=== PATIENT | female | born 1975 | race Caucasian/White ===

== ENCOUNTER 2020-05-26 20:30 | Emergency (ER) | payer BC, MEDICARE, SELFPAY ==
[2020-05-26 20:48] VITALS: BP 111/51; PULSE 88; PULSE 90; RESP 30; RESP 32; TEMP 36.8; O2SAT 95; O2SAT 96; BMI 48.5
--- NOTE | 2020-05-26 20:49 | XR_ITS ---
EXAMINATION: XR CHEST CLINICAL INFORMATION: with shortness of breath COMPARISON: 04/07/2020 TECHNIQUE: Frontal view of the chest was obtained. FINDINGS: Aside from some minimal right basilar atelectasis, no significant abnormality is noted involving the heart, lungs, mediastinum, bony thorax or soft tissues. IMPRESSION: No acute intrathoracic disease.
--- NOTE | 2020-05-26 20:49 | ECG_ITS ---
Test Reason : CP, SOB Blood Pressure : / mmHG Vent. Rate : 091 BPM Atrial Rate : 091 BPM P-R Int : 184 ms QRS Dur : 088 ms QT Int : 370 ms P-R-T Axes : 045 015 061 degrees QTc Int : 455 ms Normal sinus rhythm Normal ECG No previous ECGs available Referred By: Dalia Martínez Electronically Signed By:EMMANUELLE HEAD
--- NOTE | 2020-05-26 20:51 | ED_ITS ---
HPI - Chest Pain General Chief Complaint: Chest Pain Stated Complaint: SOB/CHEST PAIN Time Seen by Provider: 05/26/20 20:40 Source: patient History of Present Illness HPI narrative: Patient is a 45-year-old female with a history of prediabetes, hypertension, high cholesterol, history of smoking. Presents today with having chest pain. Patient claims the chest pain has been dull in nature radiates to her neck it is associated with no shortness of breath it is not associated with exertion. No fever no chills no coughing or congestion or upper respiratory sy mptoms. No diaphoresis. No travel history. No previous history of risk stratification. Patient denies any history of leg pain. No history of blood clots. No history of pulmonary emboli. No family history of pulmonary emboli. Patient's father did have a heart attack in his 40s. MD complaint: chest pain Onset (ago): hour(s) (8) Pain location: substernal Severity: moderate Pain scale (0-10): 5 Quality: tightness Risk Factors Coronary artery disease risk factors: diabetes, smoking history, hyperlipidemia, hypertension and family history of CAD before age 50 Thoracic aortic dissection risk factors: none Pulmonary embolism risk factors: morbid obesity Related Data On Oral Contraceptives: No Allergies Allergy/AdvReac Type Severity Reaction Status Date / Time Penicillins [PENICILLINS] Allergy Severe ANAPHYLAXIS Unverified 05/12/20 16:58 adhesive [ADHESIVE] Allergy Unknown RASH Unverified 05/12/20 16:58 artichoke [ARTICHOKE] Allergy Unknown RASH Unverified 05/12/20 16:58 carbamazepine [From TEGRETOL] Allergy Unknown MIGRAINES Unverified 05/12/20 16:58 cariprazine [From VRAYLAR] Allergy Unknown LEG CRAMPS Unverified 05/12/20 16:58 fentanyl [FENTANYL] Allergy Unknown RASH Unverified 05/12/20 16:58 lamotrigine [From LAMICTAL] Allergy Unknown RASH Unverified 05/12/20 16:58 lithium [LITHIUM] AdvReac Severe tremor and Unverified 05/12/20 16:58 falls Review of Systems Review of Systems: Yes all other systems are reviewed and are negative Eyes: Eyes: Reports as per HPI ENT: Reports system reviewed and no additional complaints, except as documented Cardiovascular: Cardiovascular: Reports as per HPI Respiratory: Respiratory: Reports as per HPI Gastrointestinal: Gastrointestinal: Reports as per HPI and Reports no additional gastrointestinal complaints Musculoskeletal: Musculoskeletal: Reports no additional musculoskeletal complaints Neurologic: Reports system reviewed and no additional complaints, except as documented Endocrine: Endocrine: Reports no additional endocrine complaints Hematologic/Lymphatic: Hematologic/Lymphatic: Reports no additional hematologic/lymphatic complaints Allergic/Immunologic: Allergic/Immunologic: Reports no additional allergic/immunologic complaints [facility] Social History Social History Alcohol intake: current Alcohol intake frequency: holidays/special occasions only Smoking Status: Current every day smoker Smoked in Last 30 Days: Yes Use of substances other than those prescribed or required for medical reasons: Yes Substance Use Type: Marijuana Advance Directives: No Advance Directives Information Provided: Yes Physical Exam Vital Signs and I&O and Narrative: Vital Signs and I&O: Vital Signs Temp 98.1 F 05/26/20 21:45 Pulse 85 05/26/20 21:45 Resp 16 05/26/20 21:45 BP 129/71 05/26/20 21:45 Pulse Ox 96 05/26/20 20:48 Intake & Output 05/26/20 05/26/20 05/27/20 06:59 18:59 06:59 Weight 140.614 kg Body Mass Index 48.5 Const: General: cooperative Orientation/consciousness: patient oriented x3 HENMT: Head: Yes normal to inspection General nose exam: Normal external nose present Eyes: General: appearance normal, both eyes and all related structures Neck: Neck: Yes normal visual inspection Chest: Chest palpation & inspection: normal inspection of the chest Resp: Effort & Inspection: normal respiratory effort Auscultation: clear to auscultation bilaterally Cardio: Jugular venous distension: no JVD Bruits: no abdominal aortic bruits GI: Inspection: Yes normal to inspection Palpation (GI): No Abdominal aortic bruit present and Soft to palpation Auscultation: normal bowel sounds : General: Yes no CVA tenderness Back/Spine/Pelvis: Back: no CVA tenderness Skin: General skin exam: no rashes or lesions noted Neuro: General: patient oriented x3 Extrem: General: Yes normal to inspection Psych: Appearance: grossly normal MDM - Chest Pain MDM Narrative Medical decision making narrative: Patient's chest pain atypical. However does have multiple cardiac risk factors. Patient's troponin is negative and pain is greater than 6 hours. Patient's D-dimer is less than 200 in the setting of low risk for PE patient unlikely to have pulmonary emboli. Patient's chest x-ray showed no evidence of pneumothorax no pneumonia. Will discharge patient home close follow-up on an outpatient basis. Differential Diagnosis Differential diagnosis: Likely fracture of rib, pneumothorax, stable angina, unstable angina pectoris, atypical chest pain, st elevation myocardial infarction and costochondritis Medical Records Data Attestation: I reviewed the patient's medical records. Lab Data Attestation: I reviewed the patient's lab results. Result diagrams: 05/26/20 21:27 05/26/20 21:27 Labs: Lab Results 05/26/20 05/26/20 05/26/20 Range/Units 21:27 21: 21: WBC 11.2 H (4.8-10.8) X10*3/uL RBC 4.02 L (4.20-5.50) X10*6/uL Hgb 12.4 (12.0-16.0) g/dl Hct 36.9 L (37-47) % MCV 91.8 (80-98) fL MCH 30.8 (27.0-33.0) pg MCHC 33.6 (31.0-35.0) g/dl RDW 13.2 (11.0-16.0) % Plt Count 250 (160-400) X10*3/uL MPV 9.6 (9.4-12.3) fL Immature Gran % (Auto) 0.3 (0.0-0.4) % Neut % (Auto) 61.8 (45-73) % Lymph % (Auto) 30.7 (20-40) % [place] % (Auto) 5.6 (2-11) % Eos % (Auto) 1.3 (0-4) % Baso % (Auto) 0.3 (0-2) % Neut # (Auto) 6.9 (2.0-8.3) X10*3/uL Lymph # (Auto) 3.4 (1.2-4.9) X10*3/uL [place] # (Auto) 0.6 (0.1-1.2) X10*3/uL Eos # (Auto) 0.1 (0.0-0.4) X10*3/uL Baso # (Auto) 0.0 (0.0-0.2) X10*3/uL Abs Immat Gran (auto) 0.03 (0.00-0.03) X10*3/uL Absolute Nucleated RBC 0.000 (0.0-0.012) X10*3/uL Nucleated RBC % (auto) 0.0 (0.0-0.2) /100WBC D-Dimer < 200 NG/ML Hold Blue Top SEE NOTE Sodium 141 (135-145) mmol/L Potassium 3.9 (3.3-5.1) mmol/l Chloride 105 (96-108) mmol/L Carbon Dioxide 27 (22-29) mmol/L Anion Gap 13 (12-20) BUN 10 (9-16) mg/dL Creatinine 0.78 (0.5-1.4) mg/dL Estim Creat Clear Calc 134.0 Estimated GFR > 60 Random Glucose 120 H (60-115) mg/dL Calcium 8.3 L (8.4-10.2) mg/dL Troponin I High Sens (<3.5-17.0) ng/L B-Natriuretic Peptide (<100) pg/mL Urine Color Urine Appearance Urine pH (5.0-8.0) Ur Specific [place] (1.005-1.025) Urine Protein (NEG-TRACE) MG/DL Urine Glucose (UA) (NEG) MG/DL Urine Ketones (NEG) MG/DL Urine Blood (NEG) Urine Nitrite (NEG) Ur Leukocyte Esterase (NEG) 05/26/20 05/26/20 Range/Units 21:27 21:53 WBC (4.8-10.8) X10*3/uL RBC (4.20-5.50) X10*6/uL Hgb (12.0-16.0) g/dl Hct (37-47) % MCV (80-98) fL MCH (27.0-33.0) pg MCHC (31.0-35.0) g/dl RDW (11.0-16.0) % Plt Count (160-400) X10*3/uL MPV (9.4-12.3) fL Immature Gran % (Auto) (0.0-0.4) % Neut % (Auto) (45-73) % Lymph % (Auto) (20-40) % [place] % (Auto) (2-11) % Eos % (Auto) (0-4) % Baso % (Auto) (0-2) % Neut # (Auto) (2.0-8.3) X10*3/uL Lymph # (Auto) (1.2-4.9) X10*3/uL [place] # (Auto) (0.1-1.2) X10*3/uL Eos # (Auto) (0.0-0.4) X10*3/uL Baso # (Auto) (0.0-0.2) X10*3/uL Abs Immat Gran (auto) (0.00-0.03) X10*3/uL Absolute Nucleated RBC (0.0-0.012) X10*3/uL Nucleated RBC % (auto) (0.0-0.2) /100WBC D-Dimer NG/ML Hold Blue Top Sodium (135-145) mmol/L Potassium (3.3-5.1) mmol/l Chloride (96-108) mmol/L Carbon Dioxide (22-29) mmol/L Anion Gap (12-20) BUN (9-16) mg/dL Creatinine (0.5-1.4) mg/dL Estim Creat Clear Calc Estimated GFR Random Glucose (60-115) mg/dL Calcium (8.4-10.2) mg/dL Troponin I High Sens < 3.5 (<3.5-17.0) ng/L B-Natriuretic Peptide 16 (<100) pg/mL Urine Color YELLOW Urine Appearance CLEAR Urine pH 6.5 (5.0-8.0) Ur Specific [place] 1.025 (1.005-1.025) Urine Protein NEG (NEG-TRACE) MG/DL Urine Glucose (UA) NEG (NEG) MG/DL Urine Ketones 5 (NEG) MG/DL Urine Blood NEG (NEG) Urine Nitrite NEG (NEG) Ur Leukocyte Esterase NEG (NEG) ECG Data ECG #1: Attestation: I personally reviewed and interpreted this ECG as follows: ECG interpretation date: 05/26/20 Interpretation: sinus heart rate of 90 OK QRS QT within normal limits there is no acute ST segment elevation noted. Scores Heart Score History: -0- slightly suspicious ECG: -0- normal Age: -0- < or = 45 Risk factory: -2- 3 or more risk factors or treated atherosclerosis Troponin: -0- < or = normal limit Score: 2 Risk: 1.7% Discharge Plan Discharge Clinical Impression: Chest pain, Atypical chest pain Patient Disposition: Home, Self-Care Instructions: Chest Pain (ED) Referrals: Christos Britt MD [Primary Care Provider] - 2 days
[2020-05-26 21:33] LABS: MANUAL DIFF FLAG NO
[2020-05-26 21:35] LABS: Basophils Percent Auto 0.3 % (0-2); Eosinophils Absolute Auto 0.1 X10*3/uL (0.0-0.4); Eosinophils Percent Auto 1.3 % (0-4); Hematocrit 36.9 % (37-47); Hemoglobin 12.4 g/dl (12.0-16.0); Imm Gran Abs Auto 0.03 X10*3/uL (0.00-0.03); Imm Gran Pct Auto 0.3 % (0.0-0.4); Lymphocytes Absolute Auto 3.4 X10*3/uL (1.2-4.9); Lymphocytes Percent Auto 30.7 % (20-40); Mean Corpuscular HGB Conc 33.6 g/dl (31.0-35.0); Mean Corpuscular Hemoglobin 30.8 pg (27.0-33.0); Mean Corpuscular Volume 91.8 fL (80-98); Mean Platelet Volume 9.6 fL (9.4-12.3); Monocytes Absolute Auto 0.6 X10*3/uL (0.1-1.2); Monocytes Percent Auto 5.6 % (2-11); Neutrophils Absolute Auto 6.9 X10*3/uL (2.0-8.3); Neutrophils Percent Auto 61.8 % (45-73); Platelet Count 250 X10*3/uL (160-400); Red Blood Count 4.02 X10*6/uL (4.20-5.50); Red Cell Distribution Width 13.2 % (11.0-16.0); White Blood Count 11.2 X10*3/uL (4.8-10.8)
[2020-05-26 21:45] VITALS: BP 129/71; PULSE 85; RESP 16; TEMP 36.7
[2020-05-26 21:52] LABS: D Dimer < 200 NG/ML
[2020-05-26 21:57] LABS: Anion Gap 13 (12-20); Blood Urea Nitrogen 10 mg/dL (9-16); Calcium 8.3 mg/dL (8.4-10.2); Carbon Dioxide 27 mmol/L (22-29); Chloride 105 mmol/L (96-108); Estimated Glomerular Filt Rate > 60; Glucose Random 120 mg/dL (60-115); Potassium 3.9 mmol/l (3.3-5.1); Sodium 141 mmol/L (135-145)
[2020-05-26] MEDS: Aspirin 81 MG TAB.CHEW 324 MG PO (21:58)
[2020-05-26 22:04] LABS: B Type Natriuretic Peptide 16 pg/mL (<100); Troponin-I High Sensitivity < 3.5 ng/L (<3.5-17.0)
[2020-05-26 22:04] LABS: Glucose Urine UA NEG (NEG); Leukocyte Esterase Urine NEG (NEG); Nitrite Urine NEG (NEG); PH 6.5 (5.0-8.0); Specific Gravity - Urine 1.025 (1.005-1.025); Urine Blood NEG (NEG); Urine Ketones 5 MG/DL (NEG); Urine Protein NEG (NEG-TRACE)
[2020-05-26 22:10] LABS: Appearance Urine CLEAR; Color Urine YELLOW
== END 2020-05-26 22:52 | disposition home or self-care (01) ==
PROVIDERS: Emergency Provider Emergency Medicine Emergency Medical Services; PCP Internal Medicine
DX: R07.89 Other chest pain (principal); I10 Essential (primary) hypertension; R73.03 Prediabetes; F17.200 Nicotine dependence, unspecified, uncomplicated
CPT/HCPCS: 36415; 71045; 80048; 81003; 83880; 84484; 85025; 85379; 93005; 93010; 99284

== ENCOUNTER 2020-06-01 09:39 | Outpatient (REF) | payer BC, MEDICARE, SELFPAY ==
[2020-06-01 10:33] LABS: MANUAL DIFF FLAG NO
[2020-06-01 10:40] LABS: Basophils Percent Auto 0.5 % (0-2); Eosinophils Absolute Auto 0.1 X10*3/uL (0.0-0.4); Eosinophils Percent Auto 0.6 % (0-4); Hematocrit 39.1 % (37-47); Hemoglobin 12.9 g/dl (12.0-16.0); Imm Gran Abs Auto 0.03 X10*3/uL (0.00-0.03); Imm Gran Pct Auto 0.3 % (0.0-0.4); Lymphocytes Absolute Auto 2.2 X10*3/uL (1.2-4.9); Mean Corpuscular Hemoglobin 30.7 pg (27.0-33.0); Mean Corpuscular Volume 93.1 fL (80-98); Mean Platelet Volume 9.8 fL (9.4-12.3); Monocytes Absolute Auto 0.4 X10*3/uL (0.1-1.2); Monocytes Percent Auto 4.8 % (2-11); Neutrophils Absolute Auto 6.1 X10*3/uL (2.0-8.3); Neutrophils Percent Auto 68.8 % (45-73); Platelet Count 262 X10*3/uL (160-400); Red Cell Distribution Width 13.3 % (11.0-16.0); White Blood Count 8.8 X10*3/uL (4.8-10.8)
[2020-06-07 16:35] LABS: Clozapine (Clozaril) 158 mcg/L; Norclozapine 106 mcg/L (25-400)
== END 2020-06-01 09:40 | disposition home or self-care (01) ==
LOC: HO.LABR 09:39
PROVIDERS: PCP Internal Medicine; Visit Provider Psychiatry & Neurology Psychiatry
DX: F31.4 Bipolar disorder, current episode depressed, severe, without psychotic features (principal)
CPT/HCPCS: 36415; 80159; 85025

== ENCOUNTER 2020-06-08 12:09 | Emergency (ER) | payer BC, MEDICARE, SELFPAY ==
[2020-06-08 14:20] VITALS: BP 135/78; PULSE 88; RESP 18; TEMP 37.1; O2SAT 97; BMI 48.5
--- NOTE | 2020-06-08 14:28 | ED_ITS ---
HPI - Abdominal Pain General Chief Complaint: Abdominal Pain Stated Complaint: stomach pain,vomiting Time Seen by Provider: 06/08/20 14:19 Source: patient Mode of arrival: ambulatory History of Present Illness HPI narrative: 45-year-old female with a past medical history of depression presenting to ED complaining of RLQ abdominal pain since yesterday with associated N/V. Reports decreased p.o. intake and constipation. Denies fever, chills, dysuria /hematuria MD elicited complaint: abdominal pain Related Data Allergies Allergy/AdvReac Type Severity Reaction Status Date / Time Penicillins [PENICILLINS] Allergy Severe ANAPHYLAXIS Verified 06/08/20 14:24 adhesive [ADHESIVE] Allergy Unknown RASH Verified 06/08/20 14:24 artichoke [ARTICHOKE] Allergy Unknown RASH Verified 06/08/20 14:24 carbamazepine [From TEGRETOL] Allergy Unknown MIGRAINES Verified 06/08/20 14:24 cariprazine [From VRAYLAR] Allergy Unknown LEG CRAMPS Verified 06/08/20 14:24 fentanyl [FENTANYL] Allergy Unknown RASH Verified 06/08/20 14:24 lamotrigine [From LAMICTAL] Allergy Unknown RASH Verified 06/08/20 14:24 lithium [LITHIUM] AdvReac Severe tremor and Verified 06/08/20 14:24 falls Review of Systems Review of Systems Constitutional: No Weight loss, No Fever, No Chills Cardiovascular: No Chest Pain, No SOB Respiratory: No Cough, No Sputum Gastrointestinal:+ Nausea, + Vomiting, No Diarrhea, + Constipation, + Abdominal pain Genitourinary: No Dysuria, No Urinary Frequency, No Hematuria, No Urgency, No Flank Pain, No Urinary Flow Changes Skin: No Skin Lesions, No rash Yes all other systems are reviewed and are negative Physical Exam Vital Signs: Vital Signs: Vital Signs Temp Pulse Resp BP Pulse Ox 06/08/20 16:44 16 06/08/20 16:18 98.3 F 88 16 120/72 98 06/08/20 14:20 98.8 F 88 18 135/78 97 Body Mass Index 48.5 Const: General: cooperative and healthy appearing Orientation/consciousness: patient oriented x3 Limitations: no limitations HENMT: Head: Yes normal to inspection Ears: hearing grossly normal bilaterally General nose exam: Normal external nose present Face and sinus: Yes normal facial exam Eyes: General: appearance normal, both eyes and all related structures EOM: EOMs intact bilaterally Neck: Neck: Yes normal visual inspection Resp: Effort & Inspection: normal respiratory effort Cardio: Rate: regular rate GI: Inspection: Yes normal to inspection Palpation (GI): Soft to palpation, Tenderness to palpation present (GI) in the epigastrum, in the RLQ and in the RUQ, no guarding and not rigid Skin: Rashes: no rashes Wounds: no wounds Neuro: General: patient oriented x3 Gait exam (Neuro): Normal gait present Extrem: General: Yes normal to inspection Course Course Course Narrative: -1632-- no leukocytosis, labs otherwise unremarkable, UA negative -- ED care transfer to [facility] pending CT MDM - Abdominal Pain MDM Narrative Medical decision making narrative: 45-year-old female with a past medical history of depression presenting to ED complaining of RLQ abdominal pain since yesterday with associated N/V. on exam VSS, NAD, abdomen soft diffusely tender greater in RLQ/ right side of abdomen. +R CVAT . Concern for appendicitis /cholecystitis /pancreatitis / possible renal stone. Rule out infectious / metabolic etiology. Lower concern for ovarian pathology/torsion Plan: Labs, UA, CT AP, symptomatic treatment/reassess Differential Diagnosis Differential diagnosis: Likely abdominal pain, acute appendicitis, bowel perforation, calculus of kidney, constipation, diverticulitis, gastroenteritis, gastritis, pancreatitis, peptic ulcer disease, renal colic and small bowel obstruction Lab Data Result diagrams: 06/08/20 15:06/08/20 15:01 Labs: Lab Results 06/08/20 06/08/20 06/08/20 Range/Units 15:01 15:01 15:01 WBC 9.4 (4.8-10.8) X10*3/uL RBC 4.31 (4.20-5.50) X10*6/uL Hgb 13.0 (12.0-16.0) g/dl Hct 39.4 (37-47) % MCV 91.4 (80-98) fL MCH 30.2 (27.0-33.0) pg MCHC 33.0 (31.0-35.0) g/dl RDW 12.9 (11.0-16.0) % Plt Count 257 (160-400) X10*3/uL MPV 9.5 (9.4-12.3) fL Immature Gran % (Auto) 0.3 (0.0-0.4) % Neut % (Auto) 65.2 (45-73) % Lymph % (Auto) 28.5 (20-40) % [place] % (Auto) 5.0 (2-11) % Eos % (Auto) 0.7 (0-4) % Baso % (Auto) 0.3 (0-2) % Lymph # (Auto) 2.7 (1.2-4.9) X10*3/uL [place] # (Auto) 0.5 (0.1-1.2) X10*3/uL Eos # (Auto) 0.1 (0.0-0.4) X10*3/uL Baso # (Auto) 0.0 (0.0-0.2) X10*3/uL Abs Immat Gran (auto) 0.03 (0.00-0.03) X10*3/uL Absolute Neuts (auto) 6.2 (2.0-8.3) X10*3/uL Absolute Nucleated RBC 0.000 (0.0-0.012) X10*3/uL Nucleated RBC % (auto) 0.0 (0.0-0.2) /100WBC Hold Blue Top SEE NOTE Sodium 139 (135-145) mmol/L Potassium 3.9 (3.3-5.1) mmol/l Chloride 105 (96-108) mmol/L Carbon Dioxide 27 (22-29) mmol/L Anion Gap 11 L (12-20) BUN 8 L (9-16) mg/dL Creatinine 0.69 (0.5-1.4) mg/dL Estim Creat Clear Calc 151.5 Estimated GFR > 60 Random Glucose 76 D (60-115) mg/dL Calcium 8.7 (8.4-10.2) mg/dL Magnesium 1.9 (1.6-2.6) mg/dL Total Bilirubin 0.5 (0.0-1.0) mg/dL Direct Bilirubin < 0.2 (0.0-0.5) mg/dL AST 14 (5-31) U/L ALT 16 (0-31) U/L Alkaline Phosphatase 82 (39-117) U/L Total Protein 6.8 (6.5-8.0) g/dL Albumin 4.1 (3.5-5.0) g/dL Lipase 24 (8-78) U/L Urine Color Urine Appearance Urine pH (5.0-8.0) Ur Specific [place] (1.005-1.025) Urine Protein (NEG-TRACE) MG/DL Urine Glucose (UA) (NEG) MG/DL Urine Ketones (NEG) MG/DL Urine Blood (NEG) Urine Nitrite (NEG) Ur Leukocyte Esterase (NEG) 06/08/20 Range/Units 16:21 WBC (4.8-10.8) X10*3/uL RBC (4.20-5.50) X10*6/uL Hgb (12.0-16.0) g/dl Hct (37-47) % MCV (80-98) fL MCH (27.0-33.0) pg MCHC (31.0-35.0) g/dl RDW (11.0-16.0) % Plt Count (160-400) X10*3/uL MPV (9.4-12.3) fL Immature Gran % (Auto) (0.0-0.4) % Neut % (Auto) (45-73) % Lymph % (Auto) (20-40) % [place] % (Auto) (2-11) % Eos % (Auto) (0-4) % Baso % (Auto) (0-2) % Lymph # (Auto) (1.2-4.9) X10*3/uL [place] # (Auto) (0.1-1.2) X10*3/uL Eos # (Auto) (0.0-0.4) X10*3/uL Baso # (Auto) (0.0-0.2) X10*3/uL Abs Immat Gran (auto) (0.00-0.03) X10*3/uL Absolute Neuts (auto) (2.0-8.3) X10*3/uL Absolute Nucleated RBC (0.0-0.012) X10*3/uL Nucleated RBC % (auto) (0.0-0.2) /100WBC Hold Blue Top Sodium (135-145) mmol/L Potassium (3.3-5.1) mmol/l Chloride (96-108) mmol/L Carbon Dioxide (22-29) mmol/L Anion Gap (12-20) BUN (9-16) mg/dL Creatinine (0.5-1.4) mg/dL Estim Creat Clear Calc Estimated GFR Random Glucose (60-115) mg/dL Calcium (8.4-10.2) mg/dL Magnesium (1.6-2.6) mg/dL Total Bilirubin (0.0-1.0) mg/dL Direct Bilirubin (0.0-0.5) mg/dL AST (5-31) U/L ALT (0-31) U/L Alkaline Phosphatase (39-117) U/L Total Protein (6.5-8.0) g/dL Albumin (3.5-5.0) g/dL Lipase (8-78) U/L Urine Color YELLOW Urine Appearance CLEAR Urine pH 6.5 (5.0-8.0) Ur Specific [place] 1.020 (1.005-1.025) Urine Protein NEG (NEG-TRACE) MG/DL Urine Glucose (UA) NEG (NEG) MG/DL Urine Ketones NEG (NEG) MG/DL Urine Blood NEG (NEG) Urine Nitrite NEG (NEG) Ur Leukocyte Esterase NEG (NEG) Discharge Plan Discharge Clinical Impression: Abdominal pain PMFSH Past Medical History Source: old records reviewed and nursing notes reviewed Social History Social History Alcohol intake: current Alcohol intake frequency: holidays/special occasions only Smoking Status: Current every day smoker Substance Use Type: Marijuana Advance Directives: No Advance Directives Information Provided: Yes
[2020-06-08] MEDS: Ketorolac Tromethamine 15 MG/ML VIAL IV (15:05)
[2020-06-08] MEDS: ondansetron HCL 4 MG/2 ML VIAL IVPUSH (15:05)
[2020-06-08] MEDS: 0.9 % Sodium Chloride 1,000 ML 999 ML IVCONT (15:05)
[2020-06-08 15:07] LABS: MANUAL DIFF FLAG NO
[2020-06-08 15:09] LABS: Basophils Percent Auto 0.3 % (0-2); Eosinophils Absolute Auto 0.1 X10*3/uL (0.0-0.4); Eosinophils Percent Auto 0.7 % (0-4); Hematocrit 39.4 % (37-47); Imm Gran Abs Auto 0.03 X10*3/uL (0.00-0.03); Imm Gran Pct Auto 0.3 % (0.0-0.4); Lymphocytes Absolute Auto 2.7 X10*3/uL (1.2-4.9); Lymphocytes Percent Auto 28.5 % (20-40); Mean Corpuscular Hemoglobin 30.2 pg (27.0-33.0); Mean Corpuscular Volume 91.4 fL (80-98); Mean Platelet Volume 9.5 fL (9.4-12.3); Monocytes Absolute Auto 0.5 X10*3/uL (0.1-1.2); Neutrophils Absolute Auto 6.2 X10*3/uL (2.0-8.3); Neutrophils Percent Auto 65.2 % (45-73); Platelet Count 257 X10*3/uL (160-400); Red Blood Count 4.31 X10*6/uL (4.20-5.50); Red Cell Distribution Width 12.9 % (11.0-16.0); White Blood Count 9.4 X10*3/uL (4.8-10.8)
[2020-06-08 15:46] LABS: Alanine Aminotransferase 16 U/L (0-31); Albumin Level 4.1 g/dL (3.5-5.0); Alkaline Phosphatase 82 U/L (39-117); Anion Gap 11 (12-20); Aspartate Amino Transferase 14 U/L (5-31); Bilirubin Direct < 0.2 mg/dL (0.0-0.5); Bilirubin Total 0.5 mg/dL (0.0-1.0); Blood Urea Nitrogen 8 mg/dL (9-16); Calcium 8.7 mg/dL (8.4-10.2); Carbon Dioxide 27 mmol/L (22-29); Chloride 105 mmol/L (96-108); Creatinine Clr Calc Pharmacy 151.5; Estimated Glomerular Filt Rate > 60; Glucose Random 76 mg/dL (60-115); Lipase 24 U/L (8-78); Magnesium 1.9 mg/dL (1.6-2.6); Potassium 3.9 mmol/l (3.3-5.1); Sodium 139 mmol/L (135-145); Total Protein 6.8 g/dL (6.5-8.0)
[2020-06-08 16:18] VITALS: BP 120/72; PULSE 88; RESP 16; TEMP 36.8; O2SAT 98
[2020-06-08 16:31] LABS: Appearance Urine CLEAR; Color Urine YELLOW; Glucose Urine UA NEG (NEG); Leukocyte Esterase Urine NEG (NEG); Nitrite Urine NEG (NEG); PH 6.5 (5.0-8.0); Urine Blood NEG (NEG); Urine Ketones NEG (NEG); Urine Protein NEG (NEG-TRACE)
--- NOTE | 2020-06-08 16:42 | CT_ITS ---
EXAMINATION: CT ABDOMEN AND PELVIS WITH CONTRAST CLINICAL INFORMATION: 45-year-old female with right-sided abdominal pain. COMPARISON: Abdominal ultrasound 04/21/[address] abdomen pelvis 10/08/2019 TECHNIQUE: Multidetector volumetric images were obtained from the superior aspect of the liver through the pubic symphysis following administration 85 mL of Omnipaque 350 intravenous contrast. Sagittal and coronal reformatted images were obtained on the technologist's workstation. Oral contrast: No This CT examination was performed using dose optimization techniques as appropriate, variously including the following: *Automated exposure control *Adjustment of mA and/or kV according to patient size (this includes techniques or standardized protocols for targeted exams where dose is matched to indication/reason for exam; i.e. extremities or head) *Use of iterative reconstruction technique DLP: 1192 mGy-cm FINDINGS: Visualized lung bases are well aerated. Similar cyst of the posterior left lung base. The liver demonstrates normal size, contour and attenuation. Stable small cyst of the left hepatic lobe. The gallbladder is normal in appearance. The pancreas, spleen and adrenal glands are unremarkable. Symmetrically enhancing kidneys. There is no hydronephrosis bilaterally. Dominant right 2.5 cm cyst. Smaller left renal hypodensities in too small to accurately characterize but appears stable. The stomach is decompressed and therefore not accurately evaluated. Normal caliber loops of small and large bowel. Normal appendix. Stable tiny fat-containing umbilical hernia. Nonaneurysmal abdominal aorta demonstrating only minimal atherosclerotic disease. The bladder is normally distended. Unremarkable CT appearance of the uterus. Left adnexal cysts again noted. No inguinal lymphadenopathy. No gross free pelvic fluid. Mild degenerative changes of the spine. IMPRESSION: -No CT evidence for acute abnormality within the abdomen or pelvis. -Hepatic and renal cysts again noted.
[2020-06-08 16:44] VITALS: RESP 16
[2020-06-08] MEDS: Morphine Sulfate 4 MG/ML CARTRIDGE 2 MG IVPUSH (16:44)
[2020-06-08] MEDS: iohexoL 350 MG/ML 100 ML INFUS..BTL IV (17:38)
[2020-06-08 18:22] VITALS: BP 124/70; PULSE 85; RESP 18; O2SAT 97
[2020-06-08 18:41] LABS: UPreg QC Valid YES; Urine Pregnancy NEGATIVE (NEGATIVE)
== END 2020-06-08 19:10 | disposition home or self-care (01) ==
PROVIDERS: Physician Assistant; Emergency Provider Emergency Medicine; PCP Internal Medicine
DX: R10.31 Right lower quadrant pain (principal); R11.10 Vomiting, unspecified; F17.200 Nicotine dependence, unspecified, uncomplicated; Z71.6 Tobacco abuse counseling; F12.90 Cannabis use, unspecified, uncomplicated
CPT/HCPCS: 36415; 74177; 80048; 80076; 81003; 81025; 83690; 83735; 85025; 96361; 96374; 96375; 99284; J1885; J2270; J2405

== ENCOUNTER 2020-06-15 10:25 | Outpatient (REF) | payer BC, MEDICARE, SELFPAY ==
[2020-06-15 11:46] LABS: MANUAL DIFF FLAG NO
[2020-06-15 11:53] LABS: Basophils Percent Auto 0.4 % (0-2); Eosinophils Absolute Auto 0.1 X10*3/uL (0.0-0.4); Eosinophils Percent Auto 0.6 % (0-4); Hematocrit 39.3 % (37-47); Hemoglobin 12.9 g/dl (12.0-16.0); Imm Gran Abs Auto 0.03 X10*3/uL (0.00-0.03); Imm Gran Pct Auto 0.3 % (0.0-0.4); Lymphocytes Absolute Auto 2.3 X10*3/uL (1.2-4.9); Lymphocytes Percent Auto 22.1 % (20-40); Mean Corpuscular HGB Conc 32.8 g/dl (31.0-35.0); Mean Corpuscular Hemoglobin 30.2 pg (27.0-33.0); Mean Platelet Volume 10.3 fL (9.4-12.3); Monocytes Absolute Auto 0.5 X10*3/uL (0.1-1.2); Neutrophils Absolute Auto 7.5 X10*3/uL (2.0-8.3); Neutrophils Percent Auto 71.6 % (45-73); Platelet Count 263 X10*3/uL (160-400); Red Blood Count 4.27 X10*6/uL (4.20-5.50); Red Cell Distribution Width 13.1 % (11.0-16.0); White Blood Count 10.5 X10*3/uL (4.8-10.8)
[2020-06-20 01:07] LABS: Clozapine (Clozaril) 143 mcg/L; Norclozapine 118 mcg/L (25-400)
== END 2020-06-15 10:26 | disposition home or self-care (01) ==
LOC: HO.LABR 10:25
PROVIDERS: Absent Provider Psychiatry & Neurology Psychiatry; Visit Provider Psychiatry & Neurology Psychiatry
DX: F31.4 Bipolar disorder, current episode depressed, severe, without psychotic features (principal)
CPT/HCPCS: 36415; 80159; 85025

== ENCOUNTER 2020-06-21 13:03 | Outpatient (REF) | payer BC, MEDICARE, SELFPAY ==
[2020-06-21 13:45] LABS: MANUAL DIFF FLAG NO
[2020-06-21 13:46] LABS: Basophils Percent Auto 0.3 % (0-2); Eosinophils Absolute Auto 0.1 X10*3/uL (0.0-0.4); Eosinophils Percent Auto 0.8 % (0-4); Hemoglobin 12.4 g/dl (12.0-16.0); Imm Gran Abs Auto 0.03 X10*3/uL (0.00-0.03); Imm Gran Pct Auto 0.3 % (0.0-0.4); Lymphocytes Absolute Auto 2.6 X10*3/uL (1.2-4.9); Lymphocytes Percent Auto 28.5 % (20-40); Mean Corpuscular HGB Conc 32.6 g/dl (31.0-35.0); Mean Corpuscular Hemoglobin 30.6 pg (27.0-33.0); Mean Corpuscular Volume 93.8 fL (80-98); Mean Platelet Volume 9.9 fL (9.4-12.3); Monocytes Absolute Auto 0.4 X10*3/uL (0.1-1.2); Monocytes Percent Auto 4.6 % (2-11); Neutrophils Percent Auto 65.5 % (45-73); Platelet Count 267 X10*3/uL (160-400); Red Blood Count 4.05 X10*6/uL (4.20-5.50); Red Cell Distribution Width 12.9 % (11.0-16.0); White Blood Count 9.2 X10*3/uL (4.8-10.8)
[2020-06-24 16:41] LABS: Clozapine (Clozaril) 95 mcg/L; Norclozapine 103 mcg/L (25-400)
== END 2020-06-21 13:04 | disposition home or self-care (01) ==
LOC: HO.LABR 13:03
PROVIDERS: Absent Provider Psychiatry & Neurology Psychiatry; PCP Internal Medicine; Visit Provider Psychiatry & Neurology Psychiatry
DX: F31.4 Bipolar disorder, current episode depressed, severe, without psychotic features (principal)
CPT/HCPCS: 36415; 80159; 85025

== ENCOUNTER 2020-06-22 18:12 | Emergency (ER) | payer BC, MEDICARE, SELFPAY ==
[2020-06-22 18:44] VITALS: BP 134/73; PULSE 80; RESP 16; TEMP 36.7; O2SAT 99; BMI 50.1
--- NOTE | 2020-06-22 19:46 | XR_ITS ---
EXAMINATION: XR SOFT TISSUE NECK CLINICAL INDICATION: Neck swelling. COMPARISON: None TECHNIQUE: 2 views of the soft tissue neck were obtained. FINDINGS: Soft tissue films of the neck demonstrate a normal larynx, pharynx and upper trachea. No soft tissue swelling or opaque foreign body is demonstrated. XR/XR soft tissue neck IMPRESSION: Unremarkable examination.
--- NOTE | 2020-06-22 19:57 | ED.URI ---
HPI - URI/Sore Throat General Chief Complaint: Upper Respiratory Symptoms Stated Complaint: Swollen Glands Time Seen by Provider: 06/22/20 19:38 Source: patient Mode of arrival: ambulatory Limitations: no limitations History of Present Illness HPI Narrative: 45yoF c No Sig PMHx presenting to the ED c c/o neck swelling that started today. Reports she was bit by a bee yesterday to her left elbow and she has never been bit by a bee in the past. Has been bit by wasps in the past. She believes she might be having allergic reaction. Denies any other symptoms complaints or concerns at this time. Related Data Previous Rx's Medication Instructions Recorded naproxen 500 mg PO BID PRN #20 tab 06/08/20 Allergies Allergy/AdvReac Type Severity Reaction Status Date / Time Penicillins [PENICILLINS] Allergy Severe ANAPHYLAXIS Verified 06/08/20 14:24 adhesive [ADHESIVE] Allergy Unknown RASH Verified 06/08/20 14:24 artichoke [ARTICHOKE] Allergy Unknown RASH Verified 06/08/20 14:24 carbamazepine [From TEGRETOL] Allergy Unknown MIGRAINES Verified 06/08/20 14:24 cariprazine [From VRAYLAR] Allergy Unknown LEG CRAMPS Verified 06/08/20 14:24 fentanyl [FENTANYL] Allergy Unknown RASH Verified 06/08/20 14:24 lamotrigine [From LAMICTAL] Allergy Unknown RASH Verified 06/08/20 14:24 lithium [LITHIUM] AdvReac Severe tremor and Verified 06/08/20 14:24 falls Review of Systems Review of Systems: Constitutional : No Fever, No Chills , no body aches, no recent illness Head/Face: + facial swelling, No facial redness ENT/Mouth : No oral/throat swelling, No Hoarseness, No Swallowing Difficulty Eyes: No Eye Pain, No Swelling, No Redness Cardiovascular : No Chest Pain, No SOB, No palpitations Respiratory : No Cough, No Sputum, No Wheezing, No Smoke Exposure, No Dyspnea Gastrointestinal : No Nausea, No Vomiting, No Diarrhea, No abdominal Pain Genitourinary : No Dysuria, No Urinary Frequency, No Hematuria Musculoskeletal : No joint pain, No Myalgias, No Joint Swelling Skin : No Skin Lesions, positive rash Neuro : No Weakness, No Numbness, No Headache, No dizziness, No tingling Psych : No Anxiety/Panic, No Depression Heme/Lymph: No Bruising, No Lymphadenopathy Endocrine : No Polyuria, No Polydipsia Denies changes in lotions or detergents. Denies new medications or any changes in medications. Denies drainage from rash. Denies any recent sick contacts or recent travel. Yes all other systems are reviewed and are negative REPLACED BY [facility] Past Medical History Attestation statement: The following information was validated with the patient. Social History Social History Alcohol intake: never Smoking Status: Current every day smoker Smoked in Last 30 Days: No Use of substances other than those prescribed or required for medical reasons: No Substance Use Type: Marijuana Advance Directives: No Advance Directives Information Provided: Yes Physical Exam Vital Signs: Vital Signs: Vital Signs Temp Pulse Resp BP Pulse Ox 06/22/20 20:28 89 17 130/89 96 06/22/20 18:44 98.0 F 80 16 134/73 99 Body Mass Index 50.1 vital signs have been reviewed as normal and appeared to be correct. Blood pressure normal. Heart rate normal. Respiration rate normal. Temperature normal. Oxygen saturation normal. Appearance: Alert. Oriented X3. No acute distress. Head: Normal external exam. Normocephalic. Atraumatic. No Waldron signs noted. No raccoon eyes noted Eyes: PERRLA. EOMI. Conjunctiva and sclera normal. Eyelids normal. ENT: EAC normal. TM's Normal. Pharynx normal. Uvula midline. Moist mucous membranes. No trismus noted. No drooling noted. No muffled voice noted. Neck: Normal inspection. Neck supple. FROM. + adenopathy. Thyroid Normal. No meningeal signs. No neck mass noted. CVS: Normal heart rate and rhythm. Heart sound normal. No murmurs noted. Pulses normal throughout. Respiratory: No respiratory distress. Painless inspiration. Breath sounds normal. No wheezes/rales/rhonchi noted. Chest nontender. No accessory muscle usage noted or decreased air movement noted. Abdomen: Soft and nontender. Bowel sounds normal in all 4 quadrants. No distention noted. No organomegaly noted. No visible injury noted. Back: No CVA tenderness. Full range of motion noted. Skin: Skin warm and dry. Normal skin color. Normal skin turgor. No rashes/lesions/lacerations noted. Extremities: No lower extremity edema. Extremities exhibit normal range of motion. Extremities nontender. Neuro: Oriented X 3. No motor deficit. No sensory deficit. Reflexes normal. Course Course Course Narrative: IMP/Plan: Allergic rxn. Not anaphylaxis. Not sepsis/ infectious etiology. Patient well appearing in no acute distress, breathing easily without throat symptoms. Speaking full sentences, and handling secretions without difficulty. There is no obvious threat to airway. Lungs are CTA in all valdez. No signs of angioedema, stridor, airway compromise, anaphylaxis or anaphylactic shock. Not c/w SSSS/ TEN/ Eryth multiforme/ Sarmiento Johnsons. Given HPI and PE - Will watch and observe. If patient continues to be symptom free - will d/c with return precautions. Patient understands and agrees with plan Reevaluation(s) Reevaluation #1: Soft tissue neck x-ray obtained and reviewed and no acute processes noted. Patient not having any difficulty breathing, no drooling, no trismus. No lymphadenopathy noted. Will DC home with steroids and instructions to return if any new or worsening symptoms and to follow up with primary care provider. Patient understands agrees with this plan. Time: 21:17 Discharge Plan Discharge Prescriptions: No Action naproxen 500 mg tablet 500 mg PO BID PRN (Reason: pain) Qty: 20 RF: 0
[2020-06-22] MEDS: predniSONE 20 MG TABLET 60 MG PO (20:26)
[2020-06-22 20:28] VITALS: BP 130/89; PULSE 89; RESP 17; O2SAT 96
== END 2020-06-22 21:25 | disposition home or self-care (01) ==
PROVIDERS: Emergency Provider Internal Medicine; PCP Internal Medicine
DX: R22.1 Localized swelling, mass and lump, neck (principal); Z79.899 Other long term (current) drug therapy; F17.200 Nicotine dependence, unspecified, uncomplicated; F12.90 Cannabis use, unspecified, uncomplicated; Z71.6 Tobacco abuse counseling
CPT/HCPCS: 70360; 87071; 87880; 99283; 99284

== ENCOUNTER 2020-06-29 13:38 | Emergency (ER) | payer BC, MEDICARE, SELFPAY ==
[2020-06-29 13:40] VITALS: BP 142/73; PULSE 98; RESP 16; TEMP 36.6; O2SAT 98; BMI 50.1
--- NOTE | 2020-06-29 15:59 | ED.ABDPAIN ---
HPI - Abdominal Pain General Chief Complaint: Abdominal Pain Stated Complaint: FLANK PAIN Time Seen by Provider: 06/29/20 13:48 Source: patient Mode of arrival: ambulatory Limitations: no limitations History of Present Illness HPI narrative: 45 yo female well known to use with past medical history of bipolar disease, JILLIAN, GERD, HLD, HTN, pre-diabetes, PCOS, h/o migraines/renal colic here with lower abdominal pain with radiation to the left back, nausea, dysuria, frequency x several days. Had UA which showed UTI outpatient and started on macrobid. Took 2 doses but continues to have symptoms. MD elicited complaint: abdominal pain and flank pain Pertinent past history: other (current UTI) Onset (ago): day(s) Pain Consistency: constant Location: L flank and suprapubic Severity: moderate Quality: sharp Migration to: no migration Exacerbating factors: nothing Relieving factors: nothing Associated symptoms: nausea and other (urinary frequency/dysuria ) Related Data Previous Rx's Medication Instructions Recorded naproxen 500 mg PO BID PRN #20 tab 06/08/20 prednisone 40 mg PO DAILY 5 Days #10 tab NS 06/22/20 ketorolac 10 mg PO Q8H PRN #10 tab 06/29/20 phenazopyridine [Pyridium] 100 mg PO TID PRN #10 tab 06/29/20 Allergies Allergy/AdvReac Type Severity Reaction Status Date / Time Penicillins [PENICILLINS] Allergy Severe ANAPHYLAXIS Verified 06/08/20 14:24 adhesive [ADHESIVE] Allergy Unknown RASH Verified 06/08/20 14:24 artichoke [ARTICHOKE] Allergy Unknown RASH Verified 06/08/20 14:24 carbamazepine [From TEGRETOL] Allergy Unknown MIGRAINES Verified 06/08/20 14:24 cariprazine [From VRAYLAR] Allergy Unknown LEG CRAMPS Verified 06/08/20 14:24 fentanyl [FENTANYL] Allergy Unknown RASH Verified 06/08/20 14:24 lamotrigine [From LAMICTAL] Allergy Unknown RASH Verified 06/08/20 14:24 lithium [LITHIUM] AdvReac Severe tremor and Verified 06/08/20 14:24 falls Review of Systems Review of Systems Yes all other systems are reviewed and are negative Constitutional: Reports no additional constitutional complaints, Denies body ache(s), Denies chills, Denies fever(s), Denies headache(s) and Denies weakness Eyes: Reports no additional eye complaints and Denies change in vision Reports system reviewed and no additional complaints, except as documented, Denies dizziness, Denies headache(s), Denies nasal congestion, Denies nasal discharge and Denies neck pain Cardiovascular: Reports no additional cardiovascular complaints, Denies chest pain, Denies leg edema and Denies dyspnea Respiratory: Reports no additional respiratory complaints, Denies cough and Denies dyspnea Gastrointestinal: Reports no additional gastrointestinal complaints, Reports abdominal pain, Denies diarrhea, Reports nausea and Denies vomiting Genitourinary: Reports no additional female genitourinary complaints, Denies difficulty voiding, Reports dysuria, Denies urinary incontinence, Denies urinary hesitancy, Denies urinary urgency and Denies vaginal discharge Comments: +frequency Musculoskeletal: Reports no additional musculoskeletal complaints, Denies back pain, Denies arthralgias, Denies joint swelling, Denies neck pain, Denies numbness and Denies tingling Skin/Breast: Reports system reviewed and no additional complaints, except as docu and Denies rash Reports system reviewed and no additional complaints, except as documented, Denies Abnormal speech present, Denies dizziness, Denies headache(s), Denies numbness, Denies tingling and Denies weakness Physical Exam Vital Signs: Vital Signs: Vital Signs Temp Pulse Resp BP Pulse Ox 06/29/20 13:40 97.8 F 98 16 142/73 H 98 Body Mass Index 50.1 Const: General: cooperative, healthy appearing, comfortable and no acute distress Orientation/consciousness: patient oriented x3 Limitations: no limitations HENMT: Head: Yes normal to inspection Ears: hearing grossly normal bilaterally General nose exam: Normal external nose present Face and sinus: Yes normal facial exam Mouth: Normal oral and palatal mucosa present Throat: Yes posterior oropharynx normal Eyes: General: appearance normal, both eyes and all related structures Pupils: Equal, round and reactive pupils present Neck: Neck: Yes normal visual inspection Chest: Chest palpation & inspection: normal inspection of the chest Resp: Effort & Inspection: normal respiratory effort Auscultation: clear to auscultation bilaterally Cardio: Rate: regular rate Rhythm: regular rhythm Peripheral pulses: Peripheral pulses 2+ throughout GI: Other: mild suprapubic discomfort., No other focal abdominal pain Inspection: Yes normal to inspection Palpation (GI): Soft to palpation Auscultation: normal bowel sounds : General: Yes CVA tenderness ( left, mild) Back/Spine/Pelvis: Other: Left lumbar soft tissue tenderness with no midline tenderness, step offs or deformities Back: CVA tenderness ( left, mild) Thoracic/Lumbar Spine: thoracic and lumbar spine normal to inspection Skin: General skin exam: no rashes or lesions noted Neuro: General: patient oriented x3, no focal motor deficits and normal sensation to monofilament Cranial nerves: Yes Equal, round and reactive pupils present Cognition (Neuro): normal cognition Speech: No Abnormal speech present Gait exam (Neuro): Normal gait present Motor exam (neuro): 5/5 motor strength present throughout Extrem: General: Yes normal to inspection Course Course Course Narrative: Patient here with complaints of urinary symptoms, left-sided back pain and nausea. Currently on Macrobid for presumed UTI. UA and urine here negative. Patient had a CT on June 10 which was unremarkable. Discussed findings with patient. Offered pelvic but patient declined. Denies sexual activity or concern for STD. She can continue the antibiotic as she has symptoms. Will trial pyridium to help with the symptoms. Back pain likely lumbar strain. Will give toradol IM and re-assess. 1805-Pt reports feeling improved. will discharge home with supportive care, f.u with urology as needed. MDM - Abdominal Pain Lab Data Labs: Lab Results 06/29/20 Range/Units 16:12 Urine Color YELLOW Urine Appearance CLEAR Urine pH 6.5 (5.0-8.0) Ur Specific [place] 1.010 (1.005-1.025) Urine Protein NEG (NEG-TRACE) MG/DL Urine Glucose (UA) NEG (NEG) MG/DL Urine Ketones NEG (NEG) MG/DL Urine Blood TRACE (NEG) Urine Nitrite NEG (NEG) Ur Leukocyte Esterase NEG (NEG) Urine RBC 1-4 (0) /HPF Urine WBC 0 (0-4) /HPF Ur Squamous Epith Cells TRACE /LPF Urine Bacteria NONE /LPF Urine Test NEGATIVE (NEGATIVE) Discharge Plan Discharge Clinical Impression: Lumbar strain Qualifiers: Encounter type: initial encounter Qualified Code(s): S39.012A - Strain of muscle, fascia and tendon of lower back, initial encounter Abdominal pain Qualifiers: Abdominal location: unspecified location Qualified Code(s): R10.9 - Unspecified abdominal pain Patient Disposition: Home, Self-Care Instructions: Low Back Strain (ED), Abdominal Pain (ED) Additional Instructions: If continuing to have symptoms please follow-up with your urologist Prescriptions: New ketorolac 10 mg tablet 10 mg PO Q8H PRN (Reason: pain) Qty: 10 RF: 0 phenazopyridine [Pyridium] 100 mg tablet 100 mg PO TID PRN (Reason: pain) Qty: 10 RF: 0 No Action prednisone 20 mg tablet 40 mg PO DAILY 5 Days Qty: 10 RF: 0 naproxen 500 mg tablet 500 mg PO BID PRN (Reason: pain) Qty: 20 RF: 0 Referrals: Christos Britt MD [Primary Care Provider] - 2 days Interventions: ED Discharge Assessment Last Done: 06/29/20 18:07 Discharge Date/Time: 06/29/20 18:07 [facility] Past Medical History Attestation statement: The following information was validated with the patient. Source: obtained from family and nursing notes reviewed Medical History Bipolar disease, chronic GERD (gastroesophageal reflux disease) High cholesterol Hypertension Migraines Obstructive sleep apnea PCOS (polycystic ovarian syndrome) Pre-diabetes Renal colic Social History Social History Alcohol intake: never Smoking Status: Current every day smoker Substance Use Type: Marijuana Advance Directives: No Advance Directives Information Provided: Yes
[2020-06-29 16:22] LABS: Glucose Urine UA NEG (NEG); Leukocyte Esterase Urine NEG (NEG); Nitrite Urine NEG (NEG); PH 6.5 (5.0-8.0); Urine Blood TRACE (NEG); Urine Ketones NEG (NEG); Urine Protein NEG (NEG-TRACE)
[2020-06-29 16:25] LABS: Appearance Urine CLEAR; Color Urine YELLOW
[2020-06-29 16:27] LABS: UPreg QC Valid YES; Urine Pregnancy NEGATIVE (NEGATIVE)
[2020-06-29 16:30] LABS: Squamous Epithelial Cell Urine TRACE /LPF; WBC Urine 0 /HPF (0-4)
[2020-06-29] MEDS: Ketorolac Tromethamine 60 MG/2 ML VIAL IM (17:25)
[2020-06-29] MEDS: Phenazopyridine HCL 200 MG TABLET PO (17:25)
== END 2020-06-29 18:07 | disposition home or self-care (01) ==
PROVIDERS: Nurse Practitioner Family; Emergency Provider Emergency Medicine; PCP Internal Medicine
DX: S39.012A Strain of muscle, fascia and tendon of lower back, initial encounter (principal); N39.0 Urinary tract infection, site not specified; R10.9 Unspecified abdominal pain; X58.XXXA Exposure to other specified factors, initial encounter; Y93.9 Activity, unspecified; Y92.9 Unspecified place or not applicable; Y99.9 Unspecified external cause status; Z79.899 Other long term (current) drug therapy
CPT/HCPCS: 81001; 81025; 96372; 99283; 99284; J1885

== ENCOUNTER 2020-06-30 11:25 | Outpatient (REF) | payer BC, MEDICARE, SELFPAY ==
[2020-06-30 11:59] LABS: MANUAL DIFF FLAG NO
[2020-06-30 12:08] LABS: Basophils Absolute Auto 0.1 X10*3/uL (0.0-0.2); Basophils Percent Auto 0.4 % (0-2); Eosinophils Percent Auto 0.3 % (0-4); Hematocrit 37.8 % (37-47); Hemoglobin 12.7 g/dl (12.0-16.0); Imm Gran Abs Auto 0.04 X10*3/uL (0.00-0.03); Imm Gran Pct Auto 0.3 % (0.0-0.4); Lymphocytes Absolute Auto 4.4 X10*3/uL (1.2-4.9); Lymphocytes Percent Auto 35.1 % (20-40); Mean Corpuscular HGB Conc 33.6 g/dl (31.0-35.0); Mean Corpuscular Hemoglobin 30.8 pg (27.0-33.0); Mean Corpuscular Volume 91.5 fL (80-98); Mean Platelet Volume 10.1 fL (9.4-12.3); Monocytes Absolute Auto 0.8 X10*3/uL (0.1-1.2); Monocytes Percent Auto 6.4 % (2-11); Neutrophils Absolute Auto 7.3 X10*3/uL (2.0-8.3); Neutrophils Percent Auto 57.5 % (45-73); Platelet Count 262 X10*3/uL (160-400); Red Blood Count 4.13 X10*6/uL (4.20-5.50); Red Cell Distribution Width 12.8 % (11.0-16.0); White Blood Count 12.7 X10*3/uL (4.8-10.8)
[2020-07-04 11:51] LABS: Clozapine (Clozaril) 166 mcg/L; Norclozapine 112 mcg/L (25-400)
== END 2020-06-30 11:26 | disposition home or self-care (01) ==
LOC: HO.LAB 11:25
PROVIDERS: PCP Psychiatry & Neurology Psychiatry; Visit Provider Psychiatry & Neurology Psychiatry
DX: F31.4 Bipolar disorder, current episode depressed, severe, without psychotic features (principal)
CPT/HCPCS: 36415; 80159; 85025

== ENCOUNTER 2020-07-06 15:05 | Outpatient (REF) | payer BC, MEDICARE, SELFPAY ==
[2020-07-06 16:09] LABS: MANUAL DIFF FLAG NO
[2020-07-06 16:14] LABS: Basophils Percent Auto 0.4 % (0-2); Eosinophils Absolute Auto 0.1 X10*3/uL (0.0-0.4); Eosinophils Percent Auto 0.9 % (0-4); Hemoglobin 12.6 g/dl (12.0-16.0); Imm Gran Abs Auto 0.02 X10*3/uL (0.00-0.03); Imm Gran Pct Auto 0.2 % (0.0-0.4); Lymphocytes Absolute Auto 2.8 X10*3/uL (1.2-4.9); Lymphocytes Percent Auto 28.4 % (20-40); Mean Corpuscular HGB Conc 32.3 g/dl (31.0-35.0); Mean Corpuscular Hemoglobin 29.6 pg (27.0-33.0); Mean Corpuscular Volume 91.8 fL (80-98); Mean Platelet Volume 10.5 fL (9.4-12.3); Monocytes Absolute Auto 0.5 X10*3/uL (0.1-1.2); Monocytes Percent Auto 5.2 % (2-11); Neutrophils Absolute Auto 6.5 X10*3/uL (2.0-8.3); Neutrophils Percent Auto 64.9 % (45-73); Platelet Count 263 X10*3/uL (160-400); Red Blood Count 4.25 X10*6/uL (4.20-5.50); Red Cell Distribution Width 12.9 % (11.0-16.0)
[2020-07-11 19:11] LABS: Clozapine (Clozaril) 211 mcg/L; Norclozapine 157 mcg/L (25-400)
== END 2020-07-06 15:06 | disposition home or self-care (01) ==
LOC: HO.LABR 15:05
PROVIDERS: Absent Provider Psychiatry & Neurology Psychiatry; PCP Internal Medicine; Visit Provider Psychiatry & Neurology Psychiatry
DX: F31.4 Bipolar disorder, current episode depressed, severe, without psychotic features (principal); Z79.899 Other long term (current) drug therapy
CPT/HCPCS: 36415; 80159; 85025

== ENCOUNTER 2020-07-08 10:57 | Emergency (ER) | payer BC, MEDICARE, SELFPAY ==
[2020-07-08 11:04] VITALS: BP 197/108; PULSE 102; RESP 16; TEMP 36.3; O2SAT 97; BMI 50.1
--- NOTE | 2020-07-08 11:10 | PC.NURSE ---
JUAN C LOW AT BEDSIDE FOR EXAM
--- NOTE | 2020-07-08 11:17 | CT_ITS ---
EXAMINATION: CT SOFT TISSUE NECK WITHOUT CONTRAST CLINICAL INFORMATION: Left-sided swelling and dysphagia COMPARISON: None TECHNIQUE: Helical imaging was performed in the axial plane with generation of coronal and sagittal reformatted images. This CT examination was performed using dose optimization techniques as appropriate, variously including the following: *Automated exposure control *Adjustment of mA and/or kV according to patient size (this includes techniques or standardized protocols for targeted exams where dose is matched to indication/reason for exam; i.e. extremities or head) *Use of iterative reconstruction technique DLP: 1360 mGy-cm FINDINGS: No cervical adenopathy is identified. There is a fatty infiltration of the parotid glands. Both parotid glands appear slightly prominent. The right parotid gland measures 3 x 4.8 x 3.8 cm in transverse AP and longitudinal dimension. The left parotid gland measures 3.6 x 5.6 x 5 cm in transverse first AP and longitudinal dimension. No parotid stone or mass is seen. The surrounding soft tissues are normal. The submandibular glands are normal. No contour abnormality or pathologic enhancement is seen within the oral cavity or pharyngeal mucosal space. The laryngeal structures are normal. The parapharyngeal fat is preserved. No extra mucosal soft tissue mass or fluid collection is seen. No retropharyngeal fluid collection is seen. The thyroid gland is normal. The superior mediastinum is unremarkable. The lung apices are clear. The mastoid air cells and visualized portions of the paranasal sinuses are well-aerated. The temporomandibular joints are normal. No periapical disease is identified. No osseous abnormalities are seen. The imaged portions of the brain parenchyma are unremarkable. CT/CT soft tissue neck wo con IMPRESSION: Fatty replacement of the parotid glands. The parotid glands are slightly prominent, left greater than right. No focal mass, stone or inflammatory changes is seen. Otherwise unremarkable exam.
--- NOTE | 2020-07-08 11:20 | ED.GENADULT ---
HPI - General Adult General Chief complaint: General Medical Stated complaint: FACIAL SWELLING Time Seen by Provider: 07/08/20 11:17 Source: patient Mode of arrival: ambulatory Limitations: no limitations History of Present Illness HPI narrative: 45 y/o female with history of bipolar disorder, JILLIAN, GERD, HTN, HLD, pre-DM, PCOS, migraines, renal colic who presents with recurrent left sided neck swelling and tenderness. She was seen here on 06/22 for similar presentation. She had XR soft tissue that was normal. She was started on prednisone with improvement in symptoms. She was also on Cipro recently for a UTI. She states the swelling started again yesterday and she is having a difficult time handling her secretions. She is on Clozaril and has excessive salivation at baseline. She states she now has difficulty swallowing both liquids and solids. No fevers at home. Voice is normal. MD complaint: neck swelling w/ difficulty swallowing Location: face and neck Radiation: non-radiation Severity: moderate Severity scale (1-10): 5 Quality: aching Pain Consistency: constant Relieving factors: none Exacerbating factors: eating Associated symptoms: denies other symptoms Treatments prior to arrival: none Related Data Previous Rx's Medication Instructions Recorded naproxen 500 mg PO BID PRN #20 tab 06/08/20 prednisone 40 mg PO DAILY 5 Days #10 tab NS 06/22/20 ketorolac 10 mg PO Q8H PRN #10 tab 06/29/20 phenazopyridine [Pyridium] 100 mg PO TID PRN #10 tab 06/29/20 doxycycline monohydrate 100 mg PO BID #14 cap 07/08/20 prednisone 40 mg PO DAILY #10 tab 07/08/20 Allergies Allergy/AdvReac Type Severity Reaction Status Date / Time Penicillins [PENICILLINS] Allergy Severe ANAPHYLAXIS Verified 06/08/20 14:24 adhesive [ADHESIVE] Allergy Unknown RASH Verified 06/08/20 14:24 artichoke [ARTICHOKE] Allergy Unknown RASH Verified 06/08/20 14:24 carbamazepine [From TEGRETOL] Allergy Unknown MIGRAINES Verified 06/08/20 14:24 cariprazine [From VRAYLAR] Allergy Unknown LEG CRAMPS Verified 06/08/20 14:24 fentanyl [FENTANYL] Allergy Unknown RASH Verified 06/08/20 14:24 lamotrigine [From LAMICTAL] Allergy Unknown RASH Verified 06/08/20 14:24 lithium [LITHIUM] AdvReac Severe tremor and Verified 06/08/20 14:24 falls Review of Systems Review of Systems: Constitutional: No Fever, No Chills ENT/Mouth: No sore throat, No Rhinorrhea, + Swallowing Difficulty Eyes: No Eye Pain, No Swelling, No Redness Cardiovascular: No Chest Pain, + SOB (chronic) Respiratory: No Cough, No Sputum, No Wheezing, No dyspnea Gastrointestinal: No Nausea, No Vomiting, No Diarrhea, No abdominal Pain Musculoskeletal: No joint pain, No Myalgias Skin: No Skin Lesions, No rash Neuro: No Weakness, No Numbness, No Dizziness, No Headache Psych: No Anxiety/Panic, No Depression Heme/Lymph: No Bruising, + Lymphadenopathy PMFSH Past Medical History Attestation statement: The following information was validated with the patient. Medical History Anxiety Bipolar disease, chronic Depression GERD (gastroesophageal reflux disease) High cholesterol Hypertension Migraines Obstructive sleep apnea PCOS (polycystic ovarian syndrome) Pre-diabetes Renal colic Social History Social History Alcohol intake: never Smoking Status: Current every day smoker Substance Use Type: Marijuana Advance Directives: Yes Advance Directives Information Provided: Yes Advance Directives on File: No Physical Exam Vital Signs: Vital Signs: Last Vital Signs Temp 97.3 F 07/08/20 11:04 Pulse 102 H 07/08/20 11:04 Resp 16 07/08/20 11:04 BP 197/108 H 07/08/20 11:04 Pulse Ox 97 07/08/20 11:04 Body Mass Index 50.1 Appearance: Alert. Oriented X3. No acute distress. HEENT: left sided neck and facial swelling at the angle of the mandible with mild tenderness. no skin changes. normal oral mucosa. normal palpable thyroid. CVS: Normal heart rate and rhythm. Pulses normal. Respiratory: No respiratory distress. Skin: Skin warm and dry. Normal skin color. Normal skin turgor. No rashes. Neuro: Oriented X 3. No motor deficit. No sensory deficit. Course Course Course Narrative: 45 y/o presenting with left sided neck/face swelling. Seen here for the same - treated with steroids with improvement but recurred yesterday. CT scan shows enlarged parotid glands without stone or obstruction. No mass obstructing the airway. Will treat for possible vrial or bacterial etiology with course of abx and steroids. Patient will f/u with her PCP for further management. Stable for d/c. Critical Care Time Critical Care Time Critical Care Time: No Discharge Plan Discharge Clinical Impression: Sialadenitis Patient Disposition: Home, Self-Care Instructions: Sialoadenitis (ED) Additional Instructions: Your CT scan today did not show any mass in your neck. Your parotid (or salivary glands) were slightly enlarged but there is no obstruction or stone. Recommend eating sour candy and donn throughout the day to help increase your saliva production. It is possible the enlargement of the glands is bacterial or viral so we are going to treat you with a course of antibiotics and steroids. Follow up with your Primary Care Doctor. Prescriptions: New prednisone 20 mg tablet 40 mg PO DAILY Qty: 10 RF: 0 doxycycline monohydrate 100 mg capsule 100 mg PO BID Qty: 14 RF: 0 No Action prednisone 20 mg tablet 40 mg PO DAILY 5 Days Qty: 10 RF: 0 ketorolac 10 mg tablet 10 mg PO Q8H PRN (Reason: pain) Qty: 10 RF: 0 phenazopyridine [Pyridium] 100 mg tablet 100 mg PO TID PRN (Reason: pain) Qty: 10 RF: 0 naproxen 500 mg tablet 500 mg PO BID PRN (Reason: pain) Qty: 20 RF: 0 Discharge Date/Time: 07/08/20 12:32
== END 2020-07-08 12:32 | disposition home or self-care (01) ==
PROVIDERS: Emergency Provider Emergency Medicine; PCP Internal Medicine
DX: K11.20 Sialoadenitis, unspecified (principal); R22.1 Localized swelling, mass and lump, neck; I10 Essential (primary) hypertension; F12.90 Cannabis use, unspecified, uncomplicated; F17.200 Nicotine dependence, unspecified, uncomplicated; Z71.6 Tobacco abuse counseling; Z79.899 Other long term (current) drug therapy
CPT/HCPCS: 70490; 99283

== ENCOUNTER 2020-07-13 12:12 | Outpatient (REF) | payer BC, MEDICARE, SELFPAY ==
[2020-07-13 13:18] LABS: MANUAL DIFF FLAG NO
[2020-07-13 13:22] LABS: Basophils Percent Auto 0.2 % (0-2); Eosinophils Absolute Auto 0.1 X10*3/uL (0.0-0.4); Eosinophils Percent Auto 0.6 % (0-4); Hematocrit 39.6 % (37-47); Hemoglobin 13.2 g/dl (12.0-16.0); Imm Gran Abs Auto 0.02 X10*3/uL (0.00-0.03); Imm Gran Pct Auto 0.2 % (0.0-0.4); Lymphocytes Absolute Auto 2.2 X10*3/uL (1.2-4.9); Lymphocytes Percent Auto 25.9 % (20-40); Mean Corpuscular HGB Conc 33.3 g/dl (31.0-35.0); Mean Corpuscular Hemoglobin 30.5 pg (27.0-33.0); Mean Corpuscular Volume 91.5 fL (80-98); Mean Platelet Volume 10.7 fL (9.4-12.3); Monocytes Absolute Auto 0.3 X10*3/uL (0.1-1.2); Monocytes Percent Auto 4.1 % (2-11); Neutrophils Absolute Auto 5.7 X10*3/uL (2.0-8.3); Platelet Count 249 X10*3/uL (160-400); Red Blood Count 4.33 X10*6/uL (4.20-5.50); Red Cell Distribution Width 12.6 % (11.0-16.0); White Blood Count 8.3 X10*3/uL (4.8-10.8)
[2020-07-19 12:22] LABS: Clozapine (Clozaril) 161 mcg/L; Norclozapine 137 mcg/L (25-400)
== END 2020-07-13 12:13 | disposition home or self-care (01) ==
LOC: HO.LABR 12:12
PROVIDERS: Referring Provider Psychiatry & Neurology Psychiatry; Visit Provider Psychiatry & Neurology Psychiatry
DX: F31.4 Bipolar disorder, current episode depressed, severe, without psychotic features (principal)
CPT/HCPCS: 36415; 80159; 85025

== ENCOUNTER 2020-07-19 13:53 | Outpatient (REF) | payer BC, MEDICARE, SELFPAY ==
[2020-07-19 14:30] LABS: MANUAL DIFF FLAG NO
[2020-07-19 14:32] LABS: Basophils Percent Auto 0.3 % (0-2); Eosinophils Absolute Auto 0.1 X10*3/uL (0.0-0.4); Eosinophils Percent Auto 0.6 % (0-4); Hematocrit 38.6 % (37-47); Imm Gran Abs Auto 0.04 X10*3/uL (0.00-0.03); Imm Gran Pct Auto 0.3 % (0.0-0.4); Lymphocytes Absolute Auto 2.8 X10*3/uL (1.2-4.9); Lymphocytes Percent Auto 23.9 % (20-40); Mean Corpuscular HGB Conc 33.7 g/dl (31.0-35.0); Mean Corpuscular Hemoglobin 30.5 pg (27.0-33.0); Mean Corpuscular Volume 90.6 fL (80-98); Mean Platelet Volume 9.9 fL (9.4-12.3); Monocytes Absolute Auto 0.5 X10*3/uL (0.1-1.2); Monocytes Percent Auto 4.4 % (2-11); Neutrophils Absolute Auto 8.2 X10*3/uL (2.0-8.3); Neutrophils Percent Auto 70.5 % (45-73); Platelet Count 280 X10*3/uL (160-400); Red Blood Count 4.26 X10*6/uL (4.20-5.50); Red Cell Distribution Width 12.6 % (11.0-16.0); White Blood Count 11.7 X10*3/uL (4.8-10.8)
[2020-07-24 14:06] LABS: Clozapine (Clozaril) 114 mcg/L; Norclozapine 107 mcg/L (25-400)
== END 2020-07-19 13:54 | disposition home or self-care (01) ==
LOC: HO.LABR 13:53
PROVIDERS: Absent Provider Psychiatry & Neurology Psychiatry; PCP Internal Medicine; Visit Provider Psychiatry & Neurology Psychiatry
DX: F31.4 Bipolar disorder, current episode depressed, severe, without psychotic features (principal); Z79.899 Other long term (current) drug therapy
CPT/HCPCS: 36415; 80159; 85025

== ENCOUNTER 2020-07-27 11:26 | Outpatient (REF) | payer BC, MEDICARE, SELFPAY ==
[2020-07-27 11:50] LABS: MANUAL DIFF FLAG NO
[2020-07-27 11:53] LABS: Basophils Percent Auto 0.3 % (0-2); Eosinophils Absolute Auto 0.1 X10*3/uL (0.0-0.4); Eosinophils Percent Auto 0.7 % (0-4); Hematocrit 39.2 % (37-47); Hemoglobin 13.1 g/dl (12.0-16.0); Imm Gran Abs Auto 0.02 X10*3/uL (0.00-0.03); Imm Gran Pct Auto 0.2 % (0.0-0.4); Lymphocytes Absolute Auto 2.6 X10*3/uL (1.2-4.9); Lymphocytes Percent Auto 29.1 % (20-40); Mean Corpuscular HGB Conc 33.4 g/dl (31.0-35.0); Mean Corpuscular Hemoglobin 30.3 pg (27.0-33.0); Mean Corpuscular Volume 90.7 fL (80-98); Mean Platelet Volume 9.9 fL (9.4-12.3); Monocytes Absolute Auto 0.5 X10*3/uL (0.1-1.2); Neutrophils Absolute Auto 5.7 X10*3/uL (2.0-8.3); Neutrophils Percent Auto 63.7 % (45-73); Platelet Count 250 X10*3/uL (160-400); Red Blood Count 4.32 X10*6/uL (4.20-5.50); Red Cell Distribution Width 12.6 % (11.0-16.0); White Blood Count 8.9 X10*3/uL (4.8-10.8)
[2020-07-30 22:38] LABS: Clozapine (Clozaril) 116 mcg/L; Norclozapine 108 mcg/L (25-400)
== END 2020-07-27 11:27 | disposition home or self-care (01) ==
LOC: HO.LABR 11:26
PROVIDERS: Absent Provider Psychiatry & Neurology Psychiatry; PCP Internal Medicine; Visit Provider Psychiatry & Neurology Psychiatry
DX: F31.4 Bipolar disorder, current episode depressed, severe, without psychotic features (principal)
CPT/HCPCS: 36415; 80159; 85025

== ENCOUNTER 2020-08-04 16:29 | Emergency (ER) | payer BC, MEDICARE, SELFPAY ==
[2020-08-04 16:35] VITALS: BP 149/79; PULSE 95; RESP 18; TEMP 37.1; O2SAT 100; BMI 110.4
[2020-08-04 17:27] VITALS: BP 164/89; PULSE 92; RESP 16; TEMP 36.7; O2SAT 98
--- NOTE | 2020-08-04 17:32 | XR_ITS ---
EXAMINATION: XR CHEST CLINICAL INFORMATION: URI symptoms COMPARISON: 05/26/2020 TECHNIQUE: Frontal view of the chest was obtained. FINDINGS: No significant abnormality is noted involving the heart, lungs, mediastinum, bony thorax or soft tissues. XR/XR chest 1V IMPRESSION: No acute pulmonary findings.
--- NOTE | 2020-08-04 18:26 | ED.GENADULT ---
HPI - General Adult General Chief complaint: Dyspnea Stated complaint: sob covid exposure Time Seen by Provider: 08/04/20 17:32 Source: patient Mode of arrival: ambulatory Limitations: no limitations History of Present Illness HPI narrative: Patient presents to ED for exposure to COVID and flu virus. Patient states having friends now positive for COVID and flu virus and she was around them. Patient states last 2 days having slight cough with mild shortness of breath. Patient states no swelling of lower extremities, chest pain, weakness or dizziness. Patient presently denies any shortness of breath. Related Data Previous Rx's Medication Instructions Recorded naproxen 500 mg PO BID PRN #20 tab 06/08/20 prednisone 40 mg PO DAILY 5 Days #10 tab NS 06/22/20 ketorolac 10 mg PO Q8H PRN #10 tab 06/29/20 phenazopyridine [Pyridium] 100 mg PO TID PRN #10 tab 06/29/20 doxycycline monohydrate 100 mg PO BID #14 cap 07/08/20 prednisone 40 mg PO DAILY #10 tab 07/08/20 Allergies Allergy/AdvReac Type Severity Reaction Status Date / Time Penicillins [PENICILLINS] Allergy Severe ANAPHYLAXIS Verified 06/08/20 14:24 adhesive [ADHESIVE] Allergy Unknown RASH Verified 06/08/20 14:24 artichoke [ARTICHOKE] Allergy Unknown RASH Verified 06/08/20 14:24 carbamazepine [From TEGRETOL] Allergy Unknown MIGRAINES Verified 06/08/20 14:24 cariprazine [From VRAYLAR] Allergy Unknown LEG CRAMPS Verified 06/08/20 14:24 fentanyl [FENTANYL] Allergy Unknown RASH Verified 06/08/20 14:24 lamotrigine [From LAMICTAL] Allergy Unknown RASH Verified 06/08/20 14:24 lithium [LITHIUM] AdvReac Severe tremor and Verified 06/08/20 14:24 falls Review of Systems Review of Systems: Yes all other systems are reviewed and are negative Constitutional: Constitutional: Reports as per HPI and Reports no additional constitutional complaints Eyes: Eyes: Reports as per HPI and Reports no additional eye complaints ENT: Reports system reviewed and no additional complaints, except as documented and Reports as per HPI Cardiovascular: Cardiovascular: Reports as per HPI, Reports no additional cardiovascular complaints, Denies chest pain, Denies chest pain at rest, Denies chest pain with activity, Reports dyspnea (Gone), Denies dyspnea on exertion, Denies orthopnea and Denies paroxysmal nocturnal dyspnea Respiratory: Respiratory: Reports cough, Denies excessive phlegm production, Denies pain on inspiration, Denies pain with cough, Reports dyspnea (Gone) and Denies dyspnea on exertion Gastrointestinal: Gastrointestinal: Reports as per HPI and Reports no additional gastrointestinal complaints Musculoskeletal: Musculoskeletal: Reports no additional musculoskeletal complaints and Reports as per HPI Neurologic: Reports system reviewed and no additional complaints, except as documented and Reports as per HPI Psychiatric: Psychiatric: Reports no additional psychiatric complaints and Reports as per HPI [facility] Past Medical History Medical History Anxiety Bipolar disease, chronic Depression GERD (gastroesophageal reflux disease) High cholesterol Hypertension Migraines Obstructive sleep apnea PCOS (polycystic ovarian syndrome) Pre-diabetes Renal colic Social History Social History Alcohol intake: current Alcohol intake frequency: holidays/special occasions only Alcohol type: hard liquor Smoking Status: Current every day smoker Smoked in Last 30 Days: Yes Use of substances other than those prescribed or required for medical reasons: No Substance Use Type: Marijuana Advance Directives: No Advance Directives Information Provided: Yes Physical Exam Vital Signs: Vital Signs: Last Vital Signs Temp 98.8 F 08/04/20 20:25 Pulse 87 08/04/20 20:25 Resp 17 08/04/20 20:25 BP 154/87 H 08/04/20 20:25 Pulse Ox 98 08/04/20 20:25 Body Mass Index 110.4 Const: General: cooperative, healthy appearing, comfortable, no acute distress, well developed, alert, awake and Physically active Orientation/consciousness: patient oriented x3 HENMT: Head: Yes normal to inspection, Yes No palpable skull fracture present, Yes normocephalic and Yes atraumatic Ears: hearing grossly normal bilaterally, external ears normal and TM's normal bilaterally General nose exam: Normal external nose present Face and sinus: Yes normal facial exam and Yes sinuses nontender Throat: Yes posterior oropharynx normal, Yes tonsils normal and Yes uvula midline Eyes: General: appearance normal, both eyes and all related structures Neck: Neck: Yes normal visual inspection, Yes full ROM, Yes no lymphadenopathy, Yes no meningeal signs, Yes trachea midline, Yes supple and No tender Chest: Chest palpation & inspection: normal inspection of the chest, normal palpation of entire chest wall and no localized rib tenderness Resp: Effort & Inspection: normal respiratory effort and able to speak in complete sentences Auscultation: clear to auscultation bilaterally Cardio: Jugular venous distension: no JVD Heart sounds: S1 normal heart sound present and S2 normal heart sound present GI: Inspection: Yes normal to inspection and No abdominal wall ecchymosis Palpation (GI): Soft to palpation, not firm, nontender, no guarding and not rigid : General: No CVA tenderness and Yes no CVA tenderness Back/Spine/Pelvis: Back: no CVA tenderness, No CVA tenderness and No back tenderness Skin: General skin exam: no rashes or lesions noted Neuro: General: patient oriented x3, gait normal, no meningeal signs and CN's II-XI intact bilaterally Cranial nerves: Yes CN's II-XII intact bilaterally Extrem: Other: Negative for any swelling of lower extremities, calf pain, pitting edema. General: Yes normal to inspection and Yes full ROM Psych: Appearance: grossly normal, well kempt and not disheveled Course Course Course Narrative: Patient presently not in any distress. Patient's vital signs are stable. Patient will have chest x-ray and COVID/RSV/flu swab. History and physical exam does not indicate PE. Reevaluation(s) Reevaluation #1: Patient came back negative for flu or COVID-19. Patient x-ray negative for any pneumonia Time: 20:10 Medical Decision Making [facility] Narrative Medical decision making narrative: URI Lab Data Labs: Lab Results 08/04/20 Range/Units 17:50 Coronavirus (PCR) NEGATIVE (Negative) Influenza Type A (PCR) NEGATIVE (Negative) Influenza Type B (PCR) NEGATIVE (Negative) RSV RNA Qual (PCR) NEGATIVE (Negative) Discharge Plan Discharge Clinical Impression: URI (upper respiratory infection) Patient Disposition: Home, Self-Care Instructions: Upper Respiratory Infection (ED) Additional Instructions: Return to the ED for any chest pain, swelling of lower extremity, chest pain or shortness of breath, coughing up blood, weakness, intractable fever, chills, shortness of breath, or any other concerning symptoms. Prescriptions: No Action prednisone 20 mg tablet 40 mg PO DAILY 5 Days Qty: 10 RF: 0 ketorolac 10 mg tablet 10 mg PO Q8H PRN (Reason: pain) Qty: 10 RF: 0 phenazopyridine [Pyridium] 100 mg tablet 100 mg PO TID PRN (Reason: pain) Qty: 10 RF: 0 naproxen 500 mg tablet 500 mg PO BID PRN (Reason: pain) Qty: 20 RF: 0 prednisone 20 mg tablet 40 mg PO DAILY Qty: 10 RF: 0 doxycycline monohydrate 100 mg capsule 100 mg PO BID Qty: 14 RF: 0 Referrals: Christos Britt MD [Primary Care Provider] - 2 days (Chest x-ray negative for pneumonia. Patient negative for COVID, RSV, or influenza) Interventions: ED Discharge Assessment Last Done: 08/04/20 20:26 Discharge Date/Time: 08/04/20 20:27 Print Language: Lithuanian
[2020-08-04 18:37] LABS: Influenza A PCR NEGATIVE (Negative); Influenza B PCR NEGATIVE (Negative); Resp Syncy Virus RNA Qual PCR NEGATIVE (Negative); SARS COV2 PCR INHOUSE NEGATIVE (Negative)
[2020-08-04 20:25] VITALS: BP 154/87; PULSE 87; RESP 17; TEMP 37.1; O2SAT 98
== END 2020-08-04 20:27 | disposition home or self-care (01) ==
PROVIDERS: Physician Assistant; Emergency Provider Internal Medicine; PCP Internal Medicine
DX: J06.9 Acute upper respiratory infection, unspecified (principal); Z20.828 Contact with and (suspected) exposure to other viral communicable diseases; I10 Essential (primary) hypertension; R73.03 Prediabetes
CPT/HCPCS: 0241U; 71045; 99284

== ENCOUNTER 2020-08-08 13:14 | Outpatient (REF) | payer BC, MEDICARE, SELFPAY ==
[2020-08-08 14:09] LABS: MANUAL DIFF FLAG NO
[2020-08-08 14:18] LABS: Basophils Percent Auto 0.2 % (0-2); Eosinophils Percent Auto 0.4 % (0-4); Hematocrit 40.7 % (37-47); Hemoglobin 13.2 g/dl (12.0-16.0); Imm Gran Abs Auto 0.01 X10*3/uL (0.00-0.03); Imm Gran Pct Auto 0.2 % (0.0-0.4); Lymphocytes Absolute Auto 1.8 X10*3/uL (1.2-4.9); Lymphocytes Percent Auto 33.7 % (20-40); Mean Corpuscular HGB Conc 32.4 g/dl (31.0-35.0); Mean Corpuscular Hemoglobin 29.9 pg (27.0-33.0); Mean Corpuscular Volume 92.1 fL (80-98); Mean Platelet Volume 10.2 fL (9.4-12.3); Monocytes Absolute Auto 0.3 X10*3/uL (0.1-1.2); Monocytes Percent Auto 6.5 % (2-11); Neutrophils Absolute Auto 3.1 X10*3/uL (2.0-8.3); Platelet Count 250 X10*3/uL (160-400); Red Blood Count 4.42 X10*6/uL (4.20-5.50); WBCANC 5.3 X10*3/uL; White Blood Count 5.3 X10*3/uL (4.8-10.8)
== END 2020-08-08 13:15 | disposition home or self-care (01) ==
LOC: HO.LABR 13:14
PROVIDERS: PCP Internal Medicine; Visit Provider Psychiatry & Neurology Psychiatry
DX: Z51.81 Encounter for therapeutic drug level monitoring (principal)
CPT/HCPCS: 36415; 85025

== ENCOUNTER 2020-08-15 14:41 | Emergency (ER) | payer BC, MEDICARE, SELFPAY ==
[2020-08-15 14:51] VITALS: BP 152/97; PULSE 100; RESP 18; TEMP 36.6; O2SAT 96; BMI 49.6
--- NOTE | 2020-08-15 14:52 | XR_ITS ---
EXAMINATION: XR CHEST CLINICAL INFORMATION: Covid Positive COMPARISON: None TECHNIQUE: Frontal view of the chest was obtained. FINDINGS: No significant abnormality is noted involving the heart, lungs, mediastinum, bony thorax or soft tissues. XR/XR chest 1V IMPRESSION: Unremarkable chest examination.
--- NOTE | 2020-08-15 14:59 | ED_ITS ---
HPI - URI/Sore Throat General Chief Complaint: Upper Respiratory Symptoms Stated Complaint: covid+ rib/lung pain Time Seen by Provider: 08/15/20 14:52 Source: patient Mode of arrival: ambulatory Limitations: no limitations History of Present Illness HPI Narrative: 45-year-old female with a past medical history of anxiety, bipolar disease, depression, GERD, high cholesterol, hypertension, migraines, JILLIAN, PCOS, prediabetes, renal colic here with left sided chest wall pain. Patient is known COVID positive and tested positive 08/09 at outpatient sight. She has had intermittent cough and fever with a max temp of 100.6 degrees. She denies any shortness of breath, abdominal pain, nausea or vomiting. She has had loss of appetite. MD elicited complaint: fever and cough Onset (ago): day(s) Consistency: intermittent Severity: mild Able to tolerate fluids by mouth: Yes Exacerbating factors: deep breaths Relieving factors: nothing Associated symptoms: fever and cough Treatments prior to arrival: none Related Data Previous Rx's Medication Instructions Recorded naproxen 500 mg PO BID PRN #20 tab 06/08/20 prednisone 40 mg PO DAILY 5 Days #10 tab NS 06/22/20 ketorolac 10 mg PO Q8H PRN #10 tab 06/29/20 phenazopyridine [Pyridium] 100 mg PO TID PRN #10 tab 06/29/20 doxycycline monohydrate 100 mg PO BID #14 cap 07/08/20 prednisone 40 mg PO DAILY #10 tab 07/08/20 Allergies Allergy/AdvReac Type Severity Reaction Status Date / Time Penicillins [PENICILLINS] Allergy Severe ANAPHYLAXIS Verified 06/08/20 14:24 adhesive [ADHESIVE] Allergy Unknown RASH Verified 06/08/20 14:24 artichoke [ARTICHOKE] Allergy Unknown RASH Verified 06/08/20 14:24 carbamazepine [From TEGRETOL] Allergy Unknown MIGRAINES Verified 06/08/20 14:24 cariprazine [From VRAYLAR] Allergy Unknown LEG CRAMPS Verified 06/08/20 14:24 fentanyl [FENTANYL] Allergy Unknown RASH Verified 06/08/20 14:24 lamotrigine [From LAMICTAL] Allergy Unknown RASH Verified 06/08/20 14:24 lithium [LITHIUM] AdvReac Severe tremor and Verified 06/08/20 14:24 falls Review of Systems Review of Systems: Yes all other systems are reviewed and are negative Constitutional: Constitutional: Reports no additional constitutional complaints, Denies body ache(s), Denies chills, Reports fever(s), Denies headache(s) and Denies weakness Eyes: Eyes: Reports no additional eye complaints and Denies change in vision ENT: Reports system reviewed and no additional complaints, except as documented, Denies dizziness, Denies headache(s), Denies nasal congestion, Denies nasal discharge and Denies neck pain Cardiovascular: Cardiovascular: Reports no additional cardiovascular complai nts, Reports chest pain, Denies leg edema and Denies dyspnea Respiratory: Respiratory: Reports no additional respiratory complaints, Reports cough and Denies dyspnea Gastrointestinal: Gastrointestinal: Reports no additional gastrointestinal complaints, Denies abdominal pain, Denies diarrhea, Denies nausea and Denies vomiting Genitourinary: Genitourinary: Reports no additional female genitourinary complaints and Denies urinary incontinence Musculoskeletal: Musculoskeletal: Reports no additional musculoskeletal complaints, Denies back pain, Denies arthralgias, Denies joint swelling, Denies neck pain, Denies numbness and Denies tingling Integumentary/Breasts: Skin/Breast: Reports system reviewed and no additional complaints, except as docu and Denies rash Neurologic: Reports system reviewed and no additional complaints, except as documented, Denies Abnormal speech present, Denies dizziness, Denies headache(s), Denies numbness, Denies tingling and Denies weakness PMFSH Past Medical History Attestation statement: The following information was validated with the patient. Source: old records reviewed and nursing notes reviewed Medical History Anxiety Bipolar disease, chronic Depression GERD (gastroesophageal reflux disease) High cholesterol Hypertension Migraines Obstructive sleep apnea PCOS (polycystic ovarian syndrome) Pre-diabetes Renal colic Social History Social History Alcohol intake: never Smoking Status: Light tobacco smoker Use of substances other than those prescribed or required for medical reasons: No Substance Use Type: Marijuana Advance Directives: No Advance Directives Information Provided: No Physical Exam Vital Signs: Vital Signs: Last Vital Signs Temp 98 F 08/15/20 14:51 Pulse 100 08/15/20 14:51 Resp 18 08/15/20 14:51 BP 152/97 H 08/15/20 14:51 Pulse Ox 96 08/15/20 14:51 Body Mass Index 49.6 Const: General: cooperative, healthy appearing, comfortable and no acute distress Orientation/consciousness: patient oriented x3 Limitations: no limitations HENMT: Head: Yes normal to inspection Ears: hearing grossly normal bilaterally General nose exam: Normal external nose present Face and sinus: Yes normal facial exam Mouth: Normal oral and palatal mucosa present Throat: Yes posterior oropharynx normal Eyes: General: appearance normal, both eyes and all related structures Pupils: Equal, round and reactive pupils present Neck: Neck: Yes normal visual inspection Chest: Other: Left-sided lateral rib and chest wall tenderness, worsened with deep breathing, movement and palpation Chest palpation & inspection: normal inspection of the chest Resp: Effort & Inspection: normal respiratory effort Auscultation: clear to auscultation bilaterally Cardio: Rate: regular rate Rhythm: regular rhythm Peripheral pulses: Peripheral pulses 2+ throughout GI: Inspection: Yes normal to inspection Palpation (GI): Soft to palpation and nontender Auscultation: normal bowel sounds Back/Spine/Pelvis: Thoracic/Lumbar Spine: thoracic and lumbar spine normal to inspection Skin: General skin exam: no rashes or lesions noted Neuro: General: patient oriented x3, no focal motor deficits and normal sensation to monofilament Cranial nerves: Yes Equal, round and reactive pupils present Cognition (Neuro): normal cognition Speech: No Abnormal speech present Gait exam (Neuro): Normal gait present Motor exam (neuro): 5/5 motor strength present throughout Extrem: General: Yes normal to inspection Course Course Course Narrative: 45-year-old female known COVID positive here with left-sided chest wall pain which is reproducible on exam. Patient has stable vital signs, clear lung sounds. Will check chest x-ray, provide analgesua and re-assess. 1599-I went to re-evaluate the patient and she now tells me she has LUQ abdominal pain which is tender to palp and cramping feeling. Will check labs, UA, give GI cocktail and re-assess. 2029-went to re-evaluate patient and I was informed she had eloped MDM - URI/Sore Throat Medical Records Attestation: I reviewed the patient's medical records. Lab Data Attestation: I reviewed the patient's lab results. Imaging Data Chest x-ray: Attestation: I personally reviewed and interpreted this imaging study as follows: Radiologist's impression: EXAMINATION: XR CHEST CLINICAL INFORMATION: Covid Positive COMPARISON: None TECHNIQUE: Frontal view of the chest was obtained. FINDINGS: No significant abnormality is noted involving the heart, lungs, mediastinum, bony thorax or soft tissues. XR/XR chest 1V IMPRESSION: Unremarkable chest examination. Discharge Plan Discharge Patient Disposition: Elopement Prescriptions: No Action prednisone 20 mg tablet 40 mg PO DAILY 5 Days Qty: 10 RF: 0 ketorolac 10 mg tablet 10 mg PO Q8H PRN (Reason: pain) Qty: 10 RF: 0 phenazopyridine [Pyridium] 100 mg tablet 100 mg PO TID PRN (Reason: pain) Qty: 10 RF: 0 naproxen 500 mg tablet 500 mg PO BID PRN (Reason: pain) Qty: 20 RF: 0 prednisone 20 mg tablet 40 mg PO DAILY Qty: 10 RF: 0 doxycycline monohydrate 100 mg capsule 100 mg PO BID Qty: 14 RF: 0 Discharge Date/Time: 08/15/20 19:29
[2020-08-15] MEDS: Ibuprofen 800 MG TABLET PO (15:23)
--- NOTE | 2020-08-15 18:55 | PC.NURSE ---
WENT TO DRAW PATIENT AND PATIENT WAS NOT IN FAMILY WAITING AREA. LWT
== END 2020-08-15 19:29 | disposition left against medical advice (07) ==
PROVIDERS: Emergency Provider Emergency Medicine; PCP Internal Medicine
DX: U07.1 COVID-19 (principal); I10 Essential (primary) hypertension; F17.210 Nicotine dependence, cigarettes, uncomplicated
CPT/HCPCS: 71045; 99283; 99284

== ENCOUNTER 2020-08-17 14:57 | Outpatient (REF) | payer BC, MEDICARE, SELFPAY ==
[2020-08-17 16:32] LABS: MANUAL DIFF FLAG NO
[2020-08-17 16:36] LABS: Basophils Percent Auto 0.4 % (0-2); Eosinophils Absolute Auto 0.1 X10*3/uL (0.0-0.4); Eosinophils Percent Auto 0.5 % (0-4); Hematocrit 42.7 % (37-47); Imm Gran Abs Auto 0.02 X10*3/uL (0.00-0.03); Imm Gran Pct Auto 0.2 % (0.0-0.4); Lymphocytes Percent Auto 31.6 % (20-40); Mean Corpuscular HGB Conc 32.8 g/dl (31.0-35.0); Mean Corpuscular Volume 91.4 fL (80-98); Mean Platelet Volume 10.5 fL (9.4-12.3); Monocytes Absolute Auto 0.4 X10*3/uL (0.1-1.2); Monocytes Percent Auto 4.3 % (2-11); Neutrophils Absolute Auto 5.9 X10*3/uL (2.0-8.3); Platelet Count 248 X10*3/uL (160-400); Red Blood Count 4.67 X10*6/uL (4.20-5.50); Red Cell Distribution Width 12.5 % (11.0-16.0); WBCANC 9.4 X10*3/uL; White Blood Count 9.4 X10*3/uL (4.8-10.8)
== END 2020-08-17 14:58 | disposition home or self-care (01) ==
LOC: HO.LABR 14:57
PROVIDERS: PCP Internal Medicine; Visit Provider Psychiatry & Neurology Psychiatry
DX: Z51.81 Encounter for therapeutic drug level monitoring (principal)
CPT/HCPCS: 36415; 85025; 85048

== ENCOUNTER 2020-08-20 13:36 | Emergency (ER) | payer BC, MEDICARE, SELFPAY ==
[2020-08-20 15:06] VITALS: BP 149/81; PULSE 91; RESP 16; TEMP 37.1; O2SAT 97; BMI 49.6
--- NOTE | 2020-08-20 15:50 | CT_ITS ---
EXAMINATION: CT ABDOMEN AND PELVIS WITH CONTRAST CLINICAL INFORMATION: Left lower quadrant abdominal pain. COMPARISON: 06/08/2020 TECHNIQUE: Multidetector volumetric images were obtained from the superior aspect of the liver through the pubic symphysis following administration 85 mL of Omnipaque 350 intravenous contrast. Sagittal and coronal reformatted images were obtained on the technologist's workstation. Oral contrast: No This CT examination was performed using dose optimization techniques as appropriate, variously including the following: Automated exposure control. Adjustment of mA and/or kV according to patient size (this includes techniques or standardized protocols for targeted exams where dose is matched to indication/reason for exam; i.e. extremities or head). Use of iterative reconstruction technique. DLP: 1347 mGy-cm FINDINGS: LUNG BASES: Stable small cyst in the posterior left lobe. LIVER, GALLBLADDER, AND BILIARY TREE: Low-attenuation of the liver suggesting hepatic steatosis. Stable small left lobe cyst. No biliary duct dilatation. Gallbladder appears unremarkable. Pancreas, spleen, adrenal gland appears unremarkable. KIDNEYS AND URETERS: 2.5 cm right renal cyst. Small left renal upper pole lesion, too small to characterize, stable from previous. No renal calculi. No ureteral calculi or hydronephrosis. BLADDER: Underdistended grossly unremarkable. GASTROINTESTINAL TRACT: Stomach is nondistended and not reliably evaluated. Mild colonic diverticulosis. No evidence of diverticulitis. Normal caliber of the small and large bowel loops. Normal appendix. No free fluid. No free air. ABDOMINAL WALL: Tiny fat-containing umbilical hernia. LYMPH NODES: No lymphadenopathy. VASCULAR: No aneurysmal dilatation of the aorta. PELVIC VISCERA: Uterus is within normal limits. Redemonstrated left adnexal cyst. Question right adnexal cyst as well. OSSEOUS STRUCTURES: Degenerative changes in the spine. Moderate L5-S1 disc degeneration. CT/CT abdomen pelvis w con IMPRESSION: 1. No acute findings identified in the abdomen or pelvis. Cause of the patient's symptoms has not been determined by CT. 2. Hepatic and renal cysts. 3. Left adnexal cyst. Perhaps small right adnexal cyst. 4. Mild colonic diverticulosis. No diverticulitis.
--- NOTE | 2020-08-20 15:50 | ECG_ITS ---
Test Reason : SOB Blood Pressure : / mmHG Vent. Rate : 076 BPM Atrial Rate : 076 BPM P-R Int : 190 ms QRS Dur : 086 ms QT Int : 382 ms P-R-T Axes : 011 019 037 degrees QTc Int : 429 ms Normal sinus rhythm Nonspecific T wave abnormality Abnormal ECG When compared with ECG of 26-MAY-2020 20:42, No significant change was found Referred By: Belkis Phelan Electronically Signed By:MAGGIE MONTOYA MD
--- NOTE | 2020-08-20 15:55 | ED.ABDPAIN ---
HPI - Abdominal Pain General Chief Complaint: Abdominal Pain Stated Complaint: headache, abd pain Time Seen by Provider: 08/20/20 15:30 Source: patient Mode of arrival: ambulatory History of Present Illness HPI narrative: 45-year-old female with a past medical history of anxiety, bipolar disease, depression, GERD, high cholesterol, hypertension, migraines, JILLIAN, PCOS, prediabetes, renal colic, COVID-19 positive on 08/09 c/o left lower quadrant abdominal pain, nausea, vomiting, diarrhea, decreased p.o. intake, headache, chest discomfort, and mild SOB x4 days. Patient was seen in the ED on Saturday however left AMA prior to complete workup due to wait time. Reports abdominal pain is constant, nonradiating. Describes chest discomfort as a burning, radiating to left shoulder. Denies fever, chills, cough, suspicious food intake, dysuria/hematuria, LE edema MD elicited complaint: abdominal pain Related Data Previous Rx's Medication Instructions Recorded naproxen 500 mg PO BID PRN #20 tab 06/08/20 prednisone 40 mg PO DAILY 5 Days #10 tab NS 06/22/20 ketorolac 10 mg PO Q8H PRN #10 tab 06/29/20 phenazopyridine [Pyridium] 100 mg PO TID PRN #10 tab 06/29/20 doxycycline monohydrate 100 mg PO BID #14 cap 07/08/20 prednisone 40 mg PO DAILY #10 tab 07/08/20 Allergies Allergy/AdvReac Type Severity Reaction Status Date / Time Penicillins [PENICILLINS] Allergy Severe ANAPHYLAXIS Verified 06/08/20 14:24 adhesive [ADHESIVE] Allergy Unknown RASH Verified 06/08/20 14:24 artichoke [ARTICHOKE] Allergy Unknown RASH Verified 06/08/20 14:24 carbamazepine [From TEGRETOL] Allergy Unknown MIGRAINES Verified 06/08/20 14:24 cariprazine [From VRAYLAR] Allergy Unknown LEG CRAMPS Verified 06/08/20 14:24 fentanyl [FENTANYL] Allergy Unknown RASH Verified 06/08/20 14:24 lamotrigine [From LAMICTAL] Allergy Unknown RASH Verified 06/08/20 14:24 lithium [LITHIUM] AdvReac Severe tremor and Verified 06/08/20 14:24 falls Review of Systems Review of Systems Constitutional: No Weight loss, No Fever, No Chills Cardiovascular: + Chest Pain, + SOB, No Dyspnea on Exertion Respiratory: No Cough, No Sputum, No Wheezing Gastrointestinal: + Nausea, + Vomiting, + Diarrhea, No Constipation, + Abdominal paina Genitourinary: No irregular bleeding, No Dysuria, No Urinary Frequency, No Hematuria Musculoskeletal: No joint pain, No Myalgias, No Joint Swelling Skin: No Skin Lesions, No rash Neuro: + Headache Yes all other systems are reviewed and are negative Physical Exam Vital Signs: Vital Signs: Last Vital Signs Temp 98.7 F 08/20/20 15:06 Pulse 91 08/20/20 15:06 Resp 16 08/20/20 15:06 BP 149/81 H 08/20/20 15:06 Pulse Ox 97 08/20/20 15:06 Body Mass Index 49.6 Const: General: cooperative Nutritional Appearance: obese Orientation/consciousness: patient oriented x3 Limitations: no limitations HENMT: Head: Yes normal to inspection Ears: hearing grossly normal bilaterally General nose exam: Normal external nose present Face and sinus: Yes normal facial exam Eyes: General: appearance normal, both eyes and all related structures EOM: EOMs intact bilaterally Neck: Neck: Yes normal visual inspection and Yes no meningeal signs Resp: Effort & Inspection: normal respiratory effort Auscultation: clear to auscultation bilaterally, no crackles, no rhonchi and no wheezes Cardio: Rate: regular rate Heart sounds: S1 normal heart sound present and S2 normal heart sound present GI: Inspection: Yes normal to inspection Palpation (GI): Soft to palpation, Tenderness to palpation present (GI) in the epigastrum, in the LLQ and in the LUQ, no guarding and not rigid Skin: Rashes: no rashes Wounds: no wounds Neuro: General: patient oriented x3 and no meningeal signs Gait exam (Neuro): Normal gait present Extrem: General: Yes normal to inspection Course Course Course Narrative: 1700--ED care transferred to ELISABETH Wilson pending labs and imaging, dispo per results MDM - Abdominal Pain MDM Narrative Medical decision making narrative: 45-year-old female with a past medical history of anxiety, bipolar disease, depression, GERD, high cholesterol, hypertension, migraines, JILLIAN, PCOS, prediabetes, renal colic, COVID-19 positive on 08/09 c/o left lower quadrant abdominal pain, nausea, vomiting, diarrhea, decreased p.o. intake, headache, chest discomfort, and mild SOB x4 days. On exam VSS, NAD/nontoxic appearing, lungs CTA, abdomen soft with epigastric/ left upper and left lower quadrant tenderness. No rebound or guarding. Concern for diverticulitis vs GERD/gastritis vs COVID-19. Rule out COVID pneumonia. Lower concern for ACS/PE Plan: EKG, labs, UA, CT AP, symptomatic treatment/reassess CXR from 08/15 unremarkable Lab Data Result diagrams: 08/20/20 16:14 08/20/20 16:14 Labs: Lab Results 08/20/20 08/20/20 08/20/20 Range/Units 16:14 16:14 16:14 WBC 8.7 (4.8-10.8) X10*3/uL RBC 4.86 (4.20-5.50) X10*6/uL Hgb 14.7 (12.0-16.0) g/dl Hct 43.7 (37-47) % MCV 89.9 (80-98) fL MCH 30.2 (27.0-33.0) pg MCHC 33.6 (31.0-35.0) g/dl RDW 12.4 (11.0-16.0) % Plt Count 229 (160-400) X10*3/uL MPV 10.4 (9.4-12.3) fL Immature Gran % (Auto) 0.5 H (0.0-0.4) % Neut % (Auto) 63.6 (45-73) % Lymph % (Auto) 30.4 (20-40) % [place] % (Auto) 4.5 (2-11) % Eos % (Auto) 0.7 (0-4) % Baso % (Auto) 0.3 (0-2) % Lymph # (Auto) 2.6 (1.2-4.9) X10*3/uL [place] # (Auto) 0.4 (0.1-1.2) X10*3/uL Eos # (Auto) 0.1 (0.0-0.4) X10*3/uL Baso # (Auto) 0.0 (0.0-0.2) X10*3/uL Abs Immat Gran (auto) 0.04 H (0.00-0.03) X10*3/uL Absolute Neuts (auto) 5.5 (2.0-8.3) X10*3/uL Absolute Nucleated RBC 0.000 (0.0-0.012) X10*3/uL Nucleated RBC % (auto) 0.0 (0.0-0.2) /100WBC Hold Blue Top SEE NOTE C-Reactive Protein 0.17 (< or = 0.50) mg/dL Discharge Plan Discharge Clinical Impression: COVID-19 Abdominal pain Qualifiers: Abdominal location: unspecified location Qualified Code(s): R10.9 - Unspecified abdominal pain Nausea & vomiting Qualifiers: Vomiting type: unspecified Vomiting Intractability: unspecified Qualified Code(s): R11.2 - Nausea with vomiting, unspecified Prescriptions: No Action prednisone 20 mg tablet 40 mg PO DAILY 5 Days Qty: 10 RF: 0 ketorolac 10 mg tablet 10 mg PO Q8H PRN (Reason: pain) Qty: 10 RF: 0 phenazopyridine [Pyridium] 100 mg tablet 100 mg PO TID PRN (Reason: pain) Qty: 10 RF: 0 naproxen 500 mg tablet 500 mg PO BID PRN (Reason: pain) Qty: 20 RF: 0 prednisone 20 mg tablet 40 mg PO DAILY Qty: 10 RF: 0 doxycycline monohydrate 100 mg capsule 100 mg PO BID Qty: 14 RF: 0 PMFSH Past Medical History Attestation statement: The following information was validated with the patient. Medical History Anxiety Bipolar disease, chronic Depression GERD (gastroesophageal reflux disease) High cholesterol Hypertension Migraines Obstructive sleep apnea PCOS (polycystic ovarian syndrome) Pre-diabetes Renal colic Social History Social History Alcohol intake: never Smoking Status: Current every day smoker Smoked in Last 30 Days: Yes Use of substances other than those prescribed or required for medical reasons: Yes Substance Use Type: Marijuana Substance Use Frequency: Daily Advance Directives: No Advance Directives Information Provided: No
[2020-08-20] MEDS: Ketorolac Tromethamine 15 MG/ML VIAL IVPUSH (16:17)
[2020-08-20] MEDS: Famotidine/PF 20 MG/2 ML VIAL IVPUSH (16:18)
[2020-08-20] MEDS: ondansetron HCL 4 MG/2 ML VIAL IVPUSH (16:18)
[2020-08-20 16:25] LABS: MANUAL DIFF FLAG NO
[2020-08-20 16:33] LABS: Basophils Percent Auto 0.3 % (0-2); Eosinophils Absolute Auto 0.1 X10*3/uL (0.0-0.4); Eosinophils Percent Auto 0.7 % (0-4); Hematocrit 43.7 % (37-47); Hemoglobin 14.7 g/dl (12.0-16.0); Imm Gran Abs Auto 0.04 X10*3/uL (0.00-0.03); Imm Gran Pct Auto 0.5 % (0.0-0.4); Lymphocytes Absolute Auto 2.6 X10*3/uL (1.2-4.9); Lymphocytes Percent Auto 30.4 % (20-40); Mean Corpuscular HGB Conc 33.6 g/dl (31.0-35.0); Mean Corpuscular Hemoglobin 30.2 pg (27.0-33.0); Mean Corpuscular Volume 89.9 fL (80-98); Mean Platelet Volume 10.4 fL (9.4-12.3); Monocytes Absolute Auto 0.4 X10*3/uL (0.1-1.2); Monocytes Percent Auto 4.5 % (2-11); Neutrophils Absolute Auto 5.5 X10*3/uL (2.0-8.3); Neutrophils Percent Auto 63.6 % (45-73); Platelet Count 229 X10*3/uL (160-400); Red Blood Count 4.86 X10*6/uL (4.20-5.50); Red Cell Distribution Width 12.4 % (11.0-16.0); White Blood Count 8.7 X10*3/uL (4.8-10.8)
[2020-08-20 16:57] LABS: C Reactive Protein 0.17 mg/dL (< or = 0.50)
[2020-08-20 16:59] LABS: Troponin-I High Sensitivity < 3.5 ng/L (<3.5-17.0)
[2020-08-20 17:02] LABS: Alanine Aminotransferase 28 U/L (0-31); Albumin Level 4.6 g/dL (3.5-5.0); Alkaline Phosphatase 85 U/L (39-117); Anion Gap 19 (12-20); Aspartate Amino Transferase 29 U/L (5-31); Bilirubin Direct 0.2 mg/dL (0.0-0.5); Bilirubin Total 0.5 mg/dL (0.0-1.0); Blood Urea Nitrogen 9 mg/dL (9-16); Calcium 9.2 mg/dL (8.4-10.2); Carbon Dioxide 25 mmol/L (22-29); Chloride 102 mmol/L (96-108); Creatinine Clr Calc Pharmacy 137.5; Estimated Glomerular Filt Rate > 60; Glucose Random 105 mg/dL (60-115); Lipase 31 U/L (8-78); Sodium 141 mmol/L (135-145); Total Protein 8.1 g/dL (6.5-8.0)
[2020-08-20 17:14] LABS: Procalcitonin < 0.02 ng/mL
[2020-08-20 17:19] LABS: Ferritin 19 ng/mL (10-250)
[2020-08-20] MEDS: iohexoL 350 MG/ML 100 ML INFUS..BTL IV (18:12)
[2020-08-20 18:20] LABS: Glucose Urine UA NEG (NEG); Leukocyte Esterase Urine NEG (NEG); Nitrite Urine NEG (NEG); Specific Gravity - Urine 1.015 (1.005-1.025); Urine Blood NEG (NEG); Urine Ketones NEG (NEG); Urine Protein NEG (NEG-TRACE)
[2020-08-20 18:21] LABS: Appearance Urine CLEAR; Color Urine YELLOW
[2020-08-20 18:41] VITALS: BP 122/72; PULSE 77; RESP 19; O2SAT 97
[2020-08-20 19:31] LABS: Lactate Dehydrogenase 182 U/L (122-220)
[2020-08-20] MEDS: Dicyclomine HCl 10 MG CAPSULE 20 MG PO (19:44)
--- NOTE | 2020-08-20 19:46 | PC.NURSE ---
REPORT TAKEN FROM [facility], FIRST CONTACT WITH PT. RESTING IN BED SKIN PWD RESPIRATIONS EVEN UNLABORED. REPORTS LEFT SIDED ABD PAIN, MEDICATED PER MD ORDER.
== END 2020-08-20 20:07 | disposition home or self-care (01) ==
PROVIDERS: Physician Assistant; Emergency Provider Emergency Medicine; PCP Internal Medicine
DX: R10.9 Unspecified abdominal pain (principal); R11.2 Nausea with vomiting, unspecified; I10 Essential (primary) hypertension; F17.200 Nicotine dependence, unspecified, uncomplicated; Z86.19 Personal history of other infectious and parasitic diseases
CPT/HCPCS: 36415; 74177; 80048; 80076; 81003; 82728; 83615; 83690; 83735; 84145; 84484; 85025; 86140; 93005; 96374; 96375; 99284; J1885; J2405; Q9967

== ENCOUNTER 2020-08-24 12:16 | Outpatient (REF) | payer BC, MEDICARE, SELFPAY ==
[2020-08-24 12:38] LABS: MANUAL DIFF FLAG NO
[2020-08-24 12:40] LABS: Basophils Percent Auto 0.5 % (0-2); Eosinophils Absolute Auto 0.1 X10*3/uL (0.0-0.4); Eosinophils Percent Auto 0.7 % (0-4); Hematocrit 38.3 % (37-47); Hemoglobin 12.8 g/dl (12.0-16.0); Imm Gran Abs Auto 0.02 X10*3/uL (0.00-0.03); Imm Gran Pct Auto 0.2 % (0.0-0.4); Lymphocytes Absolute Auto 2.4 X10*3/uL (1.2-4.9); Lymphocytes Percent Auto 29.7 % (20-40); Mean Corpuscular HGB Conc 33.4 g/dl (31.0-35.0); Mean Corpuscular Hemoglobin 29.9 pg (27.0-33.0); Mean Corpuscular Volume 89.5 fL (80-98); Mean Platelet Volume 10.1 fL (9.4-12.3); Monocytes Absolute Auto 0.5 X10*3/uL (0.1-1.2); Monocytes Percent Auto 6.2 % (2-11); Neut%MD 62.7 %; Neutrophils Absolute Auto 5.1 X10*3/uL (2.0-8.3); Neutrophils Percent Auto 62.7 % (45-73); Platelet Count 220 X10*3/uL (160-400); Red Blood Count 4.28 X10*6/uL (4.20-5.50); Red Cell Distribution Width 12.3 % (11.0-16.0); WBCANC 8.1 X10*3/uL; White Blood Count 8.1 X10*3/uL (4.8-10.8)
== END 2020-08-24 12:17 | disposition home or self-care (01) ==
LOC: HO.LABR 12:16
PROVIDERS: PCP Internal Medicine; Visit Provider Psychiatry & Neurology Psychiatry
DX: Z51.81 Encounter for therapeutic drug level monitoring (principal)
CPT/HCPCS: 36415; 85025; 85048

== ENCOUNTER 2020-09-02 15:24 | Outpatient (REF) | payer MEDICARE, BC, SELFPAY ==
[2020-09-02 15:59] LABS: MANUAL DIFF FLAG NO
[2020-09-02 16:07] LABS: Basophils Percent Auto 0.3 % (0-2); Eosinophils Absolute Auto 0.1 X10*3/uL (0.0-0.4); Eosinophils Percent Auto 0.8 % (0-4); Hematocrit 38.3 % (37-47); Hemoglobin 12.8 g/dl (12.0-16.0); Imm Gran Abs Auto 0.03 X10*3/uL (0.00-0.03); Imm Gran Pct Auto 0.3 % (0.0-0.4); Lymphocytes Absolute Auto 2.4 X10*3/uL (1.2-4.9); Lymphocytes Percent Auto 23.7 % (20-40); Mean Corpuscular HGB Conc 33.4 g/dl (31.0-35.0); Mean Corpuscular Hemoglobin 30.3 pg (27.0-33.0); Mean Corpuscular Volume 90.8 fL (80-98); Monocytes Absolute Auto 0.5 X10*3/uL (0.1-1.2); Monocytes Percent Auto 5.2 % (2-11); Neut%MD 69.7 %; Neutrophils Percent Auto 69.7 % (45-73); Platelet Count 265 X10*3/uL (160-400); Red Blood Count 4.22 X10*6/uL (4.20-5.50); WBCANC 10.1 X10*3/uL; White Blood Count 10.1 X10*3/uL (4.8-10.8)
== END 2020-09-02 15:25 | disposition home or self-care (01) ==
LOC: HO.LABR 15:24
PROVIDERS: PCP Internal Medicine; Visit Provider Psychiatry & Neurology Psychiatry
DX: Z13.89 Encounter for screening for other disorder (principal)
CPT/HCPCS: 36415; 85025; 85048

== ENCOUNTER 2020-09-02 16:15 | Emergency (ER) | payer BC, MEDICARE, SELFPAY ==
[2020-09-02 16:37] VITALS: BP 145/73; PULSE 90; RESP 18; TEMP 36.3; O2SAT 96; BMI 49.3
[2020-09-02 20:05] VITALS: BP 132/81; PULSE 94; RESP 20; TEMP 37.2; O2SAT 98
--- NOTE | 2020-09-02 21:35 | ED.GENADULT ---
HPI - General Adult General Chief complaint: Abdominal Pain Stated complaint: Constipation Time Seen by Provider: 09/02/20 21:10 History of Present Illness HPI narrative: Please note: Secondary to high volume, there was delay in evaluating this patient. 45-year-old female who presents emergency department for evaluation of constipation and abdominal pain. Patient states that she has not moved her bowels and over 1 week. She states that she is only passing very small hard pebble like stool. She states that she tried to disimpact herself and was unsuccessful. She used [id number] [employer] suppositories and Fleet enema without any success. She states that over the past 1-2 days she has developed left-sided abdominal pain. She describes the pain as a cramping sensation which is constant and is 5/10 at its worst. She has had associated nausea but no vomiting. She denied fever, chills, chest pain, shortness of breath, myalgias, arthralgias, loss of sense of taste or smell. She is not aware of any COVID-19 exposures. Related Data Previous Rx's Medication Instructions Recorded naproxen 500 mg PO BID PRN #20 tab 06/08/20 prednisone 40 mg PO DAILY 5 Days #10 tab NS 06/22/20 ketorolac 10 mg PO Q8H PRN #10 tab 06/29/20 phenazopyridine [Pyridium] 100 mg PO TID PRN #10 tab 06/29/20 doxycycline monohydrate 100 mg PO BID #14 cap 07/08/20 prednisone 40 mg PO DAILY #10 tab 07/08/20 dicyclomine 20 mg PO TID PRN #20 tab 08/20/20 ondansetron HCl [Zofran] 4 mg PO Q8H PRN #10 tab 08/20/20 Allergies Allergy/AdvReac Type Severity Reaction Status Date / Time Penicillins [PENICILLINS] Allergy Severe ANAPHYLAXIS Verified 06/08/20 14:24 adhesive [ADHESIVE] Allergy Unknown RASH Verified 06/08/20 14:24 artichoke [ARTICHOKE] Allergy Unknown RASH Verified 06/08/20 14:24 carbamazepine [From TEGRETOL] Allergy Unknown MIGRAINES Verified 06/08/20 14:24 cariprazine [From VRAYLAR] Allergy Unknown LEG CRAMPS Verified 06/08/20 14:24 fentanyl [FENTANYL] Allergy Unknown RASH Verified 06/08/20 14:24 lamotrigine [From LAMICTAL] Allergy Unknown RASH Verified 06/08/20 14:24 lithium [LITHIUM] AdvReac Severe tremor and Verified 06/08/20 14:24 falls Review of Systems Review of Systems: Yes all other systems are reviewed and are negative Neurologic: Reports Abnormal speech present [facility] Past Medical History Medical History Anxiety Bipolar disease, chronic Depression GERD (gastroesophageal reflux disease) High cholesterol Hypertension Migraines Obstructive sleep apnea PCOS (polycystic ovarian syndrome) Pre-diabetes Renal colic Social History Social History Alcohol intake: never Smoking Status: Current every day smoker Substance Use Type: Marijuana Advance Directives: No Advance Directives Information Provided: Yes Physical Exam Vital Signs: Vital Signs: Last Vital Signs Temp 98.9 F 09/02/20 20:05 Pulse 94 09/02/20 20:05 Resp 20 09/02/20 20:05 BP 132/81 09/02/20 20:05 Pulse Ox 98 09/02/20 20:05 Body Mass Index 49.3 Const: General: cooperative, healthy appearing and other (Very pleasant and cooperative) Nutritional Appearance: obese Orientation/consciousness: oriented to person and oriented to place Limitations: no limitations HENMT: Head: Yes normal to inspection, Yes normocephalic and Yes atraumatic Ears: external ears normal General nose exam: Normal external nose present Face and sinus: Yes normal facial exam Mouth: Normal oral and palatal mucosa present Throat: Yes posterior oropharynx normal Eyes: Periorbital: periorbital findings normal Eyelids: Yes eyelids normal Conjunctivae: conjunctivae normal Sclerae: sclerae normal Corneas: corneas normal Pupils: Equal, round and reactive pupils present Direct Ophthalmoscopy: normal light reflex Neck: Neck: Yes full ROM, Yes no lymphadenopathy, Yes no meningeal signs, Yes trachea midline and Yes supple Chest: Chest palpation & inspection: normal inspection of the chest and normal palpation of entire chest wall Resp: Effort & Inspection: normal respiratory effort and able to speak in complete sentences Auscultation: clear to auscultation bilaterally Cardio: Rate: regular rate Rhythm: regular rhythm Heart sounds: S1 normal heart sound present, S2 normal heart sound present and no murmurs GI: Inspection: Yes normal to inspection Palpation (GI): Soft to palpation, Tenderness to palpation present (GI) other (Moderate, left-sided), no guarding, not rigid and No hepatosplenomegaly present Rectal Exam - Female: visual inspection normal, normal sphincter tone and other (Large amount of hard stool in the rectal vault) : General: Yes no CVA tenderness Back/Spine/Pelvis: Back: no CVA tenderness Cervical Spine: normal cervical lordosis Thoracic/Lumbar Spine: thoracic and lumbar spine normal to inspection Skin: Lesions: no lesions Rashes: no rashes Wounds: no wounds Neuro: General: oriented to person, oriented to place and no meningeal signs Cranial nerves: Yes Equal, round and reactive pupils present Cognition (Neuro): normal cognition Speech: Abnormal speech present Motor exam (neuro): 5/5 motor strength present throughout Extrem: General: Yes normal to inspection and Yes full ROM Psych: Appearance: well kempt Mental Status: mental status grossly normal Speech and movement: Normal speech and movement present Affect: normal affect Attitude: cooperative Thought process: Normal thought process present Thought content: Normal thought content present Course Course Course Narrative: 45-year-old female who presents emergency department for evaluation of constipation x1 week and left-sided abdominal pain times 1-2 days. Physical examination did reveal moderate left-sided abdominal tenderness. Rectal examination revealed that the patient had a large amount of hard stool in the rectal vault. I was chaperoned by the ER nurse and I disimpacted the patient multiple times and removed several large hard stools. The patient was ordered to get a mineral oil enema. 2252: The patient did have a significant bowel movement after receiving a mineral oil enema and she is feeling better. The patient was discharged to home with a bowel regimen advised to follow-up with her PCP for further evaluation. Discharge Plan Discharge Clinical Impression: Fecal impaction Abdominal pain Qualifiers: Abdominal location: left lower quadrant Qualified Code(s): R10.32 - Left lower quadrant pain Constipation Qualifiers: Constipation type: unspecified constipation type Qualified Code(s): K59.00 - Constipation, unspecified Patient Disposition: Home, Self-Care Instructions: Constipation (ED) Additional Instructions: Take the stool softener Colace twice a day. Take Metamucil or MiraLax twice a day. If you do not have a bowel movement after 4 days then take Senokot laxative twice a day. If you do not have a bowel movement after 1 week then take 1/2 bottle of magnesium citrate and use a Fleet's enema. Follow-up with your doctor in 2 days. Please return to the emergency department if your symptoms get worse or if you develop any symptoms that are concerning to you. Prescriptions: No Action prednisone 20 mg tablet 40 mg PO DAILY 5 Days Qty: 10 RF: 0 ketorolac 10 mg tablet 10 mg PO Q8H PRN (Reason: pain) Qty: 10 RF: 0 phenazopyridine [Pyridium] 100 mg tablet 100 mg PO TID PRN (Reason: pain) Qty: 10 RF: 0 naproxen 500 mg tablet 500 mg PO BID PRN (Reason: pain) Qty: 20 RF: 0 prednisone 20 mg tablet 40 mg PO DAILY Qty: 10 RF: 0 doxycycline monohydrate 100 mg capsule 100 mg PO BID Qty: 14 RF: 0 dicyclomine 20 mg tablet 20 mg PO TID PRN (Reason: Abdominal pain and cramping) Qty: 20 RF: 0 ondansetron HCl [Zofran] 4 mg tablet 4 mg PO Q8H PRN (Reason: nausea and vomiting) Qty: 10 RF: 0
[2020-09-02] MEDS: Mineral OiL enema 133 ML ENEMA PR (21:38)
--- NOTE | 2020-09-02 22:42 | PC.NURSE ---
PT WAS DIGITAL DISIMPACTION DONE BY DR BARAJAS LARGE HARD STOOL REMOVED. FLEET EDEMA GIVEN WITH MOD AMOUNTS OF HARD STOOL CAME OUT. PT STATES SHE STILL FEEL BOUND UP.
--- NOTE | 2020-09-02 23:08 | PC.NURSE ---
pt feel relief after 2nd bowel movement.
== END 2020-09-02 23:13 | disposition home or self-care (01) ==
PROVIDERS: Emergency Provider Emergency Medicine Emergency Medical Services
DX: K56.41 Fecal impaction (principal); R10.9 Unspecified abdominal pain; R10.32 Left lower quadrant pain; F17.200 Nicotine dependence, unspecified, uncomplicated; F12.90 Cannabis use, unspecified, uncomplicated; Z71.6 Tobacco abuse counseling; Z79.899 Other long term (current) drug therapy
CPT/HCPCS: 36415; 85025; 85048; 99284

== ENCOUNTER 2020-09-07 11:51 | Outpatient (REF) | payer BC, MEDICARE, SELFPAY ==
[2020-09-07 13:26] LABS: MANUAL DIFF FLAG NO
[2020-09-07 13:31] LABS: Basophils Percent Auto 0.2 % (0-2); Eosinophils Absolute Auto 0.1 X10*3/uL (0.0-0.4); Eosinophils Percent Auto 0.5 % (0-4); Hematocrit 40.1 % (37-47); Hemoglobin 12.8 g/dl (12.0-16.0); Imm Gran Abs Auto 0.02 X10*3/uL (0.00-0.03); Imm Gran Pct Auto 0.2 % (0.0-0.4); Lymphocytes Absolute Auto 2.4 X10*3/uL (1.2-4.9); Lymphocytes Percent Auto 25.1 % (20-40); Mean Corpuscular HGB Conc 31.9 g/dl (31.0-35.0); Mean Corpuscular Hemoglobin 29.8 pg (27.0-33.0); Mean Corpuscular Volume 93.5 fL (80-98); Mean Platelet Volume 10.4 fL (9.4-12.3); Monocytes Absolute Auto 0.5 X10*3/uL (0.1-1.2); Monocytes Percent Auto 4.8 % (2-11); Neut%MD 69.2 %; Neutrophils Absolute Auto 6.7 X10*3/uL (2.0-8.3); Neutrophils Percent Auto 69.2 % (45-73); Platelet Count 261 X10*3/uL (160-400); Red Blood Count 4.29 X10*6/uL (4.20-5.50); Red Cell Distribution Width 13.2 % (11.0-16.0); WBCANC 9.6 X10*3/uL; White Blood Count 9.6 X10*3/uL (4.8-10.8)
== END 2020-09-07 11:52 | disposition home or self-care (01) ==
LOC: HO.LABR 11:51
PROVIDERS: PCP Internal Medicine; Visit Provider Psychiatry & Neurology Psychiatry
DX: Z51.81 Encounter for therapeutic drug level monitoring (principal)
CPT/HCPCS: 36415; 85025; 85048

== ENCOUNTER 2020-09-08 16:07 | Emergency (ER) | payer BC, MEDICARE, SELFPAY ==
[2020-09-08 16:09] VITALS: BP 170/106; PULSE 107; RESP 20; TEMP 36.6; O2SAT 99; BMI 48.9
== END 2020-09-08 16:37 | disposition left against medical advice (07) ==
PROVIDERS: Emergency Provider Emergency Medicine; PCP Internal Medicine
DX: K59.00 Constipation, unspecified (principal)
CPT/HCPCS: 99281; 99282

== ENCOUNTER 2020-09-15 11:45 | Outpatient (REF) | payer BC, MEDICARE, SELFPAY ==
[2020-09-15 12:51] LABS: MANUAL DIFF FLAG NO
[2020-09-15 13:01] LABS: Basophils Percent Auto 0.3 % (0-2); Eosinophils Percent Auto 0.5 % (0-4); Hematocrit 40.9 % (37-47); Hemoglobin 13.1 g/dl (12.0-16.0); Imm Gran Abs Auto 0.03 X10*3/uL (0.00-0.03); Imm Gran Pct Auto 0.3 % (0.0-0.4); Lymphocytes Absolute Auto 2.7 X10*3/uL (1.2-4.9); Lymphocytes Percent Auto 31.4 % (20-40); Mean Corpuscular Hemoglobin 29.8 pg (27.0-33.0); Mean Platelet Volume 10.2 fL (9.4-12.3); Monocytes Absolute Auto 0.4 X10*3/uL (0.1-1.2); Monocytes Percent Auto 4.9 % (2-11); Neut%MD 62.6 %; Neutrophils Absolute Auto 5.4 X10*3/uL (2.0-8.3); Neutrophils Percent Auto 62.6 % (45-73); Platelet Count 299 X10*3/uL (160-400); Red Cell Distribution Width 13.2 % (11.0-16.0); WBCANC 8.6 X10*3/uL; White Blood Count 8.6 X10*3/uL (4.8-10.8)
== END 2020-09-15 11:46 | disposition home or self-care (01) ==
LOC: HO.LABR 11:45
PROVIDERS: PCP Internal Medicine; Visit Provider Psychiatry & Neurology Psychiatry
DX: Z51.81 Encounter for therapeutic drug level monitoring (principal)
CPT/HCPCS: 36415; 85025; 85048

== ENCOUNTER 2020-09-21 13:28 | Outpatient (REF) | payer BC, MEDICARE, SELFPAY ==
[2020-09-21 14:02] LABS: MANUAL DIFF FLAG NO
[2020-09-21 14:12] LABS: Basophils Percent Auto 0.4 % (0-2); Eosinophils Absolute Auto 0.1 X10*3/uL (0.0-0.4); Eosinophils Percent Auto 0.8 % (0-4); Hemoglobin 12.8 g/dl (12.0-16.0); Imm Gran Abs Auto 0.01 X10*3/uL (0.00-0.03); Imm Gran Pct Auto 0.1 % (0.0-0.4); Lymphocytes Absolute Auto 2.4 X10*3/uL (1.2-4.9); Lymphocytes Percent Auto 30.8 % (20-40); Mean Corpuscular HGB Conc 32.8 g/dl (31.0-35.0); Mean Corpuscular Volume 91.5 fL (80-98); Mean Platelet Volume 10.1 fL (9.4-12.3); Monocytes Absolute Auto 0.5 X10*3/uL (0.1-1.2); Monocytes Percent Auto 6.3 % (2-11); Neutrophils Absolute Auto 4.8 X10*3/uL (2.0-8.3); Neutrophils Percent Auto 61.6 % (45-73); Platelet Count 253 X10*3/uL (160-400); Red Blood Count 4.26 X10*6/uL (4.20-5.50); White Blood Count 7.8 X10*3/uL (4.8-10.8)
== END 2020-09-21 13:29 | disposition home or self-care (01) ==
LOC: HO.LABR 13:28
PROVIDERS: Visit Provider Psychiatry & Neurology Psychiatry
DX: Z51.81 Encounter for therapeutic drug level monitoring (principal)
CPT/HCPCS: 36415; 85025

== ENCOUNTER 2020-09-28 10:13 | Outpatient (REF) | payer BC, MEDICARE, SELFPAY ==
[2020-09-28 10:54] LABS: MANUAL DIFF FLAG NO
[2020-09-28 11:01] LABS: Basophils Percent Auto 0.6 % (0-2); Eosinophils Absolute Auto 0.1 X10*3/uL (0.0-0.4); Eosinophils Percent Auto 0.7 % (0-4); Hemoglobin 12.8 g/dl (12.0-16.0); Imm Gran Abs Auto 0.02 X10*3/uL (0.00-0.03); Imm Gran Pct Auto 0.3 % (0.0-0.4); Lymphocytes Absolute Auto 2.1 X10*3/uL (1.2-4.9); Lymphocytes Percent Auto 29.1 % (20-40); Mean Corpuscular HGB Conc 32.8 g/dl (31.0-35.0); Mean Corpuscular Hemoglobin 30.3 pg (27.0-33.0); Mean Corpuscular Volume 92.2 fL (80-98); Mean Platelet Volume 10.4 fL (9.4-12.3); Monocytes Absolute Auto 0.3 X10*3/uL (0.1-1.2); Monocytes Percent Auto 4.6 % (2-11); Neut%MD 64.7 %; Neutrophils Absolute Auto 4.6 X10*3/uL (2.0-8.3); Neutrophils Percent Auto 64.7 % (45-73); Platelet Count 254 X10*3/uL (160-400); Red Blood Count 4.23 X10*6/uL (4.20-5.50); Red Cell Distribution Width 13.2 % (11.0-16.0); WBCANC 7.1 X10*3/uL; White Blood Count 7.1 X10*3/uL (4.8-10.8)
== END 2020-09-28 10:14 | disposition home or self-care (01) ==
LOC: HO.LABR 10:13
PROVIDERS: PCP Internal Medicine; Visit Provider Psychiatry & Neurology Psychiatry
DX: Z51.81 Encounter for therapeutic drug level monitoring (principal)
CPT/HCPCS: 36415; 85025; 85048

== ENCOUNTER 2020-10-05 10:50 | Outpatient (REF) | payer BC, MEDICARE, SELFPAY ==
[2020-10-05 11:29] LABS: MANUAL DIFF FLAG NO
[2020-10-05 11:36] LABS: Basophils Percent Auto 0.4 % (0-2); Eosinophils Absolute Auto 0.1 X10*3/uL (0.0-0.4); Eosinophils Percent Auto 0.8 % (0-4); Hematocrit 39.2 % (37-47); Hemoglobin 12.8 g/dl (12.0-16.0); Imm Gran Abs Auto 0.03 X10*3/uL (0.00-0.03); Imm Gran Pct Auto 0.4 % (0.0-0.4); Lymphocytes Absolute Auto 2.2 X10*3/uL (1.2-4.9); Lymphocytes Percent Auto 25.4 % (20-40); Mean Corpuscular HGB Conc 32.7 g/dl (31.0-35.0); Mean Corpuscular Volume 91.8 fL (80-98); Mean Platelet Volume 10.2 fL (9.4-12.3); Monocytes Absolute Auto 0.5 X10*3/uL (0.1-1.2); Monocytes Percent Auto 5.4 % (2-11); Neut%MD 67.6 %; Neutrophils Absolute Auto 5.8 X10*3/uL (2.0-8.3); Neutrophils Percent Auto 67.6 % (45-73); Platelet Count 275 X10*3/uL (160-400); Red Blood Count 4.27 X10*6/uL (4.20-5.50); Red Cell Distribution Width 13.2 % (11.0-16.0); WBCANC 8.5 X10*3/uL; White Blood Count 8.5 X10*3/uL (4.8-10.8)
== END 2020-10-05 10:51 | disposition home or self-care (01) ==
LOC: HO.LABR 10:50
PROVIDERS: Visit Provider Psychiatry & Neurology Psychiatry
DX: Z51.81 Encounter for therapeutic drug level monitoring (principal)
CPT/HCPCS: 36415; 85025; 85048

== ENCOUNTER 2020-10-12 11:35 | Outpatient (REF) | payer BC, MEDICARE, SELFPAY ==
[2020-10-12 12:11] LABS: MANUAL DIFF FLAG NO
[2020-10-12 12:19] LABS: Basophils Percent Auto 0.4 % (0-2); Eosinophils Absolute Auto 0.1 X10*3/uL (0.0-0.4); Eosinophils Percent Auto 0.9 % (0-4); Hematocrit 38.7 % (37-47); Hemoglobin 12.7 g/dl (12.0-16.0); Imm Gran Abs Auto 0.01 X10*3/uL (0.00-0.03); Imm Gran Pct Auto 0.1 % (0.0-0.4); Lymphocytes Absolute Auto 2.2 X10*3/uL (1.2-4.9); Lymphocytes Percent Auto 31.2 % (20-40); Mean Corpuscular HGB Conc 32.8 g/dl (31.0-35.0); Mean Corpuscular Hemoglobin 30.2 pg (27.0-33.0); Mean Corpuscular Volume 91.9 fL (80-98); Mean Platelet Volume 10.3 fL (9.4-12.3); Monocytes Absolute Auto 0.4 X10*3/uL (0.1-1.2); Monocytes Percent Auto 6.2 % (2-11); Neut%MD 61.2 %; Neutrophils Absolute Auto 4.2 X10*3/uL (2.0-8.3); Neutrophils Percent Auto 61.2 % (45-73); Platelet Count 255 X10*3/uL (160-400); Red Blood Count 4.21 X10*6/uL (4.20-5.50); Red Cell Distribution Width 13.2 % (11.0-16.0); WBCANC 6.9 X10*3/uL; White Blood Count 6.9 X10*3/uL (4.8-10.8)
== END 2020-10-12 11:36 | disposition home or self-care (01) ==
LOC: HO.LABR 11:35
PROVIDERS: PCP Internal Medicine; Visit Provider Psychiatry & Neurology Psychiatry
DX: Z51.81 Encounter for therapeutic drug level monitoring (principal)
CPT/HCPCS: 36415; 85025; 85048

== ENCOUNTER 2020-10-19 11:00 | Outpatient (REF) | payer BC, MEDICARE, SELFPAY ==
[2020-10-19 11:39] LABS: MANUAL DIFF FLAG NO
[2020-10-19 11:51] LABS: Basophils Percent Auto 0.4 % (0-2); Eosinophils Absolute Auto 0.1 X10*3/uL (0.0-0.4); Eosinophils Percent Auto 0.7 % (0-4); Hematocrit 38.5 % (37-47); Hemoglobin 12.7 g/dl (12.0-16.0); Imm Gran Abs Auto 0.04 X10*3/uL (0.00-0.03); Imm Gran Pct Auto 0.4 % (0.0-0.4); Lymphocytes Absolute Auto 2.5 X10*3/uL (1.2-4.9); Lymphocytes Percent Auto 23.7 % (20-40); Mean Corpuscular Hemoglobin 30.2 pg (27.0-33.0); Mean Corpuscular Volume 91.4 fL (80-98); Mean Platelet Volume 10.7 fL (9.4-12.3); Monocytes Absolute Auto 0.4 X10*3/uL (0.1-1.2); Monocytes Percent Auto 4.2 % (2-11); Neut%MD 70.6 %; Neutrophils Absolute Auto 7.4 X10*3/uL (2.0-8.3); Neutrophils Percent Auto 70.6 % (45-73); Platelet Count 238 X10*3/uL (160-400); Red Blood Count 4.21 X10*6/uL (4.20-5.50); Red Cell Distribution Width 12.9 % (11.0-16.0); WBCANC 10.5 X10*3/uL; White Blood Count 10.5 X10*3/uL (4.8-10.8)
== END 2020-10-19 11:01 | disposition home or self-care (01) ==
LOC: HO.LABR 11:00
PROVIDERS: PCP Internal Medicine; Visit Provider Psychiatry & Neurology Psychiatry
DX: Z51.81 Encounter for therapeutic drug level monitoring (principal)
CPT/HCPCS: 36415; 85025; 85048

== ENCOUNTER 2020-10-26 08:53 | Outpatient (REF) | payer BC, MEDICARE, SELFPAY ==
[2020-10-26 09:45] LABS: MANUAL DIFF FLAG NO
[2020-10-26 09:49] LABS: Basophils Percent Auto 0.4 % (0-2); Eosinophils Absolute Auto 0.1 X10*3/uL (0.0-0.4); Eosinophils Percent Auto 1.1 % (0-4); Hematocrit 39.5 % (37-47); Hemoglobin 12.5 g/dl (12.0-16.0); Imm Gran Abs Auto 0.03 X10*3/uL (0.00-0.03); Imm Gran Pct Auto 0.4 % (0.0-0.4); Lymphocytes Absolute Auto 1.8 X10*3/uL (1.2-4.9); Lymphocytes Percent Auto 26.3 % (20-40); Mean Corpuscular HGB Conc 31.6 g/dl (31.0-35.0); Mean Corpuscular Hemoglobin 29.6 pg (27.0-33.0); Mean Corpuscular Volume 93.4 fL (80-98); Mean Platelet Volume 10.6 fL (9.4-12.3); Monocytes Absolute Auto 0.3 X10*3/uL (0.1-1.2); Monocytes Percent Auto 4.9 % (2-11); Neut%MD 66.9 %; Neutrophils Absolute Auto 4.7 X10*3/uL (2.0-8.3); Neutrophils Percent Auto 66.9 % (45-73); Platelet Count 255 X10*3/uL (160-400); Red Blood Count 4.23 X10*6/uL (4.20-5.50); Red Cell Distribution Width 13.3 % (11.0-16.0)
== END 2020-10-26 08:54 | disposition home or self-care (01) ==
LOC: HO.LABR 08:53
PROVIDERS: PCP Internal Medicine; Visit Provider Psychiatry & Neurology Psychiatry
DX: Z51.81 Encounter for therapeutic drug level monitoring (principal)
CPT/HCPCS: 36415; 85025; 85048

== ENCOUNTER 2020-11-02 13:50 | Outpatient (REF) | payer MEDICARE, SELFPAY ==
[2020-11-02 14:14] LABS: MANUAL DIFF FLAG NO
[2020-11-02 14:22] LABS: Basophils Percent Auto 0.4 % (0-2); Eosinophils Absolute Auto 0.1 X10*3/uL (0.0-0.4); Eosinophils Percent Auto 0.7 % (0-4); Hematocrit 38.9 % (37-47); Imm Gran Abs Auto 0.04 X10*3/uL (0.00-0.03); Imm Gran Pct Auto 0.4 % (0.0-0.4); Lymphocytes Absolute Auto 2.6 X10*3/uL (1.2-4.9); Mean Corpuscular HGB Conc 33.4 g/dl (31.0-35.0); Mean Corpuscular Hemoglobin 30.1 pg (27.0-33.0); Mean Platelet Volume 10.2 fL (9.4-12.3); Monocytes Absolute Auto 0.5 X10*3/uL (0.1-1.2); Monocytes Percent Auto 4.9 % (2-11); Neut%MD 68.6 %; Neutrophils Absolute Auto 7.2 X10*3/uL (2.0-8.3); Neutrophils Percent Auto 68.6 % (45-73); Platelet Count 265 X10*3/uL (160-400); Red Blood Count 4.32 X10*6/uL (4.20-5.50); Red Cell Distribution Width 12.7 % (11.0-16.0); WBCANC 10.5 X10*3/uL; White Blood Count 10.5 X10*3/uL (4.8-10.8)
== END 2020-11-02 13:51 | disposition home or self-care (01) ==
LOC: HO.LABR 13:50
PROVIDERS: PCP Internal Medicine; Visit Provider Psychiatry & Neurology Psychiatry
DX: Z51.81 Encounter for therapeutic drug level monitoring (principal)
CPT/HCPCS: 36415; 85025; 85048

== ENCOUNTER 2020-11-16 14:34 | Outpatient (REF) | payer MEDICARE, SELFPAY ==
[2020-11-16 15:06] LABS: MANUAL DIFF FLAG NO
[2020-11-16 15:10] LABS: Basophils Percent Auto 0.4 % (0-2); Eosinophils Absolute Auto 0.1 X10*3/uL (0.0-0.4); Eosinophils Percent Auto 0.6 % (0-4); Hematocrit 39.1 % (37-47); Hemoglobin 13.1 g/dl (12.0-16.0); Imm Gran Abs Auto 0.02 X10*3/uL (0.00-0.03); Imm Gran Pct Auto 0.2 % (0.0-0.4); Lymphocytes Absolute Auto 2.7 X10*3/uL (1.2-4.9); Lymphocytes Percent Auto 31.1 % (20-40); Mean Corpuscular HGB Conc 33.5 g/dl (31.0-35.0); Mean Corpuscular Hemoglobin 30.3 pg (27.0-33.0); Mean Corpuscular Volume 90.3 fL (80-98); Mean Platelet Volume 10.6 fL (9.4-12.3); Monocytes Absolute Auto 0.4 X10*3/uL (0.1-1.2); Monocytes Percent Auto 4.7 % (2-11); Neutrophils Absolute Auto 5.4 X10*3/uL (2.0-8.3); Platelet Count 235 X10*3/uL (160-400); Red Blood Count 4.33 X10*6/uL (4.20-5.50); Red Cell Distribution Width 12.6 % (11.0-16.0); WBCANC 8.5 X10*3/uL; White Blood Count 8.5 X10*3/uL (4.8-10.8)
== END 2020-11-16 14:35 | disposition home or self-care (01) ==
LOC: HO.LABR 14:34
PROVIDERS: PCP Internal Medicine; Visit Provider Psychiatry & Neurology Psychiatry
DX: Z79.899 Other long term (current) drug therapy (principal)
CPT/HCPCS: 36415; 85025; 85048

== ENCOUNTER 2020-11-19 17:01 | Emergency (ER) | payer BC, SELFPAY ==
[2020-11-19 17:03] VITALS: BP 142/86; PULSE 99; RESP 18; TEMP 36.9; O2SAT 96; BMI 50.4
[2020-11-19 17:34] LABS: Glucose Urine UA >=1000 MG/DL (NEG); Leukocyte Esterase Urine NEG (NEG); Nitrite Urine NEG (NEG); PH 6.5 (5.0-8.0); Specific Gravity - Urine <= 1.005 (1.005-1.025); Urine Blood TRACE (NEG); Urine Ketones NEG (NEG); Urine Protein NEG (NEG-TRACE)
--- NOTE | 2020-11-19 17:37 | ED_ITS ---
HPI - General Adult General Chief complaint: General Medical Stated complaint: ?Abscess Time Seen by Provider: 11/19/20 17:43 Source: patient Mode of arrival: ambulatory Limitations: no limitations History of Present Illness HPI narrative: 45-year-old female presents for rectal pain, large rectal lumps, and pain on defecation. She is also reporting bladder spasm urinary symptoms. She denies fevers, chills, patients, shortness of breath, abdominal pain, abdominal distention, hematuria, change in bowel habits and any other concerning symptoms. Related Data Previous Rx's Medication Instructions Recorded naproxen 500 mg PO BID PRN #20 tab 06/08/20 prednisone 40 mg PO DAILY 5 Days #10 tab NS 06/22/20 ketorolac 10 mg PO Q8H PRN #10 tab 06/29/20 phenazopyridine [Pyridium] 100 mg PO TID PRN #10 tab 06/29/20 doxycycline monohydrate 100 mg PO BID #14 cap 07/08/20 prednisone 40 mg PO DAILY #10 tab 07/08/20 dicyclomine 20 mg PO TID PRN #20 tab 08/20/20 ondansetron HCl [Zofran] 4 mg PO Q8H PRN #10 tab 08/20/20 Allergies Allergy/AdvReac Type Severity Reaction Status Date / Time Penicillins [PENICILLINS] Allergy Severe ANAPHYLAXIS Verified 06/08/20 14:24 adhesive [ADHESIVE] Allergy Unknown RASH Verified 06/08/20 14:24 artichoke [ARTICHOKE] Allergy Unknown RASH Verified 06/08/20 14:24 carbamazepine [From TEGRETOL] Allergy Unknown MIGRAINES Verified 06/08/20 14:24 cariprazine [From VRAYLAR] Allergy Unknown LEG CRAMPS Verified 06/08/20 14:24 fentanyl [FENTANYL] Allergy Unknown RASH Verified 06/08/20 14:24 lamotrigine [From LAMICTAL] Allergy Unknown RASH Verified 06/08/20 14:24 lithium [LITHIUM] AdvReac Severe tremor and Verified 06/08/20 14:24 falls Review of Systems Review of Systems: Constitutional: No Fever, No Chills ENT/Mouth: No Ear Pain, No Hoarseness, No sore throat Eyes: No Eye Pain, No Swelling, No Redness, No Foreign Body Cardiovascular: No Chest Pain, No SOB Respiratory: No Cough, No Dyspnea Gastrointestinal: No Nausea, No Vomiting, No Diarrhea, No abdominal Pain Genitourinary: Positive for rectal pain with large hemorrhoids, positive Dysuria, No Hematuria Musculoskeletal: No joint pain, No Myalgias, No Joint Swelling Skin: No Skin lacerations, No rash Neuro: No Weakness, No Numbness, No Paresthesias, No Loss of Consciousness, No Dizziness, No Headache Psych: No Anxiety/Panic, No Depression Heme/Lymph: no easy bruising, no Lymphadenopathy Endocrine: No Polyuria, No Polydipsia Yes all other systems are reviewed and are negative [facility] Past Medical History Attestation statement: The following information was validated with the patient. Source: old records reviewed Medical History Anxiety Bipolar disease, chronic Depression GERD (gastroesophageal reflux disease) High cholesterol Hypertension Migraines Obstructive sleep apnea PCOS (polycystic ovarian syndrome) Pre-diabetes Renal colic Social History Social History Alcohol intake: never Smoking Status: Current every day smoker Use of substances other than those prescribed or required for medical reasons: No Substance Use Type: Marijuana Advance Directives: No Advance Directives Information Provided: No Physical Exam Vital Signs: Vital Signs: Last Vital Signs Temp 98.5 F 11/19/20 17:03 Pulse 99 11/19/20 17:03 Resp 18 11/19/20 17:03 BP 142/86 H 11/19/20 17:03 Pulse Ox 96 11/19/20 17:03 Body Mass Index 50.4 Appearance: Alert. Oriented X3. No acute distress. Eyes: Pupils equal, round and reactive to light. ENT: Pharynx normal. Neck: Normal inspection. Neck supple. CVS: Normal heart rate and rhythm. Pulses normal. Respiratory: No respiratory distress. Breath sounds normal. Abdomen: Soft and nontender. Genitourinary: 4 cm x 2 cm external hemorrhoid, normal rectal tone Skin: Skin warm and dry. Normal skin color. Normal skin turgor. Extremities: No lower extremity edema. Neuro: No motor deficit. No sensory deficit. Course Course Course Narrative: 45-year-old female presents with inflamed hemorrhoids. She has a large 4 cm x 2 cm non thrombosed external hemorrhoid. We will give dibucaine and hydrocortisone 2.5% rectal ointment. Urinalysis is pending for her urinary symptoms. Urinalysis is negative. Plan of care is to discharged home and have patient follow-up with outpatient surgery. We referred to Dr. Valdez. Detailed description with patient regarding other methods for hemorrhoid relief including Sitz baths, donuts, and medication administration. Patient verbalized understanding of and agrees to plan of care discharge to her home. Medical Decision Making Differential Diagnosis Differential Diagnosis: Hemorrhoids, abscess Medical Records Medical records reviewed: Yes I reviewed the patient's medical records. Lab Data Lab results reviewed: Yes I reviewed the patient's lab results. Labs: Lab Results 11/19/20 Range/Units 17:19 Urine Color YELLOW Urine Appearance CLEAR Urine pH 6.5 (5.0-8.0) Ur Specific [place] <= 1.005 (1.005-1.025) Urine Protein NEG (NEG-TRACE) MG/DL Urine Glucose (UA) >=1000 H (NEG) MG/DL Urine Ketones NEG (NEG) MG/DL Urine Blood TRACE (NEG) Urine Nitrite NEG (NEG) Ur Leukocyte Esterase NEG (NEG) Urine RBC 0-2 (0) /HPF Urine WBC 0 (0-4) /HPF Ur Squamous Epith Cells TRACE /LPF Urine Bacteria TRACE /LPF Discharge Plan Discharge Clinical Impression: External hemorrhoid Patient Disposition: Home, Self-Care Instructions: Hemorrhoids (ED) Additional Instructions: You were evaluated for very large external hemorrhoids. Please call Dr. Valdez, he is a surgeon, for evaluation. Is highly recommended that you have these hemorrhoids surgically evaluated. Please use hydrocortisone cream 3 times a day as needed. Please use lidocaine ointment for pain management. Use this medication sparingly. Please call the hospital and request for financial services. They may be able to help you with insurance. Thank you for choosing this emergency department for evaluation. Please follow-up with primary care physician as needed. Return to the emergency department for any new, concerning, or worsening symptoms. Prescriptions: No Action prednisone 20 mg tablet 40 mg PO DAILY 5 Days Qty: 10 RF: 0 ketorolac 10 mg tablet 10 mg PO Q8H PRN (Reason: pain) Qty: 10 RF: 0 phenazopyridine [Pyridium] 100 mg tablet 100 mg PO TID PRN (Reason: pain) Qty: 10 RF: 0 naproxen 500 mg tablet 500 mg PO BID PRN (Reason: pain) Qty: 20 RF: 0 prednisone 20 mg tablet 40 mg PO DAILY Qty: 10 RF: 0 doxycycline monohydrate 100 mg capsule 100 mg PO BID Qty: 14 RF: 0 dicyclomine 20 mg tablet 20 mg PO TID PRN (Reason: Abdominal pain and cramping) Qty: 20 RF: 0 ondansetron HCl [Zofran] 4 mg tablet 4 mg PO Q8H PRN (Reason: nausea and vomiting) Qty: 10 RF: 0 Referrals: Giuliano Valdez MD [Physician] - 2 days (Large external hemorrhoids) Interventions: ED Discharge Assessment Last Done: 11/19/20 20:11 Discharge Date/Time: 11/19/20 20:12
[2020-11-19 18:02] LABS: Appearance Urine CLEAR; Color Urine YELLOW
[2020-11-19 18:33] LABS: Bacteria Urine TRACE /LPF; RBC Urine 0-2 /HPF (0); Squamous Epithelial Cell Urine TRACE /LPF; WBC Urine 0 /HPF (0-4)
[2020-11-19] MEDS: Hydrocortisone 2.5 % Rectal Cr 30 GM TUBE 1 APPL PR (19:46)
== END 2020-11-19 20:12 | disposition home or self-care (01) ==
PROVIDERS: Emergency Provider Emergency Medicine; PCP Internal Medicine
DX: K64.4 Residual hemorrhoidal skin tags (principal); K21.9 Gastro-esophageal reflux disease without esophagitis; I10 Essential (primary) hypertension; F12.90 Cannabis use, unspecified, uncomplicated; F17.200 Nicotine dependence, unspecified, uncomplicated
CPT/HCPCS: 81001; 99283; 99284

== ENCOUNTER → 2020-11-22 15:41 | Outpatient (BNVA) | payer BC, MEDICARE, SELFPAY | PROVIDERS: PCP Internal Medicine; Visit Provider Surgery | DX: K64.5 Perianal venous thrombosis (principal) | CPT/HCPCS: 46083; 99202 ==

== ENCOUNTER 2020-11-30 10:02 | Outpatient (REF) | payer MEDICARE, MEDICAID, SELFPAY ==
[2020-11-30 10:48] LABS: MANUAL DIFF FLAG NO
[2020-11-30 10:54] LABS: Basophils Percent Auto 0.5 % (0-2); Eosinophils Percent Auto 0.5 % (0-4); Hematocrit 41.7 % (37-47); Hemoglobin 13.5 g/dl (12.0-16.0); Imm Gran Abs Auto 0.02 X10*3/uL (0.00-0.03); Imm Gran Pct Auto 0.3 % (0.0-0.4); Lymphocytes Absolute Auto 1.6 X10*3/uL (1.2-4.9); Lymphocytes Percent Auto 24.5 % (20-40); Mean Corpuscular HGB Conc 32.4 g/dl (31.0-35.0); Mean Corpuscular Hemoglobin 29.5 pg (27.0-33.0); Mean Platelet Volume 10.9 fL (9.4-12.3); Monocytes Absolute Auto 0.4 X10*3/uL (0.1-1.2); Monocytes Percent Auto 5.5 % (2-11); Neut%MD 68.7 %; Neutrophils Absolute Auto 4.4 X10*3/uL (2.0-8.3); Neutrophils Percent Auto 68.7 % (45-73); Platelet Count 228 X10*3/uL (160-400); Red Blood Count 4.58 X10*6/uL (4.20-5.50); Red Cell Distribution Width 12.6 % (11.0-16.0); WBCANC 6.4 X10*3/uL; White Blood Count 6.4 X10*3/uL (4.8-10.8)
== END 2020-11-30 10:03 | disposition home or self-care (01) ==
LOC: HO.LABR 10:02
PROVIDERS: PCP Internal Medicine; Visit Provider Psychiatry & Neurology Psychiatry
DX: Z51.81 Encounter for therapeutic drug level monitoring (principal); Z79.899 Other long term (current) drug therapy
CPT/HCPCS: 36415; 85025; 85048

== ENCOUNTER 2020-12-14 14:03 | Outpatient (REF) | payer MEDICARE, MEDICAID, SELFPAY ==
[2020-12-14 14:30] LABS: MANUAL DIFF FLAG NO
[2020-12-14 14:34] LABS: Basophils Percent Auto 0.4 % (0-2); Eosinophils Absolute Auto 0.1 X10*3/uL (0.0-0.4); Eosinophils Percent Auto 0.7 % (0-4); Hematocrit 41.5 % (37-47); Hemoglobin 13.7 g/dl (12.0-16.0); Imm Gran Abs Auto 0.02 X10*3/uL (0.00-0.03); Imm Gran Pct Auto 0.2 % (0.0-0.4); Lymphocytes Absolute Auto 2.5 X10*3/uL (1.2-4.9); Lymphocytes Percent Auto 24.8 % (20-40); Mean Corpuscular Hemoglobin 29.7 pg (27.0-33.0); Mean Platelet Volume 10.8 fL (9.4-12.3); Monocytes Absolute Auto 0.6 X10*3/uL (0.1-1.2); Monocytes Percent Auto 5.5 % (2-11); Neutrophils Absolute Auto 6.8 X10*3/uL (2.0-8.3); Neutrophils Percent Auto 68.4 % (45-73); Platelet Count 259 X10*3/uL (160-400); Red Blood Count 4.61 X10*6/uL (4.20-5.50); Red Cell Distribution Width 12.4 % (11.0-16.0); White Blood Count 9.9 X10*3/uL (4.8-10.8)
== END 2020-12-14 14:04 | disposition home or self-care (01) ==
LOC: HO.LABR 14:03
PROVIDERS: PCP Internal Medicine; Visit Provider Psychiatry & Neurology Psychiatry
DX: Z51.81 Encounter for therapeutic drug level monitoring (principal)
CPT/HCPCS: 36415; 85025

== ENCOUNTER 2020-12-20 19:56 | Emergency (ER) | payer MEDICARE, MEDICAID, SELFPAY ==
--- NOTE | ~2020-12-20 | XR_ITS ---
EXAMINATION: XR CHEST CLINICAL INFORMATION: Chest pain COMPARISON: 08/15/2020 TECHNIQUE: Frontal view of the chest was obtained. FINDINGS: Cardiac leads overlie the chest. The lungs are well expanded. There is no focal consolidation, edema, or effusion. No pneumothorax. The cardiomediastinal silhouette is within normal limits. No acute osseous abnormality. XR/XR chest 1V IMPRESSION: Clear lungs.
[2020-12-20 19:57] VITALS: BP 168/89; PULSE 93; RESP 16; TEMP 36.7; O2SAT 95; BMI 50.1
[2020-12-20 23:58] VITALS: BP 143/83; PULSE 85; RESP 18; TEMP 37.1; O2SAT 96
--- NOTE | 2020-12-21 00:13 | ECG_ITS ---
Test Reason : CP/SOB Blood Pressure : / mmHG Vent. Rate : 085 BPM Atrial Rate : 085 BPM P-R Int : 188 ms QRS Dur : 088 ms QT Int : 378 ms P-R-T Axes : 035 006 034 degrees QTc Int : 449 ms Normal sinus rhythm Moderate voltage criteria for LVH, may be normal variant Borderline ECG When compared with ECG of 20-AUG-2020 16:04, No significant change was found Referred By: Keila Girgsby Electronically Signed By:MAGGIE MONTOYA MD
[2020-12-21 00:19] LABS: MANUAL DIFF FLAG NO
[2020-12-21 00:21] LABS: Basophils Percent Auto 0.4 % (0-2); Eosinophils Absolute Auto 0.1 X10*3/uL (0.0-0.4); Eosinophils Percent Auto 0.9 % (0-4); Hematocrit 41.9 % (37-47); Hemoglobin 14.1 g/dl (12.0-16.0); Imm Gran Abs Auto 0.02 X10*3/uL (0.00-0.03); Imm Gran Pct Auto 0.2 % (0.0-0.4); Lymphocytes Absolute Auto 3.5 X10*3/uL (1.2-4.9); Lymphocytes Percent Auto 40.8 % (20-40); Mean Corpuscular HGB Conc 33.7 g/dl (31.0-35.0); Mean Corpuscular Hemoglobin 29.9 pg (27.0-33.0); Mean Platelet Volume 10.3 fL (9.4-12.3); Monocytes Absolute Auto 0.5 X10*3/uL (0.1-1.2); Monocytes Percent Auto 5.4 % (2-11); Neutrophils Absolute Auto 4.5 X10*3/uL (2.0-8.3); Neutrophils Percent Auto 52.3 % (45-73); Platelet Count 241 X10*3/uL (160-400); Red Blood Count 4.71 X10*6/uL (4.20-5.50); Red Cell Distribution Width 12.2 % (11.0-16.0); White Blood Count 8.6 X10*3/uL (4.8-10.8)
--- NOTE | 2020-12-21 00:21 | PC.NURSE ---
IV established, labs obtained. EKG obtained. Awaiting primary MD hercules.
--- NOTE | 2020-12-21 00:32 | PC.NURSE ---
Pt ambulating to the bathroom with a powers/steady gait to provide UA. UA obtained and sent. Awaiting primary MD hercules.
[2020-12-21 00:39] LABS: Anion Gap 16 (12-20); Blood Urea Nitrogen 10 mg/dL (9-16); Calcium 8.8 mg/dL (8.4-10.2); Carbon Dioxide 22 mmol/L (22-29); Chloride 101 mmol/L (96-108); Creatinine Clr Calc Pharmacy 136.6; Estimated Glomerular Filt Rate > 60; Glucose Random 347 mg/dL (60-115); Potassium 3.8 mmol/L (3.3-5.1); Sodium 135 mmol/L (135-145)
[2020-12-21 00:40] LABS: Glucose Urine UA 500 MG/DL (NEG); Leukocyte Esterase Urine NEG (NEG); Nitrite Urine NEG (NEG); Specific Gravity - Urine >= 1.030 (1.005-1.025); Urine Blood 2+ (NEG); Urine Ketones 15 MG/DL (NEG); Urine Protein TRACE MG/DL (NEG-TRACE)
[2020-12-21 00:41] LABS: Appearance Urine CLEAR; Color Urine YELLOW
[2020-12-21 00:43] LABS: UPreg QC Valid YES; Urine Pregnancy NEGATIVE (NEGATIVE)
[2020-12-21 00:47] LABS: Troponin-I High Sensitivity < 3.5 ng/L (<3.5-17.0)
[2020-12-21 00:49] LABS: Bacteria Urine TRACE /LPF; RBC Urine 0-2 /HPF (0); Squamous Epithelial Cell Urine TRACE /LPF; WBC Urine 0-2 /HPF (0-4)
[2020-12-21 00:55] LABS: Alanine Aminotransferase 35 U/L (0-31); Albumin Level 4.3 g/dL (3.5-5.0); Alkaline Phosphatase 99 U/L (39-117); Aspartate Amino Transferase 20 U/L (5-31); Bilirubin Direct < 0.2 mg/dL (0.0-0.5); Bilirubin Total 0.3 mg/dL (0.0-1.0)
--- NOTE | 2020-12-21 00:57 | ED.NEUROSD ---
HPI - Neuro Symptoms/Deficit General Chief Complaint: Neuro Symptoms/Deficit Stated Complaint: numbness Time Seen by Provider: 12/21/20 00:24 Source: patient Mode of arrival: ambulatory History of Present Illness HPI Narrative: 45-year-old female reports several days of right hand numbness specifically across the right thenar with tingling and states that she has tried the cock-up splint with limited success. In addition, patient states that approximately 1800 this evening started with tingling of the right side of the tongue as well as lip numbness and heaviness in her right leg and states that she feels dazed. In addition, patient describes chest pressure. She denies any recent fevers, chills and states she got her 1st COVID vaccine approximately 1 week ago. Related Data Home Medications Medication Instructions Recorded Confirmed atorvastatin 20 mg tablet 20 mg PO DAILY 11/22/20 clonazepam 1 mg tablet 1 mg PO TID 11/22/20 clozapine 100 mg tablet 50 mg PO BID 11/22/20 clozapine 50 mg tablet 50 mg PO DAILY tab 11/22/20 linaclotide 145 mcg capsule 145 mcg PO DAILY 11/22/20 lisinopril 40 mg tablet 40 mg PO DAILY 11/22/20 metoprolol succinate 50 mg 50 mg PO DAILY 11/22/20 tablet,extended release 24 hr pantoprazole 40 mg tablet,delayed 40 mg PO DAILY 11/22/20 release Previous Rx's Medication Instructions Recorded naproxen 500 mg PO BID PRN #20 tab 06/08/20 prednisone 40 mg PO DAILY 5 Days #10 tab NS 06/22/20 ketorolac 10 mg PO Q8H PRN #10 tab 06/29/20 phenazopyridine [Pyridium] 100 mg PO TID PRN #10 tab 06/29/20 doxycycline monohydrate 100 mg PO BID #14 cap 07/08/20 prednisone 40 mg PO DAILY #10 tab 07/08/20 dicyclomine 20 mg PO TID PRN #20 tab 08/20/20 ondansetron HCl [Zofran] 4 mg PO Q8H PRN #10 tab 08/20/20 Allergies Allergy/AdvReac Type Severity Reaction Status Date / Time Penicillins [PENICILLINS] Allergy Severe ANAPHYLAXIS Verified 11/22/20 15:57 adhesive [ADHESIVE] Allergy Unknown RASH Verified 11/22/20 15:57 artichoke [ARTICHOKE] Allergy Unknown RASH Verified 11/22/20 15:57 carbamazepine [From TEGRETOL] Allergy Unknown MIGRAINES Verified 11/22/20 15:57 cariprazine [From VRAYLAR] Allergy Unknown LEG CRAMPS Verified 11/22/20 15:57 fentanyl [FENTANYL] Allergy Unknown RASH Verified 11/22/20 15:57 lamotrigine [From LAMICTAL] Allergy Unknown RASH Verified 11/22/20 15:57 lithium [LITHIUM] AdvReac Severe tremor and Verified 11/22/20 15:57 falls Review of Systems Review of Systems: Pertinent positives and negatives as stated in HPI 10 point review of systems is otherwise negative. PMFSH Past Medical History Source: nursing notes reviewed Medical History Anxiety Bipolar disease, chronic Depression GERD (gastroesophageal reflux disease) High cholesterol Hypertension Migraines Morbid obesity with BMI of 45.0-49.9, adult Obstructive sleep apnea PCOS (polycystic ovarian syndrome) Pre-diabetes Renal colic Thrombosed external hemorrhoid Surgical History History of dilation and curettage Family History Family History Other Breast cancer Social History Social History Alcohol intake: never Smoking Status: Current every day smoker Substance Use Type: Marijuana Advance Directives: No Physical Exam Vital Signs: Vital Signs: Last Vital Signs Temp 98.1 F 12/21/20 01:27 Pulse 83 12/21/20 01:27 Resp 22 H 12/21/20 01:27 BP 126/81 12/21/20 01:27 Pulse Ox 96 12/21/20 01:27 Body Mass Index 50.1 VITAL SIGNS: Reviewed. GENERAL: Well developed, well nourished, in no acute distress. HEAD: Normocephalic/atraumatic, EYES: PERRLA, EOMI intact without pain, no nystagmus EARS: Ext canals without abnormality NOSE: Nares patent bilateral OROPHARYNX: no oral lesions noted, posterior pharynx clear NECK: Supple, no adenopathy LUNGS: Normal breath sounds. No adventitious sounds or accessory muscle use. SpO2<96> CARDIOVASCULAR: Regular rate and rhythm without noted murmurs ABDOMEN: Obese, Soft, non-tender, non-distended with bowel sounds. NEUROLOGIC: Alert and oriented x 4. Strength and sensation to light touch were grossly intact x 4, no facial asymmetry, no pronator drift, cerebellar testing intact, cranial nerves 2-12 are grossly intact.. Course Course Course Narrative: [age] female with history and clinical presentation suggestive anxiety or radicular symptoms but will evaluate for cardiopulmonary etiologies as well given patient's chest pressure. Review of all investigations acute findings to include evaluation of ESR which is found to be within normal limits. Patient has no focal deficits and low suspicion for any intracranial pathologies. Patient was informed of all results at the bedside and she is discharged home in stable condition with recommendations to follow-up with her primary care provider. MDM - Neuro Symptoms/Deficit Lab Data Result diagrams: 12/21/20 00:16 12/21/20 00:16 Labs: Lab Results 12/21/20 12/21/20 12/21/20 Range/Units 00:16 00:16 00:16 WBC 8.6 (4.8-10.8) X10*3/uL RBC 4.71 (4.20-5.50) X10*6/uL Hgb 14.1 (12.0-16.0) g/dl Hct 41.9 (37-47) % MCV 89.0 (80-98) fL MCH 29.9 (27.0-33.0) pg MCHC 33.7 (31.0-35.0) g/dl RDW 12.2 (11.0-16.0) % Plt Count 241 (160-400) X10*3/uL MPV 10.3 (9.4-12.3) fL Immature Gran % (Auto) 0.2 (0.0-0.4) % Neut % (Auto) 52.3 (45-73) % Lymph % (Auto) 40.8 H (20-40) % [place] % (Auto) 5.4 (2-11) % Eos % (Auto) 0.9 (0-4) % Baso % (Auto) 0.4 (0-2) % Lymph # (Auto) 3.5 (1.2-4.9) X10*3/uL [place] # (Auto) 0.5 (0.1-1.2) X10*3/uL Eos # (Auto) 0.1 (0.0-0.4) X10*3/uL Baso # (Auto) 0.0 (0.0-0.2) X10*3/uL Abs Immat Gran (auto) 0.02 (0.00-0.03) X10*3/uL Absolute Neuts (auto) 4.5 (2.0-8.3) X10*3/uL Absolute Nucleated RBC 0.000 (0.0-0.012) X10*3/uL Nucleated RBC % (auto) 0.0 (0.0-0.2) /100WBC ESR (0-20) MM/HR Hold Blue Top SEE NOTE Sodium 135 (135-145) mmol/L Potassium 3.8 (3.3-5.1) mmol/L Chloride 101 (96-108) mmol/L Carbon Dioxide 22 (22-29) mmol/L Anion Gap 16 (12-20) BUN 10 (9-16) mg/dL Creatinine 0.78 (0.5-1.4) mg/dL Estim Creat Clear Calc 136.6 Estimated GFR > 60 Random Glucose 347 H D (60-115) mg/dL Calcium 8.8 (8.4-10.2) mg/dL Total Bilirubin 0.3 (0.0-1.0) mg/dL Direct Bilirubin < 0.2 (0.0-0.5) mg/dL AST 20 (5-31) U/L ALT 35 H (0-31) U/L Alkaline Phosphatase 99 (39-117) U/L Troponin I High Sens (<3.5-17.0) ng/L Total Protein 7.0 (6.5-8.0) g/dL Albumin 4.3 (3.5-5.0) g/dL Urine Color Urine Appearance Urine pH (5.0-8.0) Ur Specific [place] (1.005-1.025) Urine Protein (NEG-TRACE) MG/DL Urine Glucose (UA) (NEG) MG/DL Urine Ketones (NEG) MG/DL Urine Blood (NEG) Urine Nitrite (NEG) Ur Leukocyte Esterase (NEG) Urine RBC (0) /HPF Urine WBC (0-4) /HPF Ur Squamous Epith Cells /LPF Urine Bacteria /LPF Urine Test (NEGATIVE) 12/21/20 12/21/20 12/21/20 Range/Units 00:16 00:16 00:33 WBC (4.8-10.8) X10*3/uL RBC (4.20-5.50) X10*6/uL Hgb (12.0-16.0) g/dl Hct (37-47) % MCV (80-98) fL MCH (27.0-33.0) pg MCHC (31.0-35.0) g/dl RDW (11.0-16.0) % Plt Count (160-400) X10*3/uL MPV (9.4-12.3) fL Immature Gran % (Auto) (0.0-0.4) % Neut % (Auto) (45-73) % Lymph % (Auto) (20-40) % [place] % (Auto) (2-11) % Eos % (Auto) (0-4) % Baso % (Auto) (0-2) % Lymph # (Auto) (1.2-4.9) X10*3/uL [place] # (Auto) (0.1-1.2) X10*3/uL Eos # (Auto) (0.0-0.4) X10*3/uL Baso # (Auto) (0.0-0.2) X10*3/uL Abs Immat Gran (auto) (0.00-0.03) X10*3/uL Absolute Neuts (auto) (2.0-8.3) X10*3/uL Absolute Nucleated RBC (0.0-0.012) X10*3/uL Nucleated RBC % (auto) (0.0-0.2) /100WBC ESR 11 (0-20) MM/HR Hold Blue Top Sodium (135-145) mmol/L Potassium (3.3-5.1) mmol/L Chloride (96-108) mmol/L Carbon Dioxide (22-29) mmol/L Anion Gap (12-20) BUN (9-16) mg/dL Creatinine (0.5-1.4) mg/dL Estim Creat Clear Calc Estimated GFR Random Glucose (60-115) mg/dL Calcium (8.4-10.2) mg/dL Total Bilirubin (0.0-1.0) mg/dL Direct Bilirubin (0.0-0.5) mg/dL AST (5-31) U/L ALT (0-31) U/L Alkaline Phosphatase (39-117) U/L Troponin I High Sens < 3.5 (<3.5-17.0) ng/L Total Protein (6.5-8.0) g/dL Albumin (3.5-5.0) g/dL Urine Color YELLOW Urine Appearance CLEAR Urine pH 6.0 (5.0-8.0) Ur Specific [place] >= 1.030 H (1.005-1.025) Urine Protein TRACE (NEG-TRACE) MG/DL Urine Glucose (UA) 500 H (NEG) MG/DL Urine Ketones 15 (NEG) MG/DL Urine Blood 2+ H (NEG) Urine Nitrite NEG (NEG) Ur Leukocyte Esterase NEG (NEG) Urine RBC 0-2 (0) /HPF Urine WBC 0-2 (0-4) /HPF Ur Squamous Epith Cells TRACE /LPF Urine Bacteria TRACE /LPF Urine Test (NEGATIVE) 12/21/20 Range/Units 00:33 WBC (4.8-10.8) X10*3/uL RBC (4.20-5.50) X10*6/uL Hgb (12.0-16.0) g/dl Hct (37-47) % MCV (80-98) fL MCH (27.0-33.0) pg MCHC (31.0-35.0) g/dl RDW (11.0-16.0) % Plt Count (160-400) X10*3/uL MPV (9.4-12.3) fL Immature Gran % (Auto) (0.0-0.4) % Neut % (Auto) (45-73) % Lymph % (Auto) (20-40) % [place] % (Auto) (2-11) % Eos % (Auto) (0-4) % Baso % (Auto) (0-2) % Lymph # (Auto) (1.2-4.9) X10*3/uL [place] # (Auto) (0.1-1.2) X10*3/uL Eos # (Auto) (0.0-0.4) X10*3/uL Baso # (Auto) (0.0-0.2) X10*3/uL Abs Immat Gran (auto) (0.00-0.03) X10*3/uL Absolute Neuts (auto) (2.0-8.3) X10*3/uL Absolute Nucleated RBC (0.0-0.012) X10*3/uL Nucleated RBC % (auto) (0.0-0.2) /100WBC ESR (0-20) MM/HR Hold Blue Top Sodium (135-145) mmol/L Potassium (3.3-5.1) mmol/L Chloride (96-108) mmol/L Carbon Dioxide (22-29) mmol/L Anion Gap (12-20) BUN (9-16) mg/dL Creatinine (0.5-1.4) mg/dL Estim Creat Clear Calc Estimated GFR Random Glucose (60-115) mg/dL Calcium (8.4-10.2) mg/dL Total Bilirubin (0.0-1.0) mg/dL Direct Bilirubin (0.0-0.5) mg/dL AST (5-31) U/L ALT (0-31) U/L Alkaline Phosphatase (39-117) U/L Troponin I High Sens (<3.5-17.0) ng/L Total Protein (6.5-8.0) g/dL Albumin (3.5-5.0) g/dL Urine Color Urine Appearance Urine pH (5.0-8.0) Ur Specific [place] (1.005-1.025) Urine Protein (NEG-TRACE) MG/DL Urine Glucose (UA) (NEG) MG/DL Urine Ketones (NEG) MG/DL Urine Blood (NEG) Urine Nitrite (NEG) Ur Leukocyte Esterase (NEG) Urine RBC (0) /HPF Urine WBC (0-4) /HPF Ur Squamous Epith Cells /LPF Urine Bacteria /LPF Urine Test NEGATIVE (NEGATIVE) ECG Data Attestation: I personally reviewed and interpreted this ECG as follows: Prior ECG tracings: available for review (08/20/2020 no acute changes on comparison) Interpretation: Normal sinus rhythm, HR-85, no evidence of acute ischemia, MT/QRS/QTC are within normal limits. Discharge Plan Discharge Clinical Impression: Radiculopathy affecting upper extremity Patient Disposition: Home, Self-Care Instructions: Cervical Radiculopathy (ED) Additional Instructions: 1. Resume all home medications as prescribed. 2. Recommend follow-up with your primary care provider in the next 2-3 days for re-evaluation and review of medication List for possible medication related symptoms. Do not hesitate to return to the emergency department for any acute worsening of your symptoms. Prescriptions: No Action prednisone 20 mg tablet 40 mg PO DAILY 5 Days Qty: 10 RF: 0 ketorolac 10 mg tablet 10 mg PO Q8H PRN (Reason: pain) Qty: 10 RF: 0 phenazopyridine [Pyridium] 100 mg tablet 100 mg PO TID PRN (Reason: pain) Qty: 10 RF: 0 naproxen 500 mg tablet 500 mg PO BID PRN (Reason: pain) Qty: 20 RF: 0 prednisone 20 mg tablet 40 mg PO DAILY Qty: 10 RF: 0 doxycycline monohydrate 100 mg capsule 100 mg PO BID Qty: 14 RF: 0 dicyclomine 20 mg tablet 20 mg PO TID PRN (Reason: Abdominal pain and cramping) Qty: 20 RF: 0 ondansetron HCl [Zofran] 4 mg tablet 4 mg PO Q8H PRN (Reason: nausea and vomiting) Qty: 10 RF: 0 metoprolol succinate 50 mg tablet extended release 24 hr 50 mg PO DAILY RF: 0 lisinopril 40 mg tablet 40 mg PO DAILY RF: 0 pantoprazole 40 mg tablet,delayed release (DR/EC) 40 mg PO DAILY RF: 0 Linzess 145 mcg capsule 145 mcg PO DAILY RF: 0 clozapine 100 mg tablet 50 mg PO BID RF: 0 clozapine 50 mg tablet 50 mg PO DAILY RF: 0 clonazepam 1 mg tablet 1 mg PO TID RF: 0 atorvastatin [Lipitor] 20 mg tablet 20 mg PO DAILY RF: 0 Referrals: Christos Britt MD [Primary Care Provider] - 2 days (Re-evaluation after seen in the emergency department for a spectrum concerns regarding tingling and the right hand isolated to thumb and thenar as well as chest tightness.)
[2020-12-21 01:27] VITALS: BP 126/81; PULSE 83; RESP 22; TEMP 36.7; O2SAT 96
[2020-12-21 01:52] LABS: Erythrocyte Sedimentation Rate 11 MM/HR (0-20)
== END 2020-12-21 02:50 | disposition home or self-care (01) ==
PROVIDERS: Emergency Provider Student in an Organized Health Care Education/Training Program; PCP Internal Medicine
DX: M54.10 Radiculopathy, site unspecified (principal); R20.0 Anesthesia of skin; F12.90 Cannabis use, unspecified, uncomplicated; Z79.899 Other long term (current) drug therapy
CPT/HCPCS: 36415; 71045; 80048; 80076; 81001; 81025; 84484; 85025; 85652; 93005; 99284

== ENCOUNTER 2020-12-30 12:35 | Outpatient (REF) | payer MEDICARE, MEDICAID, SELFPAY ==
[2020-12-30 13:25] LABS: MANUAL DIFF FLAG NO
[2020-12-30 13:29] LABS: Basophils Percent Auto 0.4 % (0-2); Eosinophils Percent Auto 0.4 % (0-4); Hematocrit 42.5 % (37-47); Imm Gran Abs Auto 0.02 X10*3/uL (0.00-0.03); Imm Gran Pct Auto 0.2 % (0.0-0.4); Lymphocytes Absolute Auto 1.8 X10*3/uL (1.2-4.9); Lymphocytes Percent Auto 16.7 % (20-40); Mean Corpuscular HGB Conc 32.9 g/dl (31.0-35.0); Mean Corpuscular Hemoglobin 29.5 pg (27.0-33.0); Mean Corpuscular Volume 89.7 fL (80-98); Monocytes Absolute Auto 0.4 X10*3/uL (0.1-1.2); Monocytes Percent Auto 4.2 % (2-11); Neutrophils Absolute Auto 8.2 X10*3/uL (2.0-8.3); Neutrophils Percent Auto 78.1 % (45-73); Platelet Count 249 X10*3/uL (160-400); Red Blood Count 4.74 X10*6/uL (4.20-5.50); Red Cell Distribution Width 12.1 % (11.0-16.0); White Blood Count 10.5 X10*3/uL (4.8-10.8)
== END 2020-12-30 12:36 | disposition home or self-care (01) ==
LOC: HO.LABR 12:35
PROVIDERS: PCP Internal Medicine; Visit Provider Psychiatry & Neurology Psychiatry
DX: Z79.899 Other long term (current) drug therapy (principal)
CPT/HCPCS: 36415; 85025

== ENCOUNTER 2021-01-24 09:44 | Outpatient (REF) | payer MEDICARE, MEDICAID, SELFPAY ==
[2021-01-24 10:50] LABS: MANUAL DIFF FLAG NO
[2021-01-24 10:59] LABS: Basophils Percent Auto 0.4 % (0-2); Eosinophils Absolute Auto 0.1 X10*3/uL (0.0-0.4); Eosinophils Percent Auto 0.9 % (0-4); Hematocrit 41.1 % (37-47); Hemoglobin 13.1 g/dl (12.0-16.0); Imm Gran Abs Auto 0.02 X10*3/uL (0.00-0.03); Imm Gran Pct Auto 0.3 % (0.0-0.4); Lymphocytes Absolute Auto 2.2 X10*3/uL (1.2-4.9); Lymphocytes Percent Auto 28.6 % (20-40); Mean Corpuscular HGB Conc 31.9 g/dl (31.0-35.0); Mean Corpuscular Hemoglobin 29.4 pg (27.0-33.0); Mean Corpuscular Volume 92.2 fL (80-98); Mean Platelet Volume 10.4 fL (9.4-12.3); Monocytes Absolute Auto 0.4 X10*3/uL (0.1-1.2); Monocytes Percent Auto 4.8 % (2-11); Platelet Count 289 X10*3/uL (160-400); Red Blood Count 4.46 X10*6/uL (4.20-5.50); Red Cell Distribution Width 13.3 % (11.0-16.0); WBCANC 7.7 X10*3/uL; White Blood Count 7.7 X10*3/uL (4.8-10.8)
== END 2021-01-24 09:45 | disposition home or self-care (01) ==
LOC: HO.LABR 09:44
PROVIDERS: Visit Provider Psychiatry & Neurology Psychiatry
DX: Z79.899 Other long term (current) drug therapy (principal)
CPT/HCPCS: 36415; 85025; 85048

== ENCOUNTER 2021-02-21 11:07 | Outpatient (REF) | payer MEDICARE, MEDICAID, SELFPAY ==
[2021-02-21 12:14] LABS: MANUAL DIFF FLAG NO
[2021-02-21 12:17] LABS: Basophils Percent Auto 0.5 % (0-2); Eosinophils Absolute Auto 0.1 X10*3/uL (0.0-0.4); Eosinophils Percent Auto 0.7 % (0-4); Hematocrit 41.5 % (37-47); Hemoglobin 13.6 g/dl (12.0-16.0); Imm Gran Abs Auto 0.02 X10*3/uL (0.00-0.03); Imm Gran Pct Auto 0.2 % (0.0-0.4); Lymphocytes Absolute Auto 2.1 X10*3/uL (1.2-4.9); Lymphocytes Percent Auto 24.7 % (20-40); Mean Corpuscular HGB Conc 32.8 g/dl (31.0-35.0); Mean Corpuscular Hemoglobin 29.5 pg (27.0-33.0); Mean Platelet Volume 10.6 fL (9.4-12.3); Monocytes Absolute Auto 0.4 X10*3/uL (0.1-1.2); Monocytes Percent Auto 4.8 % (2-11); Neutrophils Percent Auto 69.1 % (45-73); Platelet Count 315 X10*3/uL (160-400); Red Blood Count 4.61 X10*6/uL (4.20-5.50); Red Cell Distribution Width 13.7 % (11.0-16.0); White Blood Count 8.6 X10*3/uL (4.8-10.8)
== END 2021-02-21 11:08 | disposition home or self-care (01) ==
LOC: HO.LABR 11:07
PROVIDERS: Visit Provider Psychiatry & Neurology Psychiatry
DX: Z51.81 Encounter for therapeutic drug level monitoring (principal); Z79.899 Other long term (current) drug therapy
CPT/HCPCS: 36415; 85025; 85048

== ENCOUNTER 2021-03-07 10:54 | Outpatient (REF) | payer MEDICARE, MEDICAID, SELFPAY ==
[2021-03-07 12:03] LABS: MANUAL DIFF FLAG NO
[2021-03-07 12:12] LABS: Basophils Percent Auto 0.5 % (0-2); Eosinophils Absolute Auto 0.1 X10*3/uL (0.0-0.4); Eosinophils Percent Auto 0.7 % (0-4); Hematocrit 41.5 % (37-47); Hemoglobin 13.3 g/dl (12.0-16.0); Imm Gran Abs Auto 0.02 X10*3/uL (0.00-0.03); Imm Gran Pct Auto 0.2 % (0.0-0.4); Lymphocytes Absolute Auto 2.4 X10*3/uL (1.2-4.9); Lymphocytes Percent Auto 29.9 % (20-40); Mean Corpuscular Hemoglobin 29.1 pg (27.0-33.0); Mean Corpuscular Volume 90.8 fL (80-98); Mean Platelet Volume 10.3 fL (9.4-12.3); Monocytes Absolute Auto 0.3 X10*3/uL (0.1-1.2); Monocytes Percent Auto 4.2 % (2-11); Neutrophils Absolute Auto 5.3 X10*3/uL (2.0-8.3); Neutrophils Percent Auto 64.5 % (45-73); Platelet Count 282 X10*3/uL (160-400); Red Blood Count 4.57 X10*6/uL (4.20-5.50); Red Cell Distribution Width 13.9 % (11.0-16.0); White Blood Count 8.2 X10*3/uL (4.8-10.8)
== END 2021-03-07 10:55 | disposition home or self-care (01) ==
LOC: HO.LABR 10:54
PROVIDERS: PCP Internal Medicine; Visit Provider Psychiatry & Neurology Psychiatry
DX: Z51.81 Encounter for therapeutic drug level monitoring (principal); Z79.899 Other long term (current) drug therapy
CPT/HCPCS: 36415; 85025; 85048

== ENCOUNTER 2021-03-24 11:09 | Outpatient (REF) | payer MEDICARE, MEDICAID, SELFPAY ==
[2021-03-24 11:49] LABS: MANUAL DIFF FLAG NO
[2021-03-24 12:08] LABS: Basophils Percent Auto 0.3 % (0-2); Eosinophils Absolute Auto 0.1 X10*3/uL (0.0-0.4); Eosinophils Percent Auto 0.7 % (0-4); Imm Gran Abs Auto 0.04 X10*3/uL (0.00-0.03); Imm Gran Pct Auto 0.4 % (0.0-0.4); Lymphocytes Absolute Auto 2.6 X10*3/uL (1.2-4.9); Lymphocytes Percent Auto 26.6 % (20-40); Mean Corpuscular HGB Conc 32.5 g/dl (31.0-35.0); Mean Corpuscular Hemoglobin 29.3 pg (27.0-33.0); Mean Corpuscular Volume 90.1 fL (80-98); Mean Platelet Volume 10.6 fL (9.4-12.3); Monocytes Absolute Auto 0.4 X10*3/uL (0.1-1.2); Monocytes Percent Auto 4.4 % (2-11); Neutrophils Absolute Auto 6.7 X10*3/uL (2.0-8.3); Neutrophils Percent Auto 67.6 % (45-73); Platelet Count 272 X10*3/uL (160-400); Red Blood Count 4.44 X10*6/uL (4.20-5.50); Red Cell Distribution Width 14.1 % (11.0-16.0); White Blood Count 9.8 X10*3/uL (4.8-10.8)
== END 2021-03-24 11:10 | disposition home or self-care (01) ==
LOC: HO.LABR 11:09
PROVIDERS: PCP Internal Medicine; Visit Provider Psychiatry & Neurology Psychiatry
DX: Z51.81 Encounter for therapeutic drug level monitoring (principal); Z79.899 Other long term (current) drug therapy
CPT/HCPCS: 36415; 85025

== ENCOUNTER 2021-04-06 13:39 | Outpatient (REF) | payer MEDICARE, MEDICAID, SELFPAY ==
[2021-04-06 14:15] LABS: MANUAL DIFF FLAG NO
[2021-04-06 14:18] LABS: Basophils Percent Auto 0.2 % (0-2); Eosinophils Absolute Auto 0.1 X10*3/uL (0.0-0.4); Eosinophils Percent Auto 0.9 % (0-4); Hematocrit 37.7 % (37-47); Hemoglobin 12.4 g/dl (12.0-16.0); Imm Gran Abs Auto 0.04 X10*3/uL (0.00-0.03); Imm Gran Pct Auto 0.5 % (0.0-0.4); Lymphocytes Absolute Auto 2.6 X10*3/uL (1.2-4.9); Lymphocytes Percent Auto 31.8 % (20-40); Mean Corpuscular HGB Conc 32.9 g/dl (31.0-35.0); Mean Corpuscular Hemoglobin 29.7 pg (27.0-33.0); Mean Corpuscular Volume 90.2 fL (80-98); Mean Platelet Volume 10.1 fL (9.4-12.3); Monocytes Absolute Auto 0.4 X10*3/uL (0.1-1.2); Monocytes Percent Auto 5.3 % (2-11); Neutrophils Percent Auto 61.3 % (45-73); Platelet Count 243 X10*3/uL (160-400); Red Blood Count 4.18 X10*6/uL (4.20-5.50); Red Cell Distribution Width 14.4 % (11.0-16.0); White Blood Count 8.2 X10*3/uL (4.8-10.8)
== END 2021-04-06 13:40 | disposition home or self-care (01) ==
LOC: HO.LABR 13:39
PROVIDERS: PCP Internal Medicine; Visit Provider Psychiatry & Neurology Psychiatry
DX: Z51.81 Encounter for therapeutic drug level monitoring (principal); Z79.899 Other long term (current) drug therapy
CPT/HCPCS: 36415; 85025

== ENCOUNTER 2021-05-05 14:16 | Outpatient (REF) | payer MEDICARE, MEDICAID, SELFPAY ==
[2021-05-05 15:15] LABS: Neutrophils Absolute Auto 7.2 X10*3/uL (2.0-8.3); White Blood Count 10.8 X10*3/uL (4.8-10.8)
== END 2021-05-05 14:17 | disposition home or self-care (01) ==
LOC: HO.LABR 14:16
PROVIDERS: PCP Internal Medicine; Visit Provider Psychiatry & Neurology Psychiatry
DX: Z79.899 Other long term (current) drug therapy (principal)
CPT/HCPCS: 36415; 85048

== ENCOUNTER 2021-05-31 14:42 | Outpatient (REF) | payer MEDICARE, MEDICAID, SELFPAY ==
[2021-05-31 15:26] LABS: Neutrophils Absolute Auto 7.7 X10*3/uL (2.0-8.3); White Blood Count 11.7 X10*3/uL (4.8-10.8)
== END 2021-05-31 14:43 | disposition home or self-care (01) ==
LOC: HO.LABR 14:42
PROVIDERS: Visit Provider Psychiatry & Neurology Psychiatry
DX: Z79.899 Other long term (current) drug therapy (principal)
CPT/HCPCS: 36415; 85048

== ENCOUNTER 2021-06-05 17:04 | Emergency (ER) | payer MEDICARE, MEDICAID, SELFPAY ==
[2021-06-05 17:24] VITALS: BP 149/86; PULSE 90; RESP 24; TEMP 36.2; O2SAT 97; BMI 49.4
--- NOTE | 2021-06-05 17:52 | ED.ANXIETY ---
HPI - Anxiety General Chief Complaint: Anxiety Stated Complaint: Anxiety Source: patient Mode of arrival: ambulatory Limitations: no limitations History of Present Illness HPI narrative: 46-year-old female presents with anxiety. States that her daughter has causing her stress in life, and that she was unable to get her medications refilled. Patient has been doing very well with anxiety and coping mechanisms. States that she has not been seen for psychiatric concerns in quite sometimes. She does follow up with outpatient therapy and Psychiatry on a regular basis. Related Data Home Medications Medication Instructions Recorded Confirmed atorvastatin 20 mg tablet (Lipitor) 20 mg PO DAILY 11/22/20 clonazepam 1 mg tablet 1 mg PO TID 11/22/20 clozapine 100 mg tablet 50 mg PO BID 11/22/20 clozapine 50 mg tablet 50 mg PO DAILY tab 11/22/20 linaclotide 145 mcg capsule 145 mcg PO DAILY 11/22/20 (Linzess) lisinopril 40 mg tablet 40 mg PO DAILY 11/22/20 metoprolol succinate 50 mg 50 mg PO DAILY 11/22/20 tablet,extended release 24 hr pantoprazole 40 mg tablet,delayed 40 mg PO DAILY 11/22/20 release Previous Rx's Medication Instructions Recorded naproxen 500 mg tablet 500 mg PO BID PRN #20 tab 06/08/20 prednisone 20 mg tablet 40 mg PO DAILY 5 Days #10 tab NS 06/22/20 ketorolac 10 mg tablet 10 mg PO Q8H PRN #10 tab 06/29/20 phenazopyridine 100 mg tablet 100 mg PO TID PRN #10 tab 06/29/20 (Pyridium) doxycycline monohydrate 100 mg 100 mg PO BID #14 cap 07/08/20 capsule prednisone 20 mg tablet 40 mg PO DAILY #10 tab 07/08/20 dicyclomine 20 mg tablet 20 mg PO TID PRN #20 tab 08/20/20 ondansetron HCl 4 mg tablet 4 mg PO Q8H PRN #10 tab 08/20/20 (Zofran) Allergies Allergy/AdvReac Type Severity Reaction Status Date / Time Penicillins [PENICILLINS] Allergy Severe ANAPHYLAXIS Verified 11/22/20 15:57 adhesive [ADHESIVE] Allergy Unknown RASH Verified 11/22/20 15:57 artichoke [ARTICHOKE] Allergy Unknown RASH Verified 11/22/20 15:57 carbamazepine [From TEGRETOL] Allergy Unknown MIGRAINES Verified 11/22/20 15:57 cariprazine [From VRAYLAR] Allergy Unknown LEG CRAMPS Verified 11/22/20 15:57 fentanyl [FENTANYL] Allergy Unknown RASH Verified 11/22/20 15:57 lamotrigine [From LAMICTAL] Allergy Unknown RASH Verified 11/22/20 15:57 lithium [LITHIUM] AdvReac Severe tremor and Verified 11/22/20 15:57 falls Review of Systems Review of Systems: Constitutional: No Fever, No Chills ENT/Mouth: No Ear Pain, No Nasal Congestion, No sore throat Eyes: No Eye Pain, No Swelling, No Redness Cardiovascular: No Chest Pain, No SOB Respiratory: No Cough, No Sputum, No Dyspnea Gastrointestinal: No Nausea, No Vomiting, No Diarrhea, No Hematochezia, No Melena Genitourinary: No Dysuria, No Urinary Frequency, No Hematuria Musculoskeletal: No Myalgias Skin: No Skin Lesions, No rash Neuro: No Weakness, No Numbness, No Paresthesias, No Dizziness, No Headache Psych: positive Anxiety, no Depression, no SI/HI Heme/Lymph: No Lymphadenopathy Endocrine: No Polyuria, No Polydipsia Yes all other systems are reviewed and are negative PMFSH Past Medical History Attestation statement: The following information was validated with the patient. Source: old records reviewed Medical History Anxiety Bipolar disease, chronic Depression GERD (gastroesophageal reflux disease) High cholesterol Hypertension Migraines Morbid obesity with BMI of 45.0-49.9, adult Obstructive sleep apnea PCOS (polycystic ovarian syndrome) Pre-diabetes Renal colic Thrombosed external hemorrhoid Surgical History History of dilation and curettage Family History Family History Other Breast cancer Social History Social History Alcohol intake: never Substance Use Type: Marijuana Advance Directives: No Advance Directives Information Provided: No Physical Exam Vital Signs: Vital Signs: Last Vital Signs Temp 97.2 F 06/05/21 17:24 Pulse 90 06/05/21 17:24 Resp 24 H 06/05/21 17:24 BP 149/86 H 06/05/21 17:24 Pulse Ox 97 06/05/21 17:24 Body Mass Index 49.4 Appearance: Alert. Oriented X3. Moderate emotional distress. Eyes: Pupils equal, round and reactive to light. Sclera nonicteric. ENT: Pharynx normal. Moist mucous membranes. Neck: Normal inspection. Neck supple. No cervical lymphadenopathy. CVS: Normal heart rate and rhythm. Pulses normal. Respiratory: No respiratory distress. Breath sounds normal. Abdomen: Soft and nontender. Skin: Skin warm and dry. Normal skin color. Normal skin turgor. Extremities: No lower extremity edema. Gait well balanced well coordinated. Neuro: No motor deficit. No sensory deficit. Cranial nerves 2-12 intact. Course Course Course Narrative: 46-year-old female presents for exacerbation of anxiety. States that she is going through a stressful home life situation with her daughter. She does meet with Psychiatry on a regular basis, has been using Klonopin 3 times a day as needed for anxiety exacerbation and does not have any left at this time. She is not suicidal or homicidal, has not presented to the emergency department for anxiety in over a year. Will consult care team. Patient is alert oriented x4, answering questions politely and appropriately. Care team consult completed at 8:34 p.m.. Investigation into Klonopin use, patient has been using this medication appropriately and is getting a refill tomorrow morning. Patient stated that she does feel more supported after speaking to the care team, will follow up with outpatient psychiatry as scheduled. Patient will be discharged home, patient verbalized understanding of and agrees to plan of care. MDM - Anxiety Differential Diagnosis Differential diagnosis: Likely panic disorder and acute anxiety Medical Records Attestation: I reviewed the patient's medical records. Discharge Plan Discharge Clinical Impression: Acute anxiety, Panic disorder Patient Disposition: Home, Self-Care Instructions: Anxiety (ED), Panic Attack (ED) Additional Instructions: You were evaluated for anxiety. Please continue to follow-up with psychiatry as scheduled. Thank you for choosing this emergency department for evaluation. Please follow-up with primary care physician as needed. Return to the emergency department for any new, concerning, or worsening symptoms. Prescriptions: No Action prednisone 20 mg tablet 40 mg PO DAILY 5 Days Qty: 10 RF: 0 ketorolac 10 mg tablet 10 mg PO Q8H PRN (Reason: pain) Qty: 10 RF: 0 phenazopyridine [Pyridium] 100 mg tablet 100 mg PO TID PRN (Reason: pain) Qty: 10 RF: 0 naproxen 500 mg tablet 500 mg PO BID PRN (Reason: pain) Qty: 20 RF: 0 prednisone 20 mg tablet 40 mg PO DAILY Qty: 10 RF: 0 doxycycline monohydrate 100 mg capsule 100 mg PO BID Qty: 14 RF: 0 dicyclomine 20 mg tablet 20 mg PO TID PRN (Reason: Abdominal pain and cramping) Qty: 20 RF: 0 ondansetron HCl [Zofran] 4 mg tablet 4 mg PO Q8H PRN (Reason: nausea and vomiting) Qty: 10 RF: 0 metoprolol succinate 50 mg tablet extended release 24 hr 50 mg PO DAILY RF: 0 lisinopril 40 mg tablet 40 mg PO DAILY RF: 0 pantoprazole 40 mg tablet,delayed release (DR/EC) 40 mg PO DAILY RF: 0 Linzess 145 mcg capsule 145 mcg PO DAILY RF: 0 clozapine 100 mg tablet 50 mg PO BID RF: 0 clozapine 50 mg tablet 50 mg PO DAILY RF: 0 clonazepam 1 mg tablet 1 mg PO TID RF: 0 atorvastatin [Lipitor] 20 mg tablet 20 mg PO DAILY RF: 0
[2021-06-05] MEDS: clonazePAM 1 MG TABLET 2 MG PO (18:02)
--- NOTE | 2021-06-05 20:37 | MHC.CARE ---
CARE team consult received for pt who was brought to ED by her for increased anxiety s/p running out of her medication during a long weekend when she isn't able to call the office for a refill. She is well known to this communications writer and the CARE team, and has not had an ED visit related to behavioral health symptoms since March 2020. She reported that she has been struggling with her relationship with her daughter, stating that she has been really pushing her to the edge. She denied having any thoughts of suicide or wanting to harm herself or others, and clarified that she is over dealing with this with her (daughter). She stated that she has been compliant with her medications as prescribed and has continued to be engaged with outpatient treatment through [facility] ([facility]), and feels that her symptoms have been well managed since she started taking clozaril last summer in 2019. Pt feels better and is advocating for discharge home. She will continue treatment with her providers as scheduled.
== END 2021-06-05 20:47 | disposition home or self-care (01) ==
PROVIDERS: Emergency Provider Internal Medicine; PCP Internal Medicine
DX: F41.0 Panic disorder [episodic paroxysmal anxiety] (principal); F41.9 Anxiety disorder, unspecified; I10 Essential (primary) hypertension; Z79.899 Other long term (current) drug therapy
CPT/HCPCS: 99283; 99284

== ENCOUNTER 2021-06-13 14:18 | Emergency (ER) | payer MEDICARE, MEDICAID, SELFPAY ==
--- NOTE | ~2021-06-13 | XR_ITS ---
EXAMINATION: XR CHEST CLINICAL INFORMATION: Chest pain COMPARISON: 12/21/2020 TECHNIQUE: Frontal view of the chest was obtained. FINDINGS: No significant abnormality is noted involving the heart, lungs, mediastinum, bony thorax or soft tissues. XR/XR chest 1V IMPRESSION: Unremarkable examination.
[2021-06-13 14:30] VITALS: BP 148/93; PULSE 86; RESP 18; TEMP 36.9; O2SAT 97; BMI 49.4
--- NOTE | 2021-06-13 15:45 | ECG_ITS ---
Test Reason : cp Blood Pressure : / mmHG Vent. Rate : 082 BPM Atrial Rate : 082 BPM P-R Int : 202 ms QRS Dur : 088 ms QT Int : 374 ms P-R-T Axes : 013 008 019 degrees QTc Int : 436 ms Normal sinus rhythm Minimal voltage criteria for LVH, may be normal variant ( R in aVL ) Borderline ECG When compared with ECG of 21-DEC-2020 00:19, No significant change was found Referred By: Generic ED Physician Electronically Signed By:SHANNON HERNANDEZ MD
[2021-06-13 16:12] LABS: MANUAL DIFF FLAG NO
[2021-06-13 16:14] LABS: Basophils Percent Auto 0.2 % (0-2); Eosinophils Absolute Auto 0.1 X10*3/uL (0.0-0.4); Eosinophils Percent Auto 0.5 % (0-4); Hemoglobin 13.1 g/dl (12.0-16.0); Imm Gran Abs Auto 0.03 X10*3/uL (0.00-0.03); Imm Gran Pct Auto 0.3 % (0.0-0.4); Lymphocytes Absolute Auto 2.7 X10*3/uL (1.2-4.9); Mean Corpuscular HGB Conc 33.6 g/dl (31.0-35.0); Mean Corpuscular Hemoglobin 30.6 pg (27.0-33.0); Mean Corpuscular Volume 91.1 fL (80-98); Mean Platelet Volume 9.7 fL (9.4-12.3); Monocytes Absolute Auto 0.4 X10*3/uL (0.1-1.2); Monocytes Percent Auto 4.6 % (2-11); Neutrophils Absolute Auto 6.1 X10*3/uL (2.0-8.3); Neutrophils Percent Auto 65.4 % (45-73); Platelet Count 238 X10*3/uL (160-400); Red Blood Count 4.28 X10*6/uL (4.20-5.50); Red Cell Distribution Width 12.9 % (11.0-16.0); White Blood Count 9.3 X10*3/uL (4.8-10.8)
[2021-06-13 16:26] LABS: Anion Gap 12 (12-20); Blood Urea Nitrogen 7 mg/dL (9-16); Calcium 8.9 mg/dL (8.4-10.2); Carbon Dioxide 27 mmol/L (22-29); Chloride 106 mmol/L (96-108); Creatinine Clr Calc Pharmacy 151.6; Estimated Glomerular Filt Rate > 60; Glucose Random 86 mg/dL (60-115); Potassium 3.9 mmol/L (3.3-5.1); Sodium 141 mmol/L (135-145)
[2021-06-13 16:30] LABS: COVID-19 Test Negative (Negative); IDNOW Serial# 9DD0AD1C
[2021-06-13 16:32] LABS: Troponin-I High Sensitivity < 3.5 ng/L (<3.5-17.0)
[2021-06-13 17:12] LABS: Appearance Urine CLEAR; Color Urine YELLOW; Glucose Urine UA NEG (NEG); Leukocyte Esterase Urine NEG (NEG); Nitrite Urine NEG (NEG); Specific Gravity - Urine <= 1.005 (1.005-1.025); Urine Blood NEG (NEG); Urine Ketones NEG (NEG); Urine Protein NEG (NEG-TRACE)
[2021-06-13 17:18] LABS: UPreg QC Valid YES; Urine Pregnancy NEGATIVE (NEGATIVE)
--- NOTE | 2021-06-13 18:15 | ED.CHESTPAIN ---
HPI - Chest Pain General Chief Complaint: Chest Pain Stated Complaint: Chest pain/headache/dizzy Time Seen by Provider: 06/13/21 17:52 Source: patient Mode of arrival: ambulatory Limitations: no limitations History of Present Illness HPI narrative: 46-year-old female came in for evaluation of chest pain. Symptoms started this morning at 09:00 as a left-sided/midsternal chest pain pain pain was described as muscle cramps, no radiation, pain has been constant since this morning, moderate in severity 5/10, stretching both arms ease of the pain, nothing relieves the pain, patient declined any other associated symptoms, no recent travel, no lower extremity swelling or tenderness, no history of PE/DVT. No shortness of breath. No trauma to the chest. Related Data Home Medications Medication Instructions Recorded Confirmed atorvastatin 20 mg tablet (Lipitor) 20 mg PO DAILY 11/22/20 clonazepam 1 mg tablet 1 mg PO TID 11/22/20 clozapine 100 mg tablet 50 mg PO BID 11/22/20 clozapine 50 mg tablet 50 mg PO DAILY tab 11/22/20 linaclotide 145 mcg capsule 145 mcg PO DAILY 11/22/20 (Linzess) lisinopril 40 mg tablet 40 mg PO DAILY 11/22/20 metoprolol succinate 50 mg 50 mg PO DAILY 11/22/20 tablet,extended release 24 hr pantoprazole 40 mg tablet,delayed 40 mg PO DAILY 11/22/20 release Previous Rx's Medication Instructions Recorded naproxen 500 mg tablet 500 mg PO BID PRN #20 tab 06/08/20 prednisone 20 mg tablet 40 mg PO DAILY 5 Days #10 tab NS 06/22/20 ketorolac 10 mg tablet 10 mg PO Q8H PRN #10 tab 06/29/20 phenazopyridine 100 mg tablet 100 mg PO TID PRN #10 tab 06/29/20 (Pyridium) doxycycline monohydrate 100 mg 100 mg PO BID #14 cap 07/08/20 capsule prednisone 20 mg tablet 40 mg PO DAILY #10 tab 07/08/20 dicyclomine 20 mg tablet 20 mg PO TID PRN #20 tab 08/20/20 ondansetron HCl 4 mg tablet 4 mg PO Q8H PRN #10 tab 08/20/20 (Zofran) Allergies Allergy/AdvReac Type Severity Reaction Status Date / Time Penicillins [PENICILLINS] Allergy Severe ANAPHYLAXIS Verified 06/13/21 14:29 adhesive [ADHESIVE] Allergy Unknown RASH Verified 06/13/21 14:29 artichoke [ARTICHOKE] Allergy Unknown RASH Verified 06/13/21 14:29 carbamazepine [From TEGRETOL] Allergy Unknown MIGRAINES Verified 06/13/21 14:29 cariprazine [From VRAYLAR] Allergy Unknown LEG CRAMPS Verified 06/13/21 14:29 fentanyl [FENTANYL] Allergy Unknown RASH Verified 06/13/21 14:29 lamotrigine [From LAMICTAL] Allergy Unknown RASH Verified 06/13/21 14:29 lithium [LITHIUM] AdvReac Severe tremor and Verified 06/13/21 14:29 falls Review of Systems Review of Systems: All other systems are reviewed and are negative Constitutional: Reports as per HPI and Reports no additional constitutional complaints Eyes: Reports as per HPI and Reports no additional eye complaints Reports system reviewed and no additional complaints, except as documented Cardiovascular: Reports as per HPI and Reports no additional cardiovascular complaints Respiratory: Reports as per HPI and Reports no additional respiratory complaints Gastrointestinal: Reports as per HPI and Reports no additional gastrointestinal complaints Genitourinary: Reports no additional female genitourinary complaints Musculoskeletal: Reports no additional musculoskeletal complaints Skin/Breast: Reports system reviewed and no additional complaints, except as docu Psychiatric: Reports no additional psychiatric complaints Endocrine: Reports no additional endocrine complaints Hematologic/Lymphatic: Reports no additional hematologic/lymphatic complaints Allergic/Immunologic: Reports no additional allergic/immunologic complaints Reports system reviewed and no additional complaints, except as documented and Reports Abnormal speech present [facility] Past Medical History Medical History Anxiety Bipolar disease, chronic Depression GERD (gastroesophageal reflux disease) High cholesterol Hypertension Migraines Morbid obesity with BMI of 45.0-49.9, adult Obstructive sleep apnea PCOS (polycystic ovarian syndrome) Pre-diabetes Renal colic Thrombosed external hemorrhoid Surgical History History of dilation and curettage Family History Family History Other Breast cancer Social History Social History Alcohol intake: never Substance Use Type: Marijuana Advance Directives: No Advance Directives Information Provided: No Patient : No Physical Exam Vital Signs: Vital Signs: Last Vital Signs Temp 98.5 F 06/13/21 14:30 Pulse 86 06/13/21 14:30 Resp 18 06/13/21 14:30 BP 148/93 H 06/13/21 14:30 Pulse Ox 97 06/13/21 14:30 Body Mass Index 49.4 Vital signs have been reviewed as appeared to be correct. Blood pressure normal. Heart rate normal. Respiration rate normal. Temperature normal. Oxygen saturation normal. Appearance: Alert. Oriented X3. No acute distress. Head: Normal external exam. Normocephalic. Atraumatic. No [place] signs noted. No raccoon eyes noted Eyes: PERRLA. EOMI. Conjunctiva and sclera normal. Eyelids normal. ENT: TM's Normal. Pharynx normal. Uvula midline. Moist mucous membranes. No trismus noted. No drooling noted. No muffled voice noted. Neck: Normal inspection. Neck supple. FROM. No adenopathy. Thyroid Normal. No meningeal signs. No neck mass noted. CVS: Normal heart rate and rhythm. Heart sound normal. No murmurs noted. Pulses normal throughout. Respiratory: No respiratory distress. Painless inspiration. Breath sounds normal. No wheezes/rales/rhonchi noted. Reproducible tenderness in mid chest area and left chest wall. No step-off, no deformity. No accessory muscle usage noted or decreased air movement noted. Abdomen: Soft and nontender. Bowel sounds normal in all 4 quadrants. No distention noted. No organomegaly noted. No visible injury noted. Back: No CVA tenderness. Full range of motion noted. Skin: Skin warm and dry. Normal skin color. Normal skin turgor. No rashes/lesions/lacerations noted. Extremities: No lower extremity edema. Extremities exhibit normal range of motion. Extremities nontender. Neuro: Oriented X 3. Cranial nerve exam: II-XII are grossly intact No motor deficit. No sensory deficit. Reflexes normal. Course Course Course Narrative: Assessment and plan. 46-year-old came in for evaluation of chest pain, by history and clinical exam pain is consistent with muscular pain, patient is reproducible. Patient has unremarkable EKG and negative troponin. MDM - Chest Pain Medical Records Data Attestation: I reviewed the patient's medical records. Lab Data Attestation: I reviewed the patient's lab results. Result diagrams: 06/13/21 16:06 06/13/21 16:05 Labs: Lab Results 06/13/21 06/13/21 06/13/21 Range/Units 15:53 16:05 16:05 WBC (4.8-10.8) X10*3/uL RBC (4.20-5.50) X10*6/uL Hgb (12.0-16.0) g/dl Hct (37-47) % MCV (80-98) fL MCH (27.0-33.0) pg MCHC (31.0-35.0) g/dl RDW (11.0-16.0) % Plt Count (160-400) X10*3/uL MPV (9.4-12.3) fL Immature Gran % (Auto) (0.0-0.4) % Neut % (Auto) (45-73) % Lymph % (Auto) (20-40) % [place] % (Auto) (2-11) % Eos % (Auto) (0-4) % Baso % (Auto) (0-2) % Lymph # (Auto) (1.2-4.9) X10*3/uL [place] # (Auto) (0.1-1.2) X10*3/uL Eos # (Auto) (0.0-0.4) X10*3/uL Baso # (Auto) (0.0-0.2) X10*3/uL Abs Immat Gran (auto) (0.00-0.03) X10*3/uL Absolute Neuts (auto) (2.0-8.3) X10*3/uL Absolute Nucleated RBC (0.0-0.012) X10*3/uL Nucleated RBC % (auto) (0.0-0.2) /100WBC Sodium 141 (135-145) mmol/L Potassium 3.9 (3.3-5.1) mmol/L Chloride 106 (96-108) mmol/L Carbon Dioxide 27 (22-29) mmol/L Anion Gap 12 (12-20) BUN 7 L (9-16) mg/dL Creatinine 0.69 (0.5-1.4) mg/dL Estim Creat Clear Calc 151.6 Estimated GFR > 60 Random Glucose 86 (60-115) mg/dL Calcium 8.9 (8.4-10.2) mg/dL Troponin I High Sens < 3.5 (<3.5-17.0) ng/L Urine Color Urine Appearance Urine pH (5.0-8.0) Ur Specific [place] (1.005-1.025) Urine Protein (NEG-TRACE) MG/DL Urine Glucose (UA) (NEG) MG/DL Urine Ketones (NEG) MG/DL Urine Blood (NEG) Urine Nitrite (NEG) Ur Leukocyte Esterase (NEG) Urine Test (NEGATIVE) COVID-19 (ANA) Negative (Negative) COVID-19 Clin Com See Note 06/13/21 06/13/21 06/13/21 Range/Units 16:06 16:58 16:58 WBC 9.3 (4.8-10.8) X10*3/uL RBC 4.28 (4.20-5.50) X10*6/uL Hgb 13.1 (12.0-16.0) g/dl Hct 39.0 (37-47) % MCV 91.1 (80-98) fL MCH 30.6 (27.0-33.0) pg MCHC 33.6 (31.0-35.0) g/dl RDW 12.9 (11.0-16.0) % Plt Count 238 (160-400) X10*3/uL MPV 9.7 (9.4-12.3) fL Immature Gran % (Auto) 0.3 (0.0-0.4) % Neut % (Auto) 65.4 (45-73) % Lymph % (Auto) 29.0 (20-40) % [place] % (Auto) 4.6 (2-11) % Eos % (Auto) 0.5 (0-4) % Baso % (Auto) 0.2 (0-2) % Lymph # (Auto) 2.7 (1.2-4.9) X10*3/uL [place] # (Auto) 0.4 (0.1-1.2) X10*3/uL Eos # (Auto) 0.1 (0.0-0.4) X10*3/uL Baso # (Auto) 0.0 (0.0-0.2) X10*3/uL Abs Immat Gran (auto) 0.03 (0.00-0.03) X10*3/uL Absolute Neuts (auto) 6.1 (2.0-8.3) X10*3/uL Absolute Nucleated RBC 0.000 (0.0-0.012) X10*3/uL Nucleated RBC % (auto) 0.0 (0.0-0.2) /100WBC Sodium (135-145) mmol/L Potassium (3.3-5.1) mmol/L Chloride (96-108) mmol/L Carbon Dioxide (22-29) mmol/L Anion Gap (12-20) BUN (9-16) mg/dL Creatinine (0.5-1.4) mg/dL Estim Creat Clear Calc Estimated GFR Random Glucose (60-115) mg/dL Calcium (8.4-10.2) mg/dL Troponin I High Sens (<3.5-17.0) ng/L Urine Color YELLOW Urine Appearance CLEAR Urine pH 6.0 (5.0-8.0) Ur Specific [place] <= 1.005 (1.005-1.025) Urine Protein NEG (NEG-TRACE) MG/DL Urine Glucose (UA) NEG (NEG) MG/DL Urine Ketones NEG (NEG) MG/DL Urine Blood NEG (NEG) Urine Nitrite NEG (NEG) Ur Leukocyte Esterase NEG (NEG) Urine Test NEGATIVE (NEGATIVE) COVID-19 (ANA) (Negative) COVID-19 Clin Com Imaging Data Chest x-ray: Radiologist's impression: No acute pathology ECG Data ECG #1: Interpretation: CC normal sinus rhythm at 82 beats per minutes, LVH, normal axis deviation, first-degree AV block, no ST-T changes. Discharge Plan Discharge Clinical Impression: Atypical chest pain, Acute myofascial pain Patient Disposition: Home, Self-Care Instructions: Musculoskeletal Pain (ED) Prescriptions: No Action prednisone 20 mg tablet 40 mg PO DAILY 5 Days Qty: 10 RF: 0 ketorolac 10 mg tablet 10 mg PO Q8H PRN (Reason: pain) Qty: 10 RF: 0 phenazopyridine [Pyridium] 100 mg tablet 100 mg PO TID PRN (Reason: pain) Qty: 10 RF: 0 naproxen 500 mg tablet 500 mg PO BID PRN (Reason: pain) Qty: 20 RF: 0 prednisone 20 mg tablet 40 mg PO DAILY Qty: 10 RF: 0 doxycycline monohydrate 100 mg capsule 100 mg PO BID Qty: 14 RF: 0 dicyclomine 20 mg tablet 20 mg PO TID PRN (Reason: Abdominal pain and cramping) Qty: 20 RF: 0 ondansetron HCl [Zofran] 4 mg tablet 4 mg PO Q8H PRN (Reason: nausea and vomiting) Qty: 10 RF: 0 metoprolol succinate 50 mg tablet extended release 24 hr 50 mg PO DAILY RF: 0 lisinopril 40 mg tablet 40 mg PO DAILY RF: 0 pantoprazole 40 mg tablet,delayed release (DR/EC) 40 mg PO DAILY RF: 0 Linzess 145 mcg capsule 145 mcg PO DAILY RF: 0 clozapine 100 mg tablet 50 mg PO BID RF: 0 clozapine 50 mg tablet 50 mg PO DAILY RF: 0 clonazepam 1 mg tablet 1 mg PO TID RF: 0 atorvastatin [Lipitor] 20 mg tablet 20 mg PO DAILY RF: 0 Referrals: Ann-Marie Camacho MD [Primary Care Provider] - 2 days
[2021-06-13] MEDS: Ibuprofen 600 MG TABLET PO (18:25)
== END 2021-06-13 18:27 | disposition home or self-care (01) ==
PROVIDERS: Emergency Provider Emergency Medicine; PCP Internal Medicine
DX: R07.89 Other chest pain (principal); M79.18 Myalgia, other site; I10 Essential (primary) hypertension; Z20.822 Contact with and (suspected) exposure to COVID-19
CPT/HCPCS: 36415; 71045; 80048; 81003; 81025; 84484; 85025; 87635; 93005; 99283; 99284

== ENCOUNTER 2021-06-14 16:55 | Emergency (ER) | payer MEDICARE, MEDICAID, SELFPAY ==
[2021-06-14 17:08] VITALS: BP 140/80; PULSE 96; O2SAT 94
[2021-06-14 17:09] VITALS: BP 130/67; PULSE 90; RESP 16; TEMP 37.6; O2SAT 92; BMI 38.7
--- NOTE | 2021-06-14 17:22 | ED_ITS ---
HPI - Alcohol General Chief Complaint: ETOH/Substance Use Stated Complaint: ETOH Time Seen by Provider: 06/14/21 17:15 History of Present Illness HPI narrative: Patient is a 46-year-old female presents today with a history of ETOH abuse. History of anxiety. Previous history of COVID back in July. Complaining of positive nausea vomiting. Lots of stressful events in her life. Question overdose of Klonopin. No cough and no congestion or upper respiratory symptoms. No diaphoresis. Patient for home. No chest pain. No shortness of breath. Patient is from home. No radiation of the pain. Positive nausea vomiting mostly of stomach content. No blood. No bloody stool. Patient denies using any other drugs. Question suicidal ideation. Patient refused to answer. Related Data Home Medications Medication Instructions Recorded Confirmed atorvastatin 20 mg tablet (Lipitor) 20 mg PO DAILY 11/22/20 clonazepam 1 mg tablet 1 mg PO TID 11/22/20 clozapine 100 mg tablet 50 mg PO BID 11/22/20 clozapine 50 mg tablet 50 mg PO DAILY tab 11/22/20 linaclotide 145 mcg capsule 145 mcg PO DAILY 11/22/20 (Linzess) lisinopril 40 mg tablet 40 mg PO DAILY 11/22/20 metoprolol succinate 50 mg 50 mg PO DAILY 11/22/20 tablet,extended release 24 hr pantoprazole 40 mg tablet,delayed 40 mg PO DAILY 11/22/20 release Previous Rx's Medication Instructions Recorded naproxen 500 mg tablet 500 mg PO BID PRN #20 tab 06/08/20 prednisone 20 mg tablet 40 mg PO DAILY 5 Days #10 tab NS 06/22/20 ketorolac 10 mg tablet 10 mg PO Q8H PRN #10 tab 06/29/20 phenazopyridine 100 mg tablet 100 mg PO TID PRN #10 tab 06/29/20 (Pyridium) doxycycline monohydrate 100 mg 100 mg PO BID #14 cap 07/08/20 capsule prednisone 20 mg tablet 40 mg PO DAILY #10 tab 07/08/20 dicyclomine 20 mg tablet 20 mg PO TID PRN #20 tab 08/20/20 ondansetron HCl 4 mg tablet 4 mg PO Q8H PRN #10 tab 08/20/20 (Zofran) Allergies Allergy/AdvReac Type Severity Reaction Status Date / Time Penicillins [PENICILLINS] Allergy Severe ANAPHYLAXIS Verified 06/13/21 14:29 adhesive [ADHESIVE] Allergy Unknown RASH Verified 06/13/21 14:29 artichoke [ARTICHOKE] Allergy Unknown RASH Verified 06/13/21 14:29 carbamazepine [From TEGRETOL] Allergy Unknown MIGRAINES Verified 06/13/21 14:29 cariprazine [From VRAYLAR] Allergy Unknown LEG CRAMPS Verified 06/13/21 14:29 fentanyl [FENTANYL] Allergy Unknown RASH Verified 06/13/21 14:29 lamotrigine [From LAMICTAL] Allergy Unknown RASH Verified 06/13/21 14:29 lithium [LITHIUM] AdvReac Severe tremor and Verified 06/13/21 14:29 falls Review of Systems Review of Systems: No fever no chills no chest pain or Shortness of breath Positive generalized malaise Positive nausea vomiting All systems reviewed otherwise negative PMFSH Past Medical History Attestation statement: The following information was validated with the patient. Medical History Anxiety Bipolar disease, chronic Depression GERD (gastroesophageal reflux disease) High cholesterol Hypertension Migraines Morbid obesity with BMI of 45.0-49.9, adult Obstructive sleep apnea PCOS (polycystic ovarian syndrome) Pre-diabetes Renal colic Thrombosed external hemorrhoid Surgical History History of dilation and curettage Family History Family History Other Breast cancer Social History Social History Alcohol intake: current Alcohol intake frequency: holidays/special occasions only Alcohol type: hard liquor Substance Use Type: Marijuana Advance Directives: No Advance Directives Information Provided: No Physical Exam Vital Signs: Vital Signs: Last Vital Signs Temp 99.7 F 06/14/21 17:09 Pulse 90 06/14/21 17:09 Resp 16 06/14/21 17:09 BP 130/67 06/14/21 17:09 Pulse Ox 92 06/14/21 17:09 Body Mass Index 38.7 Appearance: Alert. Oriented X3. No acute distress. Eyes: Pupils equal, round and reactive to light. ENT: Pharynx normal. Neck: Normal inspection. Neck supple. No lymph nodes noted. No crepitus CVS: Normal heart rate and rhythm. Pulses normal. Normal S1 and S2 Respiratory: No respiratory distress. Breath sounds normal. No Wheezing. No rales Abdomen: Soft and nontender. No rigidity. No distention. good BS x4 Skin: Skin warm and dry. Normal skin color. Normal skin turgor. Extremities: No lower extremity edema. Neurovascular intact to all extremities. No Lacerations. No Rash Neuro: Oriented X 3. No motor deficit. No sensory deficit. Moving all extermities. No slurred speech MDM - Alcohol MDM Narrative Medical decision making narrative: Patient now clinically sober. Does not want to kill herself. No suicidal homicidal ideation. Patient evaluated by crisis. Feel comfortable with discharge. In stable condition. Differential Diagnosis Differential diagnosis: Likely alcohol dependence Medical Records Attestation: I reviewed the patient's medical records. Lab Data Attestation: I reviewed the patient's lab results. Result diagrams: 06/14/21 17:25 06/14/21 17:25 Labs: Lab Results 06/14/21 06/14/21 06/14/21 Range/Units 17:25 17:25 17:25 WBC 9.4 (4.8-10.8) X10*3/uL RBC 4.36 (4.20-5.50) X10*6/uL Hgb 13.2 (12.0-16.0) g/dl Hct 39.1 (37-47) % MCV 89.7 (80-98) fL MCH 30.3 (27.0-33.0) pg MCHC 33.8 (31.0-35.0) g/dl RDW 12.7 (11.0-16.0) % Plt Count 254 (160-400) X10*3/uL MPV 9.8 (9.4-12.3) fL Immature Gran % (Auto) 0.3 (0.0-0.4) % Neut % (Auto) 58.2 (45-73) % Lymph % (Auto) 35.6 (20-40) % [place] % (Auto) 4.8 (2-11) % Eos % (Auto) 0.8 (0-4) % Baso % (Auto) 0.3 (0-2) % Lymph # (Auto) 3.4 (1.2-4.9) X10*3/uL [place] # (Auto) 0.5 (0.1-1.2) X10*3/uL Eos # (Auto) 0.1 (0.0-0.4) X10*3/uL Baso # (Auto) 0.0 (0.0-0.2) X10*3/uL Abs Immat Gran (auto) 0.03 (0.00-0.03) X10*3/uL Absolute Neuts (auto) 5.5 (2.0-8.3) X10*3/uL Absolute Nucleated RBC 0.000 (0.0-0.012) X10*3/uL Nucleated RBC % (auto) 0.0 (0.0-0.2) /100WBC Sodium 143 (135-145) mmol/L Potassium 4.2 (3.3-5.1) mmol/L Chloride 109 H (96-108) mmol/L Carbon Dioxide 21 L (22-29) mmol/L Anion Gap 17 (12-20) BUN 7 L (9-16) mg/dL Creatinine 0.66 (0.5-1.4) mg/dL Estim Creat Clear Calc 133.0 Estimated GFR > 60 Random Glucose 125 H (60-115) mg/dL Calcium 9.1 (8.4-10.2) mg/dL Total Bilirubin 0.2 (0.0-1.0) mg/dL AST 20 (5-31) U/L ALT 21 (0-31) U/L Alkaline Phosphatase 75 D (39-117) U/L Total Protein 6.9 (6.5-8.0) g/dL Albumin 4.2 (3.5-5.0) g/dL Salicylates < 5.0 L (15-30) mg/dL Acetaminophen < 1 (<30) mcg/mL Ethyl Alcohol 124 mg/dL Discharge Plan Discharge Clinical Impression: Alcoholic intoxication, Overdose Patient Disposition: Home, Self-Care Instructions: Alcohol Intoxication (ED) Prescriptions: No Action prednisone 20 mg tablet 40 mg PO DAILY 5 Days Qty: 10 RF: 0 ketorolac 10 mg tablet 10 mg PO Q8H PRN (Reason: pain) Qty: 10 RF: 0 phenazopyridine [Pyridium] 100 mg tablet 100 mg PO TID PRN (Reason: pain) Qty: 10 RF: 0 naproxen 500 mg tablet 500 mg PO BID PRN (Reason: pain) Qty: 20 RF: 0 prednisone 20 mg tablet 40 mg PO DAILY Qty: 10 RF: 0 doxycycline monohydrate 100 mg capsule 100 mg PO BID Qty: 14 RF: 0 dicyclomine 20 mg tablet 20 mg PO TID PRN (Reason: Abdominal pain and cramping) Qty: 20 RF: 0 ondansetron HCl [Zofran] 4 mg tablet 4 mg PO Q8H PRN (Reason: nausea and vomiting) Qty: 10 RF: 0 metoprolol succinate 50 mg tablet extended release 24 hr 50 mg PO DAILY RF: 0 lisinopril 40 mg tablet 40 mg PO DAILY RF: 0 pantoprazole 40 mg tablet,delayed release (DR/EC) 40 mg PO DAILY RF: 0 Linzess 145 mcg capsule 145 mcg PO DAILY RF: 0 clozapine 100 mg tablet 50 mg PO BID RF: 0 clozapine 50 mg tablet 50 mg PO DAILY RF: 0 clonazepam 1 mg tablet 1 mg PO TID RF: 0 atorvastatin [Lipitor] 20 mg tablet 20 mg PO DAILY RF: 0 Referrals: Physician,Unknown J [Primary Care Provider] - 2 days (Please follow-up as per BHN)
[2021-06-14 17:39] LABS: MANUAL DIFF FLAG NO
[2021-06-14 17:44] LABS: Basophils Percent Auto 0.3 % (0-2); Eosinophils Absolute Auto 0.1 X10*3/uL (0.0-0.4); Eosinophils Percent Auto 0.8 % (0-4); Hematocrit 39.1 % (37-47); Hemoglobin 13.2 g/dl (12.0-16.0); Imm Gran Abs Auto 0.03 X10*3/uL (0.00-0.03); Imm Gran Pct Auto 0.3 % (0.0-0.4); Lymphocytes Absolute Auto 3.4 X10*3/uL (1.2-4.9); Lymphocytes Percent Auto 35.6 % (20-40); Mean Corpuscular HGB Conc 33.8 g/dl (31.0-35.0); Mean Corpuscular Hemoglobin 30.3 pg (27.0-33.0); Mean Corpuscular Volume 89.7 fL (80-98); Mean Platelet Volume 9.8 fL (9.4-12.3); Monocytes Absolute Auto 0.5 X10*3/uL (0.1-1.2); Monocytes Percent Auto 4.8 % (2-11); Neutrophils Absolute Auto 5.5 X10*3/uL (2.0-8.3); Neutrophils Percent Auto 58.2 % (45-73); Platelet Count 254 X10*3/uL (160-400); Red Blood Count 4.36 X10*6/uL (4.20-5.50); Red Cell Distribution Width 12.7 % (11.0-16.0); White Blood Count 9.4 X10*3/uL (4.8-10.8)
[2021-06-14 17:59] LABS: Ethanol 124 mg/dL
[2021-06-14 18:06] LABS: Acetaminophen LAB < 1 mcg/mL (<30); Alanine Aminotransferase 21 U/L (0-31); Albumin Level 4.2 g/dL (3.5-5.0); Alkaline Phosphatase 75 U/L (39-117); Anion Gap 17 (12-20); Aspartate Amino Transferase 20 U/L (5-31); Bilirubin Total 0.2 mg/dL (0.0-1.0); Blood Urea Nitrogen 7 mg/dL (9-16); Calcium 9.1 mg/dL (8.4-10.2); Carbon Dioxide 21 mmol/L (22-29); Chloride 109 mmol/L (96-108); Estimated Glomerular Filt Rate > 60; Glucose Random 125 mg/dL (60-115); Potassium 4.2 mmol/L (3.3-5.1); Salicylate < 5.0 mg/dL (15-30); Sodium 143 mmol/L (135-145); Total Protein 6.9 g/dL (6.5-8.0)
[2021-06-14] MEDS: 0.9 % Sodium Chloride 1,000 ML 999 ML IV (18:21)
[2021-06-14] MEDS: ondansetron HCL 4 MG/2 ML VIAL IVPUSH (18:21)
[2021-06-14] MEDS: Acetaminophen 325 MG TABLET 650 MG PO (22:29)
--- NOTE | 2021-06-14 22:43 | MHC.CARE ---
Pt met with CARE team. Pt is well known to CARE team and ED. Pt reports she became overwhelmed today by her daughter who resides in [place]. Pt reported she over took her Klonipan. She was medically cleared, alert and oriented. This is baseline for her and typically is triggered by her daughter. Pt is denying SI and requests to be d.c home. Dr. Mcgrath and Dr. Rosendo Isaacs are in agreement with D/C.
== END 2021-06-14 22:55 | disposition home or self-care (01) ==
PROVIDERS: Emergency Provider Emergency Medicine Emergency Medical Services
DX: T42.4X1A Poisoning by benzodiazepines, accidental (unintentional), initial encounter (principal); Y92.9 Unspecified place or not applicable; F10.129 Alcohol abuse with intoxication, unspecified; Y90.6 Blood alcohol level of 120-199 mg/100 ml; I10 Essential (primary) hypertension
CPT/HCPCS: 36415; 80053; 80143; 80179; 82077; 85025; 96361; 96374; 99284; 99285; J2405

== ENCOUNTER 2021-06-19 14:19 | Emergency (ER) | payer MEDICARE, MEDICAID, SELFPAY ==
[2021-06-19 14:23] VITALS: BP 152/102; PULSE 85; RESP 16; TEMP 36.2; O2SAT 98; BMI 49.4
[2021-06-19 15:32] VITALS: BP 154/90; PULSE 80; RESP 19; TEMP 36.8; O2SAT 96
--- NOTE | 2021-06-19 15:39 | ED.PSYCH ---
HPI - Psych General Chief Complaint: Psychiatric Symptoms Stated Complaint: crisis Time Seen by Provider: 06/19/21 14:31 Source: patient Mode of arrival: ambulatory Limitations: no limitations History of Present Illness MD complaint: suicidal ideation and feels depressed Onset (ago): month(s) (1) Duration: getting worse History of same: Yes Relieving factors: none Exacerbating factors: other (life stress) Context: significant life stressor Associated psychiatric symptoms: depression and suicidal ideation Associated symptoms: denies other symptoms Treatments prior to arrival: none If self harm: admits thoughts of self harm Related Data Home Medications Medication Instructions Recorded Confirmed atorvastatin 20 mg tablet (Lipitor) 20 mg PO DAILY 11/22/20 clonazepam 1 mg tablet 1 mg PO TID PRN 11/22/20 clozapine 100 mg tablet 50 mg PO BID 11/22/20 clozapine 50 mg tablet 50 mg PO DAILY tab 11/22/20 linaclotide 145 mcg capsule 145 mcg PO DAILY 11/22/20 (Linzess) lisinopril 40 mg tablet 40 mg PO DAILY 11/22/20 metoprolol succinate 50 mg 50 mg PO DAILY 11/22/20 tablet,extended release 24 hr pantoprazole 40 mg tablet,delayed 40 mg PO DAILY 11/22/20 release dulaglutide 0.75 mg/0.5 mL 0.75 mg SUBCUT QWEEK 06/19/21 subcutaneous pen injector (Trulicity) mirabegron 50 mg tablet,extended 1 tab PO DAILY 06/19/21 release 24 hr (Myrbetriq) Previous Rx's Medication Instructions Recorded naproxen 500 mg tablet 500 mg PO BID PRN #20 tab 06/08/20 ondansetron HCl 4 mg tablet 4 mg PO Q8H PRN #10 tab 08/20/20 (Zofran) Allergies Allergy/AdvReac Type Severity Reaction Status Date / Time Penicillins [PENICILLINS] Allergy Severe ANAPHYLAXIS Verified 06/13/21 14:29 adhesive [ADHESIVE] Allergy Unknown RASH Verified 06/13/21 14:29 artichoke [ARTICHOKE] Allergy Unknown RASH Verified 06/13/21 14:29 carbamazepine [From TEGRETOL] Allergy Unknown MIGRAINES Verified 06/13/21 14:29 cariprazine [From VRAYLAR] Allergy Unknown LEG CRAMPS Verified 06/13/21 14:29 fentanyl [FENTANYL] Allergy Unknown RASH Verified 06/13/21 14:29 lamotrigine [From LAMICTAL] Allergy Unknown RASH Verified 06/13/21 14:29 lithium [LITHIUM] AdvReac Severe tremor and Verified 06/13/21 14:29 falls Review of Systems Review of Systems: Constitutional : No Fever, No Chills ENT/Mouth : No Ear Pain, No Nasal Congestion, No sore throat Eyes: No Eye Pain, No Swelling, No Redness Cardiovascular : No Chest Pain, No SOB Respiratory : No Cough, No Sputum, No Dyspnea Gastrointestinal : No Nausea, No Vomiting, No Diarrhea, No Hematochezia, No Melena Genitourinary : No Dysuria, No Urinary Frequency, No Hematuria Musculoskeletal : No Myalgias Skin : No Skin Lesions, No rash Neuro : No Weakness, No Numbness, No Paresthesias, No Dizziness, No Headache Psych : positive Anxiety, positive Depression, positive SI no HI Heme/Lymph: No Lymphadenopathy Endocrine : No Polyuria, No Polydipsia All other systems reviewed and are negative [facility] Past Medical History Attestation statement: The following information was validated with the patient. Medical History Anxiety Bipolar disease, chronic Depression GERD (gastroesophageal reflux disease) High cholesterol Hypertension Migraines Morbid obesity with BMI of 45.0-49.9, adult Obstructive sleep apnea PCOS (polycystic ovarian syndrome) Pre-diabetes Renal colic Thrombosed external hemorrhoid Surgical History History of dilation and curettage Family History Family History Other Breast cancer Social History Social History Alcohol intake: current Alcohol intake frequency: holidays/special occasions only Alcohol type: hard liquor Substance Use Type: Marijuana Advance Directives: Yes Advance Directives Information Provided: Yes Advance Directives on File: No Patient : No Physical Exam Vital Signs: Vital Signs: Last Vital Signs Temp 98.3 F 06/19/21 15:32 Pulse 80 06/19/21 15:32 Resp 19 06/19/21 15:32 BP 154/90 H 06/19/21 15:32 Pulse Ox 96 06/19/21 15:32 Body Mass Index 49.4 Appearance: Alert. Oriented X3. No acute distress. Eyes: Pupils equal, round and reactive to light. ENT: Pharynx normal. Neck: Normal inspection. Neck supple. CVS: Normal heart rate and rhythm. Pulses normal. Respiratory: No respiratory distress. Breath sounds normal. Abdomen: Soft and nontender. Skin: Skin warm and dry. Normal skin color. Normal skin turgor. Extremities: No lower extremity edema. No calf ttp Neuro: Oriented X 3. No motor deficit. No sensory deficit. CN 2-12 intact Psych: tearful, anxious, appears sad Course Course Course Narrative: Physician observation started at 513pm Patient placed in physician observation because the patient needed more time for crisis evaluation to deem if inpatient is necessary. At the time observation was started the patient's vitals were stable, patient is alert and oriented Neuro: nonfocal, CV RRR, Lungs clear Physician observation ended at 550pm. Patient seen and cleared by CARE tea,/ Plan is to follow up with therapist as outpatient NAD, lungs clear, CV RRR, Abd nontender, Neuro intact. Disposition is for home. MDM - Psych MDM Narrative Medical decision making narrative: 46 yo female well known to us in the ED c/o depression and SI due to significant life stressors. Labs and CARE team consult Lab Data Result diagrams: 06/19/21 15:54 06/19/21 15:54 Labs: Lab Results 06/19/21 06/19/21 06/19/21 Range/Units 15:44 15:44 15:54 WBC 9.2 (4.8-10.8) X10*3/uL RBC 4.34 (4.20-5.50) X10*6/uL Hgb 13.2 (12.0-16.0) g/dl Hct 40.1 (37-47) % MCV 92.4 (80-98) fL MCH 30.4 (27.0-33.0) pg MCHC 32.9 (31.0-35.0) g/dl RDW 13.0 (11.0-16.0) % Plt Count 244 (160-400) X10*3/uL MPV 9.7 (9.4-12.3) fL Immature Gran % (Auto) 0.4 (0.0-0.4) % Neut % (Auto) 67.3 (45-73) % Lymph % (Auto) 25.4 (20-40) % Gibson % (Auto) 5.5 (2-11) % Eos % (Auto) 1.0 (0-4) % Baso % (Auto) 0.4 (0-2) % Lymph # (Auto) 2.3 (1.2-4.9) X10*3/uL Gibson # (Auto) 0.5 (0.1-1.2) X10*3/uL Eos # (Auto) 0.1 (0.0-0.4) X10*3/uL Baso # (Auto) 0.0 (0.0-0.2) X10*3/uL Abs Immat Gran (auto) 0.04 H (0.00-0.03) X10*3/uL Absolute Neuts (auto) 6.2 (2.0-8.3) X10*3/uL Absolute Nucleated RBC 0.000 (0.0-0.012) X10*3/uL Nucleated RBC % (auto) 0.0 (0.0-0.2) /100WBC Sodium (135-145) mmol/L Potassium (3.3-5.1) mmol/L Chloride (96-108) mmol/L Carbon Dioxide (22-29) mmol/L Anion Gap (12-20) BUN (9-16) mg/dL Creatinine (0.5-1.4) mg/dL Estim Creat Clear Calc Estimated GFR Random Glucose (60-115) mg/dL Calcium (8.4-10.2) mg/dL Magnesium (1.6-2.6) mg/dL Total Bilirubin (0.0-1.0) mg/dL Direct Bilirubin (0.0-0.5) mg/dL AST (5-31) U/L ALT (0-31) U/L Alkaline Phosphatase (39-117) U/L Total Protein (6.5-8.0) g/dL Albumin (3.5-5.0) g/dL Urine Opiates Screen Not Detected (Not Detect) Urine Fentanyl Screen Not Detected (Not Detect) Ur Barbiturates Screen Not Detected (Not Detect) Ur Phencyclidine Scrn Not Detected (Not Detect) Ur Amphetamines Screen Not Detected (Not Detect) U Benzodiazepines Scrn Not Detected (Not Detect) Urine Cocaine Screen Not Detected (Not Detect) U Marijuana (THC) Screen Not Detected (Not Detect) COVID-19 (ANA) Negative (Negative) COVID-19 Clin Com See Note 06/19/21 Range/Units 15:54 WBC (4.8-10.8) X10*3/uL RBC (4.20-5.50) X10*6/uL Hgb (12.0-16.0) g/dl Hct (37-47) % MCV (80-98) fL MCH (27.0-33.0) pg MCHC (31.0-35.0) g/dl RDW (11.0-16.0) % Plt Count (160-400) X10*3/uL MPV (9.4-12.3) fL Immature Gran % (Auto) (0.0-0.4) % Neut % (Auto) (45-73) % Lymph % (Auto) (20-40) % Gibson % (Auto) (2-11) % Eos % (Auto) (0-4) % Baso % (Auto) (0-2) % Lymph # (Auto) (1.2-4.9) X10*3/uL Gibson # (Auto) (0.1-1.2) X10*3/uL Eos # (Auto) (0.0-0.4) X10*3/uL Baso # (Auto) (0.0-0.2) X10*3/uL Abs Immat Gran (auto) (0.00-0.03) X10*3/uL Absolute Neuts (auto) (2.0-8.3) X10*3/uL Absolute Nucleated RBC (0.0-0.012) X10*3/uL Nucleated RBC % (auto) (0.0-0.2) /100WBC Sodium 140 (135-145) mmol/L Potassium 4.3 (3.3-5.1) mmol/L Chloride 104 (96-108) mmol/L Carbon Dioxide 28 (22-29) mmol/L Anion Gap 12 (12-20) BUN 8 L (9-16) mg/dL Creatinine 0.70 (0.5-1.4) mg/dL Estim Creat Clear Calc 149.4 Estimated GFR > 60 Random Glucose 85 (60-115) mg/dL Calcium 9.1 (8.4-10.2) mg/dL Magnesium 1.9 (1.6-2.6) mg/dL Total Bilirubin 0.3 (0.0-1.0) mg/dL Direct Bilirubin < 0.2 (0.0-0.5) mg/dL AST 19 (5-31) U/L ALT 24 (0-31) U/L Alkaline Phosphatase 75 (39-117) U/L Total Protein 6.9 (6.5-8.0) g/dL Albumin 4.2 (3.5-5.0) g/dL Urine Opiates Screen (Not Detect) Urine Fentanyl Screen (Not Detect) Ur Barbiturates Screen (Not Detect) Ur Phencyclidine Scrn (Not Detect) Ur Amphetamines Screen (Not Detect) U Benzodiazepines Scrn (Not Detect) Urine Cocaine Screen (Not Detect) U Marijuana (THC) Screen (Not Detect) COVID-19 (ANA) (Negative) COVID-19 Clin Com Discharge Plan Discharge Clinical Impression: Depression Qualifiers: Depression Type: unspecified Qualified Code(s): F32.A - Depression, unspecified Patient Disposition: Home, Self-Care Instructions: Depression (ED) Additional Instructions: return to ED for any worsening symptoms or concerns please follow up with your outpatient mental health providers Prescriptions: No Action naproxen 500 mg tablet 500 mg PO BID PRN (Reason: pain) Qty: 20 RF: 0 ondansetron HCl [Zofran] 4 mg tablet 4 mg PO Q8H PRN (Reason: nausea and vomiting) Qty: 10 RF: 0 Myrbetriq 50 mg tablet extended release 24 hr 1 tab PO DAILY RF: 0 Trulicity 0.75 mg/0.5 mL pen injector 0.75 mg subcut QWEEK RF: 0 metoprolol succinate 50 mg tablet extended release 24 hr 50 mg PO DAILY RF: 0 lisinopril 40 mg tablet 40 mg PO DAILY RF: 0 pantoprazole 40 mg tablet,delayed release (DR/EC) 40 mg PO DAILY RF: 0 Linzess 145 mcg capsule 145 mcg PO DAILY RF: 0 clozapine 100 mg tablet 50 mg PO BID RF: 0 clozapine 50 mg tablet 50 mg PO DAILY RF: 0 clonazepam 1 mg tablet 1 mg PO TID PRN (Reason: Anxiety) RF: 0 atorvastatin [Lipitor] 20 mg tablet 20 mg PO DAILY RF: 0
[2021-06-19 16:11] LABS: MANUAL DIFF FLAG NO
[2021-06-19 16:14] LABS: Basophils Percent Auto 0.4 % (0-2); Eosinophils Absolute Auto 0.1 X10*3/uL (0.0-0.4); Hematocrit 40.1 % (37-47); Hemoglobin 13.2 g/dl (12.0-16.0); Imm Gran Abs Auto 0.04 X10*3/uL (0.00-0.03); Imm Gran Pct Auto 0.4 % (0.0-0.4); Lymphocytes Absolute Auto 2.3 X10*3/uL (1.2-4.9); Lymphocytes Percent Auto 25.4 % (20-40); Mean Corpuscular HGB Conc 32.9 g/dl (31.0-35.0); Mean Corpuscular Hemoglobin 30.4 pg (27.0-33.0); Mean Corpuscular Volume 92.4 fL (80-98); Mean Platelet Volume 9.7 fL (9.4-12.3); Monocytes Absolute Auto 0.5 X10*3/uL (0.1-1.2); Monocytes Percent Auto 5.5 % (2-11); Neutrophils Absolute Auto 6.2 X10*3/uL (2.0-8.3); Neutrophils Percent Auto 67.3 % (45-73); Platelet Count 244 X10*3/uL (160-400); Red Blood Count 4.34 X10*6/uL (4.20-5.50); White Blood Count 9.2 X10*3/uL (4.8-10.8)
[2021-06-19 16:18] LABS: COVID-19 Test Negative (Negative); IDNOW Serial# 08D9AD1C
[2021-06-19 16:21] LABS: Amphetamine Screen Urine Not Detected (Not Detect); Barbiturates, Urine Not Detected (Not Detect); Benzodiazepines Screen Urine Not Detected (Not Detect); Cannabinoid Screen Urine Not Detected (Not Detect); Cocaine Screen Urine Not Detected (Not Detect); Fentanyl, urine Not Detected (Not Detect); Opiate Screen Urine Not Detected (Not Detect); Phencyclidine Screen Urine Not Detected (Not Detect)
[2021-06-19 16:27] LABS: Alanine Aminotransferase 24 U/L (0-31); Albumin Level 4.2 g/dL (3.5-5.0); Alkaline Phosphatase 75 U/L (39-117); Anion Gap 12 (12-20); Aspartate Amino Transferase 19 U/L (5-31); Bilirubin Direct < 0.2 mg/dL (0.0-0.5); Bilirubin Total 0.3 mg/dL (0.0-1.0); Blood Urea Nitrogen 8 mg/dL (9-16); Calcium 9.1 mg/dL (8.4-10.2); Carbon Dioxide 28 mmol/L (22-29); Chloride 104 mmol/L (96-108); Creatinine Clr Calc Pharmacy 149.4; Estimated Glomerular Filt Rate > 60; Glucose Random 85 mg/dL (60-115); Magnesium 1.9 mg/dL (1.6-2.6); Potassium 4.3 mmol/L (3.3-5.1); Sodium 140 mmol/L (135-145); Total Protein 6.9 g/dL (6.5-8.0)
[2021-06-19 17:57] VITALS: BP 142/78; PULSE 84; RESP 18; TEMP 37; O2SAT 97
--- NOTE | 2021-06-19 17:57 | PC.NURSE ---
Pt alert and oriented x4, calm and cooperative. Pt denies pain. Pt states she is comfortable with discharge. Pt educated on dc.
--- NOTE | 2021-06-19 18:01 | MHC.CARE ---
CARE team consult received for pt who self presented to the ED endorsing increased anxiety sadness secondary to family stress. Denied SI/HI/SIB/AVH. Taking medications as prescribed, feels that she's been doing well overall but has felt numb for the past week. This typewriter tester provided space for pt to talk through the situation and her feelings and discussed how she can utilize natural supports, such as friends and family, in order to better cope and feel supported. Pt is comfortable with returning home at this time. Discussed plan of care with ED physician Briseida Pruett DO and CARE staff nurse icu resource team Jackelyn HUANG. Plan is for discharge and follow up with outpatient providers.
== END 2021-06-19 18:06 | disposition home or self-care (01) ==
PROVIDERS: Emergency Provider Emergency Medicine; PCP Internal Medicine
DX: F32.A Depression, unspecified (principal); F43.9 Reaction to severe stress, unspecified; I10 Essential (primary) hypertension; Z79.899 Other long term (current) drug therapy; Z20.822 Contact with and (suspected) exposure to COVID-19
CPT/HCPCS: 36415; 80048; 80076; 80307; 83735; 85025; 87635; 99284

== ENCOUNTER 2021-06-30 09:38 | Outpatient (REF) | payer MEDICARE, MEDICAID, SELFPAY ==
[2021-06-30 10:07] LABS: Neutrophils Absolute Auto 4.8 x10*3/uL (2.0-8.3); White Blood Count 7.7 X10*3/uL (4.8-10.8)
== END 2021-06-30 09:39 | disposition home or self-care (01) ==
LOC: HO.LABR 09:38
PROVIDERS: PCP Internal Medicine; Visit Provider Psychiatry & Neurology Psychiatry
DX: Z79.899 Other long term (current) drug therapy (principal)
CPT/HCPCS: 36415; 85048

== ENCOUNTER 2021-07-10 15:15 | Outpatient (REF) | payer MEDICARE, MEDICAID, SELFPAY ==
--- NOTE | ~2021-07-10 | US_ITS ---
EXAMINATION: US RETROPERITONEAL LIMITED (RENAL ONLY) CLINICAL INFORMATION: Flank pain x1 week. ?nephrolithiasis. COMPARISON: CT abdomen and pelvis with contrast dated 08/20/2020. Ultrasound abdomen complete dated 06/21/2020 and 12/04/2014. KUB dated 10/22/2018. X-ray abdomen dated 05/06/2018. TECHNIQUE: Real-time imaging of the kidneys. FINDINGS: RIGHT KIDNEY: 13.7 x 5.6 x 8.5 cm (SAG x AP x TRV). The kidney is normal in size, contour, and echogenicity. Renal cortical thickness is normal. No renal calculi or hydronephrosis. There is a complex cyst upper pole with septation measuring 2.7 x 2.5 x 3.2 cm. There is an extrarenal kidney pelvis noted. LEFT KIDNEY: 15.1 x 6.0 x 6.3 cm (SAG x AP x TRV). The kidney is normal in size, contour, and echogenicity. Renal cortical thickness is normal. No calculi or focal parenchymal lesions. No hydronephrosis. There is an extrarenal pelvis noted. US/US renal BI IMPRESSION: There are bilateral extrarenal kidney pelves. Complex upper pole cyst with septation right kidney.
== END 2021-07-10 15:16 | disposition home or self-care (01) ==
LOC: HO.HMGCX 15:15
PROVIDERS: PCP Internal Medicine; Visit Provider Internal Medicine
DX: R10.9 Unspecified abdominal pain (principal)
CPT/HCPCS: 76775

== ENCOUNTER 2021-07-23 14:11 | Emergency (ER) | payer MEDICARE, MEDICAID, SELFPAY ==
[2021-07-23 14:26] VITALS: BP 149/79; PULSE 82; RESP 18; TEMP 36.7; O2SAT 96; BMI 49.8
--- NOTE | 2021-07-23 18:07 | ED.GENADULT ---
HPI - General Adult General Chief complaint: General Medical Stated complaint: back pain side pain Time Seen by Provider: 07/23/21 18:07 Source: patient Mode of arrival: ambulatory Limitations: no limitations History of Present Illness HPI narrative: Patient with history of bipolar disorder, depression, hypertension, renal colic been here multiple times for different reasons complaining of pain in the left flank area for last 4 days and ultrasound 2 weeks ago which was negative for stones also complaining of nausea vomited 1 time feels difficulty in concentration arms heavy multiple other complaints no fever no chills no significant abdominal pain no hematuria no urinary complaints Related Data Home Medications Medication Instructions Recorded Confirmed atorvastatin 20 mg tablet (Lipitor) 20 mg PO DAILY 11/22/20 clonazepam 1 mg tablet 1 mg PO TID PRN 11/22/20 clozapine 100 mg tablet 50 mg PO BID 11/22/20 clozapine 50 mg tablet 50 mg PO DAILY tab 11/22/20 linaclotide 145 mcg capsule 145 mcg PO DAILY 11/22/20 (Linzess) lisinopril 40 mg tablet 40 mg PO DAILY 11/22/20 metoprolol succinate 50 mg 50 mg PO DAILY 11/22/20 tablet,extended release 24 hr pantoprazole 40 mg tablet,delayed 40 mg PO DAILY 11/22/20 release dulaglutide 0.75 mg/0.5 mL 0.75 mg SUBCUT QWEEK 06/19/21 subcutaneous pen injector (Trulicity) mirabegron 50 mg tablet,extended 1 tab PO DAILY 06/19/21 release 24 hr (Myrbetriq) Previous Rx's Medication Instructions Recorded naproxen 500 mg tablet 500 mg PO BID PRN #20 tab 06/08/20 ondansetron HCl 4 mg tablet 4 mg PO Q8H PRN #10 tab 08/20/20 (Zofran) oxycodone 5 mg tablet 5 mg PO Q6H PRN #20 tab 07/23/21 Allergies Allergy/AdvReac Type Severity Reaction Status Date / Time Penicillins [PENICILLINS] Allergy Severe ANAPHYLAXIS Verified 06/13/21 14:29 adhesive [ADHESIVE] Allergy Unknown RASH Verified 06/13/21 14:29 artichoke [ARTICHOKE] Allergy Unknown RASH Verified 06/13/21 14:29 carbamazepine [From TEGRETOL] Allergy Unknown MIGRAINES Verified 06/13/21 14:29 cariprazine [From VRAYLAR] Allergy Unknown LEG CRAMPS Verified 06/13/21 14:29 fentanyl [FENTANYL] Allergy Unknown RASH Verified 06/13/21 14:29 lamotrigine [From LAMICTAL] Allergy Unknown RASH Verified 06/13/21 14:29 lithium [LITHIUM] AdvReac Severe tremor and Verified 06/13/21 14:29 falls Review of Systems Review of Systems: Yes all other systems are reviewed and are negative [facility] Past Medical History Medical History Anxiety Bipolar disease, chronic Depression GERD (gastroesophageal reflux disease) High cholesterol Hypertension Migraines Morbid obesity with BMI of 45.0-49.9, adult Obstructive sleep apnea PCOS (polycystic ovarian syndrome) Pre-diabetes Renal colic Thrombosed external hemorrhoid Surgical History History of dilation and curettage Family History Family History Other Breast cancer Social History Social History Alcohol intake: never Smoked in Last 30 Days: No Use of substances other than those prescribed or required for medical reasons: No Substance Use Type: Marijuana Advance Directives: No Advance Directives Information Provided: No Physical Exam Vital Signs: Vital Signs: Last Vital Signs Temp 98.4 F 07/23/21 20:15 Pulse 78 07/23/21 20:15 Resp 18 07/23/21 20:15 BP 144/76 H 07/23/21 20:15 Pulse Ox 97 07/23/21 20:15 Body Mass Index 49.8 Appearance: Alert. Oriented X3. No acute distress. Eyes: No pallor or icterus ENT: Pharynx normal. Oral Mucosa moist Neck: Normal inspection. Neck supple. CVS: Normal heart rate and rhythm. Pulses normal. Respiratory: No respiratory distress. Equal air entry bilateral, no wheezing/rales/rhonchi Abdomen: Soft and nontender. Bowel sounds are present, no mass palpable, mild left CVA tenderness Skin: Skin warm and dry. Normal skin color. Normal skin turgor. Extremities: No lower extremity edema. No calf tenderness Neuro: Oriented X 3. Medical Decision Making Lab Data Labs: Lab Results 07/23/21 Range/Units 19:34 Urine Color YELLOW Urine Appearance CLEAR Urine pH 6.0 (5.0-8.0) Ur Specific [place] <= 1.005 (1.005-1.025) Urine Protein NEG (NEG-TRACE) MG/DL Urine Glucose (UA) NEG (NEG) MG/DL Urine Ketones NEG (NEG) MG/DL Urine Blood NEG (NEG) Urine Nitrite NEG (NEG) Ur Leukocyte Esterase NEG (NEG) Discharge Plan Discharge Clinical Impression: Back pain Patient Disposition: Home, Self-Care Instructions: Back Pain (ED) Additional Instructions: Rest at home Pain medication as prescribed Follow with PCP if not better Prescriptions: New oxycodone 5 mg tablet 5 mg PO Q6H PRN (Reason: Pain (Scale Score 7-10)) Qty: 20 RF: 0 No Action naproxen 500 mg tablet 500 mg PO BID PRN (Reason: pain) Qty: 20 RF: 0 ondansetron HCl [Zofran] 4 mg tablet 4 mg PO Q8H PRN (Reason: nausea and vomiting) Qty: 10 RF: 0 Myrbetriq 50 mg tablet extended release 24 hr 1 tab PO DAILY RF: 0 Trulicity 0.75 mg/0.5 mL pen injector 0.75 mg subcut QWEEK RF: 0 metoprolol succinate 50 mg tablet extended release 24 hr 50 mg PO DAILY RF: 0 lisinopril 40 mg tablet 40 mg PO DAILY RF: 0 pantoprazole 40 mg tablet,delayed release (DR/EC) 40 mg PO DAILY RF: 0 Linzess 145 mcg capsule 145 mcg PO DAILY RF: 0 clozapine 100 mg tablet 50 mg PO BID RF: 0 clozapine 50 mg tablet 50 mg PO DAILY RF: 0 clonazepam 1 mg tablet 1 mg PO TID PRN (Reason: Anxiety) RF: 0 atorvastatin [Lipitor] 20 mg tablet 20 mg PO DAILY RF: 0 Interventions: ED Discharge Assessment Last Done: 07/23/21 20:22 Discharge Date/Time: 07/23/21 20:23
[2021-07-23] MEDS: Cyclobenzaprine HCl 10 MG TABLET PO (18:48)
[2021-07-23] MEDS: traMADoL HCL 50 MG TABLET PO (18:48)
[2021-07-23 19:45] LABS: Appearance Urine CLEAR; Color Urine YELLOW; Glucose Urine UA NEG (NEG); Leukocyte Esterase Urine NEG (NEG); Nitrite Urine NEG (NEG); Specific Gravity - Urine <= 1.005 (1.005-1.025); Urine Blood NEG (NEG); Urine Ketones NEG (NEG); Urine Protein NEG (NEG-TRACE)
[2021-07-23 20:15] VITALS: BP 144/76; PULSE 78; RESP 18; TEMP 36.9; O2SAT 97
[2021-07-23] MEDS: oxyCODONE HCl Immed Release 5 MG TABLET 10 MG PO (20:18)
== END 2021-07-23 20:23 | disposition home or self-care (01) ==
PROVIDERS: Emergency Provider Internal Medicine; PCP Internal Medicine
DX: R10.9 Unspecified abdominal pain (principal); I10 Essential (primary) hypertension; E78.5 Hyperlipidemia, unspecified; Z79.02 Long term (current) use of antithrombotics/antiplatelets; Z79.899 Other long term (current) drug therapy
CPT/HCPCS: 81003; 99283; 99284

== ENCOUNTER 2021-07-25 11:48 | Outpatient (REF) | payer MEDICARE, MEDICAID, SELFPAY ==
--- NOTE | ~2021-07-25 | XR_ITS ---
EXAMINATION: XR RIBS, LEFT CLINICAL INFORMATION: Pain COMPARISON: Previous chest x-ray May 2021 TECHNIQUE: 3 views of the left ribs and one view of the chest were obtained. FINDINGS: The cardiac and mediastinal contours are normal. The lungs are clear. There is no pleural effusion or pneumothorax. No fracture is seen. XR/XR ribs LT min 3V w CXR1V IMPRESSION: Unremarkable examination.
[2021-07-25 13:21] LABS: Neutrophils Absolute Auto 5.8 x10*3/uL (2.0-8.3); White Blood Count 8.5 X10*3/uL (4.8-10.8)
== END 2021-07-25 11:49 | disposition home or self-care (01) ==
LOC: HO.XRAY 11:48
PROVIDERS: Absent Provider Internal Medicine; PCP Internal Medicine; Visit Provider Psychiatry & Neurology Psychiatry
DX: R10.9 Unspecified abdominal pain (principal); Z79.899 Other long term (current) drug therapy
CPT/HCPCS: 36415; 71101; 85048

== ENCOUNTER 2021-08-23 12:03 | Outpatient (REF) | payer MEDICARE, MEDICAID, SELFPAY ==
[2021-08-23 12:43] LABS: Neut%MD 66.5 %; Neutrophils Absolute Auto 5.4 x10*3/uL (2.0-8.3); WBCANC 8.2 X10*3/uL; White Blood Count 8.2 X10*3/uL (4.8-10.8)
== END 2021-08-23 12:04 | disposition home or self-care (01) ==
LOC: HO.LABR 12:03
PROVIDERS: Psychiatry & Neurology Psychiatry; PCP Internal Medicine; Visit Provider Internal Medicine
DX: Z79.899 Other long term (current) drug therapy (principal)
CPT/HCPCS: 36415; 85048

== ENCOUNTER 2021-09-07 13:00 | Emergency (ER) | payer MEDICARE, MEDICAID, SELFPAY ==
--- NOTE | ~2021-09-07 | CT_ITS ---
EXAMINATION: CT ABDOMEN AND PELVIS WITHOUT CONTRAST CLINICAL INFORMATION: Right lower abdominal pain COMPARISON: 08/20/2020 TECHNIQUE: Multidetector volumetric imaging was performed from the superior aspect of the liver through the pubic symphysis. Sagittal and coronal reformatted images were obtained on the technologist's workstation. This CT examination was performed using dose optimization techniques as appropriate, variously including the following: *Automated exposure control *Adjustment of mA and/or kV according to patient size (this includes techniques or standardized protocols for targeted exams where dose is matched to indication/reason for exam; i.e. extremities or head) *Use of iterative reconstruction technique DLP: 1462 mGy-cm FINDINGS: LUNG BASES: There are couple pneumatoceles within left lower lobe. No parenchymal consolidation LIVER, GALLBLADDER, AND BILIARY TREE: Liver normal in size, contour and morphology. Mild hepatic steatosis. Stable cyst within lateral segment. No suspicious liver lesions. No intra or extra hepatic biliary dilatation. Gallbladder unremarkable. PANCREAS: Unremarkable. SPLEEN: Unremarkable. ADRENAL GLANDS: Unremarkable. KIDNEYS AND URETERS: The kidneys are normal in size, shape, and attenuation. Bilateral renal cysts are benign and require no further follow-up. No hydronephrosis, hydroureter, or calculi seen. Mild fairly symmetric bilateral perinephric stranding. BLADDER: Unremarkable. GASTROINTESTINAL TRACT: There are a few scattered colonic diverticula. No evidence of diverticulitis. Normal appendix. Stomach and small bowel unremarkable. ABDOMINAL WALL: No significant hernia is appreciated. LYMPH NODES: Normal. VASCULAR: Unremarkable. PELVIC VISCERA: Uterus and adnexa unremarkable. OSSEOUS STRUCTURES: No acute or suspicious osseous abnormalities. 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 CT/CT abdomen pelvis wo con IMPRESSION: * No clear etiology for the patient's abdominal pain is evident on this unenhanced exam. * No urinary calculi or hydronephrosis. * There is mild bilateral perinephric stranding, fairly symmetric bilaterally. Please note that pyelonephritis cannot be excluded on unenhanced CT. * Hepatic steatosis. * Scattered colonic diverticula without evidence of diverticulitis.
[2021-09-07 15:08] VITALS: BP 149/90; PULSE 88; RESP 20; TEMP 37.1; O2SAT 95; BMI 50.5
--- NOTE | 2021-09-07 15:11 | ECG_ITS ---
Test Reason : abd pain Blood Pressure : / mmHG Vent. Rate : 084 BPM Atrial Rate : 084 BPM P-R Int : 190 ms QRS Dur : 084 ms QT Int : 380 ms P-R-T Axes : 035 012 037 degrees QTc Int : 449 ms Normal sinus rhythm Minimal voltage criteria for LVH, may be normal variant ( R in aVL ) Borderline ECG When compared with ECG of 13-JUN-2021 14:44, No significant change was found Referred By: Generic ED Physician Electronically Signed By:THERESA HUTSON
[2021-09-07] MEDS: Ondansetron ODT 4 MG TAB.RAPDIS TRANSLINGU (15:14)
[2021-09-07 15:44] LABS: Appearance Urine CLEAR; Color Urine YELLOW; Glucose Urine UA NEG (NEG); Leukocyte Esterase Urine NEG (NEG); Nitrite Urine NEG (NEG); Specific Gravity - Urine <= 1.005 (1.005-1.025); Urine Blood NEG (NEG); Urine Ketones NEG (NEG); Urine Protein NEG (NEG-TRACE)
--- NOTE | 2021-09-07 23:59 | ED.ABDPAIN ---
HPI - Abdominal Pain General Chief Complaint: Abdominal Pain Stated Complaint: chest pain abd pain Time Seen by Provider: 09/07/21 23:58 Source: patient Mode of arrival: ambulatory Limitations: no limitations History of Present Illness HPI narrative: aching and burning abdominal pain since this morning, low grade fever, denies vomiting and diarrhea. Has had nausea all day. MD elicited complaint: abdominal pain Pertinent past history: none Onset (ago): hour(s) Pain Consistency: constant Location: diffuse Severity: mild Quality: aching and burning Exacerbating factors: nothing Relieving factors: nothing Associated symptoms: denies other symptoms and nausea Related Data Home Medications Medication Instructions Recorded Confirmed atorvastatin 20 mg tablet (Lipitor) 20 mg PO DAILY 11/22/20 clonazepam 1 mg tablet 1 mg PO TID PRN 11/22/20 clozapine 100 mg tablet 50 mg PO BID 11/22/20 clozapine 50 mg tablet 50 mg PO DAILY tab 11/22/20 linaclotide 145 mcg capsule 145 mcg PO DAILY 11/22/20 (Linzess) lisinopril 40 mg tablet 40 mg PO DAILY 11/22/20 metoprolol succinate 50 mg 50 mg PO DAILY 11/22/20 tablet,extended release 24 hr pantoprazole 40 mg tablet,delayed 40 mg PO DAILY 11/22/20 release dulaglutide 0.75 mg/0.5 mL 0.75 mg SUBCUT QWEEK 06/19/21 subcutaneous pen injector (Trulicity) mirabegron 50 mg tablet,extended 1 tab PO DAILY 06/19/21 release 24 hr (Myrbetriq) Previous Rx's Medication Instructions Recorded naproxen 500 mg tablet 500 mg PO BID PRN #20 tab 06/08/20 ondansetron HCl 4 mg tablet 4 mg PO Q8H PRN #10 tab 08/20/20 (Zofran) oxycodone 5 mg tablet 5 mg PO Q6H PRN #20 tab 07/23/21 Allergies Allergy/AdvReac Type Severity Reaction Status Date / Time Penicillins [PENICILLINS] Allergy Severe ANAPHYLAXIS Verified 06/13/21 14:29 adhesive [ADHESIVE] Allergy Unknown RASH Verified 06/13/21 14:29 artichoke [ARTICHOKE] Allergy Unknown RASH Verified 06/13/21 14:29 carbamazepine [From TEGRETOL] Allergy Unknown MIGRAINES Verified 06/13/21 14:29 cariprazine [From VRAYLAR] Allergy Unknown LEG CRAMPS Verified 06/13/21 14:29 fentanyl [FENTANYL] Allergy Unknown RASH Verified 06/13/21 14:29 lamotrigine [From LAMICTAL] Allergy Unknown RASH Verified 06/13/21 14:29 lithium [LITHIUM] AdvReac Severe tremor and Verified 06/13/21 14:29 falls Review of Systems Constitutional: Reports no additional constitutional complaints Eyes: Reports no additional eye complaints Denies dizziness Cardiovascular: Reports no additional cardiovascular complaints Respiratory: Reports as per HPI Gastrointestinal: Reports no additional gastrointestinal complaints Genitourinary: Reports no additional female genitourinary complaints Musculoskeletal: Reports no additional musculoskeletal complaints Skin/Breast: Denies rash Reports system reviewed and no additional complaints, except as documented, Denies dizziness and Denies Sensory deficit (Neuro) Psychiatric: Denies anxiety Physical Exam Vital Signs: Vital Signs: Last Vital Signs Temp 98.1 F 09/08/21 01:23 Pulse 72 09/08/21 01:23 Resp 18 09/08/21 01:23 BP 136/61 09/08/21 01:23 Pulse Ox 95 09/08/21 01:23 BMI result Body Mass Index 50.5 Const: General: healthy appearing Nutritional Appearance: obese Orientation/consciousness: oriented to person and patient oriented x3 Limitations: no limitations HENMT: Head: Yes normal to inspection Ears: external ears normal General nose exam: Normal external nose present Mouth: Normal oral and palatal mucosa present and oropharynx normal Throat: Yes posterior oropharynx normal Eyes: General: appearance normal, both eyes and all related structures Neck: Other: supple Neck: Yes normal visual inspection Chest: Chest palpation & inspection: normal inspection of the chest Resp: Auscultation: clear to auscultation bilaterally Cardio: Jugular venous distension: no JVD Rate: regular rate Rhythm: regular rhythm Heart sounds: S1 normal heart sound present and S2 normal heart sound present GI: Other: obese with diffuse tenderness with most pain in the RLQ with guarding no rebound. Palpation (GI): Soft to palpation, nontender and No hepatosplenomegaly present Auscultation: normal bowel sounds : General: Yes no CVA tenderness Back/Spine/Pelvis: Back: no CVA tenderness Skin: General skin exam: no rashes or lesions noted Neuro: General: oriented to person and patient oriented x3 Cranial nerves: Yes CN's II-XII intact bilaterally Motor exam (neuro): 5/5 motor strength present throughout Sensory Exam: No Sensory deficit (Neuro) Extrem: General: Yes normal to inspection Psych: Appearance: grossly normal Course Reevaluation(s) Reevaluation #1: patient with nonspecific abdominal pain, will dc home and have patient follow up with her pMD Time: 02:53 MDM - Abdominal Pain Lab Data Result diagrams: 09/08/21 01:18 09/08/21 01:18 Labs: Lab Results 09/07/21 09/08/21 09/08/21 Range/Units 15:37 01:18 01:18 WBC 10.9 H (4.8-10.8) X10*3/uL RBC 4.29 (4.20-5.50) X10*6/uL Hgb 13.0 (12.0-16.0) g/dl Hct 39.4 (37.0-47.0) % MCV 91.8 (80.0-98.0) fL MCH 30.3 (27.0-33.0) pg MCHC 33.0 (31.0-35.0) g/dl RDW 13.2 (11.0-16.0) % Plt Count 236 (160-400) X10*3/uL MPV 9.5 (9.4-12.3) fL Immature Gran % (Auto) 0.3 (0.0-0.4) % Neut % (Auto) 63.2 (45-73) % Lymph % (Auto) 30.9 (20-40) % [place] % (Auto) 4.8 (2-11) % Eos % (Auto) 0.5 (0-4) % Baso % (Auto) 0.3 (0-2) % Lymph # (Auto) 3.4 (1.2-4.9) X10*3/uL [place] # (Auto) 0.5 (0.1-1.2) X10*3/uL Eos # (Auto) 0.1 (0.0-0.4) X10*3/uL Baso # (Auto) 0.0 (0.0-0.2) X10*3/uL Abs Immat Gran (auto) 0.03 (0.00-0.03) X10*3/uL Absolute Neuts (auto) 6.9 (2.0-8.3) x10*3/uL Absolute Nucleated RBC 0.000 (0.0-0.012) X10*3/uL Nucleated RBC % (auto) 0.0 (0.0-0.2) /100WBC Sodium 139 (135-145) mmol/L Potassium 3.8 (3.3-5.1) mmol/L Chloride 104 (96-108) mmol/L Carbon Dioxide 26 (22-29) mmol/L Anion Gap 13 (12-20) BUN 9 (9-16) mg/dL Creatinine 0.71 (0.5-1.4) mg/dL Estim Creat Clear Calc 149.3 Estimated GFR > 60 Random Glucose 110 (60-115) mg/dL Calcium 9.1 (8.4-10.2) mg/dL Total Bilirubin 0.6 (0.0-1.0) mg/dL Direct Bilirubin 0.2 (0.0-0.5) mg/dL AST 14 (5-31) U/L ALT 20 (0-31) U/L Alkaline Phosphatase 69 (39-117) U/L Total Protein 6.7 (6.5-8.0) g/dL Albumin 4.1 (3.5-5.0) g/dL Urine Color YELLOW Urine Appearance CLEAR Urine pH 7.0 (5.0-8.0) Ur Specific [place] <= 1.005 (1.005-1.025) Urine Protein NEG (NEG-TRACE) MG/DL Urine Glucose (UA) NEG (NEG) MG/DL Urine Ketones NEG (NEG) MG/DL Urine Blood NEG (NEG) Urine Nitrite NEG (NEG) Ur Leukocyte Esterase NEG (NEG) Imaging Data CT scan - abdomen: Radiologist's impression: IMPRESSION: *? No clear etiology for the patient's abdominal pain is evident on this unenhanced exam. *? No urinary calculi or hydronephrosis. *? There is mild bilateral perinephric stranding, fairly symmetric bilaterally. Please note that pyelonephritis cannot be excluded on unenhanced CT. *? Hepatic steatosis. *? Scattered colonic diverticula without evidence of diverticulitis. Discharge Plan Discharge Clinical Impression: Abdominal pain Qualifiers: Abdominal location: generalized Qualified Code(s): R10.84 - Generalized abdominal pain Patient Disposition: Home, Self-Care Instructions: Abdominal Pain (ED) Prescriptions: No Action naproxen 500 mg tablet 500 mg PO BID PRN (Reason: pain) Qty: 20 RF: 0 ondansetron HCl [Zofran] 4 mg tablet 4 mg PO Q8H PRN (Reason: nausea and vomiting) Qty: 10 RF: 0 Myrbetriq 50 mg tablet extended release 24 hr 1 tab PO DAILY RF: 0 Trulicity 0.75 mg/0.5 mL pen injector 0.75 mg subcut QWEEK RF: 0 oxycodone 5 mg tablet 5 mg PO Q6H PRN (Reason: Pain (Scale Score 7-10)) Qty: 20 RF: 0 metoprolol succinate 50 mg tablet extended release 24 hr 50 mg PO DAILY RF: 0 lisinopril 40 mg tablet 40 mg PO DAILY RF: 0 pantoprazole 40 mg tablet,delayed release (DR/EC) 40 mg PO DAILY RF: 0 Linzess 145 mcg capsule 145 mcg PO DAILY RF: 0 clozapine 100 mg tablet 50 mg PO BID RF: 0 clozapine 50 mg tablet 50 mg PO DAILY RF: 0 clonazepam 1 mg tablet 1 mg PO TID PRN (Reason: Anxiety) RF: 0 atorvastatin [Lipitor] 20 mg tablet 20 mg PO DAILY RF: 0 Referrals: Ann-Marie Camacho MD [Primary Care Provider] - 5 days PMF Past Medical History Medical History Anxiety Bipolar disease, chronic Depression GERD (gastroesophageal reflux disease) High cholesterol Hypertension Migraines Morbid obesity with BMI of 45.0-49.9, adult Obstructive sleep apnea PCOS (polycystic ovarian syndrome) Pre-diabetes Renal colic Thrombosed external hemorrhoid Surgical History History of dilation and curettage Family History Family History Other Breast cancer Social History Social History Alcohol intake: never Substance Use Type: Marijuana Advance Directives: No Advance Directives Information Provided: No Patient : No
[2021-09-08 01:22] LABS: MANUAL DIFF FLAG NO
[2021-09-08 01:23] VITALS: BP 136/61; PULSE 72; RESP 18; TEMP 36.7; O2SAT 95
[2021-09-08 01:23] LABS: Basophils Percent Auto 0.3 % (0-2); Eosinophils Absolute Auto 0.1 X10*3/uL (0.0-0.4); Eosinophils Percent Auto 0.5 % (0-4); Hematocrit 39.4 % (37.0-47.0); Imm Gran Abs Auto 0.03 X10*3/uL (0.00-0.03); Imm Gran Pct Auto 0.3 % (0.0-0.4); Lymphocytes Absolute Auto 3.4 X10*3/uL (1.2-4.9); Lymphocytes Percent Auto 30.9 % (20-40); Mean Corpuscular Hemoglobin 30.3 pg (27.0-33.0); Mean Corpuscular Volume 91.8 fL (80.0-98.0); Mean Platelet Volume 9.5 fL (9.4-12.3); Monocytes Absolute Auto 0.5 X10*3/uL (0.1-1.2); Monocytes Percent Auto 4.8 % (2-11); Neutrophils Absolute Auto 6.9 x10*3/uL (2.0-8.3); Neutrophils Percent Auto 63.2 % (45-73); Platelet Count 236 X10*3/uL (160-400); Red Blood Count 4.29 X10*6/uL (4.20-5.50); Red Cell Distribution Width 13.2 % (11.0-16.0); White Blood Count 10.9 X10*3/uL (4.8-10.8)
[2021-09-08] MEDS: 0.9 % Sodium Chloride 500 ML 999 ML IV (01:25)
[2021-09-08 01:40] LABS: Alanine Aminotransferase 20 U/L (0-31); Albumin Level 4.1 g/dL (3.5-5.0); Alkaline Phosphatase 69 U/L (39-117); Anion Gap 13 (12-20); Aspartate Amino Transferase 14 U/L (5-31); Bilirubin Direct 0.2 mg/dL (0.0-0.5); Bilirubin Total 0.6 mg/dL (0.0-1.0); Blood Urea Nitrogen 9 mg/dL (9-16); Calcium 9.1 mg/dL (8.4-10.2); Carbon Dioxide 26 mmol/L (22-29); Chloride 104 mmol/L (96-108); Creatinine Clr Calc Pharmacy 149.3; Estimated Glomerular Filt Rate > 60; Glucose Random 110 mg/dL (60-115); Potassium 3.8 mmol/L (3.3-5.1); Sodium 139 mmol/L (135-145); Total Protein 6.7 g/dL (6.5-8.0)
[2021-09-08] MEDS: Magnesium Hydrox/Alum Hydrox 30 ML ORAL.SUSP PO (01:46)
[2021-09-08] MEDS: Lidocaine HCl Viscous 2 % 15 ML SOLUTION MUCOUS MEM (01:46)
[2021-09-08] MEDS: Pantoprazole Sodium 40 MG/10 ML VIAL IVPUSH (01:46)
[2021-09-08] MEDS: PHENobarb/Hyoscy/Atropine/Scop 10 ML ELIXIR PO (01:46)
== END 2021-09-08 03:14 | disposition home or self-care (01) ==
PROVIDERS: Emergency Provider Emergency Medicine; PCP Internal Medicine
DX: R10.84 Generalized abdominal pain (principal); I10 Essential (primary) hypertension; E11.9 Type 2 diabetes mellitus without complications; E78.5 Hyperlipidemia, unspecified; Z79.02 Long term (current) use of antithrombotics/antiplatelets; Z79.4 Long term (current) use of insulin
CPT/HCPCS: 36415; 74176; 80048; 80076; 81003; 85025; 93005; 96374; 99284

== ENCOUNTER 2021-09-21 11:40 | Outpatient (REF) | payer MEDICARE, MEDICAID, SELFPAY ==
[2021-09-21 12:36] LABS: Neutrophils Absolute Auto 5.1 x10*3/uL (2.0-8.3)
== END 2021-09-21 11:41 | disposition home or self-care (01) ==
LOC: HO.LABR 11:40
PROVIDERS: PCP Internal Medicine; Visit Provider Psychiatry & Neurology Psychiatry
DX: Z79.899 Other long term (current) drug therapy (principal)
CPT/HCPCS: 36415; 85048

== ENCOUNTER 2021-09-25 10:00 | Outpatient (RCR) | payer MEDICARE, MEDICAID, SELFPAY ==
[2021-08-15 11:07] VITALS: BP 132/87; PULSE 83
== END 2021-10-18 13:55 | disposition home or self-care (01) ==
LOC: HO.PT 10:00
PROVIDERS: PCP Internal Medicine; Visit Provider Internal Medicine
DX: M62.830 Muscle spasm of back (principal)
CPT/HCPCS: 97014; 97110; 97140; 97161; 97530

== ENCOUNTER 2021-09-27 11:51 | Emergency (ER) | payer MEDICARE, MEDICAID, SELFPAY ==
--- NOTE | ~2021-09-27 | CT_ITS ---
EXAMINATION: CT HEAD WITHOUT CONTRAST CLINICAL INFORMATION: Severe headache. COMPARISON: Head CT dated 09/08/2019. TECHNIQUE: Contiguous axial imaging was performed from the skull base to vertex without intravenous administration of contrast. This CT examination was performed using dose optimization techniques as appropriate, variously including the following: *Automated exposure control *Adjustment of mA and/or kV according to patient size (this includes techniques or standardized protocols for targeted exams where dose is matched to indication/reason for exam; i.e. extremities or head) *Use of iterative reconstruction technique DLP: 883 mGy-cm FINDINGS: There is no evidence of acute intracranial hemorrhage or territorial infarction. No abnormal mass effect or midline shift is seen. Rossi to white matter differentiation is well preserved. No extra-axial fluid collections are identified. The ventricles are normal in size. There is no abnormal attenuation within the brain parenchyma. The osseous structures and soft tissues are normal. The mastoid air cells and visualized portions of the paranasal sinuses are well aerated. CT/CT head/brain wo con IMPRESSION: No acute intracranial pathology.
[2021-09-27 11:52] VITALS: BP 162/98; PULSE 89; RESP 16; TEMP 36.6; O2SAT 97; BMI 50.5
[2021-09-27 12:00] LABS: Glucose, Whole Blood 135 mg/dL (60-115)
[2021-09-27 13:45] LABS: MANUAL DIFF FLAG NO
[2021-09-27 13:47] LABS: Basophils Percent Auto 0.5 % (0-2); Eosinophils Absolute Auto 0.1 X10*3/uL (0.0-0.4); Eosinophils Percent Auto 0.8 % (0-4); Hematocrit 40.8 % (37.0-47.0); Hemoglobin 13.4 g/dl (12.0-16.0); Imm Gran Abs Auto 0.02 X10*3/uL (0.00-0.03); Imm Gran Pct Auto 0.3 % (0.0-0.4); Lymphocytes Absolute Auto 2.4 X10*3/uL (1.2-4.9); Lymphocytes Percent Auto 30.3 % (20-40); Mean Corpuscular HGB Conc 32.8 g/dl (31.0-35.0); Mean Corpuscular Hemoglobin 30.1 pg (27.0-33.0); Mean Corpuscular Volume 91.7 fL (80.0-98.0); Mean Platelet Volume 9.6 fL (9.4-12.3); Monocytes Absolute Auto 0.3 X10*3/uL (0.1-1.2); Monocytes Percent Auto 4.3 % (2-11); Neutrophils Absolute Auto 5.1 x10*3/uL (2.0-8.3); Neutrophils Percent Auto 63.8 % (45-73); Platelet Count 269 X10*3/uL (160-400); Red Blood Count 4.45 X10*6/uL (4.20-5.50)
[2021-09-27 14:05] LABS: Alanine Aminotransferase 21 U/L (0-31); Albumin Level 4.4 g/dL (3.5-5.0); Alkaline Phosphatase 81 U/L (39-117); Anion Gap 11 (12-20); Aspartate Amino Transferase 15 U/L (5-31); Bilirubin Total 0.5 mg/dL (0.0-1.0); Blood Urea Nitrogen 10 mg/dL (9-16); Calcium 9.5 mg/dL (8.4-10.2); Carbon Dioxide 29 mmol/L (22-29); Chloride 107 mmol/L (96-108); Creatinine Clr Calc Pharmacy 147.2; Estimated Glomerular Filt Rate > 60; Glucose Random 97 mg/dL (60-115); Potassium 4.2 mmol/L (3.3-5.1); Sodium 143 mmol/L (135-145); Total Protein 7.2 g/dL (6.5-8.0)
[2021-09-27 15:15] VITALS: BP 132/82; PULSE 83; RESP 16; TEMP 36.6; O2SAT 97
--- NOTE | 2021-09-27 15:18 | ED_ITS ---
HPI - Headache General Chief Complaint: Headache Stated Complaint: Headache/high blood sugar Time Seen by Provider: 09/27/21 14:56 Source: patient Mode of arrival: ambulatory Limitations: no limitations History of Present Illness HPI Narrative: 46 y/o female with history of morbid obesity, JILLIAN on CPAP, HTN, DM2 not on insulin, HLD, hx migraines in the past who presents to the ER with worsening headache since last night. She also reports generalized weakness and fatigue. She reports the headache started very mild last night and she was tossing and turning all night but cannot say why. She woke up this morning with an ongoing mild headache. She checked her sugar and it was 270. went to her OBGYN for her annual appointment and her headache started to worsen. She states she feels awful. Headache is behind both eyes and throbbing. No vision changes, weakness, numbness. No chest pain, SOB, fever, chills, N/V/D, abdominal pain. She said her headache is worse than her previous migraines but she has not had a migraine in a very long time. MD elicited complaint: headache Pertinent past history: migraines Onset (ago): day(s) (1) Onset description: gradually Location: retro-orbital Severity: severe Quality & Timing: aching and throbbing Exacerbating factors: none Relieving factors: nothing Associated symptoms: photophobia, sensitivity to sound and eye pain Treatments prior to arrival: none Related Data Home Medications Medication Instructions Recorded Confirmed atorvastatin 20 mg tablet (Lipitor) 20 mg PO DAILY 11/22/20 clonazepam 1 mg tablet 1 mg PO TID PRN 11/22/20 clozapine 100 mg tablet 50 mg PO BID 11/22/20 clozapine 50 mg tablet 50 mg PO DAILY tab 11/22/20 linaclotide 145 mcg capsule 145 mcg PO DAILY 11/22/20 (Linzess) lisinopril 40 mg tablet 40 mg PO DAILY 11/22/20 metoprolol succinate 50 mg 50 mg PO DAILY 11/22/20 tablet,extended release 24 hr pantoprazole 40 mg tablet,delayed 40 mg PO DAILY 11/22/20 release dulaglutide 0.75 mg/0.5 mL 0.75 mg SUBCUT QWEEK 06/19/21 subcutaneous pen injector (Trulicity) mirabegron 50 mg tablet,extended 1 tab PO DAILY 06/19/21 release 24 hr (Myrbetriq) Previous Rx's Medication Instructions Recorded naproxen 500 mg tablet 500 mg PO BID PRN #20 tab 06/08/20 ondansetron HCl 4 mg tablet 4 mg PO Q8H PRN #10 tab 08/20/20 (Zofran) oxycodone 5 mg tablet 5 mg PO Q6H PRN #20 tab 07/23/21 ihpletvlry-wuaucen-xhnjomcq 50 1 cap PO Q6H PRN #10 cap 09/27/21 mg-325 mg-40 mg capsule Allergies Allergy/AdvReac Type Severity Reaction Status Date / Time Penicillins Allergy Severe ANAPHYLAXIS Verified 06/13/21 14:29 [PENICILLINS] adhesive [ADHESIVE] Allergy Unknown RASH Verified 06/13/21 14:29 artichoke [ARTICHOKE] Allergy Unknown RASH Verified 06/13/21 14:29 carbamazepine [From Allergy Unknown MIGRAINES Verified 06/13/21 14:29 TEGRETOL] cariprazine [From Allergy Unknown LEG CRAMPS Verified 06/13/21 14:29 VRAYLAR] fentanyl [FENTANYL] Allergy Unknown RASH Verified 06/13/21 14:29 lamotrigine [From Allergy Unknown RASH Verified 06/13/21 14:29 LAMICTAL] lithium [LITHIUM] AdvReac Severe tremor and Verified 06/13/21 14:29 falls Review of Systems Verdana 4l Review of Systems: Verdana 4d Verdana 4d Constitutional: No Fever, No Chills ENT/Mouth: No sore throat, No Rhinorrhea, No Swallowing Difficulty Eyes: + Eye Pain, No Swelling, No Redness Cardiovascular: No Chest Pain, No SOB, No Orthopnea, No Edema Respiratory: No Cough, No SputumSputum, No Wheezing, No dyspnea Gastrointestinal: No Nausea, No Vomiting, No Diarrhea, No abdominal Pain Genitourinary: No Dysuria, No Urinary Frequency, No Hematuria Musculoskeletal: No joint pain, No Myalgias Skin: No Skin Lesions, No rash Neuro: + Weakness, No Numbness, No Dizziness, + Headache Psych: No Anxiety/Panic, No Depression Heme/Lymph: No Bruising, No Lymphadenopathy Endocrine: No Polyuria, No Polydipsia PMFSH Past Medical History Medical History Anxiety Bipolar disease, chronic Depression GERD (gastroesophageal reflux disease) High cholesterol Hypertension Migraines Morbid obesity with BMI of 45.0-49.9, adult Obstructive sleep apnea PCOS (polycystic ovarian syndrome) Pre-diabetes Renal colic Thrombosed external hemorrhoid Surgical History History of dilation and curettage Family History Family History Other Breast cancer Social History Social History Alcohol intake: never Patient Tobacco Use Status: Never used Tobacco Substance Use Type: Marijuana Advance Directives: No Advance Directives Information Provided: Yes Patient : No Physical Exam Verdana 4l Vital Signs: Verdana 4d Verdana 4d Vital Signs: Verdana 4d Verdana 4Bd Last Vital Signs Verdana 4d Gravity Meter Observer New 4d Gravity Meter Observer New 4d Temp 97.8 F 09/27/21 15:15 Gravity Meter Observer New 4d Pulse 83 09/27/21 15:15 Gravity Meter Observer New 4d Resp 16 09/27/21 15:15 BP 132/82 09/27/21 15:15 Pulse Ox 97 09/27/21 15:15 BMI result Body Mass Index 50.5 Appearance: Alert. Oriented X3. No acute distress. Eyes: Pupils equal, round and reactive to light. EOMI, no nystagmus ENT: Pharynx normal. Neck: Normal inspection. Neck supple. CVS: Normal heart rate and rhythm. Pulses normal. Respiratory: No respiratory distress. Breath sounds normal. Abdomen: morbidly obese, soft and nontender. +BS x4 Skin: Skin warm and dry. Normal skin color. Normal skin turgor. No rashes. Extremities: No lower extremity edema. No calf tenderness. Neuro: Oriented X 3. No motor deficit. No sensory deficit. Course Course Course Narrative: 46 y/o female morbid obesity, JILLIAN on CPAP, HTN, DM2 not on insulin, HLD, hx migraines who presents with headache, fatigue, and generalized weakness. Nonfocal neuro exam. Slightly hypertensive on arrival 160/90, afebrile, HR 80s. Metabolic workup is unremarkable. Will get CT head and treat for migraine with IV reglan, IV benadryl and IV toradol combination and reassess. Will also check COVID and flu swabs. Reevaluation(s) Reevaluation #1: CT head negative. Patient is feeling better after meds. Reevaluation #2: UA negative. Feeling better and would like to be discharged home. BP improved without intervention. Stable for d/c home with treatment for headache/migraine and follow up with her PCP. Patient agrees with plan. MDM - Headache Lab Data Result diagrams: 09/27/21 13:39 09/27/21 13:39 Labs: Lab Results 09/27/21 09/27/21 09/27/21 Range/Units 11:56 13:39 13:39 WBC 8.0 (4.8-10.8) X10*3/uL RBC 4.45 (4.20-5.50) X10*6/uL Hgb 13.4 (12.0-16.0) g/dl Hct 40.8 (37.0-47.0) % MCV 91.7 (80.0-98.0) fL MCH 30.1 (27.0-33.0) pg MCHC 32.8 (31.0-35.0) g/dl RDW 13.0 (11.0-16.0) % Plt Count 269 (160-400) X10*3/uL MPV 9.6 (9.4-12.3) fL Immature Gran % (Auto) 0.3 (0.0-0.4) % Neut % (Auto) 63.8 (45-73) % Lymph % (Auto) 30.3 (20-40) % Colbert % (Auto) 4.3 (2-11) % Eos % (Auto) 0.8 (0-4) % Baso % (Auto) 0.5 (0-2) % Lymph # (Auto) 2.4 (1.2-4.9) X10*3/uL Colbert # (Auto) 0.3 (0.1-1.2) X10*3/uL Eos # (Auto) 0.1 (0.0-0.4) X10*3/uL Baso # (Auto) 0.0 (0.0-0.2) X10*3/uL Abs Immat Gran (auto) 0.02 (0.00-0.03) X10*3/uL Absolute Neuts (auto) 5.1 (2.0-8.3) x10*3/uL Absolute Nucleated RBC 0.000 (0.0-0.012) X10*3/uL Nucleated RBC % (auto) 0.0 (0.0-0.2) /100WBC Sodium 143 (135-145) mmol/L Potassium 4.2 (3.3-5.1) mmol/L Chloride 107 (96-108) mmol/L Carbon Dioxide 29 (22-29) mmol/L Anion Gap 11 L (12-20) BUN 10 (9-16) mg/dL Creatinine 0.72 (0.5-1.4) mg/dL Estim Creat Clear Calc 147.2 Estimated GFR > 60 POC Glucose 135 H (60-115) mg/dL Random Glucose 97 (60-115) mg/dL Calcium 9.5 (8.4-10.2) mg/dL Total Bilirubin 0.5 (0.0-1.0) mg/dL AST 15 (5-31) U/L ALT 21 (0-31) U/L Alkaline Phosphatase 81 (39-117) U/L Total Protein 7.2 (6.5-8.0) g/dL Albumin 4.4 (3.5-5.0) g/dL Urine Color Urine Appearance Urine pH (5.0-8.0) Ur Specific Alton (1.005-1.025) Urine Protein (NEG-TRACE) MG/DL Urine Glucose (UA) (NEG) MG/DL Urine Ketones (NEG) MG/DL Urine Blood (NEG) Urine Nitrite (NEG) Ur Leukocyte Esterase (NEG) Urine Opiates Screen (Not Detect) Urine Fentanyl Screen (Not Detect) Ur Barbiturates Screen (Not Detect) Ur Phencyclidine Scrn (Not Detect) Ur Amphetamines Screen (Not Detect) U Benzodiazepines Scrn (Not Detect) Urine Cocaine Screen (Not Detect) U Marijuana (THC) Screen (Not Detect) COVID-19 (ANA) (Negative) COVID-19 Clin Com Influenza Type A (PADMINI) (Negative) Influenza Type B (PADMINI) (Negative) Influenza A & B Note 09/27/21 09/27/21 09/27/21 Range/Units 15:22 15:22 15:54 WBC (4.8-10.8) X10*3/uL RBC (4.20-5.50) X10*6/uL Hgb (12.0-16.0) g/dl Hct (37.0-47.0) % MCV (80.0-98.0) fL MCH (27.0-33.0) pg MCHC (31.0-35.0) g/dl RDW (11.0-16.0) % Plt Count (160-400) X10*3/uL MPV (9.4-12.3) fL Immature Gran % (Auto) (0.0-0.4) % Neut % (Auto) (45-73) % Lymph % (Auto) (20-40) % Colbert % (Auto) (2-11) % Eos % (Auto) (0-4) % Baso % (Auto) (0-2) % Lymph # (Auto) (1.2-4.9) X10*3/uL Colbert # (Auto) (0.1-1.2) X10*3/uL Eos # (Auto) (0.0-0.4) X10*3/uL Baso # (Auto) (0.0-0.2) X10*3/uL Abs Immat Gran (auto) (0.00-0.03) X10*3/uL Absolute Neuts (auto) (2.0-8.3) x10*3/uL Absolute Nucleated RBC (0.0-0.012) X10*3/uL Nucleated RBC % (auto) (0.0-0.2) /100WBC Sodium (135-145) mmol/L Potassium (3.3-5.1) mmol/L Chloride (96-108) mmol/L Carbon Dioxide (22-29) mmol/L Anion Gap (12-20) BUN (9-16) mg/dL Creatinine (0.5-1.4) mg/dL Estim Creat Clear Calc Estimated GFR POC Glucose (60-115) mg/dL Random Glucose (60-115) mg/dL Calcium (8.4-10.2) mg/dL Total Bilirubin (0.0-1.0) mg/dL AST (5-31) U/L ALT (0-31) U/L Alkaline Phosphatase (39-117) U/L Total Protein (6.5-8.0) g/dL Albumin (3.5-5.0) g/dL Urine Color YELLOW Urine Appearance CLEAR Urine pH 6.0 (5.0-8.0) Ur Specific Alton <= 1.005 (1.005-1.025) Urine Protein NEG (NEG-TRACE) MG/DL Urine Glucose (UA) NEG (NEG) MG/DL Urine Ketones NEG (NEG) MG/DL Urine Blood NEG (NEG) Urine Nitrite NEG (NEG) Ur Leukocyte Esterase NEG (NEG) Urine Opiates Screen (Not Detect) Urine Fentanyl Screen (Not Detect) Ur Barbiturates Screen (Not Detect) Ur Phencyclidine Scrn (Not Detect) Ur Amphetamines Screen (Not Detect) U Benzodiazepines Scrn (Not Detect) Urine Cocaine Screen (Not Detect) U Marijuana (THC) (Not Detect) Screen COVID-19 (ANA) Negative (Negative) COVID-19 Clin Com See Note Influenza Type A (PADMINI) Negative (Negative) Influenza Type B (PADMINI) Negative (Negative) Influenza A & B Note See Note 09/27/21 09/27/21 Range/Units 15:54 16:07 WBC (4.8-10.8) X10*3/uL RBC (4.20-5.50) X10*6/uL Hgb (12.0-16.0) g/dl Hct (37.0-47.0) % MCV (80.0-98.0) fL MCH (27.0-33.0) pg MCHC (31.0-35.0) g/dl RDW (11.0-16.0) % Plt Count (160-400) X10*3/uL MPV (9.4-12.3) fL Immature Gran % (Auto) (0.0-0.4) % Neut % (Auto) (45-73) % Lymph % (Auto) (20-40) % Colbert % (Auto) (2-11) % Eos % (Auto) (0-4) % Baso % (Auto) (0-2) % Lymph # (Auto) (1.2-4.9) X10*3/uL Colbert # (Auto) (0.1-1.2) X10*3/uL Eos # (Auto) (0.0-0.4) X10*3/uL Baso # (Auto) (0.0-0.2) X10*3/uL Abs Immat Gran (auto) (0.00-0.03) X10*3/uL Absolute Neuts (auto) (2.0-8.3) x10*3/uL Absolute Nucleated RBC (0.0-0.012) X10*3/uL Nucleated RBC % (auto) (0.0-0.2) /100WBC Sodium (135-145) mmol/L Potassium (3.3-5.1) mmol/L Chloride (96-108) mmol/L Carbon Dioxide (22-29) mmol/L Anion Gap (12-20) BUN (9-16) mg/dL Creatinine (0.5-1.4) mg/dL Estim Creat Clear Calc Estimated GFR POC Glucose 74 (60-115) mg/dL Random Glucose (60-115) mg/dL Calcium (8.4-10.2) mg/dL Total Bilirubin (0.0-1.0) mg/dL AST (5-31) U/L ALT (0-31) U/L Alkaline Phosphatase (39-117) U/L Total Protein (6.5-8.0) g/dL Albumin (3.5-5.0) g/dL Urine Color Urine Appearance Urine pH (5.0-8.0) Ur Specific [place] (1.005-1.025) Urine Protein (NEG-TRACE) MG/DL Urine Glucose (UA) (NEG) MG/DL Urine Ketones (NEG) MG/DL Urine Blood (NEG) Urine Nitrite (NEG) Ur Leukocyte Esterase (NEG) Urine Opiates Screen Not Detected (Not Detect) Urine Fentanyl Screen Not Detected (Not Detect) Ur Barbiturates Screen Not Detected (Not Detect) Ur Phencyclidine Scrn Not Detected (Not Detect) Ur Amphetamines Screen Not Detected (Not Detect) U Benzodiazepines Scrn Not Detected (Not Detect) Urine Cocaine Screen Not Detected (Not Detect) U Marijuana (THC) Screen POSITIVE H (Not Detect) COVID-19 (ANA) (Negative) COVID-19 Clin Com Influenza Type A (PADMINI) (Negative) Influenza Type B (PADMINI) (Negative) Influenza A & B Note Critical Care Time Critical Care Time Critical Care Time: No Discharge Plan Discharge Clinical Impression: Migraine Patient Disposition: Home, Self-Care Instructions: Migraine Headache (ED) Additional Instructions: Your workup today was unremarkable. Rest and stay hydrated. Monitor your glucose 3-4 times per day at home and keep a record for your doctor. Take the prescribed medication as needed for headaches. Follow up wiht your doctor this week. If you develop new or worsening symptoms call 911 or come back to the ER for further evaluation. Prescriptions: New rwoilovaoc-yuyvetu-sxjqdqta 50-325-40 mg capsule 1 cap PO Q6H PRN (Reason: pain) Qty: 10 0RF No Action naproxen 500 mg tablet 500 mg PO BID PRN (Reason: pain) Qty: 20 0RF ondansetron HCl [Zofran] 4 mg tablet 4 mg PO Q8H PRN (Reason: nausea and vomiting) Qty: 10 0RF Myrbetriq 50 mg tablet extended release 24 hr 1 tab PO DAILY 0RF Trulicity 0.75 mg/0.5 mL pen injector 0.75 mg subcut QWEEK 0RF oxycodone 5 mg tablet 5 mg PO Q6H PRN (Reason: Pain (Scale Score 7-10)) Qty: 20 0RF metoprolol succinate 50 mg tablet extended release 24 hr 50 mg PO DAILY 0RF lisinopril 40 mg tablet 40 mg PO DAILY 0RF pantoprazole 40 mg tablet,delayed release (DR/EC) 40 mg PO DAILY 0RF Linzess 145 mcg capsule 145 mcg PO DAILY 0RF clozapine 100 mg tablet 50 mg PO BID 0RF clozapine 50 mg tablet 50 mg PO DAILY 0RF clonazepam 1 mg tablet 1 mg PO TID PRN (Reason: Anxiety) 0RF atorvastatin [Lipitor] 20 mg tablet 20 mg PO DAILY 0RF
[2021-09-27] MEDS: 0.9 % Sodium Chloride 1,000 ML 999 ML IVCONT (15:41)
[2021-09-27 15:45] LABS: IDNOW Serial# 55D5AD1C; Influenza A Negative (Negative); Influenza B2 Negative (Negative)
[2021-09-27 15:46] LABS: COVID-19 Test Negative (Negative)
[2021-09-27] MEDS: Ketorolac Tromethamine 30 MG/ML VIAL IVPUSH (15:47)
[2021-09-27] MEDS: diphenhydrAMINE HCL 50 MG/ML VIAL IVPUSH (15:47)
[2021-09-27] MEDS: Metoclopramide HCl 10 MG/2 ML VIAL IVPUSH (15:47)
[2021-09-27 16:01] LABS: Appearance Urine CLEAR; Color Urine YELLOW; Glucose Urine UA NEG (NEG); Leukocyte Esterase Urine NEG (NEG); Nitrite Urine NEG (NEG); Specific Gravity - Urine <= 1.005 (1.005-1.025); Urine Blood NEG (NEG); Urine Ketones NEG (NEG); Urine Protein NEG (NEG-TRACE)
[2021-09-27 16:10] LABS: Glucose, Whole Blood 74 mg/dL (60-115)
[2021-09-27 16:16] LABS: Amphetamine Screen Urine Not Detected (Not Detect); Barbiturates, Urine Not Detected (Not Detect); Benzodiazepines Screen Urine Not Detected (Not Detect); Cannabinoid Screen Urine POSITIVE (Not Detect); Cocaine Screen Urine Not Detected (Not Detect); Fentanyl, urine Not Detected (Not Detect); Opiate Screen Urine Not Detected (Not Detect); Phencyclidine Screen Urine Not Detected (Not Detect)
[2021-09-27 17:47] VITALS: BP 147/74; PULSE 82; RESP 16; O2SAT 100
== END 2021-09-27 17:49 | disposition home or self-care (01) ==
PROVIDERS: Physician Assistant; Emergency Provider Emergency Medicine Emergency Medical Services; PCP Internal Medicine
DX: F12.90 Cannabis use, unspecified, uncomplicated (principal); G43.909 Migraine, unspecified, not intractable, without status migrainosus; E11.9 Type 2 diabetes mellitus without complications; L56.8 Other specified acute skin changes due to ultraviolet radiation; Z20.822 Contact with and (suspected) exposure to COVID-19; Z79.899 Other long term (current) drug therapy
CPT/HCPCS: 36415; 70450; 80053; 80307; 81003; 82947; 85025; 87502; 87635; 96361; 96374; 96375; 99284; J1200; J1885; J2765

== ENCOUNTER 2021-10-12 15:25 | Emergency (ER) | payer MEDICARE, MEDICAID, SELFPAY ==
--- NOTE | ~2021-10-12 | XR_ITS ---
EXAMINATION: XR CHEST CLINICAL INFORMATION: Chest pain COMPARISON: Chest radiograph 06/13/2021, chest and RIBS 07/25/2021 TECHNIQUE: Frontal view of the chest was obtained. FINDINGS: No significant abnormality is noted involving the heart, lungs, mediastinum, bony thorax or soft tissues. XR/XR chest 1V IMPRESSION: Unremarkable examination.
[2021-10-12 15:30] VITALS: BP 138/95; PULSE 94; RESP 18; TEMP 36.9; O2SAT 97; BMI 50.5
--- NOTE | 2021-10-12 15:34 | ECG_ITS ---
Test Reason : CHEST PAIN Blood Pressure : / mmHG Vent. Rate : 088 BPM Atrial Rate : 088 BPM P-R Int : 198 ms QRS Dur : 084 ms QT Int : 370 ms P-R-T Axes : 040 016 045 degrees QTc Int : 447 ms Normal sinus rhythm Minimal voltage criteria for LVH, may be normal variant ( R in aVL ) Borderline ECG When compared with ECG of 07-SEP-2021 15:33, No significant change was found Referred By: Generic ED Physician Electronically Signed By:MAGGIE MONTOYA MD
[2021-10-12 15:55] LABS: MANUAL DIFF FLAG NO
[2021-10-12 16:01] LABS: Basophils Percent Auto 0.4 % (0-2); Eosinophils Absolute Auto 0.1 X10*3/uL (0.0-0.4); Eosinophils Percent Auto 0.9 % (0-4); Hematocrit 39.3 % (37.0-47.0); Imm Gran Abs Auto 0.02 X10*3/uL (0.00-0.03); Imm Gran Pct Auto 0.2 % (0.0-0.4); Lymphocytes Absolute Auto 2.6 X10*3/uL (1.2-4.9); Lymphocytes Percent Auto 28.6 % (20-40); Mean Corpuscular HGB Conc 33.1 g/dl (31.0-35.0); Mean Corpuscular Hemoglobin 29.9 pg (27.0-33.0); Mean Corpuscular Volume 90.3 fL (80.0-98.0); Monocytes Absolute Auto 0.5 X10*3/uL (0.1-1.2); Monocytes Percent Auto 5.2 % (2-11); Neutrophils Absolute Auto 5.9 x10*3/uL (2.0-8.3); Neutrophils Percent Auto 64.7 % (45-73); Platelet Count 243 X10*3/uL (160-400); Red Blood Count 4.35 X10*6/uL (4.20-5.50); Red Cell Distribution Width 12.7 % (11.0-16.0); White Blood Count 9.1 X10*3/uL (4.8-10.8)
[2021-10-12 16:11] LABS: Anion Gap 11 (12-20); Blood Urea Nitrogen 10 mg/dL (9-16); Calcium 9.1 mg/dL (8.4-10.2); Carbon Dioxide 26 mmol/L (22-29); Chloride 107 mmol/L (96-108); Creatinine Clr Calc Pharmacy 153.7; Estimated Glomerular Filt Rate > 60; Glucose Random 139 mg/dL (60-115); Potassium 3.9 mmol/L (3.3-5.1); Sodium 140 mmol/L (135-145)
[2021-10-12 16:15] LABS: COVID-19 Test Negative (Negative)
[2021-10-12 16:19] LABS: Troponin-I High Sensitivity < 3.5 ng/L (<3.5-17.0)
--- NOTE | 2021-10-12 19:45 | ED.CHESTPAIN ---
HPI - Chest Pain General Chief Complaint: Chest Pain Stated Complaint: cp Time Seen by Provider: 10/12/21 19:44 Source: patient and old records reviewed Mode of arrival: ambulatory Limitations: no limitations History of Present Illness HPI narrative: 3 doses of clindamycin for parotid gland infections by PCP complaint: chest pain Pertinent past history: other (frequent visits for chest pain) Onset (ago): week(s) (1) Timing of current episode: constant Prior episodes: Yes Onset: during rest Pain location: substernal Pain radiation: none Severity: moderate Quality: aching Relieving factors: nothing Exacerbating factors: palpation and movement Context: recent illness (has cough, sore throat, body aches, swollen glands, vaccinated x 2, no sick contacts) Associated symptoms: other (sore throat, cough) Treatment prior to arrival: other (clindamycin 300mg only 3 doses) Related Data Home Medications Medication Instructions Recorded Confirmed atorvastatin 20 mg tablet (Lipitor) 20 mg PO DAILY 11/22/20 clonazepam 1 mg tablet 1 mg PO TID PRN 11/22/20 clozapine 100 mg tablet 50 mg PO BID 11/22/20 clozapine 50 mg tablet 50 mg PO DAILY tab 11/22/20 linaclotide 145 mcg capsule 145 mcg PO DAILY 11/22/20 (Linzess) lisinopril 40 mg tablet 40 mg PO DAILY 11/22/20 metoprolol succinate 50 mg 50 mg PO DAILY 11/22/20 tablet,extended release 24 hr pantoprazole 40 mg tablet,delayed 40 mg PO DAILY 11/22/20 release dulaglutide 0.75 mg/0.5 mL 0.75 mg SUBCUT QWEEK 06/19/21 subcutaneous pen injector (Trulicity) mirabegron 50 mg tablet,extended 1 tab PO DAILY 06/19/21 release 24 hr (Myrbetriq) Previous Rx's Medication Instructions Recorded naproxen 500 mg tablet 500 mg PO BID PRN #20 tab 06/08/20 ondansetron HCl 4 mg tablet 4 mg PO Q8H PRN #10 tab 08/20/20 (Zofran) oxycodone 5 mg tablet 5 mg PO Q6H PRN #20 tab 07/23/21 spyitpaqhv-fpoctxk-bsoqrgrh 50 1 cap PO Q6H PRN #10 cap 09/27/21 mg-325 mg-40 mg capsule Allergies Allergy/AdvReac Type Severity Reaction Status Date / Time Penicillins [PENICILLINS] Allergy Severe ANAPHYLAXIS Verified 10/12/21 15:30 adhesive [ADHESIVE] Allergy Unknown RASH Verified 10/12/21 15:30 artichoke [ARTICHOKE] Allergy Unknown RASH Verified 10/12/21 15:30 carbamazepine [From TEGRETOL] Allergy Unknown MIGRAINES Verified 10/12/21 15:30 cariprazine [From VRAYLAR] Allergy Unknown LEG CRAMPS Verified 10/12/21 15:30 fentanyl [FENTANYL] Allergy Unknown RASH Verified 10/12/21 15:30 lamotrigine [From LAMICTAL] Allergy Unknown RASH Verified 10/12/21 15:30 lithium [LITHIUM] AdvReac Severe tremor and Verified 10/12/21 15:30 falls Review of Systems Review of Systems: Constitutional : No Weight loss, No Fever, pos Chills ENT/Mouth : pos sore throat, pos Rhinorrhea Eyes: No Eye Pain, No Swelling Cardiovascular : pos Chest Pain, pos SOB, no Dyspnea on Exertion, No Orthopnea, No Edema, No Palpitations Respiratory : pos Cough, No Sputum Gastrointestinal : no Nausea, No Vomiting, No Diarrhea, No abdominal Pain, No Hematochezia, No Melena Genitourinary : No Dysuria, No Urinary Frequency Musculoskeletal : No joint pain, No Myalgias, No Joint Swelling Skin : No Skin Lesions, No rash Neuro : No Weakness, No Numbness, No Dizziness, No Headache Psych : No Anxiety/Panic, No Depression Heme/Lymph: No Bruising, pos Lymphadenopathy Endocrine : No Polyuria, No Polydipsia All other systems reviewed and are negative [facility] Past Medical History Attestation statement: The following information was validated with the patient. Medical History Anxiety Bipolar disease, chronic Depression GERD (gastroesophageal reflux disease) High cholesterol Hypertension Migraines Morbid obesity with BMI of 45.0-49.9, adult Obstructive sleep apnea PCOS (polycystic ovarian syndrome) Pre-diabetes Renal colic Thrombosed external hemorrhoid Surgical History History of dilation and curettage Family History Family History Other Breast cancer Social History Social History Alcohol intake: never Patient Tobacco Use Status: Never used Tobacco Substance Use Type: Marijuana Advance Directives: No Advance Directives Information Provided: Yes Patient : No Physical Exam Vital Signs: Vital Signs: Last Vital Signs Temp 98.4 F 10/12/21 15:30 Pulse 94 10/12/21 15:30 Resp 18 10/12/21 15:30 BP 138/95 H 10/12/21 15:30 Pulse Ox 97 10/12/21 15:30 BMI result Body Mass Index 50.5 Appearance: Alert. Oriented X3. No acute distress. Eyes: Pupils equal, round and reactive to light. ENT: Pharynx mild erythema but no edema or patches, has scratchy voice Neck: Normal inspection. Neck supple. CVS: Normal heart rate and rhythm. Pulses normal. Respiratory: No respiratory distress. Breath sounds normal. dry cough Abdomen: Soft and nontender. Skin: Skin warm and dry. Normal skin color. Normal skin turgor. Extremities: No lower extremity edema. No calf ttp Neuro: Oriented X 3. No motor deficit. No sensory deficit. MDM - Chest Pain MDM Narrative Medical decision making narrative: 46 yo female hx of HTN, HLD, DM here wtih chest pain x 1 week, she also c/o sore throat has laryngitis currently being treated for parotid gland infection ( I do not appreciate any signs of infection) did discuss need for probiotics with clindamycin. She has normal EKG and CXR, troponin with 1 week of symptoms. no hypoxia/tachycardia signs of DVT to suggest PE. likley viral syndrome - will given INH and DC home to complete antibiotic course, COVID swab negative. Doubt ACS given trop negative with 1 week of symptoms Lab Data Result diagrams: 10/12/21 15:50 10/12/21 15:50 Labs: Lab Results 10/12/21 10/12/21 10/12/21 Range/Units 15:45 15:50 15:50 WBC 9.1 (4.8-10.8) X10*3/uL RBC 4.35 (4.20-5.50) X10*6/uL Hgb 13.0 (12.0-16.0) g/dl Hct 39.3 (37.0-47.0) % MCV 90.3 (80.0-98.0) fL MCH 29.9 (27.0-33.0) pg MCHC 33.1 (31.0-35.0) g/dl RDW 12.7 (11.0-16.0) % Plt Count 243 (160-400) X10*3/uL MPV 10.0 (9.4-12.3) fL Immature Gran % (Auto) 0.2 (0.0-0.4) % Neut % (Auto) 64.7 (45-73) % Lymph % (Auto) 28.6 (20-40) % [place] % (Auto) 5.2 (2-11) % Eos % (Auto) 0.9 (0-4) % Baso % (Auto) 0.4 (0-2) % Lymph # (Auto) 2.6 (1.2-4.9) X10*3/uL [place] # (Auto) 0.5 (0.1-1.2) X10*3/uL Eos # (Auto) 0.1 (0.0-0.4) X10*3/uL Baso # (Auto) 0.0 (0.0-0.2) X10*3/uL Abs Immat Gran (auto) 0.02 (0.00-0.03) X10*3/uL Absolute Neuts (auto) 5.9 (2.0-8.3) x10*3/uL Absolute Nucleated RBC 0.000 (0.0-0.012) X10*3/uL Nucleated RBC % (auto) 0.0 (0.0-0.2) /100WBC Sodium 140 (135-145) mmol/L Potassium 3.9 (3.3-5.1) mmol/L Chloride 107 (96-108) mmol/L Carbon Dioxide 26 (22-29) mmol/L Anion Gap 11 L (12-20) BUN 10 (9-16) mg/dL Creatinine 0.69 (0.5-1.4) mg/dL Estim Creat Clear Calc 153.7 Estimated GFR > 60 Random Glucose 139 H (60-115) mg/dL Calcium 9.1 (8.4-10.2) mg/dL Troponin I High Sens (<3.5-17.0) ng/L COVID-19 (ANA) Negative (Negative) COVID-19 Clin Com See Note 10/12/21 Range/Units 15:50 WBC (4.8-10.8) X10*3/uL RBC (4.20-5.50) X10*6/uL Hgb (12.0-16.0) g/dl Hct (37.0-47.0) % MCV (80.0-98.0) fL MCH (27.0-33.0) pg MCHC (31.0-35.0) g/dl RDW (11.0-16.0) % Plt Count (160-400) X10*3/uL MPV (9.4-12.3) fL Immature Gran % (Auto) (0.0-0.4) % Neut % (Auto) (45-73) % Lymph % (Auto) (20-40) % [place] % (Auto) (2-11) % Eos % (Auto) (0-4) % Baso % (Auto) (0-2) % Lymph # (Auto) (1.2-4.9) X10*3/uL [place] # (Auto) (0.1-1.2) X10*3/uL Eos # (Auto) (0.0-0.4) X10*3/uL Baso # (Auto) (0.0-0.2) X10*3/uL Abs Immat Gran (auto) (0.00-0.03) X10*3/uL Absolute Neuts (auto) (2.0-8.3) x10*3/uL Absolute Nucleated RBC (0.0-0.012) X10*3/uL Nucleated RBC % (auto) (0.0-0.2) /100WBC Sodium (135-145) mmol/L Potassium (3.3-5.1) mmol/L Chloride (96-108) mmol/L Carbon Dioxide (22-29) mmol/L Anion Gap (12-20) BUN (9-16) mg/dL Creatinine (0.5-1.4) mg/dL Estim Creat Clear Calc Estimated GFR Random Glucose (60-115) mg/dL Calcium (8.4-10.2) mg/dL Troponin I High Sens < 3.5 (<3.5-17.0) ng/L COVID-19 (ANA) (Negative) COVID-19 Clin Com ECG Data ECG #1: Attestation: I personally reviewed and interpreted this ECG as follows: ECG interpretation date: 10/12/21 ECG interpretation time: 19:51 Interpretation: Rate: 88 Rhythm: NSR [place]: normal , LVH Normal P waves. Normal AILEEN. Normal QRS complex. ST T wave : normal no EDGARDO qTC: normal prior studies: no acute ischemia The study has been interpreted contemporaneously by me. . Discharge Plan Discharge Clinical Impression: Laryngitis, Atypical chest pain Patient Disposition: Home, Self-Care Instructions: Chest Pain (ED), Laryngitis (ED) Additional Instructions: return to ED for any worsening symptoms or concerns albuterol inhaler 2 puffs every 4 to 6 hours as needed for wheezing probiotics with antibiotics Prescriptions: No Action naproxen 500 mg tablet 500 mg PO BID PRN (Reason: pain) Qty: 20 0RF ondansetron HCl [Zofran] 4 mg tablet 4 mg PO Q8H PRN (Reason: nausea and vomiting) Qty: 10 0RF Myrbetriq 50 mg tablet extended release 24 hr 1 tab PO DAILY 0RF Trulicity 0.75 mg/0.5 mL pen injector 0.75 mg subcut QWEEK 0RF oxycodone 5 mg tablet 5 mg PO Q6H PRN (Reason: Pain (Scale Score 7-10)) Qty: 20 0RF yigywdafzb-wwixlwb-jdrqpdbn 50-325-40 mg capsule 1 cap PO Q6H PRN (Reason: pain) Qty: 10 0RF metoprolol succinate 50 mg tablet extended release 24 hr 50 mg PO DAILY 0RF lisinopril 40 mg tablet 40 mg PO DAILY 0RF pantoprazole 40 mg tablet,delayed release (DR/EC) 40 mg PO DAILY 0RF Linzess 145 mcg capsule 145 mcg PO DAILY 0RF clozapine 100 mg tablet 50 mg PO BID 0RF clozapine 50 mg tablet 50 mg PO DAILY 0RF clonazepam 1 mg tablet 1 mg PO TID PRN (Reason: Anxiety) 0RF atorvastatin [Lipitor] 20 mg tablet 20 mg PO DAILY 0RF Referrals: Ann-Marie Camacho MD [Primary Care Provider] - 2 days (if not better)
[2021-10-12] MEDS: Albuterol Sulfate 90 MCG 8 GM INHALER 2 PUFF INHALE (20:16)
== END 2021-10-12 20:22 | disposition home or self-care (01) ==
PROVIDERS: Emergency Provider Emergency Medicine; PCP Internal Medicine
DX: J04.0 Acute laryngitis (principal); R07.89 Other chest pain; M79.10 Myalgia, unspecified site; R05.9 Cough, unspecified; Z20.822 Contact with and (suspected) exposure to COVID-19; Z79.899 Other long term (current) drug therapy
CPT/HCPCS: 36415; 71045; 80048; 84484; 85025; 87635; 93005; 99283; 99284

== ENCOUNTER 2021-10-19 11:54 | Outpatient (REF) | payer MEDICARE, MEDICAID, SELFPAY ==
[2021-10-19 13:34] LABS: Neutrophils Absolute Auto 5.3 x10*3/uL (2.0-8.3); White Blood Count 8.4 X10*3/uL (4.8-10.8)
== END 2021-10-19 11:55 | disposition home or self-care (01) ==
LOC: HO.LABR 11:54
PROVIDERS: PCP Internal Medicine; Visit Provider Psychiatry & Neurology Psychiatry
DX: Z79.899 Other long term (current) drug therapy (principal)
CPT/HCPCS: 36415; 85048

== ENCOUNTER 2021-10-21 13:36 | Emergency (ER) | payer MEDICARE, MEDICAID, SELFPAY ==
[2021-10-21 14:12] VITALS: BP 143/79; PULSE 90; RESP 15; TEMP 36.9; O2SAT 98; BMI 50.5
== END 2021-10-21 16:01 | disposition left against medical advice (07) ==
PROVIDERS: Emergency Provider Emergency Medicine Emergency Medical Services; PCP Internal Medicine
DX: F41.9 Anxiety disorder, unspecified (principal)
CPT/HCPCS: 99281; 99282

== ENCOUNTER 2021-10-26 15:47 | Emergency (ER) | payer MEDICARE, MEDICAID, SELFPAY ==
[2021-10-26 15:56] VITALS: BP 141/80; PULSE 87; RESP 18; TEMP 36.8; O2SAT 98; BMI 50.5
--- NOTE | 2021-10-26 16:49 | ED.PSYCH ---
HPI - Psych General Chief Complaint: Psychiatric Symptoms Stated Complaint: crisis, hurts to breathe Time Seen by Provider: 10/26/21 16:49 Source: patient Mode of arrival: ambulatory Limitations: no limitations History of Present Illness HPI Narrative: 46-year-old female with a history of morbid obesity, JILLIAN on CPAP, HTN, dm 2 non-insulin, HLD, migraines and bipolar disorder on Clozaril who presents to the ER from home c/o increased anxiety, depression, and suicidal thoughts that started this week after the mri ct tech of her Clozaril change last week. She reports she has been stable on cause rule for the last year and a half and has not required inpatient psych admission. She reports since her cause oral manufacture change last week she has felt increased anxiety, difficulty focusing or concentrating, intermittent palpitations, difficulty sleeping, depression with thoughts about killing herself. She has a history of suicide attempts in the past. She has been thinking about stabbing herself in the stomach or jumping off of a bridge. He has been compliant with her clots overall and has been taking her clonazepam as well. She reports this is written to take twice a day with a 3rd dose as needed. She has needed the p.r.n. dose every day this week. She is worried about what is going to happen next. She reports no relief with the medicines. She called her therapist, psychiatrist and the pharmacy today with no answers which came to the ER for further evaluation. MD complaint: suicidal ideation, feels depressed and anxiety Onset (ago): week(s) (1) Duration: intermittent History of same: Yes Relieving factors: none Exacerbating factors: medication Context: significant life stressor Associated psychiatric symptoms: depression and suicidal ideation Associated symptoms: insomnia and other (Chest pain and palpitations) Treatments prior to arrival: none If self harm: admits thoughts of self harm and has plan Details of plan: Stab herself in the stomach or jump off a bridge Related Data Home Medications Medication Instructions Recorded Confirmed atorvastatin 20 mg tablet (Lipitor) 20 mg PO DAILY 11/22/20 clonazepam 1 mg tablet 1 mg PO TID PRN 11/22/20 clozapine 100 mg tablet 50 mg PO BID 11/22/20 clozapine 50 mg tablet 50 mg PO DAILY tab 11/22/20 linaclotide 145 mcg capsule 145 mcg PO DAILY 11/22/20 (Linzess) lisinopril 40 mg tablet 40 mg PO DAILY 11/22/20 metoprolol succinate 50 mg 50 mg PO DAILY 11/22/20 tablet,extended release 24 hr pantoprazole 40 mg tablet,delayed 40 mg PO DAILY 11/22/20 release dulaglutide 0.75 mg/0.5 mL 0.75 mg SUBCUT QWEEK 06/19/21 subcutaneous pen injector (Trulicity) mirabegron 50 mg tablet,extended 1 tab PO DAILY 06/19/21 release 24 hr (Myrbetriq) Previous Rx's Medication Instructions Recorded naproxen 500 mg tablet 500 mg PO BID PRN #20 tab 06/08/20 ondansetron HCl 4 mg tablet 4 mg PO Q8H PRN #10 tab 08/20/20 (Zofran) oxycodone 5 mg tablet 5 mg PO Q6H PRN #20 tab 07/23/21 ibuwcwovey-hubudge-jrjmjobs 50 1 cap PO Q6H PRN #10 cap 09/27/21 mg-325 mg-40 mg capsule Allergies Allergy/AdvReac Type Severity Reaction Status Date / Time Penicillins [PENICILLINS] Allergy Severe ANAPHYLAXIS Verified 10/26/21 15:55 adhesive [ADHESIVE] Allergy Unknown RASH Verified 10/26/21 15:55 artichoke [ARTICHOKE] Allergy Unknown RASH Verified 10/26/21 15:55 carbamazepine [From TEGRETOL] Allergy Unknown MIGRAINES Verified 10/26/21 15:55 cariprazine [From VRAYLAR] Allergy Unknown LEG CRAMPS Verified 10/26/21 15:55 fentanyl [FENTANYL] Allergy Unknown RASH Verified 10/26/21 15:55 lamotrigine [From LAMICTAL] Allergy Unknown RASH Verified 10/26/21 15:55 lithium [LITHIUM] AdvReac Severe tremor and Verified 10/26/21 15:55 falls Review of Systems Review of Systems: Constitutional: No Fever, No Chills ENT/Mouth: No sore throat, No Rhinorrhea, No Swallowing Difficulty Cardiovascular: No Chest Pain, No SOB, No Orthopnea, No Edema Respiratory: No Cough, No Sputum, No Wheezing, No dyspnea Gastrointestinal: No Nausea, No Vomiting, No Diarrhea, No abdominal Pain, No Hematochezia, No Melena Genitourinary: No Dysuria, No Urinary Frequency, No Hematuria Musculoskeletal: No joint pain, No Myalgias Skin: No Skin Lesions, No rash Neuro: No Weakness, No Numbness, No Dizziness, No Headache Psych: + Anxiety/Panic, + Depression, +SI, No HI, No delusions, No AH/VH Heme/Lymph: No Bruising, No Lymphadenopathy Endocrine: No Polyuria, No Polydipsia PMF Past Medical History Medical History Anxiety Bipolar disease, chronic Depression GERD (gastroesophageal reflux disease) High cholesterol Hypertension Migraines Morbid obesity with BMI of 45.0-49.9, adult Obstructive sleep apnea PCOS (polycystic ovarian syndrome) Pre-diabetes Renal colic Thrombosed external hemorrhoid Surgical History History of dilation and curettage Family History Family History Other Breast cancer Social History Social History Alcohol intake: never Patient Tobacco Use Status: Never used Tobacco Use of substances other than those prescribed or required for medical reasons: Yes Substance Use Type: Marijuana Advance Directives: No Advance Directives Information Provided: No Healthcare Proxy: No Guardian: No Physical Exam Vital Signs: Vital Signs: Last Vital Signs Temp 97 F 10/26/21 18:08 Pulse 77 10/26/21 18:08 Resp 18 10/26/21 18:08 BP 127/69 10/26/21 18:08 Pulse Ox 97 10/26/21 18:08 BMI result Body Mass Index 50.5 Appearance: Alert. Oriented X3. No acute distress. Eyes: Pupils equal, round and reactive to light. ENT: Pharynx normal. Neck: Normal inspection. Neck supple. CVS: Normal heart rate and rhythm. Pulses normal. Respiratory: No respiratory distress. Breath sounds normal. Abdomen: Obese, Soft and nontender. +BS x4 Skin: Skin warm and dry. Normal skin color. Normal skin turgor. No rashes. Extremities: No lower extremity edema. Neuro/psych: Oriented X 3. No motor deficit. No sensory deficit. Makes eye contact, appropriate. Normal affect. Good insight. Good judgment. No hallucinations or delusions. +SI Course Course Course Narrative: 46-year-old female with a history of bipolar disorder on Clozaril for the last 1.5 years presents to the ER with worsening anxiety, depression and suicidal thoughts in the last week with the change in her manufacture of Clozaril. She attributes the change in the manufacture to her changes in mood. She has been taking extra clonazepam without any improvement. She admits to a suicidal plan with plan to stab herself in the stomach. She reports a history of drug overdoses in the past an attempt to end her life but it has been several years and she has been ?stable. ? She also reports intermittent chest pains and palpitations. Will get medical workup and have the care team evaluate her. Reevaluation(s) Reevaluation #1: Lab workup was unremarkable. Troponin is negative. She was given a dose of oral Ativan with improvement in her anxiety. Care team to evaluate her. Physician observation started at 18:52. Patient placed in physician observation because patient is awaiting [facility] evaluation for the possible need of inpatient psych admission. At the time observation was started patient's vital signs were stable. Patient is alert and oriented. Neuro exam is non-focal. CV: RRR and lungs are clear. Will continue to monitor. Reevaluation #2: Patient seen and evaluated by the care team. She is stable for discharge home. She is no longer suicidal. She admits her anxiety is related to her Clozaril and she is able to start back on the old mri ct tech Clozaril starting tomorrow. [facility] - Psych Lab Data Result diagrams: 10/26/21 17:57 10/26/21 17:57 Labs: Lab Results 10/26/21 10/26/21 10/26/21 Range/Units 17:21 17:57 17:57 WBC 10.9 H (4.8-10.8) X10*3/uL RBC 4.41 (4.20-5.50) X10*6/uL Hgb 13.3 (12.0-16.0) g/dl Hct 40.3 (37.0-47.0) % MCV 91.4 (80.0-98.0) fL MCH 30.2 (27.0-33.0) pg MCHC 33.0 (31.0-35.0) g/dl RDW 12.8 (11.0-16.0) % Plt Count 278 (160-400) X10*3/uL MPV 9.7 (9.4-12.3) fL Immature Gran % (Auto) 0.3 (0.0-0.4) % Neut % (Auto) 61.4 (45-73) % Lymph % (Auto) 30.7 (20-40) % [place] % (Auto) 6.0 (2-11) % Eos % (Auto) 1.2 (0-4) % Baso % (Auto) 0.4 (0-2) % Lymph # (Auto) 3.3 (1.2-4.9) X10*3/uL [place] # (Auto) 0.7 (0.1-1.2) X10*3/uL Eos # (Auto) 0.1 (0.0-0.4) X10*3/uL Baso # (Auto) 0.0 (0.0-0.2) X10*3/uL Abs Immat Gran (auto) 0.03 (0.00-0.03) X10*3/uL Absolute Neuts (auto) 6.7 (2.0-8.3) x10*3/uL Absolute Nucleated RBC 0.000 (0.0-0.012) X10*3/uL Nucleated RBC % (auto) 0.0 (0.0-0.2) /100WBC Sodium 141 (135-145) mmol/L Potassium 4.3 (3.3-5.1) mmol/L Chloride 106 (96-108) mmol/L Carbon Dioxide 27 (22-29) mmol/L Anion Gap 12 (12-20) BUN 9 (9-16) mg/dL Creatinine 0.72 (0.5-1.4) mg/dL Estim Creat Clear Calc 147.2 Estimated GFR > 60 Random Glucose 110 (60-115) mg/dL Calcium 9.2 (8.4-10.2) mg/dL Total Bilirubin 0.3 (0.0-1.0) mg/dL AST 15 (5-31) U/L ALT 18 (0-31) U/L Alkaline Phosphatase 83 (39-117) U/L Troponin I High Sens (<3.5-17.0) ng/L Total Protein 7.1 (6.5-8.0) g/dL Albumin 4.3 (3.5-5.0) g/dL Urine Opiates Screen Not Detected (Not Detect) Urine Fentanyl Screen Not Detected (Not Detect) Ur Barbiturates Screen Not Detected (Not Detect) Ur Phencyclidine Scrn Not Detected (Not Detect) Ur Amphetamines Screen Not Detected (Not Detect) U Benzodiazepines Scrn Not Detected (Not Detect) Urine Cocaine Screen Not Detected (Not Detect) U Marijuana (THC) Screen POSITIVE H (Not Detect) COVID-19 (ANA) (Negative) COVID-19 Clin Com 10/26/21 10/26/21 Range/Units 17:57 17:57 WBC (4.8-10.8) X10*3/uL RBC (4.20-5.50) X10*6/uL Hgb (12.0-16.0) g/dl Hct (37.0-47.0) % MCV (80.0-98.0) fL MCH (27.0-33.0) pg MCHC (31.0-35.0) g/dl RDW (11.0-16.0) % Plt Count (160-400) X10*3/uL MPV (9.4-12.3) fL Immature Gran % (Auto) (0.0-0.4) % Neut % (Auto) (45-73) % Lymph % (Auto) (20-40) % [place] % (Auto) (2-11) % Eos % (Auto) (0-4) % Baso % (Auto) (0-2) % Lymph # (Auto) (1.2-4.9) X10*3/uL [place] # (Auto) (0.1-1.2) X10*3/uL Eos # (Auto) (0.0-0.4) X10*3/uL Baso # (Auto) (0.0-0.2) X10*3/uL Abs Immat Gran (auto) (0.00-0.03) X10*3/uL Absolute Neuts (auto) (2.0-8.3) x10*3/uL Absolute Nucleated RBC (0.0-0.012) X10*3/uL Nucleated RBC % (auto) (0.0-0.2) /100WBC Sodium (135-145) mmol/L Potassium (3.3-5.1) mmol/L Chloride (96-108) mmol/L Carbon Dioxide (22-29) mmol/L Anion Gap (12-20) BUN (9-16) mg/dL Creatinine (0.5-1.4) mg/dL Estim Creat Clear Calc Estimated GFR Random Glucose (60-115) mg/dL Calcium (8.4-10.2) mg/dL Total Bilirubin (0.0-1.0) mg/dL AST (5-31) U/L ALT (0-31) U/L Alkaline Phosphatase (39-117) U/L Troponin I High Sens < 3.5 (<3.5-17.0) ng/L Total Protein (6.5-8.0) g/dL Albumin (3.5-5.0) g/dL Urine Opiates Screen (Not Detect) Urine Fentanyl Screen (Not Detect) Ur Barbiturates Screen (Not Detect) Ur Phencyclidine Scrn (Not Detect) Ur Amphetamines Screen (Not Detect) U Benzodiazepines Scrn (Not Detect) Urine Cocaine Screen (Not Detect) U Marijuana (THC) Screen (Not Detect) COVID-19 (ANA) Negative (Negative) COVID-19 Clin Com See Note Critical Care Time Critical Care Time Critical Care Time: No Discharge Plan Discharge Clinical Impression: Bipolar disorder, Acute anxiety Patient Disposition: Home, Self-Care Instructions: Anxiety (ED) Additional Instructions: Follow up with your provider in her therapist tomorrow. Follow-up with your pharmacy and take your previous mri ct tech's Cloazaril starting tomorrow. If you develop new or worsening symptoms call 911 or come back to the ER for further evaluation. Prescriptions: No Action naproxen 500 mg tablet 500 mg PO BID PRN (Reason: pain) Qty: 20 0RF ondansetron HCl [Zofran] 4 mg tablet 4 mg PO Q8H PRN (Reason: nausea and vomiting) Qty: 10 0RF Myrbetriq 50 mg tablet extended release 24 hr 1 tab PO DAILY 0RF Trulicity 0.75 mg/0.5 mL pen injector 0.75 mg subcut QWEEK 0RF oxycodone 5 mg tablet 5 mg PO Q6H PRN (Reason: Pain (Scale Score 7-10)) Qty: 20 0RF wmwkdmcpbh-gnxgxro-xsdfxtgm 50-325-40 mg capsule 1 cap PO Q6H PRN (Reason: pain) Qty: 10 0RF metoprolol succinate 50 mg tablet extended release 24 hr 50 mg PO DAILY 0RF lisinopril 40 mg tablet 40 mg PO DAILY 0RF pantoprazole 40 mg tablet,delayed release (DR/EC) 40 mg PO DAILY 0RF Linzess 145 mcg capsule 145 mcg PO DAILY 0RF clozapine 100 mg tablet 50 mg PO BID 0RF clozapine 50 mg tablet 50 mg PO DAILY 0RF clonazepam 1 mg tablet 1 mg PO TID PRN (Reason: Anxiety) 0RF atorvastatin [Lipitor] 20 mg tablet 20 mg PO DAILY 0RF Referrals: Ann-Marie Camacho MD [Primary Care Provider] - 2 days Interventions: ED Discharge Assessment Last Done: 10/26/21 20:25 Discharge Date/Time: 10/26/21 20:35
[2021-10-26 17:48] LABS: Amphetamine Screen Urine Not Detected (Not Detect); Barbiturates, Urine Not Detected (Not Detect); Benzodiazepines Screen Urine Not Detected (Not Detect); Cannabinoid Screen Urine POSITIVE (Not Detect); Cocaine Screen Urine Not Detected (Not Detect); Fentanyl, urine Not Detected (Not Detect); Opiate Screen Urine Not Detected (Not Detect); Phencyclidine Screen Urine Not Detected (Not Detect)
[2021-10-26 18:03] LABS: MANUAL DIFF FLAG NO
[2021-10-26 18:08] VITALS: BP 127/69; PULSE 77; RESP 18; TEMP 36.1; O2SAT 97
[2021-10-26 18:08] LABS: Basophils Percent Auto 0.4 % (0-2); Eosinophils Absolute Auto 0.1 X10*3/uL (0.0-0.4); Eosinophils Percent Auto 1.2 % (0-4); Hematocrit 40.3 % (37.0-47.0); Hemoglobin 13.3 g/dl (12.0-16.0); Imm Gran Abs Auto 0.03 X10*3/uL (0.00-0.03); Imm Gran Pct Auto 0.3 % (0.0-0.4); Lymphocytes Absolute Auto 3.3 X10*3/uL (1.2-4.9); Lymphocytes Percent Auto 30.7 % (20-40); Mean Corpuscular Hemoglobin 30.2 pg (27.0-33.0); Mean Corpuscular Volume 91.4 fL (80.0-98.0); Mean Platelet Volume 9.7 fL (9.4-12.3); Monocytes Absolute Auto 0.7 X10*3/uL (0.1-1.2); Neutrophils Absolute Auto 6.7 x10*3/uL (2.0-8.3); Neutrophils Percent Auto 61.4 % (45-73); Platelet Count 278 X10*3/uL (160-400); Red Blood Count 4.41 X10*6/uL (4.20-5.50); Red Cell Distribution Width 12.8 % (11.0-16.0); White Blood Count 10.9 X10*3/uL (4.8-10.8)
[2021-10-26 18:20] LABS: COVID-19 Test Negative (Negative); IDNOW Serial# 16C4AD1C
[2021-10-26 18:21] LABS: Alanine Aminotransferase 18 U/L (0-31); Albumin Level 4.3 g/dL (3.5-5.0); Alkaline Phosphatase 83 U/L (39-117); Anion Gap 12 (12-20); Aspartate Amino Transferase 15 U/L (5-31); Bilirubin Total 0.3 mg/dL (0.0-1.0); Blood Urea Nitrogen 9 mg/dL (9-16); Calcium 9.2 mg/dL (8.4-10.2); Carbon Dioxide 27 mmol/L (22-29); Chloride 106 mmol/L (96-108); Creatinine Clr Calc Pharmacy 147.2; Estimated Glomerular Filt Rate > 60; Glucose Random 110 mg/dL (60-115); Potassium 4.3 mmol/L (3.3-5.1); Sodium 141 mmol/L (135-145); Total Protein 7.1 g/dL (6.5-8.0)
[2021-10-26 18:27] LABS: Troponin-I High Sensitivity < 3.5 ng/L (<3.5-17.0)
--- NOTE | 2021-10-27 09:09 | MHC.CARE ---
CARE Team left a voicemail for pt to follow up on her discharge from the ED yesterday.
== END 2021-10-26 20:35 | disposition home or self-care (01) ==
PROVIDERS: Physician Assistant; Emergency Provider Emergency Medicine Emergency Medical Services; PCP Internal Medicine
DX: F31.9 Bipolar disorder, unspecified (principal); F41.9 Anxiety disorder, unspecified; R45.851 Suicidal ideations; I10 Essential (primary) hypertension; E11.9 Type 2 diabetes mellitus without complications; E78.5 Hyperlipidemia, unspecified; E66.01 Morbid (severe) obesity due to excess calories; Z79.899 Other long term (current) drug therapy; F12.90 Cannabis use, unspecified, uncomplicated; Z91.51 Personal history of suicidal behavior; Z20.822 Contact with and (suspected) exposure to COVID-19
CPT/HCPCS: 36415; 80053; 80307; 84484; 85025; 87635; 99284

== ENCOUNTER 2021-10-31 13:52 | Emergency (ER) | payer MEDICARE, MEDICAID, OTHER, SELFPAY ==
[2021-10-31 13:59] VITALS: BP 159/105; PULSE 93; RESP 18; TEMP 36.9; O2SAT 98; BMI 50.5
--- NOTE | 2021-10-31 15:37 | PC.NURSE ---
patient reports feeling recently overwhelmed and over eating at home, felt that human resources specialist for clozaril
[2021-10-31 15:41] VITALS: BP 136/75; PULSE 97; RESP 18; TEMP 36.4; O2SAT 97
[2021-10-31 16:49] LABS: Appearance Urine CLEAR; Color Urine YELLOW; Glucose Urine UA 100 MG/DL (NEG); Leukocyte Esterase Urine NEG (NEG); Nitrite Urine NEG (NEG); Specific Gravity - Urine <= 1.005 (1.005-1.025); Urine Blood NEG (NEG); Urine Ketones NEG (NEG); Urine Protein NEG (NEG-TRACE)
[2021-10-31 16:53] LABS: RBC Urine 0 /HPF (0); Squamous Epithelial Cell Urine 1+ /LPF; WBC Urine 0 /HPF (0-4)
[2021-10-31 17:02] LABS: COVID-19 Test Negative (Negative)
[2021-10-31 17:03] LABS: Amphetamine Screen Urine Not Detected (Not Detect); Barbiturates, Urine Not Detected (Not Detect); Benzodiazepines Screen Urine Not Detected (Not Detect); Cannabinoid Screen Urine POSITIVE (Not Detect); Cocaine Screen Urine Not Detected (Not Detect); Fentanyl, urine Not Detected (Not Detect); Opiate Screen Urine Not Detected (Not Detect); Phencyclidine Screen Urine Not Detected (Not Detect)
--- NOTE | 2021-10-31 18:48 | MHC.CARE ---
CARE team met with pt for a risk consult. Pt endorses debilitating anxiety that has been inhibiting her ability to perform her job duties. Pt reports she has been struggling the last two weeks and reports maybe it's an adverse reaction because my [employer] changed manufacture . Pt reports her sleep is disrupted. 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 She has been relatively fine, until about 2 weeks ago she has been anxious before going to work but explains how financially she needs the job. Pt states she has been following up with her providers and states she called [facility] today to talk to Dr. Skelton and the guest relations receptionist would not allow her to. She states she is wondering if she needs her medication adjusted. CARE team asked pt what would be most helpful for her and if she would be comfortable remaining the night in the ED, she declined. Pt was recommended to take her PRN when she gets home, and CARE team will advocate for a quicker psychiatry apt. CARE team will also check in with her tomorrow. She denied SI and contracts for [employer] at this time. Case discussed with RIGOBERTO Hayden, [employer] OPERATOR and Katie Pitt NP
--- NOTE | 2021-10-31 18:49 | ED_ITS ---
HPI - Psych General Chief Complaint: Psychiatric Symptoms Stated Complaint: Crisis Time Seen by Provider: 10/31/21 18:43 Source: patient Mode of arrival: ambulatory Limitations: no limitations History of Present Illness HPI Narrative: Estela maldonado 46-year-old female with past medical history of depression and bipolar presents to the ED for increased anxiety. Patient states have mild suicidal ideation. Patient denies any auditory/visual hallucinations. Patient denies any homicidal ideation. Patient denies any physical complaints. Related Data Home Medications Medication Instructions Recorded Confirmed atorvastatin 20 mg tablet (Lipitor) 20 mg PO DAILY 11/22/20 10/31/21 clonazepam 1 mg tablet 1 mg PO TID PRN 11/22/20 10/31/21 clozapine 100 mg tablet 150 mg PO BEDTIME 11/22/20 10/31/21 clozapine 50 mg tablet 50 mg PO DAILY tab 11/22/20 linaclotide 145 mcg capsule 145 mcg PO DAILY 11/22/20 10/31/21 (Linzess) lisinopril 40 mg tablet 40 mg PO DAILY 11/22/20 10/31/21 metoprolol succinate 50 mg 50 mg PO DAILY 11/22/20 10/31/21 tablet,extended release 24 hr pantoprazole 40 mg tablet,delayed 40 mg PO DAILY 11/22/20 10/31/21 release dulaglutide 0.75 mg/0.5 mL 0.75 mg SUBCUT QWEEK 06/19/21 subcutaneous pen injector (Trulicity) mirabegron 50 mg tablet,extended 1 tab PO DAILY 06/19/21 10/31/21 release 24 hr (Myrbetriq) metformin 1,000 mg tablet 500 mg PO BID 10/31/21 10/31/21 Previous Rx's Medication Instructions Recorded naproxen 500 mg tablet 500 mg PO BID PRN #20 tab 06/08/20 ondansetron HCl 4 mg tablet 4 mg PO Q8H PRN #10 tab 08/20/20 (Zofran) oxycodone 5 mg tablet 5 mg PO Q6H PRN #20 tab 07/23/21 fpwnfcsogi-aflawsj-hlcefzuj 50 1 cap PO Q6H PRN #10 cap 09/27/21 mg-325 mg-40 mg capsule Allergies Allergy/AdvReac Type Severity Reaction Status Date / Time Penicillins [PENICILLINS] Allergy Severe ANAPHYLAXIS Verified 10/26/21 15:55 adhesive [ADHESIVE] Allergy Unknown RASH Verified 10/26/21 15:55 artichoke [ARTICHOKE] Allergy Unknown RASH Verified 10/26/21 15:55 carbamazepine [From TEGRETOL] Allergy Unknown MIGRAINES Verified 10/26/21 15:55 cariprazine [From VRAYLAR] Allergy Unknown LEG CRAMPS Verified 10/26/21 15:55 fentanyl [FENTANYL] Allergy Unknown RASH Verified 10/26/21 15:55 lamotrigine [From LAMICTAL] Allergy Unknown RASH Verified 10/26/21 15:55 lithium [LITHIUM] AdvReac Severe tremor and Verified 10/26/21 15:55 falls Review of Systems Review of Systems: Anxiety Yes all other systems are reviewed and are negative [facility] Past Medical History Medical History Anxiety Bipolar disease, chronic Depression GERD (gastroesophageal reflux disease) High cholesterol Hypertension Migraines Morbid obesity with BMI of 45.0-49.9, adult Obstructive sleep apnea PCOS (polycystic ovarian syndrome) Pre-diabetes Renal colic Thrombosed external hemorrhoid Surgical History History of dilation and curettage Family History Family History Other Breast cancer Social History Social History Alcohol intake: never Patient Tobacco Use Status: Never used Tobacco Substance Use Type: Marijuana Advance Directives: No Advance Directives Information Provided: No Patient : No Physical Exam Vital Signs: Vital Signs: Last Vital Signs Temp 97.5 F 10/31/21 15:41 Pulse 97 10/31/21 15:41 Resp 18 10/31/21 15:41 BP 136/75 10/31/21 15:41 Pulse Ox 97 10/31/21 15:41 BMI result Body Mass Index 50.5 Const: General: cooperative, healthy appearing, comfortable, no acute distress, well developed, alert, awake and Physically active Orientation/consciousness: oriented to time and patient oriented x3 HENMT: Head: Yes normal to inspection, Yes No palpable skull fracture present, Yes normocephalic, Yes atraumatic and No abrasion Eyes: General: appearance normal, both eyes and all related structures Neck: Neck: Yes normal visual inspection, Yes full ROM, Yes no lymphadenopathy, Yes no meningeal signs, Yes trachea midline, Yes supple, No anterior neck swelling and No tender Chest: Chest palpation & inspection: normal inspection of the chest and normal palpation of entire chest wall Resp: Effort & Inspection: normal respiratory effort and able to speak in complete sentences Auscultation: clear to auscultation bilaterally Cardio: Jugular venous distension: no JVD Heart sounds: S1 normal heart sound present and S2 normal heart sound present GI: Inspection: Yes normal to inspection and No abdominal wall ecchymosis Palpation (GI): Soft to palpation, not firm, nontender, no guarding and not rigid : General: No CVA tenderness and Yes no CVA tenderness Back/Spine/Pelvis: Back: no CVA tenderness, No CVA tenderness and No back tenderness Skin: General skin exam: no rashes or lesions noted and elasticity normal Neuro: General: oriented to time, patient oriented x3, gait normal, no meningeal signs and CN's II-XI intact bilaterally Cranial nerves: Yes CN's II-XII intact bilaterally Extrem: General: Yes normal to inspection and Yes full ROM Psych: Appearance: grossly normal, well kempt and not disheveled Course Course Course Narrative: GIPSON, UA, and covid swab ordered. Patient is not in distress and watching television. Case signed out to ELISABETH Wilson [facility] - Psych Lab Data Labs: Lab Results 10/31/21 10/31/21 10/31/21 Range/Units 16:34 16:41 16:41 Urine Color YELLOW Urine Appearance CLEAR Urine pH 7.0 (5.0-8.0) Ur Specific [place] <= 1.005 (1.005-1.025) Urine Protein NEG (NEG-TRACE) MG/DL Urine Glucose (UA) 100 H (NEG) MG/DL Urine Ketones NEG (NEG) MG/DL Urine Blood NEG (NEG) Urine Nitrite NEG (NEG) Ur Leukocyte Esterase NEG (NEG) Urine RBC 0 (0) /HPF Urine WBC 0 (0-4) /HPF Ur Squamous Epith Cells 1+ /LPF Urine Bacteria NONE /LPF Urine Opiates Screen Not Detected (Not Detect) Urine Fentanyl Screen Not Detected (Not Detect) Ur Barbiturates Screen Not Detected (Not Detect) Ur Phencyclidine Scrn Not Detected (Not Detect) Ur Amphetamines Screen Not Detected (Not Detect) U Benzodiazepines Scrn Not Detected (Not Detect) Urine Cocaine Screen Not Detected (Not Detect) U Marijuana (THC) Screen POSITIVE H (Not Detect) COVID-19 (ANA) Negative (Negative) COVID-19 Clin Com See Note Discharge Plan Discharge Clinical Impression: Depression, Bipolar disorder Patient Disposition: Still a Patient Prescriptions: No Action naproxen 500 mg tablet 500 mg PO BID PRN (Reason: pain) Qty: 20 0RF ondansetron HCl [Zofran] 4 mg tablet 4 mg PO Q8H PRN (Reason: nausea and vomiting) Qty: 10 0RF Myrbetriq 50 mg tablet extended release 24 hr 1 tab PO DAILY 0RF Trulicity 0.75 mg/0.5 mL pen injector 0.75 mg subcut QWEEK 0RF oxycodone 5 mg tablet 5 mg PO Q6H PRN (Reason: Pain (Scale Score 7-10)) Qty: 20 0RF yeulktqkmv-nsqjwdt-lxmyridg 50-325-40 mg capsule 1 cap PO Q6H PRN (Reason: pain) Qty: 10 0RF metformin 1,000 mg tablet 500 mg PO BID 0RF metoprolol succinate 50 mg tablet extended release 24 hr 50 mg PO DAILY 0RF lisinopril 40 mg tablet 40 mg PO DAILY 0RF pantoprazole 40 mg tablet,delayed release (DR/EC) 40 mg PO DAILY 0RF Linzess 145 mcg capsule 145 mcg PO DAILY 0RF clozapine 100 mg tablet 150 mg PO BEDTIME 0RF clozapine 50 mg tablet 50 mg PO DAILY 0RF clonazepam 1 mg tablet 1 mg PO TID PRN (Reason: Anxiety) 0RF atorvastatin [Lipitor] 20 mg tablet 20 mg PO DAILY 0RF
[2021-10-31] MEDS: clonazePAM 1 MG TABLET PO (19:19)
== END 2021-10-31 19:28 | disposition home or self-care (01) ==
PROVIDERS: Physician Assistant; Emergency Provider Emergency Medicine Emergency Medical Services; PCP Internal Medicine
DX: F41.9 Anxiety disorder, unspecified (principal); R45.851 Suicidal ideations; F31.9 Bipolar disorder, unspecified; I10 Essential (primary) hypertension; E78.5 Hyperlipidemia, unspecified; R73.03 Prediabetes; F12.90 Cannabis use, unspecified, uncomplicated; Z20.822 Contact with and (suspected) exposure to COVID-19; Z79.02 Long term (current) use of antithrombotics/antiplatelets; Z79.899 Other long term (current) drug therapy
CPT/HCPCS: 80307; 81001; 87635; 99284

== ENCOUNTER 2021-11-08 18:32 | Emergency (ER) | payer MEDICARE, MEDICAID, OTHER, SELFPAY ==
[2021-11-08 19:20] VITALS: BP 146/86; PULSE 94; RESP 19; TEMP 36.4; O2SAT 95; BMI 50.5
--- NOTE | 2021-11-08 19:54 | ED_ITS ---
HPI - Psych General Chief Complaint: Psychiatric Symptoms Stated Complaint: anxiety needs to see crisis Time Seen by Provider: 11/08/21 19:53 Source: patient Mode of arrival: ambulatory Limitations: no limitations History of Present Illness HPI Narrative: This is a 46-year-old female past medical history significant for bipolar disease, JILLIAN, GERD, HLD, HTN, pre-diabetes, PCOS, h/o migraines/renal colic here with chest tightness/pressure, anxiety, depression and suicidal ideation x2 days. 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 She tells me that her PCP was not there are some be was covering for her primary doctor but her on hydroxyzine for anxiety. She tells me that ever since she started this medication she has been experiencing chest tightness/pressure in the center of her chest, it does not radiate. She tells me it is uncomfortable. She tells me her anxiety is intolerable at this time and she is also suicidal, she has a plan of overdosing or jumping off a bridge. She tells me that she thinks about this often. Denies visual, auditory and tactile hallucinations. Tells me she does at able as however denies all other drugs, alcohol and tobacco use. She tells me that at this time she has a slight migrane feels like her typical headache, throbbing without vision changes or dizziness. She tells me this is her typical migraine. MD complaint: suicidal ideation, feels depressed and anxiety Onset (ago): day(s) (2) Duration: constant History of same: Yes Relieving factors: none Exacerbating factors: none Context: new medication(s) (Hydroxyzine) Associated psychiatric symptoms: none Associated symptoms: denies other symptoms Treatments prior to arrival: none If self harm: admits thoughts of self harm and has plan Related Data Home Medications Medication Instructions Recorded Confirmed atorvastatin 20 mg tablet (Lipitor) 20 mg PO DAILY 11/22/20 10/31/21 clonazepam 1 mg tablet 1 mg PO TID PRN 11/22/20 10/31/21 clozapine 100 mg tablet 150 mg PO BEDTIME 11/22/20 10/31/21 clozapine 50 mg tablet 50 mg PO DAILY tab 11/22/20 linaclotide 145 mcg capsule 145 mcg PO DAILY 11/22/20 10/31/21 (Linzess) lisinopril 40 mg tablet 40 mg PO DAILY 11/22/20 10/31/21 metoprolol succinate 50 mg 50 mg PO DAILY 11/22/20 10/31/21 tablet,extended release 24 hr pantoprazole 40 mg tablet,delayed 40 mg PO DAILY 11/22/20 10/31/21 release dulaglutide 0.75 mg/0.5 mL 0.75 mg SUBCUT QWEEK 06/19/21 subcutaneous pen injector (Trulicity) mirabegron 50 mg tablet,extended 1 tab PO DAILY 06/19/21 10/31/21 release 24 hr (Myrbetriq) metformin 1,000 mg tablet 500 mg PO BID 10/31/21 10/31/21 Previous Rx's Medication Instructions Recorded naproxen 500 mg tablet 500 mg PO BID PRN #20 tab 06/08/20 ondansetron HCl 4 mg tablet 4 mg PO Q8H PRN #10 tab 08/20/20 (Zofran) oxycodone 5 mg tablet 5 mg PO Q6H PRN #20 tab 07/23/21 hulsdzyetr-oidaxfa-eafkxilt 50 1 cap PO Q6H PRN #10 cap 09/27/21 mg-325 mg-40 mg capsule Allergies Allergy/AdvReac Type Severity Reaction Status Date / Time Penicillins [PENICILLINS] Allergy Severe ANAPHYLAXIS Verified 10/26/21 15:55 adhesive [ADHESIVE] Allergy Unknown RASH Verified 10/26/21 15:55 artichoke [ARTICHOKE] Allergy Unknown RASH Verified 10/26/21 15:55 carbamazepine [From TEGRETOL] Allergy Unknown MIGRAINES Verified 10/26/21 15:55 cariprazine [From VRAYLAR] Allergy Unknown LEG CRAMPS Verified 10/26/21 15:55 fentanyl [FENTANYL] Allergy Unknown RASH Verified 10/26/21 15:55 lamotrigine [From LAMICTAL] Allergy Unknown RASH Verified 10/26/21 15:55 lithium [LITHIUM] AdvReac Severe tremor and Verified 10/26/21 15:55 falls Review of Systems Review of Systems: Constitutional : No Fever, No Chills ENT/Mouth : No Ear Pain, No Nasal Congestion, No sore throat Eyes: No Eye Pain, No Swelling, No Redness Cardiovascular : No Chest Pain, No SOB Respiratory : No Cough, No Sputum, No Dyspnea Gastrointestinal : No Nausea, No Vomiting, No Diarrhea, No Hematochezia, No M cecilia Genitourinary : No Dysuria, No Urinary Frequency, No Hematuria Musculoskeletal : No Myalgias Skin : No Skin Lesions, No rash Neuro : No Weakness, No Numbness, No Paresthesias, No Dizziness, No Headache Psych : positive Anxiety, positive Depression, positive SI/HI All other systems reviewed and are negative Yes all other systems are reviewed and are negative [facility] Past Medical History Attestation statement: The following information was validated with the patient. Source: old records reviewed and nursing notes reviewed Medical History Anxiety Bipolar disease, chronic Depression GERD (gastroesophageal reflux disease) High cholesterol Hypertension Migraines Morbid obesity with BMI of 45.0-49.9, adult Obstructive sleep apnea PCOS (polycystic ovarian syndrome) Pre-diabetes Renal colic Thrombosed external hemorrhoid Surgical History History of dilation and curettage Family History Family History Other Breast cancer Social History Social History Alcohol intake: never Patient Tobacco Use Status: Never used Tobacco Substance Use Type: Marijuana Advance Directives: No Patient : No Physical Exam Vital Signs: Vital Signs: Last Vital Signs Temp 99 F 11/08/21 20:05 Pulse 90 11/08/21 20:05 Resp 16 11/08/21 20:05 BP 126/82 11/08/21 20:05 Pulse Ox 96 11/08/21 20:05 BMI result Body Mass Index 50.5 Vital signs stable. Appearance: Alert.? Oriented X3.? No acute distress.? Head: Normocephalic, atraumatic, no step-offs or deformities Eyes: Pupils equal, round and reactive to light.? ENT: Pharynx normal.? Neck: Normal inspection.? Neck supple.? CVS: Normal heart rate and rhythm.? Pulses normal.? Respiratory: No respiratory distress.? Breath sounds normal.? Abdomen: Soft and nontender.? Skin: Skin warm and dry.? Normal skin color.? Normal skin turgor.? Extremities: No lower extremity edema.? No calf ttp. 5/5 strength to bilateral upper and lower extremities Back: No midline tenderness, no C-spine tenderness, full range of motion, no CVA tenderness bilaterally Neuro: Oriented X 3.? No motor deficit.? No sensory deficit. CN 2-12 intact Course Reevaluation(s) Reevaluation #1: CBC within normal limits. Chemistry with no acute electrolyte abnormalities. Troponin negative. EKG nonischemic. Unlikely this is ACS. Urine toxicology positive for opiates and marijuana. UA clean. COVID negative. At this time patient will be placed in physician observation to allow more time to be evaluated by the behavioral health team. At time the observation was started patient, cooperative no acute distress. Will continue to monitor. Time: 21:29 MDM - Psych MDM Narrative Medical decision making narrative: 1958 46 yo f well know to us preents with chest tightness, si w/plan, anxiety and depresion X2 days PE benign. Plan labs, medical clearance, behavioral health consult. Medical Records Attestation: I reviewed the patient's medical records. Lab Data Attestation: I reviewed the patient's lab results. Result diagrams: 11/08/21 20:37 11/08/21 20:38 Labs: Lab Results 11/08/21 11/08/21 11/08/21 Range/Units 20:11 20:13 20:13 WBC (4.8-10.8) X10*3/uL RBC (4.20-5.50) X10*6/uL Hgb (12.0-16.0) g/dl Hct (37.0-47.0) % MCV (80.0-98.0) fL MCH (27.0-33.0) pg MCHC (31.0-35.0) g/dl RDW (11.0-16.0) % Plt Count (160-400) X10*3/uL MPV (9.4-12.3) fL Immature Gran % (Auto) (0.0-0.4) % Neut % (Auto) (45-73) % Lymph % (Auto) (20-40) % [place] % (Auto) (2-11) % Eos % (Auto) (0-4) % Baso % (Auto) (0-2) % Lymph # (Auto) (1.2-4.9) X10*3/uL [place] # (Auto) (0.1-1.2) X10*3/uL Eos # (Auto) (0.0-0.4) X10*3/uL Baso # (Auto) (0.0-0.2) X10*3/uL Abs Immat Gran (auto) (0.00-0.03) X10*3/uL Absolute Neuts (auto) (2.0-8.3) x10*3/uL Absolute Nucleated RBC (0.0-0.012) X10*3/uL Nucleated RBC % (auto) (0.0-0.2) /100WBC Sodium (135-145) mmol/L Potassium (3.3-5.1) mmol/L Chloride (96-108) mmol/L Carbon Dioxide (22-29) mmol/L Anion Gap (12-20) BUN (9-16) mg/dL Creatinine (0.5-1.4) mg/dL Estim Creat Clear Calc Estimated GFR Random Glucose (60-115) mg/dL Calcium (8.4-10.2) mg/dL Magnesium (1.6-2.6) mg/dL Total Bilirubin (0.0-1.0) mg/dL AST (5-31) U/L ALT (0-31) U/L Alkaline Phosphatase (39-117) U/L Troponin I High Sens (<3.5-17.0) ng/L Total Protein (6.5-8.0) g/dL Albumin (3.5-5.0) g/dL Urine Color YELLOW Urine Appearance CLEAR Urine pH 6.5 (5.0-8.0) Ur Specific [place] <= 1.005 (1.005-1.025) Urine Protein NEG (NEG-TRACE) MG/DL Urine Glucose (UA) NEG (NEG) MG/DL Urine Ketones NEG (NEG) MG/DL Urine Blood TRACE (NEG) Urine Nitrite NEG (NEG) Ur Leukocyte Esterase NEG (NEG) Urine RBC 0-2 (0) /HPF Urine WBC 0 (0-4) /HPF Ur Squamous Epith Cells 2+ /LPF Urine Bacteria TRACE /LPF Urine Mucus TRACE /LPF Urine Opiates Screen POSITIVE H (Not Detect) Urine Fentanyl Screen Not Detected (Not Detect) Ur Barbiturates Screen Not Detected (Not Detect) Ur Phencyclidine Scrn Not Detected (Not Detect) Ur Amphetamines Screen Not Detected (Not Detect) U Benzodiazepines Scrn Not Detected (Not Detect) Urine Cocaine Screen Not Detected (Not Detect) U Marijuana (THC) Screen POSITIVE H (Not Detect) Ethyl Alcohol mg/dL COVID-19 (ANA) Negative (Negative) COVID-19 Clin Com See Note 11/08/21 11/08/21 11/08/21 Range/Units 20:37 20:37 20:38 WBC 10.1 (4.8-10.8) X10*3/uL RBC 4.36 (4.20-5.50) X10*6/uL Hgb 13.1 (12.0-16.0) g/dl Hct 39.6 (37.0-47.0) % MCV 90.8 (80.0-98.0) fL MCH 30.0 (27.0-33.0) pg MCHC 33.1 (31.0-35.0) g/dl RDW 12.9 (11.0-16.0) % Plt Count 254 (160-400) X10*3/uL MPV 9.6 (9.4-12.3) fL Immature Gran % (Auto) 0.3 (0.0-0.4) % Neut % (Auto) 62.8 (45-73) % Lymph % (Auto) 31.5 (20-40) % [place] % (Auto) 4.4 (2-11) % Eos % (Auto) 0.7 (0-4) % Baso % (Auto) 0.3 (0-2) % Lymph # (Auto) 3.2 (1.2-4.9) X10*3/uL [place] # (Auto) 0.5 (0.1-1.2) X10*3/uL Eos # (Auto) 0.1 (0.0-0.4) X10*3/uL Baso # (Auto) 0.0 (0.0-0.2) X10*3/uL Abs Immat Gran (auto) 0.03 (0.00-0.03) X10*3/uL Absolute Neuts (auto) 6.4 (2.0-8.3) x10*3/uL Absolute Nucleated RBC 0.000 (0.0-0.012) X10*3/uL Nucleated RBC % (auto) 0.0 (0.0-0.2) /100WBC Sodium 139 (135-145) mmol/L Potassium 4.0 (3.3-5.1) mmol/L Chloride 103 (96-108) mmol/L Carbon Dioxide 27 (22-29) mmol/L Anion Gap 13 (12-20) BUN 10 (9-16) mg/dL Creatinine 0.82 (0.5-1.4) mg/dL Estim Creat Clear Calc 129.3 Estimated GFR > 60 Random Glucose 135 H (60-115) mg/dL Calcium 9.3 (8.4-10.2) mg/dL Magnesium 2.1 (1.6-2.6) mg/dL Total Bilirubin < 0.2 (0.0-1.0) mg/dL AST 14 (5-31) U/L ALT 22 (0-31) U/L Alkaline Phosphatase 86 (39-117) U/L Troponin I High Sens (<3.5-17.0) ng/L Total Protein 7.2 (6.5-8.0) g/dL Albumin 4.4 (3.5-5.0) g/dL Urine Color Urine Appearance Urine pH (5.0-8.0) Ur Specific Norris (1.005-1.025) Urine Protein (NEG-TRACE) MG/DL Urine Glucose (UA) (NEG) MG/DL Urine Ketones (NEG) MG/DL Urine Blood (NEG) Urine Nitrite (NEG) Ur Leukocyte Esterase (NEG) Urine RBC (0) /HPF Urine WBC (0-4) /HPF Ur Squamous Epith Cells /LPF Urine Bacteria /LPF Urine Mucus /LPF Urine Opiates Screen (Not Detect) Urine Fentanyl Screen (Not Detect) Ur Barbiturates Screen (Not Detect) Ur Phencyclidine Scrn (Not Detect) Ur Amphetamines Screen (Not Detect) U Benzodiazepines Scrn (Not Detect) Urine Cocaine Screen (Not Detect) U Marijuana (THC) Screen (Not Detect) Ethyl Alcohol < 10 mg/dL COVID-19 (ANA) (Negative) COVID-19 Clin Com 11/08/21 Range/Units 20:38 WBC (4.8-10.8) X10*3/uL RBC (4.20-5.50) X10*6/uL Hgb (12.0-16.0) g/dl Hct (37.0-47.0) % MCV (80.0-98.0) fL MCH (27.0-33.0) pg MCHC (31.0-35.0) g/dl RDW (11.0-16.0) % Plt Count (160-400) X10*3/uL MPV (9.4-12.3) fL Immature Gran % (Auto) (0.0-0.4) % Neut % (Auto) (45-73) % Lymph % (Auto) (20-40) % [place] % (Auto) (2-11) % Eos % (Auto) (0-4) % Baso % (Auto) (0-2) % Lymph # (Auto) (1.2-4.9) X10*3/uL [place] # (Auto) (0.1-1.2) X10*3/uL Eos # (Auto) (0.0-0.4) X10*3/uL Baso # (Auto) (0.0-0.2) X10*3/uL Abs Immat Gran (auto) (0.00-0.03) X10*3/uL Absolute Neuts (auto) (2.0-8.3) x10*3/uL Absolute Nucleated RBC (0.0-0.012) X10*3/uL Nucleated RBC % (auto) (0.0-0.2) /100WBC Sodium (135-145) mmol/L Potassium (3.3-5.1) mmol/L Chloride (96-108) mmol/L Carbon Dioxide (22-29) mmol/L Anion Gap (12-20) BUN (9-16) mg/dL Creatinine (0.5-1.4) mg/dL Estim Creat Clear Calc Estimated GFR Random Glucose (60-115) mg/dL Calcium (8.4-10.2) mg/dL Magnesium (1.6-2.6) mg/dL Total Bilirubin (0.0-1.0) mg/dL AST (5-31) U/L ALT (0-31) U/L Alkaline Phosphatase (39-117) U/L Troponin I High Sens < 3.5 (<3.5-17.0) ng/L Total Protein (6.5-8.0) g/dL Albumin (3.5-5.0) g/dL Urine Color Urine Appearance Urine pH (5.0-8.0) Ur Specific Norris (1.005-1.025) Urine Protein (NEG-TRACE) MG/DL Urine Glucose (UA) (NEG) MG/DL Urine Ketones (NEG) MG/DL Urine Blood (NEG) Urine Nitrite (NEG) Ur Leukocyte Esterase (NEG) Urine RBC (0) /HPF Urine WBC (0-4) /HPF Ur Squamous Epith Cells /LPF Urine Bacteria /LPF Urine Mucus /LPF Urine Opiates Screen (Not Detect) Urine Fentanyl Screen (Not Detect) Ur Barbiturates Screen (Not Detect) Ur Phencyclidine Scrn (Not Detect) Ur Amphetamines Screen (Not Detect) U Benzodiazepines Scrn (Not Detect) Urine Cocaine Screen (Not Detect) U Marijuana (THC) Screen (Not Detect) Ethyl Alcohol mg/dL COVID-19 (ANA) (Negative) COVID-19 Clin Com ECG Data Attestation: I personally reviewed and interpreted this ECG as follows: ECG interpretation date: 11/08/21 ECG interpretation time: 20:38 Prior ECG tracings: available for review Interpretation: Ventricular rate of 85, [place] normal, QRS normal, QT/QTC normal. EKG shows normal sinus rhythm no signs of acute ischemia. No significant changes when compared to previous. Critical Care Time Critical Care Time Critical Care Time: No Discharge Plan Discharge Clinical Impression: Depression, Acute anxiety, Suicidal ideation Patient Disposition: Still a Patient Prescriptions: No Action naproxen 500 mg tablet 500 mg PO BID PRN (Reason: pain) Qty: 20 0RF ondansetron HCl [Zofran] 4 mg tablet 4 mg PO Q8H PRN (Reason: nausea and vomiting) Qty: 10 0RF Myrbetriq 50 mg tablet extended release 24 hr 1 tab PO DAILY 0RF Trulicity 0.75 mg/0.5 mL pen injector 0.75 mg subcut QWEEK 0RF oxycodone 5 mg tablet 5 mg PO Q6H PRN (Reason: Pain (Scale Score 7-10)) Qty: 20 0RF hxmzaddvty-bpbvpse-fpbztfji 50-325-40 mg capsule 1 cap PO Q6H PRN (Reason: pain) Qty: 10 0RF metformin 1,000 mg tablet 500 mg PO BID 0RF metoprolol succinate 50 mg tablet extended release 24 hr 50 mg PO DAILY 0RF lisinopril 40 mg tablet 40 mg PO DAILY 0RF pantoprazole 40 mg tablet,delayed release (DR/EC) 40 mg PO DAILY 0RF Linzess 145 mcg capsule 145 mcg PO DAILY 0RF clozapine 100 mg tablet 150 mg PO BEDTIME 0RF clozapine 50 mg tablet 50 mg PO DAILY 0RF clonazepam 1 mg tablet 1 mg PO TID PRN (Reason: Anxiety) 0RF atorvastatin [Lipitor] 20 mg tablet 20 mg PO DAILY 0RF
--- NOTE | 2021-11-08 19:57 | ECG_ITS ---
Test Reason : CHEST PAIN Blood Pressure : / mmHG Vent. Rate : 085 BPM Atrial Rate : 085 BPM P-R Int : 184 ms QRS Dur : 084 ms QT Int : 378 ms P-R-T Axes : 027 021 051 degrees QTc Int : 449 ms Normal sinus rhythm Normal ECG When compared with ECG of 12-OCT-2021 15:35, No significant change was found Referred By: Octavio Augilar Electronically Signed By:THERESA HUTSON
[2021-11-08 20:05] VITALS: BP 126/82; PULSE 90; RESP 16; TEMP 37.2; O2SAT 96
[2021-11-08 20:22] LABS: Appearance Urine CLEAR; Color Urine YELLOW; Glucose Urine UA NEG (NEG); Leukocyte Esterase Urine NEG (NEG); Nitrite Urine NEG (NEG); PH 6.5 (5.0-8.0); Specific Gravity - Urine <= 1.005 (1.005-1.025); UACC Culture Trigger NO; Urine Blood TRACE (NEG); Urine Ketones NEG (NEG); Urine Protein NEG (NEG-TRACE)
[2021-11-08 20:38] LABS: Amphetamine Screen Urine Not Detected (Not Detect); Barbiturates, Urine Not Detected (Not Detect); Benzodiazepines Screen Urine Not Detected (Not Detect); Cannabinoid Screen Urine POSITIVE (Not Detect); Cocaine Screen Urine Not Detected (Not Detect); Fentanyl, urine Not Detected (Not Detect); Opiate Screen Urine POSITIVE (Not Detect); Phencyclidine Screen Urine Not Detected (Not Detect)
[2021-11-08 20:40] LABS: COVID-19 Test Negative (Negative)
[2021-11-08 20:44] LABS: MANUAL DIFF FLAG NO
[2021-11-08 20:45] LABS: Basophils Percent Auto 0.3 % (0-2); Eosinophils Absolute Auto 0.1 X10*3/uL (0.0-0.4); Eosinophils Percent Auto 0.7 % (0-4); Hematocrit 39.6 % (37.0-47.0); Hemoglobin 13.1 g/dl (12.0-16.0); Imm Gran Abs Auto 0.03 X10*3/uL (0.00-0.03); Imm Gran Pct Auto 0.3 % (0.0-0.4); Lymphocytes Absolute Auto 3.2 X10*3/uL (1.2-4.9); Lymphocytes Percent Auto 31.5 % (20-40); Mean Corpuscular HGB Conc 33.1 g/dl (31.0-35.0); Mean Corpuscular Volume 90.8 fL (80.0-98.0); Mean Platelet Volume 9.6 fL (9.4-12.3); Monocytes Absolute Auto 0.5 X10*3/uL (0.1-1.2); Monocytes Percent Auto 4.4 % (2-11); Neutrophils Absolute Auto 6.4 x10*3/uL (2.0-8.3); Neutrophils Percent Auto 62.8 % (45-73); Platelet Count 254 X10*3/uL (160-400); Red Blood Count 4.36 X10*6/uL (4.20-5.50); Red Cell Distribution Width 12.9 % (11.0-16.0); White Blood Count 10.1 X10*3/uL (4.8-10.8)
[2021-11-08 20:57] LABS: Ethanol < 10 mg/dL
[2021-11-08 20:59] LABS: Bacteria Urine TRACE /LPF; Mucus Urine TRACE /LPF; RBC Urine 0-2 /HPF (0); Squamous Epithelial Cell Urine 2+ /LPF; WBC Urine 0 /HPF (0-4)
[2021-11-08 21:05] LABS: Alanine Aminotransferase 22 U/L (0-31); Albumin Level 4.4 g/dL (3.5-5.0); Alkaline Phosphatase 86 U/L (39-117); Anion Gap 13 (12-20); Aspartate Amino Transferase 14 U/L (5-31); Bilirubin Total < 0.2 mg/dL (0.0-1.0); Blood Urea Nitrogen 10 mg/dL (9-16); Calcium 9.3 mg/dL (8.4-10.2); Carbon Dioxide 27 mmol/L (22-29); Chloride 103 mmol/L (96-108); Creatinine Clr Calc Pharmacy 129.3; Estimated Glomerular Filt Rate > 60; Glucose Random 135 mg/dL (60-115); Magnesium 2.1 mg/dL (1.6-2.6); Sodium 139 mmol/L (135-145); Total Protein 7.2 g/dL (6.5-8.0)
[2021-11-08 21:11] LABS: Troponin-I High Sensitivity < 3.5 ng/L (<3.5-17.0)
[2021-11-08] MEDS: cloZAPine 100 MG TABLET 150 MG PO (22:40)
--- NOTE | 2021-11-08 23:59 | MHC.CARE ---
Pt is well known to the CARE team and ED. 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 She states that the woman is getting upset with her because pt is not cleaning or caring for her the way the woman wants. Pt reports that her is waiting to start work so that she can quit. Pt states that financially she has to work right now. Pt shares that she believes her anxiety is heightened due to this and when she arrived she endorsed SI with plan to jump off bridge. Pt reports that she is not currently suicidal and feels safe discharging home. Pt states she has an appt with Dr. Skelton on 11/22 that she is looking forward to. Pt reports she has a dentist apt tomorrow that she needs to attend and requests to be d/c'd home. CARE team discussed PHP and IP with her and she declined. 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 CARE team will do a phone check in with pt tomorrow.
--- NOTE | 2021-11-09 19:51 | MHC.CARE ---
CARE team called Felicia to check in, she reports she is still bad'. She reports today she was running errands and had an incontinent episode and this was upsetting, she reports she has tried to utilize coping skills by talking to her or watching her favorite TV shows. She reports she continues to experience internal anxiety attacks and states I can't focus or concentrate and I have a hard time remembering things . CARE team allowed Felicia to express her thoughts and feelings and validated them, also discussed self soothing techniques and discussed rubbing lotion on her hands to calm her mind, listen to elda on her phone like the sound of rain or the ocean and breathing exercises to decrease her anxiety.. CARE team also suggested calling PCP to get a sooner appointment and let MD know she is struggling as her next appt is 11/22. Felicia felt this suggestions were helpful and she will call PCP office tomorrow. Felicia would like to be called tomorrow for another check in.
--- NOTE | 2021-11-10 19:10 | MHC.CARE ---
CARE team called pt for a check in call. Pt stated she was enjoying the nice weather. She states she is struggling with her job as it is bringing her a lot of anxiety. Pt states she is looking forward to the weekend because she doesn't have to go into work. 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 CARE team welcomed her to call back for support if needed.
== END 2021-11-09 00:08 | disposition home or self-care (01) ==
PROVIDERS: Physician Assistant; Emergency Provider Emergency Medicine; PCP Internal Medicine
DX: F33.1 Major depressive disorder, recurrent, moderate (principal); R45.851 Suicidal ideations; F41.1 Generalized anxiety disorder; F43.0 Acute stress reaction; F12.90 Cannabis use, unspecified, uncomplicated; Z20.822 Contact with and (suspected) exposure to COVID-19; Z79.899 Other long term (current) drug therapy
CPT/HCPCS: 80053; 80307; 81001; 82077; 83735; 84484; 85025; 87635; 93005; 99285

== ENCOUNTER 2021-11-13 14:50 | Emergency (ER) | payer MEDICARE, MEDICAID, SELFPAY ==
[2021-11-13 15:32] VITALS: BP 133/77; PULSE 95; RESP 16; TEMP 36.7; O2SAT 98; BMI 50.5
--- NOTE | 2021-11-13 16:10 | ED.PSYCH ---
HPI - Psych General Chief Complaint: Psychiatric Symptoms <JUAN C Jones - Last Filed: 11/13/21 17:13> Stated Complaint: Crisis <JUAN C Jones - Last Filed: 11/13/21 17:13> Time Seen by Provider: 11/13/21 15:46 <JUAN C Jones - Last Filed: 11/13/21 17:13> Source: patient <JUAN C Jones - Last Filed: 11/13/21 17:13> Mode of arrival: ambulatory <JUAN C Jones - Last Filed: 11/13/21 17:13> Limitations: no limitations <JUAN C Jones - Last Filed: 11/13/21 17:13> History of Present Illness HPI Narrative: 46-year-old female with history of depression, anxiety, JILLIAN on CPAP, DM not on insulin, bipolar disorder who presents to the ER with increased stress & anxiety, difficulty coping with the stress and suicidal thoughts. She says her doctor recently prescribed her hydroxyzine and she has been taking 25 mg twice a day with no improvement in her anxiety. She thought about committing suicide by driving her car into a curb the other day. She states she has increased stress from owing money for her taxes, her daughter asking for money from across the country and worry about losing her job. <JUAN C Jones - Last Filed: 11/13/21 17:13> MD complaint: suicidal ideation, feels depressed and anxiety <JUAN C Jones - Last Filed: 11/13/21 17:13> Onset (ago): unknown <JUAN C Jones - Last Filed: 11/13/21 17:13> Duration: constant <JUAN C Jones - Last Filed: 11/13/21 17:13> History of same: Yes <JUAN C Jones Last Filed: 11/13/21 17:13> Relieving factors: none <JUAN C Jones Last Filed: 11/13/21 17:13> Exacerbating factors: none <JUAN C Jones Last Filed: 11/13/21 17:13> Context: significant life stressor <JUAN C Jones Last Filed: 11/13/21 17:13> Associated psychiatric symptoms: depression, suicidal ideation and racing thoughts <JUAN C Jones - Last Filed: 11/13/21 17:13> Associated symptoms: denies other symptoms <JUAN C Jones - Last Filed: 11/13/21 17:13> Treatments prior to arrival: none <JUAN C Jones - Last Filed: 11/13/21 17:13> If self harm: admits thoughts of self harm and has plan <JUAN C Jones - Last Filed: 11/13/21 17:13> Details of plan: drive her car into a curb <JUAN C Jones Last Filed: 11/13/21 17:13> Related Data Home Medications: Home Medications Medication Instructions Recorded Confirmed pantoprazole 40 mg tablet,delayed 40 mg PO BID@0630,1630 11/22/20 11/13/21 release mirabegron 50 mg tablet,extended 1 tab PO DAILY 06/19/21 11/13/21 release 24 hr (Myrbetriq) atorvastatin 20 mg tablet 1 tab PO DAILY 11/13/21 11/13/21 clonazepam 1 mg tablet 1 tab PO BID 11/13/21 11/13/21 clozapine 100 mg tablet 1 tab PO DAILY 11/13/21 11/13/21 clozapine 50 mg tablet 1 tab PO DAILY 11/13/21 11/13/21 hydroxyzine pamoate 25 mg capsule 1 cap PO DAILY PRN 11/13/21 11/13/21 linaclotide 145 mcg capsule 1 - 2 cap PO DAILY 11/13/21 11/13/21 (Linzess) lisinopril 40 mg tablet 1 tab PO DAILY 11/13/21 11/13/21 metformin 1,000 mg tablet 1 tab PO BID 11/13/21 11/13/21 metoprolol succinate 50 mg 1 tab PO DAILY 11/13/21 11/13/21 tablet,extended release 24 hr <JUAN C Jones - Last Filed: 11/13/21 17:13> Allergies/Adverse Reactions: Allergies Allergy/AdvReac Type Severity Reaction Status Date / Time Penicillins [PENICILLINS] Allergy Severe ANAPHYLAXIS Verified 10/26/21 15:55 adhesive [ADHESIVE] Allergy Unknown RASH Verified 10/26/21 15:55 artichoke [ARTICHOKE] Allergy Unknown RASH Verified 10/26/21 15:55 carbamazepine [From TEGRETOL] Allergy Unknown MIGRAINES Verified 10/26/21 15:55 cariprazine [From VRAYLAR] Allergy Unknown LEG CRAMPS Verified 10/26/21 15:55 fentanyl [FENTANYL] Allergy Unknown RASH Verified 10/26/21 15:55 lamotrigine [From LAMICTAL] Allergy Unknown RASH Verified 10/26/21 15:55 lithium [LITHIUM] AdvReac Severe tremor and Verified 10/26/21 15:55 falls <JUAN C Jones - Last Filed: 11/13/21 17:13> Review of Systems Review of Systems: Constitutional: No Fever, No Chills ENT/Mouth: No sore throat, No Rhinorrhea, No Swallowing Difficulty Eyes: No vision changes Cardiovascular: No Chest Pain, No SOB, No Orthopnea, No Edema Respiratory: No Cough, No Sputum, No Wheezing, No dyspnea Gastrointestinal: No Nausea, No Vomiting, No Diarrhea, No abdominal Pain, No Hematochezia, No Melena Genitourinary: No Dysuria, No Urinary Frequency, No Hematuria Musculoskeletal: No joint pain, No Myalgias Skin: No Skin Lesions, No rash Neuro: No Weakness, No Numbness, No Dizziness, No Headache Psych: +Anxiety/Panic, + Depression, +SI, No HI, No delusions, No hallucinations Heme/Lymph: No Bruising, No Lymphadenopathy Endocrine: No Polyuria, No Polydipsia <JUAN C Jones - Last Filed: 11/13/21 17:13> [facility] Past Medical History Medical History: Medical History Anxiety Bipolar disease, chronic Depression GERD (gastroesophageal reflux disease) High cholesterol Hypertension Migraines Morbid obesity with BMI of 45.0-49.9, adult Obstructive sleep apnea PCOS (polycystic ovarian syndrome) Pre-diabetes Renal colic Thrombosed external hemorrhoid <JUAN C Jones - Last Filed: 11/13/21 17:13> Surgical History: Surgical History History of dilation and curettage <JUAN C Jones - Last Filed: 11/13/21 17:13> Family History Family History: Family History Other Breast cancer <JUAN C Jones - Last Filed: 11/13/21 17:13> Social History Social History: Social History Alcohol intake: never Patient Tobacco Use Status: Never used Tobacco Substance Use Type: Marijuana Advance Directives: No Advance Directives Information Provided: No Patient : No <JUAN C Jones - Last Filed: 11/13/21 17:13> Physical Exam Vital Signs: Vital Signs: Last Vital Signs Temp 98.1 F 11/13/21 15:32 Pulse 95 11/13/21 15:32 Resp 16 11/13/21 15:32 BP 133/77 11/13/21 15:32 Pulse Ox 98 11/13/21 15:32 BMI result Body Mass Index 50.5 <JUAN C Jones - Last Filed: 11/13/21 17:13> Vital Signs: Last Vital Signs Temp 98.1 F 11/13/21 15:32 Pulse 95 11/13/21 15:32 Resp 16 11/13/21 15:32 BP 133/77 11/13/21 15:32 Pulse Ox 98 11/13/21 15:32 BMI result Body Mass Index 50.5 <Finn Yoo MD - Last Filed: 11/13/21 19:35> Appearance: Alert. Oriented X3. No acute distress. Eyes: Pupils equal, round and reactive to light. ENT: Pharynx normal. Neck: Normal inspection. Neck supple. CVS: Normal heart rate and rhythm. Pulses normal. Respiratory: No respiratory distress. Breath sounds normal. Abdomen: Obese, Soft and nontender. +BS x4 Skin: Skin warm and dry. Normal skin color. Normal skin turgor. No rashes. Extremities: No lower extremity edema. Neuro: Oriented X 3. No motor deficit. No sensory defect. CN II-XII intact. anxious, hyperverbal, +SI. makes eye contact appropriately and answers questions appropriately. <JUAN C Jones - Last Filed: 11/13/21 17:13> Course Course Course Narrative: 46-year-old female with history of anxiety, depression, bipolar disorder who presents to the ER with increased stress, anxiety, depression and suicidal thoughts. This is her 4th ER visit this month for psychiatric complaints. She was just discharged on November 08 with plan to follow up with her outpatient psychiatrist on the of this month. Patient had recent lab workup on November 08 that was unremarkable. She has no physical complaints aside from stress and racing thoughts. Will hold off on lab workup for now and have her evaluated by the crisis team for further evaluation. <JUAN C Jones - Last Filed: 11/13/21 17:13> Reevaluation(s) Reevaluation #1: U tox is positive for marijuana. Patient is medically cleared to be evaluated by crisis team. Physician observation started at 5pm. Patient placed in physician observation because patient is awaiting [facility] evaluation for the possible need of inpatient psych admission. At the time observation was started patient's vital signs were stable. Patient is alert and oriented. Neuro exam is non-focal. CV: RRR and lungs are clear. Will continue to monitor. <JUAN C Jones - Last Filed: 11/13/21 17:13> MDM - Psych MDM Narrative Medical decision making narrative: Patient seen by therapist okay to discharge patient home <Finn Yoo MD - Last Filed: 11/13/21 19:35> Lab Data Labs: Lab Results 11/13/21 11/13/21 Range/Units 15:52 15:53 Urine Opiates Screen Not Detected (Not Detect) Urine Fentanyl Screen Not Detected (Not Detect) Ur Barbiturates Screen Not Detected (Not Detect) Ur Phencyclidine Scrn Not Detected (Not Detect) Ur Amphetamines Screen Not Detected (Not Detect) U Benzodiazepines Scrn Not Detected (Not Detect) Urine Cocaine Screen Not Detected (Not Detect) U Marijuana (THC) Screen POSITIVE H (Not Detect) COVID-19 (ANA) Negative (Negative) COVID-19 Clin Com See Note <JUAN C Jones - Last Filed: 11/13/21 17:13> Lab Results 11/13/21 11/13/21 Range/Units 15:52 15:53 Urine Opiates Screen Not Detected (Not Detect) Urine Fentanyl Screen Not Detected (Not Detect) Ur Barbiturates Screen Not Detected (Not Detect) Ur Phencyclidine Scrn Not Detected (Not Detect) Ur Amphetamines Screen Not Detected (Not Detect) U Benzodiazepines Scrn Not Detected (Not Detect) Urine Cocaine Screen Not Detected (Not Detect) U Marijuana (THC) Screen POSITIVE H (Not Detect) COVID-19 (ANA) Negative (Negative) COVID-19 Clin Com See Note <Finn Yoo MD - Last Filed: 11/13/21 19:35> Discharge Plan Discharge Clinical Impression: Bipolar disorder <JUAN C Jones - Last Filed: 11/13/21 17:13> Patient Disposition: Home, Self-Care <JUAN C Jones - Last Filed: 11/13/21 17:13> Instructions: Bipolar Disorder (ED) <JUAN C Jones - Last Filed: 11/13/21 17:13> Additional Instructions: Take your medications and follow with therapist <JUAN C Jones - Last Filed: 11/13/21 17:13> Prescriptions: No Action Myrbetriq 50 mg tablet extended release 24 hr 1 tab PO DAILY 0RF atorvastatin 20 mg tablet 1 tab PO DAILY 0RF clozapine 100 mg tablet 1 tab PO DAILY 0RF metoprolol succinate 50 mg tablet extended release 24 hr 1 tab PO DAILY 0RF clonazepam 1 mg tablet 1 tab PO BID 0RF metformin 1,000 mg tablet 1 tab PO BID 0RF lisinopril 40 mg tablet 1 tab PO DAILY 0RF hydroxyzine pamoate 25 mg capsule 1 cap PO DAILY PRN (Reason: Anxiety) 0RF clozapine 50 mg tablet 1 tab PO DAILY 0RF Linzess 145 mcg capsule 1 - 2 cap PO DAILY 0RF pantoprazole 40 mg tablet,delayed release (DR/EC) 40 mg PO BID@0630,1630 0RF <JUAN C Jones - Last Filed: 11/13/21 17:13>
[2021-11-13 16:26] LABS: Amphetamine Screen Urine Not Detected (Not Detect); Barbiturates, Urine Not Detected (Not Detect); Benzodiazepines Screen Urine Not Detected (Not Detect); Cannabinoid Screen Urine POSITIVE (Not Detect); Cocaine Screen Urine Not Detected (Not Detect); Fentanyl, urine Not Detected (Not Detect); Opiate Screen Urine Not Detected (Not Detect); Phencyclidine Screen Urine Not Detected (Not Detect)
[2021-11-13 16:30] LABS: COVID-19 Test Negative (Negative); IDNOW Serial# 08D9AD1C
[2021-11-13] MEDS: clonazePAM 1 MG TABLET PO (16:51)
--- NOTE | 2021-11-13 19:21 | MHC.CARE ---
CARE Team engages with pt, who is very well known to CARE Team. 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 CARE Team supports pt in weighing pros and cons, identifying the middle ground and problem solving. Pt would like to attend [facility], but is only willing to go for half a day. CARE Team agrees to reach out to PHP to better understand the options for this. Pt continues to look forward to her psychiatric appt on 11/22, and she hopes they will increase her clozaril. Pt denies SI/HI and would like to be discharged home. CARE Team recommends d/c at this time.
== END 2021-11-13 19:48 | disposition home or self-care (01) ==
PROVIDERS: Emergency Provider Emergency Medicine Emergency Medical Services; PCP Internal Medicine
DX: F31.9 Bipolar disorder, unspecified (principal); F41.9 Anxiety disorder, unspecified; R45.851 Suicidal ideations; Z20.822 Contact with and (suspected) exposure to COVID-19; E78.5 Hyperlipidemia, unspecified; I10 Essential (primary) hypertension; R73.03 Prediabetes; F12.90 Cannabis use, unspecified, uncomplicated; Z79.899 Other long term (current) drug therapy; Z79.02 Long term (current) use of antithrombotics/antiplatelets
CPT/HCPCS: 80307; 87635; 99283; 99284

== ENCOUNTER 2021-11-17 12:20 | Outpatient (REF) | payer MEDICARE, MEDICAID, SELFPAY ==
[2021-11-17 13:20] LABS: Neutrophils Absolute Auto 4.2 x10*3/uL (2.0-8.3)
== END 2021-11-17 12:21 | disposition home or self-care (01) ==
LOC: HO.LABR 12:20
PROVIDERS: PCP Internal Medicine; Visit Provider Psychiatry & Neurology Psychiatry
DX: Z79.899 Other long term (current) drug therapy (principal)
CPT/HCPCS: 36415; 85048

== ENCOUNTER 2021-12-22 13:56 | Emergency (ER) | payer BC, MEDICARE, MEDICAID, SELFPAY ==
--- NOTE | ~2021-12-22 | CT_ITS ---
EXAMINATION: CT abdomen pelvis w con CLINICAL INFORMATION: Reason for Exam abdominal pain, n/v COMPARISON: No prior CT available for comparison. TECHNIQUE: Multidetector volumetric imaging was performed from the superior aspect of the liver through the pubic symphysis 85 mL Omnipaque 350 injected Sagittal and coronal reformatted images were obtained on the technologist's workstation. This CT examination was performed using dose optimization techniques as appropriate, variously including the following: *Automated exposure control *Adjustment of mA and/or kV according to patient size (this includes techniques or standardized protocols for targeted exams where dose is matched to indication/reason for exam; i.e. extremities or head) *Use of iterative reconstruction technique DLP: 1289 mGy-cm FINDINGS: LOWER THORAX: Included lung bases are clear. HEPATOBILIARY: Diffusely hypodense liver suggesting hepatic steatosis, no CT evidence of focal liver lesion. GALLBLADDER: Gallbladder unremarkable. SPLEEN: Spleen is normal in size. PANCREAS: No focal mass or ductal dilatation. STOMACH AND GASTROINTESTINAL TRACT: Stomach is grossly unremarkable. There is no bowel distention or thickening. No CT evidence of appendicitis. Appendix could not be visualized. No dilated blind bowel loop or inflammation around the cecum to suggest appendicitis. ADRENALS: No adrenal nodules. KIDNEYS/URETERS: Bilaterally prominent renal pelvis sees, mild left hydronephrosis, however there is no obstructing stone found in the ureters. There is also mild bilateral perinephric fat stranding left more than right, nonspecific, this has been described in association with possible nephritis, or reflux nephropathy. There is a cyst in the upper pole of the left kidney 1.3 cm. There is a cyst middle pole right kidney 2.8 cm, both cysts are simple cysts Bosniak class I. URINARY BLADDER: Partially decompressed. PELVIC VISCERA: There are few scattered pelvic phleboliths and vascular calcifications. No free air. No pelvic mass. PERITONEUM: No free air or fluid. LYMPH NODES: No lymphadenopathy. VASCULAR:Abdominal aorta normal in size, no aneurysm found. BONES, ABDOMINAL WALL AND SOFT TISSUES: Age-appropriate changes of the spine and skeletal system, no destructive osteolytic or osteosclerotic bone lesion found CT/CT abdomen pelvis w con IMPRESSION: *No CT evidence of bowel obstruction to explain patient's vomiting. The appendix not visualized however no dilated appendix or pericecal fat stranding to suggest appendicitis. *Mild dilatation of renal pelvis sees bilaterally, mild left hydronephrosis, no obstructing stone found, minimal bilateral perinephric fat stranding, nonspecific however can be seen in patients with nephritis or obstructive and/or reflux uropathy. Please correlate clinically with patient urinalysis and blood laboratory analysis. *Bilateral simple renal cysts. Bosniak class I. *Diffusely hypodense liver suggesting hepatic steatosis.
[2021-12-22 14:24] VITALS: BP 155/93; PULSE 100; RESP 19; TEMP 37.4; O2SAT 94; BMI 50.5
[2021-12-22 14:44] LABS: MANUAL DIFF FLAG NO
[2021-12-22 14:46] LABS: Basophils Percent Auto 0.4 % (0-2); Eosinophils Absolute Auto 0.1 X10*3/uL (0.0-0.4); Eosinophils Percent Auto 0.7 % (0-4); Hemoglobin 13.8 g/dl (12.0-16.0); Imm Gran Abs Auto 0.04 X10*3/uL (0.00-0.03); Imm Gran Pct Auto 0.4 % (0.0-0.4); Lymphocytes Absolute Auto 2.6 X10*3/uL (1.2-4.9); Lymphocytes Percent Auto 24.2 % (20-40); Mean Corpuscular HGB Conc 33.7 g/dl (31.0-35.0); Mean Corpuscular Hemoglobin 29.5 pg (27.0-33.0); Mean Corpuscular Volume 87.6 fL (80.0-98.0); Mean Platelet Volume 9.8 fL (9.4-12.3); Monocytes Absolute Auto 0.5 X10*3/uL (0.1-1.2); Monocytes Percent Auto 4.2 % (2-11); Neutrophils Absolute Auto 7.7 x10*3/uL (2.0-8.3); Neutrophils Percent Auto 70.1 % (45-73); Platelet Count 237 X10*3/uL (160-400); Red Blood Count 4.68 X10*6/uL (4.20-5.50); Red Cell Distribution Width 12.5 % (11.0-16.0); White Blood Count 10.9 X10*3/uL (4.8-10.8)
[2021-12-22 14:50] LABS: UPreg QC Valid YES; Urine Pregnancy NEGATIVE (NEGATIVE)
[2021-12-22 14:50] LABS: Appearance Urine CLEAR; Color Urine YELLOW; Glucose Urine UA 100 MG/DL (NEG); Leukocyte Esterase Urine NEG (NEG); Nitrite Urine NEG (NEG); Specific Gravity - Urine 1.015 (1.005-1.025); Urine Blood NEG (NEG); Urine Ketones 5 MG/DL (NEG); Urine Protein NEG (NEG-TRACE)
[2021-12-22 15:01] LABS: COVID-19 Test Negative (Negative); IDNOW Serial# 16C4AD1C; Influenza A Negative (Negative); Influenza B2 Negative (Negative)
[2021-12-22 15:05] LABS: Alanine Aminotransferase 27 U/L (0-31); Albumin Level 4.3 g/dL (3.5-5.0); Alkaline Phosphatase 92 U/L (39-117); Anion Gap 17 (12-20); Aspartate Amino Transferase 17 U/L (5-31); Bilirubin Direct < 0.2 mg/dL (0.0-0.5); Bilirubin Total 0.3 mg/dL (0.0-1.0); Blood Urea Nitrogen 13 mg/dL (9-16); Calcium 9.4 mg/dL (8.4-10.2); Carbon Dioxide 21 mmol/L (22-29); Chloride 102 mmol/L (96-108); Creatinine Clr Calc Pharmacy 132.5; Estimated Glomerular Filt Rate > 60; Glucose Random 301 mg/dL (60-115); Lipase 26 U/L (8-78); Potassium 4.3 mmol/L (3.3-5.1); Sodium 136 mmol/L (135-145); Total Protein 7.2 g/dL (6.5-8.0)
--- NOTE | 2021-12-22 15:38 | ED.GENADULT ---
HPI - General Adult General Chief complaint: Abdominal Pain <JUAN C Yeung Last Filed: 12/22/21 17:48> Stated complaint: lower abd pain vomiting headache <JUAN C Yeung Last Filed: 12/22/21 17:48> Time Seen by Provider: 12/22/21 15:06 <JAUN C Yeung Last Filed: 12/22/21 17:48> Source: patient <JUAN C Yeung Last Filed: 12/22/21 17:48> Mode of arrival: ambulatory <JUAN C Yeung Last Filed: 12/22/21 17:48> Limitations: no limitations <JUAN C Yeung Last Filed: 12/22/21 17:48> History of Present Illness HPI narrative: Patient is a 46 year old female presenting to the emergency department today with abdominal pain and feeling generally unwell. Patient states that she has generalized abdominal pain and is feeling generally unwell. Patient denies any dizziness, lightheadedness, vomiting, fever, chills, blurry vision, double vision, loss of vision, chest pain, difficulty breathing, shortness of breath, back pain, night sweats, pain with urination, increased urinary frequency, increased urinary urgency, blood in her urine or stool, syncope or a near syncopal episode, recent trauma or falls, bowel incontinence, bladder incontinence, bowel retention, bladder retention, or any other complaints at this time. <JUAN C Yeung Last Filed: 12/22/21 17:48> Onset (ago): day(s) <JUAN C Yeung Last Filed: 12/22/21 17:48> Location: abdomen <JUAN C Yeung Last Filed: 12/22/21 17:48> Radiation: non-radiation <JUAN C Yeung Last Filed: 12/22/21 17:48> Severity: mild <JUAN C Yeung Last Filed: 12/22/21 17:48> Severity scale (1-10): 3 <JUAN C Yeung Last Filed: 12/22/21 17:48> Quality: dull <JUAN C Yeung Last Filed: 12/22/21 17:48> Pain Consistency: constant <JUAN C Yeung Last Filed: 12/22/21 17:48> Relieving factors: none <JUAN C Yeung - Last Filed: 12/22/21 17:48> Exacerbating factors: none <JUAN C Yeung - Last Filed: 12/22/21 17:48> Associated symptoms: nausea/vomiting <JUAN C Yeung - Last Filed: 12/22/21 17:48> Treatments prior to arrival: none <JUAN C Yeung - Last Filed: 12/22/21 17:48> Related Data Home medications: Home Medications Medication Instructions Recorded Confirmed pantoprazole 40 mg tablet,delayed 40 mg PO BID@0630,1630 11/22/20 11/13/21 release mirabegron 50 mg tablet,extended 1 tab PO DAILY 06/19/21 11/13/21 release 24 hr (Myrbetriq) atorvastatin 20 mg tablet 1 tab PO DAILY 11/13/21 11/13/21 clonazepam 1 mg tablet 1 tab PO BID 11/13/21 11/13/21 clozapine 100 mg tablet 1 tab PO DAILY 11/13/21 11/13/21 clozapine 50 mg tablet 1 tab PO DAILY 11/13/21 11/13/21 hydroxyzine pamoate 25 mg capsule 1 cap PO DAILY PRN 11/13/21 11/13/21 linaclotide 145 mcg capsule 1 - 2 cap PO DAILY 11/13/21 11/13/21 (Linzess) lisinopril 40 mg tablet 1 tab PO DAILY 11/13/21 11/13/21 metformin 1,000 mg tablet 1 tab PO BID 11/13/21 11/13/21 metoprolol succinate 50 mg 1 tab PO DAILY 11/13/21 11/13/21 tablet,extended release 24 hr <JUAN C Yeung - Last Filed: 12/22/21 17:48> Allergies/adverse reactions: Allergies Allergy/AdvReac Type Severity Reaction Status Date / Time Penicillins [PENICILLINS] Allergy Severe ANAPHYLAXIS Verified 10/26/21 15:55 adhesive [ADHESIVE] Allergy Unknown RASH Verified 10/26/21 15:55 artichoke [ARTICHOKE] Allergy Unknown RASH Verified 10/26/21 15:55 carbamazepine [From TEGRETOL] Allergy Unknown MIGRAINES Verified 10/26/21 15:55 cariprazine [From VRAYLAR] Allergy Unknown LEG CRAMPS Verified 10/26/21 15:55 fentanyl [FENTANYL] Allergy Unknown RASH Verified 10/26/21 15:55 lamotrigine [From LAMICTAL] Allergy Unknown RASH Verified 10/26/21 15:55 lithium [LITHIUM] AdvReac Severe tremor and Verified 10/26/21 15:55 falls <JUAN C Yeung Last Filed: 12/22/21 17:48> Review of Systems Constitutional: Constitutional: Reports no additional constitutional complaints, Denies chills, Denies fever(s) and Denies night sweats <JUAN C Yeung Last Filed: 12/22/21 17:48> Eyes: Eyes: Reports no additional eye complaints, Denies blurry vision, Denies change in vision, Denies diplopia, Denies eye discharge, Denies loss of vision and Denies eye pain <JUAN C Yeung Last Filed: 12/22/21 17:48> ENT: Denies dizziness <JUAN C Yeung Last Filed: 12/22/21 17:48> Cardiovascular: Cardiovascular: Reports no additional cardiovascular complaints, Denies chest pain, Denies lightheadedness, Denies Loss of Consciousness and Denies dyspnea <JUAN C Yeung Last Filed: 12/22/21 17:48> Respiratory: Respiratory: Reports no additional respiratory complaints and Denies dyspnea <JUAN C Yeung Last Filed: 12/22/21 17:48> Gastrointestinal: Gastrointestinal: Reports no additional gastrointestinal complaints, Reports abdominal pain, Denies melena, Denies hematochezia, Denies change in bowel habits, Denies change in stool character and Reports nausea <JUAN C Yeung Last Filed: 12/22/21 17:48> Genitourinary: Genitourinary: Denies hematuria, Denies urinary frequency, Denies dysuria, Denies urinary incontinence, Denies urinary hesitancy and Denies urinary urgency <JUAN C Yeung Last Filed: 12/22/21 17:48> Musculoskeletal: Musculoskeletal: Reports no additional musculoskeletal complaints, Denies numbness and Denies tingling <JUAN C Yeung Last Filed: 12/22/21 17:48> Neurologic: Denies dizziness, Denies loss of vision, Denies numbness and Denies tingling <JUAN C Yeung - Last Filed: 12/22/21 17:48> Psychiatric: Psychiatric: Reports no additional psychiatric complaints <JUAN C Yeung - Last Filed: 12/22/21 17:48> Endocrine: Endocrine: Reports no additional endocrine complaints <JUAN C Yeung - Last Filed: 12/22/21 17:48> Hematologic/Lymphatic: Hematologic/Lymphatic: Reports no additional hematologic/lymphatic complaints <JUAN C Yeung - Last Filed: 12/22/21 17:48> Allergic/Immunologic: Allergic/Immunologic: Reports no additional allergic/immunologic complaints <JUAN C Yeung - Last Filed: 12/22/21 17:48> PMFSH Past Medical History Attestation statement: The following information was validated with the patient. <JUAN C Yeung - Last Filed: 12/22/21 17:48> Source: old records reviewed <JUAN C Yeung - Last Filed: 12/22/21 17:48> Medical History: Medical History Anxiety Bipolar disease, chronic Depression GERD (gastroesophageal reflux disease) High cholesterol Hypertension Migraines Morbid obesity with BMI of 45.0-49.9, adult Obstructive sleep apnea PCOS (polycystic ovarian syndrome) Pre-diabetes Renal colic Thrombosed external hemorrhoid <JUAN C Yeung - Last Filed: 12/22/21 17:48> Surgical History: Surgical History History of dilation and curettage <JUAN C Yeung - Last Filed: 12/22/21 17:48> Family History Family History: Family History Other Breast cancer <JUAN C Yeung - Last Filed: 12/22/21 17:48> Social History Social History: Social History Alcohol intake: never Patient Tobacco Use Status: Never used Tobacco Substance Use Type: Marijuana Advance Directives: Yes Advance Directives Information Provided: Yes Advance Directives on File: No Patient : No <JUAN C Yeung - Last Filed: 12/22/21 17:48> Physical Exam ED Vital Signs: Vital Signs - 24 hr 12/22/21 14:24 12/22/21 16:06 12/22/21 18:09 Temperature 99.3 F 98.2 F 98.2 F Pulse Rate 100 85 79 Respiratory Rate 19 18 18 Blood Pressure 155/93 H 116/72 121/65 Pulse Oximetry 94 94 97 BMI result Body Mass Index 50.5 <JUAN C Yeung - Last Filed: 12/22/21 17:48> Vital Signs - 24 hr 12/22/21 14:24 12/22/21 16:06 12/22/21 18:09 Temperature 99.3 F 98.2 F 98.2 F Pulse Rate 100 85 79 Respiratory Rate 19 18 18 Blood Pressure 155/93 H 116/72 121/65 Pulse Oximetry 94 94 97 BMI result Body Mass Index 50.5 <Dalia Martínez MD - Last Filed: 12/22/21 18:21> Const General: cooperative, no acute distress, alert and awake <JUAN C Yeung - Last Filed: 12/22/21 17:48> Nutritional Appearance: well nourished <JUAN C Yeung Last Filed: 12/22/21 17:48> Orientation/consciousness: patient oriented x3 <JUAN C Yeung - Last Filed: 12/22/21 17:48> Limitations: no limitations <JUAN C Yeung Last Filed: 12/22/21 17:48> HENMT Head: Yes normal to inspection and Yes atraumatic <JUAN C Yeung Last Filed: 12/22/21 17:48> Ears: hearing grossly normal bilaterally and external ears normal <JUAN C Yeung - Last Filed: 12/22/21 17:48> General nose exam: Normal external nose present, no nasal discharge noted and no epistaxis <JUAN C Yeung Last Filed: 12/22/21 17:48> Face and sinus: Yes normal facial exam, No abrasion and No laceration <JUAN C Yeung Last Filed: 12/22/21 17:48> Mouth: Normal oral and palatal mucosa present, no drooling and no muffled voice <Park Graham [facility] Last Filed: 12/22/21 17:48> Eyes General: appearance normal, both eyes and all related structures <Park Graham [facility] Last Filed: 12/22/21 17:48> Periorbital: periorbital findings normal <Park Graham [facility] Last Filed: 12/22/21 17:48> Eyelids: Yes eyelids normal <Park Graham MD - Last Filed: 12/22/21 17:48> Conjunctivae: conjunctivae normal <Park Graham MD - Last Filed: 12/22/21 17:48> Pupils: Equal, round and reactive pupils present <Park Graham [facility] Last Filed: 12/22/21 17:48> EOM: EOMs intact bilaterally <Park Graham MD - Last Filed: 12/22/21 17:48> Neck Neck: Yes normal visual inspection, Yes full ROM and Yes no lymphadenopathy <Park Graham MD - Last Filed: 12/22/21 17:48> Chest Chest palpation & inspection: normal inspection of the chest <Park Graham [facility] Last Filed: 12/22/21 17:48> Resp Effort & Inspection: normal respiratory effort and able to speak in complete sentences <Park Graham [facility] Last Filed: 12/22/21 17:48> Auscultation: clear to auscultation bilaterally <Park Graham [facility] Last Filed: 12/22/21 17:48> Cardio Rate: regular rate <Park Graham [facility] Last Filed: 12/22/21 17:48> Rhythm: regular rhythm <Park Graham [facility] Last Filed: 12/22/21 17:48> GI Inspection: Yes normal to inspection <Park Graham [facility] Last Filed: 12/22/21 17:48> Palpation (GI): Soft to palpation, not firm, nontender, no guarding and not rigid <Park Graham [facility] Last Filed: 12/22/21 17:48> Neuro General: patient oriented x3 and moves all extremities <Park Graham MD - Last Filed: 12/22/21 17:48> Cranial nerves: Yes Equal, round and reactive pupils present <Park GrahamJUAN C - Last Filed: 12/22/21 17:48> Cognition (Neuro): normal cognition <Park GrahamJUAN C - Last Filed: 12/22/21 17:48> Motor exam (neuro): 5/5 motor strength present throughout <Park GrahamJUAN C - Last Filed: 12/22/21 17:48> Sensory Exam: Normal double simultaneous stimulation for sensation <Park GrahamJUAN C - Last Filed: 12/22/21 17:48> Coordination: [id number] test normal <Park GrahamJUAN C - Last Filed: 12/22/21 17:48> Extrem General: Yes normal to inspection, Yes full ROM and Yes capillary refill normal <Park GrahamJUAN C - Last Filed: 12/22/21 17:48> Psych Appearance: grossly normal <Park GrahamJUAN C - Last Filed: 12/22/21 17:48> Mental Status: mental status grossly normal <Park GrahamJUAN C - Last Filed: 12/22/21 17:48> Affect: normal affect <Park GrahamJUAN C - Last Filed: 12/22/21 17:48> Attitude: cooperative <Park GrahamJUAN C - Last Filed: 12/22/21 17:48> Thought process: Normal thought process present <Park GrahamJUAN C - Last Filed: 12/22/21 17:48> Thought content: Normal thought content present <Park GrahamJUAN C - Last Filed: 12/22/21 17:48> Insight: Good insight present (Psych) <Park GrahamJUAN C - Last Filed: 12/22/21 17:48> Medical Decision Making MDM Narrative Medical decision making narrative: Patient is a 46 year old female presenting to the emergency department today with abdominal pain and feeling generally unwell. Patient's physical exam was unremarkable. Patient's blood work was unremarkable. Patient's urine showed no acute process. Patient's abdominal CT is pending. I explained my physical exam findings as well as all test results to the patient. I answered all questions asked by the patient. Patient received IV fluids and Zofran which she stated helped her symptoms significantly. Patient signed out to Dr. Martínez. Disposition pending CT results. <Park GrahamJUAN C - Last Filed: 12/22/21 17:48> Patient is a 46 year old female presenting to the emergency department today with abdominal pain and feeling generally unwell. Patient's physical exam was unremarkable. Patient's blood work was unremarkable. Patient's urine showed no acute process. Patient's abdominal CT is pending. I explained my physical exam findings as well as all test results to the patient. I answered all questions asked by the patient. Patient received IV fluids and Zofran which she stated helped her symptoms significantly. Patient signed out to Dr. Martínez. Disposition pending CT results. CT showed no obs, abscess perofration. + clyde cyst will need follow up. In stable conditions. Repeat exam, abdomen soft <Dalia Martínez MD - Last Filed: 12/22/21 18:21> Differential Diagnosis Differential Diagnosis: abdominal pain <JUAN C Yeung - Last Filed: 12/22/21 17:48> Medical Records Medical records reviewed: Yes I reviewed the patient's medical records. <JUAN C Yeung - Last Filed: 12/22/21 17:48> Lab Data Lab results reviewed: Yes I reviewed the patient's lab results. <JUAN C Yeung - Last Filed: 12/22/21 17:48> Result diagrams: : 12/22/21 14:39 12/22/21 14:39 <JUAN C Yeung - Last Filed: 12/22/21 17:48> Labs: Lab Results 12/22/21 12/22/21 12/22/21 Range/Units 14:32 14:32 14:32 WBC (4.8-10.8) X10*3/uL RBC (4.20-5.50) X10*6/uL Hgb (12.0-16.0) g/dl Hct (37.0-47.0) % MCV (80.0-98.0) fL MCH (27.0-33.0) pg MCHC (31.0-35.0) g/dl RDW (11.0-16.0) % Plt Count (160-400) X10*3/uL MPV (9.4-12.3) fL Immature Gran % (Auto) (0.0-0.4) % Neut % (Auto) (45-73) % Lymph % (Auto) (20-40) % [place] % (Auto) (2-11) % Eos % (Auto) (0-4) % Baso % (Auto) (0-2) % Lymph # (Auto) (1.2-4.9) X10*3/uL [place] # (Auto) (0.1-1.2) X10*3/uL Eos # (Auto) (0.0-0.4) X10*3/uL Baso # (Auto) (0.0-0.2) X10*3/uL Abs Immat Gran (auto) (0.00-0.03) X10*3/uL Absolute Neuts (auto) (2.0-8.3) x10*3/uL Absolute Nucleated RBC (0.0-0.012) X10*3/uL Nucleated RBC % (auto) (0.0-0.2) /100WBC Sodium (135-145) mmol/L Potassium (3.3-5.1) mmol/L Chloride (96-108) mmol/L Carbon Dioxide (22-29) mmol/L Anion Gap (12-20) BUN (9-16) mg/dL Creatinine (0.5-1.4) mg/dL Estim Creat Clear Calc Estimated GFR POC Glucose (60-115) mg/dL Random Glucose (60-115) mg/dL Calcium (8.4-10.2) mg/dL Total Bilirubin (0.0-1.0) mg/dL Direct Bilirubin (0.0-0.5) mg/dL AST (5-31) U/L ALT (0-31) U/L Alkaline Phosphatase (39-117) U/L Total Protein (6.5-8.0) g/dL Albumin (3.5-5.0) g/dL Lipase (8-78) U/L Urine Color Urine Appearance Urine pH (5.0-8.0) Ur Specific [place] (1.005-1.025) Urine Protein (NEG-TRACE) MG/DL Urine Glucose (UA) (NEG) MG/DL Urine Ketones (NEG) MG/DL Urine Blood (NEG) Urine Nitrite (NEG) Ur Leukocyte Esterase (NEG) Urine Test NEGATIVE (NEGATIVE) COVID-19 (ANA) Negative (Negative) COVID-19 Clin Com See Note Influenza Type A (PADMINI) Negative (Negative) Influenza Type B (PADMINI) Negative (Negative) Influenza A & B Note See Note 12/22/21 12/22/21 12/22/21 Range/Units 14:33 14:39 14:39 WBC 10.9 H (4.8-10.8) X10*3/uL RBC 4.68 (4.20-5.50) X10*6/uL Hgb 13.8 (12.0-16.0) g/dl Hct 41.0 (37.0-47.0) % MCV 87.6 (80.0-98.0) fL MCH 29.5 (27.0-33.0) pg MCHC 33.7 (31.0-35.0) g/dl RDW 12.5 (11.0-16.0) % Plt Count 237 (160-400) X10*3/uL MPV 9.8 (9.4-12.3) fL Immature Gran % (Auto) 0.4 (0.0-0.4) % Neut % (Auto) 70.1 (45-73) % Lymph % (Auto) 24.2 (20-40) % [place] % (Auto) 4.2 (2-11) % Eos % (Auto) 0.7 (0-4) % Baso % (Auto) 0.4 (0-2) % Lymph # (Auto) 2.6 (1.2-4.9) X10*3/uL [place] # (Auto) 0.5 (0.1-1.2) X10*3/uL Eos # (Auto) 0.1 (0.0-0.4) X10*3/uL Baso # (Auto) 0.0 (0.0-0.2) X10*3/uL Abs Immat Gran (auto) 0.04 H (0.00-0.03) X10*3/uL Absolute Neuts (auto) 7.7 (2.0-8.3) x10*3/uL Absolute Nucleated RBC 0.000 (0.0-0.012) X10*3/uL Nucleated RBC % (auto) 0.0 (0.0-0.2) /100WBC Sodium 136 (135-145) mmol/L Potassium 4.3 (3.3-5.1) mmol/L Chloride 102 (96-108) mmol/L Carbon Dioxide 21 L (22-29) mmol/L Anion Gap 17 (12-20) BUN 13 (9-16) mg/dL Creatinine 0.80 (0.5-1.4) mg/dL Estim Creat Clear Calc 132.5 Estimated GFR > 60 POC Glucose (60-115) mg/dL Random Glucose 301 H (60-115) mg/dL Calcium 9.4 (8.4-10.2) mg/dL Total Bilirubin 0.3 (0.0-1.0) mg/dL Direct Bilirubin < 0.2 (0.0-0.5) mg/dL AST 17 (5-31) U/L ALT 27 (0-31) U/L Alkaline Phosphatase 92 (39-117) U/L Total Protein 7.2 (6.5-8.0) g/dL Albumin 4.3 (3.5-5.0) g/dL Lipase 26 (8-78) U/L Urine Color YELLOW Urine Appearance CLEAR Urine pH 7.0 (5.0-8.0) Ur Specific [place] 1.015 (1.005-1.025) Urine Protein NEG (NEG-TRACE) MG/DL Urine Glucose (UA) 100 H (NEG) MG/DL Urine Ketones 5 (NEG) MG/DL Urine Blood NEG (NEG) Urine Nitrite NEG (NEG) Ur Leukocyte Esterase NEG (NEG) Urine Test (NEGATIVE) COVID-19 (ANA) (Negative) COVID-19 Clin Com Influenza Type A (PADMINI) (Negative) Influenza Type B (PADMINI) (Negative) Influenza A & B Note 12/22/21 Range/Units 15:42 WBC (4.8-10.8) X10*3/uL RBC (4.20-5.50) X10*6/uL Hgb (12.0-16.0) g/dl Hct (37.0-47.0) % MCV (80.0-98.0) fL MCH (27.0-33.0) pg MCHC (31.0-35.0) g/dl RDW (11.0-16.0) % Plt Count (160-400) X10*3/uL MPV (9.4-12.3) fL Immature Gran % (Auto) (0.0-0.4) % Neut % (Auto) (45-73) % Lymph % (Auto) (20-40) % [place] % (Auto) (2-11) % Eos % (Auto) (0-4) % Baso % (Auto) (0-2) % Lymph # (Auto) (1.2-4.9) X10*3/uL [place] # (Auto) (0.1-1.2) X10*3/uL Eos # (Auto) (0.0-0.4) X10*3/uL Baso # (Auto) (0.0-0.2) X10*3/uL Abs Immat Gran (auto) (0.00-0.03) X10*3/uL Absolute Neuts (auto) (2.0-8.3) x10*3/uL Absolute Nucleated RBC (0.0-0.012) X10*3/uL Nucleated RBC % (auto) (0.0-0.2) /100WBC Sodium (135-145) mmol/L Potassium (3.3-5.1) mmol/L Chloride (96-108) mmol/L Carbon Dioxide (22-29) mmol/L Anion Gap (12-20) BUN (9-16) mg/dL Creatinine (0.5-1.4) mg/dL Estim Creat Clear Calc Estimated GFR POC Glucose 257 H (60-115) mg/dL Random Glucose (60-115) mg/dL Calcium (8.4-10.2) mg/dL Total Bilirubin (0.0-1.0) mg/dL Direct Bilirubin (0.0-0.5) mg/dL AST (5-31) U/L ALT (0-31) U/L Alkaline Phosphatase (39-117) U/L Total Protein (6.5-8.0) g/dL Albumin (3.5-5.0) g/dL Lipase (8-78) U/L Urine Color Urine Appearance Urine pH (5.0-8.0) Ur Specific [place] (1.005-1.025) Urine Protein (NEG-TRACE) MG/DL Urine Glucose (UA) (NEG) MG/DL Urine Ketones (NEG) MG/DL Urine Blood (NEG) Urine Nitrite (NEG) Ur Leukocyte Esterase (NEG) Urine Test (NEGATIVE) COVID-19 (ANA) (Negative) COVID-19 Clin Com Influenza Type A (PADMNII) (Negative) Influenza Type B (PADMINI) (Negative) Influenza A & B Note <JUAN C Yeung - Last Filed: 12/22/21 17:48> Lab Results 12/22/21 12/22/21 12/22/21 Range/Units 14:32 14:32 14:32 WBC (4.8-10.8) X10*3/uL RBC (4.20-5.50) X10*6/uL Hgb (12.0-16.0) g/dl Hct (37.0-47.0) % MCV (80.0-98.0) fL MCH (27.0-33.0) pg MCHC (31.0-35.0) g/dl RDW (11.0-16.0) % Plt Count (160-400) X10*3/uL MPV (9.4-12.3) fL Immature Gran % (Auto) (0.0-0.4) % Neut % (Auto) (45-73) % Lymph % (Auto) (20-40) % [place] % (Auto) (2-11) % Eos % (Auto) (0-4) % Baso % (Auto) (0-2) % Lymph # (Auto) (1.2-4.9) X10*3/uL [place] # (Auto) (0.1-1.2) X10*3/uL Eos # (Auto) (0.0-0.4) X10*3/uL Baso # (Auto) (0.0-0.2) X10*3/uL Abs Immat Gran (auto) (0.00-0.03) X10*3/uL Absolute Neuts (auto) (2.0-8.3) x10*3/uL Absolute Nucleated RBC (0.0-0.012) X10*3/uL Nucleated RBC % (auto) (0.0-0.2) /100WBC Sodium (135-145) mmol/L Potassium (3.3-5.1) mmol/L Chloride (96-108) mmol/L Carbon Dioxide (22-29) mmol/L Anion Gap (12-20) BUN (9-16) mg/dL Creatinine (0.5-1.4) mg/dL Estim Creat Clear Calc Estimated GFR POC Glucose (60-115) mg/dL Random Glucose (60-115) mg/dL Calcium (8.4-10.2) mg/dL Total Bilirubin (0.0-1.0) mg/dL Direct Bilirubin (0.0-0.5) mg/dL AST (5-31) U/L ALT (0-31) U/L Alkaline Phosphatase (39-117) U/L Total Protein (6.5-8.0) g/dL Albumin (3.5-5.0) g/dL Lipase (8-78) U/L Urine Color Urine Appearance Urine pH (5.0-8.0) Ur Specific [place] (1.005-1.025) Urine Protein (NEG-TRACE) MG/DL Urine Glucose (UA) (NEG) MG/DL Urine Ketones (NEG) MG/DL Urine Blood (NEG) Urine Nitrite (NEG) Ur Leukocyte Esterase (NEG) Urine Test NEGATIVE (NEGATIVE) COVID-19 (ANA) Negative (Negative) COVID-19 Clin Com See Note Influenza Type A (PADMINI) Negative (Negative) Influenza Type B (PADMINI) Negative (Negative) Influenza A & B Note See Note 12/22/21 12/22/21 12/22/21 Range/Units 14:33 14:39 14:39 WBC 10.9 H (4.8-10.8) X10*3/uL RBC 4.68 (4.20-5.50) X10*6/uL Hgb 13.8 (12.0-16.0) g/dl Hct 41.0 (37.0-47.0) % MCV 87.6 (80.0-98.0) fL MCH 29.5 (27.0-33.0) pg MCHC 33.7 (31.0-35.0) g/dl RDW 12.5 (11.0-16.0) % Plt Count 237 (160-400) X10*3/uL MPV 9.8 (9.4-12.3) fL Immature Gran % (Auto) 0.4 (0.0-0.4) % Neut % (Auto) 70.1 (45-73) % Lymph % (Auto) 24.2 (20-40) % [place] % (Auto) 4.2 (2-11) % Eos % (Auto) 0.7 (0-4) % Baso % (Auto) 0.4 (0-2) % Lymph # (Auto) 2.6 (1.2-4.9) X10*3/uL [place] # (Auto) 0.5 (0.1-1.2) X10*3/uL Eos # (Auto) 0.1 (0.0-0.4) X10*3/uL Baso # (Auto) 0.0 (0.0-0.2) X10*3/uL Abs Immat Gran (auto) 0.04 H (0.00-0.03) X10*3/uL Absolute Neuts (auto) 7.7 (2.0-8.3) x10*3/uL Absolute Nucleated RBC 0.000 (0.0-0.012) X10*3/uL Nucleated RBC % (auto) 0.0 (0.0-0.2) /100WBC Sodium 136 (135-145) mmol/L Potassium 4.3 (3.3-5.1) mmol/L Chloride 102 (96-108) mmol/L Carbon Dioxide 21 L (22-29) mmol/L Anion Gap 17 (12-20) BUN 13 (9-16) mg/dL Creatinine 0.80 (0.5-1.4) mg/dL Estim Creat Clear Calc 132.5 Estimated GFR > 60 POC Glucose (60-115) mg/dL Random Glucose 301 H (60-115) mg/dL Calcium 9.4 (8.4-10.2) mg/dL Total Bilirubin 0.3 (0.0-1.0) mg/dL Direct Bilirubin < 0.2 (0.0-0.5) mg/dL AST 17 (5-31) U/L ALT 27 (0-31) U/L Alkaline Phosphatase 92 (39-117) U/L Total Protein 7.2 (6.5-8.0) g/dL Albumin 4.3 (3.5-5.0) g/dL Lipase 26 (8-78) U/L Urine Color YELLOW Urine Appearance CLEAR Urine pH 7.0 (5.0-8.0) Ur Specific [place] 1.015 (1.005-1.025) Urine Protein NEG (NEG-TRACE) MG/DL Urine Glucose (UA) 100 H (NEG) MG/DL Urine Ketones 5 (NEG) MG/DL Urine Blood NEG (NEG) Urine Nitrite NEG (NEG) Ur Leukocyte Esterase NEG (NEG) Urine Test (NEGATIVE) COVID-19 (ANA) (Negative) COVID-19 Clin Com Influenza Type A (PADMINI) (Negative) Influenza Type B (PADMINI) (Negative) Influenza A & B Note 12/22/21 Range/Units 15:42 WBC (4.8-10.8) X10*3/uL RBC (4.20-5.50) X10*6/uL Hgb (12.0-16.0) g/dl Hct (37.0-47.0) % MCV (80.0-98.0) fL MCH (27.0-33.0) pg MCHC (31.0-35.0) g/dl RDW (11.0-16.0) % Plt Count (160-400) X10*3/uL MPV (9.4-12.3) fL Immature Gran % (Auto) (0.0-0.4) % Neut % (Auto) (45-73) % Lymph % (Auto) (20-40) % [place] % (Auto) (2-11) % Eos % (Auto) (0-4) % Baso % (Auto) (0-2) % Lymph # (Auto) (1.2-4.9) X10*3/uL [place] # (Auto) (0.1-1.2) X10*3/uL Eos # (Auto) (0.0-0.4) X10*3/uL Baso # (Auto) (0.0-0.2) X10*3/uL Abs Immat Gran (auto) (0.00-0.03) X10*3/uL Absolute Neuts (auto) (2.0-8.3) x10*3/uL Absolute Nucleated RBC (0.0-0.012) X10*3/uL Nucleated RBC % (auto) (0.0-0.2) /100WBC Sodium (135-145) mmol/L Potassium (3.3-5.1) mmol/L Chloride (96-108) mmol/L Carbon Dioxide (22-29) mmol/L Anion Gap (12-20) BUN (9-16) mg/dL Creatinine (0.5-1.4) mg/dL Estim Creat Clear Calc Estimated GFR POC Glucose 257 H (60-115) mg/dL Random Glucose (60-115) mg/dL Calcium (8.4-10.2) mg/dL Total Bilirubin (0.0-1.0) mg/dL Direct Bilirubin (0.0-0.5) mg/dL AST (5-31) U/L ALT (0-31) U/L Alkaline Phosphatase (39-117) U/L Total Protein (6.5-8.0) g/dL Albumin (3.5-5.0) g/dL Lipase (8-78) U/L Urine Color Urine Appearance Urine pH (5.0-8.0) Ur Specific [place] (1.005-1.025) Urine Protein (NEG-TRACE) MG/DL Urine Glucose (UA) (NEG) MG/DL Urine Ketones (NEG) MG/DL Urine Blood (NEG) Urine Nitrite (NEG) Ur Leukocyte Esterase (NEG) Urine Test (NEGATIVE) COVID-19 (ANA) (Negative) COVID-19 Clin Com Influenza Type A (PADMINI) (Negative) Influenza Type B (PADMINI) (Negative) Influenza A & B Note <Dalia Martínez MD - Last Filed: 12/22/21 18:21> Discharge Plan Discharge Clinical Impression: Abdominal pain <JUAN C Yeung - Last Filed: 12/22/21 17:48> Patient Disposition: Still a Patient <JUAN C Yeung - Last Filed: 12/22/21 17:48> Instructions: Abdominal Pain (ED) <JUAN C Yeung - Last Filed: 12/22/21 17:48> Additional Instructions: Follow up with your primary care provider. Return to the emergency department immediately if your symptoms worsen or if you develop any dizziness, shortness of breath, difficulty breathing, chest pain, blurry vision, loss of vision, nausea, vomiting, abdominal pain, fever, chills, back pain, or any other complaints. kidney cyst was noted in your kidney please follow up on outpatient basis <JUAN C Yeung - Last Filed: 12/22/21 17:48> Prescriptions: No Action Myrbetriq 50 mg tablet extended release 24 hr 1 tab PO DAILY 0RF atorvastatin 20 mg tablet 1 tab PO DAILY 0RF clozapine 100 mg tablet 1 tab PO DAILY 0RF metoprolol succinate 50 mg tablet extended release 24 hr 1 tab PO DAILY 0RF clonazepam 1 mg tablet 1 tab PO BID 0RF metformin 1,000 mg tablet 1 tab PO BID 0RF lisinopril 40 mg tablet 1 tab PO DAILY 0RF hydroxyzine pamoate 25 mg capsule 1 cap PO DAILY PRN (Reason: Anxiety) 0RF clozapine 50 mg tablet 1 tab PO DAILY 0RF Linzess 145 mcg capsule 1 - 2 cap PO DAILY 0RF pantoprazole 40 mg tablet,delayed release (DR/EC) 40 mg PO BID@0630,1630 0RF <JUAN C Yeung - Last Filed: 12/22/21 17:48> Referrals: Ann-Marie Camacho MD [Primary Care Provider] - <JUAN C Yeung - Last Filed: 12/22/21 17:48> Print Language: Bengali <JUAN C Yeung - Last Filed: 12/22/21 17:48>
[2021-12-22 15:46] LABS: Glucose, Whole Blood 257 mg/dL (60-115)
[2021-12-22] MEDS: 0.9 % Sodium Chloride 1,000 ML 999 ML IVCONT (16:00)
[2021-12-22] MEDS: ondansetron HCL 4 MG/2 ML VIAL IVPUSH (16:03)
[2021-12-22 16:06] VITALS: BP 116/72; PULSE 85; RESP 18; TEMP 36.8; O2SAT 94
[2021-12-22] MEDS: iohexoL 350 MG/ML 100 ML INFUS..BTL IV (16:29)
[2021-12-22 18:09] VITALS: BP 121/65; PULSE 79; RESP 18; TEMP 36.8; O2SAT 97
== END 2021-12-22 18:26 | disposition home or self-care (01) ==
PROVIDERS: Internal Medicine; Emergency Provider Emergency Medicine Emergency Medical Services; PCP Internal Medicine
DX: R10.30 Lower abdominal pain, unspecified (principal); R11.2 Nausea with vomiting, unspecified; R51.9 Headache, unspecified; F12.90 Cannabis use, unspecified, uncomplicated; Z20.822 Contact with and (suspected) exposure to COVID-19; Z79.899 Other long term (current) drug therapy
CPT/HCPCS: 74177; 80048; 80076; 81003; 81025; 82947; 83690; 85025; 87502; 87635; 96361; 96374; 99284; J2405; Q9967

== ENCOUNTER 2021-12-25 12:32 | Emergency (ER) | payer MEDICARE, MEDICAID, OTHER, SELFPAY ==
[2021-12-25 14:28] VITALS: BP 159/96; PULSE 94; RESP 18; TEMP 36.1; O2SAT 95; BMI 50.8
--- NOTE | 2021-12-25 14:37 | ECG_ITS ---
Test Reason : dizziness Blood Pressure : / mmHG Vent. Rate : 094 BPM Atrial Rate : 094 BPM P-R Int : 178 ms QRS Dur : 088 ms QT Int : 350 ms P-R-T Axes : 046 016 054 degrees QTc Int : 437 ms Normal sinus rhythm Nonspecific T wave abnormality Abnormal ECG When compared with ECG of 08-NOV-2021 20:22, No significant change was found Referred By: Generic ED Physician Electronically Signed By:MAGGIE MONTOYA MD
[2021-12-25 14:43] LABS: Glucose, Whole Blood 210 mg/dL (60-115)
[2021-12-25 15:28] LABS: MANUAL DIFF FLAG NO
[2021-12-25 15:32] LABS: Basophils Percent Auto 0.4 % (0-2); Eosinophils Absolute Auto 0.1 X10*3/uL (0.0-0.4); Eosinophils Percent Auto 0.6 % (0-4); Hematocrit 41.4 % (37.0-47.0); Hemoglobin 13.8 g/dl (12.0-16.0); Imm Gran Abs Auto 0.04 X10*3/uL (0.00-0.03); Imm Gran Pct Auto 0.4 % (0.0-0.4); Lymphocytes Absolute Auto 2.6 X10*3/uL (1.2-4.9); Lymphocytes Percent Auto 24.2 % (20-40); Mean Corpuscular HGB Conc 33.3 g/dl (31.0-35.0); Mean Corpuscular Hemoglobin 30.1 pg (27.0-33.0); Mean Corpuscular Volume 90.2 fL (80.0-98.0); Monocytes Absolute Auto 0.4 X10*3/uL (0.1-1.2); Neutrophils Absolute Auto 7.7 x10*3/uL (2.0-8.3); Neutrophils Percent Auto 70.4 % (45-73); Platelet Count 244 X10*3/uL (160-400); Red Blood Count 4.59 X10*6/uL (4.20-5.50); Red Cell Distribution Width 12.6 % (11.0-16.0); White Blood Count 10.9 X10*3/uL (4.8-10.8)
[2021-12-25 15:42] LABS: Anion Gap 13 (12-20); Blood Urea Nitrogen 10 mg/dL (9-16); Calcium 9.4 mg/dL (8.4-10.2); Carbon Dioxide 28 mmol/L (22-29); Chloride 102 mmol/L (96-108); Creatinine Clr Calc Pharmacy 138.2; Estimated Glomerular Filt Rate > 60; Glucose Random 208 mg/dL (60-115); Potassium 3.9 mmol/L (3.3-5.1); Sodium 139 mmol/L (135-145)
[2021-12-25 22:24] VITALS: BP 123/73; PULSE 86; RESP 18; TEMP 36.7; O2SAT 97
[2021-12-25 22:29] LABS: Appearance Urine CLEAR; Color Urine YELLOW; Glucose Urine UA NEG (NEG); Leukocyte Esterase Urine NEG (NEG); Nitrite Urine NEG (NEG); PH 6.5 (5.0-8.0); UACC Culture Trigger NO; Urine Blood TRACE (NEG); Urine Ketones 5 MG/DL (NEG); Urine Protein NEG (NEG-TRACE)
[2021-12-25 22:33] LABS: UPreg QC Valid YES; Urine Pregnancy NEGATIVE (NEGATIVE)
--- NOTE | 2021-12-25 22:37 | ED.GENADULT ---
HPI - General Adult General Chief complaint: Dizziness Stated complaint: high sugar, dizziness, blurred vision Time Seen by Provider: 12/25/21 21:25 Source: patient Mode of arrival: ambulatory History of Present Illness HPI narrative: 46-year-old female with history of diabetes presents with concerns regarding regulating her blood sugar since she had to hold her metformin after having a CT scan of the abdomen pelvis on 12/22. Patient states she did resume the metformin yesterday afternoon but states that after taking the medication this morning she did not eat because she felt nauseous. Patient also reports a cough as well as chills but otherwise denies vomiting, diarrhea, urinary symptoms. She states she has called her PCP and has an appointment tomorrow morning. Related Data Home Medications Medication Instructions Recorded Confirmed pantoprazole 40 mg tablet,delayed 40 mg PO BID@0630,1630 11/22/20 11/13/21 release mirabegron 50 mg tablet,extended 1 tab PO DAILY 06/19/21 11/13/21 release 24 hr (Myrbetriq) atorvastatin 20 mg tablet 1 tab PO DAILY 11/13/21 11/13/21 clonazepam 1 mg tablet 1 tab PO BID 11/13/21 11/13/21 clozapine 100 mg tablet 1 tab PO DAILY 11/13/21 11/13/21 clozapine 50 mg tablet 1 tab PO DAILY 11/13/21 11/13/21 hydroxyzine pamoate 25 mg capsule 1 cap PO DAILY PRN 11/13/21 11/13/21 linaclotide 145 mcg capsule 1 - 2 cap PO DAILY 11/13/21 11/13/21 (Linzess) lisinopril 40 mg tablet 1 tab PO DAILY 11/13/21 11/13/21 metformin 1,000 mg tablet 1 tab PO BID 11/13/21 11/13/21 metoprolol succinate 50 mg 1 tab PO DAILY 11/13/21 11/13/21 tablet,extended release 24 hr Allergies Allergy/AdvReac Type Severity Reaction Status Date / Time Penicillins [PENICILLINS] Allergy Severe ANAPHYLAXIS Verified 10/26/21 15:55 adhesive [ADHESIVE] Allergy Unknown RASH Verified 10/26/21 15:55 artichoke [ARTICHOKE] Allergy Unknown RASH Verified 10/26/21 15:55 carbamazepine [From TEGRETOL] Allergy Unknown MIGRAINES Verified 10/26/21 15:55 cariprazine [From VRAYLAR] Allergy Unknown LEG CRAMPS Verified 10/26/21 15:55 fentanyl [FENTANYL] Allergy Unknown RASH Verified 10/26/21 15:55 lamotrigine [From LAMICTAL] Allergy Unknown RASH Verified 10/26/21 15:55 lithium [LITHIUM] AdvReac Severe tremor and Verified 10/26/21 15:55 falls Review of Systems Review of Systems: Pertinent positives and negatives as stated in HPI 10 point review of systems is otherwise negative. PMFSH Past Medical History Source: nursing notes reviewed Medical History Anxiety Bipolar disease, chronic Depression GERD (gastroesophageal reflux disease) High cholesterol Hypertension Migraines Morbid obesity with BMI of 45.0-49.9, adult Obstructive sleep apnea PCOS (polycystic ovarian syndrome) Pre-diabetes Renal colic Thrombosed external hemorrhoid Surgical History History of dilation and curettage Family History Family History Other Breast cancer Social History Social History Alcohol intake: never Patient Tobacco Use Status: Never used Tobacco Substance Use Type: Marijuana Advance Directives: No Patient : No Physical Exam ED Vital Signs: Vital Signs - 24 hr 12/25/21 14:28 12/25/21 22:24 Temperature 97 F 98.1 F Pulse Rate 94 86 Respiratory Rate 18 18 Blood Pressure 159/96 H 123/73 Pulse Oximetry 95 97 BMI result Body Mass Index 50.8 VITAL SIGNS: Reviewed. GENERAL: Well developed, well nourished, in no acute distress. HEAD: Normocephalic/atraumatic EYES: PERRLA, EOMI EARS: Ext canals without abnormality OROPHARYNX: no oral lesions noted, posterior pharynx clear LUNGS: Normal breath sounds. No adventitious sounds or accessory muscle use. SpO2<95> CARDIOVASCULAR: Regular rate and rhythm without noted murmurs ABDOMEN: Soft, non-tender, non-distended with bowel sounds. MUSCULOSKELETAL: No tenderness, deformities, or effusions noted on gross inspection. EXTREMITIES: No cyanosis, clubbing or edema. SKIN: Inspection of the skin reveals no rashes, ulcerations, jaundice, pallor, or petechiae. NEUROLOGIC: Alert and oriented x 4. Strength and sensation to light touch were grossly intact x 4. Course Course Course Narrative: 46-year-old female with history and clinical presentation possible viral symptoms and will be evaluated but otherwise review of all investigations negative for acute findings no evidence to suggest DKA and patient offered saltine crackers with diet sin ginette. Review of all further investigations is negative and patient is stable discharge to home. Medical Decision Making Lab Data Result diagrams: 12/25/21 15:22 12/25/21 15:22 Labs: Lab Results 12/25/21 12/25/21 12/25/21 Range/Units 14:35 15:22 15:22 WBC 10.9 H (4.8-10.8) X10*3/uL RBC 4.59 (4.20-5.50) X10*6/uL Hgb 13.8 (12.0-16.0) g/dl Hct 41.4 (37.0-47.0) % MCV 90.2 (80.0-98.0) fL MCH 30.1 (27.0-33.0) pg MCHC 33.3 (31.0-35.0) g/dl RDW 12.6 (11.0-16.0) % Plt Count 244 (160-400) X10*3/uL MPV 10.0 (9.4-12.3) fL Immature Gran % (Auto) 0.4 (0.0-0.4) % Neut % (Auto) 70.4 (45-73) % Lymph % (Auto) 24.2 (20-40) % Kings % (Auto) 4.0 (2-11) % Eos % (Auto) 0.6 (0-4) % Baso % (Auto) 0.4 (0-2) % Lymph # (Auto) 2.6 (1.2-4.9) X10*3/uL Kings # (Auto) 0.4 (0.1-1.2) X10*3/uL Eos # (Auto) 0.1 (0.0-0.4) X10*3/uL Baso # (Auto) 0.0 (0.0-0.2) X10*3/uL Abs Immat Gran (auto) 0.04 H (0.00-0.03) X10*3/uL Absolute Neuts (auto) 7.7 (2.0-8.3) x10*3/uL Absolute Nucleated RBC 0.000 (0.0-0.012) X10*3/uL Nucleated RBC % (auto) 0.0 (0.0-0.2) /100WBC Sodium 139 (135-145) mmol/L Potassium 3.9 (3.3-5.1) mmol/L Chloride 102 (96-108) mmol/L Carbon Dioxide 28 (22-29) mmol/L Anion Gap 13 (12-20) BUN 10 (9-16) mg/dL Creatinine 0.77 (0.5-1.4) mg/dL Estim Creat Clear Calc 138.2 Estimated GFR > 60 POC Glucose 210 H (60-115) mg/dL Random Glucose 208 H (60-115) mg/dL Calcium 9.4 (8.4-10.2) mg/dL Urine Color Urine Appearance Urine pH (5.0-8.0) Ur Specific [place] (1.005-1.025) Urine Protein (NEG-TRACE) MG/DL Urine Glucose (UA) (NEG) MG/DL Urine Ketones (NEG) MG/DL Urine Blood (NEG) Urine Nitrite (NEG) Ur Leukocyte Esterase (NEG) Urine RBC (0) /HPF Urine WBC (0-4) /HPF Ur Squamous Epith Cells /LPF Urine Bacteria /LPF Urine Test (NEGATIVE) COVID-19 (ANA) (Negative) COVID-19 Clin Com Influenza Type A (PADMINI) (Negative) Influenza Type B (PADMINI) (Negative) Influenza A & B Note 12/25/21 12/25/21 12/25/21 Range/Units 22:15 22:15 22:24 WBC (4.8-10.8) X10*3/uL RBC (4.20-5.50) X10*6/uL Hgb (12.0-16.0) g/dl Hct (37.0-47.0) % MCV (80.0-98.0) fL MCH (27.0-33.0) pg MCHC (31.0-35.0) g/dl RDW (11.0-16.0) % Plt Count (160-400) X10*3/uL MPV (9.4-12.3) fL Immature Gran % (Auto) (0.0-0.4) % Neut % (Auto) (45-73) % Lymph % (Auto) (20-40) % Kings % (Auto) (2-11) % Eos % (Auto) (0-4) % Baso % (Auto) (0-2) % Lymph # (Auto) (1.2-4.9) X10*3/uL Kings # (Auto) (0.1-1.2) X10*3/uL Eos # (Auto) (0.0-0.4) X10*3/uL Baso # (Auto) (0.0-0.2) X10*3/uL Abs Immat Gran (auto) (0.00-0.03) X10*3/uL Absolute Neuts (auto) (2.0-8.3) x10*3/uL Absolute Nucleated RBC (0.0-0.012) X10*3/uL Nucleated RBC % (auto) (0.0-0.2) /100WBC Sodium (135-145) mmol/L Potassium (3.3-5.1) mmol/L Chloride (96-108) mmol/L Carbon Dioxide (22-29) mmol/L Anion Gap (12-20) BUN (9-16) mg/dL Creatinine (0.5-1.4) mg/dL Estim Creat Clear Calc Estimated GFR POC Glucose (60-115) mg/dL Random Glucose (60-115) mg/dL Calcium (8.4-10.2) mg/dL Urine Color YELLOW Urine Appearance CLEAR Urine pH 6.5 (5.0-8.0) Ur Specific [place] 1.010 (1.005-1.025) Urine Protein NEG (NEG-TRACE) MG/DL Urine Glucose (UA) NEG (NEG) MG/DL Urine Ketones 5 (NEG) MG/DL Urine Blood TRACE (NEG) Urine Nitrite NEG (NEG) Ur Leukocyte Esterase NEG (NEG) Urine RBC 0-2 (0) /HPF Urine WBC 0-2 (0-4) /HPF Ur Squamous Epith Cells TRACE /LPF Urine Bacteria TRACE /LPF Urine Test NEGATIVE (NEGATIVE) COVID-19 (ANA) (Negative) COVID-19 Clin Com Influenza Type A (PADMINI) Negative (Negative) Influenza Type B (PADMINI) Negative (Negative) Influenza A & B Note See Note 12/25/21 Range/Units 22:24 WBC (4.8-10.8) X10*3/uL RBC (4.20-5.50) X10*6/uL Hgb (12.0-16.0) g/dl Hct (37.0-47.0) % MCV (80.0-98.0) fL MCH (27.0-33.0) pg MCHC (31.0-35.0) g/dl RDW (11.0-16.0) % Plt Count (160-400) X10*3/uL MPV (9.4-12.3) fL Immature Gran % (Auto) (0.0-0.4) % Neut % (Auto) (45-73) % Lymph % (Auto) (20-40) % Kings % (Auto) (2-11) % Eos % (Auto) (0-4) % Baso % (Auto) (0-2) % Lymph # (Auto) (1.2-4.9) X10*3/uL [place] # (Auto) (0.1-1.2) X10*3/uL Eos # (Auto) (0.0-0.4) X10*3/uL Baso # (Auto) (0.0-0.2) X10*3/uL Abs Immat Gran (auto) (0.00-0.03) X10*3/uL Absolute Neuts (auto) (2.0-8.3) x10*3/uL Absolute Nucleated RBC (0.0-0.012) X10*3/uL Nucleated RBC % (auto) (0.0-0.2) /100WBC Sodium (135-145) mmol/L Potassium (3.3-5.1) mmol/L Chloride (96-108) mmol/L Carbon Dioxide (22-29) mmol/L Anion Gap (12-20) BUN (9-16) mg/dL Creatinine (0.5-1.4) mg/dL Estim Creat Clear Calc Estimated GFR POC Glucose (60-115) mg/dL Random Glucose (60-115) mg/dL Calcium (8.4-10.2) mg/dL Urine Color Urine Appearance Urine pH (5.0-8.0) Ur Specific [place] (1.005-1.025) Urine Protein (NEG-TRACE) MG/DL Urine Glucose (UA) (NEG) MG/DL Urine Ketones (NEG) MG/DL Urine Blood (NEG) Urine Nitrite (NEG) Ur Leukocyte Esterase (NEG) Urine RBC (0) /HPF Urine WBC (0-4) /HPF Ur Squamous Epith Cells /LPF Urine Bacteria /LPF Urine Test (NEGATIVE) COVID-19 (ANA) Negative (Negative) COVID-19 Clin Com See Note Influenza Type A (PADMINI) (Negative) Influenza Type B (PADMINI) (Negative) Influenza A & B Note Discharge Plan Discharge Clinical Impression: Diabetes, Hyperglycemia Patient Disposition: Home, Self-Care Instructions: Diabetes and Nutrition (ED), Diabetic Hyperglycemia (ED) Additional Instructions: 1. Resume all home medications as prescribed. 2. Continue to drink plenty of fluids and keep your scheduled appointment tomorrow morning with your primary care provider. Return to the ER for any worsening of symptoms. Prescriptions: No Action Myrbetriq 50 mg tablet extended release 24 hr 1 tab PO DAILY 0RF atorvastatin 20 mg tablet 1 tab PO DAILY 0RF clozapine 100 mg tablet 1 tab PO DAILY 0RF metoprolol succinate 50 mg tablet extended release 24 hr 1 tab PO DAILY 0RF clonazepam 1 mg tablet 1 tab PO BID 0RF metformin 1,000 mg tablet 1 tab PO BID 0RF lisinopril 40 mg tablet 1 tab PO DAILY 0RF hydroxyzine pamoate 25 mg capsule 1 cap PO DAILY PRN (Reason: Anxiety) 0RF clozapine 50 mg tablet 1 tab PO DAILY 0RF Linzess 145 mcg capsule 1 - 2 cap PO DAILY 0RF pantoprazole 40 mg tablet,delayed release (DR/EC) 40 mg PO BID@0630,1630 0RF Referrals: Ann-Marie Camacho MD [Primary Care Provider] -
[2021-12-25 22:43] LABS: Bacteria Urine TRACE /LPF; RBC Urine 0-2 /HPF (0); Squamous Epithelial Cell Urine TRACE /LPF; WBC Urine 0-2 /HPF (0-4)
[2021-12-25 22:45] LABS: COVID-19 Test Negative (Negative); IDNOW Serial# 16C4AD1C; Influenza A Negative (Negative); Influenza B2 Negative (Negative)
== END 2021-12-25 23:07 | disposition home or self-care (01) ==
PROVIDERS: Emergency Provider Student in an Organized Health Care Education/Training Program; PCP Internal Medicine
DX: E11.65 Type 2 diabetes mellitus with hyperglycemia (principal); R42 Dizziness and giddiness; H53.8 Other visual disturbances; Z20.822 Contact with and (suspected) exposure to COVID-19; Z79.84 Long term (current) use of oral hypoglycemic drugs; Z79.899 Other long term (current) drug therapy
CPT/HCPCS: 36415; 80048; 81001; 81025; 82947; 85025; 87502; 87635; 93005; 99283; 99284

== ENCOUNTER 2022-01-05 10:39 | Outpatient (REF) | payer BC, MEDICARE, MEDICAID, SELFPAY ==
[2022-01-05 11:47] LABS: White Blood Count 8.9 X10*3/uL (4.8-10.8)
== END 2022-01-05 10:40 | disposition home or self-care (01) ==
LOC: HO.LABR 10:39
PROVIDERS: PCP Internal Medicine; Visit Provider Psychiatry & Neurology Psychiatry
DX: Z79.899 Other long term (current) drug therapy (principal)
CPT/HCPCS: 36415; 85048

== ENCOUNTER 2022-01-06 19:15 | Emergency (ER) | payer MEDICARE, MEDICAID, SELFPAY ==
[2022-01-06 20:53] VITALS: BP 149/78; PULSE 95; RESP 18; TEMP 36.1; O2SAT 98; BMI 47.8
[2022-01-06 21:10] LABS: Appearance Urine CLEAR; Color Urine YELLOW; Glucose Urine UA NEG (NEG); Leukocyte Esterase Urine NEG (NEG); Nitrite Urine NEG (NEG); PH 6.5 (5.0-8.0); Urine Blood NEG (NEG); Urine Ketones NEG (NEG); Urine Protein NEG (NEG-TRACE)
[2022-01-06 21:13] LABS: UPreg QC Valid YES; Urine Pregnancy NEGATIVE (NEGATIVE)
[2022-01-06 22:31] LABS: MANUAL DIFF FLAG NO
[2022-01-06 22:39] LABS: Basophils Percent Auto 0.3 % (0-2); Eosinophils Absolute Auto 0.1 X10*3/uL (0.0-0.4); Eosinophils Percent Auto 0.8 % (0-4); Hematocrit 41.7 % (37.0-47.0); Hemoglobin 13.7 g/dl (12.0-16.0); Imm Gran Abs Auto 0.03 X10*3/uL (0.00-0.03); Imm Gran Pct Auto 0.3 % (0.0-0.4); Lymphocytes Absolute Auto 3.5 X10*3/uL (1.2-4.9); Lymphocytes Percent Auto 29.8 % (20-40); Mean Corpuscular HGB Conc 32.9 g/dl (31.0-35.0); Mean Corpuscular Volume 91.2 fL (80.0-98.0); Mean Platelet Volume 9.9 fL (9.4-12.3); Monocytes Absolute Auto 0.6 X10*3/uL (0.1-1.2); Monocytes Percent Auto 5.1 % (2-11); Neutrophils Absolute Auto 7.4 x10*3/uL (2.0-8.3); Neutrophils Percent Auto 63.7 % (45-73); Platelet Count 257 X10*3/uL (160-400); Red Blood Count 4.57 X10*6/uL (4.20-5.50); Red Cell Distribution Width 13.1 % (11.0-16.0); White Blood Count 11.7 X10*3/uL (4.8-10.8)
[2022-01-06 22:56] LABS: Alanine Aminotransferase 38 U/L (0-31); Albumin Level 4.4 g/dL (3.5-5.0); Alkaline Phosphatase 85 U/L (39-117); Anion Gap 12 (12-20); Aspartate Amino Transferase 21 U/L (5-31); Bilirubin Total 0.4 mg/dL (0.0-1.0); Blood Urea Nitrogen 10 mg/dL (9-16); Calcium 9.8 mg/dL (8.4-10.2); Carbon Dioxide 27 mmol/L (22-29); Chloride 103 mmol/L (96-108); Creatinine Clr Calc Pharmacy 128.6; Estimated Glomerular Filt Rate > 60; Glucose Random 151 mg/dL (60-115); Lipase 24 U/L (8-78); Potassium 4.2 mmol/L (3.3-5.1); Sodium 138 mmol/L (135-145); Total Protein 7.3 g/dL (6.5-8.0)
--- NOTE | 2022-01-07 00:21 | ED_ITS ---
HPI - Abdominal Pain General Chief Complaint: Abdominal Pain Stated Complaint: abdominal pain Time Seen by Provider: 01/07/22 00:21 Source: patient Mode of arrival: ambulatory Limitations: no limitations History of Present Illness HPI narrative: Patient history of IBS with chronic abdominal pain had CT scan last week for same pain comes here for pain for last 1 week in mostly left upper quadrant cramping pain having loose bowels increase the dose of metformin slight nausea no fever no chills no blood in the stool patient had 2 CT scans since 09/16 for similar pain Related Data Home Medications Medication Instructions Recorded Confirmed pantoprazole 40 mg tablet,delayed 40 mg PO BID@0630,1630 11/22/20 11/13/21 release mirabegron 50 mg tablet,extended 1 tab PO DAILY 06/19/21 11/13/21 release 24 hr (Myrbetriq) atorvastatin 20 mg tablet 1 tab PO DAILY 11/13/21 11/13/21 clonazepam 1 mg tablet 1 tab PO BID 11/13/21 11/13/21 clozapine 100 mg tablet 1 tab PO DAILY 11/13/21 11/13/21 clozapine 50 mg tablet 1 tab PO DAILY 11/13/21 11/13/21 hydroxyzine pamoate 25 mg capsule 1 cap PO DAILY PRN 11/13/21 11/13/21 linaclotide 145 mcg capsule 1 - 2 cap PO DAILY 11/13/21 11/13/21 (Linzess) lisinopril 40 mg tablet 1 tab PO DAILY 11/13/21 11/13/21 metformin 1,000 mg tablet 1 tab PO BID 11/13/21 11/13/21 metoprolol succinate 50 mg 1 tab PO DAILY 11/13/21 11/13/21 tablet,extended release 24 hr Previous Rx's Medication Instructions Recorded dicyclomine 20 mg tablet 20 mg PO QID PRN #20 tab 01/07/22 Allergies Allergy/AdvReac Type Severity Reaction Status Date / Time Penicillins [PENICILLINS] Allergy Severe ANAPHYLAXIS Verified 10/26/21 15:55 adhesive [ADHESIVE] Allergy Unknown RASH Verified 10/26/21 15:55 artichoke [ARTICHOKE] Allergy Unknown RASH Verified 10/26/21 15:55 carbamazepine [From TEGRETOL] Allergy Unknown MIGRAINES Verified 10/26/21 15:55 cariprazine [From VRAYLAR] Allergy Unknown LEG CRAMPS Verified 10/26/21 15:55 fentanyl [FENTANYL] Allergy Unknown RASH Verified 10/26/21 15:55 lamotrigine [From LAMICTAL] Allergy Unknown RASH Verified 10/26/21 15:55 lithium [LITHIUM] AdvReac Severe tremor and Verified 10/26/21 15:55 falls Review of Systems Review of Systems Yes all other systems are reviewed and are negative COUNT INCLUDES [facility] Past Medical History Medical History Anxiety Bipolar disease, chronic Depression GERD (gastroesophageal reflux disease) High cholesterol Hypertension Migraines Morbid obesity with BMI of 45.0-49.9, adult Obstructive sleep apnea PCOS (polycystic ovarian syndrome) Pre-diabetes Renal colic Thrombosed external hemorrhoid Surgical History History of dilation and curettage Family History Family History Other Breast cancer Social History Social History Alcohol intake: never Patient Tobacco Use Status: Never used Tobacco Substance Use Type: Marijuana Advance Directives: No Advance Directives Information Provided: No Physical Exam ED Vital Signs: Vital Signs - 24 hr 01/06/22 20:53 01/07/22 00:44 Temperature 97 F 97.0 F Pulse Rate 95 90 Respiratory Rate 18 17 Blood Pressure 149/78 H 128/79 Pulse Oximetry 98 94 BMI result Body Mass Index 47.8 Appearance: Alert. Oriented X3. No acute distress. Eyes: No pallor/ icterus ENT: Pharynx normal. Oral Mucosa moist Neck: Normal inspection. Neck supple. CVS: Normal heart rate and rhythm. Pulses normal. Respiratory: No respiratory distress. Equal air entry bilateral, no wheezing/rales/rhonchi Abdomen: Soft and mild discomfort left upper quadrant no rebound tenderness or guarding Bowel sounds are present, no mass palpable, no CVA tenderness Skin: Skin warm and dry. Normal skin color. Normal skin turgor. Extremities: No lower extremity edema. No calf tenderness Neuro: Oriented X 3. MDM - Abdominal Pain MDM Narrative Medical decision making narrative: Patient has history of chronic abdominal pain with IBS with lab stable discharge patient home on dicyclomine Lab Data Attestation: I reviewed the patient's lab results. Result diagrams: 01/06/22 22:24 01/06/22 22:24 Labs: Lab Results 01/06/22 01/06/22 01/06/22 Range/Units 20:50 20:50 22:24 WBC 11.7 H (4.8-10.8) X10*3/uL RBC 4.57 (4.20-5.50) X10*6/uL Hgb 13.7 (12.0-16.0) g/dl Hct 41.7 (37.0-47.0) % MCV 91.2 (80.0-98.0) fL MCH 30.0 (27.0-33.0) pg MCHC 32.9 (31.0-35.0) g/dl RDW 13.1 (11.0-16.0) % Plt Count 257 (160-400) X10*3/uL MPV 9.9 (9.4-12.3) fL Immature Gran % (Auto) 0.3 (0.0-0.4) % Neut % (Auto) 63.7 (45-73) % Lymph % (Auto) 29.8 (20-40) % [place] % (Auto) 5.1 (2-11) % Eos % (Auto) 0.8 (0-4) % Baso % (Auto) 0.3 (0-2) % Lymph # (Auto) 3.5 (1.2-4.9) X10*3/uL [place] # (Auto) 0.6 (0.1-1.2) X10*3/uL Eos # (Auto) 0.1 (0.0-0.4) X10*3/uL Baso # (Auto) 0.0 (0.0-0.2) X10*3/uL Abs Immat Gran (auto) 0.03 (0.00-0.03) X10*3/uL Absolute Neuts (auto) 7.4 (2.0-8.3) x10*3/uL Absolute Nucleated RBC 0.000 (0.0-0.012) X10*3/uL Nucleated RBC % (auto) 0.0 (0.0-0.2) /100WBC Sodium (135-145) mmol/L Potassium (3.3-5.1) mmol/L Chloride (96-108) mmol/L Carbon Dioxide (22-29) mmol/L Anion Gap (12-20) BUN (9-16) mg/dL Creatinine (0.5-1.4) mg/dL Estim Creat Clear Calc Estimated GFR Random Glucose (60-115) mg/dL Calcium (8.4-10.2) mg/dL Total Bilirubin (0.0-1.0) mg/dL AST (5-31) U/L ALT (0-31) U/L Alkaline Phosphatase (39-117) U/L Total Protein (6.5-8.0) g/dL Albumin (3.5-5.0) g/dL Lipase (8-78) U/L Urine Color YELLOW Urine Appearance CLEAR Urine pH 6.5 (5.0-8.0) Ur Specific [place] 1.010 (1.005-1.025) Urine Protein NEG (NEG-TRACE) MG/DL Urine Glucose (UA) NEG (NEG) MG/DL Urine Ketones NEG (NEG) MG/DL Urine Blood NEG (NEG) Urine Nitrite NEG (NEG) Ur Leukocyte Esterase NEG (NEG) Urine Test NEGATIVE (NEGATIVE) 01/06/22 Range/Units 22:24 WBC (4.8-10.8) X10*3/uL RBC (4.20-5.50) X10*6/uL Hgb (12.0-16.0) g/dl Hct (37.0-47.0) % MCV (80.0-98.0) fL MCH (27.0-33.0) pg MCHC (31.0-35.0) g/dl RDW (11.0-16.0) % Plt Count (160-400) X10*3/uL MPV (9.4-12.3) fL Immature Gran % (Auto) (0.0-0.4) % Neut % (Auto) (45-73) % Lymph % (Auto) (20-40) % [place] % (Auto) (2-11) % Eos % (Auto) (0-4) % Baso % (Auto) (0-2) % Lymph # (Auto) (1.2-4.9) X10*3/uL [place] # (Auto) (0.1-1.2) X10*3/uL Eos # (Auto) (0.0-0.4) X10*3/uL Baso # (Auto) (0.0-0.2) X10*3/uL Abs Immat Gran (auto) (0.00-0.03) X10*3/uL Absolute Neuts (auto) (2.0-8.3) x10*3/uL Absolute Nucleated RBC (0.0-0.012) X10*3/uL Nucleated RBC % (auto) (0.0-0.2) /100WBC Sodium 138 (135-145) mmol/L Potassium 4.2 (3.3-5.1) mmol/L Chloride 103 (96-108) mmol/L Carbon Dioxide 27 (22-29) mmol/L Anion Gap 12 (12-20) BUN 10 (9-16) mg/dL Creatinine 0.85 (0.5-1.4) mg/dL Estim Creat Clear Calc 128.6 Estimated GFR > 60 Random Glucose 151 H (60-115) mg/dL Calcium 9.8 (8.4-10.2) mg/dL Total Bilirubin 0.4 (0.0-1.0) mg/dL AST 21 (5-31) U/L ALT 38 H (0-31) U/L Alkaline Phosphatase 85 (39-117) U/L Total Protein 7.3 (6.5-8.0) g/dL Albumin 4.4 (3.5-5.0) g/dL Lipase 24 (8-78) U/L Urine Color Urine Appearance Urine pH (5.0-8.0) Ur Specific [place] (1.005-1.025) Urine Protein (NEG-TRACE) MG/DL Urine Glucose (UA) (NEG) MG/DL Urine Ketones (NEG) MG/DL Urine Blood (NEG) Urine Nitrite (NEG) Ur Leukocyte Esterase (NEG) Urine Test (NEGATIVE) Discharge Plan Discharge Clinical Impression: Irritable bowel syndrome Patient Disposition: Home, Self-Care Instructions: Irritable Bowel Syndrome (ED) Additional Instructions: Drink plenty of fluid Take dicyclomine as prescribed Follow-up with PCP/gastroenteritis Prescriptions: New dicyclomine 20 mg tablet 20 mg PO QID PRN (Reason: abdominal pain) Qty: 20 0RF No Action Myrbetriq 50 mg tablet extended release 24 hr 1 tab PO DAILY 0RF atorvastatin 20 mg tablet 1 tab PO DAILY 0RF clozapine 100 mg tablet 1 tab PO DAILY 0RF metoprolol succinate 50 mg tablet extended release 24 hr 1 tab PO DAILY 0RF clonazepam 1 mg tablet 1 tab PO BID 0RF metformin 1,000 mg tablet 1 tab PO BID 0RF lisinopril 40 mg tablet 1 tab PO DAILY 0RF hydroxyzine pamoate 25 mg capsule 1 cap PO DAILY PRN (Reason: Anxiety) 0RF clozapine 50 mg tablet 1 tab PO DAILY 0RF Linzess 145 mcg capsule 1 - 2 cap PO DAILY 0RF pantoprazole 40 mg tablet,delayed release (DR/EC) 40 mg PO BID@0630,1630 0RF
--- NOTE | 2022-01-07 00:36 | PC.NURSE ---
ZOFRAN WAS ORDERED IN TRIAGE AND NOT DOCUMENTED.
[2022-01-07] MEDS: Dicyclomine HCl 10 MG CAPSULE 20 MG PO (00:42)
[2022-01-07 00:44] VITALS: BP 128/79; PULSE 90; RESP 17; TEMP 36.1; O2SAT 94
== END 2022-01-07 01:27 | disposition home or self-care (01) ==
PROVIDERS: Emergency Provider Internal Medicine
DX: K58.9 Irritable bowel syndrome, unspecified (principal); I10 Essential (primary) hypertension; R73.03 Prediabetes; Z79.84 Long term (current) use of oral hypoglycemic drugs
CPT/HCPCS: 36415; 80053; 81003; 81025; 83690; 85025; 99283

== ENCOUNTER 2022-02-01 08:40 | Outpatient (REF) | payer BC, MEDICARE, MEDICAID, SELFPAY ==
[2022-02-01 09:05] LABS: Neutrophils Absolute Auto 7.6 x10*3/uL (2.0-8.3); White Blood Count 10.4 X10*3/uL (4.8-10.8)
== END 2022-02-01 08:41 | disposition home or self-care (01) ==
LOC: HO.LABR 08:40
PROVIDERS: PCP Internal Medicine; Visit Provider Psychiatry & Neurology Psychiatry
DX: Z79.899 Other long term (current) drug therapy (principal)
CPT/HCPCS: 36415; 85048

== ENCOUNTER 2022-02-21 14:41 | Emergency (ER) | payer BC, MEDICARE, MEDICAID, SELFPAY ==
--- NOTE | ~2022-02-21 | XR_ITS ---
EXAMINATION: XR CHEST CLINICAL INFORMATION: Chest pain COMPARISON: None TECHNIQUE: Frontal view of the chest was obtained. FINDINGS: No significant abnormality is noted involving the heart, lungs, mediastinum, bony thorax or soft tissues. XR/XR chest 1V IMPRESSION: Unremarkable chest examination.
--- NOTE | ~2022-02-21 | US_ITS ---
EXAMINATION: US ABDOMEN LIMITED CLINICAL INFORMATION: Right upper quadrant pain and tenderness.. COMPARISON: CT 12/22/2021 TECHNIQUE: Real-time imaging of the gallbladder. FINDINGS: GALLBLADDER: Sludge in the gallbladder lumen. No stones are seen. No wall thickening or edema. No pericholecystic fluid. COMMON BILE DUCT: Normal in caliber measuring 0.4 cm in diameter. FREE FLUID: None. OTHER: Incidental note of hepatic steatosis with focal fatty sparing along the gallbladder. US/US abdomen limited IMPRESSION: Gallbladder sludge. No inflammatory changes. No ductal dilatation.
--- NOTE | 2022-02-21 14:46 | ECG_ITS ---
Test Reason : gallbladder/chest pain Blood Pressure : / mmHG Vent. Rate : 090 BPM Atrial Rate : 090 BPM P-R Int : 180 ms QRS Dur : 086 ms QT Int : 360 ms P-R-T Axes : 041 020 040 degrees QTc Int : 440 ms Normal sinus rhythm Normal ECG When compared with ECG of 25-DEC-2021 15:10, No significant change was found Referred By: Generic ED Physician Electronically Signed By:THERESA HUTSON
[2022-02-21 14:47] VITALS: BP 148/78; PULSE 89; RESP 20; TEMP 36.8; O2SAT 96; BMI 50.4
[2022-02-21 15:07] LABS: MANUAL DIFF FLAG NO
[2022-02-21 15:16] LABS: Basophils Percent Auto 0.4 % (0-2); Eosinophils Absolute Auto 0.1 X10*3/uL (0.0-0.4); Eosinophils Percent Auto 0.8 % (0-4); Hematocrit 37.9 % (37.0-47.0); Hemoglobin 12.6 g/dl (12.0-16.0); Imm Gran Abs Auto 0.03 X10*3/uL (0.00-0.03); Imm Gran Pct Auto 0.3 % (0.0-0.4); Lymphocytes Absolute Auto 2.7 X10*3/uL (1.2-4.9); Lymphocytes Percent Auto 29.4 % (20-40); Mean Corpuscular HGB Conc 33.2 g/dl (31.0-35.0); Mean Corpuscular Hemoglobin 30.2 pg (27.0-33.0); Mean Corpuscular Volume 90.9 fL (80.0-98.0); Mean Platelet Volume 9.6 fL (9.4-12.3); Monocytes Absolute Auto 0.4 X10*3/uL (0.1-1.2); Monocytes Percent Auto 4.1 % (2-11); Neutrophils Absolute Auto 5.9 x10*3/uL (2.0-8.3); Platelet Count 267 X10*3/uL (160-400); Red Blood Count 4.17 X10*6/uL (4.20-5.50); Red Cell Distribution Width 13.7 % (11.0-16.0); White Blood Count 9.1 X10*3/uL (4.8-10.8)
[2022-02-21 15:25] LABS: Anion Gap 13 (12-20); Blood Urea Nitrogen 8 mg/dL (9-16); Calcium 8.8 mg/dL (8.4-10.2); Carbon Dioxide 24 mmol/L (22-29); Chloride 105 mmol/L (96-108); Estimated Glomerular Filt Rate > 60; Glucose Random 86 mg/dL (60-115); Lipase 23 U/L (8-78); Potassium 4.3 mmol/L (3.3-5.1); Sodium 138 mmol/L (135-145)
[2022-02-21 15:28] LABS: Troponin-I High Sensitivity < 3.5 ng/L (<3.5-17.0)
[2022-02-21 22:47] LABS: Glucose, Whole Blood 94 mg/dL (60-115)
--- NOTE | 2022-02-21 23:18 | ED.GENADULT ---
HPI - General Adult General Chief complaint: General Medical Stated complaint: CHEST PAIN, BODY PAIN Time Seen by Provider: 02/21/22 22:32 Source: patient Mode of arrival: ambulatory Limitations: no limitations History of Present Illness HPI narrative: 46-year-old female who presents emergency department for evaluation abdominal pain. The patient states approximately 1 or 2 weeks prior she was having lower abdominal cramping and leg cramping. She states she was seen at [facility] and had a CT scan which revealed sludge and gallstones in her gallbladder. The patient states that since that time she has had continuous nausea and occasional vomiting. She states the past 3 days she has had pain in her right upper abdominal region. She does not recall the onset of the pain but states that every time she eats, approximately 1-2 hours later she gets right upper quadrant abdominal pain that radiates to her right shoulder and to her back. The pain is now constant and is currently 8/10 and it is 8/10 at its worst. She states she has had nausea and multiple episodes of vomiting. She has also had diarrhea. Patient states that she has no frequency urgency or dysuria but sometimes when she wipes she notices that the toilet paper is pink. She states that she has seen a urologist for hematuria. She denied fever, chills, rhinorrhea, sore throat, cough, chest pain, shortness of breath. Related Data Home Medications Medication Instructions Recorded Confirmed pantoprazole 40 mg tablet,delayed 40 mg PO BID@0630,1630 11/22/20 11/13/21 release mirabegron 50 mg tablet,extended 1 tab PO DAILY 06/19/21 11/13/21 release 24 hr (Myrbetriq) atorvastatin 20 mg tablet 1 tab PO DAILY 11/13/21 11/13/21 clonazepam 1 mg tablet 1 tab PO BID anxiety 11/13/21 11/13/21 clozapine 100 mg tablet 1 tab PO DAILY 11/13/21 11/13/21 clozapine 50 mg tablet 1 tab PO DAILY 11/13/21 11/13/21 hydroxyzine pamoate 25 mg capsule 1 cap PO DAILY PRN Anxiety 11/13/21 11/13/21 linaclotide 145 mcg capsule 1 - 2 cap PO DAILY 11/13/21 11/13/21 (Linzess) lisinopril 40 mg tablet 1 tab PO DAILY 11/13/21 11/13/21 metformin 1,000 mg tablet 1 tab PO BID 11/13/21 11/13/21 metoprolol succinate 50 mg 1 tab PO DAILY 11/13/21 11/13/21 tablet,extended release 24 hr Previous Rx's Medication Instructions Recorded dicyclomine 20 mg tablet 20 mg PO QID PRN abdominal pain 01/07/22 #20 tabs oxycodone 5 mg tablet 5 mg PO Q4H PRN pain #10 tabs 02/22/22 Allergies Allergy/AdvReac Type Severity Reaction Status Date / Time Penicillins [PENICILLINS] Allergy Severe ANAPHYLAXIS Verified 10/26/21 15:55 adhesive [ADHESIVE] Allergy Unknown RASH Verified 10/26/21 15:55 artichoke [ARTICHOKE] Allergy Unknown RASH Verified 10/26/21 15:55 carbamazepine [From TEGRETOL] Allergy Unknown MIGRAINES Verified 10/26/21 15:55 cariprazine [From VRAYLAR] Allergy Unknown LEG CRAMPS Verified 10/26/21 15:55 fentanyl [FENTANYL] Allergy Unknown RASH Verified 10/26/21 15:55 lamotrigine [From LAMICTAL] Allergy Unknown RASH Verified 10/26/21 15:55 lithium [LITHIUM] AdvReac Severe tremor and Verified 10/26/21 15:55 falls Review of Systems Review of Systems: Yes all other systems are reviewed and are negative [facility] Past Medical History [facility] Narrative: Social history: She denies tobacco use. She occasionally drinks alcohol. She last strength alcohol 1-2 weeks prior. The patient uses marijuana edibles 3 to 4 times a week. Medical History Anxiety Bipolar disease, chronic Depression GERD (gastroesophageal reflux disease) High cholesterol Hypertension Migraines Morbid obesity with BMI of 45.0-49.9, adult Obstructive sleep apnea PCOS (polycystic ovarian syndrome) Pre-diabetes Renal colic Thrombosed external hemorrhoid Surgical History History of dilation and curettage Family History Family History Other Breast cancer Social History Social History Alcohol intake: never Patient Tobacco Use Status: Never used Tobacco Substance Use Type: Marijuana Advance Directives: No Advance Directives Information Provided: No Patient : No Physical Exam ED Vital Signs: Vital Signs - 24 hr 02/21/22 14:47 02/21/22 23:25 02/21/22 23:52 Temperature 98.2 F Pulse Rate 89 83 82 Respiratory Rate 20 16 20 Blood Pressure 148/78 H 145/81 H 151/89 H Pulse Oximetry 96 99 98 Oxygen Delivery Method Room Air Room Air Room Air BMI result Body Mass Index 50.4 Const Other: Very pleasant, cooperative, female patient, does not appear to be in distress, answers all questions appropriately, BMI is 50 Orientation/consciousness: oriented to person and oriented to place Limitations: no limitations HENMT Head: Yes normal to inspection, Yes normocephalic and Yes atraumatic Ears: external ears normal General nose exam: Normal external nose present Face and sinus: Yes normal facial exam Mouth: Normal oral and palatal mucosa present Throat: Yes posterior oropharynx normal Eyes General: appearance normal, both eyes and all related structures Pupils: Equal, round and reactive pupils present Neck Neck: Yes normal visual inspection, Yes no lymphadenopathy, Yes trachea midline and Yes supple Chest Chest palpation & inspection: normal inspection of the chest and normal palpation of entire chest wall Resp Effort & Inspection: normal respiratory effort and able to speak in complete sentences Auscultation: clear to auscultation bilaterally Cardio Rate: regular rate Rhythm: regular rhythm Heart sounds: S1 normal heart sound present, S2 normal heart sound present and no murmurs GI Inspection: Yes normal to inspection Palpation (GI): Soft to palpation, Tenderness to palpation present (GI) in the epigastrum (Moderate) and in the RUQ (Moderate) and no guarding Auscultation: normal bowel sounds General: Yes no CVA tenderness Back/Spine/Pelvis Back: no CVA tenderness Skin General skin exam: no rashes or lesions noted Neuro General: oriented to person and oriented to place Cranial nerves: Yes CN's II-XII intact bilaterally and Yes Equal, round and reactive pupils present Cognition (Neuro): normal cognition Motor exam (neuro): 5/5 motor strength present throughout Extrem General: Yes normal to inspection Psych Appearance: grossly normal Speech and movement: Normal speech and movement present Affect: normal affect Attitude: cooperative Thought process: Normal thought process present Thought content: Normal thought content present Course Course Course Narrative: 46-year-old female who presents emergency department for evaluation of right upper quadrant pain, nausea and vomiting x3 days. Patient had abdominal pain 1 or 2 weeks prior and was seen at [facility] and had a CT scan of the abdomen pelvis which revealed gallstones and sludge according to patient. The patient states that today's pain is 8/10 and the pain usually gets worse 1-2 hours after she eats. Vital signs were normal except for an elevated blood pressure of 148/78. Abdominal exam did reveal right upper quadrant and midepigastric tenderness. 0005: Laboratory evaluation revealed a normal CBC, CMP and lipase. Right upper quadrant ultrasound was ordered to evaluate the patient's pain. I will obtain a urine sample. Patient was treated with normal saline IV x1 L, morphine 4 mg IV and Zofran 4 mg IV. 0111: RUQ ultrasound revealed gallbladder sludge, no inflammatory changes noted and no ductal dilatation noted. Patient did have increased pain after the ultrasound and was given a 2nd dose of morphine 4 mg IV. I did discuss these findings with the patient. Given her normal laboratory evaluation, do not think that the patient has acute cholecystitis at this time but the patient may have a dysfunctional gallbladder I did discuss getting a HIDA scan as an outpatient. The patient was advised to follow-up with her surgeon or with her highway engineering technician for further evaluation. Patient was given a prescription for oxycodone for her pain. Medical Decision Making Lab Data Result diagrams: 02/21/22 15:01 02/21/22 15:01 Labs: Lab Results 02/21/22 02/21/22 02/21/22 Range/Units 15:01 15:01 15:01 WBC 9.1 (4.8-10.8) X10*3/uL RBC 4.17 L (4.20-5.50) X10*6/uL Hgb 12.6 (12.0-16.0) g/dl Hct 37.9 (37.0-47.0) % MCV 90.9 (80.0-98.0) fL MCH 30.2 (27.0-33.0) pg MCHC 33.2 (31.0-35.0) g/dl RDW 13.7 (11.0-16.0) % Plt Count 267 (160-400) X10*3/uL MPV 9.6 (9.4-12.3) fL Immature Gran % (Auto) 0.3 (0.0-0.4) % Neut % (Auto) 65.0 (45-73) % Lymph % (Auto) 29.4 (20-40) % [place] % (Auto) 4.1 (2-11) % Eos % (Auto) 0.8 (0-4) % Baso % (Auto) 0.4 (0-2) % Lymph # (Auto) 2.7 (1.2-4.9) X10*3/uL [place] # (Auto) 0.4 (0.1-1.2) X10*3/uL Eos # (Auto) 0.1 (0.0-0.4) X10*3/uL Baso # (Auto) 0.0 (0.0-0.2) X10*3/uL Abs Immat Gran (auto) 0.03 (0.00-0.03) X10*3/uL Absolute Neuts (auto) 5.9 (2.0-8.3) x10*3/uL Absolute Nucleated RBC 0.000 (0.0-0.012) X10*3/uL Nucleated RBC % (auto) 0.0 (0.0-0.2) /100WBC Sodium 138 (135-145) mmol/L Potassium 4.3 (3.3-5.1) mmol/L Chloride 105 (96-108) mmol/L Carbon Dioxide 24 (22-29) mmol/L Anion Gap 13 (12-20) BUN 8 L (9-16) mg/dL Creatinine 0.72 (0.5-1.4) mg/dL Estim Creat Clear Calc 147.0 Estimated GFR > 60 POC Glucose (60-115) mg/dL Random Glucose 86 (60-115) mg/dL Calcium 8.8 D (8.4-10.2) mg/dL Total Bilirubin 0.3 (0.0-1.0) mg/dL Direct Bilirubin < 0.2 (0.0-0.5) mg/dL AST 21 (5-31) U/L ALT 24 (0-31) U/L Alkaline Phosphatase 72 (39-117) U/L Troponin I High Sens < 3.5 (<3.5-17.0) ng/L Total Protein 6.8 (6.5-8.0) g/dL Albumin 4.2 (3.5-5.0) g/dL Lipase 23 (8-78) U/L Urine Color Urine Appearance Urine pH (5.0-8.0) Ur Specific [place] (1.005-1.025) Urine Protein (NEG-TRACE) MG/DL Urine Glucose (UA) (NEG) MG/DL Urine Ketones (NEG) MG/DL Urine Blood (NEG) Urine Nitrite (NEG) Ur Leukocyte Esterase (NEG) 02/21/22 02/22/22 Range/Units 21:22 01:03 WBC (4.8-10.8) X10*3/uL RBC (4.20-5.50) X10*6/uL Hgb (12.0-16.0) g/dl Hct (37.0-47.0) % MCV (80.0-98.0) fL MCH (27.0-33.0) pg MCHC (31.0-35.0) g/dl RDW (11.0-16.0) % Plt Count (160-400) X10*3/uL MPV (9.4-12.3) fL Immature Gran % (Auto) (0.0-0.4) % Neut % (Auto) (45-73) % Lymph % (Auto) (20-40) % [place] % (Auto) (2-11) % Eos % (Auto) (0-4) % Baso % (Auto) (0-2) % Lymph # (Auto) (1.2-4.9) X10*3/uL [place] # (Auto) (0.1-1.2) X10*3/uL Eos # (Auto) (0.0-0.4) X10*3/uL Baso # (Auto) (0.0-0.2) X10*3/uL Abs Immat Gran (auto) (0.00-0.03) X10*3/uL Absolute Neuts (auto) (2.0-8.3) x10*3/uL Absolute Nucleated RBC (0.0-0.012) X10*3/uL Nucleated RBC % (auto) (0.0-0.2) /100WBC Sodium (135-145) mmol/L Potassium (3.3-5.1) mmol/L Chloride (96-108) mmol/L Carbon Dioxide (22-29) mmol/L Anion Gap (12-20) BUN (9-16) mg/dL Creatinine (0.5-1.4) mg/dL Estim Creat Clear Calc Estimated GFR POC Glucose 94 (60-115) mg/dL Random Glucose (60-115) mg/dL Calcium (8.4-10.2) mg/dL Total Bilirubin (0.0-1.0) mg/dL Direct Bilirubin (0.0-0.5) mg/dL AST (5-31) U/L ALT (0-31) U/L Alkaline Phosphatase (39-117) U/L Troponin I High Sens (<3.5-17.0) ng/L Total Protein (6.5-8.0) g/dL Albumin (3.5-5.0) g/dL Lipase (8-78) U/L Urine Color YELLOW Urine Appearance CLEAR Urine pH 6.0 (5.0-8.0) Ur Specific [place] <= 1.005 (1.005-1.025) Urine Protein NEG (NEG-TRACE) MG/DL Urine Glucose (UA) NEG (NEG) MG/DL Urine Ketones NEG (NEG) MG/DL Urine Blood 1+ H (NEG) Urine Nitrite NEG (NEG) Ur Leukocyte Esterase NEG (NEG) Discharge Plan Discharge Clinical Impression: Abdominal pain Patient Disposition: Home, Self-Care Instructions: Abdominal Pain (ED) Additional Instructions: Your blood work included a complete blood count (CBC), basic metabolic panel (BMP) , liver panel and lipase. All of these tests were normal. You had no elevation in your liver tests or your lipase which is reassuring. You had an ultrasound of your right upper quadrant that revealed sludge in your gallbladder with no gallstones. There was no thickening of the gallbladder wall and there was no dilatation of the common bile duct, which is also reassuring. You received morphine 4 mg IV x2, Zofran 4 mg IV x1 and a L of normal saline IV. At this time, I do not have a clear cause for your right upper quadrant abdominal pain. It is possible that you have a dysfunctional gallbladder (a gallbladder that does not squeeze appropriately and empty appropriately). You will need a HIDA scan as an outpatient to help determine if your gallbladder is functioning normally. You should follow-up with either your highway engineering technician or your surgeon for further evaluation. Take Tylenol (acetaminophen) 500 mg pills, 2 pills every 4-6 hours as needed for pain. For pain not relieved by Tylenol take oxycodone 5 mg pills, 1 pill every 4 hours as needed for pain. Do not drive or work while taking this medication since they can cause sleepiness. Oxycodone is a narcotic medication that can be addicting. If you are concerned about addiction you can ask the pharmacist for less pills or do not get this prescription filled. Please return to the emergency department if your symptoms get worse or if you develop any symptoms that are concerning to you. Prescriptions: New oxycodone 5 mg tablet 5 mg PO Q4H PRN (Reason: pain) Qty: 10 0RF Rx Instructions: Patient may request partial fill; Partial Fill upon patient request. No Action Myrbetriq 50 mg tablet extended release 24 hr 1 tab PO DAILY dicyclomine 20 mg tablet 20 mg PO QID PRN (Reason: abdominal pain) Qty: 20 0RF atorvastatin 20 mg tablet 1 tab PO DAILY clozapine 100 mg tablet 1 tab PO DAILY metoprolol succinate 50 mg tablet extended release 24 hr 1 tab PO DAILY clonazepam 1 mg tablet 1 tab PO BID metformin 1,000 mg tablet 1 tab PO BID lisinopril 40 mg tablet 1 tab PO DAILY hydroxyzine pamoate 25 mg capsule 1 cap PO DAILY PRN (Reason: Anxiety) clozapine 50 mg tablet 1 tab PO DAILY Linzess 145 mcg capsule 1 - 2 cap PO DAILY pantoprazole 40 mg tablet,delayed release (DR/EC) 40 mg PO BID@0630,1630
[2022-02-21 23:25] VITALS: BP 145/81; PULSE 83; RESP 16; O2SAT 99
[2022-02-21 23:52] VITALS: BP 151/89; PULSE 82; RESP 20; O2SAT 98
[2022-02-22 00:03] LABS: Alanine Aminotransferase 24 U/L (0-31); Albumin Level 4.2 g/dL (3.5-5.0); Alkaline Phosphatase 72 U/L (39-117); Aspartate Amino Transferase 21 U/L (5-31); Bilirubin Direct < 0.2 mg/dL (0.0-0.5); Bilirubin Total 0.3 mg/dL (0.0-1.0); Total Protein 6.8 g/dL (6.5-8.0)
[2022-02-22] MEDS: 0.9 % Sodium Chloride 1,000 ML 999 ML IV (00:16)
[2022-02-22] MEDS: ondansetron HCL 4 MG/2 ML VIAL IVPUSH (00:16)
[2022-02-22] MEDS: Morphine Sulfate 4 MG/ML CARTRIDGE IVPUSH ×2 (00:16→01:01)
[2022-02-22 01:10] LABS: Appearance Urine CLEAR; Color Urine YELLOW; Glucose Urine UA NEG (NEG); Leukocyte Esterase Urine NEG (NEG); Nitrite Urine NEG (NEG); Specific Gravity - Urine <= 1.005 (1.005-1.025); UACC Culture Trigger NO; Urine Blood 1+ (NEG); Urine Ketones NEG (NEG); Urine Protein NEG (NEG-TRACE)
[2022-02-22 01:17] LABS: RBC Urine 0-2 /HPF (0); Squamous Epithelial Cell Urine 1+ /LPF; WBC Urine 0-2 /HPF (0-4)
[2022-02-22 01:18] LABS: Bacteria Urine 2+ /LPF
[2022-02-22 01:27] VITALS: BP 135/71; PULSE 78; RESP 16; O2SAT 94
== END 2022-02-22 01:45 | disposition home or self-care (01) ==
PROVIDERS: Emergency Provider Emergency Medicine Emergency Medical Services; PCP Internal Medicine
DX: R10.11 Right upper quadrant pain (principal); I10 Essential (primary) hypertension; E78.5 Hyperlipidemia, unspecified; F12.90 Cannabis use, unspecified, uncomplicated
CPT/HCPCS: 36415; 71045; 76705; 80048; 80076; 81001; 82947; 83690; 84484; 85025; 93005; 96361; 96374; 96375; 99284; J2270; J2405

== ENCOUNTER 2022-02-28 11:45 | Outpatient (REF) | payer BC, MEDICARE, MEDICAID, SELFPAY ==
[2022-02-28 12:02] LABS: MANUAL DIFF FLAG NO
[2022-02-28 12:35] LABS: Basophils Percent Auto 0.2 % (0-2); Eosinophils Absolute Auto 0.1 X10*3/uL (0.0-0.4); Eosinophils Percent Auto 0.8 % (0-4); Hematocrit 39.2 % (37.0-47.0); Hemoglobin 12.9 g/dl (12.0-16.0); Imm Gran Abs Auto 0.03 X10*3/uL (0.00-0.03); Imm Gran Pct Auto 0.3 % (0.0-0.4); Lymphocytes Percent Auto 22.9 % (20-40); Mean Corpuscular HGB Conc 32.9 g/dl (31.0-35.0); Mean Corpuscular Hemoglobin 30.1 pg (27.0-33.0); Mean Corpuscular Volume 91.6 fL (80.0-98.0); Mean Platelet Volume 10.1 fL (9.4-12.3); Monocytes Absolute Auto 0.4 X10*3/uL (0.1-1.2); Neut%MD 70.9 %; Neutrophils Absolute Auto 6.1 x10*3/uL (2.0-8.3); Neutrophils Absolute Auto 6.2 x10*3/uL (2.0-8.3); Neutrophils Percent Auto 71.8 % (45-73); Platelet Count 278 X10*3/uL (160-400); Red Blood Count 4.28 X10*6/uL (4.20-5.50); Red Cell Distribution Width 13.6 % (11.0-16.0); WBCANC 8.6 X10*3/uL; White Blood Count 8.6 X10*3/uL (4.8-10.8); White Blood Count 8.7 X10*3/uL (4.8-10.8)
[2022-02-28 12:42] LABS: Prothrombin Time 11.9 SEC (10.0-13.1)
== END 2022-02-28 11:46 | disposition home or self-care (01) ==
LOC: HO.LABR 11:45
PROVIDERS: PCP Internal Medicine; Visit Provider Clinical Nurse Specialist Psychiatric/Mental Health, Child & Adolescent
DX: F31.32 Bipolar disorder, current episode depressed, moderate (principal); Z79.899 Other long term (current) drug therapy
CPT/HCPCS: 36415; 85025; 85048; 85610

== ENCOUNTER 2022-04-11 10:24 | Outpatient (REF) | payer BC, MEDICARE, MEDICAID, SELFPAY ==
[2022-04-11 11:02] LABS: Hematocrit 38.8 % (37.0-47.0); Hemoglobin 12.8 g/dl (12.0-16.0); Mean Corpuscular Hemoglobin 30.3 pg (27.0-33.0); Mean Corpuscular Volume 91.9 fL (80.0-98.0); Platelet Count 275 X10*3/uL (160-400); Red Blood Count 4.22 X10*6/uL (4.20-5.50); Red Cell Distribution Width 13.5 % (11.0-16.0); White Blood Count 9.3 X10*3/uL (4.8-10.8)
[2022-04-11 12:41] LABS: Basophils Percent Auto 0.3 % (0-2); Eosinophils Percent Auto 0.6 % (0-4); Imm Gran Pct Auto 0.3 % (0.0-0.4); Lymphocytes Percent Auto 26.7 % (20-40); Monocytes Percent Auto 4.2 % (2-11); Neutrophils Percent Auto 67.9 % (45-73)
[2022-04-11 12:48] LABS: MANUAL DIFF FLAG NO
[2022-04-11 12:56] LABS: Eosinophils Absolute Auto 0.1 X10*3/uL (0.0-0.4); Imm Gran Abs Auto 0.03 X10*3/uL (0.00-0.03); Lymphocytes Absolute Auto 2.4 X10*3/uL (1.2-4.9); Monocytes Absolute Auto 0.4 X10*3/uL (0.1-1.2); Neutrophils Absolute Auto 6.4 x10*3/uL (2.0-8.3)
== END 2022-04-11 10:25 | disposition home or self-care (01) ==
LOC: HO.LABR 10:24
PROVIDERS: PCP Internal Medicine; Visit Provider Clinical Nurse Specialist Psychiatric/Mental Health, Child & Adolescent
DX: F31.32 Bipolar disorder, current episode depressed, moderate (principal); Z79.899 Other long term (current) drug therapy
CPT/HCPCS: 36415; 85007; 85025; 85027

== ENCOUNTER 2022-04-17 18:09 | Emergency (ER) | payer BC, MEDICARE, MEDICAID, SELFPAY ==
[2022-04-17 18:53] VITALS: BP 134/79; PULSE 95; RESP 17; TEMP 36.8; O2SAT 98; BMI 49.4
--- NOTE | 2022-04-17 18:58 | PC.NURSE ---
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
[2022-04-17 20:26] LABS: MANUAL DIFF FLAG NO
--- NOTE | 2022-04-17 20:29 | ECG_ITS ---
Test Reason : CP Blood Pressure : / mmHG Vent. Rate : 081 BPM Atrial Rate : 081 BPM P-R Int : 212 ms QRS Dur : 090 ms QT Int : 392 ms P-R-T Axes : 049 017 054 degrees QTc Int : 455 ms Sinus rhythm with 1st degree A-V block Otherwise normal ECG When compared with ECG of 21-FEB-2022 14:52, [place] interval has increased Referred By: Octavio Aguilar Electronically Signed By:EMMANUELLE EHAD
[2022-04-17 20:30] LABS: Appearance Urine Clear; Color Urine Yellow; Glucose Urine UA Negative (Negative); Leukocyte Esterase Urine Negative (Negative); Nitrite Urine Negative (Negative); PH 6.5 (5.0-8.0); Urine Blood Negative (Negative); Urine Ketones Negative (Negative); Urine Protein Negative (Neg-Trace)
[2022-04-17 20:37] LABS: Basophils Absolute Auto 0.1 X10*3/uL (0.0-0.2); Basophils Percent Auto 0.5 % (0-2); Eosinophils Absolute Auto 0.1 X10*3/uL (0.0-0.4); Eosinophils Percent Auto 0.5 % (0-4); Hematocrit 36.9 % (37.0-47.0); Hemoglobin 12.3 g/dl (12.0-16.0); Imm Gran Abs Auto 0.02 X10*3/uL (0.00-0.03); Imm Gran Pct Auto 0.2 % (0.0-0.4); Lymphocytes Absolute Auto 3.1 X10*3/uL (1.2-4.9); Lymphocytes Percent Auto 29.9 % (20-40); Mean Corpuscular HGB Conc 33.3 g/dl (31.0-35.0); Mean Corpuscular Hemoglobin 30.8 pg (27.0-33.0); Mean Corpuscular Volume 92.3 fL (80.0-98.0); Mean Platelet Volume 9.6 fL (9.4-12.3); Monocytes Absolute Auto 0.5 X10*3/uL (0.1-1.2); Monocytes Percent Auto 5.1 % (2-11); Neutrophils Absolute Auto 6.6 x10*3/uL (2.0-8.3); Neutrophils Percent Auto 63.8 % (45-73); Platelet Count 231 X10*3/uL (160-400); Red Cell Distribution Width 13.3 % (11.0-16.0); White Blood Count 10.4 X10*3/uL (4.8-10.8)
[2022-04-17 20:47] LABS: COVID-19 Test Negative (Negative); IDNOW Serial# 16C4AD1C
[2022-04-17 20:50] LABS: Ethanol < 10 mg/dL
--- NOTE | 2022-04-17 20:51 | ED_ITS ---
HPI - Psych General Chief Complaint: Psychiatric Symptoms Stated Complaint: Crisis Time Seen by Provider: 04/17/22 19:25 Source: patient Mode of arrival: ambulatory Limitations: no limitations History of Present Illness HPI Narrative: This is a 46-year-old female past medical history significant for bipolar disease, JILLIAN, GERD, HLD, HTN, pre-diabetes, PCOS, h/o migraines/renal colic here with chest tightness, anxiety, depression and suicidal ideation x1 days. She states that upon waking up this morning she began having feelings of hurting herself, states that she was driving on the freeway and wanted to the side of the road. She tells me that she feels anxious, depressed and that her anxiety is causing her chest tightness. Feels like her typical anxiety. Denies homicidal ideation, however states that she would like to punching someone in the face. Denies visual, auditory, tactile hallucinations. Denies drug or alcohol abuse, however smokes about 1 pack of cigarettes per day. MD complaint: suicidal ideation, feels depressed and anxiety Onset (ago): day(s) (1) Duration: constant History of same: Yes Relieving factors: none Related Data Home Medications Medication Instructions Recorded Confirmed pantoprazole 40 mg tablet,delayed 40 mg PO BID@0630,1630 11/22/20 04/17/22 release mirabegron 50 mg tablet,extended 1 tab PO DAILY 06/19/21 04/17/22 release 24 hr (Myrbetriq) atorvastatin 20 mg tablet 1 tab PO DAILY 11/13/21 04/17/22 clonazepam 1 mg tablet 1 tab PO BID anxiety 11/13/21 04/17/22 clozapine 100 mg tablet 2 tab PO BEDTIME 11/13/21 04/17/22 lisinopril 40 mg tablet 1 tab PO DAILY 11/13/21 04/17/22 metformin 1,000 mg tablet 1 tab PO BID 11/13/21 04/17/22 metoprolol succinate 50 mg 1 tab PO DAILY 11/13/21 04/17/22 tablet,extended release 24 hr clonazepam 1 mg tablet 1 tab PO DAILY PRN Anxiety 04/17/22 04/17/22 sitagliptin 50 mg tablet (Januvia) 1 tab PO DAILY 04/17/22 04/17/22 Allergies Allergy/AdvReac Type Severity Reaction Status Date / Time Penicillins [PENICILLINS] Allergy Severe ANAPHYLAXIS Verified 04/17/22 18:50 adhesive [ADHESIVE] Allergy Unknown RASH Verified 04/17/22 18:50 artichoke [ARTICHOKE] Allergy Unknown RASH Verified 04/17/22 18:50 carbamazepine [From TEGRETOL] Allergy Unknown MIGRAINES Verified 04/17/22 18:50 cariprazine [From VRAYLAR] Allergy Unknown LEG CRAMPS Verified 04/17/22 18:50 fentanyl [FENTANYL] Allergy Unknown RASH Verified 04/17/22 18:50 lamotrigine [From LAMICTAL] Allergy Unknown RASH Verified 04/17/22 18:50 lithium [LITHIUM] AdvReac Severe tremor and Verified 04/17/22 18:50 falls Review of Systems Review of Systems: Constitutional : No Weight loss, No Fever, No Chills, No Fatigue, No Malaise ENT/Mouth : No sore throat, No Rhinorrhea Eyes: No Eye Pain, No Swelling, No Redness Cardiovascular : + Chest Pain, No SOB, No Dyspnea on Exertion, No Orthopnea, No Edema, No Palpitations Respiratory : No Cough, No Sputum, No Wheezing Gastrointestinal : No Nausea, No Vomiting, No Diarrhea, No Constipation, No abdominal Pain, No Hematochezia, No Melena Genitourinary : No Dysuria, No Urinary Frequency, No Hematuria, Musculoskeletal : No joint pain, No Myalgias, No Joint Swelling Skin : No Skin Lesions, No rash Neuro : No Weakness, No Numbness, No Dizziness, No Headache Psych : + Anxiety/Panic, No Depression, +SI, no HI All other systems reviewed and are negative Yes all other systems are reviewed and are negative [facility] Past Medical History Attestation statement: The following information was validated with the patient. Source: old records reviewed and nursing notes reviewed Medical History Anxiety Bipolar disease, chronic Depression GERD (gastroesophageal reflux disease) High cholesterol Hypertension Migraines Morbid obesity with BMI of 45.0-49.9, adult Obstructive sleep apnea PCOS (polycystic ovarian syndrome) Pre-diabetes Renal colic Thrombosed external hemorrhoid Surgical History History of cholecystectomy History of dilation and curettage Family History Family History Other Breast cancer Social History Social History Alcohol intake: never Patient Tobacco Use Status: Never used Tobacco Use of substances other than those prescribed or required for medical reasons: Yes Substance Use Type: Marijuana Advance Directives: No Advance Directives Information Provided: No Physical Exam Vital Signs: Vital Signs: Last Vital Signs Temp 98.2 F 04/17/22 18:53 Pulse 95 04/17/22 18:53 Resp 17 04/17/22 18:53 BP 134/79 04/17/22 18:53 Pulse Ox 98 04/17/22 18:53 O2 Del Method 04/17/22 18:53 BMI result Body Mass Index 49.4 vss Appearance: Alert.? Oriented X3.? No acute distress.? Head: Normocephalic, atraumatic, no step-offs or deformities Eyes: Pupils equal, round and reactive to light.? ENT: Pharynx normal.? Neck: Normal inspection.? Neck supple.? CVS: Normal heart rate and rhythm.? Pulses normal.? Respiratory: No respiratory distress.? Breath sounds normal.? Abdomen: Soft and nontender.? Skin: Skin warm and dry.? Normal skin color.? Normal skin turgor.? Extremities: No lower extremity edema.? No calf ttp. 5/5 strength to bilateral upper and lower extremities Back: No midline tenderness, no C-spine tenderness, full range of motion, no CVA tenderness bilaterally Neuro: Oriented X 3.? No motor deficit.? No sensory deficit. Course Reevaluation(s) Reevaluation #1: CBC within normal limits. Chemistry without electrolyte abnormalities requiring intervention. Negative salicylates acetaminophen and ethanol. Positive the marijuana. COVID negative. UA pending. Time: 21:00 Reevaluation #2: CARE team milan spoke to Dr. Wall recommends 1 mg po ativan at this time and to give 1 dose of clozapine at this time. Patient reports to care team her clozapine looked different and its making her scared. She is very future oriented. Denies SI and HI. Patient doesnt want inpatient at this time, she fells good to go home she will fu w/ [facility]. And this suggested medic ations will be administered here as long as patient has safe ride home. UA negative. Trop and EKG pending patient no longer complaining of CP. Time: 21:09 Reevaluation #3: Trop negative. EKG pending. 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 Tells me she will go to the pharmacy to ensure that the medications at home are the ones that her med prescriber prescribed. At this time I feel comfortable discharge home with prompt PCP follow-up. I did educate her on her 1st degree AV block. Patient is asymptomatic, no need for emergent management at this time. MDM - Psych MDM Narrative Medical decision making narrative: 1999 This is a 46-year-old female presenting with chest tightness, anxiety, depression, SI it x1 day. History of bipolar disease, JILLIAN, GERD, HLD, HTN, pre-diabetes, PCOS, h/o migraines/renal colic here with chest tightness/ pressure, anxiety, depression and suicidal ideation. Denies HI. Denies visual auditory or tactile hallucinations. Physical exam benign. Likely anxiety/ borderline personality d/o. Unlikley PE or ACS, perc negative. Plan at this time is medical clearance pending evaluation by our Behavioral te am. Differential Diagnosis Differential diagnosis: Likely suicidal ideation, depression and acute anxiety Medical Records Attestation: I reviewed the patient's medical records. Lab Data Result diagrams: 04/17/22 20:19 04/17/22 20:19 Labs: Lab Results 04/17/22 04/17/22 04/17/22 Range/Units 20:19 20:19 20:19 WBC 10.4 (4.8-10.8) X10*3/uL RBC 4.00 L (4.20-5.50) X10*6/uL Hgb 12.3 (12.0-16.0) g/dl Hct 36.9 L (37.0-47.0) % MCV 92.3 (80.0-98.0) fL MCH 30.8 (27.0-33.0) pg MCHC 33.3 (31.0-35.0) g/dl RDW 13.3 (11.0-16.0) % Plt Count 231 (160-400) X10*3/uL MPV 9.6 (9.4-12.3) fL Immature Gran % (Auto) 0.2 (0.0-0.4) % Neut % (Auto) 63.8 (45-73) % Lymph % (Auto) 29.9 (20-40) % Talbot % (Auto) 5.1 (2-11) % Eos % (Auto) 0.5 (0-4) % Baso % (Auto) 0.5 (0-2) % Lymph # (Auto) 3.1 (1.2-4.9) X10*3/uL Talbot # (Auto) 0.5 (0.1-1.2) X10*3/uL Eos # (Auto) 0.1 (0.0-0.4) X10*3/uL Baso # (Auto) 0.1 (0.0-0.2) X10*3/uL Abs Immat Gran (auto) 0.02 (0.00-0.03) X10*3/uL Absolute Neuts (auto) 6.6 (2.0-8.3) x10*3/uL Absolute Nucleated RBC 0.000 (0.0-0.012) X10*3/uL Nucleated RBC % (auto) 0.0 (0.0-0.2) /100WBC Sodium 142 (135-145) mmol/L Potassium 3.9 (3.3-5.1) mmol/L Chloride 104 (96-108) mmol/L Carbon Dioxide 27 (22-29) mmol/L Anion Gap 15 (12-20) BUN 11 (9-16) mg/dL Creatinine 0.70 (0.5-1.4) mg/dL Estim Creat Clear Calc 149.4 Estimated GFR > 60 Random Glucose 87 (60-115) mg/dL Calcium 8.7 (8.4-10.2) mg/dL Magnesium 1.9 (1.6-2.6) mg/dL Total Bilirubin 0.3 (0.0-1.0) mg/dL AST 17 (5-31) U/L ALT 24 (0-31) U/L Alkaline Phosphatase 70 (39-117) U/L Troponin I High Sens (<3.5-17.0) ng/L Total Protein 6.6 (6.5-8.0) g/dL Albumin 4.1 (3.5-5.0) g/dL Urine Color Urine Appearance Urine pH (5.0-8.0) Ur Specific Brandon (1.005-1.025) Urine Protein (Neg-Trace) mg/dL Urine Glucose (UA) (Negative) mg/dL Urine Ketones (Negative) mg/dL Urine Blood (Negative) Urine Nitrite (Negative) Ur Leukocyte Esterase (Negative) Salicylates < 5.0 L (15-30) mg/dL Urine Opiates Screen (Not Detect) Urine Fentanyl Screen (Not Detect) Acetaminophen < 1 (<30) mcg/mL Ur Barbiturates Screen (Not Detect) Ur Phencyclidine Scrn (Not Detect) Ur Amphetamines Screen (Not Detect) U Benzodiazepines Scrn (Not Detect) Urine Cocaine Screen (Not Detect) U Marijuana (THC) Screen (Not Detect) Ethyl Alcohol mg/dL COVID-19 (ANA) Negative (Negative) COVID-19 Clin Com See Note 04/17/22 04/17/22 04/17/22 Range/Units 20:19 20:19 20:19 WBC (4.8-10.8) X10*3/uL RBC (4.20-5.50) X10*6/uL Hgb (12.0-16.0) g/dl Hct (37.0-47.0) % MCV (80.0-98.0) fL MCH (27.0-33.0) pg MCHC (31.0-35.0) g/dl RDW (11.0-16.0) % Plt Count (160-400) X10*3/uL MPV (9.4-12.3) fL Immature Gran % (Auto) (0.0-0.4) % Neut % (Auto) (45-73) % Lymph % (Auto) (20-40) % Talbot % (Auto) (2-11) % Eos % (Auto) (0-4) % Baso % (Auto) (0-2) % Lymph # (Auto) (1.2-4.9) X10*3/uL Talbot # (Auto) (0.1-1.2) X10*3/uL Eos # (Auto) (0.0-0.4) X10*3/uL Baso # (Auto) (0.0-0.2) X10*3/uL Abs Immat Gran (auto) (0.00-0.03) X10*3/uL Absolute Neuts (auto) (2.0-8.3) x10*3/uL Absolute Nucleated RBC (0.0-0.012) X10*3/uL Nucleated RBC % (auto) (0.0-0.2) /100WBC Sodium (135-145) mmol/L Potassium (3.3-5.1) mmol/L Chloride (96-108) mmol/L Carbon Dioxide (22-29) mmol/L Anion Gap (12-20) BUN (9-16) mg/dL Creatinine (0.5-1.4) mg/dL Estim Creat Clear Calc Estimated GFR Random Glucose (60-115) mg/dL Calcium (8.4-10.2) mg/dL Magnesium (1.6-2.6) mg/dL Total Bilirubin (0.0-1.0) mg/dL AST (5-31) U/L ALT (0-31) U/L Alkaline Phosphatase (39-117) U/L Troponin I High Sens (<3.5-17.0) ng/L Total Protein (6.5-8.0) g/dL Albumin (3.5-5.0) g/dL Urine Color Yellow Urine Appearance Clear Urine pH 6.5 (5.0-8.0) Ur Specific Brandon 1.020 (1.005-1.025) Urine Protein Negative (Neg-Trace) mg/dL Urine Glucose (UA) Negative (Negative) mg/dL Urine Ketones Negative (Negative) mg/dL Urine Blood Negative (Negative) Urine Nitrite Negative (Negative) Ur Leukocyte Esterase Negative (Negative) Salicylates (15-30) mg/dL Urine Opiates Screen Not Detected (Not Detect) Urine Fentanyl Screen Not Detected (Not Detect) Acetaminophen (<30) mcg/mL Ur Barbiturates Screen Not Detected (Not Detect) Ur Phencyclidine Scrn Not Detected (Not Detect) Ur Amphetamines Screen Not Detected (Not Detect) U Benzodiazepines Scrn Not Detected (Not Detect) Urine Cocaine Screen Not Detected (Not Detect) U Marijuana (THC) Screen POSITIVE H (Not Detect) Ethyl Alcohol < 10 mg/dL COVID-19 (ANA) (Negative) COVID-19 Clin Com 04/17/22 Range/Units 20:19 WBC (4.8-10.8) X10*3/uL RBC (4.20-5.50) X10*6/uL Hgb (12.0-16.0) g/dl Hct (37.0-47.0) % MCV (80.0-98.0) fL MCH (27.0-33.0) pg MCHC (31.0-35.0) g/dl RDW (11.0-16.0) % Plt Count (160-400) X10*3/uL MPV (9.4-12.3) fL Immature Gran % (Auto) (0.0-0.4) % Neut % (Auto) (45-73) % Lymph % (Auto) (20-40) % Talbot % (Auto) (2-11) % Eos % (Auto) (0-4) % Baso % (Auto) (0-2) % Lymph # (Auto) (1.2-4.9) X10*3/uL Talbot # (Auto) (0.1-1.2) X10*3/uL Eos # (Auto) (0.0-0.4) X10*3/uL Baso # (Auto) (0.0-0.2) X10*3/uL Abs Immat Gran (auto) (0.00-0.03) X10*3/uL Absolute Neuts (auto) (2.0-8.3) x10*3/uL Absolute Nucleated RBC (0.0-0.012) X10*3/uL Nucleated RBC % (auto) (0.0-0.2) /100WBC Sodium (135-145) mmol/L Potassium (3.3-5.1) mmol/L Chloride (96-108) mmol/L Carbon Dioxide (22-29) mmol/L Anion Gap (12-20) BUN (9-16) mg/dL Creatinine (0.5-1.4) mg/dL Estim Creat Clear Calc Estimated GFR Random Glucose (60-115) mg/dL Calcium (8.4-10.2) mg/dL Magnesium (1.6-2.6) mg/dL Total Bilirubin (0.0-1.0) mg/dL AST (5-31) U/L ALT (0-31) U/L Alkaline Phosphatase (39-117) U/L Troponin I High Sens < 3.5 (<3.5-17.0) ng/L Total Protein (6.5-8.0) g/dL Albumin (3.5-5.0) g/dL Urine Color Urine Appearance Urine pH (5.0-8.0) Ur Specific Brandon (1.005-1.025) Urine Protein (Neg-Trace) mg/dL Urine Glucose (UA) (Negative) mg/dL Urine Ketones (Negative) mg/dL Urine Blood (Negative) Urine Nitrite (Negative) Ur Leukocyte Esterase (Negative) Salicylates (15-30) mg/dL Urine Opiates Screen (Not Detect) Urine Fentanyl Screen (Not Detect) Acetaminophen (<30) mcg/mL Ur Barbiturates Screen (Not Detect) Ur Phencyclidine Scrn (Not Detect) Ur Amphetamines Screen (Not Detect) U Benzodiazepines Scrn (Not Detect) Urine Cocaine Screen (Not Detect) U Marijuana (THC) Screen (Not Detect) Ethyl Alcohol mg/dL COVID-19 (ANA) (Negative) COVID-19 Clin Com Critical Care Time Critical Care Time Critical Care Time: No Discharge Plan Discharge Clinical Impression: Depression, Borderline personality disorder, Chest pain not due to acute coronary syndrome, Atrioventricular bloc first degree Patient Disposition: Home, Self-Care Instructions: Chest Pain (ED), Depression (ED), Borderline Personality Disorder (DC) Additional Instructions: Take your medications as prescribed. If you were prescribed antibiotics today, it is important that you take your medication to their entirety, do not skip any doses, do not finish them early. Follow-up with your primary care provider this week. Return to the emergency department with new or worsening symptoms. Such as fevers, chills, chest pain, shortness of breath, nausea, vomiting, dizziness, headache, vision changes, lethargy, suicidal or homicidal ideation In case of emergency call 911 Your noted to have a new first-degree heart block, please return if your being chest pain or shortness of breath, follow-up with your PCP and let them know of this finding and follow-up with Cardiology if needed . Prescriptions: No Action Myrbetriq 50 mg tablet extended release 24 hr 1 tab PO DAILY atorvastatin 20 mg tablet 1 tab PO DAILY clozapine 100 mg tablet 2 tab PO BEDTIME metoprolol succinate 50 mg tablet extended release 24 hr 1 tab PO DAILY clonazepam 1 mg tablet 1 tab PO BID metformin 1,000 mg tablet 1 tab PO BID lisinopril 40 mg tablet 1 tab PO DAILY Januvia 50 mg tablet 1 tab PO DAILY clonazepam 1 mg tablet 1 tab PO DAILY PRN (Reason: Anxiety) Rx Instructions: TAKE 1 TABLET BY MOUTH TWICE DAILY NEEDED. MAY USE 1 ADDITIONAL FOR ANXIETY DIRECTED pantoprazole 40 mg tablet,delayed release (DR/EC) 40 mg PO BID@0630,1630 [facility] [Provider Group] - 1 day Ann-Marie Camacho MD [Primary Care Provider] - 2 days Enzo Jay MD [Physician] - 2 weeks Stand Alone Forms: Work/School Release
[2022-04-17 20:53] LABS: Acetaminophen LAB < 1 mcg/mL (<30); Alanine Aminotransferase 24 U/L (0-31); Albumin Level 4.1 g/dL (3.5-5.0); Alkaline Phosphatase 70 U/L (39-117); Anion Gap 15 (12-20); Aspartate Amino Transferase 17 U/L (5-31); Bilirubin Total 0.3 mg/dL (0.0-1.0); Blood Urea Nitrogen 11 mg/dL (9-16); Calcium 8.7 mg/dL (8.4-10.2); Carbon Dioxide 27 mmol/L (22-29); Chloride 104 mmol/L (96-108); Creatinine Clr Calc Pharmacy 149.4; Estimated Glomerular Filt Rate > 60; Glucose Random 87 mg/dL (60-115); Magnesium 1.9 mg/dL (1.6-2.6); Potassium 3.9 mmol/L (3.3-5.1); Salicylate < 5.0 mg/dL (15-30); Sodium 142 mmol/L (135-145); Total Protein 6.6 g/dL (6.5-8.0)
[2022-04-17 20:54] LABS: Amphetamine Screen Urine Not Detected (Not Detect); Barbiturates, Urine Not Detected (Not Detect); Benzodiazepines Screen Urine Not Detected (Not Detect); Cannabinoid Screen Urine POSITIVE (Not Detect); Cocaine Screen Urine Not Detected (Not Detect); Fentanyl, urine Not Detected (Not Detect); Opiate Screen Urine Not Detected (Not Detect); Phencyclidine Screen Urine Not Detected (Not Detect)
--- NOTE | 2022-04-17 21:10 | PHA.MEDREC ---
Pharmacy Consult ? Medication Reconciliation Pharmacy has completed the medication reconciliation.
--- NOTE | 2022-04-17 21:28 | MHC.CARE ---
Pt is a 46 year old female who is very well known to the CARE Team. In the past, pt presented frequently to the ED with mental health concerns, though has been doing very well maintaining stability over the past year or so. Pt brought herself into the ED with concerns of her medication changing from oval to [place] tabs and expressed clozaril was not working as well, as she is having symptoms and feel all over the place. . Pt also states that she is feeling overwhelmed and anxious but is still future oriented talking about needing to clean her apartment and get ready for work. Based on prior knowledge of working with pt and reviewing chart and talking with pt and ED providers, the plan is to give the pt her normal dosage of clozaril and follow up with pharmacy and outpatient providers tomorrow morning. CARE Team spoke with Dr. Wall about this plan. CARE Team has also reached out to [facility] via email to prompt them to connect with pt about her medication concerns. Pt reponds well to active listening, encouragement and solution focused discussion with the care team. Pt is able to identify several steps she will take to decrease overall stress and overwhelming feelings.
[2022-04-17] MEDS: LORazepam 1 MG TABLET PO (21:43)
[2022-04-17 21:45] LABS: Troponin-I High Sensitivity < 3.5 ng/L (<3.5-17.0)
[2022-04-17] MEDS: cloZAPine 100 MG TABLET 200 MG PO (21:55)
== END 2022-04-17 22:12 | disposition home or self-care (01) ==
PROVIDERS: Physician Assistant; Emergency Provider Internal Medicine; PCP Internal Medicine
DX: F33.1 Major depressive disorder, recurrent, moderate (principal); R07.89 Other chest pain; I44.0 Atrioventricular block, first degree; Z20.822 Contact with and (suspected) exposure to COVID-19; Z79.899 Other long term (current) drug therapy
CPT/HCPCS: 36415; 80053; 80143; 80179; 80307; 81003; 82077; 83735; 84484; 85025; 87635; 93005; 99284; 99285

== ENCOUNTER 2022-04-22 17:05 | Emergency (ER) | payer BC, MEDICARE, MEDICAID, SELFPAY ==
[2022-04-22 17:10] VITALS: BP 140/83; PULSE 93; RESP 22; TEMP 36.8; O2SAT 97; BMI 49.8
--- NOTE | 2022-04-22 17:12 | ECG_ITS ---
Test Reason : CX PAIN Blood Pressure : / mmHG Vent. Rate : 091 BPM Atrial Rate : 091 BPM P-R Int : 184 ms QRS Dur : 088 ms QT Int : 360 ms P-R-T Axes : 040 014 053 degrees QTc Int : 442 ms Normal sinus rhythm Nonspecific T wave abnormality Abnormal ECG When compared with ECG of 17-APR-2022 20:46, Nonspecific T wave abnormality is now Present Referred By: Generic ED Physician Electronically Signed By:EMMANUELLE HEAD
--- NOTE | 2022-04-22 17:25 | ED_ITS ---
HPI - Chest Pain General Chief Complaint: Chest Pain Stated Complaint: SOB/Stabbing pain in back Time Seen by Provider: 04/22/22 17:25 Limitations: no limitations History of Present Illness HPI narrative: Patient history of anxiety depression been here multiple times was seen here on 04/17 comes here now for the sharp chest pain started yesterday evening patient describes the pain as sharp radiating to the back constant since 18:00 no shortness of breath no diaphoresis no nausea or vomiting feels right upper extremity also patient feels heart is fluttering off and on lasting for few seconds Related Data Home Medications Medication Instructions Recorded Confirmed pantoprazole 40 mg tablet,delayed 40 mg PO BID@0630,1630 11/22/20 04/17/22 release mirabegron 50 mg tablet,extended 1 tab PO DAILY 06/19/21 04/17/22 release 24 hr (Myrbetriq) atorvastatin 20 mg tablet 1 tab PO DAILY 11/13/21 04/17/22 clonazepam 1 mg tablet 1 tab PO BID anxiety 11/13/21 04/17/22 clozapine 100 mg tablet 2 tab PO BEDTIME 11/13/21 04/17/22 lisinopril 40 mg tablet 1 tab PO DAILY 11/13/21 04/17/22 metformin 1,000 mg tablet 1 tab PO BID 11/13/21 04/17/22 metoprolol succinate 50 mg 1 tab PO DAILY 11/13/21 04/17/22 tablet,extended release 24 hr clonazepam 1 mg tablet 1 tab PO DAILY PRN Anxiety 04/17/22 04/17/22 sitagliptin 50 mg tablet (Januvia) 1 tab PO DAILY 04/17/22 04/17/22 Allergies Allergy/AdvReac Type Severity Reaction Status Date / Time Penicillins [PENICILLINS] Allergy Severe ANAPHYLAXIS Verified 04/17/22 18:50 adhesive [ADHESIVE] Allergy Unknown RASH Verified 04/17/22 18:50 artichoke [ARTICHOKE] Allergy Unknown RASH Verified 04/17/22 18:50 carbamazepine [From TEGRETOL] Allergy Unknown MIGRAINES Verified 04/17/22 18:50 cariprazine [From VRAYLAR] Allergy Unknown LEG CRAMPS Verified 04/17/22 18:50 fentanyl [FENTANYL] Allergy Unknown RASH Verified 04/17/22 18:50 lamotrigine [From LAMICTAL] Allergy Unknown RASH Verified 04/17/22 18:50 lithium [LITHIUM] AdvReac Severe tremor and Verified 04/17/22 18:50 falls Review of Systems Review of Systems: Yes all other systems are reviewed and are negative [facility] Past Medical History Medical History Anxiety Bipolar disease, chronic Depression GERD (gastroesophageal reflux disease) High cholesterol Hypertension Migraines Morbid obesity with BMI of 45.0-49.9, adult Obstructive sleep apnea PCOS (polycystic ovarian syndrome) Pre-diabetes Renal colic Thrombosed external hemorrhoid Surgical History History of cholecystectomy History of dilation and curettage Family History Family History Other Breast cancer Social History Social History Alcohol intake: never Patient Tobacco Use Status: Current everyday Tobacco user Smoked in Last 30 Days: Yes Use of substances other than those prescribed or required for medical reasons: Yes Substance Use Type: Marijuana Advance Directives: No Advance Directives Information Provided: No Patient : No Physical Exam Vital Signs: Vital Signs: Last Vital Signs Temp 98.3 F 04/22/22 17:30 Pulse 89 04/22/22 17:30 Resp 20 04/22/22 17:30 BP 125/74 04/22/22 17:30 Pulse Ox 98 04/22/22 17:30 O2 Del Method 04/22/22 17:30 BMI result Body Mass Index 49.8 Appearance: Alert. Oriented X3. No acute distress. Eyes: No pallor or icterus ENT: Pharynx normal. Oral Mucosa moist Neck: Normal inspection. Neck supple. CVS: Normal heart rate and rhythm. Pulses normal. Respiratory: No respiratory distress. Equal air entry bilateral, no wheezing/rales/rhonchi Abdomen: Soft and nontender. Bowel sounds are present, no mass palpable, no CVA tenderness Skin: Skin warm and dry. Normal skin color. Normal skin turgor. Extremities: No lower extremity edema. No calf tenderness Neuro: Oriented X 3. No motor deficit. MDM - Chest Pain MDM Narrative Medical decision making narrative: Patient has atypical pain from more than 12 hours EKG without ischemic changes troponin negative history of similar pain in the past discharge patient home advised to follow with PCP Medical Records Data Attestation: I reviewed the patient's medical records. Lab Data Attestation: I reviewed the patient's lab results. Labs: Lab Results 04/22/22 Range/Units 18:03 Troponin I High Sens < 3.5 (<3.5-17.0) ng/L ECG Data ECG #1: Attestation: I personally reviewed and interpreted this ECG as follows: Interpretation: Normal sinus rhythm heart rate 91 beats per minute normal interval normal axis no acute ST wave changes no acute ischemic Discharge Plan Discharge Clinical Impression: Atypical chest pain Patient Disposition: Home, Self-Care Instructions: Chest Pain (ED) Additional Instructions: The chest pain likely not from the heart Tylenol/Motrin for the pain Follow with PCP/cosmetic chemist Prescriptions: No Action Myrbetriq 50 mg tablet extended release 24 hr 1 tab PO DAILY atorvastatin 20 mg tablet 1 tab PO DAILY clozapine 100 mg tablet 2 tab PO BEDTIME metoprolol succinate 50 mg tablet extended release 24 hr 1 tab PO DAILY clonazepam 1 mg tablet 1 tab PO BID metformin 1,000 mg tablet 1 tab PO BID lisinopril 40 mg tablet 1 tab PO DAILY Januvia 50 mg tablet 1 tab PO DAILY clonazepam 1 mg tablet 1 tab PO DAILY PRN (Reason: Anxiety) Rx Instructions: TAKE 1 TABLET BY MOUTH TWICE DAILY NEEDED. MAY USE 1 ADDITIONAL FOR ANXIETY DIRECTED pantoprazole 40 mg tablet,delayed release (DR/EC) 40 mg PO BID@0630,1630
[2022-04-22 17:30] VITALS: BP 125/74; PULSE 89; RESP 20; TEMP 36.8; O2SAT 98
[2022-04-22] MEDS: Aspirin 81 MG TAB.CHEW 162 MG PO (17:49)
[2022-04-22 18:31] LABS: Troponin-I High Sensitivity < 3.5 ng/L (<3.5-17.0)
[2022-04-22 19:29] VITALS: PULSE 84; RESP 20
[2022-04-22] MEDS: oxyCODONE HCl Immed Release 5 MG TABLET 10 MG PO (19:33)
== END 2022-04-22 19:38 | disposition home or self-care (01) ==
PROVIDERS: Emergency Provider Internal Medicine; PCP Internal Medicine
DX: R07.89 Other chest pain (principal); M54.50 Low back pain, unspecified; R06.02 Shortness of breath; F17.200 Nicotine dependence, unspecified, uncomplicated; Z71.6 Tobacco abuse counseling; Z79.899 Other long term (current) drug therapy
CPT/HCPCS: 36415; 84484; 93005; 99284; 99285

== ENCOUNTER 2022-04-26 12:32 | Emergency (ER) | payer BC, MEDICARE, MEDICAID, SELFPAY ==
--- NOTE | 2022-04-26 | ECG_ITS ---
Test Reason : chest pain Blood Pressure : / mmHG Vent. Rate : 095 BPM Atrial Rate : 095 BPM P-R Int : 188 ms QRS Dur : 088 ms QT Int : 344 ms P-R-T Axes : 046 016 050 degrees QTc Int : 432 ms Normal sinus rhythm Nonspecific T wave abnormality Abnormal ECG When compared with ECG of 22-APR-2022 17:16, No significant change was found Referred By: Generic ED Physician Electronically Signed By:EMMANUELLE HEAD
[2022-04-26 12:51] VITALS: BP 148/93; PULSE 107; RESP 18; TEMP 36.1; O2SAT 98; BMI 49.8
[2022-04-26 13:37] LABS: Appearance Urine Turbid; Color Urine Yellow; Glucose Urine UA Negative (Negative); Leukocyte Esterase Urine Negative (Negative); Nitrite Urine Negative (Negative); PH 6.5 (5.0-9.0); Urine Blood Negative (Negative); Urine Ketones Negative (Negative); Urine Protein Negative (Neg-Trace)
[2022-04-26 13:38] LABS: UPreg QC Valid YES; Urine Pregnancy NEGATIVE (NEGATIVE)
[2022-04-26 13:54] LABS: Amphetamine Screen Urine Not Detected (Not Detect); Barbiturates, Urine Not Detected (Not Detect); Benzodiazepines Screen Urine Not Detected (Not Detect); Cannabinoid Screen Urine POSITIVE (Not Detect); Cocaine Screen Urine Not Detected (Not Detect); Fentanyl, urine Not Detected (Not Detect); Opiate Screen Urine Not Detected (Not Detect); Phencyclidine Screen Urine Not Detected (Not Detect)
--- NOTE | 2022-04-26 13:55 | ED_ITS ---
HPI - Psych General Chief Complaint: Psychiatric Symptoms Stated Complaint: crisis Time Seen by Provider: 04/26/22 13:31 Source: patient Mode of arrival: ambulatory History of Present Illness HPI Narrative: 46-year-old female with a past medical history of anxiety, bipolar, depression, GERD, HLD, HTN, migraines, obesity, JILLIAN, PCOS presenting to the ED complaining of increased anxiety/stress and depression. Patient reports she does not like herself lately, admits to suicidal ideations with plan to light herself on fire or jump off a bridge. Reports she may feel better if she hurts others. Admits to mild chest discomfort unchanged from prior ED visit. Reports marijuana use, denies ETOH or other illicit substances. Denies abdominal pain, SOB MD complaint: suicidal ideation, feels depressed and anxiety Onset (ago): day(s) Related Data Home Medications Medication Instructions Recorded Confirmed pantoprazole 40 mg tablet,delayed 40 mg PO BID@0630,1630 11/22/20 04/17/22 release mirabegron 50 mg tablet,extended 1 tab PO DAILY 06/19/21 04/17/22 release 24 hr (Myrbetriq) atorvastatin 20 mg tablet 1 tab PO DAILY 11/13/21 04/17/22 clonazepam 1 mg tablet 1 tab PO BID anxiety 11/13/21 04/17/22 clozapine 100 mg tablet 2 tab PO BEDTIME 11/13/21 04/17/22 lisinopril 40 mg tablet 1 tab PO DAILY 11/13/21 04/17/22 metformin 1,000 mg tablet 1 tab PO BID 11/13/21 04/17/22 metoprolol succinate 50 mg 1 tab PO DAILY 11/13/21 04/17/22 tablet,extended release 24 hr clonazepam 1 mg tablet 1 tab PO DAILY PRN Anxiety 04/17/22 04/17/22 sitagliptin 50 mg tablet (Januvia) 1 tab PO DAILY 04/17/22 04/17/22 Allergies Allergy/AdvReac Type Severity Reaction Status Date / Time Penicillins [PENICILLINS] Allergy Severe ANAPHYLAXIS Verified 04/17/22 18:50 adhesive [ADHESIVE] Allergy Unknown RASH Verified 04/17/22 18:50 artichoke [ARTICHOKE] Allergy Unknown RASH Verified 04/17/22 18:50 carbamazepine [From TEGRETOL] Allergy Unknown MIGRAINES Verified 04/17/22 18:50 cariprazine [From VRAYLAR] Allergy Unknown LEG CRAMPS Verified 04/17/22 18:50 fentanyl [FENTANYL] Allergy Unknown RASH Verified 04/17/22 18:50 lamotrigine [From LAMICTAL] Allergy Unknown RASH Verified 04/17/22 18:50 lithium [LITHIUM] AdvReac Severe tremor and Verified 04/17/22 18:50 falls Review of Systems Review of Systems: Constitutional: No Fever, No Chills, No Fatigue, No Malaise ENT/Mouth: No Ear Pain, No sore throat, No Rhinorrhea, No Swallowing Difficulty Eyes: No Eye Pain, No Swelling, No Redness Cardiovascular: + Chest Pain, No SOB, No Dyspnea on Exertion, No Orthopnea, No Edema, No Palpitations Respiratory: No Cough, No Sputum, No Dyspnea Gastrointestinal: No Nausea, No Vomiting, No Diarrhea, No Constipation, No Abdominal pain Genitourinary: No Dysuria, No Urinary Frequency, No Hematuria, No Flank Pain Musculoskeletal: No joint pain, No Myalgias, No Joint Swelling Skin: No Skin Lesions, No rash Neuro: No Weakness, No Numbness, No Dizziness, No Headache Psych: + Anxiety/Panic, + Depression, + SI/HI, No AH/VH, No Social Issues Yes all other systems are reviewed and are negative Constitutional: Constitutional: Reports as per [facility] Past Medical History Attestation statement: The following information was validated with the patient. Medical History Anxiety Bipolar disease, chronic Depression GERD (gastroesophageal reflux disease) High cholesterol Hypertension Migraines Morbid obesity with BMI of 45.0-49.9, adult Obstructive sleep apnea PCOS (polycystic ovarian syndrome) Pre-diabetes Renal colic Thrombosed external hemorrhoid Surgical History History of cholecystectomy History of dilation and curettage Family History Family History Other Breast cancer Social History Social History Alcohol intake: never Patient Tobacco Use Status: Current everyday Tobacco user Use of substances other than those prescribed or required for medical reasons: Yes Substance Use Type: Marijuana Advance Directives: No Advance Directives Information Provided: No Patient : No Physical Exam Vital Signs: Vital Signs: Last Vital Signs Temp 96.9 F 04/26/22 12:51 Pulse 107 H 04/26/22 12:51 Resp 18 04/26/22 12:51 BP 148/93 H 04/26/22 12:51 Pulse Ox 98 04/26/22 12:51 O2 Del Method 04/26/22 12:51 BMI result Body Mass Index 49.8 Const: General: cooperative, healthy appearing and no acute distress Orientation/consciousness: patient oriented x3 Limitations: no limitations HEENT: Head: Yes normal to inspection and Yes atraumatic Ears: hearing g rossly normal bilaterally General nose exam: Normal external nose present Face and sinus: Yes normal facial exam Eyes: General: appearance normal, both eyes and all related structures EOM: EOMs intact bilaterally Neck: Neck: Yes normal visual inspection and Yes no meningeal signs Resp: Effort & Inspection: normal respiratory effort and no respiratory dist ress Auscultation: clear to auscultation bilaterally Cardio: Rate: regular rate Heart sounds: S1 normal heart sound present and S2 normal heart sound present GI: Inspection: Yes normal to inspection Palpation (GI): Soft to palpation, nontender, no guarding and not rigid Skin: Rashes: no rashes Wounds: no wounds Neuro: General: patient oriented x3, gait normal, tone normal, moves all extremities, no meningeal signs, no focal motor deficits and CN's II-XI intact bilaterally Gait exam (Neuro): Normal gait present Extrem: General: Yes normal to inspection Psych: Appearance: grossly normal Affect: Sad affect present Attitude: cooperative Thought process: Normal thought process present Thought content: Suicidality present, Homicidality present, no hallucinations and Depressive thoughts present Insight: Good insight present (Psych) Judgement: Good judgement present (Psych) Course Course Course Narrative: -tox screen positive for THC. Physician observation initiated at 14:55 as patient needs more time to be evaluated by crisis -1420--patient was evaluated by care team and cleared for discharge home. They will e-mail patient's outpatient providers. Patient denies SI/HI at present, is well known to our facility/teams. Patient is in agreement with plan MDM - Psych MDM Narrative Medical decision making narrative: 46-year-old female with a past medical history of anxiety, bipolar, depression, GERD, HLD, HTN, migraines, obesity, JILLIAN, PCOS presenting to the ED complaining of increased anxiety/stress and depression with SI and plan. Also reports a vague HI. On exam mildly tachycardic, EKG nonischemic, NAD, nontoxic appearing. Per chart review patient had full cardiac workup on 04/17 which is unremarkable. Low suspicion for ACS today. Plan: [facility]IP[place], crisis consult Differential Diagnosis Differential diagnosis: Likely homicidal ideation, suicidal ideation, depression, acute anxiety and mood disorder Medical Records Attestation: I reviewed the patient's medical records. Lab Data Attestation: I reviewed the patient's lab results. Labs: Lab Results 04/26/22 04/26/22 04/26/22 Range/Units 13:23 13:23 13:23 Urine Color Yellow Urine Appearance Turbid Urine pH 6.5 (5.0-9.0) Ur Specific [place] 1.010 (1.005-1.025) Urine Protein Negative (Neg-Trace) mg/dL Urine Glucose (UA) Negative (Negative) mg/dL Urine Ketones Negative (Negative) mg/dL Urine Blood Negative (Negative) Urine Nitrite Negative (Negative) Ur Leukocyte Esterase Negative (Negative) Urine Test (NEGATIVE) Urine Opiates Screen Not Detected (Not Detect) Urine Fentanyl Screen Not Detected (Not Detect) Ur Barbiturates Screen Not Detected (Not Detect) Ur Phencyclidine Scrn Not Detected (Not Detect) Ur Amphetamines Screen Not Detected (Not Detect) U Benzodiazepines Scrn Not Detected (Not Detect) Urine Cocaine Screen Not Detected (Not Detect) U Marijuana (THC) Screen POSITIVE H (Not Detect) COVID-19 (ANA) Negative (Negative) COVID-19 Clin Com See Note 04/26/22 Range/Units 13:23 Urine Color Urine Appearance Urine pH (5.0-9.0) Ur Specific [place] (1.005-1.025) Urine Protein (Neg-Trace) mg/dL Urine Glucose (UA) (Negative) mg/dL Urine Ketones (Negative) mg/dL Urine Blood (Negative) Urine Nitrite (Negative) Ur Leukocyte Esterase (Negative) Urine Test NEGATIVE (NEGATIVE) Urine Opiates Screen (Not Detect) Urine Fentanyl Screen (Not Detect) Ur Barbiturates Screen (Not Detect) Ur Phencyclidine Scrn (Not Detect) Ur Amphetamines Screen (Not Detect) U Benzodiazepines Scrn (Not Detect) Urine Cocaine Screen (Not Detect) U Marijuana (THC) Screen (Not Detect) COVID-19 (ANA) (Negative) COVID-19 Clin Com Discharge Plan Discharge Clinical Impression: Suicidal ideation, Depression, Acute anxiety Patient Disposition: Home, Self-Care Instructions: Anxiety (ED), Depression (ED) Additional Instructions: Your clear care team to return home. Continue home prescribed medications. If you have thoughts of hurting herself or others please return to the emergency department. Please call your outpatient providers Prescriptions: No Action Myrbetriq 50 mg tablet extended release 24 hr 1 tab PO DAILY atorvastatin 20 mg tablet 1 tab PO DAILY clozapine 100 mg tablet 2 tab PO BEDTIME metoprolol succinate 50 mg tablet extended release 24 hr 1 tab PO DAILY clonazepam 1 mg tablet 1 tab PO BID metformin 1,000 mg tablet 1 tab PO BID lisinopril 40 mg tablet 1 tab PO DAILY Januvia 50 mg tablet 1 tab PO DAILY clonazepam 1 mg tablet 1 tab PO DAILY PRN (Reason: Anxiety) Rx Instructions: TAKE 1 TABLET BY MOUTH TWICE DAILY NEEDED. MAY USE 1 ADDITIONAL FOR ANXIETY DIRECTED pantoprazole 40 mg tablet,delayed release (DR/EC) 40 mg PO BID@0630,1630 Referrals: [facility] [Provider Group] Ann-Marie Camacho MD [Primary Care Provider] -
[2022-04-26 13:58] LABS: COVID-19 Test Negative (Negative)
[2022-04-26] MEDS: clonazePAM 1 MG TABLET PO (15:32)
--- NOTE | 2022-04-26 16:23 | MHC.CARE ---
Pt is well known to the CARE Team including several visits to the ED for crisis. Pt presented to the ED reporting SI with a plan. Pt presented with increased anxiety and depression- which is her typical presentation on arrival. Pt received an Ativan to alleviate her anxiety which improved her sx's. Pt at baseline struggles with these symptoms. Pt self advocates for an increase in her clozaril reporting that she recently had a medication change and doesn't feel stable. pt denies current SI, states that she is feeling and wishes to return home. Pt talked about her struggles and overwhelming feelings at home. Pt has outpatient providers. She works part- time and is working tomorrow and has a planned card night at her friends house. Case was discussed with CARE loan coordinator SAL Woods and Belkis Edwards ED provider.
== END 2022-04-26 16:37 | disposition home or self-care (01) ==
PROVIDERS: Emergency Provider Student in an Organized Health Care Education/Training Program; PCP Internal Medicine
DX: R45.851 Suicidal ideations (principal); R45.850 Homicidal ideations; F31.9 Bipolar disorder, unspecified; F41.9 Anxiety disorder, unspecified; R00.0 Tachycardia, unspecified; Z20.822 Contact with and (suspected) exposure to COVID-19; I10 Essential (primary) hypertension; E78.5 Hyperlipidemia, unspecified; E66.01 Morbid (severe) obesity due to excess calories; Z68.42 Body mass index [BMI] 45.0-49.9, adult; F12.90 Cannabis use, unspecified, uncomplicated; F17.200 Nicotine dependence, unspecified, uncomplicated; Z79.02 Long term (current) use of antithrombotics/antiplatelets; Z79.84 Long term (current) use of oral hypoglycemic drugs; Z79.899 Other long term (current) drug therapy
CPT/HCPCS: 80307; 81003; 81025; 87635; 93005; 99284

== ENCOUNTER 2022-05-15 11:21 | Emergency (ER) | payer BC, MEDICARE, MEDICAID, SELFPAY ==
--- NOTE | ~2022-05-15 | XR_ITS ---
EXAMINATION: XR HIP, LEFT CLINICAL INFORMATION: Left hip pain after fall COMPARISON: 12/22/2021 TECHNIQUE: Two views of the left hip. FINDINGS: There is anatomic alignment across the hips with slight joint space narrowing. No acute fracture is seen. Sacroiliac joints and pubic symphysis are intact. XR/XR hip LT min 2V IMPRESSION: No acute findings identified.
[2022-05-15 11:31] VITALS: BP 144/94; PULSE 82; RESP 16; TEMP 36.4; O2SAT 95; BMI 49.8
[2022-05-15] MEDS: Acetaminophen 325 MG TABLET 650 MG PO (11:35)
--- NOTE | 2022-05-15 12:56 | ED_ITS ---
HPI - General Adult General Chief complaint: Fall Stated complaint: fall 05/15/22 L hip Time Seen by Provider: 05/15/22 12:55 Source: patient Mode of arrival: ambulatory Limitations: no limitations History of Present Illness HPI narrative: Patient is a 47 year old female presenting to the emergency department today with left hip pain after a fall. Patient states that she was walking to the hospital when she tripped and fell. Patient states that she is now having left hip pain. Patient denies hitting her head in the incident. Patient denies any loss of consciousness with the incident. Patient denies any dizziness, lightheadedness, abdominal pain, nausea, vomiting, fever, chills, blurry vision, double vision, loss of vision, chest pain, difficulty breathing, shortness of breath, back pain, night sweats, pain with urination, increased urinary frequency, increased urinary urgency, blood in her urine or stool, syncope or a near syncopal episode, bowel incontinence, bladder incontinence, bowel r etention, bladder retention, or any other complaints at this time. Onset (ago): minute(s) Location: left (hip) Radiation: non-radiation Severity: mild Severity scale (1-10): 2 Quality: aching and dull Pain Consistency: constant Relieving factors: none Exacerbating factors: none Associated symptoms: denies other symptoms Treatments prior to arrival: none Related Data Home Medications Medication Instructions Recorded Confirmed pantoprazole 40 mg tablet,delayed 40 mg PO BID@0630,1630 11/22/20 04/26/22 release mirabegron 50 mg tablet,extended 1 tab PO DAILY 06/19/21 04/26/22 release 24 hr (Myrbetriq) atorvastatin 20 mg tablet 1 tab PO DAILY 11/13/21 04/26/22 clonazepam 1 mg tablet 1 tab PO BID anxiety 11/13/21 04/26/22 clozapine 100 mg tablet 200 mg PO BEDTIME 11/13/21 04/26/22 lisinopril 40 mg tablet 40 mg PO DAILY 11/13/21 04/26/22 metformin 1,000 mg tablet 1 tab PO BID 11/13/21 04/26/22 metoprolol succinate 50 mg 1 tab PO DAILY 11/13/21 04/26/22 tablet,extended release 24 hr clonazepam 1 mg tablet 1 tab PO DAILY PRN Anxiety 04/17/22 04/26/22 sitagliptin 50 mg tablet (Januvia) 50 mg PO DAILY 04/17/22 04/26/22 linaclotide 290 mcg capsule 290 mcg PO DAILY 04/26/22 04/26/22 (Linzess) Allergies Allergy/AdvReac Type Severity Reaction Status Date / Time Penicillins [PENICILLINS] Allergy Severe ANAPHYLAXIS Verified 05/15/22 11:31 adhesive [ADHESIVE] Allergy Unknown RASH Verified 05/15/22 11:31 artichoke [ARTICHOKE] Allergy Unknown RASH Verified 05/15/22 11:31 carbamazepine [From TEGRETOL] Allergy Unknown MIGRAINES Verified 05/15/22 11:31 cariprazine [From VRAYLAR] Allergy Unknown LEG CRAMPS Verified 05/15/22 11:31 fentanyl [FENTANYL] Allergy Unknown RASH Verified 05/15/22 11:31 lamotrigine [From LAMICTAL] Allergy Unknown RASH Verified 05/15/22 11:31 lithium [LITHIUM] AdvReac Severe tremor and Verified 05/15/22 11:31 falls Review of Systems Constitutional: Constitutional: Reports no additional constitutional complaints, Denies chills, Denies fever(s) and Denies night sweats Eyes: Eyes: Reports no additional eye complaints, Denies blurry vision, Denies change in vision, Denies diplopia, Denies eye discharge, Denies loss of vision and Denies eye pain ENT: Denies dizziness Cardiovascular: Cardiovascular: Reports no additional cardiovascular complaints, Denies chest pain, Denies lightheadedness, Denies Loss of Consciousness and Denies dyspnea Respiratory: Respiratory: Reports no additional respiratory complaints and Denies dyspnea Gastrointestinal: Gastrointestinal: Reports no additional gastrointestinal complaints, Denies abdominal pain, Denies melena, Denies hematochezia, Denies change in bowel habits and Denies change in stool character Genitourinary: Genitourinary: Denies hematuria, Denies urinary frequency, Denies dysuria, Denies urinary incontinence, Denies urinary hesitancy and Denies urinary urgency Musculoskeletal: Musculoskeletal: Reports no additional musculoskeletal compl aints, Denies numbness and Denies tingling Comments: left hip pain Neurologic: Denies dizziness, Denies loss of vision, Denies numbness and Denies tingling Psychiatric: Psychiatric: Reports no additional psychiatric complaints Endocrine: Endocrine: Reports no additional endocrine complaints Hematologic/Lymphatic: Hematologic/Lymphatic: Reports no additional hematologic/lymphatic complaints Allergic/Immunologic: Allergic/Immunologic: Reports no additional allergic/immunologic complaints [facility] Past Medical History Attestation statement: The following information was validated with the patient. Source: old records reviewed Medical History Anxiety Bipolar disease, chronic Depression GERD (gastroesophageal reflux disease) High cholesterol Hypertension Migraines Morbid obesity with BMI of 45.0-49.9, adult Obstructive sleep apnea PCOS (polycystic ovarian syndrome) Pre-diabetes Renal colic Thrombosed external hemorrhoid Surgical History History of cholecystectomy History of dilation and curettage Family History Family History Other Breast cancer Social History Social History Alcohol intake: never Patient Tobacco Use Status: Current everyday Tobacco user Substance Use Type: Marijuana Physical Exam ED Vital Signs: Vital Signs - 24 hr 05/15/22 11:31 05/15/22 14:00 Temperature 97.6 F 98.0 F Pulse Rate 82 86 Respiratory Rate 16 16 Blood Pressure 144/94 H 141/86 H Pulse Oximetry 95 97 Oxygen Delivery Method Room Air BMI result Body Mass Index 49.8 Const General: cooperative, no acute distress, alert and awake Nutritional Appearance: well nourished Orientation/consciousness: patient oriented x3 Limitations: no limitations HENMT Head: Yes normal to inspection and Yes atraumatic Ears: hearing grossly normal bilaterally and external ears normal General nose exam: Normal external nose present, no nasal discharge noted and no epistaxis Face and sinus: Yes normal facial exam, No abrasion and No laceration Mouth: Normal oral and palatal mucosa present, no drooling and no muffled voice Eyes General: appearance normal, both eyes and all related structures Periorbital: periorbital findings normal Eyelids: Yes eyelids normal Conjunctivae: conjunctivae normal Pupils: Equal, round and reactive pupils present EOM: EOMs intact bilaterally Neck Neck: Yes normal visual inspection, Yes full ROM and Yes no lymphadenopathy Chest Chest palpation & inspection: normal inspection of the chest Resp Effort & Inspection: normal respiratory effort and able to speak in complete sentences Auscultation: clear to auscultation bilaterally Cardio Rate: regular rate Rhythm: regular rhythm GI Inspection: Yes normal to inspection General: Yes no CVA tenderness Back/Spine/Pelvis Back: no CVA tenderness Cervical Spine: normal cervical lordosis and cervical ROM normal Thoracic/Lumbar Spine: thoracic and lumbar spine normal to inspection and thoraco-lumbar ROM normal Pelvis: no pain with anterior-posterior compression and no pain with lateral compression Neuro General: patient oriented x3 and moves all extremities Cranial nerves: Yes Equal, round and reactive pupils present Cognition (Neuro): normal cognition Motor exam (neuro): 5/5 motor strength present throughout Sensory Exam: Normal double simultaneous stimulation for sensation Coordination: [id number] test normal Extrem General: Yes normal to inspection, Yes full ROM and Yes capillary refill normal Psych Appearance: grossly normal Mental Status: mental status grossly normal Affect: normal affect Attitude: cooperative Thought process: Normal thought process present Thought content: Normal thought content present Insight: Good insight present (Psych) Medical Decision Making MDM Narrative Medical decision making narrative: Patient is a 47 year old female presenting to the emergency department today with left hip pain. Patient's physical exam was unremarkable. Patient's left hip x-ray showed no acute process. I explained my physical exam findings as well as all test results to the patient. I answered all questions asked by the patient. Patient received IM Toradol which she stated helped her symptoms significantly. I stressed the importance of the patient taking her medication as prescribed. I stressed the importance of the patient following up with her primary care provider. I stressed the importance of the patient returning to the emergency department immediately if her symptoms were to worsen or if she were to develop any dizziness, shortness of breath, difficulty breathing, chest pain, blurry vision, loss of vision, nausea, vomiting, abdominal pain, fever, chills, back pain, or any other complaints. Patient verbalized agreement and understanding with this treatment plan and discharge. Medical Records Medical records reviewed: Yes I reviewed the patient's medical records. Lab Data Labs: Lab Results 05/15/22 05/15/22 Range/Units 12:52 13:49 POC Glucose 65 130 H (60-115) mg/dL Imaging Data Left hip x-ray: Attestation: I personally reviewed and interpreted this imaging study as follows: My impression: No acute process. Radiologist's impression: EXAMINATION: XR HIP, LEFT CLINICAL INFORMATION: Left hip pain after fall COMPARISON: 12/22/2021 TECHNIQUE: Two views of the left hip. FINDINGS: There is anatomic alignment across the hips with slight joint space narrowing. No acute fracture is seen. Sacroiliac joints and pubic symphysis are intact. XR/XR hip LT min 2V IMPRESSION: No acute findings identified. Dictated By: Cameron Prajapati MD Signed By: Electronically signed by Cameron Prajapati MD 05/15/22 1217 Discharge Plan Discharge Clinical Impression: Fall Patient Disposition: Home, Self-Care Instructions: Fall Prevention (ED) Additional Instructions: Follow up with your primary care provider. Return to the emergency department immediately if your symptoms worsen or if you develop any dizziness, shortness of breath, difficulty breathing, chest pain, blurry vision, loss of vision, nausea, vomiting, abdominal pain, fever, chills, back pain, or any other complaints. Prescriptions: No Action Myrbetriq 50 mg tablet extended release 24 hr 1 tab PO DAILY Linzess 290 mcg capsule 290 mcg PO DAILY atorvastatin 20 mg tablet 1 tab PO DAILY clozapine 100 mg tablet 200 mg PO BEDTIME metoprolol succinate 50 mg tablet extended release 24 hr 1 tab PO DAILY clonazepam 1 mg tablet 1 tab PO BID metformin 1,000 mg tablet 1 tab PO BID lisinopril 40 mg tablet 40 mg PO DAILY Januvia 50 mg tablet 50 mg PO DAILY clonazepam 1 mg tablet 1 tab PO DAILY PRN (Reason: Anxiety) Rx Instructions: TAKE 1 TABLET BY MOUTH TWICE DAILY NEEDED. MAY USE 1 ADDITIONAL FOR ANXIETY DIRECTED pantoprazole 40 mg tablet,delayed release (DR/EC) 40 mg PO BID@0630,5220 [place] [facility] [place] [place] Group[place] Ann-Marie Camacho MD [Primary Care Provider] - Stand Alone Forms: Work/School Release Interventions: ED Discharge Assessment Last Done: 05/15/22 13:51 Discharge Date/Time: 05/15/22 14:02 Print Language: Indonesian
[2022-05-15 12:57] LABS: Glucose, Whole Blood 65 mg/dL (60-115)
[2022-05-15] MEDS: Ketorolac Tromethamine 15 MG/ML VIAL IM (13:35)
--- NOTE | 2022-05-15 13:37 | PC.NURSE ---
pt medicated for pain per order
[2022-05-15 13:57] LABS: Glucose, Whole Blood 130 mg/dL (60-115)
[2022-05-15 14:00] VITALS: BP 141/86; PULSE 86; RESP 16; TEMP 36.7; O2SAT 97
--- NOTE | 2022-05-15 14:01 | PC.NURSE ---
pt repeat poc wnl, provider notified, pt vss, will be discharged
== END 2022-05-15 14:02 | disposition home or self-care (01) ==
PROVIDERS: Emergency Provider Emergency Medicine; PCP Internal Medicine
DX: M25.552 Pain in left hip (principal); F17.200 Nicotine dependence, unspecified, uncomplicated; Z71.6 Tobacco abuse counseling; Z79.899 Other long term (current) drug therapy
CPT/HCPCS: 73502; 82947; 96372; 99284; J1885

== ENCOUNTER 2022-05-15 14:04 | Outpatient (REF) | payer BC, MEDICARE, MEDICAID, SELFPAY ==
[2022-05-15 15:01] LABS: Hematocrit 38.9 % (37.0-47.0); Hemoglobin 12.7 g/dl (12.0-16.0); Mean Corpuscular HGB Conc 32.6 g/dl (31.0-35.0); Mean Corpuscular Hemoglobin 30.5 pg (27.0-33.0); Mean Corpuscular Volume 93.3 fL (80.0-98.0); Mean Platelet Volume 10.2 fL (9.4-12.3); Neut%MD 62.2 %; Platelet Count 245 X10*3/uL (160-400); Red Blood Count 4.17 X10*6/uL (4.20-5.50); Red Cell Distribution Width 12.9 % (11.0-16.0); WBCANC 9.6 X10*3/uL; White Blood Count 9.6 X10*3/uL (4.8-10.8)
[2022-05-16 08:51] LABS: Basophils Percent Auto 0.5 % (0-2); Imm Gran Abs Auto 0.03 X10*3/uL (0.00-0.03); Imm Gran Pct Auto 0.3 % (0.0-0.4); Lymphocytes Percent Auto 30.3 % (20-40); MANUAL DIFF FLAG NO; Monocytes Percent Auto 5.7 % (2-11); Neutrophils Percent Auto 62.2 % (45-73)
[2022-05-16 09:06] LABS: Lymphocytes Absolute Auto 2.9 X10*3/uL (1.2-4.9); Monocytes Absolute Auto 5.5 X10*3/uL (0.1-1.2)
[2022-05-16 09:07] LABS: Basophils Absolute Auto 0.5 X10*3/uL (0.0-0.2)
== END 2022-05-15 14:05 | disposition home or self-care (01) ==
LOC: HO.LABR 14:04
PROVIDERS: PCP Internal Medicine; Visit Provider Clinical Nurse Specialist Psychiatric/Mental Health, Child & Adolescent
DX: F31.32 Bipolar disorder, current episode depressed, moderate (principal); Z79.899 Other long term (current) drug therapy
CPT/HCPCS: 36415; 85007; 85025; 85027

== ENCOUNTER 2022-05-17 11:06 | Outpatient (REF) | payer BC, MEDICARE, MEDICAID, SELFPAY ==
--- NOTE | ~2022-05-17 | XR_ITS ---
EXAMINATION: XR SHOULDER, LEFT CLINICAL INFORMATION: Left shoulder pain. COMPARISON: None TECHNIQUE: AP external rotation, Grashey, scapular Y, and axillary views of the left shoulder. FINDINGS: The bones and soft tissues are normal. No fracture. Glenohumeral and acromioclavicular alignment is anatomic with normal joint space. No abnormal soft tissue calcifications. XR/XR shoulder LT min 2V IMPRESSION: Unremarkable examination.
== END 2022-05-17 11:07 | disposition home or self-care (01) ==
LOC: HO.XRAY 11:06
PROVIDERS: PCP Internal Medicine; Visit Provider Internal Medicine
DX: M25.512 Pain in left shoulder (principal)
CPT/HCPCS: 73030

== ENCOUNTER 2022-05-21 18:55 | Emergency (ER) | payer BC, MEDICARE, MEDICAID, SELFPAY ==
[2022-05-21 21:01] VITALS: BP 135/78; PULSE 85; RESP 16; TEMP 36.8; O2SAT 95; BMI 49.8
[2022-05-21 21:25] LABS: MANUAL DIFF FLAG NO
[2022-05-21 21:26] LABS: Basophils Percent Auto 0.4 % (0-2); Eosinophils Absolute Auto 0.1 X10*3/uL (0.0-0.4); Eosinophils Percent Auto 0.8 % (0-4); Hematocrit 38.7 % (37.0-47.0); Hemoglobin 12.7 g/dl (12.0-16.0); Imm Gran Abs Auto 0.04 X10*3/uL (0.00-0.03); Imm Gran Pct Auto 0.4 % (0.0-0.4); Lymphocytes Absolute Auto 3.2 X10*3/uL (1.2-4.9); Lymphocytes Percent Auto 28.1 % (20-40); Mean Corpuscular HGB Conc 32.8 g/dl (31.0-35.0); Mean Corpuscular Hemoglobin 30.5 pg (27.0-33.0); Mean Corpuscular Volume 92.8 fL (80.0-98.0); Mean Platelet Volume 9.5 fL (9.4-12.3); Monocytes Absolute Auto 0.5 X10*3/uL (0.1-1.2); Monocytes Percent Auto 4.2 % (2-11); Neutrophils Absolute Auto 7.5 x10*3/uL (2.0-8.3); Neutrophils Percent Auto 66.1 % (45-73); Platelet Count 251 X10*3/uL (160-400); Red Blood Count 4.17 X10*6/uL (4.20-5.50); Red Cell Distribution Width 13.1 % (11.0-16.0); White Blood Count 11.4 X10*3/uL (4.8-10.8)
[2022-05-21 21:46] LABS: Anion Gap 16 (12-20); Blood Urea Nitrogen 10 mg/dL (9-16); Calcium 9.5 mg/dL (8.4-10.2); Carbon Dioxide 28 mmol/L (22-29); Chloride 102 mmol/L (96-108); Creatinine Clr Calc Pharmacy 140.4; Estimated Glomerular Filt Rate > 60; Glucose Random 119 mg/dL (60-115); Sodium 142 mmol/L (135-145)
[2022-05-21 22:06] LABS: COVID-19 Test Negative (Negative)
[2022-05-22] MEDS: 0.9 % Sodium Chloride 1,000 ML 999 ML IV (03:05)
[2022-05-22] MEDS: diphenhydrAMINE HCL 50 MG/ML VIAL IVPUSH (03:07)
[2022-05-22] MEDS: Metoclopramide HCl 10 MG/2 ML VIAL IVPUSH (03:07)
[2022-05-22] MEDS: Ketorolac Tromethamine 30 MG/ML VIAL IVPUSH (03:07)
--- NOTE | 2022-05-22 04:23 | ED_ITS ---
HPI - Headache General Chief Complaint: Headache Stated Complaint: migraine Time Seen by Provider: 05/22/22 02:41 Source: patient Mode of arrival: ambulatory Limitations: no limitations History of Present Illness HPI Narrative: History of migraine headache been having headache since morning did take Fioricet without much response nauseated no vomiting no fever or chills patient has been here multiple times for same in the past usually IV medicine works Related Data Home Medications Medication Instructions Recorded Confirmed pantoprazole 40 mg tablet,delayed 40 mg PO BID@0630,1630 11/22/20 04/26/22 release mirabegron 50 mg tablet,extended 1 tab PO DAILY 06/19/21 04/26/22 release 24 hr (Myrbetriq) atorvastatin 20 mg tablet 1 tab PO DAILY 11/13/21 04/26/22 clonazepam 1 mg tablet 1 tab PO BID anxiety 11/13/21 04/26/22 clozapine 100 mg tablet 200 mg PO BEDTIME 11/13/21 04/26/22 lisinopril 40 mg tablet 40 mg PO DAILY 11/13/21 04/26/22 metformin 1,000 mg tablet 1 tab PO BID 11/13/21 04/26/22 metoprolol succinate 50 mg 1 tab PO DAILY 11/13/21 04/26/22 tablet,extended release 24 hr clonazepam 1 mg tablet 1 tab PO DAILY PRN Anxiety 04/17/22 04/26/22 sitagliptin 50 mg tablet (Januvia) 50 mg PO DAILY 04/17/22 04/26/22 linaclotide 290 mcg capsule 290 mcg PO DAILY 04/26/22 04/26/22 (Linzess) Previous Rx's Medication Instructions Recorded zgzntbfrtc-eppehrkpvnfbr-udmsrsit 1 cap PO Q6H PRN headache #20 caps 05/22/22 50 mg-300 mg-40 mg capsule (Fioricet) Allergies Allergy/AdvReac Type Severity Reaction Status Date / Time Penicillins [PENICILLINS] Allergy Severe ANAPHYLAXIS Verified 05/15/22 11:31 adhesive [ADHESIVE] Allergy Unknown RASH Verified 05/15/22 11:31 artichoke [ARTICHOKE] Allergy Unknown RASH Verified 05/15/22 11:31 carbamazepine [From TEGRETOL] Allergy Unknown MIGRAINES Verified 05/15/22 11:31 cariprazine [From VRAYLAR] Allergy Unknown LEG CRAMPS Verified 05/15/22 11:31 fentanyl [FENTANYL] Allergy Unknown RASH Verified 05/15/22 11:31 lamotrigine [From LAMICTAL] Allergy Unknown RASH Verified 05/15/22 11:31 lithium [LITHIUM] AdvReac Severe tremor and Verified 05/15/22 11:31 falls Review of Systems Review of Systems: Yes all other systems are reviewed and are negative [facility] Past Medical History Medical History Anxiety Bipolar disease, chronic Depression GERD (gastroesophageal reflux disease) High cholesterol Hypertension Migraines Morbid obesity with BMI of 45.0-49.9, adult Obstructive sleep apnea PCOS (polycystic ovarian syndrome) Pre-diabetes Renal colic Thrombosed external hemorrhoid Surgical History History of cholecystectomy History of dilation and curettage Family History Family History Other Breast cancer Social History Social History Alcohol intake: never Patient Tobacco Use Status: Current everyday Tobacco user Substance Use Type: Marijuana Advance Directives: No Physical Exam Vital Signs: Vital Signs: Last Vital Signs Temp 98.2 F 05/21/22 21:01 Pulse 85 05/21/22 21:01 Resp 16 05/21/22 21:01 BP 135/78 05/21/22 21:01 Pulse Ox 95 05/21/22 21:01 O2 Del Method 05/21/22 21:01 BMI result Body Mass Index 49.8 Appearance: Alert. Oriented X3. No acute distress. Eyes: PERRLA, No Nystagmus ENT: Pharynx normal. Oral Mucosa moist temporal artery nontender sinuses nontender Neck: Normal inspection. Neck supple. CVS: Normal heart rate and rhythm. Pulses normal. Respiratory: No respiratory distress. Equal air entry bilateral, no wheezing/rales/rhonchi Abdomen: Soft and nontender. Bowel sounds are present, no mass palpable, no CVA tenderness Skin: Skin warm and dry. Normal skin color. Normal skin turgor. Extremities: No lower extremity edema. No calf tenderness Neuro: Oriented X 3. No motor deficit. No sensory deficit.No cerebellar signs , cranial nerves II-XII intact MDM - Headache MDM Narrative Medical decision making narrative: Patient migraine headache improved after IV Benadryl and Toradol and Reglan will discharge patient home on Fioricet Lab Data Attestation: I reviewed the patient's lab results. Result diagrams: 05/21/22 21:19 05/21/22 21:19 Labs: Lab Results 05/21/22 05/21/22 05/21/22 Range/Units 21:19 21:19 21:19 WBC 11.4 H (4.8-10.8) X10*3/uL RBC 4.17 L (4.20-5.50) X10*6/uL Hgb 12.7 (12.0-16.0) g/dl Hct 38.7 (37.0-47.0) % MCV 92.8 (80.0-98.0) fL MCH 30.5 (27.0-33.0) pg MCHC 32.8 (31.0-35.0) g/dl RDW 13.1 (11.0-16.0) % Plt Count 251 (160-400) X10*3/uL MPV 9.5 (9.4-12.3) fL Immature Gran % (Auto) 0.4 (0.0-0.4) % Neut % (Auto) 66.1 (45-73) % Lymph % (Auto) 28.1 (20-40) % [place] % (Auto) 4.2 (2-11) % Eos % (Auto) 0.8 (0-4) % Baso % (Auto) 0.4 (0-2) % Lymph # (Auto) 3.2 (1.2-4.9) X10*3/uL [place] # (Auto) 0.5 (0.1-1.2) X10*3/uL Eos # (Auto) 0.1 (0.0-0.4) X10*3/uL Baso # (Auto) 0.0 (0.0-0.2) X10*3/uL Abs Immat Gran (auto) 0.04 H (0.00-0.03) X10*3/uL Absolute Neuts (auto) 7.5 (2.0-8.3) x10*3/uL Absolute Nucleated RBC 0.000 (0.0-0.012) X10*3/uL Nucleated RBC % (auto) 0.0 (0.0-0.2) /100WBC Sodium 142 (135-145) mmol/L Potassium 4.0 (3.3-5.1) mmol/L Chloride 102 (96-108) mmol/L Carbon Dioxide 28 (22-29) mmol/L Anion Gap 16 (12-20) BUN 10 (9-16) mg/dL Creatinine 0.74 (0.5-1.4) mg/dL Estim Creat Clear Calc 140.4 Estimated GFR > 60 Random Glucose 119 H (60-115) mg/dL Calcium 9.5 D (8.4-10.2) mg/dL COVID-19 (ANA) Negative (Negative) COVID-19 Clin Com See Note Discharge Plan Discharge Clinical Impression: Migraine Patient Disposition: Home, Self-Care Instructions: Migraine Headache (ED) Additional Instructions: Rest at home Take Fioricet as advised for headaches Follow-up with PCP Prescriptions: New tnsjmxjzcy-sjhdmzbgwyaio-fmni [Fioricet] 50-300-40 mg capsule 1 cap PO Q6H PRN (Reason: headache) Qty: 20 0RF No Action Myrbetriq 50 mg tablet extended release 24 hr 1 tab PO DAILY Linzess 290 mcg capsule 290 mcg PO DAILY atorvastatin 20 mg tablet 1 tab PO DAILY clozapine 100 mg tablet 200 mg PO BEDTIME metoprolol succinate 50 mg tablet extended release 24 hr 1 tab PO DAILY clonazepam 1 mg tablet 1 tab PO BID metformin 1,000 mg tablet 1 tab PO BID lisinopril 40 mg tablet 40 mg PO DAILY Januvia 50 mg tablet 50 mg PO DAILY clonazepam 1 mg tablet 1 tab PO DAILY PRN (Reason: Anxiety) Rx Instructions: TAKE 1 TABLET BY MOUTH TWICE DAILY NEEDED. MAY USE 1 ADDITIONAL FOR ANXI ETY DIRECTED pantoprazole 40 mg tablet,delayed release (DR/EC) 40 mg PO BID@0630,1630 Interventions: ED Discharge Assessment Last Done: 05/22/22 04:58 Discharge Date/Time: 05/22/22 04:59
== END 2022-05-22 04:59 | disposition home or self-care (01) ==
PROVIDERS: Emergency Provider Internal Medicine; PCP Internal Medicine
DX: G43.901 Migraine, unspecified, not intractable, with status migrainosus (principal); Z20.822 Contact with and (suspected) exposure to COVID-19; Z79.899 Other long term (current) drug therapy
CPT/HCPCS: 80048; 85025; 87635; 96374; 96375; 99283; 99284; J1200; J1885; J2765

== ENCOUNTER 2022-06-05 11:56 | Observation (INO) | payer BC, MEDICARE, MEDICAID, SELFPAY ==
--- NOTE | ~2022-06-05 | XR_ITS ---
EXAMINATION: XR CHEST CLINICAL INFORMATION: Chest pain COMPARISON: 02/21/2022 TECHNIQUE: Frontal view of the chest was obtained. FINDINGS: No acute finding. No obvious failure or infiltrate. There is no effusion. The cardiac silhouette is within normal limits. The hilar regions are felt to be comparable. XR/XR chest 1V IMPRESSION: No acute finding.
[2022-06-05 11:57] VITALS: BP 158/78; PULSE 92; RESP 18; TEMP 37; O2SAT 98; BMI 49.8
--- NOTE | 2022-06-05 12:01 | ECG_ITS ---
Test Reason : palpitations Blood Pressure : / mmHG Vent. Rate : 085 BPM Atrial Rate : 085 BPM P-R Int : 198 ms QRS Dur : 082 ms QT Int : 366 ms P-R-T Axes : 050 015 048 degrees QTc Int : 435 ms Normal sinus rhythm Normal ECG When compared with ECG of 26-APR-2022 13:07, No significant change was found Referred By: Generic ED Physician Electronically Signed By:SHANNON HERNANDEZ MD
--- NOTE | 2022-06-05 16:23 | ED.ARRPALP ---
HPI - Arrhythmia/Palpitations General Chief Complaint: Arrhythmia/Palpitations Stated Complaint: heart palpitations/nausea/blurred vision Time Seen by Provider: 06/05/22 16:16 History of Present Illness HPI narrative: Patient is a 47-year-old female with a history of diabetes, hypertension presents today with having sudden onset of palpitation. Patient claims that lasted for about 10 seconds. Associated with some diaphoresis associated with some chest pressure. Never actually passed out got closed yesterday. Patient denies any focal weakness. Patient denies any changes in medication. She is from home. Does not think she is . Is not on control pills. No coughing or congestion. No upper respiratory symptoms. Related Data Home Medications Medication Instructions Recorded Confirmed pantoprazole 40 mg tablet,delayed 40 mg PO BID@0630,1630 11/22/20 04/26/22 release mirabegron 50 mg tablet,extended 1 tab PO DAILY 06/19/21 04/26/22 release 24 hr (Myrbetriq) atorvastatin 20 mg tablet 1 tab PO DAILY 11/13/21 04/26/22 clonazepam 1 mg tablet 1 tab PO BID anxiety 11/13/21 04/26/22 clozapine 100 mg tablet 200 mg PO BEDTIME 11/13/21 04/26/22 lisinopril 40 mg tablet 40 mg PO DAILY 11/13/21 04/26/22 metformin 1,000 mg tablet 1 tab PO BID 11/13/21 04/26/22 metoprolol succinate 50 mg 1 tab PO DAILY 11/13/21 04/26/22 tablet,extended release 24 hr clonazepam 1 mg tablet 1 tab PO DAILY PRN Anxiety 04/17/22 04/26/22 sitagliptin 50 mg tablet (Januvia) 50 mg PO DAILY 04/17/22 04/26/22 linaclotide 290 mcg capsule 290 mcg PO DAILY 04/26/22 04/26/22 (Linzess) Previous Rx's Medication Instructions Recorded ggqdpwgthg-fhymvqgkeachm-yuvhpcup 1 cap PO Q6H PRN headache #20 caps 05/22/22 50 mg-300 mg-40 mg capsule (Fioricet) Allergies Allergy/AdvReac Type Severity Reaction Status Date / Time Penicillins [PENICILLINS] Allergy Severe ANAPHYLAXIS Verified 05/15/22 11:31 adhesive [ADHESIVE] Allergy Unknown RASH Verified 05/15/22 11:31 artichoke [ARTICHOKE] Allergy Unknown RASH Verified 05/15/22 11:31 carbamazepine [From TEGRETOL] Allergy Unknown MIGRAINES Verified 05/15/22 11:31 cariprazine [From VRAYLAR] Allergy Unknown LEG CRAMPS Verified 05/15/22 11:31 fentanyl [FENTANYL] Allergy Unknown RASH Verified 05/15/22 11:31 lamotrigine [From LAMICTAL] Allergy Unknown RASH Verified 05/15/22 11:31 lithium [LITHIUM] AdvReac Severe tremor and Verified 05/15/22 11:31 falls Review of Systems Review of Systems: Positive chest pain diaphoresis positive palpitation that seems fast. Never actually passed out Yes all other systems are reviewed and are negative [facility] Past Medical History Attestation statement: The following information was validated with the patient. Medical History Anxiety Bipolar disease, chronic Depression GERD (gastroesophageal reflux disease) High cholesterol Hypertension Migraines Morbid obesity with BMI of 45.0-49.9, adult Obstructive sleep apnea PCOS (polycystic ovarian syndrome) Pre-diabetes Renal colic Thrombosed external hemorrhoid Surgical History History of cholecystectomy History of dilation and curettage Family History Family History Other Breast cancer Social History Social History Alcohol intake: current Alcohol intake frequency: holidays/special occasions only Alcohol type: hard liquor Patient Tobacco Use Status: Current everyday Tobacco user Use of substances other than those prescribed or required for medical reasons: No Substance Use Type: Marijuana Advance Directives: No Advance Directives Information Provided: Yes Physical Exam Vital Signs: Vital Signs: Last Vital Signs Temp 98.0 F 06/05/22 16:53 Pulse 91 06/05/22 17:26 Resp 18 06/05/22 16:53 BP 111/63 06/05/22 17:25 Pulse Ox 94 06/05/22 16:53 O2 Del Method 06/05/22 16:53 BMI result Body Mass Index 49.8 Appearance: Alert. Oriented X3. No acute distress. Eyes: Pupils equal, round and reactive to light. ENT: Pharynx normal. Neck: Normal inspection. Neck supple. No lymph nodes noted. No crepitus CVS: Normal heart rate and rhythm. Pulses normal. Normal S1 and S2 Respiratory: No respiratory distress. Breath sounds normal. No Wheezing. No rales Abdomen: Soft and nontender. No rigidity. No distention. good BS x4 Skin: Skin warm and dry. Normal skin color. Normal skin turgor. Extremities: No lower extremity edema. Neurovascular intact to all extremities. No Lacerations. No Rash Neuro: Oriented X 3. No motor deficit. No sensory deficit. Moving all extermities. No slurred speech MDM - Arrhythmia/Palpitations MDM Narrative Medical decision making narrative: EKG showed a sinus pattern heart rate is 85 ND QRS QT within normal limits there is no acute ST segment elevation noted. Patient's D-dimer negative. Unlikely to have PE. Patient has had chest pain along with palpitation near syncopal episodes. Will admit for observation overnight. Currently in stable condition does have risk factors including hypertension and diabetes. Her EKG was within normal limits her troponin was negative. Lab Data Attestation: I reviewed the patient's lab results. Result diagrams: 06/05/22 17:34 06/05/22 17:34 Labs: Lab Results 06/05/22 06/05/22 06/05/22 Range/Units 17:34 17:34 17:34 WBC 11.4 H (4.8-10.8) X10*3/uL RBC 4.08 L (4.20-5.50) X10*6/uL Hgb 12.7 (12.0-16.0) g/dl Hct 38.1 (37.0-47.0) % MCV 93.4 (80.0-98.0) fL MCH 31.1 (27.0-33.0) pg MCHC 33.3 (31.0-35.0) g/dl RDW 13.0 (11.0-16.0) % Plt Count 234 (160-400) X10*3/uL MPV 9.6 (9.4-12.3) fL Immature Gran % (Auto) 0.5 H (0.0-0.4) % Neut % (Auto) 65.0 (45-73) % Lymph % (Auto) 28.7 (20-40) % [place] % (Auto) 4.9 (2-11) % Eos % (Auto) 0.6 (0-4) % Baso % (Auto) 0.3 (0-2) % Lymph # (Auto) 3.3 (1.2-4.9) X10*3/uL [place] # (Auto) 0.6 (0.1-1.2) X10*3/uL Eos # (Auto) 0.1 (0.0-0.4) X10*3/uL Baso # (Auto) 0.0 (0.0-0.2) X10*3/uL Abs Immat Gran (auto) 0.06 H (0.00-0.03) X10*3/uL Absolute Neuts (auto) 7.4 (2.0-8.3) x10*3/uL Absolute Nucleated RBC 0.000 (0.0-0.012) X10*3/uL Nucleated RBC % (auto) 0.0 (0.0-0.2) /100WBC D-Dimer High Sensitivty < 150 NG/ML Sodium 144 (135-145) mmol/L Potassium 4.3 (3.3-5.1) mmol/L Chloride 104 (96-108) mmol/L Carbon Dioxide 28 (22-29) mmol/L Anion Gap 16 (12-20) BUN 9 (9-16) mg/dL Creatinine 0.73 (0.5-1.4) mg/dL Estim Creat Clear Calc 142.3 Estimated GFR > 60 POC Glucose (60-115) mg/dL Random Glucose 105 (60-115) mg/dL Calcium 9.2 (8.4-10.2) mg/dL Total Bilirubin 0.2 (0.0-1.0) mg/dL Direct Bilirubin < 0.2 (0.0-0.5) mg/dL AST 18 (5-31) U/L ALT 28 (0-31) U/L Alkaline Phosphatase 73 (39-117) U/L Troponin I High Sens (<3.5-17.0) ng/L Total Protein 6.8 (6.5-8.0) g/dL Albumin 4.4 (3.5-5.0) g/dL Beta HCG, Quant < 2 mIU/mL COVID-19 (ANA) (Negative) COVID-19 Clin Com 06/05/22 06/05/22 06/05/22 Range/Units 17:34 17:34 18:51 WBC (4.8-10.8) X10*3/uL RBC (4.20-5.50) X10*6/uL Hgb (12.0-16.0) g/dl Hct (37.0-47.0) % MCV (80.0-98.0) fL MCH (27.0-33.0) pg MCHC (31.0-35.0) g/dl RDW (11.0-16.0) % Plt Count (160-400) X10*3/uL MPV (9.4-12.3) fL Immature Gran % (Auto) (0.0-0.4) % Neut % (Auto) (45-73) % Lymph % (Auto) (20-40) % [place] % (Auto) (2-11) % Eos % (Auto) (0-4) % Baso % (Auto) (0-2) % Lymph # (Auto) (1.2-4.9) X10*3/uL [place] # (Auto) (0.1-1.2) X10*3/uL Eos # (Auto) (0.0-0.4) X10*3/uL Baso # (Auto) (0.0-0.2) X10*3/uL Abs Immat Gran (auto) (0.00-0.03) X10*3/uL Absolute Neuts (auto) (2.0-8.3) x10*3/uL Absolute Nucleated RBC (0.0-0.012) X10*3/uL Nucleated RBC % (auto) (0.0-0.2) /100WBC D-Dimer High Sensitivty NG/ML Sodium (135-145) mmol/L Potassium (3.3-5.1) mmol/L Chloride (96-108) mmol/L Carbon Dioxide (22-29) mmol/L Anion Gap (12-20) BUN (9-16) mg/dL Creatinine (0.5-1.4) mg/dL Estim Creat Clear Calc Estimated GFR POC Glucose 87 (60-115) mg/dL Random Glucose (60-115) mg/dL Calcium (8.4-10.2) mg/dL Total Bilirubin (0.0-1.0) mg/dL Direct Bilirubin (0.0-0.5) mg/dL AST (5-31) U/L ALT (0-31) U/L Alkaline Phosphatase (39-117) U/L Troponin I High Sens < 3.5 (<3.5-17.0) ng/L Total Protein (6.5-8.0) g/dL Albumin (3.5-5.0) g/dL Beta HCG, Quant mIU/mL COVID-19 (ANA) Negative (Negative) COVID-19 Clin Com See Note Discharge Plan Discharge Clinical Impression: Near syncope Patient Disposition: Admitted As Inpatient Prescriptions: No Action Myrbetriq 50 mg tablet extended release 24 hr 1 tab PO DAILY Linzess 290 mcg capsule 290 mcg PO DAILY mkrglixfhl-npytnrdbqcjkj-ekbr [Fioricet] 50-300-40 mg capsule 1 cap PO Q6H PRN (Reason: headache) Qty: 20 0RF atorvastatin 20 mg tablet 1 tab PO DAILY clozapine 100 mg tablet 200 mg PO BEDTIME metoprolol succinate 50 mg tablet extended release 24 hr 1 tab PO DAILY clonazepam 1 mg tablet 1 tab PO BID metformin 1,000 mg tablet 1 tab PO BID lisinopril 40 mg tablet 40 mg PO DAILY Januvia 50 mg tablet 50 mg PO DAILY clonazepam 1 mg tablet 1 tab PO DAILY PRN (Reason: Anxiety) Rx Instructions: TAKE 1 TABLET BY MOUTH TWICE DAILY NEEDED. MAY USE 1 ADDITIONAL FOR ANXIETY DIRECTED pantoprazole 40 mg tablet,delayed release (DR/EC) 40 mg PO BID@0630,1630
[2022-06-05 16:53] VITALS: BP 108/64; PULSE 88; RESP 18; TEMP 36.7; O2SAT 94
[2022-06-05 17:25] VITALS: BP 111/63; PULSE 83
[2022-06-05 17:26] VITALS: PULSE 91
[2022-06-05 17:39] LABS: MANUAL DIFF FLAG NO
[2022-06-05 17:42] LABS: Basophils Percent Auto 0.3 % (0-2); Eosinophils Absolute Auto 0.1 X10*3/uL (0.0-0.4); Eosinophils Percent Auto 0.6 % (0-4); Hematocrit 38.1 % (37.0-47.0); Hemoglobin 12.7 g/dl (12.0-16.0); Imm Gran Abs Auto 0.06 X10*3/uL (0.00-0.03); Imm Gran Pct Auto 0.5 % (0.0-0.4); Lymphocytes Absolute Auto 3.3 X10*3/uL (1.2-4.9); Lymphocytes Percent Auto 28.7 % (20-40); Mean Corpuscular HGB Conc 33.3 g/dl (31.0-35.0); Mean Corpuscular Hemoglobin 31.1 pg (27.0-33.0); Mean Corpuscular Volume 93.4 fL (80.0-98.0); Mean Platelet Volume 9.6 fL (9.4-12.3); Monocytes Absolute Auto 0.6 X10*3/uL (0.1-1.2); Monocytes Percent Auto 4.9 % (2-11); Neutrophils Absolute Auto 7.4 x10*3/uL (2.0-8.3); Platelet Count 234 X10*3/uL (160-400); Red Blood Count 4.08 X10*6/uL (4.20-5.50); White Blood Count 11.4 X10*3/uL (4.8-10.8)
[2022-06-05 17:50] LABS: D Dimer High Sensitivity < 150 NG/ML
[2022-06-05 18:04] LABS: Alanine Aminotransferase 28 U/L (0-31); Albumin Level 4.4 g/dL (3.5-5.0); Alkaline Phosphatase 73 U/L (39-117); Anion Gap 16 (12-20); Aspartate Amino Transferase 18 U/L (5-31); Bilirubin Direct < 0.2 mg/dL (0.0-0.5); Bilirubin Total 0.2 mg/dL (0.0-1.0); Blood Urea Nitrogen 9 mg/dL (9-16); Calcium 9.2 mg/dL (8.4-10.2); Carbon Dioxide 28 mmol/L (22-29); Chloride 104 mmol/L (96-108); Creatinine Clr Calc Pharmacy 142.3; Estimated Glomerular Filt Rate > 60; Glucose Random 105 mg/dL (60-115); Potassium 4.3 mmol/L (3.3-5.1); Sodium 144 mmol/L (135-145); Total Protein 6.8 g/dL (6.5-8.0)
[2022-06-05 18:10] LABS: Troponin-I High Sensitivity < 3.5 ng/L (<3.5-17.0)
[2022-06-05 18:14] LABS: COVID-19 Test Negative (Negative); IDNOW Serial# 16C4AD1C
[2022-06-05 18:29] LABS: HCG Quantitative < 2 mIU/mL
[2022-06-05 18:59] LABS: Glucose, Whole Blood 87 mg/dL (60-115)
--- NOTE | 2022-06-05 19:41 | PHA.MEDREC ---
Pharmacy Consult ? Medication Reconciliation Pharmacy has completed the medication reconciliation. spoke with patient in the ED. Patient takes clozapine daily with her last dose being 06/04/22.
--- NOTE | 2022-06-05 19:58 | PM.IMHP ---
History of Present Illness Date of Service: 06/05/22 Chief Complaint: Near-syncope and palpitations This is a 47-year-old female with a pertinent history of vdi-qieojbb-gaaleaqaj diabetes mellitus, essential hypertension, mixed hyperlipidemia, bipolar disorder who presents to the emergency department for evaluation of palpitations and near syncope. Patient states she has been having palpitations for the last 2 weeks which last about 1 minute. Yesterday, while she was putting nails on the wall she had sudden onset of palpitations followed by episode of near-syncope. She did not lose consciousness but felt like she was about to. Also had episode of chest tightness and mild dyspnea which resolved in 15 minutes. Admits associated sweating. Denies vomiting and admits adequate p.o. intake. 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 Patient denies flushing prior to near syncope and no rhythmic jerking of extremities. Denies fever, chills, chest discomfort, abdominal pain, changes in urinary or bowel habits. Denies orthopnea, dyspnea, leg swelling Review of Systems Review of Systems: All 13 review of systems are negative except as noted in HPI [facility] Medical History (Updated 06/05/22 @ 20:06 by Laina Herrera MD) Anxiety Bipolar disease, chronic Depression GERD (gastroesophageal reflux disease) High cholesterol Hypertension Migraines Morbid obesity with BMI of 45.0-49.9, adult Obstructive sleep apnea PCOS (polycystic ovarian syndrome) Pre-diabetes Renal colic Thrombosed external hemorrhoid Family History Other Breast cancer Surgical History History of cholecystectomy History of dilation and curettage Social History Alcohol intake: current Alcohol intake frequency: holidays/special occasions only Alcohol type: hard liquor Patient Tobacco Use Status: Current everyday Tobacco user Use of substances other than those prescribed or required for medical reasons: No Substance Use Type: Marijuana Advance Directives: No Advance Directives Information Provided: Yes Meds Allergies Allergy/AdvReac Type Severity Reaction Status Date / Time Penicillins [PENICILLINS] Allergy Severe ANAPHYLAXIS Verified 05/15/22 11:31 adhesive [ADHESIVE] Allergy Unknown RASH Verified 05/15/22 11:31 artichoke [ARTICHOKE] Allergy Unknown RASH Verified 05/15/22 11:31 carbamazepine [From TEGRETOL] Allergy Unknown MIGRAINES Verified 05/15/22 11:31 cariprazine [From VRAYLAR] Allergy Unknown LEG CRAMPS Verified 05/15/22 11:31 fentanyl [FENTANYL] Allergy Unknown RASH Verified 05/15/22 11:31 lamotrigine [From LAMICTAL] Allergy Unknown RASH Verified 05/15/22 11:31 lithium [LITHIUM] AdvReac Severe tremor and Verified 05/15/22 11:31 falls Active Medications: Current Medications Acetaminophen (Acetaminophen 325 Mg Tablet) 650 mg PO Q6H PRN PRN Reason: Pain, Mild (Pain Scale 1-3) Enoxaparin Sodium (Enoxaparin Sodium 40 Mg/0.4 Ml Syringe) 40 mg SUBCUT Q24H [facility] Melatonin (Melatonin 3 Mg Tablet) 6 mg PO BEDTIME PRN PRN Reason: Insomnia Ondansetron HCl (Ondansetron Hcl 4 Mg/2 Ml Vial) 4 mg IVPUSH Q8H PRN PRN Reason: Nausea and Vomiting Pharmacy Consult (Consult Rx Perform Med Rec) 1 each MISCELLANE ONCE STA Stop: 06/05/22 19:36 Sodium Chloride (0.9 % Sodium Chloride Flush 3 Ml Syringe) 3 ml IVFLUSH QSHIFT [facility] Home Medications Medication Instructions Recorded Confirmed Last Taken Type pantoprazole 40 mg tablet,delayed 40 mg PO BID@0630,1630 11/22/20 06/05/22 06/05/22 History release mirabegron 50 mg tablet,extended 1 tab PO DAILY 06/19/21 06/05/22 06/05/22 History release 24 hr (Myrbetriq) atorvastatin 20 mg tablet 1 tab PO BEDTIME 11/13/21 06/05/22 06/04/22 History clonazepam 1 mg tablet 1 tab PO BID anxiety 11/13/21 06/05/22 06/05/22 History clozapine 100 mg tablet 200 mg PO BEDTIME 11/13/21 06/05/22 06/04/22 History lisinopril 40 mg tablet 40 mg PO DAILY 11/13/21 06/05/22 06/05/22 History metformin 1,000 mg tablet 1 tab PO BIDWM 11/13/21 06/05/22 06/05/22 History metoprolol succinate 50 mg 1 tab PO DAILY 11/13/21 06/05/22 06/05/22 History tablet,extended release 24 hr clonazepam 1 mg tablet 1 tab PO DAILY PRN Anxiety 04/17/22 06/05/22 Unknown History sitagliptin 50 mg tablet (Januvia) 50 mg PO DAILY 04/17/22 06/05/22 06/05/22 History Physical Exam Vital Signs and Narrative: Vital Signs: Last Vital Signs Temp 98.0 F 06/05/22 16:53 Pulse 91 06/05/22 17:26 Resp 18 06/05/22 16:53 BP 111/63 06/05/22 17:25 Pulse Ox 94 06/05/22 16:53 O2 Del Method 06/05/22 16:53 BMI result Body Mass Index 49.8 Middle-aged female lying in bed in no distress Neck supple, no JVD Regular rate and rhythm, S1-S2 heard Regular breath sounds bilaterally, no wheezing or crackles appreciated Abdomen soft nontender, no guarding, no rigidity Patient is awake, alert and oriented to self, place, time and person ; no focal motor deficit Psych: Normal mood No pedal edema Results Labs CBC and Chem 7: 06/05/22 17:34 06/05/22 17:34 Labs: Laboratory Results - last 24 hr 06/05/22 06/05/22 06/05/22 17:34 17:34 17:34 MCV 93.4 MCH 31.1 MCHC 33.3 RDW 13.0 Plt Count 234 MPV 9.6 Immature Gran % (Auto) 0.5 H Neut % (Auto) 65.0 Lymph % (Auto) 28.7 [place] % (Auto) 4.9 Eos % (Auto) 0.6 Baso % (Auto) 0.3 Lymph # (Auto) 3.3 [place] # (Auto) 0.6 Eos # (Auto) 0.1 Baso # (Auto) 0.0 Abs Immat Gran (auto) 0.06 H Absolute Neuts (auto) 7.4 Absolute Nucleated RBC 0.000 Nucleated RBC % (auto) 0.0 D-Dimer High Sensitivty < 150 Anion Gap 16 Estim Creat Clear Calc 142.3 Estimated GFR > 60 POC Glucose Random Glucose 105 Calcium 9.2 Total Bilirubin 0.2 Direct Bilirubin < 0.2 AST 18 ALT 28 Alkaline Phosphatase 73 Troponin I High Sens Total Protein 6.8 Albumin 4.4 Beta HCG, Quant < 2 COVID-19 (ANA) COVID-19 Clin Com 06/05/22 06/05/22 06/05/22 17:34 17:34 18:51 MCV MCH MCHC RDW Plt Count MPV Immature Gran % (Auto) Neut % (Auto) Lymph % (Auto) [place] % (Auto) Eos % (Auto) Baso % (Auto) Lymph # (Auto) [place] # (Auto) Eos # (Auto) Baso # (Auto) Abs Immat Gran (auto) Absolute Neuts (auto) Absolute Nucleated RBC Nucleated RBC % (auto) D-Dimer High Sensitivty Anion Gap Estim Creat Clear Calc Estimated GFR POC Glucose 87 Random Glucose Calcium Total Bilirubin Direct Bilirubin AST ALT Alkaline Phosphatase Troponin I High Sens < 3.5 Total Protein Albumin Beta HCG, Quant COVID-19 (ANA) Negative COVID-19 Clin Com See Note Imaging Radiologist's Impressions: Impressions Chest X-Ray 06/05/22 16:38 IMPRESSION: No acute finding. Assessment and Plan (1) Near syncope: Status: Acute (2) Palpitation: Status: Acute (3) Morbid obesity with BMI of 45.0-49.9, adult: Status: Acute (4) Diabetes: Status: Acute (5) Bipolar disease, chronic: Status: Acute (6) Hypertension: Status: Acute Plan This is a 47-year-old female with a pertinent history of yra-jzrbjyj-olvecsopi diabetes mellitus, essential hypertension, mixed hyperlipidemia, bipolar disorder who presents to the emergency department for evaluation of palpitations and near syncope. #. Presyncope, concern for cardiogenic in origin #. 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 Consulted Cardiology to evaluate in a.m.. Orthostatic vital signs ordered in the ER to complete workup, pending. Patient is normal sinus rhythm at the time of evaluation in the ER. Closely monitor overnight. Patient is on beta-sheila for essential hypertension #. Essential hypertension -continue home medications #. Yya-xogaxfq-emsocuzud diabetes mellitus -continue metformin and Januvia #. Bipolar disorder -mood stable admission. No suicidal or homicidal ideations. Continue home medications DVT prophylaxis: Lovenox 40 mg daily Full code Diet: Cardiac diet Quality Stroke Does the patient have a stroke diagnosis?: No VTE Prior VTE?: No VTE Risk Level:: Medical - moderate - high VTE Device Contraindication: Treatment Not Indicated VTE Drug Contraindication: N/A - Med Ordered
[2022-06-05] MEDS: clonazePAM 1 MG TABLET PO (21:12)
[2022-06-05] MEDS: Atorvastatin Calcium 20 MG TABLET PO (21:12)
[2022-06-05] MEDS: Melatonin 3 MG TABLET 6 MG PO (21:12)
[2022-06-05] MEDS: Acetaminophen 325 MG TABLET 650 MG PO (21:12)
[2022-06-05] MEDS: cloZAPine 100 MG TABLET 200 MG PO (22:01)
[2022-06-06] VITALS (9 sets, daily range): BP systolic 100–151; BP diastolic 52–90; PULSE 65–90; RESP 18–22; TEMP 35.9–36.9; O2SAT 93–98; BMI 50.1
[2022-06-06] MEDS: Omeprazole 20 MG CAPSULE.DR PO ×2 (05:55→17:06)
[2022-06-06 06:59] LABS: MANUAL DIFF FLAG NO
--- NOTE | 2022-06-06 07:00 | CA_ITS ---
Transthoracic Echocardiogram Patient (Last, First, Middle): Felicia Fletcher, Gender: Female Date of : 1975 Age: 47 Procedure Date: 06/06/2022 Procedure Type: Transthoracic Echocardiogram Location: [facility] [place] Height: 175.26 cm Weight: 144.7 kg BSA: 2.52 m2 Heart Rate: bpm BP: 131 / 79 mmHg Tax Manager Cpa: Referring MD: Blossom Lindquist MD Symptoms: presycnope Study Quality: Adequate with Contrast ECG Rhythm: Sinus Conclusions: - The left ventricular systolic function is normal. The visually estimated ejection fraction is between 60-65%. - No obvious valvular pathology seen on this study. Findings Procedure Information Contrast agent, definity, is being given per protocol without apparent complications. Left Ventricle Normal left ventricular cavity size. There is mildly increased left ventricular wall thickness. The left ventricular systolic function is normal. The visually estimated ejection fraction is between 60-65%. There is no evidence of regional wall motion abnormalities. Diastolic function is normal for age. Right Ventricle Normal right ventricular cavity size and systolic function. Atria Both atria are normal in size. Aortic Valve There is a normal trileaflet aortic valve. There is no aortic valve stenosis. There is no aortic valve regurgitation. Mitral Valve The mitral valve appears normal. There is no mitral valve regurgitation. There is no mitral valve stenosis. Pulmonic Valve The pulmonic valve is likely normal. Tricuspid Valve Normal tricuspid valve structure. There is no tricuspid valve regurgitation. The right ventricular systolic pressure is not calculated. There is no evidence of pulmonary hypertension. Great Vessels The aortic annulus, sinuses of valsalva, and asc aorta are normal in size. Venous The inferior vena cava is normal in size and collapses less than 50% with inspiration. Pericardium/Pleural There is no evidence of pericardial effusion. Prior Study Comparison No prior study available for comparison. Recommendations, Care & Conclusions No obvious valvular pathology seen on this study. Measurements 2D Linear Measurements IVSd: 1.27 0.6-0.9/0.6-1.0 cm LVIDd: 4.58 3.9-5.3/4.2-5.9 cm LVIDd Index: 1.82 2.4-3.2/2.2-3.1 cm/m2 LVIDs: 3.00 2.0-3.6 cm LVPWd: 1.21 0.7-1.1 cm Ao Root: 3.10 2.1-3.5 cm LA Diam: 4.30 2.7-3.8/3.0-4.0 cm LAIDs Index: 1.71 1.5-2.3 cm/m2 LV Mass: 266.06 67-162/88-224 g LV Mass Index: 105.58 43-95/49-115 g/m2 LVOT Diam: 2.10 3.0+(-)1.3 cm 2D Systolic Function EF 4C: 63.70 >55% EF 2C: 79.30 >55% EF BiP: 73.20 >55% Mitral Valve MV Pk E: 0.82 MV PK A: 0.82 MV Decel Time: 278.00 E/A: 1.00 E'Lateral: 9.57 E'Medial: 7.40 E/E' Med: 11.10 E/E' Lat: 8.50 PHT: 81.00 MVA PHT: 2.72 Decel Mifflin: 2.95 Aortic Valve AoV Pk Gonzalez: 1.33 AoV Mn Gonzalez: 0.86 AoV VTI: 0.28 AoV Pk Grad: 7.00 Aov Mn Grad: 4.00 RAINA Cont.VTI: 2.84 LVOT LVOT Pk Gonzalez: 1.06 LVOT Mn Gonzalez: 0.69 LVOT VTI: 0.23 LVOT Pk Grad: 4.00 LVOT Mn Grad: 2.00 LVOT Diam: 2.10 LVOT Area: 3.46 Diastolic Function MV Pk E: 0.82 MV Pk A: 0.82 E/A: 1.00 E'Medial: 7.40 E/E' Med: 11.10 E' Laterial: 9.57 E/E' Lat: 8.50 Right Ventricle TAPSE (mm): 21.00 TVS' Gonzalez: 9.00 Tricuspid Valve TR Pk Gonzalez: 1.55 TR Pk Grad: 10.00 RA Press: 8.00 RVSP: 18.00 Great Vessels Aorta Ao Root-2D: 3.10 2.0-3.7 cm Ao Asc: 3.00 2.1-3.4 cm Pulmonary Valve PV Pk Gonzalez: 1.10 Peak PV Grad: 5.00 Updated in Other Vendor System with Status of Final Enzo Jay MD electronically signed on 06/06/2022 4:30:17 PM with status of Final
[2022-06-06 07:09] LABS: Basophils Percent Auto 0.4 % (0-2); Eosinophils Absolute Auto 0.1 X10*3/uL (0.0-0.4); Eosinophils Percent Auto 1.1 % (0-4); Hematocrit 38.2 % (37.0-47.0); Hemoglobin 12.6 g/dl (12.0-16.0); Imm Gran Abs Auto 0.03 X10*3/uL (0.00-0.03); Imm Gran Pct Auto 0.4 % (0.0-0.4); Lymphocytes Absolute Auto 2.3 X10*3/uL (1.2-4.9); Lymphocytes Percent Auto 31.5 % (20-40); Mean Corpuscular Hemoglobin 31.2 pg (27.0-33.0); Mean Corpuscular Volume 94.6 fL (80.0-98.0); Monocytes Absolute Auto 0.4 X10*3/uL (0.1-1.2); Monocytes Percent Auto 5.9 % (2-11); Neutrophils Absolute Auto 4.4 x10*3/uL (2.0-8.3); Neutrophils Percent Auto 60.7 % (45-73); Platelet Count 241 X10*3/uL (160-400); Red Blood Count 4.04 X10*6/uL (4.20-5.50); Red Cell Distribution Width 12.9 % (11.0-16.0); White Blood Count 7.3 X10*3/uL (4.8-10.8)
[2022-06-06 07:33] LABS: Anion Gap 16 (12-20); Carbon Dioxide 24 mmol/L (22-29); Chloride 107 mmol/L (96-108); Creatinine Clr Calc Pharmacy 151.1; Estimated Glomerular Filt Rate > 60; Glucose Random 108 mg/dL (60-115); Potassium 4.3 mmol/L (3.3-5.1); Sodium 143 mmol/L (135-145)
[2022-06-06 07:48] LABS: Blood Urea Nitrogen 14 mg/dL (9-16)
[2022-06-06] MEDS: lisinopriL 40 MG TABLET PO (07:52)
[2022-06-06] MEDS: metFORMIN HCl 1,000 MG TABLET 1000 MG PO ×2 (07:52→17:06)
[2022-06-06] MEDS: Mirabegron 50 MG TAB.ER.24H PO (07:52)
[2022-06-06] MEDS: SITagliptin Phosphate 50 MG TABLET PO (07:52)
[2022-06-06] MEDS: 0.9 % Sodium Chloride Flush 3 ML SYRINGE IVFLUSH (07:53)
[2022-06-06] MEDS: clonazePAM 1 MG TABLET PO ×2 (07:53→19:48)
[2022-06-06] MEDS: Metoprolol Succinate ER 50 MG TAB.ER.24H PO (07:53)
--- NOTE | 2022-06-06 09:16 | PM.CNCAR ---
History of Present Illness History of Present Illness Date of Service: 06/06/22 Chief complaint: Palpitations and near syncope Narrative: This is a cardiology consultation regarding palpitations and presyncope. Patient does not have any known cardiac issues. She denies any coronary disease or myocardial infarction or cardiomyopathy or in fact any cardiac issues whatsoever. She has morbid obesity. Has obstructive sleep apnea on CPAP. Type 2 diabetes. Several other comorbidities. She states that she was doing some repair on a door and was sitting on a stool or so. Then all of a sudden, she felt sweaty and dizzy. She also felt her heart was racing. No true loss of consciousness. After few minutes, she felt better. She has had some episodes of palpitation on and off for several days now. After being in the hospital, EKG or telemetry has been essentially unremarkable. She had 1 further episode of something similar in the hospital but again nothing on telemetry. Otherwise, she denies any anginal-type symptoms or in fact anything cardiac related. She states that her activity level otherwise essentially unlimited and she can do everything without limitations. Review of Systems Review of Systems: Yes all other systems are reviewed and are negative Constitutional: Constitutional: Reports as per HPI Eyes: Eyes: Reports as per HPI ENT: Reports as per HPI Cardiovascular: Cardiovascular: Reports as per HPI, Denies acrocyanosis, Denies cool extremities, Denies chest pain, Denies leg edema, Reports lightheadedness, Reports palpitations and Denies dyspnea Respiratory: Respiratory: Reports as per HPI, Reports no additional respiratory complaints and Denies dyspnea Gastrointestinal: Gastrointestinal: Reports as per HPI and Reports no additional gastrointestinal complaints Genitourinary: Genitourinary: Reports as per HPI Musculoskeletal: Musculoskeletal: Reports no additional musculoskeletal complaints and Reports as per HPI Integumentary/Breasts: Skin/Breast: Reports system reviewed and no additional complaints, except as docu Neurologic: Reports system reviewed and no additional complaints, except as documented and Reports as per HPI Psychiatric: Psychiatric: Reports no additional psychiatric complaints and Reports as per HPI Endocrine: Endocrine: Reports no additional endocrine complaints, Reports as per HPI and Reports palpitations Hematologic/Lymphatic: Hematologic/Lymphatic: Reports no additional hematologic/lymphatic complaints and Reports as per HPI Allergic/Immunologic: Allergic/Immunologic: Reports no additional allergic/immunologic complaints and Reports as per HPI [facility] Past Medical History Medical History Anxiety Bipolar disease, chronic Depression GERD (gastroesophageal reflux disease) High cholesterol Hypertension Migraines Morbid obesity with BMI of 45.0-49.9, adult Obstructive sleep apnea PCOS (polycystic ovarian syndrome) Pre-diabetes Renal colic Thrombosed external hemorrhoid Family History Family History (Updated 06/06/22 @ 09:18 by Enzo Jay MD) Father Coronary artery disease Other Breast cancer Surgical History Surgical History History of cholecystectomy History of dilation and curettage Social History Social History Household Members: Spouse and Children Housing: Apartment Do you presently have visiting nurse or other home services: No Alcohol intake: current Alcohol intake frequency: holidays/special occasions only Alcohol type: hard liquor Patient Tobacco Use Status: Current everyday Tobacco user Tobacco use type: Cigarette Cigarette Packs Per Day: 1 Cigarettes Per Day: 20.0 Substance Use Type: Marijuana Meds Allergies Allergy/AdvReac Type Severity Reaction Status Date / Time Penicillins [PENICILLINS] Allergy Severe ANAPHYLAXIS Verified 05/15/22 11:31 adhesive [ADHESIVE] Allergy Unknown RASH Verified 05/15/22 11:31 artichoke [ARTICHOKE] Allergy Unknown RASH Verified 05/15/22 11:31 carbamazepine [From TEGRETOL] Allergy Unknown MIGRAINES Verified 05/15/22 11:31 cariprazine [From VRAYLAR] Allergy Unknown LEG CRAMPS Verified 05/15/22 11:31 fentanyl [FENTANYL] Allergy Unknown RASH Verified 05/15/22 11:31 lamotrigine [From LAMICTAL] Allergy Unknown RASH Verified 05/15/22 11:31 lithium [LITHIUM] AdvReac Severe tremor and Verified 05/15/22 11:31 falls Active Medications: Current Medications Acetaminophen (Acetaminophen 325 Mg Tablet) 650 mg PO Q6H PRN PRN Reason: Pain, Mild (Pain Scale 1-3) Last Admin: 06/05/22 21:12 Dose: 650 mg Atorvastatin Calcium (Atorvastatin Calcium 20 Mg Tablet) 20 mg PO BEDTIME [facility] Last Admin: 06/05/22 21:12 Dose: 20 mg Clonazepam (Clonazepam 1 Mg Tablet) 1 mg PO BID [facility] Last Admin: 06/06/22 07:53 Dose: 1 mg Clonazepam (Clonazepam 1 Mg Tablet) 1 mg PO DAILY PRN PRN Reason: Anxiety Clozapine (Clozapine 100 Mg Tablet) 200 mg PO BEDTIME [facility] Last Admin: 06/05/22 22:01 Dose: 200 mg Enoxaparin Sodium (Enoxaparin Sodium 40 Mg/0.4 Ml Syringe) 40 mg SUBCUT Q24H [facility] Last Admin: 06/05/22 21:18 Dose: Not Given Lisinopril (Lisinopril 40 Mg Tablet) 40 mg PO DAILY [facility]; Protocol Last Admin: 06/06/22 07:52 Dose: 40 mg Melatonin (Melatonin 3 Mg Tablet) 6 mg PO BEDTIME PRN PRN Reason: Insomnia Last Admin: 06/05/22 21:12 Dose: 6 mg Metformin HCl (Metformin Hcl 1,000 Mg Tablet) 1,000 mg PO BIDWM [facility] Last Admin: 06/06/22 07:52 Dose: 1,000 mg Metoprolol Succinate (Metoprolol Succinate Er 50 Mg Tab.Er.24h) 50 mg PO DAILY [facility]; Protocol Last Admin: 06/06/22 07:53 Dose: 50 mg Mirabegron (Mirabegron 50 Mg Tab.Er.24h) 50 mg PO DAILY [facility] Last Admin: 06/06/22 07:52 Dose: 50 mg Omeprazole (Omeprazole 20 Mg Capsule.Dr) 20 mg PO BID@0630,1630 [facility] Last Admin: 06/06/22 05:55 Dose: 20 mg Ondansetron HCl (Ondansetron Hcl 4 Mg/2 Ml Vial) 4 mg IVPUSH Q8H PRN PRN Reason: Nausea and Vomiting Sitagliptin Phosphate (Sitagliptin Phosphate 50 Mg Tablet) 50 mg PO DAILY [facility] Last Admin: 06/06/22 07:52 Dose: 50 mg Sodium Chloride (0.9 % Sodium Chloride Flush 3 Ml Syringe) [facility] Last Admin: 06/06/22 07:53 Dose: 3 ml Home Medications Medication Instructions Recorded Confirmed Last Taken Type pantoprazole 40 mg tablet,delayed 40 mg PO BID@0630,1630 11/22/20 06/05/22 06/05/22 History release mirabegron 50 mg tablet,extended 1 tab PO DAILY 06/19/21 06/05/22 06/05/22 History release 24 hr (Myrbetriq) atorvastatin 20 mg tablet 1 tab PO BEDTIME 11/13/21 06/05/22 06/04/22 History clonazepam 1 mg tablet 1 tab PO BID anxiety 11/13/21 06/05/22 06/05/22 History clozapine 100 mg tablet 200 mg PO BEDTIME 11/13/21 06/05/22 06/04/22 History lisinopril 40 mg tablet 40 mg PO DAILY 11/13/21 06/05/22 06/05/22 History metformin 1,000 mg tablet 1 tab PO BIDWM 11/13/21 06/05/22 06/05/22 History metoprolol succinate 50 mg 1 tab PO DAILY 11/13/21 06/05/22 06/05/22 History tablet,extended release 24 hr clonazepam 1 mg tablet 1 tab PO DAILY PRN Anxiety 04/17/22 06/05/22 Unknown History sitagliptin 50 mg tablet (Januvia) 50 mg PO DAILY 04/17/22 06/05/22 06/05/22 History Physical Exam Vital Signs: Vital Signs: Last Vital Signs Temp 97.4 F 06/06/22 07:30 Pulse 86 06/06/22 07:30 Resp 18 06/06/22 07:30 BP 131/79 06/06/22 07:30 Pulse Ox 96 06/06/22 07:30 O2 Del Method 06/06/22 07:30 BMI result Body Mass Index 50.1 Const: General: comfortable and no acute distress Orientation/consciousness: patient oriented x3 HEENT: Other: Unremarkable Head: Yes normal to inspection Neck: Neck: Yes normal visual inspection Chest: Chest palpation & inspection: normal inspection of the chest Resp: Auscultation: clear to auscultation bilaterally Cardio: Palpation: normal PMI Heart sounds: S1 normal heart sound present, S2 normal heart sound present, no gallops, no murmurs and no rubs GI: Palpation (GI): Soft to palpation Back/Spine/Pelvis: Other: unremarkable Skin: General skin exam: no rashes or lesions noted Neuro: General: patient oriented x3 Extrem: General: Yes normal to inspection Psych: Mental Status: mental status grossly normal Objective Labs and Meds Result diagrams: 06/06/22 06:42 06/06/22 06:42 Lab results: Laboratory Results - last 24 hr 06/05/22 06/05/22 06/05/22 17:34 17:34 17:34 WBC 11.4 H RBC 4.08 L Hgb 12.7 Hct 38.1 MCV 93.4 MCH 31.1 MCHC 33.3 RDW 13.0 Plt Count 234 MPV 9.6 Immature Gran % (Auto) 0.5 H Neut % (Auto) 65.0 Lymph % (Auto) 28.7 [place] % (Auto) 4.9 Eos % (Auto) 0.6 Baso % (Auto) 0.3 Lymph # (Auto) 3.3 [place] # (Auto) 0.6 Eos # (Auto) 0.1 Baso # (Auto) 0.0 Abs Immat Gran (auto) 0.06 H Absolute Neuts (auto) 7.4 Absolute Nucleated RBC 0.000 Nucleated RBC % (auto) 0.0 D-Dimer High Sensitivty < 150 Sodium 144 Potassium 4.3 Chloride 104 Carbon Dioxide 28 Anion Gap 16 BUN 9 Creatinine 0.73 Estim Creat Clear Calc 142.3 Estimated GFR > 60 POC Glucose Random Glucose 105 Calcium 9.2 Total Bilirubin 0.2 Direct Bilirubin < 0.2 AST 18 ALT 28 Alkaline Phosphatase 73 Troponin I High Sens Total Protein 6.8 Albumin 4.4 Beta HCG, Quant < 2 COVID-19 (ANA) COVID-Tanium 06/05/22 06/05/22 06/05/22 17:34 17:34 18:51 WBC RBC Hgb Hct MCV MCH MCHC RDW Plt Count MPV Immature Gran % (Auto) Neut % (Auto) Lymph % (Auto) [place] % (Auto) Eos % (Auto) Baso % (Auto) Lymph # (Auto) [place] # (Auto) Eos # (Auto) Baso # (Auto) Abs Immat Gran (auto) Absolute Neuts (auto) Absolute Nucleated RBC Nucleated RBC % (auto) D-Dimer High Sensitivty Sodium Potassium Chloride Carbon Dioxide Anion Gap BUN Creatinine Estim Creat Clear Calc Estimated GFR POC Glucose 87 Random Glucose Calcium Total Bilirubin Direct Bilirubin AST ALT Alkaline Phosphatase Troponin I High Sens < 3.5 Total Protein Albumin Beta HCG, Quant COVID-19 (ANA) Negative COVID-19 Clin Com See Note 06/06/22 06/06/22 06:42 06:42 WBC 7.3 RBC 4.04 L Hgb 12.6 Hct 38.2 MCV 94.6 MCH 31.2 MCHC 33.0 RDW 12.9 Plt Count 241 MPV 10.0 Immature Gran % (Auto) 0.4 Neut % (Auto) 60.7 Lymph % (Auto) 31.5 [place] % (Auto) 5.9 Eos % (Auto) 1.1 Baso % (Auto) 0.4 Lymph # (Auto) 2.3 [place] # (Auto) 0.4 Eos # (Auto) 0.1 Baso # (Auto) 0.0 Abs Immat Gran (auto) 0.03 Absolute Neuts (auto) 4.4 Absolute Nucleated RBC 0.000 Nucleated RBC % (auto) 0.0 D-Dimer High Sensitivty Sodium 143 Potassium 4.3 Chloride 107 Carbon Dioxide 24 Anion Gap 16 BUN 14 D Creatinine 0.69 Estim Creat Clear Calc 151.1 Estimated GFR > 60 POC Glucose Random Glucose 108 Calcium 9.0 Total Bilirubin Direct Bilirubin AST ALT Alkaline Phosphatase Troponin I High Sens Total Protein Albumin Beta HCG, Quant COVID-19 (ANA) COVID-19 Clin Com ECG Interpretation: EKG shows sinus rhythm at 85/Min; no significant ST-T changes and otherwise unremarkable. Normal ND and corrected QT. Telemetry shows sinus rhythm. Imaging Radiologist's impression: Impressions Chest X-Ray 06/05/22 16:38 IMPRESSION: No acute finding. Assessment and Plan (1) Near syncope: Status: Acute (2) Palpitation: Status: Acute Plan EKG unremarkable. High sensitivity troponins within normal limits. Blood glucose seems to be within normal limits 2. Other labs grossly unremarkable. With regard to palpitations, possible atrial arrhythmias but that should and still lead to syncopal episode or presyncope. Vasovagal episode possible. Hypoglycemia or hyperglycemia are other possibilities. However, workup so far is essentially unremarkable. We will get an echocardiogram as well for cardiac function assessment. Subsequently, outpatient Holter for a week or 2 to further assess for arrhythmias. Discussed with patient about the same and she is agreeable. Also discussed with Dr. Lindquist. Procedures Date of Service Date of Service: 06/06/22
--- NOTE | 2022-06-06 09:23 | P.PNIM_ITS ---
Subjective Subjective Date of Service: 06/06/22 Interval History: c/o lightheadedness + palpitations this AM, resolved no events on telemetry did not tolerate orthostatics yesterday Review of Systems Review of Systems: Yes all other systems are reviewed and are negative Physical Exam Vital Signs: Vital Signs: Last Vital Signs Temp 97.4 F 06/06/22 07:30 Pulse 86 06/06/22 07:30 Resp 18 06/06/22 07:30 BP 131/79 06/06/22 07:30 Pulse Ox 96 06/06/22 07:30 O2 Del Method 06/06/22 07:30 BMI result Body Mass Index 50.1 Gen: in no acute distress HEENT: sclera anicteric, moist mucus membranes Neck: supple Lungs: clear to auscultation bilaterally Heart: regular rate and rhythm, no murmurs Abd: soft, non-tender, non-distended, obese Ext: no edema Skin: warm/well-perfused Neuro: alert and oriented x3, no focal findings Psych: appropriate affect Objective Data Active Medications Acetaminophen (Acetaminophen 325 Mg Tablet) 650 mg PO Q6H PRN PRN Reason: Pain, Mild (Pain Scale 1-3) Last Admin: 06/05/22 21:12 Dose: 650 mg Documented By: DUSTY Atorvastatin Calcium (Atorvastatin Calcium 20 Mg Tablet) 20 mg PO BEDTIME [facility] Last Admin: 06/05/22 21:12 Dose: 20 mg Documented By: DUSTY Clonazepam (Clonazepam 1 Mg Tablet) 1 mg PO BID [facility] Last Admin: 06/06/22 07:53 Dose: 1 mg Documented By: SANJUANITA Clonazepam (Clonazepam 1 Mg Tablet) 1 mg PO DAILY PRN PRN Reason: Anxiety Clozapine (Clozapine 100 Mg Tablet) 200 mg PO BEDTIME [facility] Last Admin: 06/05/22 22:01 Dose: 200 mg Documented By: ELADIA Dextrose (Dextrose 50 % 25 Gm/50 Ml Syringe) 25 gm IVPUSH Q15M PRN; Protocol PRN Reason: per Hypoglycemia Standing Ord. Enoxaparin Sodium (Enoxaparin Sodium 40 Mg/0.4 Ml Syringe) 40 mg SUBCUT Q24H [facility] Last Admin: 06/05/22 21:18 Dose: Not Given Documented By: DUSTY Non-Admin Reason: declined Glucose (Glucose Gel 15 Gm Gel..Gram.) 15 gm PO Q15M PRN; Protocol PRN Reason: per Hypoglycemia Standing Ord. Insulin Human Lispro (Insulin Lispro 100 Unit/Ml 3 Ml Vial) 0 unit SUBCUT QIDACHS [facility]; Protocol Lisinopril (Lisinopril 40 Mg Tablet) 40 mg PO DAILY [facility]; Protocol Last Admin: 06/06/22 07:52 Dose: 40 mg Documented By: SANJUANITA Melatonin (Melatonin 3 Mg Tablet) 6 mg PO BEDTIME PRN PRN Reason: Insomnia Last Admin: 06/05/22 21:12 Dose: 6 mg Documented By: DUSTY Metformin HCl (Metformin Hcl 1,000 Mg Tablet) 1,000 mg PO BIDWM [facility] Last Admin: 06/06/22 07:52 Dose: 1,000 mg Documented By: SANJUANITA Metoprolol Succinate (Metoprolol Succinate Er 50 Mg Tab.Er.24h) 50 mg PO DAILY [facility]; Protocol Last Admin: 06/06/22 07:53 Dose: 50 mg Documented By: SANJUANITA Mirabegron (Mirabegron 50 Mg Tab.Er.24h) 50 mg PO DAILY [facility] Last Admin: 06/06/22 07:52 Dose: 50 mg Documented By: SANJUANITA Omeprazole (Omeprazole 20 Mg Capsule.Dr) 20 mg PO BID@0630,1630 [facility] Last Admin: 06/06/22 05:55 Dose: 20 mg Documented By: AZIZA Ondansetron HCl (Ondansetron Hcl 4 Mg/2 Ml Vial) 4 mg IVPUSH Q8H PRN PRN Reason: Nausea and Vomiting Sitagliptin Phosphate (Sitagliptin Phosphate 50 Mg Tablet) 50 mg PO DAILY [facility] Last Admin: 06/06/22 07:52 Dose: 50 mg Documented By: SANJUANITA Sodium Chloride (0.9 % Sodium Chloride Flush 3 Ml Syringe) 3 ml IVFLUSH QSHIFT [facility] Last Admin: 06/06/22 07:53 Dose: 3 ml Documented By: SANJUANITA Labs CBC & Chem 7: 06/06/22 06:42 06/06/22 06:42 Labs: Laboratory Results - last 24 hr 10/11/22 10/11/22 10/11/22 17:34 17:34 17:34 MCV 93.4 MCH 31.1 MCHC 33.3 RDW 13.0 Plt Count 234 MPV 9.6 Immature Gran % (Auto) 0.5 H Neut % (Auto) 65.0 Lymph % (Auto) 28.7 [place] % (Auto) 4.9 Eos % (Auto) 0.6 Baso % (Auto) 0.3 Lymph # (Auto) 3.3 [place] # (Auto) 0.6 Eos # (Auto) 0.1 Baso # (Auto) 0.0 Abs Immat Gran (auto) 0.06 H Absolute Neuts (auto) 7.4 Absolute Nucleated RBC 0.000 Nucleated RBC % (auto) 0.0 D-Dimer High Sensitivty < 150 Anion Gap 16 Estim Creat Clear Calc 142.3 Estimated GFR > 60 POC Glucose Random Glucose 105 Calcium 9.2 Total Bilirubin 0.2 Direct Bilirubin < 0.2 AST 18 ALT 28 Alkaline Phosphatase 73 Troponin I High Sens Total Protein 6.8 Albumin 4.4 Beta HCG, Quant < 2 COVID-19 (ANA) COVID-19 MUJIN 06/05/22 06/05/22 06/05/22 17:34 17:34 18:51 MCV MCH MCHC RDW Plt Count MPV Immature Gran % (Auto) Neut % (Auto) Lymph % (Auto) [place] % (Auto) Eos % (Auto) Baso % (Auto) Lymph # (Auto) [place] # (Auto) Eos # (Auto) Baso # (Auto) Abs Immat Gran (auto) Absolute Neuts (auto) Absolute Nucleated RBC Nucleated RBC % (auto) D-Dimer High Sensitivty Anion Gap Estim Creat Clear Calc Estimated GFR POC Glucose 87 Random Glucose Calcium Total Bilirubin Direct Bilirubin AST ALT Alkaline Phosphatase Troponin I High Sens < 3.5 Total Protein Albumin Beta HCG, Quant COVID-19 (ANA) Negative COVID-19 Clin Com See Note 06/06/22 06/06/22 06:42 06:42 MCV 94.6 MCH 31.2 MCHC 33.0 RDW 12.9 Plt Count 241 MPV 10.0 Immature Gran % (Auto) 0.4 Neut % (Auto) 60.7 Lymph % (Auto) 31.5 [place] % (Auto) 5.9 Eos % (Auto) 1.1 Baso % (Auto) 0.4 Lymph # (Auto) 2.3 [place] # (Auto) 0.4 Eos # (Auto) 0.1 Baso # (Auto) 0.0 Abs Immat Gran (auto) 0.03 Absolute Neuts (auto) 4.4 Absolute Nucleated RBC 0.000 Nucleated RBC % (auto) 0.0 D-Dimer High Sensitivty Anion Gap 16 Estim Creat Clear Calc 151.1 Estimated GFR > 60 POC Glucose Random Glucose 108 Calcium 9.0 Total Bilirubin Direct Bilirubin AST ALT Alkaline Phosphatase Troponin I High Sens Total Protein Albumin Beta HCG, Quant COVID-19 (ANA) COVID-19 Clin Com Impressions Chest X-Ray 06/05/22 16:38 IMPRESSION: No acute finding. Assessment and Plan (1) Palpitation: Status: Acute (2) Near syncope: Status: Acute Plan d#2 47yo F with DM2, HTN, HLD, bipolar disorder admitted to observation for palpitations + near-syncope # presycnope # palpitations - continue cardiac monitoring, Cardiology consult- obtain TTE + outpt Holter monitoring, repeat orthostatic signs, check fingersticks to r/o hypoglycemia # HTN - continue metoprolol + lisinopril # DM2 - check A1c, continue MTF + sitagliptin # bipolar disorder - continue cloazpaine + clonazepam, # VTE ppx: LMWH In my clinical judgment, the patient requires continued hospitalization for the following reasons: evaluation of palpitations/presyncope Quality Stroke Does the patient have a stroke diagnosis?: No VTE Prior VTE?: No VTE Risk Level:: Medical - moderate - high VTE Device Contraindication: Treatment Not Indicated VTE Drug Contraindication: N/A - Med Ordered
--- NOTE | 2022-06-06 09:39 | MHC.CM.PN ---
MCKAYLA DELIVERED CM MET WITH PT, LIVES WITH SPOUSE AND DAUGHTER. NO SERVICES AT PRESENT. USES CPAP AT NIGHT. NO HCP AND DECLINES TO FILL ONE OUT AT THIS TIME. COVID VAX X 2 WITH ANH. PCP RADHA AT [facility]. FAMILY WILL TRANSPORT HOME AT [place]
[2022-06-06 10:19] LABS: Estimated Average Glucose 128 mg/dL; Hemoglobin A1c % 6.1 %
[2022-06-06] MEDS: 0.9 % Sodium Chloride 1,000 ML 100 ML IVCONT ×2 (10:52→19:57)
[2022-06-06 12:01] LABS: Glucose, Whole Blood 81 mg/dL (60-115)
[2022-06-06 16:06] LABS: Glucose, Whole Blood 81 mg/dL (60-115)
[2022-06-06 19:40] LABS: Glucose, Whole Blood 137 mg/dL (60-115)
[2022-06-06] MEDS: cloZAPine 100 MG TABLET 200 MG PO (19:47)
[2022-06-06] MEDS: Atorvastatin Calcium 20 MG TABLET PO (19:47)
[2022-06-06] MEDS: Enoxaparin Sodium 40 MG/0.4 ML SYRINGE SUBCUT (19:48)
[2022-06-07 03:14] VITALS: BP 126/77; PULSE 77; RESP 18; TEMP 37.2; O2SAT 97
[2022-06-07] MEDS: 0.9 % Sodium Chloride 1,000 ML 100 ML IVCONT (05:43)
[2022-06-07] MEDS: Omeprazole 20 MG CAPSULE.DR PO (05:43)
[2022-06-07 07:25] VITALS: BP 123/68; PULSE 81; RESP 18; TEMP 36.4; O2SAT 96
[2022-06-07 07:30] LABS: Glucose, Whole Blood 113 mg/dL (60-115)
[2022-06-07] MEDS: metFORMIN HCl 1,000 MG TABLET 1000 MG PO (07:34)
[2022-06-07] MEDS: lisinopriL 40 MG TABLET PO (07:34)
[2022-06-07] MEDS: Metoprolol Succinate ER 50 MG TAB.ER.24H PO (07:34)
[2022-06-07] MEDS: Mirabegron 50 MG TAB.ER.24H PO (07:34)
[2022-06-07] MEDS: clonazePAM 1 MG TABLET PO (07:34)
[2022-06-07] MEDS: SITagliptin Phosphate 50 MG TABLET PO (07:35)
[2022-06-07 09:30] VITALS: BP 108/51; PULSE 75
[2022-06-07 09:45] VITALS: BP 141/76; BP 141/77; PULSE 87
--- NOTE | 2022-06-07 10:19 | PM.DS ---
DS: Providers Provider Date of Service: 06/07/22 Date of admission: 06/05/22 19:54 Date of discharge: 06/07/22 Primary care physician: Ann-Marie Camacho MD Consults: 06/05/22 20:09 Consult to Cardiology Routine Consulting Provider: Enzo Jay Reason for consultation: palpitations and pre-syncope Has provider been notified: No Attending physician on discharge: Shaan Johnson Discharging clinician: Joselin Leone DS: Diagnosis Discharge Diagnosis (1) Palpitation: Status: Acute (2) Near syncope: Status: Acute DS: Summary Hospital Course Hospital Course: From H&P on day of admission This is a 47-year-old female with a pertinent history of [id number] diabetes mellitus, essential hypertension, mixed hyperlipidemia, bipolar disorder who presents to the emergency department for evaluation of palpitations and near syncope.? Patient states she has been having palpitations for the last 2 weeks which last about 1 minute.? Yesterday, while she was putting nails on the wall she had sudden onset of palpitations followed by episode of near-syncope.? She did not lose consciousness but felt like she was about to.? Also had episode of chest tightness and mild dyspnea which resolved in 15 minutes.? Admits associated sweating.? Denies vomiting and admits adequate p.o. intake.? No history of cardiac arrhythmias and she does not have a digital advertising specialist.? Patient denies flushing prior to near syncope and no rhythmic jerking of extremities.? Denies fever, chills, chest discomfort, abdominal pain, changes in urinary or bowel habits.? Denies orthopnea, dyspnea, leg swelling Presyncope/palpitations. Patient was monitored on telemetry, no adverse events were noted. She underwent echocardiogram which showed no valvular or structural abnormalities. HsTroponin was negative, there were no ishcemic changes on EKG. She was evaluated by Cardiology who recommended outpatient Holter monitoring. Orthostatic blood pressure readings have been within normal limits. She has had no episodes of hypoglycemia. Although she has had episodes of palpitations during hospitalization, no events were noted on the monitor at the time of her symptoms. Time Spent with Patient Time attestation: Total time spent providing and/or coordinating discharge services: Discharge coordination time: Greater than 30 minutes Quality: Safe Use of Opioids Does Pt have an Active Cancer Diagnosis on the Problem List?: No Quality: Stroke Does the patient have a stroke diagnosis?: No Physical Exam Vital Signs: Vital Signs: Last Vital Signs Temp 97.5 F 06/07/22 07:25 Pulse 87 06/07/22 09:45 Resp 18 06/07/22 07:25 BP 141/76 H 06/07/22 09:45 Pulse Ox 96 06/07/22 07:25 O2 Del Method 06/07/22 07:25 BMI result Body Mass Index 50.1 Const: General: cooperative, comfortable, no acute distress, alert and awake Nutritional Appearance: obese Orientation/consciousness: patient oriented x3 Resp: Effort & Inspection: normal respiratory effort and able to speak in complete sentences Auscultation: clear to auscultation bilaterally Cardio: Rate: regular rate Heart sounds: S1 normal heart sound present and S2 normal heart sound present GI: Inspection: No distended Palpation (GI): Soft to palpation and nontender Neuro: General: patient oriented x3 and CN's II-XI intact bilaterally Extrem: General: Yes no pedal edema DS: Data Data Completed and Pending Labs on day of discharge: Laboratory Results - last 24 hr 06/06/22 06/06/22 06/06/22 06:42 11:18 15:59 POC Glucose 81 81 Estimat Average Glucose 128 Hemoglobin A1c % 6.1 06/06/22 06/07/22 19:36 07:27 POC Glucose 137 H 113 Estimat Average Glucose Hemoglobin A1c % Discharge Plan Discharge Patient Disposition: Home, Self-Care Discharge Diagnosis: palpitations presyncope Referrals: Ann-Marie Camacho MD [Primary Care Provider] - 1 Week Discharge Medications: Continued Myrbetriq 50 mg tablet extended release 24 hr 1 tab PO DAILY atorvastatin 20 mg tablet 1 tab PO BEDTIME clozapine 100 mg tablet 200 mg PO BEDTIME metoprolol succinate 50 mg tablet extended release 24 hr 1 tab PO DAILY clonazepam 1 mg tablet 1 tab PO BID metformin 1,000 mg tablet 1 tab PO BIDWM lisinopril 40 mg tablet 40 mg PO DAILY Januvia 50 mg tablet 50 mg PO DAILY clonazepam 1 mg tablet 1 tab PO DAILY PRN (Reason: Anxiety) Rx Instructions: TAKE 1 TABLET BY MOUTH TWICE DAILY NEEDED. MAY USE 1 ADDITIONAL FOR ANXIETY DIRECTED pantoprazole 40 mg tablet,delayed release (DR/EC) 40 mg PO BID@0630,5950 Discharge Orders: Discharge Order (Routine); Ordered 06/07/22 Ordered By: Joselin Leone Activity on Discharge: As tolerated Stand Alone Forms: Patient Portal Discharge page Care Plan Goals: see below Health Concerns: palpitations near syncope Plan of Treatment: No adverse events were noted on the monitor, no episodes of hypoglycemia. orthostatic blood pressure readings have been normal Follow up with Cardiology for outpatient Holter monitor call to schedule follow up with PCP Assessment: Observed for palpitations and near syncope - see discharge summary Discharge Date/Time: 06/07/22 01:00
--- NOTE | 2022-06-07 10:41 | PM.PNCARD ---
Subjective Subjective Date of Service: 06/07/22 Interval history: She states that she feels fine. No new complaints. Review of Systems Review of Systems All 13 review of systems are negative except as noted in HPI Yes all other systems are reviewed and are negative Constitutional: Reports as per HPI Eyes: Reports as per HPI Reports as per HPI Cardiovascular: Reports as per HPI, Denies acrocyanosis, Denies cool extremities, Denies chest pain, Denies leg edema, Denies lightheadedness, Denies palpitations and Denies dyspnea Respiratory: Reports as per HPI, Reports no additional respiratory complaints and Denies dyspnea Gastrointestinal: Reports as per HPI and Reports no additional gastrointestinal complaints Genitourinary: Reports as per HPI Musculoskeletal: Reports no additional musculoskeletal complaints and Reports as per HPI Skin/Breast: Reports system reviewed and no additional complaints, except as docu Reports system reviewed and no additional complaints, except as documented and Reports as per HPI Psychiatric: Reports no additional psychiatric complaints and Reports as per HPI Endocrine: Reports no additional endocrine complaints, Reports as per HPI and Denies palpitations Hematologic/Lymphatic: Reports no additional hematologic/lymphatic complaints and Reports as per HPI Allergic/Immunologic: Reports no additional allergic/immunologic complaints and Reports as per HPI Physical Exam Vital Signs: Last Vital Signs Temp 97.5 F 06/07/22 07:25 Pulse 87 06/07/22 09:45 Resp 18 06/07/22 07:25 BP 141/76 H 06/07/22 09:45 Pulse Ox 96 06/07/22 07:25 O2 Del Method 06/07/22 07:25 BMI result Body Mass Index 50.1 Const General: comfortable and no acute distress Orientation/consciousness: patient oriented x3 HEENT Other: Unremarkable Head: Yes normal to inspection Neck Neck: Yes normal visual inspection Chest Chest palpation & inspection: normal inspection of the chest Resp Auscultation: clear to auscultation bilaterally Cardio Palpation: normal PMI Heart sounds: S1 normal heart sound present, S2 normal heart sound present, no gallops, no murmurs and no rubs GI Palpation (GI): Soft to palpation Back/Spine/Pelvis Other: unremarkable Skin General skin exam: no rashes or lesions noted Neuro General: patient oriented x3 Extrem General: Yes normal to inspection Psych Mental Status: mental status grossly normal Objective Labs and Meds Result diagrams: 06/06/22 06:42 06/06/22 06:42 Lab results: Laboratory Results - last 24 hr 06/06/22 06/06/22 06/06/22 11:18 15:59 19:36 POC Glucose 81 81 137 H 06/07/22 07:27 POC Glucose 113 Progress Note: A&P Assessment and plan (1) Near syncope: Status: Acute (2) Palpitation: Status: Acute Plan EKG unremarkable. High sensitivity troponins within normal limits. Blood glucose seems to be within normal limits 2. Other labs grossly unremarkable. D-dimer is also normal. Echocardiogram with LVEF of 60-65% and otherwise unremarkable. On telemetry, 1 pause of 2.5 seconds, but it seems that she was probably breath holding for echocardiogram. Even so, should not lead to pre-syncope. Overall, no clear etiology so far. We will get an outpatient Holter monitor. Discussed with patient and she is agreeable. Discussed with Joselin Leone. Time Spent With Patient Time: Total time spent is greater than 50% in coordination of care (as documented) at patient's floor/unit and/or counseling patient: 25min. Progress Note: Quality Stroke Does the patient have a stroke diagnosis?: No Procedures Date of Service Date of Service: 06/07/22
--- NOTE | 2022-06-07 10:58 | MHC.CM.PN ---
Patient has been medically cleared for dc to home today, self care.
== END 2022-06-07 01:00 | disposition home or self-care (01) ==
LOC: HO.ED 19:27 → HO.EDOVER 20:06 → HO.IMC 06-06 00:52
PROVIDERS: Family Medicine; Admitting Provider Student in an Organized Health Care Education/Training Program; Emergency Provider Emergency Medicine Emergency Medical Services; PCP Internal Medicine; Visit Provider Physician Assistant Medical
DX: R55 Syncope and collapse (principal); R00.2 Palpitations; E11.9 Type 2 diabetes mellitus without complications; I10 Essential (primary) hypertension; E78.2 Mixed hyperlipidemia; K21.9 Gastro-esophageal reflux disease without esophagitis; F41.9 Anxiety disorder, unspecified; F31.9 Bipolar disorder, unspecified; G47.33 Obstructive sleep apnea (adult) (pediatric); F17.210 Nicotine dependence, cigarettes, uncomplicated; F12.90 Cannabis use, unspecified, uncomplicated; E66.01 Morbid (severe) obesity due to excess calories; Z68.43 Body mass index [BMI] 50.0-59.9, adult; Z20.822 Contact with and (suspected) exposure to COVID-19; Z79.02 Long term (current) use of antithrombotics/antiplatelets; Z79.84 Long term (current) use of oral hypoglycemic drugs; Z79.899 Other long term (current) drug therapy
CPT/HCPCS: 36415; 71045; 80048; 80076; 82947; 83036; 84484; 84702; 85025; 85379; 87635; 93005; 93306; 96360; 96361; 96372; 99205; 99219; 99285; J1650; Q9957

== ENCOUNTER 2022-06-13 11:04 | Outpatient (REF) | payer BC, MEDICARE, MEDICAID, SELFPAY ==
[2022-06-13 11:27] LABS: MANUAL DIFF FLAG NO
[2022-06-13 11:55] LABS: Basophils Percent Auto 0.2 % (0-2); Eosinophils Absolute Auto 0.1 X10*3/uL (0.0-0.4); Eosinophils Percent Auto 0.8 % (0-4); Hematocrit 38.7 % (37.0-47.0); Imm Gran Abs Auto 0.03 X10*3/uL (0.00-0.03); Imm Gran Pct Auto 0.3 % (0.0-0.4); Lymphocytes Absolute Auto 2.4 X10*3/uL (1.2-4.9); Lymphocytes Percent Auto 25.3 % (20-40); Mean Corpuscular HGB Conc 33.6 g/dl (31.0-35.0); Mean Corpuscular Hemoglobin 31.2 pg (27.0-33.0); Mean Corpuscular Volume 92.8 fL (80.0-98.0); Mean Platelet Volume 10.3 fL (9.4-12.3); Monocytes Absolute Auto 0.4 X10*3/uL (0.1-1.2); Monocytes Percent Auto 4.6 % (2-11); Neut%MD 68.8 %; Neutrophils Absolute Auto 6.6 x10*3/uL (2.0-8.3); Neutrophils Percent Auto 68.8 % (45-73); Platelet Count 271 X10*3/uL (160-400); Red Blood Count 4.17 X10*6/uL (4.20-5.50); WBCANC 9.6 X10*3/uL; White Blood Count 9.6 X10*3/uL (4.8-10.8)
== END 2022-06-13 11:05 | disposition home or self-care (01) ==
LOC: HO.LABR 11:04
PROVIDERS: PCP Internal Medicine; Visit Provider Clinical Nurse Specialist Psychiatric/Mental Health, Child & Adolescent
DX: F31.32 Bipolar disorder, current episode depressed, moderate (principal); Z79.899 Other long term (current) drug therapy
CPT/HCPCS: 36415; 85025

== ENCOUNTER 2022-06-20 13:03 | Emergency (ER) | payer BC, MEDICARE, MEDICAID, SELFPAY ==
--- NOTE | ~2022-06-20 | XR_ITS ---
EXAMINATION: XR CHEST CLINICAL INFORMATION: Shortness of breath and chest pain COMPARISON: June 05, 2022 and February 21, 2022 TECHNIQUE: Frontal view of the chest was obtained. FINDINGS: No significant abnormality is noted involving the heart, lungs, mediastinum, bony thorax or soft tissues. XR/XR chest 1V IMPRESSION: No acute disease.
[2022-06-20 13:17] VITALS: BP 148/100; PULSE 95; O2SAT 95
--- NOTE | 2022-06-20 13:19 | ECG_ITS ---
Test Reason : cp Blood Pressure : / mmHG Vent. Rate : 087 BPM Atrial Rate : 087 BPM P-R Int : 182 ms QRS Dur : 084 ms QT Int : 360 ms P-R-T Axes : 037 007 051 degrees QTc Int : 433 ms Normal sinus rhythm Minimal voltage criteria for LVH, may be normal variant ( R in aVL ) Borderline ECG When compared with ECG of 05-JUN-2022 12:07, No significant change was found Referred By: Generic ED Physician Electronically Signed By:SHANNON HERNANDEZ MD
[2022-06-20 14:09] VITALS: BP 137/84; PULSE 94; RESP 18; TEMP 36.1; O2SAT 95; BMI 49.8
[2022-06-20 14:25] LABS: MANUAL DIFF FLAG NO
[2022-06-20 14:26] LABS: Basophils Percent Auto 0.4 % (0-2); Eosinophils Absolute Auto 0.1 X10*3/uL (0.0-0.4); Eosinophils Percent Auto 0.8 % (0-4); Hematocrit 40.5 % (37.0-47.0); Hemoglobin 13.4 g/dl (12.0-16.0); Imm Gran Abs Auto 0.03 X10*3/uL (0.00-0.03); Imm Gran Pct Auto 0.3 % (0.0-0.4); Lymphocytes Absolute Auto 2.7 X10*3/uL (1.2-4.9); Lymphocytes Percent Auto 27.9 % (20-40); Mean Corpuscular HGB Conc 33.1 g/dl (31.0-35.0); Mean Corpuscular Hemoglobin 30.4 pg (27.0-33.0); Mean Corpuscular Volume 91.8 fL (80.0-98.0); Mean Platelet Volume 9.5 fL (9.4-12.3); Monocytes Absolute Auto 0.5 X10*3/uL (0.1-1.2); Monocytes Percent Auto 4.9 % (2-11); Neutrophils Absolute Auto 6.3 x10*3/uL (2.0-8.3); Neutrophils Percent Auto 65.7 % (45-73); Platelet Count 283 X10*3/uL (160-400); Red Blood Count 4.41 X10*6/uL (4.20-5.50); Red Cell Distribution Width 12.7 % (11.0-16.0); White Blood Count 9.6 X10*3/uL (4.8-10.8)
[2022-06-20 14:42] LABS: Anion Gap 15 (12-20); Blood Urea Nitrogen 10 mg/dL (9-16); Calcium 9.7 mg/dL (8.4-10.2); Carbon Dioxide 27 mmol/L (22-29); Chloride 103 mmol/L (96-108); Creatinine Clr Calc Pharmacy 146.4; Estimated Glomerular Filt Rate > 60; Glucose Random 98 mg/dL (60-115); Potassium 4.2 mmol/L (3.3-5.1); Sodium 141 mmol/L (135-145)
[2022-06-20 14:50] LABS: Troponin-I High Sensitivity < 3.5 ng/L (<3.5-17.0)
[2022-06-20 18:21] VITALS: BP 139/83; PULSE 91; RESP 19; O2SAT 98
[2022-06-20 18:50] LABS: Glucose, Whole Blood 68 mg/dL (60-115)
[2022-06-20 19:35] LABS: Glucose, Whole Blood 84 mg/dL (60-115)
[2022-06-20 20:49] VITALS: BP 139/84; PULSE 90; RESP 20; TEMP 36.7; O2SAT 97
--- NOTE | 2022-06-20 21:05 | PC.NURSE ---
Patient ate full sandwich and water, after blood sugar check
[2022-06-20 21:24] VITALS: BP 155/84; PULSE 91; RESP 19; TEMP 36.6; O2SAT 96
--- NOTE | 2022-06-20 21:29 | ED_ITS ---
HPI - Chest Pain General Chief Complaint: Chest Pain Stated Complaint: SOB 95% RA FROM URGENT CARE PER EMS Time Seen by Provider: 06/20/22 21:23 History of Present Illness HPI narrative: Patient is a 47-year-old female with a history of smoking, diabetes, hypertension, high cholesterol. No history of [place] in the past. Presents today with having generalized malaise weakness chest pain that is been constant since this morning. No diaphoresis. positive upper respiratory symptoms. Patient is vaccinated for COVID. Denies any extremity swelling. Patient from home. Has been seen in the past for chest pain. Patient denies any loss of consciousness any syncopal episodes today. Had a schedule Holter monitor next month. No leg swelling. No history of traveling. No history of blood clots in the past. Related Data Home Medications Medication Instructions Recorded Confirmed pantoprazole 40 mg tablet,delayed 40 mg PO BID@0630,1630 11/22/20 06/05/22 release mirabegron 50 mg tablet,extended 1 tab PO DAILY 06/19/21 06/05/22 release 24 hr (Myrbetriq) atorvastatin 20 mg tablet 1 tab PO BEDTIME 11/13/21 06/05/22 clonazepam 1 mg tablet 1 tab PO BID anxiety 11/13/21 06/05/22 clozapine 100 mg tablet 200 mg PO BEDTIME 11/13/21 06/05/22 lisinopril 40 mg tablet 40 mg PO DAILY 11/13/21 06/05/22 metformin 1,000 mg tablet 1 tab PO BIDWM 11/13/21 06/05/22 metoprolol succinate 50 mg 1 tab PO DAILY 11/13/21 06/05/22 tablet,extended release 24 hr clonazepam 1 mg tablet 1 tab PO DAILY PRN Anxiety 04/17/22 06/05/22 sitagliptin 50 mg tablet (Januvia) 50 mg PO DAILY 04/17/22 06/05/22 Previous Rx's Medication Instructions Recorded doxycycline hyclate 100 mg capsule 100 mg PO BID cough 7 days #14 caps 06/20/22 Allergies Allergy/AdvReac Type Severity Reaction Status Date / Time Penicillins [PENICILLINS] Allergy Severe ANAPHYLAXIS Verified 06/20/22 14:14 adhesive [ADHESIVE] Allergy Unknown RASH Verified 06/20/22 14:14 artichoke [ARTICHOKE] Allergy Unknown RASH Verified 06/20/22 14:14 carbamazepine [From TEGRETOL] Allergy Unknown MIGRAINES Verified 06/20/22 14:14 cariprazine [From VRAYLAR] Allergy Unknown LEG CRAMPS Verified 06/20/22 14:14 fentanyl [FENTANYL] Allergy Unknown RASH Verified 06/20/22 14:14 lamotrigine [From LAMICTAL] Allergy Unknown RASH Verified 06/20/22 14:14 lithium [LITHIUM] AdvReac Severe tremor and Verified 06/20/22 14:14 falls Review of Systems Review of Systems: Positive coughing upper respiratory symptoms positive shortness of breath. Positive chest pain Yes all other systems are reviewed and are negative PMFSH Past Medical History Attestation statement: The following information was validated with the patient. Medical History Anxiety Bipolar disease, chronic Depression Diabetes GERD (gastroesophageal reflux disease) High cholesterol Hypertension Migraines Morbid obesity with BMI of 45.0-49.9, adult Obstructive sleep apnea PCOS (polycystic ovarian syndrome) Pre-diabetes Renal colic Thrombosed external hemorrhoid Surgical History History of cholecystectomy History of dilation and curettage Family History Family History Father Coronary artery disease Other Breast cancer Social History Social History Household Members: Spouse and Children Housing: Apartment Do you presently have visiting nurse or other home services: No Alcohol intake: current Alcohol intake frequency: holidays/special occasions only Alcohol type: hard liquor Patient Tobacco Use Status: Current everyday Tobacco user Tobacco use type: Cigarette Cigarette Packs Per Day: 1 Cigarettes Per Day: 20.0 Substance Use Type: Marijuana Advance Directives: No Advance Directives Information Provided: No service: No Current occupational status: employed Physical Exam Vital Signs: Vital Signs: Last Vital Signs Temp 98.6 F 06/20/22 21:57 Pulse 87 06/20/22 21:57 Resp 19 06/20/22 21:57 BP 155/77 H 06/20/22 21:57 Pulse Ox 95 06/20/22 21:57 O2 Del Method 06/20/22 21:57 BMI result Body Mass Index 49.8 Appearance: Alert. Oriented X3. No acute distress. Eyes: Pupils equal, round and reactive to light. ENT: Pharynx normal. Neck: Normal inspection. Neck supple. No lymph nodes noted. No crepitus CVS: Normal heart rate and rhythm. Pulses normal. Normal S1 and S2 Respiratory: No respiratory distress. Breath sounds normal. No Wheezing. No rales Abdomen: Soft and nontender. No rigidity. No distention. good BS x4 Skin: Skin warm and dry. Normal skin color. Normal skin turgor. Extremities: No lower extremity edema. Neurovascular intact to all extremities. No Lacerations. No Rash Neuro: Oriented X 3. No motor deficit. No sensory deficit. Moving all extermities. No slurred speech MDM - Chest Pain MDM Narrative Medical decision making narrative: patient well appearing no acute distress. BMP was less than 10 no evidence for congestive heart failure. Chest x-ray was negative for any acute evidence of pneumonia pneumothorax. Patient's troponin was negative x2 sets. In the setting of atypical pain unlikely secondary to ACS. Patient's D-dimer is less than 150 no evidence for pulmonary emboli. EKG showed a sinus pattern heart rate was 80 positive LVH no significant changes from Previous. Patient's flu RSV COVID were all negative. Will give doxycycline for bronchitis. Will have patient follow-up on an outpatient basis. Asked patient to stop smoking. In stable condition. Medical Records Data Attestation: I reviewed the patient's medical records. Lab Data Attestation: I reviewed the patient's lab results. Result diagrams: 06/20/22 14:22 06/20/22 14:22 Labs: Lab Results 06/20/22 06/20/22 06/20/22 Range/Units 14:22 14:22 14:22 WBC 9.6 (4.8-10.8) X10*3/uL RBC 4.41 (4.20-5.50) X10*6/uL Hgb 13.4 (12.0-16.0) g/dl Hct 40.5 (37.0-47.0) % MCV 91.8 (80.0-98.0) fL MCH 30.4 (27.0-33.0) pg MCHC 33.1 (31.0-35.0) g/dl RDW 12.7 (11.0-16.0) % Plt Count 283 (160-400) X10*3/uL MPV 9.5 (9.4-12.3) fL Immature Gran % (Auto) 0.3 (0.0-0.4) % Neut % (Auto) 65.7 (45-73) % Lymph % (Auto) 27.9 (20-40) % [place] % (Auto) 4.9 (2-11) % Eos % (Auto) 0.8 (0-4) % Baso % (Auto) 0.4 (0-2) % Lymph # (Auto) 2.7 (1.2-4.9) X10*3/uL [place] # (Auto) 0.5 (0.1-1.2) X10*3/uL Eos # (Auto) 0.1 (0.0-0.4) X10*3/uL Baso # (Auto) 0.0 (0.0-0.2) X10*3/uL Abs Immat Gran (auto) 0.03 (0.00-0.03) X10*3/uL Absolute Neuts (auto) 6.3 (2.0-8.3) x10*3/uL Absolute Nucleated RBC 0.000 (0.0-0.012) X10*3/uL Nucleated RBC % (auto) 0.0 (0.0-0.2) /100WBC D-Dimer High Sensitivty NG/ML Sodium 141 (135-145) mmol/L Potassium 4.2 (3.3-5.1) mmol/L Chloride 103 (96-108) mmol/L Carbon Dioxide 27 (22-29) mmol/L Anion Gap 15 (12-20) BUN 10 (9-16) mg/dL Creatinine 0.71 (0.5-1.4) mg/dL Estim Creat Clear Calc 146.4 Estimated GFR > 60 POC Glucose (60-115) mg/dL Random Glucose 98 (60-115) mg/dL Calcium 9.7 D (8.4-10.2) mg/dL Troponin I High Sens < 3.5 (<3.5-17.0) ng/L B-Natriuretic Peptide (<100) pg/mL Influenza Type A (PCR) (Negative) Influenza Type B (PCR) (Negative) RSV RNA Qual (PCR) (Negative) SARS-CoV-2 RNA (RT-PCR) (Negative) 06/20/22 06/20/22 06/20/22 Range/Units 18:45 19:27 21:54 WBC (4.8-10.8) X10*3/uL RBC (4.20-5.50) X10*6/uL Hgb (12.0-16.0) g/dl Hct (37.0-47.0) % MCV (80.0-98.0) fL MCH (27.0-33.0) pg MCHC (31.0-35.0) g/dl RDW (11.0-16.0) % Plt Count (160-400) X10*3/uL MPV (9.4-12.3) fL Immature Gran % (Auto) (0.0-0.4) % Neut % (Auto) (45-73) % Lymph % (Auto) (20-40) % [place] % (Auto) (2-11) % Eos % (Auto) (0-4) % Baso % (Auto) (0-2) % Lymph # (Auto) (1.2-4.9) X10*3/uL [place] # (Auto) (0.1-1.2) X10*3/uL Eos # (Auto) (0.0-0.4) X10*3/uL Baso # (Auto) (0.0-0.2) X10*3/uL Abs Immat Gran (auto) (0.00-0.03) X10*3/uL Absolute Neuts (auto) (2.0-8.3) x10*3/uL Absolute Nucleated RBC (0.0-0.012) X10*3/uL Nucleated RBC % (auto) (0.0-0.2) /100WBC D-Dimer High Sensitivty NG/ML Sodium (135-145) mmol/L Potassium (3.3-5.1) mmol/L Chloride (96-108) mmol/L Carbon Dioxide (22-29) mmol/L Anion Gap (12-20) BUN (9-16) mg/dL Creatinine (0.5-1.4) mg/dL Estim Creat Clear Calc Estimated GFR POC Glucose 68 84 (60-115) mg/dL Random Glucose (60-115) mg/dL Calcium (8.4-10.2) mg/dL Troponin I High Sens < 3.5 (<3.5-17.0) ng/L B-Natriuretic Peptide < 10 (<100) pg/mL Influenza Type A (PCR) (Negative) Influenza Type B (PCR) (Negative) RSV RNA Qual (PCR) (Negative) SARS-CoV-2 RNA (RT-PCR) (Negative) 06/20/22 06/20/22 Range/Units 21:54 21:54 WBC (4.8-10.8) X10*3/uL RBC (4.20-5.50) X10*6/uL Hgb (12.0-16.0) g/dl Hct (37.0-47.0) % MCV (80.0-98.0) fL MCH (27.0-33.0) pg MCHC (31.0-35.0) g/dl RDW (11.0-16.0) % Plt Count (160-400) X10*3/uL MPV (9.4-12.3) fL Immature Gran % (Auto) (0.0-0.4) % Neut % (Auto) (45-73) % Lymph % (Auto) (20-40) % [place] % (Auto) (2-11) % Eos % (Auto) (0-4) % Baso % (Auto) (0-2) % Lymph # (Auto) (1.2-4.9) X10*3/uL [place] # (Auto) (0.1-1.2) X10*3/uL Eos # (Auto) (0.0-0.4) X10*3/uL Baso # (Auto) (0.0-0.2) X10*3/uL Abs Immat Gran (auto) (0.00-0.03) X10*3/uL Absolute Neuts (auto) (2.0-8.3) x10*3/uL Absolute Nucleated RBC (0.0-0.012) X10*3/uL Nucleated RBC % (auto) (0.0-0.2) /100WBC D-Dimer High Sensitivty < 150 NG/ML Sodium (135-145) mmol/L Potassium (3.3-5.1) mmol/L Chloride (96-108) mmol/L Carbon Dioxide (22-29) mmol/L Anion Gap (12-20) BUN (9-16) mg/dL Creatinine (0.5-1.4) mg/dL Estim Creat Clear Calc Estimated GFR POC Glucose (60-115) mg/dL Random Glucose (60-115) mg/dL Calcium (8.4-10.2) mg/dL Troponin I High Sens (<3.5-17.0) ng/L B-Natriuretic Peptide (<100) pg/mL Influenza Type A (PCR) NEGATIVE (Negative) Influenza Type B (PCR) NEGATIVE (Negative) RSV RNA Qual (PCR) NEGATIVE (Negative) SARS-CoV-2 RNA (RT-PCR) NEGATIVE (Negative) Discharge Plan Discharge Clinical Impression: Bronchitis, Chest pain Patient Disposition: Home, Self-Care Instructions: Acute Bronchitis (ED) Prescriptions: New doxycycline hyclate 100 mg capsule 100 mg PO BID 7 Days Qty: 14 0RF No Action Myrbetriq 50 mg tablet extended release 24 hr 1 tab PO DAILY atorvastatin 20 mg tablet 1 tab PO BEDTIME clozapine 100 mg tablet 200 mg PO BEDTIME metoprolol succinate 50 mg tablet extended release 24 hr 1 tab PO DAILY clonazepam 1 mg tablet 1 tab PO BID metformin 1,000 mg tablet 1 tab PO BIDWM lisinopril 40 mg tablet 40 mg PO DAILY Januvia 50 mg tablet 50 mg PO DAILY clonazepam 1 mg tablet 1 tab PO DAILY PRN (Reason: Anxiety) Rx Instructions: TAKE 1 TABLET BY MOUTH TWICE DAILY NEEDED. MAY USE 1 ADDITIONAL FOR ANXIETY DIRECTED pantoprazole 40 mg tablet,delayed release (DR/EC) 40 mg PO BID@0630,1630 Referrals: Ann-Marie Camacho MD [Primary Care Provider] - 06/22/22
[2022-06-20 21:57] VITALS: BP 155/77; PULSE 87; RESP 19; TEMP 37; O2SAT 95
[2022-06-20 22:12] LABS: D Dimer High Sensitivity < 150 NG/ML
[2022-06-20 22:33] LABS: B Type Natriuretic Peptide < 10 pg/mL (<100); Troponin-I High Sensitivity < 3.5 ng/L (<3.5-17.0)
[2022-06-20 22:37] LABS: Influenza A PCR NEGATIVE (Negative); Influenza B PCR NEGATIVE (Negative); Resp Syncy Virus RNA Qual PCR NEGATIVE (Negative); SARS COV2 PCR INHOUSE NEGATIVE (Negative)
--- NOTE | 2022-06-20 23:27 | PC.NURSE ---
I assumed care of Felicia upon her arrival to ED bed 6. Upon my initial encounter with her she was discharged by the ER MD. She verbalized an understanding of all DC orders and she ambulated out of the ED independently and with steady gait. Prior to DC she denies:L CP, SOB, nausea, vomiting. She was taking PO fluids at time of DC without difficulty.
== END 2022-06-20 23:26 | disposition home or self-care (01) ==
PROVIDERS: Emergency Provider Emergency Medicine Emergency Medical Services; PCP Internal Medicine
DX: J40 Bronchitis, not specified as acute or chronic (principal); R06.02 Shortness of breath; R07.89 Other chest pain; I10 Essential (primary) hypertension; F17.210 Nicotine dependence, cigarettes, uncomplicated; Z71.6 Tobacco abuse counseling; Z20.822 Contact with and (suspected) exposure to COVID-19; Z79.899 Other long term (current) drug therapy
CPT/HCPCS: 0241U; 36415; 71045; 80048; 82947; 83880; 84484; 85025; 85379; 93005; 99283; 99284

== ENCOUNTER → 2022-06-22 06:54 | Outpatient (REF) | payer BC, MEDICARE, MEDICAID, SELFPAY ==
--- NOTE | 2022-06-22 06:57 | HM_ITS ---
Conclusion: 1. Patient was monitored for total period of 3 days and 2 hours 2. Baseline was normal sinus rhythm with average heart rate of 88 beats per minute 3. No significant pauses or bradycardia noted 4. Very rare ectopy noted 5. Patient reported 3 events correlated with sinus rhythm MTDD
== END ==
LOC: HO.CARD 06:54
PROVIDERS: PCP Internal Medicine; Visit Provider Internal Medicine
DX: R00.2 Palpitations (principal); R55 Syncope and collapse; E11.9 Type 2 diabetes mellitus without complications
CPT/HCPCS: 93242

== ENCOUNTER 2022-07-09 11:30 | Outpatient (REF) | payer BC, MEDICARE, MEDICAID, SELFPAY ==
[2022-07-09 11:54] LABS: MANUAL DIFF FLAG NO
[2022-07-09 12:24] LABS: Basophils Percent Auto 0.4 % (0-2); Eosinophils Absolute Auto 0.1 X10*3/uL (0.0-0.4); Eosinophils Percent Auto 0.7 % (0-4); Hematocrit 39.6 % (37.0-47.0); Hemoglobin 12.8 g/dl (12.0-16.0); Imm Gran Abs Auto 0.02 X10*3/uL (0.00-0.03); Imm Gran Pct Auto 0.2 % (0.0-0.4); Lymphocytes Absolute Auto 2.8 X10*3/uL (1.2-4.9); Lymphocytes Percent Auto 29.4 % (20-40); Mean Corpuscular HGB Conc 32.3 g/dl (31.0-35.0); Mean Corpuscular Hemoglobin 30.3 pg (27.0-33.0); Mean Corpuscular Volume 93.6 fL (80.0-98.0); Mean Platelet Volume 10.2 fL (9.4-12.3); Monocytes Absolute Auto 0.4 X10*3/uL (0.1-1.2); Monocytes Percent Auto 4.5 % (2-11); Neut%MD 64.8 %; Neutrophils Absolute Auto 6.2 x10*3/uL (2.0-8.3); Neutrophils Percent Auto 64.8 % (45-73); Platelet Count 249 X10*3/uL (160-400); Red Blood Count 4.23 X10*6/uL (4.20-5.50); Red Cell Distribution Width 12.9 % (11.0-16.0); WBCANC 9.6 X10*3/uL; White Blood Count 9.6 X10*3/uL (4.8-10.8)
== END 2022-07-09 11:31 | disposition home or self-care (01) ==
LOC: HO.LAB 11:30
PROVIDERS: Visit Provider Clinical Nurse Specialist Psychiatric/Mental Health, Child & Adolescent
DX: F31.32 Bipolar disorder, current episode depressed, moderate (principal); Z79.899 Other long term (current) drug therapy
CPT/HCPCS: 36415; 85025

== ENCOUNTER → 2022-07-11 10:59 | Outpatient (REF) | payer BC, MEDICARE, MEDICAID, SELFPAY | LOC: HO.CARD 10:59 | PROVIDERS: Visit Provider Nurse Practitioner Family | DX: R00.2 Palpitations (principal); R55 Syncope and collapse | CPT/HCPCS: 93270 ==

== ENCOUNTER 2022-08-07 10:44 | Outpatient (REF) | payer BC, MEDICARE, MEDICAID, SELFPAY ==
[2022-08-07 10:53] LABS: MANUAL DIFF FLAG NO
[2022-08-07 12:17] LABS: Basophils Percent Auto 0.5 % (0-2); Eosinophils Absolute Auto 0.1 X10*3/uL (0.0-0.4); Eosinophils Percent Auto 0.6 % (0-4); Hematocrit 41.4 % (37.0-47.0); Hemoglobin 13.4 g/dl (12.0-16.0); Imm Gran Abs Auto 0.02 X10*3/uL (0.00-0.03); Imm Gran Pct Auto 0.2 % (0.0-0.4); Lymphocytes Absolute Auto 2.7 X10*3/uL (1.2-4.9); Lymphocytes Percent Auto 31.4 % (20-40); Mean Corpuscular HGB Conc 32.4 g/dl (31.0-35.0); Mean Corpuscular Hemoglobin 30.3 pg (27.0-33.0); Mean Corpuscular Volume 93.7 fL (80.0-98.0); Mean Platelet Volume 10.7 fL (9.4-12.3); Monocytes Absolute Auto 0.5 X10*3/uL (0.1-1.2); Monocytes Percent Auto 5.7 % (2-11); Neut%MD 61.6 %; Neutrophils Absolute Auto 5.3 x10*3/uL (2.0-8.3); Neutrophils Percent Auto 61.6 % (45-73); Platelet Count 286 X10*3/uL (160-400); Red Blood Count 4.42 X10*6/uL (4.20-5.50); Red Cell Distribution Width 13.1 % (11.0-16.0); WBCANC 8.6 X10*3/uL; White Blood Count 8.6 X10*3/uL (4.8-10.8)
== END 2022-08-07 10:45 | disposition home or self-care (01) ==
LOC: HO.LABR 10:44
PROVIDERS: PCP Internal Medicine; Visit Provider Clinical Nurse Specialist Psychiatric/Mental Health, Child & Adolescent
DX: F31.32 Bipolar disorder, current episode depressed, moderate (principal); Z79.899 Other long term (current) drug therapy
CPT/HCPCS: 36415; 85025

== ENCOUNTER 2022-08-07 18:30 | Emergency (ER) | payer BC, MEDICARE, MEDICAID, SELFPAY ==
--- NOTE | ~2022-08-07 | XR_ITS ---
EXAMINATION: XR LUMBOSACRAL SPINE XR HIP AND PELVIS, RIGHT XR KNEE, RIGHT CLINICAL INFORMATION: Lower back pain. Atraumatic pain. COMPARISON: MRI lumbosacral spine December 2018. X-ray lumbosacral spine October 2017. X-ray of the left hip and pelvis April 2022. TECHNIQUE: 3 views of the lumbosacral spine. Right knee, 4 views. Right hip, 2 views. Single view pelvis. FINDINGS: LUMBOSACRAL SPINE: Vertebral bodies are normally aligned without fracture. There is severe degenerative disc changes at L5-S1 with marked disc space narrowing and some endplate osteophyte formation, unchanged. Remaining disc spaces of the lumbar region are normal. There is some disc space narrowing and endplate osteophytes in the lower thoracic spine, unchanged. Facets unremarkable. Surrounding bone and soft tissues unremarkable. RIGHT HIP: Hip joint and surrounding bone and soft tissues are normal. PELVIS: Bones, joints and soft tissues of the pelvis are normal. RIGHT KNEE: The bones, joints and soft tissues are normal without effusion. XR/XR hip RT w PEL1V IMPRESSION: LUMBOSACRAL SPINE: Spondylosis, unchanged. No acute abnormality. RIGHT HIP AND PELVIS: Normal and unchanged. RIGHT KNEE: Normal.
--- NOTE | ~2022-08-07 | XR_ITS ---
EXAMINATION: XR LUMBOSACRAL SPINE XR HIP AND PELVIS, RIGHT XR KNEE, RIGHT CLINICAL INFORMATION: Lower back pain. Atraumatic pain. COMPARISON: MRI lumbosacral spine December 2018. X-ray lumbosacral spine October 2017. X-ray of the left hip and pelvis April 2022. TECHNIQUE: 3 views of the lumbosacral spine. Right knee, 4 views. Right hip, 2 views. Single view pelvis. FINDINGS: LUMBOSACRAL SPINE: Vertebral bodies are normally aligned without fracture. There is severe degenerative disc changes at L5-S1 with marked disc space narrowing and some endplate osteophyte formation, unchanged. Remaining disc spaces of the lumbar region are normal. There is some disc space narrowing and endplate osteophytes in the lower thoracic spine, unchanged. Facets unremarkable. Surrounding bone and soft tissues unremarkable. RIGHT HIP: Hip joint and surrounding bone and soft tissues are normal. PELVIS: Bones, joints and soft tissues of the pelvis are normal. RIGHT KNEE: The bones, joints and soft tissues are normal without effusion. XR/XR knee RT 4V IMPRESSION: LUMBOSACRAL SPINE: Spondylosis, unchanged. No acute abnormality. RIGHT HIP AND PELVIS: Normal and unchanged. RIGHT KNEE: Normal.
--- NOTE | ~2022-08-07 | XR_ITS ---
EXAMINATION: XR LUMBOSACRAL SPINE XR HIP AND PELVIS, RIGHT XR KNEE, RIGHT CLINICAL INFORMATION: Lower back pain. Atraumatic pain. COMPARISON: MRI lumbosacral spine December 2018. X-ray lumbosacral spine October 2017. X-ray of the left hip and pelvis April 2022. TECHNIQUE: 3 views of the lumbosacral spine. Right knee, 4 views. Right hip, 2 views. Single view pelvis. FINDINGS: LUMBOSACRAL SPINE: Vertebral bodies are normally aligned without fracture. There is severe degenerative disc changes at L5-S1 with marked disc space narrowing and some endplate osteophyte formation, unchanged. Remaining disc spaces of the lumbar region are normal. There is some disc space narrowing and endplate osteophytes in the lower thoracic spine, unchanged. Facets unremarkable. Surrounding bone and soft tissues unremarkable. RIGHT HIP: Hip joint and surrounding bone and soft tissues are normal. PELVIS: Bones, joints and soft tissues of the pelvis are normal. RIGHT KNEE: The bones, joints and soft tissues are normal without effusion. XR/XR lumbar spine 2-3V IMPRESSION: LUMBOSACRAL SPINE: Spondylosis, unchanged. No acute abnormality. RIGHT HIP AND PELVIS: Normal and unchanged. RIGHT KNEE: Normal.
--- NOTE | ~2022-08-07 | US_ITS ---
EXAMINATION: US VENOUS ULTRASOUND WITH DOPPLER LOWER EXTREMITY, RIGHT CLINICAL INFORMATION: Right calf pain and swelling COMPARISON: Right leg DVT study 05/24/2019 TECHNIQUE: Ultrasound of the deep veins is performed from the hip to the calf with compression sonography and color and pulse Doppler assessment. Spectral analysis with color-flow imaging is performed. FINDINGS: There is normal venous compression and respiratory variation and augmented flow. The visualized common femoral vein, superficial femoral vein, profunda femoral vein, popliteal vein, and the trifurcation region shows no evidence of deep venous thrombosis. There is no significant popliteal fossa cyst. The contralateral left common femoral vein appears normal. If the patient's symptoms persist, followup ultrasound in 5 days 7 days might be of value to exclude proximal propagation from a non-visualized calf vein. US/US venous duplex LE RT IMPRESSION: No DVT demonstrated in the right lower extremity.
[2022-08-07 19:50] VITALS: BP 133/80; PULSE 99; RESP 18; TEMP 36.2; O2SAT 96; BMI 49.8
--- NOTE | 2022-08-07 19:50 | ED.EXTPRO ---
HPI - Extremity Problem General Chief complaint: Extremity Injury, Lower <JUAN C Mars - Last Filed: 08/07/22 19:53> Stated complaint: Leg pain <JUAN C Mars - Last Filed: 08/07/22 19:53> Time Seen by Provider: 08/07/22 21:32 <JUAN C Mars - Last Filed: 08/07/22 19:53> Source: patient <Eliza Osorio MD - Last Filed: 08/07/22 21:53> Mode of arrival: ambulatory <Eliza Osorio MD - Last Filed: 08/07/22 21:53> Limitations: no limitations <Eliza Osorio MD - Last Filed: 08/07/22 21:53> History of Present Illness HPI Narrative: 47-year-old female presented with right lower extremity pain for 3 days. Pain started since Saturday after she was sitting for long hours playing cards started in the lower back and radiating down to the right lower extremity, described as shooting sharp pain down in the back of the thigh and leg and foot constant severe 10/10.pain is more at night, patient have pins and needles feeling in her right lower extremity, patient had previous sciatica in the past evaluated by neurosurgeon as patient reported was nonsurgical at that time. No history of IV drug abuse, no fever. Patient is known to have chronic bladder irritation with chronic urinary incontinence but no abnormal urinary incontinence for the last 3 4 days since the symptoms started. <Eliza Osorio MD - Last Filed: 08/07/22 21:53> Related Data Home medications: Home Medications Medication Instructions Recorded Confirmed pantoprazole 40 mg tablet,delayed 40 mg PO BID@0630,1630 11/22/20 06/05/22 release clozapine 100 mg tablet 200 mg PO BEDTIME 11/13/21 06/05/22 lisinopril 40 mg tablet 40 mg PO DAILY 11/13/21 06/05/22 sitagliptin phosphate 50 mg tablet 50 mg PO DAILY 04/17/22 06/05/22 ([place]) atorvastatin 20 mg tablet 20 mg PO BEDTIME 07/03/22 clonazepam 1 mg tablet 1 mg PO BID anxiety 07/03/22 metformin 1,000 mg tablet 1,000 mg PO BIDWM 07/03/22 metoprolol succinate 50 mg 50 mg PO DAILY 07/03/22 tablet,extended release 24 hr mirabegron 50 mg tablet,extended 50 mg PO DAILY 07/03/22 release 24 hr (Myrbetriq) Previous Rx's Medication Instructions Recorded oxycodone 5 mg tablet 5 mg PO Q8H PRN pain #20 tabs 08/07/22 <JUAN C Mars - Last Filed: 08/07/22 19:53> Allergies/Adverse reactions: Allergies Allergy/AdvReac Type Severity Reaction Status Date / Time Penicillins [PENICILLINS] Allergy Severe ANAPHYLAXIS Verified 07/03/22 12:54 adhesive [ADHESIVE] Allergy Unknown RASH Verified 07/03/22 12:54 artichoke [ARTICHOKE] Allergy Unknown RASH Verified 07/03/22 12:54 carbamazepine [From TEGRETOL] Allergy Unknown MIGRAINES Verified 07/03/22 12:54 cariprazine [From VRAYLAR] Allergy Unknown LEG CRAMPS Verified 07/03/22 12:54 fentanyl [FENTANYL] Allergy Unknown RASH Verified 07/03/22 12:54 lamotrigine [From LAMICTAL] Allergy Unknown RASH Verified 07/03/22 12:54 lithium [LITHIUM] AdvReac Severe tremor and Verified 07/03/22 12:54 falls <JUAN C Mars - Last Filed: 08/07/22 19:53> Review of Systems Review of Systems: All other systems are reviewed and are negative Constitutional: Reports as per HPI and Reports no additional constitutional complaints Eyes: Reports as per HPI and Reports no additional eye complaints Reports system reviewed and no additional complaints, except as documented Cardiovascular: Reports as per HPI and Reports no additional cardiovascular complaints Respiratory: Reports as per HPI and Reports no additional respiratory complaints Gastrointestinal: Reports as per HPI and Reports no additional gastrointestinal complaints Genitourinary: Reports no additional female genitourinary complaints Musculoskeletal: Reports no additional musculoskeletal complaints Skin/Breast: Reports system reviewed and no additional complaints, except as docu Psychiatric: Reports no additional psychiatric complaints Endocrine: Reports no additional endocrine complaints Hematologic/Lymphatic: Reports no additional hematologic/lymphatic complaints Allergic/Immunologic: Reports no additional allergic/immunologic complaints Reports system reviewed and no additional complaints, except as documented and Reports Abnormal speech present <Eliza Osorio MD - Last Filed: 08/07/22 21:53> [facility] Past Medical History Medical History: Medical History Anxiety Bipolar disease, chronic Depression Diabetes GERD (gastroesophageal reflux disease) High cholesterol Hypertension Migraines Morbid obesity with BMI of 45.0-49.9, adult Obstructive sleep apnea PCOS (polycystic ovarian syndrome) Pre-diabetes Renal colic Thrombosed external hemorrhoid <JUAN C Mars - Last Filed: 08/07/22 19:53> Surgical History: Surgical History History of cholecystectomy History of dilation and curettage <JUAN C Mars - Last Filed: 08/07/22 19:53> Family History Family History: Family History Father Coronary artery disease Other Breast cancer <JUAN C Mars - Last Filed: 08/07/22 19:53> Social History Social History: Social History Household Members: Spouse and Children Housing: Apartment Do you presently have visiting nurse or other home services: No Alcohol intake: unknown Patient Tobacco Use Status: Tobacco use Unknown Tobacco use type: Cigarette Cigarette Packs Per Day: 1 Cigarettes Per Day: 20.0 Substance Use Type: Marijuana Advance Directives: No Advance Directives Information Provided: No service: No Current occupational status: employed <JUAN C Mars - Last Filed: 08/07/22 19:53> Physical Exam Vital Signs: Vital Signs: Last Vital Signs Temp 97.2 F 08/07/22 19:50 Pulse 99 08/07/22 19:50 Resp 18 08/07/22 19:50 BP 133/80 08/07/22 19:50 Pulse Ox 96 08/07/22 19:50 O2 Del Method 08/07/22 19:50 BMI result Body Mass Index 49.8 <JUAN C Mars - Last Filed: 08/07/22 19:53> Vital Signs: Last Vital Signs Temp 97.2 F 08/07/22 19:50 Pulse 99 08/07/22 19:50 Resp 18 08/07/22 19:50 BP 133/80 08/07/22 19:50 Pulse Ox 96 08/07/22 19:50 O2 Del Method 08/07/22 19:50 BMI result Body Mass Index 49.8 Vital signs have been reviewed as appeared to be correct. Blood pressure normal. Heart rate normal. Respiration rate normal. Temperature normal. Oxygen saturation normal. <Eliza Osorio MD - Last Filed: 08/07/22 21:53> Appearance: Alert. Oriented X3. No acute distress. Head: Normal external exam. Normocephalic. Atraumatic. No Waldron signs noted. No raccoon eyes noted Eyes: PERRLA. EOMI. Conjunctiva and sclera normal. Eyelids normal. ENT: TM's Normal. Pharynx normal. Uvula midline. Moist mucous membranes. No trismus noted. No drooling noted. No muffled voice noted. Neck: Normal inspection. Neck supple. FROM. No adenopathy. Thyroid Normal. No meningeal signs. No neck mass noted. CVS: Normal heart rate and rhythm. Heart sound normal. No murmurs noted. Pulses normal throughout. Respiratory: No respiratory distress. Painless inspiration. Breath sounds normal. No wheezes/rales/rhonchi noted. Chest nontender. No accessory muscle usage noted or decreased air movement noted. Abdomen: Soft and nontender. Bowel sounds normal in all 4 quadrants. No distention noted. No organomegaly noted. No visible injury noted. Back: No CVA tenderness. Full range of motion noted. Skin: Skin warm and dry. Normal skin color. Normal skin turgor. No rashes/lesions/lacerations noted. Extremities: No lower extremity edema. Extremities exhibit normal range of motion. Extremities nontender. Neuro: Oriented X 3. Cranial nerve exam: II-XII are grossly intact No motor deficit. No sensory deficit. Reflexes normal. Able to ambulate on toes and heels, sensation is intact to bilateral lower extremity. <Eliza Osorio MD - Last Filed: 08/07/22 21:53> Course Course Course Narrative: 19:50pm - 47yoF presenting to the ER c c/o of Right thigh/calf pain since saturday worse today c associated paresthesias and lower back pain. Denies any other symptoms. Plan: Venous duplex ultrasound of right lower extremity and lumbar spine x-ray ordered at this time. Patient is stable. Normal steady gait. No obvious lower extremity edema noted. She will be sent back to the waiting room for further evaluation treatment Emergency minor care. <JUAN C Mars - Last Filed: 08/07/22 19:53> Reevaluation(s) Reevaluation #1: 47-year-old female low back pain radiated to the right lower extremity physical exam and history is consistent with right lumbar radiculopathy, patient feels better after oxycodone was given in the ED, patient was instructed to return to the ED if worsening of the symptoms otherwise follow-up with her PCP/neurosurgeon. <Eliza Osorio MD - Last Filed: 08/07/22 21:53> Medical Decision Making Differential Diagnosis Differential Diagnoses: The differential diagnosis associated with the presentation includes (Lumbar radiculopathy/DVT/arthritis.) <Eliza Osorio MD - Last Filed: 08/07/22 21:53> Lab Data MDM Lab Attestation statement: I reviewed the patient's lab results. <Eliza Osorio MD - Last Filed: 08/07/22 21:53> Independent Interpretation I performed an independent interpretation of an: Plain X-Ray (Lumbar spine/right knee/right hip and pelvis x-ray: No acute fracture dislocation, normal joint space, no effusion.) and Ultrasound (Venous Doppler right lower extremity: No DVT.) <Eliza Osorio MD - Last Filed: 08/07/22 21:53> Radiology Impression Discussion of test interpretation with radiology: I have reviewed the radiologist's reading. <Eliza Osorio MD - Last Filed: 08/07/22 21:53> Discharge Plan Discharge Clinical Impression: Acute lumbar radiculopathy <JUAN C Mars - Last Filed: 08/07/22 19:53> Patient Disposition: Home, Self-Care <JUAN C Mars - Last Filed: 08/07/22 19:53> Instructions: Lumbar Radiculopathy (ED) <JUAN C Mars - Last Filed: 08/07/22 19:53> Additional Instructions: Rest/apply heating pad to the lower back, use the pain medication as instructed/follow-up with your PCP and your neurosurgeon. <JUAN C Mars - Last Filed: 08/07/22 19:53> Prescriptions: New oxycodone 5 mg tablet 5 mg PO Q8H PRN (Reason: pain) Qty: 20 0RF Rx Instructions: Partial Fill upon patient request. No Action Myrbetriq 50 mg tablet extended release 24 hr 50 mg PO DAILY clozapine 100 mg tablet 200 mg PO BEDTIME lisinopril 40 mg tablet 40 mg PO DAILY atorvastatin 20 mg tablet 20 mg PO BEDTIME clonazepam 1 mg tablet 1 mg PO BID metformin 1,000 mg tablet 1,000 mg PO BIDWM metoprolol succinate 50 mg tablet extended release 24 hr 50 mg PO DAILY Januvia 50 mg tablet 50 mg PO DAILY pantoprazole 40 mg tablet,delayed release (DR/EC) 40 mg PO BID@0630,1630 <JUAN C Mars - Last Filed: 08/07/22 19:53> Referrals: Ann-Marie Camacho MD [Primary Care Provider] - <JUAN C Mars - Last Filed: 08/07/22 19:53>
--- OUTSIDE RECORDS SUMMARY | 2022-08-07 20:04 | XMS_ITS | Continuity of Care Document ---
:1975 Author Organization [facility] Address [address] [place] [address]- Care Team Providers Name Role Phone Ann-Marie Camacho MD Primary Care Phys[id number] Date(s): 02/19/22 - 02/20/[address] [address]- Discharge Disposition: A-D/C Walkout Attending Physician: Not on Staff, Attending MD Admitting Physician: Not on Staff, Admitting MD Referring Physician: Not on Staff, Referring MD Allergies, Adverse Reactions, Alerts Substance Reaction Severity Status lithium bad reaction Active penicillins can't breathe Active Vraylar Active Adhesive Bandage adhesive on patches-skin irritations Active Other Food Allergy1 rash Active LaMICtal rash Active TEGretol XR Active 1artichoke Immunizations Given and Recorded Vaccine Date Status Refusal Reason tetanus/diphtheria/pertussis, acel(Tdap) 05/10/20 Given Not Given Vaccine Date Status Refusal Reason pneumococcal 23-valent vaccine 06/08/15 Not Given P atient Refuses Medications Alcohol Pads See Instructions, # 200 each, Refills 0, Tot. Refills 0, Maintenance, use as directed for Type 2 Diabetes Mellitus, 12/29/20 10:22:00 EDT, Supply, 170, cm, 09/04/20 11:16:00 EST, Height, 148.8, kg, 09/04/20 11:21:00 EST, Dry Weight Start Date: 12/29/20 Stop Date: 01/28/21 Status: OrderedAnaprox-DS sodium 550 mg oral tablet = 550 mg, By Mouth, 2 times a day, PRN Pain , Moderate, with food, # 14 tablet, 0 Refills, Maintenance, 01/29/22 23:00:00 EDT, [facility] #[id number], Partial fill upon patient request if the prescription is for a schedule II opioid drug., 170, c... Start Date: 01/29/22 Stop Date: 02/05/22 Status: Orderedatorvastatin 20 mg oral tablet = 20 mg, By Mouth, Daily at bedtime, for hyperlipidemia, # 30 tablet, 1 Refills, Maintenance, Tablet, Route to Pharmacy Electronically, [id number], [facility]/pharmacy #[id number] Start Date: 08/26/18 Status: Orderedcetirizine 10 mg oral tablet 1 tablet = 10 mg, By Mouth, Daily, # 90 tablet, 0 Refills, Maintenance, 03/10/21 20:42:00 EDT, Tablet, Partial fill upon patient request if the prescription is for a schedule II opioid drug. Start Date: 03/10/21 Status: OrderedclonazePAM 0.5 mg oral tablet 2 tablet = 1 mg, By Mouth, 2 times a day, PRN Anxiety, 0 Refills, Maintenance, 12/27/20 22:20:00 EDT, Tablet, Partial fill upon patient request if the prescription is for a schedule II opioid drug. Start Date: 12/27/20 Status: OrderedcloZAPine 150 mg oral tablet, disintegrating 1 tablet = 150 mg, By Mouth, Daily at bedtime, # 60 tablet, 0 Refills, Maintenance, 08/11/20 18:56:00 EST, DIS Tablet, Partial fill upon patient request if the prescription is for a schedule II opioid drug. Start Date: 08/11/20 Status: OrderedFREESTYLE ISMA 2 READER FREESTYLE ISMA 2 READER, See Instructions, # 1 each, Refills 0, Tot. Refills 0, Maintenance, pleaseuse reader to scan sensor 2-3 times per day E11.9, 06/07/21 11:24:00 EDT, Supply, 170, cm, 06/07/21 9:57:00 EDT, Height, 143.3, kg, 04/08/21 21:28... Start Date: 06/07/21 Status: OrderedFREESTYLE ISMA 2 SENSORS FREESTYLE ISMA 2 SENSORS, See Instructions, # 2 each, Refills 6, Tot. Refills 6, Maintenance, please use reader to scan sensors 2-3 times per day, change every 14 days E11.9, 06/07/21 11:25:00 EDT, Supply, 170, cm, 06/07/21 9:57:00 EDT, Height, 14... Start Date: 06/07/21 Status: OrderedLidoderm 5% film 1 patch, Topically, Daily, remove patches after 12 hours, # 30 patch, 0 Refills, Maintenance, 04/08/21 23:31:00 EDT, [facility] #[id number], Partial fill upon patient request if the prescription is for a schedule II opioid drug., 1 patch Topicall... Start Date: 04/08/21 Status: OrderedLinzess 145 mcg oral capsule 1 capsule = 145 mcg, By Mouth, Daily, # 30 capsule, 0 Refills, Maintenance, 12/27/20 22:27:00 EDT, Capsule, Partial fill upon patient request if the prescription is for a schedule II opioid drug. Start Date: 12/27/20 Status: Orderedlisinopril 40 mg oral tablet 1 tablet = 40 mg, By Mouth, Daily, for hypertension, # 30 tablet, 1 Refills, Maintenance, 08/26/18 14:49:37 EST, Tablet Start Date: 08/26/18 Status: OrderedmetFORMIN 1000 mg oral tablet 1 tablet = 1,000 mg, By Mouth, 2 times a day, # 60 tablet, 11 Refills, Maintenance, 01/09/21 16:20:00 EDT, Tablet, [facility] #[id number], Partial fill upon patient request if the prescription is for a schedule II opioid drug., 170, cm, 09/04/20... Start Date: 01/09/21 Stop Date: 01/04/22 Status: Orderedmetoprolol 50 mg oral tablet 50 mg, By Mouth, Daily, for hypertension, # 30 tablet, Refills 1, Tot. Refills 1, Maintenance, 08/26/18 14:50:46 EST, Route to Pharmacy Electronically, [id number], [facility]/pharmacy #[id number] Start Date: 08/26/18 Status: OrderedMotrin Tablet 600 mg, Tablet, By Mouth, Once, PRN for Pain , Mild, Routine, 02/20/22 0:59:00 EDT Start Date: 02/20/22 Stop Date: 02/20/22 Status: CompletedMyrbetriq 50 mg oral tablet, extended release 1 tablet = 50 mg, By Mouth, Daily, do not crush or chew, # 30 tablet, 0 Refills, Maintenance, 02/12/19 22:15:08 EDT, ER Tablet Start Date: 02/12/19 Status: OrderedNorco 325 mg-5 mg oral tablet 1 tablet, By Mouth, Every 4 hours, PRN for pain, partial fill at patient request, # 10 tablet, 0 Refills, Maintenance, 04/08/21 23:31:00 EDT, Tablet, [facility] #[id number], Partial fill upon patient request, 1 tablet By Mouth Every 4 hours,PRN:f... Start Date: 04/08/21 Status: OrderedOne Touch Fine Point Lancets See Instructions, # 100 each, Refills 11, Tot. Refills 11, Maintenance, ICD: E11.65 CHECK POC0 QID, 01/09/21 16:14:00 EDT, Supply, 170, cm, 09/04/20 11:16:00 EST, Height, 148.8, kg, 09/04/20 11:21:00 EST, Dry Weight Start Date: 01/09/21 Status: OrderedOne Touch Ultra Test Strips See Instructions, # 200 each, Refills 9, Tot. Refills 9, Maintenance, ICD: E11.65 CHECK POC BID, 03/08/21 11:39:00 EDT, duplicate rx. original sent 01/09/21. remaining refills sent., Supply, 170, cm, 09/04/20 11:16:00 EST, Height, 148.8, kg, 09/04/20... Start Date: 03/08/21 Stop Date: 01/02/22 Status: OrderedOne Touch UltraSmart Glucose Meter See Instructions, # 1 each, Maintenance, ICD: E11.65 CHECK POC BID, 12/29/20 17:30:00 EDT, Supply, 170, cm, 09/04/20 11:16:00 EST, Height, 148.8, kg, 09/04/20 11:21:00 EST, Dry Weight Start Date: 12/29/20 Status: OrderedONE TOUCH VERIO TEST ST(NEW)100'S ONE TOUCH VERIO TEST ST(NEW)100'S, See Instructions, # 200 Unknown, 0 Refills, Maintenance, USE TO CHECK BLOOD SUGAR THREE TIMES DAILY, 170, cm, 09/04/20 11:16:00 EST, Height, 148.8, kg, 09/04/20 11:21:00 EST, Dry Weight Start Date: 12/30/20 Status: OrderedOneTouch Verio Glucose Meter See Instructions, # 1 each, Refills 0, Tot. Refills 0, Maintenance, Use to check BG 3times/day, 12/30/20 10:29:00 EDT, DxE11.9, Supply, 170, cm, 09/04/20 11:16:00 EST, Height, 148.8, kg, 09/04/20 11:21:00 EST, Dry Weight Start Date: 12/30/20 Status: OrderedOneTouch Verio Lancets See Instructions, # 100 each, Refills 0, Tot. Refills 0, Maintenance, Use to check BG 3 times/day, 12/30/20 10:29:00 EDT, DxE11.9 on insulin, Supply, 170, cm, 09/04/20 11:16:00 EST, Height, 148.8, kg, 09/04/20 11:21:00 EST, Dry Weight Start Date: 12/30/20 Status: OrderedOneTouch Verio Test Strips See Instructions, # 200 each, Refills 3, Tot. Refills 3, Maintenance, To be used to check blood sugar 3x a day for type 2 diabetes., 03/20/21 11:31:00 EDT, Supply, 170, cm, 03/13/21 15:45:00 EDT, Height, 163.3, kg, 03/13/21 9:39:00 EDT, Dry Weight Start Date: 03/20/21 Status: OrderedOneTouch Verio Test Strips See Instructions, # 100 each, Refills 0, Tot. Refills 0, Maintenance, Use to check BG 3 times/day, 12/30/20 10:29:00 EDT, DxE11.9 on insulin, Supply, 170, cm, 09/04/20 11:16:00 EST, Height, 148.8, kg, 09/04/20 11:21:00 EST, Dry Weight Start Date: 12/30/20 Status: Orderedpantoprazole 40 mg oral delayed release tablet = 40 mg, By Mouth, 2 times a day, for acid reflux, # 30 tablet, 1 Refills, Maintenance, 08/26/18 14:51:11 EST, EC Tablet Start Date: 08/26/18 Status: OrderedPen [place], 29 G x 12.7 mm BD Ultra Fine See Instructions, # 90 each, Refills 4, Tot. Refills 4, Maintenance, use as directed for Type 2 Diabetes Mellitus, 01/09/21 16:14:00 EDT, Supply, 170, cm, 09/04/20 11:16:00 EST, Height, 148.8, kg, 09/04/20 11:21:00 EST, Dry Weight Start Date: 01/09/21 Stop Date: 06/08/21 Status: OrderedTylenol 325 mg oral tablet 975 mg, Tablet, By Mouth, Once, PRN for Pain , Moderate, Routine, 02/20/22 0:59:00 EDT Start Date: 02/20/22 Stop Date: 02/20/22 Status: CompletedZofran 4 mg oral tablet 1 tablet = 4 mg, By Mouth, Every 8 hours, PRN as needed for nausea/vomiting, # 15 tablet, 0 Refills,Maintenance, 04/03/21 17:35:00 EDT, Tablet, [facility] #[id number], Partial fill upon patient request if the prescription is for a schedule II op... 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4 DegF 98.1 DegF 98 .4 DegF (02/20/22 1:09 AM) (02/19/22 10:51 PM) (02/19/22 8: 33 PM) Mode of Delivery (Oxygen) Room air Room air Room a ir (02/20/22 1:09 AM) (02/19/22 10:51 PM) (02/19/22 8: 33 PM) Blood pressure sites Arm, right Arm, right Arm, right (02/20/22 1:09 AM) (02/19/22 10:51 PM) (02/19/22 8: 33 PM) Temperature Route Oral Oral Oral (02/20/22 1:09 AM) (02/19/22 10:51 PM) (02/19/22 8: 33 PM) Social History Social History Type Response Smoking Status Current every day smoker; To bacco user in household: Yes entered on: 05/27/14 Sex
--- OUTSIDE RECORDS SUMMARY | 2022-08-07 20:04 | XMS_ITS | Continuity of Care Document ---
:1975 Author Organization [facility] Address [address] [place] [address]- Care Team Providers Name Role Phone Harley BARBER, Pari Gillespie Primary Care Physician Encounter [facility] [place] Date(s): 06/07/20 - 06/07/[address] [address]- [facility] Discharge Disposition: A-D/C Walkout Attending Physician: Not on Staff, Attending MD Admitting Physician: Not on Staff, Admitting MD Referring Physician: Not on Staff, Referring MD Allergies, Adverse Reactions, Alerts Substance Reaction Severity Status lithium bad reaction Active penicillins can't breathe Active Adhesive Bandage adhesive on patches-skin irritations Active Other Food Allergy1 rash Active LaMICtal rash Active TEGretol XR Active Vraylar Active 1artichoke Immunizations Given and Recorded Vaccine Date Status Refusal Reason tetanus/diphtheria/pertussis, acel(Tdap) 05/10/20 Given Not Given Vaccine Date Status Refusal Reason pneumococcal 23-valent vaccine 06/08/15 Not Given P atient Refuses Medications atorvastatin 20 mg oral tablet = 20 mg, By Mouth, Daily at bedtime, for hyperlipidemia, # 30 tablet, 1 Refills, Maintenance, Tablet, Route to Pharmacy Electronically, [id number], [facility]/pharmacy #[id number] Start Date: 08/26/18 Status: Orderedbrexpiprazole 4 mg oral tablet 1 tablet = 4 mg, By Mouth, Daily, # 30 tablet, 0 Refills, Maintenance, 01/13/19 12:00:29 EDT, Tablet Start Date: 01/13/19 Status: OrderedCarafate 1 gm oral tablet 1 Gm, 1, tablet, By Mouth, 3 times a day before meals and bedtime, # 120 tablet, Refills 0, Tot. Refills 0, Maintenance, 10/02/19 14:03:00 EST, Route to Pharmacy Electronically, [facility], 170, cm, 10/02/19 6:28:00 EST, Height, 140.9, k... Start Date: 10/02/19 Stop Date: 11/01/19 Status: Orderedibuprofen 400 mg oral tablet 400 mg, 1, tablet, By Mouth, Every 8 hours, PRN, not to exceed 3200 mg/day, # 30 tablet, Refills 0, Tot. Refills 0, Maintenance, as needed for pain, 01/18/20 22:09:00 EDT, Route to Pharmacy Electronically, [facility]/pharmacy #[id number], 170, cm, 10/02/19 6:28:00... Start Date: 01/18/20 Status: Orderedlisinopril 40 mg oral tablet 1 tablet = 40 mg, By Mouth, Daily, for hypertension, # 30 tablet, 1 Refills, Maintenance, 08/26/18 14:49:37 EST, Tablet Start Date: 08/26/18 Status: OrderedLORazepam 1 mg oral tablet 1 tablet = 1 mg, By Mouth, 2 times a day, 0 Refills, Maintenance, 02/11/19 13:58:14 EDT, Tablet Start Date: 02/11/19 Status: Orderedmetoprolol 50 mg oral tablet 50 mg, By Mouth, Daily, for hypertension, # 30 tablet, Refills 1, Tot. Refills 1, Maintenance, 08/26/18 14:50:46 EST, Route to Pharmacy Electronically, [id number], [facility]/pharmacy #[id number] Start Date: 08/26/18 Status: OrderedMyrbetriq 50 mg oral tablet, extended release 1 tablet = 50 mg, By Mouth, Daily, do not crush or chew, # 30 tablet, 0 Refills, Maintenance, 02/12/19 22:15:08 EDT, ER Tablet Start Date: 02/12/19 Status: Orderednitroglycerin 0.4 mg sublingual tablet = 0.4 mg, Sublingual, Every 5 minutes, PRN Chest Pain, # 25 tablet, 0 Refills, Maintenance, 02/11/1915:56:25 EDT, Tablet Start Date: 02/11/19 Stop Date: 02/18/19 Status: OrderedoxyCODONE 5 mg oral tablet 5 mg, 1, tablet, By Mouth, Every 6 hours, PRN, # 5 tablet, Refills 0, Tot. Refills 0, Maintenance, for pain, 01/18/20 22:09:00 EDT, Route to Pharmacy Electronically, [facility]/pharmacy #[id number], Partial fill upon patient request, 170, cm, 10/02/19 6:28:00 EST,... Start Date: 01/18/20 Status: Orderedpantoprazole 40 mg oral delayed release tablet = 40 mg, By Mouth, 2 times a day, for acid reflux, # 30 tablet, 1 Refills, Maintenance, 08/26/18 14:51:11 EST, EC Tablet Start Date: 08/26/18 Status: OrderedtraZODone 100 mg oral tablet 100 mg, By Mouth, Daily at bedtime, PRN, take 1 tablet daily at bedtime as needed for sleep, # 30 tablet, Refills 1, Tot. Refills 1, Maintenance, Insomnia, 09/12/18 9:26:38 EST, Route to Pharmacy Electronically, [id number], C... Start Date: 09/12/18 Status: OrderedTylenol 325 mg oral capsule 2 capsule = 650 mg, By Mouth, Every 4 hours, PRN as needed for pain, not to exceed 4000 mg/day, # 50capsule, 0 Refills, Maintenance, 01/18/20 22:09:00 EDT, Capsule, [facility]/pharmacy #[id number], 170, cm, 10/02/19 6:28:00 EST, Height, 140.9, kg, 09/27/19 15:50:... Start Date: 01/18/20 Status: OrderedZofran 4 mg oral tablet 1 tablet = 4 mg, By Mouth, Every 8 hours, PRN Vomiting, # 10 tablet, 0 Refills, Maintenance, 01/18/20 22:09:00 EDT, Tablet, [facility]/pharmacy #[id number], 170, cm, 10/02/19 6:28:00 EST, Height, 140.9, kg, 09/27/19 15:50:00 EST, Dry Weight Start Date: 01/18/20 Status: OrderedZofran ODT 4 mg oral tablet, disintegrating 1 tablet = 4 mg, By Mouth, 3 times a day, PRN as needed for nausea/vomiting, # 10 tablet, 0 Refills,Soft Stop, 09/13/19 17:42:00 EST, DIS Tablet, [facility]acy #[id number], 170, cm, 08/27/19 10:56:00 EST, Height, 139.8, kg, 08/14/19 10:37:00 EST, Dry Weight Start Date: 09/13/19 Status: Ordered Problem List Condition Effective Dates Status Health Status Informant Chronic back pain(Confirmed) Active Diabetes mellitus(Confirmed) Active GERD - Gastro-esophageal reflux Active disease(Confirmed) Hypertension(Confirmed) Active Major depression(Confirmed) Active Migraine(Confirmed) Active JILLIAN - Obstructive sleep Active apnea(Confirmed) Other Pain Disorders Related to Active Psychological Factors(Confirmed) 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) Vital Signs Most recent to oldest [Reference Range]: 1 2 Oxygen Saturation [94-100 %] 98 % 96 % (06/07/20 1:52 PM) (06/07/20 1:43 PM) Pulse Rate [55-90 bpm] 87 bpm 89 bpm (06/07/20 1:52 PM) (06/07/20 1:43 PM) Blood Pressure [90-138/55-84 mm Hg] 133/67 mm Hg (06/07/20 1:52 PM) Respiratory Rate [16-30 br/min] 18 br/min (06/07/20 1:52 PM) Temperature [96.8-100.4 DegF] 97.7 DegF (06/07/20 1:52 PM) Mode of Delivery (Oxygen) Room air Room air (06/07/20 1:52 PM) (06/07/20 1:43 PM) Blood pressure sites Arm, left (06/07/20 1:52 PM) Temperature Route Oral (06/07/20 1:52 PM) Social History Social History Type Response Smoking Status Current every day smoker; To bacco user in household: Yes entered on: 05/27/14 Sex
--- OUTSIDE RECORDS SUMMARY | 2022-08-07 20:04 | XMS_ITS | Continuity of Care Document ---
:1975 Author Organization [facility] Address [address] [place] [address]- Care Team Providers Name Role Phone Ann-Marie Camacho MD Primary Care Physician Encounter [facility] [place] Date(s): 09/27/21 - 10/27/21 [facility] [address] [place] [address] Allergies, Adverse Reactions, Alerts Substance Reaction Severity [...] Start Date: 12/29/20 Stop Date: 01/28/21 Status: Orderedatorvastatin 20 mg oral tablet = 20 mg, By Mouth, Daily at bedtime, for hyperlipidemia, # 30 tablet, 1 Refills, Maintenance, Tablet, Route to Pharmacy Electronically, [id number], [facility]/pharmacy #[id number] Start Date: 08/26/18 Status: Orderedcetirizine 10 [...] patch, 0 Refills, Maintenance, 04/08/21 23:31:00 EDT, [facility] #[id number], Partial fill upon patient request if the [...] 11 Refills, Maintenance, 01/09/21 16:20:00 EDT, Tablet, [id number], Partial fill upon patient request if the prescription is for a schedule II opioid drug., 170, cm, 09/04/20... Start Date: 01/09/21 Stop Date: 01/04/22 Status: Orderedmetoprolol 50 mg oral tablet 50 mg, By Mouth, Daily, for hypertension, # 30 tablet, Refills 1, Tot. Refills 1, Maintenance, 08/26/18 14:50:46 EST, Route to Pharmacy Electronically, [id number], [facility]/pharmacy #[id number] Start Date: 08/26/18 Status: OrderedMyrbetriq 50 [...] 0 Refills, Maintenance, 04/08/21 23:31:00 EDT, Tablet, [facility] #[id number], Partial fill upon patient request, 1 tablet [...] EC Tablet Start Date: 08/26/18 Status: OrderedPen [place], 29 G x 12.7 mm BD Ultra Fine See Instructions, # 90 each, Refills 4, Tot. Refills 4, Maintenance, use as directed for Type 2 Diabetes Mellitus, 01/09/21 16:14:00 EDT, Supply, 170, cm, 09/04/20 11:16:00 EST, Height, 148.8, kg, 09/04/20 11:21:00 EST, Dry Weight Start Date: 01/09/21 Stop Date: 06/08/21 Status: OrderedZofran 4 mg oral tablet 1 tablet = 4 mg, By Mouth, Every 8 hours, PRN as needed for nausea/vomiting, # 15 tablet, 0 Refills,Maintenance, 04/03/21 17:35:00 EDT, Tablet, [facility] #[id number], Partial fill upon patient request if the prescription is for a schedule II op... 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
--- OUTSIDE RECORDS SUMMARY | 2022-08-07 20:04 | XMS_ITS | Continuity of Care Document ---
:1975 Author Organization [facility] Address [address] [place] [address]- Care Team Providers Name Role Phone Lorenza FOUNTAIN, Christos Baron Primary Care Physician En[place] [facility] Date(s): 02/17/20 - 02/24/20 [facility] [address] [place] [address]- [facility] Attending Physician: Indra Prieto MD Referring Physician: Christos Britt MD Allergies, Adverse Reactions, Alerts Substance Reaction Severity Status lithium bad reaction Active penicillins can't breathe Active Adhesive Bandage adhesive on patches-skin irritations Active Other Food Allergy1 rash Active LaMICtal rash Active TEGretol XR Active Vraylar Active 1artichoke Immunizations Not Given Vaccine Date Status Refusal Reason pneumococcal 23-valent vaccine 06/08/15 Not Given P atient Refuses Medications atorvastatin 20 mg oral tablet = 20 mg, By Mouth, Daily at bedtime, for hyperlipidemia, # 30 tablet, 1 Refills, Maintenance, Tablet, Route to Pharmacy Electronically, [id number], [facility]/pharmacy #[id number] Start Date: 08/26/18 Status: Orderedbrexpiprazole 4 [...] 10/02/19 14:03:00 EST, Route to Pharmacy Electronically, [facility], 170, cm, 10/02/19 6:28:00 EST, Height, 140.9, k... Start Date: 10/02/19 Stop Date: 11/01/19 Status: Orderedibuprofen 400 mg oral tablet 400 mg, 1, tablet, By Mouth, Every 8 hours, PRN, not to exceed 3200 mg/day, # 30 tablet, Refills 0, Tot. Refills 0, Maintenance, as needed for pain, 01/18/20 22:09:00 EDT, Route to Pharmacy Electronically, [facility]/pharmacy #[id number], 170, cm, 10/02/19 6:28:00... Start Date: [...] 08/26/18 14:50:46 EST, Route to Pharmacy Electronically, [id number], [facility]/pharmacy #[id number] Start Date: 08/26/18 Status: OrderedMyrbetriq 50 mg oral tablet, extended release 1 tablet = 50 mg, By Mouth, Daily, do not crush or chew, # 30 tablet, 0 Refills, Maintenance, 02/12/19 22:15:08 EDT, ER Tablet Start Date: 02/12/19 Status: Orderednaproxen 500 mg oral tablet 1 tablet = 500 mg, By Mouth, 2 times a day, for 10 days, # 20 tablet, 0 Refills, Acute 02/27/20 18:12:00 EDT, 02/17/20 18:12:00 EDT, Tablet, [facility]/pharmacy #[id number], 170, cm, 02/17/20 17:55:00 EDT, Height, 138, kg, 02/17/20 17:55:00 EDT, Dry Weight Start Date: 02/17/20 Stop Date: 02/27/20 Status: Orderednitroglycerin 0.4 mg sublingual tablet = [...] 01/18/20 22:09:00 EDT, Route to Pharmacy Electronically, [facility]/pharmacy #[id number], Partial fill upon patient request, 170, [...] 09/12/18 9:26:38 EST, Route to Pharmacy Electronically, [id number], C... Start Date: 09/12/18 Status: OrderedTylenol 325 mg oral capsule 2 capsule = 650 mg, By Mouth, Every 4 hours, PRN as needed for pain, not to exceed 4000 mg/day, # 50capsule, 0 Refills, Maintenance, 01/18/20 22:09:00 EDT, Capsule, [facility]/pharmacy #[id number], 170, cm, 10/02/19 6:28:00 EST, Height, 140.9, kg, 09/27/19 15:50:... Start Date: 01/18/20 Status: OrderedZofran 4 mg oral tablet 1 tablet = 4 mg, By Mouth, Every 8 hours, PRN Vomiting, # 10 tablet, 0 Refills, Maintenance, 01/18/20 22:09:00 EDT, Tablet, [facility] #[id number], 170, cm, 10/02/19 6:28:00 EST, Height, 140.9, kg, 09/27/19 15:50:00 EST, Dry Weight Start Date: 01/18/20 Status: OrderedZofran ODT 4 mg oral tablet, disintegrating 1 tablet = 4 mg, By Mouth, 3 times a day, PRN as needed for nausea/vomiting, # 10 tablet, 0 Refills,Soft Stop, 09/13/19 17:42:00 EST, DIS Tablet, [facility]/pharmacy #[id number], 170, cm, 08/27/19 10:56:00 EST, Height, [...] Most recent to oldest [Reference Range]: 1 Height 170 cm (02/17/20 5:55 PM) Weight 138.0 kg (02/17/20 5:55 PM) Oxygen Saturation [94-100 %] 99 % (02/17/20 5:55 PM) Pulse Rate [55-90 bpm] 83 bpm (02/17/20 5:55 PM) Body Mass Index [18.5-24.99] 47.75 *>HHI* (02/17/20 5:55 PM) Blood Pressure [90-138/55-84 mm Hg] 110/69 mm Hg (02/17/20 5:55 PM) Respiratory Rate [16-30 br/min] 26 br/min (02/17/20 5:55 PM) Temperature [96.8-100.4 DegF] 98.5 DegF (02/17/20 5:55 PM) Mode of Delivery (Oxygen) Room air (02/17/20 5:55 PM) Blood pressure sites Arm, left (02/17/20 5:55 PM) Temperature Route Temporal (02/17/20 5:55 PM) Dry Weight 138.0 kg (02/17/20 5:55 PM) Weight Obtained Via Standing scale (02/17/20 5:55 PM) Dry Weight Obtained Via Standing scale (02/17/20 5:55 PM) Social History Social History Type Response Smoking Status Current every day smoker; To bacco user in household: Yes entered on: 05/27/14 Sex
--- OUTSIDE RECORDS SUMMARY | 2022-08-07 20:04 | XMS_ITS | Continuity of Care Document ---
:1975 Author Organization [facility] Address [address] [place] [address]- Care Team Providers Name Role Phone Ann-Marie Camacho MD [id number] Date[facility] - 01/26/[address] [address]- Discharge Disposition: A-D/C Home Attending Physician: Abby Peña MD Admitting Physician: Abby Peña MD Referring Physician: Not on Staff, Referring [...] Refills, Maintenance, Tablet, Route to Pharmacy Electronically, [id number], [facility]/pharmacy #[id number] Start Date: 08/26/18 Status: Orderedcetirizine 10 [...] patch, 0 Refills, Maintenance, 04/08/21 23:31:00 EDT, [facility] #[id number], Partial fill upon patient request if the [...] 11 Refills, Maintenance, 01/09/21 16:20:00 EDT, Tablet, [facility] #[id number], Partial fill upon patient request if the prescription is for a schedule II opioid drug., 170, cm, 09/04/20... Start Date: 01/09/21 Stop Date: 01/04/22 Status: Orderedmetoprolol 50 mg oral tablet 50 mg, By Mouth, Daily, for hypertension, # 30 tablet, Refills 1, Tot. Refills 1, Maintenance, 08/26/18 14:50:46 EST, Route to Pharmacy Electronically, [id number], [facility]/pharmacy #[id number] Start Date: 08/26/18 Status: OrderedMorPHINE Inj 4 mg, Injection, IV Push Slowly, Every 5 minutes for 3 doses/times, PRN for Pain , Moderate, and SBPgreater than 100, Routine, 01/25/22 20:41:00 EDT, Stop date Limited # of times Start Date: 01/25/22 Stop Date: 01/25/22 Status: CompletedMyrbetriq 50 mg oral tablet, extended [...] 0 Refills, Maintenance, 04/08/21 23:31:00 EDT, Tablet, [facility] #[id number], Partial fill upon patient request, 1 tablet [...] EC Tablet Start Date: 08/26/18 Status: OrderedPen [place], 29 G x 12.7 mm BD Ultra [...] tablet, 0 Refills,Maintenance, 04/03/21 17:35:00 EDT, Tablet, [facility] #[id number], Partial fill upon patient request if the [...] Vital Signs Most recent to oldest [Reference 1 2 3 Range]: Oxygen Saturation [94-100 %] 97 % 99 % 98 % (01/26/22 12:30 AM) (01/25/22 9:53 PM) (01/25/22 5:21 PM) Pulse Rate [55-90 bpm] 84 bpm 82 bpm 75 bpm (01/26/22 12:30 AM) (01/25/22 9:53 PM) (01/25/22 5:21 PM) Blood Pressure [90-138/55-84 mm 129/86 mm Hg 136/74 mm Hg 130/59 mm Hg Hg] (01/26/22 12:30 AM) (01/25/22 9:53 PM) (01/25/22 5:21 PM) Respiratory Rate [16-30 br/min] 16 br/min 16 br/min 18 br/min (01/26/22 12:30 AM) (01/25/22 11:26 PM) (01/25/22 9:53 PM) Temperature [96.8-100.4 DegF] 98.1 DegF 97.8 DegF 98 .7 DegF (01/26/22 12:30 AM) (01/25/22 5:21 PM) (01/25/22 2:56 PM) Mode of Delivery (Oxygen) Room air Room air Room a ir (01/26/22 12:30 AM) (01/25/22 9:53 PM) (01/25/22 5:21 PM) Blood pressure sites Arm, right Arm, right Arm, right (01/26/22 12:30 AM) (01/25/22 9:53 PM) (01/25/22 5:21 PM) Temperature Route Oral Oral Oral (01/26/22 12:30 AM) (01/25/22 5:21 PM) (01/25/22 2:56 PM) Social History Social History Type Response Smoking Status Current every day smoker; To bacco user in household: Yes entered on: 05/27/14 Sex
--- OUTSIDE RECORDS SUMMARY | 2022-08-07 20:04 | XMS_ITS | Continuity of Care Document ---
:1975 Author Organization [facility] Address [address] [place] [address]- Care Team Providers Name Role Phone Harley BARBER, Pari Gillespie Primary Care Physician Encounter [facility] [place] Date(s): 08/14/19 - 08/21/19 [facility] [address] [place] [address]- [facility] Attending Physician: Conner FOUNTAIN, Indra Baron Referring Physician: Pari Souza NP Allergies, Adverse Reactions, Alerts Substance Reaction Severity Status lithium bad reaction Active penicillins can't breathe Active Adhesive Bandage adhesive on patches-skin irritations Active Other Food Allergy1 rash Active LaMICtal rash Active TEGretol XR Active Vraylar Active 1artichoke Immunizations Not Given Vaccine Date Status Refusal Reason pneumococcal 23-valent vaccine 06/08/15 Not Given P atient Refuses Medications aspirin 81 mg oral delayed release tablet 81 mg, By Mouth, Daily, # 30 tablet, Refills 0, Tot. Refills 0, Maintenance, 02/11/19 15:56:27 EDT, Route to Pharmacy Electronically, [id number], [facility] Start Date: 02/11/19 Stop Date: 03/13/19 Status: Orderedatorvastatin 20 mg oral tablet = 20 mg, By Mouth, Daily at bedtime, for hyperlipidemia, # 30 tablet, 1 Refills, Maintenance, Tablet, Route to Pharmacy Electronically, [id number], [facility]acy #[id number] Start Date: 08/26/18 Status: OrderedBactrim DS 800 mg-160 mg oral tablet 1 tablet, By Mouth, 2 times a day, for 10 days, # 20 tablet, 0 Refills, Acute 08/24/19 10:46:00 EST,08/14/19 10:46:00 EST, Tablet, [facility]/pharmacy #[id number], 1 tablet By Mouth 2 times a day,x10 days, 170, cm, 08/14/19 10:37:00 EST, Height, 139.8, kg, 08/14/... Start Date: 08/14/19 Stop Date: 08/24/19 Status: Orderedbrexpiprazole 4 mg oral tablet 1 tablet = 4 mg, By Mouth, Daily, # 30 tablet, 0 Refills, Maintenance, 01/13/19 12:00:29 EDT, Tablet Start Date: 01/13/19 Status: Orderedlisinopril 40 mg oral tablet 1 tablet = 40 mg, By Mouth, Daily, for hypertension, # 30 tablet, 1 Refills, Maintenance, 08/26/18 14:49:37 EST, Tablet Start Date: 08/26/18 Status: OrderedLORazepam 1 mg oral tablet 1 tablet = 1 mg, By Mouth, 2 times a day, PRN as needed for anxiety, 0 Refills, Maintenance, 02/11/19 13:58:14 EDT, Tablet Start Date: 02/11/19 Status: Orderedmagnesium oxide 400 mg oral tablet 1 tablet = 400 mg, By Mouth, Daily at bedtime, preventatively for headaches, # 90 tablet, 1 Refills,Maintenance, 04/20/19 19:35:48 EDT, Tablet Start Date: 04/20/19 Stop Date: 10/17/19 Status: OrderedmetFORMIN 1000 mg oral tablet, extended release 1 tablet = 1,000 mg, By Mouth, Daily at bedtime, for diabetes mellitus, # 30 tablet, 1 Refills, Maintenance, 08/26/18 14:50:12 EST, ER Tablet Start Date: 08/26/18 Status: Orderedmetoprolol 50 mg oral tablet 50 mg, By Mouth, Daily, for hypertension, # 30 tablet, Refills 1, Tot. Refills 1, Maintenance, 08/26/18 14:50:46 EST, Route to Pharmacy Electronically, [id number], [facility]acy #[id number] Start Date: 08/26/18 Status: OrderedMultivitamin Tablet 1 tablet, By Mouth, Daily, 0 Refills, Maintenance, 09/12/17 9:49:15, Tablet Start Date: 09/12/17 Status: Orderedmupirocin 2% topical ointment 1 application, Topically, 3 times a day, # 15 Gm, 0 Refills, Acute 08/27/19 10:46:00 EST, 08/14/19 10:46:00 EST, Ointment, [facility]/pharmacy #[id number], 1 application Topically 3 times a day, 170, cm, 08/14/19 10:37:00 EST, Height, 139.8, kg, 08/14/19 10:37:00... Start Date: 08/14/19 Stop Date: 08/27/19 Status: OrderedMyrbetriq 50 mg oral tablet, extended [...] Start Date: 02/11/19 Stop Date: 02/18/19 Status: Orderedpantoprazole 40 mg oral delayed release tablet = 40 mg, By Mouth, 2 times a day, for acid reflux, # 30 tablet, 1 Refills, Maintenance, 08/26/18 14:51:11 EST, EC Tablet Start Date: 08/26/18 Status: Orderedriboflavin 100 mg oral tablet 2 tablet = 200 mg, By Mouth, 2 times a day, # 360 tablet, 1 Refills, Maintenance, 04/20/19 19:36:26 EDT Start Date: 04/20/19 Stop Date: 10/17/19 Status: Orderedtopiramate 100 mg oral tablet = 100 mg, By Mouth, Daily at bedtime, 0 Refills, Maintenance, 02/11/19 15:49:04 EDT, Tablet Start Date: 02/11/19 Status: OrderedtraZODone 100 mg oral tablet 100 mg, By Mouth, Daily at bedtime, PRN, take 1 tablet daily at bedtime as needed for sleep, # 30 tablet, Refills 1, Tot. Refills 1, Maintenance, Insomnia, 09/12/18 9:26:38 EST, Route to Pharmacy Electronically, [id number], C... Start Date: 09/12/18 Status: Ordered Problem List Condition Effective Dates [...] oldest [Reference Range]: 1 Height 170 cm (08/14/19 10:37 AM) Weight 139.8 kg (08/14/19 10:37 AM) Oxygen Saturation [94-100 %] 97 % (08/14/19 10:37 AM) Pulse Rate [55-90 bpm] 61 bpm (08/14/19 10:37 AM) Body Mass Index [18.5-24.99] 48.37 *>HHI* (08/14/19 10:37 AM) Blood Pressure [90-138/55-84 mm Hg] 145/88 mm Hg *H* (08/14/19 10:37 AM) Respiratory Rate [16-30 br/min] 26 br/min (08/14/19 10:37 AM) Temperature [96.8-100.4 DegF] 98.5 DegF (08/14/19 10:37 AM) Mode of Delivery (Oxygen) Room air (08/14/19 10:37 AM) Blood pressure sites Arm, left (08/14/19 10:37 AM) Temperature Route Oral (08/14/19 10:37 AM) Dry Weight 139.8 kg (08/14/19 10:37 AM) Weight Obtained Via Standing scale (08/14/19 10:37 AM) Dry Weight Obtained Via Standing scale (08/14/19 10:37 AM) Social History Social History Type Response Smoking Status Current every day smoker; To bacco user in household: Yes entered on: 05/27/14 Sex
--- OUTSIDE RECORDS SUMMARY | 2022-08-07 20:04 | XMS_ITS | Continuity of Care Document ---
:1975 Author Organization [facility] Address [address] [place] [address]- Care Team Providers Name Role Phone Christos Britt MD Primary Care Physician Encounter [facility] [place] Date(s): 09/04/20 - 10/04/20 [facility] [address], [place] [address] Attending Physician: Pattie Todd Admitting Physician: Pattie Todd Referring Physician: [id number] Allergies, Adverse Reactions, Alerts Substance Reaction Severity Status lithium bad reaction Active LaMICtal rash Active Vraylar Active penicillins can't breathe Active Adhesive Bandage adhesive on patches-skin irritations Active Other Food Allergy1 rash Active TEGretol XR Active 1artichoke Immunizations Given and Recorded Vaccine Date Status Refusal Reason tetanus/diphtheria/pertussis, acel(Tdap) 05/10/20 Given Not Given Vaccine Date Status Refusal Reason pneumococcal 23-valent vaccine 06/08/15 Not Given P atient Refuses Medications atorvastatin 20 mg oral tablet = 20 mg, By Mouth, Daily at bedtime, for hyperlipidemia, # 30 tablet, 1 Refills, Maintenance, Tablet, Route to Pharmacy Electronically, [id number], [facility]/pharmacy #[id number] Start Date: 08/26/18 Status: Orderedbrexpiprazole 4 [...] 10/02/19 14:03:00 EST, Route to Pharmacy Electronically, [facility], 170, cm, 10/02/19 6:28:00 EST, Height, 140.9, k... Start Date: 10/02/19 Stop Date: 11/01/19 Status: OrderedcloZAPine 150 mg oral tablet, disintegrating 1 tablet = 150 mg, By Mouth, 2 times a day, # 60 tablet, 0 Refills, Maintenance, 08/11/20 18:56:00 EST, DIS Tablet, Partial fill upon patient request if the prescription is for a schedule II opioid drug. Start Date: 08/11/20 Status: Orderedibuprofen 400 mg oral tablet 400 mg, 1, tablet, By Mouth, Every 8 hours, PRN, not to exceed 3200 mg/day, # 30 tablet, Refills 0, Tot. Refills 0, Maintenance, as needed for pain, 01/18/20 22:09:00 EDT, Route to Pharmacy Electronically, [facility]/pharmacy #[id number], 170, cm, 10/02/19 6:28:00... Start Date: [...] 08/26/18 14:50:46 EST, Route to Pharmacy Electronically, [id number], [facility]/pharmacy #[id number] Start Date: 08/26/18 Status: OrderedMyrbetriq 50 [...] 01/18/20 22:09:00 EDT, Route to Pharmacy Electronically, [facility]/pharmacy #[id number], Partial fill upon patient request, 170, [...] 09/12/18 9:26:38 EST, Route to Pharmacy Electronically, [id number], C... Start Date: 09/12/18 Status: OrderedTylenol 325 mg oral capsule 2 capsule = 650 mg, By Mouth, Every 4 hours, PRN as needed for pain, not to exceed 4000 mg/day, # 50capsule, 0 Refills, Maintenance, 01/18/20 22:09:00 EDT, Capsule, [facility]/pharmacy #[id number], 170, cm, 10/02/19 6:28:00 EST, Height, 140.9, kg, 09/27/19 15:50:... Start Date: 01/18/20 Status: OrderedZofran 4 mg oral tablet 1 tablet = 4 mg, By Mouth, Every 8 hours, PRN Vomiting, # 10 tablet, 0 Refills, Maintenance, 01/18/20 22:09:00 EDT, Tablet, [facility]/pharmacy #[id number], 170, cm, 10/02/19 6:28:00 EST, Height, 140.9, kg, 09/27/19 15:50:00 EST, Dry Weight Start Date: 01/18/20 Status: OrderedZofran ODT 4 mg oral tablet, disintegrating 1 tablet = 4 mg, By Mouth, 3 times a day, PRN as needed for nausea/vomiting, # 10 tablet, 0 Refills,Soft Stop, 09/13/19 17:42:00 EST, DIS Tablet, [facility]/pharmacy #[id number], 170, cm, 08/27/19 10:56:00 EST, Height, [...]
--- OUTSIDE RECORDS SUMMARY | 2022-08-07 20:04 | XMS_ITS | Continuity of Care Document ---
:1975 Author Organization [facility] Address [address] [facility], 3rd Floor, [address] [place] [address]- Care Team Providers Name Role Phone Ann-Marie Camacho MD Primary Care Physician Encounter [facility] [place] Date(s): 06/05/22 - 07/05/22 [facility] [address] [facility], [address] Floor, [address] [place] [address] Attending Physician: Pattie Todd Admitting Physician: Admtr, Ar8 Referring Physician: Admtr, Ar8 Allergies, Adverse Reactions, Alerts Substance Reaction Severity Status lithium bad reaction Active Vraylar Active penicillins can't breathe Active [...] tablet, 0 Refills, Maintenance, 01/29/22 23:00:00 EDT, [facility] #[id number], Partial fill upon patient request if the prescription is for a schedule II opioid drug., 170, c... Start Date: 01/29/22 Stop Date: 02/05/22 Status: Orderedatorvastatin 20 mg oral tablet = 20 mg, By Mouth, Daily at bedtime, for hyperlipidemia, # 30 tablet, 1 Refills, Maintenance, Tablet, Route to Pharmacy Electronically, [id number], [facility]/pharmacy #[id number] Start Date: 08/26/18 Status: Orderedcetirizine [...] patch, 0 Refills, Maintenance, 04/08/21 23:31:00 EDT, [facility] #[id number], Partial fill upon patient request if the [...] 11 Refills, Maintenance, 01/09/21 16:20:00 EDT, Tablet, [facility] #[id number], Partial fill upon patient request if the prescription is for a schedule II opioid drug., 170, cm, 09/04/20... Start Date: 01/09/21 Stop Date: 01/04/22 Status: Orderedmetoprolol 50 mg oral tablet 50 mg, By Mouth, Daily, for hypertension, # 30 tablet, Refills 1, Tot. Refills 1, Maintenance, 08/26/18 14:50:46 EST, Route to Pharmacy Electronically, [id number], [facility]/pharmacy #[id number] Start Date: 08/26/18 Status: OrderedMyrbetriq 50 mg oral tablet, extended release 1 tablet = 50 mg, By Mouth, Daily, do not crush or chew, # 30 tablet, 0 Refills, Maintenance, 02/12/19 22:15:08 EDT, ER Tablet Start Date: 02/12/19 Status: Orderednaratriptan 2.5 mg oral tablet 1 tablet = 2.5 mg, By Mouth, Daily, PRN for migraine headache, may repeat dose once in 4 hours, # 9 tablet, 3 Refills, Maintenance, 06/05/22 8:56:00 EDT, Tablet, [facility] #[id number], Partial fill upon patient request if the prescription is for... Start Date: 06/05/22 Status: OrderedNorco 325 mg-5 mg oral tablet 1 tablet, By Mouth, Every 4 hours, PRN for pain, partial fill at patient request, # 10 tablet, 0 Refills, Maintenance, 04/08/21 23:31:00 EDT, Tablet, [facility] #[id number], Partial fill upon patient request, 1 tablet [...] EC Tablet Start Date: 08/26/18 Status: OrderedPen [place], 29 G x 12.7 mm BD Ultra [...] tablet, 0 Refills,Maintenance, 04/03/21 17:35:00 EDT, Tablet, [facility] #[id number], Partial fill upon patient request if the prescription is for a schedule II op... 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 1Problem added by Discern Expert Social History Social History Type Response Smoking Status Current every day smoker; To bacco user in household: Yes entered on: 05/27/14 Sex Patient Care team information Care Team PersonnelName: Janice FOUNTAIN , Ann-Marie Position: [facility] Outreach Member Role: PCP Address: Address: [address] [place] [address]- Name: Becky Spaulding RN Position: [facility] RN Member Role: Primary Care Nurse Name: Ora Novak Position: [facility] AMB [place] Member Role: Lifetime Consulting Physician Name: Joselin Ojeda RN Position: [facility] RN Member Role: Primary Care Nurse Name: Radha Beasley RN Position: [facility] RN Member Role: Primary Care Nurse Name: Carli hAuja Position: [facility] Outreach Member Role: Lifetime Consulting Physician Name: Rivka Hugo RN Position: [facility] RN Member Role: Primary Care Nurse Name: Savi Simms Position: [facility] Outreach Member Role: Lifetime Consulting Physician Name: Corrina Cantu RN Position: [facility] ED RN W/OE and Tasks Member Role: Primary Care Nurse Name: Crys Bonilla MD Position: [facility] CUSTOMER LOGISTICS MANAGER MD Member Role: Lifetime CUSTOMER LOGISTICS MANAGER Physician Address: Address: [address] [place] [address] [facility] [place], [place] [address] Name: Doreen Acuña RN Position: [facility] RN Member Role: Primary Care Nurse Care Team Related PersonsName: ODILON SEARS Address: [address] [place] [address] Name: RAMU REDD Address: home [address] [place] [address]
--- OUTSIDE RECORDS SUMMARY | 2022-08-07 20:04 | XMS_ITS | Continuity of Care Document ---
:1975 Author Organization [facility] Address [address] [place] [address]- Care Team Providers Name Role Phone Not on Staff, PCP Primary Care Physician Unavailable Encounter [facility] [place] Date(s): 03/09/21 - 03/16/21 [facility] [address] [place] [address]- Encounter Diagnosis Left sided abdominal pain of unknown cause (Discharge Diagnosis) - 03/09/21 Attending Physician: Rich Grider MD Allergies, Adverse Reactions, Alerts Substance Reaction Severity Status lithium bad reaction Active penicillins can't breathe Active Other Food Allergy1 rash Active LaMICtal rash Active TEGretol XR Active Vraylar Active Adhesive Bandage adhesive on patches-skin irritations Active 1artichoke Immunizations Given and Recorded Vaccine [...] Refills, Maintenance, Tablet, Route to Pharmacy Electronically, [id number], [facility]/pharmacy #[id number] Start Date: 08/26/18 Status: Orderedcetirizine [...] II opioid drug. Start Date: 08/11/20 Status: OrderedLinzess 145 mcg oral capsule 1 [...] 11 Refills, Maintenance, 01/09/21 16:20:00 EDT, Tablet, [id number], Partial fill upon patient request if the prescription is for a schedule II opioid drug., 170, cm, 09/04/20... Start Date: 01/09/21 Stop Date: 01/04/22 Status: Orderedmetoprolol 50 mg oral tablet 50 mg, By Mouth, Daily, for hypertension, # 30 tablet, Refills 1, Tot. Refills 1, Maintenance, 08/26/18 14:50:46 EST, Route to Pharmacy Electronically, [id number], [facility]/pharmacy #[id number] Start Date: 08/26/18 Status: OrderedMyrbetriq 50 mg oral tablet, extended release 1 tablet = 50 mg, By Mouth, Daily, do not crush or chew, # 30 tablet, 0 Refills, Maintenance, 02/12/19 22:15:08 EDT, ER Tablet Start Date: 02/12/19 Status: Orderedondansetron 4 mg oral tablet, disintegrating 1 tablet = 4 mg, By Mouth, 3 times a day, PRN Vomiting, for 5 days, # 15 tablet, 0 Refills, Acute 03/19/21 14:25:00 EDT, 03/14/21 14:25:00 EDT, [facility] #[id number], Partial fill upon patient request if the prescription is for a schedule II opi... Start Date: 03/14/21 Stop Date: 03/19/21 Status: OrderedOne Touch Fine Point Lancets See [...] EST, Dry Weight Start Date: 12/30/20 Status: OrderedoxyCODONE 5 mg oral tablet 5 mg, 1, tablet, By Mouth, Every 8 hours, PRN, for 5 days, # 15 tablet, Refills 0, Tot. Refills 0, Acute 03/19/21 14:24:00 EDT, Pain , Moderate, 03/14/21 14:24:00 EDT, [facility], Partial fill upon patient request if the prescription is for a s... Start Date: 03/14/21 Stop Date: 03/19/21 Status: Orderedpantoprazole 40 mg oral delayed release tablet = 40 mg, By Mouth, 2 times a day, for acid reflux, # 30 tablet, 1 Refills, Maintenance, 08/26/18 14:51:11 EST, EC Tablet Start Date: 08/26/18 Status: OrderedPen [place], 29 G x 12.7 mm BD Ultra Fine See Instructions, # 90 each, Refills 4, Tot. Refills 4, Maintenance, use as directed for Type 2 Diabetes Mellitus, 01/09/21 16:14:00 EDT, Supply, 170, cm, 09/04/20 11:16:00 EST, Height, 148.8, kg, 09/04/20 11:21:00 EST, Dry Weight Start Date: 01/09/21 Stop Date: 06/08/21 Status: Ordered Problem List Condition Effective Dates Status Health Status Informant Abscess(Confirmed) Active Chronic back pain(Confirmed) Active Diabetes mellitus(Confirmed) Active GERD - Gastro-esophageal reflux Active disease(Confirmed) Hypertension(Confirmed) Active Major depression(Confirmed) Active Migraine(Confirmed) Active JILLIAN - Obstructive sleep Active apnea(Confirmed) Other Pain Disorders Related to Active Psychological Factors(Confirmed) 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) Diagnosis Diagnosis Type Effective Dates Health Status Clinical In formant Service Left sided Discharge 03/09/21 abdominal pain Diagnosis of unknown cause Vital Signs Most recent to oldest [Reference Range]: 1 Height 170 cm (03/09/21 6:08 PM) Oxygen Saturation [94-100 %] 97 % (03/09/21 6:08 PM) Pulse Rate [55-90 bpm] 97 bpm *H* (03/09/21 6:08 PM) Blood Pressure [90-138/55-84 mm Hg] 136/60 mm Hg (03/09/21 6:08 PM) Respiratory Rate [16-30 br/min] 20 br/min (03/09/21 6:08 PM) Temperature [96.8-100.4 DegF] 98.1 DegF (03/09/21 6:08 PM) Mode of Delivery (Oxygen) Room air (03/09/21 6:08 PM) Blood pressure sites Arm, right (03/09/21 6:08 PM) Temperature Route Temporal (03/09/21 6:08 PM) Dry Weight 143.6 kg (03/09/21 6:08 PM) Dry Weight Obtained Via Standing scale (03/09/21 6:08 PM) Social History Social History Type Response Smoking Status Current every day smoker; To bacco user in household: Yes entered on: 05/27/14 Sex
--- OUTSIDE RECORDS SUMMARY | 2022-08-07 20:04 | XMS_ITS | Continuity of Care Document ---
:1975 Author Organization [facility] Address [address] [place] [address]- Care Team Providers Name Role Phone Harley BARBER, Pari Gillespie Primary Care Physician En[place] [facility] [place] Date(s): 09/13/19 - 09/13/[address] [address]- [facility] Encounter Diagnosis Abdominal pain (Final) - 09/13/19 Discharge Disposition: A-D/C Home Attending Physician: Reynold Romo MD Admitting Physician: Reynold Romo MD Referring Physician: Not on Staff, Referring [...] 02/11/19 15:56:27 EDT, Route to Pharmacy Electronically, [id number], [facility] Start Date: 02/11/19 Stop Date: 03/13/19 Status: Orderedatorvastatin 20 mg oral tablet = 20 mg, By Mouth, Daily at bedtime, for hyperlipidemia, # 30 tablet, 1 Refills, Maintenance, Tablet, Route to Pharmacy Electronically, [id number], [facility]/pharmacy #[id number] Start Date: 08/26/18 Status: Orderedbrexpiprazole 4 [...] 08/26/18 14:50:46 EST, Route to Pharmacy Electronically, [id number], [facility]/pharmacy #[id number] Start Date: 08/26/18 Status: OrderedMultivitamin Tablet 1 tablet, By Mouth, Daily, 0 Refills, Maintenance, 09/12/17 9:49:15, Tablet Start Date: 09/12/17 Status: OrderedMyrbetriq 50 mg oral tablet, extended [...] 09/12/18 9:26:38 EST, Route to Pharmacy Electronically, [id number], C... Start Date: 09/12/18 Status: OrderedZofran ODT 4 mg oral tablet, disintegrating 1 tablet = 4 mg, By Mouth, 3 times a day, PRN as needed for nausea/vomiting, # 10 tablet, 0 Refills,Soft Stop, 09/13/19 17:42:00 EST, DIS Tablet, [facility]/pharmacy #[id number], 170, cm, 08/27/19 10:56:00 EST, Height, [...] pain(Confirmed) Vital Signs Most recent to oldest 1 2 3 [Reference Range]: Oxygen Saturation [94-100 %] 95 % 98 % 99 % (09/13/19 5:39 PM) (09/13/19 2:54 PM) (09/13/19 11: 17 AM) Pulse Rate [55-90 bpm] 68 bpm 73 bpm 82 bpm (09/13/19 5:39 PM) (09/13/19 2:54 PM) (09/13/19 11: 17 AM) Blood Pressure [90-138/55-84 166/82 mm Hg 124/71 mm Hg 144 /83 mm Hg mm Hg] *H* (09/13/19 2:54 PM) *H* (09/13/19 5:39 PM) (09/13/19 11:17 AM) Respiratory Rate [16-30 18 br/min 16 br/min 20 br/mi n br/min] (09/13/19 5:39 PM) (09/13/19 3:52 PM) (09/13/19 2:5 4 PM) Temperature [96.8-100.4 DegF] 98.2 DegF 98.9 DegF (09/13/19 5:39 PM) (09/13/19 11:17 AM) Mode of Delivery (Oxygen) Room air Room air Room a ir (09/13/19 5:39 PM) (09/13/19 2:54 PM) (09/13/19 11: 17 AM) Blood pressure sites Arm, right Arm, right Arm, right (09/13/19 5:39 PM) (09/13/19 2:54 PM) (09/13/19 11: 17 AM) Temperature Route Oral Oral (09/13/19 5:39 PM) (09/13/19 11:17 AM) Social History Social History Type Response Smoking Status Current every day smoker; To bacco user in household: Yes entered on: 05/27/14 Sex
--- OUTSIDE RECORDS SUMMARY | 2022-08-07 20:04 | XMS_ITS | Continuity of Care Document ---
:1975 Author Organization [facility] Address [address] [facility], 3rd Floor, [address] [place] [address]- Care Team Providers Name Role Phone Lorenza FOUNTAIN, Christos Baron Primary Care Physician Encounter [facility] [place] Date(s): 09/09/19 - 10/10/19 [facility] [address] [facility], 3rd Floor, [address] [place] [address]- [facility] Attending Physician: Genaro Acosta NP Admitting Physician: Genaro Acosta NP Allergies, Adverse Reactions, Alerts Substance Reaction [...] Refills, Maintenance, Tablet, Route to Pharmacy Electronically, [id number], [facility]/pharmacy #[id number] Start Date: 08/26/18 Status: [...] 10/02/19 14:03:00 EST, Route to Pharmacy Electronically, [facility], 170, cm, 10/02/19 6:28:00 EST, Height, 140.9, k... Start Date: 10/02/19 Stop Date: 11/01/19 Status: Ordereddicyclomine 10 mg oral capsule 1 capsule = 10 mg, By Mouth, 4 times a day, PRN Nausea & Vomiting, # 28 capsule, 0 Refills, Maintenance, 10/02/19 14:02:00 EST, Capsule, [facility], 170, cm, 10/02/19 6:28:00 EST, Height, 140.9, kg, 09/27/19 15:50:00 EST, Dry Weight Start Date: 10/02/19 Stop Date: 10/09/19 Status: Orderedlisinopril 40 mg oral tablet 1 [...] 08/26/18 14:50:46 EST, Route to Pharmacy Electronically, [id number], [facility]/pharmacy #[id number] Start Date: 08/26/18 Status: OrderedMultivitamin Tablet 1 tablet, By Mouth, Daily, 0 Refills, Maintenance, 09/12/17 9:49:15 EST, Tablet Start Date: 09/12/17 Status: OrderedMyrbetriq 50 mg oral tablet, extended release 1 tablet = 50 mg, By Mouth, Daily, do not crush or chew, # 30 tablet, 0 Refills, Maintenance, 02/12/19 22:15:08 EDT, ER Tablet Start Date: 02/12/19 Status: OrderedNicoderm C-Q Clear 21 mg/24 hr transdermal film, extended release 1 patch, Topically, Daily, # 30 patch, 0 Refills, Acute 10/31/19 21:00:00 EST, 10/02/19 14:03:00 EST, Patch, [facility], 170, cm, 10/02/19 6:28:00 EST, Height, 140.9, kg, 09/27/19 15:50:00 EST, Dry Weight Start Date: 10/02/19 Stop Date: 10/31/19 Status: Orderednitroglycerin 0.4 mg sublingual tablet = [...] 09/12/18 9:26:38 EST, Route to Pharmacy Electronically, [id number], C... Start Date: 09/12/18 Status: OrderedZofran ODT [...]
--- OUTSIDE RECORDS SUMMARY | 2022-08-07 20:04 | XMS_ITS | Continuity of Care Document ---
:1975 Author Organization [facility] Address [address] [place] [address]- Care Team Providers Name Role Phone Harley BARBER, Pari Gillespie Primary Care Physician Encounter [facility] [place] Date(s): 02/23/20 - 03/24/20 [facility] [address] [place] [address]- [facility] Attending Physician: Pattie Todd Admitting Physician: AdmtrPattie Referring Physician: Admtr, Ar8 Allergies, Adverse Reactions, [...] Refills, Maintenance, Tablet, Route to Pharmacy Electronically, [id number], [facility]/pharmacy #[id number] Start Date: 08/26/18 Status: Orderedbrexpiprazole [...] 10/02/19 14:03:00 EST, [facility], [facility], 170, cm, 10/02/19 6:28:00 EST, Height, 140.9, k... Start Date: 10/02/19 Stop Date: 11/01/19 Status: Orderedibuprofen 400 mg oral tablet 400 mg, 1, tablet, By Mouth, Every 8 hours, PRN, not to exceed 3200 mg/day, # 30 tablet, Refills 0, Tot. Refills 0, Maintenance, as needed for pain, 01/18/20 22:09:00 EDT, Route to Pharmacy Electronically, [facility]/pharmacy #[id number], 170, cm, 10/02/19 6:28:00... Start Date: [...] 08/26/18 14:50:46 EST, Route to Pharmacy Electronically, [id number], [facility]acy #[id number] Start Date: 08/26/18 Status: OrderedMyrbetriq [...] 01/18/20 22:09:00 EDT, Route to Pharmacy Electronically, [facility]/pharmacy #[id number], Partial fill upon patient request, 170, [...] 09/12/18 9:26:38 EST, Route to Pharmacy Electronically, [id number], C... Start Date: 09/12/18 Status: OrderedTylenol 325 mg oral capsule 2 capsule = 650 mg, By Mouth, Every 4 hours, PRN as needed for pain, not to exceed 4000 mg/day, # 50capsule, 0 Refills, Maintenance, 01/18/20 22:09:00 EDT, Capsule, [facility]/pharmacy #[id number], 170, cm, 10/02/19 6:28:00 EST, Height, 140.9, kg, 09/27/19 15:50:... Start Date: 01/18/20 Status: OrderedZofran 4 mg oral tablet 1 tablet = 4 mg, By Mouth, Every 8 hours, PRN Vomiting, # 10 tablet, 0 Refills, Maintenance, 01/18/20 22:09:00 EDT, Tablet, [facility]acy #[id number], 170, cm, 10/02/19 6:28:00 EST, Height, 140.9, kg, 09/27/19 15:50:00 EST, Dry Weight Start Date: 01/18/20 Status: OrderedZofran ODT 4 mg oral tablet, disintegrating 1 tablet = 4 mg, By Mouth, 3 times a day, PRN as needed for nausea/vomiting, # 10 tablet, 0 Refills,Soft Stop, 09/13/19 17:42:00 EST, DIS Tablet, [facility]/pharmacy #[id number], 170, cm, 08/27/19 10:56:00 EST, [...]
--- OUTSIDE RECORDS SUMMARY | 2022-08-07 20:04 | XMS_ITS | Continuity of Care Document ---
:1975 Author Organization [facility] Address [address] [place] [address]- Care Team Providers Name Role Phone Lorenza FOUNTAIN, Christos Baron Primary Care Physician En[place] [facility] [place] Date(s): 10/13/19 - 10/13/[address] [address]- [facility] Encounter Diagnosis Anxiety (Final) - 10/13/19 Discharge Disposition: A-D/C Home Attending Physician: Paola Richardson MD Admitting Physician: Paola Richardson MD Referring Physician: Not on Staff, Referring [...] Refills, Maintenance, Tablet, Route to Pharmacy Electronically, [id number], [facility]/pharmacy #[id number] Start Date: 08/26/18 Status: Orderedbrexpiprazole [...] 10/02/19 14:03:00 EST, Route to Pharmacy Electronically, [facility], 170, cm, 10/02/19 6:28:00 EST, Height, 140.9, k... Start Date: 10/02/19 Stop Date: 11/01/19 Status: Ordereddicyclomine 10 mg oral capsule 1 capsule = 10 mg, By Mouth, 4 times a day, PRN Nausea & Vomiting, # 28 capsule, 0 Refills, Maintenance, 10/02/19 14:02:00 EST, Capsule, [facility], 170, cm, 10/02/19 6:28:00 EST, [...] 08/26/18 14:50:46 EST, Route to Pharmacy Electronically, [id number], [facility]/pharmacy #[id number] Start Date: 08/26/18 Status: OrderedMultivitamin [...] 10/31/19 21:00:00 EST, 10/02/19 14:03:00 EST, Patch, [facility], 170, cm, 10/02/19 6:28:00 EST, [...] 09/12/18 9:26:38 EST, Route to Pharmacy Electronically, [id number], C... Start Date: 09/12/18 Status: OrderedZofran ODT [...] Most recent to oldest [Reference Range]: 1 Oxygen Saturation [94-100 %] 99 % (10/13/19 5:41 PM) Pulse Rate [55-90 bpm] 78 bpm (10/13/19 5:41 PM) Blood Pressure [90-138/55-84 mm Hg] 132/67 mm Hg (10/13/19 5:41 PM) Respiratory Rate [16-30 br/min] 19 br/min (10/13/19 5:41 PM) Temperature [96.8-100.4 DegF] 98.1 DegF (10/13/19 5:41 PM) Mode of Delivery (Oxygen) Room air (10/13/19 5:41 PM) Blood pressure sites Arm, left (10/13/19 5:41 PM) Temperature Route Oral (10/13/19 5:41 PM) Social History Social History Type Response Smoking Status Current every day smoker; To bacco user in household: Yes entered on: 05/27/14 Sex
--- OUTSIDE RECORDS SUMMARY | 2022-08-07 20:04 | XMS_ITS | Continuity of Care Document ---
:1975 Author Organization [facility] Address [address] [place] [address]- Care Team Providers Name Role Phone Lorenza FOUNTAIN, Christos Baron Primary Care Physician [place] [facility] [place] - 01/12/[address] [address]- [facility] Attending Physician: Pari Souza NP Allergies, Adverse Reactions, [...] Refills, Maintenance, Tablet, Route to Pharmacy Electronically, [id number], [facility]/pharmacy #[id number] Start Date: 08/26/18 Status: Orderedbrexpiprazole [...] 10/02/19 14:03:00 EST, Route to Pharmacy Electronically, [facility], 170, cm, 10/02/19 6:28:00 EST, Height, 140.9, k... Start Date: 10/02/19 Stop Date: 11/01/19 Status: Ordereddicyclomine 10 mg oral capsule 1 capsule = 10 mg, By Mouth, 4 times a day, PRN Nausea & Vomiting, # 28 capsule, 0 Refills, Maintenance, 10/02/19 14:02:00 EST, Capsule, [facility], 170, cm, 10/02/19 6:28:00 [...] 08/26/18 14:50:46 EST, Route to Pharmacy Electronically, [id number], [facility]/pharmacy #[id number] Start Date: 08/26/18 Status: OrderedMultivitamin [...] 09/12/18 9:26:38 EST, Route to Pharmacy Electronically, [id number], C... Start Date: 09/12/18 Status: OrderedZofran ODT 4 mg oral tablet, disintegrating 1 tablet = 4 mg, By Mouth, 3 times a day, PRN as needed for nausea/vomiting, # 10 tablet, 0 Refills,Soft Stop, 09/13/19 17:42:00 EST, DIS Tablet, [facility]/pharmacy #[id number], 170, cm, 08/27/19 10:56:00 EST, [...]
--- OUTSIDE RECORDS SUMMARY | 2022-08-07 20:04 | XMS_ITS | Continuity of Care Document ---
:1975 Author Organization [facility] Address [address] [place] [address]- Care Team Providers Name Role Phone Harley BARBER, Pari Gillespie Primary Care Physician [place] [facility] [place] 05/10/20 - 06/09/20 [facility] [address] [place] [address]- [facility] Attending Physician: Pattie Todd Admitting Physician: Pattie Todd Referring Physician: AdmtrPattie Allergies, Adverse Reactions, Alerts Substance Reaction Severity Status lithium bad reaction Active penicillins can't breathe Active TEGretol XR Active Vraylar Active Adhesive Bandage adhesive on patches-skin irritations Active Other Food Allergy1 rash Active LaMICtal rash Active 1artichoke Immunizations Given and Recorded Vaccine Date Status Refusal Reason tetanus/diphtheria/pertussis, acel(Tdap) 05/10/20 Given Not Given Vaccine Date Status Refusal Reason pneumococcal 23-valent vaccine 06/08/15 Not Given P atient Refuses Medications atorvastatin 20 mg oral tablet = 20 mg, By Mouth, Daily at bedtime, for hyperlipidemia, # 30 tablet, 1 Refills, Maintenance, Tablet, Route to Pharmacy Electronically, [id number], [facility]/pharmacy #[id number] Start Date: 08/26/18 Status: Orderedbrexpiprazole 4 [...] 10/02/19 14:03:00 EST, Route to Pharmacy Electronically, [facility], 170, cm, 10/02/19 6:28:00 EST, Height, 140.9, k... Start Date: 10/02/19 Stop Date: 11/01/19 Status: Orderedibuprofen 400 mg oral tablet 400 mg, 1, tablet, By Mouth, Every 8 hours, PRN, not to exceed 3200 mg/day, # 30 tablet, Refills 0, Tot. Refills 0, Maintenance, as needed for pain, 01/18/20 22:09:00 EDT, Route to Pharmacy Electronically, [facility]/pharmacy #[id number], 170, cm, 10/02/19 6:28:00... Start Date: [...] 08/26/18 14:50:46 EST, Route to Pharmacy Electronically, [id number], [facility]/pharmacy #[id number] Start Date: 08/26/18 Status: OrderedMyrbetriq 50 [...] 01/18/20 22:09:00 EDT, Route to Pharmacy Electronically, [facility]/pharmacy #[id number], Partial fill upon patient request, 170, [...] 09/12/18 9:26:38 EST, Route to Pharmacy Electronically, [id number], C... Start Date: 09/12/18 Status: OrderedTylenol 325 mg oral capsule 2 capsule = 650 mg, By Mouth, Every 4 hours, PRN as needed for pain, not to exceed 4000 mg/day, # 50capsule, 0 Refills, Maintenance, 01/18/20 22:09:00 EDT, Capsule, [facility]/pharmacy #[id number], 170, cm, 10/02/19 6:28:00 EST, Height, 140.9, kg, 09/27/19 15:50:... Start Date: 01/18/20 Status: OrderedZofran 4 mg oral tablet 1 tablet = 4 mg, By Mouth, Every 8 hours, PRN Vomiting, # 10 tablet, 0 Refills, Maintenance, 01/18/20 22:09:00 EDT, Tablet, [facility]/pharmacy #[id number], 170, cm, 10/02/19 6:28:00 EST, Height, [...]
--- OUTSIDE RECORDS SUMMARY | 2022-08-07 20:04 | XMS_ITS | Continuity of Care Document ---
:1975 Author Organization [facility] Address [address] [place] [address]- Care Team Providers Name Role Phone Ann-Marie Camacho MD Primary Care Physician [place] [facility] [place] 05/26[place]21 [place] 06/25/21 [facility] [address] [place], [place] [address] Attending Physician: Pattie Todd Admitting Physician: Pattie [...] Refills, Maintenance, Tablet, Route to Pharmacy Electronically, [id number], [facility]/pharmacy #[id number] Start Date: 08/26/18 Status: Orderedcetirizine 10 [...] patch, 0 Refills, Maintenance, 04/08/21 23:31:00 EDT, [facility][id number], Partial fill upon patient request if the [...] 11 Refills, Maintenance, 01/09/21 16:20:00 EDT, Tablet, [facility][id number], Partial fill upon patient request if the prescription is for a schedule II opioid drug., 170, cm, 09/04/20... Start Date: 01/09/21 Stop Date: 01/04/22 Status: Orderedmetoprolol 50 mg oral tablet 50 mg, By Mouth, Daily, for hypertension, # 30 tablet, Refills 1, Tot. Refills 1, Maintenance, 08/26/18 14:50:46 EST, Route to Pharmacy Electronically, [id number], [facility]/pharmacy #[id number] Start Date: 08/26/18 Status: OrderedMyrbetriq 50 [...] 0 Refills, Maintenance, 04/08/21 23:31:00 EDT, Tablet, [facility][id number], Partial fill upon patient request, 1 tablet [...] EC Tablet Start Date: 08/26/18 Status: OrderedPen [place], 29 G x 12.7 mm BD Ultra [...] tablet, 0 Refills,Maintenance, 04/03/21 17:35:00 EDT, Tablet, [id number], Partial fill upon patient request if the [...]
--- OUTSIDE RECORDS SUMMARY | 2022-08-07 20:04 | XMS_ITS | Continuity of Care Document ---
:1975 Author Organization [facility] Address [address] [place] [address]- Care Team Providers Name Role Phone Lorenza FOUNTAIN, Christos Baron Primary Care Physician [place] [facility] [place] Date(s): 11/19/19 - 11/20/[address] [address]- [facility] Attending Physician: Pari Souza NP Allergies, Adverse [...] Refills, Maintenance, Tablet, Route to Pharmacy Electronically, [id number], [facility]/pharmacy #[id number] Start Date: 08/26/18 Status: [...] 10/02/19 14:03:00 EST, Route to Pharmacy Electronically, [facility], 170, cm, 10/02/19 6:28:00 EST, Height, 140.9, k... Start Date: 10/02/19 Stop Date: 11/01/19 Status: Ordereddicyclomine 10 mg oral capsule 1 capsule = 10 mg, By Mouth, 4 times a day, PRN Nausea & Vomiting, # 28 capsule, 0 Refills, Maintenance, 10/02/19 14:02:00 EST, Capsule, [facility], 170, cm, 10/02/19 6:28:00 [...] 08/26/18 14:50:46 EST, Route to Pharmacy Electronically, [id number], [facility]/pharmacy #[id number] Start Date: 08/26/18 Status: [...] 09/12/18 9:26:38 EST, Route to Pharmacy Electronically, [id number], C... Start Date: 09/12/18 Status: OrderedZofran ODT 4 mg oral tablet, disintegrating 1 tablet = 4 mg, By Mouth, 3 times a day, PRN as needed for nausea/vomiting, # 10 tablet, 0 Refills,Soft Stop, 09/13/19 17:42:00 EST, DIS Tablet, [facility]/pharmacy #[id number], 170, cm, 08/27/19 10:56:00 EST, [...]
--- OUTSIDE RECORDS SUMMARY | 2022-08-07 20:04 | XMS_ITS | Continuity of Care Document ---
:1975 Author Organization [facility] Address [address] [place] [address]- Care Team Providers Name Role Phone Christos Britt MD Primary Care Physician [place] [facility] [place]/21 [facility] [address] [place] [address] Attending Physician: AdmPattie campbell Admitting Physician: AdmtrPattie Referring Physician: Admtr, Ar8 Allergies, Adverse Reactions, Alerts Substance Reaction Severity Status lithium bad reaction Active penicillins can't breathe Active Other Food Allergy1 rash Active Vraylar Active TEGretol XR Active Adhesive Bandage adhesive on patches-skin irritations Active LaMICtal rash Active 1artichoke Immunizations Given [...] Refills, Maintenance, Tablet, Route to Pharmacy Electronically, [id number], [facility]/pharmacy #[id number] Start Date: 08/26/18 Status: OrderedclonazePAM 0.5 mg oral tablet 2 [...] II opioid drug. Start Date: 08/11/20 Status: OrderedLantus Solostar Pen 100 units/mL subcutaneous solution = 55 units, Subcutaneous Injection, Daily, # 6 each, 11 Refills, Maintenance, 01/09/21 16:14:00 EDT,Solution, [facility][id number], Partial fill upon patient request if the prescription is for a schedule II opioid drug., 170, cm, 09/04/20 11:1... Start Date: 01/09/21 Stop Date: 01/04/22 Status: OrderedLinzess 145 mcg oral capsule 1 [...] 11 Refills, Maintenance, 01/09/21 16:20:00 EDT, Tablet, [facility] #[id number], Partial fill upon patient request if the prescription is for a schedule II opioid drug., 170, cm, 09/04/20... Start Date: 01/09/21 Stop Date: 01/04/22 Status: Orderedmetoprolol 50 mg oral tablet 50 mg, By Mouth, Daily, for hypertension, # 30 tablet, Refills 1, Tot. Refills 1, Maintenance, 08/26/18 14:50:46 EST, Route to Pharmacy Electronically, [id number], [facility]/pharmacy #[id number] Start Date: 08/26/18 Status: OrderedMyrbetriq 50 mg oral tablet, extended release 1 tablet = 50 mg, By Mouth, Daily, do not crush or chew, # 30 tablet, 0 Refills, Maintenance, 02/12/19 22:15:08 EDT, ER Tablet Start Date: 02/12/19 Status: OrderedOne Touch Fine Point Lancets See Instructions, # 100 each, Refills 11, Tot. Refills 11, Maintenance, ICD: E11.65 CHECK POC0 QID, 01/09/21 16:14:00 EDT, Supply, 170, cm, 09/04/20 11:16:00 EST, Height, 148.8, kg, 09/04/20 11:21:00 EST, Dry Weight Start Date: 01/09/21 Status: OrderedOne Touch Ultra Test Strips See Instructions, # 200 each, Refills 11, Tot. Refills 11, Maintenance, ICD: E11.65 CHECK POC BID, 01/09/21 16:14:00 EDT, Supply, 170, cm, 09/04/20 11:16:00 EST, Height, 148.8, kg, 09/04/20 11:21:00 EST, Dry Weight Start Date: 01/09/21 Stop Date: 01/04/22 Status: OrderedOne Touch UltraSmart Glucose Meter See [...] EC Tablet Start Date: 08/26/18 Status: OrderedPen [place], 29 G x 12.7 mm BD Ultra Fine See Instructions, # 90 each, Refills 4, Tot. Refills 4, Maintenance, use as directed for Type 2 Diabetes Mellitus, 01/09/21 16:14:00 EDT, Supply, 170, cm, 09/04/20 11:16:00 EST, Height, 148.8, kg, 09/04/20 11:21:00 EST, Dry Weight Start Date: 01/09/21 Stop Date: 06/08/21 Status: OrderedTylenol 325 mg oral capsule 2 capsule = 650 mg, By Mouth, Every 4 hours, PRN as needed for pain, not to exceed 4000 mg/day, # 50capsule, 0 Refills, Maintenance, 01/18/20 22:09:00 EDT, Capsule, [id number], 170, cm, 10/02/19 6:28:00 EST, Height, 140.9, kg, 09/27/19 15:50:... Start Date: 01/18/20 Status: Ordered Problem List Condition Effective Dates [...]
--- OUTSIDE RECORDS SUMMARY | 2022-08-07 20:04 | XMS_ITS | Continuity of Care Document ---
:1975 Author Organization [facility] Address [address] [place] [address]- Care Team Providers Name Role Phone Ann-Marie Camacho MD Primary Care [id number] Date[facility] 03/09[facility] - 03/10/[address] [address]- Discharge Disposition: A-D/C Walkout Attending Physician: Not [...] Refills, Maintenance, Tablet, Route to Pharmacy Electronically, [id number], [facility]/pharmacy #[id number] Start Date: 08/26/18 Status: Orderedcetirizine 10 [...] each, 11 Refills, Maintenance, 01/09/21 16:14:00 EDT,Solution, [id number], Partial fill upon patient request if the [...] 11 Refills, Maintenance, 01/09/21 16:20:00 EDT, Tablet, [facility] #[id number], Partial fill upon patient request if the prescription is for a schedule II opioid drug., 170, cm, 09/04/20... Start Date: 01/09/21 Stop Date: 01/04/22 Status: Orderedmetoprolol 50 mg oral tablet 50 mg, By Mouth, Daily, for hypertension, # 30 tablet, Refills 1, Tot. Refills 1, Maintenance, 08/26/18 14:50:46 EST, Route to Pharmacy Electronically, [id number], [facility]/pharmacy #[id number] Start Date: 08/26/18 Status: OrderedMyrbetriq 50 [...] EC Tablet Start Date: 08/26/18 Status: OrderedPen [place], 29 G x 12.7 mm BD Ultra Fine See Instructions, # 90 each, Refills 4, Tot. Refills 4, Maintenance, use as directed for Type 2 Diabetes Mellitus, 01/09/21 16:14:00 EDT, Supply, 170, cm, 09/04/20 11:16:00 EST, Height, 148.8, kg, 09/04/20 11:21:00 EST, Dry Weight Start Date: 01/09/21 Stop Date: 06/08/21 Status: OrderedTrulicity Pen 0.75 mg/0.5 mL subcutaneous solution 0.5 mL = 0.75 mg, Subcutaneous Injection, Every week, # 2.5 mL, 11 Refills, Maintenance, 02/23/21 14:25:00 EDT, Solution, [facility][id number], Partial fill upon patient request if the prescription is for a schedule II opioid drug., 170, cm, 01... Start Date: 02/23/21 Status: OrderedTylenol 325 mg oral capsule 2 capsule = 650 mg, By Mouth, Every 4 hours, PRN as needed for pain, not to exceed 4000 mg/day, # 50capsule, 0 Refills, Maintenance, 01/18/20 22:09:00 EDT, Capsule, [facility]/pharmacy #[id number], 170, cm, 10/02/19 6:28:00 EST, Height, [...] 3 [Reference Range]: Oxygen Saturation [94-100 %] 97 % 97 % 97 % (03/10/21 12:10 AM) (03/09/21 7:09 PM) (03/09/21 6: 53 PM) Pulse Rate [55-90 bpm] 82 bpm 91 bpm 98 bpm (03/10/21 12:10 AM) *H* *H* (03/09/21 7:09 PM) (03/09/21 6:53 PM) Blood Pressure [90-138/55-84 124/74 mm Hg 134/74 mm Hg mm Hg] (03/10/21 12:10 AM) (03/09/21 7:09 PM) Respiratory Rate [16-30 18 br/min 19 br/min br/min] (03/10/21 12:10 AM) (03/09/21 7:09 PM) Temperature [96.8-100.4 DegF] 97.8 DegF 99.3 DegF (03/10/21 12:10 AM) (03/09/21 7:09 PM) Mode of Delivery (Oxygen) Room air Room air Room a ir (03/10/21 12:10 AM) (03/09/21 7:09 PM) (03/09/21 6: 53 PM) Blood pressure sites Arm, right Arm, left (03/10/21 12:10 AM) (03/09/21 7:09 PM) Temperature Route Oral Oral (03/10/21 12:10 AM) (03/09/21 7:09 PM) Social History Social History Type Response Smoking Status Current every day smoker; To bacco user in household: Yes entered on: 05/27/14 Sex
--- OUTSIDE RECORDS SUMMARY | 2022-08-07 20:04 | XMS_ITS | Continuity of Care Document ---
:1975 Author Organization [facility] Address [address] [place] [address]- Care Team Providers Name Role Phone Not on Staff, PCP Primary Care Physician Unavailable Encounter [facility] [place] Date[place]s): 02/23/21 - 03/25/21 [facility] [address] [place] [id number] Attending Physician: Pattie Todd Admitting Physician: Pattie Todd Referring Physician: Pattie Todd Allergies, Adverse Reactions, Alerts Substance Reaction Severity [...] Refills, Maintenance, Tablet, Route to Pharmacy Electronically, [id number], [facility]/pharmacy #[id number] Start Date: 08/26/18 Status: Orderedcetirizine [...] 11 Refills, Maintenance, 01/09/21 16:20:00 EDT, Tablet, [facility][id number], Partial fill upon patient request if the prescription is for a schedule II opioid drug., 170, cm, 09/04/20... Start Date: 01/09/21 Stop Date: 01/04/22 Status: Orderedmetoprolol 50 mg oral tablet 50 mg, By Mouth, Daily, for hypertension, # 30 tablet, Refills 1, Tot. Refills 1, Maintenance, 08/26/18 14:50:46 EST, Route to Pharmacy Electronically, [id number], [facility]/pharmacy #[id number] Start Date: 08/26/18 Status: OrderedMyrbetriq [...] EC Tablet Start Date: 08/26/18 Status: OrderedPen [place], 29 G x 12.7 mm BD Ultra [...]
--- OUTSIDE RECORDS SUMMARY | 2022-08-07 20:04 | XMS_ITS | Continuity of Care Document ---
:1975 Author Organization [facility] Address [address] [place] [address]- Care Team Providers Name Role Phone Christos Britt MD Primary Care Physician [place] [facility] [place] - 08/12/[address] [address]- Discharge Disposition: A-D/C Walkout Attending Physician: Not [...] Refills, Maintenance, Tablet, Route to Pharmacy Electronically, [id number], [facility]/pharmacy #[id number] Start Date: 08/26/18 Status: Orderedbrexpiprazole [...] 10/02/19 14:03:00 EST, Route to Pharmacy Electronically, [facility], 170, cm, 10/02/19 6:28:00 EST, Height, [...] 22:09:00 EDT, Route to Pharmacy Electronically, [facility]/pharmacy #[id number], 170, cm, 10/02/19 6:28:00... Start [...] 08/26/18 14:50:46 EST, Route to Pharmacy Electronically, [id number], [facility]/pharmacy #[id number] Start Date: 08/26/18 Status: OrderedMyrbetriq [...] 22:09:00 EDT, Route to Pharmacy Electronically, [facility]/pharmacy #[id number], Partial fill upon patient request, [...] 09/12/18 9:26:38 EST, Route to Pharmacy Electronically, [id number], C... Start Date: 09/12/18 Status: OrderedTylenol 325 mg oral capsule 2 capsule = 650 mg, By Mouth, Every 4 hours, PRN as needed for pain, not to exceed 4000 mg/day, # 50capsule, 0 Refills, Maintenance, 01/18/20 22:09:00 EDT, Capsule, [facility]/pharmacy #[id number], 170, cm, 10/02/19 6:28:00 EST, Height, 140.9, kg, 09/27/19 15:50:... Start Date: 01/18/20 Status: OrderedZofran 4 mg oral tablet 1 tablet = 4 mg, By Mouth, Every 8 hours, PRN Vomiting, # 10 tablet, 0 Refills, Maintenance, 01/18/20 22:09:00 EDT, Tablet, [facility]/pharmacy #[id number], 170, cm, 10/02/19 6:28:00 EST, Height, 140.9, kg, 09/27/19 15:50:00 EST, Dry Weight Start Date: 01/18/20 Status: OrderedZofran ODT 4 mg oral tablet, disintegrating 1 tablet = 4 mg, By Mouth, 3 times a day, PRN as needed for nausea/vomiting, # 10 tablet, 0 Refills,Soft Stop, 09/13/19 17:42:00 EST, DIS Tablet, [facility]/pharmacy #[id number], 170, cm, 08/27/19 10:56:00 EST, [...] 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 FINDINGS: LINES AND TUBES: None. LUNGS AND PLEURA: Clear lungs. Normal pulmonary vascularity. No pleural effusion. No pneumothorax. HEART, MEDIASTINUM AND RAMON: Heart is normal in size. Normal upper mediastinal and hilar contour. BONES AND SOFT TISSUES: No acute abnormality. IMPRESSION: No acute abnormality. WSN: [id number] Ordering Physician: Roxana Hannah Dictated By: Tee Schaffer MD Dictated Date/Time: 08/11/20 7:51 pm Reviewed By: Tee Schaffer MD Signed By: Tee Schaffer MD Signed Date/Time: 08/11/20 7:51 pm Transcribed By: GUSTAVO Transcribed Date/Time: 08/11/20 7:50 pm Vital Signs Most recent to oldest [Reference Range]: 1 2 Oxygen Saturation [94-100 %] 97 % 100 % (08/11/20 10:26 PM) (08/11/20 6:54 PM) Pulse Rate [55-90 bpm] 84 bpm 80 bpm (08/11/20 10:26 PM) (08/11/20 6:54 PM) Blood Pressure [90-138/55-84 mm Hg] 133/88 mm Hg 137/ 80 mm Hg (08/11/20 10:26 PM) (08/11/20 6:54 PM) Respiratory Rate [16-30 br/min] 19 br/min 16 br/mi n (08/11/20 10:26 PM) (08/11/20 6:54 PM) Temperature [96.8-100.4 DegF] 98.5 DegF 98.2 DegF (08/11/20 10:26 PM) (08/11/20 6:54 PM) Mode of Delivery (Oxygen) Room air Room air (08/11/20 10:26 PM) (08/11/20 6:54 PM) Blood pressure sites Arm, right Arm, left (08/11/20 10:26 PM) (08/11/20 6:54 PM) Temperature Route Oral Oral (08/11/20 10:26 PM) (08/11/20 6:54 PM) Social History Social History Type Response Smoking Status Current every day smoker; To bacco user in household: Yes entered on: 05/27/14 Sex
--- OUTSIDE RECORDS SUMMARY | 2022-08-07 20:04 | XMS_ITS | Continuity of Care Document ---
:1975 Author Organization [facility] Address [address] [place] [address]- Care Team Providers Name Role Phone Harley BARBER, Pari Gillespie Primary Care Physician Encounter [facility] Date(s): 09/14/19 - 09/14/[address] [address]- [facility] Discharge Disposition: A-D/C Home Attending Physician: Mira Green MD Admitting Physician: Mira Green MD Referring Physician: Not on Staff, Referring [...] 02/11/19 15:56:27 EDT, Route to Pharmacy Electronically, [id number], [facility] Start Date: 02/11/19 Stop Date: 03/13/19 Status: Orderedatorvastatin 20 mg oral tablet = 20 mg, By Mouth, Daily at bedtime, for hyperlipidemia, # 30 tablet, 1 Refills, Maintenance, Tablet, Route to Pharmacy Electronically, [id number], [facility]/pharmacy #[id number] Start Date: 08/26/18 Status: Orderedbrexpiprazole 4 mg oral tablet 1 tablet = 4 mg, By Mouth, Daily, # 30 tablet, 0 Refills, Maintenance, 01/13/19 12:00:29 EDT, Tablet Start Date: 01/13/19 Status: Ordereddicyclomine 10 mg oral capsule 1 capsule = 10 mg, By Mouth, 4 times a day, PRN Nausea & Vomiting, # 28 capsule, 0 Refills, Maintenance, 09/14/19 18:18:00 EST, Capsule, [facility]/pharmacy #[id number], 170, cm, 08/27/19 10:56:00 EST, Height, 140.5, kg, 09/14/19 12:09:00 EST, Dry Weight Start Date: 09/14/19 Stop Date: 09/21/19 Status: Orderedlisinopril 40 mg oral tablet 1 [...] 08/26/18 14:50:46 EST, Route to Pharmacy Electronically, [id number], [facility]/pharmacy #[id number] Start Date: 08/26/18 Status: OrderedMultivitamin Tablet [...] 09/12/18 9:26:38 EST, Route to Pharmacy Electronically, [id number], C... Start Date: 09/12/18 Status: OrderedZofran ODT 4 mg oral tablet, disintegrating 1 tablet = 4 mg, By Mouth, 3 times a day, PRN as needed for nausea/vomiting, # 10 tablet, 0 Refills,Soft Stop, 09/13/19 17:42:00 EST, DIS Tablet, [facility]/pharmacy #[id number], 170, cm, 08/27/19 10:56:00 EST, Height, [...] to oldest 1 2 3 [Reference Range]: Weight 140.5 kg 140.5 kg 140.5 kg (09/14/19 7:25 PM) (09/14/19 12:09 PM) (09/14/19 11 :57 AM) Oxygen Saturation [94-100 %] 98 % 99 % 100 % (09/14/19 7:25 PM) (09/14/19 11:57 AM) (09/14/19 11 :51 AM) Pulse Rate [55-90 bpm] 73 bpm 96 bpm 83 bpm (09/14/19 7:25 PM) *H* (09/14/19 11:51 AM) (09/14/19 11:57 AM) Blood Pressure [90-138/55-84 119/81 mm Hg 166/94 mm Hg mm Hg] (09/14/19 7:25 PM) *H* (09/14/19 11:57 AM) Respiratory Rate [16-30 20 br/min 24 br/min br/min] (09/14/19 7:25 PM) (09/14/19 11:57 AM) Temperature [96.8-100.4 98.4 DegF 98.7 DegF DegF] (09/14/19 7:25 PM) (09/14/19 11:57 AM) Mode of Delivery (Oxygen) Room air Room air Room a ir (09/14/19 7:25 PM) (09/14/19 11:57 AM) (09/14/19 11 :51 AM) Blood pressure sites Arm, left Arm, right (09/14/19 7:25 PM) (09/14/19 11:57 AM) Temperature Route Oral Oral (09/14/19 7:25 PM) (09/14/19 11:57 AM) Dry Weight 140.5 kg 140.5 kg 140.5 kg (09/14/19 7:25 PM) (09/14/19 12:09 PM) (09/14/19 11 :57 AM) Dry Weight Obtained Via Standing scale (09/14/19 11:57 AM) Social History Social History Type Response Smoking Status Current every day smoker; To bacco user in household: Yes entered on: 05/27/14 Sex
--- OUTSIDE RECORDS SUMMARY | 2022-08-07 20:05 | XMS_ITS | Continuity of Care Document ---
:1975 Author Organization [facility] Address [address] [place] [address]- Care Team Providers Name Role Phone Harley BARBER, Pari Gillespie Primary Care Physician Encounter [facility] Date(s): 09/20/19 - 09/21/[address] [address]- [facility] Encounter Diagnosis Abdominal pain in female (Final) - 09/21/19 Discharge Disposition: A-D/C Home Attending Physician: Carlo Del Toro MD Admitting Physician: Carlo Del Toro MD Referring Physician: Not on Staff, Referring [...] 02/11/19 15:56:27 EDT, Route to Pharmacy Electronically, [id number], [facility] Start Date: 02/11/19 Stop Date: 03/13/19 Status: Orderedatorvastatin 20 mg oral tablet = 20 mg, By Mouth, Daily at bedtime, for hyperlipidemia, # 30 tablet, 1 Refills, Maintenance, Tablet, Route to Pharmacy Electronically, [id number], [facility]/pharmacy #[id number] Start Date: 08/26/18 [...] 0 Refills, Maintenance, 09/14/19 18:18:00 EST, Capsule, [facility]/pharmacy #[id number], 170, cm, 08/27/19 10:56:00 EST, Height, 140.5, kg, 09/14/19 12:09:00 EST, Dry Weight Start Date: 09/14/19 Stop Date: 09/21/19 Status: Orderedibuprofen 400 mg oral tablet 400 mg, 1, tablet, By Mouth, Every 8 hours, PRN, for 7 days, # 50 tablet, Refills 0, Tot. Refills 0,Acute 09/28/19 3:45:00 EST, Pain , Moderate, 09/21/19 3:45:00 EST, Route to Pharmacy Electronically,[facility]/pharmacy #[id number], 170, cm, 08/27/19 10:56:00 ES... Start Date: 09/21/19 Stop Date: 09/28/19 Status: Orderedlisinopril 40 mg oral tablet 1 [...] 08/26/18 14:50:46 EST, Route to Pharmacy Electronically, [id number], [facility]/pharmacy #[id number] Start Date: 08/26/18 Status: OrderedMultivitamin Tablet [...] 09/12/18 9:26:38 EST, Route to Pharmacy Electronically, [id number], C... Start Date: 09/12/18 Status: OrderedZofran ODT [...] Range]: Oxygen Saturation [94-100 %] 98 % 99 % 99 % (09/21/19 4:00 AM) (09/20/19 11:11 PM) (09/20/19 10 :13 PM) Pulse Rate [55-90 bpm] 81 bpm 77 bpm 72 bpm (09/21/19 4:00 AM) (09/20/19 11:11 PM) (09/20/19 10 :13 PM) Blood Pressure [90-138/55-84 107/62 mm Hg 132/83 mm Hg 149 /75 mm Hg mm Hg] (09/21/19 4:00 AM) (09/20/19 11:11 PM) *H* (09/20/19 10:13 P M) Respiratory Rate [16-30 16 br/min 18 br/min 16 br/mi n br/min] (09/21/19 4:00 AM) (09/21/19 12:45 AM) (09/21/19 12 :02 AM) Temperature [96.8-100.4 DegF] 98.2 DegF 97.9 DegF 97 .8 DegF (09/21/19 4:00 AM) (09/20/19 11:11 PM) (09/20/19 10 :13 PM) Mode of Delivery (Oxygen) Room air Room air Room a ir (09/21/19 4:00 AM) (09/20/19 11:11 PM) (09/20/19 10 :13 PM) Blood pressure sites Arm, left Arm, left Arm, right (09/21/19 4:00 AM) (09/20/19 11:11 PM) (09/20/19 10 :13 PM) Temperature Route Oral Oral Oral (09/21/19 4:00 AM) (09/20/19 11:11 PM) (09/20/19 10 :13 PM) Social History Social History Type Response Smoking Status Current every day smoker; To bacco user in household: Yes entered on: 05/27/14 Sex
--- OUTSIDE RECORDS SUMMARY | 2022-08-07 20:05 | XMS_ITS | Continuity of Care Document ---
:1975 Author Organization [facility] Address [address] [place] [address]- Care Team Providers Name Role Phone Not on Staff, PCP Primary Care Physician Unavailable Encounter [facility] [place] Date(s): 03/09/21 - 04/08/21 [facility] [address] [place] [address]- Attending Physician: Pattie Todd Admitting Physician: AdmPattie campbell Referring Physician: Pattie Todd Allergies, Adverse Reactions, [...] Refills, Maintenance, Tablet, Route to Pharmacy Electronically, [id number], [facility]/pharmacy #[id number] Start Date: 08/26/18 Status: Orderedcetirizine [...] II opioid drug. Start Date: 08/11/20 Status: OrderedLidoderm 5% film 1 patch, Topically, Daily, remove patches after 12 hours, # 30 patch, 0 Refills, Maintenance, 04/08/21 23:31:00 EDT, [facility] #[id number], Partial fill upon patient request if the [...] 11 Refills, Maintenance, 01/09/21 16:20:00 EDT, Tablet, [facility] #[id number], Partial fill upon patient request if the prescription is for a schedule II opioid drug., 170, cm, 09/04/20... Start Date: 01/09/21 Stop Date: 01/04/22 Status: Orderedmetoprolol 50 mg oral tablet 50 mg, By Mouth, Daily, for hypertension, # 30 tablet, Refills 1, Tot. Refills 1, Maintenance, 08/26/18 14:50:46 EST, Route to Pharmacy Electronically, [id number], [facility]/pharmacy #[id number] Start Date: 08/26/18 Status: OrderedMyrbetriq [...] 0 Refills, Maintenance, 04/08/21 23:31:00 EDT, Tablet, [facility] #[id number], Partial fill upon patient request, 1 tablet [...] kg, 09/04/20... Start Date: 03/08/21 Stop Date: 5/10/22 Status: OrderedOne Touch UltraSmart Glucose Meter See [...] EC Tablet Start Date: 08/26/18 Status: OrderedPen [place], 29 G x 12.7 mm BD Ultra [...] tablet, 0 Refills,Maintenance, 04/03/21 17:35:00 EDT, Tablet, [facility] #[id number], Partial fill upon patient request if the [...]
--- OUTSIDE RECORDS SUMMARY | 2022-08-07 20:05 | XMS_ITS | Continuity of Care Document ---
:1975 Author Organization [facility] Address [address] [place] [address]- Care Team Providers Name Role Phone Harley BARBER, Pari Gillespie Primary Care Physician Encounter [facility] Date(s): 09/02/19 - 09/12/19 [facility] [address] [place], [place] [id number]- [facility] Attending Physician: Pattie Todd Admitting Physician: Pattie [...] 02/11/19 15:56:27 EDT, Route to Pharmacy Electronically, [id number], [facility] Start Date: 02/11/19 Stop Date: 03/13/19 Status: Orderedatorvastatin 20 mg oral tablet = 20 mg, By Mouth, Daily at bedtime, for hyperlipidemia, # 30 tablet, 1 Refills, Maintenance, Tablet, Route to Pharmacy Electronically, [id number], [facility]/pharmacy #[id number] Start Date: 08/26/18 Status: Orderedbrexpiprazole 4 [...] 08/26/18 14:50:46 EST, Route to Pharmacy Electronically, [id number], [facility]/pharmacy #[id number] Start Date: 08/26/18 Status: OrderedMultivitamin Tablet [...] 09/12/18 9:26:38 EST, Route to Pharmacy Electronically, [id number], C... Start Date: 09/12/18 Status: Ordered Problem [...]
--- OUTSIDE RECORDS SUMMARY | 2022-08-07 20:05 | XMS_ITS | Continuity of Care Document ---
:1975 Author Organization [facility] Address [address] [place] [address]- Care Team Providers Name Role Phone Ann-Marie Camacho MD Primary Care Physician Encounter [facility] [place] Date(s): 11/28/21 - 12/28/21 [facility] [address] [place] [address] Allergies, Adverse Reactions, Alerts Substance Reaction Severity Status lithium bad reaction Active penicillins can't breathe Active Vraylar Active TEGretol XR Active Adhesive [...] Refills, Maintenance, Tablet, Route to Pharmacy Electronically, [id number], [facility]/pharmacy #[id number] Start Date: 08/26/18 Status: Orderedcetirizine [...] patch, 0 Refills, Maintenance, 04/08/21 23:31:00 EDT, [facility][id number], Partial fill upon patient request if the [...] 11 Refills, Maintenance, 01/09/21 16:20:00 EDT, Tablet, [facility][id number], Partial fill upon patient request if the prescription is for a schedule II opioid drug., 170, cm, 09/04/20... Start Date: 01/09/21 Stop Date: 01/04/22 Status: Orderedmetoprolol 50 mg oral tablet 50 mg, By Mouth, Daily, for hypertension, # 30 tablet, Refills 1, Tot. Refills 1, Maintenance, 08/26/18 14:50:46 EST, Route to Pharmacy Electronically, [id number], [facility]/pharmacy #[id number] Start Date: 08/26/18 Status: OrderedMyrbetriq [...] 0 Refills, Maintenance, 04/08/21 23:31:00 EDT, Tablet, [facility] #[id number], Partial fill upon patient request, 1 tablet [...] EC Tablet Start Date: 08/26/18 Status: OrderedPen [place], 29 G x 12.7 mm BD Ultra [...] tablet, 0 Refills,Maintenance, 04/03/21 17:35:00 EDT, Tablet, [facility] #[id number], Partial fill upon patient request if the [...]
--- OUTSIDE RECORDS SUMMARY | 2022-08-07 20:05 | XMS_ITS | Continuity of Care Document ---
:1975 Author Organization [facility] Address [address], [address], [address] [place] [address]- Care Team Providers Name Role Phone Ann-Marie Camacho MD Primary Care Physician [place] [facility] Date(s): 05/29/22 - 06/28/22 [facility] [address], [address], [address] [place] [address] Allergies, Adverse Reactions, Alerts Substance Reaction [...] tablet, 0 Refills, Maintenance, 01/29/22 23:00:00 EDT, [facility] #[id number], Partial fill upon patient request if the prescription is for a schedule II opioid drug., 170, c... Start Date: 01/29/22 Stop Date: 02/05/22 Status: Orderedatorvastatin 20 mg oral tablet = 20 mg, By Mouth, Daily at bedtime, for hyperlipidemia, # 30 tablet, 1 Refills, Maintenance, Tablet, Route to Pharmacy Electronically, [id number], [facility]acy #[id number] Start Date: 08/26/18 Status: Orderedcetirizine 10 [...] patch, 0 Refills, Maintenance, 04/08/21 23:31:00 EDT, [facility][id number], Partial fill upon patient request if the [...] 11 Refills, Maintenance, 01/09/21 16:20:00 EDT, Tablet, [facility] #[id number], Partial fill upon patient request if the prescription is for a schedule II opioid drug., 170, cm, 09/04/20... Start Date: 01/09/21 Stop Date: 01/04/22 Status: Orderedmetoprolol 50 mg oral tablet 50 mg, By Mouth, Daily, for hypertension, # 30 tablet, Refills 1, Tot. Refills 1, Maintenance, 08/26/18 14:50:46 EST, Route to Pharmacy Electronically, [id number], [facility]/pharmacy #[id number] Start Date: 08/26/18 Status: OrderedMyrbetriq 50 [...] 3 Refills, Maintenance, 06/05/22 8:56:00 EDT, Tablet, [facility] #[id number], Partial fill upon patient request if the prescription is for... Start Date: 06/05/22 Status: OrderedNorco 325 mg-5 mg oral tablet 1 tablet, By Mouth, Every 4 hours, PRN for pain, partial fill at patient request, # 10 tablet, 0 Refills, Maintenance, 04/08/21 23:31:00 EDT, Tablet, [facility] #[id number], Partial fill upon patient request, 1 tablet [...] EC Tablet Start Date: 08/26/18 Status: OrderedPen [place], 29 G x 12.7 mm BD Ultra [...] tablet, 0 Refills,Maintenance, 04/03/21 17:35:00 EDT, Tablet, [facility] #[id number], Partial fill upon patient request if the [...] on: 05/27/14 Sex Patient Care team information PersonnelName: Janice FOUNTAIN , Ann-Marie Address: Address: [address] [place] [id number]
--- OUTSIDE RECORDS SUMMARY | 2022-08-07 20:05 | XMS_ITS | Continuity of Care Document ---
:1975 Author Organization [facility] Address [address] [place] [address]- Care Team Providers Name Role Phone Christos Britt MD Primary Care Physician [facility] [facility] Date(s): 12/27/20 - 12/29/[address] [address] Encounter Diagnosis Hypertension (Final) - 12/27/20 Hyperlipidemia (Final) - 12/27/20 Obesity (Final) - 12/27/20 Diabetes (Final) - 12/27/20 Family history of coronary artery disease in father (Final) - 12/27/20 Family history of myocardial infarction in first degree male relative (Final) - 12/27/20 Discharge Disposition: A-D/C Home Attending Physician: Sapna Escamilla MD Admitting Physician: James Dunbar MD Referring Physician: Not on Staff, Referring [...] Refills, Maintenance, Tablet, Route to Pharmacy Electronically, [id number], [facility]/pharmacy #[id number] Start Date: 08/26/18 Status: [...] II opioid drug. Start Date: 08/11/20 Status: OrderedFreestyle Lancets See Instructions, # 200 each, Refills 0, Tot. Refills 0, Maintenance, use as directed for Type 2 Diabetes Mellitus CHECK POC BID ICD: E11.65, 12/29/20 11:07:00 EDT, Supply, 170, cm, 09/04/20 11:16:00 EST, Height, 148.8, kg, 09/04/20 11:21:00 EST, . Start Date: 12/29/20 Stop Date: 01/28/21 Status: OrderedFreestyle Lite Monitor See Instructions, # 1 each, Refills 0, Tot. Refills 0, Maintenance, use as directed for Type 2 Diabetes Mellitus, 12/29/20 10:21:00 EDT, Supply, 170, cm, 09/04/20 11:16:00 EST, Height, 148.8, kg, 09/04/20 11:21:00 EST, Dry Weight Start Date: 12/29/20 Stop Date: 01/28/21 Status: OrderedFreestyle Lite Test Strips See Instructions, # 200 each, Refills 2, Tot. Refills 2, Maintenance, use as directed for Type 2 Diabetes Mellitus check POC BID ICD 10>E11.65, 12/29/20 11:02:00 EDT, Supply, 170, cm, 09/04/20 11:16:00 EST, Height, 148.8, kg, 09/04/20 11:21:00 EST,... Start Date: 12/29/20 Stop Date: 03/29/21 Status: OrderedLantus Solostar Pen 100 units/mL subcutaneous solution = 55 units, Subcutaneous Injection, Daily, # 6 mL, 0 Refills, Maintenance, 12/29/20 10:20:00 EDT, Solution, [facility], Partial fill upon patient request if the prescription is for a schedule II opioid drug., 170, cm, 09/04/20 11:16:00 E... Start Date: 12/29/20 Stop Date: 01/28/21 Status: OrderedLinzess 145 mcg oral capsule 1 capsule = 145 mcg, By Mouth, Daily, # 30 capsule, 0 Refills, Maintenance, 12/27/20 22:27:00 EDT, Capsule, Partial fill upon patient request if the prescription is for a schedule II opioid drug. Start Date: 12/27/20 Status: Orderedlisinopril 20 mg oral tablet 40 mg, Tablet, By Mouth, 12/29/20 9:00:00 EDT Start Date: 12/29/20 Stop Date: 12/29/20 Status: Completedlisinopril 40 mg oral tablet 1 tablet = 40 mg, By Mouth, Daily, for hypertension, # 30 tablet, 1 Refills, Maintenance, 08/26/18 14:49:37 EST, Tablet Start Date: 08/26/18 Status: OrderedmetFORMIN 1000 mg oral tablet 1 tablet = 1,000 mg, By Mouth, 2 times a day, # 60 tablet, 0 Refills, Maintenance, 12/29/20 10:19:00EDT, Tablet, [facility], Partial fill upon patient request if the prescription is for a schedule II opioid drug., 170, cm, 09/04/20 11:1... Start Date: 12/29/20 Stop Date: 01/28/21 Status: Orderedmetoprolol 50 mg oral tablet 50 mg, By Mouth, Daily, for hypertension, # 30 tablet, Refills 1, Tot. Refills 1, Maintenance, 08/26/18 14:50:46 EST, Route to Pharmacy Electronically, [id number], [facility]/pharmacy #[id number] Start Date: 08/26/18 Status: Orderedmetoprolol 50 mg oral tablet, extended release 50 mg, XL Tablet, By Mouth, 12/29/20 9:00:00 EDT Start Date: 12/29/20 Stop Date: 12/29/20 Status: CompletedMyrbetriq 50 mg oral tablet, extended release 1 tablet = 50 mg, By Mouth, Daily, do not crush or chew, # 30 tablet, 0 Refills, Maintenance, 02/12/19 22:15:08 EDT, ER Tablet Start Date: 02/12/19 Status: OrderedOne Touch Fine Point Lancets See Instructions, # 100 each, Refills 5, Tot. Refills 5, Maintenance, ICD: E11.65 CHECK POC BID, 12/29/20 17:31:00 EDT, Supply, 170, cm, 09/04/20 11:16:00 EST, Height, 148.8, kg, 09/04/20 11:21:00 EST,Dry Weight Start Date: 12/29/20 Status: OrderedOne Touch Ultra Test Strips See Instructions, # 200 each, Refills 5, Tot. Refills 5, Maintenance, ICD: E11.65 CHECK POC BID, 12/29/20 17:30:00 EDT, Supply, 170, cm, 09/04/20 11:16:00 EST, Height, 148.8, kg, 09/04/20 11:21:00 EST,Dry Weight Start Date: 12/29/20 Stop Date: 06/27/21 Status: OrderedOne Touch UltraSmart Glucose Meter See Instructions, # 1 each, Maintenance, ICD: E11.65 CHECK POC BID, 12/29/20 17:30:00 EDT, Supply, 170, cm, 09/04/20 11:16:00 EST, Height, 148.8, kg, 09/04/20 11:21:00 EST, Dry Weight Start Date: 12/29/20 Status: Orderedpantoprazole 40 mg oral delayed release tablet = 40 mg, By Mouth, 2 times a day, for acid reflux, # 30 tablet, 1 Refills, Maintenance, 08/26/18 14:51:11 EST, EC Tablet Start Date: 08/26/18 Status: OrderedPen [place], 29 G x 12.7 mm BD Ultra Fine See Instructions, # 100 each, Refills 0, Tot. 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 LUNGS AND PLEURA: Clear lungs. Normal pulmonary vascularity. No pleural effusion. No pneumothorax. HEART, MEDIASTINUM AND RAMON: Heart is normal in size. Normal upper mediastinal and hilar contour. BONES AND SOFT TISSUES: No acute abnormality. IMPRESSION: No radiographic evidence of acute cardiopulmonary disease. WSN: [id number] Ordering Physician: Sherie Guardado Dictated By: Yina Perez MD Dictated Date/Time: 12/27/20 6:30 pm Reviewed By: Yina Perez MD Signed By: Yina Perez MD Signed Date/Time: 12/27/20 6:30 pm Transcribed By: GUSTAVO Transcribed Date/Time: 12/27/20 6:29 pm Vital Signs Most recent to oldest [Reference 1 2 3 Range]: Weight 132.4 kg (12/27/20 10:10 PM) Oxygen Saturation [94-100 %] 82 % 97 % 96 % *L* (12/29/20 2:41 AM) (12/28/20 11:45 P M) (12/29/20 7:22 AM) Pulse Rate [55-90 bpm] 94 bpm 94 bpm 72 bpm *H* *H* (12/29/20 2:41 AM) (12/29/20 9:17 AM) (12/29/20 7:22 AM) Blood Pressure [90-138/55-84 mm 116/64 mm Hg 116/64 mm Hg 116/64 mm Hg Hg] (12/29/20 9:17 AM) (12/29/20 9:17 AM) (12/29/20 7:22 A M) Respiratory Rate [16-30 br/min] 18 br/min 18 br/min 18 br/min (12/29/20 9:57 AM) (12/29/20 7:22 AM) (12/29/20 2:41 A M) Temperature [96.8-100.4 DegF] 97.5 DegF 97.9 DegF 98 .6 DegF (12/29/20 7:22 AM) (12/29/20 2:41 AM) (12/28/20 10:51 PM) Mode of Delivery (Oxygen) Room air CPAP CPAP (12/29/20 7:22 AM) (12/29/20 2:41 AM) (12/28/20 10:51 PM) Blood pressure sites Arm, right Arm, left Arm, left (12/29/20 7:22 AM) (12/29/20 2:41 AM) (12/28/20 10:51 PM) Temperature Route Oral Oral Oral (12/29/20 7:22 AM) (12/29/20 2:41 AM) (12/28/20 10:51 PM) Weight Obtained Via Bed scale (12/27/20 10:10 PM) Social History Social History Type Response Smoking Status Current every day smoker; To bacco user in household: Yes entered on: 05/27/14 Sex
--- OUTSIDE RECORDS SUMMARY | 2022-08-07 20:05 | XMS_ITS | Continuity of Care Document ---
:1975 Author Organization [facility] Address [address] [place] [address]- Care Team Providers Name Role Phone Harley BARBER, Pari Gillespie Primary Care Physician Encounter [facility] Date(s): 06/15/19 - 09/03/19 [facility] [address] [place] [address] Attending Physician: Simba Cordova MD Admitting Physician: Simba Cordova MD Referring Physician: Christos Britt MD Allergies, [...] 02/11/19 15:56:27 EDT, Route to Pharmacy Electronically, [id number], [facility] Start Date: 02/11/19 Stop Date: 03/13/19 Status: Orderedatorvastatin 20 mg oral tablet = 20 mg, By Mouth, Daily at bedtime, for hyperlipidemia, # 30 tablet, 1 Refills, Maintenance, Tablet, Route to Pharmacy Electronically, [id number], [facility]/pharmacy #[id number] Start Date: 08/26/18 Status: Orderedbrexpiprazole [...] 08/26/18 14:50:46 EST, Route to Pharmacy Electronically, [id number], [facility]/pharmacy #[id number] Start Date: 08/26/18 Status: OrderedMultivitamin [...] 09/12/18 9:26:38 EST, Route to Pharmacy Electronically, [id number], [facility]... Start Date: 09/12/18 Status: Ordered Problem [...]
--- OUTSIDE RECORDS SUMMARY | 2022-08-07 20:05 | XMS_ITS | Continuity of Care Document ---
:1975 Author Organization [facility] Address [address] [place] [address]- Care Team Providers Name Role Phone Lorenza FOUNTAIN, Christos Baron Primary Care Physician Encounter [facility] [place] Date(s): 02/03/20 - 02/03/[address] [address]- [facility] Encounter Diagnosis Right calf pain (Final) - 02/03/20 Discharge Disposition: A-D/C Home Attending Physician: Roe Flaherty DO Admitting Physician: Roe Flaherty DO Referring Physician: Not on Staff, Referring MD [...] Refills, Maintenance, Tablet, Route to Pharmacy Electronically, [id number], [facility]pharmacy #[id number] Start Date: 08/26/18 Status: Orderedbrexpiprazole 4 [...] 10/02/19 14:03:00 EST, Route to Pharmacy Electronically, [facility], 170, cm, 10/02/19 6:28:00 EST, Height, 140.9, k... Start Date: 10/02/19 Stop Date: 11/01/19 Status: Ordereddicyclomine 10 mg oral capsule 1 capsule = 10 mg, By Mouth, 4 times a day, PRN Nausea & Vomiting, # 28 capsule, 0 Refills, Maintenance, 10/02/19 14:02:00 EST, Capsule, [facility], 170, cm, 10/02/19 6:28:00 EST, Height, 140.9, kg, 09/27/19 15:50:00 EST, Dry Weight Start Date: 10/02/19 Stop Date: 10/09/19 Status: Orderedibuprofen 400 mg oral tablet 400 mg, 1, tablet, By Mouth, Every 8 hours, PRN, not to exceed 3200 mg/day, # 30 tablet, Refills 0, Tot. Refills 0, Maintenance, as needed for pain, 01/18/20 22:09:00 EDT, Route to Pharmacy Electronically, [facility]/pharmacy #[id number], 170, cm, 10/02/19 6:28:00... Start Date: [...] 08/26/18 14:50:46 EST, Route to Pharmacy Electronically, [id number], [facility]/pharmacy #[id number] Start Date: 08/26/18 Status: OrderedMultivitamin Tablet [...] 01/18/20 22:09:00 EDT, Route to Pharmacy Electronically, [facility]/pharmacy #[id number], Partial fill upon patient request, 170, [...] 09/12/18 9:26:38 EST, Route to Pharmacy Electronically, [id number], C... Start Date: 09/12/18 Status: OrderedTylenol 325 mg oral capsule 2 capsule = 650 mg, By Mouth, Every 4 hours, PRN as needed for pain, not to exceed 4000 mg/day, # 50capsule, 0 Refills, Maintenance, 01/18/20 22:09:00 EDT, Capsule, [facility]/pharmacy #[id number], 170, cm, 10/02/19 6:28:00 EST, Height, 140.9, kg, 09/27/19 15:50:... Start Date: 01/18/20 Status: OrderedZofran 4 mg oral tablet 1 tablet = 4 mg, By Mouth, Every 8 hours, PRN Vomiting, # 10 tablet, 0 Refills, Maintenance, 01/18/20 22:09:00 EDT, Tablet, [facility]/pharmacy #[id number], 170, cm, 10/02/19 6:28:00 EST, Height, 140.9, kg, 09/27/19 15:50:00 EST, Dry Weight Start Date: 01/18/20 Status: OrderedZofran ODT 4 mg oral tablet, disintegrating 1 tablet = 4 mg, By Mouth, 3 times a day, PRN as needed for nausea/vomiting, # 10 tablet, 0 Refills,Soft Stop, 09/13/19 17:42:00 EST, DIS Tablet, [facility]/pharmacy #[id number], 170, cm, 08/27/19 10:56:00 EST, Height, [...] 3 [Reference Range]: Oxygen Saturation [94-100 %] 99 % 98 % 97 % (02/03/20 6:24 PM) (02/03/20 3:56 PM) (02/03/20 12: 58 PM) Pulse Rate [55-90 bpm] 70 bpm 77 bpm 58 bpm (02/03/20 6:24 PM) (02/03/20 3:56 PM) (02/03/20 12: 58 PM) Blood Pressure [90-138/55-84 157/99 mm Hg 176/90 mm Hg 180 /67 mm Hg mm Hg] *H* *H* *H* (02/03/20 6:24 PM) (02/03/20 3:56 PM) (02/03/20 12: 58 PM) Respiratory Rate [16-30 16 br/min 18 br/min 20 br/mi n br/min] (02/03/20 6:24 PM) (02/03/20 3:56 PM) (02/03/20 12: 58 PM) Temperature [96.8-100.4 DegF] 98.7 DegF 98.1 DegF (02/03/20 6:24 PM) (02/03/20 12:58 PM) Mode of Delivery (Oxygen) Room air Room air Room a ir (02/03/20 6:24 PM) (02/03/20 3:56 PM) (02/03/20 12: 58 PM) Blood pressure sites Arm, right (02/03/20 6:24 PM) Temperature Route Oral Oral (02/03/20 6:24 PM) (02/03/20 12:58 PM) Social History Social History Type Response Smoking Status Current every day smoker; To bacco user in household: Yes entered on: 05/27/14 Sex
--- OUTSIDE RECORDS SUMMARY | 2022-08-07 20:05 | XMS_ITS | Continuity of Care Document ---
:1975 Author Organization [facility] Address [address] [place] [address]- Care Team Providers Name Role Phone Ann-Marie Camacho MD Primary Care Physician Encounter [facility] [place] Date(s): 01/25/22 - 02/24/22 [facility] [address], [place] [address] Attending Physician: Pattie Todd Admitting Physician: Pattie [...] tablet, 0 Refills, Maintenance, 01/29/22 23:00:00 EDT, [facility][id number], Partial fill upon patient request if the prescription is for a schedule II opioid drug., 170, c... Start Date: 01/29/22 Stop Date: 02/05/22 Status: Orderedatorvastatin 20 mg oral tablet = 20 mg, By Mouth, Daily at bedtime, for hyperlipidemia, # 30 tablet, 1 Refills, Maintenance, Tablet, Route to Pharmacy Electronically, [id number], [facility]/pharmacy #[id number] Start Date: 08/26/18 Status: Orderedcetirizine [...] patch, 0 Refills, Maintenance, 04/08/21 23:31:00 EDT, [facility][id number], Partial fill upon patient request if the [...] 11 Refills, Maintenance, 01/09/21 16:20:00 EDT, Tablet, [facility] #[id number], Partial fill upon patient request if the prescription is for a schedule II opioid drug., 170, cm, 09/04/20... Start Date: 01/09/21 Stop Date: 01/04/22 Status: Orderedmetoprolol 50 mg oral tablet 50 mg, By Mouth, Daily, for hypertension, # 30 tablet, Refills 1, Tot. Refills 1, Maintenance, 08/26/18 14:50:46 EST, Route to Pharmacy Electronically, [id number], [facility]/pharmacy #[id number] Start Date: 08/26/18 Status: OrderedMyrbetriq [...] 0 Refills, Maintenance, 04/08/21 23:31:00 EDT, Tablet, [facility] #[id number], Partial fill upon patient request, 1 tablet [...] EC Tablet Start Date: 08/26/18 Status: OrderedPen [place], 29 G x 12.7 mm BD Ultra [...] tablet, 0 Refills,Maintenance, 04/03/21 17:35:00 EDT, Tablet, [facility] #[id number], Partial fill upon patient request if the [...] predominant pain(Confirmed) 1Problem added by Discern Expert Social History Social History Type Response Smoking Status Current every day smoker; To bacco user in household: Yes entered on: 05/27/14 Sex
--- OUTSIDE RECORDS SUMMARY | 2022-08-07 20:05 | XMS_ITS | Continuity of Care Document ---
:1975 Author Organization [facility] Address [address] [place] [address]- Care Team Providers Name Role Phone Lorenza FOUNTAIN, Christos Baron Primary Care Physician Encounter [facility] [place] [facility] [id number] Date(s): 08/31/20 - 09/01/[address] [address] Attending Physician: Harley BARBER, Pari Gillespie Allergies, Adverse Reactions, Alerts Substance Reaction Severity [...] Refills, Maintenance, Tablet, Route to Pharmacy Electronically, [id number], [facility]/pharmacy #[id number] Start Date: 08/26/18 Status: Orderedbrexpiprazole 4 [...] 10/02/19 14:03:00 EST, Route to Pharmacy Electronically, [facility], 170, cm, 10/02/19 6:28:00 [...] 01/18/20 22:09:00 EDT, Route to Pharmacy Electronically, [facility]/pharmacy #[id number], 170, cm, 10/02/19 6:28:00... Start Date: [...] 08/26/18 14:50:46 EST, Route to Pharmacy Electronically, [id number], [facility]/pharmacy #[id number] Start Date: 08/26/18 Status: OrderedMyrbetriq 50 [...] 01/18/20 22:09:00 EDT, Route to Pharmacy Electronically, [facility]/pharmacy #[id number], Partial fill upon patient request, 170, [...] 09/12/18 9:26:38 EST, Route to Pharmacy Electronically, [id number], C... Start Date: 09/12/18 Status: OrderedTylenol 325 mg oral capsule 2 capsule = 650 mg, By Mouth, Every 4 hours, PRN as needed for pain, not to exceed 4000 mg/day, # 50capsule, 0 Refills, Maintenance, 01/18/20 22:09:00 EDT, Capsule, [facility]/pharmacy #[id number], 170, cm, 10/02/19 6:28:00 EST, Height, 140.9, kg, 09/27/19 15:50:... Start Date: 01/18/20 Status: OrderedZofran 4 mg oral tablet 1 tablet = 4 mg, By Mouth, Every 8 hours, PRN Vomiting, # 10 tablet, 0 Refills, Maintenance, 01/18/20 22:09:00 EDT, Tablet, [facility]/pharmacy #[id number], 170, cm, 10/02/19 6:28:00 EST, Height, 140.9, kg, 09/27/19 15:50:00 EST, Dry Weight Start Date: 01/18/20 Status: OrderedZofran ODT 4 mg oral tablet, disintegrating 1 tablet = 4 mg, By Mouth, 3 times a day, PRN as needed for nausea/vomiting, # 10 tablet, 0 Refills,Soft Stop, 09/13/19 17:42:00 EST, DIS Tablet, [facility]/pharmacy #[id number], 170, cm, 08/27/19 10:56:00 EST, Height, [...]
--- OUTSIDE RECORDS SUMMARY | 2022-08-07 20:05 | XMS_ITS | Continuity of Care Document ---
:1975 Author Organization [facility] Address [address], [address] [place] [address]- Care Team Providers Name Role Phone Christos Britt MD Primary Care Physician Encounter 10/26/20 - 11/02/20 [facility] [address], [address] [place] [address]- Attending Physician: Crys Bonilla MD Admitting Physician: Crys Bonilla MD Referring Physician: Crys Bonilla MD Allergies, Adverse Reactions, Alerts Substance Reaction [...] Refills, Maintenance, Tablet, Route to Pharmacy Electronically, [id number], [facility]/pharmacy #[id number] Start Date: 08/26/18 Status: Orderedbrexpiprazole [...] 10/02/19 14:03:00 EST, Route to Pharmacy Electronically, [facility], 170, cm, 10/02/19 6:28:00 EST, Height, [...] 01/18/20 22:09:00 EDT, Route to Pharmacy Electronically, [facility]/pharmacy #[id number], 170, cm, 10/02/19 6:28:00... Start [...] 08/26/18 14:50:46 EST, Route to Pharmacy Electronically, [id number], [facility]/pharmacy #[id number] Start Date: 08/26/18 Status: OrderedMyrbetriq [...] 01/18/20 22:09:00 EDT, Route to Pharmacy Electronically, [facility]/pharmacy #[id number], Partial fill upon patient request, [...] 09/12/18 9:26:38 EST, Route to Pharmacy Electronically, [id number], C... Start Date: 09/12/18 Status: OrderedTylenol 325 mg oral capsule 2 capsule = 650 mg, By Mouth, Every 4 hours, PRN as needed for pain, not to exceed 4000 mg/day, # 50capsule, 0 Refills, Maintenance, 01/18/20 22:09:00 EDT, Capsule, [facility]/pharmacy #[id number], 170, cm, 10/02/19 6:28:00 EST, Height, 140.9, kg, 09/27/19 15:50:... Start Date: 01/18/20 Status: OrderedZofran 4 mg oral tablet 1 tablet = 4 mg, By Mouth, Every 8 hours, PRN Vomiting, # 10 tablet, 0 Refills, Maintenance, 01/18/20 22:09:00 EDT, Tablet, [facility]/pharmacy #[id number], 170, cm, 10/02/19 6:28:00 EST, Height, 140.9, kg, 09/27/19 15:50:00 EST, Dry Weight Start Date: 01/18/20 Status: OrderedZofran ODT 4 mg oral tablet, disintegrating 1 tablet = 4 mg, By Mouth, 3 times a day, PRN as needed for nausea/vomiting, # 10 tablet, 0 Refills,Soft Stop, 09/13/19 17:42:00 EST, DIS Tablet, [facility]/pharmacy #[id number], 170, cm, 08/27/19 10:56:00 EST, [...]
--- OUTSIDE RECORDS SUMMARY | 2022-08-07 20:05 | XMS_ITS | Continuity of Care Document ---
:1975 Author Organization [facility] Address [address] [place] [address]- Care Team Providers Name Role Phone Lorenza FOUNTAIN, Christos Baron Primary Care Physician Encounter [facility] [place] Date(s): 02/08/20 - 02/09/[address] [address] [facility] Encounter Diagnosis Benzodiazepine overdose (Final) - 02/08/20 Discharge Disposition: A-D/C Home Attending Physician: Theron Hensley MD Admitting Physician: Theron Hensley MD Referring Physician: Not on Staff, Referring [...] Refills, Maintenance, Tablet, Route to Pharmacy Electronically, [id number], [facility]/pharmacy #[id number] Start Date: 08/26/18 Status: [...] 10/02/19 14:03:00 EST, Route to Pharmacy Electronically, [facility], 170, cm, 10/02/19 6:28:00 EST, Height, 140.9, k... Start Date: 10/02/19 Stop Date: 11/01/19 Status: Orderedibuprofen 400 mg oral tablet 400 mg, 1, tablet, By Mouth, Every 8 hours, PRN, not to exceed 3200 mg/day, # 30 tablet, Refills 0, Tot. Refills 0, Maintenance, as needed for pain, 01/18/20 22:09:00 EDT, Route to Pharmacy Electronically, [facility]/pharmacy #[id number], 170, cm, 10/02/19 6:28:00... Start Date: [...] 08/26/18 14:50:46 EST, Route to Pharmacy Electronically, [id number], [facility]/pharmacy #[id number] Start Date: 08/26/18 Status: [...] 01/18/20 22:09:00 EDT, Route to Pharmacy Electronically, [facility]/pharmacy #[id number], Partial fill upon patient request, 170, [...] 09/12/18 9:26:38 EST, Route to Pharmacy Electronically, [id number], C... Start Date: 09/12/18 Status: OrderedTylenol 325 mg oral capsule 2 capsule = 650 mg, By Mouth, Every 4 hours, PRN as needed for pain, not to exceed 4000 mg/day, # 50capsule, 0 Refills, Maintenance, 01/18/20 22:09:00 EDT, Capsule, [facility]/pharmacy #[id number], 170, cm, 10/02/19 6:28:00 EST, Height, 140.9, kg, 09/27/19 15:50:... Start Date: 01/18/20 Status: OrderedZofran 4 mg oral tablet 1 tablet = 4 mg, By Mouth, Every 8 hours, PRN Vomiting, # 10 tablet, 0 Refills, Maintenance, 01/18/20 22:09:00 EDT, Tablet, [facility]/pharmacy #[id number], 170, cm, 10/02/19 6:28:00 EST, Height, 140.9, kg, 09/27/19 15:50:00 EST, Dry Weight Start Date: 01/18/20 Status: OrderedZofran ODT 4 mg oral tablet, disintegrating 1 tablet = 4 mg, By Mouth, 3 times a day, PRN as needed for nausea/vomiting, # 10 tablet, 0 Refills,Soft Stop, 09/13/19 17:42:00 EST, DIS Tablet, [facility]/pharmacy #[id number], 170, cm, 08/27/19 10:56:00 [...] Range]: Oxygen Saturation [94-100 %] 99 % 97 % 98 % (02/09/20 2:52 PM) (02/09/20 6:31 AM) (02/09/20 12: 21 AM) Pulse Rate [55-90 bpm] 80 bpm 88 bpm 88 bpm (02/09/20 2:52 PM) (02/09/20 8:38 AM) (02/09/20 6:3 1 AM) Blood Pressure [90-138/55-84 140/83 mm Hg 136/83 mm Hg 136 /83 mm Hg mm Hg] *H* (02/09/20 8:38 AM) (02/09/20 8:38 AM) (02/09/20 2:52 PM) Respiratory Rate [16-30 18 br/min 18 br/min 18 br/mi n br/min] (02/09/20 2:52 PM) (02/09/20 6:31 AM) (02/09/20 12: 21 AM) Temperature [96.8-100.4 98.0 DegF 98.3 DegF 98.7 Deg F DegF] (02/09/20 2:52 PM) (02/09/20 12:21 AM) (02/08/20 12 :42 PM) Mode of Delivery (Oxygen) Room air Room air Room a ir (02/09/20 2:52 PM) (02/09/20 6:31 AM) (02/09/20 12: 21 AM) Blood pressure sites Arm, right Arm, right Arm, left (02/09/20 2:52 PM) (02/09/20 6:31 AM) (02/09/20 12: 21 AM) Temperature Route Oral Oral (02/09/20 12:21 AM) (02/08/20 12:42 PM) Social History Social History Type Response Smoking Status Current every day smoker; To bacco user in household: Yes entered on: 05/27/14 Sex
--- OUTSIDE RECORDS SUMMARY | 2022-08-07 20:05 | XMS_ITS | Continuity of Care Document ---
:1975 Author Organization [facility] Address [address] [place] [address]- Care Team Providers Name Role Phone Not on Staff, PCP Primary Care Physician Unavailable Encounter [facility] [place] Date(s): 02/20/21 - 03/22/21 [facility] [address] [place] [id number] Allergies, Adverse Reactions, Alerts Substance Reaction Severity [...] Refills, Maintenance, Tablet, Route to Pharmacy Electronically, [id number], [facility]/pharmacy #[id number] Start Date: 08/26/18 Status: Orderedcetirizine [...] 11 Refills, Maintenance, 01/09/21 16:20:00 EDT, Tablet, [id number], Partial fill upon patient request if the prescription is for a schedule II opioid drug., 170, cm, 09/04/20... Start Date: 01/09/21 Stop Date: 01/04/22 Status: Orderedmetoprolol 50 mg oral tablet 50 mg, By Mouth, Daily, for hypertension, # 30 tablet, Refills 1, Tot. Refills 1, Maintenance, 08/26/18 14:50:46 EST, Route to Pharmacy Electronically, [id number], [facility]/pharmacy #[id number] Start Date: 08/26/18 Status: [...] EC Tablet Start Date: 08/26/18 Status: OrderedPen [place], 29 G x 12.7 mm BD Ultra [...]
--- OUTSIDE RECORDS SUMMARY | 2022-08-07 20:05 | XMS_ITS | Continuity of Care Document ---
:1975 Author Organization [facility] Address [address] [place] [address]- Care Team Providers Name Role Phone Ann-Marie Camacho MD Primary Care Physician [id number] Date(s): 01/29/22 - 01/29/[address] [address]- Encounter Diagnosis Back pain (Final) - 01/29/22 Discharge Disposition: A-D/C Home Attending Physician: Jermaine Erazo MD Admitting Physician: Jermaine Erazo MD Referring Physician: Not on Staff, Referring [...] tablet, 0 Refills, Maintenance, 01/29/22 23:00:00 EDT, [facility] #[id number], Partial fill upon patient request if the prescription is for a schedule II opioid drug., 170, c... Start Date: 01/29/22 Stop Date: 02/05/22 Status: Orderedatorvastatin 20 mg oral tablet = 20 mg, By Mouth, Daily at bedtime, for hyperlipidemia, # 30 tablet, 1 Refills, Maintenance, Tablet, Route to Pharmacy Electronically, [id number], [facility]/pharmacy #[id number] Start Date: 08/26/18 Status: Orderedcetirizine [...] patch, 0 Refills, Maintenance, 04/08/21 23:31:00 EDT, [facility] #[id number], Partial fill upon patient request if the [...] 11 Refills, Maintenance, 01/09/21 16:20:00 EDT, Tablet, [facility] #[id number], Partial fill upon patient request if the prescription is for a schedule II opioid drug., 170, cm, 09/04/20... Start Date: 01/09/21 Stop Date: 01/04/22 Status: Orderedmetoprolol 50 mg oral tablet 50 mg, By Mouth, Daily, for hypertension, # 30 tablet, Refills 1, Tot. Refills 1, Maintenance, 08/26/18 14:50:46 EST, Route to Pharmacy Electronically, [id number], [facility]/pharmacy #[id number] Start Date: 08/26/18 Status: OrderedMyrbetriq 50 mg [...] 0 Refills, Maintenance, 04/08/21 23:31:00 EDT, Tablet, [facility] #[id number], Partial fill upon patient request, 1 tablet [...] EC Tablet Start Date: 08/26/18 Status: OrderedPen [place], 29 G x 12.7 mm BD Ultra [...] tablet, 0 Refills,Maintenance, 04/03/21 17:35:00 EDT, Tablet, [facility] #[id number], Partial fill upon patient request if the [...] Exam Date Time Procedure Performing Provider Status 01/29/22 10:46 PM Chest 2 Views Frontal and Lat Mary Greenfield; Auth (Verified) Notes:(Chest 2 Views Frontal and Lat) Reason For Exam: Persistent CoughRESULT: Chest 2 Views Frontal and Lat Chest 2 Views Frontal and Lat INDICATION: Back pain, abdominal pain, vomiting, palpitations COMPARISON: 01/05/2021 FINDINGS: LINES AND TUBES: None. LUNGS AND PLEURA: Clear lungs. Normal pulmonary vascularity. No pleural effusion. No pneumothorax. HEART, MEDIASTINUM AND RAMON: Heart is normal in size. Normal upper mediastinal and hilar contour. BONES AND SOFT TISSUES: No acute abnormality. IMPRESSION: No acute abnormality. No findings to corresponds to patient's symptoms. I have personally reviewed the images and I agree with this report. WSN: [id number] Ordering Physician: Jermaine Erazo MD Dictated By: Mil Helms DO Dictated Date/Time: 01/29/22 11:00 p Reviewed By: Mike Fournier MD Signed By: Mike Fournier MD Signed Date/Time: 01/29/22 11:05 pm Transcribed By: GUSTAVO Transcribed Date/Time: 01/29/22 10:59 pm Vital Signs Most recent to oldest [Reference 1 2 3 Range]: Oxygen Saturation [94-100 %] 96 % 98 % 98 % (01/29/22 10:19 PM) (01/29/22 8:15 PM) (01/29/22 6:13 PM) Pulse Rate [55-90 bpm] 79 bpm 80 bpm 84 bpm (01/29/22 10:19 PM) (01/29/22 8:15 PM) (01/29/22 6:13 PM) Blood Pressure [90-138/55-84 mm 137/85 mm Hg 137/70 mm Hg 128/78 mm Hg Hg] (01/29/22 10:19 PM) (01/29/22 8:15 PM) (01/29/22 6:13 PM) Respiratory Rate [16-30 br/min] 26 br/min 18 br/min (01/29/22 6:13 PM) (01/29/22 5:50 PM) Temperature [96.8-100.4 DegF] 98.2 DegF 98.5 DegF 98 .9 DegF (01/29/22 10:19 PM) (01/29/22 8:15 PM) (01/29/22 6:13 PM) Mode of Delivery (Oxygen) Room air Room air Room a ir (01/29/22 8:15 PM) (01/29/22 6:13 PM) (01/29/22 5:50 P M) Blood pressure sites Arm, left Arm, left (01/29/22 10:19 PM) (01/29/22 8:15 PM) Temperature Route Oral Oral Oral (01/29/22 10:19 PM) (01/29/22 8:15 PM) (01/29/22 6:13 PM) Social History Social History Type Response Smoking Status Current every day smoker; To bacco user in household: Yes entered on: 05/27/14 Sex
--- OUTSIDE RECORDS SUMMARY | 2022-08-07 20:05 | XMS_ITS | Continuity of Care Document ---
:1975 Author Organization [facility] Address [address] [place] [address]- Care Team Providers Name Role Phone Lorenza FOUNTAIN, Christos Baron Primary Care Physician Encounter [facility] Date(s): 01/27/20 - 02/03/20 [facility] [address] [place] [address]- [facility] Attending Physician: Belkis Abad MD Referring Physician: Christos Britt MD Allergies, [...] Refills, Maintenance, Tablet, Route to Pharmacy Electronically, [id number], [facility]/pharmacy #[id number] Start Date: 08/26/18 Status: Orderedbrexpiprazole [...] 14:03:00 EST, Route to Pharmacy Electronically, [facility], 170, cm, 10/02/19 6:28:00 EST, Height, 140.9, k... Start Date: 10/02/19 Stop Date: 11/01/19 Status: Ordereddicyclomine 10 mg oral capsule 1 capsule = 10 mg, By Mouth, 4 times a day, PRN Nausea & Vomiting, # 28 capsule, 0 Refills, Maintenance, 10/02/19 14:02:00 EST, Capsule, [facility], 170, cm, 10/02/19 6:28:00 EST, Height, 140.9, kg, 09/27/19 15:50:00 EST, Dry Weight Start Date: 10/02/19 Stop Date: 10/09/19 Status: Orderedibuprofen 400 mg oral tablet 400 mg, 1, tablet, By Mouth, Every 8 hours, PRN, not to exceed 3200 mg/day, # 30 tablet, Refills 0, Tot. Refills 0, Maintenance, as needed for pain, 01/18/20 22:09:00 EDT, Route to Pharmacy Electronically, [facility]/pharmacy #[id number], 170, cm, 10/02/19 6:28:00... Start [...] 08/26/18 14:50:46 EST, Route to Pharmacy Electronically, [id number], [facility]/pharmacy #[id number] Start Date: 08/26/18 Status: OrderedMultivitamin [...] 01/18/20 22:09:00 EDT, Route to Pharmacy Electronically, [facility]/pharmacy #[id number], Partial fill upon patient request, [...] 09/12/18 9:26:38 EST, Route to Pharmacy Electronically, [id number], C... Start Date: 09/12/18 Status: OrderedTylenol 325 mg oral capsule 2 capsule = 650 mg, By Mouth, Every 4 hours, PRN as needed for pain, not to exceed 4000 mg/day, # 50capsule, 0 Refills, Maintenance, 01/18/20 22:09:00 EDT, Capsule, [facility]/pharmacy #[id number], 170, cm, 10/02/19 6:28:00 EST, Height, 140.9, kg, 09/27/19 15:50:... Start Date: 01/18/20 Status: OrderedZofran 4 mg oral tablet 1 tablet = 4 mg, By Mouth, Every 8 hours, PRN Vomiting, # 10 tablet, 0 Refills, Maintenance, 01/18/20 22:09:00 EDT, Tablet, [facility]/pharmacy #[id number], 170, cm, 10/02/19 6:28:00 EST, Height, 140.9, kg, 09/27/19 15:50:00 EST, Dry Weight Start Date: 01/18/20 Status: OrderedZofran ODT 4 mg oral tablet, disintegrating 1 tablet = 4 mg, By Mouth, 3 times a day, PRN as needed for nausea/vomiting, # 10 tablet, 0 Refills,Soft Stop, 09/13/19 17:42:00 EST, DIS Tablet, [facility]/pharmacy #[id number], 170, cm, 08/27/19 10:56:00 EST, Height, 139.8, kg, 08/14/19 10:37:00 EST, Dry Weight Start Date: 1/19/20 Status: Ordered Problem List Condition Effective Dates [...] oldest [Reference Range]: 1 Height 170 cm (01/27/20 10:23 AM) Weight 140.1 kg (01/27/20 10:23 AM) Oxygen Saturation [94-100 %] 97 % (01/27/20 10:23 AM) Pulse Rate [55-90 bpm] 73 bpm (01/27/20 10:23 AM) Body Mass Index [18.5-24.99] 48.48 *>HHI* (01/27/20 10:23 AM) Blood Pressure [90-138/55-84 mm Hg] 154/98 mm Hg *H* (01/27/20 10:23 AM) Respiratory Rate [16-30 br/min] 18 br/min (01/27/20 10:23 AM) Temperature [96.8-100.4 DegF] 99.6 DegF (01/27/20 10:23 AM) Mode of Delivery (Oxygen) Room air (01/27/20 10:23 AM) Blood pressure sites Arm, right (01/27/20 10:23 AM) Temperature Route Temporal (01/27/20 10:23 AM) Dry Weight 140.1 kg (01/27/20 10:23 AM) Weight Obtained Via Standing scale (01/27/20 10:23 AM) Dry Weight Obtained Via Standing scale (01/27/20 10:23 AM) Social History Social History Type Response Smoking Status Current every day smoker; To bacco user in household: Yes entered on: 05/27/14 Sex
--- OUTSIDE RECORDS SUMMARY | 2022-08-07 20:05 | XMS_ITS | Continuity of Care Document ---
:1975 Author Organization [facility] Address [address] [place] [address]- Care Team Providers Name Role Phone Harley BARBER, Pari Gillespie Primary Care Physician Encounter [facility] Date(s): 08/27/19 - 09/03/19 [facility] [address] [place] [address]- [facility] Attending Physician: Conner FOUNTAIN, Indra Baron [...] 02/11/19 15:56:27 EDT, Route to Pharmacy Electronically, [id number], [facility] Start Date: 02/11/19 Stop Date: 03/13/19 Status: Orderedatorvastatin 20 mg oral tablet = 20 mg, By Mouth, Daily at bedtime, for hyperlipidemia, # 30 tablet, 1 Refills, Maintenance, Tablet, Route to Pharmacy Electronically, [id number], [facility]/pharmacy #[id number] Start Date: 08/26/18 Status: Orderedbrexpiprazole 4 [...] 08/26/18 14:50:46 EST, Route to Pharmacy Electronically, [id number], [facility]/pharmacy #[id number] Start Date: 08/26/18 Status: OrderedMultivitamin Tablet [...] 09/12/18 9:26:38 EST, Route to Pharmacy Electronically, [id number], C... Start Date: 09/12/18 Status: Ordered Problem [...] oldest [Reference Range]: 1 Height 170 cm (08/27/19 10:56 AM) Oxygen Saturation [94-100 %] 98 % (08/27/19 10:56 AM) Pulse Rate [55-90 bpm] 80 bpm (08/27/19 10:56 AM) Blood Pressure [90-138/55-84 mm Hg] 147/81 mm Hg *H* (08/27/19 10:56 AM) Respiratory Rate [16-30 br/min] 24 br/min (08/27/19 10:56 AM) Temperature [96.8-100.4 DegF] 98.6 DegF (08/27/19 10:56 AM) Mode of Delivery (Oxygen) Room air (08/27/19 10:56 AM) Blood pressure sites Arm, left (08/27/19 10:56 AM) Temperature Route Oral (08/27/19 10:56 AM) Weight Obtained Via Standing scale (08/27/19 10:56 AM) Dry Weight Obtained Via Standing scale (08/27/19 10:56 AM) Social History Social History Type Response Smoking Status Current every day smoker; To bacco user in household: Yes entered on: 05/27/14 Sex
--- OUTSIDE RECORDS SUMMARY | 2022-08-07 20:05 | XMS_ITS | Continuity of Care Document ---
:1975 Author Organization [facility] Address [address] [place] [address]- Care Team Providers Name Role Phone Harley BARBER, Pari Gillespie Primary Care Physician Encounter [facility] Date(s): 08/14/19 - 08/24/19 [facility] [address] [place] [address]- [facility] Attending Physician: Pattie Todd Admitting Physician: AdmPattie campbell Referring Physician: AdmtrPattie Allergies, Adverse Reactions, Alerts [...] 02/11/19 15:56:27 EDT, Route to Pharmacy Electronically, [id number], [facility] Start Date: 02/11/19 Stop Date: 03/13/19 Status: Orderedatorvastatin 20 mg oral tablet = 20 mg, By Mouth, Daily at bedtime, for hyperlipidemia, # 30 tablet, 1 Refills, Maintenance, Tablet, Route to Pharmacy Electronically, [id number], [facility]/pharmacy #[id number] Start Date: 08/26/18 Status: Orderedbrexpiprazole [...] 08/26/18 14:50:46 EST, Route to Pharmacy Electronically, [id number], [facility]/pharmacy #[id number] Start Date: 08/26/18 Status: OrderedMultivitamin Tablet 1 tablet, By Mouth, Daily, 0 Refills, Maintenance, 09/12/17 9:49:15, Tablet Start Date: 09/12/17 Status: Orderedmupirocin 2% topical ointment 1 application, Topically, 3 times a day, # 15 Gm, 0 Refills, Acute 08/27/19 10:46:00 EST, 08/14/19 10:46:00 EST, Ointment, [facility]/pharmacy #[id number], 1 application Topically 3 times a [...] 09/12/18 9:26:38 EST, Route to Pharmacy Electronically, [id number], C... Start Date: 09/12/18 Status: Ordered Problem [...]
--- OUTSIDE RECORDS SUMMARY | 2022-08-07 20:05 | XMS_ITS | Continuity of Care Document ---
:1975 Author Organization [facility] Address [address] [place] [address]- Care Team Providers Name Role Phone Lorenza FOUNTAIN, Christos Baron Primary Care Physician Encounter [facility] Date(s): 10/08/19 - 10/08/[address] [address]- [facility] Discharge Disposition: A-D/C Walkout Attending Physician: Not [...] Refills, Maintenance, Tablet, Route to Pharmacy Electronically, [id number], [facility]/pharmacy #[id number] Start Date: 08/26/18 Status: Orderedbrexpiprazole [...] 10/02/19 14:03:00 EST, Route to Pharmacy Electronically, [facility], 170, cm, 10/02/19 6:28:00 EST, Height, 140.9, k... Start Date: 10/02/19 Stop Date: 11/01/19 Status: Ordereddicyclomine 10 mg oral capsule 1 capsule = 10 mg, By Mouth, 4 times a day, PRN Nausea & Vomiting, # 28 capsule, 0 Refills, Maintenance, 10/02/19 14:02:00 EST, Capsule, [facility], 170, cm, 10/02/19 6:28:00 [...] 08/26/18 14:50:46 EST, Route to Pharmacy Electronically, [id number], [facility]/pharmacy #[id number] Start Date: 08/26/18 Status: OrderedMultivitamin [...] 10/31/19 21:00:00 EST, 10/02/19 14:03:00 EST, Patch, [facility], 170, cm, 10/02/19 6:28:00 [...] 09/12/18 9:26:38 EST, Route to Pharmacy Electronically, [id number], C... Start Date: 09/12/18 Status: OrderedZofran ODT [...] [Reference Range]: 1 Oxygen Saturation [94-100 %] 98 % (10/08/19 6:13 PM) Pulse Rate [55-90 bpm] 65 bpm (10/08/19 6:13 PM) Blood Pressure [90-138/55-84 mm Hg] 151/83 mm Hg *H* (10/08/19 6:13 PM) Respiratory Rate [16-30 br/min] 18 br/min (10/08/19 6:13 PM) Temperature [96.8-100.4 DegF] 98.1 DegF (10/08/19 6:13 PM) Mode of Delivery (Oxygen) Room air (10/08/19 6:13 PM) Blood pressure sites Arm, right (10/08/19 6:13 PM) Temperature Route Oral (10/08/19 6:13 PM) Social History Social History Type Response Smoking Status Current every day smoker; To bacco user in household: Yes entered on: 05/27/14 Sex
--- OUTSIDE RECORDS SUMMARY | 2022-08-07 20:05 | XMS_ITS | Continuity of Care Document ---
:1975 Author Organization [facility] Address [address] [place] [address]- Care Team Providers Name Role Phone Ann-Marie Camacho MD Primary Care Phys[id number] Date[facility] 01/05/22 - 01/06/[address] [address]- Discharge Disposition: A-D/C Walkout Attending Physician: Not [...] Refills, Maintenance, Tablet, Route to Pharmacy Electronically, [id number], [facility]/pharmacy #[id number] Start Date: 08/26/18 Status: [...] patch, 0 Refills, Maintenance, 04/08/21 23:31:00 EDT, [facility] #[id number], Partial fill upon patient request if the [...] 11 Refills, Maintenance, 01/09/21 16:20:00 EDT, Tablet, [facility] #[id number], Partial fill upon patient request if the prescription is for a schedule II opioid drug., 170, cm, 09/04/20... Start Date: 01/09/21 Stop Date: 01/04/22 Status: Orderedmetoprolol 50 mg oral tablet 50 mg, By Mouth, Daily, for hypertension, # 30 tablet, Refills 1, Tot. Refills 1, Maintenance, 08/26/18 14:50:46 EST, Route to Pharmacy Electronically, [id number], [facility]/pharmacy #[id number] Start Date: 08/26/18 Status: [...] 0 Refills, Maintenance, 04/08/21 23:31:00 EDT, Tablet, [facility][id number], Partial fill upon patient request, 1 tablet [...] EC Tablet Start Date: 08/26/18 Status: OrderedPen [place], 29 G x 12.7 mm BD Ultra [...] tablet, 0 Refills,Maintenance, 04/03/21 17:35:00 EDT, Tablet, [facility] #[id number], Partial fill upon patient request if the [...] 3 [Reference Range]: Oxygen Saturation [94-100 %] 96 % 96 % 95 % (01/06/22 4:47 AM) (01/06/22 2:45 AM) (01/06/22 12: 34 AM) Pulse Rate [55-90 bpm] 83 bpm 84 bpm 88 bpm (01/06/22 4:47 AM) (01/06/22 2:45 AM) (01/06/22 12: 34 AM) Blood Pressure [90-138/55-84 130/82 mm Hg 121/74 mm Hg 132 /77 mm Hg mm Hg] (01/06/22 4:47 AM) (01/06/22 2:45 AM) (01/06/22 12: 34 AM) Respiratory Rate [16-30 18 br/min 18 br/min 19 br/mi n br/min] (01/06/22 2:45 AM) (01/06/22 12:34 AM) (01/05/22 10 :10 PM) Temperature [96.8-100.4 DegF] 97.8 DegF 97.8 DegF 96 .8 DegF (01/06/22 4:47 AM) (01/06/22 2:45 AM) (01/06/22 12: 34 AM) Mode of Delivery (Oxygen) Room air Room air Room a ir (01/06/22 4:47 AM) (01/06/22 2:45 AM) (01/06/22 12: 34 AM) Blood pressure sites Arm, right Arm, left Arm, left (01/06/22 4:47 AM) (01/06/22 2:45 AM) (01/06/22 12: 34 AM) Temperature Route Temporal Temporal Temporal (01/06/22 4:47 AM) (01/06/22 2:45 AM) (01/06/22 12: 34 AM) Social History Social History Type Response Smoking Status Current every day smoker; To bacco user in household: Yes entered on: 05/27/14 Sex
--- OUTSIDE RECORDS SUMMARY | 2022-08-07 20:05 | XMS_ITS | Continuity of Care Document ---
:1975 Author Organization [facility] Address [address] [place] [address]- Care Team Providers Name Role Phone Christos Britt MD Primary Care Physician Encounter [facility] Date(s): 09/04/20 - 09/11/20 [facility] [address] [place] [address]- Encounter Diagnosis Abscess (Discharge Diagnosis) - 09/04/20 Attending Physician: Rich Grider MD Referring Physician: Christos Britt MD Allergies, [...] Refills, Maintenance, Tablet, Route to Pharmacy Electronically, [id number], [facility][id number] Start Date: 08/26/18 Status: OrderedBactrim DS 800 mg-160 mg oral tablet 1 tablet, By Mouth, 2 times a day, for 10 days, # 20 tablet, 0 Refills, Acute 09/14/20 11:33:00 EST,09/04/20 11:33:00 EST, Tablet, [id number], Partial fill upon patient request if the prescription is for a schedule II opioid drug., 1 tablet B... Start Date: 09/04/20 Stop Date: 09/14/20 Status: OrderedBactrim DS 800 mg-160 mg oral tablet 1 tablet, By Mouth, 2 times a day, for 10 days, # 20 tablet, 0 Refills, Acute 09/14/20 11:35:00 EST,09/04/20 11:35:00 EST, Tablet, [facility]/pharmacy #[id number], Partial fill upon patient request if the prescription is for a schedule II opioid drug., 1 tablet B... Start Date: 09/04/20 Stop Date: 09/14/20 Status: Orderedbrexpiprazole 4 mg oral tablet 1 tablet = 4 mg, By Mouth, Daily, # 30 tablet, 0 Refills, Maintenance, 01/13/19 12:00:29 EDT, Tablet Start Date: 01/13/19 Status: OrderedCarafate 1 gm oral tablet 1 Gm, 1, tablet, By Mouth, 3 times a day before meals and bedtime, # 120 tablet, Refills 0, Tot. Refills 0, Maintenance, 10/02/19 14:03:00 EST, Route to Pharmacy Electronically, [facility], 170, cm, 10/02/19 6:28:00 EST, [...] 01/18/20 22:09:00 EDT, [id number] 170, cm, 10/02/19 6:28:00... Start Date: [...] 08/26/18 14:50:46 EST, Route to Pharmacy Electronically, [id number], [facility]/pharmacy #[id number] Start Date: 08/26/18 Status: [...] 01/18/20 22:09:00 EDT, Route to Pharmacy Electronically, [facility]/pharmacy #[id number], Partial fill upon patient [...] 09/12/18 9:26:38 EST, Route to Pharmacy Electronically, [id number], C... Start Date: 09/12/18 Status: OrderedTylenol 325 mg oral capsule 2 capsule = 650 mg, By Mouth, Every 4 hours, PRN as needed for pain, not to exceed 4000 mg/day, # 50capsule, 0 Refills, Maintenance, 01/18/20 22:09:00 EDT, Capsule, [facility]/pharmacy #[id number], 170, cm, 10/02/19 6:28:00 EST, Height, 140.9, kg, 09/27/19 15:50:... Start Date: 01/18/20 Status: OrderedZofran 4 mg oral tablet 1 tablet = 4 mg, By Mouth, Every 8 hours, PRN Vomiting, # 10 tablet, 0 Refills, Maintenance, 01/18/20 22:09:00 EDT, Tablet, [facility]/pharmacy #[id number], 170, cm, 10/02/19 6:28:00 EST, Height, 140.9, kg, 09/27/19 15:50:00 EST, Dry Weight Start Date: 01/18/20 Status: OrderedZofran ODT 4 mg oral tablet, disintegrating 1 tablet = 4 mg, By Mouth, 3 times a day, PRN as needed for nausea/vomiting, # 10 tablet, 0 Refills,Soft Stop, 09/13/19 17:42:00 EST, DIS Tablet, [facility]/pharmacy #[id number], 170, cm, 08/27/19 10:56:00 [...] Diagnosis Type Effective Dates Health Status Clinical Serv ice Informant Abscess Discharge 09/04/20 Diagnosis Vital Signs Most recent to oldest [Reference Range]: 1 Height 170 cm (09/04/20 11:16 AM) Weight 148.8 kg (09/04/20 11:16 AM) Oxygen Saturation [94-100 %] 98 % (09/04/20 11:16 AM) Pulse Rate [55-90 bpm] 105 bpm *H* (09/04/20 11:16 AM) Body Mass Index [18.5-24.99] 51.49 *>HHI* (09/04/20 11:16 AM) Blood Pressure [90-138/55-84 mm Hg] 154/94 mm Hg *H* (09/04/20 11:16 AM) Respiratory Rate [16-30 br/min] 20 br/min (09/04/20 11:16 AM) Temperature [96.8-100.4 DegF] 97.7 DegF (09/04/20 11:16 AM) Mode of Delivery (Oxygen) Room air (09/04/20 11:16 AM) Blood pressure sites Arm, right (09/04/20 11:16 AM) Temperature Route Temporal (09/04/20 11:16 AM) Dry Weight 148.8 kg (09/04/20 11:16 AM) Weight Obtained Via Standing scale (09/04/20 11:16 AM) Dry Weight Obtained Via Standing scale (09/04/20 11:16 AM) Social History Social History Type Response Smoking Status Current every day smoker; To bacco user in household: Yes entered on: 05/27/14 Sex
--- OUTSIDE RECORDS SUMMARY | 2022-08-07 20:05 | XMS_ITS | Continuity of Care Document ---
:1975 Author Organization [facility] Address [address] [place] [address]- Care Team Providers Name Role Phone Harley BARBER, Pari Gillespie Primary Care Physician Encounter [facility] Date(s): 04/26/20 - 04/27/[address] [address]- [facility] Attending Physician: Pari Souza NP Allergies, Adverse [...] Refills, Maintenance, Tablet, Route to Pharmacy Electronically, [id number], [facility]/pharmacy #[id number] Start Date: 08/26/18 Status: Orderedbrexpiprazole [...] to Pharmacy Electronically, [facility], 170, cm, 10/02/19 6:28:00 EST, Height, 140.9, k... Start Date: 10/02/19 Stop Date: 11/01/19 Status: Orderedibuprofen 400 mg oral tablet 400 mg, 1, tablet, By Mouth, Every 8 hours, PRN, not to exceed 3200 mg/day, # 30 tablet, Refills 0, Tot. Refills 0, Maintenance, as needed for pain, 01/18/20 22:09:00 EDT, Route to Pharmacy Electronically, [facility]/pharmacy #[id number], 170, cm, 10/02/19 6:28:00... Start [...] 08/26/18 14:50:46 EST, Route to Pharmacy Electronically, [id number], [facility]/pharmacy #[id number] Start Date: 08/26/18 Status: OrderedMyrbetriq [...] EDT, Route to Pharmacy Electronically, [facility]/pharmacy #[id number], Partial fill upon patient request, [...] 09/12/18 9:26:38 EST, Route to Pharmacy Electronically, [id number], C... Start Date: 09/12/18 Status: OrderedTylenol 325 mg oral capsule 2 capsule = 650 mg, By Mouth, Every 4 hours, PRN as needed for pain, not to exceed 4000 mg/day, # 50capsule, 0 Refills, Maintenance, 01/18/20 22:09:00 EDT, Capsule, [facility]/pharmacy #[id number], 170, cm, 10/02/19 6:28:00 EST, Height, 140.9, kg, 09/27/19 15:50:... Start Date: 01/18/20 Status: OrderedZofran 4 mg oral tablet 1 tablet = 4 mg, By Mouth, Every 8 hours, PRN Vomiting, # 10 tablet, 0 Refills, Maintenance, 01/18/20 22:09:00 EDT, Tablet, [facility]/pharmacy #[id number], 170, cm, 10/02/19 6:28:00 EST, [...]
--- OUTSIDE RECORDS SUMMARY | 2022-08-07 20:05 | XMS_ITS | Continuity of Care Document ---
:1975 Author Organization [facility] Address [address] [place] [address]- Care Team Providers Name Role Phone Ann-Marie Camacho MD Primary Care Physician Encounter [facility] Date(s): 06/07/21 - 07/07/21 [facility] [address] [place] [address] Attending Physician: Pattie Todd Admitting Physician: AdmtrPattie [...] Refills, Maintenance, Tablet, Route to Pharmacy Electronically, [id number], [facility]/pharmacy #[id number] Start Date: 1/1/19 Status: Orderedcetirizine 10 mg oral tablet 1 [...] patch, 0 Refills, Maintenance, 04/08/21 23:31:00 EDT, [facility] #[id number], Partial fill upon patient request if the [...] 11 Refills, Maintenance, 01/09/21 16:20:00 EDT, Tablet, [facility][id number], Partial fill upon patient request if the prescription is for a schedule II opioid drug., 170, cm, 09/04/20... Start Date: 01/09/21 Stop Date: 01/04/22 Status: Orderedmetoprolol 50 mg oral tablet 50 mg, By Mouth, Daily, for hypertension, # 30 tablet, Refills 1, Tot. Refills 1, Maintenance, 08/26/18 14:50:46 EST, Route to Pharmacy Electronically, [id number], [facility]/pharmacy #[id number] Start Date: 08/26/18 Status: OrderedMyrbetriq [...] 0 Refills, Maintenance, 04/08/21 23:31:00 EDT, Tablet, [facility] #[id number], Partial fill upon patient request, 1 tablet [...] EC Tablet Start Date: 08/26/18 Status: OrderedPen [place], 29 G x 12.7 mm BD Ultra [...] tablet, 0 Refills,Maintenance, 04/03/21 17:35:00 EDT, Tablet, [facility] #[id number], Partial fill upon patient request if the [...]
--- OUTSIDE RECORDS SUMMARY | 2022-08-07 20:05 | XMS_ITS | Continuity of Care Document ---
:1975 Author Organization [facility] Address [address] [place] [address]- Care Team Providers Name Role Phone Lorenza FOUNTAIN, Christos Baron Primary Care Physician Encounter [facility] [place] Date(s): 10/07/19 - 11/14/[address] [address]- [facility] Attending Physician: James Monte MD Admitting Physician: James Monte MD Referring Physician: James Monte MD Allergies, Adverse Reactions, Alerts Substance Reaction Severity Status lithium bad reaction Active penicillins can't breathe Active Adhesive Bandage adhesive on patches-skin irritations Active Other Food Allergy1 rash Active LaMICtal rash Active Vraylar Active TEGretol XR Active 1artichoke Immunizations Not Given Vaccine Date Status Refusal Reason pneumococcal 23-valent vaccine 06/08/15 Not Given P atient Refuses Medications atorvastatin 20 mg oral tablet = 20 mg, By Mouth, Daily at bedtime, for hyperlipidemia, # 30 tablet, 1 Refills, Maintenance, Tablet, Route to Pharmacy Electronically, [id number], [facility]/pharmacy #[id number] Start Date: 08/26/18 [...] 10/02/19 14:03:00 EST, Route to Pharmacy Electronically, [facility], 170, cm, 10/02/19 6:28:00 EST, Height, 140.9, k... Start Date: 10/02/19 Stop Date: 11/01/19 Status: Ordereddicyclomine 10 mg oral capsule 1 capsule = 10 mg, By Mouth, 4 times a day, PRN Nausea & Vomiting, # 28 capsule, 0 Refills, Maintenance, 10/02/19 14:02:00 EST, Capsule, [facility], 170, cm, 10/02/19 6:28:00 [...] 08/26/18 14:50:46 EST, Route to Pharmacy Electronically, [id number], [facility]acy #[id number] Start Date: 08/26/18 [...] 09/12/18 9:26:38 EST, Route to Pharmacy Electronically, [id number], C... Start Date: 09/12/18 Status: OrderedZofran ODT [...]
--- OUTSIDE RECORDS SUMMARY | 2022-08-07 20:06 | XMS_ITS | Continuity of Care Document ---
:1975 Author Organization [facility] Address [address] [place] [address]- Care Team Providers Name Role Phone Harley BARBER, Pari Gillespie Primary Care Physician Encounter [facility] Date(s): 08/14/19 - 08/14/[address] [address]- [facility] Attending Physician: Indra Prieto MD Allergies, Adverse Reactions, Alerts Substance Reaction [...] 02/11/19 15:56:27 EDT, Route to Pharmacy Electronically, [id number], [facility] Start Date: 02/11/19 Stop Date: 03/13/19 Status: Orderedatorvastatin 20 mg oral tablet = 20 mg, By Mouth, Daily at bedtime, for hyperlipidemia, # 30 tablet, 1 Refills, Maintenance, Tablet, Route to Pharmacy Electronically, [id number], [facility]/pharmacy #[id number] Start Date: 08/26/18 Status: OrderedBactrim DS 800 mg-160 mg oral tablet 1 tablet, By Mouth, 2 times a day, for 10 days, # 20 tablet, 0 Refills, Acute 08/24/19 10:46:00 EST,08/14/19 10:46:00 EST, Tablet, [facility]/pharmacy #[id number], 1 tablet By Mouth 2 times [...] 08/26/18 14:50:46 EST, Route to Pharmacy Electronically, [id number], [facility]/pharmacy #[id number] Start Date: 08/26/18 Status: OrderedMultivitamin Tablet 1 tablet, By Mouth, Daily, 0 Refills, Maintenance, 09/12/17 9:49:15, Tablet Start Date: 09/12/17 Status: Orderedmupirocin 2% topical ointment 1 application, Topically, 3 times a day, # 15 Gm, 0 Refills, Acute 08/27/19 10:46:00 EST, 08/14/19 10:46:00 EST, Ointment, [facility]/pharmacy #[id number], 1 application Topically 3 times [...] 09/12/18 9:26:38 EST, Route to Pharmacy Electronically, [id number], C... 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) Results Orders for Microbiology Reports Name Date Wound Deep Culture w/ Gram Smear (Deep Wound Culture w / Gram Smear) 08/14/19 Microbiology Reports TEST:Deep Wound Culture STATUS:Unauthenticated BODY SITE: SOURCE:DRAINA COLLECTED DATE/TIME:08/14/19 10:45 AMDeep Wound Culture SPECIMEN DESCRIPTION : DRAINAGE UMBILICUS SPECIAL REQUESTS : NONE GRAM STAIN : 2+ GRAM POSITIVE COCCI 1+ GRAM POSITIVE RODS 1+ GRAM NEGATIVE RODS NO CELLS SEEN REPORT STATUS : PRELIMINARY REPORT Social History Social History Type Response Smoking Status Current every day smoker; To bacco user in household: Yes entered on: 05/27/14 Sex
--- OUTSIDE RECORDS SUMMARY | 2022-08-07 20:06 | XMS_ITS | Continuity of Care Document ---
:1975 Author Organization [facility] Address [address], [address]rd Floor, [address] [place] [address]- Care Team Providers Name Role Phone Harley BARBER, Pari Gillespie Primary Care Physician Encounter [facility] Date(s): 09/10/19 - 09/20/19 [facility] [address], [address], [address] [place] [address]- [facility] Attending Physician: Pattie Todd Admitting Physician: AdmtrPattie Referring Physician: Admtr Ar8 Allergies, Adverse Reactions, Alerts Substance Reaction [...] 02/11/19 15:56:27 EDT, Route to Pharmacy Electronically, [id number], [facility] Start Date: 02/11/19 Stop Date: 03/13/19 Status: Orderedatorvastatin 20 mg oral tablet = 20 mg, By Mouth, Daily at bedtime, for hyperlipidemia, # 30 tablet, 1 Refills, Maintenance, Tablet, Route to Pharmacy Electronically, [id number], [facility]/pharmacy #[id number] Start Date: 08/26/18 Status: Orderedbrexpiprazole 4 mg oral tablet 1 tablet = 4 mg, By Mouth, Daily, # 30 tablet, 0 Refills, Maintenance, 01/13/19 12:00:29 EDT, Tablet Start Date: 01/13/19 Status: Ordereddicyclomine 10 mg oral capsule 1 capsule = 10 mg, By Mouth, 4 times a day, PRN Nausea & Vomiting, # 28 capsule, 0 Refills, Maintenance, 09/14/19 18:18:00 EST, Capsule, [facility]/pharmacy #[id number], 170, cm, 08/27/19 10:56:00 EST, [...] 08/26/18 14:50:46 EST, Route to Pharmacy Electronically, [id number], [facility]/pharmacy #[id number] Start Date: 08/26/18 Status: OrderedMultivitamin [...] 09/12/18 9:26:38 EST, Route to Pharmacy Electronically, [id number], C... Start Date: 09/12/18 Status: OrderedZofran ODT [...]
--- OUTSIDE RECORDS SUMMARY | 2022-08-07 20:06 | XMS_ITS | Continuity of Care Document ---
:1975 Author Organization [facility] Address [address] [place] [address]- Care Team Providers Name Role Phone Christos Britt MD Primary Care Physician Encounter [facility] [place] Date(s): 01/04/21 - 01/05/[address] [address]- Discharge Disposition: A-D/C Home Attending Physician: Sergo Felipe MD Admitting Physician: Destinee FOUNTAIN, Sergo Referring Physician: Not on Staff, Referring MD [...] Refills, Maintenance, Tablet, Route to Pharmacy Electronically, [id number], [facility]/pharmacy #[id number] Start Date: 08/26/18 Status: OrderedclonazePAM 0.5 [...] 0 Refills, Maintenance, 12/29/20 10:20:00 EDT, Solution, [facility], Partial fill upon patient [...] tablet, 0 Refills, Maintenance, 12/29/20 10:19:00EDT, Tablet, [facility], Partial fill upon patient request if the prescription is for a schedule II opioid drug., 170, cm, 09/04/20 11:1... Start Date: 12/29/20 Stop Date: 01/28/21 Status: Orderedmetoprolol 50 mg oral tablet 50 mg, By Mouth, Daily, for hypertension, # 30 tablet, Refills 1, Tot. Refills 1, Maintenance, 08/26/18 14:50:46 EST, Route to Pharmacy Electronically, [id number], [facility]/pharmacy #[id number] Start Date: 08/26/18 Status: [...] EC Tablet Start Date: 08/26/18 Status: OrderedPen [place], 29 G x 12.7 mm BD Ultra [...] Exam Date Time Procedure Performing Provider Status 01/05/21 1:56 AM Chest 2 Views Frontal and Lat Kevin Shultz; Sarah (Verified) Notes:(Chest 2 Views Frontal and Lat) Reason For Exam: Shortness of Breath, Fever;Other:RESULT: Chest 2 Views Frontal and Lat Chest 2 Views Frontal and Lat Hx of Present Illness: pt a newly diagnosed diabetic reports she checked her BS today and it was 75 newly on insulin and feels sleepy, chest pain and faint; Reason: Other:; Shortness of Breath, Fever; Clinical Question(s): Pneumonia COMPARISON: 12/27/2020 FINDINGS: Linear density at the left base may be due to a small focus of subsegmental atelectasis. Otherwise normal exam IMPRESSION: Possible small focus of subsegmental atelectasis at the left base in an otherwise normal exam WSN: [id number] Ordering Physician: Smita Harvey Dictated By: Willy Duenas MD Dictated Date/Time: 01/05/21 7:47 am Reviewed By: Willy Duenas MD Signed By: Willy Duenas MD Signed Date/Time: 01/05/21 7:47 am Transcribed By: CSB Transcribed Date/Time: 01/05/21 7:46 am Vital Signs Most recent to oldest 1 2 3 [Reference Range]: Oxygen Saturation [94-100 %] 97 % 97 % 97 % (01/05/21 3:19 AM) (01/05/21 1:12 AM) (01/04/21 8:1 5 PM) Pulse Rate [55-90 bpm] 81 bpm 78 bpm 86 bpm (01/05/21 3:19 AM) (01/05/21 1:12 AM) (01/04/21 8:1 5 PM) Blood Pressure [90-138/55-84 mm 121/65 mm Hg 121/75 mm Hg 132/77 mm Hg Hg] (01/05/21 3:19 AM) (01/05/21 1:12 AM) (01/04/21 8:1 5 PM) Respiratory Rate [16-30 br/min] 18 br/min 27 br/min 16 br/min (01/05/21 3:19 AM) (01/05/21 1:12 AM) (01/04/21 8:1 5 PM) Temperature [96.8-100.4 DegF] 98.9 DegF (01/04/21 8:15 PM) Mode of Delivery (Oxygen) Room air (01/04/21 8:15 PM) Blood pressure sites Arm, right (01/04/21 8:15 PM) Temperature Route Oral (01/04/21 8:15 PM) Social History Social History Type Response Smoking Status Current every day smoker; To bacco user in household: Yes entered on: 05/27/14 Sex
--- OUTSIDE RECORDS SUMMARY | 2022-08-07 20:06 | XMS_ITS | Continuity of Care Document ---
:1975 Author Organization [facility] Address [address] [place] [address]- Care Team Providers Name Role Phone Lorenza FOUNTAIN, Christos Baron Primary Care Physician Encounter [facility] [place] Date(s): 08/04/19 - 10/02/19 [facility] [address] [place] [address]- [facility] Attending Physician: Steve Crisostomo MD, V Admitting Physician: Steve Crisostomo MD, V Allergies, Adverse Reactions, Alerts Substance Reaction Severity [...] Refills, Maintenance, Tablet, Route to Pharmacy Electronically, [id number], [facility]/pharmacy #[id number] Start Date: 08/26/18 Status: [...] 10/02/19 14:03:00 EST, Route to Pharmacy Electronically, [facility], 170, cm, 10/02/19 6:28:00 EST, Height, 140.9, k... Start Date: 10/02/19 Stop Date: 11/01/19 Status: Ordereddicyclomine 10 mg oral capsule 1 capsule = 10 mg, By Mouth, 4 times a day, PRN Nausea & Vomiting, # 28 capsule, 0 Refills, Maintenance, 10/02/19 14:02:00 EST, Capsule, [facility], 170, cm, 10/02/19 6:28:00 [...] 08/26/18 14:50:46 EST, Route to Pharmacy Electronically, [id number], [facility]/pharmacy #[id number] Start Date: 08/26/18 Status: [...] 10/31/19 21:00:00 EST, 10/02/19 14:03:00 EST, Patch, [facility], 170, cm, 10/02/19 6:28:00 [...] tablet, By Mouth, Every 6 hours, PRN, for 3 days, # 12 tablet, Refills 0, Tot. Refills 0, Acute 10/05/19 14:03:00 EST, Pain , Severe, 10/02/19 14:03:00 EST, Route to Pharmacy Electronically, [facility], Partial fill upon patient... Start Date: 10/02/19 Stop Date: 10/05/19 Status: Orderedpantoprazole 40 mg oral delayed release [...] 09/12/18 9:26:38 EST, Route to Pharmacy Electronically, [id number], C... Start Date: 09/12/18 Status: OrderedZofran ODT [...]
--- OUTSIDE RECORDS SUMMARY | 2022-08-07 20:06 | XMS_ITS | Continuity of Care Document ---
:1975 Author Organization [facility] Address [address] [place] [address]- Care Team Providers Name Role Phone Ann-Marie Camacho MD Primary Care Physician Encounter [facility] [place] [place] Date(s): 03/09/21 - 07/07/21 [facility] [address] [place] [address] Attending Physician: Rosette Guillen MD Admitting Physician: Rosette Guillen MD Referring Physician: Christos Britt MD Allergies, [...] Refills, Maintenance, Tablet, Route to Pharmacy Electronically, [id number], [facility]/pharmacy #[id number] Start Date: 1/1/19 Status: Orderedcetirizine 10 [...] patch, 0 Refills, Maintenance, 04/08/21 23:31:00 EDT, [facility][id number], Partial fill upon patient request if the [...] 11 Refills, Maintenance, 01/09/21 16:20:00 EDT, Tablet, [id number], Partial fill upon patient request if the prescription is for a schedule II opioid drug., 170, cm, 09/04/20... Start Date: 01/09/21 Stop Date: 01/04/22 Status: Orderedmetoprolol 50 mg oral tablet 50 mg, By Mouth, Daily, for hypertension, # 30 tablet, Refills 1, Tot. Refills 1, Maintenance, 08/26/18 14:50:46 EST, Route to Pharmacy Electronically, [id number], [facility]/pharmacy #[id number] Start Date: 08/26/18 Status: OrderedMyrbetriq 50 [...] 0 Refills, Maintenance, 04/08/21 23:31:00 EDT, Tablet, [facility][id number], Partial fill upon patient request, 1 tablet [...] EC Tablet Start Date: 08/26/18 Status: OrderedPen [place], 29 G x 12.7 mm BD Ultra [...] tablet, 0 Refills,Maintenance, 04/03/21 17:35:00 EDT, Tablet, [facility][id number], Partial fill upon patient request if the [...]
--- OUTSIDE RECORDS SUMMARY | 2022-08-07 20:06 | XMS_ITS | Continuity of Care Document ---
:1975 Author Organization [facility] Address [address] [place] [address]- Care Team Providers Name Role Phone Lorenza FOUNTAIN, Christos Baron Primary Care Physician En[place] [facility] [place] Date(s): 02/23/20 - 03/01/20 [facility] [address] [place] [address]- [facility] Attending Physician: Indra Prieto MD Referring Physician: [...] Refills, Maintenance, Tablet, Route to Pharmacy Electronically, [id number], [facility]/pharmacy #[id number] Start Date: 08/26/18 Status: Orderedbrexpiprazole 4 [...] 10/02/19 14:03:00 EST, Route to Pharmacy Electronically, [facility], 170, cm, 10/02/19 6:28:00 EST, Height, 140.9, k... Start Date: 10/02/19 Stop Date: 11/01/19 Status: Orderedibuprofen 400 mg oral tablet 400 mg, 1, tablet, By Mouth, Every 8 hours, PRN, not to exceed 3200 mg/day, # 30 tablet, Refills 0, Tot. Refills 0, Maintenance, as needed for pain, 01/18/20 22:09:00 EDT, Route to Pharmacy Electronically, [facility]/pharmacy #[id number], 170, cm, 10/02/19 6:28:00... Start Date: [...] 08/26/18 14:50:46 EST, Route to Pharmacy Electronically, [id number], [facility]/pharmacy #[id number] Start Date: 08/26/18 Status: OrderedMyrbetriq 50 [...] EDT, Route to Pharmacy Electronically, [facility]/pharmacy #[id number], Partial fill upon patient request, 170, [...] 09/12/18 9:26:38 EST, Route to Pharmacy Electronically, [id number], C... Start Date: 09/12/18 Status: OrderedTylenol 325 mg oral capsule 2 capsule = 650 mg, By Mouth, Every 4 hours, PRN as needed for pain, not to exceed 4000 mg/day, # 50capsule, 0 Refills, Maintenance, 01/18/20 22:09:00 EDT, Capsule, [facility]/pharmacy #[id number], 170, cm, 10/02/19 6:28:00 EST, Height, 140.9, kg, 09/27/19 15:50:... Start Date: 01/18/20 Status: OrderedZofran 4 mg oral tablet 1 tablet = 4 mg, By Mouth, Every 8 hours, PRN Vomiting, # 10 tablet, 0 Refills, Maintenance, 01/18/20 22:09:00 EDT, Tablet, [facility]/pharmacy #[id number], 170, cm, 10/02/19 6:28:00 EST, Height, [...]
--- OUTSIDE RECORDS SUMMARY | 2022-08-07 20:06 | XMS_ITS | Continuity of Care Document ---
:1975 Author Organization [facility] Address [address] [place] [address]- Care Team Providers Name Role Phone Ann-Marie Camacho MD Primary Care Physician [id number] Date(s): 01/25/22 - 02/01/22 [facility] [address] [place] [address]- Encounter Diagnosis Left sided abdominal pain (Discharge Diagnosis) - 01/25/22 Attending Physician: Brian Gudino DO Referring Physician: Ann-Marie Camacho MD Allergies, Adverse Reactions, Alerts Substance Reaction [...] tablet, 0 Refills, Maintenance, 01/29/22 23:00:00 EDT, [facility][id number], Partial fill upon patient request if the prescription is for a schedule II opioid drug., 170, c... Start Date: 01/29/22 Stop Date: 02/05/22 Status: Orderedatorvastatin 20 mg oral tablet = 20 mg, By Mouth, Daily at bedtime, for hyperlipidemia, # 30 tablet, 1 Refills, Maintenance, Tablet, Route to Pharmacy Electronically, [id number], [facility]/pharmacy #[id number] Start Date: 08/26/18 Status: [...] patch, 0 Refills, Maintenance, 04/08/21 23:31:00 EDT, [facility][id number], Partial fill upon patient request if the [...] 11 Refills, Maintenance, 01/09/21 16:20:00 EDT, Tablet, [facility][id number], Partial fill upon patient request if the prescription is for a schedule II opioid drug., 170, cm, 09/04/20... Start Date: 01/09/21 Stop Date: 01/04/22 Status: Orderedmetoprolol 50 mg oral tablet 50 mg, By Mouth, Daily, for hypertension, # 30 tablet, Refills 1, Tot. Refills 1, Maintenance, 08/26/18 14:50:46 EST, Route to Pharmacy Electronically, [id number], [facility]/pharmacy #[id number] Start Date: 08/26/18 Status: OrderedMyrbetriq 50 mg [...] 0 Refills, Maintenance, 04/08/21 23:31:00 EDT, Tablet, [facility] #[id number], Partial fill upon patient request, 1 tablet [...] EC Tablet Start Date: 08/26/18 Status: OrderedPen [place], 29 G x 12.7 mm BD Ultra [...] tablet, 0 Refills,Maintenance, 04/03/21 17:35:00 EDT, Tablet, [facility] #[id number], Partial fill upon patient request if the [...] Clinical In formant Service Left sided Discharge 01/25/22 abdominal pain Diagnosis Vital Signs Most recent to oldest [Reference Range]: 1 Height 170 cm (01/25/22 1:47 PM) Oxygen Saturation [94-100 %] 98 % (01/25/22 1:47 PM) Pulse Rate [55-90 bpm] 83 bpm (01/25/22 1:47 PM) Blood Pressure [90-138/55-84 mm Hg] 142/84 mm Hg *H* (01/25/22 1:47 PM) Respiratory Rate [16-30 br/min] 24 br/min (01/25/22 1:47 PM) Temperature [96.8-100.4 DegF] 97.9 DegF (01/25/22 1:47 PM) Mode of Delivery (Oxygen) Room air (01/25/22 1:47 PM) Blood pressure sites Arm, left (01/25/22 1:47 PM) Temperature Route Temporal (01/25/22 1:47 PM) Social History Social History Type Response Smoking Status Current every day smoker; To bacco user in household: Yes entered on: 05/27/14 Sex
--- OUTSIDE RECORDS SUMMARY | 2022-08-07 20:06 | XMS_ITS | Continuity of Care Document ---
:1975 Author Organization [facility] Address [address] [place] [address]- Care Team Providers Name Role Phone Ann-Marie Camacho MD Primary Care Physician Encounter [facility] Date(s): 10/20/21 - 12/28/[address] [address] Attending Physician: Crys Bonilla MD Admitting Physician: [...] Refills, Maintenance, Tablet, Route to Pharmacy Electronically, [id number], [facility]/pharmacy #[id number] Start Date: 08/26/18 Status: Orderedcetirizine 10 [...] patch, 0 Refills, Maintenance, 04/08/21 23:31:00 EDT, [facility][id number], Partial fill upon patient request if the [...] 11 Refills, Maintenance, 01/09/21 16:20:00 EDT, Tablet, [facility][id number], Partial fill upon patient request if the prescription is for a schedule II opioid drug., 170, cm, 09/04/20... Start Date: 01/09/21 Stop Date: 01/04/22 Status: Orderedmetoprolol 50 mg oral tablet 50 mg, By Mouth, Daily, for hypertension, # 30 tablet, Refills 1, Tot. Refills 1, Maintenance, 08/26/18 14:50:46 EST, Route to Pharmacy Electronically, [id number], [facility]/pharmacy #[id number] Start Date: 08/26/18 Status: OrderedMyrbetriq 50 [...] 0 Refills, Maintenance, 04/08/21 23:31:00 EDT, Tablet, [facility] #[id number], Partial fill upon patient request, 1 tablet [...] EC Tablet Start Date: 08/26/18 Status: OrderedPen [place], 29 G x 12.7 mm BD Ultra [...] tablet, 0 Refills,Maintenance, 04/03/21 17:35:00 EDT, Tablet, [id number], Partial fill upon patient request if the [...]
--- OUTSIDE RECORDS SUMMARY | 2022-08-07 20:06 | XMS_ITS | Continuity of Care Document ---
:1975 Author Organization [facility] Address [address] [place] [address]- Care Team Providers Name Role Phone Not on Staff, PCP Primary Care Physician Unavailable Encounter [facility] [place] Date(s): 05/26/21 - 06/02/21 [facility] [address] [place], [place] [address] Attending Physician: Brian Gudino DO Referring Physician: Janice FOUNTAIN , Thevenin Allergies, Adverse Reactions, Alerts Substance Reaction Severity Status lithium bad reaction Active penicillins can't breathe Active Adhesive Bandage adhesive on patches-skin irritations Active Other Food Allergy1 rash Active TEGretol XR Active Vraylar Active LaMICtal rash Active 1artichoke Immunizations Given [...] Refills, Maintenance, Tablet, Route to Pharmacy Electronically, [id number], [facility]/pharmacy #[id number] Start Date: 08/26/18 Status: OrderedBactrim DS 800 mg-160 mg oral tablet 1 tablet, By Mouth, 2 times a day, for 10 days, # 20 tablet, 0 Refills, Acute 06/05/21 16:05:00 EDT,05/26/21 16:05:00 EDT, Tablet, [facility][id number], Partial fill upon patient request if theprescription is for a schedule II opioid drug., 1... Start Date: 05/26/21 Stop Date: 06/05/21 Status: Orderedcetirizine 10 mg oral tablet 1 [...] patch, 0 Refills, Maintenance, 04/08/21 23:31:00 EDT, [facility] #[id number], Partial fill upon patient request if the [...] 11 Refills, Maintenance, 01/09/21 16:20:00 EDT, Tablet, [facility][id number], Partial fill upon patient request if the prescription is for a schedule II opioid drug., 170, cm, 09/04/20... Start Date: 01/09/21 Stop Date: 01/04/22 Status: Orderedmetoprolol 50 mg oral tablet 50 mg, By Mouth, Daily, for hypertension, # 30 tablet, Refills 1, Tot. Refills 1, Maintenance, 08/26/18 14:50:46 EST, Route to Pharmacy Electronically, [id number], [facility]/pharmacy #[id number] Start Date: 08/26/18 Status: OrderedMyrbetriq 50 [...] 0 Refills, Maintenance, 04/08/21 23:31:00 EDT, Tablet, [facility][id number], Partial fill upon patient request, 1 tablet [...] EC Tablet Start Date: 08/26/18 Status: OrderedPen [place], 29 G x 12.7 mm BD Ultra [...] tablet, 0 Refills,Maintenance, 04/03/21 17:35:00 EDT, Tablet, [facility] #09862, Partial fill upon patient request if the [...] oldest [Reference Range]: 1 Height 170 cm (05/26/21 3:52 PM) Oxygen Saturation [94-100 %] 100 % (05/26/21 3:52 PM) Pulse Rate [55-90 bpm] 93 bpm *H* (05/26/21 3:52 PM) Blood Pressure [90-138/55-84 mm Hg] 147/95 mm Hg *H* (05/26/21 3:52 PM) Respiratory Rate [16-30 br/min] 20 br/min (05/26/21 3:52 PM) Temperature [96.8-100.4 DegF] 97.7 DegF (05/26/21 3:52 PM) Mode of Delivery (Oxygen) Room air (05/26/21 3:52 PM) Blood pressure sites Arm, left (05/26/21 3:52 PM) Temperature Route Temporal (05/26/21 3:52 PM) Social History Social History Type Response Smoking Status Current every day smoker; To bacco user in household: Yes entered on: 05/27/14 Sex
--- OUTSIDE RECORDS SUMMARY | 2022-08-07 20:06 | XMS_ITS | Continuity of Care Document ---
:1975 Author Organization [facility] Address [address] [place] [address]- Care Team Providers Name Role Phone Harley BARBER, Pari Gillespie Primary Care Physician Encounter [facility] [place] Date(s): 08/27/19 - 08/27/[address] [address]- [facility] Attending Physician: Rich Grider MD Allergies, Adverse [...] 02/11/19 15:56:27 EDT, Route to Pharmacy Electronically, [id number], [facility] Start Date: 02/11/19 Stop Date: 03/13/19 Status: Orderedatorvastatin 20 mg oral tablet = 20 mg, By Mouth, Daily at bedtime, for hyperlipidemia, # 30 tablet, 1 Refills, Maintenance, Tablet, Route to Pharmacy Electronically, [id number], [facility]/pharmacy #[id number] Start Date: [...] 08/26/18 14:50:46 EST, Route to Pharmacy Electronically, [id number], [facility]/pharmacy #[id number] Start Date: [...] 09/12/18 9:26:38 EST, Route to Pharmacy Electronically, [id number], [facility]... Start Date: 09/12/18 Status: Ordered Problem [...]
--- OUTSIDE RECORDS SUMMARY | 2022-08-07 20:06 | XMS_ITS | Continuity of Care Document ---
:1975 Author Organization [facility] Address [address] [place] [address]- Care Team Providers Name Role Phone Lorenza FOUNTAIN, Christos Baron Primary Care Physician Encounter [facility] Date(s): 12/18/19 - 12/19/[address] [address]- [facility] Attending Physician: Pari Souza NP Allergies, Adverse [...] Refills, Maintenance, Tablet, Route to Pharmacy Electronically, [id number], [facility]/pharmacy #[id number] Start Date: 08/26/18 Status: [...] 10/02/19 14:03:00 EST, Route to Pharmacy Electronically, [facility], 170, cm, 10/02/19 6:28:00 EST, Height, 140.9, k... Start Date: 10/02/19 Stop Date: 11/01/19 Status: Ordereddicyclomine 10 mg oral capsule 1 capsule = 10 mg, By Mouth, 4 times a day, PRN Nausea & Vomiting, # 28 capsule, 0 Refills, Maintenance, 10/02/19 14:02:00 EST, Capsule, [facility], 170, cm, 10/02/19 [...] 08/26/18 14:50:46 EST, Route to Pharmacy Electronically, [id number], [facility]/pharmacy #[id number] Start Date: 08/26/18 Status: [...] 09/12/18 9:26:38 EST, Route to Pharmacy Electronically, [id number], C... Start Date: 09/12/18 Status: OrderedZofran ODT 4 mg oral tablet, disintegrating 1 tablet = 4 mg, By Mouth, 3 times a day, PRN as needed for nausea/vomiting, # 10 tablet, 0 Refills,Soft Stop, 09/13/19 17:42:00 EST, DIS Tablet, [facility]/pharmacy #[id number], 170, cm, 08/27/19 10:56:00 [...]
--- OUTSIDE RECORDS SUMMARY | 2022-08-07 20:06 | XMS_ITS | Continuity of Care Document ---
:1975 Author Organization [facility] Address [address] [place] [address]- Care Team Providers Name Role Phone Christos Britt MD Primary Care Physician Encounter [facility] Date(s): 01/17/21 - 02/16/21 [facility] [address] [address] Attending Physician: Pattie Todd Admitting Physician: AdmtrPattie Referring Physician: Admtr, Ar8 Allergies, Adverse Reactions, Alerts Substance Reaction Severity Status lithium bad reaction Active penicillins can't breathe Active Other Food Allergy1 rash Active TEGretol [...] Refills, Maintenance, Tablet, Route to Pharmacy Electronically, [id number], [facility]/pharmacy #[id number] Start Date: 08/26/18 Status: OrderedclonazePAM [...] each, 11 Refills, Maintenance, 01/09/21 16:14:00 EDT,Solution, [facility] #[id number], Partial fill upon patient request if the [...] 11 Refills, Maintenance, 01/09/21 16:20:00 EDT, Tablet, [facility] #[id number], Partial fill upon patient request if the prescription is for a schedule II opioid drug., 170, cm, 09/04/20... Start Date: 01/09/21 Stop Date: 01/04/22 Status: Orderedmetoprolol 50 mg oral tablet 50 mg, By Mouth, Daily, for hypertension, # 30 tablet, Refills 1, Tot. Refills 1, Maintenance, 08/26/18 14:50:46 EST, Route to Pharmacy Electronically, [id number], [facility]/pharmacy #[id number] Start Date: 08/26/18 Status: [...] EC Tablet Start Date: 08/26/18 Status: OrderedPen [place], 29 G x 12.7 mm BD Ultra [...]
--- OUTSIDE RECORDS SUMMARY | 2022-08-07 20:06 | XMS_ITS | Continuity of Care Document ---
:1975 Author Organization [facility] Address [address] [place] [address]- Care Team Providers Name Role Phone Harley BARBER, Pari Gillespie Primary Care Physician Encounter [facility] Date(s): 05/10/20 - 05/17/20 [facility] [address] [place] [address]- [facility] Encounter Diagnosis Dog bite of right lower leg with infection (Discharge Diagnosis) - 05/10/20 Attending Physician: Conner FOUNTAIN, Indra Baron Referring [...] Refills, Maintenance, Tablet, Route to Pharmacy Electronically, [id number], [facility]/pharmacy #[id number] Start Date: 08/26/18 Status: Orderedbrexpiprazole 4 [...] 10/02/19 14:03:00 EST, Route to Pharmacy Electronically, [facility], 170, cm, 10/02/19 6:28:00 EST, Height, 140.9, k... Start Date: 10/02/19 Stop Date: 11/01/19 Status: Orderedibuprofen 400 mg oral tablet 400 mg, 1, tablet, By Mouth, Every 8 hours, PRN, not to exceed 3200 mg/day, # 30 tablet, Refills 0, Tot. Refills 0, Maintenance, as needed for pain, 01/18/20 22:09:00 EDT, Route to Pharmacy Electronically, [facility]/pharmacy #[id number], 170, cm, 10/02/19 6:28:00... Start Date: [...] 08/26/18 14:50:46 EST, Route to Pharmacy Electronically, [id number], [facility]/pharmacy #[id number] Start Date: 08/26/18 Status: OrderedMyrbetriq 50 [...] EDT, Route to Pharmacy Electronically, [facility]/pharmacy #[id number], Partial fill upon patient request, 170, [...] 09/12/18 9:26:38 EST, Route to Pharmacy Electronically, [id number], C... Start Date: 09/12/18 Status: OrderedTylenol 325 mg oral capsule 2 capsule = 650 mg, By Mouth, Every 4 hours, PRN as needed for pain, not to exceed 4000 mg/day, # 50capsule, 0 Refills, Maintenance, 01/18/20 22:09:00 EDT, Capsule, [facility]/pharmacy #[id number], 170, cm, 10/02/19 6:28:00 EST, Height, 140.9, kg, 09/27/19 15:50:... Start Date: 01/18/20 Status: OrderedZofran 4 mg oral tablet 1 tablet = 4 mg, By Mouth, Every 8 hours, PRN Vomiting, # 10 tablet, 0 Refills, Maintenance, 01/18/20 22:09:00 EDT, Tablet, [facility]/pharmacy #[id number], 170, cm, 10/02/19 6:28:00 EST, Height, [...] Dates Health Status Clinical In formant Service Dog bite of Discharge 05/10/20 right lower leg Diagnosis with infection Vital Signs Most recent to oldest [Reference Range]: 1 Height 170 cm (05/10/20 1:02 PM) Weight 145.3 kg (05/10/20 1:02 PM) Oxygen Saturation [94-100 %] 98 % (05/10/20 1:02 PM) Pulse Rate [55-90 bpm] 89 bpm (05/10/20 1:02 PM) Body Mass Index [18.5-24.99] 50.28 *>HHI* (05/10/20 1:02 PM) Blood Pressure [90-138/55-84 mm Hg] 148/87 mm Hg *H* (05/10/20 1:02 PM) Respiratory Rate [16-30 br/min] 16 br/min (05/10/20 1:02 PM) Temperature [96.8-100.4 DegF] 97.6 DegF (05/10/20 1:02 PM) Mode of Delivery (Oxygen) Room air (05/10/20 1:02 PM) Blood pressure sites Arm, right (05/10/20 1:02 PM) Temperature Route Temporal (05/10/20 1:02 PM) Dry Weight 145.3 kg (05/10/20 1:02 PM) Weight Obtained Via Standing scale (05/10/20 1:02 PM) Dry Weight Obtained Via Standing scale (05/10/20 1:02 PM) Social History Social History Type Response Smoking Status Current every day smoker; To bacco user in household: Yes entered on: 05/27/14 Sex
--- OUTSIDE RECORDS SUMMARY | 2022-08-07 20:06 | XMS_ITS | Continuity of Care Document ---
:1975 Author Organization [facility] Address [address] [place] [address]- Care Team Providers Name Role Phone Pari Souza NP Primary Care Physician Encounter [facility] Date(s): 06/18/19 - 09/17/[address] [address]- [facility] Attending Physician: Pari Souza NP Allergies, Adverse [...] 02/11/19 15:56:27 EDT, Route to Pharmacy Electronically, [id number], [facility] Start Date: 02/11/19 Stop Date: 03/13/19 Status: Orderedatorvastatin 20 mg oral tablet = 20 mg, By Mouth, Daily at bedtime, for hyperlipidemia, # 30 tablet, 1 Refills, Maintenance, Tablet, Route to Pharmacy Electronically, [id number], [facility]/pharmacy #[id number] Start Date: 08/26/18 Status: Orderedbrexpiprazole 4 mg oral tablet 1 tablet = 4 mg, By Mouth, Daily, # 30 tablet, 0 Refills, Maintenance, 01/13/19 12:00:29 EDT, Tablet Start Date: 01/13/19 Status: Ordereddicyclomine 10 mg oral capsule 1 capsule = 10 mg, By Mouth, 4 times a day, PRN Nausea & Vomiting, # 28 capsule, 0 Refills, Maintenance, 09/14/19 18:18:00 EST, Capsule, [facility]/pharmacy #[id number], 170, cm, 08/27/19 10:56:00 EST, [...] 08/26/18 14:50:46 EST, Route to Pharmacy Electronically, [id number], [facility]/pharmacy #[id number] Start Date: 08/26/18 Status: OrderedMultivitamin [...] 09/12/18 9:26:38 EST, Route to Pharmacy Electronically, [id number], C... Start Date: 09/12/18 Status: OrderedZofran ODT 4 mg oral tablet, disintegrating 1 tablet = 4 mg, By Mouth, 3 times a day, PRN as needed for nausea/vomiting, # 10 tablet, 0 Refills,Soft Stop, 09/13/19 17:42:00 EST, DIS Tablet, [facility]/pharmacy #[id number], 170, cm, 08/27/19 10:56:00 EST, [...]
--- OUTSIDE RECORDS SUMMARY | 2022-08-07 20:06 | XMS_ITS | Continuity of Care Document ---
:1975 Author Organization [facility] Address [address] [place] [address]- Care Team Providers Name Role Phone Lorenza FOUNTAIN, Christos Baron Primary Care Physician Encounter [facility] Date(s): 12/10/19 - 12/11/[address] [address]- [facility] Attending Physician: Pari Souza NP Allergies, [...] Refills, Maintenance, Tablet, Route to Pharmacy Electronically, [id number], [facility]/pharmacy #[id number] Start Date: 08/26/18 Status: Orderedbrexpiprazole [...] 10/02/19 14:03:00 EST, Route to Pharmacy Electronically, [facility], 170, cm, 10/02/19 6:28:00 EST, Height, 140.9, k... Start Date: 10/02/19 Stop Date: 11/01/19 Status: Ordereddicyclomine 10 mg oral capsule 1 capsule = 10 mg, By Mouth, 4 times a day, PRN Nausea & Vomiting, # 28 capsule, 0 Refills, Maintenance, 10/02/19 14:02:00 EST, Capsule, [facility], 170, cm, 10/02/19 6:28:00 [...] 08/26/18 14:50:46 EST, Route to Pharmacy Electronically, [id number], [facility]/pharmacy #[id number] Start Date: 08/26/18 Status: OrderedMultivitamin [...] 09/12/18 9:26:38 EST, Route to Pharmacy Electronically, [id number], C... Start Date: 09/12/18 Status: OrderedZofran ODT 4 mg oral tablet, disintegrating 1 tablet = 4 mg, By Mouth, 3 times a day, PRN as needed for nausea/vomiting, # 10 tablet, 0 Refills,Soft Stop, 09/13/19 17:42:00 EST, DIS Tablet, [facility]/pharmacy #[id number], 170, cm, 08/27/19 10:56:00 EST, [...]
--- OUTSIDE RECORDS SUMMARY | 2022-08-07 20:06 | XMS_ITS | Continuity of Care Document ---
:1975 Author Organization [facility] Address [address] [place] [address]- Care Team Providers Name Role Phone Ann-Marie Camacho MD Primary Care Physician Encounter [place] Date(s): 02/05/22 - 02/06/[address] [address]- Encounter Diagnosis COVID-19 (Final) - 02/06/22 Discharge Disposition: A-D/C Home Attending Physician: Alfredo Boles MD Admitting Physician: Alfredo Boles MD Referring Physician: Not on Staff, Referring [...] tablet, 0 Refills, Maintenance, 01/29/22 23:00:00 EDT, [facility][id number], Partial fill upon patient request if the prescription is for a schedule II opioid drug., 170, c... Start Date: 01/29/22 Stop Date: 02/05/22 Status: Orderedatorvastatin 20 mg oral tablet = 20 mg, By Mouth, Daily at bedtime, for hyperlipidemia, # 30 tablet, 1 Refills, Maintenance, Tablet, Route to Pharmacy Electronically, [id number], [facility]/pharmacy #[id number] Start Date: 08/26/18 Status: Orderedcetirizine [...] patch, 0 Refills, Maintenance, 04/08/21 23:31:00 EDT, [facility] #[id number], Partial fill upon patient request if the [...] 11 Refills, Maintenance, 01/09/21 16:20:00 EDT, Tablet, [facility] #[id number], Partial fill upon patient request if the prescription is for a schedule II opioid drug., 170, cm, 09/04/20... Start Date: 01/09/21 Stop Date: 01/04/22 Status: Orderedmetoprolol 50 mg oral tablet 50 mg, By Mouth, Daily, for hypertension, # 30 tablet, Refills 1, Tot. Refills 1, Maintenance, 08/26/18 14:50:46 EST, Route to Pharmacy Electronically, [id number], [facility]/pharmacy #[id number] Start Date: 08/26/18 Status: OrderedMyrbetriq 50 mg [...] 0 Refills, Maintenance, 04/08/21 23:31:00 EDT, Tablet, [facility] #[id number], Partial fill upon patient request, 1 tablet [...] EC Tablet Start Date: 08/26/18 Status: OrderedPen [place], 29 G x 12.7 mm BD Ultra [...] tablet, 0 Refills,Maintenance, 04/03/21 17:35:00 EDT, Tablet, [facility] #[id number], Partial fill upon patient request if the [...] predominant pain(Confirmed) 1Problem added by Discern Expert Results Radiology Reports Exam Date Time Procedure Performing Provider Status 02/06/22 12:27 AM Chest 2 Views Frontal and Lat Donte Dickinson [facility] (Verified) Notes:(Chest 2 Views Frontal and Lat) Reason For Exam: Chest Pain;Other:RESULT: Chest 2 Views Frontal and Lat Chest 2 Views Frontal and Lat Hx of Present Illness: Pt reporting CP SOB x 3 days, nasal congestion, body aches, n v, home covid +, attempted to call PCP for antiviral medications, unable to get prescription; Reason: Chest Pain; COMPARISON: 01/29/2022. FINDINGS: LINES AND TUBES: None. LUNGS AND PLEURA: Clear lungs. Normal pulmonary vascularity. No pleural effusion. No pneumothorax. HEART, MEDIASTINUM AND RAMON: Heart is normal in size. Normal upper mediastinal and hilar contour. BONES AND SOFT TISSUES: No acute abnormality. IMPRESSION: No acute abnormality. WSN: [id number] Ordering Physician: Josefa Lawler Dictated By: Fahad George MD Dictated Date/Time: 02/06/22 7:41 am Reviewed By: Fahad George MD Signed By: Fahad George MD Signed Date/Time: 02/06/22 7:41 am Transcribed By: GUSTAVO Transcribed Date/Time: 02/06/22 7:41 am Vital Signs Most recent to oldest 1 2 3 [Reference Range]: Oxygen Saturation [94-100 %] 96 % 96 % 97 % (02/06/22 5:30 AM) (02/06/22 4:04 AM) (02/06/22 12: 49 AM) Pulse Rate [55-90 bpm] 79 bpm 80 bpm 75 bpm (02/06/22 5:30 AM) (02/06/22 4:04 AM) (02/06/22 12: 49 AM) Blood Pressure [90-138/55-84 129/90 mm Hg 133/95 mm Hg 125 /59 mm Hg mm Hg] (02/06/22 5:30 AM) (02/06/22 4:04 AM) (02/06/22 12: 49 AM) Respiratory Rate [16-30 20 br/min 27 br/min 18 br/mi n br/min] (02/06/22 5:30 AM) (02/06/22 4:04 AM) (02/06/22 12: 49 AM) Temperature [96.8-100.4 DegF] 98 DegF 98 DegF 99 .3 DegF (02/06/22 5:30 AM) (02/06/22 4:04 AM) (02/06/22 12: 49 AM) Mode of Delivery (Oxygen) Room air Room air Room a ir (02/06/22 5:30 AM) (02/06/22 4:04 AM) (02/06/22 12: 49 AM) Blood pressure sites Arm, right Arm, right Arm, left (02/06/22 5:30 AM) (02/06/22 4:04 AM) (02/06/22 12: 49 AM) Temperature Route Oral Oral Oral (02/06/22 5:30 AM) (02/06/22 4:04 AM) (02/06/22 12: 49 AM) Social History Social History Type Response Smoking Status Current every day smoker; To bacco user in household: Yes entered on: 05/27/14 Sex
--- OUTSIDE RECORDS SUMMARY | 2022-08-07 20:06 | XMS_ITS | Continuity of Care Document ---
:1975 Author Organization [facility] Address [address] [place] [address]- Care Team Providers Name Role Phone Lorenza FOUNTAIN, Christos Baron Primary Care Physician Encounter [facility] Date(s): 09/24/19 - 10/02/[address] [address]- [facility] Encounter Diagnosis Terminal ileitis (Final) - 09/24/19 Discharge Disposition: A-D/C Home Attending Physician: Eloy Jones MD Admitting Physician: Cristina Butler DO Referring Physician: Not on Staff, Referring [...] Refills, Maintenance, Tablet, Route to Pharmacy Electronically, [id number], [facility]/pharmacy #[id number] Start Date: 08/26/18 Status: Orderedbrexpiprazole [...] 10/02/19 14:03:00 EST, Route to Pharmacy Electronically, [facility], 170, cm, 10/02/19 6:28:00 EST, Height, 140.9, k... Start Date: 10/02/19 Stop Date: 11/01/19 Status: Ordereddicyclomine 10 mg oral capsule 1 capsule = 10 mg, By Mouth, 4 times a day, PRN Nausea & Vomiting, # 28 capsule, 0 Refills, Maintenance, 10/02/19 14:02:00 EST, Capsule, [facility], 170, cm, 10/02/19 6:28:00 [...] 08/26/18 14:50:46 EST, Route to Pharmacy Electronically, [id number], [facility]/pharmacy #[id number] Start Date: 08/26/18 Status: OrderedMultivitamin [...] 10/31/19 21:00:00 EST, 10/02/19 14:03:00 EST, Patch, [facility], 170, cm, 10/02/19 6:28:00 [...] 10/02/19 14:03:00 EST, Route to Pharmacy Electronically, [facility], Partial fill upon patient... Start [...] 09/12/18 9:26:38 EST, Route to Pharmacy Electronically, [id number], C... 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) Procedures Procedure Date Related Diagnosis Body Site Status Colonoscopy 09/28/19 Completed Esophagogastroduodenoscopy 09/28/19 C ompleted Vital Signs Most recent to oldest 1 2 3 [Reference Range]: Height 170 cm 170 cm 170 cm (10/02/19 6:28 AM) (10/01/19 9:25 PM) (10/01/19 2:44 P M) Weight 138.9 kg 138.9 kg 140.9 kg (09/28/19 8:02 AM) (09/27/19 6:29 PM) (09/27/19 3:50 P M) Oxygen Saturation [94-100 %] 96 % 97 % 96 % (10/02/19 6:28 AM) (10/01/19 9:25 PM) (10/01/19 2:44 P M) Pulse Rate [55-90 bpm] 97 bpm 69 bpm 78 bpm *H* (10/02/19 6:28 AM) (10/01/19 9:25 PM ) (10/02/19 9:19 AM) Body Mass Index [18.5-24.99] 48.06 48.06 48. 75 *>HHI* *>HHI* *>HHI* (09/28/19 8:02 AM) (09/27/19 6:29 PM) (09/27/19 3:50 P M) Blood Pressure [90-138/55-84 139/78 mm Hg 139/78 mm Hg 132 /75 mm Hg mm Hg] *H* *H* (10/02/19 6:28 AM) (10/02/19 9:19 AM) (10/02/19 9:19 AM) Respiratory Rate [16-30 18 br/min 18 br/min 18 br/mi n br/min] (10/02/19 6:28 AM) (10/01/19 9:25 PM) (10/01/19 8:57 P M) Temperature [96.8-100.4 97.8 DegF 98.9 DegF 98.9 Deg F DegF] (10/02/19 6:28 AM) (10/01/19 9:25 PM) (10/01/19 2:44 P M) Mode of Delivery (Oxygen) Room air Room air Room a ir (10/02/19 6:28 AM) (10/01/19 9:25 PM) (10/01/19 2:44 P M) Blood pressure sites Arm, left Arm, left Arm, left (10/02/19 6:28 AM) (10/01/19 9:25 PM) (10/01/19 2:44 P M) Temperature Route Oral Oral Oral (2/7/20 6:28 AM) (10/01/19 9:25 PM) (10/01/19 2:44 P M) Dry Weight 140.9 kg 140.9 kg 140.9 kg (09/27/19 3:50 PM) (09/24/19 11:12 PM) (09/24/19 7:1 0 PM) Weight Obtained Via Bed scale Standing scale Standing sca le (09/27/19 6:29 PM) (09/24/19 11:12 PM) (09/24/19 10: 21 AM) Dry Weight Obtained Via Standing scale Standing scale (09/24/19 11:12 PM) (09/24/19 10:21 AM) Sensory deficits None (09/27/19 3:50 PM) Mobility assistance Independent (09/27/19 3:50 PM) Social History Social History Type Response Smoking Status Current every day smoker; To bacco user in household: Yes entered on: 05/27/14 Sex
--- OUTSIDE RECORDS SUMMARY | 2022-08-07 20:06 | XMS_ITS | Continuity of Care Document ---
:1975 Author Organization [facility] Address [address] [place] [address]- Care Team Providers Name Role Phone Lorenza FOUNTAIN, Christos Baron Primary Care Physician Encounter [facility] Date(s): 01/20/20 - 01/20/[address] [address]- [facility] Encounter Diagnosis Back pain (Final) - 01/20/20 Discharge Disposition: A-D/C Home Attending Physician: Jermaine [...] Refills, Maintenance, Tablet, Route to Pharmacy Electronically, [id number], [facility]/pharmacy #[id number] Start Date: [...] 10/02/19 14:03:00 EST, Route to Pharmacy Electronically, [facility], 170, cm, 10/02/19 6:28:00 EST, Height, 140.9, k... Start Date: 10/02/19 Stop Date: 11/01/19 Status: Ordereddicyclomine 10 mg oral capsule 1 capsule = 10 mg, By Mouth, 4 times a day, PRN Nausea & Vomiting, # 28 capsule, 0 Refills, Maintenance, 10/02/19 14:02:00 EST, Capsule, [facility], 170, cm, 10/02/19 6:28:00 [...] 22:09:00 EDT, Route to Pharmacy Electronically, [facility]/pharmacy #[id number], 170, cm, 10/02/19 6:28:00... Start [...] 08/26/18 14:50:46 EST, Route to Pharmacy Electronically, [id number], [facility]/pharmacy #[id number] Start Date: [...] 22:09:00 EDT, Route to Pharmacy Electronically, [facility]/pharmacy #[id number], Partial fill upon patient request, [...] 09/12/18 9:26:38 EST, Route to Pharmacy Electronically, [id number], C... Start Date: 09/12/18 Status: OrderedTylenol 325 mg oral capsule 2 capsule = 650 mg, By Mouth, Every 4 hours, PRN as needed for pain, not to exceed 4000 mg/day, # 50capsule, 0 Refills, Maintenance, 01/18/20 22:09:00 EDT, Capsule, [facility]/pharmacy #[id number], 170, cm, 10/02/19 6:28:00 EST, Height, 140.9, kg, 09/27/19 15:50:... Start Date: 01/18/20 Status: OrderedZofran 4 mg oral tablet 1 tablet = 4 mg, By Mouth, Every 8 hours, PRN Vomiting, # 10 tablet, 0 Refills, Maintenance, 01/18/20 22:09:00 EDT, Tablet, [facility]/pharmacy #[id number], 170, cm, 10/02/19 6:28:00 EST, Height, 140.9, kg, 09/27/19 15:50:00 EST, Dry Weight Start Date: 01/18/20 Status: OrderedZofran ODT 4 mg oral tablet, disintegrating 1 tablet = 4 mg, By Mouth, 3 times a day, PRN as needed for nausea/vomiting, # 10 tablet, 0 Refills,Soft Stop, 09/13/19 17:42:00 EST, DIS Tablet, [facility]/pharmacy #[id number], 170, cm, [...] Exam Date Time Procedure Performing Provider Status 01/20/20 12:33 PM Chest 2 Views Frontal and Lat Peewee , Ines; A ut (Verified) Notes:(Chest 2 Views Frontal and Lat) Reason For Exam: Persistent CoughRESULT: Chest 2 Views Frontal and Lat Chest 2 Views Frontal and Lat Refer to EMR; Reason: Persistent Cough; Clinical Question(s): Pneumonia; Hx of Present Illness: Pt was seen here Saturday for ongoing c o left flank to llq abdominal area, had U S labs , etc, everything negative. Pt went to and they sent her to ED to be re-evaluated. No fever, cough , chills or SOB.;Other Objective Findings: Pt is alert oriented x3 , left flank pain t COMPARISON: 07/06/2019 FINDINGS: LINES AND TUBES: None. LUNGS AND PLEURA: Clear lungs. Normal pulmonary vascularity. No pleural effusion. No pneumothorax. HEART, MEDIASTINUM AND RAMON: Heart is normal in size. Normal mediastinal and hilar contour. BONES AND SOFT TISSUES: No acute abnormality. IMPRESSION: No acute abnormality. WSN: [id number] Ordering Physician: Jermaine Erazo MD Dictated By: Carlo Alfredo MD Dictated Date/Time: 01/20/20 12:35 p Reviewed By: Carlo Alfredo MD Signed By: Carlo Alfredo MD Signed Date/Time: 01/20/20 12:35 pm Transcribed By: GUSTAVO Transcribed Date/Time: 01/20/20 12:34 pm Vital Signs Most recent to oldest 1 2 3 [Reference Range]: Weight 140.8 kg 140.8 kg (01/20/20 2:26 PM) (01/20/20 10:34 AM) Oxygen Saturation [94-100 %] 100 % 99 % 96 % (01/20/20 2:26 PM) (01/20/20 10:34 AM) (01/20/20 10 :31 AM) Pulse Rate [55-90 bpm] 55 bpm 78 bpm 75 bpm (01/20/20 2:26 PM) (01/20/20 10:34 AM) (01/20/20 10 :31 AM) Blood Pressure [90-138/55-84 142/67 mm Hg 161/94 mm Hg mm Hg] *H* *H* (01/20/20 2:26 PM) (01/20/20 10:34 AM) Respiratory Rate [16-30 16 br/min 20 br/min 20 br/mi n br/min] (01/20/20 2:26 PM) (01/20/20 1:50 PM) (01/20/20 1:2 0 PM) Temperature [96.8-100.4 DegF] 98.3 DegF 98.9 DegF (01/20/20 2:26 PM) (01/20/20 10:34 AM) Mode of Delivery (Oxygen) Room air Room air Room a ir (01/20/20 2:26 PM) (01/20/20 10:34 AM) (01/20/20 10 :31 AM) Blood pressure sites Arm, right Arm, left (01/20/20 2:26 PM) (01/20/20 10:34 AM) Temperature Route Oral Oral (01/20/20 2:26 PM) (01/20/20 10:34 AM) Dry Weight 140.8 kg 140.8 kg (01/20/20 2:26 PM) (01/20/20 10:34 AM) Social History Social History Type Response Smoking Status Current every day smoker; To bacco user in household: Yes entered on: 05/27/14 Sex
--- OUTSIDE RECORDS SUMMARY | 2022-08-07 20:06 | XMS_ITS | Continuity of Care Document ---
:1975 Author Organization [facility] Address [address] [place] [address]- Care Team Providers Name Role Phone Not on Staff, PCP Primary Care Physician Unavailable Encounter [facility] Date(s): 03/28/21 - 03/28/[address] [address]- Discharge Disposition: A-D/C Walkout Attending Physician: Not on Staff, Attending MD Admitting Physician: Not on Staff, Admitting MD Referring Physician: Not on Staff, Referring MD Allergies, Adverse Reactions, Alerts Substance Reaction Severity Status lithium bad reaction Active penicillins can't breathe Active Adhesive Bandage adhesive on patches-skin irritations Active TEGretol XR Active Vraylar Active Other Food Allergy1 rash Active LaMICtal [...] Refills, Maintenance, Tablet, Route to Pharmacy Electronically, [id number], [facility]/pharmacy #[id number] Start Date: 08/26/18 Status: Orderedcetirizine [...] 11 Refills, Maintenance, 01/09/21 16:20:00 EDT, Tablet, [id number], Partial fill upon patient request if the prescription is for a schedule II opioid drug., 170, cm, 09/04/20... Start Date: 01/09/21 Stop Date: 01/04/22 Status: Orderedmetoprolol 50 mg oral tablet 50 mg, By Mouth, Daily, for hypertension, # 30 tablet, Refills 1, Tot. Refills 1, Maintenance, 08/26/18 14:50:46 EST, Route to Pharmacy Electronically, [id number], [facility]/pharmacy #[id number] Start Date: 08/26/18 Status: OrderedMyrbetriq [...] EC Tablet Start Date: 08/26/18 Status: OrderedPen [place], 29 G x 12.7 mm BD Ultra [...] Range]: Oxygen Saturation [94-100 %] 97 % 98 % 97 % (03/28/21 9:35 PM) (03/28/21 7:28 PM) (03/28/21 4:07 P M) Pulse Rate [55-90 bpm] 92 bpm 97 bpm 70 bpm *H* *H* (03/28/21 4:07 PM) (03/28/21 9:35 PM) (03/28/21 7:28 PM) Blood Pressure [90-138/55-84 mm 138/73 mm Hg 126/85 mm Hg 122/66 mm Hg Hg] (03/28/21 9:35 PM) (03/28/21 7:28 PM) (03/28/21 4:07 P M) Respiratory Rate [16-30 br/min] 18 br/min 20 br/min 18 br/min (03/28/21 9:35 PM) (03/28/21 7:28 PM) (03/28/21 4:07 P M) Temperature [96.8-100.4 DegF] 98.3 DegF 98.5 DegF 98 .2 DegF (03/28/21 9:35 PM) (03/28/21 7:28 PM) (03/28/21 4:07 P M) Mode of Delivery (Oxygen) Room air Room air Room a ir (03/28/21 9:35 PM) (03/28/21 7:28 PM) (03/28/21 4:07 P M) Blood pressure sites Arm, right Arm, right Arm, right (03/28/21 9:35 PM) (03/28/21 7:28 PM) (03/28/21 4:07 P M) Temperature Route Oral Oral Oral (03/28/21 9:35 PM) (03/28/21 7:28 PM) (03/28/21 4:07 P M) Social History Social History Type Response Smoking Status Current every day smoker; To bacco user in household: Yes entered on: 05/27/14 Sex
--- OUTSIDE RECORDS SUMMARY | 2022-08-07 20:06 | XMS_ITS | Continuity of Care Document ---
:1975 Author Organization [facility] Address [address] [place] [address]- Care Team Providers Name Role Phone Lorenza FOUNTAIN, Christos Baron Primary Care Physician Encounter [facility] Date(s): 01/26/20 - 01/27/[address] [address]- [facility] Attending Physician: Pari Souza NP Allergies, Adverse [...] Refills, Maintenance, Tablet, Route to Pharmacy Electronically, [id number], [facility]/pharmacy #[id number] Start Date: [...] 10/02/19 14:03:00 EST, Route to Pharmacy Electronically, [facility], 170, cm, 10/02/19 6:28:00 EST, Height, 140.9, k... Start Date: 10/02/19 Stop Date: 11/01/19 Status: Ordereddicyclomine 10 mg oral capsule 1 capsule = 10 mg, By Mouth, 4 times a day, PRN Nausea & Vomiting, # 28 capsule, 0 Refills, Maintenance, 10/02/19 14:02:00 EST, Capsule, [facility], 170, cm, 10/02/19 [...] 01/18/20 22:09:00 EDT, Route to Pharmacy Electronically, [facility]/pharmacy #[id number], 170, cm, 10/02/19 6:28:00... Start [...] 08/26/18 14:50:46 EST, Route to Pharmacy Electronically, [id number], [facility]/pharmacy #[id number] Start Date: [...] 01/18/20 22:09:00 EDT, Route to Pharmacy Electronically, [facility]/pharmacy #[id number], Partial fill upon patient request, [...] 09/12/18 9:26:38 EST, Route to Pharmacy Electronically, [id number], C... Start Date: 09/12/18 Status: OrderedTylenol 325 mg oral capsule 2 capsule = 650 mg, By Mouth, Every 4 hours, PRN as needed for pain, not to exceed 4000 mg/day, # 50capsule, 0 Refills, Maintenance, 01/18/20 22:09:00 EDT, Capsule, [facility]/pharmacy #[id number], 170, cm, 10/02/19 6:28:00 EST, Height, 140.9, kg, 09/27/19 15:50:... Start Date: 01/18/20 Status: OrderedZofran 4 mg oral tablet 1 tablet = 4 mg, By Mouth, Every 8 hours, PRN Vomiting, # 10 tablet, 0 Refills, Maintenance, 01/18/20 22:09:00 EDT, Tablet, [facility]/pharmacy #[id number], 170, cm, 10/02/19 6:28:00 EST, [...]
--- OUTSIDE RECORDS SUMMARY | 2022-08-07 20:06 | XMS_ITS | Continuity of Care Document ---
:1975 Author Organization [facility] Address [address] [place] [address]- Care Team Providers Name Role Phone Harley BARBER, Pari Gillespie Primary Care Physician Encounter [facility] Date(s): 03/11/20 - 03/12/[address] [address]- [facility] Attending Physician: Pari Souza NP [...] Refills, Maintenance, Tablet, Route to Pharmacy Electronically, [id number], [facility]/pharmacy #[id number] Start Date: 08/26/18 Status: Orderedbrexpiprazole 4 [...] 10/02/19 14:03:00 EST, Route to Pharmacy Electronically, [facility], 170, cm, 10/02/19 6:28:00 EST, Height, 140.9, k... Start Date: 10/02/19 Stop Date: 11/01/19 Status: Orderedibuprofen 400 mg oral tablet 400 mg, 1, tablet, By Mouth, Every 8 hours, PRN, not to exceed 3200 mg/day, # 30 tablet, Refills 0, Tot. Refills 0, Maintenance, as needed for pain, 01/18/20 22:09:00 EDT, Route to Pharmacy Electronically, [facility]/pharmacy #[id number], 170, cm, 10/02/19 6:28:00... Start Date: [...] 08/26/18 14:50:46 EST, Route to Pharmacy Electronically, [id number], [facility]/pharmacy #[id number] Start Date: 08/26/18 Status: OrderedMyrbetriq 50 [...] EDT, Route to Pharmacy Electronically, [facility]/pharmacy #[id number], Partial fill upon patient request, 170, [...] 09/12/18 9:26:38 EST, Route to Pharmacy Electronically, [id number], C... Start Date: 09/12/18 Status: OrderedTylenol 325 mg oral capsule 2 capsule = 650 mg, By Mouth, Every 4 hours, PRN as needed for pain, not to exceed 4000 mg/day, # 50capsule, 0 Refills, Maintenance, 01/18/20 22:09:00 EDT, Capsule, [facility]/pharmacy #[id number], 170, cm, 10/02/19 6:28:00 EST, Height, 140.9, kg, 09/27/19 15:50:... Start Date: 01/18/20 Status: OrderedZofran 4 mg oral tablet 1 tablet = 4 mg, By Mouth, Every 8 hours, PRN Vomiting, # 10 tablet, 0 Refills, Maintenance, 01/18/20 22:09:00 EDT, Tablet, [facility]/pharmacy #[id number], 170, cm, 10/02/19 6:28:00 EST, Height, [...]
--- OUTSIDE RECORDS SUMMARY | 2022-08-07 20:06 | XMS_ITS | Continuity of Care Document ---
:1975 Author Organization [facility] Address [address] [place] [address]- Care Team Providers Name Role Phone Ann-Marie Camacho MD Primary Care Physician Encounter [facility] [place] Date(s): 03/22/22 - 03/22/[address] [address] Discharge Disposition: A-D/C Home Attending Physician: Adelaide GOLDEN MD (Surgeon), Kaye Admitting Physician: Adelaide GOLEDN MD (Surgeon), Kaye Referring Physician: Adelaide GOLDEN MD (Surgeon), Kaye Allergies, Adverse Reactions, Alerts Substance Reaction Severity [...] 06/08/15 Not Given P atient Refuses Medications acetaminophen 325 mg oral tablet 650 mg, By Mouth, Every 4 hours, PRN, for 7 days, If patient has not received Oxycodone/Acetaminophen (Percocet-5) in PACU, # 50 tablet, Refills 0, Tot. Refills 0, Acute 03/29/22 17:33:00 EDT, Pain , Mild, 03/22/22 17:33:00 EDT, Route to Pharmacy Elec... Start Date: 03/22/22 Stop Date: 03/29/22 Status: OrderedAlcohol Pads See Instructions, # 200 each, Refills [...] tablet, 0 Refills, Maintenance, 01/29/22 23:00:00 EDT, [id number], Partial fill upon patient request if the prescription is for a schedule II opioid drug., 170, c... Start Date: 01/29/22 Stop Date: 02/05/22 Status: Orderedatorvastatin 20 mg oral tablet = 20 mg, By Mouth, Daily at bedtime, for hyperlipidemia, # 30 tablet, 1 Refills, Maintenance, Tablet, Route to Pharmacy Electronically, [id number], [facility]/pharmacy #[id number] Start Date: [...] patch, 0 Refills, Maintenance, 04/08/21 23:31:00 EDT, [facility][id number], Partial fill upon patient request if the [...] 11 Refills, Maintenance, 01/09/21 16:20:00 EDT, Tablet, [facility] #[id number], Partial fill upon patient request if the prescription is for a schedule II opioid drug., 170, cm, 09/04/20... Start Date: 01/09/21 Stop Date: 01/04/22 Status: Orderedmetoprolol 50 mg oral tablet 50 mg, By Mouth, Daily, for hypertension, # 30 tablet, Refills 1, Tot. Refills 1, Maintenance, 08/26/18 14:50:46 EST, Route to Pharmacy Electronically, [id number], [facility]/pharmacy #[id number] Start Date: [...] 0 Refills, Maintenance, 04/08/21 23:31:00 EDT, Tablet, [facility] #[id number], Partial fill upon patient request, 1 tablet [...] 5 mg, 1, tablet, By Mouth, Every 4 hours, PRN, for 3 days, # 10 tablet, Refills 0, Tot. Refills 0, Acute 03/25/22 17:33:00 EDT, Pain , Mild, 03/22/22 17:33:00 EDT, Route to Pharmacy Electronically, [facility][id number], Partial fill upon patien... Start Date: 03/22/22 Stop Date: 03/25/22 Status: OrderedOxyCODONE IR Tablet 5 mg, Tablet, By Mouth, Every 4 hours, in PACU ONLY, if patient can tolerate PO, PRN for Pain , Mild, Routine, 03/22/22 17:06:00 EDT Start Date: 03/22/22 Stop Date: 03/23/22 Status: Discontinuedpantoprazole 40 mg oral delayed release tablet = 40 mg, By Mouth, 2 times a day, for acid reflux, # 30 tablet, 1 Refills, Maintenance, 08/26/18 14:51:11 EST, EC Tablet Start Date: 08/26/18 Status: OrderedPen [place], 29 G x 12.7 mm BD Ultra [...] tablet, 0 Refills,Maintenance, 04/03/21 17:35:00 EDT, Tablet, [facility] #[id number], Partial fill upon patient request if the [...] oldest 1 2 3 [Reference Range]: Weight 144.7 kg (03/22/22 2:09 PM) Oxygen Saturation [94-100 %] 95 % 93 % 95 % (03/22/22 8:00 PM) *L* (03/22/22 7:30 PM) (03/22/22 7:45 PM) Pulse Rate [55-90 bpm] 90 bpm (03/22/22 2:09 PM) Blood Pressure [90-138/55-84 mm 138/85 mm Hg 157/88 mm Hg 157/94 mm Hg Hg] (03/22/22 7:15 PM) *H* *H* (03/22/22 7:00 PM) (03/22/22 6:45 PM) Respiratory Rate [16-30 br/min] 18 br/min 17 br/min 20 br/min (03/22/22 7:15 PM) (03/22/22 7:03 PM) (03/22/22 6:4 5 PM) Temperature [96.8-100.4 DegF] 97.5 DegF 97.7 DegF 97 .2 DegF (03/22/22 7:15 PM) (03/22/22 5:45 PM) (03/22/22 2:0 9 PM) Liters per Minute 2 L/min 6 L/min 6 L/min (03/22/22 6:45 PM) (03/22/22 6:30 PM) (03/22/22 6:1 5 PM) Mode of Delivery (Oxygen) Room air Room air Nasal cannula (03/22/22 8:30 PM) (03/22/22 7:30 PM) (03/22/22 7:1 5 PM) Blood pressure sites Arm, right Arm, right Arm, right (03/22/22 6:30 PM) (03/22/22 6:15 PM) (03/22/22 6:0 0 PM) Temperature Route Temporal Temporal Temporal (03/22/22 7:15 PM) (03/22/22 5:45 PM) (03/22/22 2:0 9 PM) Social History Social History Type Response Smoking Status Current every day smoker; To bacco user in household: Yes entered on: 05/27/14 Sex
--- OUTSIDE RECORDS SUMMARY | 2022-08-07 20:06 | XMS_ITS | Continuity of Care Document ---
:1975 Author Organization [facility] Address [address] [place] [address]- Care Team Providers Name Role Phone Lorenza FOUNTAIN, Christos Baron Primary Care Physician Encounter [facility] R [id number] Date(s): 12/26/20 - 12/27/[address] [address] Attending Physician: Harley BARBER, Pari Boyce Allergies, Adverse Reactions, Alerts Substance Reaction Severity [...] Refills, Maintenance, Tablet, Route to Pharmacy Electronically, [id number], [facility]/pharmacy #[id number] Start Date: 08/26/18 Status: OrderedclonazePAM [...] 01/18/20 22:09:00 EDT, Route to Pharmacy Electronically, [facility]/pharmacy #[id number], 170, cm, 10/02/19 6:28:00... Start Date: 01/18/20 Status: OrderedLinzess 145 mcg oral capsule 1 [...] 08/26/18 14:50:46 EST, Route to Pharmacy Electronically, [id number], [facility]/pharmacy #[id number] Start Date: 08/26/18 [...] EST, EC Tablet Start Date: 08/26/18 Status: OrderedTylenol 325 mg oral capsule 2 capsule = 650 mg, By Mouth, Every 4 hours, PRN as needed for pain, not to exceed 4000 mg/day, # 50capsule, 0 Refills, Maintenance, 01/18/20 22:09:00 EDT, Capsule, [facility]/pharmacy #[id number], 170, cm, 10/02/19 6:28:00 EST, [...]
--- OUTSIDE RECORDS SUMMARY | 2022-08-07 20:07 | XMS_ITS | Continuity of Care Document ---
:1975 Author Organization [facility] Address [address] [place] [address]- Care Team Providers Name Role Phone Ann-Marie Camacho MD Primary Care Phys[id number] Date(s): 01/26/22 - 01/26/[address] [address]- Discharge Disposition: A-D/C Walkout Attending Physician: Not [...] Refills, Maintenance, Tablet, Route to Pharmacy Electronically, [id number], [facility]/pharmacy #[id number] Start Date: 08/26/18 [...] patch, 0 Refills, Maintenance, 04/08/21 23:31:00 EDT, [facility] #[id number], Partial fill upon patient request if the [...] 11 Refills, Maintenance, 01/09/21 16:20:00 EDT, Tablet, [facility] #[id number], Partial fill upon patient request if the prescription is for a schedule II opioid drug., 170, cm, 09/04/20... Start Date: 01/09/21 Stop Date: 01/04/22 Status: Orderedmetoprolol 50 mg oral tablet 50 mg, By Mouth, Daily, for hypertension, # 30 tablet, Refills 1, Tot. Refills 1, Maintenance, 08/26/18 14:50:46 EST, Route to Pharmacy Electronically, [id number], [facility]/pharmacy #[id number] Start Date: 08/26/18 Status: OrderedMyrbetriq [...] 0 Refills, Maintenance, 04/08/21 23:31:00 EDT, Tablet, [facility] #[id number], Partial fill upon patient request, 1 tablet [...] EC Tablet Start Date: 08/26/18 Status: OrderedPen [place], 29 G x 12.7 mm BD Ultra [...] tablet, 0 Refills,Maintenance, 04/03/21 17:35:00 EDT, Tablet, [facility][id number], Partial fill upon patient request if the [...] 2 3 Range]: Oxygen Saturation [94-100 %] 100 % 98 % 95 % (01/26/22 6:56 PM) (01/26/22 4:45 PM) (01/26/22 2:40 P M) Pulse Rate [55-90 bpm] 80 bpm 74 bpm 77 bpm (01/26/22 6:56 PM) (01/26/22 4:45 PM) (01/26/22 2:40 P M) Blood Pressure [90-138/55-84 mm 144/95 mm Hg 129/59 mm Hg 105/72 mm Hg Hg] *H* (01/26/22 4:45 PM) (01/26/22 2:40 PM ) (01/26/22 6:56 PM) Respiratory Rate [16-30 br/min] 18 br/min 18 br/min (01/26/22 6:56 PM) (01/26/22 12:33 PM) Temperature [96.8-100.4 DegF] 98.4 DegF 98.4 DegF 98 .4 DegF (01/26/22 6:56 PM) (01/26/22 4:45 PM) (01/26/22 2:40 P M) Mode of Delivery (Oxygen) Room air Room air Room a ir (01/26/22 6:56 PM) (01/26/22 4:45 PM) (01/26/22 2:40 P M) Blood pressure sites Arm, right Arm, right Arm, right (01/26/22 6:56 PM) (01/26/22 4:45 PM) (01/26/22 2:40 P M) Temperature Route Oral Oral Oral (01/26/22 6:56 PM) (01/26/22 4:45 PM) (01/26/22 2:40 P M) Social History Social History Type Response Smoking Status Current every day smoker; To bacco user in household: Yes entered on: 05/27/14 Sex
--- OUTSIDE RECORDS SUMMARY | 2022-08-07 20:07 | XMS_ITS | Continuity of Care Document ---
:1975 Author Organization [facility] Address [address] [place] [id number]- Care Team Providers Name Role Phone Lorenza FOUNTAIN, Christos Baron Primary Care Physician Encounter [facility] [place] Date(s): 01/18/20 - 01/18/[address] [address]- [facility] Encounter Diagnosis Back pain (Final) - 01/18/20 Discharge Disposition: A-D/C Home Attending Physician: Prasanna Mello MD Admitting Physician: Prasanna Mello MD Referring Physician: Not on Staff, Referring [...] Refills, Maintenance, Tablet, Route to Pharmacy Electronically, [id number], [facility]/pharmacy #[id number] Start Date: 08/26/18 Status: Orderedbrexpiprazole [...] 14:03:00 EST, Route to Pharmacy Electronically, [facility], 170, cm, 10/02/19 6:28:00 EST, Height, 140.9, k... Start Date: 10/02/19 Stop Date: 11/01/19 Status: Ordereddicyclomine 10 mg oral capsule 1 capsule = 10 mg, By Mouth, 4 times a day, PRN Nausea & Vomiting, # 28 capsule, 0 Refills, Maintenance, 10/02/19 14:02:00 EST, Capsule, [facility], 170, cm, 10/02/19 6:28:00 EST, Height, 140.9, kg, 09/27/19 15:50:00 EST, Dry Weight Start Date: 10/02/19 Stop Date: 10/09/19 Status: Orderedibuprofen 400 mg oral tablet 400 mg, 1, tablet, By Mouth, Every 8 hours, PRN, not to exceed 3200 mg/day, # 30 tablet, Refills 0, Tot. Refills 0, Maintenance, as needed for pain, 01/18/20 22:09:00 EDT, Route to Pharmacy Electronically, [facility]/pharmacy #[id number], 170, cm, 10/02/19 6:28:00... Start [...] 08/26/18 14:50:46 EST, Route to Pharmacy Electronically, [id number], [facility]/pharmacy #[id number] Start Date: 08/26/18 Status: OrderedMultivitamin Tablet [...] 01/18/20 22:09:00 EDT, Route to Pharmacy Electronically, [facility]/pharmacy #[id number], Partial fill upon patient request, [...] 09/12/18 9:26:38 EST, Route to Pharmacy Electronically, [id number], C... Start Date: 09/12/18 Status: OrderedTylenol 325 mg oral capsule 2 capsule = 650 mg, By Mouth, Every 4 hours, PRN as needed for pain, not to exceed 4000 mg/day, # 50capsule, 0 Refills, Maintenance, 01/18/20 22:09:00 EDT, Capsule, [facility]/pharmacy #[id number], 170, cm, 10/02/19 6:28:00 EST, Height, 140.9, kg, 09/27/19 15:50:... Start Date: 01/18/20 Status: OrderedZofran 4 mg oral tablet 1 tablet = 4 mg, By Mouth, Every 8 hours, PRN Vomiting, # 10 tablet, 0 Refills, Maintenance, 01/18/20 22:09:00 EDT, Tablet, [facility]/pharmacy #[id number], 170, cm, 10/02/19 6:28:00 EST, Height, 140.9, kg, 09/27/19 15:50:00 EST, Dry Weight Start Date: 01/18/20 Status: OrderedZofran ODT 4 mg oral tablet, disintegrating 1 tablet = 4 mg, By Mouth, 3 times a day, PRN as needed for nausea/vomiting, # 10 tablet, 0 Refills,Soft Stop, 09/13/19 17:42:00 EST, DIS Tablet, [facility]/pharmacy #[id number], 170, cm, 08/27/19 10:56:00 EST, Height, 139.8, kg, 12/20/19 10:37:00 EST, Dry Weight Start Date: 09/13/19 [...] Saturation [94-100 %] 98 % 99 % 97 % (01/18/20 10:23 PM) (01/18/20 6:19 PM) (01/18/20 6: 07 PM) Pulse Rate [55-90 bpm] 72 bpm 70 bpm 70 bpm (01/18/20 10:23 PM) (01/18/20 6:50 PM) (01/18/20 6: 19 PM) Blood Pressure [90-138/55-84 146/79 mm Hg 151/85 mm Hg 160 /90 mm Hg mm Hg] *H* *H* *H* (01/18/20 10:23 PM) (01/18/20 6:50 PM) (01/18/20 6: 19 PM) Respiratory Rate [16-30 16 br/min 18 br/min 18 br/mi n br/min] (01/18/20 10:23 PM) (01/18/20 8:20 PM) (01/18/20 7: 18 PM) Temperature [96.8-100.4 DegF] 98.4 DegF 98.3 DegF (01/18/20 10:23 PM) (01/18/20 6:19 PM) Mode of Delivery (Oxygen) Room air Room air (01/18/20 6:50 PM) (01/18/20 6:19 PM) Blood pressure sites Arm, right Arm, left Arm, left (01/18/20 10:23 PM) (01/18/20 6:50 PM) (01/18/20 6: 19 PM) Temperature Route Oral (01/18/20 6:19 PM) Social History Social History Type Response Smoking Status Current every day smoker; To bacco user in household: Yes entered on: 05/27/14 Sex
--- OUTSIDE RECORDS SUMMARY | 2022-08-07 20:07 | XMS_ITS | Continuity of Care Document ---
:1975 Author Organization [facility] Address [address] [place] [address]- Care Team Providers Name Role Phone Lorenza FOUNTAIN, Christos Baron Primary Care Physician Encounter [facility] Date(s): 02/17/20 - 02/17/[address] [address]- [facility] Discharge Disposition: A-D/C Walkout Attending Physician: Not [...] Refills, Maintenance, Tablet, Route to Pharmacy Electronically, [id number], [facility]/pharmacy #[id number] Start Date: 08/26/18 Status: Orderedbrexpiprazole [...] 10/02/19 14:03:00 EST, Route to Pharmacy Electronically, [facility], 170, cm, 10/02/19 6:28:00 EST, Height, 140.9, k... Start Date: 10/02/19 Stop Date: 11/01/19 Status: Orderedibuprofen 400 mg oral tablet 400 mg, 1, tablet, By Mouth, Every 8 hours, PRN, not to exceed 3200 mg/day, # 30 tablet, Refills 0, Tot. Refills 0, Maintenance, as needed for pain, 01/18/20 22:09:00 EDT, Route to Pharmacy Electronically, [facility]/pharmacy #[id number], 170, cm, 10/02/19 6:28:00... Start [...] 08/26/18 14:50:46 EST, Route to Pharmacy Electronically, [id number], [facility]/pharmacy #[id number] Start Date: [...] 02/27/20 18:12:00 EDT, 02/17/20 18:12:00 EDT, Tablet, [facility]/pharmacy #[id number], 170, cm, 02/17/20 17:55:00 EDT, Height, [...] 01/18/20 22:09:00 EDT, Route to Pharmacy Electronically, [facility]/pharmacy #[id number], Partial fill upon patient request, [...] 09/12/18 9:26:38 EST, Route to Pharmacy Electronically, [id number], [facility]... Start Date: 09/12/18 Status: OrderedTylenol 325 mg oral capsule 2 capsule = 650 mg, By Mouth, Every 4 hours, PRN as needed for pain, not to exceed 4000 mg/day, # 50capsule, 0 Refills, Maintenance, 01/18/20 22:09:00 EDT, Capsule, [facility]/pharmacy #[id number], 170, cm, 10/02/19 6:28:00 EST, Height, 140.9, kg, 09/27/19 15:50:... Start Date: 01/18/20 Status: OrderedZofran 4 mg oral tablet 1 tablet = 4 mg, By Mouth, Every 8 hours, PRN Vomiting, # 10 tablet, 0 Refills, Maintenance, 01/18/20 22:09:00 EDT, Tablet, [facility]/pharmacy #[id number], 170, cm, 10/02/19 6:28:00 EST, Height, 140.9, kg, 09/27/19 15:50:00 EST, Dry Weight Start Date: 01/18/20 Status: OrderedZofran ODT 4 mg oral tablet, disintegrating 1 tablet = 4 mg, By Mouth, 3 times a day, PRN as needed for nausea/vomiting, # 10 tablet, 0 Refills,Soft Stop, 09/13/19 17:42:00 EST, DIS Tablet, [facility]/pharmacy #[id number], 170, cm, 08/27/19 10:56:00 EST, [...] Range]: Oxygen Saturation [94-100 %] 98 % 96 % 98 % (02/17/20 9:21 PM) (02/17/20 6:45 PM) (02/17/20 6:3 2 PM) Pulse Rate [55-90 bpm] 73 bpm 80 bpm 95 bpm (02/17/20 9:21 PM) (02/17/20 6:45 PM) *H* (02/17/20 6:32 PM ) Blood Pressure [90-138/55-84 mm 113/59 mm Hg 117/60 mm Hg Hg] (02/17/20 9:21 PM) (02/17/20 6:45 PM) Respiratory Rate [16-30 br/min] 16 br/min 18 br/min 18 br/min (02/17/20 9:21 PM) (02/17/20 6:45 PM) (02/17/20 6:3 2 PM) Temperature [96.8-100.4 DegF] 98.2 DegF 98.4 DegF (02/17/20 9:21 PM) (02/17/20 6:45 PM) Mode of Delivery (Oxygen) Room air Room air Room a ir (02/17/20 9:21 PM) (02/17/20 6:45 PM) (02/17/20 6:3 2 PM) Blood pressure sites Arm, left Arm, left (02/17/20 9:21 PM) (02/17/20 6:45 PM) Temperature Route Oral Oral (02/17/20 9:21 PM) (02/17/20 6:45 PM) Social History Social History Type Response Smoking Status Current every day smoker; To bacco user in household: Yes entered on: 05/27/14 Sex
--- OUTSIDE RECORDS SUMMARY | 2022-08-07 20:07 | XMS_ITS | Continuity of Care Document ---
:1975 Author Organization [facility] Address [address] [place] [address]- Care Team Providers Name Role Phone Not on Staff, PCP Primary Care Physician Unavailable Encounter [facility] [place] Date(s): 03/20/21 - 04/19/21 [facility] [address] [place] [id number] Attending Physician: Pattie Todd Admitting Physician: Pattie [...] Refills, Maintenance, Tablet, Route to Pharmacy Electronically, [id number], [facility]/pharmacy #[id number] Start Date: 08/26/18 [...] patch, 0 Refills, Maintenance, 04/08/21 23:31:00 EDT, [facility][id number], Partial fill upon patient request if the [...] 11 Refills, Maintenance, 01/09/21 16:20:00 EDT, Tablet, [facility] #[id number], Partial fill upon patient request if the prescription is for a schedule II opioid drug., 170, cm, 09/04/20... Start Date: 01/09/21 Stop Date: 01/04/22 Status: Orderedmetoprolol 50 mg oral tablet 50 mg, By Mouth, Daily, for hypertension, # 30 tablet, Refills 1, Tot. Refills 1, Maintenance, 08/26/18 14:50:46 EST, Route to Pharmacy Electronically, [id number], [facility]/pharmacy #[id number] Start Date: 08/26/18 [...] 0 Refills, Maintenance, 04/08/21 23:31:00 EDT, Tablet, [facility] #[id number], Partial fill upon patient request, 1 tablet [...] EC Tablet Start Date: 08/26/18 Status: OrderedPen [place], 29 G x 12.7 mm BD Ultra [...] tablet, 0 Refills,Maintenance, 04/03/21 17:35:00 EDT, Tablet, [facility] #[id number], Partial fill upon patient request if the [...]
[2022-08-07] MEDS: oxyCODONE HCl Immed Release 5 MG TABLET 10 MG PO (21:53)
== END 2022-08-07 22:07 | disposition home or self-care (01) ==
PROVIDERS: Emergency Provider Emergency Medicine; PCP Internal Medicine
DX: M54.16 Radiculopathy, lumbar region (principal); R60.0 Localized edema; M25.551 Pain in right hip; F17.210 Nicotine dependence, cigarettes, uncomplicated; Z71.6 Tobacco abuse counseling; Z79.899 Other long term (current) drug therapy
CPT/HCPCS: 72100; 73502; 73564; 93971; 99283; 99284

== ENCOUNTER → 2022-08-30 12:50 | Outpatient (BNVA) | payer BC, MEDICARE, MEDICAID, SELFPAY | PROVIDERS: PCP Internal Medicine; Referring Provider Internal Medicine; Visit Provider Nurse Practitioner Family | DX: R00.2 Palpitations (principal) ==

== ENCOUNTER 2022-09-05 10:22 | Outpatient (REF) | payer BC, MEDICARE, MEDICAID, SELFPAY ==
[2022-09-05 10:35] LABS: MANUAL DIFF FLAG NO
[2022-09-05 11:14] LABS: Basophils Percent Auto 0.4 % (0-2); Eosinophils Percent Auto 0.4 % (0-4); Hematocrit 40.1 % (37.0-47.0); Hemoglobin 13.2 g/dl (12.0-16.0); Imm Gran Abs Auto 0.03 X10*3/uL (0.00-0.03); Imm Gran Pct Auto 0.3 % (0.0-0.4); Lymphocytes Absolute Auto 2.8 X10*3/uL (1.2-4.9); Lymphocytes Percent Auto 30.6 % (20-40); Mean Corpuscular HGB Conc 32.9 g/dl (31.0-35.0); Mean Corpuscular Hemoglobin 30.1 pg (27.0-33.0); Mean Corpuscular Volume 91.6 fL (80.0-98.0); Mean Platelet Volume 10.4 fL (9.4-12.3); Monocytes Absolute Auto 0.5 X10*3/uL (0.1-1.2); Monocytes Percent Auto 5.1 % (2-11); Neutrophils Absolute Auto 5.8 x10*3/uL (2.0-8.3); Neutrophils Percent Auto 63.2 % (45-73); Platelet Count 274 X10*3/uL (160-400); Red Blood Count 4.38 X10*6/uL (4.20-5.50); Red Cell Distribution Width 13.1 % (11.0-16.0); White Blood Count 9.2 X10*3/uL (4.8-10.8)
== END 2022-09-05 10:23 | disposition home or self-care (01) ==
LOC: HO.LABR 10:22
PROVIDERS: PCP Internal Medicine; Visit Provider Clinical Nurse Specialist Psychiatric/Mental Health, Child & Adolescent
DX: F31.32 Bipolar disorder, current episode depressed, moderate (principal); Z79.899 Other long term (current) drug therapy
CPT/HCPCS: 36415; 85025

== ENCOUNTER 2022-10-03 12:05 | Outpatient (REF) | payer BC, MEDICARE, MEDICAID, SELFPAY ==
[2022-10-03 12:21] LABS: MANUAL DIFF FLAG NO
[2022-10-03 13:19] LABS: Basophils Percent Auto 0.4 % (0-2); Eosinophils Absolute Auto 0.1 X10*3/uL (0.0-0.4); Eosinophils Percent Auto 0.7 % (0-4); Hemoglobin 13.4 g/dl (12.0-16.0); Imm Gran Abs Auto 0.04 X10*3/uL (0.00-0.03); Imm Gran Pct Auto 0.4 % (0.0-0.4); Lymphocytes Absolute Auto 2.8 X10*3/uL (1.2-4.9); Lymphocytes Percent Auto 28.8 % (20-40); Mean Corpuscular HGB Conc 32.7 g/dl (31.0-35.0); Mean Corpuscular Hemoglobin 30.3 pg (27.0-33.0); Mean Corpuscular Volume 92.8 fL (80.0-98.0); Mean Platelet Volume 10.5 fL (9.4-12.3); Monocytes Absolute Auto 0.4 X10*3/uL (0.1-1.2); Monocytes Percent Auto 4.1 % (2-11); Neutrophils Absolute Auto 6.3 x10*3/uL (2.0-8.3); Neutrophils Percent Auto 65.6 % (45-73); Platelet Count 269 X10*3/uL (160-400); Red Blood Count 4.42 X10*6/uL (4.20-5.50); Red Cell Distribution Width 13.3 % (11.0-16.0); White Blood Count 9.6 X10*3/uL (4.8-10.8)
[2022-10-07 13:09] LABS: Clozapine (Clozaril) 136 mcg/L; Norclozapine 111 mcg/L (25-400)
== END 2022-10-03 12:06 | disposition home or self-care (01) ==
LOC: HO.LABR 12:05
PROVIDERS: PCP Internal Medicine; Visit Provider Clinical Nurse Specialist Psychiatric/Mental Health, Child & Adolescent
DX: F31.32 Bipolar disorder, current episode depressed, moderate (principal); Z79.899 Other long term (current) drug therapy
CPT/HCPCS: 36415; 80159; 85025

== ENCOUNTER 2022-10-03 12:40 | Emergency (ER) | payer BC, MEDICARE, MEDICAID, SELFPAY ==
--- NOTE | 2022-10-03 13:08 | ED.PSYCH ---
HPI - Psych General Chief Complaint: Psychiatric Symptoms Stated Complaint: anxiety, crisis Time Seen by Provider: 10/03/22 12:59 Source: patient Mode of arrival: ambulatory Limitations: no limitations History of Present Illness HPI Narrative: Patient comes to the emergency room complaining of anxiety. Patient states that over the last 2 through 3 weeks, she has had several stressors at home. Patient states that her daughter moved in with her, she does not do shit at home and is creating problems with her . There was constant fighting. Patient states that she has history attempting suicide by overdosing with her medications. Patient has been reconsidering doing so again. Patient states that she did not hurt herself recently. Denies HI Related Data Home Medications Medication Instructions Recorded Confirmed pantoprazole 40 mg tablet,delayed 40 mg PO BID@0630,1630 11/22/20 08/30/22 release clozapine 100 mg tablet 200 mg PO BEDTIME 11/13/21 08/30/22 lisinopril 40 mg tablet 40 mg PO DAILY 11/13/21 08/30/22 sitagliptin phosphate 50 mg tablet 50 mg PO DAILY 04/17/22 08/30/22 (Januvia) atorvastatin 20 mg tablet 20 mg PO BEDTIME 07/03/22 08/30/22 clonazepam 1 mg tablet 1 mg PO BID anxiety 07/03/22 08/30/22 metformin 1,000 mg tablet 1,000 mg PO BIDWM 07/03/22 08/30/22 metoprolol succinate 50 mg 50 mg PO DAILY 07/03/22 08/30/22 tablet,extended release 24 hr mirabegron 50 mg tablet,extended 50 mg PO DAILY 07/03/22 08/30/22 release 24 hr (Myrbetriq) Allergies Allergy/AdvReac Type Severity Reaction Status Date / Time Penicillins [PENICILLINS] Allergy Severe ANAPHYLAXIS Verified 08/30/22 12:54 adhesive [ADHESIVE] Allergy Unknown RASH Verified 08/30/22 12:54 artichoke [ARTICHOKE] Allergy Unknown RASH Verified 08/30/22 12:54 carbamazepine [From TEGRETOL] Allergy Unknown MIGRAINES Verified 08/30/22 12:54 cariprazine [From VRAYLAR] Allergy Unknown LEG CRAMPS Verified 08/30/22 12:54 fentanyl [FENTANYL] Allergy Unknown RASH Verified 08/30/22 12:54 lamotrigine [From LAMICTAL] Allergy Unknown RASH Verified 08/30/22 12:54 lithium [LITHIUM] AdvReac Severe tremor and Verified 08/30/22 12:54 falls Review of Systems Review of Systems: Constitutional : No Weight loss, No Fever, No Chills, No Night Sweats, No Fatigue, No Malaise ENT/Mouth : No Hearing loss, No Ear Pain, No Nasal Congestion, No Sinus Pain, No Hoarseness, No sore throat, No Rhinorrhea, No Swallowing Difficulty Eyes: No Eye Pain, No Swelling, No Redness, No Foreign Body, No Discharge, No Vision Changes Cardiovascular : No Chest Pain, No SOB, No Dyspnea on Exertion, No Orthopnea, No Edema, No Palpitations Respiratory : No Cough, No Sputum, No Wheezing, No Smoke Exposure, No Dyspnea Gastrointestinal : No Nausea, No Vomiting, No Diarrhea, No Constipation, No abdominal Pain, No Hematochezia, No Melena Genitourinary : no irregular bleeding, No Dysuria, No Urinary Frequency, No Hematuria, No Urinary Incontinence, No Urgency, No Flank Pain, No Urinary Flow Changes, No Hesitancy Musculoskeletal : No joint pain, No Myalgias, No Joint Swelling Skin : No Skin Lesions, No rash Neuro : No Weakness, No Numbness, No Paresthesias, No Loss of Consciousness, No Dizziness, No Headache Psych : Considering hurting herself by overdosing with her pills, complaining of anxiety depression, no HI Heme/Lymph: No Bruising, No Bleeding,No Lymphadenopathy Endocrine : No Polyuria, No Polydipsia, No Temperature Intolerance PMFSH Past Medical History Medical History Anxiety Bipolar disease, chronic Depression Diabetes GERD (gastroesophageal reflux disease) High cholesterol Hypertension Migraines Morbid obesity with BMI of 45.0-49.9, adult Obstructive sleep apnea PCOS (polycystic ovarian syndrome) Pre-diabetes Renal colic Thrombosed external hemorrhoid Surgical History History of cholecystectomy History of dilation and curettage Family History Family History Father Coronary artery disease Other Breast cancer Social History Social History Household Members: Spouse and Children Housing: Apartment Do you presently have visiting nurse or other home services: No Alcohol intake: current Alcohol intake frequency: holidays/special occasions only Alcohol type: hard liquor Patient Tobacco Use Status: Tobacco use Unknown Tobacco use type: Cigarette Cigarette Packs Per Day: 1 Cigarettes Per Day: 20.0 Years Smoked: 30 +/- Substance Use Type: Marijuana Advance Directives: No Healthcare Proxy: No Guardian: No service: No Current occupational status: employed Physical Exam Vital Signs: Vital Signs: Last Vital Signs Temp 98.1 F 10/03/22 13:19 Pulse 107 H 10/03/22 13:19 Resp 18 10/03/22 13:19 BP 147/85 H 10/03/22 13:19 Pulse Ox 94 10/03/22 13:19 O2 Del Method 10/03/22 13:19 BMI result Body Mass Index 43.0 Const: Other: Appearance: Alert. Oriented X3. No acute distress. Eyes: Pupils equal, round and reactive to light. ENT: Pharynx normal. Neck: Normal inspection. Neck supple. No lymph nodes noted. No crepitus CVS: Normal heart rate and rhythm. Pulses normal. Normal S1 and S2 Respiratory: No respiratory distress. Breath sounds normal. No Wheezing. No rales Abdomen: Soft and nontender. No rigidity. No distention. Skin: Skin warm and dry. Normal skin color. Normal skin turgor. Extremities: No lower extremity edema. No Lacerations. No Rash Neuro: Oriented X 3. No motor deficit. No sensory deficit. Moving all extremities. No slurred speech. CN 2 through 12 grossly intact Psych: calm, cooperative, seems very anxious Course Course Course Narrative: Patient calm, cooperative, very anxious -basic labs pending -patient given 2 mg p.o. Ativan -care team consult pending -physician observation started at 13:15 Medications Administered Discontinued Medications Generic Name Dose Route Start Last Admin Trade Name Aydenq PRN Reason Stop Dose Admin Lorazepam 2 mg 10/03/22 13:05 10/03/22 14:07 Lorazepam 1 Mg Tablet PO 10/03/22 13:06 2 mg ONCE ONE Administration Medical Decision Making Medical Decision Making MDM Narrative: -the care team evaluated the patient. It is no longer suicidal, states that he has a lot of anxiety. Patient declined respite or any additional help, patient requesting to be discharged home. Per care team and the patient, she is no longer suicidal. Differential Diagnosis Differential Diagnoses: The differential diagnosis associated with the presentation includes (Anxiety and depression) Admission/Observation Consideration of admission/observation: Escalation of care including admission/observation considered (Patient was an observation until she was seen by the care team) Lab Data MDM Lab Attestation statement: I reviewed the patient's lab results. 10/03/22 14:05 10/03/22 14:05 Labs: Lab Results 10/03/22 10/03/22 10/03/22 Range/Units 13:57 13:57 13:57 WBC (4.8-10.8) X10*3/uL RBC (4.20-5.50) X10*6/uL Hgb (12.0-16.0) g/dl Hct (37.0-47.0) % MCV (80.0-98.0) fL MCH (27.0-33.0) pg MCHC (31.0-35.0) g/dl RDW (11.0-16.0) % Plt Count (160-400) X10*3/uL MPV (9.4-12.3) fL Immature Gran % (Auto) (0.0-0.4) % Neut % (Auto) (45-73) % Lymph % (Auto) (20-40) % [place] % (Auto) (2-11) % Eos % (Auto) (0-4) % Baso % (Auto) (0-2) % Lymph # (Auto) (1.2-4.9) X10*3/uL [place] # (Auto) (0.1-1.2) X10*3/uL Eos # (Auto) (0.0-0.4) X10*3/uL Baso # (Auto) (0.0-0.2) X10*3/uL Abs Immat Gran (auto) (0.00-0.03) X10*3/uL Absolute Neuts (auto) (2.0-8.3) x10*3/uL Absolute Nucleated RBC (0.0-0.012) X10*3/uL Nucleated RBC % (auto) (0.0-0.2) /100WBC Sodium (135-145) mmol/L Potassium (3.3-5.1) mmol/L Chloride (96-108) mmol/L Carbon Dioxide (22-29) mmol/L Anion Gap (12-20) BUN (9-16) mg/dL Creatinine (0.5-1.4) mg/dL Estim Creat Clear Calc Estimated GFR Random Glucose (60-115) mg/dL Calcium (8.4-10.2) mg/dL Total Bilirubin (0.0-1.0) mg/dL Direct Bilirubin (0.0-0.5) mg/dL AST (5-31) U/L ALT (0-31) U/L Alkaline Phosphatase (39-117) U/L Total Protein (6.5-8.0) g/dL Albumin (3.5-5.0) g/dL Urine Color Yellow Urine Appearance Clear Urine pH 6.5 (5.0-9.0) Ur Specific [place] <= 1.005 (1.005-1.025) Urine Protein Negative (Neg-Trace) mg/dL Urine Glucose (UA) Negative (Negative) mg/dL Urine Ketones Negative (Negative) mg/dL Urine Blood Negative (Negative) Urine Nitrite Negative (Negative) Ur Leukocyte Esterase Negative (Negative) Urine Opiates Screen Not Detected (Not Detect) Urine Fentanyl Screen Not Detected (Not Detect) Ur Barbiturates Screen Not Detected (Not Detect) Ur Phencyclidine Scrn Not Detected (Not Detect) Ur Amphetamines Screen Not Detected (Not Detect) U Benzodiazepines Scrn Not Detected (Not Detect) Urine Cocaine Screen Not Detected (Not Detect) U Marijuana (THC) Screen POSITIVE H (Not Detect) Ethyl Alcohol mg/dL COVID-19 (ANA) Negative (Negative) COVID-19 Clin Com See Note 10/03/22 10/03/22 10/03/22 Range/Units 14:05 14:05 14:05 WBC 9.0 (4.8-10.8) X10*3/uL RBC 4.30 (4.20-5.50) X10*6/uL Hgb 13.1 (12.0-16.0) g/dl Hct 39.0 (37.0-47.0) % MCV 90.7 (80.0-98.0) fL MCH 30.5 (27.0-33.0) pg MCHC 33.6 (31.0-35.0) g/dl RDW 13.4 (11.0-16.0) % Plt Count 236 (160-400) X10*3/uL MPV 9.6 (9.4-12.3) fL Immature Gran % (Auto) 0.2 (0.0-0.4) % Neut % (Auto) 67.4 (45-73) % Lymph % (Auto) 26.8 (20-40) % [place] % (Auto) 4.5 (2-11) % Eos % (Auto) 0.8 (0-4) % Baso % (Auto) 0.3 (0-2) % Lymph # (Auto) 2.4 (1.2-4.9) X10*3/uL [place] # (Auto) 0.4 (0.1-1.2) X10*3/uL Eos # (Auto) 0.1 (0.0-0.4) X10*3/uL Baso # (Auto) 0.0 (0.0-0.2) X10*3/uL Abs Immat Gran (auto) 0.02 (0.00-0.03) X10*3/uL Absolute Neuts (auto) 6.1 (2.0-8.3) x10*3/uL Absolute Nucleated RBC 0.000 (0.0-0.012) X10*3/uL Nucleated RBC % (auto) 0.0 (0.0-0.2) /100WBC Sodium 143 (135-145) mmol/L Potassium 4.2 (3.3-5.1) mmol/L Chloride 107 (96-108) mmol/L Carbon Dioxide 24 (22-29) mmol/L Anion Gap 16 (12-20) BUN 9 (9-16) mg/dL Creatinine 0.74 (0.5-1.4) mg/dL Estim Creat Clear Calc 128.9 Estimated GFR > 60 Random Glucose 178 H (60-115) mg/dL Calcium 9.1 D (8.4-10.2) mg/dL Total Bilirubin 0.3 (0.0-1.0) mg/dL Direct Bilirubin < 0.2 (0.0-0.5) mg/dL AST 19 (5-31) U/L ALT 32 H (0-31) U/L Alkaline Phosphatase 71 (39-117) U/L Total Protein 6.4 L (6.5-8.0) g/dL Albumin 4.1 (3.5-5.0) g/dL Urine Color Urine Appearance Urine pH (5.0-9.0) Ur Specific [place] (1.005-1.025) Urine Protein (Neg-Trace) mg/dL Urine Glucose (UA) (Negative) mg/dL Urine Ketones (Negative) mg/dL Urine Blood (Negative) Urine Nitrite (Negative) Ur Leukocyte Esterase (Negative) Urine Opiates Screen (Not Detect) Urine Fentanyl Screen (Not Detect) Ur Barbiturates Screen (Not Detect) Ur Phencyclidine Scrn (Not Detect) Ur Amphetamines Screen (Not Detect) U Benzodiazepines Scrn (Not Detect) Urine Cocaine Screen (Not Detect) U Marijuana (THC) Screen (Not Detect) Ethyl Alcohol < 10 mg/dL COVID-19 (ANA) (Negative) COVID-19 Clin Com Discharge Plan Discharge Clinical Impression: Anxiety with depression Patient Disposition: Home, Self-Care Instructions: Anxiety (ED), Depression (ED) Additional Instructions: Please follow-up with your primary care physician tomorrow. If you have any worsening or new symptoms, please return to the emergency room or call 911 Prescriptions: No Action Myrbetriq 50 mg tablet extended release 24 hr 50 mg PO DAILY clozapine 100 mg tablet 200 mg PO BEDTIME lisinopril 40 mg tablet 40 mg PO DAILY atorvastatin 20 mg tablet 20 mg PO BEDTIME clonazepam 1 mg tablet 1 mg PO BID metformin 1,000 mg tablet 1,000 mg PO BIDWM metoprolol succinate 50 mg tablet extended release 24 hr 50 mg PO DAILY Januvia 50 mg tablet 50 mg PO DAILY pantoprazole 40 mg tablet,delayed release (DR/EC) 40 mg PO BID@3385,1139 Interventions: [place]-Suicide Risk Severity Scale Last Done: 10/03/22 15:32
[2022-10-03 13:19] VITALS: BP 147/85; PULSE 107; RESP 18; TEMP 36.7; O2SAT 94; BMI 43.0
[2022-10-03] MEDS: LORazepam 1 MG TABLET 2 MG PO (14:07)
[2022-10-03 14:12] LABS: MANUAL DIFF FLAG NO
[2022-10-03 14:17] LABS: Basophils Percent Auto 0.3 % (0-2); Eosinophils Absolute Auto 0.1 X10*3/uL (0.0-0.4); Eosinophils Percent Auto 0.8 % (0-4); Hemoglobin 13.1 g/dl (12.0-16.0); Imm Gran Abs Auto 0.02 X10*3/uL (0.00-0.03); Imm Gran Pct Auto 0.2 % (0.0-0.4); Lymphocytes Absolute Auto 2.4 X10*3/uL (1.2-4.9); Lymphocytes Percent Auto 26.8 % (20-40); Mean Corpuscular HGB Conc 33.6 g/dl (31.0-35.0); Mean Corpuscular Hemoglobin 30.5 pg (27.0-33.0); Mean Corpuscular Volume 90.7 fL (80.0-98.0); Mean Platelet Volume 9.6 fL (9.4-12.3); Monocytes Absolute Auto 0.4 X10*3/uL (0.1-1.2); Monocytes Percent Auto 4.5 % (2-11); Neutrophils Absolute Auto 6.1 x10*3/uL (2.0-8.3); Neutrophils Percent Auto 67.4 % (45-73); Platelet Count 236 X10*3/uL (160-400); Red Cell Distribution Width 13.4 % (11.0-16.0)
[2022-10-03 14:20] LABS: Appearance Urine Clear; Color Urine Yellow; Glucose Urine UA Negative (Negative); Leukocyte Esterase Urine Negative (Negative); Nitrite Urine Negative (Negative); PH 6.5 (5.0-9.0); Specific Gravity - Urine <= 1.005 (1.005-1.025); Urine Blood Negative (Negative); Urine Ketones Negative (Negative); Urine Protein Negative (Neg-Trace)
[2022-10-03 14:30] LABS: COVID-19 Test Negative (Negative); IDNOW Serial# 16C4AD1C
[2022-10-03 14:33] LABS: Amphetamine Screen Urine Not Detected (Not Detect); Barbiturates, Urine Not Detected (Not Detect); Benzodiazepines Screen Urine Not Detected (Not Detect); Cannabinoid Screen Urine POSITIVE (Not Detect); Cocaine Screen Urine Not Detected (Not Detect); Fentanyl, urine Not Detected (Not Detect); Opiate Screen Urine Not Detected (Not Detect); Phencyclidine Screen Urine Not Detected (Not Detect)
[2022-10-03 14:38] LABS: Alanine Aminotransferase 32 U/L (0-31); Albumin Level 4.1 g/dL (3.5-5.0); Alkaline Phosphatase 71 U/L (39-117); Anion Gap 16 (12-20); Aspartate Amino Transferase 19 U/L (5-31); Bilirubin Direct < 0.2 mg/dL (0.0-0.5); Bilirubin Total 0.3 mg/dL (0.0-1.0); Blood Urea Nitrogen 9 mg/dL (9-16); Calcium 9.1 mg/dL (8.4-10.2); Carbon Dioxide 24 mmol/L (22-29); Chloride 107 mmol/L (96-108); Creatinine Clr Calc Pharmacy 128.9; Estimated Glomerular Filt Rate > 60; Glucose Random 178 mg/dL (60-115); Potassium 4.2 mmol/L (3.3-5.1); Sodium 143 mmol/L (135-145); Total Protein 6.4 g/dL (6.5-8.0)
[2022-10-03 14:43] LABS: Ethanol < 10 mg/dL
== END 2022-10-03 17:38 | disposition home or self-care (01) ==
PROVIDERS: Emergency Provider Emergency Medicine; PCP Internal Medicine
DX: F41.9 Anxiety disorder, unspecified (principal); F31.9 Bipolar disorder, unspecified; R45.851 Suicidal ideations; Z20.822 Contact with and (suspected) exposure to COVID-19; E11.9 Type 2 diabetes mellitus without complications; I10 Essential (primary) hypertension; E78.5 Hyperlipidemia, unspecified; F17.210 Nicotine dependence, cigarettes, uncomplicated; F12.90 Cannabis use, unspecified, uncomplicated; E66.9 Obesity, unspecified; Z68.41 Body mass index [BMI] 40.0-44.9, adult; Z91.51 Personal history of suicidal behavior; Z79.899 Other long term (current) drug therapy; Z79.02 Long term (current) use of antithrombotics/antiplatelets; Z79.84 Long term (current) use of oral hypoglycemic drugs
CPT/HCPCS: 36415; 80048; 80076; 80307; 81003; 82077; 85025; 87635; 99284; S9485

== ENCOUNTER 2022-10-06 18:11 | Emergency (ER) | payer BC, MEDICARE, MEDICAID, SELFPAY ==
--- NOTE | ~2022-10-06 | CT_ITS ---
EXAMINATION: CT ABDOMEN AND PELVIS WITHOUT CONTRAST CLINICAL INFORMATION: right sided abd pain . COMPARISON: 12/22/2021 CT scan. TECHNIQUE: Multidetector volumetric imaging was performed from the superior aspect of the liver through the pubic symphysis without contrast per renal stone protocol. Sagittal and coronal reformatted images were obtained on the technologist workstation. This CT examination was performed using dose optimization techniques as appropriate, variously including the following: *Automated exposure control *Adjustment of mA and/or kV according to patient size (this includes techniques or standardized protocols for targeted exams where dose is matched to indication/reason for exam; i.e. extremities or head) *Use of iterative reconstruction technique DLP: 1529 mGy-cm. FINDINGS: LUNG BASES: The visualized lung bases are unremarkable. LIVER, GALLBLADDER, BILIARY TREE: Diffuse fatty infiltration of the bladder but no focal hepatic lesion nor biliary ductal dilatation the gallbladder surgically absent. PANCREAS: Unremarkable. SPLEEN: Unremarkable. ADRENAL GLANDS: Unremarkable. 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 It measures 13.3 cm in maximal diameter low-attenuation possible cyst in the posterior midpole difficult to define further on this noncontrast study. This was better seen on the prior contrast-enhanced study. I do not appreciate any hydronephrosis although there is some mild perinephric stranding. Ureter is diminutive in caliber difficult to follow but there is no evidence for ureteric calculi or intrarenal calculi on the study. The contralateral left kidney measures approximately 12.2 cm in length. Low-attenuation probable cysts seen in the medial upper pole of the left kidney but again difficult to define further on this noncontrast examination this is better delineated on the prior contrast-enhanced study There is a mild extrarenal pelvis but no hydronephrosis or obstructive changes. Likewise the left ureter is followed throughout its course without ureteric calculi. BLADDER: Unremarkable. GASTROINTESTINAL TRACT: A few scattered colonic diverticula are noted but there is no colonic wall thickening or pericolonic inflammatory change. Normal-appearing appendix in the right lower quadrant. Visualized small bowel unremarkable ABDOMINAL WALL: No significant hernia is appreciated. LYMPHOVASCULAR STRUCTURES: Minimal vascular calcification within the aorta iliac system. No bulky adenopathy. PELVIC VISCERA: Unremarkable. OSSEUS STRUCTURES: Degenerative changes more so at L5/S1. CT/CT abdomen pelvis wo IV con IMPRESSION: I do not appreciate any acute intra-abdominal process. There are chronic appearing changes as described above. I do not appreciate any obstructive changes to the kidneys or ureters.
[2022-10-06 18:15] VITALS: BP 146/83; PULSE 93; RESP 20; TEMP 36.7; O2SAT 97; BMI 49.1
--- NOTE | 2022-10-06 18:15 | ED_ITS ---
HPI - Abdominal Pain General Chief Complaint: Abdominal Pain <JUAN C Mars - Last Filed: 10/06/22 18:18> Stated Complaint: abd pain <JUAN C Mars - Last Filed: 10/06/22 18:18> Time Seen by Provider: 10/06/22 20:57 <JUAN C Mars - Last Filed: 10/06/22 18:18> Source: patient <Finn Yoo MD - Last Filed: 10/07/22 00:58> Mode of arrival: ambulatory <Finn Yoo MD - Last Filed: 10/07/22 00:58> Limitations: no limitations <Finn Yoo MD - Last Filed: 10/07/22 00:58> History of Present Illness HPI narrative: Patient history of gastroparesis and IBS been having diffuse abdominal pain for last 5 days feels burning and cramping sensation with nausea vomiting and diarrhea no fever no chills no blood in the stool patient had multiple CT scan the past which were negative today prior to my evaluation patient CT scan was done which was negative <Finn Yoo MD - Last Filed: 10/07/22 00:58> Related Data Home Medications: Home Medications Medication Instructions Recorded Confirmed pantoprazole 40 mg tablet,delayed 40 mg PO BID@0630,1630 11/22/20 08/30/22 release clozapine 100 mg tablet 200 mg PO BEDTIME 11/13/21 08/30/22 lisinopril 40 mg tablet 40 mg PO DAILY 11/13/21 08/30/22 sitagliptin phosphate 50 mg tablet 50 mg PO DAILY 04/17/22 08/30/22 (Januvia) atorvastatin 20 mg tablet 20 mg PO BEDTIME 07/03/22 08/30/22 clonazepam 1 mg tablet 1 mg PO BID anxiety 07/03/22 08/30/22 metformin 1,000 mg tablet 1,000 mg PO BIDWM 07/03/22 08/30/22 metoprolol succinate 50 mg 50 mg PO DAILY 07/03/22 08/30/22 tablet,extended release 24 hr mirabegron 50 mg tablet,extended 50 mg PO DAILY 07/03/22 08/30/22 release 24 hr (Myrbetriq) Previous Rx's Medication Instructions Recorded dicyclomine 20 mg tablet 20 mg PO QID PRN abdominal pain 10/06/22 #20 tabs ondansetron 4 mg disintegrating 4 mg PO Q6-8H PRN nausea and 10/06/22 tablet vomiting #7 tabs <JUAN C Mars - Last Filed: 10/06/22 18:18> Allergies/Adverse Reactions: Allergies Allergy/AdvReac Type Severity Reaction Status Date / Time Penicillins [PENICILLINS] Allergy Severe ANAPHYLAXIS Verified 08/30/22 12:54 adhesive [ADHESIVE] Allergy Unknown RASH Verified 08/30/22 12:54 artichoke [ARTICHOKE] Allergy Unknown RASH Verified 08/30/22 12:54 carbamazepine [From TEGRETOL] Allergy Unknown MIGRAINES Verified 08/30/22 12:54 cariprazine [From VRAYLAR] Allergy Unknown LEG CRAMPS Verified 08/30/22 12:54 fentanyl [FENTANYL] Allergy Unknown RASH Verified 08/30/22 12:54 lamotrigine [From LAMICTAL] Allergy Unknown RASH Verified 08/30/22 12:54 lithium [LITHIUM] AdvReac Severe tremor and Verified 08/30/22 12:54 falls <JUAN C Mars - Last Filed: 10/06/22 18:18> Review of Systems Review of Systems Yes all other systems are reviewed and are negative <Finn Yoo MD - Last Filed: 10/07/22 00:58> [facility] Past Medical History Medical History: Medical History Anxiety Bipolar disease, chronic Depression Diabetes GERD (gastroesophageal reflux disease) High cholesterol Hypertension Migraines Morbid obesity with BMI of 45.0-49.9, adult Obstructive sleep apnea PCOS (polycystic ovarian syndrome) Pre-diabetes Renal colic Thrombosed external hemorrhoid <JUAN C Mars - Last Filed: 10/06/22 18:18> Surgical History: Surgical History History of cholecystectomy History of dilation and curettage <JUAN C Mars - Last Filed: 10/06/22 18:18> Family History Family History: Family History Father Coronary artery disease Other Breast cancer <JUAN C Mars - Last Filed: 10/06/22 18:18> Social History Social History: Social History Household Members: Spouse and Children Housing: Apartment Do you presently have visiting nurse or other home services: No Alcohol intake: current Alcohol intake frequency: holidays/special occasions only Alcohol type: hard liquor Patient Tobacco Use Status: Tobacco use Unknown Tobacco use type: Cigarette Cigarette Packs Per Day: 1 Cigarettes Per Day: 20.0 Years Smoked: 30 +/- Smoked in Last 30 Days: Yes Use of substances other than those prescribed or required for medical reasons: Yes Substance Use Type: Marijuana Advance Directives: No Advance Directives Information Provided: No Patient : No service: No Current occupational status: employed <JUAN C Mars - Last Filed: 10/06/22 18:18> Physical Exam ED Vital Signs: Vital Signs - 24 hr 10/06/22 18:15 Temperature 98.0 F Pulse Rate 93 Respiratory Rate 20 Blood Pressure 146/83 H Pulse Oximetry 97 Oxygen Delivery Method Room Air BMI result Body Mass Index 49.1 <JUAN C Mars - Last Filed: 10/06/22 18:18> Vital Signs - 24 hr 10/06/22 18:15 Temperature 98.0 F Pulse Rate 93 Respiratory Rate 20 Blood Pressure 146/83 H Pulse Oximetry 97 Oxygen Delivery Method Room Air BMI result Body Mass Index 49.1 <Finn Yoo MD - Last Filed: 10/07/22 00:58> Appearance: Alert. Oriented X3. No acute distress. Obese Eyes: PERRLA, No Nystagmus ENT: Pharynx normal. Oral Mucosa moist Neck: Normal inspection. Neck supple. CVS: Normal heart rate and rhythm. Pulses normal. Respiratory: No respiratory distress. Equal air entry bilateral, no wheezing/rales/rhonchi Abdomen: Soft diffuse tenderness no rebound or guarding Bowel sounds are present, no mass palpable, no CVA tenderness Skin: Skin warm and dry. Normal skin color. Normal skin turgor. Extremities: No lower extremity edema. No calf tenderness Neuro: Oriented X 3. No motor deficit. <Finn Yoo MD - Last Filed: 10/07/22 00:58> Course Course Course Narrative: RME 18:16 47yoF with a PMHx of anxiety, bipolar, depression, GERD, HLD, HTN, migraines, obesity, JILLIAN, PCOS who is presenting to the ED with complaints of right-sided abdominal pain with nausea/vomiting/diarrhea since Saturday worse today. Denies recent travel or sick contacts. Reports subjective fevers. Denies black or bloody emesis or stools. Plan: Labs, UA, CT scan abdomen pelvis with IV contrast along with COVID/RSV/flu swab ordered at this time. Patient sent back to the waiting to be evaluated the ED. <JUNA C Mars - Last Filed: 10/06/22 18:18> Medical Decision Making Medical Decision Making MDM Narrative: Patient's CT scan of the negative for acute pathology labs are stable discharge patient home on [place] advised to follow-up with her PCP/GI <Finn Yoo MD - Last Filed: 10/07/22 00:58> Lab Data [facility] Lab Attestation statement: I reviewed the patient's lab results. <Finn Yoo MD - Last Filed: 10/07/22 00:58> Result Diagrams: 10/06/22 18:52 10/06/22 18:52 <JUAN C Mars - Last Filed: 10/06/22 18:18> Labs: Lab Results 10/06/22 10/06/22 10/06/22 Range/Units 18:52 18:52 18:52 WBC 11.8 H (4.8-10.8) X10*3/uL RBC 4.34 (4.20-5.50) X10*6/uL Hgb 13.0 (12.0-16.0) g/dl Hct 39.8 (37.0-47.0) % MCV 91.7 (80.0-98.0) fL MCH 30.0 (27.0-33.0) pg MCHC 32.7 (31.0-35.0) g/dl RDW 13.2 (11.0-16.0) % Plt Count 250 (160-400) X10*3/uL MPV 9.5 (9.4-12.3) fL Immature Gran % (Auto) 0.2 (0.0-0.4) % Neut % (Auto) 60.7 (45-73) % Lymph % (Auto) 33.2 (20-40) % [place] % (Auto) 4.8 (2-11) % Eos % (Auto) 0.8 (0-4) % Baso % (Auto) 0.3 (0-2) % Lymph # (Auto) 3.9 (1.2-4.9) X10*3/uL [place] # (Auto) 0.6 (0.1-1.2) X10*3/uL Eos # (Auto) 0.1 (0.0-0.4) X10*3/uL Baso # (Auto) 0.0 (0.0-0.2) X10*3/uL Abs Immat Gran (auto) 0.02 (0.00-0.03) X10*3/uL Absolute Neuts (auto) 7.2 (2.0-8.3) x10*3/uL Absolute Nucleated RBC 0.000 (0.0-0.012) X10*3/uL Nucleated RBC % (auto) 0.0 (0.0-0.2) /100WBC PT 10.7 (10.0-13.1) SEC INR 0.9 (0.9-1.1) Sodium 142 (135-145) mmol/L Potassium 3.9 (3.3-5.1) mmol/L Chloride 105 (96-108) mmol/L Carbon Dioxide 25 (22-29) mmol/L Anion Gap 16 (12-20) BUN 8 L (9-16) mg/dL Creatinine 0.68 (0.5-1.4) mg/dL Estim Creat Clear Calc 151.6 Estimated GFR > 60 Random Glucose 77 (60-115) mg/dL Calcium 9.0 (8.4-10.2) mg/dL Magnesium 1.9 (1.6-2.6) mg/dL Total Bilirubin 0.3 (0.0-1.0) mg/dL AST 21 (5-31) U/L ALT 35 H (0-31) U/L Alkaline Phosphatase 81 (39-117) U/L Total Protein 7.1 (6.5-8.0) g/dL Albumin 4.5 (3.5-5.0) g/dL Lipase 39 (8-78) U/L Beta HCG, Quant 3 mIU/mL Urine Color Urine Appearance Urine pH (5.0-9.0) Ur Specific [place] (1.005-1.025) Urine Protein (Neg-Trace) mg/dL Urine Glucose (UA) (Negative) mg/dL Urine Ketones (Negative) mg/dL Urine Blood (Negative) Urine Nitrite (Negative) Ur Leukocyte Esterase (Negative) Ethyl Alcohol < 10 mg/dL Influenza Type A (PCR) (Negative) Influenza Type B (PCR) (Negative) RSV RNA Qual (PCR) (Negative) SARS-CoV-2 RNA (RT-PCR) (Negative) 10/06/22 10/06/22 Range/Units 18:52 18:54 WBC (4.8-10.8) X10*3/uL RBC (4.20-5.50) X10*6/uL Hgb (12.0-16.0) g/dl Hct (37.0-47.0) % MCV (80.0-98.0) fL MCH (27.0-33.0) pg MCHC (31.0-35.0) g/dl RDW (11.0-16.0) % Plt Count (160-400) X10*3/uL MPV (9.4-12.3) fL Immature Gran % (Auto) (0.0-0.4) % Neut % (Auto) (45-73) % Lymph % (Auto) (20-40) % [place] % (Auto) (2-11) % Eos % (Auto) (0-4) % Baso % (Auto) (0-2) % Lymph # (Auto) (1.2-4.9) X10*3/uL [place] # (Auto) (0.1-1.2) X10*3/uL Eos # (Auto) (0.0-0.4) X10*3/uL Baso # (Auto) (0.0-0.2) X10*3/uL Abs Immat Gran (auto) (0.00-0.03) X10*3/uL Absolute Neuts (auto) (2.0-8.3) x10*3/uL Absolute Nucleated RBC (0.0-0.012) X10*3/uL Nucleated RBC % (auto) (0.0-0.2) /100WBC PT (10.0-13.1) SEC INR (0.9-1.1) Sodium (135-145) mmol/L Potassium (3.3-5.1) mmol/L Chloride (96-108) mmol/L Carbon Dioxide (22-29) mmol/L Anion Gap (12-20) BUN (9-16) mg/dL Creatinine (0.5-1.4) mg/dL Estim Creat Clear Calc Estimated GFR Random Glucose (60-115) mg/dL Calcium (8.4-10.2) mg/dL Magnesium (1.6-2.6) mg/dL Total Bilirubin (0.0-1.0) mg/dL AST (5-31) U/L ALT (0-31) U/L Alkaline Phosphatase (39-117) U/L Total Protein (6.5-8.0) g/dL Albumin (3.5-5.0) g/dL Lipase (8-78) U/L Beta HCG, Quant mIU/mL Urine Color Yellow Urine Appearance Clear Urine pH 7.0 (5.0-9.0) Ur Specific [place] <= 1.005 (1.005-1.025) Urine Protein Negative (Neg-Trace) mg/dL Urine Glucose (UA) Negative (Negative) mg/dL Urine Ketones Negative (Negative) mg/dL Urine Blood Negative (Negative) Urine Nitrite Negative (Negative) Ur Leukocyte Esterase Negative (Negative) Ethyl Alcohol mg/dL Influenza Type A (PCR) NEGATIVE (Negative) Influenza Type B (PCR) NEGATIVE (Negative) RSV RNA Qual (PCR) NEGATIVE (Negative) SARS-CoV-2 RNA (RT-PCR) NEGATIVE (Negative) <JUAN C Mars - Last Filed: 10/06/22 18:18> Lab Results 10/06/22 10/06/22 10/06/22 Range/Units 18:52 18:52 18:52 WBC 11.8 H (4.8-10.8) X10*3/uL RBC 4.34 (4.20-5.50) X10*6/uL Hgb 13.0 (12.0-16.0) g/dl Hct 39.8 (37.0-47.0) % MCV 91.7 (80.0-98.0) fL MCH 30.0 (27.0-33.0) pg MCHC 32.7 (31.0-35.0) g/dl RDW 13.2 (11.0-16.0) % Plt Count 250 (160-400) X10*3/uL MPV 9.5 (9.4-12.3) fL Immature Gran % (Auto) 0.2 (0.0-0.4) % Neut % (Auto) 60.7 (45-73) % Lymph % (Auto) 33.2 (20-40) % [place] % (Auto) 4.8 (2-11) % Eos % (Auto) 0.8 (0-4) % Baso % (Auto) 0.3 (0-2) % Lymph # (Auto) 3.9 (1.2-4.9) X10*3/uL [place] # (Auto) 0.6 (0.1-1.2) X10*3/uL Eos # (Auto) 0.1 (0.0-0.4) X10*3/uL Baso # (Auto) 0.0 (0.0-0.2) X10*3/uL Abs Immat Gran (auto) 0.02 (0.00-0.03) X10*3/uL Absolute Neuts (auto) 7.2 (2.0-8.3) x10*3/uL Absolute Nucleated RBC 0.000 (0.0-0.012) X10*3/uL Nucleated RBC % (auto) 0.0 (0.0-0.2) /100WBC PT 10.7 (10.0-13.1) SEC INR 0.9 (0.9-1.1) Sodium 142 (135-145) mmol/L Potassium 3.9 (3.3-5.1) mmol/L Chloride 105 (96-108) mmol/L Carbon Dioxide 25 (22-29) mmol/L Anion Gap 16 (12-20) BUN 8 L (9-16) mg/dL Creatinine 0.68 (0.5-1.4) mg/dL Estim Creat Clear Calc 151.6 Estimated GFR > 60 Random Glucose 77 (60-115) mg/dL Calcium 9.0 (8.4-10.2) mg/dL Magnesium 1.9 (1.6-2.6) mg/dL Total Bilirubin 0.3 (0.0-1.0) mg/dL AST 21 (5-31) U/L ALT 35 H (0-31) U/L Alkaline Phosphatase 81 (39-117) U/L Total Protein 7.1 (6.5-8.0) g/dL Albumin 4.5 (3.5-5.0) g/dL Lipase 39 (8-78) U/L Beta HCG, Quant 3 mIU/mL Urine Color Urine Appearance Urine pH (5.0-9.0) Ur Specific [place] (1.005-1.025) Urine Protein (Neg-Trace) mg/dL Urine Glucose (UA) (Negative) mg/dL Urine Ketones (Negative) mg/dL Urine Blood (Negative) Urine Nitrite (Negative) Ur Leukocyte Esterase (Negative) Ethyl Alcohol < 10 mg/dL Influenza Type A (PCR) (Negative) Influenza Type B (PCR) (Negative) RSV RNA Qual (PCR) (Negative) SARS-CoV-2 RNA (RT-PCR) (Negative) 10/06/22 10/06/22 Range/Units 18:52 18:54 WBC (4.8-10.8) X10*3/uL RBC (4.20-5.50) X10*6/uL Hgb (12.0-16.0) g/dl Hct (37.0-47.0) % MCV (80.0-98.0) fL MCH (27.0-33.0) pg MCHC (31.0-35.0) g/dl RDW (11.0-16.0) % Plt Count (160-400) X10*3/uL MPV (9.4-12.3) fL Immature Gran % (Auto) (0.0-0.4) % Neut % (Auto) (45-73) % Lymph % (Auto) (20-40) % [place] % (Auto) (2-11) % Eos % (Auto) (0-4) % Baso % (Auto) (0-2) % Lymph # (Auto) (1.2-4.9) X10*3/uL [place] # (Auto) (0.1-1.2) X10*3/uL Eos # (Auto) (0.0-0.4) X10*3/uL Baso # (Auto) (0.0-0.2) X10*3/uL Abs Immat Gran (auto) (0.00-0.03) X10*3/uL Absolute Neuts (auto) (2.0-8.3) x10*3/uL Absolute Nucleated RBC (0.0-0.012) X10*3/uL Nucleated RBC % (auto) (0.0-0.2) /100WBC PT (10.0-13.1) SEC INR (0.9-1.1) Sodium (135-145) mmol/L Potassium (3.3-5.1) mmol/L Chloride (96-108) mmol/L Carbon Dioxide (22-29) mmol/L Anion Gap (12-20) BUN (9-16) mg/dL Creatinine (0.5-1.4) mg/dL Estim Creat Clear Calc Estimated GFR Random Glucose (60-115) mg/dL Calcium (8.4-10.2) mg/dL Magnesium (1.6-2.6) mg/dL Total Bilirubin (0.0-1.0) mg/dL AST (5-31) U/L ALT (0-31) U/L Alkaline Phosphatase (39-117) U/L Total Protein (6.5-8.0) g/dL Albumin (3.5-5.0) g/dL Lipase (8-78) U/L Beta HCG, Quant mIU/mL Urine Color Yellow Urine Appearance Clear Urine pH 7.0 (5.0-9.0) Ur Specific [place] <= 1.005 (1.005-1.025) Urine Protein Negative (Neg-Trace) mg/dL Urine Glucose (UA) Negative (Negative) mg/dL Urine Ketones Negative (Negative) mg/dL Urine Blood Negative (Negative) Urine Nitrite Negative (Negative) Ur Leukocyte Esterase Negative (Negative) Ethyl Alcohol mg/dL Influenza Type A (PCR) NEGATIVE (Negative) Influenza Type B (PCR) NEGATIVE (Negative) RSV RNA Qual (PCR) NEGATIVE (Negative) SARS-CoV-2 RNA (RT-PCR) NEGATIVE (Negative) <Finn Yoo MD - Last Filed: 10/07/22 00:58> Medications Administered Discontinued Medications Generic Name Dose Route Start Last Admin Trade Name Freq PRN Reason Stop Dose Admin Dicyclomine HCl 20 mg 10/06/22 21:37 10/06/22 21:44 Dicyclomine Hcl 10 Mg Capsule PO 10/06/22 21:38 20 mg ONCE ONE Administration Oxycodone HCl 10 mg 10/06/22 21:37 10/06/22 21:43 Oxycodone Hcl Immed Release 5 Mg Tablet PO 10/06/22 21:38 10 mg ONCE ONE Administration <JUAN C Mars - Last Filed: 10/06/22 18:18> Medications Administered Discontinued Medications Generic Name Dose Route Start Last Admin Trade Name Freq PRN Reason Stop Dose Admin Dicyclomine HCl 20 mg 10/06/22 21:37 10/06/22 21:44 Dicyclomine Hcl 10 Mg Capsule PO 10/06/22 21:38 20 mg ONCE ONE Administration Oxycodone HCl 10 mg 10/06/22 21:37 10/06/22 21:43 Oxycodone Hcl Immed Release 5 Mg Tablet PO 10/06/22 21:38 10 mg ONCE ONE Administration <Finn Yoo MD - Last Filed: 10/07/22 00:58> Discharge Plan Discharge Clinical Impression: Irritable bowel syndrome <JUAN C Mars - Last Filed: 10/06/22 18:18> Patient Disposition: Home, Self-Care <JUAN C Mars - Last Filed: 10/06/22 18:18> Instructions: Irritable Bowel Syndrome (ED) <JUAN C Mars - Last Filed: 10/06/22 18:18> Additional Instructions: Drink plenty of fluids Medication as prescribed for IBS For medication for nausea 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 <JUAN C Mars - Last Filed: 10/06/22 18:18> Prescriptions: New dicyclomine 20 mg tablet 20 mg PO QID PRN (Reason: abdominal pain) Qty: 20 0RF ondansetron 4 mg tablet,disintegrating 4 mg PO Q6-8H PRN (Reason: nausea and vomiting) Qty: 7 0RF No Action Myrbetriq 50 mg tablet extended release 24 hr 50 mg PO DAILY clozapine 100 mg tablet 200 mg PO BEDTIME lisinopril 40 mg tablet 40 mg PO DAILY atorvastatin 20 mg tablet 20 mg PO BEDTIME clonazepam 1 mg tablet 1 mg PO BID metformin 1,000 mg tablet 1,000 mg PO BIDWM metoprolol succinate 50 mg tablet extended release 24 hr 50 mg PO DAILY Januvia 50 mg tablet 50 mg PO DAILY pantoprazole 40 mg tablet,delayed release (DR/EC) 40 mg PO BID@0630,1630 <JUAN C Mars - Last Filed: 10/06/22 18:18> Interventions: ED Discharge Assessment Last Done: 10/06/22 21:51 <JUAN C Mars - Last Filed: 10/06/22 18:18> Discharge Date/Time: 10/06/22 21:52 <JUAN C Mars - Last Filed: 10/06/22 18:18>
[2022-10-06 19:00] LABS: MANUAL DIFF FLAG NO
[2022-10-06 19:03] LABS: Basophils Percent Auto 0.3 % (0-2); Eosinophils Absolute Auto 0.1 X10*3/uL (0.0-0.4); Eosinophils Percent Auto 0.8 % (0-4); Hematocrit 39.8 % (37.0-47.0); Imm Gran Abs Auto 0.02 X10*3/uL (0.00-0.03); Imm Gran Pct Auto 0.2 % (0.0-0.4); Lymphocytes Absolute Auto 3.9 X10*3/uL (1.2-4.9); Lymphocytes Percent Auto 33.2 % (20-40); Mean Corpuscular HGB Conc 32.7 g/dl (31.0-35.0); Mean Corpuscular Volume 91.7 fL (80.0-98.0); Mean Platelet Volume 9.5 fL (9.4-12.3); Monocytes Absolute Auto 0.6 X10*3/uL (0.1-1.2); Monocytes Percent Auto 4.8 % (2-11); Neutrophils Absolute Auto 7.2 x10*3/uL (2.0-8.3); Neutrophils Percent Auto 60.7 % (45-73); Platelet Count 250 X10*3/uL (160-400); Red Blood Count 4.34 X10*6/uL (4.20-5.50); Red Cell Distribution Width 13.2 % (11.0-16.0); White Blood Count 11.8 X10*3/uL (4.8-10.8)
[2022-10-06 19:05] LABS: Appearance Urine Clear; Color Urine Yellow; Glucose Urine UA Negative (Negative); Leukocyte Esterase Urine Negative (Negative); Nitrite Urine Negative (Negative); Specific Gravity - Urine <= 1.005 (1.005-1.025); Urine Blood Negative (Negative); Urine Ketones Negative (Negative); Urine Protein Negative (Neg-Trace)
[2022-10-06 19:09] LABS: INTERNATIONAL NORM RATIO 0.9 (0.9-1.1); Prothrombin Time 10.7 SEC (10.0-13.1)
[2022-10-06 19:25] LABS: HCG Quantitative 3 mIU/mL
[2022-10-06 19:35] LABS: Alanine Aminotransferase 35 U/L (0-31); Albumin Level 4.5 g/dL (3.5-5.0); Alkaline Phosphatase 81 U/L (39-117); Anion Gap 16 (12-20); Aspartate Amino Transferase 21 U/L (5-31); Bilirubin Total 0.3 mg/dL (0.0-1.0); Blood Urea Nitrogen 8 mg/dL (9-16); Carbon Dioxide 25 mmol/L (22-29); Chloride 105 mmol/L (96-108); Creatinine Clr Calc Pharmacy 151.6; Estimated Glomerular Filt Rate > 60; Ethanol < 10 mg/dL; Glucose Random 77 mg/dL (60-115); Lipase 39 U/L (8-78); Magnesium 1.9 mg/dL (1.6-2.6); Potassium 3.9 mmol/L (3.3-5.1); Sodium 142 mmol/L (135-145); Total Protein 7.1 g/dL (6.5-8.0)
[2022-10-06 19:40] LABS: Influenza A PCR NEGATIVE (Negative); Influenza B PCR NEGATIVE (Negative); Resp Syncy Virus RNA Qual PCR NEGATIVE (Negative); SARS COV2 PCR INHOUSE NEGATIVE (Negative)
[2022-10-06] MEDS: oxyCODONE HCl Immed Release 5 MG TABLET 10 MG PO (21:43)
[2022-10-06] MEDS: Dicyclomine HCl 10 MG CAPSULE 20 MG PO (21:44)
--- NOTE | 2022-10-06 21:50 | PC.NURSE ---
Pt. resting quietly in bed, no distress noted. Pt. medicated per MAR and d/c'd to home.
== END 2022-10-06 21:52 | disposition home or self-care (01) ==
PROVIDERS: Physician Assistant Medical; Emergency Provider Internal Medicine; PCP Internal Medicine
DX: K58.9 Irritable bowel syndrome, unspecified (principal); Z20.822 Contact with and (suspected) exposure to COVID-19; Z20.828 Contact with and (suspected) exposure to other viral communicable diseases; E11.9 Type 2 diabetes mellitus without complications; I10 Essential (primary) hypertension; E78.5 Hyperlipidemia, unspecified; Z79.899 Other long term (current) drug therapy; Z79.02 Long term (current) use of antithrombotics/antiplatelets; Z79.84 Long term (current) use of oral hypoglycemic drugs; F17.210 Nicotine dependence, cigarettes, uncomplicated; F12.90 Cannabis use, unspecified, uncomplicated
CPT/HCPCS: 0241U; 36415; 74176; 80053; 81003; 82077; 83690; 83735; 84702; 85025; 85610; 99284

== ENCOUNTER 2022-10-30 11:57 | Outpatient (REF) | payer BC, MEDICARE, MEDICAID, SELFPAY ==
[2022-10-30 12:17] LABS: MANUAL DIFF FLAG NO
[2022-10-30 13:08] LABS: Basophils Percent Auto 0.4 % (0-2); Eosinophils Absolute Auto 0.1 X10*3/uL (0.0-0.4); Eosinophils Percent Auto 0.6 % (0-4); Hematocrit 38.3 % (37.0-47.0); Hemoglobin 12.4 g/dl (12.0-16.0); Imm Gran Abs Auto 0.03 X10*3/uL (0.00-0.03); Imm Gran Pct Auto 0.3 % (0.0-0.4); Lymphocytes Absolute Auto 2.9 X10*3/uL (1.2-4.9); Lymphocytes Percent Auto 30.6 % (20-40); Mean Corpuscular HGB Conc 32.4 g/dl (31.0-35.0); Mean Corpuscular Hemoglobin 29.9 pg (27.0-33.0); Mean Corpuscular Volume 92.3 fL (80.0-98.0); Mean Platelet Volume 10.4 fL (9.4-12.3); Monocytes Absolute Auto 0.5 X10*3/uL (0.1-1.2); Monocytes Percent Auto 4.7 % (2-11); Neutrophils Absolute Auto 6.1 x10*3/uL (2.0-8.3); Neutrophils Percent Auto 63.4 % (45-73); Platelet Count 273 X10*3/uL (160-400); Red Blood Count 4.15 X10*6/uL (4.20-5.50); Red Cell Distribution Width 13.7 % (11.0-16.0); White Blood Count 9.6 X10*3/uL (4.8-10.8)
== END 2022-10-30 11:58 | disposition home or self-care (01) ==
LOC: HO.LAB 11:57
PROVIDERS: PCP Internal Medicine; Visit Provider Clinical Nurse Specialist Psychiatric/Mental Health, Child & Adolescent
DX: F31.32 Bipolar disorder, current episode depressed, moderate (principal); Z79.899 Other long term (current) drug therapy
CPT/HCPCS: 36415; 85025

== ENCOUNTER 2022-11-28 10:59 | Outpatient (REF) | payer BC, MEDICARE, MEDICAID, SELFPAY ==
[2022-11-28 11:18] LABS: MANUAL DIFF FLAG NO
[2022-11-28 12:21] LABS: Basophils Percent Auto 0.3 % (0-2); Eosinophils Absolute Auto 0.1 X10*3/uL (0.0-0.4); Eosinophils Percent Auto 0.7 % (0-4); Hematocrit 38.9 % (37.0-47.0); Imm Gran Abs Auto 0.02 X10*3/uL (0.00-0.03); Imm Gran Pct Auto 0.2 % (0.0-0.4); Lymphocytes Absolute Auto 2.8 X10*3/uL (1.2-4.9); Lymphocytes Percent Auto 27.1 % (20-40); Mean Corpuscular HGB Conc 33.4 g/dl (31.0-35.0); Mean Corpuscular Hemoglobin 30.6 pg (27.0-33.0); Mean Corpuscular Volume 91.5 fL (80.0-98.0); Mean Platelet Volume 10.8 fL (9.4-12.3); Monocytes Absolute Auto 0.5 X10*3/uL (0.1-1.2); Monocytes Percent Auto 4.4 % (2-11); Neutrophils Absolute Auto 7.1 x10*3/uL (2.0-8.3); Neutrophils Percent Auto 67.3 % (45-73); Platelet Count 289 X10*3/uL (160-400); Red Blood Count 4.25 X10*6/uL (4.20-5.50); Red Cell Distribution Width 13.4 % (11.0-16.0); White Blood Count 10.5 X10*3/uL (4.8-10.8)
== END 2022-11-28 11:00 | disposition home or self-care (01) ==
LOC: HO.LABR 10:59
PROVIDERS: PCP Internal Medicine; Visit Provider Clinical Nurse Specialist Psychiatric/Mental Health, Child & Adolescent
DX: F31.32 Bipolar disorder, current episode depressed, moderate (principal); Z79.899 Other long term (current) drug therapy
CPT/HCPCS: 36415; 85025

== ENCOUNTER 2022-11-30 19:18 | Emergency (ER) | payer OTHER, BC, MEDICARE, MEDICAID, SELFPAY ==
[2022-11-30 19:26] VITALS: BP 157/99; PULSE 85; RESP 20; TEMP 36.4; O2SAT 97; BMI 49.8
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
[2022-11-30] MEDS: diazePAM 2 MG TABLET PO (22:35)
== END 2022-11-30 22:51 | disposition home or self-care (01) ==
PROVIDERS: Emergency Provider Emergency Medicine; PCP Internal Medicine
DX: M54.2 Cervicalgia (principal); M79.10 Myalgia, unspecified site; F17.210 Nicotine dependence, cigarettes, uncomplicated; Z71.6 Tobacco abuse counseling
CPT/HCPCS: 99283

== ENCOUNTER 2022-12-09 15:20 | Emergency (ER) | payer OTHER, BC, MEDICARE, MEDICAID, SELFPAY ==
--- NOTE | ~2022-12-09 | XR_ITS ---
EXAMINATION: XR CHEST CLINICAL INFORMATION: Right-sided chest pain worse with deep inspiration COMPARISON: None available. TECHNIQUE: 2 views of the chest were obtained. FINDINGS: No significant abnormality is noted involving the heart, lungs, mediastinum, bony thorax or soft tissues. XR/XR chest 2V IMPRESSION: Unremarkable chest examination.
--- NOTE | 2022-12-09 15:28 | ECG_ITS ---
Test Reason : chest pain Blood Pressure : / mmHG Vent. Rate : 094 BPM Atrial Rate : 094 BPM P-R Int : 184 ms QRS Dur : 090 ms QT Int : 346 ms P-R-T Axes : 045 013 053 degrees QTc Int : 432 ms Normal sinus rhythm Possible Left atrial enlargement Nonspecific T wave abnormality Abnormal ECG When compared with ECG of 20-JUN-2022 14:16, No significant change was found Referred By: Nell Greco Electronically Signed By:THERESA HUTSON
[2022-12-09 15:35] VITALS: BP 148/76; PULSE 99; RESP 18; TEMP 36.2; O2SAT 96; BMI 49.8
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
[2022-12-09 16:16] LABS: MANUAL DIFF FLAG NO
[2022-12-09 16:17] LABS: Basophils Percent Auto 0.3 % (0-2); Eosinophils Percent Auto 0.1 % (0-4); Hematocrit 41.3 % (37.0-47.0); Hemoglobin 13.5 g/dl (12.0-16.0); Imm Gran Abs Auto 0.04 X10*3/uL (0.00-0.03); Imm Gran Pct Auto 0.3 % (0.0-0.4); Lymphocytes Absolute Auto 2.8 X10*3/uL (1.2-4.9); Lymphocytes Percent Auto 20.5 % (20-40); Mean Corpuscular HGB Conc 32.7 g/dl (31.0-35.0); Mean Corpuscular Hemoglobin 29.5 pg (27.0-33.0); Mean Corpuscular Volume 90.2 fL (80.0-98.0); Mean Platelet Volume 9.6 fL (9.4-12.3); Monocytes Absolute Auto 0.6 X10*3/uL (0.1-1.2); Monocytes Percent Auto 4.1 % (2-11); NRBC Pct Auto 0.1 /100WBC (0.0-0.2); Neutrophils Absolute Auto 10.3 x10*3/uL (2.0-8.3); Neutrophils Percent Auto 74.7 % (45-73); Platelet Count 293 X10*3/uL (160-400); Red Blood Count 4.58 X10*6/uL (4.20-5.50); Red Cell Distribution Width 13.3 % (11.0-16.0); White Blood Count 13.8 X10*3/uL (4.8-10.8)
[2022-12-09 16:26] LABS: Prothrombin Time 11.1 SEC (10.0-13.1)
[2022-12-09 16:31] LABS: Alanine Aminotransferase 23 U/L (0-31); Albumin Level 4.7 g/dL (3.5-5.0); Alkaline Phosphatase 77 U/L (39-117); Anion Gap 16 (12-20); Aspartate Amino Transferase 13 U/L (5-31); Bilirubin Total 0.4 mg/dL (0.0-1.0); Blood Urea Nitrogen 16 mg/dL (9-16); Calcium 9.3 mg/dL (8.4-10.2); Carbon Dioxide 23 mmol/L (22-29); Chloride 105 mmol/L (96-108); Creatinine Clr Calc Pharmacy 115.4; Estimated Glomerular Filt Rate > 60; Glucose Random 208 mg/dL (60-115); Magnesium 1.7 mg/dL (1.6-2.6); Potassium 3.7 mmol/L (3.3-5.1); Sodium 140 mmol/L (135-145); Total Protein 7.1 g/dL (6.5-8.0)
[2022-12-09 16:34] LABS: Ethanol < 10 mg/dL
[2022-12-09 16:38] LABS: HCG Quantitative 3 mIU/mL
[2022-12-09 16:46] LABS: Troponin-I High Sensitivity < 2.7 ng/L (<3.5-17.0)
[2022-12-09 16:54] LABS: Influenza A PCR NEGATIVE (Negative); Influenza B PCR NEGATIVE (Negative); Resp Syncy Virus RNA Qual PCR NEGATIVE (Negative); SARS COV2 PCR INHOUSE NEGATIVE (Negative)
[2022-12-09 19:58] VITALS: BP 125/75; PULSE 84; RESP 18; TEMP 37.2; O2SAT 96
[2022-12-09] MEDS: Ketorolac Tromethamine 30 MG/ML VIAL IM (20:01)
== END 2022-12-09 20:22 | disposition home or self-care (01) ==
PROVIDERS: Physician Assistant Medical; Emergency Provider Internal Medicine
DX: R07.89 Other chest pain (principal); M54.2 Cervicalgia; F17.210 Nicotine dependence, cigarettes, uncomplicated; Z20.828 Contact with and (suspected) exposure to other viral communicable diseases; Z20.822 Contact with and (suspected) exposure to COVID-19; Z71.6 Tobacco abuse counseling; Z79.899 Other long term (current) drug therapy
CPT/HCPCS: 0241U; 36415; 71046; 80053; 82077; 83735; 84484; 84702; 85025; 85610; 93005; 96372; 99284; J1885

== ENCOUNTER 2022-12-26 10:32 | Outpatient (REF) | payer BC, MEDICARE, MEDICAID, SELFPAY ==
[2022-12-26 10:50] LABS: MANUAL DIFF FLAG NO
[2022-12-26 11:00] LABS: Basophils Percent Auto 0.4 % (0-2); Eosinophils Absolute Auto 0.1 X10*3/uL (0.0-0.4); Eosinophils Percent Auto 0.6 % (0-4); Hematocrit 40.3 % (37.0-47.0); Hemoglobin 13.2 g/dl (12.0-16.0); Imm Gran Abs Auto 0.03 X10*3/uL (0.00-0.03); Imm Gran Pct Auto 0.3 % (0.0-0.4); Lymphocytes Absolute Auto 3.5 X10*3/uL (1.2-4.9); Lymphocytes Percent Auto 34.3 % (20-40); Mean Corpuscular HGB Conc 32.8 g/dl (31.0-35.0); Mean Corpuscular Hemoglobin 30.3 pg (27.0-33.0); Mean Corpuscular Volume 92.6 fL (80.0-98.0); Mean Platelet Volume 9.5 fL (9.4-12.3); Monocytes Absolute Auto 0.5 X10*3/uL (0.1-1.2); Monocytes Percent Auto 4.5 % (2-11); Neutrophils Absolute Auto 6.1 x10*3/uL (2.0-8.3); Neutrophils Percent Auto 59.9 % (45-73); Platelet Count 245 X10*3/uL (160-400); Red Blood Count 4.35 X10*6/uL (4.20-5.50); Red Cell Distribution Width 13.5 % (11.0-16.0); White Blood Count 10.2 X10*3/uL (4.8-10.8)
== END 2022-12-26 10:33 | disposition home or self-care (01) ==
LOC: HO.LABR 10:32
PROVIDERS: PCP Internal Medicine; Visit Provider Clinical Nurse Specialist Psychiatric/Mental Health, Child & Adolescent
DX: F31.32 Bipolar disorder, current episode depressed, moderate (principal); Z79.899 Other long term (current) drug therapy
CPT/HCPCS: 36415; 85007; 85025

== ENCOUNTER 2023-01-22 11:25 | Outpatient (REF) | payer BC, MEDICARE, MEDICAID, SELFPAY ==
[2023-01-22 11:43] LABS: MANUAL DIFF FLAG NO
[2023-01-22 12:31] LABS: Basophils Percent Auto 0.4 % (0-2); Eosinophils Absolute Auto 0.1 X10*3/uL (0.0-0.4); Eosinophils Percent Auto 0.5 % (0-4); Hematocrit 40.8 % (37.0-47.0); Hemoglobin 13.1 g/dl (12.0-16.0); Imm Gran Abs Auto 0.05 X10*3/uL (0.00-0.03); Imm Gran Pct Auto 0.5 % (0.0-0.4); Lymphocytes Absolute Auto 2.5 X10*3/uL (1.2-4.9); Lymphocytes Percent Auto 26.1 % (20-40); Mean Corpuscular HGB Conc 32.1 g/dl (31.0-35.0); Mean Corpuscular Volume 93.4 fL (80.0-98.0); Mean Platelet Volume 9.8 fL (9.4-12.3); Monocytes Absolute Auto 0.5 X10*3/uL (0.1-1.2); Monocytes Percent Auto 5.3 % (2-11); Neutrophils Absolute Auto 6.5 x10*3/uL (2.0-8.3); Neutrophils Percent Auto 67.2 % (45-73); Platelet Count 262 X10*3/uL (160-400); Red Blood Count 4.37 X10*6/uL (4.20-5.50); Red Cell Distribution Width 13.8 % (11.0-16.0); White Blood Count 9.7 X10*3/uL (4.8-10.8)
== END 2023-01-22 11:26 | disposition home or self-care (01) ==
LOC: HO.LABR 11:25
PROVIDERS: PCP Internal Medicine; Visit Provider Clinical Nurse Specialist Psychiatric/Mental Health, Child & Adolescent
DX: F31.32 Bipolar disorder, current episode depressed, moderate (principal); Z79.899 Other long term (current) drug therapy
CPT/HCPCS: 36415; 85025

== ENCOUNTER 2023-02-19 11:24 | Outpatient (REF) | payer BC, MEDICARE, MEDICAID, SELFPAY ==
[2023-02-19 11:39] LABS: MANUAL DIFF FLAG NO
[2023-02-19 11:51] LABS: Baso%MD 0.5 %; Basophils Absolute Auto 0.1 X10*3/uL (0.0-0.2); Basophils Percent Auto 0.5 % (0-2); Eos%MD 0.6 %; Eosinophils Absolute Auto 0.1 X10*3/uL (0.0-0.4); Eosinophils Percent Auto 0.6 % (0-4); Hematocrit 40.3 % (37.0-47.0); Hemoglobin 13.2 g/dl (12.0-16.0); IG%MD 0.3 %; Imm Gran Abs Auto 0.03 X10*3/uL (0.00-0.03); Imm Gran Pct Auto 0.3 % (0.0-0.4); Lymph%MD 31.5 %; Lymphocytes Absolute Auto 2.9 X10*3/uL (1.2-4.9); Lymphocytes Percent Auto 31.5 % (20-40); Mean Corpuscular HGB Conc 32.8 g/dl (31.0-35.0); Mean Corpuscular Hemoglobin 30.6 pg (27.0-33.0); Mean Corpuscular Volume 93.5 fL (80.0-98.0); Mean Platelet Volume 9.8 fL (9.4-12.3); Mono%MD 4.9 %; Monocytes Absolute Auto 0.5 X10*3/uL (0.1-1.2); Monocytes Percent Auto 4.9 % (2-11); Neut%MD 62.2 %; Neutrophils Absolute Auto 5.8 x10*3/uL (2.0-8.3); Neutrophils Percent Auto 62.2 % (45-73); Platelet Count 266 X10*3/uL (160-400); Red Blood Count 4.31 X10*6/uL (4.20-5.50); Red Cell Distribution Width 14.6 % (11.0-16.0); White Blood Count 9.3 X10*3/uL (4.8-10.8)
[2023-02-19 13:12] LABS: Band Neutrophils Percent 1 % (3-5); Lymphocytes Absolute Manual 2.6 X10*3/uL (1.2-4.9); Lymphocytes Percent Manual 28 % (20-40); Monocytes Absolute Manual 0.2 X10*3/uL (0.1-1.2); Monocytes Percent Manual 2 % (2-11); Neutrophils Absolute Manual 6.5 X10*3/uL (2.0-8.3); Neutrophils Percent Manual 69 % (45-73)
[2023-02-19 13:15] LABS: Platelet Estimate NORMAL (NORMAL); Platelet Morphology Comment NORMAL; RBC Morphology NORMAL
== END 2023-02-19 11:25 | disposition home or self-care (01) ==
LOC: HO.LAB 11:24
PROVIDERS: Visit Provider Clinical Nurse Specialist Psychiatric/Mental Health, Child & Adolescent
DX: F31.32 Bipolar disorder, current episode depressed, moderate (principal); Z79.899 Other long term (current) drug therapy
CPT/HCPCS: 36415; 85007; 85025; 85027; 85048

== ENCOUNTER 2023-03-15 14:46 | Emergency (ER) | payer BC, MEDICARE, MEDICAID, SELFPAY ==
[2023-03-15 15:23] VITALS: BP 156/98; PULSE 102; RESP 20; TEMP 36; O2SAT 93; BMI 50.1
--- NOTE | 2023-03-15 15:23 | ED.GENADULT ---
HPI - General Adult General Chief complaint: Abdominal Pain Stated complaint: abd pain, nausea Time Seen by Provider: 03/15/23 23:55 Source: patient Mode of arrival: ambulatory Limitations: no limitations History of Present Illness HPI narrative: patient status post cholecystectomy frequent ED visits for abdominal pain last CT scan was done on 10/18 which negative for acute pathology comes here for nausea vomiting with diarrhea started earlier with diffuse right side abdominal pain. No fever no chills no urinary complaints Related Data Home Medications Medication Instructions Recorded Confirmed pantoprazole 40 mg tablet,delayed 40 mg PO BID@0630,1630 11/22/20 08/30/22 release clozapine 100 mg tablet 200 mg PO BEDTIME 11/13/21 08/30/22 lisinopril 40 mg tablet 40 mg PO DAILY 11/13/21 08/30/22 sitagliptin phosphate 50 mg tablet 50 mg PO DAILY 04/17/22 08/30/22 (Januvia) atorvastatin 20 mg tablet 20 mg PO BEDTIME 07/03/22 08/30/22 clonazepam 1 mg tablet 1 mg PO BID anxiety 07/03/22 08/30/22 metformin 1,000 mg tablet 1,000 mg PO BIDWM 07/03/22 08/30/22 metoprolol succinate 50 mg 50 mg PO DAILY 07/03/22 08/30/22 tablet,extended release 24 hr mirabegron 50 mg tablet,extended 50 mg PO DAILY 07/03/22 08/30/22 release 24 hr (Myrbetriq) Previous Rx's Medication Instructions Recorded dicyclomine 20 mg tablet 20 mg PO QID PRN abdominal pain 10/06/22 #20 tabs ondansetron 4 mg disintegrating 4 mg PO Q6-8H PRN nausea and 10/06/22 tablet vomiting #7 tabs diazepam 2 mg tablet 2 mg PO BID PRN muscle spasm #2 11/30/22 tabs tramadol 50 mg tablet 50 mg PO Q6H PRN severe pain 12/09/22 (scale score 7-10) #14 tabs dicyclomine 20 mg tablet 20 mg PO QID PRN abdominal pain 03/16/23 #20 tabs ondansetron 4 mg disintegrating 4 mg PO Q6-8H PRN nausea and 03/16/23 tablet vomiting #7 tabs Allergies Allergy/AdvReac Type Severity Reaction Status Date / Time Penicillins [PENICILLINS] Allergy Severe ANAPHYLAXIS Verified 03/15/23 15:26 adhesive [ADHESIVE] Allergy Unknown RASH Verified 03/15/23 15:26 artichoke [ARTICHOKE] Allergy Unknown RASH Verified 03/15/23 15:26 carbamazepine [From TEGRETOL] Allergy Unknown MIGRAINES Verified 03/15/23 15:26 cariprazine [From VRAYLAR] Allergy Unknown LEG CRAMPS Verified 03/15/23 15:26 fentanyl [FENTANYL] Allergy Unknown RASH Verified 03/15/23 15:26 lamotrigine [From LAMICTAL] Allergy Unknown RASH Verified 03/15/23 15:26 lithium [LITHIUM] AdvReac Severe tremor and Verified 03/15/23 15:26 falls Review of Systems Review of Systems: Yes all other systems are reviewed and are negative [facility] Past Medical History Medical History Anxiety Bipolar disease, chronic Depression Diabetes GERD (gastroesophageal reflux disease) High cholesterol Hypertension Migraines Morbid obesity with BMI of 45.0-49.9, adult Obstructive sleep apnea PCOS (polycystic ovarian syndrome) Pre-diabetes Renal colic Thrombosed external hemorrhoid Surgical History History of cholecystectomy History of dilation and curettage Family History Family History Father Coronary artery disease Other Breast cancer Social History Social History Household Members: Spouse and Children Housing: Apartment Do you presently have visiting nurse or other home services: No Alcohol intake: current Alcohol intake frequency: holidays/special occasions only Alcohol type: hard liquor Patient Tobacco Use Status: Tobacco use Unknown Tobacco use type: Cigarette Cigarette Packs Per Day: 1 Cigarettes Per Day: 20.0 Years Smoked: 30 +/- Substance Use Type: Marijuana Advance Directives: No Advance Directives Information Provided: Yes service: No Current occupational status: employed Physical Exam ED Vital Signs: Vital Signs - 24 hr 03/15/23 15:23 Temperature 96.8 F Pulse Rate 102 H Respiratory Rate 20 Blood Pressure 156/98 H Pulse Oximetry 93 Oxygen Delivery Method Room Air BMI result Body Mass Index 50.1 Appearance: Alert. Oriented X3. No acute distress. Eyes: PERRLA, no pallor or icterus ENT: Pharynx normal. Oral Mucosa moist Neck: Normal inspection. Neck supple. CVS: Normal heart rate and rhythm. Pulses normal. Respiratory: No respiratory distress. Equal air entry bilateral, no wheezing/rales/rhonchi Abdomen: Soft and mild tenderness right mid abdomen no rebound tenderness or guarding Bowel sounds are present, no mass palpable, no CVA tenderness Skin: Skin warm and dry. Normal skin color. Normal skin turgor. Extremities: No lower extremity edema. No calf tenderness Neuro: Oriented X 3. No motor deficit. Course Course Course Narrative: RME performed by Park Graham PA-C. Patient is a 47 year old assigned female at presenting to the emergency department with right lower quadrant abdominal pain, nausea, vomiting, and fever. Labs ordered. Patient placed back in the waiting room pending room availability and results. Medical Decision Making Medical Decision Making [facility] Narrative: visual chronic frequent abdominal pain nausea stable vitals will discharge patient home on Zofran and dicyclomine Lab Data [facility] Lab Attestation statement: I reviewed the patient's lab results. 03/15/23 18:33 03/15/23 18:33 Labs: Lab Results 03/15/23 03/15/23 03/15/23 Range/Units 18:33 18:33 18:33 WBC 10.8 (4.8-10.8) X10*3/uL RBC 4.45 (4.20-5.50) X10*6/uL Hgb 13.7 (12.0-16.0) g/dl Hct 41.3 (37.0-47.0) % MCV 92.8 (80.0-98.0) fL MCH 30.8 (27.0-33.0) pg MCHC 33.2 (31.0-35.0) g/dl RDW 14.2 (11.0-16.0) % Plt Count 284 (160-400) X10*3/uL MPV 9.4 (9.4-12.3) fL Immature Gran % (Auto) 0.4 (0.0-0.4) % Neut % (Auto) 62.0 (45-73) % Lymph % (Auto) 31.8 (20-40) % Starke % (Auto) 4.8 (2-11) % Eos % (Auto) 0.6 (0-4) % Baso % (Auto) 0.4 (0-2) % Lymph # (Auto) 3.4 (1.2-4.9) X10*3/uL Starke # (Auto) 0.5 (0.1-1.2) X10*3/uL Eos # (Auto) 0.1 (0.0-0.4) X10*3/uL Baso # (Auto) 0.0 (0.0-0.2) X10*3/uL Abs Immat Gran (auto) 0.04 H (0.00-0.03) X10*3/uL Absolute Neuts (auto) 6.7 (2.0-8.3) x10*3/uL Absolute Nucleated RBC 0.000 (0.0-0.012) X10*3/uL Nucleated RBC % (auto) 0.0 (0.0-0.2) /100WBC Sodium 140 (135-145) mmol/L Potassium 3.7 (3.3-5.1) mmol/L Chloride 104 (96-108) mmol/L Carbon Dioxide 25 (22-29) mmol/L Anion Gap 15 (12-20) BUN 10 (9-16) mg/dL Creatinine 0.73 (0.5-1.4) mg/dL Estim Creat Clear Calc 142.9 Estimated GFR > 60 Random Glucose 126 H (60-115) mg/dL Calcium 9.9 D (8.4-10.2) mg/dL Magnesium 1.9 (1.6-2.6) mg/dL Total Bilirubin 0.4 (0.0-1.0) mg/dL AST 19 (5-31) U/L ALT 36 H (0-31) U/L Alkaline Phosphatase 62 (39-117) U/L Total Protein 7.6 (6.5-8.0) g/dL Albumin 4.4 (3.5-5.0) g/dL Urine Color Yellow Urine Appearance Clear Urine pH 6.5 (5.0-9.0) Ur Specific Harman 1.015 (1.005-1.025) Urine Protein Negative (Neg-Trace) mg/dL Urine Glucose (UA) Negative (Negative) mg/dL Urine Ketones Negative (Negative) mg/dL Urine Blood Negative (Negative) Urine Nitrite Negative (Negative) Ur Leukocyte Esterase Negative (Negative) Discharge Plan Discharge Clinical Impression: Gastroenteritis Patient Disposition: Home, Self-Care Instructions: Gastroenteritis (ED) Additional Instructions: drink plenty of fluids medicine for nausea abdominal pain as prescribed follow with PCP as needed Prescriptions: New dicyclomine 20 mg tablet 20 mg PO QID PRN (Reason: abdominal pain) Qty: 20 0RF ondansetron 4 mg tablet,disintegrating 4 mg PO Q6-8H PRN (Reason: nausea and vomiting) Qty: 7 0RF No Action Myrbetriq 50 mg tablet extended release 24 hr 50 mg PO DAILY clozapine 100 mg tablet 200 mg PO BEDTIME lisinopril 40 mg tablet 40 mg PO DAILY atorvastatin 20 mg tablet 20 mg PO BEDTIME clonazepam 1 mg tablet 1 mg PO BID metformin 1,000 mg tablet 1,000 mg PO BIDWM metoprolol succinate 50 mg tablet extended release 24 hr 50 mg PO DAILY Januvia 50 mg tablet 50 mg PO DAILY dicyclomine 20 mg tablet 20 mg PO QID PRN (Reason: abdominal pain) Qty: 20 0RF ondansetron 4 mg tablet,disintegrating 4 mg PO Q6-8H PRN (Reason: nausea and vomiting) Qty: 7 0RF diazepam 2 mg tablet 2 mg PO BID PRN (Reason: muscle spasm) Qty: 2 0RF tramadol 50 mg tablet 50 mg PO Q6H PRN (Reason: severe pain (scale score 7-10)) Qty: 14 0RF pantoprazole 40 mg tablet,delayed release (DR/EC) 40 mg PO BID@0630,1630
[2023-03-15 18:38] LABS: MANUAL DIFF FLAG NO
--- NOTE | 2023-03-15 18:39 | MHC.EDTECH ---
PATIENT BLOOD DRAWN AND URINE COLLECTED AND SENT TO LAB .
[2023-03-15 18:43] LABS: Basophils Percent Auto 0.4 % (0-2); Eosinophils Absolute Auto 0.1 X10*3/uL (0.0-0.4); Eosinophils Percent Auto 0.6 % (0-4); Hematocrit 41.3 % (37.0-47.0); Hemoglobin 13.7 g/dl (12.0-16.0); Imm Gran Abs Auto 0.04 X10*3/uL (0.00-0.03); Imm Gran Pct Auto 0.4 % (0.0-0.4); Lymphocytes Absolute Auto 3.4 X10*3/uL (1.2-4.9); Lymphocytes Percent Auto 31.8 % (20-40); Mean Corpuscular HGB Conc 33.2 g/dl (31.0-35.0); Mean Corpuscular Hemoglobin 30.8 pg (27.0-33.0); Mean Corpuscular Volume 92.8 fL (80.0-98.0); Mean Platelet Volume 9.4 fL (9.4-12.3); Monocytes Absolute Auto 0.5 X10*3/uL (0.1-1.2); Monocytes Percent Auto 4.8 % (2-11); Neutrophils Absolute Auto 6.7 x10*3/uL (2.0-8.3); Platelet Count 284 X10*3/uL (160-400); Red Blood Count 4.45 X10*6/uL (4.20-5.50); Red Cell Distribution Width 14.2 % (11.0-16.0); White Blood Count 10.8 X10*3/uL (4.8-10.8)
[2023-03-15 18:45] LABS: Appearance Urine Clear; Color Urine Yellow; Glucose Urine UA Negative (Negative); Leukocyte Esterase Urine Negative (Negative); Nitrite Urine Negative (Negative); PH 6.5 (5.0-9.0); Specific Gravity - Urine 1.015 (1.005-1.025); Urine Blood Negative (Negative); Urine Ketones Negative (Negative); Urine Protein Negative (Neg-Trace)
[2023-03-15 18:54] LABS: Alanine Aminotransferase 36 U/L (0-31); Albumin Level 4.4 g/dL (3.5-5.0); Alkaline Phosphatase 62 U/L (39-117); Anion Gap 15 (12-20); Aspartate Amino Transferase 19 U/L (5-31); Bilirubin Total 0.4 mg/dL (0.0-1.0); Blood Urea Nitrogen 10 mg/dL (9-16); Calcium 9.9 mg/dL (8.4-10.2); Carbon Dioxide 25 mmol/L (22-29); Chloride 104 mmol/L (96-108); Creatinine Clr Calc Pharmacy 142.9; Estimated Glomerular Filt Rate > 60; Glucose Random 126 mg/dL (60-115); Magnesium 1.9 mg/dL (1.6-2.6); Potassium 3.7 mmol/L (3.3-5.1); Sodium 140 mmol/L (135-145); Total Protein 7.6 g/dL (6.5-8.0)
[2023-03-16] MEDS: Dicyclomine HCl 10 MG CAPSULE 20 MG PO (01:21)
[2023-03-16] MEDS: Ondansetron ODT 4 MG TAB.RAPDIS TRANSLINGU (01:21)
[2023-03-16] MEDS: oxyCODONE HCl Immed Release 5 MG TABLET 10 MG PO (01:21)
[2023-03-21 09:49] LABS: Clozapine (Clozaril) 142 mcg/L; Norclozapine 110 mcg/L (25-400)
== END 2023-03-16 01:31 | disposition home or self-care (01) ==
PROVIDERS: Physician Assistant Medical; Emergency Provider Internal Medicine; PCP Internal Medicine
DX: K52.9 Noninfective gastroenteritis and colitis, unspecified (principal); E11.9 Type 2 diabetes mellitus without complications; I10 Essential (primary) hypertension; F17.210 Nicotine dependence, cigarettes, uncomplicated; F12.90 Cannabis use, unspecified, uncomplicated; E66.9 Obesity, unspecified; Z68.43 Body mass index [BMI] 50.0-59.9, adult; Z79.84 Long term (current) use of oral hypoglycemic drugs; Z79.899 Other long term (current) drug therapy
CPT/HCPCS: 36415; 80053; 80159; 81003; 83735; 85025; 99283

== ENCOUNTER 2023-03-20 10:12 | Outpatient (REF) | payer BC, MEDICARE, MEDICAID, SELFPAY ==
[2023-03-20 10:49] LABS: MANUAL DIFF FLAG NO
[2023-03-20 11:56] LABS: Basophils Percent Auto 0.3 % (0-2); Eosinophils Absolute Auto 0.1 X10*3/uL (0.0-0.4); Eosinophils Percent Auto 0.6 % (0-4); Hematocrit 40.9 % (37.0-47.0); Hemoglobin 13.2 g/dl (12.0-16.0); Imm Gran Abs Auto 0.03 X10*3/uL (0.00-0.03); Imm Gran Pct Auto 0.3 % (0.0-0.4); Lymphocytes Absolute Auto 2.2 X10*3/uL (1.2-4.9); Lymphocytes Percent Auto 24.8 % (20-40); Mean Corpuscular HGB Conc 32.3 g/dl (31.0-35.0); Mean Corpuscular Hemoglobin 30.3 pg (27.0-33.0); Mean Platelet Volume 10.4 fL (9.4-12.3); Monocytes Absolute Auto 0.5 X10*3/uL (0.1-1.2); Monocytes Percent Auto 5.4 % (2-11); Neutrophils Percent Auto 68.6 % (45-73); Platelet Count 298 X10*3/uL (160-400); Red Blood Count 4.35 X10*6/uL (4.20-5.50); Red Cell Distribution Width 14.3 % (11.0-16.0); White Blood Count 8.8 X10*3/uL (4.8-10.8)
== END 2023-03-20 10:13 | disposition home or self-care (01) ==
LOC: HO.LAB 10:12
PROVIDERS: Clinical Nurse Specialist Psychiatric/Mental Health, Child & Adolescent; PCP Internal Medicine; Visit Provider Internal Medicine
DX: R00.2 Palpitations (principal); R55 Syncope and collapse; Z79.899 Other long term (current) drug therapy
CPT/HCPCS: 36415; 85025; 85048

== ENCOUNTER 2023-03-20 10:12 | Outpatient (AMB) | payer BC, MEDICARE, MEDICAID, SELFPAY ==
--- NOTE | 2023-03-20 10:13 | A.OFFVIS_ITS ---
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 Accompanied by: Self / Same As Patient Allergies Penicillins [PENICILLINS] Allergy (Severe, Verified 03/20/23 10:16) ANAPHYLAXIS adhesive [ADHESIVE] Allergy (Unknown, Verified 03/20/23 10:16) RASH artichoke [ARTICHOKE] Allergy (Unknown, Verified 03/20/23 10:16) RASH carbamazepine [From TEGRETOL] Allergy (Unknown, Verified 03/20/23 10:16) MIGRAINES cariprazine [From VRAYLAR] Allergy (Unknown, Verified 03/20/23 10:16) LEG CRAMPS fentanyl [FENTANYL] Allergy (Unknown, Verified 03/20/23 10:16) RASH lamotrigine [From LAMICTAL] Allergy (Unknown, Verified 03/20/23 10:16) RASH lithium [LITHIUM] Adverse Reaction (Severe, Verified 03/20/23 10:16) tremor and falls Medication List - Last Reconciled 03/20/23 by Enzo Jay MD clonazepam 1 mg PO BID clozapine 200 mg PO BEDTIME dicyclomine 20 mg PO QID PRN lisinopril 40 mg PO DAILY metformin 1,000 mg PO BIDWM metoprolol succinate ER 50 mg PO DAILY mirabegron ER (Myrbetriq) 50 mg PO DAILY ondansetron 4 mg PO Q6-8H PRN pantoprazole 40 mg PO BID@0630,1630 sitagliptin phosphate (Januvia) 50 mg PO DAILY HPI HPI Comments History of Present Illness Details Felicia returns for follow-up regarding palpitations and presyncope. Last year, she was hospitalized for a presumed syncopal episode. No known car diac issues. Has obesity and obstructive sleep apnea. Many comorbidities including anxiety/bipolar. At the time of hospitalization, she was sitting on a stool but then suddenly felt sweaty and dizzy and heart is racing. No true loss of consciousness. Then admitted briefly underwent an echocardiogram and telemetry monitoring and discharged home. Then she has completed a Holter monitor as well as 30 day monitor. Overall, random symptoms like fluttering at different times. No documented history of coronary disease or cardiomyopathy or anything significant otherwise. [facility] Medical History Anxiety Bipolar disease, chronic Depression Diabetes GERD (gastroesophageal reflux disease) High cholesterol Hypertension Migraines Morbid obesity with BMI of 45.0-49.9, adult Obstructive sleep apnea PCOS (polycystic ovarian syndrome) Pre-diabetes Renal colic Thrombosed external hemorrhoid Surgical History History of cholecystectomy History of dilation and curettage Family History Father Coronary artery disease Other Breast cancer Social History Household Members: Spouse and Children Housing: Apartment Do you presently have visiting nurse or other home services: No Alcohol intake: current Alcohol intake frequency: holidays/special occasions only Alcohol type: hard liquor Patient Tobacco Use Status: Tobacco use Unknown Tobacco use type: Cigarette Cigarette Packs Per Day: 1 Cigarettes Per Day: 20.0 Years Smoked: 30 +/- Substance Use Type: Marijuana service: No Current occupational status: employed Review of Systems Const Denies weakness ENT Denies dizziness Card Denies chest pain, Denies chest pain with activity, Denies syncope, Denies rapid heart rate, Denies pedal edema, Denies edema, Denies leg edema, Denies lightheadedness, Denies palpitations, Denies dyspnea, Denies dyspnea on exertion and Denies orthopnea Resp Denies cough, Denies dyspnea and Denies dyspnea on exertion GI Denies hematochezia and Denies change in stool character Reports no additional complaints and Reports as per HPI Musc Denies abnormal gait, Denies muscle weakness, Denies numbness, Denies radiating pain into limb and Denies tingling Skin/Breast Reports system reviewed and no additional complaints, except as documented and Reports as per HPI Neuro Denies abnormal gait, Denies dizziness, Denies syncope, Denies numbness, Denies tingling and Denies weakness Psych Reports no additional complaints and Reports as per HPI Endo Denies palpitations Physical Exam Vital Signs: Last Vital Signs Pulse 107 H 03/20/23 10:14 BP 144/80 H 03/20/23 10:14 BMI result Body Mass Index 50.4 Const General: comfortable and no acute distress Orientation/consciousness: patient oriented x3 HEENT Other: Unremarkable Head: Yes normal to inspection Neck Neck: Yes normal visual inspection Chest Chest palpation & inspection: normal inspection of the chest Resp Auscultation: clear to auscultation bilaterally Cardio Palpation: normal PMI Heart sounds: S1 normal heart sound present, S2 normal heart sound present, no gallops, no murmurs and no rubs GI Palpation (GI): Soft to palpation Back/Spine/Pelvis Other: unremarkable Skin General skin exam: no rashes or lesions noted Neuro General: patient oriented x3 Extrem General: Yes normal to inspection Psych Mental Status: mental status grossly normal Assessment & Plan Assessment & Plan (1) Near syncope: Code(s): R55 - Syncope and collapse (2) Palpitation: Code(s): R00.2 - Palpitations Plan Baseline EKG unremarkable. Normal corrected QT. while in hospital, telemetry showed sinus rhythm. High sensitivity troponins were also within normal limits. Echocardiogram with LVEF of 60-65%. Normal diastolic function. No significant valvular issues. Holter monitor shows underlying sinus rhythm. Patient reported events correlated actually with sinus rhythm. In the 30 day monitor, underlying sinus rhythm, sinus tachycardia, PACs and PVCs. Patient had reported several symptoms at times including dizziness, shortness of breath, chest pain, racing, fluttering and they correlated with either sinus rhythm or sinus tachycardia/PACs/PVCs. Overall, no clear explanation for her symptoms. She possibly feels the palpitations from sinus tachycardia and the ectopy. She also has a significant psychiatric history and that may also be contributing. She is already on beta- blockers and they may be continued. Would not increase the dose any further. Otherwise, main recommendation would be to lose weight as she is quite obese. In fact if she actually manages to lose some weight, she would feel significantly better. Compliance with CPAP. Coding Level of Care Code Est Pt Level 3 (80738) Diagnoses Near syncope R55 Palpitation R00.2
[2023-03-20 10:14] VITALS: BP 144/80; PULSE 107; BMI 50.4
== END 2023-03-20 10:32 | disposition home or self-care (01) ==
PROVIDERS: Visit Provider Internal Medicine
DX: R55 Syncope and collapse (principal); R00.2 Palpitations
CPT/HCPCS: 99213

== ENCOUNTER 2023-04-18 12:34 | Outpatient (REF) | payer BC, MEDICARE, MEDICAID, SELFPAY ==
[2023-04-18 12:45] LABS: MANUAL DIFF FLAG NO
[2023-04-18 12:48] LABS: Basophils Percent Auto 0.3 % (0-2); Eosinophils Absolute Auto 0.1 X10*3/uL (0.0-0.4); Eosinophils Percent Auto 0.5 % (0-4); Hematocrit 39.1 % (37.0-47.0); Hemoglobin 12.8 g/dl (12.0-16.0); Imm Gran Abs Auto 0.03 X10*3/uL (0.00-0.03); Imm Gran Pct Auto 0.3 % (0.0-0.4); Lymphocytes Absolute Auto 2.3 X10*3/uL (1.2-4.9); Lymphocytes Percent Auto 23.1 % (20-40); Mean Corpuscular HGB Conc 32.7 g/dl (31.0-35.0); Mean Corpuscular Hemoglobin 30.3 pg (27.0-33.0); Mean Corpuscular Volume 92.7 fL (80.0-98.0); Mean Platelet Volume 9.5 fL (9.4-12.3); Monocytes Absolute Auto 0.5 X10*3/uL (0.1-1.2); Monocytes Percent Auto 4.7 % (2-11); Neutrophils Absolute Auto 7.1 x10*3/uL (2.0-8.3); Neutrophils Percent Auto 71.1 % (45-73); Platelet Count 258 X10*3/uL (160-400); Red Blood Count 4.22 X10*6/uL (4.20-5.50); Red Cell Distribution Width 13.3 % (11.0-16.0)
== END 2023-04-18 12:35 | disposition home or self-care (01) ==
LOC: HO.LAB 12:34
PROVIDERS: Visit Provider Clinical Nurse Specialist Psychiatric/Mental Health, Child & Adolescent
DX: Z79.899 Other long term (current) drug therapy (principal); Z51.81 Encounter for therapeutic drug level monitoring
CPT/HCPCS: 36415; 85025

== ENCOUNTER 2023-04-27 17:18 | Emergency (ER) | payer BC, MEDICARE, MEDICAID, SELFPAY ==
[2023-04-27 17:23] VITALS: BP 133/88; PULSE 101; RESP 20; TEMP 36.8; O2SAT 95; BMI 49.8
--- NOTE | 2023-04-27 17:23 | ED.PSYCH ---
HPI - Psych General Chief Complaint: Psychiatric Symptoms Stated Complaint: crisis eval Time Seen by Provider: 04/27/23 17:38 Source: patient Mode of arrival: ambulatory Limitations: no limitations History of Present Illness HPI Narrative: 47 yo female with history of bipolar disorder, depression, HTN, HLD, migraines, anxiety, PCOS, obesity, JILLIAN, who presents to the ER from home c/o increased anxiety and SI x1 week. She states that last Saturday she was unable to fill her clozaril, she ended up having to take only 100 mg Saturday night when she usually takes 200 mg. She was able to refill the prescription on Saturday morning and has been taking it as directed since then. She reports since that 1 decreased dose she has had increased anxiety and stress. She is overwhelmed at home with multiple tasks that need to be done, cannot get herself to do them. She states she has had intermittent suicidal thoughts for years, occasionally thinking of driving off of a bridge. She denies any history of self-harm. She lives with her and daughter who both are aware she is here in her supportive of her. She denies any drugs or alcohol use. She reports eating, sleeping normally and normal hygiene. MD complaint: suicidal ideation, feels depressed and anxiety Onset (ago): week(s) (1) Duration: constant History of same: Yes Relieving factors: medication and therapy Exacerbating factors: none Associated psychiatric symptoms: depression and racing thoughts Associated symptoms: denies other symptoms Treatments prior to arrival: none If self harm: admits thoughts of self harm and has plan Details of plan: thinks about driving off of a bridge intermittently Related Data Home Medications Medication Instructions Recorded Confirmed pantoprazole 40 mg tablet,delayed 40 mg PO BID@0630,1630 11/22/20 04/27/23 release clozapine 100 mg tablet 200 mg PO BEDTIME 11/13/21 04/27/23 lisinopril 40 mg tablet 40 mg PO DAILY 11/13/21 04/27/23 sitagliptin phosphate 50 mg tablet 50 mg PO DAILY 04/17/22 04/27/23 (Januvia) clonazepam 1 mg tablet 1 mg PO BID anxiety 07/03/22 04/27/23 metformin 1,000 mg tablet 1,000 mg PO BIDWM 07/03/22 04/27/23 metoprolol succinate 50 mg 50 mg PO DAILY 07/03/22 04/27/23 tablet,extended release 24 hr mirabegron 50 mg tablet,extended 50 mg PO DAILY 07/03/22 04/27/23 release 24 hr (Myrbetriq) cetirizine 10 mg tablet 10 mg PO DAILY 04/27/23 04/27/23 Previous Rx's Medication Instructions Recorded dicyclomine 20 mg tablet 20 mg PO QID PRN abdominal pain 03/16/23 #20 tabs Allergies Allergy/AdvReac Type Severity Reaction Status Date / Time Penicillins [PENICILLINS] Allergy Severe ANAPHYLAXIS Verified 03/20/23 10:16 adhesive [ADHESIVE] Allergy Unknown RASH Verified 03/20/23 10:16 artichoke [ARTICHOKE] Allergy Unknown RASH Verified 03/20/23 10:16 carbamazepine [From TEGRETOL] Allergy Unknown MIGRAINES Verified 03/20/23 10:16 cariprazine [From VRAYLAR] Allergy Unknown LEG CRAMPS Verified 03/20/23 10:16 fentanyl [FENTANYL] Allergy Unknown RASH Verified 03/20/23 10:16 lamotrigine [From LAMICTAL] Allergy Unknown RASH Verified 03/20/23 10:16 lithium [LITHIUM] AdvReac Severe tremor and Verified 03/20/23 10:16 falls Review of Systems Review of Systems: Yes all other systems are reviewed and are negative PMFSH Past Medical History Medical History Anxiety Bipolar disease, chronic Depression Diabetes GERD (gastroesophageal reflux disease) High cholesterol Hypertension Migraines Morbid obesity with BMI of 45.0-49.9, adult Obstructive sleep apnea PCOS (polycystic ovarian syndrome) Pre-diabetes Renal colic Thrombosed external hemorrhoid Surgical History History of cholecystectomy History of dilation and curettage Family History Family History Father Coronary artery disease Other Breast cancer Social History Social History Household Members: Spouse and Children Housing: Apartment Do you presently have visiting nurse or other home services: No Alcohol intake: current Alcohol intake frequency: holidays/special occasions only Alcohol type: hard liquor Patient Tobacco Use Status: Tobacco use Unknown Tobacco use type: Cigarette Cigarette Packs Per Day: 1 Cigarettes Per Day: 20.0 Years Smoked: 30 +/- Substance Use Type: Marijuana Advance Directives: No Advance Directives Information Provided: Yes service: No Current occupational status: employed Physical Exam Vital Signs: Vital Signs: Last Vital Signs Temp 98.2 F 04/27/23 17:23 Pulse 101 H 04/27/23 17:23 Resp 20 04/27/23 17:23 BP 133/88 04/27/23 17:23 Pulse Ox 95 04/27/23 17:23 O2 Del Method Room Air 04/27/23 17:23 BMI result Body Mass Index 49.8 Appearance: Alert. Oriented X3. No acute distress. Head: normocephalic, atraumatic. Eyes: Pupils equal, round and reactive to light. ENT: Pharynx normal. No tonsillar swelling or exudate. Neck: Normal inspection. Neck supple. CVS: Normal heart rate and rhythm. Pulses normal. Respiratory: No respiratory distress. Breath sounds normal. Abdomen: Obese, Soft and nontender. +BS x4 Skin: Skin warm and dry. Normal skin color. Normal skin turgor. No rashes. Extremities: No lower extremity edema. No joint swelling. Neuro/psych: Oriented X 3. No motor deficit. No sensory deficit. CN II-XII intact. Normal speech and cognition. Makes eye contact. Depressed mood. Anxious. +SI no HI, vague. Course Course Course Narrative: RME: 47yo F w/PMHx anxiety, Bipolar, HTN, HLD, PCOS, JILLIAN, c/o increasing anxiety, panic attacks, depression & CP/SOB w/ +SI over the past week. Admits missed one dose of her Clozapine. States I am very tired Tearful, anxious in triage Labs, GIPSON, CARE consult ordered Full HPI, ROS and PE to be performed by primary ED provider. Medications Administered Generic Name Dose Route Start Last Admin Trade Name Freq PRN Reason Stop Dose Admin Clonazepam 1 mg 04/27/23 21:00 04/27/23 20:14 Clonazepam 1 Mg Tablet PO 1 mg BID CAROLE Administration Medical Decision Making Medical Decision Making MDM Narrative: 47-year-old female presenting to the ER for evaluation of increased anxiety and depression at home in the setting 1 decreased dose of clozaril about a week ago. Vague SI which she states is chronic, worsens at times of stress. She was complaining of chest tightness in the setting of her anxiety for the last several days. Troponin was negative, lab workup was negative. Patient was found to be opioid positive on her tox screen. Denies use. [employer] reviewed, previously prescribed narcotics intermittently over the last year. Patient seen and evaluated by the care team. At this time patient is not suicidal. She would like to go home with her . She has providers to follow-up with. Comfortable discharge home with outpatient follow-up. Safety plan discussed. Stable for discharge. Differential Diagnosis Differential Diagnoses: The differential diagnosis associated with the presentation includes substance induced mood disorder, acute psychosis, schizophrenia, schizoaffective disorder, PTSD, bipolar disorder, major depression with psychotic features Admission/Observation Consideration of admission/observation: Escalation of care including admission/observation considered Lab Data MDM Lab Attestation statement: I reviewed the patient's lab results. 04/27/23 17:48 04/27/23 17:48 Labs: Lab Results 04/27/23 04/27/23 04/27/23 Range/Units 17:48 17:48 17:48 WBC 11.1 H (4.8-10.8) X10*3/uL RBC 4.29 (4.20-5.50) X10*6/uL Hgb 13.6 (12.0-16.0) g/dl Hct 40.5 (37.0-47.0) % MCV 94.4 (80.0-98.0) fL MCH 31.7 (27.0-33.0) pg MCHC 33.6 (31.0-35.0) g/dl RDW 13.2 (11.0-16.0) % Plt Count 295 (160-400) X10*3/uL MPV 9.8 (9.4-12.3) fL Immature Gran % (Auto) 0.4 (0.0-0.4) % Neut % (Auto) 65.0 (45-73) % Lymph % (Auto) 29.0 (20-40) % Tucker % (Auto) 4.3 (2-11) % Eos % (Auto) 0.8 (0-4) % Baso % (Auto) 0.5 (0-2) % Lymph # (Auto) 3.2 (1.2-4.9) X10*3/uL Tucker # (Auto) 0.5 (0.1-1.2) X10*3/uL Eos # (Auto) 0.1 (0.0-0.4) X10*3/uL Baso # (Auto) 0.1 (0.0-0.2) X10*3/uL Abs Immat Gran (auto) 0.04 H (0.00-0.03) X10*3/uL Absolute Neuts (auto) 7.2 (2.0-8.3) x10*3/uL Absolute Nucleated RBC 0.000 (0.0-0.012) X10*3/uL Nucleated RBC % (auto) 0.0 (0.0-0.2) /100WBC Sodium 139 (135-145) mmol/L Potassium 3.7 (3.3-5.1) mmol/L Chloride 107 (96-108) mmol/L Carbon Dioxide 22 (22-29) mmol/L Anion Gap 14 (12-20) BUN 6 L (9-16) mg/dL Creatinine 0.65 (0.5-1.4) mg/dL Estim Creat Clear Calc 159.9 Estimated GFR > 60 Random Glucose 125 H (60-115) mg/dL Calcium 9.3 D (8.4-10.2) mg/dL Magnesium 1.9 (1.6-2.6) mg/dL Total Bilirubin 0.2 (0.0-1.0) mg/dL Direct Bilirubin < 0.2 (0.0-0.5) mg/dL AST 25 (5-31) U/L ALT 40 H (0-31) U/L Alkaline Phosphatase 67 (39-117) U/L Troponin I High Sens < 2.7 (<3.5-17.0) ng/L Total Protein 7.2 (6.5-8.0) g/dL Albumin 4.3 (3.5-5.0) g/dL Urine Color Urine Appearance Urine pH (5.0-9.0) Ur Specific [place] (1.005-1.025) Urine Protein (Neg-Trace) mg/dL Urine Glucose (UA) (Negative) mg/dL Urine Ketones (Negative) mg/dL Urine Blood (Negative) Urine Nitrite (Negative) Ur Leukocyte Esterase (Negative) Urine RBC (0-2) /HPF Urine WBC (0-5) /HPF Ur Squamous Epith Cells (0-2) /HPF Urine Bacteria (None Seen) Hyaline Casts (0-2) /LPF Urine Test (NEGATIVE) Urine Opiates Screen (Not Detect) Urine Fentanyl Screen (Not Detect) Ur Barbiturates Screen (Not Detect) Ur Phencyclidine Scrn (Not Detect) Ur Amphetamines Screen (Not Detect) U Benzodiazepines Scrn (Not Detect) Urine Cocaine Screen (Not Detect) U Marijuana (THC) Screen (Not Detect) Ethyl Alcohol < 10 mg/dL COVID-19 (ANA) (Negative) COVID-19 Clin Com 04/27/23 04/27/23 04/27/23 Range/Units 17:48 17:48 17:48 WBC (4.8-10.8) X10*3/uL RBC (4.20-5.50) X10*6/uL Hgb (12.0-16.0) g/dl Hct (37.0-47.0) % MCV (80.0-98.0) fL MCH (27.0-33.0) pg MCHC (31.0-35.0) g/dl RDW (11.0-16.0) % Plt Count (160-400) X10*3/uL MPV (9.4-12.3) fL Immature Gran % (Auto) (0.0-0.4) % Neut % (Auto) (45-73) % Lymph % (Auto) (20-40) % Tucker % (Auto) (2-11) % Eos % (Auto) (0-4) % Baso % (Auto) (0-2) % Lymph # (Auto) (1.2-4.9) X10*3/uL Tucker # (Auto) (0.1-1.2) X10*3/uL Eos # (Auto) (0.0-0.4) X10*3/uL Baso # (Auto) (0.0-0.2) X10*3/uL Abs Immat Gran (auto) (0.00-0.03) X10*3/uL Absolute Neuts (auto) (2.0-8.3) x10*3/uL Absolute Nucleated RBC (0.0-0.012) X10*3/uL Nucleated RBC % (auto) (0.0-0.2) /100WBC Sodium (135-145) mmol/L Potassium (3.3-5.1) mmol/L Chloride (96-108) mmol/L Carbon Dioxide (22-29) mmol/L Anion Gap (12-20) BUN (9-16) mg/dL Creatinine (0.5-1.4) mg/dL Estim Creat Clear Calc Estimated GFR Random Glucose (60-115) mg/dL Calcium (8.4-10.2) mg/dL Magnesium (1.6-2.6) mg/dL Total Bilirubin (0.0-1.0) mg/dL Direct Bilirubin (0.0-0.5) mg/dL AST (5-31) U/L ALT (0-31) U/L Alkaline Phosphatase (39-117) U/L Troponin I High Sens (<3.5-17.0) ng/L Total Protein (6.5-8.0) g/dL Albumin (3.5-5.0) g/dL Urine Color Yellow Urine Appearance Clear Urine pH 6.0 (5.0-9.0) Ur Specific [place] 1.015 (1.005-1.025) Urine Protein Negative (Neg-Trace) mg/dL Urine Glucose (UA) Negative (Negative) mg/dL Urine Ketones Trace (Negative) mg/dL Urine Blood Negative (Negative) Urine Nitrite Negative (Negative) Ur Leukocyte Esterase Negative (Negative) Urine RBC 3-5 H (0-2) /HPF Urine WBC 11-20 H (0-5) /HPF Ur Squamous Epith Cells 11-20 (0-2) /HPF Urine Bacteria 4+ (None Seen) Hyaline Casts 3-5 (0-2) /LPF Urine Test (NEGATIVE) Urine Opiates Screen POSITIVE H (Not Detect) Urine Fentanyl Screen Not Detected (Not Detect) Ur Barbiturates Screen Not Detected (Not Detect) Ur Phencyclidine Scrn Not Detected (Not Detect) Ur Amphetamines Screen Not Detected (Not Detect) U Benzodiazepines Scrn Not Detected (Not Detect) Urine Cocaine Screen Not Detected (Not Detect) U Marijuana (THC) Screen POSITIVE H (Not Detect) Ethyl Alcohol mg/dL COVID-19 (ANA) Negative (Negative) COVID-19 Clin Com See Note 04/27/23 Range/Units 17:48 WBC (4.8-10.8) X10*3/uL RBC (4.20-5.50) X10*6/uL Hgb (12.0-16.0) g/dl Hct (37.0-47.0) % MCV (80.0-98.0) fL MCH (27.0-33.0) pg MCHC (31.0-35.0) g/dl RDW (11.0-16.0) % Plt Count (160-400) X10*3/uL MPV (9.4-12.3) fL Immature Gran % (Auto) (0.0-0.4) % Neut % (Auto) (45-73) % Lymph % (Auto) (20-40) % Tucker % (Auto) (2-11) % Eos % (Auto) (0-4) % Baso % (Auto) (0-2) % Lymph # (Auto) (1.2-4.9) X10*3/uL Tucker # (Auto) (0.1-1.2) X10*3/uL Eos # (Auto) (0.0-0.4) X10*3/uL Baso # (Auto) (0.0-0.2) X10*3/uL Abs Immat Gran (auto) (0.00-0.03) X10*3/uL Absolute Neuts (auto) (2.0-8.3) x10*3/uL Absolute Nucleated RBC (0.0-0.012) X10*3/uL Nucleated RBC % (auto) (0.0-0.2) /100WBC Sodium (135-145) mmol/L Potassium (3.3-5.1) mmol/L Chloride (96-108) mmol/L Carbon Dioxide (22-29) mmol/L Anion Gap (12-20) BUN (9-16) mg/dL Creatinine (0.5-1.4) mg/dL Estim Creat Clear Calc Estimated GFR Random Glucose (60-115) mg/dL Calcium (8.4-10.2) mg/dL Magnesium (1.6-2.6) mg/dL Total Bilirubin (0.0-1.0) mg/dL Direct Bilirubin (0.0-0.5) mg/dL AST (5-31) U/L ALT (0-31) U/L Alkaline Phosphatase (39-117) U/L Troponin I High Sens (<3.5-17.0) ng/L Total Protein (6.5-8.0) g/dL Albumin (3.5-5.0) g/dL Urine Color Urine Appearance Urine pH (5.0-9.0) Ur Specific [place] (1.005-1.025) Urine Protein (Neg-Trace) mg/dL Urine Glucose (UA) (Negative) mg/dL Urine Ketones (Negative) mg/dL Urine Blood (Negative) Urine Nitrite (Negative) Ur Leukocyte Esterase (Negative) Urine RBC (0-2) /HPF Urine WBC (0-5) /HPF Ur Squamous Epith Cells (0-2) /HPF Urine Bacteria (None Seen) Hyaline Casts (0-2) /LPF Urine Test NEGATIVE (NEGATIVE) Urine Opiates Screen (Not Detect) Urine Fentanyl Screen (Not Detect) Ur Barbiturates Screen (Not Detect) Ur Phencyclidine Scrn (Not Detect) Ur Amphetamines Screen (Not Detect) U Benzodiazepines Scrn (Not Detect) Urine Cocaine Screen (Not Detect) U Marijuana (THC) Screen (Not Detect) Ethyl Alcohol mg/dL COVID-19 (ANA) (Negative) COVID-19 Clin Com External Record Review External record reviewed: Outpatient record and Prior outpatient labs Chronic Conditions Patient?s care impacted by: Other (Bipolar disorder) Social Determinants Patient?s care significantly limited by Social Determinants of Health including: Problems related to primary support group and Other Social Determinant of Health Critical Care Time Critical Care Time Critical Care Time: No Discharge Plan Discharge Clinical Impression: Bipolar disorder Patient Disposition: Home, Self-Care Instructions: Bipolar Disorder (ED) Additional Instructions: take all of you medications as prescribed follow up with your providers and therapist If you develop new or worsening symptoms call 911 or come back to the ER for further evaluation. Prescriptions: No Action Myrbetriq 50 mg tablet extended release 24 hr 50 mg PO DAILY clozapine 100 mg tablet 200 mg PO BEDTIME lisinopril 40 mg tablet 40 mg PO DAILY clonazepam 1 mg tablet 1 mg PO BID metformin 1,000 mg tablet 1,000 mg PO BIDWM metoprolol succinate 50 mg tablet extended release 24 hr 50 mg PO DAILY Januvia 50 mg tablet 50 mg PO DAILY cetirizine 10 mg tablet 10 mg PO DAILY dicyclomine 20 mg tablet 20 mg PO QID PRN (Reason: abdominal pain) Qty: 20 0RF pantoprazole 40 mg tablet,delayed release (DR/EC) 40 mg PO BID@0630,1630 Interventions: [place]-Suicide Risk Severity Scale Last Done: 04/27/23 17:57
[2023-04-27 17:59] LABS: MANUAL DIFF FLAG NO
[2023-04-27 18:02] LABS: Basophils Absolute Auto 0.1 X10*3/uL (0.0-0.2); Basophils Percent Auto 0.5 % (0-2); Eosinophils Absolute Auto 0.1 X10*3/uL (0.0-0.4); Eosinophils Percent Auto 0.8 % (0-4); Hematocrit 40.5 % (37.0-47.0); Hemoglobin 13.6 g/dl (12.0-16.0); Imm Gran Abs Auto 0.04 X10*3/uL (0.00-0.03); Imm Gran Pct Auto 0.4 % (0.0-0.4); Lymphocytes Absolute Auto 3.2 X10*3/uL (1.2-4.9); Mean Corpuscular HGB Conc 33.6 g/dl (31.0-35.0); Mean Corpuscular Hemoglobin 31.7 pg (27.0-33.0); Mean Corpuscular Volume 94.4 fL (80.0-98.0); Mean Platelet Volume 9.8 fL (9.4-12.3); Monocytes Absolute Auto 0.5 X10*3/uL (0.1-1.2); Monocytes Percent Auto 4.3 % (2-11); Neutrophils Absolute Auto 7.2 x10*3/uL (2.0-8.3); Platelet Count 295 X10*3/uL (160-400); Red Blood Count 4.29 X10*6/uL (4.20-5.50); Red Cell Distribution Width 13.2 % (11.0-16.0); White Blood Count 11.1 X10*3/uL (4.8-10.8)
[2023-04-27 18:08] LABS: Appearance Urine Clear; Color Urine Yellow; Glucose Urine UA Negative (Negative); Leukocyte Esterase Urine Negative (Negative); Nitrite Urine Negative (Negative); Specific Gravity - Urine 1.015 (1.005-1.025); UPreg QC Valid YES; Urine Blood Negative (Negative); Urine Ketones Trace mg/dL (Negative); Urine Pregnancy NEGATIVE (NEGATIVE); Urine Protein Negative (Neg-Trace)
[2023-04-27 18:10] LABS: Amphetamine Screen Urine Not Detected (Not Detect); Barbiturates, Urine Not Detected (Not Detect); Benzodiazepines Screen Urine Not Detected (Not Detect); Cannabinoid Screen Urine POSITIVE (Not Detect); Cocaine Screen Urine Not Detected (Not Detect); Fentanyl, urine Not Detected (Not Detect); Opiate Screen Urine POSITIVE (Not Detect); Phencyclidine Screen Urine Not Detected (Not Detect)
[2023-04-27 18:15] LABS: Bacteria Urine 4+ (None Seen); UACC Culture Trigger YES
--- NOTE | 2023-04-27 18:15 | PC.NURSE ---
Felicia self presented to the ED after feeling increasing hopelessness x 1 week after missing all of her scheduled medications last Saturday. Felicia reports she has been fighting these feelings all week . Felicia admits to having some SI but reports that is baseline for her and never truly goes away. Felicia denies intent and verbalizes she can remain safe while in the hospital. Appetite fair. Med rec done and diabetic order placed. Felicia reports she is not on insulin but takes metformin and januvia to control her BS.
[2023-04-27 18:16] LABS: Alanine Aminotransferase 40 U/L (0-31); Albumin Level 4.3 g/dL (3.5-5.0); Alkaline Phosphatase 67 U/L (39-117); Anion Gap 14 (12-20); Aspartate Amino Transferase 25 U/L (5-31); Bilirubin Direct < 0.2 mg/dL (0.0-0.5); Bilirubin Total 0.2 mg/dL (0.0-1.0); Blood Urea Nitrogen 6 mg/dL (9-16); Calcium 9.3 mg/dL (8.4-10.2); Carbon Dioxide 22 mmol/L (22-29); Chloride 107 mmol/L (96-108); Creatinine Clr Calc Pharmacy 159.9; Estimated Glomerular Filt Rate > 60; Glucose Random 125 mg/dL (60-115); Magnesium 1.9 mg/dL (1.6-2.6); Potassium 3.7 mmol/L (3.3-5.1); Sodium 139 mmol/L (135-145); Total Protein 7.2 g/dL (6.5-8.0)
[2023-04-27 18:25] LABS: COVID-19 Test Negative (Negative); IDNOW Serial# 08D9AD1C
[2023-04-27 18:34] LABS: Troponin-I High Sensitivity < 2.7 ng/L (<3.5-17.0)
[2023-04-27 19:32] LABS: Ethanol < 10 mg/dL
[2023-04-27] MEDS: clonazePAM 1 MG TABLET PO (20:14)
[2023-04-27] MEDS: metFORMIN HCl 1,000 MG TABLET 1000 MG PO (21:24)
[2023-04-27] MEDS: cloZAPine 100 MG TABLET 200 MG PO (21:24)
== END 2023-04-27 21:30 | disposition home or self-care (01) ==
PROVIDERS: Physician Assistant; Emergency Provider Student in an Organized Health Care Education/Training Program; PCP Internal Medicine
DX: F31.9 Bipolar disorder, unspecified (principal); R45.851 Suicidal ideations; R06.02 Shortness of breath; F41.9 Anxiety disorder, unspecified; E11.9 Type 2 diabetes mellitus without complications; I10 Essential (primary) hypertension; E78.5 Hyperlipidemia, unspecified; E66.01 Morbid (severe) obesity due to excess calories; Z68.42 Body mass index [BMI] 45.0-49.9, adult; F17.210 Nicotine dependence, cigarettes, uncomplicated; F12.90 Cannabis use, unspecified, uncomplicated; Z79.899 Other long term (current) drug therapy; Z20.822 Contact with and (suspected) exposure to COVID-19
CPT/HCPCS: 80048; 80076; 80307; 81001; 81025; 83735; 84484; 85025; 87086; 87635; 99284; S9485

== ENCOUNTER 2023-04-30 20:13 | Emergency (ER) | payer BC, MEDICARE, MEDICAID, SELFPAY ==
--- NOTE | ~2023-04-30 | XR_ITS ---
EXAMINATION: XR CHEST 2 VIEWS CLINICAL INFORMATION: Shortness of breath. COMPARISON: Radiographs dated 12/09/2022. TECHNIQUE: Frontal and lateral views of the chest were obtained. FINDINGS: The heart, great vessels, pulmonary vasculature and mediastinum are normal. The lungs show no focal infiltrate, effusion or pneumothorax. There is no acute osseous abnormality. XR/XR chest 2V IMPRESSION: No active cardiopulmonary disease.
[2023-04-30 20:50] VITALS: BP 158/93; PULSE 101; RESP 16; TEMP 37.4; O2SAT 94; BMI 50.0
[2023-04-30 22:11] LABS: Influenza A PCR NEGATIVE (Negative); Influenza B PCR NEGATIVE (Negative); Resp Syncy Virus RNA Qual PCR NEGATIVE (Negative); SARS COV2 PCR INHOUSE NEGATIVE (Negative)
[2023-04-30 23:41] VITALS: BP 122/70; PULSE 93; RESP 18; TEMP 36.6; O2SAT 95
--- NOTE | 2023-05-01 00:41 | ED_ITS ---
HPI - URI/Sore Throat General Chief Complaint: Upper Respiratory Symptoms Stated Complaint: Difficulty breathing Time Seen by Provider: 05/01/23 00:01 Source: patient Mode of arrival: ambulatory Limitations: no limitations History of Present Illness HPI Narrative: Patient is a 47-year-old female who presents to the emergency department for evaluation of cold-like symptoms. She reports or days with progressive wo rsening sore throat, headache, chills with subjective fever, productive cough with yellow phlegm, and nasal congestion. Reports history of similar symptoms associated with a bronchitis. She denies any known sick contacts. She states that she has a history of pneumonia, she had left over albuterol nebulizers that she trialed without any significant improvement. Related Data Home Medications Medication Instructions Recorded Confirmed pantoprazole 40 mg tablet,delayed 40 mg PO BID@0630,1630 11/22/20 04/27/23 release clozapine 100 mg tablet 200 mg PO BEDTIME 11/13/21 04/27/23 lisinopril 40 mg tablet 40 mg PO DAILY 11/13/21 04/27/23 sitagliptin phosphate 50 mg tablet 50 mg PO DAILY 04/17/22 04/27/23 (Januvia) clonazepam 1 mg tablet 1 mg PO BID anxiety 07/03/22 04/27/23 metformin 1,000 mg tablet 1,000 mg PO BIDWM 07/03/22 04/27/23 metoprolol succinate 50 mg 50 mg PO DAILY 07/03/22 04/27/23 tablet,extended release 24 hr mirabegron 50 mg tablet,extended 50 mg PO DAILY 07/03/22 04/27/23 release 24 hr (Myrbetriq) cetirizine 10 mg tablet 10 mg PO DAILY 04/27/23 04/27/23 Previous Rx's Medication Instructions Recorded dicyclomine 20 mg tablet 20 mg PO QID PRN abdominal pain 03/16/23 #20 tabs albuterol sulfate 90 mcg/actuation 2 puff inhalation Q4-6H PRN 05/01/23 aerosol inhaler (Proventil HFA) shortness of breath or wheezing #6.7 grams azithromycin 250 mg tablet See Rx Instructions PO .COMPLEX #6 05/01/23 tabs Allergies Allergy/AdvReac Type Severity Reaction Status Date / Time Penicillins [PENICILLINS] Allergy Severe ANAPHYLAXIS Verified 03/20/23 10:16 adhesive [ADHESIVE] Allergy Unknown RASH Verified 03/20/23 10:16 artichoke [ARTICHOKE] Allergy Unknown RASH Verified 03/20/23 10:16 carbamazepine [From TEGRETOL] Allergy Unknown MIGRAINES Verified 03/20/23 10:16 cariprazine [From VRAYLAR] Allergy Unknown LEG CRAMPS Verified 03/20/23 10:16 fentanyl [FENTANYL] Allergy Unknown RASH Verified 03/20/23 10:16 lamotrigine [From LAMICTAL] Allergy Unknown RASH Verified 03/20/23 10:16 lithium [LITHIUM] AdvReac Severe tremor and Verified 03/20/23 10:16 falls Review of Systems Review of Systems: Constitutional: Positive fever. Positive chills. No weakness. Positive fatigue. ENT/ Mouth: No Ear Pain, positive Nasal Congestion, positive sore throat, No Rhinorrhea, No Swallowing Difficulty Skin: No rash or itching. Cardiovascular: No chest pain. No palpitations. Respiratory: No shortness of breath. Positive cough. No sputum production. Gastrointestinal: No nausea. No vomiting. No diarrhea. No abdominal pain. Genitourinary: No burning micturition. No urinary frequency. Neurologic: No headache. No dizziness. No syncope. No numbness or tingling in the extremities. Musculoskeletal: No muscle pain. No back pain. No joint pain or stiffness. Yes all other systems are reviewed and are negative [facility] Past Medical History Attestation statement: The following information was validated with the patient. Source: old records reviewed Medical History Anxiety Bipolar disease, chronic Depression Diabetes GERD (gastroesophageal reflux disease) High cholesterol Hypertension Migraines Morbid obesity with BMI of 45.0-49.9, adult Obstructive sleep apnea PCOS (polycystic ovarian syndrome) Pre-diabetes Renal colic Thrombosed external hemorrhoid Surgical History History of cholecystectomy History of dilation and curettage Family History Family History Father Coronary artery disease Other Breast cancer Social History Social History Household Members: Spouse and Children Housing: Apartment Do you presently have visiting nurse or other home services: No Alcohol intake: never Patient Tobacco Use Status: Tobacco use Unknown Tobacco use type: Cigarette Cigarette Packs Per Day: 1 Cigarettes Per Day: 20.0 Years Smoked: 30 +/- Smoked in Last 30 Days: Yes Use of substances other than those prescribed or required for medical reasons: No Substance Use Type: Marijuana Advance Directives: No Advance Directives Information Provided: No Patient : No service: No Current occupational status: employed Physical Exam Vital Signs: Vital Signs: Last Vital Signs Temp 97.8 F 04/30/23 23:41 Pulse 93 04/30/23 23:41 Resp 18 04/30/23 23:41 BP 122/70 04/30/23 23:41 Pulse Ox 95 04/30/23 23:41 O2 Del Method Room Air 04/30/23 23:41 BMI result Body Mass Index 50.0 Vital signs have been reviewed as normal and appeared to be correct. Blood pressure normal.? Heart rate normal.? Respiration rate normal. Temperature normal.? Oxygen saturation normal. Appearance: Alert.?Oriented to person, place and time. No acute distress.?Normal affect. Eyes: Pupils equal, round and reactive to light.? ENT: TM normal bilaterally. Pharynx normal.?? Neck: Normal inspection.? Neck supple.??No cervical adenopathy CVS: Heart sounds normal. Normal heart rate and rhythm.? Pulses normal.?? Respiratory: No respiratory distress.? Lung sounds clear to auscultation bilaterally?? Abdomen: Soft and non-tender. Normoactive bowel sounds. Skin: Skin warm and dry.? Normal skin color.? ? Extremities: No lower extremity edema.? Neuro: Moves all extremities spontaneously. Sensation intact bilaterally. No motor deficits. Ambulates with normal steady gait. Medical Decision Making Medical Decision Making MDM Narrative: Patient is a 47-year-old female with past medical history of anxiety, depression, bipolar disorder, GERD, hypertension, JILLIAN on CPAP, presenting for evaluation of upper respiratory symptoms.? COVID-19 testing negative.? Influenza testing negative.? At this time history and physical exam not consistent with ACS/PE. Most consistent with upper respiratory infection, acute bronchitis. Chest x-ray shows no evidence of pneumonia. She is overall Well-appearing, nontoxic, afebrile, no tachycardia or tachypnea/hypoxia.? Lung sounds are clear. Speaking clear full sentences, ambulatory with steady gait.? Discussed conservative treatment including rest, hydration, Tylenol/ibuprofen as needed for fever and body aches, saline nasal spray, humidifier, will send prescription for albuterol inhaler to pharmacy, and course of azithromycin Advised to follow-up with primary care provider as needed, discussed reasons to return back to the emergency department.? All questions were answered.? Patient discharged home in stable condition.? Differential Diagnosis Differential Diagnoses: The differential diagnosis associated with the presentation includes (As noted above) Lab Data MDM Lab Attestation statement: I reviewed the patient's lab results. Labs: Lab Results 04/30/23 Range/Units 21:07 Influenza Type A (PCR) NEGATIVE (Negative) Influenza Type B (PCR) NEGATIVE (Negative) RSV RNA Qual (PCR) NEGATIVE (Negative) SARS-CoV-2 RNA (RT-PCR) NEGATIVE (Negative) Independent Interpretation I performed an independent interpretation of an: Plain X-Ray (I personally interpreted chest x-ray and agree with radiologist impression, no evidence of pneumonia or pneumothorax) Radiology Impression Discussion of test interpretation with radiology: I have reviewed the radiologist's reading. Radiologist Impression: XR/XR chest 2V IMPRESSION: No active cardiopulmonary disease.? Prescription Management I considered prescription management with: Antibiotic Discharge Plan Discharge Clinical Impression: Bronchitis Patient Disposition: Home, Self-Care Instructions: Acute Bronchitis (ED) Prescriptions: New albuterol sulfate [Proventil HFA] 90 mcg/actuation HFA aerosol inhaler 2 puff inhalation Q4-6H PRN (Reason: shortness of breath or wheezing) Qty: 6.7 0RF azithromycin 250 mg tablet See Rx Instructions .ROUTE .COMPLEX Qty: 6 0RF Rx Instructions: For 250 mg dose pack: take 500 mg today (day 1), then 250 mg for 4 days (days 2-5) No Action Myrbetriq 50 mg tablet extended release 24 hr 50 mg PO DAILY clozapine 100 mg tablet 200 mg PO BEDTIME lisinopril 40 mg tablet 40 mg PO DAILY clonazepam 1 mg tablet 1 mg PO BID metformin 1,000 mg tablet 1,000 mg PO BIDWM metoprolol succinate 50 mg tablet extended release 24 hr 50 mg PO DAILY Januvia 50 mg tablet 50 mg PO DAILY cetirizine 10 mg tablet 10 mg PO DAILY dicyclomine 20 mg tablet 20 mg PO QID PRN (Reason: abdominal pain) Qty: 20 0RF pantoprazole 40 mg tablet,delayed release (DR/EC) 40 mg PO BID@0630,1630 Referrals: Ann-Marie Camacho MD [Primary Care Provider] -
== END 2023-05-01 01:00 | disposition home or self-care (01) ==
PROVIDERS: Emergency Provider Internal Medicine; PCP Internal Medicine
DX: J40 Bronchitis, not specified as acute or chronic (principal); R06.02 Shortness of breath; Z20.822 Contact with and (suspected) exposure to COVID-19; Z20.828 Contact with and (suspected) exposure to other viral communicable diseases
CPT/HCPCS: 0241U; 71046; 99283; 99284

== ENCOUNTER 2023-05-15 10:57 | Outpatient (REF) | payer BC, MEDICARE, MEDICAID, SELFPAY ==
[2023-05-15 11:15] LABS: MANUAL DIFF FLAG NO
[2023-05-15 13:00] LABS: Basophils Percent Auto 0.3 % (0-2); Eosinophils Absolute Auto 0.1 X10*3/uL (0.0-0.4); Eosinophils Percent Auto 0.9 % (0-4); Hematocrit 41.5 % (37.0-47.0); Hemoglobin 13.7 g/dl (12.0-16.0); Imm Gran Abs Auto 0.02 X10*3/uL (0.00-0.03); Imm Gran Pct Auto 0.2 % (0.0-0.4); Lymphocytes Absolute Auto 2.6 X10*3/uL (1.2-4.9); Mean Corpuscular Hemoglobin 30.6 pg (27.0-33.0); Mean Corpuscular Volume 92.8 fL (80.0-98.0); Mean Platelet Volume 10.3 fL (9.4-12.3); Monocytes Absolute Auto 0.5 X10*3/uL (0.1-1.2); Monocytes Percent Auto 4.3 % (2-11); Neut%MD 69.3 %; Neutrophils Absolute Auto 7.3 x10*3/uL (2.0-8.3); Neutrophils Percent Auto 69.3 % (45-73); Platelet Count 310 X10*3/uL (160-400); Red Blood Count 4.47 X10*6/uL (4.20-5.50); Red Cell Distribution Width 13.1 % (11.0-16.0); WBCANC 10.6 X10*3/uL; White Blood Count 10.6 X10*3/uL (4.8-10.8)
[2023-05-16 11:54] LABS: Immunoglobulin E 46 kU/L (<OR=114)
== END 2023-05-15 10:58 | disposition home or self-care (01) ==
LOC: HO.LAB 10:57
PROVIDERS: PCP Internal Medicine; Referring Provider Internal Medicine; Visit Provider Clinical Nurse Specialist Psychiatric/Mental Health, Child & Adolescent
DX: Z79.899 Other long term (current) drug therapy (principal)
CPT/HCPCS: 36415; 82785; 85025

== ENCOUNTER 2023-06-03 17:55 | Emergency (ER) | payer BC, MEDICARE, MEDICAID, SELFPAY ==
[2023-06-03 18:49] VITALS: BP 151/87; PULSE 97; RESP 16; TEMP 36.3; O2SAT 95; BMI 49.8
--- NOTE | 2023-06-03 18:49 | ED.GENADULT ---
HPI - General Adult General Chief complaint: General Medical Stated complaint: facial swelling, eye droop, lips numb, palpitation Time Seen by Provider: 06/03/23 20:19 Source: patient Mode of arrival: ambulatory Limitations: no limitations History of Present Illness HPI narrative: 48-year-old female history of GERD, bipolar, hypertension, presents to the ED for right eye droop, tingling of the lips, facial pain, and she thinks her right side of her face neck is swollen. Patient states she woke up with these symptoms this morning. Patient denies any drooling, change in voice, neck pain, fever, chills, recent trauma, recent dental work, chest pain, shortness of breath, or sore throat Related Data Home Medications Medication Instructions Recorded Confirmed pantoprazole 40 mg tablet,delayed 40 mg PO BID@0630,1630 11/22/20 04/27/23 release clozapine 100 mg tablet 200 mg PO BEDTIME 11/13/21 04/27/23 lisinopril 40 mg tablet 40 mg PO DAILY 11/13/21 04/27/23 sitagliptin phosphate 50 mg tablet 50 mg PO DAILY 04/17/22 04/27/23 (Januvia) clonazepam 1 mg tablet 1 mg PO BID anxiety 07/03/22 04/27/23 metformin 1,000 mg tablet 1,000 mg PO BIDWM 07/03/22 04/27/23 metoprolol succinate 50 mg 50 mg PO DAILY 07/03/22 04/27/23 tablet,extended release 24 hr mirabegron 50 mg tablet,extended 50 mg PO DAILY 07/03/22 04/27/23 release 24 hr (Myrbetriq) cetirizine 10 mg tablet 10 mg PO DAILY 04/27/23 04/27/23 Previous Rx's Medication Instructions Recorded dicyclomine 20 mg tablet 20 mg PO QID PRN abdominal pain 03/16/23 #20 tabs albuterol sulfate 90 mcg/actuation 2 puff inhalation Q4-6H PRN 05/01/23 aerosol inhaler (Proventil HFA) shortness of breath or wheezing #6.7 grams azithromycin 250 mg tablet See Rx Instructions PO .COMPLEX #6 05/01/23 tabs Allergies Allergy/AdvReac Type Severity Reaction Status Date / Time Penicillins [PENICILLINS] Allergy Severe ANAPHYLAXIS Verified 03/20/23 10:16 adhesive [ADHESIVE] Allergy Unknown RASH Verified 03/20/23 10:16 artichoke [ARTICHOKE] Allergy Unknown RASH Verified 03/20/23 10:16 carbamazepine [From TEGRETOL] Allergy Unknown MIGRAINES Verified 03/20/23 10:16 cariprazine [From VRAYLAR] Allergy Unknown LEG CRAMPS Verified 03/20/23 10:16 fentanyl [FENTANYL] Allergy Unknown RASH Verified 03/20/23 10:16 lamotrigine [From LAMICTAL] Allergy Unknown RASH Verified 03/20/23 10:16 lithium [LITHIUM] AdvReac Severe tremor and Verified 03/20/23 10:16 falls Review of Systems Review of Systems: Right eye droop, facial pain, lip tingling/numbness, sensation of throat neck swelling Yes all other systems are reviewed and are negative [facility] Past Medical History Medical History Anxiety Bipolar disease, chronic Depression Diabetes GERD (gastroesophageal reflux disease) High cholesterol Hypertension Migraines Morbid obesity with BMI of 45.0-49.9, adult Obstructive sleep apnea PCOS (polycystic ovarian syndrome) Pre-diabetes Renal colic Thrombosed external hemorrhoid Surgical History History of cholecystectomy History of dilation and curettage Family History Family History Father Coronary artery disease Other Breast cancer Social History Social History Household Members: Spouse and Children Housing: Apartment Do you presently have visiting nurse or other home services: No Alcohol intake: never Patient Tobacco Use Status: Tobacco use Unknown Tobacco use type: Cigarette Cigarette Packs Per Day: 1 Cigarettes Per Day: 20.0 Years Smoked: 30 +/- Smoked in Last 30 Days: No Use of substances other than those prescribed or required for medical reasons: No Substance Use Type: Marijuana Advance Directives: No Advance Directives Information Provided: No service: No Current occupational status: employed Physical Exam ED Vital Signs: Vital Signs - 24 hr 06/03/23 22:15 Temperature 97.4 F Pulse Rate 81 Respiratory Rate 16 Blood Pressure 148/76 H Pulse Oximetry 98 Oxygen Delivery Method Room Air BMI result Body Mass Index 49.8 Const General: cooperative, healthy appearing, comfortable, no acute distress, well developed, alert, awake and Physically active Orientation/consciousness: oriented to person, oriented to place, oriented to time and patient oriented x3 HENMT Other: Negative for any facial swelling. Negative for neck swelling. Patient speaking in full sentences. Negative for drooling. Negative for trismus. Negative for any facial droop or eye drooping. Head: Yes normal to inspection, Yes No palpable skull fracture present, Yes normocephalic, Yes atraumatic and No abrasion Ears: hearing grossly normal bilaterally, external ears normal, TM's normal bilaterally, TM normal on the right, TM normal on the left, EAC's normal, mastoids normal and no periauricular adenopathy Face and sinus: Yes sinus tenderness (Maxillary) Mouth: Normal oral and palatal mucosa present, lip normal and tongue normal Throat: Yes posterior oropharynx normal, Yes tonsils normal and Yes uvula midline Eyes General: appearance normal, both eyes and all related structures Visual Valdez: normal visual valdez by confrontation Alignment and Position: alignment normal Periorbital: periorbital findings normal Eyelids: Yes eyelids normal Conjunctivae: conjunctivae normal Sclerae: sclerae normal Corneas: corneas normal Pupils: Equal, round and reactive pupils present Neck Neck: Yes normal visual inspection, Yes full ROM, Yes no lymphadenopathy, Yes no meningeal signs, Yes trachea midline, Yes supple, No anterior neck swelling and No tender Chest Chest palpation & inspection: normal inspection of the chest and normal palpation of entire chest wall Resp Effort & Inspection: normal respiratory effort and able to speak in complete sentences Auscultation: clear to auscultation bilaterally Cardio Jugular venous distension: no JVD Heart sounds: S1 normal heart sound present and S2 normal heart sound present GI Inspection: Yes normal to inspection and No abdominal wall ecchymosis Palpation (GI): Soft to palpation, not firm, nontender, no guarding and not rigid General: No CVA tenderness and Yes no CVA tenderness Back/Spine/Pelvis Back: no CVA tenderness, No CVA tenderness and No back tenderness Skin General skin exam: no rashes or lesions noted, elasticity normal and turgor normal Neuro General: oriented to person, oriented to place, oriented to time, patient oriented x3, gait normal, tone normal, moves all extremities, Normal light touch and pain sensation, no meningeal signs, no focal motor deficits, CN's II-XI intact bilaterally and normal sensation to monofilament Cranial nerves: Yes Equal, round and reactive pupils present Extrem General: Yes normal to inspection and Yes full ROM Psych Appearance: grossly normal, well kempt and not disheveled Course Course Course Narrative: RME performed by Park Graham PA-C. Patient is a 48 year old assigned female at presenting to the emergency department with neck swelling. Labs ordered. Patient placed back in the waiting room pending room availability and results. Medical Decision Making Medical Decision Making [facility] Narrative: 48-year-old female with Bipolar, hypertension presents to ED for facial pain, right eye drooping, lips tingling, sensation of neck swelling since this morning. Presently does new neuro deficits. NIH score 0. Patient does not have any facial or neck swelling. Mild maxillary sinus tenderness on palpation. Patient speaking in full sentence. Negative for drooling, change in voice, or trismus. Oral cavity normal. Due to patient stating tingling and right eye drooping and facial pain patient was sent for his CT scan which was negative. No need for soft tissue neck CT scan not suspecting Tyron angina, retropharyngeal abscess, peritonsillar abscess, any life-threatening etiology. Not suspecting anaphylaxis. Not suspecting Guardado palsy. Case disscussed with Dr. Yoo and he seen face of patient. Differential Diagnosis Differential Diagnoses: The differential diagnosis associated with the presentation includes (Guardado's palsy, stroke, migraine, paresthesia, sinusitis,) Consult Healthcare Provider Management of the patient was discussed with: Feather Duster Winder Lab Data 06/03/23 19:11 06/03/23 19:11 Labs: Lab Results 06/03/23 Range/Units 19:11 WBC 9.7 (4.8-10.8) X10*3/uL RBC 4.36 (4.20-5.50) X10*6/uL Hgb 13.4 (12.0-16.0) g/dl Hct 40.5 (37.0-47.0) % MCV 92.9 (80.0-98.0) fL MCH 30.7 (27.0-33.0) pg MCHC 33.1 (31.0-35.0) g/dl RDW 13.0 (11.0-16.0) % Plt Count 267 (160-400) X10*3/uL MPV 9.4 (9.4-12.3) fL Immature Gran % (Auto) 0.2 (0.0-0.4) % Neut % (Auto) 60.1 (45-73) % Lymph % (Auto) 33.1 (20-40) % [place] % (Auto) 5.1 (2-11) % Eos % (Auto) 1.0 (0-4) % Baso % (Auto) 0.5 (0-2) % Lymph # (Auto) 3.2 (1.2-4.9) X10*3/uL [place] # (Auto) 0.5 (0.1-1.2) X10*3/uL Eos # (Auto) 0.1 (0.0-0.4) X10*3/uL Baso # (Auto) 0.1 (0.0-0.2) X10*3/uL Abs Immat Gran (auto) 0.02 (0.00-0.03) X10*3/uL Absolute Neuts (auto) 5.8 (2.0-8.3) x10*3/uL Absolute Nucleated RBC 0.000 (0.0-0.012) X10*3/uL Nucleated RBC % (auto) 0.0 (0.0-0.2) /100WBC ESR 14 (0-20) MM/HR Sodium 142 (135-145) mmol/L Potassium 4.1 (3.3-5.1) mmol/L Chloride 105 (96-108) mmol/L Carbon Dioxide 24 (22-29) mmol/L Anion Gap 17 (12-20) BUN 9 (9-16) mg/dL Creatinine 0.78 (0.5-1.4) mg/dL Estim Creat Clear Calc 131.8 Estimated GFR > 60 Random Glucose 101 (60-115) mg/dL Calcium 9.7 (8.4-10.2) mg/dL Magnesium 2.0 (1.6-2.6) mg/dL Total Bilirubin 0.2 (0.0-1.0) mg/dL AST 23 (5-31) U/L ALT 38 H (0-31) U/L Alkaline Phosphatase 59 (39-117) U/L C-Reactive Protein 0.26 (< or = 0.50) mg/dL Total Protein 7.2 (6.5-8.0) g/dL Albumin 4.3 (3.5-5.0) g/dL Independent Interpretation I performed an independent interpretation of an: CT Scan Radiology Impression Discussion of test interpretation with radiology: I have reviewed the radiologist's reading. External Record Review External record reviewed: Other (Prior to ED visit) Discharge Plan Discharge Clinical Impression: Paresthesia Patient Disposition: Home, Self-Care Instructions: Paresthesia (ED) Additional Instructions: Return to the ED immediately for headache, facial droop, slurred speech, paralysis of extremities, loss of vision, facial swelling, neck swelling, drooling, change in voice, or any other concerning symptoms. Please follow the primary care provider Prescriptions: No Action Myrbetriq 50 mg tablet extended release 24 hr 50 mg PO DAILY clozapine 100 mg tablet 200 mg PO BEDTIME lisinopril 40 mg tablet 40 mg PO DAILY clonazepam 1 mg tablet 1 mg PO BID metformin 1,000 mg tablet 1,000 mg PO BIDWM metoprolol succinate 50 mg tablet extended release 24 hr 50 mg PO DAILY Januvia 50 mg tablet 50 mg PO DAILY cetirizine 10 mg tablet 10 mg PO DAILY dicyclomine 20 mg tablet 20 mg PO QID PRN (Reason: abdominal pain) Qty: 20 0RF albuterol sulfate [Proventil HFA] 90 mcg/actuation HFA aerosol inhaler 2 puff inhalation Q4-6H PRN (Reason: shortness of breath or wheezing) Qty: 6.7 0RF azithromycin 250 mg tablet See Rx Instructions .ROUTE .COMPLEX Qty: 6 0RF Rx Instructions: For 250 mg dose pack: take 500 mg today (day 1), then 250 mg for 4 days (days 2-5) pantoprazole 40 mg tablet,delayed release (DR/EC) 40 mg PO BID@0630,1630 Interventions: ED Discharge Assessment Last Done: 06/03/23 23:43 Discharge Date/Time: 06/03/23 23:49 Print Language: Welsh
[2023-06-03 22:15] VITALS: BP 148/76; PULSE 81; RESP 16; TEMP 36.3; O2SAT 98
--- NOTE | 2023-06-03 23:42 | PC.NURSE ---
pt a&o, no sob or chest pain, pt neuro intact, pt able to speak in full sentence, no slurred speech, has a steady gait. Reviewed discharge instructions with pt. pt verbalized no sign of distress.
== END 2023-06-03 23:49 | disposition home or self-care (01) ==
PROVIDERS: Emergency Provider Internal Medicine; PCP Internal Medicine
DX: R20.2 Paresthesia of skin (principal); R51.9 Headache, unspecified; M54.2 Cervicalgia; R00.2 Palpitations; F17.210 Nicotine dependence, cigarettes, uncomplicated; Z71.6 Tobacco abuse counseling; Z79.899 Other long term (current) drug therapy
CPT/HCPCS: 36415; 70450; 80053; 83735; 85025; 85652; 86140; 93005; 99284

== ENCOUNTER 2023-06-14 11:17 | Outpatient (REF) | payer BC, MEDICARE, MEDICAID, SELFPAY ==
[2023-06-14 11:31] LABS: MANUAL DIFF FLAG NO
[2023-06-14 11:53] LABS: Basophils Percent Auto 0.4 % (0-2); Eosinophils Absolute Auto 0.1 X10*3/uL (0.0-0.4); Eosinophils Percent Auto 0.7 % (0-4); Hemoglobin 13.1 g/dl (12.0-16.0); Imm Gran Abs Auto 0.03 X10*3/uL (0.00-0.03); Imm Gran Pct Auto 0.3 % (0.0-0.4); Lymphocytes Absolute Auto 2.8 X10*3/uL (1.2-4.9); Lymphocytes Percent Auto 26.1 % (20-40); Mean Corpuscular HGB Conc 32.8 g/dl (31.0-35.0); Mean Corpuscular Hemoglobin 30.3 pg (27.0-33.0); Mean Corpuscular Volume 92.4 fL (80.0-98.0); Mean Platelet Volume 10.2 fL (9.4-12.3); Monocytes Absolute Auto 0.4 X10*3/uL (0.1-1.2); Monocytes Percent Auto 4.1 % (2-11); Neutrophils Absolute Auto 7.3 x10*3/uL (2.0-8.3); Neutrophils Percent Auto 68.4 % (45-73); Platelet Count 273 X10*3/uL (160-400); Red Blood Count 4.33 X10*6/uL (4.20-5.50); Red Cell Distribution Width 13.3 % (11.0-16.0); White Blood Count 10.7 X10*3/uL (4.8-10.8)
== END 2023-06-14 11:18 | disposition home or self-care (01) ==
LOC: HO.LABR 11:17
PROVIDERS: PCP Internal Medicine; Visit Provider Clinical Nurse Specialist Psychiatric/Mental Health, Child & Adolescent
DX: Z79.899 Other long term (current) drug therapy (principal)
CPT/HCPCS: 36415; 85025

== ENCOUNTER 2023-06-15 10:29 | Emergency (ER) | payer BC, MEDICARE, MEDICAID, SELFPAY ==
--- NOTE | 2023-06-15 10:32 | ED.CHESTPAIN ---
HPI - Chest Pain General Chief Complaint: Arrhythmia/Palpitations Stated Complaint: CP,DIZZY,NAUSEA PER EMS Time Seen by Provider: 06/15/23 10:32 Source: patient Mode of arrival: ambulatory Limitations: no limitations History of Present Illness HPI narrative: Patient 48 years old with history of diabetes hypertension lipidemia bipolar disorder comes in for dizziness started just prior to arrival patient does have a history of PACs had even monitor on 08/16 which was negative for AFib showed only PACs and PVCs rib when patient was feeling dizzy checked on her watch which says that she has AFib with heart rate of 100 patient does have history of tinnitus dizziness gets worse on movement of the head slight nausea no vomiting no headache Related Data Home Medications Medication Instructions Recorded Confirmed pantoprazole 40 mg tablet,delayed 40 mg PO BID@0630,1630 11/22/20 04/27/23 release clozapine 100 mg tablet 200 mg PO BEDTIME 11/13/21 04/27/23 lisinopril 40 mg tablet 40 mg PO DAILY 11/13/21 04/27/23 sitagliptin phosphate 50 mg tablet 50 mg PO DAILY 04/17/22 04/27/23 (Januvia) clonazepam 1 mg tablet 1 mg PO BID anxiety 07/03/22 04/27/23 metformin 1,000 mg tablet 1,000 mg PO BIDWM 07/03/22 04/27/23 metoprolol succinate 50 mg 50 mg PO DAILY 07/03/22 04/27/23 tablet,extended release 24 hr mirabegron 50 mg tablet,extended 50 mg PO DAILY 07/03/22 04/27/23 release 24 hr (Myrbetriq) cetirizine 10 mg tablet 10 mg PO DAILY 04/27/23 04/27/23 Previous Rx's Medication Instructions Recorded dicyclomine 20 mg tablet 20 mg PO QID PRN abdominal pain 03/16/23 #20 tabs albuterol sulfate 90 mcg/actuation 2 puff inhalation Q4-6H PRN 05/01/23 aerosol inhaler (Proventil HFA) shortness of breath or wheezing #6.7 grams azithromycin 250 mg tablet See Rx Instructions PO .COMPLEX #6 05/01/23 tabs meclizine 25 mg tablet 25 mg PO TID PRN dizziness #20 tabs 06/15/23 Allergies Allergy/AdvReac Type Severity Reaction Status Date / Time Penicillins [PENICILLINS] Allergy Severe ANAPHYLAXIS Verified 06/15/23 10:44 adhesive [ADHESIVE] Allergy Unknown RASH Verified 06/15/23 10:44 artichoke [ARTICHOKE] Allergy Unknown RASH Verified 06/15/23 10:44 carbamazepine [From TEGRETOL] Allergy Unknown MIGRAINES Verified 06/15/23 10:44 cariprazine [From VRAYLAR] Allergy Unknown LEG CRAMPS Verified 06/15/23 10:44 fentanyl [FENTANYL] Allergy Unknown RASH Verified 06/15/23 10:44 lamotrigine [From LAMICTAL] Allergy Unknown RASH Verified 06/15/23 10:44 lithium [LITHIUM] AdvReac Severe tremor and Verified 06/15/23 10:44 falls Review of Systems Review of Systems: Yes all other systems are reviewed and are negative [facility] Past Medical History Medical History Diabetes Thrombosed external hemorrhoid Morbid obesity with BMI of 45.0-49.9, adult Depression Anxiety Renal colic Migraines PCOS (polycystic ovarian syndrome) Pre-diabetes Hypertension High cholesterol GERD (gastroesophageal reflux disease) Obstructive sleep apnea Bipolar disease, chronic Surgical History History of cholecystectomy History of dilation and curettage Family History Family History Father Coronary artery disease Other Breast cancer Social History Social History Household Members: Spouse and Children Housing: Apartment Do you presently have visiting nurse or other home services: No Alcohol intake: never Patient Tobacco Use Status: Tobacco use Unknown Tobacco use type: Cigarette Cigarette Packs Per Day: 1 Cigarettes Per Day: 20.0 Years Smoked: 30 +/- Substance Use Type: Marijuana Advance Directives: No Advance Directives Information Provided: Yes service: No Current occupational status: employed Physical Exam Vital Signs: Vital Signs: Last Vital Signs Temp 98 F 06/15/23 10:44 Pulse 85 06/15/23 12:30 Resp 19 06/15/23 12:30 BP 135/82 06/15/23 12:30 Pulse Ox 94 06/15/23 12:30 O2 Del Method Room Air 06/15/23 12:30 BMI result Body Mass Index 52.0 Appearance: Alert. Oriented X3. No acute distress. Eyes: PERRLA, + Nystagmus increased vertigo on movement of the head to the left side ENT: Pharynx normal. Oral Mucosa moist Neck: Normal inspection. Neck supple. CVS: Normal heart rate and rhythm. Pulses normal. Respiratory: No respiratory distress. Equal air entry bilateral, no wheezing/rales/rhonchi Abdomen: Soft and nontender. Bowel sounds are present, no mass palpable, no CVA tenderness Skin: Skin warm and dry. Normal skin color. Normal skin turgor. Extremities: No lower extremity edema. No calf tenderness Neuro: Oriented X 3. No motor deficit. No sensory deficit.No cerebellar signs , cranial nerves II-XII intact Medications Administered Discontinued Medications Generic Name Dose Route Start Last Admin Trade Name Freq PRN Reason Stop Dose Admin Meclizine HCl 25 mg 06/15/23 11:39 06/15/23 12:39 Meclizine Hcl 25 Mg Tablet PO 06/15/23 11:40 25 mg ONCE ONE Administration Medical Decision Making Medical Decision Making [facility] Narrative: Patient clinically with peripheral benign positional vertigo improved after meclizine no cardiac arrhythmia noticed on conveyor monitor EKG with normal sinus rhythm patient had a workup in the past which was showing only PACs Differential Diagnosis Differential Diagnoses: The differential diagnosis associated with the presentation includes vertigo/cardiac arrhythmia Lab Data [facility] Lab Attestation statement: I reviewed the patient's lab results. 06/15/23 11:43 06/15/23 11:43 Labs: Lab Results 06/15/23 06/15/23 Range/Units 10:56 11:43 WBC 8.6 (4.8-10.8) X10*3/uL RBC 4.30 (4.20-5.50) X10*6/uL Hgb 13.1 (12.0-16.0) g/dl Hct 39.1 (37.0-47.0) % MCV 90.9 (80.0-98.0) fL MCH 30.5 (27.0-33.0) pg MCHC 33.5 (31.0-35.0) g/dl RDW 13.3 (11.0-16.0) % Plt Count 247 (160-400) X10*3/uL MPV 9.8 (9.4-12.3) fL Immature Gran % (Auto) 0.3 (0.0-0.4) % Neut % (Auto) 68.1 (45-73) % Lymph % (Auto) 26.2 (20-40) % [place] % (Auto) 4.2 (2-11) % Eos % (Auto) 0.9 (0-4) % Baso % (Auto) 0.3 (0-2) % Lymph # (Auto) 2.3 (1.2-4.9) X10*3/uL [place] # (Auto) 0.4 (0.1-1.2) X10*3/uL Eos # (Auto) 0.1 (0.0-0.4) X10*3/uL Baso # (Auto) 0.0 (0.0-0.2) X10*3/uL Abs Immat Gran (auto) 0.03 (0.00-0.03) X10*3/uL Absolute Neuts (auto) 5.9 (2.0-8.3) x10*3/uL Absolute Nucleated RBC 0.000 (0.0-0.012) X10*3/uL Nucleated RBC % (auto) 0.0 (0.0-0.2) /100WBC Sodium 140 (135-145) mmol/L Potassium 3.9 (3.3-5.1) mmol/L Chloride 106 (96-108) mmol/L Carbon Dioxide 23 (22-29) mmol/L Anion Gap 15 (12-20) BUN 8 L (9-16) mg/dL Creatinine 0.68 (0.5-1.4) mg/dL Estim Creat Clear Calc 150.1 Estimated GFR > 60 POC Glucose 122 H (60-115) mg/dL Random Glucose 107 (60-115) mg/dL Calcium 9.4 (8.4-10.2) mg/dL Troponin I High Sens < 2.7 (<3.5-17.0) ng/L Independent Interpretation I performed an independent interpretation of an: EKG Interpretation: Normal sinus rhythm heart rate 83 beats per minute normal interval normal axis no acute ST changes no acute ischemia Discharge Plan Discharge Clinical Impression: Benign paroxysmal positional vertigo Patient Disposition: Home, Self-Care Instructions: Benign Paroxysmal Positional Vertigo (ED) Additional Instructions: Take medication as prescribed Care and cautions as advised Prescriptions: New meclizine 25 mg tablet 25 mg PO TID PRN (Reason: dizziness) Qty: 20 0RF No Action Myrbetriq 50 mg tablet extended release 24 hr 50 mg PO DAILY clozapine 100 mg tablet 200 mg PO BEDTIME lisinopril 40 mg tablet 40 mg PO DAILY clonazepam 1 mg tablet 1 mg PO BID metformin 1,000 mg tablet 1,000 mg PO BIDWM metoprolol succinate 50 mg tablet extended release 24 hr 50 mg PO DAILY Januvia 50 mg tablet 50 mg PO DAILY cetirizine 10 mg tablet 10 mg PO DAILY dicyclomine 20 mg tablet 20 mg PO QID PRN (Reason: abdominal pain) Qty: 20 0RF albuterol sulfate [Proventil HFA] 90 mcg/actuation HFA aerosol inhaler 2 puff inhalation Q4-6H PRN (Reason: shortness of breath or wheezing) Qty: 6.7 0RF azithromycin 250 mg tablet See Rx Instructions .ROUTE .COMPLEX Qty: 6 0RF Rx Instructions: For 250 mg dose pack: take 500 mg today (day 1), then 250 mg for 4 days (days 2-5) pantoprazole 40 mg tablet,delayed release (DR/EC) 40 mg PO BID@0630,1630
[2023-06-15 10:36] VITALS: BP 159/93; PULSE 89; O2SAT 96
[2023-06-15 10:44] VITALS: BP 144/85; PULSE 87; RESP 18; TEMP 36.6; O2SAT 93; BMI 52.0
--- NOTE | 2023-06-15 10:50 | ECG_ITS ---
Test Reason : palpitations Blood Pressure : / mmHG Vent. Rate : 083 BPM Atrial Rate : 083 BPM P-R Int : 184 ms QRS Dur : 086 ms QT Int : 366 ms P-R-T Axes : 038 012 038 degrees QTc Int : 430 ms Normal sinus rhythm Normal ECG When compared with ECG of 03-JUN-2023 18:03, No significant change was found Referred By: Finn Yoo Electronically Signed By:SHANNON HERNANDEZ MD
[2023-06-15 11:00] LABS: Glucose, Whole Blood 122 mg/dL (60-115)
--- NOTE | 2023-06-15 11:00 | PC.NURSE ---
arrives in NSR w/o noted ectopy on telemetry monitoring. no hypotension. talking full sentences. c/o dizziness- no syncope. no chest pain- reports/below breast bone epigastric burning. nausea- no vomiting. afebrile.
[2023-06-15 11:18] VITALS: PULSE 87
--- NOTE | 2023-06-15 11:23 | PC.NURSE ---
pt reports dizziness when standing and sitting- pt using purewick for voiding as pt states she feels like she will pass out if goes to bathroom walking.
[2023-06-15 11:48] LABS: MANUAL DIFF FLAG NO
[2023-06-15 11:58] LABS: Basophils Percent Auto 0.3 % (0-2); Eosinophils Absolute Auto 0.1 X10*3/uL (0.0-0.4); Eosinophils Percent Auto 0.9 % (0-4); Hematocrit 39.1 % (37.0-47.0); Hemoglobin 13.1 g/dl (12.0-16.0); Imm Gran Abs Auto 0.03 X10*3/uL (0.00-0.03); Imm Gran Pct Auto 0.3 % (0.0-0.4); Lymphocytes Absolute Auto 2.3 X10*3/uL (1.2-4.9); Lymphocytes Percent Auto 26.2 % (20-40); Mean Corpuscular HGB Conc 33.5 g/dl (31.0-35.0); Mean Corpuscular Hemoglobin 30.5 pg (27.0-33.0); Mean Corpuscular Volume 90.9 fL (80.0-98.0); Mean Platelet Volume 9.8 fL (9.4-12.3); Monocytes Absolute Auto 0.4 X10*3/uL (0.1-1.2); Monocytes Percent Auto 4.2 % (2-11); Neutrophils Absolute Auto 5.9 x10*3/uL (2.0-8.3); Neutrophils Percent Auto 68.1 % (45-73); Platelet Count 247 X10*3/uL (160-400); Red Cell Distribution Width 13.3 % (11.0-16.0); White Blood Count 8.6 X10*3/uL (4.8-10.8)
[2023-06-15 12:10] LABS: Anion Gap 15 (12-20); Blood Urea Nitrogen 8 mg/dL (9-16); Calcium 9.4 mg/dL (8.4-10.2); Carbon Dioxide 23 mmol/L (22-29); Chloride 106 mmol/L (96-108); Creatinine Clr Calc Pharmacy 150.1; Estimated Glomerular Filt Rate > 60; Glucose Random 107 mg/dL (60-115); Potassium 3.9 mmol/L (3.3-5.1); Sodium 140 mmol/L (135-145)
[2023-06-15 12:20] LABS: Troponin-I High Sensitivity < 2.7 ng/L (<3.5-17.0)
[2023-06-15 12:30] VITALS: BP 135/82; PULSE 85; RESP 19; O2SAT 94
[2023-06-15] MEDS: Meclizine HCl 25 MG TABLET PO (12:39)
--- NOTE | 2023-06-15 12:41 | PC.NURSE ---
pt oob to bathroom w/o issue. aox4. calm, coop
[2023-06-15 14:06] VITALS: BP 132/78; PULSE 85; RESP 14; TEMP 36.7; O2SAT 96
== END 2023-06-15 14:13 | disposition home or self-care (01) ==
PROVIDERS: Emergency Provider Internal Medicine; PCP Internal Medicine
DX: H81.10 Benign paroxysmal vertigo, unspecified ear (principal); E11.9 Type 2 diabetes mellitus without complications; E78.5 Hyperlipidemia, unspecified; I10 Essential (primary) hypertension; K21.9 Gastro-esophageal reflux disease without esophagitis; E66.01 Morbid (severe) obesity due to excess calories; Z68.43 Body mass index [BMI] 50.0-59.9, adult; F17.210 Nicotine dependence, cigarettes, uncomplicated; Z79.84 Long term (current) use of oral hypoglycemic drugs; Z79.899 Other long term (current) drug therapy
CPT/HCPCS: 36415; 80048; 82947; 84484; 85025; 93005; 99283; 99285

== ENCOUNTER 2023-06-18 09:04 | Outpatient (AMB) | payer BC, MEDICARE, MEDICAID, SELFPAY ==
--- NOTE | 2023-06-18 10:13 | AM.OFFVISNUR ---
Intake Intake Visit Reasons: EKG Intake Note: Pt states she recvd alert on her [employer] Smart Watch that she was in Afib. EKG scheduled for today. 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 Accompanied by: Self / Same As Patient Allergies Penicillins [PENICILLINS] Allergy (Severe, Verified 06/15/23 10:44) ANAPHYLAXIS adhesive [ADHESIVE] Allergy (Unknown, Verified 06/15/23 10:44) RASH artichoke [ARTICHOKE] Allergy (Unknown, Verified 06/15/23 10:44) RASH carbamazepine [From TEGRETOL] Allergy (Unknown, Verified 06/15/23 10:44) MIGRAINES cariprazine [From VRAYLAR] Allergy (Unknown, Verified 06/15/23 10:44) LEG CRAMPS fentanyl [FENTANYL] Allergy (Unknown, Verified 06/15/23 10:44) RASH lamotrigine [From LAMICTAL] Allergy (Unknown, Verified 06/15/23 10:44) RASH lithium [LITHIUM] Adverse Reaction (Severe, Verified 06/15/23 10:44) tremor and falls Followed by:: Dr. Jay Nursing Note I spoke w pt on phone last evening. She was in ED this weekend d/t feeling woozy and her smart watch said she was in afib, same when she tried her husbands smart watch. PCP advised ED. In ED here at [facility] [place] EKG did not show afib. Monitored on telepak for an hour or two and no afib noted. She continues to get periodic alerts and feels woozy and weird at times. She would like to come in to the office tomorrow to show us her watch readings. Scheduled for RN visit to look at alerts and get EKG @ 930am. In the meantime, she was strongly encouraged to go to ED if sxs persist, worsen. She verbalizes understanding and agrees to plan. Today's EKG shows NSR @ [address] Saleem's desk for review and signature. Alerts in phone do not represent Afib - shows NSR. Office Procedures EKG 23548-[id number], Complete Coding Level of Care Code Est Pt Level 1 (27080) CPT Codes EKG - CPT: 76406-Rmmyvytzqlineypio, Complete ([id number]) Time Spent (min) 15 Comment EKG, Medication Reconciliation, Documentation, Education
== END 2023-06-18 10:12 | disposition home or self-care (01) ==
PROVIDERS: PCP Internal Medicine; Visit Provider Internal Medicine
DX: R00.2 Palpitations (principal)
CPT/HCPCS: 93010

== ENCOUNTER → 2023-06-18 09:04 | Outpatient (BNVA) | payer BC, MEDICARE, MEDICAID, SELFPAY | PROVIDERS: PCP Internal Medicine; Visit Provider Internal Medicine | DX: Z13.6 Encounter for screening for cardiovascular disorders (principal) | CPT/HCPCS: 93005 ==

== ENCOUNTER 2023-06-18 12:55 | Outpatient (REF) | payer BC, MEDICARE, MEDICAID, SELFPAY | END 2023-06-18 12:56 | disposition home or self-care (01) | LOC: HO.CHCLNP 12:55 | PROVIDERS: Visit Provider Internal Medicine | DX: L73.9 Follicular disorder, unspecified (principal) | CPT/HCPCS: 87070; 87205 ==

== ENCOUNTER 2023-06-21 10:32 | Outpatient (AMB) | payer BC, MEDICARE, MEDICAID, SELFPAY ==
[2023-06-21 10:51] VITALS: BP 122/92; PULSE 86; O2SAT 96; BMI 50.6
--- NOTE | 2023-06-21 10:51 | A.OFFVIS_ITS ---
Intake Vital Signs 06/21/23 10:51 Height 5 ft 7 in Weight 322 lb 15.635 oz BMI 50.6 BP 122/92 H Blood Pressure Location Rt brachial Position Sitting Pulse 86 Pulse Source Doppler Pulse Oximetry (%) 96 Oxygen Delivery Method Room Air Intake Visit Reasons: Shortness of breath Allergies Penicillins [PENICILLINS] Allergy (Severe, Verified 06/21/23 10:53) ANAPHYLAXIS adhesive [ADHESIVE] Allergy (Unknown, Verified 06/21/23 10:53) RASH artichoke [ARTICHOKE] Allergy (Unknown, Verified 06/21/23 10:53) RASH carbamazepine [From TEGRETOL] Allergy (Unknown, Verified 06/21/23 10:53) MIGRAINES cariprazine [From VRAYLAR] Allergy (Unknown, Verified 06/21/23 10:53) LEG CRAMPS fentanyl [FENTANYL] Allergy (Unknown, Verified 06/21/23 10:53) RASH lamotrigine [From LAMICTAL] Allergy (Unknown, Verified 06/21/23 10:53) RASH lithium [LITHIUM] Adverse Reaction (Severe, Verified 06/21/23 10:53) tremor and falls HPI Shortness of breath HPI Details 48-year-old lady, active 20+ pack-year s moker, with underlying obesity, previously followed by sweeping compound blender for ?asthma, also with JILLIAN now on CPAP referred for evaluation dyspnea on exertion. Patient states that her symptoms started approximately 1 months prior after upper respiratory infection and have not abated. She denies productive cough. Patient complains of multiple environmental allergies. She denies recent pulmonary function testing. She denies exposure to industrial dusts. Patient does have family history of pulmonary fibrosis in 6/8 of her maternal siblings. [facility] Medical History Diabetes Thrombosed external hemorrhoid Morbid obesity with BMI of 45.0-49.9, adult Depression Anxiety Renal colic Migraines PCOS (polycystic ovarian syndrome) Pre-diabetes Hypertension High cholesterol GERD (gastroesophageal reflux disease) Obstructive sleep apnea Bipolar disease, chronic Surgical History History of cholecystectomy History of dilation and curettage Family History Father Coronary artery disease Other Breast cancer Social History (Updated 06/21/23 @ 10:55 by Josselyn Staley [facility]) Household Members: Spouse and Children Housing: Apartment Do you presently have visiting nurse or other home services: No Alcohol intake: never Patient Tobacco Use Status: Current everyday Tobacco user Tobacco use type: Cigarette Cigarette Packs Per Day: 1 Cigarettes Per Day: 20.0 Years Smoked: 30 +/- Substance Use Type: Marijuana service: No Current occupational status: employed Review of Systems Const Denies daytime sleepiness, Denies excessive sweating, Denies fatigue, Denies fever(s), Denies lethargy, Denies malaise, Denies night sweats, Denies snoring and Denies weight loss Eyes Denies blurry vision and Denies itchy eyes ENT Denies nasal congestion, Denies post nasal drip, Denies sinus pain, Denies sinus pressure and Denies other ( Thrush) Card Denies chest pain, Denies pedal edema, Denies dyspnea, Reports dyspnea on exertion, Denies orthopnea and Denies paroxysmal nocturnal dyspnea Resp Denies cough, Denies hemoptysis, Denies excessive phlegm production, Denies dyspnea, Reports dyspnea on exertion, Denies snoring and Denies wheezing GI Denies abdominal pain and Denies heartburn Musc Denies myalgias, Denies arthralgias and Denies joint swelling Skin/Breast Denies rash Neuro Denies memory loss and Denies seizure-like activity Psych Denies abnormal sleep pattern, Denies anxiety and Denies memory loss Endo Denies excessive sweating, Denies fatigue and Denies heat intolerance Cisco/Lymph Denies easy bruising Aller/Immun Denies itchy eyes, Denies seasonal rhinorrhea and Denies wheezing Physical Exam Vital Signs: Last Vital Signs Pulse 86 06/21/23 10:51 BP 122/92 H 06/21/23 10:51 Pulse Ox 96 06/21/23 10:51 Oxygen Delivery Method Room Air 06/21/23 10:51 BMI result Body Mass Index 50.6 Const General: no acute distress and alert Nutritional Appearance: obese Orientation/consciousness: Other orientation findings ( oriented) HEENT Head: Yes atraumatic Eyes General: appearance normal, both eyes and all related structures Sclerae: sclerae normal EOM: EOMs intact bilaterally Neck Neck: Yes supple Lymphatic: no lymphadenopathy noted Resp Effort & Inspection: normal respiratory effort and no use of accessory muscles Auscultation: clear to auscultation bilaterally Cardio Rate: regular rate Rhythm: regular rhythm Heart sounds: no gallops, no murmurs and no rubs Skin General skin exam: other ( warm) Extrem General: No clubbing, No cyanosis and No edema Assessment & Plan Assessment & Plan (1) Dyspnea on exertion: Code(s): R06.09 - Other forms of dyspnea Plan: Unclear etiology, may have pulmonary, cardiac, and/or obesity component. Will obtain full PFT. Will switch Flovent to Breo. (2) Environmental allergies: Code(s): Z91.09 - Other allergy status, other than to drugs and biological substances Plan: Will obtain RAST and CBC with differential for further evaluation. Orders: Orders PFT pulmonary function test Today R06.09 - Other forms of dyspnea Complete Blood Count Auto Diff Today Z91.09 - Other allergy status, other than to drugs and biological substances Rast Allergen Today Z91.09 - Other allergy status, other than to drugs and biological substances Medications: New Breo Ellipta 200-25 mcg/dose (fluticasone furoate-vilanterol) 1 inh inhalation DAILY 1 ea 6RF 30 days NS R06.09 - Other forms of dyspnea Coding Level of Care Code New Pt Level 4 (83040) Diagnoses Dyspnea on exertion R06.09 Environmental allergies Z91.09
== END 2023-06-21 11:22 | disposition home or self-care (01) ==
PROVIDERS: PCP Internal Medicine; Referring Provider Internal Medicine; Visit Provider Internal Medicine Pulmonary Disease
DX: R06.09 Other forms of dyspnea (principal); Z91.09 Other allergy status, other than to drugs and biological substances
CPT/HCPCS: 99204

== ENCOUNTER → 2023-06-21 10:32 | Outpatient (BNVA) | payer BC, MEDICARE, MEDICAID, SELFPAY | PROVIDERS: PCP Internal Medicine; Referring Provider Internal Medicine; Visit Provider Internal Medicine Pulmonary Disease ==

== ENCOUNTER 2023-07-12 10:50 | Outpatient (REF) | payer BC, MEDICARE, MEDICAID, SELFPAY ==
[2023-07-12 11:06] LABS: MANUAL DIFF FLAG NO
[2023-07-12 11:54] LABS: Basophils Percent Auto 0.2 % (0-2); Eosinophils Absolute Auto 0.1 X10*3/uL (0.0-0.4); Eosinophils Percent Auto 0.7 % (0-4); Hematocrit 38.3 % (37.0-47.0); Hemoglobin 12.7 g/dl (12.0-16.0); Imm Gran Abs Auto 0.03 X10*3/uL (0.00-0.03); Imm Gran Pct Auto 0.4 % (0.0-0.4); Lymphocytes Absolute Auto 2.4 X10*3/uL (1.2-4.9); Lymphocytes Percent Auto 28.6 % (20-40); Mean Corpuscular HGB Conc 33.2 g/dl (31.0-35.0); Mean Corpuscular Volume 90.5 fL (80.0-98.0); Mean Platelet Volume 10.2 fL (9.4-12.3); Monocytes Absolute Auto 0.4 X10*3/uL (0.1-1.2); Monocytes Percent Auto 4.4 % (2-11); Neutrophils Absolute Auto 5.5 x10*3/uL (2.0-8.3); Neutrophils Percent Auto 65.7 % (45-73); Platelet Count 262 X10*3/uL (160-400); Red Blood Count 4.23 X10*6/uL (4.20-5.50); Red Cell Distribution Width 13.6 % (11.0-16.0); White Blood Count 8.4 X10*3/uL (4.8-10.8)
[2023-07-12 11:56] LABS: Neutrophils Absolute Auto 5.5 x10*3/uL (2.0-8.3); White Blood Count 8.4 X10*3/uL (4.8-10.8)
== END 2023-07-12 10:51 | disposition home or self-care (01) ==
LOC: HO.LAB 10:50
PROVIDERS: Absent Provider Internal Medicine Pulmonary Disease; PCP Internal Medicine; Visit Provider Clinical Nurse Specialist Psychiatric/Mental Health, Child & Adolescent
DX: Z91.09 Other allergy status, other than to drugs and biological substances (principal); Z51.81 Encounter for therapeutic drug level monitoring; Z79.899 Other long term (current) drug therapy
CPT/HCPCS: 36415; 82785; 85025; 85048; 86003

== ENCOUNTER 2023-07-29 10:00 | Outpatient (REF) | payer BC, MEDICARE, MEDICAID, SELFPAY ==
--- NOTE | 2023-07-29 10:54 | PFT_ITS ---
Indication: Dyspnea Spirometry [FEV1 to FVC 82%; FEV1 2.72 L which is 101% predicted; FVC 3.28 L which is 100% predicted. No significant response to bronchodilators noted. Maximum voluntary ventilation 105% predicted.] Lung Volumes [Total lung capacity 78% predicted with an expiratory reserve volume of 38% predicted. The patient has a elevated BMI] Diffusion Capacity [DLCO 100% predicted] Comparisons [None] Interpretation [No obstructive ventilatory defects identified. No significant response to bronchodilators noted. The patient does have a restrictive ventilatory defect consistent mild restrictive lung disease. Likely due to elevated BMI with a significant decrease in the expiratory reserve volume. Doubt of any interstitial lung disease. Diffusing capacity is also within normal limits. Clinical correlation warranted.] MTDD
== END 2023-07-29 10:01 | disposition home or self-care (01) ==
LOC: HO.RESP 10:00
PROVIDERS: PCP Internal Medicine; Visit Provider Internal Medicine Pulmonary Disease
DX: R06.09 Other forms of dyspnea (principal)
CPT/HCPCS: 94010; 94727; 94729

== ENCOUNTER 2023-08-09 10:48 | Outpatient (REF) | payer BC, MEDICARE, SELFPAY ==
[2023-08-09 10:58] LABS: MANUAL DIFF FLAG NO
[2023-08-09 11:31] LABS: Basophils Percent Auto 0.3 % (0-2); Eosinophils Absolute Auto 0.1 X10*3/uL (0.0-0.4); Eosinophils Percent Auto 0.7 % (0-4); Hematocrit 40.4 % (37.0-47.0); Hemoglobin 13.3 g/dl (12.0-16.0); Imm Gran Abs Auto 0.03 X10*3/uL (0.00-0.03); Imm Gran Pct Auto 0.3 % (0.0-0.4); Lymphocytes Absolute Auto 2.7 X10*3/uL (1.2-4.9); Lymphocytes Percent Auto 28.2 % (20-40); Mean Corpuscular HGB Conc 32.9 g/dl (31.0-35.0); Mean Corpuscular Hemoglobin 30.2 pg (27.0-33.0); Mean Corpuscular Volume 91.8 fL (80.0-98.0); Mean Platelet Volume 10.1 fL (9.4-12.3); Monocytes Absolute Auto 0.5 X10*3/uL (0.1-1.2); Monocytes Percent Auto 5.2 % (2-11); Neutrophils Absolute Auto 6.3 x10*3/uL (2.0-8.3); Neutrophils Percent Auto 65.3 % (45-73); Platelet Count 268 X10*3/uL (160-400); Red Cell Distribution Width 13.5 % (11.0-16.0); White Blood Count 9.6 X10*3/uL (4.8-10.8)
== END 2023-08-09 10:49 | disposition home or self-care (01) ==
LOC: HO.LABR 10:48
PROVIDERS: PCP Internal Medicine; Visit Provider Clinical Nurse Specialist Psychiatric/Mental Health, Child & Adolescent
DX: Z79.899 Other long term (current) drug therapy (principal)
CPT/HCPCS: 36415; 85025

== ENCOUNTER 2023-08-13 09:27 | Outpatient (AMB) | payer BC, MEDICARE, MEDICAID, SELFPAY ==
[2023-08-13 09:30] VITALS: BP 138/77; PULSE 103; O2SAT 95; BMI 50.2
--- NOTE | 2023-08-13 09:30 | MHC.OFFVIS ---
Intake Vital Signs 08/13/23 09:30 Height 5 ft 7 in Weight 320 lb 12.361 oz BMI 50.2 BP 138/77 Blood Pressure Location Rt brachial Position Sitting Pulse 103 H Pulse Source Doppler Pulse Oximetry (%) 95 Oxygen Delivery Method Room Air Intake Visit Reasons: Shortness of breath/PFT Follow Up Allergies Penicillins [PENICILLINS] Allergy (Severe, Verified 08/13/23 09:32) ANAPHYLAXIS adhesive [ADHESIVE] Allergy (Unknown, Verified 08/13/23 09:32) RASH artichoke [ARTICHOKE] Allergy (Unknown, Verified 08/13/23 09:32) RASH carbamazepine [From TEGRETOL] Allergy (Unknown, Verified 08/13/23 09:32) MIGRAINES cariprazine [From VRAYLAR] Allergy (Unknown, Verified 08/13/23 09:32) LEG CRAMPS fentanyl [FENTANYL] Allergy (Unknown, Verified 08/13/23 09:32) RASH lamotrigine [From LAMICTAL] Allergy (Unknown, Verified 08/13/23 09:32) RASH lithium [LITHIUM] Adverse Reaction (Severe, Verified 08/13/23 09:32) tremor and falls HPI Shortness of breath/PFT Follow Up HPI Details 48-year-old lady, active 20+ pack-year smoker, with underlying obesity, 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 Patient states that her symptoms started approximately 1 months prior after upper respiratory infection and have not abated. She denies productive cough. Patient complains of multiple environmental allergies. She denies recent pulmonary function testing. She denies exposure to industrial dusts. Patient does have family history of pulmonary fibrosis in 6/8 of her maternal siblings. After the last office visit patient was tried on Breo with no significant changes in her symptoms. She has completed her pulmonary function test that showed mild restrictive physiology. She also has completed her immunologic testing. She denies any recent exacerbations. [facility] Medical History Diabetes Thrombosed external hemorrhoid Morbid obesity with BMI of 45.0-49.9, adult Depression Anxiety Renal colic Migraines PCOS (polycystic ovarian syndrome) Pre-diabetes Hypertension High cholesterol GERD (gastroesophageal reflux disease) Obstructive sleep apnea Bipolar disease, chronic Surgical History History of cholecystectomy History of dilation and curettage Family History Father Coronary artery disease Other Breast cancer Social History Household Members: Spouse and Children Housing: Apartment Do you presently have visiting nurse or other home services: No Alcohol intake: never Patient Tobacco Use Status: Current everyday Tobacco user Tobacco use type: Cigarette Cigarette Packs Per Day: 1 Cigarettes Per Day: 20.0 Years Smoked: 30 +/- Substance Use Type: Marijuana service: No Current occupational status: employed Review of Systems Const Denies daytime sleepiness, Denies excessive sweating, Denies fatigue, Denies fever(s), Denies lethargy, Denies malaise, Denies night sweats, Denies snoring and Denies weight loss Eyes Denies blurry vision and Denies itchy eyes ENT Denies nasal congestion, Denies post nasal drip, Denies sinus pain, Denies sinus pressure and Denies other ( Thrush) Card Denies chest pain, Denies pedal edema, Denies dyspnea, Denies orthopnea and Denies paroxysmal nocturnal dyspnea Resp Denies cough, Denies hemoptysis, Denies excessive phlegm production, Denies dyspnea, Denies snoring and Denies wheezing GI Denies abdominal pain and Denies heartburn Musc Denies myalgias, Denies arthralgias and Denies joint swelling Skin/Breast Denies rash Neuro Denies memory loss and Denies seizure-like activity Psych Denies abnormal sleep pattern, Denies anxiety and Denies memory loss Endo Denies excessive sweating, Denies fatigue and Denies heat intolerance Cisco/Lymph Denies easy bruising Aller/Immun Denies itchy eyes, Denies seasonal rhinorrhea and Denies wheezing Physical Exam Vital Signs: Last Vital Signs Pulse 103 H 08/13/23 09:30 BP 138/77 08/13/23 09:30 Pulse Ox 95 08/13/23 09:30 Oxygen Delivery Method Room Air 08/13/23 09:30 BMI result Body Mass Index 50.2 Const General: no acute distress and alert Nutritional Appearance: obese Orientation/consciousness: Other orientation findings ( oriented) HEENT Head: Yes atraumatic Eyes General: appearance normal, both eyes and all related structures Sclerae: sclerae normal EOM: EOMs intact bilaterally Neck Neck: Yes supple Lymphatic: no lymphadenopathy noted Resp Effort & Inspection: normal respiratory effort and no use of accessory muscles Auscultation: clear to auscultation bilaterally Cardio Rate: regular rate Rhythm: regular rhythm Heart sounds: no gallops, no murmurs and no rubs Skin General skin exam: other ( warm) Extrem General: No clubbing, No cyanosis and No edema Assessment & Plan Assessment & Plan (1) Dyspnea on exertion: Code(s): R06.09 - Other forms of dyspnea Plan: Results of pulmonary function test reviewed - patient does have underlying mild restrictive physiology, likely secondary to body habitus. No evidence of diffusion impairment. No improvement on Breo. Continue albuterol MDI as needed. (2) Environmental allergies: Code(s): Z91.09 - Other allergy status, other than to drugs and biological substances Plan: Results of RAST panel and CBC with differential reviewed. Underlying mild allergies to dust mites and cockroaches. Continue on as needed [id number] H2 blockers. Medications: Discontinued Breo Ellipta 200-25 mcg/dose (fluticasone furoate-vilanterol) Discontinued Reason: Doctor's Order 1 inh inhalation DAILY 1 ea 6RF 30 days NS R06.09 - Other forms of dyspnea Coding Level of Care Code Est Pt Level 4 (39393) Diagnoses Dyspnea on exertion R06.09 Environmental allergies Z91.09
== END 2023-08-13 09:52 | disposition home or self-care (01) ==
PROVIDERS: PCP Internal Medicine; Visit Provider Internal Medicine Pulmonary Disease
DX: R06.09 Other forms of dyspnea (principal); Z91.09 Other allergy status, other than to drugs and biological substances
CPT/HCPCS: 99214

== ENCOUNTER → 2023-08-13 09:27 | Outpatient (BNVA) | payer BC, MEDICARE, MEDICAID, SELFPAY | PROVIDERS: PCP Internal Medicine; Visit Provider Internal Medicine Pulmonary Disease ==

== ENCOUNTER 2023-09-05 16:53 | Emergency (ER) | payer BC, MEDICARE, MEDICAID, SELFPAY ==
[2023-09-05 17:00] VITALS: BP 128/85; PULSE 105; RESP 20; TEMP 36; O2SAT 97; BMI 49.6
--- NOTE | 2023-09-05 17:00 | ED.ABDPAIN ---
HPI - Abdominal Pain General Chief Complaint: Abdominal Pain Stated Complaint: back +abd pain ,neck pain Time Seen by Provider: 09/05/23 21:33 Source: patient Mode of arrival: ambulatory Limitations: no limitations History of Present Illness HPI narrative: Patient comes to the emergency room complaining of left upper abdominal cramping intermittently, radiating towards the left flank, 2 episodes of vomiting, 6 episodes of diarrhea. Patient denies any fever chills, no chest pain, no hematuria or dysuria. Patient states that overall she does not feel well. Related Data Home Medications Medication Instructions Recorded Confirmed pantoprazole 40 mg tablet,delayed 40 mg PO BID@0630,1630 11/22/20 04/27/23 release clozapine 100 mg tablet 200 mg PO BEDTIME 11/13/21 04/27/23 lisinopril 40 mg tablet 40 mg PO DAILY 11/13/21 04/27/23 sitagliptin phosphate 50 mg tablet 50 mg PO DAILY 04/17/22 04/27/23 (Januvia) clonazepam 1 mg tablet 1 mg PO BID anxiety 07/03/22 04/27/23 metformin 1,000 mg tablet 1,000 mg PO BIDWM 07/03/22 04/27/23 metoprolol succinate 50 mg 50 mg PO DAILY 07/03/22 04/27/23 tablet,extended release 24 hr mirabegron 50 mg tablet,extended 50 mg PO DAILY 07/03/22 04/27/23 release 24 hr (Myrbetriq) cetirizine 10 mg tablet 10 mg PO DAILY 04/27/23 04/27/23 Previous Rx's Medication Instructions Recorded albuterol sulfate 90 mcg/actuation 2 puff inhalation Q4-6H PRN 05/01/23 aerosol inhaler (Proventil HFA) shortness of breath or wheezing #6.7 grams hyoscyamine sulfate 0.125 mg tablet 0.125 mg PO QID PRN dyspepsia #10 09/05/23 tabs loperamide 2 mg capsule 2 mg PO Q6H PRN loose stool #20 09/05/23 caps ondansetron HCl 4 mg tablet 4 mg PO Q8H PRN nausea and 09/05/23 vomiting #14 tabs Allergies Allergy/AdvReac Type Severity Reaction Status Date / Time Penicillins [PENICILLINS] Allergy Severe ANAPHYLAXIS Verified 09/05/23 17:03 adhesive [ADHESIVE] Allergy Unknown RASH Verified 09/05/23 17:03 artichoke [ARTICHOKE] Allergy Unknown RASH Verified 09/05/23 17:03 carbamazepine [From TEGRETOL] Allergy Unknown MIGRAINES Verified 09/05/23 17:03 cariprazine [From VRAYLAR] Allergy Unknown LEG CRAMPS Verified 09/05/23 17:03 fentanyl [FENTANYL] Allergy Unknown RASH Verified 09/05/23 17:03 lamotrigine [From LAMICTAL] Allergy Unknown RASH Verified 09/05/23 17:03 lithium [LITHIUM] AdvReac Severe tremor and Verified 09/05/23 17:03 falls Review of Systems Review of Systems Constitutional : No Weight loss, No Fever, No Chills, No Night Sweats, No Fatigue, No Malaise ENT/Mouth : No Hearing loss, No Ear Pain, No Nasal Congestion, No Sinus Pain, No Hoarseness, No sore throat, No Rhinorrhea, No Swallowing Difficulty Eyes: No Eye Pain, No Swelling, No Redness, No Foreign Body, No Discharge, No Vision Changes Cardiovascular : No Chest Pain, No SOB, No Dyspnea on Exertion, No Orthopnea, No Edema, No Palpitations Respiratory : No Cough, No Sputum, No Wheezing, No Smoke Exposure, No Dyspnea Gastrointestinal : Complaining of nausea vomiting, diarrhea, abdominal cramping worse in the left upper quadrant. Genitourinary : no irregular bleeding, No Dysuria, No Urinary Frequency, No Hematuria, No Urinary Incontinence, No Urgency, No Flank Pain, No Urinary Flow Changes, No Hesitancy Musculoskeletal : No joint pain, No Myalgias, No Joint Swelling Skin : No Skin Lesions, No rash Neuro : No Weakness, No Numbness, No Paresthesias, No Loss of Consciousness, No Dizziness, No Headache Psych : No Anxiety/Panic, No Depression, No SI/HI/AH/VH, No Social Issues, Heme/Lymph: No Bruising, No Bleeding,No Lymphadenopathy Endocrine : No Polyuria, No Polydipsia, No Temperature Intolerance PMFSH Past Medical History Onset Date is defined in the Problem List Problems that require an onset date and time if occurred within 24 hrs of arrival to the ED Aortic Dissection and Rupture; Neurologic impairment; Cardiopulmonary Arrest; Endotracheal Intubation; Insertion or Replacement of Mechanical Circulatory Assist Device Medical History Diabetes Thrombosed external hemorrhoid Morbid obesity with BMI of 45.0-49.9, adult Depression Anxiety Renal colic Migraines PCOS (polycystic ovarian syndrome) Pre-diabetes Hypertension High cholesterol GERD (gastroesophageal reflux disease) Obstructive sleep apnea Bipolar disease, chronic Surgical History History of cholecystectomy History of dilation and curettage Family History Family History Father Coronary artery disease Other Breast cancer Social History Social History Household Members: Spouse and Children Housing: Apartment Do you presently have visiting nurse or other home services: No Alcohol intake: never Patient Tobacco Use Status: Current everyday Tobacco user Tobacco use type: Cigarette Cigarette Packs Per Day: 1 Cigarettes Per Day: 20.0 Years Smoked: 30 +/- Substance Use Type: Marijuana Advance Directives: No Advance Directives Information Provided: No service: No Current occupational status: employed Physical Exam ED Vital Signs: Vital Signs - 24 hr 09/05/23 17:00 09/05/23 21:18 Temperature 96.8 F 97.5 F Pulse Rate 105 H 96 Respiratory Rate 20 18 Blood Pressure 128/85 133/78 Pulse Oximetry 97 95 Oxygen Delivery Method Room Air Nasal Cannula BMI result Body Mass Index 49.6 Const Other: Appearance: Alert. Oriented X3. No acute distress. Eyes: Pupils equal, round and reactive to light. ENT: Pharynx normal. Neck: Normal inspection. Neck supple. No lymph nodes noted. No crepitus CVS: Normal heart rate and rhythm. Pulses normal. Normal S1 and S2 Respiratory: No respiratory distress. Breath sounds normal. No Wheezing. No rales Abdomen: Soft and nontender. No rigidity. No distention. No CVA tenderness Skin: Skin warm and dry. Normal skin color. Normal skin turgor. Extremities: No lower extremity edema. No Lacerations. No Rash Neuro: Oriented X 3. No motor deficit. No sensory deficit. Moving all extremities. No slurred speech. CN 2 through 12 grossly intact Psych: calm, cooperative, normal affect Course Course Course Narrative: Left flank pain radiating into left abdomen with associated n/v/d. Describes stool as dark. States that she moved her bowels 6 x and 2 episodes of emesis. Denies nausea at this time Medical Decision Making Medical Decision Making [facility] Narrative: My interpretation of labs: White blood cell count 13.0 likely reactive leukocytosis. Chemistry unremarkable, LFTs negative, troponin negative, urinalysis negative -patient's physical exam was fairly normal. Patient stated she had very mild abdominal discomfort in the left upper quadrant, cramping in sensation but she has been having this since the diarrhea started. -my interpretation of EKG: Sinus tachycardia, heart rate 103, no ST segment depression or elevation, no T-wave inversion, QTC 437 Differential Diagnosis Differential Diagnoses: The differential diagnosis associated with the presentation includes (Gastroenteritis, viral syndrome UTI, pyelonephritis, anxiety) Lab Data [facility] Lab Attestation statement: I reviewed the patient's lab results. 09/05/23 17:11 09/05/23 17:11 Labs: Lab Results 09/05/23 09/05/23 Range/Units 17:11 17:14 WBC 13.0 H (4.8-10.8) X10*3/uL RBC 4.42 (4.20-5.50) X10*6/uL Hgb 13.3 (12.0-16.0) g/dl Hct 40.2 (37.0-47.0) % MCV 91.0 (80.0-98.0) fL MCH 30.1 (27.0-33.0) pg MCHC 33.1 (31.0-35.0) g/dl RDW 13.5 (11.0-16.0) % Plt Count 267 (160-400) X10*3/uL MPV 9.2 L (9.4-12.3) fL Immature Gran % (Auto) 0.4 (0.0-0.4) % Neut % (Auto) 63.9 (45-73) % Lymph % (Auto) 31.0 (20-40) % [place] % (Auto) 3.9 (2-11) % Eos % (Auto) 0.5 (0-4) % Baso % (Auto) 0.3 (0-2) % Lymph # (Auto) 4.0 (1.2-4.9) X10*3/uL [place] # (Auto) 0.5 (0.1-1.2) X10*3/uL Eos # (Auto) 0.1 (0.0-0.4) X10*3/uL Baso # (Auto) 0.0 (0.0-0.2) X10*3/uL Abs Immat Gran (auto) 0.05 H (0.00-0.03) X10*3/uL Absolute Neuts (auto) 8.3 (2.0-8.3) x10*3/uL Absolute Nucleated RBC 0.000 (0.0-0.012) X10*3/uL Nucleated RBC % (auto) 0.0 (0.0-0.2) /100WBC Sodium 137 (135-145) mmol/L Potassium 3.9 (3.3-5.1) mmol/L Chloride 106 (96-108) mmol/L Carbon Dioxide 21 L (22-29) mmol/L Anion Gap 14 (12-20) BUN 12 (9-16) mg/dL Creatinine 0.71 (0.5-1.4) mg/dL Estim Creat Clear Calc 144.4 Estimated GFR > 60 Random Glucose 119 H (60-115) mg/dL Calcium 9.7 (8.4-10.2) mg/dL Phosphorus 3.5 (2.7-4.5) mg/dL Magnesium 1.9 (1.6-2.6) mg/dL Total Bilirubin 0.3 (0.0-1.0) mg/dL AST 20 (5-31) U/L ALT 37 H (0-31) U/L Alkaline Phosphatase 66 (39-117) U/L Troponin I High Sens < 2.7 (<3.5-17.0) ng/L Total Protein 7.5 (6.5-8.0) g/dL Albumin 4.4 (3.5-5.0) g/dL Urine Color Yellow Urine Appearance Clear Urine pH 6.5 (5.0-9.0) Ur Specific [place] 1.010 (1.005-1.025) Urine Protein Negative (Neg-Trace) mg/dL Urine Glucose (UA) Negative (Negative) mg/dL Urine Ketones Negative (Negative) mg/dL Urine Blood Negative (Negative) Urine Nitrite Negative (Negative) Ur Leukocyte Esterase Negative (Negative) Urine RBC 0-2 (0-2) /HPF Urine WBC 0-5 (0-5) /HPF Ur Squamous Epith Cells 0-2 (0-2) /HPF Urine Bacteria None Seen (None Seen) Hyaline Casts 0-2 (0-2) /LPF Independent Interpretation I performed an independent interpretation of an: EKG Tests considered The following testing was considered but not selected: I considered ordering a CT scan of the abdomen/pelvis. However, patient's labs are reassuring. White blood cell count slightly elevated likely secondary to reactive leukocytosis. Physical exam was reassuring as well. No flank pain. At this time, I do not think that a CT scan of the abdomen/pelvis would yield any useful information for the patient's treatment Medications Administered Discontinued Medications Generic Name Dose Route Start Last Admin Trade Name Freq PRN Reason Stop Dose Admin Belladonna Alkaloids/Phenobarbital 10 ml 09/05/23 21:46 09/05/23 22:17 Phenobarb/Hyoscy/Atropine/Scop 10 Ml Elixir PO 09/05/23 21:47 10 ml ONCE ONE Administration Loperamide HCl 4 mg 09/05/23 21:46 09/05/23 22:17 Loperamide Hcl 2 Mg Capsule PO 09/05/23 21:47 4 mg ONCE ONE Administration Ondansetron HCl 4 mg 09/05/23 21:46 09/05/23 22:17 Ondansetron Odt 4 Mg Tab.Rapdis TRANSLINGU 09/05/23 21:47 4 mg ONCE ONE Administration Discharge Plan Discharge Clinical Impression: Nausea vomiting and diarrhea, Abdominal cramping Patient Disposition: Home, Self-Care Instructions: Acute Nausea and Vomiting (ED), Acute Diarrhea (ED), Abdominal Pain (ED) Additional Instructions: Please follow-up with your primary care physician tomorrow. If you have any worsening or new symptoms, please return to the emergency room or call 911 Prescriptions: New hyoscyamine sulfate 0.125 mg tablet 0.125 mg PO QID PRN (Reason: dyspepsia) Qty: 10 0RF loperamide 2 mg capsule 2 mg PO Q6H PRN (Reason: loose stool) Qty: 20 0RF ondansetron HCl 4 mg tablet 4 mg PO Q8H PRN (Reason: nausea and vomiting) Qty: 14 0RF No Action Myrbetriq 50 mg tablet extended release 24 hr 50 mg PO DAILY clozapine 100 mg tablet 200 mg PO BEDTIME lisinopril 40 mg tablet 40 mg PO DAILY clonazepam 1 mg tablet 1 mg PO BID metformin 1,000 mg tablet 1,000 mg PO BIDWM metoprolol succinate 50 mg tablet extended release 24 hr 50 mg PO DAILY Januvia 50 mg tablet 50 mg PO DAILY cetirizine 10 mg tablet 10 mg PO DAILY albuterol sulfate [Proventil HFA] 90 mcg/actuation HFA aerosol inhaler 2 puff inhalation Q4-6H PRN (Reason: shortness of breath or wheezing) Qty: 6.7 0RF pantoprazole 40 mg tablet,delayed release (DR/EC) 40 mg PO BID@0630,1630 Interventions: ED Discharge Assessment Last Done: 09/05/23 22:23 Discharge Date/Time: 09/05/23 22:24
--- NOTE | 2023-09-05 17:03 | ECG_ITS ---
Test Reason : CP Blood Pressure : / mmHG Vent. Rate : 103 BPM Atrial Rate : 103 BPM P-R Int : 170 ms QRS Dur : 086 ms QT Int : 334 ms P-R-T Axes : 041 011 039 degrees QTc Int : 437 ms Sinus tachycardia Possible Left atrial enlargement Minimal voltage criteria for LVH, may be normal variant ( R in aVL ) Borderline ECG When compared with ECG of 15-JUN-2023 11:00, No significant change was found Referred By: Jenni Motta Electronically Signed By:MAGGIE MONTOYA MD
[2023-09-05 17:17] LABS: MANUAL DIFF FLAG NO
[2023-09-05 17:19] LABS: Basophils Percent Auto 0.3 % (0-2); Eosinophils Absolute Auto 0.1 X10*3/uL (0.0-0.4); Eosinophils Percent Auto 0.5 % (0-4); Hematocrit 40.2 % (37.0-47.0); Hemoglobin 13.3 g/dl (12.0-16.0); Imm Gran Abs Auto 0.05 X10*3/uL (0.00-0.03); Imm Gran Pct Auto 0.4 % (0.0-0.4); Mean Corpuscular HGB Conc 33.1 g/dl (31.0-35.0); Mean Corpuscular Hemoglobin 30.1 pg (27.0-33.0); Mean Platelet Volume 9.2 fL (9.4-12.3); Monocytes Absolute Auto 0.5 X10*3/uL (0.1-1.2); Monocytes Percent Auto 3.9 % (2-11); Neutrophils Absolute Auto 8.3 x10*3/uL (2.0-8.3); Neutrophils Percent Auto 63.9 % (45-73); Platelet Count 267 X10*3/uL (160-400); Red Blood Count 4.42 X10*6/uL (4.20-5.50); Red Cell Distribution Width 13.5 % (11.0-16.0)
[2023-09-05 17:33] LABS: Alanine Aminotransferase 37 U/L (0-31); Albumin Level 4.4 g/dL (3.5-5.0); Alkaline Phosphatase 66 U/L (39-117); Anion Gap 14 (12-20); Aspartate Amino Transferase 20 U/L (5-31); Bilirubin Total 0.3 mg/dL (0.0-1.0); Blood Urea Nitrogen 12 mg/dL (9-16); Calcium 9.7 mg/dL (8.4-10.2); Carbon Dioxide 21 mmol/L (22-29); Chloride 106 mmol/L (96-108); Creatinine Clr Calc Pharmacy 144.4; Estimated Glomerular Filt Rate > 60; Glucose Random 119 mg/dL (60-115); Magnesium 1.9 mg/dL (1.6-2.6); Phosphorus 3.5 mg/dL (2.7-4.5); Potassium 3.9 mmol/L (3.3-5.1); Sodium 137 mmol/L (135-145); Total Protein 7.5 g/dL (6.5-8.0)
[2023-09-05 17:33] LABS: Appearance Urine Clear; Color Urine Yellow; Glucose Urine UA Negative (Negative); Leukocyte Esterase Urine Negative (Negative); Nitrite Urine Negative (Negative); PH 6.5 (5.0-9.0); Urine Blood Negative (Negative); Urine Ketones Negative (Negative); Urine Protein Negative (Neg-Trace)
[2023-09-05 17:38] LABS: Bacteria Urine None Seen (None Seen); Hyaline Casts Urine 0-2 /LPF (0-2); RBC Urine 0-2 /HPF (0-2); Squamous Epithelial Cell Urine 0-2 /HPF (0-2); WBC Urine 0-5 /HPF (0-5)
[2023-09-05 17:45] LABS: Troponin-I High Sensitivity < 2.7 ng/L (<3.5-17.0)
[2023-09-05 21:18] VITALS: BP 133/78; PULSE 96; RESP 18; TEMP 36.4; O2SAT 95
[2023-09-05] MEDS: Loperamide HCl 2 MG CAPSULE 4 MG PO (22:17)
[2023-09-05] MEDS: Ondansetron ODT 4 MG TAB.RAPDIS TRANSLINGU (22:17)
[2023-09-05] MEDS: PHENobarb/Hyoscy/Atropine/Scop 10 ML ELIXIR PO (22:17)
== END 2023-09-05 22:24 | disposition home or self-care (01) ==
PROVIDERS: Nurse Practitioner Family; Emergency Provider Emergency Medicine; PCP Internal Medicine
DX: R11.2 Nausea with vomiting, unspecified (principal); R19.7 Diarrhea, unspecified; R10.12 Left upper quadrant pain; E11.9 Type 2 diabetes mellitus without complications; I10 Essential (primary) hypertension; E78.5 Hyperlipidemia, unspecified; F17.210 Nicotine dependence, cigarettes, uncomplicated; F12.90 Cannabis use, unspecified, uncomplicated; E66.9 Obesity, unspecified; Z68.42 Body mass index [BMI] 45.0-49.9, adult; Z79.84 Long term (current) use of oral hypoglycemic drugs; Z79.899 Other long term (current) drug therapy
CPT/HCPCS: 36415; 80053; 81001; 83735; 84100; 84484; 85025; 93005; 99283; 99284

== ENCOUNTER → 2023-09-05 17:03 | Outpatient (BNV) | payer BC, MEDICARE, MEDICAID, SELFPAY | PROVIDERS: Emergency Provider Emergency Medicine; PCP Internal Medicine; Visit Provider Internal Medicine Cardiovascular Disease | DX: R00.0 Tachycardia, unspecified (principal) | CPT/HCPCS: 93010 ==

== ENCOUNTER 2023-10-20 15:46 | Emergency (ER) | payer BC, MEDICARE, MEDICAID, SELFPAY ==
--- NOTE | ~2023-10-20 | CT_ITS ---
EXAMINATION: CT ABDOMEN AND PELVIS WITHOUT CONTRAST CLINICAL INFORMATION: Left flank pain COMPARISON: CT abdomen pelvis 10/06/2022. TECHNIQUE: Multidetector volumetric imaging was performed from the superior aspect of the liver through the pubic symphysis. Sagittal and coronal reformatted images were obtained on the technologist's workstation. This CT examination was performed using dose optimization techniques as appropriate, variously including the following: *Automated exposure control *Adjustment of mA and/or kV according to patient size (this includes techniques or standardized protocols for targeted exams where dose is matched to indication/reason for exam; i.e. extremities or head) *Use of iterative reconstruction technique DLP: 1169 mGy-cm FINDINGS: Evaluation of solid organs, vascular structures, and bowel wall limited in the absence of intravenous contrast. LUNG BASES: Unremarkable. LIVER AND BILIARY TREE: Hepatomegaly with liver spanning 21.8 cm in craniocaudal dimension. Diffuse hepatic steatosis. No focal hepatic lesions identified within the limitations of noncontrast technique. GALLBLADDER: Status post cholecystectomy. PANCREAS: Unremarkable. SPLEEN: Unremarkable. ADRENAL GLANDS: Unremarkable. KIDNEYS AND URETERS: Bilateral renal simple cysts for which no follow-up imaging is recommended. No hydronephrosis. No urinary tract calculi identified. GASTROINTESTINAL TRACT: Unremarkable. Normal appendix. VASCULAR: Unremarkable LYMPH NODES: No lymphadenopathy. PERITONEUM: No ascites. BLADDER: Unremarkable. PELVIC VISCERA: Unremarkable. ABDOMINAL AND PELVIC WALL: Unremarkable. OSSEOUS STRUCTURES: Redemonstrated moderate focal L5-S1 disc space narrowing with endplate degenerative changes. CT/CT abdomen pelvis wo IV con IMPRESSION: 1. No urinary tract calculi identified, hydronephrosis or other acute abnormality of the abdomen or pelvis, within limitations of noncontrast technique. 2. Hepatomegaly and diffuse hepatic steatosis.
--- NOTE | 2023-10-20 15:50 | ED.BACK ---
HPI - Back Pain/Injury General Chief Complaint: Back Pain/Injury Stated Complaint: lwr lft back pain/tailbone cyst popped? Time Seen by Provider: 10/20/23 16:15 Source: patient, RN notes reviewed and old records reviewed Mode of arrival: ambulatory Limitations: no limitations History of Present Illness HPI Narrative: 48-year-old female presents for evaluation of 2 separate complaints Patient's primary complaint is left mid back pain that seemed to start last night but got worse this morning upon waking She denies any specific injury, falls, straining motions or heavy lifting Patient reports that she went to the [employer] last night and then over a friend's house but did not do anything excessive She did start to feel the pain last night Patient endorses urinating frequently felt the day today but denies any blood in the urine She does state that her pain radiates around to her left upper abdomen She reports a history of kidney stones but is unsure if this feels similar Patient reports that she is due for rotator cuff surgery on Saturday Patient has additional complaint is ?I think I have a pilonidal abscess that popped this morning. ? She reports that she has had an area of swelling to the top of the buttocks for the last couple of weeks but today while having a bowel movement ?I noticed some pus and blood on the toilet seat. She denies any pain to the area Related Data Home Medications Medication Instructions Recorded Confirmed pantoprazole 40 mg tablet,delayed 40 mg PO BID@0630,1630 11/22/20 04/27/23 release clozapine 100 mg tablet 200 mg PO BEDTIME 11/13/21 04/27/23 lisinopril 40 mg tablet 40 mg PO DAILY 11/13/21 04/27/23 sitagliptin phosphate 50 mg tablet 50 mg PO DAILY 04/17/22 04/27/23 (Januvia) clonazepam 1 mg tablet 1 mg PO BID anxiety 07/03/22 04/27/23 metformin 1,000 mg tablet 1,000 mg PO BIDWM 07/03/22 04/27/23 metoprolol succinate 50 mg 50 mg PO DAILY 07/03/22 04/27/23 tablet,extended release 24 hr mirabegron 50 mg tablet,extended 50 mg PO DAILY 07/03/22 04/27/23 release 24 hr (Myrbetriq) cetirizine 10 mg tablet 10 mg PO DAILY 04/27/23 04/27/23 Previous Rx's Medication Instructions Recorded albuterol sulfate 90 mcg/actuation 2 puff inhalation Q4-6H PRN 05/01/23 aerosol inhaler (Proventil HFA) shortness of breath or wheezing #6.7 grams hyoscyamine sulfate 0.125 mg tablet 0.125 mg PO QID PRN dyspepsia #10 09/05/23 tabs loperamide 2 mg capsule 2 mg PO Q6H PRN loose stool #20 09/05/23 caps ondansetron HCl 4 mg tablet 4 mg PO Q8H PRN nausea and 09/05/23 vomiting #14 tabs tramadol 50 mg tablet 50 mg PO Q6H PRN severe pain 10/20/23 (scale score 7-10) #12 tabs Allergies Allergy/AdvReac Type Severity Reaction Status Date / Time Penicillins [PENICILLINS] Allergy Severe ANAPHYLAXIS Verified 09/05/23 17:03 adhesive [ADHESIVE] Allergy Unknown RASH Verified 09/05/23 17:03 artichoke [ARTICHOKE] Allergy Unknown RASH Verified 09/05/23 17:03 carbamazepine [From TEGRETOL] Allergy Unknown MIGRAINES Verified 09/05/23 17:03 cariprazine [From VRAYLAR] Allergy Unknown LEG CRAMPS Verified 09/05/23 17:03 fentanyl [FENTANYL] Allergy Unknown RASH Verified 09/05/23 17:03 lamotrigine [From LAMICTAL] Allergy Unknown RASH Verified 09/05/23 17:03 lithium [LITHIUM] AdvReac Severe tremor and Verified 09/05/23 17:03 falls Review of Systems Constitutional: Constitutional: Denies chills and Denies fever(s) Eyes: Eyes: Denies blurry vision ENT: Denies vertigo Cardiovascular: Cardiovascular: Denies chest pain and Denies dyspnea Respiratory: Respiratory: Denies cough and Denies dyspnea Gastrointestinal: Gastrointestinal: Reports abdominal pain (left upper abdomen), Denies nausea and Denies vomiting Genitourinary: Genitourinary: Reports flank pain Musculoskeletal: Musculoskeletal: Reports back pain Integumentary/Breasts: Skin/Breast: Denies rash Neurologic: Denies vertigo PMFSH Past Medical History Medical History Diabetes Thrombosed external hemorrhoid Morbid obesity with BMI of 45.0-49.9, adult Depression Anxiety Renal colic Migraines PCOS (polycystic ovarian syndrome) Pre-diabetes Hypertension High cholesterol GERD (gastroesophageal reflux disease) Obstructive sleep apnea Bipolar disease, chronic Surgical History History of cholecystectomy History of dilation and curettage Family History Family History Father Coronary artery disease Other Breast cancer Social History Social History Household Members: Spouse and Children Housing: Apartment Do you presently have visiting nurse or other home services: No Alcohol intake: never Patient Tobacco Use Status: Current everyday Tobacco user Tobacco use type: Cigarette Cigarette Packs Per Day: 1 Cigarettes Per Day: 20.0 Years Smoked: 30 +/- Smoked in Last 30 Days: Yes Use of substances other than those prescribed or required for medical reasons: Yes Substance Use Type: Marijuana Advance Directives: No Advance Directives Information Provided: No Patient : No service: No Current occupational status: employed Physical Exam Vital Signs: Vital Signs: Last Vital Signs Temp 98.1 F 10/20/23 15:51 Pulse 101 H 10/20/23 15:51 Resp 16 10/20/23 17:15 BP 156/96 H 10/20/23 15:51 Pulse Ox 97 10/20/23 15:51 O2 Del Method Room Air 10/20/23 15:51 BMI result Body Mass Index 48.9 Const: General: healthy appearing, comfortable, no acute distress, alert and awake Nutritional Appearance: well nourished Orientation/consciousness: patient oriented x3 HEENT: Head: Yes normocephalic and Yes atraumatic Eyes: Eyelids: Yes eyelids normal Conjunctivae: conjunctivae normal Sclerae: sclerae normal Corneas: corneas normal Pupils: Equal, round and reactive pupils present EOM: EOMs intact bilaterally Neck: Neck: Yes full ROM Resp: Effort & Inspection: normal respiratory effort, able to speak in complete sentences and not labored GI: Inspection: No distended and Yes obesity Palpation (GI): Soft to palpation, not firm, Tenderness to palpation present (GI) (Patient is tender in the left upper quadrant without any guarding. ), no guarding and not rigid Back/Spine/Pelvis: Other: Patient is tender in the left thoracic paraspinous region. No focal deformities, no vertebral tenderness. No lumbar paraspinous muscle tenderness. Straight leg raise negative bilaterally. Skin: Other: Patient has an area of induration to the gluteal cleft, approximately 2 x 3 cm no surrounding erythema, no tenderness to palpation, no fluctuance. No obvious purulent drainage General skin exam: elasticity normal Neuro: General: patient oriented x3 Cranial nerves: Yes Equal, round and reactive pupils present and Yes Bilaterally intact EOM present Cognition (Neuro): normal cognition Course Course Course Narrative: This is an RME: Additional HPI, ROS, PE not included below will be deferred to primary provider. Patient is a 40-year-old who presents emergency department for evaluation severe left back pain, nausea/ vomiting, onset last night. Made worse with particular movements. Denies any known precipitating injury, does admit to doing a lot of walking yesterday. Denies symptoms. Does report a history of kidney stones in the past however this pain feels worse. Plan: Labs, urinalysis Reevaluation(s) Reevaluation #1: Patient's workup largely unremarkable. I discussed this with the patient. Her labs, CT imaging as well as urine sample. Will discharge her home with tramadol Time: 18:38 Medications Administered Discontinued Medications Generic Name Dose Route Start Last Admin Trade Name Freq PRN Reason Stop Dose Admin Sodium Chloride 1,000 mls @ 999 mls/hr 10/20/23 16:30 10/20/23 18:24 Ns IV 10/20/23 17:30 Infused .Q1H1M CAROLE Infusion Morphine Sulfate 4 mg 10/20/23 16:29 10/20/23 17:15 Morphine Sulfate 4 Mg/Ml Cartridge IVPUSH 10/20/23 16:30 4 mg ONCE ONE Administration Protocol Ondansetron HCl 4 mg 10/20/23 16:29 10/20/23 17:10 Ondansetron Hcl 4 Mg/2 Ml Vial IVPUSH 10/20/23 16:30 4 mg ONCE ONE Administration Medical Decision Making Medical Decision Making MDM Narrative: [age] female presents for evaluation of left mid back pain. The pain radiates around to the left upper abdomen. On exam the pain is most likely musculoskeletal in origin. However she also complains of pain radiating to her abdomen and urinary frequency. Will get a CT scan the abdomen pelvis to evaluate for obstructive uropathy. Patient's concern of pilonidal abscess as the fairly reassuring exam. She has some induration but no significant erythema, no tenderness on exam, no purulence or fluctuance. I do not see any indication for incision and drainage. Differential Diagnosis Differential Diagnoses: The differential diagnosis associated with the presentation includes Left flank pain Muscle strain Contusion Obstructive uropathy Pyelonephritis Pilonidal abscess Lab Data MDM Lab Attestation statement: I reviewed the patient's lab results. No leukocytosis or anemia. Normal platelet count. No electrolyte abnormalities. Normal renal function 10/20/23 16:05 10/20/23 16:05 Labs: Lab Results 10/20/23 Range/Units 16:05 WBC 10.2 (4.8-10.8) X10*3/uL RBC 4.45 (4.20-5.50) X10*6/uL Hgb 13.7 (12.0-16.0) g/dl Hct 40.8 (37.0-47.0) % MCV 91.7 (80.0-98.0) fL MCH 30.8 (27.0-33.0) pg MCHC 33.6 (31.0-35.0) g/dl RDW 13.2 (11.0-16.0) % Plt Count 187 D (160-400) X10*3/uL MPV 10.3 (9.4-12.3) fL Immature Gran % (Auto) 0.1 (0.0-0.4) % Neut % (Auto) 55.9 (45-73) % Lymph % (Auto) 36.9 (20-40) % [place] % (Auto) 6.1 (2-11) % Eos % (Auto) 0.6 (0-4) % Baso % (Auto) 0.4 (0-2) % Lymph # (Auto) 3.8 (1.2-4.9) X10*3/uL [place] # (Auto) 0.6 (0.1-1.2) X10*3/uL Eos # (Auto) 0.1 (0.0-0.4) X10*3/uL Baso # (Auto) 0.0 (0.0-0.2) X10*3/uL Abs Immat Gran (auto) 0.01 (0.00-0.03) X10*3/uL Absolute Neuts (auto) 5.7 (2.0-8.3) x10*3/uL Absolute Nucleated RBC 0.000 (0.0-0.012) X10*3/uL Nucleated RBC % (auto) 0.0 (0.0-0.2) /100WBC Sodium 140 (135-145) mmol/L Potassium 4.5 (3.3-5.1) mmol/L Chloride 107 (96-108) mmol/L Carbon Dioxide 20 L (22-29) mmol/L Anion Gap 18 (12-20) BUN 12 (9-16) mg/dL Creatinine 0.78 (0.5-1.4) mg/dL Estim Creat Clear Calc 130.2 Estimated GFR > 60 Random Glucose 83 (60-115) mg/dL Calcium 9.3 (8.4-10.2) mg/dL Total Bilirubin 0.2 (0.0-1.0) mg/dL AST 21 (5-31) U/L ALT 31 (0-31) U/L Alkaline Phosphatase 70 (39-117) U/L Total Protein 7.8 (6.5-8.0) g/dL Albumin 4.4 (3.5-5.0) g/dL Urine Color Yellow Urine Appearance Clear Urine pH 7.0 (5.0-9.0) Ur Specific [place] 1.010 (1.005-1.025) Urine Protein Negative (Neg-Trace) mg/dL Urine Glucose (UA) Negative (Negative) mg/dL Urine Ketones Negative (Negative) mg/dL Urine Blood Negative (Negative) Urine Nitrite Negative (Negative) Ur Leukocyte Esterase Negative (Negative) Radiology Impression Discussion of test interpretation with radiology: I have reviewed the radiologist's reading. (No acute intra-abdominal pathology) Discharge Plan Discharge Clinical Impression: Mid back pain on left side Patient Disposition: Home, Self-Care Instructions: Back Pain (ED) Additional Instructions: You may continue to use ibuprofen/Tylenol for pain. Use tramadol for more severe breakthrough pain. This may make you sleepy, did not drink alcohol or drive after taking it Apply warm compresses several times per day Prescriptions: New tramadol 50 mg tablet 50 mg PO Q6H PRN (Reason: severe pain (scale score 7-10)) Qty: 12 0RF No Action Myrbetriq 50 mg tablet extended release 24 hr 50 mg PO DAILY clozapine 100 mg tablet 200 mg PO BEDTIME lisinopril 40 mg tablet 40 mg PO DAILY clonazepam 1 mg tablet 1 mg PO BID metformin 1,000 mg tablet 1,000 mg PO BIDWM metoprolol succinate 50 mg tablet extended release 24 hr 50 mg PO DAILY Januvia 50 mg tablet 50 mg PO DAILY cetirizine 10 mg tablet 10 mg PO DAILY hyoscyamine sulfate 0.125 mg tablet 0.125 mg PO QID PRN (Reason: dyspepsia) Qty: 10 0RF loperamide 2 mg capsule 2 mg PO Q6H PRN (Reason: loose stool) Qty: 20 0RF ondansetron HCl 4 mg tablet 4 mg PO Q8H PRN (Reason: nausea and vomiting) Qty: 14 0RF albuterol sulfate [Proventil HFA] 90 mcg/actuation HFA aerosol inhaler 2 puff inhalation Q4-6H PRN (Reason: shortness of breath or wheezing) Qty: 6.7 0RF pantoprazole 40 mg tablet,delayed release (DR/EC) 40 mg PO BID@0630,1630
[2023-10-20 15:51] VITALS: BP 156/96; PULSE 101; RESP 18; TEMP 36.7; O2SAT 97; BMI 48.9
[2023-10-20 16:10] LABS: MANUAL DIFF FLAG NO
[2023-10-20 16:12] LABS: Basophils Percent Auto 0.4 % (0-2); Eosinophils Absolute Auto 0.1 X10*3/uL (0.0-0.4); Eosinophils Percent Auto 0.6 % (0-4); Hematocrit 40.8 % (37.0-47.0); Hemoglobin 13.7 g/dl (12.0-16.0); Imm Gran Abs Auto 0.01 X10*3/uL (0.00-0.03); Imm Gran Pct Auto 0.1 % (0.0-0.4); Lymphocytes Absolute Auto 3.8 X10*3/uL (1.2-4.9); Lymphocytes Percent Auto 36.9 % (20-40); Mean Corpuscular HGB Conc 33.6 g/dl (31.0-35.0); Mean Corpuscular Hemoglobin 30.8 pg (27.0-33.0); Mean Corpuscular Volume 91.7 fL (80.0-98.0); Mean Platelet Volume 10.3 fL (9.4-12.3); Monocytes Absolute Auto 0.6 X10*3/uL (0.1-1.2); Monocytes Percent Auto 6.1 % (2-11); Neutrophils Absolute Auto 5.7 x10*3/uL (2.0-8.3); Neutrophils Percent Auto 55.9 % (45-73); Platelet Count 187 X10*3/uL (160-400); Red Blood Count 4.45 X10*6/uL (4.20-5.50); Red Cell Distribution Width 13.2 % (11.0-16.0); White Blood Count 10.2 X10*3/uL (4.8-10.8)
[2023-10-20 16:15] LABS: Appearance Urine Clear; Color Urine Yellow; Glucose Urine UA Negative (Negative); Leukocyte Esterase Urine Negative (Negative); Nitrite Urine Negative (Negative); Urine Blood Negative (Negative); Urine Ketones Negative (Negative); Urine Protein Negative (Neg-Trace)
[2023-10-20 16:28] LABS: Alanine Aminotransferase 31 U/L (0-31); Albumin Level 4.4 g/dL (3.5-5.0); Alkaline Phosphatase 70 U/L (39-117); Anion Gap 18 (12-20); Aspartate Amino Transferase 21 U/L (5-31); Bilirubin Total 0.2 mg/dL (0.0-1.0); Blood Urea Nitrogen 12 mg/dL (9-16); Calcium 9.3 mg/dL (8.4-10.2); Carbon Dioxide 20 mmol/L (22-29); Chloride 107 mmol/L (96-108); Creatinine Clr Calc Pharmacy 130.2; Estimated Glomerular Filt Rate > 60; Glucose Random 83 mg/dL (60-115); Potassium 4.5 mmol/L (3.3-5.1); Sodium 140 mmol/L (135-145); Total Protein 7.8 g/dL (6.5-8.0)
[2023-10-20] MEDS: 0.9 % Sodium Chloride 1,000 ML 999 ML IV (17:00)
[2023-10-20] MEDS: ondansetron HCL 4 MG/2 ML VIAL IVPUSH (17:10)
[2023-10-20 17:15] VITALS: RESP 16
[2023-10-20] MEDS: Morphine Sulfate 4 MG/ML CARTRIDGE IVPUSH (17:15)
[2023-10-20 19:00] VITALS: PULSE 86; RESP 16; O2SAT 97
== END 2023-10-20 19:01 | disposition home or self-care (01) ==
PROVIDERS: Nurse Practitioner Family; Emergency Provider Emergency Medicine; PCP Internal Medicine
DX: M54.50 Low back pain, unspecified (principal); R35.0 Frequency of micturition; R10.12 Left upper quadrant pain; F17.210 Nicotine dependence, cigarettes, uncomplicated; Z71.6 Tobacco abuse counseling; Z87.442 Personal history of urinary calculi; Z79.899 Other long term (current) drug therapy
CPT/HCPCS: 36415; 74176; 80053; 81003; 85025; 96361; 96374; 96375; 99284; J2270; J2405

== ENCOUNTER 2023-10-31 10:23 | Outpatient (REF) | payer BC, MEDICARE, MEDICAID, SELFPAY ==
[2023-10-31 10:41] LABS: MANUAL DIFF FLAG NO
[2023-10-31 11:06] LABS: Basophils Percent Auto 0.2 % (0-2); Eosinophils Absolute Auto 0.1 X10*3/uL (0.0-0.4); Eosinophils Percent Auto 0.7 % (0-4); Hematocrit 37.9 % (37.0-47.0); Hemoglobin 12.6 g/dl (12.0-16.0); Imm Gran Abs Auto 0.03 X10*3/uL (0.00-0.03); Imm Gran Pct Auto 0.3 % (0.0-0.4); Lymphocytes Absolute Auto 1.8 X10*3/uL (1.2-4.9); Mean Corpuscular HGB Conc 33.2 g/dl (31.0-35.0); Mean Corpuscular Volume 90.2 fL (80.0-98.0); Mean Platelet Volume 9.9 fL (9.4-12.3); Monocytes Absolute Auto 0.4 X10*3/uL (0.1-1.2); Monocytes Percent Auto 4.3 % (2-11); Neut%MD 76.5 %; Neutrophils Absolute Auto 7.7 x10*3/uL (2.0-8.3); Neutrophils Percent Auto 76.5 % (45-73); Platelet Count 248 X10*3/uL (160-400); Red Cell Distribution Width 13.4 % (11.0-16.0)
== END 2023-10-31 10:24 | disposition home or self-care (01) ==
LOC: HO.LABR 10:23
PROVIDERS: PCP Internal Medicine; Visit Provider Clinical Nurse Specialist Psychiatric/Mental Health, Child & Adolescent
DX: Z79.899 Other long term (current) drug therapy (principal)
CPT/HCPCS: 36415; 85025

== ENCOUNTER 2023-12-02 12:01 | Outpatient (REF) | payer BC, MEDICARE, MEDICAID, SELFPAY ==
[2023-12-02 12:13] LABS: MANUAL DIFF FLAG NO
[2023-12-02 12:41] LABS: Basophils Absolute Auto 0.1 X10*3/uL (0.0-0.2); Basophils Percent Auto 0.5 % (0-2); Eosinophils Absolute Auto 0.1 X10*3/uL (0.0-0.4); Eosinophils Percent Auto 0.7 % (0-4); Hematocrit 40.4 % (37.0-47.0); Hemoglobin 13.3 g/dl (12.0-16.0); Imm Gran Abs Auto 0.03 X10*3/uL (0.00-0.03); Imm Gran Pct Auto 0.3 % (0.0-0.4); Lymphocytes Absolute Auto 2.8 X10*3/uL (1.2-4.9); Lymphocytes Percent Auto 29.3 % (20-40); Mean Corpuscular HGB Conc 32.9 g/dl (31.0-35.0); Mean Corpuscular Hemoglobin 30.3 pg (27.0-33.0); Monocytes Absolute Auto 0.5 X10*3/uL (0.1-1.2); Monocytes Percent Auto 5.4 % (2-11); Neutrophils Absolute Auto 6.2 x10*3/uL (2.0-8.3); Neutrophils Percent Auto 63.8 % (45-73); Platelet Count 265 X10*3/uL (160-400); Red Blood Count 4.39 X10*6/uL (4.20-5.50); Red Cell Distribution Width 13.3 % (11.0-16.0); White Blood Count 9.7 X10*3/uL (4.8-10.8)
== END 2023-12-02 12:02 | disposition home or self-care (01) ==
LOC: HO.LAB 12:01
PROVIDERS: PCP Internal Medicine; Visit Provider Clinical Nurse Specialist Psychiatric/Mental Health, Child & Adolescent
DX: Z79.899 Other long term (current) drug therapy (principal)
CPT/HCPCS: 36415; 85025

== ENCOUNTER 2023-12-27 12:03 | Outpatient (REF) | payer BC, MEDICARE, SELFPAY ==
[2023-12-27 12:13] LABS: MANUAL DIFF FLAG NO
[2023-12-27 13:08] LABS: Basophils Percent Auto 0.5 % (0-2); Eosinophils Absolute Auto 0.1 X10*3/uL (0.0-0.4); Eosinophils Percent Auto 0.7 % (0-4); Hematocrit 39.2 % (37.0-47.0); Hemoglobin 12.9 g/dl (12.0-16.0); Imm Gran Abs Auto 0.03 X10*3/uL (0.00-0.03); Imm Gran Pct Auto 0.4 % (0.0-0.4); Lymphocytes Absolute Auto 2.5 X10*3/uL (1.2-4.9); Lymphocytes Percent Auto 30.2 % (20-40); Mean Corpuscular HGB Conc 32.9 g/dl (31.0-35.0); Mean Corpuscular Hemoglobin 30.1 pg (27.0-33.0); Mean Corpuscular Volume 91.6 fL (80.0-98.0); Mean Platelet Volume 10.1 fL (9.4-12.3); Monocytes Absolute Auto 0.5 X10*3/uL (0.1-1.2); Monocytes Percent Auto 5.5 % (2-11); Neutrophils Absolute Auto 5.3 x10*3/uL (2.0-8.3); Neutrophils Percent Auto 62.7 % (45-73); Platelet Count 252 X10*3/uL (160-400); Red Blood Count 4.28 X10*6/uL (4.20-5.50); Red Cell Distribution Width 13.1 % (11.0-16.0); White Blood Count 8.4 X10*3/uL (4.8-10.8)
== END 2023-12-27 12:04 | disposition home or self-care (01) ==
LOC: HO.LAB 12:03
PROVIDERS: Visit Provider Clinical Nurse Specialist Psychiatric/Mental Health, Child & Adolescent
DX: Z79.899 Other long term (current) drug therapy (principal); Z51.81 Encounter for therapeutic drug level monitoring
CPT/HCPCS: 36415; 85025

== ENCOUNTER 2024-01-14 10:34 | Outpatient (REF) | payer BC, MEDICARE, MEDICAID, SELFPAY ==
[2024-01-14 14:28] LABS: MANUAL DIFF FLAG NO
[2024-01-14 14:42] LABS: Basophils Percent Auto 0.3 % (0-2); Eosinophils Absolute Auto 0.1 X10*3/uL (0.0-0.4); Eosinophils Percent Auto 0.5 % (0-4); Hematocrit 43.1 % (37.0-47.0); Hemoglobin 13.9 g/dl (12.0-16.0); Imm Gran Abs Auto 0.04 X10*3/uL (0.00-0.03); Imm Gran Pct Auto 0.4 % (0.0-0.4); Lymphocytes Absolute Auto 2.9 X10*3/uL (1.2-4.9); Lymphocytes Percent Auto 27.7 % (20-40); Mean Corpuscular HGB Conc 32.3 g/dl (31.0-35.0); Mean Corpuscular Volume 92.9 fL (80.0-98.0); Mean Platelet Volume 10.6 fL (9.4-12.3); Monocytes Absolute Auto 0.5 X10*3/uL (0.1-1.2); Monocytes Percent Auto 4.5 % (2-11); Neutrophils Absolute Auto 7.1 x10*3/uL (2.0-8.3); Neutrophils Percent Auto 66.6 % (45-73); Platelet Count 291 X10*3/uL (160-400); Red Blood Count 4.64 X10*6/uL (4.20-5.50); Red Cell Distribution Width 13.4 % (11.0-16.0); White Blood Count 10.6 X10*3/uL (4.8-10.8)
== END 2024-01-14 10:35 | disposition home or self-care (01) ==
LOC: HO.CHCLDS 10:34
PROVIDERS: Visit Provider Internal Medicine
DX: R10.13 Epigastric pain (principal)
CPT/HCPCS: 36415; 85025

== ENCOUNTER 2024-01-16 14:59 | Outpatient (REF) | payer BC, MEDICARE, MEDICAID, SELFPAY ==
[2024-01-16 17:59] LABS: Alanine Aminotransferase 27 U/L (0-31); Albumin Level 4.6 g/dL (3.5-5.0); Alkaline Phosphatase 78 U/L (39-117); Anion Gap 15 (12-20); Aspartate Amino Transferase 17 U/L (5-31); Bilirubin Direct < 0.2 mg/dL (0.0-0.5); Bilirubin Total 0.2 mg/dL (0.0-1.0); Blood Urea Nitrogen 11 mg/dL (9-16); Carbon Dioxide 27 mmol/L (22-29); Chloride 104 mmol/L (96-108); Estimated Glomerular Filt Rate > 60; Glucose Random 109 mg/dL (60-115); Lipase 44 U/L (8-78); Potassium 3.9 mmol/L (3.3-5.1); Sodium 142 mmol/L (135-145); Total Protein 7.7 g/dL (6.5-8.0)
[2024-01-17 05:27] LABS: Estimated Average Glucose 131 mg/dL; Hemoglobin A1c % 6.2 % (<6.0)
== END 2024-01-16 15:00 | disposition home or self-care (01) ==
LOC: HO.CHCLDS 14:59
PROVIDERS: Visit Provider Pediatrics
DX: R10.10 Upper abdominal pain, unspecified (principal)
CPT/HCPCS: 36415; 80048; 80076; 83036; 83690

== ENCOUNTER 2024-01-23 12:03 | Outpatient (REF) | payer BC, MEDICARE, SELFPAY ==
[2024-01-23 12:16] LABS: MANUAL DIFF FLAG NO
[2024-01-23 12:38] LABS: Basophils Percent Auto 0.4 % (0-2); Eosinophils Absolute Auto 0.1 X10*3/uL (0.0-0.4); Eosinophils Percent Auto 0.5 % (0-4); Hematocrit 40.1 % (37.0-47.0); Hemoglobin 13.5 g/dl (12.0-16.0); Imm Gran Abs Auto 0.04 X10*3/uL (0.00-0.03); Imm Gran Pct Auto 0.4 % (0.0-0.4); Lymphocytes Absolute Auto 3.1 X10*3/uL (1.2-4.9); Lymphocytes Percent Auto 28.5 % (20-40); Mean Corpuscular HGB Conc 33.7 g/dl (31.0-35.0); Mean Corpuscular Hemoglobin 30.5 pg (27.0-33.0); Mean Corpuscular Volume 90.7 fL (80.0-98.0); Monocytes Absolute Auto 0.5 X10*3/uL (0.1-1.2); Monocytes Percent Auto 4.5 % (2-11); Neutrophils Absolute Auto 7.2 x10*3/uL (2.0-8.3); Neutrophils Percent Auto 65.7 % (45-73); Platelet Count 248 X10*3/uL (160-400); Red Blood Count 4.42 X10*6/uL (4.20-5.50); Red Cell Distribution Width 13.2 % (11.0-16.0); White Blood Count 10.9 X10*3/uL (4.8-10.8)
== END 2024-01-23 12:04 | disposition home or self-care (01) ==
LOC: HO.LABR 12:03
PROVIDERS: PCP Internal Medicine; Visit Provider Clinical Nurse Specialist Psychiatric/Mental Health, Child & Adolescent
DX: Z51.81 Encounter for therapeutic drug level monitoring (principal); Z79.899 Other long term (current) drug therapy
CPT/HCPCS: 36415; 85025

== ENCOUNTER 2024-02-20 11:01 | Outpatient (REF) | payer BC, MEDICARE, SELFPAY ==
[2024-02-20 11:21] LABS: MANUAL DIFF FLAG NO
[2024-02-20 12:04] LABS: Basophils Absolute Auto 0.1 X10*3/uL (0.0-0.2); Basophils Percent Auto 0.5 % (0-2); Eosinophils Percent Auto 0.4 % (0-4); Hematocrit 40.5 % (37.0-47.0); Hemoglobin 13.6 g/dl (12.0-16.0); Imm Gran Abs Auto 0.03 X10*3/uL (0.00-0.03); Imm Gran Pct Auto 0.3 % (0.0-0.4); Lymphocytes Absolute Auto 3.3 X10*3/uL (1.2-4.9); Lymphocytes Percent Auto 30.2 % (20-40); Mean Corpuscular HGB Conc 33.6 g/dl (31.0-35.0); Mean Corpuscular Hemoglobin 30.3 pg (27.0-33.0); Mean Corpuscular Volume 90.2 fL (80.0-98.0); Monocytes Absolute Auto 0.5 X10*3/uL (0.1-1.2); Monocytes Percent Auto 4.5 % (2-11); Neutrophils Absolute Auto 6.9 x10*3/uL (2.0-8.3); Neutrophils Percent Auto 64.1 % (45-73); Platelet Count 308 X10*3/uL (160-400); Red Blood Count 4.49 X10*6/uL (4.20-5.50); Red Cell Distribution Width 13.4 % (11.0-16.0); White Blood Count 10.8 X10*3/uL (4.8-10.8)
== END 2024-02-20 11:02 | disposition home or self-care (01) ==
LOC: HO.LABR 11:01
PROVIDERS: PCP Internal Medicine; Visit Provider Clinical Nurse Specialist Psychiatric/Mental Health, Child & Adolescent
DX: Z79.899 Other long term (current) drug therapy (principal); Z51.81 Encounter for therapeutic drug level monitoring
CPT/HCPCS: 36415; 85025

== ENCOUNTER 2024-03-16 18:33 | Emergency (ER) | payer BC, MEDICARE, SELFPAY ==
--- NOTE | ~2024-03-16 | CT_ITS ---
EXAMINATION: CT ABDOMEN AND PELVIS WITHOUT CONTRAST CLINICAL INFORMATION: Right-sided abdominal pain. COMPARISON: CT scan abdomen pelvis October 20, 2023 TECHNIQUE: Multidetector volumetric imaging was performed from the superior aspect of the liver through the pubic symphysis. Sagittal and coronal reformatted images were obtained on the technologist's workstation. This CT examination was performed using dose optimization techniques as appropriate, variously including the following: *Automated exposure control *Adjustment of mA and/or kV according to patient size (this includes techniques or standardized protocols for targeted exams where dose is matched to indication/reason for exam; i.e. extremities or head) *Use of iterative reconstruction technique DLP: 1303 mGy-cm FINDINGS: LUNG BASES: The visualized lung bases are unremarkable. LIVER, GALLBLADDER, AND BILIARY TREE: Hepatomegaly. Right lobe of liver measures 21 cm superior-inferior. Low attenuation of liver parenchyma consistent with diffuse fatty change. No focal liver lesion or intrahepatic bile duct dilatation. Status post cholecystectomy. PANCREAS: Unremarkable. SPLEEN: Unremarkable. ADRENAL GLANDS: Unremarkable. KIDNEYS AND URETERS: The kidneys are normal in size, shape, and attenuation. No hydronephrosis, hydroureter, or calculi seen. No perinephric stranding. BLADDER: Unremarkable. GASTROINTESTINAL TRACT: The small and large bowel are unremarkable. The appendix is unremarkable. ABDOMINAL WALL: No significant hernia is appreciated. LYMPH NODES: Normal. VASCULAR: Unremarkable. PELVIC VISCERA: Unremarkable. OSSEOUS STRUCTURES: Unremarkable. CT/CT abdomen pelvis wo IV con IMPRESSION: 1. No acute abnormality CT scan abdomen pelvis. 2. Hepatomegaly. Diffuse fatty change of liver. 3. Status post cholecystectomy. Fleischner guidelines were followed.
--- NOTE | ~2024-03-16 | US_ITS ---
Examination: US appendix Indication: RLQ pain Comparison: 09/30/2023 CT scan Technique: Multiple sonographic views of the right lower quadrant were obtained Findings: Appendix is not able to be visualized. There is a significant amount of bowel and bowel gas but no discrete mass lesion or fluid collection seen. Right ovary is not visualized US/US appendix Impression: No acute abnormality seen but the appendix is not able to be visualized.
--- NOTE | 2024-03-16 18:58 | ED_ITS ---
HPI - Abdominal Pain General Chief Complaint: Abdominal Pain Stated Complaint: abdominal pain, referred from UC Time Seen by Provider: 03/16/24 21:33 Related Data Home Medications ?Medication ?Instructions ?Recorded ?Confirmed pantoprazole 40 mg tablet,delayed 40 mg PO BID@0630,1630 11/22/20 03/17/24 release clozapine 100 mg tablet 200 mg PO BEDTIME 11/13/21 03/17/24 lisinopril 40 mg tablet 40 mg PO DAILY 11/13/21 03/17/24 sitagliptin phosphate 50 mg tablet 50 mg PO DAILY 04/17/22 03/17/24 (Januvia) clonazepam 1 mg tablet 1 mg PO BID anxiety 07/03/22 03/17/24 metformin 1,000 mg tablet 1,000 mg PO BIDWM 07/03/22 03/17/24 metoprolol succinate 50 mg 50 mg PO DAILY 07/03/22 03/17/24 tablet,extended release 24 hr mirabegron 50 mg tablet,extended 50 mg PO DAILY 07/03/22 03/17/24 release 24 hr (Myrbetriq) Previous Rx's ?Medication ?Instructions ?Recorded albuterol sulfate 90 mcg/actuation 2 puff inhalation Q4-6H PRN 05/01/23 aerosol inhaler (Proventil HFA) shortness of breath or wheezing #6.7 grams ondansetron HCl 4 mg tablet 4 mg PO Q8H PRN nausea and 09/05/23 vomiting #14 tabs Allergies Allergy/AdvReac Type Severity Reaction Status Date / Time Penicillins [PENICILLINS] Allergy Severe ANAPHYLAXIS Verified 03/17/24 10:13 adhesive [ADHESIVE] Allergy Unknown RASH Verified 03/17/24 10:13 artichoke [ARTICHOKE] Allergy Unknown RASH Verified 03/17/24 10:13 carbamazepine [From TEGRETOL] Allergy Unknown MIGRAINES Verified 03/17/24 10:13 cariprazine [From VRAYLAR] Allergy Unknown LEG CRAMPS Verified 03/17/24 10:13 fentanyl [FENTANYL] Allergy Unknown RASH Verified 03/17/24 10:13 lamotrigine [From LAMICTAL] Allergy Unknown RASH Verified 03/17/24 10:13 lithium [LITHIUM] AdvReac Severe tremor and Verified 03/17/24 10:13 falls dicyclomine AdvReac Hallucinati Verified 03/17/24 10:13 ons [facility] Past Medical History Medical History (Updated 03/18/24 @ 00:01 by Deepika Alexandre) Hypertension Diabetes Thrombosed external hemorrhoid Morbid obesity with BMI of 45.0-49.9, adult Depression Anxiety Renal colic Migraines PCOS (polycystic ovarian syndrome) Pre-diabetes High cholesterol GERD (gastroesophageal reflux disease) Obstructive sleep apnea Bipolar disease, chronic Surgical History History of cholecystectomy History of dilation and curettage Family History Family History Father Coronary artery disease Other Breast cancer Social History Social History Household Members: Spouse and Children Housing: Apartment Do you presently have visiting nurse or other home services: No Alcohol intake: never Patient Tobacco Use Status: Current everyday Tobacco user Tobacco use type: Cigarette Cigarette Packs Per Day: 1 Cigarettes Per Day: 20.0 Years Smoked: 30 +/- Substance Use Type: Marijuana service: No Current occupational status: employed Physical Exam ED Vital Signs: BMI result Body Mass Index 49.1 Course Course Course Narrative: This is an RME: Additional HPI, ROS, PE not included below will be deferred to primary provider. RME assessment and note performed by: Marissa Malcolm PA-C This is a [id number], with a hx of IBS, diabetes, HTN, HLD, who presents to the ER with a complaint of RLQ pain x 1 day. Endorsing nausea, +vomiting 3 days ago. Had ablation 10 years ago. Perimenopausal. Plan: Labs, EKG, UA, US appendix Medical Decision Making Lab Data 03/16/24 19:51 03/16/24 19:51 Labs: Lab Results 03/16/24 Range/Units 19:51 WBC 11.4 H (4.8-10.8) X10*3/uL RBC 4.19 L (4.20-5.50) X10*6/uL Hgb 12.9 (12.0-16.0) g/dl Hct 38.2 (37.0-47.0) % MCV 91.2 (80.0-98.0) fL MCH 30.8 (27.0-33.0) pg MCHC 33.8 (31.0-35.0) g/dl RDW 13.4 (11.0-16.0) % Plt Count 252 (160-400) X10*3/uL MPV 9.8 (9.4-12.3) fL Immature Gran % (Auto) 0.3 (0.0-0.4) % Neut % (Auto) 61.1 (45-73) % Lymph % (Auto) 32.8 (20-40) % [place] % (Auto) 4.7 (2-11) % Eos % (Auto) 0.7 (0-4) % Baso % (Auto) 0.4 (0-2) % Lymph # (Auto) 3.7 (1.2-4.9) X10*3/uL [place] # (Auto) 0.5 (0.1-1.2) X10*3/uL Eos # (Auto) 0.1 (0.0-0.4) X10*3/uL Baso # (Auto) 0.0 (0.0-0.2) X10*3/uL Abs Immat Gran (auto) 0.03 (0.00-0.03) X10*3/uL Absolute Neuts (auto) 7.0 (2.0-8.3) x10*3/uL Absolute Nucleated RBC 0.000 (0.0-0.012) X10*3/uL Nucleated RBC % (auto) 0.0 (0.0-0.2) /100WBC Sodium 141 (135-145) mmol/L Potassium 4.1 (3.3-5.1) mmol/L Chloride 106 (96-108) mmol/L Carbon Dioxide 24 (22-29) mmol/L Anion Gap 15 (12-20) BUN 13 (9-16) mg/dL Creatinine 0.78 (0.5-1.4) mg/dL Estim Creat Clear Calc 130.6 Estimated GFR > 60 Random Glucose 121 H (60-115) mg/dL Calcium 9.9 (8.4-10.2) mg/dL Magnesium 1.9 (1.6-2.6) mg/dL Total Bilirubin 0.2 (0.0-1.0) mg/dL Direct Bilirubin < 0.2 (0.0-0.5) mg/dL AST 22 (5-31) U/L ALT 33 H (0-31) U/L Alkaline Phosphatase 63 (39-117) U/L Troponin I High Sens < 2.7 (<3.5-17.0) ng/L Total Protein 7.3 (6.5-8.0) g/dL Albumin 4.4 (3.5-5.0) g/dL Lipase 34 (8-78) U/L Beta HCG, Quant 4 mIU/mL Urine Color Yellow Urine Appearance Clear Urine pH 6.0 (5.0-9.0) Ur Specific [place] 1.015 (1.005-1.025) Urine Protein Negative (Neg-Trace) mg/dL Urine Glucose (UA) Negative (Negative) mg/dL Urine Ketones Negative (Negative) mg/dL Urine Blood Negative (Negative) Urine Nitrite Negative (Negative) Ur Leukocyte Esterase Negative (Negative) Medications Administered Discontinued Medications Generic Name Dose Route Start Last Admin Trade Name Karie PRN Reason Stop Dose Admin Ondansetron HCl 4 mg 03/16/24 19:00 03/16/24 21:49 Ondansetron Odt 4 Mg Tab.Rapdis TRANSLINGU 03/16/24 19:01 4 mg ONCE ONE Administration Discharge Plan Discharge Clinical Impression: Abdominal pain Patient Disposition: Home, Self-Care Instructions: Abdominal Pain (ED) Additional Instructions: Your abdominal pain cause is not clear likely from IBS Drink plenty of fluids CT scan negative for appendicitis Prescriptions: No Action Myrbetriq 50 mg tablet extended release 24 hr 50 mg PO DAILY clozapine 100 mg tablet 200 mg PO BEDTIME lisinopril 40 mg tablet 40 mg PO DAILY clonazepam 1 mg tablet 1 mg PO BID metformin 1,000 mg tablet 1,000 mg PO BIDWM metoprolol succinate 50 mg tablet extended release 24 hr 50 mg PO DAILY Januvia 50 mg tablet 50 mg PO DAILY ondansetron HCl 4 mg tablet 4 mg PO Q8H PRN (Reason: nausea and vomiting) Qty: 14 0RF albuterol sulfate [Proventil HFA] 90 mcg/actuation HFA aerosol inhaler 2 puff inhalation Q4-6H PRN (Reason: shortness of breath or wheezing) Qty: 6.7 0RF pantoprazole 40 mg tablet,delayed release (DR/EC) 40 mg PO BID@4196,6272 Interventions: ED Discharge Assessment Last Done: 03/17/24 00:16 Discharge Date/Time: 03/17/24 00:17 Print Language: Kazakh
[2024-03-16 19:02] VITALS: BP 155/97; PULSE 99; RESP 18; TEMP 36.4; O2SAT 94; BMI 49.1
--- NOTE | 2024-03-16 19:04 | ECG_ITS ---
Test Reason : CHEST PAIN Blood Pressure : / mmHG Vent. Rate : 093 BPM Atrial Rate : 093 BPM P-R Int : 180 ms QRS Dur : 082 ms QT Int : 350 ms P-R-T Axes : 031 012 057 degrees QTc Int : 435 ms Normal sinus rhythm Normal ECG When compared with ECG of 05-SEP-2023 17:06, No significant change was found Referred By: Marissa Malcolm Electronically Signed By:THERESA HUTSON
[2024-03-16 20:00] LABS: MANUAL DIFF FLAG NO
[2024-03-16 20:05] LABS: Basophils Percent Auto 0.4 % (0-2); Eosinophils Absolute Auto 0.1 X10*3/uL (0.0-0.4); Eosinophils Percent Auto 0.7 % (0-4); Hematocrit 38.2 % (37.0-47.0); Hemoglobin 12.9 g/dl (12.0-16.0); Imm Gran Abs Auto 0.03 X10*3/uL (0.00-0.03); Imm Gran Pct Auto 0.3 % (0.0-0.4); Lymphocytes Absolute Auto 3.7 X10*3/uL (1.2-4.9); Lymphocytes Percent Auto 32.8 % (20-40); Mean Corpuscular HGB Conc 33.8 g/dl (31.0-35.0); Mean Corpuscular Hemoglobin 30.8 pg (27.0-33.0); Mean Corpuscular Volume 91.2 fL (80.0-98.0); Mean Platelet Volume 9.8 fL (9.4-12.3); Monocytes Absolute Auto 0.5 X10*3/uL (0.1-1.2); Monocytes Percent Auto 4.7 % (2-11); Neutrophils Percent Auto 61.1 % (45-73); Platelet Count 252 X10*3/uL (160-400); Red Blood Count 4.19 X10*6/uL (4.20-5.50); Red Cell Distribution Width 13.4 % (11.0-16.0); White Blood Count 11.4 X10*3/uL (4.8-10.8)
[2024-03-16 20:12] LABS: Appearance Urine Clear; Color Urine Yellow; Glucose Urine UA Negative (Negative); Leukocyte Esterase Urine Negative (Negative); Nitrite Urine Negative (Negative); Specific Gravity - Urine 1.015 (1.005-1.025); Urine Blood Negative (Negative); Urine Ketones Negative (Negative); Urine Protein Negative (Neg-Trace)
[2024-03-16 20:23] LABS: Alanine Aminotransferase 33 U/L (0-31); Albumin Level 4.4 g/dL (3.5-5.0); Alkaline Phosphatase 63 U/L (39-117); Anion Gap 15 (12-20); Aspartate Amino Transferase 22 U/L (5-31); Bilirubin Direct < 0.2 mg/dL (0.0-0.5); Bilirubin Total 0.2 mg/dL (0.0-1.0); Blood Urea Nitrogen 13 mg/dL (9-16); Calcium 9.9 mg/dL (8.4-10.2); Carbon Dioxide 24 mmol/L (22-29); Chloride 106 mmol/L (96-108); Creatinine Clr Calc Pharmacy 130.6; Estimated Glomerular Filt Rate > 60; Glucose Random 121 mg/dL (60-115); HCG Quantitative 4 mIU/mL; Lipase 34 U/L (8-78); Magnesium 1.9 mg/dL (1.6-2.6); Potassium 4.1 mmol/L (3.3-5.1); Sodium 141 mmol/L (135-145); Total Protein 7.3 g/dL (6.5-8.0)
[2024-03-16 20:24] LABS: Troponin-I High Sensitivity < 2.7 ng/L (<3.5-17.0)
[2024-03-16 21:36] VITALS: BP 146/84; PULSE 90; RESP 17; TEMP 36.8; O2SAT 96
[2024-03-16] MEDS: Ondansetron ODT 4 MG TAB.RAPDIS TRANSLINGU (21:49)
--- NOTE | 2024-03-16 22:02 | ED.ABDPAIN ---
HPI - Abdominal Pain General Chief Complaint: Abdominal Pain Stated Complaint: abdominal pain, referred from UC Time Seen by Provider: 03/16/24 21:33 Source: patient Mode of arrival: ambulatory Limitations: no limitations History of Present Illness ED Provider: oscar BENAVIDEZ narrative: Patient with history of IBS with frequent abdominal pain comes here for right-sided pain started yesterday morning no nausea no vomiting no fever no urinary complaints no relation of the pain with food appetite been normal no constipation at this time Related Data Home Medications ?Medication ?Instructions ?Recorded ?Confirmed pantoprazole 40 mg tablet,delayed 40 mg PO BID@0630,1630 11/22/20 04/27/23 release clozapine 100 mg tablet 200 mg PO BEDTIME 11/13/21 04/27/23 lisinopril 40 mg tablet 40 mg PO DAILY 11/13/21 04/27/23 sitagliptin phosphate 50 mg tablet 50 mg PO DAILY 04/17/22 04/27/23 (Januvia) clonazepam 1 mg tablet 1 mg PO BID anxiety 07/03/22 04/27/23 metformin 1,000 mg tablet 1,000 mg PO BIDWM 07/03/22 04/27/23 metoprolol succinate 50 mg 50 mg PO DAILY 07/03/22 04/27/23 tablet,extended release 24 hr mirabegron 50 mg tablet,extended 50 mg PO DAILY 07/03/22 04/27/23 release 24 hr (Myrbetriq) cetirizine 10 mg tablet 10 mg PO DAILY 04/27/23 04/27/23 Previous Rx's ?Medication ?Instructions ?Recorded albuterol sulfate 90 mcg/actuation 2 puff inhalation Q4-6H PRN 05/01/23 aerosol inhaler (Proventil HFA) shortness of breath or wheezing #6.7 grams hyoscyamine sulfate 0.125 mg tablet 0.125 mg PO QID PRN dyspepsia #10 09/05/23 tabs loperamide 2 mg capsule 2 mg PO Q6H PRN loose stool #20 09/05/23 caps ondansetron HCl 4 mg tablet 4 mg PO Q8H PRN nausea and 09/05/23 vomiting #14 tabs tramadol 50 mg tablet 50 mg PO Q6H PRN severe pain 10/20/23 (scale score 7-10) #12 tabs Allergies Allergy/AdvReac Type Severity Reaction Status Date / Time Penicillins [PENICILLINS] Allergy Severe ANAPHYLAXIS Verified 03/16/24 19:04 adhesive [ADHESIVE] Allergy Unknown RASH Verified 03/16/24 19:02 artichoke [ARTICHOKE] Allergy Unknown RASH Verified 03/16/24 19:02 carbamazepine [From TEGRETOL] Allergy Unknown MIGRAINES Verified 03/16/24 19:02 cariprazine [From VRAYLAR] Allergy Unknown LEG CRAMPS Verified 03/16/24 19:02 fentanyl [FENTANYL] Allergy Unknown RASH Verified 03/16/24 19:02 lamotrigine [From LAMICTAL] Allergy Unknown RASH Verified 03/16/24 19:02 lithium [LITHIUM] AdvReac Severe tremor and Verified 03/16/24 19:02 falls dicyclomine AdvReac Hallucinati Verified 03/16/24 19:02 ons Review of Systems Review of Systems Yes all other systems are reviewed and are negative PMFSH Past Medical History Medical History Diabetes Thrombosed external hemorrhoid Morbid obesity with BMI of 45.0-49.9, adult Depression Anxiety Renal colic Migraines PCOS (polycystic ovarian syndrome) Pre-diabetes Hypertension High cholesterol GERD (gastroesophageal reflux disease) Obstructive sleep apnea Bipolar disease, chronic Surgical History History of cholecystectomy History of dilation and curettage Family History Family History Father Coronary artery disease Other Breast cancer Social History Social History Household Members: Spouse and Children Housing: Apartment Do you presently have visiting nurse or other home services: No Alcohol intake: never Patient Tobacco Use Status: Current everyday Tobacco user Tobacco use type: Cigarette Cigarette Packs Per Day: 1 Cigarettes Per Day: 20.0 Years Smoked: 30 +/- Smoked in Last 30 Days: No Use of substances other than those prescribed or required for medical reasons: No Substance Use Type: Marijuana Advance Directives: No Advance Directives Information Provided: No Do you have a plan to hurt others: No Plan Patient : No service: No Current occupational status: employed Physical Exam ED Vital Signs: Vital Signs - 24 hr 03/16/24 19:02 03/16/24 21:36 Temperature 97.5 F 98.2 F Pulse Rate 99 90 Respiratory Rate 18 17 Blood Pressure 155/97 H 146/84 H Pulse Oximetry 94 96 Oxygen Delivery Method Room Air Room Air BMI result Body Mass Index 49.1 Appearance: Alert. Oriented X3. No acute distress. Eyes: No pallor or icterus ENT: Pharynx normal. Oral Mucosa moist Neck: Normal inspection. Neck supple. CVS: Normal heart rate and rhythm. Pulses normal. Respiratory: No respiratory distress. Equal air entry bilateral, Abdomen: Soft and deep tenderness right lower abdomen no guarding or rebound tenderness Bowel sounds are present, no mass palpable, no CVA tenderness Skin: Skin warm and dry. Normal skin color. Normal skin turgor. Extremities: No lower extremity edema. No calf tenderness Neuro: Oriented X 3. Medical Decision Making Medical Decision Making [facility] Narrative: Patient nonspecific pain is at lower abdomen CT scan negative for appendicitis patient is status post cholecystectomy labs are stable discharge patient advised to continue her medication Differential Diagnosis Differential Diagnoses: The differential diagnosis associated with the presentation includes Acute appendicitis/IBS/diverticulitis/UTI Admission/Observation Consideration of admission/observation: Escalation of care including admission/observation considered Lab Data [facility] Lab Attestation statement: I reviewed the patient's lab results. 03/16/24 19:51 03/16/24 19:51 Labs: Lab Results 03/16/24 Range/Units 19:51 WBC 11.4 H (4.8-10.8) X10*3/uL RBC 4.19 L (4.20-5.50) X10*6/uL Hgb 12.9 (12.0-16.0) g/dl Hct 38.2 (37.0-47.0) % MCV 91.2 (80.0-98.0) fL MCH 30.8 (27.0-33.0) pg MCHC 33.8 (31.0-35.0) g/dl RDW 13.4 (11.0-16.0) % Plt Count 252 (160-400) X10*3/uL MPV 9.8 (9.4-12.3) fL Immature Gran % (Auto) 0.3 (0.0-0.4) % Neut % (Auto) 61.1 (45-73) % Lymph % (Auto) 32.8 (20-40) % [place] % (Auto) 4.7 (2-11) % Eos % (Auto) 0.7 (0-4) % Baso % (Auto) 0.4 (0-2) % Lymph # (Auto) 3.7 (1.2-4.9) X10*3/uL [place] # (Auto) 0.5 (0.1-1.2) X10*3/uL Eos # (Auto) 0.1 (0.0-0.4) X10*3/uL Baso # (Auto) 0.0 (0.0-0.2) X10*3/uL Abs Immat Gran (auto) 0.03 (0.00-0.03) X10*3/uL Absolute Neuts (auto) 7.0 (2.0-8.3) x10*3/uL Absolute Nucleated RBC 0.000 (0.0-0.012) X10*3/uL Nucleated RBC % (auto) 0.0 (0.0-0.2) /100WBC Sodium 141 (135-145) mmol/L Potassium 4.1 (3.3-5.1) mmol/L Chloride 106 (96-108) mmol/L Carbon Dioxide 24 (22-29) mmol/L Anion Gap 15 (12-20) BUN 13 (9-16) mg/dL Creatinine 0.78 (0.5-1.4) mg/dL Estim Creat Clear Calc 130.6 Estimated GFR > 60 Random Glucose 121 H (60-115) mg/dL Calcium 9.9 (8.4-10.2) mg/dL Magnesium 1.9 (1.6-2.6) mg/dL Total Bilirubin 0.2 (0.0-1.0) mg/dL Direct Bilirubin < 0.2 (0.0-0.5) mg/dL AST 22 (5-31) U/L ALT 33 H (0-31) U/L Alkaline Phosphatase 63 (39-117) U/L Troponin I High Sens < 2.7 (<3.5-17.0) ng/L Total Protein 7.3 (6.5-8.0) g/dL Albumin 4.4 (3.5-5.0) g/dL Lipase 34 (8-78) U/L Beta HCG, Quant 4 mIU/mL Urine Color Yellow Urine Appearance Clear Urine pH 6.0 (5.0-9.0) Ur Specific [place] 1.015 (1.005-1.025) Urine Protein Negative (Neg-Trace) mg/dL Urine Glucose (UA) Negative (Negative) mg/dL Urine Ketones Negative (Negative) mg/dL Urine Blood Negative (Negative) Urine Nitrite Negative (Negative) Ur Leukocyte Esterase Negative (Negative) Independent Interpretation I performed an independent interpretation of an: Ultrasound and CT Scan Radiology Impression Discussion of test interpretation with radiology: I have reviewed the radiologist's reading. Medications Administered Discontinued Medications Generic Name Dose Route Start Last Admin Trade Name Freq PRN Reason Stop Dose Admin Ondansetron HCl 4 mg 03/16/24 19:00 03/16/24 21:49 Ondansetron Odt 4 Mg Tab.Rapdis TRANSLINGU 03/16/24 19:01 4 mg ONCE ONE Administration Discharge Plan Discharge Clinical Impression: Abdominal pain Patient Disposition: Home, Self-Care Instructions: Abdominal Pain (ED) Additional Instructions: Your abdominal pain cause is not clear likely from IBS Drink plenty of fluids CT scan negative for appendicitis Prescriptions: No Action Myrbetriq 50 mg tablet extended release 24 hr 50 mg PO DAILY clozapine 100 mg tablet 200 mg PO BEDTIME lisinopril 40 mg tablet 40 mg PO DAILY clonazepam 1 mg tablet 1 mg PO BID metformin 1,000 mg tablet 1,000 mg PO BIDWM metoprolol succinate 50 mg tablet extended release 24 hr 50 mg PO DAILY Januvia 50 mg tablet 50 mg PO DAILY cetirizine 10 mg tablet 10 mg PO DAILY hyoscyamine sulfate 0.125 mg tablet 0.125 mg PO QID PRN (Reason: dyspepsia) Qty: 10 0RF loperamide 2 mg capsule 2 mg PO Q6H PRN (Reason: loose stool) Qty: 20 0RF ondansetron HCl 4 mg tablet 4 mg PO Q8H PRN (Reason: nausea and vomiting) Qty: 14 0RF tramadol 50 mg tablet 50 mg PO Q6H PRN (Reason: severe pain (scale score 7-10)) Qty: 12 0RF albuterol sulfate [Proventil HFA] 90 mcg/actuation HFA aerosol inhaler 2 puff inhalation Q4-6H PRN (Reason: shortness of breath or wheezing) Qty: 6.7 0RF pantoprazole 40 mg tablet,delayed release (DR/EC) 40 mg PO BID@9065,1505 Print Language: Syrian
[2024-03-17 00:16] VITALS: BP 136/78; PULSE 84; RESP 18; TEMP 36.8; O2SAT 97
== END 2024-03-17 00:17 | disposition home or self-care (01) ==
PROVIDERS: Physician Assistant Medical; Emergency Provider Internal Medicine; PCP Internal Medicine
DX: R10.9 Unspecified abdominal pain (principal); R10.2 Pelvic and perineal pain; R07.89 Other chest pain; F17.210 Nicotine dependence, cigarettes, uncomplicated; Z79.899 Other long term (current) drug therapy
CPT/HCPCS: 36415; 74176; 76705; 80048; 80076; 81003; 83690; 83735; 84484; 84702; 85025; 93005; 99284

== ENCOUNTER → 2024-03-16 19:04 | Outpatient (BNV) | payer BC, MEDICARE, SELFPAY | PROVIDERS: Emergency Provider Internal Medicine; PCP Internal Medicine; Visit Provider Internal Medicine | DX: R07.9 Chest pain, unspecified (principal) | CPT/HCPCS: 93010 ==

== ENCOUNTER 2024-03-17 10:07 | Outpatient (AMB) | payer BC, MEDICARE, MEDICAID, SELFPAY ==
[2024-03-17 10:10] VITALS: BP 142/80; PULSE 94; BMI 48.3
--- NOTE | 2024-03-17 10:10 | MHC.OFFVIS ---
Vital Signs 03/17/24 10:10 Height 5 ft 7 in Weight 308 lb 10.354 oz BMI 48.3 BP 142/80 H Blood Pressure Location Lt brachial Position Sitting Pulse 94 Pulse Source Monitor Intake Visit Reasons: 1 yr f/up HS Glaciologist Required: No Allergies Penicillins [PENICILLINS] Allergy (Severe, Verified 03/17/24 10:13) ANAPHYLAXIS adhesive [ADHESIVE] Allergy (Unknown, Verified 03/17/24 10:13) RASH artichoke [ARTICHOKE] Allergy (Unknown, Verified 03/17/24 10:13) RASH carbamazepine [From TEGRETOL] Allergy (Unknown, Verified 03/17/24 10:13) MIGRAINES cariprazine [From VRAYLAR] Allergy (Unknown, Verified 03/17/24 10:13) LEG CRAMPS fentanyl [FENTANYL] Allergy (Unknown, Verified 03/17/24 10:13) RASH lamotrigine [From LAMICTAL] Allergy (Unknown, Verified 03/17/24 10:13) RASH lithium [LITHIUM] Adverse Reaction (Severe, Verified 03/17/24 10:13) tremor and falls dicyclomine Adverse Reaction (Verified 03/17/24 10:13) Hallucinations Medication List - Last Reconciled 03/17/24 by Swati Zamarripa NP-C albuterol sulfate 90 mcg/actuation (Proventil HFA) 2 puffs inhalation Q4-6H PRN clonazepam 1 mg PO BID clozapine 200 mg PO BEDTIME lisinopril 40 mg PO DAILY metformin 1,000 mg PO BIDWM metoprolol succinate ER 50 mg PO DAILY mirabegron ER (Myrbetriq) 50 mg PO DAILY ondansetron HCl 4 mg PO Q8H PRN pantoprazole 40 mg PO BID@0630,1630 sitagliptin phosphate (Januvia) 50 mg PO DAILY HPI HPI 1 yr f/up HS: Details: Felicia is a 48-year-old female with past medical history morbid obesity, hypertension, sleep apnea with CPAP use, smoking who was previously evaluated for heart palpitations and presyncope and now presents for follow-up. Today she reports that she has done generally well over the last year without any lightheadedness, presyncope, syncope. She will feel occasional heart palpitations lasting seconds and resolving. She has had no sustained rapid or irregular rates. She states that last week she was at a concert 2 nights in a row she was dancing and developed a sharp pressure in her left upper chest. She did not have tenderness to that area. She tried to ignore this symptom and did not want to seek medical attention at that time. She has not had any recurrent chest discomfort since then. She has not had chest discomfort at any other time. No shortness of breath, PND, orthopnea or edema. She reports being mostly sedentary. Tolerates normal ADLs. Takes meds as directed. [facility] Medical History (Updated 03/17/24 @ 12:19 by Swati Zamarirpa, ELISABETH-C) Hypertension Diabetes Thrombosed external hemorrhoid Morbid obesity with BMI of 45.0-49.9, adult Depression Anxiety Renal colic Migraines PCOS (polycystic ovarian syndrome) Pre-diabetes High cholesterol GERD (gastroesophageal reflux disease) Obstructive sleep apnea Bipolar disease, chronic Surgical History History of cholecystectomy History of dilation and curettage Family History Father Coronary artery disease Other Breast cancer Social History Household Members: Spouse and Children Housing: Apartment Do you presently have visiting nurse or other home services: No Alcohol intake: never Patient Tobacco Use Status: Current everyday Tobacco user Tobacco use type: Cigarette Cigarette Packs Per Day: 1 Cigarettes Per Day: 20.0 Years Smoked: 30 +/- Substance Use Type: Marijuana service: No Current occupational status: employed Review of Systems Const All systems reviewed & are unremarkable except as noted in HPI and below ENT Denies dizziness Card Details: palpitation Reports chest pain, Denies chest pain at rest, Reports chest pain with activity, Denies rapid heart rate, Denies pedal edema, Denies edema, Denies leg edema, Denies lightheadedness, Denies palpitations, Denies dyspnea, Denies dyspnea on exertion and Denies orthopnea Resp Denies cough, Denies dyspnea and Denies dyspnea on exertion GI Denies hematochezia and Denies change in stool character Musc Denies abnormal gait, Reports limited range of motion, Reports muscle cramps, Denies muscle weakness, Denies numbness, Denies radiating pain into limb, Denies stiffness and Denies tingling Neuro Denies abnormal gait, Denies dizziness, Denies numbness and Denies tingling Endo Denies palpitations Physical Exam Vital Signs: Last Vital Signs Pulse 94 03/17/24 10:10 BP 142/80 H 03/17/24 10:10 BMI result Body Mass Index 48.3 Const General: cooperative, healthy appearing, comfortable and no acute distress Orientation/consciousness: patient oriented x3 Neck Neck: Yes normal visual inspection and Yes no JVD Resp Effort & Inspection: normal respiratory effort Auscultation: clear to auscultation bilaterally, no crackles, no rales, no rhonchi and no wheezes Cardio Jugular venous distension: no JVD Rate: regular rate Rhythm: regular rhythm Heart sounds: S1 normal heart sound present, S2 normal heart sound present, no murmurs and no rubs Neuro General: patient oriented x3 Extrem General: Yes normal to inspection and No no pedal edema Psych Appearance: grossly normal Mental Status: mental status grossly normal Speech and movement: Normal speech and movement present Office Procedures EKG Details: Today, read by me, normal sinus rhythm, no acute ST or T-wave abnormalities, rate 94, QTC 445 milliseconds [id number], Complete Assessment & Plan Assessment & Plan (1) Chest discomfort: Code(s): R07.89 - Other chest pain Category: Medical Plan: Report of a sharp pressure in her left chest region that occurred on 2 separate days last week when at concerts and dancing. Symptom resolved with rest. It was not reproducible with palpation. She has not had any recurrent symptoms since that time or prior to that time. She does have cardiac risk factors of morbid obesity, hypertension, smoking. Last echocardiogram was done 06/06/2022 showing EF 60-65%, no valve abnormalities. An EKG done today showed normal sinus rhythm with no acute ST or T-wave abnormalities, rate 94. Will check an exercise stress test to evaluate for ischemia. Benefits of smoking cessation was reviewed. Signs and symptoms of angina discussed. Cardiology follow-up can be as needed unless stress test shows abnormalities. She is agreeable to this plan. Emergency care if ever needed for recurrent chest discomfort. (2) Palpitation: Code(s): R00.2 - Palpitations Category: Medical Plan: Report of heart palpitations which feels like quick flip in her chest. No sustained rapid or irregular rates. EKG done today showing sinus rhythm with normal RI, QRS and QTC intervals. A Holter monitor was done 06/22/2022 for 3 days showing sinus rhythm with average heart rate 88, very rare ectopy. A cardiac event monitor was done 07/11/2022 showing sinus rhythm and sinus tachycardia, PACs and PVCs. Her symptoms correlated with sinus rhythm, sinus tach as well as ectopy. No further testing needed at this time for this problem. Continue on metoprolol. (3) Near syncope: Code(s): R55 - Syncope and collapse Category: Medical Plan: No recurrent episodes. (4) Hypertension: Code(s): I10 - Essential (primary) hypertension Category: Medical Plan: Blood pressure initially elevated at this visit, 142/80. Recheck done by me 128/88. She continues on lisinopril and metoprolol. Can be followed by her PCP. Orders: Orders CA stress test Today R07.89 - Other chest pain Coding Level of Care Code Est Pt Level 3 (69819) Diagnoses Chest discomfort R07.89 Palpitation R00.2 Near syncope R55 Hypertension I10 CPT Codes EKG - CPT: 70599-[id number], Complete ([id number]) Time Spent (min) 24
== END 2024-03-17 10:59 | disposition home or self-care (01) ==
PROVIDERS: PCP Internal Medicine; Visit Provider Nurse Practitioner Family
DX: R07.89 Other chest pain (principal); R00.2 Palpitations; R55 Syncope and collapse; I10 Essential (primary) hypertension
CPT/HCPCS: 93010; 99213

== ENCOUNTER → 2024-03-17 10:07 | Outpatient (BNVA) | payer BC, MEDICARE, MEDICAID, SELFPAY | PROVIDERS: PCP Internal Medicine; Visit Provider Nurse Practitioner Family | DX: R07.89 Other chest pain (principal); R00.2 Palpitations; R55 Syncope and collapse; I10 Essential (primary) hypertension; Z79.899 Other long term (current) drug therapy | CPT/HCPCS: 93005 ==

== ENCOUNTER → 2024-03-24 08:01 | Outpatient (REF) | payer BC, SELFPAY ==
--- NOTE | 2024-03-24 08:04 | CA_ITS ---
Acquisition Time: 2024-03-24 08:12:53 Total Exercise Time: 00:01:38 Test Indications: Syncope Medications: ALBUTEROL METOPROLOL LISINOPRIL PANTOPRAZOLE MYBRETREQ Protocol: WILLIAM Max HR: 116 BPM 67% of Pred: 172 BPM Max BP: 160/050 mmHG Max Work Load: 3.9 METS Exercise stress test exercise 1 min 38 sec of William protocol achieving 66% MPHR, with moderate to severe shortness of breath, no chest pains, without arrhythmias, with normotensive response to exercise, without EKG changes at achieved workload. Breathing returned to baseline with rest. Test reviewed with Dr. Galeano. Referred By: Swati Zamarripa Overread By: Kimberlyn Leigh
== END ==
LOC: HO.CARD 08:01
PROVIDERS: PCP Internal Medicine; Visit Provider Nurse Practitioner Family
DX: R07.89 Other chest pain (principal)
CPT/HCPCS: 93017

== ENCOUNTER → 2024-03-24 08:04 | Outpatient (BNV) | payer BC, SELFPAY | PROVIDERS: PCP Internal Medicine; Visit Provider Nurse Practitioner | DX: R06.02 Shortness of breath (principal) | CPT/HCPCS: 93016; 93018 ==

== ENCOUNTER 2024-04-07 12:24 | Emergency (ER) | payer BC, OTHER, SELFPAY ==
[2024-04-07 12:36] VITALS: BP 138/87; PULSE 88; RESP 16; TEMP 36.4; O2SAT 94; BMI 49.3
--- NOTE | 2024-04-07 13:23 | ED_ITS ---
HPI - Psych General Chief Complaint: Psychiatric Symptoms Stated Complaint: crisis Time Seen by Provider: 04/07/24 12:40 Source: patient Mode of arrival: ambulatory Limitations: no limitations History of Present Illness ED Provider: Hilario BENAVIDEZ Narrative: Patient is a 48-year-old female with history of hypertension, DM, depression, anxiety, PCOS, migraines, GERD, bipolar disorder, JILLIAN presenting to the emergency department with complaint of depression, feelings of hopelessness and vague suicidal ideation. She reports that since February she has been feeling increasingly depressed, feeling that she is cycling between this and feeling manic. Reports that at times she goes gambling for instant gratification to cope with her anxiety. Has attempted other methods of coping with anxiety that she has learned in the past but states nothing is helping. Has spoken with her therapist and psychiatrist regarding these feelings and states that she was told she is on maximum doses of all anxiety medications. She denies current plan of how she would harm herself. She reports multiple recent stressors including arguing with her as well as feeling helpless due to her daughter going through a divorce but she lives in [place] so patient is unable to support her. MD complaint: suicidal ideation, feels depressed and anxiety Onset (ago): week(s) Duration: getting worse History of same: Yes Relieving factors: none Context: significant life stressor Associated psychiatric symptoms: depression and suicidal ideation Associated symptoms: denies other symptoms Treatments prior to arrival: none If self harm: admits thoughts of self harm Related Data Home Medications ?Medication ?Instructions ?Recorded ?Confirmed pantoprazole 40 mg tablet,delayed 40 mg PO BID@0630,1630 11/22/20 04/07/24 release clozapine 100 mg tablet 200 mg PO BEDTIME 11/13/21 04/07/24 lisinopril 40 mg tablet 40 mg PO DAILY 11/13/21 04/07/24 sitagliptin phosphate 50 mg tablet 50 mg PO DAILY 04/17/22 04/07/24 (Januvia) clonazepam 1 mg tablet 1 mg PO BID anxiety 07/03/22 04/07/24 metformin 1,000 mg tablet 1,000 mg PO BIDWM 07/03/22 04/07/24 metoprolol succinate 50 mg 50 mg PO DAILY 07/03/22 04/07/24 tablet,extended release 24 hr mirabegron 50 mg tablet,extended 50 mg PO DAILY 07/03/22 04/07/24 release 24 hr (Myrbetriq) Previous Rx's ?Medication ?Instructions ?Recorded albuterol sulfate 90 mcg/actuation 2 puff inhalation Q4-6H PRN 05/01/23 aerosol inhaler (Proventil HFA) shortness of breath or wheezing #6.7 grams ondansetron HCl 4 mg tablet 4 mg PO Q8H PRN nausea and 09/05/23 vomiting #14 tabs Allergies Allergy/AdvReac Type Severity Reaction Status Date / Time Penicillins [PENICILLINS] Allergy Severe ANAPHYLAXIS Verified 04/07/24 12:37 adhesive [ADHESIVE] Allergy Unknown RASH Verified 04/07/24 12:37 artichoke [ARTICHOKE] Allergy Unknown RASH Verified 04/07/24 12:37 carbamazepine [From TEGRETOL] Allergy Unknown MIGRAINES Verified 04/07/24 12:37 cariprazine [From VRAYLAR] Allergy Unknown LEG CRAMPS Verified 04/07/24 12:37 fentanyl [FENTANYL] Allergy Unknown RASH Verified 04/07/24 12:37 lamotrigine [From LAMICTAL] Allergy Unknown RASH Verified 04/07/24 12:37 lithium [LITHIUM] AdvReac Severe tremor and Verified 04/07/24 12:37 falls dicyclomine AdvReac Hallucinati Verified 04/07/24 12:37 ons Review of Systems 2 Review of Systems: As per HPI. Yes all other systems are reviewed and are negative Constitutional: Constitutional: Reports as per HPI [facility] Past Medical History Medical History (Updated 04/07/24 @ 14:54 by Radha Rich NP) Hypertension Diabetes Thrombosed external hemorrhoid Morbid obesity with BMI of 45.0-49.9, adult Depression Anxiety Renal colic Migraines PCOS (polycystic ovarian syndrome) Pre-diabetes High cholesterol GERD (gastroesophageal reflux disease) Obstructive sleep apnea Bipolar disease, chronic Surgical History History of cholecystectomy History of dilation and curettage Family History Family History Father Coronary artery disease Other Breast cancer Social History Social History Household Members: Spouse and Children Housing: Apartment Do you presently have visiting nurse or other home services: No Alcohol intake: current Alcohol intake frequency: a few times a week Alcohol type: hard liquor Patient Tobacco Use Status: Current everyday Tobacco user Tobacco use type: Cigarette Cigarette Packs Per Day: 1 Cigarettes Per Day: 20.0 Years Smoked: 30 +/- Smoked in Last 30 Days: Yes Use of substances other than those prescribed or required for medical reasons: Yes Substance Use Type: Marijuana Substance Use Frequency: Weekly Last Used Substance: Days (ago) Advance Directives: No Advance Directives Information Provided: No Do you have a plan to hurt others: No Plan service: No Current occupational status: employed Physical Exam 2 Vital Signs: Vital Signs: Last Vital Signs Temp 97.5 F 04/07/24 12:36 Pulse 88 04/07/24 12:36 Resp 16 04/07/24 12:36 BP 138/87 04/07/24 12:36 Pulse Ox 94 04/07/24 12:36 O2 Del Method Room Air 04/07/24 12:36 BMI result Body Mass Index 49.3 Vital signs have been reviewed and appear to be correct. Blood pressure normal. Heart rate normal. Respiratory rate normal. Temperature normal. Oxygen saturation normal. Const: General: cooperative and no acute distress O rientation/consciousness: oriented to person, oriented to place, oriented to time and patient oriented x3 Limitations: no limitations HEENT: Head: Yes normocephalic and Yes atraumatic Ears: external ears normal General nose exam: Normal external nose present Face and sinus: Yes face symmetric Mouth: oropharynx normal and moist mucous membranes T hroat: Yes uvula midline Eyes: Pupils: Equal, round and reactive pupils present Neck: Neck: Yes normal visual inspection and Yes supple Resp: Effort & Inspection: normal respiratory effort and able to speak in complete sentences Auscultation: clear to auscultation bilaterally Cardio: Rate: regular rate Rhythm: regular rhythm Heart sounds: S1 normal heart sound present and S2 normal heart sound present GI: Palpation (GI): Soft to palpation and nontender Auscultation: n ormoactive bowel sounds : General: Yes no CVA tenderness Back/Spine/Pelvis: Back: no CVA tenderness Skin: General skin exam: elasticity normal and turgor normal Neuro: General: oriented to person, oriented to place, oriented to time, patient oriented x3, moves all extremities, no focal motor deficits and CN's II- XI intact bilaterally Cranial nerves: Yes Equal, round and reactive pupils present Cognition (Neuro): normal cognition Extrem: General: Yes full ROM, Yes no pedal edema and Yes no calf tenderness Psych: Mental Status: mental status grossly normal Speech and movement: N ormal speech and movement present Affect: Sad affect present Attitude: c ooperative Thought process: Normal thought process present Thought content: Suicidality present, no homicidality, no hallucinations and Depressive thoughts present Insight: Fair insight present (Psych) Judgement: Fair judgement present (Psych) Medical Decision Making Medical Decision Making MDM Narrative: Patient is a 48-year-old female with history of hypertension, DM, depression, anxiety, PCOS, migraines, GERD, bipolar disorder, JILLIAN presenting to the emergency department with complaint of depression, feelings of hopelessness and vague suicidal ideation. On exam patient is awake, A+Ox3, VS WNL, afebrile, normal neurological exam without focal deficits, physical exam findings as above. Given reported symptoms and physical exam findings, initial differential includes anxiety, depression, bipolar disorder, suicidal ideation. Labs unremarkable. Urinalysis is without evidence of infection. Urine drug screen negative, ethanol negative. Will medically clear patient at this time and place on physician observation pending care team evaluation. Differential Diagnosis Differential Diagnoses: The differential diagnosis associated with the presentation includes As Per [facility]. Admission/Observation Consideration of admission/observation: Escalation of care including admission/observation considered Consult Healthcare Provider Management of the patient was discussed with: Behavioral Health Provider Lab Data [facility] Lab Attestation statement: I reviewed the patient's lab results. As per [facility] 04/07/24 14:22 04/07/24 14:22 Labs: Lab Results 04/07/24 04/07/24 Range/Units 14:04 14:22 WBC 9.8 (4.8-10.8) X10*3/uL RBC 4.36 (4.20-5.50) X10*6/uL Hgb 13.3 (12.0-16.0) g/dl Hct 39.6 (37.0-47.0) % MCV 90.8 (80.0-98.0) fL MCH 30.5 (27.0-33.0) pg MCHC 33.6 (31.0-35.0) g/dl RDW 13.2 (11.0-16.0) % Plt Count 255 (160-400) X10*3/uL MPV 9.5 (9.4-12.3) fL Immature Gran % (Auto) 0.4 (0.0-0.4) % Neut % (Auto) 61.4 (45-73) % Lymph % (Auto) 32.7 (20-40) % [place] % (Auto) 4.5 (2-11) % Eos % (Auto) 0.5 (0-4) % Baso % (Auto) 0.5 (0-2) % Lymph # (Auto) 3.2 (1.2-4.9) X10*3/uL [place] # (Auto) 0.4 (0.1-1.2) X10*3/uL Eos # (Auto) 0.1 (0.0-0.4) X10*3/uL Baso # (Auto) 0.1 (0.0-0.2) X10*3/uL Abs Immat Gran (auto) 0.04 H (0.00-0.03) X10*3/uL Absolute Neuts (auto) 6.0 (2.0-8.3) x10*3/uL Absolute Nucleated RBC 0.000 (0.0-0.012) X10*3/uL Nucleated RBC % (auto) 0.0 (0.0-0.2) /100WBC Urine Color Yellow Urine Appearance Clear Urine pH 7.0 (5.0-9.0) Ur Specific [place] <= 1.005 (1.005-1.025) Urine Protein Negative (Neg-Trace) mg/dL Urine Glucose (UA) Negative (Negative) mg/dL Urine Ketones Negative (Negative) mg/dL Urine Blood Negative (Negative) Urine Nitrite Negative (Negative) Ur Leukocyte Esterase Negative (Negative) Urine RBC 0-2 (0-2) /HPF Urine WBC 0-5 (0-5) /HPF Ur Squamous Epith Cells 0-2 (0-2) /HPF Urine Bacteria None Seen (None Seen) Hyaline Casts 0-2 (0-2) /LPF Urine Opiates Screen Not Detected (Not Detect) Ur Buprenorphine Scrn Not Detected (Not Detect) ng/mL Ur Oxycodone Screen Not Detected (Not Detect) ng/mL Urine Methadone Screen Not Detected (Not Detect) ng/mL Urine Fentanyl Screen Not Detected (Not Detect) Ur Barbiturates Screen Not Detected (Not Detect) Ur Phencyclidine Scrn Not Detected (Not Detect) Ur Amphetamines Screen Not Detected (Not Detect) U Benzodiazepines Scrn Not Detected (Not Detect) Urine Cocaine Screen Not Detected (Not Detect) U Marijuana (THC) Screen Not Detected (Not Detect) External Record Review External record reviewed: Inpatient record, Office record and Outpatient record Discharge Plan Discharge Clinical Impression: Bipolar disorder, Suicidal ideation, Depression Patient Disposition: Still a Patient Prescriptions: No Action Myrbetriq 50 mg tablet extended release 24 hr 50 mg PO DAILY clozapine 100 mg tablet 200 mg PO BEDTIME lisinopril 40 mg tablet 40 mg PO DAILY clonazepam 1 mg tablet 1 mg PO BID metformin 1,000 mg tablet 1,000 mg PO BIDWM metoprolol succinate 50 mg tablet extended release 24 hr 50 mg PO DAILY Januvia 50 mg tablet 50 mg PO DAILY ondansetron HCl 4 mg tablet 4 mg PO Q8H PRN (Reason: nausea and vomiting) Qty: 14 0RF Patient Comments: PRN med albuterol sulfate [Proventil HFA] 90 mcg/actuation HFA aerosol inhaler 2 puff inhalation Q4-6H PRN (Reason: shortness of breath or wheezing) Qty: 6.7 0RF pantoprazole 40 mg tablet,delayed release (DR/EC) 40 mg PO BID@0630,1630 Interventions: [place]-Suicide Risk Severity Scale Last Done: 04/07/24 13:34 Print Language: Kosovan
[2024-04-07 14:12] LABS: Appearance Urine Clear; Color Urine Yellow; Glucose Urine UA Negative (Negative); Leukocyte Esterase Urine Negative (Negative); Nitrite Urine Negative (Negative); Specific Gravity - Urine <= 1.005 (1.005-1.025); Urine Blood Negative (Negative); Urine Ketones Negative (Negative); Urine Protein Negative (Neg-Trace)
[2024-04-07 14:17] LABS: Bacteria Urine None Seen (None Seen); Hyaline Casts Urine 0-2 /LPF (0-2); RBC Urine 0-2 /HPF (0-2); Squamous Epithelial Cell Urine 0-2 /HPF (0-2); WBC Urine 0-5 /HPF (0-5)
[2024-04-07 14:26] LABS: MANUAL DIFF FLAG NO
[2024-04-07 14:30] LABS: Amphetamine Screen Urine Not Detected (Not Detect); Barbiturates, Urine Not Detected (Not Detect); Benzodiazepines Screen Urine Not Detected (Not Detect); Buprenorphine Scr Not Detected (Not Detect); Cannabinoid Screen Urine Not Detected (Not Detect); Cocaine Screen Urine Not Detected (Not Detect); Fentanyl, urine Not Detected (Not Detect); Methadone Screen, Urine Not Detected (Not Detect); Opiate Screen Urine Not Detected (Not Detect); Oxycodone Screen Urine Not Detected (Not Detect); Phencyclidine Screen Urine Not Detected (Not Detect)
[2024-04-07 14:31] LABS: Basophils Absolute Auto 0.1 X10*3/uL (0.0-0.2); Basophils Percent Auto 0.5 % (0-2); Eosinophils Absolute Auto 0.1 X10*3/uL (0.0-0.4); Eosinophils Percent Auto 0.5 % (0-4); Hematocrit 39.6 % (37.0-47.0); Hemoglobin 13.3 g/dl (12.0-16.0); Imm Gran Abs Auto 0.04 X10*3/uL (0.00-0.03); Imm Gran Pct Auto 0.4 % (0.0-0.4); Lymphocytes Absolute Auto 3.2 X10*3/uL (1.2-4.9); Lymphocytes Percent Auto 32.7 % (20-40); Mean Corpuscular HGB Conc 33.6 g/dl (31.0-35.0); Mean Corpuscular Hemoglobin 30.5 pg (27.0-33.0); Mean Corpuscular Volume 90.8 fL (80.0-98.0); Mean Platelet Volume 9.5 fL (9.4-12.3); Monocytes Absolute Auto 0.4 X10*3/uL (0.1-1.2); Monocytes Percent Auto 4.5 % (2-11); Neutrophils Percent Auto 61.4 % (45-73); Platelet Count 255 X10*3/uL (160-400); Red Blood Count 4.36 X10*6/uL (4.20-5.50); Red Cell Distribution Width 13.2 % (11.0-16.0); White Blood Count 9.8 X10*3/uL (4.8-10.8)
[2024-04-07 14:46] LABS: Alanine Aminotransferase 25 U/L (0-31); Albumin Level 4.2 g/dL (3.5-5.0); Alkaline Phosphatase 65 U/L (39-117); Anion Gap 14 (12-20); Aspartate Amino Transferase 17 U/L (5-31); Bilirubin Total 0.3 mg/dL (0.0-1.0); Blood Urea Nitrogen 8 mg/dL (9-16); Calcium 9.6 mg/dL (8.4-10.2); Carbon Dioxide 27 mmol/L (22-29); Chloride 105 mmol/L (96-108); Creatinine Clr Calc Pharmacy 127.8; Estimated Glomerular Filt Rate > 60; Ethanol < 10 mg/dL; Glucose Random 120 mg/dL (60-115); Potassium 3.9 mmol/L (3.3-5.1); Sodium 142 mmol/L (135-145); Total Protein 7.2 g/dL (6.5-8.0)
[2024-04-07 15:39] LABS: Influenza A PCR NEGATIVE (Negative); Influenza B PCR NEGATIVE (Negative); Resp Syncy Virus RNA Qual PCR NEGATIVE (Negative); SARS COV2 PCR INHOUSE NEGATIVE (Negative)
[2024-04-07 18:14] VITALS: BP 138/87; PULSE 80; RESP 12; TEMP 36.4; O2SAT 98
--- NOTE | 2024-04-07 18:48 | MHC.CARE ---
Pt has been referred to [facility]. She will await placement from home
== END 2024-04-07 18:15 | disposition home or self-care (01) ==
PROVIDERS: Registered Nurse Emergency; Emergency Provider Emergency Medicine; PCP Internal Medicine
DX: F31.9 Bipolar disorder, unspecified (principal); R45.851 Suicidal ideations; F41.9 Anxiety disorder, unspecified; Z03.818 Encounter for observation for suspected exposure to other biological agents ruled out; E11.9 Type 2 diabetes mellitus without complications; I10 Essential (primary) hypertension; E78.5 Hyperlipidemia, unspecified; F17.210 Nicotine dependence, cigarettes, uncomplicated; Z79.84 Long term (current) use of oral hypoglycemic drugs; Z79.899 Other long term (current) drug therapy
CPT/HCPCS: 0241U; 80053; 80307; 81001; 85025; 99284; S9485

== ENCOUNTER 2024-04-20 11:45 | Outpatient (REF) | payer BC, OTHER, SELFPAY ==
[2024-04-20 12:00] LABS: MANUAL DIFF FLAG NO
[2024-04-20 12:45] LABS: Basophils Percent Auto 0.4 % (0-2); Eosinophils Absolute Auto 0.1 X10*3/uL (0.0-0.4); Eosinophils Percent Auto 0.6 % (0-4); Hematocrit 40.9 % (37.0-47.0); Hemoglobin 13.5 g/dl (12.0-16.0); Imm Gran Abs Auto 0.03 X10*3/uL (0.00-0.03); Imm Gran Pct Auto 0.3 % (0.0-0.4); Lymphocytes Absolute Auto 2.8 X10*3/uL (1.2-4.9); Lymphocytes Percent Auto 29.2 % (20-40); Mean Corpuscular Hemoglobin 30.3 pg (27.0-33.0); Mean Corpuscular Volume 91.9 fL (80.0-98.0); Mean Platelet Volume 10.2 fL (9.4-12.3); Monocytes Absolute Auto 0.5 X10*3/uL (0.1-1.2); Neutrophils Absolute Auto 6.1 x10*3/uL (2.0-8.3); Neutrophils Percent Auto 64.5 % (45-73); Platelet Count 274 X10*3/uL (160-400); Red Blood Count 4.45 X10*6/uL (4.20-5.50); Red Cell Distribution Width 13.5 % (11.0-16.0); White Blood Count 9.5 X10*3/uL (4.8-10.8)
== END 2024-04-20 11:46 | disposition home or self-care (01) ==
LOC: HO.LABR 11:45
PROVIDERS: PCP Internal Medicine; Visit Provider Clinical Nurse Specialist Psychiatric/Mental Health, Child & Adolescent
DX: Z79.899 Other long term (current) drug therapy (principal)
CPT/HCPCS: 36415; 85025

== ENCOUNTER → 2024-05-07 08:52 | Outpatient (REF) | payer BC, OTHER, SELFPAY ==
--- NOTE | ~2024-05-07 | NM_ITS ---
Lexiscan Myocardial perfusion study Indication: Chest pain Technique: The patient was brought in for a Lexiscan perfusion study on 05/07/2024 and was injected 0.4 mg of Lexiscan intravenously. Within a minute of this injection 40 mCi of sestamibi was given intravenously. Images were obtained using the SPECT gamma camera interlaced with the gating device. Images were obtained in supine position. Resting perfusion study was performed on 05/12/2024. Patient was administered 40 mCi of sestamibi intravenously at rest. Images were then obtained in supine position. Total DLP 160 mGy-cm. Images were processed with the software and compared side to side in short axis, horizontal long axis and vertical long axis views. Findings: Raw aquisition reviewed. The stress perfusion study showed no significant perfusion abnormality. Both uncorrected as well as CT attenuation corrected images were reviewed. The gated study shows normal LV systolic function with calculated LVEF of 65%. LV cavity is normal in size. The gated study shows normal wall thickening and contraction of segments. Resting study shows no significant perfusion abnormality. Gating at rest reveals normal wall motion with ejection fraction at 74%. The findings are consistent with no clear reversible or fixed perfusion abnormality. NM/NM cardiolite stress test Impression: 1. Myocardial perfusion imaging study shows likely normal myocardial perfusion. 2. Gated LVEF is 65% during stress and 74% during rest. 3. Transient ischemic dilatation not present. EKG component of the test reported separately. Electronically signed by: Enzo Jay MD 05/13/2024 12:11 PM EDT
--- NOTE | 2024-05-07 08:54 | CA_ITS ---
Acquisition Time: 2024-05-07 09:28:01 Total Exercise Time: 00:02:00 Test Indications: CP, ABN.STRESS WITH CHEST DISCOM Medications: Protocol: LEXISCAN Max HR: 122 BPM 70% of Pred: 172 BPM Max BP: 132/078 mmHG Max Work Load: 1.0 METS Pharmacological stress test with Lexiscan injection while sitting and kicking her legs, with 2/10 chest pressure at baseline without change, with mild shortness of breath. without arrhythmias, with normotensive response to injection, with nondiagnoisiitc EKGs. Aminophyilline 75mg IVP given to reverse Lexiscan. Nuclear images pending. Test reviewed with Dr. Galeano. Referred By: Swati Zamarripa Overread By: Kimberlyn Leigh
== END ==
LOC: HO.CARD 08:52
PROVIDERS: PCP Internal Medicine; Visit Provider Nurse Practitioner Family
DX: R07.89 Other chest pain (principal); R94.39 Abnormal result of other cardiovascular function study
CPT/HCPCS: 78452; 93017; A9500; J0280; J2785

== ENCOUNTER → 2024-05-07 08:54 | Outpatient (BNV) | payer BC, OTHER, SELFPAY | PROVIDERS: PCP Internal Medicine; Visit Provider Nurse Practitioner | DX: R07.9 Chest pain, unspecified (principal) | CPT/HCPCS: 78452; 93016; 93018 ==

== ENCOUNTER 2024-05-18 10:56 | Outpatient (REF) | payer BC, OTHER, SELFPAY ==
[2024-05-18 11:10] LABS: MANUAL DIFF FLAG NO
[2024-05-18 11:45] LABS: Basophils Percent Auto 0.4 % (0-2); Eosinophils Absolute Auto 0.1 X10*3/uL (0.0-0.4); Eosinophils Percent Auto 0.9 % (0-4); Hematocrit 39.7 % (37.0-47.0); Hemoglobin 13.1 g/dl (12.0-16.0); Imm Gran Abs Auto 0.02 X10*3/uL (0.00-0.03); Imm Gran Pct Auto 0.3 % (0.0-0.4); Lymphocytes Absolute Auto 2.4 X10*3/uL (1.2-4.9); Lymphocytes Percent Auto 31.1 % (20-40); Mean Corpuscular Volume 91.1 fL (80.0-98.0); Mean Platelet Volume 10.1 fL (9.4-12.3); Monocytes Absolute Auto 0.3 X10*3/uL (0.1-1.2); Monocytes Percent Auto 4.4 % (2-11); Neutrophils Absolute Auto 4.9 x10*3/uL (2.0-8.3); Neutrophils Percent Auto 62.9 % (45-73); Platelet Count 251 X10*3/uL (160-400); Red Blood Count 4.36 X10*6/uL (4.20-5.50); Red Cell Distribution Width 13.2 % (11.0-16.0); White Blood Count 7.7 X10*3/uL (4.8-10.8)
== END 2024-05-18 10:57 | disposition home or self-care (01) ==
LOC: HO.LABR 10:56
PROVIDERS: PCP Internal Medicine; Visit Provider Clinical Nurse Specialist Psychiatric/Mental Health, Child & Adolescent
DX: Z79.899 Other long term (current) drug therapy (principal)
CPT/HCPCS: 36415; 85025

== ENCOUNTER 2024-06-12 12:29 | Outpatient (REF) | payer BC, OTHER, SELFPAY ==
[2024-06-12 12:49] LABS: MANUAL DIFF FLAG NO
[2024-06-12 13:28] LABS: Basophils Percent Auto 0.4 % (0-2); Eosinophils Absolute Auto 0.1 X10*3/uL (0.0-0.4); Eosinophils Percent Auto 0.7 % (0-4); Hematocrit 37.7 % (37.0-47.0); Hemoglobin 12.7 g/dl (12.0-16.0); Imm Gran Abs Auto 0.04 X10*3/uL (0.00-0.03); Imm Gran Pct Auto 0.4 % (0.0-0.4); Lymphocytes Percent Auto 26.7 % (20-40); Mean Corpuscular HGB Conc 33.7 g/dl (31.0-35.0); Monocytes Absolute Auto 0.4 X10*3/uL (0.1-1.2); Neut%MD 67.8 %; Neutrophils Absolute Auto 7.5 x10*3/uL (2.0-8.3); Neutrophils Percent Auto 67.8 % (45-73); Platelet Count 257 X10*3/uL (160-400); Red Cell Distribution Width 13.2 % (11.0-16.0); WBCANC 11.1 X10*3/uL; White Blood Count 11.1 X10*3/uL (4.8-10.8)
== END 2024-06-12 12:30 | disposition home or self-care (01) ==
LOC: HO.LABR 12:29
PROVIDERS: PCP Internal Medicine; Visit Provider Clinical Nurse Specialist Psychiatric/Mental Health, Child & Adolescent
DX: Z79.899 Other long term (current) drug therapy (principal)
CPT/HCPCS: 36415; 85025

== ENCOUNTER 2024-07-13 11:16 | Outpatient (REF) | payer MEDICARE, BC, SELFPAY ==
[2024-07-13 12:15] LABS: Basophils Absolute Auto 0.1 X10*3/uL (0.0-0.2); Basophils Percent Auto 0.6 % (0-2); Eosinophils Percent Auto 0.3 % (0-4); Hematocrit 38.8 % (37.0-47.0); Hemoglobin 13.3 g/dl (12.0-16.0); Imm Gran Abs Auto 0.08 X10*3/uL (0.00-0.03); Imm Gran Pct Auto 0.8 % (0.0-0.4); Lymphocytes Absolute Auto 2.6 X10*3/uL (1.2-4.9); Lymphocytes Percent Auto 25.9 % (20-40); MANUAL DIFF FLAG SCAN; Mean Corpuscular HGB Conc 34.3 g/dl (31.0-35.0); Mean Corpuscular Hemoglobin 30.7 pg (27.0-33.0); Mean Corpuscular Volume 89.6 fL (80.0-98.0); Monocytes Absolute Auto 0.4 X10*3/uL (0.1-1.2); Monocytes Percent Auto 3.9 % (2-11); Neut%MD 68.5 %; Neutrophils Absolute Auto 6.8 x10*3/uL (2.0-8.3); Neutrophils Percent Auto 68.5 % (45-73); PLT CLUMP 1; Red Blood Count 4.33 X10*6/uL (4.20-5.50); SCAN SMEAR FLAG 1
[2024-07-13 12:18] LABS: Cholesterol 236 mg/dL (<200); HDL Cholesterol 35 mg/dL (>40); Triglycerides 464 mg/dL (<150)
[2024-07-13 12:37] LABS: Mean Platelet Volume 10.5 fL (9.4-12.3); Platelet Count 186 X10*3/uL (160-400); SLIDE REVIEW VERIFIED
[2024-07-13 12:59] LABS: ~HepC Num1 0.05 S/CO (0.00-0.79); ~Hepatitis C Antibody Nonreactive (Nonreactive)
== END 2024-07-13 11:17 | disposition home or self-care (01) ==
LOC: HO.LABR 11:16
PROVIDERS: Absent Provider Clinical Nurse Specialist Psychiatric/Mental Health, Child & Adolescent; PCP Internal Medicine; Visit Provider Internal Medicine
DX: E11.9 Type 2 diabetes mellitus without complications (principal); I10 Essential (primary) hypertension; L08.0 Pyoderma; Z79.899 Other long term (current) drug therapy
CPT/HCPCS: 36415; 80061; 85025; 86803

== ENCOUNTER 2024-07-14 14:37 | Outpatient (REF) | payer MEDICARE, BC, SELFPAY ==
[2024-07-15 11:15] LABS: HPV 16,18/45 See PAP report
== END 2024-07-14 14:38 | disposition home or self-care (01) ==
LOC: HO.LNP 14:37
PROVIDERS: Visit Provider Family Medicine
DX: Z12.4 Encounter for screening for malignant neoplasm of cervix (principal); Z11.51 Encounter for screening for human papillomavirus (HPV); Z87.42 Personal history of other diseases of the female genital tract
CPT/HCPCS: 87624; 88175

== ENCOUNTER 2024-08-05 13:18 | Emergency (ER) | payer BC, MEDICARE, SELFPAY ==
--- NOTE | ~2024-08-05 | XR_ITS ---
EXAMINATION: XR CHEST CLINICAL INFORMATION: chest pain COMPARISON: None available. TECHNIQUE: Frontal view of the chest was obtained. FINDINGS: No significant abnormality is noted involving the heart, lungs, mediastinum, bony thorax or soft tissues. XR/XR chest 1V IMPRESSION: Unremarkable examination. Electronically signed by: Oneil Mejia MD 08/05/2024 05:13 PM [facility]
--- NOTE | 2024-08-05 13:28 | ECG_ITS ---
Test Reason : SYNCOPE Blood Pressure : / mmHG Vent. Rate : 089 BPM Atrial Rate : 089 BPM P-R Int : 188 ms QRS Dur : 088 ms QT Int : 358 ms P-R-T Axes : 021 046 018 degrees QTc Int : 435 ms Normal sinus rhythm Nonspecific T wave abnormality Abnormal ECG When compared with ECG of 16-MAR-2024 19:42, Nonspecific T wave abnormality now evident in Inferior leads Referred By: Generic ED Physician Electronically Signed By:MAGGIE MONTOYA MD
[2024-08-05 14:07] VITALS: BP 132/88; PULSE 90; RESP 18; TEMP 36.6; O2SAT 98; BMI 48.2
[2024-08-05 16:37] LABS: MANUAL DIFF FLAG NO
[2024-08-05 16:39] LABS: Basophils Percent Auto 0.3 % (0-2); Eosinophils Percent Auto 0.1 % (0-4); Hematocrit 40.4 % (37.0-47.0); Hemoglobin 13.6 g/dl (12.0-16.0); Imm Gran Abs Auto 0.04 X10*3/uL (0.00-0.03); Imm Gran Pct Auto 0.4 % (0.0-0.4); Lymphocytes Absolute Auto 3.2 X10*3/uL (1.2-4.9); Lymphocytes Percent Auto 30.6 % (20-40); Mean Corpuscular HGB Conc 33.7 g/dl (31.0-35.0); Mean Corpuscular Hemoglobin 30.8 pg (27.0-33.0); Mean Corpuscular Volume 91.6 fL (80.0-98.0); Mean Platelet Volume 9.5 fL (9.4-12.3); Monocytes Absolute Auto 0.4 X10*3/uL (0.1-1.2); Neutrophils Absolute Auto 6.7 x10*3/uL (2.0-8.3); Neutrophils Percent Auto 64.6 % (45-73); Platelet Count 213 X10*3/uL (160-400); Red Blood Count 4.41 X10*6/uL (4.20-5.50); Red Cell Distribution Width 12.7 % (11.0-16.0); White Blood Count 10.3 X10*3/uL (4.8-10.8)
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
[2024-08-05 17:00] LABS: Acetaminophen LAB < 3 mcg/mL (<30); Salicylate < 5.0 mg/dL (15-30)
[2024-08-05 17:01] LABS: Alanine Aminotransferase 39 U/L (0-31); Albumin Level 4.7 g/dL (3.5-5.0); Alkaline Phosphatase 70 U/L (39-117); Anion Gap 11 (12-20); Aspartate Amino Transferase 28 U/L (5-31); Bilirubin Total 0.3 mg/dL (0.0-1.0); Blood Urea Nitrogen 7 mg/dL (9-16); Calcium 10.1 mg/dL (8.4-10.2); Carbon Dioxide 30 mmol/L (22-29); Chloride 107 mmol/L (96-108); Creatinine Clr Calc Pharmacy 132.9; Estimated Glomerular Filt Rate > 60; Ethanol < 10 mg/dL; Glucose Random 91 mg/dL (60-115); Lipase 37 U/L (8-78); Magnesium 2.1 mg/dL (1.6-2.6); Sodium 144 mmol/L (135-145); Total Protein 7.7 g/dL (6.5-8.0)
[2024-08-05] MEDS: LORazepam 1 MG TABLET 2 MG PO (17:04)
--- NOTE | 2024-08-05 17:05 | PC.NURSE ---
pt feeling extremely anxious and crying, pt does not give a straight answer when asked if she is suicidal- states i thought about is but pt states that she really does not have time for that right now but also states that she is up to her wits end with everyting
[2024-08-05 17:06] LABS: Troponin-I High Sensitivity < 2.7 ng/L (<3.5-17.0)
[2024-08-05 17:08] LABS: Amphetamine Screen Urine Not Detected (Not Detect); Appearance Urine Clear; Barbiturates, Urine Not Detected (Not Detect); Benzodiazepines Screen Urine Not Detected (Not Detect); Buprenorphine Scr Not Detected (Not Detect); Cannabinoid Screen Urine POSITIVE (Not Detect); Cocaine Screen Urine Not Detected (Not Detect); Color Urine Yellow; Fentanyl, urine Not Detected (Not Detect); Glucose Urine UA Negative (Negative); Leukocyte Esterase Urine Negative (Negative); Methadone Screen, Urine Not Detected (Not Detect); Nitrite Urine Negative (Negative); Opiate Screen Urine Not Detected (Not Detect); Oxycodone Screen Urine Not Detected (Not Detect); Phencyclidine Screen Urine Not Detected (Not Detect); Specific Gravity - Urine <= 1.005 (1.005-1.025); Urine Blood Negative (Negative); Urine Ketones Negative (Negative); Urine Protein Negative (Neg-Trace)
[2024-08-05 17:18] VITALS: BP 120/68; PULSE 86; RESP 18; TEMP 36.6; O2SAT 96
[2024-08-05 17:23] LABS: Influenza A PCR NEGATIVE (Negative); Influenza B PCR NEGATIVE (Negative); Resp Syncy Virus RNA Qual PCR NEGATIVE (Negative); SARS COV2 PCR INHOUSE NEGATIVE (Negative)
--- NOTE | 2024-08-05 19:08 | PC.NURSE ---
patient appears to remain at rest at present respirations are even and unlabored patient appears in no distress.
[2024-08-05] MEDS: Acetaminophen 325 MG TABLET 650 MG PO (20:12)
[2024-08-05 21:06] VITALS: BP 128/80; PULSE 88; RESP 16; TEMP 37; O2SAT 99
== END 2024-08-05 21:06 | disposition home or self-care (01) ==
PROVIDERS: Emergency Provider Internal Medicine; PCP Internal Medicine
DX: F41.9 Anxiety disorder, unspecified (principal); R07.9 Chest pain, unspecified; R55 Syncope and collapse; Z03.818 Encounter for observation for suspected exposure to other biological agents ruled out; F31.9 Bipolar disorder, unspecified; E11.9 Type 2 diabetes mellitus without complications; I10 Essential (primary) hypertension; E78.5 Hyperlipidemia, unspecified; F17.210 Nicotine dependence, cigarettes, uncomplicated; F12.90 Cannabis use, unspecified, uncomplicated; E66.9 Obesity, unspecified; Z68.42 Body mass index [BMI] 45.0-49.9, adult; Z79.84 Long term (current) use of oral hypoglycemic drugs; Z79.899 Other long term (current) drug therapy
CPT/HCPCS: 0241U; 71045; 80053; 80143; 80179; 80307; 81003; 83690; 83735; 84484; 85025; 93005; 99284; 99285

== ENCOUNTER → 2024-08-05 13:28 | Outpatient (BNV) | payer BC, MEDICARE, SELFPAY | PROVIDERS: Emergency Provider Internal Medicine; PCP Internal Medicine; Visit Provider Internal Medicine Cardiovascular Disease | DX: R55 Syncope and collapse (principal); R94.31 Abnormal electrocardiogram [ECG] [EKG] | CPT/HCPCS: 93010 ==

== ENCOUNTER 2024-08-10 10:53 | Outpatient (REF) | payer BC, MEDICARE, SELFPAY ==
[2024-08-10 11:05] LABS: MANUAL DIFF FLAG NO
[2024-08-10 12:59] LABS: Basophils Percent Auto 0.4 % (0-2); Hematocrit 37.8 % (37.0-47.0); Hemoglobin 12.7 g/dl (12.0-16.0); Imm Gran Abs Auto 0.04 X10*3/uL (0.00-0.03); Imm Gran Pct Auto 0.4 % (0.0-0.4); Lymphocytes Absolute Auto 2.7 X10*3/uL (1.2-4.9); Lymphocytes Percent Auto 28.2 % (20-40); Mean Corpuscular HGB Conc 33.6 g/dl (31.0-35.0); Mean Corpuscular Hemoglobin 30.7 pg (27.0-33.0); Mean Corpuscular Volume 91.3 fL (80.0-98.0); Mean Platelet Volume 10.4 fL (9.4-12.3); Monocytes Absolute Auto 0.6 X10*3/uL (0.1-1.2); Monocytes Percent Auto 5.9 % (2-11); Neutrophils Absolute Auto 6.2 x10*3/uL (2.0-8.3); Neutrophils Percent Auto 65.1 % (45-73); Platelet Count 218 X10*3/uL (160-400); Red Blood Count 4.14 X10*6/uL (4.20-5.50); Red Cell Distribution Width 12.7 % (11.0-16.0); White Blood Count 9.5 X10*3/uL (4.8-10.8)
== END 2024-08-10 10:54 | disposition home or self-care (01) ==
LOC: HO.LABR 10:53
PROVIDERS: PCP Internal Medicine; Visit Provider Clinical Nurse Specialist Psychiatric/Mental Health, Child & Adolescent
DX: Z79.899 Other long term (current) drug therapy (principal)
CPT/HCPCS: 36415; 85025

== ENCOUNTER 2024-08-30 12:01 | Emergency (ER) | payer BC, MEDICARE, SELFPAY ==
--- NOTE | ~2024-08-30 | CT_ITS ---
CLINICAL HISTORY: lower abdominal pain CT ABDOMEN AND PELVIS WITHOUT CONTRAST Comparison: CT/SR - CT ABDOMEN PELVIS WO IV CON - 03/16/24 22:02 EDT Findings: No basilar consolidation or pleural effusion. No acute abnormalities in the unenhanced solid organs. Nonspecific mild bilateral perinephric stranding is similar to prior. No renal or ureteral calculus. Small bilateral renal cysts. There is diffuse fatty infiltration of the liver which is enlarged. The right hepatic lobe measures 19 cm. Cholecystectomy. No AAA. No bowel obstruction, pneumoperitoneum, or pneumatosis. The appendix is identified. No acute appendicitis. The uterus appears atrophic. No free or loculated fluid collection. Urinary bladder unremarkable. Multiple pelvic phleboliths. Moderately severe narrowing with endplate spurring at L5-S1. No acute fracture. IMPRESSION: 1. No obstructive or acute inflammatory changes in the gastrointestinal and genitourinary tracts. 2. No urolithiasis. This document has been electronically signed by: Tenisha Roman DO on 08/30/2024 18:50:06
[2024-08-30 12:11] VITALS: BP 130/79; PULSE 88; RESP 16; TEMP 36.7; O2SAT 97; BMI 55.3
--- NOTE | 2024-08-30 12:14 | ED_ITS ---
HPI - General Adult General Chief complaint: Abdominal Pain Stated complaint: back pain Time Seen by Provider: 08/30/24 16:22 Source: patient, RN notes reviewed and old records reviewed Mode of arrival: ambulatory Limitations: no limitations History of Present Illness ED Provider: Abram HPI narrative: 49-year-old female with past medical history significant for hypertension, obesity, GERD presents for evaluation of lower abdominal pain and back pain. Patient reports for last few days she has had lower abdominal cramping, mild nausea. She reports her pain radiates to her bilateral flanks. She has no pain to her lower back She reports when she stands up she is incontinent of urine Denies any pain to the lower extremities, numbness, tingling Denies any fevers, chills Related Data Home Medications ?Medication ?Instructions ?Recorded ?Confirmed pantoprazole 40 mg tablet,delayed 40 mg PO BID@0630,1630 11/22/20 04/07/24 release clozapine 100 mg tablet 200 mg PO BEDTIME 11/13/21 04/07/24 lisinopril 40 mg tablet 40 mg PO DAILY 11/13/21 04/07/24 sitagliptin phosphate 50 mg tablet 50 mg PO DAILY 04/17/22 04/07/24 (Januvia) clonazepam 1 mg tablet 1 mg PO BID anxiety 07/03/22 04/07/24 metformin 1,000 mg tablet 1,000 mg PO BIDWM 07/03/22 04/07/24 metoprolol succinate 50 mg 50 mg PO DAILY 07/03/22 04/07/24 tablet,extended release 24 hr mirabegron 50 mg tablet,extended 50 mg PO DAILY 07/03/22 04/07/24 release 24 hr (Myrbetriq) Previous Rx's ?Medication ?Instructions ?Recorded albuterol sulfate 90 mcg/actuation 2 puff inhalation Q4-6H PRN 05/01/23 aerosol inhaler (Proventil HFA) shortness of breath or wheezing #6.7 grams ondansetron HCl 4 mg tablet 4 mg PO Q8H PRN nausea and 09/05/23 vomiting #14 tabs Allergies Allergy/AdvReac Type Severity Reaction Status Date / Time Penicillins [PENICILLINS] Allergy Severe ANAPHYLAXIS Verified 08/30/24 12:14 adhesive [ADHESIVE] Allergy Unknown RASH Verified 08/30/24 12:14 artichoke [ARTICHOKE] Allergy Unknown RASH Verified 08/30/24 12:14 carbamazepine [From TEGRETOL] Allergy Unknown MIGRAINES Verified 08/30/24 12:14 cariprazine [From VRAYLAR] Allergy Unknown LEG CRAMPS Verified 08/30/24 12:14 fentanyl [FENTANYL] Allergy Unknown RASH Verified 08/30/24 12:14 lamotrigine [From LAMICTAL] Allergy Unknown RASH Verified 08/30/24 12:14 lithium [LITHIUM] AdvReac Severe tremor and Verified 08/30/24 12:14 falls dicyclomine AdvReac Hallucinati Verified 08/30/24 12:14 ons Review of Systems 2 Constitutional: Constitutional: Denies body ache(s), Reports chills, Reports fever(s), Denies headache(s), Reports malaise and Reports weakness Eyes: Eyes: Denies blurry vision ENT: Denies headache(s) Cardiovascular: Cardiovascular: Denies chest pain and Denies dyspnea Respiratory: Respiratory: Denies cough and Denies dyspnea Gastrointestinal: Gastrointestinal: Reports abdominal pain (lower), Reports nausea and Denies vomiting Genitourinary: Genitourinary: Denies hematuria, Denies difficulty voiding, Denies hot flashes, Denies light periods and Reports urinary incontinence (when standing) Musculoskeletal: Musculoskeletal: Denies back pain Integumentary/Breasts: Skin/Breast: Denies rash Neurologic: Denies headache(s) and Reports weakness Psychiatric: Psychiatric: Denies anxiety PMFSH Past Medical History Medical History Hypertension Diabetes Thrombosed external hemorrhoid Morbid obesity with BMI of 45.0-49.9, adult Depression Anxiety Renal colic Migraines PCOS (polycystic ovarian syndrome) Pre-diabetes High cholesterol GERD (gastroesophageal reflux disease) Obstructive sleep apnea Bipolar disease, chronic Surgical History History of cholecystectomy History of dilation and curettage Family History Family History Father Coronary artery disease Other Breast cancer Social History Social History Household Members: Spouse and Children Housing: Apartment Do you presently have visiting nurse or other home services: No Alcohol intake: current Alcohol intake frequency: a few times a month Alcohol type: hard liquor Patient Tobacco Use Status: Current everyday Tobacco user Tobacco use type: Cigarette Cigarette Packs Per Day: 1 Cigarettes Per Day: 20.0 Years Smoked: 30 +/- Substance Use Type: Marijuana Advance Directives: No Advance Directives Information Provided: No service: No Current occupational status: employed Physical Exam ED Vital Signs: Vital Signs - 24 hr 08/30/24 12:11 Temperature 98.1 F Pulse Rate 88 Respiratory Rate 16 Blood Pressure 130/79 Pulse Oximetry 97 Oxygen Delivery Method Room Air BMI result Body Mass Index 55.3 Const General: healthy appearing, comfortable, no acute distress, alert and awake Nutritional Appearance: well nourished Orientation/consciousness: patient oriented x3 HENMT Head: Yes normocephalic and Yes atraumatic Eyes Eyelids: Yes eyelids normal Conjunctivae: conjunctivae normal Sclerae: sclerae normal Corneas: corneas normal Pupils: Equal, round and reactive pupils present EOM: EOMs intact bilaterally Neck Neck: Yes full ROM Resp Effort & Inspection: normal respiratory effort, able to speak in complete sentences and not labored Cardio Rate: regular rate Rhythm: regular rhythm GI Inspection: No distended Palpation (GI): Soft to palpation, not firm, Tenderness to palpation present (GI) in the LLQ, in the RLQ and suprapubicly, no guarding and not rigid Skin General skin exam: elasticity normal Neuro General: patient oriented x3 Cranial nerves: Yes Equal, round and reactive pupils present and Yes Bilaterally intact EOM present Cognition (Neuro): normal cognition Extrem Other: Moving all extremities well without any obvious deformities Course Course Course Narrative: RME: 49 yold female presents to the ED for chills, bilateral suprapubic pain, back discomfot, dysuria, increase urinary frequency, and episode of urinary incontinence. Labs, uA ordered Reevaluation(s) Reevaluation #1: Patient's CT scan did not show any abnormal findings. I discussed with the patient her symptoms may be related to perimenopausal. She has an appointment with her primary doctor tomorrow Time: 19:17 Medications Administered Discontinued Medications Generic Name Dose Route Start Last Admin Trade Name Freq PRN Reason Stop Dose Admin Ondansetron HCl 4 mg 08/30/24 17:43 08/30/24 18:01 Ondansetron Odt 4 Mg Tab.Odelldis TRANSLINGU 08/30/24 17:44 4 mg ONCE ONE Administration Tramadol HCl 50 mg 08/30/24 17:43 08/30/24 18:01 Tramadol Hcl 50 Mg Tablet PO 08/30/24 17:44 50 mg ONCE ONE Administration Medical Decision Making Medical Decision Making [facility] Narrative: 49-year-old female presents for evaluation of lower abdominal pain, bilateral flank pain and urinary incontinence. She has no lumbar pain or tenderness on exam. This is not consistent with cauda equina syndrome. This appears to be more likely a issue. The patient does take Myrbetriq for overactive bladder. She reports subjective fevers and chills but is afebrile in the ER with no leukocytosis. The patient's urinalysis is clear, no evidence of UTI. We will get a CT scan of the abdomen pelvis without IV contrast Differential Diagnosis Differential Diagnoses: The differential diagnosis associated with the presentation includes Obstructive uropathy UTI Pyelonephritis Constipation Abdominal pain Inguinal hernia Bladder mass Lab Data [facility] Lab Attestation statement: I reviewed the patient's lab results. No leukocytosis or anemia. Normal platelet count. No electrolyte abnormality. 08/30/24 12:50 08/30/24 12:50 Labs: Lab Results 08/30/24 Range/Units 12:50 WBC 9.9 (4.8-10.8) X10*3/uL RBC 4.34 (4.20-5.50) X10*6/uL Hgb 13.4 (12.0-16.0) g/dl Hct 39.4 (37.0-47.0) % MCV 90.8 (80.0-98.0) fL MCH 30.9 (27.0-33.0) pg MCHC 34.0 (31.0-35.0) g/dl RDW 12.7 (11.0-16.0) % Plt Count 227 (160-400) X10*3/uL MPV 9.3 L (9.4-12.3) fL Immature Gran % (Auto) 0.2 (0.0-0.4) % Neut % (Auto) 60.7 (45-73) % Lymph % (Auto) 34.0 (20-40) % [place] % (Auto) 4.9 (2-11) % Eos % (Auto) 0.0 (0-4) % Baso % (Auto) 0.2 (0-2) % Lymph # (Auto) 3.4 (1.2-4.9) X10*3/uL [place] # (Auto) 0.5 (0.1-1.2) X10*3/uL Eos # (Auto) 0.0 (0.0-0.4) X10*3/uL Baso # (Auto) 0.0 (0.0-0.2) X10*3/uL Abs Immat Gran (auto) 0.02 (0.00-0.03) X10*3/uL Absolute Neuts (auto) 6.0 (2.0-8.3) x10*3/uL Absolute Nucleated RBC 0.000 (0.0-0.012) X10*3/uL Nucleated RBC % (auto) 0.0 (0.0-0.2) /100WBC Sodium 143 (135-145) mmol/L Potassium 4.1 (3.3-5.1) mmol/L Chloride 107 (96-108) mmol/L Carbon Dioxide 25 (22-29) mmol/L Anion Gap 15 (12-20) BUN 14 (9-16) mg/dL Creatinine 0.65 (0.5-1.4) mg/dL Estim Creat Clear Calc 145.6 Estimated GFR > 60 Random Glucose 73 (60-115) mg/dL Calcium 9.1 D (8.4-10.2) mg/dL Total Bilirubin 0.3 (0.0-1.0) mg/dL AST 25 (5-31) U/L ALT 35 H (0-31) U/L Alkaline Phosphatase 65 (39-117) U/L Total Protein 7.4 (6.5-8.0) g/dL Albumin 4.5 (3.5-5.0) g/dL Beta HCG, Quant 5 mIU/mL Urine Color Yellow Urine Appearance Clear Urine pH 7.0 (5.0-9.0) Ur Specific [place] 1.010 (1.005-1.025) Urine Protein Negative (Neg-Trace) mg/dL Urine Glucose (UA) Negative (Negative) mg/dL Urine Ketones Negative (Negative) mg/dL Urine Blood Trace (Negative) Urine Nitrite Negative (Negative) Ur Leukocyte Esterase Negative (Negative) Urine RBC 0-2 (0-2) /HPF Urine WBC 0-5 (0-5) /HPF Ur Squamous Epith Cells 0-2 (0-2) /HPF Urine Bacteria None Seen (None Seen) Hyaline Casts 0-2 (0-2) /LPF Urine Test NEGATIVE (NEGATIVE) Radiology Impression Discussion of test interpretation with radiology: I have reviewed the radiologist's reading. Radiologist Impression: Findings: No basilar consolidation or pleural effusion. No acute abnormalities in the unenhanced solid organs. Nonspecific mild bilateral perinephric stranding is similar to prior. No renal or ureteral calculus. Small bilateral renal cysts. There is diffuse fatty infiltration of the liver which is enlarged. The right hepatic lobe measures 19 cm. Cholecystectomy. No AAA. No bowel obstruction, pneumoperitoneum, or pneumatosis. The appendix is identified. No acute appendicitis. The uterus appears atrophic. No free or loculated fluid collection. Urinary bladder unremarkable. Multiple pelvic phleboliths. Moderately severe narrowing with endplate spurring at L5-S1. No acute fracture. IMPRESSION: 1. No obstructive or acute inflammatory changes in the gastrointestinal and genitourinary tracts. 2. No urolithiasis. This document has been electronically signed by: Tenisha Roman DO on 08/30/2024 18:50:06 Tests considered The following testing was considered but not selected: Considered pelvic ultrasound but this was ultimately deferred as the patient would prefer to be discharged. I have a low suspicion for ovarian torsion or other emergent pathology, so I feel it is appropriate for discharge at this time Discharge Plan Discharge Clinical Impression: Abdominal pain Patient Disposition: Home, Self-Care Instructions: Abdominal Pain (ED) Additional Instructions: Your workup in the ER today was reassuring. This includes your blood work, urinalysis, CT scan. I do recommend an outpatient pelvic ultrasound for further evaluation if your symptoms persist Follow-up with your primary doctor, return for new or worsening symptoms Prescriptions: No Action Myrbetriq 50 mg tablet extended release 24 hr 50 mg PO DAILY clozapine 100 mg tablet 200 mg PO BEDTIME lisinopril 40 mg tablet 40 mg PO DAILY clonazepam 1 mg tablet 1 mg PO BID metformin 1,000 mg tablet 1,000 mg PO BIDWM metoprolol succinate 50 mg tablet extended release 24 hr 50 mg PO DAILY Januvia 50 mg tablet 50 mg PO DAILY ondansetron HCl 4 mg tablet 4 mg PO Q8H PRN (Reason: nausea and vomiting) Qty: 14 0RF Patient Comments: PRN med albuterol sulfate [Proventil HFA] 90 mcg/actuation HFA aerosol inhaler 2 puff inhalation Q4-6H PRN (Reason: shortness of breath or wheezing) Qty: 6.7 0RF pantoprazole 40 mg tablet,delayed release (DR/EC) 40 mg PO BID@1589,3342 Print Language: Vietnamese
[2024-08-30 12:55] LABS: MANUAL DIFF FLAG NO
[2024-08-30 12:57] LABS: Basophils Percent Auto 0.2 % (0-2); Hematocrit 39.4 % (37.0-47.0); Hemoglobin 13.4 g/dl (12.0-16.0); Imm Gran Abs Auto 0.02 X10*3/uL (0.00-0.03); Imm Gran Pct Auto 0.2 % (0.0-0.4); Lymphocytes Absolute Auto 3.4 X10*3/uL (1.2-4.9); Mean Corpuscular Hemoglobin 30.9 pg (27.0-33.0); Mean Corpuscular Volume 90.8 fL (80.0-98.0); Mean Platelet Volume 9.3 fL (9.4-12.3); Monocytes Absolute Auto 0.5 X10*3/uL (0.1-1.2); Monocytes Percent Auto 4.9 % (2-11); Neutrophils Percent Auto 60.7 % (45-73); Platelet Count 227 X10*3/uL (160-400); Red Blood Count 4.34 X10*6/uL (4.20-5.50); Red Cell Distribution Width 12.7 % (11.0-16.0); White Blood Count 9.9 X10*3/uL (4.8-10.8)
[2024-08-30 12:58] LABS: Appearance Urine Clear; Color Urine Yellow; Glucose Urine UA Negative (Negative); Leukocyte Esterase Urine Negative (Negative); Nitrite Urine Negative (Negative); UMIC TRIGGER UACC YES; Urine Blood Trace (Negative); Urine Ketones Negative (Negative); Urine Protein Negative (Neg-Trace)
[2024-08-30 12:59] LABS: UPreg QC Valid YES; Urine Pregnancy NEGATIVE (NEGATIVE)
[2024-08-30 13:04] LABS: Bacteria Urine None Seen (None Seen); Hyaline Casts Urine 0-2 /LPF (0-2); RBC Urine 0-2 /HPF (0-2); Squamous Epithelial Cell Urine 0-2 /HPF (0-2); WBC Urine 0-5 /HPF (0-5)
[2024-08-30 13:27] LABS: Alanine Aminotransferase 35 U/L (0-31); Albumin Level 4.5 g/dL (3.5-5.0); Alkaline Phosphatase 65 U/L (39-117); Anion Gap 15 (12-20); Aspartate Amino Transferase 25 U/L (5-31); Bilirubin Total 0.3 mg/dL (0.0-1.0); Blood Urea Nitrogen 14 mg/dL (9-16); Calcium 9.1 mg/dL (8.4-10.2); Carbon Dioxide 25 mmol/L (22-29); Chloride 107 mmol/L (96-108); Creatinine Clr Calc Pharmacy 145.6; Estimated Glomerular Filt Rate > 60; Glucose Random 73 mg/dL (60-115); HCG Quantitative 5 mIU/mL; Potassium 4.1 mmol/L (3.3-5.1); Sodium 143 mmol/L (135-145); Total Protein 7.4 g/dL (6.5-8.0)
[2024-08-30] MEDS: Ondansetron ODT 4 MG TAB.RAPDIS TRANSLINGU (18:01)
[2024-08-30] MEDS: traMADoL HCL 50 MG TABLET PO (18:01)
[2024-08-30 19:17] VITALS: BP 169/79; PULSE 76; RESP 16; TEMP 36.8; O2SAT 95
[2024-08-30 19:24] VITALS: BP 169/79; PULSE 76; RESP 16; TEMP 36.8; O2SAT 95
== END 2024-08-30 19:25 | disposition home or self-care (01) ==
PROVIDERS: Physician Assistant; Emergency Provider Emergency Medicine Emergency Medical Services; PCP Internal Medicine
DX: R10.2 Pelvic and perineal pain (principal); M54.50 Low back pain, unspecified; R11.0 Nausea; R32 Unspecified urinary incontinence; F17.210 Nicotine dependence, cigarettes, uncomplicated; R50.9 Fever, unspecified; I10 Essential (primary) hypertension; Z79.899 Other long term (current) drug therapy
CPT/HCPCS: 36415; 74176; 80053; 81001; 81003; 81025; 84702; 85025; 99284

== ENCOUNTER → 2024-08-30 17:43 | Outpatient (BNV) | payer BC, MEDICARE, SELFPAY | PROVIDERS: Emergency Provider Emergency Medicine Emergency Medical Services; PCP Internal Medicine; Visit Provider Radiology Diagnostic Radiology | DX: R10.30 Lower abdominal pain, unspecified (principal) | CPT/HCPCS: 74176 ==

== ENCOUNTER 2024-09-07 12:15 | Outpatient (REF) | payer BC, MEDICARE, SELFPAY ==
[2024-09-07 12:41] LABS: MANUAL DIFF FLAG NO
[2024-09-07 12:49] LABS: Basophils Percent Auto 0.2 % (0-2); Hemoglobin 12.9 g/dl (12.0-16.0); Imm Gran Abs Auto 0.04 X10*3/uL (0.00-0.03); Imm Gran Pct Auto 0.3 % (0.0-0.4); Lymphocytes Absolute Auto 2.7 X10*3/uL (1.2-4.9); Lymphocytes Percent Auto 22.9 % (20-40); Mean Corpuscular HGB Conc 33.1 g/dl (31.0-35.0); Mean Corpuscular Hemoglobin 30.4 pg (27.0-33.0); Mean Platelet Volume 9.5 fL (9.4-12.3); Monocytes Absolute Auto 0.5 X10*3/uL (0.1-1.2); Monocytes Percent Auto 4.5 % (2-11); Neut%MD 72.1 %; Neutrophils Absolute Auto 8.6 x10*3/uL (2.0-8.3); Neutrophils Percent Auto 72.1 % (45-73); Platelet Count 226 X10*3/uL (160-400); Red Blood Count 4.24 X10*6/uL (4.20-5.50); Red Cell Distribution Width 12.6 % (11.0-16.0); WBCANC 11.9 X10*3/uL; White Blood Count 11.9 X10*3/uL (4.8-10.8)
== END 2024-09-07 12:16 | disposition home or self-care (01) ==
LOC: HO.LAB 12:15
PROVIDERS: PCP Internal Medicine; Visit Provider Clinical Nurse Specialist Psychiatric/Mental Health, Child & Adolescent
DX: Z79.899 Other long term (current) drug therapy (principal)
CPT/HCPCS: 36415; 85025

== ENCOUNTER 2024-09-16 14:05 | Emergency (ER) | payer BC, MEDICARE, SELFPAY ==
--- NOTE | ~2024-09-16 | CT_ITS ---
CLINICAL HISTORY: RLQ pain CT abdomen and pelvis without contrast Comparison: CT/SR - CT ABDOMEN PELVIS WO IV CON - 08/30/24 17:47 EST Findings: No consolidation or effusion. Gallbladder is surgically absent. No biliary ductal dilatation. The liver is enlarged and demonstrates low attenuation suggestive of steatosis. Stable 1 cm hypodense lesion in left hepatic lobe of the dome which is too small to be fully characterized. Unenhanced spleen and pancreas are unremarkable. Adrenal glands are normal. No renal or ureteral stones. Stable nonspecific bilateral perinephric stranding and stable hypodense renal lesions bilaterally suggestive of cysts. No bowel obstruction, pneumoperitoneum, or pneumatosis. Normal appendix. No free fluid and no loculated fluid collection. Uterus is small. Urinary bladder within normal limits. No aneurysm of the abdominal aorta. Very small fat containing umbilical hernia. No acute osseous process. Degenerative disc disease at L5-S1. IMPRESSION: 1. No renal or ureteral stones. Normal appendix. 2. Stable nonspecific bilateral perinephric stranding and additional stable findings as described. This document has been electronically signed by: Mague Botello MD on 09/16/2024 21:30:24
[2024-09-16 14:14] VITALS: BP 135/87; PULSE 96; RESP 18; TEMP 36.4; O2SAT 98; BMI 33.6
--- NOTE | 2024-09-16 14:15 | ED_ITS ---
HPI - General Adult General Chief complaint: Abdominal Pain Stated complaint: Lower R Abd Pain Sent by UC Time Seen by Provider: 09/16/24 19:17 Source: patient Mode of arrival: ambulatory Limitations: no limitations History of Present Illness ED Provider: Moose Ponce HPI narrative: 49-year-old female with history of GERD, hypertension, and hemorrhoids presents to ED for right umbilical and right lower quadrant pain of sent from urgent care. Patient was seen at least last week with similar symptoms. Patient denies any dysuria, hematuria, vaginal bleeding, flank pain, vomiting, loss of appetite, fever, or chills. Related Data Home Medications ?Medication ?Instructions ?Recorded ?Confirmed pantoprazole 40 mg tablet,delayed 40 mg PO BID@0630,1630 11/22/20 04/07/24 release clozapine 100 mg tablet 200 mg PO BEDTIME 11/13/21 04/07/24 lisinopril 40 mg tablet 40 mg PO DAILY 11/13/21 04/07/24 sitagliptin phosphate 50 mg tablet 50 mg PO DAILY 04/17/22 04/07/24 (Januvia) clonazepam 1 mg tablet 1 mg PO BID anxiety 07/03/22 04/07/24 metformin 1,000 mg tablet 1,000 mg PO BIDWM 07/03/22 04/07/24 metoprolol succinate 50 mg 50 mg PO DAILY 07/03/22 04/07/24 tablet,extended release 24 hr mirabegron 50 mg tablet,extended 50 mg PO DAILY 07/03/22 04/07/24 release 24 hr (Myrbetriq) Previous Rx's ?Medication ?Instructions ?Recorded albuterol sulfate 90 mcg/actuation 2 puff inhalation Q4-6H PRN 05/01/23 aerosol inhaler (Proventil HFA) shortness of breath or wheezing #6.7 grams ondansetron HCl 4 mg tablet 4 mg PO Q8H PRN nausea and 09/05/23 vomiting #14 tabs ketorolac 10 mg tablet 10 mg PO Q6H PRN pain #20 tabs 09/16/24 Allergies Allergy/AdvReac Type Severity Reaction Status Date / Time Penicillins [PENICILLINS] Allergy Severe ANAPHYLAXIS Verified 09/16/24 14:16 adhesive [ADHESIVE] Allergy Unknown RASH Verified 09/16/24 14:16 artichoke [ARTICHOKE] Allergy Unknown RASH Verified 09/16/24 14:16 carbamazepine [From TEGRETOL] Allergy Unknown MIGRAINES Verified 09/16/24 14:16 cariprazine [From VRAYLAR] Allergy Unknown LEG CRAMPS Verified 09/16/24 14:16 fentanyl [FENTANYL] Allergy Unknown RASH Verified 09/16/24 14:16 lamotrigine [From LAMICTAL] Allergy Unknown RASH Verified 09/16/24 14:16 lithium [LITHIUM] AdvReac Severe tremor and Verified 09/16/24 14:16 falls dicyclomine AdvReac Hallucinati Verified 09/16/24 14:16 ons Review of Systems 2 Review of Systems: Right-sided abdominal pain Yes all other systems are reviewed and are negative [facility] Past Medical History Medical History Hypertension Diabetes Thrombosed external hemorrhoid Morbid obesity with BMI of 45.0-49.9, adult Depression Anxiety Renal colic Migraines PCOS (polycystic ovarian syndrome) Pre-diabetes High cholesterol GERD (gastroesophageal reflux disease) Obstructive sleep apnea Bipolar disease, chronic Surgical History History of cholecystectomy History of dilation and curettage Family History Family History Father Coronary artery disease Other Breast cancer Social History Social History Household Members: Spouse and Children Housing: Apartment Do you presently have visiting nurse or other home services: No Alcohol intake: current Alcohol intake frequency: a few times a month Alcohol type: hard liquor Patient Tobacco Use Status: Current everyday Tobacco user Tobacco use type: Cigarette Cigarette Packs Per Day: 1 Cigarettes Per Day: 20.0 Years Smoked: 30 +/- Substance Use Type: Marijuana service: No Current occupational status: employed Physical Exam ED Vital Signs: Vital Signs - 24 hr 09/16/24 14:14 09/16/24 19:38 09/16/24 22:30 Temperature 97.5 F 98.4 F 98.4 F Pulse Rate 96 86 86 Respiratory Rate 18 16 16 Blood Pressure 135/87 133/73 133/73 Pulse Oximetry 98 96 96 Oxygen Delivery Method Room Air Room Air Room Air BMI result Body Mass Index 33.6 Const General: cooperative, healthy appearing, comfortable, no acute distress, well developed, alert and awake Orientation/consciousness: patient oriented x3 [facility] Head: Yes normal to inspection, Yes No palpable skull fracture present, Yes normocephalic and Yes atraumatic Eyes General: appearance normal, both eyes and all related structures Neck Neck: Yes normal visual inspection, Yes full ROM, Yes no lymphadenopathy, Yes no meningeal signs, Yes trachea midline, Yes supple, No anterior neck swelling and No tender Chest Chest palpation & inspection: normal inspection of the chest and normal palpation of entire chest wall Resp Effort & Inspection: normal respiratory effort and able to speak in complete sentences Auscultation: clear to auscultation bilaterally Cardio Jugular venous distension: no JVD Heart sounds: S1 normal heart sound present and S2 normal heart sound present GI Inspection: Yes normal to inspection Palpation (GI): Soft to palpation, not firm, Tenderness to palpation present (GI) in the RLQ (Mild) and periumbilically, no guarding and not rigid General: Yes no CVA tenderness Back/Spine/Pelvis Back: no CVA tenderness and No back tenderness Skin General skin exam: no rashes or lesions noted and elasticity normal Neuro General: patient oriented x3, gait normal, tone normal, moves all extremities, Normal light touch and pain sensation, no meningeal signs, no focal motor deficits, CN's II-XI intact bilaterally and normal sensation to monofilament Extrem General: Yes normal to inspection, Yes full ROM and Yes capillary refill normal Psych Appearance: grossly normal, well kempt and not disheveled Course Course Course Narrative: This is a rapid medical exam performed by Clarice Rich NP: Additional HPI, ROS, PE not included below will be deferred to primary provider. Patient is a 49-year-old female with history of HTN, GERD, cholecystectomy presenting with complaint of RLQ abdominal pain since 08/30. Reports nausea, vomited x 1 this am. Was having constipation but had BM yesterday and today. Plan: labs, UA Medications Administered Discontinued Medications Generic Name Dose Route Start Last Admin Trade Name Freq PRN Reason Stop Dose Admin Acetaminophen 650 mg 09/16/24 22:06 09/16/24 22:13 Acetaminophen 325 Mg Tablet PO 09/16/24 22:07 650 mg ONCE ONE Administration Ketorolac Tromethamine 30 mg 09/16/24 22:06 09/16/24 22:14 Ketorolac Tromethamine 30 Mg/Ml Vial IM 09/16/24 22:07 30 mg ONCE ONE Administration Medical Decision Making Medical Decision Making [facility] Narrative: 49-year-old female with recurrent right-sided abdominal pain without any genitourinary symptoms. Repeat labs were normal. Abdominal CT scan negative for any acute findings. Toradol Tylenol given. Not suspecting any ovarian torsion or abscess. Not suspecting any life-threatening abdominal etiology. CT scan negative for cysts. No need for pelvic ultrasound. Patient informed to follow up with primary care provider. UA negative for urinary tract infection not suspecting urosepsis. Patient explained worrisome signs and informed to return to the ED immediately. Pain resolved after receiving Toradol and Tylenol Differential Diagnosis Differential Diagnoses: The differential diagnosis associated with the presentation includes (Appendicitis, UTI, kidney stones, pyelonephritis) Admission/Observation Consideration of admission/observation: Escalation of care including admission/observation considered Lab Data [facility] Lab Attestation statement: I reviewed the patient's lab results. 09/16/24 15:17 09/16/24 15:17 Labs: Lab Results 09/16/24 09/16/24 Range/Units 15:17 20:11 WBC 10.4 (4.8-10.8) X10*3/uL RBC 4.41 (4.20-5.50) X10*6/uL Hgb 13.7 (12.0-16.0) g/dl Hct 40.7 (37.0-47.0) % MCV 92.3 (80.0-98.0) fL MCH 31.1 (27.0-33.0) pg MCHC 33.7 (31.0-35.0) g/dl RDW 12.5 (11.0-16.0) % Plt Count 232 (160-400) X10*3/uL MPV 9.3 L (9.4-12.3) fL Immature Gran % (Auto) 0.3 (0.0-0.4) % Neut % (Auto) 60.2 (45-73) % Lymph % (Auto) 33.2 (20-40) % Yancey % (Auto) 6.0 (2-11) % Eos % (Auto) 0.0 (0-4) % Baso % (Auto) 0.3 (0-2) % Lymph # (Auto) 3.4 (1.2-4.9) X10*3/uL [place]y # (Auto) 0.6 (0.1-1.2) X10*3/uL Eos # (Auto) 0.0 (0.0-0.4) X10*3/uL Baso # (Auto) 0.0 (0.0-0.2) X10*3/uL Abs Immat Gran (auto) 0.03 (0.00-0.03) X10*3/uL Absolute Neuts (auto) 6.2 (2.0-8.3) x10*3/uL Absolute Nucleated RBC 0.000 (0.0-0.012) X10*3/uL Nucleated RBC % (auto) 0.0 (0.0-0.2) /100WBC Sodium 145 (135-145) mmol/L Potassium 3.9 (3.3-5.1) mmol/L Chloride 107 (96-108) mmol/L Carbon Dioxide 27 (22-29) mmol/L Anion Gap 15 (12-20) BUN 10 (9-16) mg/dL Creatinine 0.75 (0.5-1.4) mg/dL Estim Creat Clear Calc 108.6 Estimated GFR > 60 Random Glucose 123 H (60-115) mg/dL Calcium 9.8 D (8.4-10.2) mg/dL Total Bilirubin 0.3 (0.0-1.0) mg/dL AST 27 (5-31) U/L ALT 36 H (0-31) U/L Alkaline Phosphatase 64 (39-117) U/L Total Protein 7.6 (6.5-8.0) g/dL Albumin 4.5 (3.5-5.0) g/dL Lipase 30 (8-78) U/L Beta HCG, Quant 5 mIU/mL Urine Color Yellow Urine Appearance Clear Urine pH 7.0 (5.0-9.0) Ur Specific [place] <= 1.005 (1.005-1.025) Urine Protein Negative (Neg-Trace) mg/dL Urine Glucose (UA) Negative (Negative) mg/dL Urine Ketones Negative (Negative) mg/dL Urine Blood Negative (Negative) Urine Nitrite Negative (Negative) Ur Leukocyte Esterase Negative (Negative) Independent Interpretation I performed an independent interpretation of an: CT Scan Radiology Impression Discussion of test interpretation with radiology: I have reviewed the radiologist's reading. Independent Historian Clinical information obtained from an independent historian. History obtained from or confirmed by: Other (Patient) Discharge Plan Discharge Clinical Impression: Abdominal pain Patient Disposition: Home, Self-Care Instructions: Abdominal Pain (ED) Additional Instructions: Your labs and imaging were reassuring. Recommend follow-up with your primary care provider. Return to the ED immediately for any worsening abdominal pain, flank pain, fever, chills, vaginal discharge, vaginal bleeding, bloody urine, pain on urination, chest pain, shortness of breath, nausea, vomiting, decrease in appetite, or any other concerning symptoms. Do not take any other NSAIDS such as motrin, ibuprofen, naproxen, alleve, diclofenac, or meloxicam while taking ketorolac. CT abdomen and pelvis without contrast Comparison: CT/SR - CT ABDOMEN PELVIS WO IV CON - 08/30/24 17:47 EST Findings: No consolidation or effusion. Gallbladder is surgically absent. No biliary ductal dilatation. The liver is enlarged and demonstrates low attenuation suggestive of steatosis. Stable 1 cm hypodense lesion in left hepatic lobe of the dome which is too small to be fully characterized. Unenhanced spleen and pancreas are unremarkable. Adrenal glands are normal. No renal or ureteral stones. Stable nonspecific bilateral perinephric stranding and stable hypodense renal lesions bilaterally suggestive of cysts. No bowel obstruction, pneumoperitoneum, or pneumatosis. Normal appendix. No free fluid and no loculated fluid collection. Uterus is small. Urinary bladder within normal limits. No aneurysm of the abdominal aorta. Very small fat containing umbilical hernia. No acute osseous process. Degenerative disc disease at L5-S1. IMPRESSION: 1. No renal or ureteral stones. Normal appendix. 2. Stable nonspecific bilateral perinephric stranding and additional stable findings as described. This document has been electronically signed by: Mague Botello MD on 09/16/2024 21:30:24 Dictated By: Mague Botello MD Signed By: <Electronically signed by Mague Botello MD in OV> Prescriptions: New ketorolac 10 mg tablet 10 mg PO Q6H PRN (Reason: pain) Qty: 20 0RF Rx Instructions: Patient received 30 mg IM in the ED No Action Myrbetriq 50 mg tablet extended release 24 hr 50 mg PO DAILY clozapine 100 mg tablet 200 mg PO BEDTIME lisinopril 40 mg tablet 40 mg PO DAILY clonazepam 1 mg tablet 1 mg PO BID metformin 1,000 mg tablet 1,000 mg PO BIDWM metoprolol succinate 50 mg tablet extended release 24 hr 50 mg PO DAILY Januvia 50 mg tablet 50 mg PO DAILY ondansetron HCl 4 mg tablet 4 mg PO Q8H PRN (Reason: nausea and vomiting) Qty: 14 0RF Patient Comments: PRN med albuterol sulfate [Proventil HFA] 90 mcg/actuation HFA aerosol inhaler 2 puff inhalation Q4-6H PRN (Reason: shortness of breath or wheezing) Qty: 6.7 0RF pantoprazole 40 mg tablet,delayed release (DR/EC) 40 mg PO BID@0630,1630 [place] [facility] [place] [facility] [place]] (Abdominal pain) Ann-Marie Camacho MD [Primary Care Provider] - (Abdominal pain) Stand Alone Forms: Work/School Release Interventions: ED Discharge Assessment Last Done: 09/16/24 22:30 Discharge Date/Time: 09/16/24 22:30 Print Language: Montserratian
[2024-09-16 15:20] LABS: MANUAL DIFF FLAG NO
[2024-09-16 15:24] LABS: Basophils Percent Auto 0.3 % (0-2); Hematocrit 40.7 % (37.0-47.0); Hemoglobin 13.7 g/dl (12.0-16.0); Imm Gran Abs Auto 0.03 X10*3/uL (0.00-0.03); Imm Gran Pct Auto 0.3 % (0.0-0.4); Lymphocytes Absolute Auto 3.4 X10*3/uL (1.2-4.9); Lymphocytes Percent Auto 33.2 % (20-40); Mean Corpuscular HGB Conc 33.7 g/dl (31.0-35.0); Mean Corpuscular Hemoglobin 31.1 pg (27.0-33.0); Mean Corpuscular Volume 92.3 fL (80.0-98.0); Mean Platelet Volume 9.3 fL (9.4-12.3); Monocytes Absolute Auto 0.6 X10*3/uL (0.1-1.2); Neutrophils Absolute Auto 6.2 x10*3/uL (2.0-8.3); Neutrophils Percent Auto 60.2 % (45-73); Platelet Count 232 X10*3/uL (160-400); Red Blood Count 4.41 X10*6/uL (4.20-5.50); Red Cell Distribution Width 12.5 % (11.0-16.0); White Blood Count 10.4 X10*3/uL (4.8-10.8)
[2024-09-16 15:47] LABS: Alanine Aminotransferase 36 U/L (0-31); Albumin Level 4.5 g/dL (3.5-5.0); Alkaline Phosphatase 64 U/L (39-117); Anion Gap 15 (12-20); Aspartate Amino Transferase 27 U/L (5-31); Bilirubin Total 0.3 mg/dL (0.0-1.0); Blood Urea Nitrogen 10 mg/dL (9-16); Calcium 9.8 mg/dL (8.4-10.2); Carbon Dioxide 27 mmol/L (22-29); Chloride 107 mmol/L (96-108); Creatinine Clr Calc Pharmacy 108.6; Estimated Glomerular Filt Rate > 60; Glucose Random 123 mg/dL (60-115); HCG Quantitative 5 mIU/mL; Lipase 30 U/L (8-78); Potassium 3.9 mmol/L (3.3-5.1); Sodium 145 mmol/L (135-145); Total Protein 7.6 g/dL (6.5-8.0)
[2024-09-16 19:38] VITALS: BP 133/73; PULSE 86; RESP 16; TEMP 36.9; O2SAT 96
[2024-09-16 20:18] LABS: Appearance Urine Clear; Color Urine Yellow; Glucose Urine UA Negative (Negative); Leukocyte Esterase Urine Negative (Negative); Nitrite Urine Negative (Negative); Specific Gravity - Urine <= 1.005 (1.005-1.025); Urine Blood Negative (Negative); Urine Ketones Negative (Negative); Urine Protein Negative (Neg-Trace)
[2024-09-16] MEDS: Acetaminophen 325 MG TABLET 650 MG PO (22:13)
[2024-09-16] MEDS: Ketorolac Tromethamine 30 MG/ML VIAL IM (22:14)
[2024-09-16 22:30] VITALS: BP 133/73; PULSE 86; RESP 16; TEMP 36.9; O2SAT 96
== END 2024-09-16 22:30 | disposition home or self-care (01) ==
PROVIDERS: Registered Nurse Emergency; Emergency Provider Emergency Medicine Emergency Medical Services; PCP Internal Medicine
DX: R10.2 Pelvic and perineal pain (principal); R10.31 Right lower quadrant pain; Z79.899 Other long term (current) drug therapy
CPT/HCPCS: 36415; 74176; 80053; 81003; 83690; 84702; 85025; 96372; 99283; 99284; J1885

== ENCOUNTER → 2024-09-16 20:07 | Outpatient (BNV) | payer BC, MEDICARE, SELFPAY | PROVIDERS: Emergency Provider Emergency Medicine Emergency Medical Services; PCP Internal Medicine; Visit Provider Specialist | DX: R10.31 Right lower quadrant pain (principal) | CPT/HCPCS: 74176 ==

== ENCOUNTER 2024-10-07 11:49 | Outpatient (REF) | payer BC, MEDICARE, SELFPAY ==
[2024-10-07 12:06] LABS: MANUAL DIFF FLAG NO
[2024-10-07 12:24] LABS: Basophils Percent Auto 0.2 % (0-2); Hematocrit 41.1 % (37.0-47.0); Hemoglobin 13.3 g/dl (12.0-16.0); Imm Gran Abs Auto 0.03 X10*3/uL (0.00-0.03); Imm Gran Pct Auto 0.3 % (0.0-0.4); Lymphocytes Absolute Auto 2.3 X10*3/uL (1.2-4.9); Lymphocytes Percent Auto 24.9 % (20-40); Mean Corpuscular HGB Conc 32.4 g/dl (31.0-35.0); Mean Corpuscular Volume 92.6 fL (80.0-98.0); Monocytes Absolute Auto 0.4 X10*3/uL (0.1-1.2); Monocytes Percent Auto 4.2 % (2-11); Neutrophils Absolute Auto 6.6 x10*3/uL (2.0-8.3); Neutrophils Percent Auto 70.4 % (45-73); Platelet Count 220 X10*3/uL (160-400); Red Blood Count 4.44 X10*6/uL (4.20-5.50); Red Cell Distribution Width 12.5 % (11.0-16.0); White Blood Count 9.4 X10*3/uL (4.8-10.8)
--- OUTSIDE RECORDS SUMMARY | 2024-10-07 13:41 | XMS_ITS | Encounter Summary ---
Author Organization [employer] Address [address] [place] [address] Care Team Providers Care Lineman Apprentice Name Role Phone Ann-Marie Camacho MD Primary Care Provider [phone] Encounter Details Date Type Department Care Team (Late st Contact Info) Description 09/07/2024 Orders Only GENERIC EXTERNAL DATA DEPARTMENT Provider, Generic External Data Social History Tobacco Use Types Packs/Day Years Used Date Smoking Tobacco: Every Day Cigarettes Passive Smoke Exposure: Current Smokeless Tobacco: Current Alcohol Use Standard Drinks/Week Comments Never 0 (1 standard drink = 0.6 oz pur e alcohol) Depression Answer Date Recorded Patient Health Questionnaire-9 Score 6 09/03/2022 Housing Stability Answer Date Recorded What is your housing situation today? I have kat paul 05/12/[address] you li ve. Do you have problems with any of the following? None of the above 05/12/2024 Food Insecurity Answer Date Recorded Within the past 12 months, y ou worried that your food would run out before you got money to buy more: Never True 05/12/2024 Within the past 12 months,th e food you bought just didn't last and you didn't have enough money to get more: Never True Transportation Answer Date Recorded In the past 12 months, has l ack of transportation kept you from medical appts, meetings, work or from getting things needed for daily living? No 05/12/2024 Utilities Answer Date Recorded In the past 12 months, has t he electric, gas, oil or water company threatened to shut off services in your home? No 05/12/2024 Depression Answer Date Recorded Patient Health Questionnaire-2 Score 1 09/03/2022 Internet Access Answer Date Recorded Internet Access Q1 Yes 05/12/2024 Internet Access Q2 Not on file 05/12/2024 Comments No Sex and Gender Information Value Date Recorded Sex Assigned at Female 06/25/2022 10:38 AM EDT Legal Sex Female 10:38 AM EDT Gender Identity Female 06/25/2022 10:38 AM EDT Sexual Orientation Don't know 06/25/2022 10 :38 AM EDT documented as of this encounter Plan of Treatment Not on file documented as of this encounter Procedures Procedure Name Priority Date/Time Associated Diagnosis Comments CBC WITH AUTO DIFFERENTIAL Routine 09/07/2024 12:39 PM EST documented in this encounter Results * (ABNORMAL) CBC auto differential (09/07/2024 12:39 PM EST) White Blood Count 11.9(H) 4.8 - 10.8 X10*3/uL [facility] Red Blood Count 4.24 4.20 - 5.50 X10*6/uL [facility] Hemoglobin 12.9 12.0 - 16.0 g/dl [facility] Hematocrit 39.0 37.0 - 47.0 % [facility] Mean Corpuscular Volume 92.0 80.0 - 98.0 fL [facility] Mean Corpuscular Hemoglobin 30.4 27.0 - 33.0 pg [facility] Mean Corpuscular HGB Conc 33.1 31.0 - 35.0 g/dl [facility] Red Cell Distribution Width 12.6 11.0 - 16.0 % [facility] Platelet Count 226 160 - 400 X10*3/uL [facility] Mean Platelet Volume 9.5 9.4 - 12.3 fL [facility] Neutrophils Percent Auto 72.1 45 - 73 % [facility] Imm Gran Pct Auto 0.3 0.0 - 0.4 % [facility] Lymphocytes Percent Auto 22.9 20 - 40 % [facility] Monocytes Percent Auto 4.5 2 - 11 % [facility] Eosinophils Percent Auto 0.0 0 - 4 % [facility] Basophils Percent Auto 0.2 0 - 2 % [facility] NRBC Pct Auto 0.0 0.0 - 0.2 /100WBC [facility] Neutrophils Absolute Auto 8.6(H) 2.0 - 8.3 x10*3/uL [facility] Imm Gran Abs Auto 0.04(H) 0.00 - 0.03 X10*3/uL [facility] Lymphocytes Absolute Auto 2.7 1.2 - 4.9 X10*3/uL [facility] Monocytes Absolute Auto 0.5 0.1 - 1.2 X10*3/uL [facility] Eosinophils Absolute Auto 0.0 0.0 - 0.4 X10*3/uL [facility] Basophils Absolute Auto 0.0 0.0 - 0.2 X10*3/uL [facility] NRBC Abs Auto 0.000 0.0 - 0.012 X10*3/uL [facility] 09/07/2024 12:3 9 PM EST 09/07/2024 12:39 PM EST us Generic External Data Provider LAB BLOOD ORDERAB LES Final Result Performing Organization Address City/State/[facility] Co de Phone Number [facility] [address] [place] [address] [phone] documented in this encounter Visit Diagnoses Not on filedocumented in this encounter Additional Health Concerns Assessment Noted Time PHQ-9 Depression Total Score: 6 09/03/19 23 1:13 PM EST documented as of this encounter Care Teams Lineman Apprentice Relationship Specialty Start Date End Date Ann-Marie Camacho MD [address] [place] [phone] PCP - General Internal Medicine 02/23/21 documented as of this encounter
--- OUTSIDE RECORDS SUMMARY | 2024-10-07 13:41 | XMS_ITS | Clinical Summary ---
Author Organization [facility] [place] [address] Phone Care Team Providers Care Pumpman Name Role Phone Don Hudson MD Primary Care Provider Unavail able Medications pantoprazole (PROTONIX) 40 mg EC tabletIndication s:GERD (gastroesophagea l reflux disease) TAKE 1 TABLET BY MOUTH TWICE DAILY 180 tablet 3 08/24/2024 Active Social History Tobacco Use Types Packs/Day Years Used Date Smoking Tobacco: Never Assessed Comments Unknown Sex and Gender Information Value Date Recorded Sex Assigned at Female 06/24/2024 11:24 AM EDT Legal Sex Female 1:08 PM EST Gender Identity Female 06/24/2024 11:24 AM EDT Sexual Orientation Straight 06/24/2024 11 :24 AM EDT Plan of Treatment Health Maintenance Due Date Last Done Comments Breast Cancer Screening 1975 DTaP,Tdap,and Td Vaccines (1 - Tdap) 1982 Hepatitis B Vaccines (1 of 3 - 19+ 3-dose series) 1994 Cervical Cancer Screening: P ap Smear 1996 Colorectal Cancer Screening: Colonoscopy 07/24/2022 Depression Screening 07/24/2022 HIV Screening 07/24/2022 Hepatitis C Screening 07/24/2022 Social Influencers of Health Screening 07/24/2022 COVID-19 Vaccine ( - 2023-2 5 season) 2024 Influenza Vaccine (#1) 2024 HIB Vaccines Aged Out No longer eligi ble based on patient's age to complete this topic HPV Vaccines Aged Out No longer eligi ble based on patient's age to complete this topic Hepatitis A Vaccines Aged Out No long er eligible based on patient's age to complete this topic IPV Vaccines Aged Out No longer eligi ble based on patient's age to complete this topic MMR Vaccines Aged Out No longer eligi ble based on patient's age to complete this topic Meningococcal ACWY Vaccine Aged Out N o longer eligible based on patient's age to complete this topic Meningococcal B Vacine Aged Out No lo nger eligible based on patient's age to complete this topic Pneumococcal Vaccine: Pediat rics (0 to 5 Years) and At-Risk Patients (6 to 64 Years) Aged Out No longer eligible b ased on patient's age to complete this topic RSV Immunization Patients Un thea 20 months Aged Out No longer eligible b ased on patient's age to complete this topic Varicella Vaccines Aged Out No longer eligible based on patient's age to complete this topic Care Teams Pumpman Relationship Specialty Start Date End Date Don Hudson MD PCP - General 03/30/02
--- OUTSIDE RECORDS SUMMARY | 2024-10-07 13:41 | XMS_ITS | Clinical Summary ---
Author Organization [employer] Address [address] [place] [address] Care Team Providers Care Efficiency Miner Name Role Phone Ann-Marie Camacho MD Primary Care Provider [phone] Allergies Active Allergy Reactions Criticality Noted Date Comments Wound Dressings 08/15/2022 Other reaction(s): adhesive on patches-skin irritations Carbamazepine 01/02/2022 Other Reaction(s): MIGRAINES Cariprazine 01/02/2022 Other Reaction(s): LEG CRAMPS Cynara Scolymus (Artichoke) Rash Low 08/15/2022 artichoke Fentanyl Rash Low 03/20/2023 Lamotrigine Rash Low 01/02/2022 [place] Other High 01/02/2022 Other reaction(s): bad reaction Other Reaction(s): tremor and falls Penicillins Shortness of breath,Anaphylaxis High 02/23/2021 Other reaction(s): can't breathe, Difficulty breathing, Vomiting Wound Dressing Adhesive Rash Low 03/20/2023 Medications * This document contains information received from the source organization and may not represent a complete record from that organization. butalbital-acetami nophen-caffeine (Fioricet) 50-300-40 MG capsule TAKE 1 CAPSULE BY MOUTH EVERY 6 HOURS NEEDED FOR HEADACHE 2 Active clonazePAM (KlonoPIN) 1 MG tablet TAKE 1 TABLET BY MOUTH TWICE DAILY NEEDED. MAY USE 1 ADDITIONAL FOR ANXIETY. 30 DAY SUPPLY 2 Active cloZAPine (Clozaril) 100 MG tablet take 1 tablet and a half by oral route every bedtime 1 Active glucose 4 g chewable tablet 2 Active Linzess 290 MCG capsule Take 290 mcg by mouth in the morning. 2 Active Myrbetriq 50 MG 24 hr tablet Take 50 mg by mouth in the morning. 2 Active naratriptan (Amerge) 2.5 MG tablet TAKE 1 TABLET BY MOUTH DAILY NEEDED FOR MIGRAINE HEADACHE. MAY REPEAT DOSE 1 TIME IN 4 HOURS 2 Active ondansetron (Zofran) 4 MG tablet Take 1 tablet by mouth every 8 (eight) hours. 2 Active pantoprazole (ProtoNix) 40 MG EC tablet 2 Active SITagliptin (Januvia) 100 MG tablet Take 100 mg by mouth. Active tiZANidine (Zanaflex) 4 MG tabletIndications: Acute pain of right shoulder Take 1 tablet (4 mg) by mouth every 6 (six) hours if needed for muscle spasms for up to 10 days. 30 tablet 3 Active baclofen (Lioresal) 10 MG tabletIndications: Muscle spasm Take 1 tablet (10 mg) by mouth 3 times daily for 10 days. 30 tablet 3 Active Januvia 50 MG tablet TAKE 1 TABLET BY MOUTH EVERY DAY 30 tablet 11 4 Active lisinopril 40 MG tablet TAKE 1 TABLET BY MOUTH EVERY DAY 30 tablet 11 4 Active lisinopril 40 MG tablet TAKE 1 TABLET BY MOUTH EVERY DAY 30 tablet 11 4 Active albuterol 108 (90 Base) MCG/ACT inhalerIndications :Bronchitis Inhale 2 puffs every 6 (six) hours if needed for wheezing. 18 g 4 Active cetirizine (ZyrTEC) 10 MG tablet Take 1 tablet (10 mg) by mouth Once per day. 30 tablet 5 4 Active nicotine (Nicoderm CQ) 21 MG/24HR patch Place 1 patch on the skin 1 (one) time each day at the same time. 30 patch 3 4 Active Beclomethasone Diprop HFA (Qvar) 80 MCG/ACT inhaler Inhale 1 Inhalation. in the morning and at bedtime. Rinse mouth with water after use to reduce aftertaste and incidence of candidiasis. Do not swallow. 10.6 g 1 4 Active fluconazole (Diflucan) 150 MG tabletIndications: PV (pityriasis versicolor) 2 tabs once a week x 2 weeks. 4 tablet 4 Active metFORMIN (Glucophage) 1000 MG tabletIndications: Type 2 diabetes mellitus without complication, without long-term current use of insulin ([facility]) TAKE 1 TABLET(1000 MG) BY MOUTH EVERY 12 HOURS 180 tablet 1 4 Active metoprolol succinate XL (Toprol XL) 100 MG 24 hr tabletIndications: Hypertension, unspecified type Take 1 tablet (100 mg) by mouth Once per day. Do not crush or chew. 30 tablet 11 4 025 Active rosuvastatin (Crestor) 40 MG tabletIndications: Hyperlipidemia, unspecified hyperlipidemia type Take 1 tablet (40 mg) by mouth Once per day. 90 tablet 1 4 Active Active Problems Problem Noted Date Diagnosed Date Overactive bladder 08/31/2024 Cervical cancer screening 07/14/2024 Assessment & Plan (07/14/2024 10:43 AM EST): 49 y.o. here for cervical cancer screening. Reports prior abnormals with +hrHPV Will continue monitoring following ASCCP guidelines. Anxiety disorder, unspecified 05/09/2023 Assessment & Plan (05/09/2023 9:06 AM EDT): Assessment: Patient with a recent visit to the ED in the context of increased in symptoms after running out of her medication for one day. Patient is connected to a therapist and psychiatrist thru [facility]. At this time Nani Sears meets criteria for Visit Diagnoses: Problem List Items Addressed This Visit Other Major depressive disorder Anxiety disorder, unspecified Patient ready to address current needs Yes Patient has services in place. Strengths include her usage of coping skills PLAN: 1. Follow up with [facility]: Not recommended for follow-up 2. Patient goal is for symptoms to not increase 3. Behavioral Recommendations a. Patient will comply with medication and make sure she does not run out b. Patient will continue attending therapy and psychiatry appointments Hospital discharge follow-up 04/01/2023 Assessment & Plan (04/01/2023 10:20 AM EDT): Patient visited er on 03/15, found with gastroenteritis, she has hx of IBS, not taking linzess due to side effects, patient denied fever/chills, nausea/vomiting, she still experiences episode of abdominal pain that comes and goes, on examination no distention, no tenderness, bowel sound were normal, will prescribe dicyclomine, follow up with GI (she will call), reviewed red flags to revisit er. Acute pain of right shoulder 08/21/2022 Assessment & Plan (08/21/2022 5:03 PM EST): Trapezial spasms, normal passive ROM, unable to provide active ROM given pain, will trial toradol IM and muscle relaxer and strongly encouraged to followup with her PCP. Elevated BP could be secondary to pain, needs monitoring and if not controlled needs med adjustment. Abscess 08/15/2022 Benign essential hypertension 08/15/2022 Bipolar disorder 08/15/2022 Chronic back pain 08/15/2022 Type 2 diabetes mellitus 08/15/2022 Hyperlipidemia 08/15/2022 Assessment & Plan (07/14/2024 10:46 AM EST): Patient with recent lipids with severely elevated triglycerides reports side effects (cramps) with atorvastatin, will trial rosuvastatin. She has a f.up with PCP. Discussed change with PCP and he approved Hypertension 08/15/2022 Assessment & Plan (07/14/2024 10:47 AM EST): Patient reports she didn't take her medications today for her BP. Target < 130/80 mmHg. She already has f/up with PCP Irritable bowel syndrome 08/15/2022 Major depressive disorder 08/15/2022 Migraine headache 08/15/2022 Obstructive sleep apnea syndrome 08/15/2022 Polycystic ovary syndrome 08/15/2022 Psychogenic pain 08/15/2022 Severe obesity 08/15/2022 Somatization disorder 08/15/2022 Disease due to severe acute respiratory syndrome coronavirus 2 (SARS-CoV-2) 02/06/2022 Overview (08/15/2022): Problem added by Discern Expert Complex renal cyst 11/21/2021 Acute pancreatitis 03/23/2021 Gastroesophageal reflux disease 03/05/2021 Encounters Date Type Department Care Team Description 10/06/2024 11:30 AM EST Office Visit [facility] [address] [place] [address] Cheyenne Beltrán DDLoraine 10/06/2024 Telephone [facility] [address] [place] [address] Cheyenne Beltrán DDS 09/16/2024 Orders Only GENERIC EXTERNAL DATA DEPARTMENT Provider, Generic External Data 09/07/2024 Orders Only GENERIC EXTERNAL DATA DEPARTMENT Provider, Generic External Data 08/31/2024 11:30 AM EST Office Visit [facility] [address] [place] [address] Ann-Marie Camacho MD Benign essential hypertension (Primary Dx); Type 2 diabetes mellitus without complication, without long-term current use of insulin ([facility]); Overactive bladder 08/31/2024 Travel 08/30/2024 Orders Only GENERIC EXTERNAL DATA DEPARTMENT Provider, Generic External Data 08/24/2024 Travel 08/21/2024 Patient Outreach [facility] [address] [place] [address] Ann-Marie Camacho MD Pre-visit Planning (SDOH was completed on 05/12/2024) 08/05/2024 Orders Only GENERIC EXTERNAL DATA DEPARTMENT Provider, Generic External Data 07/14/2024 10:00 AM EST Procedure Visit [facility] [address] [place] [address] Dulce Marvin MD Cervical cancer screening (Primary Dx); Hyperlipidemia, unspecified hyperlipidemia type; Hypertension, unspecified type 07/14/2024 Travel 07/14/2024 Telephone [facility] [address] [place] [address] Ora Hugo, RN Results 07/13/2024 Orders Only [facility] [address] [place] [address] Ann-Marie Camacho MD Pure hypercholesterolemia (Primary Dx) 07/13/2024 Orders Only GENERIC EXTERNAL DATA DEPARTMENT Provider, Generic External Data from Last 3 Months Immunizations Name Administration Dates Next Due Influenza, seasonal, injectable, preservative fr ee 06/26/2024 Moderna Covid-19 Vaccine 12+ 01/12/2021,12/15/19 21 Pneumococcal Conjugate PCV 20 06/26/2024 Tdap 05/10/2020 Family History Medical History Relation Name Comments bladder cancer Mother's Sister Relation Name Status Comments Mother's Sister Social History Tobacco Use Types Packs/Day Years Used Date Smoking Tobacco: Every Day Cigarettes Passive Smoke Exposure: Current Smokeless Tobacco: Current Tobacco Cessation:Ready to Q uit: Not Asked; Counseling Given: Not Answered Alcohol Use Standard Drinks/Week Comments Never 0 (1 standard drink = 0.6 oz pur e alcohol) Depression Answer Date Recorded Patient Health Questionnaire-9 Score 6 09/03/2022 Housing Stability Answer Date Recorded What is your housing situation today? I have kat miller 05/12/[address] you li [...] Don't know 06/25/2022 10 :38 AM EDT Last Filed Vital Signs Vital Sign Reading Time Taken Comments Blood Pressure 153/86 08/31/2024 11:54 AM EST Pulse 91 08/31/2024 11:54 AM EST Temperature 36.7 ??C (98 ??F) 08/31/2024 11:54 AM EST Respiratory Rate 20 08/31/2024 11:54 AM EST Oxygen Saturation 94% 08/31/2024 11:54 AM EST Inhaled Oxygen Concentration - - Weight 138 kg (304 lb) 08/31/2024 11:54 AM EST Height 172 cm (5' 7.72 ) 08/31/2024 11:54 AM EST Body Mass Index 46.61 08/31/2024 11:54 AM EST Plan of Treatment Health Maintenance Due Date Last Done Comments CT Colonography 1975 Dental Prophylaxis 1975 FIT DNA/Cologuard 1975 FIT 1975 FOBT 1975 HIV Screening 1975 Sigmoidoscopy 1975 Eye Exam 1985 Alcohol/Substance Use Screening 1987 Family Planning (PISQ) 1990 Diabetes: Urine Protein Screening 1994 Hepatitis B Vaccines (1 of 3 - 19+ 3-dose series) 1994 HPV/Cotest 2005 Dental Oral Exam 04/27/2022 10/24/2021 Diabetes: Foot Exam 05/01/2023 Depression Screening 09/03/2023 09/03/2022, 09/03/19 23 COVID-19 Vaccine ( season) 2024 01/12/2021, 12/14/2020 Dental X-Ray: Full Mouth 10/25/2024 10/24/2021 Diabetes: Hemoglobin A1C 11/29/2024 025, 05/12/2024, 01/16/2024, Additional history exists Zoster Vaccines (1 of 2) 2025 SDOH Screening 05/12/2025 05/12/2024 Lipid Panel 07/13/2025 07/13/2024, 01/12/2022 Tobacco Screening 10/06/2025 10/06/2024 Dental X-Ray: Bitewings 10/07/2025 10/06/2024, 10/24 Mammogram 07/03/2026 07/03/2024 Cervical Cancer Screening 07/14/2027 Pap Smear 07/14/2027 07/14/2024, 11/16/2022 Colonoscopy 09/28/2029 09/28/2019 Colorectal Cancer Screening 09/28/2029 DTaP/Tdap/Td Vaccines (2 - Td or Tdap) 05/10/2030 05/10/2020 RSV Patients and Patients Aged 60 years or older (1 - 1-dose 75+ series) 2050 Influenza Vaccine Completed 06/26/2024 Pneumococcal Vaccine: Pediatrics (0 to 5 Years) and At-Risk Patients (6 to 49) Years) Completed 06/26/2024 Hepatitis C Screening Completed 07/13/2024 HIB Vaccines Aged Out No longer eligi [...] patient's age to complete this topic Meningococcal Vaccine Aged Out No frenando josh eligible based on patient's age to complete this topic RSV under 20 months Aged Out No longe r eligible based on patient's age to complete this topic Rotavirus Vaccines Aged Out No longer eligible based on patient's age to complete this topic Procedures Procedure Name Priority Date/Time Associated Diagnosis Comments BITEWING - SINGLE RADIOGRAPHIC IMAGE Routine 10/06/2024 11:30 AM EST INTRAORAL - PERIAPICAL FIRST RADIOGRAPHIC IMAGE Routine 10/06/2024 11:30 AM EST LIMITED ORAL EVALUATION - PROBLEM FOCUSED Routine 10/06/2024 11:[address] ABDOMEN PELVIS WO CONTRAST Routine 09/16/2024 9:30 PM EST URINALYSIS WITH REFLEX MICROSCOPIC Routine 09/16/2024 8:11 PM EST HCG, TOTAL, QN Routine 09/16/2024 3:17 PM EST LIPASE Routine 09/16/2024 3:17 PM EST COMPREHENSIVE METABOLIC PANEL Routine 09/16/2024 3:17 PM EST CBC WITH AUTO DIFFERENTIAL Routine 09/16/2024 3:17 PM EST CBC WITH AUTO DIFFERENTIAL Routine 09/07/2024 12:39 PM EST POCT GLUCOSE Routine 08/31/2024 1:19 PM EST Type 2 diabetes mellitus without complication, without long-term current use of insulin (CMS/HCC) POCT GLYCATED HEMOGLOBIN, TOTAL Routine 08/31/2024 1:18 PM EST Type 2 diabetes mellitus without complication, without long-term current use of insulin (CMS/HCC) CT ABDOMEN PELVIS WO CONTRAST Routine 08/30/2024 6:50 PM EST HCG, TOTAL, QN Routine 08/30/2024 12:50 PM EST COMPREHENSIVE METABOLIC PANEL Routine 08/30/2024 12:50 PM EST URINALYSIS, COMPLETE, WITH REFLEX TO CULTURE Routine 08/30/2024 12:50 PM EST HCG, QL, URINE Routine 08/30/2024 12:50 PM EST CBC WITH AUTO DIFFERENTIAL Routine 08/30/2024 12:50 PM EST URINALYSIS WITH REFLEX MICROSCOPIC Routine 08/05/2024 4:51 PM EST DRUG MONITOR, PANEL 1, SCREEN, URINE Routine 08/05/2024 4:51 PM EST HIGH SENSITIVITY TROPONIN I Routine 08/05/2024 4:32 PM EST ETHANOL Routine 08/05/2024 4:32 PM EST LIPASE Routine 08/05/2024 4:32 PM EST MAGNESIUM Routine 08/05/2024 4:32 PM EST COMPREHENSIVE METABOLIC PANEL Routine 08/05/2024 4:32 PM EST ACETAMINOPHEN LEVEL Routine 08/05/2024 4 :32 PM EST SALICYLATE Routine 08/05/2024 4:32 PM EST CBC WITH AUTO DIFFERENTIAL Routine 08/05/2024 4:32 PM EST SARS COV2/INFLUENZA A/B AND RSV RNA QL NAAT Routine 08/05/2024 4:32 PM EST XR CHEST 1 VIEW Routine 08/05/2024 2:11 PM EST PAP SMEAR Routine 07/14/2024 10:44 AM EST Cervical cancer screening SLIDE REVIEW Routine 07/13/2024 11:36 AM EST CBC WITH AUTO DIFFERENTIAL Routine 07/13/2024 11:36 AM EST LIPID PANEL, STANDARD Routine 07/13/2024 11:36 AM EST Hypertension, unspecified type HEPATITIS C AB W/REFL TO HCV RNA, QN, PCR Routine 07/13/2024 11:36 AM EST Type 2 diabetes mellitus without complication, without long-term current use of insulin (CMS/HCC) Hypertension, unspecified type Pyodermia BI MAMMOGRAM SCREENING TOMOSYNTHESIS BILATERAL Routine 07/03/2024 Encounter for screening mammogram for malignant neoplasm of breast DIAGNOSTIC - DIAGNOSTIC IMAGING - INTRAORAL - COMPREHENSIVE SERIES OF RADIOGRAPHIC IMAGES Routine 10/24/2021 12:00 AM EST COMPREHENSIVE ORAL EVALUATION - NEW OR ESTABLISHED PATIENT Routine 10/24/2021 12:00 AM EST COLONOSCOPY Routine 09/28/2019 from Last 3 Months or Most Recently Relevant to Health Maintenance Results * CT Abdomen Pelvis w/o Contrast (09/16/2024 9:30 PM EST) Only the most recent of2 resultswithin the time period is included. Anatomical Region Laterality Modality Body, Pelvis, Abdomen Computed T omography 09/16/2024 9:30 PM EST Narrative 09/16/2024 9:32 PM EST ? [facility] ?[address] ?[place], [place] [address] ? CT Scan Report ? Signed ? Patient: Orion,Nani A ?MR#: [id number] ?? [id number] ? : 1975 ?Acct:[id number] ? Age/Sex: 49 / F ?ADM Date: 09/16/24 ? Loc: HO.ED ? Attending Dr: ? Ordering Physician: Moose Ponce ?? Date of Service: 09/16/24 ?? Procedure(s): CT abdomen pelvis wo IV con ?? Accession Number(s): [id number] ? cc: Moose Ponce; Ann-Marie Camacho MD ? Report Number: ?? [id number]: Total DLP = 1159.00 mGy-cm ? CLINICAL HISTORY: RLQ pain ? CT abdomen and pelvis without contrast ? Comparison: CT/SR - CT ABDOMEN PELVIS WO IV CON - 08/30/24 17:47 EST ? Findings: ?? No consolidation or effusion. ? Gallbladder is surgically absent. No biliary ductal dilatation. ?? The liver is enlarged and demonstrates low attenuation suggestive of ?? steatosis. Stable 1 cm hypodense lesion in left hepatic lobe of the dome ?? which is too small to be fully characterized. ?? Unenhanced spleen and pancreas are unremarkable. Adrenal glands are ?? normal. ?? No renal or ureteral stones. Stable nonspecific bilateral perinephric ?? stranding and stable hypodense renal lesions bilaterally suggestive of ?? cysts. ? No bowel obstruction, pneumoperitoneum, or pneumatosis. ?? Normal appendix. No free fluid and no loculated fluid collection. ?? Uterus is small. Urinary bladder within normal limits. No aneurysm of the ?? abdominal aorta. Very small fat containing umbilical hernia. ?? No acute osseous process. Degenerative disc disease at L5-S1. ? IMPRESSION: ?? 1. No renal or ureteral stones. Normal appendix. ?? 2. Stable nonspecific bilateral perinephric stranding and additional ?? stable findings as described. ? This document has been electronically signed by: Mague Botello MD on ?? 09/16/2024 21:30:24 ? Dictated By: ?Mague Botello MD ? Signed By: ?<Electronically signed by Mague Botello MD in OV> ? 09/16/242130 ? DD/ 29 ? TD/TT: 09/16/24 2130 ? Cosmetics Supervisor: ? Procedure Note Donotuseinterpreter, Image - 09/16/[address] [place] [address] [address] Scan Report Signed Patient: Nani Sears AMR#: [id number] : 1975Acct:[id number] Age/Sex: 49 / FADM Date: 09/16/24 Loc: HO.ED Attending Dr: Ordering Physician: Moose Ponce Date of Service: 09/16/24 Procedure(s): CT abdomen pelvis wo IV con Accession Number(s): [id number] cc: Moose Ponce; Ann-Marie Camacho MD Report Number: [id number]: Total DLP = 1159.00 mGy-cm CLINICAL HISTORY: RLQ pain CT abdomen and pelvis without contrast Comparison: CT/SR - CT ABDOMEN PELVIS WO IV CON - 08/30/24 17:47 EST Findings: No consolidation or effusion. Gallbladder is surgically absent. No biliary ductal dilatation. The liver is enlarged and demonstrates low attenuation suggestive of steatosis. Stable 1 cm hypodense lesion in left hepatic lobe of the dome which is too small to be fully characterized. Unenhanced spleen and pancreas are unremarkable. Adrenal glands are normal. No renal or ureteral stones. Stable nonspecific bilateral perinephric stranding and stable hypodense renal lesions bilaterally suggestive of cysts. No bowel obstruction, pneumoperitoneum, or pneumatosis. Normal appendix. No free fluid and no loculated fluid collection. Uterus is small. Urinary bladder within normal limits. No aneurysm of the abdominal aorta. Very small fat containing umbilical hernia. No acute osseous process. Degenerative disc disease at L5-S1. IMPRESSION: 1. No renal or ureteral stones. Normal appendix. 2. Stable nonspecific bilateral perinephric stranding and additional stable findings as described. This document has been electronically signed by: Mague Botello MD on 09/16/2024 21:30:24 Dictated By: Mague Botello MD Signed By: <Electronically signed by Mague Botello MD in OV> 09/16/242130 DD/ 29 TD/TT: 09/16/242129 Cosmetics Supervisor: [facility] External Provider IMG CT PROCEDURES Edited Result - Final * Urinalysis w/reflex microscopic (09/16/2024 8:11 PM EST) Only the most recent of2 resultswithin the time period is included. Color Urine Yellow [facility] Appearance Urine Clear [facility] PH 7.0 5.0 - 9.0 [facility] Glucose Urine UA Negative Negative mg/dL [facility] Urine Blood Negative Negative [facility] Specific Ross - Urine <=1.005 1.005 - 1.025 [facility] Urine Protein Negative Neg-Trace mg/dL [facility] Urine Ketones Negative Negative mg/dL [facility] Nitrite Urine Negative Negative [facility] Leukocyte Esterase Urine Negative Negative [facility] 09/16/2024 8:11 PM EST 09/16/2024 8:14 PM EST Narrative [facility] - 09/16/2024 8:20 PM EST [id number], Clean Catch Generic External Data Provider LAB URINE ORDERAB LES Final Result [facility] [address] [place] [phone] * (ABNORMAL) CBC auto differential (09/16/2024 3:17 PM EST) Only the most recent of5 resultswithin the time period is included. White Blood Count 10.4 4.8 - 10.8 X10*3/uL [facility] Red Blood Count 4.41 4.20 - 5.50 X10*6/uL [facility] Hemoglobin 13.7 12.0 - 16.0 g/dl [facility] Hematocrit 40.7 37.0 - 47.0 % [facility] Mean Corpuscular Volume 92.3 80.0 - 98.0 fL [facility] Mean Corpuscular Hemoglobin 31.1 27.0 - 33.0 pg [facility] Mean Corpuscular HGB Conc 33.7 31.0 - 35.0 g/dl [facility] Red Cell Distribution Width 12.5 11.0 - 16.0 % [facility] Platelet Count 232 160 - 400 X10*3/uL [facility] Mean Platelet Volume 9.3(L) 9.4 - 12.3 fL [facility] Neutrophils Percent Auto 60.2 45 - 73 % [facility] Imm Gran Pct Auto 0.3 0.0 - 0.4 % [facility] Lymphocytes Percent Auto 33.2 20 - 40 % [facility] Monocytes Percent Auto 6.0 2 - 11 % [facility] Eosinophils Percent Auto 0.0 0 - 4 % [facility] Basophils Percent Auto 0.3 0 - 2 % [facility] NRBC Pct Auto 0.0 0.0 - 0.2 /100WBC [facility] Neutrophils Absolute Auto 6.2 2.0 - 8.3 x10*3/uL [facility] Imm Gran Abs Auto 0.03 0.00 - 0.03 X10*3/uL [facility] Lymphocytes Absolute Auto 3.4 1.2 - 4.9 X10*3/uL [facility] Monocytes Absolute Auto 0.6 0.1 - 1.2 X10*3/uL [facility] Eosinophils Absolute Auto 0.0 0.0 - 0.4 X10*3/uL [facility] Basophils Absolute Auto 0.0 0.0 - 0.2 X10*3/uL [facility] NRBC Abs Auto 0.000 0.0 - 0.012 X10*3/uL [facility] 09/16/2024 3:17 PM EST 09/16/2024 3:19 PM EST us Generic External Data Provider LAB BLOOD ORDERAB LES Final Result Performing Organization Address [facility] Co de Phone Number [facility] [address] [place] [address] [phone] * hCG, Total, Quantitative (09/16/2024 3:17 PM EST) Only the most recent of2 resultswithin the time period is included. HCG Quantitative 5 mIU/mL [facility] Comment:Weeks post LMP Appro ximate hCG(Last Menstrual Period) Range (mIU/ml)3 - 4 weeks 9 - 1304 - 5 weeks 75 - 2,6005 - 6 weeks 850 - 20,8006 - 7 weeks 4000 - 100,2007 - 12 weeks 11,500 - 289,61172 - 16 weeks 18,300 - 137,96666 - 29 weeks (2nd trimester) 1,400 - 53,56881 - 41 weeks (3rd trimester) 940 - 60,000The [place] B- hCG assay is used for the early detection ofpregnancy; it cannot be used to diagnose any conditionunrelated to . If a B-hCG level is not supportedby the clinical evidence, results should be confirmed by analternative method (qualitative urine hCG, for example). 09/16/2024 3:17 PM EST 09/16/2024 3:19 PM EST Generic External Data Provider LAB BLOOD ORDERAB LES Final Result Performing Organization Address [facility] Co de Phone Number [facility] [address] [place] [address] [phone] * Lipase (09/16/2024 3:17 PM EST) Only the most recent of2 resultswithin the time period is included. Lipase 30 8 - 78 U/L [facility] 09/16/2024 3:17 PM EST 09/16/2024 3:19 PM EST Generic External Data Provider LAB BLOOD ORDERAB LES Final Result Performing Organization Address [facility] Co de Phone Number [facility] [address] [place] [address] [phone] * (ABNORMAL) Comprehensive Metabolic Panel (09/16/2024 3:17 PM EST) Only the most recent of3 resultswithin the time period is included. Sodium 145 135 - 145 mmol/L [facility] Potassium 3.9 3.3 - 5.1 mmol/L [facility] Chloride 107 96 - 108 mmol/L [facility] Carbon Dioxide 27 22 - 29 mmol/L [facility] Anion Gap 15 12 - 20 [facility] Urea Nitrogen (BUN) 10 9 - 16 mg/dL [facility] Creatinine, Serum 0.75 0.5 - 1.4 mg/dL [facility] Creatinine Clr Calc Pharmacy 108.6 [facility] Comment:Provided height and weight: 170.18 cm,97.2 kg.eGFR (calculated from the MDRD study equation) and eCrCl(calculated from the Cockcroft-Gault equation) are based ondifferent parameters and may not yield comparable results.If eCrCl result is absurd, please check patient'sheight/weight. Estimated Glomerular Filt Rate >60 [facility] Comment:Chronic Kidney Disea se: Estimated GFR < 60 mL/min/1.01i2Kqdqyt Kidney Disease: Estimated GFR < 15 mL/min/1.73m2 Glucose 123(H) 60 - 115 mg/dL [facility] Calcium 9.8 8.4 - 10.2 mg/dL [facility] Bilirubin, Total 0.3 0.0 - 1.0 mg/dL [facility] Aspartate Amino Transferase 27 5 - 31 U/L [facility] Alanine Aminotransferase 36(H) 0 - 31 U/L [facility] Total Protein 7.6 6.5 - 8.0 g/dL [facility] Albumin Level 4.5 3.5 - 5.0 g/dL [facility] Alkaline Phosphatase 64 39 - 117 U/L [facility] 09/16/2024 3:17 PM EST 09/16/2024 3:19 PM EST us Generic External Data Provider LAB BLOOD ORDERAB LES Final Result [facility] [address] [place] [phone] * POCT Glucose (08/31/2024 1:19 PM EST) Glucose Blood, POC 177 60 - 200 mg/dL QC Media Lot # [id number] Lot# Expiration Date 482,025 Blood Capillary blood specimen / Unknown 08/31/2024 1:19 PM EST Ann-Marie Camacho MD POINT OF CARE TEST ENTER/ED IT ORDERABLES Final Result * (ABNORMAL) POCT HGB A1C (08/31/2024 1:18 PM EST) Hemoglobin A1C 6.7(A) 4.0 - 6.0 % QC Media Lot # [id number] Lot# Expiration Date 812,026 Blood 08/31/2024 1:18 PM EST us Ann-Marie Camacho MD POINT OF CARE TEST ENTER/ED IT ORDERABLES Final Result * Urinalysis, Complete, with Reflex to Culture (08/30/2024 12:50 PM EST) Color Urine Yellow [facility] Appearance Urine Clear [facility] PH 7.0 5.0 - 9.0 [facility] Glucose Urine UA Negative Negative mg/dL [facility] Urine Blood Trace Negative [facility] Specific Ross - Urine 1.010 1.005 - 1.025 [facility] Urine Protein Negative Neg-Trace mg/dL [facility] Urine Ketones Negative Negative mg/dL [facility] Nitrite Urine Negative Negative [facility] Leukocyte Esterase Urine Negative Negative [facility] RBC Urine 0-2 0 - 2 /HPF [facility] Urine WBC 0-5 0 - 5 /HPF [facility] Urine Squamous Epithelial Cell 0-2 0 - 2 /HPF [facility] Urine Bacteria None Seen None Seen [facility] Hyaline Casts, Urine 0-2 0 - 2 /LPF [facility] 08/30/2024 12:5 0 PM EST 08/30/2024 12:53 PM EST Narrative [facility] - 08/30/2024 1:05 PM EST [id number], Clean Catch Generic External Data Provider LAB URINE ORDERAB LES Final Result Performing Organization Address City/[facility]/ZIP Co de Phone Number [facility] [address] [place] [phone] * HCG, Qualitative, Urine (08/30/2024 12:50 PM EST) Urine NEGATIVE NEGATIVE [facility] Comment:This test was develo ped to detect early . Falsenegative results may occur after the 5th - 7th week ofpregnancy when using this test method. If clinicallyindicated, consider a serum hCG. 08/30/2024 12:5 0 PM EST 08/30/2024 12:53 PM EST [employer] (SAM) External Data Provider LAB URINE ORDERAB LES Final Result Performing Organization Address City/[facility]/ZIP Co de Phone Number [facility] [address] [place] [address] [phone] * (ABNORMAL) Drug Monitoring, Panel 1, Screen, Urine (08/05/2024 4:51 PM EST) Opiate Screen Urine Not Detected Not Detect [facility] Comment:Opiate cut-off is 30 0 ng/mL.Positive results are unconfirmed and should not be used fornon-medical purposes. Barbiturates, Urine Not Detected Not Detect [facility] Comment:Barbiturate cut-off is 200 ng/mL.Positive results are unconfirmed and should not be used fornon-medical purposes. Phencyclidine Screen Urine Not Detected Not Detect [facility] Comment:Phencyclidine cut-of f is 25 ng/mL.Positive results are unconfirmed and should not be used fornon-medical purposes. Amphetamine Screen Urine Not Detected Not Detect [facility] Comment:Amphetamine cut-off is 1000 ng/mL.Positive results are unconfirmed and should not be used fornon-medical purposes. Benzodiazepines Screen Urine Not Detected Not Detect [facility] Comment:Benzodiazepine cut-o ff is 200 ng/mL.Positive results are unconfirmed and should not be used fornon-medical purposes. Cocaine Screen Urine Not Detected Not Detect [facility] Comment:Cocaine cut-off is 3 00 ng/mL.Positive results are unconfirmed and should not be used fornon-medical purposes. Cannabinoid Screen Urine POSITIVE(A) Not Detect [facility] Comment:Cannabinoid cut-off is 50 ng/mL.Positive results are unconfirmed and should not be used fornon-medical purposes. Methadone Screen, Urine Not Detected Not Detect ng/mL [facility] Comment:Methadone cut-off is 300 ng/mL.Positive results are unconfirmed and should not be used fornon-medical purposes. FENTANYL URINE Not Detected Not Detect [facility] Comment:Fentanyl cut-off is 1 ng/mL.Positive results are unconfirmed and should not be used fornon-medical purposes. Oxycodone Urine Screen Not Detected Not Detect ng/mL [facility] Comment:Oxycodone cut-off is 100 ng/mL.Positive results are unconfirmed and should not be used fornon-medical purposes. Buprenorphine Screen Not Detected Not Detect ng/mL [facility] Comment:Buprenorphine cut-of f is 5 ng/mL.Positive results are unconfirmed and should not be used fornon-medical purposes. 08/05/2024 4:51 PM EST 08/05/2024 4:55 PM EST us Generic External Data Provider LAB URINE ORDERAB LES Final Result [facility] [address] [place] [address] [phone] * High Sensitivity Troponin I (08/05/2024 4:32 PM EST) [facility] TROPONIN I HIGH SENSITIVITY <2.7 <3.5 - 17.0 ng/L [facility] Comment:The [place] high sens itivity Troponin-I results should beused in conjunction with other diagnostic information suchas ECG, clinical observations and information, and patientsymptoms to aid in the diagnosis of [place]. 08/05/2024 4:32 PM EST 08/05/2024 4:36 PM EST Narrative [facility] - 08/05/2024 5:06 PM EST lwobs Generic External Data Provider LAB BLOOD ORDERAB LES Final Result Performing Organization Address [facility] Co de Phone Number [facility] [address] [place] [phone] * Ethanol (08/05/2024 4:32 PM EST) [facility] ETHANOL (MG/DL) IN SER/PLAS <10 mg/dL [facility] Comment:Serum/plasma ethanol results are to be used formedical/treatment purposes only. 08/05/2024 4:32 PM EST 08/05/2024 4:36 PM EST Narrative [facility] - 08/05/2024 5:01 PM EST lwobs Generic External Data Provider LAB BLOOD ORDERAB LES Final Result Performing Organization Address City/[facility]/ZIP Co de Phone Number [facility] [address] [place] [phone] * SARS-CoV-2 RNA, Influenza A/B, and RSV RNA, Ql NAAT (08/05/2024 4:32 PM EST) [facility] Influenza A PCR NEGATIVE Negative [facility] Influenza B PCR NEGATIVE Negative [facility] Resp Syncy Virus RNA Qual PCR NEGATIVE Negative [facility] SARS COV2 PCR NEGATIVE Negative [facility] Comment:All test results mus t be correlated with clinical findings.Negative results do not preclude SARS-CoV2, influenza Avirus, influenza B virus and/or RSV infectionand should not be used as the sole basis for treatment orother patient management decisions. Negative results must becombined with clinical observations, patient history, andepidemiological information.This test has not been evaluated for monitoring treatment ofinfection.This test has been authorized by the FDA under an EmergencyUse Authorization (EUA) for use by authorized laboratories.Testing performed on the [employer] GeneXpert utilizingreal-time RT-PCR.All SARS CoV2 and positive influenza A/B results arereported to [facility]. 08/05/2024 4:32 PM EST 08/05/2024 4:36 PM EST [facility] - 08/05/2024 5:23 PM EST lwobs Generic External Data Provider LAB MICROBIOLOGY - GENERAL ORDERABLES Final Result Performing Organization Address [facility]/ZIP Co de Phone Number [facility] [address] [place] [address] [phone] * Magnesium (08/05/2024 4:32 PM EST) [facility] Magnesium 2.1 1.6 - 2.6 mg/dL [facility] 08/05/2024 4:32 PM EST 08/05/2024 4:36 PM EST [facility] - 08/05/2024 5:01 PM EST lwobs Generic External Data Provider LAB BLOOD ORDERAB LES Final Result Performing Organization Address [facility]/ZIP Co de Phone Number [facility] [address] [place] [address] [phone] * Acetaminophen level (08/05/2024 4:32 PM EST) Pathologist [facility] Acetaminophen LAB <3 <30 mcg/mL [facility] 08/05/2024 4:32 PM EST 08/05/2024 4:36 PM EST Narrative [facility] - 08/05/2024 5:00 PM EST lwobs us Generic External Data Provider LAB BLOOD ORDERAB LES Final Result Performing Organization Address [facility] de Phone Number [facility] [address] [place] [phone] * (ABNORMAL) Salicylate (08/05/2024 4:32 PM EST) Salicylate <5.0(L) 15 - 30 mg/dL [facility] 08/05/2024 4:32 PM EST 08/05/2024 4:36 PM EST Narrative [facility] - 08/05/2024 5:00 PM EST lwobs Generic External Data Provider LAB BLOOD ORDERAB LES Final Result Performing Organization Address [facility] de Phone Number [facility] [address] [place] [phone] * XR Chest 1 View (08/05/2024 2:11 PM EST) Anatomical Region Laterality Modality Chest Radiographic Naila ging 08/05/2024 2:11 PM EST Narrative 08/05/2024 5:16 PM EST ? [facility] ?[address] ?[place] [address] ?XRay Report ? Signed ? Patient: Orion,Nani A ?MR#: [id number] ?? [id number] ? : 1975 ?Acct:[id number] ? Age/Sex: 49 / F ?ADM Date: 12/11/24 ? Loc: HO.ED ? Attending Dr: ? Ordering Physician: Finn Yoo MD ?? Date of Service: 08/05/24 ?? Procedure(s): XR chest 1V ?? Accession Number(s): [id number] ? cc: Ann-Marie Camacho MD; Finn Yoo MD ? EXAMINATION: ?? XR CHEST ? CLINICAL INFORMATION: ?? chest pain ? COMPARISON: ?? None available. ? TECHNIQUE: ?? Frontal view of the chest was obtained. ? FINDINGS: ?? No significant abnormality is noted involving the heart, lungs, ?? mediastinum, bony thorax or soft tissues. ? XR/XR chest 1V ?? IMPRESSION: ?? Unremarkable examination. ? Electronically signed by: ??Oneil Mejia MD ??08/05/2024 05:13 PM EST ?? RP ? Dictated By: ?Oneil Mejia MD ? Signed By: ?<Electronically signed by Oneil Mejia MD in OV> ? 08/05/24 1713 ? DD/ 1411 ? TD/TT: 08/05/24 1500 ? Cosmetics Supervisor: SS ? Procedure Note DonBessy hooper - 08/05/2024 [place] [address] XRay Report Signed Patient: Nani Sears AMR#: [id number] : 1975Acct:[id number] Age/Sex: 49 / FADM Date: 08/05/24 Loc: .ED Attending Dr: Ordering Physician: Finn Yoo MD Date of Service: 08/05/24 Procedure(s): XR chest 1V Accession Number(s): [id number] cc: Ann-Marie Camacho MD; Finn Yoo MD EXAMINATION: XR CHEST CLINICAL INFORMATION: chest pain COMPARISON: None available. TECHNIQUE: Frontal view of the chest was obtained. FINDINGS: No significant abnormality is noted involving the heart, lungs, mediastinum, bony thorax or soft tissues. XR/XR chest 1V IMPRESSION: Unremarkable examination. Electronically signed by: Oneil Mejia MD 08/05/2024 05:13 PM EST Dictated By: Oneil Mejia MD Signed By: <Electronically signed by Oneil Mejia MD in OV> 08/05/24 1713 DD/ 1411 TD/TT: 08/05/24 1500 Cosmetics Supervisor: SS [facility] External Provider IMG XR PROCEDURES Final Result * Pap Smear (07/14/2024 10:44 AM EST) Swab 07/14/2024 10:4 4 AM EST 07/15/2024 9:15 AM EST [facility] - 07/17/2024 9:28 AM EST ----- ------- Name: Nani Sears ?Age/Sex: 49/F ? : 1975 Unit#: [id number] ?? Attend Dr: Dulce Marvin MD ?Re07/14/24 ?Status: DEP REF ? Location: HO.LNP ?Disch: ? ----- ------- SPEC : [id number] ?RECD: 07/15/24-914 ? STATUS: ??SOUT ? REQ NUM: [id number] ? CANDELARIO: 07/14/24-5481 ? SUBM DR: Dulce Marvin MD ? ENTERED: ??07/15/24-1106 ?SP TYPE: Pap Smr ?OTHR : ? ORDERED: ??Pap Smear ? Interpretation ?? Satisfactory for evaluation. ?? Negative for intraepithelial lesion or malignancy. ? HPV High Risk: ??Negative ? HPV Genotyping 16: ??Negative ?? HPV Genotyping 18: ??Negative ?Clinical Information LMP: Postmenopausal Previous PAP test: Unknown date, +hrHPV ? Material Received ?? ThinPrep-Cervical ----- ------- Signed (signature on file) EVGENY Muñoz (ASCP) 07/17/24 0928 ? ----- ------- ? END OF REPORT ? us Dulce Marvin MD LAB CYTOLOGY ORDERABLES Final Result Performing Organization Address [facility] Co de Phone Number [facility] [address] [place] [phone] * Slide Review (07/13/2024 11:36 AM EST) Slide Review VERIFIED [facility] 07/13/2024 11:3 6 AM EST 07/13/2024 11:36 AM EST us Generic External Data Provider LAB BLOOD ORDERAB LES Final Result Performing Organization Address [facility] Phone Number [facility] [address] [place] [address] [phone] * Hepatitis C Antibody with Reflex to HCV, RNA, Quantitative, Real-Time PCR (07/13/2024 11:36 AM EST) Hepatitis C Antibody Nonreactive Nonreactive [facility] Comment:Antibodies to HCV no t detected; does not exclude early acuteHCV infection. Blood Venous blood specimen / Unknown 07/13/2024 11:36 AM EST 07/13/2024 11:36 AM EST us Ann-Marie Camacho MD LAB BLOOD ORDERABLES Final Result Performing Organization Address [facility] Co de Phone Number [facility] [address] [place] [phone] * (ABNORMAL) Lipid Panel, Standard (07/13/2024 11:36 AM EST) Triglycerides 464(H) <150 mg/dL [facility] Comment:Desirable Triglyceri de: less than 150 mg/dLBorderline High Triglyceride 150-199 mg/dLHigh Triglyceride: 200-499 mg/dLVery High Triglyceride: greater than or equal to 5OO mg/dL Cholesterol 236(H) <200 mg/dL [facility] Comment:Desirable Cholestero l: less than 200 mg/dLBorderline High Cholesterol: 200-239 mg/dLHigh Cholesterol: greater than 239 mg/dL LDL Cholesterol Calculated TNP <100 mg/dL [facility] Comment:Unable to calculate the LDL. The formula of Friedwald,Kothari, and Audrey is only valid if the triglycerides areless than 400 mg/dl. HDL Cholesterol 35(L) >40 mg/dL [facility] Comment:Desirable HDL: great er than 40 mg/dL Note: This HDL assay may give artificially low results in patients with liver disease. Blood Venous blood specimen / Unknown 07/13/2024 11:36 AM EST 07/13/2024 11:36 AM EST Ann-Marie Camacho MD LAB BLOOD ORDERABLES Final Result Performing Organization Address City/State/[facility] Co de Phone Number [facility] [address] [place] [address] [phone] * BI Mammogram Screening Tomosynthesis Bilateral (07/03/2024) Anatomical Region Laterality Modality Breast Bilateral Mammography us Ann-Marie Camacho MD IMG BI PROCEDURES Final Res ult * (ABNORMAL) Colonoscopy (09/28/2019) Anatomical Region Laterality Modality Endoscopy Narrative 09/28/2019 Normal mucosa in the terminal ileum, 4 mm polyp removed, normal mucosa whole colon, biopsies obtained. Colonoscopy done by Matthew BARBER. Colon sigmoid : hyperplastic poly on Path report. us Historical Provider ENDOSCOPY PROCEDURE ORDER LUCRECIA Final Result from Last 3 Months or Most Recently Relevant to Health Maintenance Insurance [facility] [employer] CARE GENERIC [facility] PPO 70 LEILA [id number] Care Teams Efficiency Miner Relationship Specialty Start Date End Date Ann-Marie Camacho MD [address] [facility] LEILA Kam13 PCP - General Internal Medicine 02/23/21
--- OUTSIDE RECORDS SUMMARY | 2024-10-07 13:41 | XMS_ITS | Encounter Summary ---
Author Organization [employer] Address [address] [facility] [address] [place] [address] Care Team Providers Care Repair Clerk Name Role Phone Ann-Marie Camacho MD Primary Care Provider [phone] Reason for Visit * Reason Onset Date Comments ER Follow-up 09/06/2023 Encounter Details Date Type Department Care Team (Late st Contact Info) Description 09/06/2023 Telephone [facility] [address] [place], [place] [phone] Ann-Marie Camacho MD [address] [place] [phone] ER Follow-up Social History Tobacco Use Types Packs/Day Years Used Date Smoking Tobacco: Every Day Cigarettes Passive Smoke Exposure: Never Smokeless Tobacco: Current Alcohol Use Standard Drinks/Week [...] Access Q2 Not on file 05/12/2024 Comments Unknown Sex and Gender Information Value Date Recorded Sex Assigned at Female 06/25/2022 10:38 AM EDT Legal Sex Female 10:38 AM EDT Gender Identity Female 06/25/2022 10:38 AM EDT Sexual Orientation Don't know 06/25/2022 10 :38 AM EDT documented as of this encounter Miscellaneous Notes * Telephone Encounter - Shayla Raza RN - 09/06/2023 3:55 PM EST called pt to triage, spoke to pt. pt states seen ER at [facility] yesterday for stomach pain, vomiting, and diarrhea. pt states nothing acute found and requesting follow up appt. pt denies fevers, constant vomiting, severe diarrhea, inability to drink fluids, or other associated symptoms. pt states has not eaten much in the last couple of days and did not take her DM medication yesterday or today. advised home care: rest, fluids, light diet, monitor blood sugars, take DM medication if tolerating and sugars are not low, and call back if worsening or seek ER evaluation if severe. pt understands and agrees with plan. given appt Saturday with [facility] at 9:20 for exam. insurance verified. Protocol Used: Abdominal Pain - Upper (Adult) Protocol-Based Disposition: See in Office or Video Visit within 2 Weeks Positive Triage Question: * Abdominal pain is a chronic symptom (recurrent or ongoing AND lasting > 4 weeks) * All higher-acuity triage questions were negative Care Advice Discussed: * Reassurance and Education - Stomach Pain * Antacid Medicine * Drink Clear Fluids * Diet * Avoid Aspirin and NSAIDs * Stop Smoking * Reasons To Call Back - You become worse * Telephone Encounter - Roseann Hurst - 09/06/2023 3:18 PM EST Patient calling to report ED visit on : Date: 09/05/23 Hospital: [facility] Seen for: back pain, abdominal pain, diarrhea, [t states feels nausea and has pain still. Patient advised will forward to team nurse for follow up Please contact at [phone] documented in this encounter Plan of Treatment Not on file documented as of this encounter Visit Diagnoses Not on filedocumented in this encounter Additional Health Concerns Assessment Noted Time PHQ-9 Depression Total Score: 6 09/03/19 23 1:13 PM EST documented as of this encounter Care Teams Repair Clerk Relationship Specialty Start Date End Date Ann-Marie Camacho MD [address] [place] [phone] PCP - General Internal Medicine 02/23/21 documented as of this encounter
--- OUTSIDE RECORDS SUMMARY | 2024-10-07 13:41 | XMS_ITS | Encounter Summary ---
Author Organization [employer] Address [address] [place] [address] [address] [place] [address] Care Team Providers Care Trailer Sections Assembler Name Role Phone Ann-Marie Camacho MD Primary Care Provider [phone] Encounter Details Date Type Department Care Team (Latest Contact Info) Description 10/24/2021 Abstract [facility] CONVERSIONS Dental, Provider, DDS Social History Tobacco Use Types Packs/Day Years [...] Diagnoses Not on filedocumented in this encounter Care Teams Trailer Sections Assembler Relationship Specialty Start Date End Date Ann-Marie Camacho MD [address] [facility] [place] [address] PCP - General Internal Medicine 02/23/21 documented as of this encounter
--- OUTSIDE RECORDS SUMMARY | 2024-10-07 13:41 | XMS_ITS | Encounter Summary ---
Author Organization [employer] Address [address] [facility] 7 [place] [address] Care Team Providers Care Fuel Testing Technician Name Role Phone Ann-Marie Camacho MD Primary Care Provider [phone] Reason for Visit * Reason Onset Date Comments Results 01/15/2024 FYI 01/15/2024 Encounter Details Date Type Department Care Team ([facility] st Contact Info) Description 01/15/2024 Telephone [facility] MEDICINE [address] [place] [address] Ann-Marie Camacho MD [address] [place] [address] Results; I Social History Tobacco Use Types Packs/Day Years Used Date Smoking Tobacco: Every Day Cigarettes Passive Smoke Exposure: Current Smokeless Tobacco: Current Alcohol Use Standard Drinks/Week Comments Never 0 (1 standard drink = 0.6 oz pur e alcohol) Depression Answer Date Recorded Patient Health Questionnaire-9 Score 6 09/03/2022 Depression Answer Date Recorded Patient Health Questionnaire-2 Score 1 09/03/2022 Comments Unknown Sex and Gender Information Value Date Recorded Sex Assigned at Female 06/25/2022 10:38 AM EDT Legal Sex Female 10:38 AM EDT Gender Identity Female 06/25/2022 10:38 AM EDT Sexual Orientation Don't know 06/25/2022 10 :38 AM EDT documented as of this encounter Miscellaneous Notes * Telephone Encounter - Wing Asia RN - 01/16/2024 11:04 AM EDT Tc to pt to relay PCP reviewing lab, pt repots continuing to feel unwell x 6 days with pain under left shoulder blade, nausea, and one episode of vomiting after having a cup of coffee against provider's advice. No blood noted in vomit. Pt also is having symptoms of explosive diarrhea and fells hot but unsure if fever or hot flashes and no thermometer. Pt states she felt better after seeing PCP inwalk-in but got worse this morning with symptoms mentioned above. Gave pt same day appt with Dr. Anderson at 2:20 pm as per PCP's advice. Pt verbalized understanding and agreement with plan. * Telephone Encounter - Nikhil Shoemaker RN - 01/15/2024 4:04 PM EDT Please see message below and advise. Thanks. * Telephone Encounter - Sal Mcdonald - 01/15/2024 2:47 PM EDT Tc from patient calling to request Lab results and to inform the provider that is still not feelingwell documented in this encounter Plan of Treatment Not on file documented as of this encounter Visit Diagnoses Not on filedocumented in this encounter Additional Health Concerns Assessment Noted Time PHQ-9 Depression Total Score: 6 09/03/19 23 1:13 PM EST documented as of this encounter Care Teams Fuel Testing Technician Relationship Specialty Start Date End Date Ann-Marie Camacho MD [address] [place] [address] PCP - General Internal Medicine 02/23/21 documented as of this encounter
--- OUTSIDE RECORDS SUMMARY | 2024-10-07 13:41 | XMS_ITS | Encounter Summary ---
Author Organization [employer] Address [address] [facility] 7t [place] [address] Care Team Providers Care Production Truck Driver Name Role Phone Ann-Marie Camacho MD Primary Care Provider [phone] Reason for Visit * Reason Comments Dental Pain Encounter Details Date Type Department Care Team (Late st Contact Info) Description 10/06/2024 11:30 AM EST Office Visit [facility] ADULT DENTAL [address] [place] [address] Cheyenne Beltrán DDS [address] [place] [address] Social History Tobacco Use Types Packs/Day Years [...] AM EDT documented as of this encounter Progress Notes * Cheyenne Beltrán DDS - 10/06/2024 11:30 AM EST Dental procedures in this visit D0140 - LIMITED ORAL EVALUATION - PROBLEM FOCUSED (Completed) Service provider: Cheyenne Beltrán DDS Billing provider: Jesusita Zamora DDS D0220 - INTRAORAL - PERIAPICAL FIRST RADIOGRAPHIC IMAGE (Completed) Service provider: Cheyenne Beltrán DDS Billing provider: Jesusita Zamora DDS [id number] - BITEWING - SINGLE RADIOGRAPHIC IMAGE (Completed) Service provider: Cheyenne Beltrán DDS Billing provider: Jesusita Zamora DDS Patient ID: Felicia Fletcher is a 49 y.o. female. Time Out: Date: 10/06/2024 Location: [facility] Tooth: #5 Procedure: Exam Verified the above with patient, assistant vice president, and provider. Confirmed via patient's chart, intraorally and by radiographs. Area Intelligence Technician: not applicable 49 y.o. y/o female presents for limited exam with Dr. Cheyenne Beltrán DDS Medical history: Reviewed in EHR Vitals: There were no vitals taken for this visit. Allergies: Reviewed in EHR Medications: Reviewed in EHR Radiographs taken: JUAN C CHIEF COMPLAINT: My tooth broke last night while I was eating a granola Discussion: During visit clinical & radiograph examination was done. Upon evaluation it was noted tooth #5 was completely broken down and grossly decay not restorable, no apical radiolucence present or sign of pain present. PT expressed discomfort due sharp portion of the broken teeth. Sharp cusp on #5 was korean/smoothed with football roya. PT felt relief. PT was informed that tooth #5 can not be restored therefore extraction its advised. PT agreed & understood. NV: ext Provider: Dr. Cheyenne Beltrán DDS Dental Manager Staffing: Nadeem Nieto Attending: Dr. Zamora * Jesusita Zamora DDS - 10/06/2024 11:30 AM EST I have reviewed the documentation and dental procedures completed by the rendering provider, Cheyenne Beltrán DDS, and approve their chart entries for this visit. BENNIE Mancilla DDS documented in this encounter Plan of Treatment Scheduled Orders Name Type Priority Associated Diagnoses Orde r Schedule 5 5 EXTRACTION, ERUPTED TOOTH OR EXPOSED ROOT (ELEVATION AND/OR FORCEPS REMOVAL) Dental Routine [address] arting 10/06/2024 COMPREHENSIVE ORAL EVALUATION - NEW OR ESTABLISHED PATIENT Dental Routine 1 Occurrence s starting 10/06/2024 PROPHYLAXIS - ADULT Dental Routine 1 Occ urrences starting 10/06/2024 documented as of this encounter Procedures Procedure Name Priority Date/Time Associated Diagnosis Comments LIMITED ORAL EVALUATION - PROBLEM FOCUSED Routine 10/06/2024 11:30 AM EST INTRAORAL - PERIAPICAL FIRST RADIOGRAPHIC IMAGE Routine 10/06/2024 11:30 AM EST BITEWING - SINGLE RADIOGRAPHIC IMAGE Routine 10/06/2024 11:30 AM EST documented in this encounter Visit Diagnoses Not on filedocumented in this encounter Additional Health Concerns Assessment Noted Time PHQ-9 Depression Total Score: 6 09/03/19 23 1:13 PM EST documented as of this encounter Care Teams Production Truck Driver Relationship Specialty Start Date End Date Ann-Marie Camacho MD [address] [place] [address] PCP - General Internal Medicine 02/23/21 documented as of this encounter
--- OUTSIDE RECORDS SUMMARY | 2024-10-07 13:41 | XMS_ITS | Encounter Summary ---
Author Organization [employer] Address [address] [place] [address] 7t [place] [address] Care Team Providers Care Manager Technical Training Name Role Phone Ann-Marie Camacho MD Primary Care Provider [phone] Reason for Visit * Reason Comments Med Refill Encounter Details Date Type Department Care Team ([facility] st Contact Info) Description 03/17/2023 Refill [facility] CHC MED & PEDS [address] [place] [address] Ann-Marie Camacho MD [address] [place] [address] Social History Tobacco Use Types Packs/Day Years [...] documented as of this encounter Care Teams Manager Technical Training Relationship Specialty Start Date End Date Ann-Marie Camacho MD [address] [place] [address] PCP - General Internal Medicine 02/23/21 documented as of this encounter
--- OUTSIDE RECORDS SUMMARY | 2024-10-07 13:41 | XMS_ITS | Encounter Summary ---
Author Organization [employer] Address [address] [place] [address] 7t [place] [address] Care Team Providers Care Clinical Research Administrator Name Role Phone Ann-Marie Camacho MD Primary Care Provider [phone] Encounter Details Date Type Department Care Team ([facility] st Contact Info) Description 12/05/2022 Abstract [facility] CHC MED & PEDS [address] [place] [address] Ann-Marie Camacho MD [address] [place] [address] Social History Tobacco Use Types Packs/Day Years Used Date Smoking Tobacco: Never Passive Smoke Exposure: Never Smokeless Tobacco: Never Alcohol Use Standard Drinks/Week [...] Don't know 06/25/2022 10 :38 AM EDT COVID-19 Exposure Response Date Recorded In the last 10 days, have yo u been in contact with someone who was confirmed or suspected to have Coronavirus/COVID-19? No / Unsure 11/26/2022 10:20 AM EDT documented as of this encounter Plan of Treatment Not on file documented as of this encounter Procedures Procedure Name Priority Date/Time Associated Diagnosis Comments PAP/HPV Routine 11/16/2022 documented in this encounter Results * Pap Smear (11/16/2022) Pap smear PERFORMED us Historical Provider HEALTH MAINTENANCE Final Result documented in this encounter Visit Diagnoses Not on filedocumented in this encounter Additional Health Concerns Assessment Noted Time PHQ-9 Depression Total Score: 6 09/03/19 23 1:13 PM EST documented as of this encounter Care Teams Clinical Research Administrator Relationship Specialty Start Date End Date Ann-Marie Camacho MD [address] [place] [address] PCP - General Internal Medicine 02/23/21 documented as of this encounter
--- OUTSIDE RECORDS SUMMARY | 2024-10-07 13:41 | XMS_ITS | Encounter Summary ---
Author Organization [employer] Address [address] [place] [address] 7t [place] [address] Care Team Providers Care Credit Resolution Representative Name Role Phone Ann-Marie Camacho MD Primary Care Provider [phone] Reason for Visit * Reason Comments Med Refill Encounter Details Date Type Department Care Team ([facility] st Contact Info) Description 12/17/2022 Refill [facility] CHC MED & PEDS [address] [place] [address] Ann-Marie Camacho MD [address] [place] [address] Social History Tobacco Use Types Packs/Day Years [...] suspected to have Coronavirus/COVID-19? No / Unsure 12/18/2022 3:38 PM EDT documented as of this encounter Plan of Treatment Not on file documented as of this encounter Visit Diagnoses Not on filedocumented in this encounter Additional Health Concerns Assessment Noted Time PHQ-9 Depression Total Score: 6 09/03/19 23 1:13 PM EST documented as of this encounter Care Teams Credit Resolution Representative Relationship Specialty Start Date End Date Ann-Marie Camacho MD [address] [place] [address] PCP - General Internal Medicine 02/23/21 documented as of this encounter
--- OUTSIDE RECORDS SUMMARY | 2024-10-07 13:41 | XMS_ITS | Encounter Summary ---
Author Organization [employer] Address 75 [facility] 7t [place] [address] Care Team Providers Care Residential Pest Control Technician Name Role Phone Ann-Marie Camacho MD Primary Care Provider [phone] Encounter Details Date Type Department Care Team (Late st Contact Info) Description 06/25/2024 Orders Only [employer] [facility] [address] [place], [place] [id number] ProviderRoseanna MD Social History Tobacco Use Types Packs/Day Years [...] Procedure Name Priority Date/Time Associated Diagnosis Comments XR ABDOMEN FLAT AND UPRIGHT Routine 06/24/2024 9:55 AM EDT documented in this encounter Results * XR ABDOMEN FLAT AND UPRIGHT (06/24/2024 9:55 AM EDT) Anatomical Region Laterality Modality Radiographic Naila ging Historical Provider MD ELIAS XR PROCEDURES Final R esult documented in this encounter Visit Diagnoses Not on filedocumented in this encounter Additional Health Concerns Assessment Noted Time PHQ-9 Depression Total Score: 6 09/03/19 23 1:13 PM EST documented as of this encounter Care Teams Residential Pest Control Technician Relationship Specialty Start Date End Date Ann-Marie Camacho MD [address] [place] [address] PCP - General Internal Medicine 02/23/21 documented as of this encounter
--- OUTSIDE RECORDS SUMMARY | 2024-10-07 13:41 | XMS_ITS | Encounter Summary ---
Author Organization [employer] Address [address] [facility] [address] 7t [place] [address] Care Team Providers Care Rn Womens Health Name Role Phone Ann-Marie Camacho MD Primary Care Provider [phone] Encounter Details Date Type Department Care Team (Late st Contact Info) Description 10/06/2024 Telephone [facility] CHC ADULT DENTAL [address] [place], [place] [id number] Cheyenne Beltrán DDS [address] [place] [address] Social History Tobacco Use Types Packs/Day Years Used Date Smoking Tobacco: Every Day Cigarettes Passive Smoke Exposure: Current Smokeless Tobacco: Current Alcohol Use Standard Drinks/Week Comments Never 0 (1 standard drink = 0.6 oz pur e alcohol) Depression Answer Date Recorded Patient Health Questionnaire-9 Score 6 09/03/2022 Housing Stability Answer Date Recorded What is your housing situation today? I have katkatiana miller 05/12/[address] you [...] encounter Miscellaneous Notes * Telephone Encounter - Charleyzoltan Justin Williamson - 10/06/2024 9:42 AM EST patient called for a emergecy appt ; we need insurance information; patient has no ins information at all. Stating that has DD through her job, but unable to find the pt with no other information. Pt will call and get info then call us back. Pt was informed that if insurance information is not given upon appointment, patient will be fully responsible for the cost of em visit. documented in this encounter Plan of Treatment Not on file documented as of this encounter Visit Diagnoses Not on filedocumented in this encounter Additional Health Concerns Assessment Noted Time PHQ-9 Depression Total Score: 6 09/03/19 23 1:13 PM EST documented as of this encounter Care Teams Rn Womens Health Relationship Specialty Start Date End Date Ann-Marie Camacho MD [address] [place] [address] PCP - General Internal Medicine 02/23/21 documented as of this encounter
--- OUTSIDE RECORDS SUMMARY | 2024-10-07 13:41 | XMS_ITS | Encounter Summary ---
Author Organization [employer] Address [address] [place] [address] 7t [place] [address] Care Team Providers Care Automatic Folder Seamer Name Role Phone Ann-Marie Camacho MD Primary Care Provider [phone] Encounter Details Date Type Department Care Team ([facility] st Contact Info) Description 11/22/2022 Orders Only [facility] CHC MED & PEDS [address] [place] [address] Ann-Marie Camacho MD [address] [place] [address] Acute pain of right shoulder (Primary Dx) Social History Tobacco Use Types Packs/Day Years [...] suspected to have Coronavirus/COVID-19? No / Unsure 11/09/2022 2:23 PM EDT documented as of this encounter Plan of Treatment Not on file documented as of this encounter Visit Diagnoses Diagnosis Acute pain of right shoulder- Primary documented in this encounter Additional Health Concerns Assessment Noted Time PHQ-9 Depression Total Score: 6 09/03/19 23 1:13 PM EST documented as of this encounter Care Teams Automatic Folder Seamer Relationship Specialty Start Date End Date Ann-Marie Camacho MD [address] [place] [address] PCP - General Internal Medicine 02/23/21 documented as of this encounter
--- OUTSIDE RECORDS SUMMARY | 2024-10-07 13:41 | XMS_ITS | Encounter Summary ---
Author Organization [facility] Address [address] [place] [address] Care Team Providers Care Approver Name Role Phone Don Hudson MD Primary Care Provider Unavail able Encounter Details Date Type Department Care Team (Late st Contact Info) Description 06/24/2024 11:46 AM EDT Hospital Encounter TH [facility]ORIC [facility] ONLY Harsh Proctor MD [address] [place] [address] Social History Tobacco Use Types Packs/Day Years [...] AM EDT Narrative 06/24/2024 2:43 PM EDT [facility] Diagnostic Imaging Department [address] [place] [id number] Patient: ??FELICIA SEARS ?/Age/Sex: 1975 - 49 - F Unit#: ??[id number] ? Location/Status: ??SPDIGEN/REG CLI ? Mnemonic/Ordering Site: ??ABDOFLEREC/SPDI Ordering Physician: ??HARSH PROCTOR MD DR Abdomen Flat and Erect [...] of free air or obstruction. Dictating Physician: ??ANIRUDH ADKINS MD Electronically Signed by: ??ANIRUDH ADKINS MD Dic Date/Time: ??06/24/24 1443 Sign date/Time: ??06/24/24 1447 Procedure Note Anirudh Adkins MD - 06/27/2024 [facility] Diagnostic Imaging Department [address] [place] [address] Patient: FELICIA SEARS Caryn /Age/Sex: 1975 - 49 - F Unit#: [id number] Location/Status: SPDIGEN/REG CLI Mnemonic/[facility]ing [facility] Ordering Physician: HARSH PROCTOR MD [...] on filedocumented in this encounter Care Teams Approver Relationship Specialty Start Date End Date Don Hudson MD PCP - General 03/30/02 documented as of this encounter
--- OUTSIDE RECORDS SUMMARY | 2024-10-07 13:41 | XMS_ITS | Clinical Summary ---
Author Organization [facility] Address [address] [address] Care Team Providers Care Grading Machine Operator Name Role Phone Ann-Marie Camacho MD Primary Care Provider [phone] Allergies Active Allergy Reactions Criticality Noted Date Comments Carbamazepine 01/02/2022 Cariprazine 01/02/2022 Lamotrigine Rash Low 01/02/2022 [place] Other (see comments) 01/02/2022 Penicillins Shortness of breath High 08/16/2021 Medications atorvastatin (LIPITOR) 20 MG tablet Take 20 mg by mouth 1 (one) time each day 1 Active celecoxib (CeleBREX) 200 MG capsule Take 200 mg by mouth 2 (two) times a day if needed 1 Active clonazePAM (KlonoPIN) 1 MG tablet TAKE 1 TABLET BY MOUTH TWICE DAILY NEEDED. MAY USE 1 ADDITIONAL FOR ANXIETY DIRECTED 1 Active cloZAPine (CLOZARIL) 100 MG tablet Take 200 mg by mouth 1 (one) time each day 1 Active cloZAPine (CLOZARIL) 50 MG tablet Take 50 mg by mouth 1 (one) time each day 1 Active Linzess 145 MCG capsule Take 1 tablet by mouth 1 (one) time each day 1 Active lisinopril 40 MG tablet Take 40 mg by mouth 1 (one) time each day 1 Active metoprolol succinate XL (TOPROL XL) 50 MG 24 hr tablet Take 50 mg by mouth 1 (one) time each day 1 Active Myrbetriq 50 MG tablet sustained-relea se 24 hour Take 1 tablet by mouth 1 (one) time each day 1 Active oxyCODONE (ROXICODONE) 5 MG immediate release tablet Take 5 mg by mouth 1 (one) time each day if needed 1 Active pantoprazole (PROTONIX) 40 MG EC tablet 1 Active tiZANidine (ZANAFLEX) 4 MG tablet TAKE 1 TABLET BY MOUTH TWICE DAILY NEEDED 1 Active metFORMIN (GLUMETZA) 1000 MG 24 hr tablet Take 1,000 mg by mouth in the morning and 1,000 mg in the evening. Take with meals. Do not crush, chew, or split. . Active SITagliptin (JANUVIA) 100 MG tablet Take 100 mg by mouth 1 (one) time each day Active SITagliptin (JANUVIA) 50 MG tablet Take 50 mg by mouth 1 (one) time each day Active Active Problems Problem Noted Date Diagnosed Date Complex renal cyst 11/21/2021 Family History Medical History Relation Comments Coronary artery disease Father Diabetes type II Father Diabetes type II Mother Relation Status Comments Father Mother Social History Tobacco Use Types Packs/Day Years Used Date Smoking Tobacco: Every Day Smokeless Tobacco: Current Alcohol Use Standard Drinks/Week Comments Yes 0 (1 standard drink = 0.6 oz pur e alcohol) 1-2 per month Comments Unknown Sex and Gender Information Value Date Recorded Sex Assigned at Not on file Legal Sex Female 2:49 PM EST Gender Identity Not on file Sexual Orientation Not on file Last Filed Vital Signs Vital Sign Reading Time Taken Comments Blood Pressure 122/78 01/09/2022 4:32 PM EDT Pulse 96 01/09/2022 4:32 PM EDT Temperature - - Respiratory Rate - - Oxygen Saturation 95% 08/16/2021 2:14 PM EST Inhaled Oxygen Concentration - - Weight 147 kg (324 lb) 01/09/2022 4:32 PM EDT Height - - Body Mass Index - - Plan of Treatment Health Maintenance Due Date Last Done Comments Pneumococcal Vaccine: Pediat rics (0 to 5 Years) and At-Risk Patients (6 to 64 Years) (1 of 2 - PCV) 1981 Hepatitis B Vaccine (1 of 3 - 19+ 3-dose series) 05/11 Diabetes: Hemoglobin A1C 11/21/2021 Diabetes: Ophthalmology Exam 11/21/2021 Diabetes: Pedal Pulse Checked 11/21/2021 Diabetes: Sensory Foot Exam 11/21/2021 Diabetes: Visual Foot Exam 11/21/2021 Influenza Vaccine (#1) 2024 Colorectal Cancer Screening: Annual FOBT 2024 Colorectal Cancer Screening: Colonoscopy 2024 Colorectal Cancer Screening: Sigmoidoscopy 2024 Insurance GENERIC COMMERCIAL [facility] MEDIC[facility] GENERIC COMMERCIAL Care Teams Grading Machine Operator Relationship Specialty Start Date End Date Ann-Marie Camacho MD [address] [place] [address] PCP - General Internal Medicine 07/14/21
--- OUTSIDE RECORDS SUMMARY | 2024-10-07 13:41 | XMS_ITS | Encounter Summary ---
Author Organization [employer] Address [address] [facility] 7t [place] [address] Care Team Providers Care Customer Service Security Officer Name Role Phone Ann-Marie Camacho MD Primary Care Provider [phone] Encounter Details Date Type Department Care Team (Latest Contact Info) Description 07/13/2024 Orders Only [facility] CHC MED & PEDS [address] [place] [address] Ann-Marie Camacho MD [address] [place] [address] Pure hypercholesterolemia (Primary Dx) Social History Tobacco Use Types [...] as of this encounter Visit Diagnoses Diagnosis Pure hypercholesterolemia- Primary documented in this encounter Additional Health Concerns Assessment Noted Time PHQ-9 Depression Total Score: 6 09/03/19 23 1:13 PM EST documented as of this encounter Care Teams Customer Service Security Officer Relationship Specialty Start Date End Date Ann-Marie Camacho MD [address] [place] [address] PCP - General Internal Medicine 02/23/21 documented as of this encounter
--- OUTSIDE RECORDS SUMMARY | 2024-10-07 13:41 | XMS_ITS | Encounter Summary ---
Author Organization [employer] Address [address] [facility] 7t [place] [address] Care Team Providers Care Aquatics Director Name Role Phone Ann-Marie Camacho MD Primary Care Provider [phone] Reason for Visit * Reason Onset Date Comments Error 10/22/2023 Encounter Details Date Type Department Care Team (Late st Contact Info) Description 10/22/2023 Telephone [facility] MEDICINE [address] [place] [address] Ann-Marie Camacho MD [address] [place] [address] Error Social History Tobacco Use Types Packs/Day Years [...] documented as of this encounter Care Teams Aquatics Director Relationship Specialty Start Date End Date Ann-Marie Camacho MD [address] [place], [place] [address] [address] PCP - General Internal Medicine 02/23/21 documented as of this encounter
--- OUTSIDE RECORDS SUMMARY | 2024-10-07 13:41 | XMS_ITS | Encounter Summary ---
Author Organization [employer] Address [address] [facility] 7t [place] [address] Care Team Providers Care Java Sql Developer Name Role Phone Ann-Marie Camacho MD Primary Care Provider [phone] Encounter Details Date Type Department Care Team (Late st Contact Info) Description 09/16/2024 Orders Only GENERIC EXTERNAL DATA DEPARTMENT [...] Procedure Name Priority Date/Time Associated Diagnosis Comments CT ABDOMEN PELVIS WO CONTRAST Routine 09/16/2024 9:30 PM EST URINALYSIS WITH REFLEX MICROSCOPIC Routine 09/16/2024 8:11 PM EST CBC WITH AUTO DIFFERENTIAL Routine 09/16/2024 3:17 PM EST HCG, TOTAL, QN Routine 09/16/2024 3:17 PM EST LIPASE Routine 09/16/2024 3:17 PM EST COMPREHENSIVE METABOLIC PANEL Routine 09/16/2024 3:17 PM EST documented in this encounter Results * CT Abdomen Pelvis w/o Contrast (09/16/2024 9:30 PM EST) Anatomical Region Laterality Modality Body, Pelvis, Abdomen Computed T omography 09/16/2024 9:30 PM EST Narrative 09/16/2024 9:32 PM EST ? [facility] ?[address] ?[place] [address] ? CT Scan Report ? Signed ? Patient: Chance,Felicia A ?MR#: [id number] ?? [id number] ? : 1975 ?Acct:[id number] ? Age/Sex: 49 / F ?ADM Date: 01/22/25 ? Loc: HO.ED ? Attending Dr: ? Ordering Physician: Moose Ponce ?? Date of Service: 09/16/24 ?? Procedure(s): CT abdomen pelvis wo IV con ?? Accession Number(s): [id number] ? cc: Moose Ponce; Ann-Marie Camacho MD ? Report Number: ?? [id number]: Total DLP = 1159.00 mGy-cm ? CLINICAL [...] ? 09/16/242130 ? DD/ 29 ? TD/TT: 09/16/242129 ? Coordinate Measuring Equipment Operator: ? Procedure Note Bessy Sullivan - 09/16/[address] [address] [address] Scan Report Signed Patient: Felicia Fletcher [facility]#: [id number] : 1975Acct:[id number] Age/Sex: 49 / FADM Date: 09/16/24 Loc: HO.ED Attending Dr: Ordering Physician: Moose Ponce Date of Service: 09/16/24 Procedure(s): CT abdomen pelvis wo IV con Accession Number(s): [id number] cc: Moose Ponce; Ann-Marie Camacho MD Report Number: [id number]: Total DLP = 1159.00 mGy-cm CLINICAL HISTORY: [...] in OV> 09/16/242130 DD/ 29 TD/TT: 09/16/242129 Coordinate Measuring Equipment Operator: [facility] External Provider IMG CT PROCEDURES Edited Result - Final * Urinalysis w/reflex microscopic (09/16/2024 8:11 PM EST) Color Urine Yellow [facility] Appearance Urine Clear [facility] PH 7.0 5.0 - 9.0 [facility] Glucose Urine UA Negative Negative mg/dL [facility] Urine Blood Negative Negative [facility] Specific [place] - Urine <=1.005 1.005 - 1.025 [facility] Urine Protein Negative Neg-Trace mg/dL [facility] Urine Ketones Negative Negative mg/dL [facility] Nitrite Urine Negative Negative [facility] Leukocyte Esterase Urine Negative Negative [facility] 09/16/2024 8:11 PM EST 09/16/2024 8:14 PM EST Narrative [facility] - 09/16/2024 8:20 PM EST [id number], Clean Catch Generic External Data Provider LAB URINE ORDERAB LES Final Result Performing Organization Address [facility] Co de Phone Number [facility] [address] [place] [phone] * hCG, Total, Quantitative (09/16/2024 3:17 PM EST) HCG Quantitative 5 mIU/mL [facility] Comment:Weeks post LMP Appro ximate hCG(Last Menstrual Period) Range (mIU/ml)3 - 4 weeks 9 - 1304 - 5 weeks 75 - 2,6005 - 6 weeks 850 - 20,8006 - 7 weeks 4000 - 100,2007 - 12 weeks 11,500 - 289,58505 - 16 weeks 18,300 - 137,73770 - 29 weeks (2nd trimester) 1,400 - 53,69472 - 41 weeks (3rd trimester) 940 - [...] ORDERAB LES Final Result Performing Organization Address [facility] Co de Phone Number [facility] [address] [place] [phone] * Lipase (09/16/2024 3:17 PM EST) Lipase 30 8 - 78 U/L [facility] 09/16/2024 3:17 PM EST 09/16/2024 3:19 PM EST us Generic External Data Provider LAB BLOOD ORDERAB LES Final Result [facility] [address] [place], [place] [phone] * (ABNORMAL) Comprehensive Metabolic Panel (09/16/2024 3:17 PM EST) Sodium 145 135 - 145 mmol/L [facility] Potassium 3.9 3.3 - 5.1 mmol/L [facility] Chloride 107 96 - 108 mmol/L [facility] Carbon Dioxide 27 22 - 29 mmol/L [facility] Anion Gap 15 12 - 20 [facility] Urea Nitrogen (BUN) 10 9 - 16 mg/dL [facility] Creatinine, Serum 0.75 0.5 - 1.4 mg/dL [facility] Creatinine Clr Calc Pharmacy 108.6 [facility] Comment:Provided height and weight: 170.18 cm,97.2 kg.eGFR (calculated from the MDRD study equation) and eCrCl(calculated from the Cockcroft-Gault equation) are based ondifferent parameters and may not yield comparable results.If eCrCl result is absurd, please check patient'sheight/weight. Estimated Glomerular Filt Rate >60 [facility] Comment:Chronic Kidney Disea se: Estimated GFR < 60 mL/min/1.34q1Nofthf Kidney Disease: Estimated GFR < 15 mL/min/1.73m2 Glucose 123(H) 60 - 115 mg/dL [facility] Calcium 9.8 8.4 - 10.2 mg/dL [facility] Bilirubin, Total 0.3 0.0 - 1.0 mg/dL [facility] Aspartate Amino Transferase 27 5 - 31 U/L [facility] Alanine Aminotransferase 36(H) 0 - 31 U/L [facility] Total Protein 7.6 6.5 - 8.0 g/dL [facility] Albumin Level 4.5 3.5 - 5.0 g/dL [facility] Alkaline Phosphatase 64 39 - 117 U/L [facility] 09/16/2024 3:17 PM EST 09/16/2024 3:19 PM EST us Generic External Data Provider LAB BLOOD ORDERAB LES Final Result [facility] [address] [place] [address] [phone] * (ABNORMAL) CBC auto differential (09/16/2024 3:17 PM EST) White Blood Count 10.4 4.8 - 10.8 X10*3/uL [facility] Red Blood Count 4.41 4.20 - 5.50 X10*6/uL [facility] Hemoglobin 13.7 12.0 - 16.0 g/dl [facility] Hematocrit 40.7 37.0 - 47.0 % [facility] Mean Corpuscular Volume 92.3 80.0 - 98.0 fL [facility] Mean Corpuscular Hemoglobin 31.1 27.0 - 33.0 pg [facility] Mean Corpuscular HGB Conc 33.7 31.0 - 35.0 g/dl [facility] Red Cell Distribution Width 12.5 11.0 - 16.0 % [facility] Platelet Count 232 160 - 400 X10*3/uL [facility] Mean Platelet Volume 9.3(L) 9.4 - 12.3 fL [facility] Neutrophils Percent Auto 60.2 45 - 73 % [facility] Imm Gran Pct Auto 0.3 0.0 - 0.4 % [facility] Lymphocytes Percent Auto 33.2 20 - 40 % [facility] Monocytes Percent Auto 6.0 2 - 11 % [facility] Eosinophils Percent Auto 0.0 0 - 4 % [facility] Basophils Percent Auto 0.3 0 - 2 % [facility] NRBC Pct Auto 0.0 0.0 - 0.2 /100WBC [facility] Neutrophils Absolute Auto 6.2 2.0 - 8.3 x10*3/uL [facility] Imm Gran Abs Auto 0.03 0.00 - 0.03 X10*3/uL [facility] Lymphocytes Absolute Auto 3.4 1.2 - 4.9 X10*3/uL [facility] Monocytes Absolute Auto 0.6 0.1 - 1.2 X10*3/uL [facility] Eosinophils Absolute Auto 0.0 0.0 - 0.4 X10*3/uL [facility] Basophils Absolute Auto 0.0 0.0 - 0.2 X10*3/uL [facility] NRBC Abs Auto 0.000 0.0 - 0.012 X10*3/uL [facility] 09/16/2024 3:17 PM EST 09/16/2024 3:19 PM EST us Generic External Data Provider LAB BLOOD ORDERAB LES Final Result [facility] [address] [place] [address] [phone] documented in this encounter Visit Diagnoses Not on filedocumented in this encounter Additional Health Concerns Assessment Noted Time PHQ-9 Depression Total Score: 6 09/03/19 23 1:13 PM EST documented as of this encounter Care Teams Java Sql Developer Relationship Specialty Start Date End Date Ann-Marie Camacho MD [address] [place] [phone] PCP - General Internal Medicine 02/23/21 documented as of this encounter
--- OUTSIDE RECORDS SUMMARY | 2024-10-07 13:41 | XMS_ITS | Encounter Summary ---
Author Organization [employer] Address [address] [facility] 7t [place] [address] Care Team Providers Care Sail Repairer Name Role Phone Ann-Marie Camacho MD Primary Care Provider [phone] Reason for Visit * Reason Comments Med Refill Encounter Details Date Type Department Care Team (Late st Contact Info) Description 10/23/2022 Refill [facility] MEDICINE [address] [place] [address] Ann-Marie Camacho MD [address] [place], [place] [phone] Type 2 diabetes mellitus without complication, without long-term current use of insulin (CMS/HCC) Social History Tobacco Use Types Packs/Day Years [...] as of this encounter Visit Diagnoses Diagnosis Type 2 diabetes mellitus without complication, without long-term current use of insulin (CMS/HCC) documented in this encounter Additional Health Concerns Assessment Noted Time PHQ-9 Depression Total Score: 6 09/03/19 23 1:13 PM EST documented as of this encounter Care Teams Sail Repairer Relationship Specialty Start Date End Date Ann-Marie Camacho MD [address] [place] [phone] PCP - General Internal Medicine 02/23/21 documented as of this encounter
== END 2024-10-07 11:50 | disposition home or self-care (01) ==
LOC: HO.LABR 11:49
PROVIDERS: PCP Internal Medicine; Visit Provider Clinical Nurse Specialist Psychiatric/Mental Health, Child & Adolescent
DX: Z79.899 Other long term (current) drug therapy (principal)
CPT/HCPCS: 36415; 85025

== ENCOUNTER 2024-11-04 10:09 | Outpatient (REF) | payer BC, MEDICARE, SELFPAY ==
[2024-11-04 10:21] LABS: MANUAL DIFF FLAG NO
--- OUTSIDE RECORDS SUMMARY | 2024-11-04 11:37 | XMS_ITS | Encounter Summary ---
Author Organization [employer] Address [address] [facility] 7t [place] [address] Care Team Providers Care Hot Patcher Name Role Phone Ann-Marie Camacho MD Primary Care Provider [phone] Reason for Visit * Reason Comments Dental Pain Encounter Details Date Type Department Care Team ([facility] st Contact Info) Description 10/06/2024 11:30 AM EST Office Visit [facility] ADULT DENTAL [address] [place] [address] Cheyenne Beltrán DDS [address] [place] [address] Social History Tobacco Use Types Packs/Day Years [...] y.o. female. Time Out: Date: 10/06/2024 Location: [facility] Tooth: #5 Procedure: Exam Verified the above with patient, assistant merchandiser, and provider. Confirmed via patient's chart, intraorally and by radiographs. 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 y/o female presents [...] broken teeth. Sharp cusp on #5 was argentine/smoothed with football roya. PT felt relief. PT was informed that tooth #5 can not be restored therefore extraction its advised. PT agreed & understood. NV: ext Provider: Dr. Cheyenne Beltrán DDS Dental Plaster Molder: Nadeem Nieto Attending: Dr. Zamora * Jesusita Zamora DDS - 10/06/2024 11:30 AM EST I have reviewed the documentation and dental procedures completed by the rendering provider, Cheyenne Beltrán DDS, and approve their chart entries for this visit. BENNIE Mancilla DDS documented in this encounter Plan of Treatment Upcoming Encounters Date Type Department Care Team (Late st Contact Info) Description 11/05/2024 10:30 AM EDT Office Visit [facility] MED & PEDS [address] [place] [address] Nelly Anderson MD [address] [place] [address] 11/11/2024 2:30 PM EDT Office Visit [facility] ADULT DENTAL [address] [place] [address] Marcia Helton DMD 12/22/2024 10:15 AM EDT Office Visit [facility] MED & PEDS [address] [place] [address] Ann-Marie Camacho MD [address] [place] [address] Scheduled Orders Name Type Priority Associated Diagnoses [...] documented as of this encounter Care Teams Hot Patcher Relationship Specialty Start Date End Date Ann-Marie Camacho MD [address] [place] [phone] PCP - General Internal Medicine 02/23/21 documented as of this encounter
--- OUTSIDE RECORDS SUMMARY | 2024-11-04 11:37 | XMS_ITS | Clinical Summary ---
Author Organization [facility] Facility Address [address] [address] Care Team Providers Care Timber Sprinkler Name Role Phone Ann-Marie Camacho MD Primary Care Provider [phone] Allergies Active Allergy Reactions Criticality Noted Date Comments Carbamazepine 01/02/2022 Cariprazine 01/02/2022 Lamotrigine Rash Low 01/02/2022 Opdyke Other (see comments) 01/02/2022 Penicillins Shortness of [...] Cancer Screening: Sigmoidoscopy 2024 Insurance GENERIC COMMERCIAL [facility] MEDICARE GENERIC COMMERCIAL Care Teams Timber Sprinkler Relationship Specialty Start Date End Date Ann-Marie Camacho MD [address] [place] [address] PCP - General Internal Medicine 07/14/21
--- OUTSIDE RECORDS SUMMARY | 2024-11-04 11:37 | XMS_ITS | Encounter Summary ---
Author Organization [employer] Address [address] [place] [address] 7 [place] [address] Care Team Providers Care Power Technician Name Role Phone Ann-Marie Camacho MD Primary Care Provider [phone] Reason for Visit * Reason Comments Med Refill Encounter Details Date Type Department Care Team ([facility] Contact Info) Description 10/23/2022 Refill [facility] MEDICINE [address] [place] [address] Ann-Marie Camacho MD [address] [place], [place] [phone] Type 2 diabetes mellitus without complication, without long-term current use of insulin ([facility]) Social History Tobacco Use Types Packs/Day Years [...] Upcoming Encounters Date Type Department Care Team ([facility] Contact Info) Description 11/05/2024 10:30 AM EDT Office Visit [facility] MED & PEDS [address] [place], [place] [phone] Nelly Anderson MD [address] [place] [address] 11/11/2024 2:30 PM EDT Office Visit [facility] ADULT DENTAL [address] [place] [address] Marcia Helton DMD 12/22/2024 10:15 AM EDT Office Visit [facility] MED & PEDS [address] [place] [address] Ann-Marie Camacho MD [address] [place] [address] documented as of this encounter Visit Diagnoses Diagnosis Type 2 diabetes mellitus without complication, without long-term current use of insulin ([facility]) documented in this encounter Additional Health Concerns Assessment Noted Time PHQ-9 Depression Total Score: 6 09/03/19 23 1:13 PM EST documented as of this encounter Care Teams Power Technician Relationship Specialty Start Date End Date Ann-Marie Camacho MD [address] [place] [address] PCP - General Internal Medicine 02/23/21 documented as of this encounter
--- OUTSIDE RECORDS SUMMARY | 2024-11-04 11:38 | XMS_ITS | Encounter Summary ---
Author Organization [employer] Address [address] [facility] 7 [place] [address] Care Team Providers Care Bleach Chlorinator Name Role Phone Ann-Marie Camacho MD Primary Care Provider [phone] Reason for Visit * Reason Onset Date Comments Nurse Triage 11/04/2024 Encounter Details Date Type Department Care Team ([facility] st Contact Info) Description 11/04/[address] [facility] CHC MED & PEDS [address] [place] [address] Ann-Marie Camacho MD [address] [place] [address] Nurse Triage Social History Tobacco Use Types Packs/Day Years [...] encounter Miscellaneous Notes * Telephone Encounter - Gabriela Christian RN - 11/04/2024 9:58 AM EDT shuttle hand: Patient presents to [facility] requesting to see a nurse for multiple concerns: Ongoing pain to left shoulder, right hip, and right knee x 3 weeks s/p fall helping her Mother get her car out of a snow bank. She reports she went to a urgent care in [place], as well as [facility] on 10/19. She reports she was told her x-rays were negative in the ED. Per ED paperwork: X-ray hip w/ pelvis impression No fracture or dislocation. X-ray left shoulder impression No fracture or dislocation. Her pain has not resolved. Additionally, patient reports she has been taking Naproxen to help with the pain and she has been experiencing stomach discomfort. Patient also reports she is concerned that her rouvastatin is causing her to have muscle aches. Plan: Advised patient of [facility] Walk In Hours today as well as on site x-ray. Patient reports she had x-raysdone at [facility] and prefers to not drive to [place] at this time. Advised of appointment today at 3:15 PM. Patient prefers to return another day in the morning. Appointment booked tomorrow at 10:[address] Anderson. Patient verbalizes understanding and agreement with plan of care at this time. All questions answered. * Telephone Encounter - Robert Zaman - 11/04/2024 9:25 AM EDT Pt walked in mentioned she had a fall at mother in laws parking lot helping her remove car from snow bank. Pt states she was seen at [facility] mentioned she had x-rays done which came out normal. Pt is here now requesting to see a nurse due to pain on right hip and left shoulder. 3wks documented in this encounter Plan of Treatment Upcoming Encounters Date Type Department Care Team (Late st Contact Info) Description 11/05/2024 10:30 AM EDT Office Visit [facility] MED & PEDS [address] [place] [address] Nelly Anderson MD [address] [place] [address] 11/11/2024 2:30 PM EDT Office Visit [facility] ADULT DENTAL [address] [place] [address] Marcia Helton DMD 12/22/2024 10:15 AM EDT Office Visit [facility] MED & PEDS [address] [place] [address] Ann-Marie Camacho MD [address] [place] [address] documented as of this encounter Visit Diagnoses Not on filedocumented in this encounter Additional Health Concerns Assessment Noted Time PHQ-9 Depression Total Score: 6 09/03/19 23 1:13 PM EST documented as of this encounter Care Teams Bleach Chlorinator Relationship Specialty Start Date End Date Ann-Marie Camacho MD [address] [place] [address] PCP - General Internal Medicine 02/23/21 documented as of this encounter
--- OUTSIDE RECORDS SUMMARY | 2024-11-04 11:38 | XMS_ITS | Encounter Summary ---
Author Organization [employer] Address [address] [place] [address] 7t [place] [address] Care Team Providers Care Unit Secy Name Role Phone Ann-Marie Camacho MD Primary Care Provider [phone] Reason for Visit * Reason Comments Med Refill Encounter Details Date Type Department Care Team (Late Contact Info) Description 12/17/2022 Refill [facility] CHC MED & PEDS [address] [place], [place] [phone] Ann-Marie Camacho MD [address] [place] [address] Social History Tobacco Use Types Packs/Day Years [...] Encounters Date Type Department Care Team (Late Contact Info) Description 11/05/2024 10:30 AM EDT Office Visit [facility] MED & PEDS [address] [place] [address] Nelly Anderson MD [address] [place] [address] 11/11/2024 2:30 PM EDT Office Visit [facility] ADULT DENTAL [address] [place] [address] Marcia Helton DMD 12/22/2024 10:15 AM EDT Office Visit [facility] MED & PEDS [address] [place] [address] Ann-Marie Camacho MD [address] [place] [address] documented as of this encounter Visit Diagnoses Not on filedocumented in this encounter Additional Health Concerns Assessment Noted Time PHQ-9 Depression Total Score: 6 09/03/19 23 1:13 PM EST documented as of this encounter Care Teams Unit Secy Relationship Specialty Start Date End Date Ann-Marie Camacho MD [address] [place] [address] PCP - General Internal Medicine 02/23/21 documented as of this encounter
--- OUTSIDE RECORDS SUMMARY | 2024-11-04 11:38 | XMS_ITS | Encounter Summary ---
Author Organization [employer] Address [address] [facility] 7t [place] [address] Care Team Providers Care Auto Damage Adjuster Name Role Phone Ann-Marie Camacho MD Primary Care Provider [phone] Encounter Details Date Type Department Care Team ([facility] [address] Contact Info) Description 11/22/2022 Orders Only [facility] CHC MED & PEDS [address] [place], [place] [phone] Ann-Marie Camacho MD [address] [place], [place] [phone] Acute pain of right shoulder (Primary Dx) [...] Description 11/05/2024 10:30 AM EDT Office Visit [facility] MED & PEDS [address] [place] [address] Nelly Anderson MD [address] [place] [address] 11/11/2024 2:30 PM EDT Office Visit [facility] ADULT DENTAL [address] [place] [address] Marcia Helton DMD 12/22/2024 10:15 AM EDT Office Visit [facility] MED & PEDS [address] [place] [address] Ann-Marie Camacho MD [address] [place] [address] documented as of this encounter Visit Diagnoses Diagnosis Acute pain of right shoulder- Primary documented in this encounter Additional Health Concerns Assessment Noted Time PHQ-9 Depression Total Score: 6 09/03/19 23 1:13 PM EST documented as of this encounter Care Teams Auto Damage Adjuster Relationship Specialty Start Date End Date Ann-Marie Camacho MD [address] [place] [address] PCP - General Internal Medicine 02/23/21 documented as of this encounter
--- OUTSIDE RECORDS SUMMARY | 2024-11-04 11:38 | XMS_ITS | Encounter Summary ---
Author Organization [facility] [employer] Address [address] [place] [address] 7 [place] [address] Care Team Providers Care Fruit Grading Supervisor Name Role Phone Ann-Marie Camacho MD Primary Care Provider [phone] Encounter Details Date Type Department Care Team (Latest Contact Info) Description 10/24/2021 Abstract [facility] Dental, Provider, DDS Social History Tobacco [...] Description 11/05/2024 10:30 AM EDT Office Visit [facility] MED & PEDS [address] [place] [address] Nelly Anderson MD [address] [place] [address] 11/11/2024 2:30 PM EDT Office Visit [facility] ADULT DENTAL [address] [place] [address] Marcia Helton DMD 12/22/2024 10:15 AM EDT Office Visit [facility] MED & PEDS [address] [place] [address] Ann-Marie Camacho MD [address] [place] [address] documented as of this encounter Visit Diagnoses Not on filedocumented in this encounter Care Teams Fruit Grading Supervisor Relationship Specialty Start Date End Date Ann-Marie Camacho MD [address] [place] [address] PCP - General Internal Medicine 02/23/21 documented as of this encounter
--- OUTSIDE RECORDS SUMMARY | 2024-11-04 11:38 | XMS_ITS | Encounter Summary ---
Author Organization [employer] Address [address] [facility] 7 [place] [address] Care Team Providers Care Art Gilder Name Role Phone Ann-Marie Camacho MD Primary Care Provider [phone] Reason for Visit * Reason Onset Date Comments Results 01/15/2024 FYI 01/15/2024 Encounter Details Date Type Department Care Team ([facility] st Contact Info) Description 01/15/2024 Telephone [facility] [address] [place] [address] Ann-Marie Camacho MD [address] [place] [address] Results; I Social History Tobacco Use Types [...] Description 11/05/2024 10:30 AM EDT Office Visit [facility] [address] [place] [address] Nelly Anderson MD [address] [place] [address] 11/11/2024 2:30 PM EDT Office Visit [facility] [address] [place] [address] Marcia Helton DMD 12/22/2024 10:15 AM EDT Office Visit [facility] [address] [place] [address] Ann-Marie Camacho MD [address] [place] [address] documented as of this encounter Visit Diagnoses Not on filedocumented in this encounter Additional Health Concerns Assessment Noted Time PHQ-9 Depression Total Score: 6 09/03/19 23 1:13 PM EST documented as of this encounter Care Teams Art Gilder Relationship Specialty Start Date End Date Ann-Marie Camacho MD [address] [place] [address] PCP - General Internal Medicine 02/23/21 documented as of this encounter
--- OUTSIDE RECORDS SUMMARY | 2024-11-04 11:38 | XMS_ITS | Encounter Summary ---
Author Organization [employer] Address [address] [facility] 7t [place] [address] Care Team Providers Care Postal Transportation Clerk Name Role Phone Ann-Marie Camacho MD Primary Care Provider [phone] Encounter Details Date Type Department Care Team (Latest Contact Info) Description 10/27/2024 Travel Social History Tobacco Use Types Packs/Day Years [...] [facility] [address] [place] [address] Nelly Anderson MD [address] [place] [address] 11/11/2024 2:30 PM EDT Office Visit [facility] [address] [place] [address] Marcia Helton DMD 12/22/2024 10:15 AM EDT Office Visit [facility] [address] [place] [address] Ann-Marie Camacho MD [address] [place] [address] documented as of this encounter Visit Diagnoses Not on filedocumented in this encounter Additional Health Concerns Assessment Noted Time PHQ-9 Depression Total Score: 6 09/03/19 23 1:13 PM EST documented as of this encounter Care Teams Postal Transportation Clerk Relationship Specialty Start Date End Date Ann-Marie Camacho MD [address] [place] [address] PCP - General Internal Medicine 02/23/21 documented as of this encounter
--- OUTSIDE RECORDS SUMMARY | 2024-11-04 11:38 | XMS_ITS | Clinical Summary ---
Author Organization [email or web address] Address [address] [facility] 7t [place] [address] Care Team Providers Care Emery Wheel Worker Name Role Phone Ann-Marie Camacho MD Primary Care Provider [phone] Allergies Active Allergy Reactions Criticality Noted Date Comments Wound Dressings 08/15/2022 Other reaction(s): adhesive on patches-skin irritations Carbamazepine 01/02/2022 Other Reaction(s): MIGRAINES Cariprazine 01/02/2022 Other Reaction(s): LEG CRAMPS Cynara Scolymus (Artichoke) Rash Low 08/15/2022 artichoke Fentanyl Rash Low 03/20/2023 Lamotrigine Rash Low 01/02/2022 [place] Other High 01/02/2022 Other reaction(s): bad reaction Other Reaction(s): tremor and falls Penicillins Shortness of breath,Anaphylaxis High 02/23/2021 Other reaction(s): can't breathe, Difficulty breathing, Vomiting Wound Dressing Adhesive Rash Low 03/20/2023 Medications * This document contains information received from the source organization and may not represent a complete record from that organization. butalbital-acetam inophen-caffeine (Fioricet) 50-300-40 MG capsule TAKE 1 CAPSULE BY MOUTH EVERY 6 HOURS NEEDED FOR HEADACHE 05/24/20 22 Active clonazePAM (KlonoPIN) 1 MG tablet TAKE 1 TABLET BY MOUTH TWICE DAILY NEEDED. MAY USE 1 ADDITIONAL FOR ANXIETY. 30 DAY SUPPLY 07/25/20 22 Active cloZAPine (Clozaril) 100 MG tablet take 1 tablet and a half by oral route every bedtime 07/26/20 21 Active glucose 4 g chewable tablet 06/11/20 22 Active Linzess 290 MCG capsule Take 290 mcg by mouth in the morning. 03/23/20 Active Myrbetriq 50 MG 24 hr tablet Take 50 mg by mouth in the morning. 05/21/20 22 Active naratriptan (Amerge) 2.5 MG tablet TAKE 1 TABLET BY MOUTH DAILY NEEDED FOR MIGRAINE HEADACHE. MAY REPEAT DOSE 1 TIME IN 4 HOURS 06/05/20 Active ondansetron (Zofran) 4 MG tablet Take 1 tablet by mouth every 8 (eight) hours. 02/14/20 22 Active pantoprazole (ProtoNix) 40 MG EC tablet 07/05/20 22 Active SITagliptin (Januvia) 100 MG tablet Take 100 mg by mouth. Active tiZANidine (Zanaflex) 4 MG tabletIndications :Acute pain of right shoulder Take 1 tablet (4 mg) by mouth every 6 (six) hours if needed for muscle spasms for up to 10 days. 30 tablet 11/22/19 23 Active baclofen (Lioresal) 10 MG tabletIndications :Muscle spasm Take 1 tablet (10 mg) by mouth 3 times daily for 10 days. 30 tablet 12/19/19 23 Active Januvia 50 MG tablet TAKE 1 TABLET BY MOUTH EVERY DAY 30 tablet 11 11/25/19 24 Active lisinopril 40 MG tablet TAKE 1 TABLET BY MOUTH EVERY DAY 30 tablet 11 11/25/19 24 Active lisinopril 40 MG tablet TAKE 1 TABLET BY MOUTH EVERY DAY 30 tablet 11 11/25/19 24 Active albuterol 108 (90 Base) MCG/ACT inhalerIndication s:Bronchitis Inhale 2 puffs every 6 (six) hours if needed for wheezing. 18 g 01/30/20 24 Active cetirizine (ZyrTEC) 10 MG tablet Take 1 tablet (10 mg) by mouth Once per day. 30 tablet 5 02/04/20 24 Active nicotine (Nicoderm CQ) 21 MG/24HR patch Place 1 patch on the skin 1 (one) time each day at the same time. 30 patch 3 02/04/20 24 Active Beclomethasone Diprop HFA (Qvar) 80 MCG/ACT inhaler Inhale 1 Inhalation. in the morning and at bedtime. Rinse mouth with water after use to reduce aftertaste and incidence of candidiasis. Do not swallow. 10.6 g 1 02/04/20 24 Active fluconazole (Diflucan) 150 MG tabletIndications :PV (pityriasis versicolor) 2 tabs once a week x 2 weeks. 4 tablet 02/24/20 24 Active metoprolol succinate XL (Toprol XL) 100 MG 24 hr tabletIndications :Hypertension, unspecified type Take 1 tablet (100 mg) by mouth Once per day. Do not crush or chew. 30 tablet 11 06/26/20 24 2024 Active rosuvastatin (Crestor) 40 MG tabletIndications :Hyperlipidemia, unspecified hyperlipidemia type Take 1 tablet (40 mg) by mouth Once per day. 90 tablet 1 07/14/20 24 Active metFORMIN (Glucophage) 1000 MG tabletIndications :Type 2 diabetes mellitus without complication, without long-term current use of insulin (CMS/HCC) TAKE 1 TABLET(1000 MG) BY MOUTH EVERY 12 HOURS 180 tablet 1 10/20/19 25 Active metFORMIN (Glucophage) 1000 MG tabletIndications :Type 2 diabetes mellitus without complication, without long-term current use of insulin (CMS/HCC) TAKE 1 TABLET(1000 MG) BY MOUTH EVERY 12 HOURS 180 tablet 1 04/24/20 24 2024 Discontinued Active Problems Problem Noted Date Diagnosed Date [...] connected to a therapist and psychiatrist thru [facility]. At this time Nani Sears meets criteria for Visit Diagnoses: Problem List Items Addressed This Visit Other Major depressive disorder Anxiety disorder, unspecified Patient ready to address current needs Yes Patient has services in place. Strengths include her usage of coping skills PLAN: 1. Follow up with C: Not recommended for follow-up 2. Patient goal [...] Encounters Date Type Department Care Team Description 11/04/2024 Telephone [facility] [address] [place] [address] Ann-Marie Camacho MD Nurse Triage 11/04/2024 Travel 10/27/2024 11:00 AM EST Office Visit [facility] [address] [place] [address] 10/27/2024 Travel 10/20/2024 Refill [facility] [address] [place] [address] Ann-Marie Camacho MD Type 2 diabetes mellitus without complication, without long-term current use of insulin ([facility]) 10/06/2024 11:30 AM EST Office Visit [facility] [address] [place] [address] Cheyenne Beltrán, DDS 10/06/2024 Telephone [facility] [address] [place] [address] Cheyenne Beltrán, DDS 09/16/2024 Orders Only GENERIC EXTERNAL DATA DEPARTMENT Provider, Generic External Data 09/07/2024 Orders Only GENERIC EXTERNAL DATA DEPARTMENT Provider, Generic External Data 08/31/2024 11:30 AM EST Office Visit [facility] [address] [place] [address] Ann-Marie Camacho MD Benign essential hypertension (Primary Dx); Type 2 diabetes mellitus without complication, without long-term current use of insulin ([facility]); Overactive bladder 08/31/2024 Travel 08/30/2024 Orders Only GENERIC EXTERNAL DATA DEPARTMENT Provider, Generic External Data 08/24/2024 Travel 08/21/2024 Patient Outreach [facility] [address] [place] [address] Ann-Marie Camacho MD Pre-visit Planning (SDOH was completed on 05/12/2024) from Last 3 Months Immunizations Name Administration [...] 08/31/2024 11:54 AM EST Plan of Treatment Upcoming Encounters Date Type Department Care Team (Late st Contact Info) Description 11/05/2024 10:30 AM EDT Office Visit [facility] [address] [place] [address] Nelly Anderson MD [address] [place] [address] 11/11/2024 2:30 PM EDT Office Visit [facility] [address] [place] [address] Marcia Helton DMD 12/22/2024 10:15 AM EDT Office Visit [facility] [address] [place] [address] Ann-Marie Camacho MD [address] [place] [address] Health Maintenance Due Date Last Done Comments [...] Exam 05/01/2023 Depression Screening 09/03/2023 09/03/2022, 09/03/19 COVID-19 Vaccine ( season) 2024 01/12/2021, 12/14/2020 Dental X-Ray: Full Mouth 10/25/2024 10/24/2021 Diabetes: Hemoglobin A1C 02/28/2025 025, 05/12/2024, 01/16/2024, Additional history exists Zoster [...] this topic Meningococcal Vaccine Aged Out No fernando josh eligible based on patient's age to [...] AUTO DIFFERENTIAL Routine 08/30/2024 12:50 PM EST PAP SMEAR Routine 07/14/2024 10:44 AM EST Cervical cancer screening HEPATITIS C AB W/REFL TO HCV RNA, QN, PCR Routine 07/13/2024 11:36 AM EST Type 2 diabetes mellitus without complication, without long-term current use of insulin (CMS/HCC) Hypertension, unspecified type Pyodermia LIPID PANEL, STANDARD Routine 07/13/2024 11:36 AM EST Hypertension, unspecified type BI MAMMOGRAM SCREENING TOMOSYNTHESIS BILATERAL Routine 07/03/2024 Encounter for screening mammogram for malignant neoplasm of breast INTRAORAL - COMPLETE SERIES OF RADIOGRAPHIC IMAGES Routine 10/24/2021 12:00 [...] EST Narrative 09/16/2024 9:32 PM EST ? [facility] ?[address] ?[place] [address] ? CT Scan Report ? Signed ? Patient: Orion,Nani A ?MR#: [id number] ?? [id number] ? : 1975 ?Acct:[id number] ? Age/Sex: 49 / F ?ADM Date: 01/22/25 ? Loc: HO.ED ? Attending Dr: ? Ordering Physician: Moose Ponce ?? Date of Service: 09/16/24 ?? Procedure(s): CT abdomen pelvis wo IV con ?? Accession Number(s): [id number] ? cc: Moose Ponce; Ann-Marie Camacho MD ? Report Number: ?? [id number]: Total DLP = 1159.00 mGy-cm ? CLINICAL [...] ? DD/ 29 ? TD/TT: 09/16/242129 ? Tray Server: ? Procedure Note Bessy Sullivan - 09/16/[address] [address] [address] Scan Report Signed Patient: Nani Sears AMR#: [id number] : 1975Acct:[id number] Age/Sex: 49 / FADM Date: 09/16/24 Loc: HO.ED Attending Dr: Ordering Physician: Moose Ponce Date of Service: 09/16/24 Procedure(s): CT abdomen pelvis wo IV con Accession Number(s): [id number] cc: Moose Ponce; Ann-Marie Camacho MD Report Number: [id number]: Total DLP = 1159.00 mGy-cm CLINICAL HISTORY: [...] in OV> 09/16/242130 DD/ 29 TD/TT: 09/16/242129 Tray Server: [facility] External Provider IMG CT PROCEDURES Edited Result - Final * Urinalysis w/reflex microscopic (09/16/2024 8:11 PM EST) Color Urine Yellow [facility] Appearance Urine Clear [facility] PH 7.0 5.0 - 9.0 [facility] Glucose Urine UA Negative Negative mg/dL [facility] Urine Blood Negative Negative [facility] Specific [place] - Urine <=1.005 1.005 - 1.025 [facility] Urine Protein Negative Neg-Trace mg/dL [facility] Urine Ketones Negative Negative mg/dL [facility] Nitrite Urine Negative Negative [facility] Leukocyte Esterase Urine Negative Negative [facility] 09/16/2024 8:11 PM EST 09/16/2024 8:14 PM EST Narrative [facility] - 09/16/2024 8:20 PM EST [id number], Clean Catch us Generic External Data Provider LAB URINE ORDERAB LES Final Result [facility] [address] [place] [address] [phone] * (ABNORMAL) CBC auto differential (09/16/2024 3:17 PM EST) Only the most recent of3 resultswithin the time period is included. White Blood Count 10.4 4.8 - 10.8 X10*3/uL [facility] Red Blood Count 4.41 4.20 - 5.50 X10*6/uL [facility] Hemoglobin 13.7 12.0 - 16.0 g/dl [facility] Hematocrit 40.7 37.0 - 47.0 % [facility] Mean Corpuscular Volume 92.3 80.0 - 98.0 fL [facility] Mean Corpuscular Hemoglobin 31.1 27.0 - 33.0 pg [facility] Mean Corpuscular HGB Conc 33.7 31.0 - 35.0 g/dl [facility] Red Cell Distribution Width 12.5 11.0 - 16.0 % [facility] Platelet Count 232 160 - 400 X10*3/uL [facility] Mean Platelet Volume 9.3(L) 9.4 - 12.3 fL [facility] Neutrophils Percent Auto 60.2 45 - 73 % [facility] Imm Gran Pct Auto 0.3 0.0 - 0.4 % [facility] Lymphocytes Percent Auto 33.2 20 - 40 % [facility] Monocytes Percent Auto 6.0 2 - 11 % [facility] Eosinophils Percent Auto 0.0 0 - 4 % [facility] Basophils Percent Auto 0.3 0 - 2 % [facility] NRBC Pct Auto 0.0 0.0 - 0.2 /100WBC [facility] Neutrophils Absolute Auto 6.2 2.0 - 8.3 x10*3/uL [facility] Imm Gran Abs Auto 0.03 0.00 - 0.03 X10*3/uL [facility] Lymphocytes Absolute Auto 3.4 1.2 - 4.9 X10*3/uL [facility] Monocytes Absolute Auto 0.6 0.1 - 1.2 X10*3/uL [facility] Eosinophils Absolute Auto 0.0 0.0 - 0.4 X10*3/uL [facility] Basophils Absolute Auto 0.0 0.0 - 0.2 X10*3/uL [facility] NRBC Abs Auto 0.000 0.0 - 0.012 X10*3/uL [facility] 09/16/2024 3:17 PM EST 09/16/2024 3:19 PM EST us Generic External Data Provider LAB BLOOD ORDERAB LES Final Result [facility] [address] [place] [phone] * hCG, Total, Quantitative (09/16/2024 3:17 PM EST) Only the most recent of2 resultswithin the time period is included. HCG Quantitative 5 mIU/mL [facility] Comment:Weeks post LMP Appro ximate hCG(Last Menstrual Period) Range (mIU/ml)3 - 4 weeks 9 - 1304 - 5 weeks 75 - 2,6005 - 6 weeks 850 - 20,8006 - 7 weeks 4000 - 100,2007 - 12 weeks 11,500 - 289,09946 - 16 weeks 18,300 - 137,49603 - 29 weeks (2nd trimester) 1,400 - 53,74336 - 41 weeks (3rd trimester) 940 - [...] ORDERAB LES Final Result Performing Organization Address [facility]/ZIP Co de Phone Number [facility] [address] [place] [address] [phone] * Lipase (09/16/2024 3:17 PM EST) Pathologist [facility] Lipase 30 8 - 78 U/L [facility] 09/16/2024 3:17 PM EST 09/16/2024 3:19 PM EST Generic External Data Provider LAB BLOOD ORDERAB LES Final Result Performing Organization Address [facility] Co de Phone Number [facility] [address] [place] [address] [phone] * (ABNORMAL) Comprehensive Metabolic Panel (09/16/2024 3:17 PM EST) Only the most recent of2 resultswithin the time period is included. Sodium 145 135 - 145 mmol/L [facility] Potassium 3.9 3.3 - 5.1 mmol/L [facility] Chloride 107 96 - 108 mmol/L [facility] Carbon Dioxide 27 22 - 29 mmol/L [facility] Anion Gap 15 12 - 20 [facility] Urea Nitrogen (BUN) 10 9 - 16 mg/dL [facility] Creatinine, Serum 0.75 0.5 - 1.4 mg/dL [facility] Creatinine Clr Calc Pharmacy 108.6 [facility] Comment:Provided height and weight: 170.18 cm,97.2 kg.eGFR (calculated from the MDRD study equation) and eCrCl(calculated from the Cockcroft-Gault equation) are based ondifferent parameters and may not yield comparable results.If eCrCl result is absurd, please check patient'sheight/weight. Estimated Glomerular Filt Rate >60 [facility] Comment:Chronic Kidney Disea se: Estimated GFR < 60 mL/min/1.97e5Tixghb Kidney Disease: Estimated GFR < 15 mL/min/1.73m2 Glucose 123(H) 60 - 115 mg/dL [facility] Calcium 9.8 8.4 - 10.2 mg/dL [facility] Bilirubin, Total 0.3 0.0 - 1.0 mg/dL [facility] Aspartate Amino Transferase 27 5 - 31 U/L [facility] Alanine Aminotransferase 36(H) 0 - 31 U/L [facility] Total Protein 7.6 6.5 - 8.0 g/dL [facility] Albumin Level 4.5 3.5 - 5.0 g/dL [facility] Alkaline Phosphatase 64 39 - 117 U/L [facility] 09/16/2024 3:17 PM EST 09/16/2024 3:19 PM EST us Generic External Data Provider LAB BLOOD ORDERAB LES Final Result Performing Organization Address City/State/[facility] Co de Phone Number [facility] [address] [place] [phone] * POCT Glucose (08/31/2024 1:19 PM EST) Glucose Blood, POC 177 60 - 200 mg/dL QC Media Lot # [id number] Lot# Expiration Date 485,025 Blood Capillary blood specimen / Unknown 08/31/2024 1:19 PM EST us Ann-Marie Camacho MD POINT OF CARE TEST ENTER/ED IT ORDERABLES Final Result * (ABNORMAL) POCT HGB A1C (08/31/2024 1:18 PM EST) Hemoglobin A1C 6.7(A) 4.0 - 6.0 % QC Media Lot # [id number] Lot# Expiration Date 81,026 Blood 08/31/2024 1:18 PM EST us Ann-Marie Camacho MD POINT OF CARE TEST ENTER/ED IT ORDERABLES Final Result * Urinalysis, Complete, with Reflex to Culture (08/30/2024 12:50 PM EST) Color Urine Yellow [facility] Appearance Urine Clear [facility] PH 7.0 5.0 - 9.0 [facility] Glucose Urine UA Negative Negative mg/dL [facility] Urine Blood Trace Negative [facility] Specific [place] - Urine 1.010 1.005 - 1.025 [facility] Urine Protein Negative Neg-Trace mg/dL [facility] Urine Ketones Negative Negative mg/dL [facility] Nitrite Urine Negative Negative [facility] Leukocyte Esterase Urine Negative Negative [facility] RBC Urine 0-2 0 - 2 /HPF [facility] Urine WBC 0-5 0 - 5 /HPF [facility] Urine Squamous Epithelial Cell 0-2 0 - 2 /HPF [facility] Urine Bacteria None Seen None Seen [facility] Hyaline Casts, Urine 0-2 0 - 2 /LPF [facility] 08/30/2024 12:5 0 PM EST 08/30/2024 12:53 PM EST Narrative [facility] - 08/30/2024 1:05 PM EST [id number], Clean Catch us Generic External Data Provider LAB URINE ORDERAB LES Final Result [facility] [address] [place] [phone] * HCG, Qualitative, Urine (08/30/2024 12:50 PM EST) Urine NEGATIVE NEGATIVE [facility] Comment:This test was develo ped to detect early . Falsenegative results may occur after the 5th - 7th week ofpregnancy when using this test method. If clinicallyindicated, consider a serum hCG. 08/30/2024 12:5 0 PM EST 08/30/2024 12:53 PM EST us Generic External Data Provider LAB URINE ORDERAB LES Final Result [facility] [address] [place] [address] [phone] * Pap Smear (07/14/2024 10:44 AM EST) Swab 07/14/2024 10:4 4 AM EST 07/15/2024 9:15 AM EST Narrative [facility] - 07/17/2024 9:28 AM EST ----- ------- Name: Nani Sears ?Age/Sex: 49/F ? : 1975 Unit#: [id number] ?? Attend Dr: Dulce Marvin MD ?Re07/14/24 ?Status: DEP REF ? Location: HO.LNP ?Disch: ? ----- ------- SPEC : [id number] ?RECD: 07/15/24 ? STATUS: ??SOUT ? REQ NUM: [id number] ? CANDELARIO: 07/14/24 ? SUBM DR: Dulce Marvin MD ? ENTERED: ??07/15/24 ?SP TYPE: Pap Smr ?OTHR DR: ? ORDERED: ??Pap Smear ? Interpretation ?? [...] CYTOLOGY ORDERABLES Final Result Performing Organization Address [facility] Co de Phone Number [facility] [address] [place] [phone] * Hepatitis C Antibody with Reflex to HCV, RNA, Quantitative, Real-Time PCR (07/13/2024 11:36 AM EST) Pathologist [facility] Hepatitis C Antibody Nonreactive Nonreactive [facility] Comment:Antibodies to HCV no t detected; does not exclude early acuteHCV infection. Blood Venous blood specimen / Unknown 07/13/2024 11:36 AM EST 07/13/2024 11:36 AM EST us Ann-Marie Camacho MD LAB BLOOD ORDERABLES Final Result Performing Organization Address [facility] Co de Phone Number [facility] [address] [place] [phone] * (ABNORMAL) Lipid Panel, Standard (07/13/2024 11:36 AM EST) Pathologist [facility] Triglycerides 464(H) <150 mg/dL [facility] Comment:Desirable Triglyceri de: less than 150 mg/dLBorderline High Triglyceride 150-199 mg/dLHigh Triglyceride: 200-499 mg/dLVery High Triglyceride: greater than or equal to 5OO mg/dL Cholesterol 236(H) <200 mg/dL [facility] Comment:Desirable Cholestero l: less than 200 mg/dLBorderline High Cholesterol: 200-239 mg/dLHigh Cholesterol: greater than 239 mg/dL LDL Cholesterol Calculated TNP <100 mg/dL [facility] Comment:Unable to calculate the LDL. The formula of Friedwald,Kothari, and Audrey is only valid if the triglycerides areless than 400 mg/dl. HDL Cholesterol 35(L) >40 mg/dL [facility] Comment:Desirable HDL: great er than 40 mg/dL Note: This HDL assay may give artificially low results in patients with liver disease. Blood Venous blood specimen / Unknown 07/13/2024 11:36 AM EST 07/13/2024 11:36 AM EST us Ann-Marie Camacho MD LAB BLOOD ORDERABLES Final Result [facility] [address] [place] [address] [phone] * BI Mammogram Screening Tomosynthesis Bilateral (07/03/2024) [...] Most Recently Relevant to Health Maintenance Insurance [facility] C[facility]IC [facility] Care Teams Emery Wheel Worker Relationship Specialty Start Date End Date Ann-Marie Camacho MD [address] [place] [address] LEILA Kam [id number] PCP - General Internal Medicine 02/23/21
--- OUTSIDE RECORDS SUMMARY | 2024-11-04 11:38 | XMS_ITS | Encounter Summary ---
Author Organization [facility] Address [address] [place] [address] Care Team Providers Care Marine Welder Name Role Phone Don Hudson MD Primary Care Provider Unavail able Encounter Details Date Type Department Care Team (Late st Contact Info) Description 06/24/2024 11:46 AM EDT Hospital Encounter TH HISTORIC ENCOUNTERS [facility] ONLY Harsh Proctor MD [address] [place] [id number] Social History Tobacco Use Types Packs/Day Years [...] AM EDT Narrative 06/24/2024 2:43 PM EDT [facility] Diagnostic Imaging Department [address] [place] [address] [id number] Patient: ??FELICIA SEARS ?/Age/Sex: 1975 - 49 - F Unit#: ??[id number] ? Location/Status: ??SPDIGEN/REG CLI ? Mnemonic/Ordering Site: [...] by: ??ANIRUDH ADKINS MD Dic Date/Time: ??06/24/24 1445 Sign date/Time: ??06/24/24 1448 Procedure Note Anirudh Adkins MD - 06/27/2024 [facility] Diagnostic Imaging Department [address] [place] [id number] Patient: FELICIA SEARS Caryn /Age/Sex: 1975 - 49 - F Unit#: [id number] Location/Status: SPDIGEN/REG CLI Mnemonic[facility] Order[facility] Physician: HARSH PROCTOR MD DR Abdomen [...] on filedocumented in this encounter Care Teams Marine Welder Relationship Specialty Start Date End Date Don Hudson MD PCP - General 03/30/02 documented as of this encounter
--- OUTSIDE RECORDS SUMMARY | 2024-11-04 11:38 | XMS_ITS | Encounter Summary ---
Author Organization [employer] Address [address] [facility] 7t [place] [address] Care Team Providers Care Volleyball Assembler Name Role Phone Ann-Marie Camacho MD Primary Care Provider [phone] Encounter Details Date Type Department Care Team (Late st Contact Info) Description 06/25/2024 Orders Only [facility] [address] [place] [address] ProviderRoseanna MD Social History Tobacco Use Types [...] Description 11/05/2024 10:30 AM EDT Office Visit [facility] MED & PEDS [address] [place] [address] Nelly Anderson MD [address] [place] [address] 11/11/2024 2:30 PM EDT Office Visit [facility] ADULT DENTAL [address] [place] [address] Marcia Helton DMD 12/22/2024 10:15 AM EDT Office Visit [facility] MED & PED[facility] [address] [place] [address] Ann-Marie Camacho MD [address] [place] [address] documented as of this encounter Procedures Procedure Name Priority Date/Time Associated Diagnosis Comments XR ABDOMEN FLAT AND UPRIGHT Routine 06/24/2024 9:55 AM EDT documented in this encounter Results * XR ABDOMEN FLAT AND UPRIGHT (06/24/2024 9:55 AM EDT) Anatomical Region Laterality Modality Radiographic Naila ging us Historical Provider MD ELIAS XR PROCEDURES Final R esult documented in this encounter Visit Diagnoses Not on filedocumented in this encounter Additional Health Concerns Assessment Noted Time PHQ-9 Depression Total Score: 6 09/03/19 23 1:13 PM EST documented as of this encounter Care Teams Volleyball Assembler Relationship Specialty Start Date End Date Ann-Marie Camacho MD [address] [place] [address] PCP - General Internal Medicine 02/23/21 documented as of this encounter
--- OUTSIDE RECORDS SUMMARY | 2024-11-04 11:38 | XMS_ITS | Encounter Summary ---
Author Organization [employer] Address 75 [facility] 7t [place] [address] Care Team Providers Care Bibliographic Services Specialist Name Role Phone Ann-Marie Camacho MD Primary Care Provider [phone] Encounter Details Date Type Department Care Team (Latest Contact Info) Description 11/04/2024 Travel Social History Tobacco Use Types Packs/Day [...] 11/05/2024 10:30 AM EDT Office Visit [facility] [address] [place] [address] Nelly Anderson MD [address] [place] [address] 11/11/2024 2:30 PM EDT Office Visit [facility] ADULT DENT[facility] [address] [place] [address] Marcia Helton DMD 12/22/2024 10:15 AM EDT Office Visit [facility] [address] [place] [address] Ann-Marie Camacho MD [address] [place] [address] documented as of this encounter Visit Diagnoses Not on filedocumented in this encounter Additional Health Concerns Assessment Noted Time PHQ-9 Depression Total Score: 6 09/03/19 23 1:13 PM EST documented as of this encounter Care Teams Bibliographic Services Specialist Relationship Specialty Start Date End Date Ann-Marie Camacho MD [address] [place] [address] PCP - General Internal Medicine 02/23/21 documented as of this encounter
--- OUTSIDE RECORDS SUMMARY | 2024-11-04 11:38 | XMS_ITS | Encounter Summary ---
Author Organization [employer] Address [address] [facility] [address] 7t [place] [address] Care Team Providers Care Leather Etcher Name Role Phone Ann-Marie Camacho MD Primary Care Provider [phone] Encounter Details Date Type Department Care Team ([facility] st Contact Info) Description 10/27/2024 11:00 AM EST Office Visit [facility] OPTOMETRY [address] [place] [address] Social History Tobacco Use Types Packs/Day Years [...] Description 11/05/2024 10:30 AM EDT Office Visit [facility] MED & PEDS [address] [place] [address] Nelly Anderson MD [address] [place] [address] 11/11/2024 2:30 PM EDT Office Visit [facility] ADULT DENTAL [address] [place] [address] Marcia Helton DMD 12/22/2024 10:15 AM EDT Office Visit [facility] MED & PEDS [address] [place] [address] Ann-Marie Camacho MD [address] [place] [address] documented as of this encounter Visit Diagnoses Not on filedocumented in this encounter Additional Health Concerns Assessment Noted Time PHQ-9 Depression Total Score: 6 09/03/19 23 1:13 PM EST documented as of this encounter Care Teams Leather Etcher Relationship Specialty Start Date End Date Ann-Marie Camacho MD [address] [place] [address] PCP - General Internal Medicine 02/23/21 documented as of this encounter
--- OUTSIDE RECORDS SUMMARY | 2024-11-04 11:38 | XMS_ITS | Clinical Summary ---
Author Organization [facility] [place] [address] Phone Care Team Providers Care Reporting Analyst Name Role Phone Don Hudson MD Primary [...] 1975 DTaP,Tdap,and Td Vaccines (1 - Tdap) 1994 Hepatitis B Vaccines (1 of 3 [...] age to complete this topic Care Teams Reporting Analyst Relationship Specialty Start Date End Date Don Hudson MD PCP - General 03/30/02
--- OUTSIDE RECORDS SUMMARY | 2024-11-04 11:38 | XMS_ITS | Encounter Summary ---
Author Organization [employer] Address [address] [place] [address] [address] [place] [address] Care Team Providers Care Customer Support Consultant Name Role Phone Ann-Marie Camacho MD Primary Care Provider [phone] Reason for Visit * Reason Onset Date Comments Error 10/22/2023 Encounter Details Date Type Department Care Team ([facility] Contact Info) Description 10/22/2023 Telephone [facility] MEDICINE [address] [place], [place] [phone] Ann-Marie Camacho MD [address] [place], [place] [phone] Error Social History Tobacco Use Types Packs/Day [...] Upcoming Encounters Date Type Department Care Team ([facility] Contact Info) Description 11/05/2024 10:30 AM EDT Office Visit [facility] MED & PEDS [address] [place], [place] [phone] Nelly Anderson MD [address] [place], [place] [phone] 11/11/2024 2:30 PM EDT Office Visit [facility] ADULT DENTAL [address] [place] [address] Marcia Helton DMD 12/22/2024 10:15 AM EDT Office Visit [facility] MED & PEDS [address] [place] [address] Ann-Marie Camacho MD [address] [place] [address] documented as of this encounter Visit Diagnoses Not on filedocumented in this encounter Additional Health Concerns Assessment Noted Time PHQ-9 Depression Total Score: 6 09/03/19 23 1:13 PM EST documented as of this encounter Care Teams Customer Support Consultant Relationship Specialty Start Date End Date Ann-Marie Camacho MD [address] [place] [address] PCP - General Internal Medicine 02/23/21 documented as of this encounter
--- OUTSIDE RECORDS SUMMARY | 2024-11-04 11:38 | XMS_ITS | Encounter Summary ---
Author Organization [employer] Address 75 [facility] 7t [place] [address] Care Team Providers Care Fire Alarm Dispatcher Name Role Phone Ann-Marie Camacho MD Primary Care Provider [phone] Encounter Details Date Type Department Care Team (Latest Contact Info) Description 07/13/[address] [facility] CHC MED & PEDS [address] [place], [place] [phone] Ann-Marie Camacho MD [address] [place], [place] [phone] Pure hypercholesterolemia (Primary Dx) Social History Tobacco [...] [facility] MED & PED[facility] [address] [place] [address] Nelly Anderson MD [address] [place] [address] 11/11/2024 2:30 PM EDT Office Visit [facility] ADULT DENTAL [address] [place] [address] Marcia Helton DMD 12/22/2024 10:15 AM EDT Office Visit [facility] MED & PEDS [address] [place] [address] Ann-Marie Camacho MD [address] [place] [address] documented as of this encounter Visit Diagnoses Diagnosis Pure hypercholesterolemia- Primary documented in this encounter Additional Health Concerns Assessment Noted Time PHQ-9 Depression Total Score: 6 09/03/19 23 1:13 PM EST documented as of this encounter Care Teams Fire Alarm Dispatcher Relationship Specialty Start Date End Date Ann-Marie Camacho MD [address] [place] [address] PCP - General Internal Medicine 02/23/21 documented as of this encounter
--- OUTSIDE RECORDS SUMMARY | 2024-11-04 11:38 | XMS_ITS | Encounter Summary ---
Author Organization [employer] Address 75 [facility] 7t [place] [address] Care Team Providers Care Biodiesel Product Manager Name Role Phone Ann-Marie Camacho MD Primary Care Provider [phone] Reason for Visit * Reason Comments Med Refill Encounter Details Date Type Department Care Team ([facility] st Contact Info) Description 10/20/2024 Refill [facility] CHC MED & PEDS [address] [place], [place] [phone] Ann-Marie Camacho MD [address] [place] [address] Type 2 diabetes mellitus without complication, without long-term current use of insulin ([facility]) Social History Tobacco Use Types Packs/Day Years [...] Description 11/05/2024 10:30 AM EDT Office Visit [facility] MED & PEDS [address] [place] [address] Nelly Anderson MD [address] [place] [address] 11/11/2024 2:30 PM EDT Office Visit [facility] ADULT DENTAL [address] [place] [address] Marcia Helton DMD 12/22/2024 10:15 AM EDT Office Visit [facility] MED & PEDS [address] [place] [address] Ann-Marie Camacho MD [address] [place] [address] documented as of this encounter Visit Diagnoses Diagnosis Type 2 diabetes mellitus without complication, without long-term current use of insulin ([facility]) documented in this encounter Additional Health Concerns Assessment Noted Time PHQ-9 Depression Total Score: 6 09/03/19 23 1:13 PM EST documented as of this encounter Care Teams Biodiesel Product Manager Relationship Specialty Start Date End Date Ann-Marie Camacho MD [address] [place] [address] PCP - General Internal Medicine 02/23/21 documented as of this encounter
--- OUTSIDE RECORDS SUMMARY | 2024-11-04 11:38 | XMS_ITS | Encounter Summary ---
Author Organization [employer] Address [address] [facility] [address] [place] [address] Care Team Providers Care Director [place] Name Role Phone Ann-Marie Camacho MD Primary Care Provider [phone] Encounter Details Date Type Department Care Team ([facility] st Contact Info) Description 10/06/2024 Telephone [facility] CHC ADULT DENTAL [address] [place] [address] Cheyenne Beltrán DDS [address] [place] [address] Social History Tobacco Use Types Packs/Day Years [...] t he electric, gas, oil or water [employer] threatened to shut off services in your [...] encounter Miscellaneous Notes * Telephone Encounter - Quan Williamson - 10/06/2024 9:42 AM EST patient [...] Description 11/05/2024 10:30 AM EDT Office Visit [facility] MED & PEDS [address] [place] [address] Nelly Anderson MD [address] [place] [address] 11/11/2024 2:30 PM EDT Office Visit [facility] ADULT DENTAL [address] [place] [address] Marcia Helton DMD 12/22/2024 10:15 AM EDT Office Visit [facility] MED & PEDS [address] [place] [address] Ann-Marie Camacho MD [address] [place] [address] documented as of this encounter Visit Diagnoses Not on filedocumented in this encounter Additional Health Concerns Assessment Noted Time PHQ-9 Depression Total Score: 6 09/03/19 23 1:13 PM EST documented as of this encounter Care Teams Director China Relationship Specialty Start Date End Date Ann-Marie Camacho MD [address] [place] [address] PCP - General Internal Medicine 02/23/21 documented as of this encounter
--- OUTSIDE RECORDS SUMMARY | 2024-11-04 11:38 | XMS_ITS | Encounter Summary ---
Author Organization [employer] Address [address] [place] [address] 7 [place] [address] Care Team Providers Care Aligner Name Role Phone Ann-Marie Camacho MD Primary Care Provider [phone] Reason for Visit * Reason Comments Med Refill Encounter Details Date Type Department Care Team ([facility] Contact Info) Description 03/17/2023 Refill [facility] MED & PEDS [address] [place], [place] [phone] Ann-Marie Camacho MD [address] [place] [address] Social History Tobacco Use Types Packs/Day Years [...] Upcoming Encounters Date Type Department Care Team ([facility] Contact Info) Description 11/05/2024 10:30 AM EDT Office Visit [facility] MED & PEDS [address] [place], [place] [phone] Nelly Anderson MD [address] [place], [place] [phone] 11/11/2024 2:30 PM EDT Office Visit [facility] ADULT DENTAL [address] [place] [address] Marcia Helton DMD 12/22/2024 10:15 AM EDT Office Visit [facility] MED & PEDS [address] [place] [address] Ann-Marie Camacho MD [address] [place] [address] documented as of this encounter Visit Diagnoses Not on filedocumented in this encounter Additional Health Concerns Assessment Noted Time PHQ-9 Depression Total Score: 6 09/03/19 23 1:13 PM EST documented as of this encounter Care Teams Aligner Relationship Specialty Start Date End Date Ann-Marie Camacho MD [address] [place] [address] PCP - General Internal Medicine 02/23/21 documented as of this encounter
--- OUTSIDE RECORDS SUMMARY | 2024-11-04 11:38 | XMS_ITS | Encounter Summary ---
Author Organization [employer] Address [address] [place] [address] 7t [place] [address] Care Team Providers Care Hazardous Waste Remover Name Role Phone Ann-Marie Camacho MD Primary Care Provider [phone] Encounter Details Date Type Department Care Team (Late Contact Info) Description 12/05/2022 Abstract [facility] MED & PEDS [address] [place] [address] Ann-Marie Camacho MD [address] [place] [address] Social History Tobacco Use Types Packs/Day Years [...] Description 11/05/2024 10:30 AM EDT Office Visit [facility] MED & PEDS [address] [place] [address] Nelly Anderson MD [address] [place] [address] 11/11/2024 2:30 PM EDT Office Visit [facility] ADULT DENTAL [address] [place], [place] [phone] Marcia Helton DMD 12/22/2024 10:15 AM EDT Office Visit [facility] MED & PEDS [address] [place] [address] Ann-Marie Camacho MD [address] [place] [address] documented as of this encounter Procedures Procedure [...] documented as of this encounter Care Teams Hazardous Waste Remover Relationship Specialty Start Date End Date Ann-Marie Camacho MD [address] [place] [address] PCP - General Internal Medicine 02/23/21 documented as of this encounter
[2024-11-04 11:42] LABS: Basophils Percent Auto 0.2 % (0-2); Hematocrit 40.6 % (37.0-47.0); Hemoglobin 13.1 g/dl (12.0-16.0); Imm Gran Abs Auto 0.01 X10*3/uL (0.00-0.03); Imm Gran Pct Auto 0.1 % (0.0-0.4); Lymphocytes Absolute Auto 2.6 X10*3/uL (1.2-4.9); Mean Corpuscular HGB Conc 32.3 g/dl (31.0-35.0); Mean Corpuscular Hemoglobin 29.5 pg (27.0-33.0); Mean Corpuscular Volume 91.4 fL (80.0-98.0); Mean Platelet Volume 10.7 fL (9.4-12.3); Monocytes Absolute Auto 0.4 X10*3/uL (0.1-1.2); Monocytes Percent Auto 4.7 % (2-11); Neutrophils Absolute Auto 5.5 x10*3/uL (2.0-8.3); Platelet Count 239 X10*3/uL (160-400); Red Blood Count 4.44 X10*6/uL (4.20-5.50); Red Cell Distribution Width 12.2 % (11.0-16.0); WBCANC 8.5 X10*3/uL; White Blood Count 8.5 X10*3/uL (4.8-10.8)
== END 2024-11-04 10:10 | disposition home or self-care (01) ==
LOC: HO.LABR 10:09
PROVIDERS: PCP Internal Medicine; Visit Provider Clinical Nurse Specialist Psychiatric/Mental Health, Child & Adolescent
DX: Z79.899 Other long term (current) drug therapy (principal)
CPT/HCPCS: 36415; 85025

== ENCOUNTER 2024-12-22 11:01 | Outpatient (REF) | payer BC, MEDICARE, SELFPAY ==
--- OUTSIDE RECORDS SUMMARY | 2024-12-22 12:49 | XMS_ITS | Clinical Summary ---
Author Organization [facility] Address [address] [address] Care Team Providers Care Maintenance And Operations Supervisor Name Role Phone Ann-Marie Camacho MD Primary Care Provider [phone] Allergies Active Allergy Reactions Criticality Noted Date Comments Carbamazepine 01/02/2022 Cariprazine 01/02/2022 Lamotrigine Rash Low 01/02/2022 [place] Other (see comments) 01/02/2022 Penicillins Shortness of [...] Health Maintenance Due Date Last Done Comments Hepatitis B Vaccine (1 of 3 - 19+ 3-dose series) 05/11 Pneumococcal Vaccine: Peds ( 0 to 5 Years) and At-Risk Patients (6 to 49 Years) (1 of 2 - PCV) 1994 Diabetes: Hemoglobin A1C 11/21/2021 Diabetes: Ophthalmology Exam 11/21/2021 Diabetes: Pedal Pulse Checked 11/21/2021 Diabetes: Sensory Foot Exam 11/21/2021 Diabetes: Visual Foot Exam 11/21/2021 Colorectal Cancer Screening: Annual FOBT 2024 Colorectal Cancer Screening: Colonoscopy 2024 Colorectal Cancer Screening: Sigmoidoscopy 2024 Influenza Vaccine (Season Ended) 2025 Insurance Generic Commercial [facility] Medicare Generic Commercial Care Teams Maintenance And Operations Supervisor Relationship Specialty Start Date End Date Ann-Marie Camacho MD [address] [place] [address] PCP - General Internal Medicine 07/14/21
--- OUTSIDE RECORDS SUMMARY | 2024-12-22 12:49 | XMS_ITS | Encounter Summary ---
Author Organization [employer] Address [address] [place] [address] 7t [place] [address] Care Team Providers Care Shingle Inspector Name Role Phone Ann-Marie Camacho MD Primary Care Provider [phone] Reason for Visit * Reason Comments Med Refill Encounter Details Date Type Department Care Team ([facility] Contact Info) Description 10/23/2022 Refill [facility] MEDICINE [address] [place] [address] Ann-Marie Camacho MD [address] [place], [place] [phone] Type 2 diabetes mellitus without complication, without long-term current use of insulin ([facility]) Social History Tobacco Use Types Packs/Day Years [...] Upcoming Encounters Date Type Department Care Team ([facility] Contact Info) Description 03/24/2025 10:30 AM EDT Office Visit [facility] CHC MED & PEDS [address] [place], [place] [phone] Ann-Marie Camacho MD [address] [place] [address] documented as of this encounter Visit Diagnoses Diagnosis Type 2 diabetes mellitus without complication, without long-term current use of insulin ([facility]) documented in this encounter Additional Health Concerns Assessment Noted Time PHQ-9 Depression Total Score: 6 09/03/19 23 1:13 PM EST documented as of this encounter Care Teams Shingle Inspector Relationship Specialty Start Date End Date Ann-Marie Camacho MD [address] [place] [address] PCP - General Internal Medicine 02/23/21 documented as of this encounter
--- OUTSIDE RECORDS SUMMARY | 2024-12-22 12:50 | XMS_ITS | Encounter Summary ---
Author Organization [employer] Address [address] [facility] [address] [place] [address] Care Team Providers Care Foam Caster Name Role Phone Ann-Marie Camacho MD Primary Care Provider [phone] Encounter Details Date Type Department Care Team (Latest Contact Info) Description 12/22/2024 9:15 AM EDT Office Visit [facility] OPTOMETRY [address] [place], [place] [id number] Wendy Tobar, OD [address] [place] [address] Type 2 diabetes mellitus without ophthalmic manifestations (CMS/HCC) (Primary Dx); Open angle with borderline findings, low risk, bilateral; Myopia, bilateral Social History Tobacco Use Types Packs/Day Years Used Date Smoking Tobacco: Every Day Cigarettes Passive Smoke Exposure: Current Smokeless Tobacco: Current Alcohol Use Standard Drinks/Week Comments Never 0 (1 standard drink = 0.6 oz pur e alcohol) Depression Answer Date Recorded Patient Health Questionnaire-9 Score 0 11/26/2024 Patient Health Questionnaire-9 Score 0 11/26/2024 Last PHQ-9: Questionnaire Data Not on file 0 11/26/2024 Housing Stability Answer Date Recorded What is [...] Answer Date Recorded Patient Health Questionnaire-2 Score 0 11/26/2024 Internet Access Answer Date Recorded Internet Access [...] as of this encounter Progress Notes * Wendy Tobar, OD - 12/22/2024 9:15 AM EDT Eye Care Progress Note Patient ID: Felicia Fletcher is a 49 y.o. female. HPI Patient presents for diabetic eye exam. Patient was diagnosed with T2DM in 2021. Patient's last A1cwas 7.0% on 11/26/24. Patient only checks BSL at home occasionally. Patient reports flashing OD then OS last week for 10 mins. Patient reports longstanding floaters OU. Patient is happy with distance vision both eyes (OU) through current glasses. She removes specs forreading. TONY: 2 years ago; followed for large optic nerves previously Last edited by Wendy Tobar, OD on 12/22/2024 12:11 PM. Current Outpatient Medications Medication Sig Dispense Refill acetaminophen (Tylenol) 500 MG tablet Take 1 tablet (500 mg) by mouth every 6 (six) hours if neededfor mild pain for up to 20 doses. 20 tablet 0 acetaminophen (Tylenol) 500 MG tablet Take 1 tablet (500 mg) by mouth every 6 (six) hours if neededfor moderate pain or mild pain for up to 15 doses. 15 tablet 0 albuterol 108 (90 Base) MCG/ACT inhaler Inhale 2 puffs every 6 (six) hours if needed for wheezing. 18 g 0 Alcohol Swabs 70 % pads Use to test blood sugar 1 times daily 100 each 11 azithromycin (Zithromax) 250 MG tablet Take (2) tabs 1st day; take (1) tab next 4 days. 6 tablet 0 baclofen (Lioresal) 10 MG tablet Take 1 tablet (10 mg) by mouth 3 times daily for 10 days. 30 tablet 0 Beclomethasone Diprop HFA (Qvar) 80 MCG/ACT inhaler Inhale 1 Inhalation. in the morning and at bedtime. Rinse mouth with water after use to reduce aftertaste and incidence of candidiasis. Do not swallow. 10.6 g 1 Blood Glucose Monitoring Suppl (FreeStyle [place] Lite) w/Device kit Use to test blood sugar 1 times daily 1 kit 0 Blood Glucose Monitoring Suppl (FreeStyle [place] Lite) w/Device kit Use to test blood sugar 1 times daily 1 kit 0 Blood Glucose Monitoring Suppl (OneTouch Verio) w/Device kit 1 Units Once per day. 1 kit 0 fsjbcayanq-jpsmwkfuiepje-dowyflhx (Fioricet) 50-300-40 MG capsule TAKE 1 CAPSULE BY MOUTH EVERY 6 HOURS NEEDED FOR HEADACHE cetirizine (ZyrTEC) 10 MG tablet Take 1 tablet (10 mg) by mouth Once per day. 30 tablet 5 chlorhexidine (Peridex) 0.12 % solution Swish 15 mL morning and night for 1 minute. Spit, do not swallow. Do not eat or drink for 30 minutes following use. 473 mL 0 clonazePAM (KlonoPIN) 1 MG tablet TAKE 1 TABLET BY MOUTH TWICE DAILY NEEDED. MAY USE 1 ADDITIONAL FOR ANXIETY. 30 DAY SUPPLY cloZAPine (Clozaril) 200 MG tablet Diclofenac Sodium 1 % gel To apply to the affected area 3 times a day 100 g 0 empagliflozin (Jardiance) 10 MG Take 1 tablet (10 mg) by mouth Once per day. 30 tablet 11 fluconazole (Diflucan) 150 MG tablet 2 tabs once a week x 2 weeks. 4 tablet 0 FREESTYLE LITE test strip Use to test blood sugar 1 times daily 100 each 12 glucose 4 g chewable tablet glucose blood test strip To use once a day 100 each 12 Lancet Devices (Autolet) lancing device 1 each by Other route Once per day. 1 each 0 Lancets misc Use to test blood sugar 1 times daily 100 each 0 Linzess 290 MCG capsule Take 290 mcg by mouth in the morning. lisinopril 40 MG tablet TAKE 1 TABLET BY MOUTH EVERY DAY 30 tablet 11 lisinopril 40 MG tablet TAKE 1 TABLET BY MOUTH EVERY DAY 30 tablet 11 metFORMIN (Glucophage) 1000 MG tablet TAKE 1 TABLET(1000 MG) BY MOUTH EVERY 12 HOURS 180 tablet 1 metoprolol succinate XL (Toprol XL) 100 MG 24 hr tablet Take 1 tablet (100 mg) by mouth Once per day. Do not crush or chew. 30 tablet 11 Myrbetriq 50 MG 24 hr tablet Take 50 mg by mouth in the morning. nicotine (Nicoderm CQ) 21 MG/24HR patch Place 1 patch on the skin 1 (one) time each day at the sametime. 30 patch 3 ondansetron (Zofran) 4 MG tablet Take 1 tablet by mouth every 8 (eight) hours. ondansetron (Zofran) 4 MG tablet Take 1 tablet (4 mg) by mouth every 8 (eight) hours if needed for nausea or vomiting for up to 7 days. 20 tablet 0 pantoprazole (ProtoNix) 40 MG EC tablet tiZANidine (Zanaflex) 4 MG tablet Take 1 tablet (4 mg) by mouth every 6 (six) hours if needed for muscle spasms for up to 10 days. 30 tablet 0 No current facility-administered medications for this visit. Past Medical History: Diagnosis Date Anxiety disorder, unspecified 05/09/2023 Benign paroxysmal positional vertigo 11/16/2024 Bronchitis 11/16/2024 Diabetes mellitus (CMS/HCC) GERD (gastroesophageal reflux disease) 11/16/2024 HLD (hyperlipidemia) Hyperlipidemia 08/15/2022 Hypertension Major depression 11/16/2024 Somatization disorder 08/15/2022 Type 2 diabetes mellitus (CMS/HCC) 08/15/2022 Past Surgical History: Procedure Laterality Date GALLBLADDER SURGERY SHOULDER SURGERY Family History Problem Relation Name Age of Onset Diabetes Father Other (bladder cancer) Mother's Sister Diabetes Father's Sister Tobacco Use: High Risk (12/22/2024) Tobacco Smoking Tobacco Use: Every Day Smokeless Tobacco Use: Current Passive Exposure: Current Allergies Allergen Reactions Ulysses Other Other reaction(s): bad reaction Other Reaction(s): tremor and falls Penicillins Shortness of breath and Anaphylaxis Other reaction(s): can't breathe, Difficulty breathing, Vomiting Allevyn Adhesive [Wound Dressings] Other reaction(s): adhesive on patches-skin irritations Carbamazepine Other Reaction(s): MIGRAINES Cariprazine Other Reaction(s): LEG CRAMPS Clindamycin Other Reports when taking feels like throat enriquez Dicyclomine Hallucinations Cynara Scolymus (Artichoke) Rash artichoke Fentanyl Rash Lamotrigine Rash Wound Dressing Adhesive Rash ROS Positive for: Endocrine, Eyes Negative for: Constitutional, Gastrointestinal, Neurological, Skin, Genitourinary, Musculoskeletal,HENT, Cardiovascular, Respiratory, Psychiatric, Allergic/Imm, Heme/Lymph Last edited by Wendy Tobar, OD on 12/22/2024 9:16 AM. Base Eye Exam Visual Acuity (Snellen - Linear) Right Left Both Dist cc 20/20 20/20 Near sc 20/20 Tonometry (iCare , 9:42 AM) Right Left Pressure 17 17 Pupils Pupils APD Right PERRL None Left PERRL None Visual Rosado (Counting fingers) Left Right Full Full Extraocular Movement Right Left Full Full Neuro/Psych Oriented x3: Yes Mood/Affect: Normal Dilation Both eyes: 1.0% tropicamide @ 9:42 AM Slit Lamp and Fundus Exam External Exam Right Left External Normal Normal Slit Lamp Exam Right Left Lids/Lashes Clean and clear Clean and clear Conjunctiva/Sclera White and quiet White and quiet Cornea Clear Clear Anterior Chamber Deep and quiet, angles open Deep and quiet, angles open Iris Round and reactive, (-) NVI Round and reactive, (-) NVI Lens Clear Clear Fundus Exam Right Left Vitreous Clear Clear Disc [place] and healthy, (-) NVD [place] and healthy, (-) NVD C/D Ratio Vertical 0.60 0.55 C/D Ratio Horizontal 0.55 0.55 Macula Flat with even pigmentation, (-) CME Flat with even pigmentation, (-) CME Vessels Normal course and caliber, (-) NVE Normal course and caliber, (-) NVE Periphery No holes/tears/detachments 360 No holes/tears/detachments 360 Refraction Wearing Rx Sphere Cylinder [place] Right -3.00 -1.50 057 Left -2.50 -1.75 110 Type: Manifest Refraction (Subjective) Sphere Cylinder [place] Dist VA Add Right -3.00 -1.50 060 20/20 +1.75 Left -2.50 -1.75 110 20/20 +1.75 Near VA Both: 20/20 Final Rx Sphere Cylinder [place] Add Right -3.00 -1.50 060 +1.75 Left -2.50 -1.75 110 +1.75 Expiration Date: 12/22/2025 Assessment and Plan Diagnoses and all orders for this visit: Type 2 diabetes mellitus without ophthalmic manifestations ([facility]/HCC) - No diabetic retinopathy or diabetic macular edema both eyes (OU) - Discussed importance of tight blood glucose control, medication compliance and regular follow up with PCP. Today's exam notes will be made available for PCP to review. Open angle with borderline findings, low risk, bilateral - Patient reports that she has been followed for a long time for large optic nerves. She has done visual field testing as well that has always been normal - Glaucoma risk profile - POAG suspect due to: large C/D OU - Fhx glaucoma: none - IOP today (icare): (baseline) - RNFL OCT today (12/22/24): OD:borderline thin inferior temporal, OS: borderline thin superior temporal. Baseline testing both eyes (OU). - GCL OCT today (12/22/24): Robust GCL 360 both eyes (OU). Baseline. - Very low risk suspect both eyes (OU). Monitor annually with OCT Myopia, bilateral - Dispensed updated spec Rx. Advised patient that can continue to take off specs for reading if sheprefers. RTC in 1 year for comprehensive eye exam or soon as needed Wendy Tobar, OD 12/22/2024, 12:16 PM documented in this encounter Plan of Treatment Upcoming Encounters Date Type Department Care Team (Late st Contact Info) Description 03/24/2025 10:30 AM EDT Office Visit [facility] MED [facility] P[facility]S [address] [place] [address] Ann-Marie Camacho MD [address] [place] [address] documented as of this encounter Procedures Procedure Name Priority Date/Time Associated Diagnosis Comments OCT, OPTIC NERVE - OU - BOTH EYES Routine 12/22/2024 12:15 PM EDT Open angle with borderline findings, low risk, bilateral documented in this encounter Results * OCT, Optic Nerve - OU - Both Eyes (12/22/2024 12:15 PM EDT) Wendy Barroso, OD - 12/22/2024 12:15 PM EDT OCT OPTIC NERVE INTERPRETATION Reliability: OD: SS 44, good quality scan OS: SS 38 (borderline), good quality scan Measurements RNFL: Avg RNFL thickness OD: ??97 microns OS: ??97 microns Test findings RNFL: RNFL OD: Borderline thin at 10:00. Baseline. RNFL OS: Borderline thin from 4:00-5:00. Baseline. Test findings GCL: GCL OD: Robust ganglion cell layer (GCL) 360. Baseline. GCL OS: Robust ganglion cell layer (GCL) 360. Baseline. Impression and Plan: Very low risk suspect both eyes (OU). Continue to monitor annually with OCTs Wendy Tobar OD OPHTH TOMOGRAPHY Final Result documented in this encounter Visit Diagnoses Diagnosis Type 2 diabetes mellitus without ophthalmic manifestations (CMS/HCC)- Primary Open angle with borderline findings, low risk, bilateral Myopia, bilateral documented in this encounter Additional Health Concerns Assessment Noted Time PHQ-9 Depression Total Score: 0 11/27/19 25 11:30 AM EDT documented as of this encounter Care Teams Foam Caster Relationship Specialty Start Date End Date Ann-Marie Camacho MD [address] [place] [id number] PCP - General Internal Medicine 02/23/21 documented as of this encounter
--- OUTSIDE RECORDS SUMMARY | 2024-12-22 12:50 | XMS_ITS | Encounter Summary ---
Author Organization [facility] Address [address] [place] [address] Care Team Providers Care Senior Energy Market Coordinator Name Role Phone Don Hudson MD Primary Care Provider Unavail able Encounter Details Date Type Department Care Team (Late st Contact Info) Description 06/24/2024 11:46 AM EDT Hospital Encounter TH HISTORIC ENCOUNTERS [facility]AST[facility] CONVERSION ONLY Harsh Proctor MD [address] [address] Social History Tobacco Use Types Packs/Day Years [...] EDT Narrative 06/24/2024 2:[address] [facility] Diagnostic Imaging Department [address] [place] [id number] Patient: ??FELICIA SEARS ?/Age/Sex: 1975 - 49 - F Unit#: ??[id number] ? Location/Status: ??SPDIGEN/REG CLI ? Mnemonic/Ordering Site: [...] by: ??ANIRUDH ADKINS MD Dic Date/Time: ??06/24/24 1441 Sign date/Time: ??06/24/24 1442 Procedure Note Anirudh Adkins MD - 06/27/2024 [facility] Diagnostic Imaging Department [address] [place] [address] Patient: FELICIA SEARS /Age/Sex: 1975 - 49 - F Unit#: [id number] Location/Status: SPDIGEN/REG CLI Mnemonic/Ordering Site: ABDOFLEREC/SPDI Ordering [...] 025 4:50 PM EDT COVID-19 Rule-Out 11/16/2024 11/16/202411/1611/16/2024 4:50 PM EDT documented as of this encounter Care Teams Senior Energy Market Coordinator Relationship Specialty Start Date End Date Don Hudson MD PCP - General 03/30/02 11/15/24 documented as of this encounter
--- OUTSIDE RECORDS SUMMARY | 2024-12-22 12:50 | XMS_ITS | Clinical Summary ---
Author Organization [facility] [place] [address] Phone Care Team Providers Care Manager Media Name Role Phone Ann-Marie Camacho MD Primary Care Provider [phone] Allergies Active Allergy Reactions Criticality Noted Date Comments Penicillins 11/16/2024 Medications pantoprazole (PROTONIX) 40 mg EC tabletIndicatio ns:GERD (gastroesophage al reflux disease) TAKE 1 TABLET BY MOUTH TWICE DAILY 180 tablet 3 08/24/2024 Active saccharomyces boulardii (FLORASTOR) 250 mg capsule Take 1 capsule (250 mg total) by mouth 2 (two) times a day for 7 days. 14 capsule 11/16/2024 11/24/19 25 Encounters Date Type Department Care Team Description 11/16/2024 10:50 PM EDT - 11/17/2024 12:02 AM EDT Emergency [facility] Emergency [address] [place] [address] Antibiotic-associated diarrhea (Primary Dx) Discharge Disposition: Home or Self Care from Last 3 Months Social History Tobacco Use Types Packs/Day Years Used Date Smoking Tobacco: Never Assessed Comments Unknown Sex and Gender Information Value Date Recorded Sex Assigned at Female 06/24/2024 11:24 AM EDT Legal Sex Female 1:08 PM EST Gender Identity Female 06/24/2024 11:24 AM EDT Sexual Orientation Straight 06/24/2024 11 :24 AM EDT Obstetrics History Last Filed Vital Signs Vital Sign Reading Time Taken Comments Blood Pressure 141/98 11/16/2024 8:11 PM EDT Pulse 90 11/16/2024 8:11 PM EDT Temperature 37.1 ??C (98.8 ??F) 11/16/2024 8:11 PM ED T Respiratory Rate 18 11/16/2024 8:11 PM EDT Oxygen Saturation 98% 11/16/2024 8:11 PM EDT Inhaled Oxygen Concentration - - Weight 135 kg (298 lb) 11/16/2024 3:33 PM EDT Height 170.2 cm (5' 7 ) 11/16/2024 3:33 PM EDT Body Mass Index 46.67 11/16/2024 3:33 PM EDT Plan of Treatment Health Maintenance Due Date Last Done Comments Breast Cancer Screening 1975 Diabetes: Annual Foot Exam 1985 Hepatitis B Vaccines (1 of 3 - 19+ 3-dose series) 1994 Colorectal Cancer Screening: Colonoscopy 07/24/2022 HIV Screening 07/24/2022 Medicare Annual Wellness Visit 07/24/2022 Social Influencers of Health Screening 07/24/2022 Depression Screening 09/03/2023 09/03/2022 COVID-19 Vaccine ( - 2023-2 5 season) 2024 01/12/2021, 12/14/2020 Diabetes: Annual Urine Albumin-Creatinine Ratio (uACR) 11/17/2024 Diabetes: Blood Sugar Contro l Test (HGBA1C) 02/28/2025 08/31/2024 Diabetes: Annual Retina Eye Exam 10/27/2025 10/27/2024 Diabetes: Annual GFR (Glomerular Filtration Rate) 11/16/2025 11/16/2024, 09/16/2024, 08/30/2024 Hypertension/CHF/CAD Annual BMP Blood Test 11/16/2025 11/16/2024, 09/16/2024, 08/30/2024 Cervical Cancer Screening: P ap Smear 07/14/2027 07/14/2024 Cholesterol Screening (Lipid Panel) 07/13/2029 07/13/2024 DTaP,Tdap,and Td Vaccines (2 - Td or Tdap) 05/10/2030 05/10/2020 Influenza Vaccine Completed 06/26/2024 Pneumococcal Vaccine: Pediatrics (0 to 5 Years) and At-Risk Patients (6 to 64 Years) Aged Out 06/26/2024 No longer eligible b ased on patient's age to complete this topic Hepatitis C Screening Completed 07/13/2024 HIB Vaccines [...] age to complete this topic Meningococcal B Vaccine Aged Out No l onger eligible based on patient's age to complete this topic RSV Immunization Patients Under 20 months Aged Out No longer eligible b ased on patient's age to complete this topic Varicella Vaccines Aged Out No longer eligible based on patient's age to complete this topic Procedures Procedure Name Priority Date/Time Associated Diagnosis Comments CBC WITH AUTO DIFFERENTIAL STAT 11/16/2024 4:25 PM EDT MAGNESIUM STAT 11/16/2024 4:25 PM EDT BASIC METABOLIC PANEL STAT 11/16/2024 4:25 PM EDT CBC AND DIFFERENTIAL STAT 11/16/2024 4:25 PM EDT [id number], RSV, FLU A AND B QUALITATIVE RT-PCR, INTERNAL LAB STAT 11/16/2024 3:36 PM EDT from Last 3 Months Results * (ABNORMAL) CBC auto differential (11/16/2024 4:25 PM EDT) WBC 9.6 4.8 - 10.8 K/[facility] LAB HEMETOLOGY METHOD 11/16/2024 5:05 PM EDT [facility] RBC 4.50 3.80 - 4.80 M/[facility] LAB HEMETOLOGY METHOD 11/16/2024 5:05 PM EDT [facility] Hemoglobin 13.6 11.5 - 16.0 g/dL LAB HEMETOLOGY METHOD 11/16/2024 5:05 PM [facility] Hematocrit 41.7 35.0 - 47.0 % LAB HEMETOLOGY METHOD 11/16/2024 5:05 PM [facility] MCV 91.9 79.0 - 98.0 FL LAB HEMETOLOGY METHOD 11/16/2024 5:05 PM [facility] MCH 30.0 27.0 - 32.0 pcg LAB HEMETOLOGY METHOD 11/16/2024 5:05 PM [facility] MCHC 32.6 32.0 - 37.0 g/dL LAB HEMETOLOGY METHOD 11/16/2024 5:05 PM [facility] RDW 12.6 11.0 - 15.0 % LAB HEMETOLOGY METHOD 11/16/2024 5:05 PM [facility] Platelets 229 130 - 400 K/mcL LAB HEMETOLOGY METHOD 11/16/2024 5:05 PM [facility] MPV 10.2 7.0 - 11.0 FL LAB HEMETOLOGY METHOD 11/16/2024 5:05 PM [facility] NRBC 0.0 <1.0 % LAB HEMETOLOGY METHOD 11/16/2024 5:05 PM [facility] NRBC Absolute 0.00 <0.10 K/mcL LAB HEMETOLOGY METHOD 11/16/2024 5:05 PM [facility] Neutrophils Relative 58.1 % LAB HEMETOLOGY METHOD 11/16/2024 5:05 PM [facility] Lymphocytes Relative 36.6 % LAB HEMETOLOGY METHOD 11/16/2024 5:05 PM [facility] Monocytes Relative 4.7 % LAB HEMETOLOGY METHOD 11/16/2024 5:05 PM EDT [facility] Eosinophils Relative 0.0 % LAB HEMETOLOGY METHOD 11/16/2024 5:05 PM EDT [facility] Basophils Relative 0.2 % LAB [facility] Immature Granulocytes Relative 0.4 % LAB HEMETOLOGY METHOD 11/16/2024 5:05 PM EDT [facility] Neutrophils Absolute 5.54 1.50 - 7.00 K/mcL LAB HEMETOLOGY METHOD 11/16/2024 5:05 PM EDT [facility] Lymphocytes Absolute 3.50 1.00 - 5.00 K/mcL LAB HEMETOLOGY METHOD [facility] Monocytes Absolute 0.45 0.20 - 1.00 K/mcL LAB HEMETOLOGY METHOD 11/16/2024 5:05 PM EDT [facility] Eosinophils Absolute 0.00 0.00 - 0.50 K/mcL LAB HEMETOLOGY METHOD 11/16[facility]2024 [facility] Basophils Absolute 0.02 0.00 - 0.20 K/mcL LAB HEMETOLOGY METHOD 11/16/2024 5:05 PM [facility] Immature Granulocytes Absolute 0.04(H) 0.00 - 0.03 K/mcL LAB HEMETOLOGY METHOD 11/16/2024 5:05 PM EDT [facility] Blood Venous blood specimen / Unknown Venipuncture / Unknown 11/16/2024 4:25 PM EDT 11/16/2024 4:55 PM EDT us Oliverio Dianne Bejarano MD LAB BLOOD ORDERABLES Final Resu lt [facility] [address] [place] [address], * Magnesium (11/16/2024 4:25 PM EDT) Pathologist [facility] Magnesium 2.0 1.9 - 2.6 mg/dL LAB CHEMISTRY METHOD 11/16/2024 5:18 PM EDT [facility] Blood Venous blood specimen / Unknown Venipuncture / Unknown 11/16/2024 4:25 PM EDT 11/16/2024 4:55 PM EDT Oliverio B D[facility] LAB BLOOD ORDERABLES Final Resu lt [facility] [address] [place] [address], [place] [phone] * (ABNORMAL) Basic metabolic panel (11/16/2024 4:25 PM EDT) [facility] Sodium 138 133 - 145 mmol/L LAB CHEMISTRY METHOD 11/16/2024 5:18 PM [facility] Potassium 4.3 3.5 - 5.5 mmol/L LAB CHEMISTRY METHOD 11/16/2024 5:18 PM [facility] Chloride 105 96 - 110 mmol/L LAB CHEMISTRY METHOD 11/16/2024 5:18 PM [facility] CO2 29 21 - 32 mmol/L LAB CHEMISTRY METHOD 11/16/2024 5:18 PM [facility] Anion Gap 4 3 - 11 LAB CHEMISTRY METHOD 11/16/2024 5:18 PM [facility] Glucose 108(H) 70 - 100 mg/dL LAB CHEMISTRY METHOD 11/16/2024 5:18 PM [facility] BUN 12 5 - 25 mg/dL LAB CHEMISTRY METHOD 11/16/2024 5:18 PM [facility] Creatinine 0.76 0.50 - 1.10 mg/dL LAB CHEMISTRY METHOD 11/16/2024 5:18 PM [facility] eGFR 96 >=60 mL/min/1. 73m2 LAB CHEMISTRY METHOD 11/16/2024 5:18 PM EDT [facility] Comment:Calculation based on the??Chronic Kidney Disease Epidemiology Collaboration (CKD-EPI) equation refit??without adjustment for race. BUN/Creatinine Ratio 15.8 LAB CHEMISTRY METHOD 11/16/2024 5:18 PM EDT [facility] Calcium 9.5 8.5 - 10.5 mg/dL LAB CHEMISTRY METHOD 11/16/2024 5:18 PM EDT [facility] Blood Venous blood specimen / Unknown Venipuncture / Unknown 11/16/2024 4:25 PM EDT 11/16/2024 4:[address]T [facility] B [facility] LAB BLOOD ORDERABLES Final Resu lt [facility] [address] [place] [address], * [id number], RSV, Influenza A and B qualitative RT-PCR (11/16/2024 3:36 PM EDT) Influenza A PCR Not Detected Not Detected LAB MICROBIOLOGY METHOD 11/16/2024 4:50 PM EDT [facility] Influenza B PCR Not Detected Not Detected LAB MICROBIOLOGY METHOD 11/16/2024 4:50 PM EDT [facility] RSV PCR Not Detected Not Detected LAB MICROBIOLOGY METHOD 11/16/2024 4:50 PM EDT [facility] SARS COV-2 Not Detected Not Detected LAB MICROBIOLOGY METHOD 11/16/2024 4:50 PM EDT [facility] Swab Structure of left anterior naris / Unknown Non-blood Collection / Unknown 11/16/2024 3:36 PM EDT 11/16/2024 4:04 PM EDT Narrative [facility] - 11/16/2024 4:50 PM EDT Disclaimer: ??Testing was performed using the [employer] GeneXpert Xpress SARS-CoV-2 _Flu_RSV PLUS PCR assay. ??The manner in which this information is used to guide patient care is the responsibility of the healthcare provider. ??Results should be correlated with the clinical history, epidemiological data, and other data available to the clinician evaluating the patient. ??Negative results do not preclude infection. ??This test has been authorized by the FDA under an Emergency Use Authorization (EUA). ??This test is only authorized for the duration of time the declaration that circumstances exist justifying the authorization of the emergency use of in vitro diagnostic tests for detection of SARS-CoV-2 virus and/or diagnosis of COVID-19 infection under section 564 (b) (1) of the Act, 21 U.S.C 360bbb-3 (b) (1), unless the authorization is terminated or revoked sooner. ?? Reference Range: Not Detected Fact sheet for Healthcare providers can be found at https://www.fda.gov/media/986402/download. ?? Fact sheet for Healthcare patients can be found at https://www.fda.gov/media/789517/download. Oliverio Bejarano MD LAB MICROBIOLOGY - GENERAL DEBO BYNUM Final Result [facility] [address] [place] [address], from Last 3 Months Insurance [employer] MEDICARE [facility] Care Teams Manager Media Relationship Specialty Start Date End Date Ann-Marie Camacho MD [address] [place] [phone] PCP - General Internal Medicine 11/16/24
--- OUTSIDE RECORDS SUMMARY | 2024-12-22 12:50 | XMS_ITS | Encounter Summary ---
Author Organization [employer] Address [address] [place] [address] Care Team Providers Care Die Mechanic Name Role Phone Ann-Marie Camacho MD Primary Care Provider [phone] Reason for Visit * Reason Onset Date Comments Results 01/15/2024 FYI 01/15/2024 Encounter Details Date Type Department Care Team ([facility] st Contact Info) Description 01/15/2024 Telephone [facility] MEDICINE [address] [place] [address] Ann-Marie Camacho MD [address] [place] [address] Results; I Social History Tobacco Use Types [...] Description 03/24/2025 10:30 AM EDT Office Visit [facility] MED & PEDS [address] [place] [address] Ann-Marie Camacho MD [address] [place] [address] documented as of this encounter Visit Diagnoses Not on filedocumented in this encounter Additional Health Concerns Assessment Noted Time PHQ-9 Depression Total Score: 6 09/03/19 23 1:13 PM EST documented as of this encounter Care Teams Die Mechanic Relationship Specialty Start Date End Date Ann-Marie Camacho MD [address] [place] [address] PCP - General Internal Medicine 02/23/21 documented as of this encounter
--- OUTSIDE RECORDS SUMMARY | 2024-12-22 12:50 | XMS_ITS | Encounter Summary ---
Author Organization [employer] Address [address] [facility] 7t [place] [address] Care Team Providers Care Voice Engineer Name Role Phone Ann-Marie Camacho MD Primary Care Provider [phone] Encounter Details Date Type Department Care Team (Late st Contact Info) Description 06/25/2024 Orders Only [facility] [address] [place] [address] ProviderRoseanna MD Social History Tobacco Use Types [...] Description 03/24/2025 10:30 AM EDT Office Visit [facility] MED & PEDS [address] [place] [address] Ann-Marie Camacho MD [address] [place] [address] documented as of this encounter Procedures Procedure [...] documented as of this encounter Care Teams Voice Engineer Relationship Specialty Start Date End Date Ann-Marie Camacho MD [address] [place] [address] PCP - General Internal Medicine 02/23/21 documented as of this encounter
--- OUTSIDE RECORDS SUMMARY | 2024-12-22 12:50 | XMS_ITS | Encounter Summary ---
Author Organization [employer] Address [address] [place] [address] 7t [place] [address] Care Team Providers Care Corporate Legal Secretary Name Role Phone Ann-Marie Camacho MD Primary Care Provider [phone] Encounter Details Date Type Department Care Team (Late Contact Info) Description 12/05/2022 Abstract [facility] MED & PEDS [address] [place] [address] Ann-Marie Camacho MD [address] [place] [address] Social History Tobacco Use Types Packs/Day Years [...] Description 03/24/2025 10:30 AM EDT Office Visit [facility] MED & PEDS [address] [place] [address] Ann-Marie Camacho MD [address] [place] [address] documented as of this encounter Procedures Procedure [...] documented as of this encounter Care Teams Corporate Legal Secretary Relationship Specialty Start Date End Date Ann-Marie Camacho MD [address] [place] [address] PCP - General Internal Medicine 02/23/21 documented as of this encounter
--- OUTSIDE RECORDS SUMMARY | 2024-12-22 12:50 | XMS_ITS | Encounter Summary ---
Author Organization [employer] Address [address] [place] [address] 7t [place] [address] Care Team Providers Care Hide And Skin Classer Name Role Phone Ann-Marie Camacho MD Primary Care Provider [phone] Reason for Visit * Reason Comments Med Refill Encounter Details Date Type Department Care Team (Late Contact Info) Description 12/17/2022 Refill [facility] MED & PEDS [address] [place], [place] [phone] Ann-Marie Camacho MD [address] [place] [address] Social History Tobacco Use Types Packs/Day Years [...] Department Care Team (Late Contact Info) Description 03/24/2025 10:30 AM EDT Office Visit [facility] MED & PEDS [address] [place] [address] Ann-Marie Camacho MD [address] [place] [address] documented as of this encounter Visit Diagnoses Not on filedocumented in this encounter Additional Health Concerns Assessment Noted Time PHQ-9 Depression Total Score: 6 09/03/19 23 1:13 PM EST documented as of this encounter Care Teams Hide And Skin Classer Relationship Specialty Start Date End Date Ann-Marie Camacho MD [address] [place] [address] PCP - General Internal Medicine 02/23/21 documented as of this encounter
--- OUTSIDE RECORDS SUMMARY | 2024-12-22 12:50 | XMS_ITS | Encounter Summary ---
Author Organization [employer] Address [address] [facility] 7t [place] [address] Care Team Providers Care Rn Intern Name Role Phone Ann-Marie Camacho MD Primary Care Provider [phone] Reason for Visit * Reason Comments Hypertension Diabetes Encounter Details Date Type Department Care Team ([facility] st Contact Info) Description 12/22/2024 10:15 AM EDT Office Visit [facility] MED & PEDS [address] [place], [place] [phone] Ann-Marie Camacho MD [address] [place] [address] Benign essential hypertension (Primary Dx); Primary hypertension; Pure hypercholesterolemia; Type 2 diabetes mellitus without complication, without long-term current use of insulin (CMS/HCC); Muscle ache Social History Tobacco Use Types Packs/Day Years [...] AM EDT documented as of this encounter Last Filed Vital Signs Vital Sign Reading Time Taken Comments Blood Pressure 136/84 12/22/2024 10:26 AM EDT Pulse 78 12/22/2024 10:26 AM EDT Temperature 36.6 ??C (97.8 ??F) 12/22/2024 10:26 AM E DT Respiratory Rate 20 12/22/2024 10:26 AM EDT Oxygen Saturation 97% 12/22/2024 10:26 AM EDT Inhaled Oxygen Concentration - - Weight 134 kg (296 lb) 12/22/2024 10:26 AM EDT Height 170.2 cm (5' 7 ) 12/22/2024 10:26 AM EDT Body Mass Index 46.36 12/22/2024 10:26 AM EDT documented in this encounter Plan of Treatment Upcoming Encounters Date Type Department Care Team (Late st Contact Info) Description 03/24/2025 10:30 AM EDT Office Visit [facility] MED & PEDS [address] [place] [address] Ann-Marie Camacho MD [address] [place] [address] Scheduled Orders Name Type Priority Associated Diagnoses Orde r Schedule POCT Glucose Point of Care Testing Routine Type 2 diabetes mellitus without complication, without long-term current use of insulin ([facility]) Ordered: 12/22/2024 Lipid Panel, Standard Lab Routine Pure hypercholesterolemia Expected: 12/22/2024 (Approximate), Expires: 12/22/2025 documented as of this encounter Visit Diagnoses Diagnosis Benign essential hypertension- Primary Essential hypertension, benign Primary hypertension Unspecified essential hypertension Pure hypercholesterolemia Type 2 diabetes mellitus without complication, without long-term current use of insulin ([facility]) Muscle ache Unspecified myalgia and myositis documented in this encounter Additional Health Concerns Assessment Noted Time PHQ-9 Depression Total Score: 0 11/27/19 25 11:30 AM EDT documented as of this encounter Care Teams Rn Intern Relationship Specialty Start Date End Date Ann-Marie Camacho MD [address] [place] [phone] PCP - General Internal Medicine 02/23/21 documented as of this encounter
--- OUTSIDE RECORDS SUMMARY | 2024-12-22 12:50 | XMS_ITS | Encounter Summary ---
Author Organization [employer] Address [address] [place] [address] Care Team Providers Care Occ Med Physician Name Role Phone Ann-Marie Camacho MD Primary Care Provider [phone] Encounter Details Date Type Department Care Team ([facility] st Contact Info) Description 12/22/2024 Orders Only [facility] MED & PEDS [address] [place] [address] Laura Wan Social History Tobacco Use Types Packs/Day Years [...] the past 12 months, has t he [employer], gas, oil or water [employer] threatened to shut off services in your [...] Upcoming Encounters Date Type Department Care Team ([facility] st Contact Info) Description 03/24/2025 10:30 AM EDT Office Visit [facility] MED & PEDS [address] [place] [address] Ann-Marie Camacho MD [address] [place] [address] documented as of this encounter Procedures Procedure Name Priority Date/Time Associated Diagnosis Comments HPV MRNA E6/E7 REFLEX TO HPV 16, 18/45 Routine 07/14/2024 12:00 AM EST documented in this encounter Results * HPV mRNA E6/E7 w/Reflex to HPV Genotypes 16, 18/45 (07/14/2024 12:00 AM EST) us Historical Provider LAB CYTOLOGY ORDERABLES F inal Result [facility] [address] [place] [address] [phone] documented in this encounter Visit Diagnoses Not on filedocumented in this encounter Additional Health Concerns Assessment Noted Time PHQ-9 Depression Total Score: 0 11/27/19 25 11:30 AM EDT documented as of this encounter Care Teams Occ Med Physician Relationship Specialty Start Date End Date Ann-Marie Camacho MD [address] [place] [address] PCP - General Internal Medicine 02/23/21 documented as of this encounter
--- OUTSIDE RECORDS SUMMARY | 2024-12-22 12:50 | XMS_ITS | Clinical Summary ---
Author Organization [employer] Address [address] [place] [address] 7[address] [place] [address] Care Team Providers Care Rehabilitation Therapist Name Role Phone Ann-Marie Camacho MD Primary Care Provider [phone] Allergies Active Allergy Reactions Criticality Noted Date Comments Wound Dressings 08/15/2022 Other reaction(s): adhesive on patches-skin irritations Carbamazepine 01/02/2022 Other Reaction(s): MIGRAINES Cariprazine 01/02/2022 Other Reaction(s): LEG CRAMPS Clindamycin Other 11/19/2024 Reports when taking feels like throat enriquez Cynara Scolymus (Artichoke) Rash Low 08/15/2022 artichoke Dicyclomine Hallucinations 09/16/2024 Fentanyl Rash Low 03/20/2023 Lamotrigine Rash Low 01/02/2022 [place] Other High 01/02/2022 Other reaction(s): bad reaction [...] MOUTH EVERY 6 HOURS NEEDED FOR HEADACHE Active clonazePAM (KlonoPIN) 1 MG tablet TAKE 1 TABLET BY MOUTH TWICE DAILY NEEDED. MAY USE 1 ADDITIONAL FOR ANXIETY. 30 DAY SUPPLY Active glucose 4 g chewable tablet Active Linzess 290 MCG capsule Take 290 mcg by mouth in the morning. Active Myrbetriq 50 MG 24 hr tablet Take 50 mg by mouth in the morning. Active ondansetron (Zofran) 4 MG tablet Take 1 tablet by mouth every 8 (eight) hours. Active pantoprazole (ProtoNix) 40 MG EC tablet Active tiZANidine (Zanaflex) 4 MG tabletIndications :Acute pain of right shoulder Take 1 tablet (4 mg) by mouth every 6 (six) hours if needed for muscle spasms for up to 10 days. 30 tablet Active baclofen (Lioresal) 10 MG tabletIndications :Muscle spasm Take 1 tablet (10 mg) by mouth 3 times daily for 10 days. 30 tablet Active lisinopril 40 MG tablet TAKE 1 TABLET BY MOUTH EVERY DAY 30 tablet 11 Active albuterol 108 (90 Base) MCG/ACT inhalerIndication s:Bronchitis Inhale 2 puffs every 6 (six) hours if needed for wheezing. 18 g Active cetirizine (ZyrTEC) 10 MG tablet Take 1 tablet (10 mg) by mouth Once per day. 30 tablet 5 Active nicotine (Nicoderm CQ) 21 MG/24HR patch Place 1 patch on the skin 1 (one) time each day at the same time. 30 patch 3 Active Beclomethasone Diprop HFA (Qvar) 80 MCG/ACT inhaler Inhale 1 Inhalation. in the morning and at bedtime. Rinse mouth with water after use to reduce aftertaste and incidence of candidiasis. Do not swallow. 10.6 g 1 Active fluconazole (Diflucan) 150 MG tabletIndications :PV (pityriasis versicolor) 2 tabs once a week x 2 weeks. 4 tablet Active metoprolol succinate XL (Toprol XL) 100 MG 24 hr tabletIndications :Hypertension, unspecified type Take 1 tablet (100 mg) by mouth Once per day. Do not crush or chew. 30 tablet 11 024 2024 Active metFORMIN (Glucophage) 1000 MG tabletIndications :Type 2 diabetes mellitus without complication, without long-term current use of insulin ([facility]) TAKE 1 TABLET(1000 MG) BY MOUTH EVERY 12 HOURS 180 tablet 1 025 Active acetaminophen (Tylenol) 500 MG tablet Take 1 tablet (500 mg) by mouth every 6 (six) hours if needed for mild pain for up to 20 doses. 20 tablet 025 Active azithromycin (Zithromax) 250 MG tablet Take (2) tabs 1st day; take (1) tab next 4 days. 6 tablet 025 Active cloZAPine (Clozaril) 200 MG tablet 025 Active chlorhexidine (Peridex) 0.12 % solution Swish 15 mL morning and night for 1 minute. Spit, do not swallow. Do not eat or drink for 30 minutes following use. 473 mL 025 Active acetaminophen (Tylenol) 500 MG tablet Take 1 tablet (500 mg) by mouth every 6 (six) hours if needed for moderate pain or mild pain for up to 15 doses. 15 tablet 025 Active Blood Glucose Monitoring Suppl (FreeStyle [place] Lite) w/Device kitIndications:Ty pe 2 diabetes mellitus without complication, without long-term current use of insulin ([facility]) Use to test blood sugar 1 times daily 1 kit 025 Active Alcohol Swabs 70 % padsIndications:T ype 2 diabetes mellitus without complication, without long-term current use of insulin ([facility]) Use to test blood sugar 1 times daily 100 each 11 025 Active FREESTYLE LITE test stripIndications: Type 2 diabetes mellitus without complication, without long-term current use of insulin ([facility]) Use to test blood sugar 1 times daily 100 each 12 025 2025 Active Lancets miscIndications:T ype 2 diabetes mellitus without complication, without long-term current use of insulin ([facility]) Use to test blood sugar 1 times daily 100 each 025 Active Blood Glucose Monitoring Suppl (FreeStyle [place] Lite) w/Device kitIndications:Ty pe 2 diabetes mellitus without complication, without long-term current use of insulin ([facility]) Use to test blood sugar 1 times daily 1 kit 04/03/2 025 Active empagliflozin (Jardiance) 10 MGIndications:Typ e 2 diabetes mellitus without complication, without long-term current use of insulin ([facility]) Take 1 tablet (10 mg) by mouth Once per day. 30 tablet 11 2025 Active glucose blood test stripIndications: Type 2 diabetes mellitus without complication, without long-term current use of insulin ([facility]) To use once a day 100 each 12 2025 Active Lancet Devices (Autolet) lancing deviceIndications :Type 2 diabetes mellitus without complication, without long-term current use of insulin ([facility]) 1 each by Other route Once per day. 1 each 2025 Active Blood Glucose Monitoring Suppl (MarketGid Verio) w/Device kitIndications:Ty pe 2 diabetes mellitus without complication, without long-term current use of insulin ([facility]) 1 Units Once per day. 1 kit Active lisinopril 40 MG tablet TAKE 1 TABLET BY MOUTH EVERY DAY 30 tablet Active ondansetron (Zofran) 4 MG tabletIndications :Generalized abdominal pain Take 1 tablet (4 mg) by mouth every 8 (eight) hours if needed for nausea or vomiting for up to 7 days. 20 tablet 2024 Active Diclofenac Sodium 1 % gelIndications:Mu scle ache To apply to the affected area 3 times a day 100 g Active SITagliptin (Januvia) 100 MG tablet Take 100 mg by mouth. 2024 Discontinued(T herapy completed) Januvia 50 MG tablet TAKE 1 TABLET BY MOUTH EVERY DAY 30 tablet 2024 Discontinued lisinopril 40 MG tablet TAKE 1 TABLET BY MOUTH EVERY DAY 30 tablet 2024 Discontinued rosuvastatin (Crestor) 40 MG tabletIndications :Hyperlipidemia, unspecified hyperlipidemia type Take 1 tablet (40 mg) by mouth Once per day. 90 tablet 1 2024 Discontinued(S jesse effects) ketorolac (Toradol) 10 MG tablet Take 1 tablet by mouth every 6 (six) hours if needed for pain. 025 2024 Discontinued(S jesse effects) clindamycin (Cleocin) 300 MG capsule Take 1 capsule (300 mg) by mouth 4 times daily for 7 days. 28 capsule 025 2024 FREESTYLE LITE test stripIndications: Type 2 diabetes mellitus without complication, without long-term current use of insulin ([facility]) Use to test blood sugar 1 times daily 100 each 12 025 2024 Discontinued(R eorder (will not trigger notification to Pharmacy)) Lancets miscIndications:T ype 2 diabetes mellitus without complication, without long-term current use of insulin ([facility]) Use to test blood sugar 1 times daily 100 each 025 2024 Discontinued(R eorder (will not trigger notification to Pharmacy)) Alcohol Swabs 70 % padsIndications:T ype 2 diabetes mellitus without complication, without long-term current use of insulin ([facility]) Use to test blood sugar 1 times daily 100 each 11 025 2024 Discontinued(R eorder (will not trigger notification to Pharmacy)) Active Problems Problem Noted Date Diagnosed Date Abdominal pain 11/16/2024 Abnormal stress ECG with treadmill 11/16/2024 Benign paroxysmal positional vertigo 11/16/2024 Bronchitis 11/16/2024 Dyspnea on exertion 11/16/2024 Environmental allergies 11/16/2024 Nausea vomiting and diarrhea 11/16/2024 Palpitation 11/16/2024 Chest discomfort 11/16/2024 Paresthesia 11/16/2024 Thrombosed external hemorrhoid 11/16/2024 Mid back pain on left side 11/16/2024 COVID-19 11/16/2024 GERD (gastroesophageal reflux disease) Near syncope 11/16/2024 Major depression 11/16/2024 Migraine 11/16/2024 Diabetes due to underlying condition w oth circu latory comp 11/16/2024 Overactive bladder 08/31/2024 Cervical cancer screening 07/14/2024 [...] connected to a therapist and psychiatrist thru [facility]. At this time Nani Sears meets criteria for Visit Diagnoses: Problem List Items Addressed This Visit Other Major depressive disorder Anxiety disorder, unspecified Patient ready to address current needs Yes Patient has services in place. Strengths include her usage of coping skills PLAN: 1. Follow up with [facility] [place]: Not recommended for follow-up 2. Patient goal [...] Encounters Date Type Department Care Team Description 12/22/2024 10:15 AM EDT Office Visit [facility] PED[facility] [address] [place] [address] Ann-Marie Camacho MD Benign essential hypertension (Primary Dx); Primary hypertension; Pure hypercholesterolemia; Type 2 diabetes mellitus without complication, without long-term current use of insulin (CMS/HCC); Muscle ache 12/22/2024 9:15 AM EDT Office Visit [facility] [address] [place] [address] Wendy Tobar, ROMI Type 2 diabetes mellitus without ophthalmic manifestations (CMS/HCC) (Primary Dx); Open angle with borderline findings, low risk, bilateral; Myopia, bilateral 12/22/2024 Orders Only [facility] [address] [place] [address] Laura Wan 12/22/2024 Travel 12/21/2024 6:20 PM EDT Office Visit [facility] [address] [place] [address] Ann-Marie Camacho MD Generalized abdominal pain (Primary Dx); Nausea 12/18/2024 Travel 12/10/2024 Patient Outreach [facility] [address] [place] [address] Ann-Marie Camacho MD Pre-visit Planning (Pre visit planning LVM ) 12/01/2024 Refill [facility] [address] [place] [address] Ann-Marie Camacho MD 11/30/2024 9:00 AM EDT Office Visit [facility] ADULT DENTAL [address] [place] [address] Gino Rosado 11/26/2024 11:15 AM EDT Office Visit [facility] [address] [place] [address] Ann-Marie Camacho MD Type 2 diabetes mellitus without complication, without long-term current use of insulin (CMS/HCC) (Primary Dx); Hypertension, unspecified type; Tooth ache; Pure hypercholesterolemia; Dietary counseling; Exercise counseling; Class 3 severe obesity due to excess calories with serious comorbidity and body mass index (BMI) of 45.0 to 49.9 in adult 11/26/2024 Orders Only [facility] [address] [place] [address] Ann-Marie Camacho MD Type 2 diabetes mellitus without complication, without long-term current use of insulin (CMS/HCC) (Primary Dx) 11/26/2024 Travel 11/19/2024 Telephone [facility] [address] [place] [address] Ann-aMrie Camacho MD ER Follow-up 11/16/2024 2:00 PM EDT Office Visit [facility] ADULT DENTAL [address] [place] [id number] Gino Rosado 11/11/2024 2:30 PM EDT Office Visit [facility] ADULT DENT[facility] [address] [place] [address] Marcia Helton DMD 11/05/2024 10:30 AM EDT Office Visit [facility] [address] [place] [address] Nelly Anderson MD Mixed hyperlipidemia (Primary Dx); Type 2 diabetes mellitus without complication, without long-term current use of insulin (CMS/HCC); Pain of right hip 11/05/2024 Travel 11/04/2024 Telephone [facility] [address] [place] [address] Ann-Marie Camacho MD Nurse Triage 11/04/2024 Travel 10/27/2024 11:00 AM EST Office Visit [facility] [address] [place] [address] Brando, Mireya, OD Type 2 diabetes mellitus without complication, without long-term current use of insulin (CMS/HCC) (Primary Dx); Suspicious optic nerve cupping of both eyes 10/27/2024 Travel 10/20/2024 Refill [facility] [address] [place] [address] Ann-Marie Camacho MD Type 2 diabetes mellitus without complication, without long-term current use of insulin (CMS/HCC) 10/06/2024 11:30 AM EST Office Visit [facility] ADULT DENTAL [address] [place] [address] Cheyenne Beltrán DDS 10/06/2024 Telephone [facility] [address] [place] [address] Cheyenne Beltrán DDS from Last 3 Months Immunizations Name Administration Dates Next Due Influenza, seasonal, injectable, preservative fr ee 06/26/2024 Moderna Covid-19 Vaccine 12+ 01/12/2021,12/15/19 21 Pneumococcal Conjugate PCV 20 06/26/2024 Tdap 05/10/2020 Family History Medical History Relation Name Comments Diabetes Father Diabetes Father's Sister bladder cancer Mother's Sister Relation Name Status Comments Father Father's Sister Mother's Sister Social History Tobacco Use Types [...] Mass Index 46.36 12/22/2024 10:26 AM EDT Plan of Treatment Upcoming Encounters Date Type Department Care Team (Late st Contact Info) Description 03/24/2025 10:30 AM EDT Office Visit [facility] PEDS [address] [place] [address] Ann-Marie Camacho MD [address] [place] [address] Health Maintenance Due Date Last Done Comments CT Colonography 1975 Dental Prophylaxis 1975 FIT DNA/Cologuard 1975 FIT 1975 FOBT 1975 HIV Screening 1975 Sigmoidoscopy 1975 Family Planning (PISQ) 1990 Diabetes: Urine Protein Screening 1994 Hepatitis B Vaccines (1 of 3 - 19+ 3-dose series) 1994 Dental Oral Exam 04/27/2022 10/24/2021 Diabetes: Foot Exam 05/01/2023 COVID-19 Vaccine ( season) 2024 01/12/2021, 12/14/2020 Dental X-Ray: Full Mouth 10/25/2024 10/24/2021 Diabetes: Hemoglobin A1C 02/25/2025 025, 08/31/2024, 05/12/2024, Additional history exists Zoster Vaccines (1 of 2) 2025 Lipid Panel 07/13/2025 07/13/2024, 01/12/2022 Alcohol/Substance Use Screening 11/05/2025 11/05/2024 SDOH Screening 11/05/2025 11/05/2024 Dental X-Ray: Bitewings 11/17/2025 11/17/19 25, 10/06/2024, 10/24/2021 Depression Screening 11/26/2025 11/26/2024, 11/27/19 Tobacco Screening 12/22/2025 12/22/2024 Mammogram 07/03/2026 07/03/2024 Eye Exam 12/22/2026 12/22/2024, 04/04/2025, 12/22/2024, Additional history exists Cervical Cancer Screening 07/14/2029 HPV/Cotest 07/14/2029 07/14/2024 Pap Smear 07/14/2029 07/14/2024, 11/16/2022 Colonoscopy 09/28/2029 09/28/2019 Colorectal Cancer [...] angle with borderline findings, low risk, bilateral POCT URINALYSIS DIPSTICK Routine 12/21/2024 5:57 PM EDT Generalized abdominal pain NO CHARGE VISIT Routine 11/30/2024 9:00 AM EDT POCT GLUCOSE Routine 11/26/2024 12:01 PM EDT Type 2 diabetes mellitus without complication, without long-term current use of insulin ([facility]) POCT GLYCATED HEMOGLOBIN, TOTAL Routine 11/26/2024 12:00 PM EDT Type 2 diabetes mellitus without complication, without long-term current use of insulin (CMS/HCC) BITEWING - SINGLE RADIOGRAPHIC IMAGE Routine 11/16/2024 2:00 PM EDT INTRAORAL - PERIAPICAL FIRST RADIOGRAPHIC IMAGE Routine 11/16/2024 2:00 PM EDT LIMITED ORAL EVALUATION - PROBLEM FOCUSED Routine 11/16/2024 2:00 PM EDT CASE PRESENTATION, DETAILED AND EXTENSIVE TREATMENT PLANNING Routine 11/11/2024 2:30 PM EDT 5 EXTRACTION, ERUPTED TOOTH OR EXPOSED ROOT (ELEVATION/FORCEPS REMOVAL) Routine 11/11/2024 2:30 PM EDT FUNDUS PHOTOS - OU - BOTH EYES Routine 10/27/2024 11:00 AM EST Type 2 diabetes mellitus without complication, without long-term current use of insulin (CMS/HCC) BITEWING - SINGLE RADIOGRAPHIC IMAGE Routine 10/06/2024 11:30 AM EST INTRAORAL - PERIAPICAL FIRST RADIOGRAPHIC IMAGE Routine 10/06/2024 11:30 AM EST LIMITED ORAL EVALUATION - PROBLEM FOCUSED Routine 10/06/2024 11:30 AM EST PAP SMEAR Routine 07/14/2024 10:44 AM EST Cervical cancer screening HPV MRNA E6/E7 REFLEX TO HPV 16, 18/45 Routine 07/14/2024 12:00 AM EST HEPATITIS C AB W/REFL TO HCV RNA, [...] Recently Relevant to Health Maintenance Results * OCT, Optic Nerve - OU [...] (OU). Continue to monitor annually with OCTs Result [facility] Wendy Tobar OD OPHTH TOMOGRAPHY Final Result * POCT urinalysis dipstick manually resulted (12/21/2024 5:57 PM EDT) Color, UA Yellow Clarity, UA Clear Glucose, UA Negative Bilirubin, UA Negative Ketones, UA Negative Spec Grav, UA 1.010 Blood, UA Negative Negative, None Detected pH, UA 5.0 Protein, UA Negative Urobilinogen, UA 0.2 Leukocytes, UA Negative Negative, Rare, Trace Nitrite, UA Negative Negative, None Detected Urine 12/21/2024 5:57 PM EDT Result [facility] Ann-Marie Camacho MD POINT OF CARE TEST ENTER/ED IT ORDERABLES Final Result * (ABNORMAL) POCT Glucose (11/26/2024 12:01 PM EDT) Glucose Blood, POC 211(A) 60 - 200 mg/dL QC Media Lot # [id number] Lot# Expiration Date [id number] Comment:random Blood Capillary blood specimen / Unknown 11/26/2024 12:01 PM EDT Result [facility] Ann-Marie Camahco MD POINT OF CARE TEST ENTER/ED IT ORDERABLES Final Result * (ABNORMAL) POCT HGB A1C (11/26/2024 12:00 PM EDT) Hemoglobin A1C 7.0(A) 4.0 - 6.0 % QC Media Lot # [id number] Lot# Expiration Date [id number] Blood 11/26/2024 12:0 0 PM EDT Ann-Marie Camacho MD POINT OF CARE TEST ENTER/ED IT ORDERABLES Final Result * Fundus Photos - OU - Both Eyes (10/27/2024 11:00 AM EST) Narrative BrandoMireya, OD - 11/12/2024 12:37 PM EDT Right Eye Progression has no prior data. Disc findings include thinning of rim (0.75/0.75 cupping). Macula findings include (Unable to view). Vessel findings include (Unable to view). Periphery findings include (Unable to view). Left Eye Progression has no prior data. Disc findings include thinning of rim (0.7/0.7 cupping). Macula findings include (Unable to view). Vessel findings include (Unable to view). Periphery findings include (Unable to view). Notes Assessment and Plan: Will have patient return for diabetic eye exam with dilation and OCT of optic nerves (although they appear large and perfused, there is large cupping in both eyes). us Mireya Barrerafo OD OPHTH PHOTOGRAPHY Final Resul t * Pap Smear (07/14/2024 10:44 AM EST) Swab 07/14/2024 10:4 4 AM EST 07/15/2024 9:15 AM EST Narrative [facility] - 07/17/2024 9:28 AM EST ----- ------- Name: Nani Sears Caryn ?Age/Sex: 49/F ? : 1975 Unit#: [id number] ?? Attend Dr: Dulce Marvin MD ?Re07/14/24 ?Status: DEP REF ? Location: HO.LNP ?Disch: ? ----- ------- SPEC : [id number] ?RECD: 07/15/24 ? STATUS: ??SOUT ? REQ NUM: [id number] ? CANDELARIO: 07/14/24-1049 ? SUBM DR: Dulce Marvin MD ? ENTERED: ??07/15/24 ?SP TYPE: Pap Smr ?OTHR : ? ORDERED: ??Pap Smear ? Interpretation ?? Satisfactory for evaluation. ?? Negative for intraepithelial lesion or malignancy. ? HPV High Risk: ??Negative ? HPV Genotyping 16: ??Negative ?? HPV Genotyping 18: ??Negative ?Clinical Information LMP: Postmenopausal Previous PAP test: Unknown date, +hrHPV ? Material Received ?? ThinPrep-Cervical ----- ------- Signed (signature on file) EVGENY Muñoz (ASCP) 07/17/24927 ? ----- ------- ? END OF REPORT ? us Dulce Marvin MD LAB CYTOLOGY ORDERABLES Final Result Performing Organization Address City/[facility]/ZIP Co de Phone Number [facility] [address] [place] [address] [phone] * HPV mRNA E6/E7 w/Reflex to HPV Genotypes 16, 18/45 (07/14/2024 12:00 AM EST) Historical Provider LAB CYTOLOGY ORDERABLES F inal Result Performing Organization Address [facility] Co de Phone Number [facility] [address] [place] [phone] * Hepatitis C Antibody with Reflex to HCV, RNA, Quantitative, Real-Time PCR (07/13/2024 11:36 AM EST) Hepatitis C Antibody Nonreactive Nonreactive [facility] Comment:Antibodies to HCV no t detected; does not exclude early acuteHCV infection. Blood Venous blood specimen / Unknown 07/13/2024 11:36 AM EST 07/13/2024 11:36 AM EST us Ann-Marie Camacho MD LAB BLOOD ORDERABLES Final Result Performing Organization Address [facility] Co de Phone Number [facility] [address] [place] [phone] * (ABNORMAL) Lipid Panel, Standard (07/13/2024 11:36 AM EST) Triglycerides 464(H) <150 mg/dL [facility] Comment:Desirable Triglyceri de: less than 150 mg/dLBorderline High Triglyceride 150-199 mg/dLHigh Triglyceride: 200-499 mg/dLVery High Triglyceride: greater than or equal to 5OO mg/dL Cholesterol 236(H) <200 mg/dL [facility] Comment:Desirable Cholestero l: less than 200 mg/dLBorderline High Cholesterol: 200-239 mg/dLHigh Cholesterol: greater than 239 mg/dL LDL Cholesterol Calculated TNP <100 mg/dL [facility] Comment:Unable to calculate the LDL. The formula of Friedwald,Kothari, and Audrey is only valid if the triglycerides areless than 400 mg/dl. HDL Cholesterol 35(L) >40 mg/dL [facility] Comment:Desirable HDL: great er than 40 mg/dL Note: This HDL assay may give artificially low results in patients with liver disease. Blood Venous blood specimen / Unknown 07/13/2024 11:36 AM EST 07/13/2024 11:36 AM EST us Ann-Marie Camacho MD LAB BLOOD ORDERABLES Final Result [facility] [address] [place] [address] [phone] * BI Mammogram Screening Tomosynthesis Bilateral [...] Most Recently Relevant to Health Maintenance Insurance BS PPO [facility] MEDICARE [facility] Address: [facility] [address] [place] [address] Care Teams Rehabilitation Therapist Relationship Specialty Start Date End Date Ann-Marie Camacho MD [address] [place] [address] LEILA Kam13 PCP - General Internal Medicine 02/23/21
--- OUTSIDE RECORDS SUMMARY | 2024-12-22 12:50 | XMS_ITS | Encounter Summary ---
Author Organization [employer] Address [address] [facility] [address] [place] [address] Care Team Providers Care Manager Concrete Name Role Phone Ann-Marie Camacho MD Primary Care Provider [phone] Encounter Details Date Type Department Care Team (Latest Contact Info) Description 07/13/2024 Orders Only [facility] [address] [place], [place] [phone] Ann-Marie Camacho MD [address] [place], [place] [phone] Pure hypercholesterolemia (Primary Dx) Social History Tobacco [...] Description 03/24/2025 10:30 AM EDT Office Visit [facility] [address] [place] [address] Ann-Marie Camacho MD [address] [place] [address] documented as of this encounter Visit Diagnoses Diagnosis Pure hypercholesterolemia- Primary documented in this encounter Additional Health Concerns Assessment Noted Time PHQ-9 Depression Total Score: 6 09/03/19 23 1:13 PM EST documented as of this encounter Care Teams Manager Concrete Relationship Specialty Start Date End Date Ann-Marie Camacho MD [address] [place] [address] PCP - General Internal Medicine 02/23/21 documented as of this encounter
--- OUTSIDE RECORDS SUMMARY | 2024-12-22 12:50 | XMS_ITS | Encounter Summary ---
Author Organization [employer] Address [address] [place] [address] 7 [place] [address] Care Team Providers Care Train Clerk Name Role Phone Ann-Marie Camacho MD Primary Care Provider [phone] Reason for Visit * Reason Comments Med Refill Encounter Details Date Type Department Care Team ([facility] Contact Info) Description 03/17/2023 Refill [facility] MED & PEDS [address] [place], [place] [phone] Ann-Marie Camacho MD [address] [place] [address] Social History Tobacco Use Types Packs/Day Years [...] Upcoming Encounters Date Type Department Care Team ([facility] Contact Info) Description 03/24/2025 10:30 AM EDT Office Visit [facility] [address] [place], [place] [phone] Ann-Marie Camacho MD [address] [place], [place] [phone] documented as of this encounter Visit Diagnoses Not on filedocumented in this encounter Additional Health Concerns Assessment Noted Time PHQ-9 Depression Total Score: 6 09/03/19 23 1:13 PM EST documented as of this encounter Care Teams Train Clerk Relationship Specialty Start Date End Date Ann-Marie Camacho MD [address] [place] [id number] PCP - General Internal Medicine 02/23/21 documented as of this encounter
--- OUTSIDE RECORDS SUMMARY | 2024-12-22 12:50 | XMS_ITS | Encounter Summary ---
Author Organization [employer] Address [address] [facility] 7t [place] [address] Care Team Providers Care Protective Signal Superintendent Name Role Phone Ann-Marie Camacho MD Primary Care Provider [phone] Encounter Details Date Type Department Care Team ([facility] Contact Info) Description 11/22/2022 Orders Only [facility] MED & PEDS [address] [place], [place] [phone] Ann-Marie Camacho MD [address] [place] [address] Acute pain of right shoulder (Primary Dx) [...] Description 03/24/2025 10:30 AM EDT Office Visit [facility] MED & PEDS [address] [place] [address] Ann-Marie Camacho MD [address] [place] [address] documented as of this encounter Visit Diagnoses Diagnosis Acute pain of right shoulder- Primary documented in this encounter Additional Health Concerns Assessment Noted Time PHQ-9 Depression Total Score: 6 09/03/19 23 1:13 PM EST documented as of this encounter Care Teams Protective Signal Superintendent Relationship Specialty Start Date End Date Ann-Marie Camacho MD [address] [place] [address] PCP - General Internal Medicine 02/23/21 documented as of this encounter
--- OUTSIDE RECORDS SUMMARY | 2024-12-22 12:50 | XMS_ITS | Encounter Summary ---
Author Organization [employer] Address 75 [facility] 7t [place] [address] Care Team Providers Care Machine Heel Seat Fitter Name Role Phone Ann-Marie Camacho MD Primary Care Provider [phone] Encounter Details Date Type Department Care Team (Latest Contact Info) Description 12/18/2024 Travel Social History Tobacco Use Types Packs/Day [...] Description 03/24/2025 10:30 AM EDT Office Visit [facility] MED & PEDS [address] [place] [address] Ann-Marie Camacho MD [address] [place] [address] documented as of this encounter Visit Diagnoses Not on filedocumented in this encounter Additional Health Concerns Assessment Noted Time PHQ-9 Depression Total Score: 0 11/27/19 25 11:30 AM EDT documented as of this encounter Care Teams Machine Heel Seat Fitter Relationship Specialty Start Date End Date Ann-Marie Camacho MD [address] [place] [address] PCP - General Internal Medicine 02/23/21 documented as of this encounter
--- OUTSIDE RECORDS SUMMARY | 2024-12-22 12:50 | XMS_ITS | Encounter Summary ---
Author Organization [employer] Address [address] [facility] 7t [place] [address] Care Team Providers Care Application Services Manager Name Role Phone Ann-Marie Camacho MD Primary Care Provider [phone] Encounter Details Date Type Department Care Team (Latest Contact Info) Description 12/22/2024 Travel Social History Tobacco Use Types Packs/Day [...] 10:30 AM EDT Office Visit [facility] MED & PEDS [address] [place] [address] Ann-Marie Camacho MD [address] [place] [address] documented as of this encounter Visit Diagnoses Not on filedocumented in this encounter Additional Health Concerns Assessment Noted Time PHQ-9 Depression Total Score: 0 11/27/19 25 11:30 AM EDT documented as of this encounter Care Teams Application Services Manager Relationship Specialty Start Date End Date Ann-Marie Camacho MD [address] [place] [address] PCP - General Internal Medicine 02/23/21 documented as of this encounter
--- OUTSIDE RECORDS SUMMARY | 2024-12-22 12:50 | XMS_ITS | Encounter Summary ---
Author Organization [employer] Address [address] [place] [address] 7 [place] [address] Care Team Providers Care Claims Representative Name Role Phone Ann-Marie Camacho MD Primary Care Provider [phone] Encounter Details Date Type Department Care Team (Latest Contact Info) Description 10/24/2021 Abstract [facility] CONVERSIONS Dental, Provider, DDS Social History Tobacco [...] Description 03/24/2025 10:30 AM EDT Office Visit [facility] CH[facility] MED & PEDS [address] [place] [address] Ann-Marie Camacho MD [address] [place] [address] documented as of this encounter Visit Diagnoses Not on filedocumented in this encounter Care Teams Claims Representative Relationship Specialty Start Date End Date Ann-Marie Camacho MD [address] [place] [address] PCP - General Internal Medicine 02/23/21 documented as of this encounter
--- OUTSIDE RECORDS SUMMARY | 2024-12-22 12:50 | XMS_ITS | Encounter Summary ---
Author Organization [employer] Address [address] [facility] 7t [place] [address] Care Team Providers Care Rcis Name Role Phone Ann-Marie Camacho MD Primary Care Provider [phone] Encounter Details Date Type Department Care Team ([facility] st Contact Info) Description 11/26/2024 Orders Only [facility] CHC MED & PEDS [address] [place], [place] [phone] Ann-Marie Camacho MD [address] [place], [place] [phone] Type 2 diabetes mellitus without complication, without long-term current use of insulin (CMS/[facility]) (Primary Dx) Social History Tobacco Use Types [...] Description 03/24/2025 10:30 AM EDT Office Visit [facility] MED & PEDS [address] [place] [address] Ann-Marie Camacho MD [address] [place] [address] documented as of this encounter Visit Diagnoses Diagnosis Type 2 diabetes mellitus without complication, without long-term current use of insulin ([facility])- Primary documented in this encounter Additional Health Concerns Assessment Noted Time PHQ-9 Depression Total Score: 0 11/27/19 25 11:30 AM EDT documented as of this encounter Care Teams Rcis Relationship Specialty Start Date End Date Ann-Marie Camacho MD [address] [place] [address] PCP - General Internal Medicine 02/23/21 documented as of this encounter
--- OUTSIDE RECORDS SUMMARY | 2024-12-22 12:50 | XMS_ITS | Encounter Summary ---
Author Organization [employer] Address [address] [facility] 7t [place] [address] Care Team Providers Care Poison Information Specialist Name Role Phone Ann-Marie Camacho MD Primary Care Provider [phone] Reason for Visit * Reason Comments Abdominal Pain Encounter Details Date Type Department Care Team ([facility] st Contact Info) Description 12/21/2024 6:20 PM EDT Office Visit [facility] [address] [place] [address] Ann-Marie Camacho MD [address] [place] [address] Generalized abdominal pain (Primary Dx); Nausea Social History Tobacco Use Types Packs/Day Years [...] Sign Reading Time Taken Comments Blood Pressure 148/86 12/21/2024 5:15 PM EDT Pulse 93 12/21/2024 5:15 PM EDT Temperature 36.7 ??C (98 ??F) 12/21/2024 5:15 PM EDT Respiratory Rate 16 12/21/2024 5:15 PM EDT Oxygen Saturation - - Inhaled Oxygen Concentration - - Weight 136 kg (300 lb) 12/21/2024 5:15 PM EDT Height 170.2 cm (5' 7 ) 12/21/2024 5:15 PM EDT Body Mass Index 46.99 12/21/2024 5:15 PM EDT documented in this encounter Progress Notes * Ann-Marie Camacho MD - 12/21/2024 6:20 PM EDT EPHRAIM Fletcher is a 49 y.o. female who presents for Abdominal Pain. Abdominal Pain This is a new problem. The current episode started in the past 7 days. The problem occurs constantly. The pain is located in the generalized abdominal region. The pain is at a severity of 4/10. The quality of the pain is dull and cramping. The abdominal pain does not radiate. Associated symptoms include diarrhea, flatus and nausea. Pertinent negatives include no anorexia, arthralgias, belching, constipation, dysuria, fever, frequency, headaches, hematochezia, hematuria, melena, myalgias, vomiting or weight loss. 7 BM ( mixed: both water and Formed) 3 days ago, Yesterday had 4 BM. Today no BM. NO associated fever. No sick contact . No suspicious meal. Pt did not eat out in the last week or so. Patient Active Problem List Diagnosis Abscess Acute pancreatitis Benign essential hypertension Bipolar disorder (CMS/HCC) Chronic back pain Complex renal cyst Type 2 diabetes mellitus (CMS/HCC) Disease due to severe acute respiratory syndrome coronavirus 2 (SARS-CoV-2) Gastroesophageal reflux disease Hyperlipidemia Hypertension Irritable bowel syndrome Major depressive disorder Migraine headache Obstructive sleep apnea syndrome Polycystic ovary syndrome Psychogenic pain Severe obesity ([facility]) Somatization disorder Acute pain of right shoulder Hospital discharge follow-up Anxiety disorder, unspecified Cervical cancer screening Overactive bladder Abdominal pain Abnormal stress ECG with treadmill Benign paroxysmal positional vertigo Bronchitis Dyspnea on exertion Environmental allergies Nausea vomiting and diarrhea Palpitation Chest discomfort Paresthesia Thrombosed external hemorrhoid Mid back pain on left side COVID-19 GERD (gastroesophageal reflux disease) Near syncope Major depression Migraine Diabetes due to underlying condition w oth circulatory comp (CMS/HCC) Allergies Allergen Reactions [place] Other Other reaction(s): bad reaction Other Reaction(s): [...] Rash Lamotrigine Rash Wound Dressing Adhesive Rash Current Outpatient Medications on File Prior to Visit Medication Sig Dispense Refill acetaminophen (Tylenol) 500 [...] g 1 Blood Glucose Monitoring Suppl (FreeStyle [place] Lite) w/Device kit Use to test blood sugar 1 times daily 1 kit 0 Blood Glucose Monitoring Suppl (FreeStyle [place] Lite) w/Device kit Use to test blood sugar 1 times daily 1 kit 0 Blood Glucose Monitoring Suppl (OneTouch Verio) w/Device kit 1 Units Once per day. 1 kit 0 ycwkdutfwm-oftipzjyqwiht-fyoqxvzy (Fioricet) 50-300-40 MG capsule TAKE 1 CAPSULE [...] DAY SUPPLY cloZAPine (Clozaril) 200 MG tablet empagliflozin (Jardiance) 10 MG Take 1 tablet [...] tablet by mouth every 8 (eight) hours. pantoprazole (ProtoNix) 40 MG EC tablet tiZANidine (Zanaflex) 4 MG tablet Take 1 tablet (4 mg) by mouth every 6 (six) hours if needed for muscle spasms for up to 10 days. 30 tablet 0 No current facility-administered medications on file prior to visit. Review of Systems Constitutional: Negative for fever and weight loss. Gastrointestinal: Positive for abdominal pain, diarrhea, flatus and nausea. Negative for anorexia, constipation, hematochezia, melena and vomiting. Genitourinary: Negative for dysuria, frequency and hematuria. Musculoskeletal: Negative for arthralgias and myalgias. Neurological: Negative for headaches. OBJECTIVE Vitals: 12/21/24 1715 BP: (!) 148/86 BP Location: Left arm Patient Position: Sitting BP Cuff Size: Large adult Pulse: 93 Resp: 16 Temp: 98 ??F (36.7 ??C) TempSrc: Temporal Weight: 300 lb (136 kg) Height: 5' 7 (1.702 m) Physical Exam Constitutional: General: She is not in acute distress. Appearance: Normal appearance. She is obese. She is not ill-appearing, toxic- appearing or diaphoretic. Cardiovascular: Rate and Rhythm: Normal rate. Pulmonary: Effort: Pulmonary effort is normal. Abdominal: General: There is distension. Palpations: Abdomen is soft. Neurological: General: No focal deficit present. Mental Status: She is alert. Psychiatric: Mood and Affect: Mood normal. Assessment/Plan Assessment/Plan Diagnoses and all orders for this visit: Generalized abdominal pain Comments: Most likely due to IBS Pt has allergy to Dicyclomin. Pt is to remain well hydrated. Advised to try OTC peppermint oil Orders: - POCT urinalysis dipstick manually resulted - CBC auto differential; Future - Amylase; Future - Lipase; Future - Comprehensive Metabolic Panel; Future - ondansetron (Zofran) 4 MG tablet; Take 1 tablet (4 mg) by mouth every 8 (eight) hours if needed for nausea or vomiting for up to 7 days. - Urinalysis, Complete, with Reflex to Culture; Future Nausea Zofran as directed. documented in this encounter Plan of Treatment Upcoming Encounters Date Type Department Care Team (Late st Contact Info) Description 03/24/2025 10:30 AM EDT Office Visit [facility] MED & PEDS [address] [place] [address] Ann-Marie Camacho MD [address] [place] [address] Scheduled Orders Name Type Priority Associated Diagnoses Orde r Schedule CBC auto differential Lab Routine Generalized abdominal pain Expected: 12/21/2024 (Approximate), Expires: 12/21/2025 Amylase Lab Routine Generalized abdominal pain Expected: 12/21/2024 (Approximate), Expires: 12/21/2025 Lipase Lab Routine Generalized abdominal pain Expected: 12/21/2024, Expires: 12/21/2025 Comprehensive Metabolic Panel Lab Routine Generalized abdominal pain Expected: 12/21/2024 (Approximate), Expires: 12/21/2025 Urinalysis, Complete, with Reflex to Culture Lab Routine Generalized abdominal pain Expected: 12/21/2024 (Approximate), Expires: 12/21/2025 documented as of this encounter Procedures Procedure Name Priority Date/Time Associated Diagnosis Comments POCT URINALYSIS DIPSTICK Routine 12/21/2024 5:57 PM EDT Generalized abdominal pain documented in this encounter Results * POCT urinalysis dipstick manually resulted (12/21/2024 5:57 PM EDT) Color, UA Yellow Clarity, UA Clear Glucose, UA Negative Bilirubin, UA Negative Ketones, UA Negative Spec Grav, UA 1.010 Blood, UA Negative Negative, None Detected pH, UA 5.0 Protein, UA Negative Urobilinogen, UA 0.2 Leukocytes, UA Negative Negative, Rare, Trace Nitrite, UA Negative Negative, None Detected Urine 12/21/2024 5:57 PM EDT Ann-Marie Camacho MD POINT OF CARE TEST ENTER/ED IT ORDERABLES Final Result documented in this encounter Visit Diagnoses Diagnosis Generalized abdominal pain- Primary Abdominal pain, generalized Nausea Nausea alone documented in this encounter Additional Health Concerns Assessment Noted Time PHQ-9 Depression Total Score: 0 11/27/19 25 11:30 AM EDT documented as of this encounter Care Teams Poison Information Specialist Relationship Specialty Start Date End Date Ann-Marie Camacho MD [address] [place] [id number] PCP - General Internal Medicine 02/23/21 documented as of this encounter
--- OUTSIDE RECORDS SUMMARY | 2024-12-22 12:51 | XMS_ITS | Encounter Summary ---
Author Organization [employer] Address [address] [place] [address] [place] [address] Care Team Providers Care Admitting Interviewer Name Role Phone Ann-Marie Camacho MD Primary Care Provider [phone] Reason for Visit * Reason Onset Date Comments Error 10/22/2023 Encounter Details Date Type Department Care Team ([facility] Contact Info) Description 10/22/2023 Telephone [facility] [address] [place], [place] [phone] Ann-Marie Camacho MD [address] [place], [place] [phone] Error Social History Tobacco Use Types Packs/Day [...] Upcoming Encounters Date Type Department Care Team ([facility] Contact Info) Description 03/24/2025 10:30 AM EDT Office Visit [facility] MED & PEDS [address] [place], [place] [phone] Ann-Marie Camacho MD [address] [place], [place] [phone] documented as of this encounter Visit Diagnoses Not on filedocumented in this encounter Additional Health Concerns Assessment Noted Time PHQ-9 Depression Total Score: 6 09/03/19 23 1:13 PM EST documented as of this encounter Care Teams Admitting Interviewer Relationship Specialty Start Date End Date Ann-Marie Camacho MD 505 [facility] [place] [address] PCP - General Internal Medicine 02/23/21 documented as of this encounter
[2024-12-22 14:25] LABS: MANUAL DIFF FLAG NO
[2024-12-22 14:27] LABS: Basophils Percent Auto 0.3 % (0-2); Hematocrit 40.2 % (37.0-47.0); Hemoglobin 13.2 g/dl (12.0-16.0); Imm Gran Abs Auto 0.02 X10*3/uL (0.00-0.03); Imm Gran Pct Auto 0.3 % (0.0-0.4); Lymphocytes Absolute Auto 2.7 X10*3/uL (1.2-4.9); Lymphocytes Percent Auto 34.9 % (20-40); Mean Corpuscular HGB Conc 32.8 g/dl (31.0-35.0); Mean Corpuscular Hemoglobin 29.9 pg (27.0-33.0); Mean Corpuscular Volume 91.2 fL (80.0-98.0); Mean Platelet Volume 10.7 fL (9.4-12.3); Monocytes Absolute Auto 0.4 X10*3/uL (0.1-1.2); Monocytes Percent Auto 5.2 % (2-11); Neutrophils Absolute Auto 4.7 x10*3/uL (2.0-8.3); Neutrophils Percent Auto 59.3 % (45-73); Platelet Count 247 X10*3/uL (160-400); Red Blood Count 4.41 X10*6/uL (4.20-5.50); White Blood Count 7.8 X10*3/uL (4.8-10.8)
[2024-12-22 15:38] LABS: Alanine Aminotransferase 35 U/L (0-31); Albumin Level 4.3 g/dL (3.5-5.0); Alkaline Phosphatase 66 U/L (39-117); Amylase 30 U/L (28-100); Anion Gap 13 (12-20); Aspartate Amino Transferase 26 U/L (5-31); Bilirubin Total 0.3 mg/dL (0.0-1.0); Blood Urea Nitrogen 13 mg/dL (9-16); Calcium 9.1 mg/dL (8.4-10.2); Carbon Dioxide 26 mmol/L (22-29); Chloride 104 mmol/L (96-108); Cholesterol 258 mg/dL (<200); Estimated Glomerular Filt Rate > 60; Glucose Random 86 mg/dL (60-115); HDL Cholesterol 34 mg/dL (>40); Lipase 31 U/L (8-78); Potassium 4.8 mmol/L (3.3-5.1); Sodium 138 mmol/L (135-145); Total Protein 7.4 g/dL (6.5-8.0); Triglycerides 436 mg/dL (<150)
== END 2024-12-22 11:02 | disposition home or self-care (01) ==
LOC: HO.CHCLDS 11:01
PROVIDERS: Visit Provider Internal Medicine
DX: R10.84 Generalized abdominal pain (principal); E78.00 Pure hypercholesterolemia, unspecified
CPT/HCPCS: 36415; 80053; 80061; 82150; 83690; 85025

== ENCOUNTER 2025-04-20 12:32 | Emergency (ER) | payer BC, MEDICARE, SELFPAY ==
--- OUTSIDE RECORDS SUMMARY | 2024-06-24 11:46 | XMS_ITS | Encounter Summary ---
Author Organization [facility] Address [address] [place] [address] Care Team Providers Care Stem Assembler Name Role Phone Don Hudson MD Primary Care Provider Unavail able Encounter Details Date Type Department Care Team (Late st Contact Info) Description 06/24/2024 11:46 AM EDT Hospital Encounter TH HISTORIC ENCOUNTERS EASTERN CONVERSION ONLY Harsh Proctor MD [address] [facility] [address] [place] [address] Social History Tobacco Use Types Packs/Day Years Used Date Smoking Tobacco: Every Day Cigarettes Smokeless Tobacco: Never Alcohol Use Standard Drinks/Week Comments Never 0 (1 standard drink = 0.6 oz pur e alcohol) Comments Unknown Sex and Gender Information Value Date Recorded Sex Assigned at Female 06/24/2024 11:24 AM EDT Legal Sex Female 1:08 PM EST Gender Identity Female 06/24/2024 11:24 AM EDT Sexual Orientation Straight 06/24/2024 11 :24 AM EDT Travel History Travel Start Travel End [place] 02/18/2025 03/20/2025 documented as of this encounter Plan of Treatment Not on file documented as of this encounter Procedures Procedure Name Priority Date/Time Associated Diagnosis Comments DR ABDOMEN FLAT AND ERECT Routine 06/24/2024 2:43 PM EDT documented in this encounter Results * DR ABDOMEN FLAT AND ERECT (06/24/2024 2:43 PM EDT) Anatomical Region Laterality Modality Radiographic Naila ging 06/24/2024 11:5 0 AM EDT Narrative 06/24/2024 2:[address] [facility] Diagnostic Imaging Department [address] [place] [address] Patient: FELICIA SEARS Caryn /Age/Sex: 1975 - 49 - F Unit#: [id number] Location/Status: SPDIGEN/REG CLI Mnemonic[facility] Ordering Physician: HARSH PROCTOR MD DR Abdomen Flat and Erect - 06/24/24 - 1214 Report Status:Signed INDICATION: Gastroparesis, chronic epigastric and upper abdominal pain FINDINGS: Supine and erect views of the abdomen were obtained. Compared to multiple prior studies most recent from December 11, 2017. CT scan of the abdomen and pelvis from October 03, 2023 reviewed. No evidence of free air or significant air-fluid levels. No evidence of air- filled, dilated loops of small bowel. Moderate amount of formed fecal material noted along the ascending colon along the distal transverse colon, splenic flexure and descending colon. Bony structures are normal for the patient's age. Surgical clips right upper quadrant consistent with cholecystectomy. IMPRESSION: No evidence of free air or obstruction. Dictating Physician: ANIRUDH ADKINS MD Electronically Signed by: ANIRUDH ADKINS MD Dic Date/Time: 06/24/24 1441 Sign date/Time: 06/24/24 1443 Procedure Note Anirudh Adkins MD - 06/27/2024 [facility] Diagnostic Imaging Department [address] [place] [address] Patient: FELICIA SEARS /Age/Sex: 1975 - 49 - F Unit#: [id number] Location/Status: SPDIGEN/REG CLI Mnemonic/Ordering Site: [facility] Ordering Physician: HARSH PROCTOR MD DR Abdomen Flat and Erect - 06/24/24 - 1214 Report Status:Signed INDICATION: Gastroparesis, chronic epigastric and upper abdominal pain FINDINGS: Supine and erect views of the abdomen were obtained. Comparedto multiple prior studies most recent from December 11, 2017. CT scan of theabdomen and pelvis from October 03, 2023 reviewed. No evidence of free air or significant air-fluid levels. No evidence ofair- filled, dilated loops of small bowel. Moderate amount of formed fecalmaterial noted along the ascending colon along the distal transverse colon,splenic flexure and descending colon. Bony structures are normal for the patient's age. Surgical clips right upper quadrant consistent with cholecystectomy. IMPRESSION: No evidence of free air or obstruction. Dictating Physician: ANIRUDH ADKINS MD Electronically Signed by: ANIRUDH ADKINS MD Dic Date/Time: 06/24/24 1441 Sign date/Time: 06/24/24 1443 us Harsh Proctor MD IMG XR PROCEDURES Final Result documented in this encounter Visit Diagnoses Not on filedocumented in this encounter Additional Health Concerns Infection Onset Date Last Indicated Resolved Time Respiratory Rule-Out 11/16/2024 11/16/2024 025 4:50 PM EDT COVID-19 Rule-Out 11/16/2024 11/16/2024 11/16/2024 4:50 PM EDT documented as of this encounter Care Teams Stem Assembler Relationship Specialty Start Date End Date Don Hudson MD PCP - General 03/30/02 11/15/24 documented as of this encounter
[2025-04-20 12:44] VITALS: BP 149/92; PULSE 86; RESP 18; O2SAT 95; BMI 45.6
--- NOTE | 2025-04-20 12:53 | ED.GENADULT ---
HPI - General Adult General Chief complaint: Psychiatric Symptoms Stated complaint: Crisis Time Seen by Provider: 04/20/25 13:16 History of Present Illness HPI narrative: Patient is a 49-year-old female with a history of anxiety, bipolar presents today with having suicidal thoughts and also homicidal thoughts toward patient's son-in-law. There is no fever no chills no chest pain or diaphoresis. Patient is from home. Patient's daughter has been going through some custody issue with her son. Patient's feel very upset about it. Had thoughts of wanting to end her life but there is no specific plans. History of SI in the past. Related Data Home Medications ?Medication ?Instructions ?Recorded ?Confirmed pantoprazole 40 mg tablet,delayed 40 mg PO BID@0630,1630 11/22/20 04/20/25 release clozapine 100 mg tablet 200 mg PO BEDTIME 11/13/21 04/20/25 lisinopril 40 mg tablet 40 mg PO DAILY 11/13/21 04/20/25 clonazepam 1 mg tablet 1 mg PO BID anxiety 07/03/22 04/20/25 metformin 1,000 mg tablet 1,000 mg PO BIDWM 07/03/22 04/20/25 metoprolol succinate 50 mg 50 mg PO DAILY 07/03/22 04/20/25 tablet,extended release 24 hr mirabegron 50 mg tablet,extended 50 mg PO DAILY 07/03/22 04/20/25 release 24 hr (Myrbetriq) clozapine 50 mg tablet 50 mg PO QAM 04/20/25 04/20/25 doxycycline hyclate 100 mg tablet 100 mg PO BID 04/20/25 04/20/25 prednisone 20 mg tablet 40 mg PO DAILY 04/20/25 04/20/25 Previous Rx's ?Medication ?Instructions ?Recorded albuterol sulfate 90 mcg/actuation 2 puff inhalation Q4-6H PRN 05/01/23 aerosol inhaler (Proventil HFA) shortness of breath or wheezing #6.7 grams ondansetron HCl 4 mg tablet 4 mg PO Q8H PRN nausea and 09/05/23 vomiting #14 tabs Allergies Allergy/AdvReac Type Severity Reaction Status Date / Time Penicillins (PENICILLINS) Allergy Severe ANAPHYLAXIS Verified 04/20/25 12:48 adhesive (ADHESIVE) Allergy Unknown RASH Verified 04/20/25 12:48 artichoke (ARTICHOKE) Allergy Unknown RASH Verified 04/20/25 12:48 carbamazepine (From TEGRETOL) Allergy Unknown MIGRAINES Verified 04/20/25 12:48 cariprazine (From VRAYLAR) Allergy Unknown LEG CRAMPS Verified 04/20/25 12:48 fentanyl (FENTANYL) Allergy Unknown RASH Verified 04/20/25 12:48 lamotrigine (From LAMICTAL) Allergy Unknown RASH Verified 04/20/25 12:48 lithium (LITHIUM) AdvReac Severe tremor and Verified 04/20/25 12:48 falls dicyclomine AdvReac Hallucinati Verified 04/20/25 12:48 ons Review of Systems Review of Systems: No fever no chills no chest pain or diaphoresis Yes all other systems are reviewed and are negative [facility] Past Medical History Attestation statement: The following information was validated with the patient. Medical History Hypertension Diabetes Thrombosed external hemorrhoid Morbid obesity with BMI of 45.0-49.9, adult Depression Anxiety Renal colic Migraines PCOS (polycystic ovarian syndrome) Pre-diabetes High cholesterol GERD (gastroesophageal reflux disease) Obstructive sleep apnea Bipolar disease, chronic Surgical History History of cholecystectomy History of dilation and curettage Family History Family History Father Coronary artery disease Other Breast cancer Social History Social History Household Members: Spouse and Children Housing: Apartment Do you presently have visiting nurse or other home services: No Alcohol intake: former Patient Tobacco Use Status: Current everyday Tobacco user Tobacco use type: Cigarette Cigarette Packs Per Day: 1 Cigarettes Per Day: 20.0 Years Smoked: 30 +/- Smoked in Last 30 Days: Yes Use of substances other than those prescribed or required for medical reasons: Yes Substance Use Type: Marijuana Advance Directives: No Advance Directives Information Provided: Yes Do you have a plan to hurt others: Specific service: No Current occupational status: employed Physical Exam ED Exam Exam: Appearance: Alert. Oriented X3. No acute distress. Eyes: Pupils equal, round and reactive to light. ENT: Pharynx normal. Neck: Normal inspection. Neck supple. No lymph nodes noted. No crepitus CVS: Normal heart rate and rhythm. Pulses normal. Normal S1 and S2 Respiratory: No respiratory distress. Breath sounds normal. No Wheezing. No rales Abdomen: Soft and nontender. No rigidity. No distention. good BS x4 Skin: Skin warm and dry. Normal skin color. Normal skin turgor. Extremities: No lower extremity edema. Neurovascular intact to all extremities. No Lacerations. No Rash Neuro: Oriented X 3. No motor deficit. No sensory deficit. Moving all extermities. No slurred speech. Cranial nerves grossly intact Vital Signs: Vital Signs - 24 hr 04/20/25 12:44 Pulse Rate 86 Respiratory Rate 18 Blood Pressure 149/92 H Pulse Oximetry 95 Oxygen Delivery Method Room Air BMI result Body Mass Index 45.6 Course Course Course Narrative: RME: 49-year-old female presents to ED for vague SI statements and thoughts wanting to kill her daughter's . Patient is brought back to the ED to be change in and will be seen as a psych patient. Labs ordered Medical Decision Making Medical Decision Making MDM Narrative: Well-appearing no acute distress. Will get crisis evaluate patient. Patient seen by crisis team. [place] comfortable with having patient go home. Patient currently not suicidal homicidal. Has outpatient help. In stable condition. Differential Diagnosis Differential Diagnoses: The differential diagnosis associated with the presentation includes Depression, anxiety, suicidal ideation Admission/Observation Consideration of admission/observation: Escalation of care including admission/observation considered Lab Data MDM Lab Attestation statement: I reviewed the patient's lab results. 04/20/25 13:11 04/20/25 13:11 Labs: Lab Results 04/20/25 04/20/25 Range/Units 13:11 13:20 WBC 10.5 (4.8-10.8) X10*3/uL RBC 4.17 L (4.20-5.50) X10*6/uL Hgb 12.6 (12.0-16.0) g/dl Hct 38.0 (37.0-47.0) % MCV 91.1 (80.0-98.0) fL MCH 30.2 (27.0-33.0) pg MCHC 33.2 (31.0-35.0) g/dl RDW 13.1 (11.0-16.0) % Plt Count 223 (160-400) X10*3/uL MPV 9.3 L (9.4-12.3) fL Immature Gran % (Auto) 0.5 H (0.0-0.4) % Neut % (Auto) 73.4 H (45-73) % Lymph % (Auto) 22.2 (20-40) % [place] % (Auto) 3.8 (2-11) % Eos % (Auto) 0.0 (0-4) % Baso % (Auto) 0.1 (0-2) % Lymph # (Auto) 2.3 (1.2-4.9) X10*3/uL [place] # (Auto) 0.4 (0.1-1.2) X10*3/uL Eos # (Auto) 0.0 (0.0-0.4) X10*3/uL Baso # (Auto) 0.0 (0.0-0.2) X10*3/uL Abs Immat Gran (auto) 0.05 H (0.00-0.03) X10*3/uL Absolute Neuts (auto) 7.7 (2.0-8.3) x10*3/uL Absolute Nucleated RBC 0.000 (0.0-0.012) X10*3/uL Nucleated RBC % (auto) 0.0 (0.0-0.2) /100WBC Sodium 141 (135-145) mmol/L Potassium 3.8 D (3.3-5.1) mmol/L Chloride 106 (96-108) mmol/L Carbon Dioxide 23 (22-29) mmol/L Anion Gap 16 (12-20) BUN 13 (9-16) mg/dL Creatinine 0.70 (0.5-1.4) mg/dL Estim Creat Clear Calc 137.7 Estimated GFR > 60 Random Glucose 170 H (60-115) mg/dL Calcium 9.2 (8.4-10.2) mg/dL Total Bilirubin 0.2 (0.0-1.0) mg/dL AST 21 (5-31) U/L ALT 34 H (0-31) U/L Alkaline Phosphatase 63 (39-117) U/L Total Protein 6.7 (6.5-8.0) g/dL Albumin 4.3 (3.5-5.0) g/dL Beta HCG, Quant 5 mIU/mL Urine Opiates Screen Not Detected (Not Detect) Ur Buprenorphine Scrn Not Detected (Not Detect) ng/mL Ur Oxycodone Screen Not Detected (Not Detect) ng/mL Urine Methadone Screen Not Detected (Not Detect) ng/mL Urine Fentanyl Screen Not Detected (Not Detect) Ur Barbiturates Screen Not Detected (Not Detect) Ur Phencyclidine Scrn Not Detected (Not Detect) Ur Amphetamines Screen Not Detected (Not Detect) U Benzodiazepines Scrn Not Detected (Not Detect) Urine Cocaine Screen Not Detected (Not Detect) U Marijuana (THC) Screen POSITIVE H (Not Detect) Ethyl Alcohol < 10 mg/dL Independent Historian Clinical information obtained from an independent historian. History obtained from or confirmed by: EMS External Record Review External record reviewed: Inpatient record (Previous hospitalist low reviewed) Chronic Conditions Suicidal ideation depression bipolar, diabetes Social Determinants Patient?s care significantly limited by Social Determinants of Health including: Problems related to primary support group Discharge Plan Discharge Clinical Impression: Depression, Suicidal ideation Patient Disposition: Home, Self-Care Instructions: Depression (ED), Suicide Prevention (ED) Prescriptions: No Action Myrbetriq 50 mg tablet extended release 24 hr 50 mg PO DAILY clozapine 100 mg tablet 200 mg PO BEDTIME lisinopril 40 mg tablet 40 mg PO DAILY clonazepam 1 mg tablet 1 mg PO BID metformin 1,000 mg tablet 1,000 mg PO BIDWM metoprolol succinate 50 mg tablet extended release 24 hr 50 mg PO DAILY ondansetron HCl 4 mg tablet 4 mg PO Q8H PRN (Reason: nausea and vomiting) Qty: 14 0RF Patient Comments: PRN med albuterol sulfate [Proventil HFA] 90 mcg/actuation HFA aerosol inhaler 2 puff inhalation Q4-6H PRN (Reason: shortness of breath or wheezing) Qty: 6.7 0RF prednisone 20 mg tablet 40 mg PO DAILY doxycycline hyclate 100 mg tablet 100 mg PO BID clozapine 50 mg tablet 50 mg PO QAM pantoprazole 40 mg tablet,delayed release (DR/EC) 40 mg PO BID@0630,1630 Referrals: Ann-Marie Camacho MD [Primary Care Provider, Medical] Referral Note: Please follow-up as per care team Interventions: [place]-Suicide Risk Severity Scale Last Done: 04/20/25 13:15 Print Language: Greenlandic
[2025-04-20 13:14] LABS: MANUAL DIFF FLAG NO
[2025-04-20 13:18] LABS: Hematocrit 38.0 % (37.0-47.0); Hemoglobin 12.6 g/dl (12.0-16.0); Imm Gran Abs Auto 0.05 X10*3/uL (0.00-0.03); Imm Gran Pct Auto 0.5 % (0.0-0.4); Lymphocytes Absolute Auto 2.3 X10*3/uL (1.2-4.9); Mean Corpuscular HGB Conc 33.2 g/dl (31.0-35.0); Mean Corpuscular Hemoglobin 30.2 pg (27.0-33.0); Mean Corpuscular Volume 91.1 fL (80.0-98.0); NRBC Abs Auto 0.000 X10*3/uL (0.0-0.012); NRBC Pct Auto 0.0 /100WBC (0.0-0.2); Platelet Count 223 X10*3/uL (160-400); Red Blood Count 4.17 X10*6/uL (4.20-5.50); White Blood Count 10.5 X10*3/uL (4.8-10.8)
--- NOTE | 2025-04-20 13:27 | PC.NURSE ---
Denies SI/HI states feels overwhelmed with multiple things going on in he life (daughters custody issues, current housing situation). States has a lot to live for but if just overwhelmed. Was started on prednisone for a bug bite to arm and feels that may be a contributing factor because in the past it made her feel off . Care team at bedside
[2025-04-20 13:41] LABS: Alanine Aminotransferase 34 U/L (0-31); Albumin Level 4.3 g/dL (3.5-5.0); Alkaline Phosphatase 63 U/L (39-117); Anion Gap 16 (12-20); Aspartate Amino Transferase 21 U/L (5-31); Blood Urea Nitrogen 13 mg/dL (9-16); Calcium 9.2 mg/dL (8.4-10.2); Carbon Dioxide 23 mmol/L (22-29); Chloride 106 mmol/L (96-108); Creatinine Clr Calc Pharmacy 137.7; Estimated Glomerular Filt Rate > 60; Potassium 3.8 mmol/L (3.3-5.1); Sodium 141 mmol/L (135-145); Total Protein 6.7 g/dL (6.5-8.0)
[2025-04-20 13:48] LABS: Cannabinoid Screen Urine POSITIVE (Not Detect)
--- OUTSIDE RECORDS SUMMARY | 2025-04-20 14:46 | XMS_ITS | Clinical Summary ---
Author Organization [facility] [place] [address] Phone Care Team Providers Care Photographer Helper Name Role Phone Ann-Marie Camacho MD Primary Care Provider [phone] Allergies Active Allergy Reactions Criticality Noted Date Comments Adhesive Rash Low 03/20/2023 Other Reaction(s): adhesive on patches-skin irritations Artichoke Rash Low 08/15/2022 artichoke Carbamazepine 01/02/2022 Other Reaction(s): MIGRAINES Cariprazine 01/02/2022 Other Reaction(s): LEG CRAMPS Clindamycin Other 11/19/2024 Reports when taking feels like throat enriquez Dicyclomine Hallucinations 09/16/2024 Fentanyl Rash Low 03/20/2023 Lamotrigine Rash Low 01/02/2022 [place] Other High 01/02/2022 Other Reaction(s): bad reaction Other reaction(s): bad reaction Other Reaction(s): tremor and falls Other Rash 01/26/2025 artichoke Penicillins Anaphylaxis,Shortnes s of breath High 02/23/2021 Other reaction(s): can't breathe, Difficulty breathing, Vomiting Wound Dressings 08/15/2022 Other reaction(s): adhesive on patches-skin irritations Medications pantoprazole (PROTONIX) 40 mg EC tabletIndicatio ns:GERD (gastroesophage al reflux disease) TAKE 1 TABLET BY MOUTH TWICE DAILY 180 tablet 3 08/24/2024 Active lisinopril (PRINIVIL,ZESTR IL) 40 mg tablet Take 1 tablet (40 mg total) by mouth 1 (one) time each day. Active metoprolol succinate (TOPROL-XL) 100 mg 24 hr tablet Take 1 tablet (100 mg total) by mouth 1 (one) time each day. Do not crush or chew. Active metFORMIN (FORTAMET) 1,000 mg 24 hr tablet Take 1 tablet (1,000 mg total) by mouth 2 (two) times a day. Do not crush, chew, or split. Active mirabegron (Myrbetriq) 50 mg tablet extended release 24 hr 24 hr tablet Take 1 tablet (50 mg total) by mouth 1 (one) time each day. 08/05/2021 Active cloZAPine (CLOZARIL) 200 mg tablet Take 1 tablet (200 mg total) by mouth at bedtime. 01/25/2025 Active cloZAPine (CLOZARIL) 50 mg tablet Take 1 tablet (50 mg total) by mouth 1 (one) time each day. 07/26/2021 Active clonazePAM (KlonoPIN) 1 mg tablet Take 1 tablet (1 mg total) by mouth 2 (two) times a day. Active cetirizine (ZyrTEC) 5 mg chewable tablet Chew 1 (one) time each day. Active diphenhydrAMINE (BENADRYL) 25 mg capsule Take 1 capsule (25 mg total) by mouth every 4 (four) hours if needed (headache) for up to 5 days. 30 capsule 03/14/2025 Active metoclopramide (REGLAN) 10 mg tablet Take 1 tablet (10 mg total) by mouth every 6 (six) hours if needed (headache) for up to 8 days. 30 tablet 03/14/2025 03/22/20 25 acetaminophen (TYLENOL) 500 mg tablet Take 2 tablets (1,000 mg total) by mouth every 6 (six) hours if needed for mild pain for up to 10 days. 30 tablet 03/14/2025 03/24/20 25 naproxen (NAPROSYN) 500 mg tablet Take 1 tablet (500 mg total) by mouth 2 (two) times a day with meals for 15 days. 30 tablet 03/14/2025 03/29/20 25 Active Problems Problem Noted Date Diagnosed Date Psychogenic pain 01/26/2025 Abdominal pain 11/16/2024 Abnormal stress ECG with treadmill 11/16/2024 Benign paroxysmal positional vertigo 11/16/2024 Bronchitis 11/16/2024 Chest discomfort 11/16/2024 Paresthesia 11/16/2024 Diabetes due to underlying c ondition w oth circulatory comp (CMS/[facility] V24, [facility] V28) 11/16/2024 Dyspnea on exertion 11/16/2024 Mid back pain on left side 11/16/2024 Nausea vomiting and diarrhea 11/16/2024 Near syncope 11/16/2024 Palpitation 11/16/2024 Thrombosed external hemorrhoid 11/16/2024 Overactive bladder 08/31/2024 Anxiety disorder, unspecified 05/09/2023 Acute pain of right shoulder 08/21/2022 Abscess 08/15/2022 Benign essential hypertension 08/15/2022 Bipolar disorder ([facility] V24, [facility] V28) 07/27 Hyperlipidemia 08/15/2022 Major depressive disorder 08/15/2022 Irritable bowel syndrome 08/15/2022 Assessment & Plan (01/27/2025 1:41 PM EDT): 49-year-old female with history of chronic GI issues including IBS of a mixed nature presenting for follow-up after recent ER visit. Currently the patient reports being back to baseline. We did review her imaging studies as well as laboratories. More than likely the question of inflammation of the rectum was related to her manual disimpaction's as well as the significant constipation which has resolved. Given she is returned to baseline I have recommended the followin. Resume MiraLAX on a daily basis. 2. Change Senokot to as needed. 3. Discussed high-fiber diet supplemented by a high fluid intake. 4. Discussed impact of her poor digestive motility. 5. Will schedule routine follow-up. 6. Patient has to contact our office should she have recurrent issues. Chronic back pain 08/15/2022 Migraine headache 08/15/2022 Hypertension 08/15/2022 Obstructive sleep apnea syndrome 08/15/2022 Polycystic ovary syndrome 08/15/2022 Psychogenic pain 08/15/2022 Severe obesity (CMS/[facility] V24, [facility] V28) 2021 Somatization disorder 08/15/2022 Disease due to severe acute respiratory syndrome coronavirus 2 (SARS-CoV-2) 02/06/2022 Overview (01/26/2025): Problem added by Discern Expert Complex renal cyst 11/21/2021 Acute pancreatitis 03/23/2021 Gastroesophageal reflux disease 03/05/2021 Gastroparesis Assessment & Plan (01/27/2025 1:41 PM EDT): As stated above. Currently under fair control with the use of pantoprazole and diet. Patient is knowledgeable about her underlying issues. Once more discussed in detail. Encounters Date Type Department Care Team Description 03/20/2025 5:18 PM EDT - 03/20/2025 6:[address] [facility] [address] [place] [phone] Tyrese Grover MD Fecal impaction (CMS/[facility] V24, [facility] V28) (Primary Dx) Discharge Disposition: Home or Self Care 03/14/2025 5:14 PM EDT - 03/14/2025 7:[address] [facility] [address] [place] [phone] Indra Tejeda MD Intractable migraine without aura and with status migrainosus (Primary Dx) Discharge Disposition: Home or Self Care 01/27/2025 1:30 PM EDT Office Visit Gastroenterology - [address] [phone] Jim Martinez MD Irritable bowel syndrome with both constipation and diarrhea (Primary Dx); Gastroparesis 01/21/2025 9:47 AM EDT - 01/21/2025 3:[address] [facility] Emergency [address] [place] [phone] Oliverio Bejarano MD Constipation, unspecified constipation type (Primary Dx); Proctitis Discharge Disposition: Home or Self Care 01/20/2025 Telephone Gastroenterology - [address] [phone] Aminah Ace, GRADING MACHINE OPERATOR from Last 3 Months Immunizations Name Administration Dates Next Due Influenza trivalent, 0.5mL, preservative free (Fluarix; FluLaval; Fluzone) ages 6mo and older (Afluria) 3 years and older 06/26/2024 PPD Test 04/09/2003 Pneumococcal conjugate 20 va lent (Prevnar 20, PCV 20) 2mo and older 06/26/2024 Tdap Tetanus diptheria acell ular pertussis (Boostrix; Adacel) 7yo and older 05/10/2020 Surgical History Surgery Date Site/Laterality Comments COLONOSCOPY 08/26/2019 - 08/25/2020 Medical History Medical History Date Comments Hypertension Diabetes mellitus ([facility] V24, [facility] V28) Hypercholesteremia Depression Anxiety Gastroparesis Migraine Social History Tobacco Use Types Packs/Day Years Used Date Smoking Tobacco: Every Day Cigarettes Smokeless Tobacco: Never Tobacco Cessation:Ready to Q uit: Not Asked; [...] EDT Travel History Travel Start Travel End [place] 02/18/2025 03/20/2025 Obstetrics History Last Filed Vital Signs Vital Sign Reading Time Taken Comments Blood Pressure 152/80 03/20/2025 3:35 PM EDT Pulse 93 03/20/2025 3:35 PM EDT Temperature 36.7 C (98.1 F) 03/20/2025 3:35 PM EDT Respiratory Rate 18 03/20/2025 3:35 PM EDT Oxygen Saturation 97% 03/20/2025 3:35 PM EDT Inhaled Oxygen Concentration - - Weight 133 kg (293 lb) 03/20/2025 3:35 PM EDT Height 170.2 cm (5' 7 ) 03/20/2025 3:35 PM EDT Body Mass Index 45.89 03/20/2025 3:35 PM EDT Plan of Treatment Health Maintenance Due Date Last Done Comments Breast Cancer Screening 1975 Diabetes: Annual Foot Exam 1985 Hepatitis B Vaccines (1 of 3 - 19+ 3-dose series) 1994 HIV Screening 07/24/2022 Medicare Annual Wellness Visit 07/24/2022 Social Influencers of Health Screening 07/24/2022 COVID-19 Vaccine (2023- season) 2024 01/12/2021, 12/14/2020 Depression Screening 08/26/2024 Diabetes: Annual Urine Albumin-Creatinine Ratio (uACR) 11/17/2024 Influenza Vaccine (#1) 2025 06/26/2024 Diabetes: Blood Sugar Control Test (HGBA1C) 05/28/2025 11/26/2024, 08/31/2024 Diabetes: Annual Retina Eye Exam 10/27/2025 10/27/2024 Diabetes: Annual GFR (Glomerular Filtration Rate) 03/14/2026 03/14/2025, 01/21/2025, 12/22/2024, Additional history exists Hypertension/CHF/CAD Annual BMP Blood Test 03/14/2026 03/14/2025, 01/21/2025, 12/22/2024, Additional history exists Cervical Cancer Screening: Pap Smear 07/14/2027 07/14/2024 Cholesterol Screening (Lipid Panel) 12/22/2029 12/22/2024, 07/13/2024 DTaP,Tdap,and Td Vaccines (2 - Td or Tdap) 05/10/2030 05/10/2020 Colorectal Cancer Screening: Colonoscopy 03/02/2035 03/02/2025 Pneumococcal Vaccine: Pediatrics (0 to 5 Years) and At-Risk Patients (6 to 49 Years) Completed 06/26/2024 Hepatitis C Screening Completed [...] 20 months Aged Out No longer eligible based on patient's age to complete this topic Varicella Vaccines Aged Out No longer eligible based on patient's age to complete this topic Procedures Procedure Name Priority Date/Time Associated Diagnosis Comments CBC WITH AUTO DIFFERENTIAL STAT 03/14/2025 5:29 PM EDT COMPREHENSIVE METABOLIC PANEL STAT 03/14/2025 5:29 PM EDT CBC AND DIFFERENTIAL STAT 03/14/2025 5:29 PM EDT COLONOSCOPY Routine 03/02/2025 9:[address] ABDOMEN PELVIS W CONTRAST STAT 01/21/2025 1:08 PM EDT XR ABDOMEN 1 VIEW STAT 01/21/2025 9:4 5 AM EDT HCG, SERUM, QUALITATIVE STAT Add-on 01/21/2025 9:28 AM EDT CBC WITH AUTO DIFFERENTIAL STAT 01/21/2025 9:28 AM EDT LIPASE STAT 01/21/2025 9:28 AM EDT COMPREHENSIVE METABOLIC PANEL STAT 01/21/2025 9:28 AM EDT CBC AND DIFFERENTIAL STAT 01/21/2025 9:28 AM EDT from Last 3 Months Results * CBC auto differential (03/14/2025 5:29 PM EDT) Only the most recent of2 resultswithin the time period is included. WBC 10.4 4.8 - 10.8 K/mcL LAB HEMETOLOGY METHOD 03/14/2025 5:48 PM EDT [facility] RBC 4.40 3.80 - 4.80 M/mcL LAB HEMETOLOGY METHOD 03/14/2025 5:48 PM EDT [facility] Hemoglobin 13.3 11.5 - 16.0 g/dL LAB HEMETOLOGY METHOD 03/14/2025 5:48 PM EDT [facility] Hematocrit 39.7 35.0 - 47.0 % LAB HEMETOLOGY METHOD 03/14/2025 5:48 PM EDT [facility] MCV 90.4 79.0 - 98.0 FL LAB HEMETOLOGY METHOD 03/14/2025 5:48 PM EDT [facility] MCH 30.3 27.0 - 32.0 pcg LAB HEMETOLOGY METHOD 03/14/2025 5:48 PM EDT [facility] MCHC 33.5 32.0 - 37.0 g/dL LAB HEMETOLOGY METHOD 03/14/2025 5:48 PM EDT [facility] RDW 13.2 11.0 - 15.0 % LAB HEMETOLOGY METHOD 03/14/2025 5:48 PM EDT [facility] Platelets 234 130 - 400 K/mcL LAB HEMETOLOGY METHOD 03/14/2025 5:48 PM EDT [facility] MPV 10.1 7.0 - 11.0 FL LAB HEMETOLOGY METHOD 03/14/2025 5:48 PM EDT [facility] NRBC 0.0 <1.0 % LAB HEMETOLOGY METHOD 03/14/2025 5:48 PM EDT [facility] NRBC Absolute 0.00 <0.10 K/mcL LAB HEMETOLOGY METHOD 03/14/2025 5:48 PM EDT [facility] Neutrophils Relative 62.3 % LAB HEMETOLOGY METHOD 03/14/2025 5:48 PM EDT [facility] Lymphocytes Relative 32.3 % LAB HEMETOLOGY METHOD 03/14/2025 5:48 PM EDT [facility] Monocytes Relative 4.9 % LAB HEMETOLOGY METHOD 03/14/2025 5:48 PM EDT [facility] Eosinophils Relative 0.1 % LAB HEMETOLOGY METHOD 03/14/2025 5:48 PM EDT [facility] Basophils Relative 0.1 % LAB HEMETOLOGY METHOD 03/14/2025 5:48 PM EDT [facility] Immature Granulocytes Relative 0.3 % LAB HEMETOLOGY METHOD 03/14/2025 5:48 PM EDT [facility] Neutrophils Absolute 6.45 1.50 - 7.00 K/mcL LAB HEMETOLOGY METHOD 03/14/2025 5:48 PM EDT [facility] Lymphocytes Absolute 3.35 1.00 - 5.00 K/mcL LAB HEMETOLOGY METHOD 03/14/2025 5:48 PM EDT [facility] Monocytes Absolute 0.51 0.20 - 1.00 K/mcL LAB HEMETOLOGY METHOD 03/14/2025 5:48 PM EDT [facility] Eosinophils Absolute 0.01 0.00 - 0.50 K/mcL LAB HEMETOLOGY METHOD 03/14/2025 5:48 PM EDT [facility] Basophils Absolute 0.01 0.00 - 0.20 K/mcL LAB HEMETOLOGY METHOD 03/14/2025 5:48 PM EDT [facility] Immature Granulocytes Absolute 0.03 0.00 - 0.03 K/mcL LAB HEMETOLOGY METHOD 03/14/2025 5:48 PM EDT [facility] Blood Venous blood specimen / Unknown Venipuncture / Unknown 03/14/2025 5:29 PM EDT 03/14/2025 5:33 PM EDT us Indra Tejeda MD LAB BLOOD ORDERABLES Final Resul t [facility] [address] [place] [address], * (ABNORMAL) Comprehensive metabolic panel (03/14/2025 5:29 PM EDT) Only the most recent of2 resultswithin the time period is included. Sodium 141 133 - 145 mmol/L LAB CHEMISTRY METHOD 03/14/2025 6:02 PM [facility] Potassium 3.8 3.5 - 5.5 mmol/L LAB CHEMISTRY METHOD 03/14/2025 6:02 PM [facility] Chloride 109 96 - 110 mmol/L LAB CHEMISTRY METHOD 03/14/2025 6:02 PM [facility] CO2 25 21 - 32 mmol/L LAB CHEMISTRY METHOD 03/14/2025 6:02 PM [facility] Anion Gap 7 3 - 11 LAB CHEMISTRY METHOD 03/14/2025 6:02 PM [facility] Glucose 120(H) 70 - 100 mg/dL LAB CHEMISTRY METHOD 03/14/2025 6:02 PM [facility] BUN 16 5 - 25 mg/dL LAB CHEMISTRY METHOD 03/14/2025 6:02 PM [facility] Creatinine 0.77 0.50 - 1.10 mg/dL LAB CHEMISTRY METHOD 03/14/2025 6:02 PM [facility] eGFR 95 >=60 mL/min/1. 73m2 LAB CHEMISTRY METHOD 03/14/2025 6:02 PM [facility] Comment:Calculation based on the Chronic Kidney Disease Epidemiology Collaboration (CKD-EPI) equation refit without adjustment for race. BUN/Creatinine Ratio 20.8 LAB CHEMISTRY METHOD 03/14/2025 6:02 PM [facility] Calcium 9.0 8.5 - 10.5 mg/dL LAB CHEMISTRY METHOD 03/14/2025 6:02 PM [facility] AST (SGOT) 23 10 - 42 unit/L LAB CHEMISTRY METHOD 03/14/2025 6:02 PM [facility] ALT (SGPT) 39 10 - 60 unit/L LAB CHEMISTRY METHOD 03/14/2025 6:02 PM EDT [facility] Alkaline Phosphatase 67 42 - 121 unit/L LAB CHEMISTRY METHOD 03/14/2025 6:02 PM EDT [facility] Total Protein 7.0 6.0 - 8.0 g/dL LAB CHEMISTRY METHOD 03/14/2025 6:02 PM EDT [facility] Albumin 3.8 3.2 - 5.0 g/dL LAB CHEMISTRY METHOD 03/14/2025 6:02 PM EDT [facility] Total Bilirubin 0.2 0.0 - 1.4 mg/dL LAB CHEMISTRY METHOD 03/14/2025 6:02 PM EDT [facility] Blood Venous blood specimen / Unknown Venipuncture / Unknown 03/14/2025 5:29 PM EDT 03/14/2025 5:33 PM EDT Indra Tejeda MD LAB BLOOD ORDERABLES Final Resul t [facility] [address] [place] [address], * COLONOSCOPY (03/02/2025 9:37 AM EDT) Anatomical Region Laterality Modality Endoscopy us Historical Provider GI~PROCEDURE ORDERABLES F inal Result * CT Abdomen Pelvis w Contrast (01/21/2025 1:08 PM EDT) Anatomical Region Laterality Modality Body Computed Tomogra phy 01/21/2025 1:57 PM EDT Impressions 01/21/2025 1:59 PM EDT Proctitis. No free air or fluid collection. -------- FINAL REPORT -------- Dictated By: Jennifer Ricketts Dictated Date: 01/21/2025 13:57 ET Assigned Physician: Jennifer Ricketts Reviewed and Electronically Signed By: Jennifer Ricketts Signed Date: 01/21/2025 13:59 ET Workstation ID: [id number] Transcribed By: Self Edit Transcribed Date: 01/21/2025 13:57 ET Narrative 01/21/2025 1:59 PM EDT PROCEDURE: CT ABDOMEN/PELVIS WITH CONTRAST INDICATION: Abdominal distension TECHNIQUE: CT of the abdomen and pelvis following the intravenous administration of 90cc Isovue 370. Multiplanar reformats. The examination was performed utilizing dose reduction techniques. Total DLP 1387 COMPARISON: 10/03/2023 FINDINGS: LOWER THORAX: Lung bases are clear. Status post cholecystectomy. No biliary dilatation. SPLEEN: No focal lesion. PANCREAS: No focal mass or ductal dilatation. ADRENALS: No nodules. KIDNEYS/URETERS: No hydronephrosis, stones, or solid mass. PELVIC ORGANS/BLADDER: Unremarkable. PERITONEUM / RETROPERITONEUM: No ascites or free air. No retroperitoneal lymphadenopathy. VESSELS: Scattered atherosclerotic calcifications throughout the aorta and its major branches. No aneurysm. GI TRACT: Normal caliber appendix. No bowel obstruction. There is inflammatory change about the rectum with adjacent stranding could be seen in setting of proctitis. BONES AND SOFT TISSUES: No acute osseous abnormality. Soft tissues are unremarkable. Procedure Note Jennifer Ricketts MD - 01/21/2025 PROCEDURE: CT ABDOMEN/PELVIS WITH CONTRAST INDICATION: Abdominal distension TECHNIQUE: CT of the abdomen and pelvis following the intravenousadministration of 90cc Isovue 370. Multiplanar reformats. The examinationwas performed utilizing dose reduction techniques. Total DLP 1387 COMPARISON: 10/03/2023 FINDINGS: LOWER THORAX: Lung bases are clear. Status post cholecystectomy. No biliary dilatation. SPLEEN: No focal lesion. PANCREAS: No focal mass or ductal dilatation. ADRENALS: No nodules. KIDNEYS/URETERS: No hydronephrosis, stones, or solid mass. PELVIC ORGANS/BLADDER: Unremarkable. PERITONEUM / RETROPERITONEUM: No ascites or free air. No retroperitoneallymphadenopathy. VESSELS: Scattered atherosclerotic calcifications throughout the aorta andits major branches. No aneurysm. GI TRACT: Normal caliber appendix. No bowel obstruction. There isinflammatory change about the rectum with adjacent stranding could be seenin setting of proctitis. BONES AND SOFT TISSUES: No acute osseous abnormality. Soft tissues areunremarkable. IMPRESSION: Proctitis. No free air or fluid collection. -------- FINAL REPORT -------- Dictated By: Jennifer Ricketts Dictated Date: 01/21/2025 13:57 ET Assigned Physician: Jennifer Ricketts Reviewed and Electronically Signed By: Jennifer Ricketts Signed Date: 01/21/2025 13:59 ET Workstation ID: [id number] Transcribed By: Self Edit Transcribed Date: 01/21/2025 13:57 ET Oliverio Bejarano MD IMG CT PROCEDURES Final Result * XR Abdomen 1 View (01/21/2025 9:45 AM EDT) Anatomical Region Laterality Modality Body Radiographic Naila ging 01/21/2025 9:49 AM EDT Impressions 01/21/2025 9:50 AM EDT No evidence of obstruction. -------- FINAL REPORT -------- Dictated By: Anirudh Adkins Dictated Date: 01/21/2025 09:49 ET Assigned Physician: Anirudh Adkins Reviewed and Electronically Signed By: Anirudh Adkins Signed Date: 01/21/2025 09:50 ET Workstation ID: [id number] Transcribed By: Self Edit Transcribed Date: 01/21/2025 09:49 ET Narrative 01/21/2025 9:50 AM EDT INDICATION: Abdominal pain FINDINGS: Single view of the abdomen was obtained. Compared to multiple prior studies most recent from June 24, 2024. There is a nonobstructive bowel gas pattern. There are no air-filled, dilated loops of small bowel. Air and stool noted throughout the colon. No abnormal calcifications are noted. Bony structures are normal for the patient's age. Surgical clips right upper quadrant from cholecystectomy. Small left pelvic phleboliths. Procedure Note Anirudh Adkins MD - 01/21/2025 INDICATION: Abdominal pain FINDINGS: Single view of the abdomen was obtained. Compared to multipleprior studies most recent from June 24, 2024. There is a nonobstructive bowel gas pattern. There are no air-filled,dilated loops of small bowel. Air and stool noted throughout the colon. No abnormal calcifications are noted. Bony structures are normal for the patient's age. Surgical clips right upper quadrant from cholecystectomy. Small left pelvic phleboliths. IMPRESSION: No evidence of obstruction. -------- FINAL REPORT -------- Dictated By: Anirudh Adkins Dictated Date: 01/21/2025 09:49 ET Assigned Physician: Anirudh Adkins Reviewed and Electronically Signed By: Anirudh Adkins Signed Date: 01/21/2025 09:50 ET Workstation ID: [id number] Transcribed By: Self Edit Transcribed Date: 01/21/2025 09:49 ET Indra Oakley MD IMG XR PROCEDURES Final Result * hCG, serum, qualitative (01/21/2025 9:28 AM EDT) Pathologist [facility] hCG Qual Negative Negative 01/21/2025 11:11 AM EDT [facility] Blood Venous blood specimen / Unknown Venipuncture / Unknown 01/21/2025 9:28 AM EDT 01/21/2025 9:34 AM EDT Oliverio Bejarano MD LAB BLOOD ORDERABLES Final Resu lt Performing Organization Address [facility]/ZIP Co de Phone Number [facility] [address] [place] [address], [place] [phone] * Lipase (01/21/2025 9:28 AM EDT) [facility] Lipase 39 13 - 75 unit/L LAB CHEMISTRY METHOD 01/21/2025 10:04 AM EDT [facility] Blood Venous blood specimen / Unknown Venipuncture / Unknown 01/21/2025 9:28 AM EDT 01/21/2025 9:34 AM EDT us Indra Oakley MD LAB BLOOD ORDERABLES Final Resu lt Performing Organization Address City/[facility]/ZIP Co de Phone Number [facility] [address] [place] [address], from Last 3 Months Insurance [employer] MEDICARE [facility]) Care Teams Photographer Helper Relationship Specialty Start Date End Date Ann-Marie Camacho MD [address] [place], [place] [address] [address] PCP - General Internal Medicine 11/16/24
--- OUTSIDE RECORDS SUMMARY | 2025-04-20 14:46 | XMS_ITS | Encounter Summary ---
Author Organization [employer] Address [address] [place] [address] [address] [place] [address] Care Team Providers Care Bilingual Research Interviewer Name Role Phone Ann-Marie Camacho MD Primary Care Provider [phone] Reason for Visit * Reason Comments Med Refill Encounter Details Date Type Department Care Team ([facility] st Contact Info) Description 03/17/2023 Refill [facility] [address] [place], [place] [phone] Ann-Marie Camacho MD [address] [place] [address] Social History Tobacco Use Types Packs/Day Years [...] documented as of this encounter Care Teams Bilingual Research Interviewer Relationship Specialty Start Date End Date Ann-Marie Camacho MD [address] [place] [address] PCP - General Internal Medicine 02/23/21 documented as of this encounter
--- OUTSIDE RECORDS SUMMARY | 2025-04-20 14:46 | XMS_ITS | Encounter Summary ---
Author Organization [employer] Address [address] 7t [place] [address] Care Team Providers Care Dairy Science Teacher Name Role Phone Ann-Marie Camacho MD Primary Care Provider [phone] Encounter Details Date Type Department Care Team ([facility] st Contact Info) Description 12/22/2024 Orders Only [facility] MED & PEDS [address] [place] [address] Laura Wan Social History Tobacco Use Types [...] Provider LAB CYTOLOGY ORDERABLES F inal Result [facility] [address] [place] [phone] documented in this encounter Visit Diagnoses Not on filedocumented in this encounter Additional Health Concerns Assessment Noted Time PHQ-9 Depression Total Score: 0 11/27/19 25 11:30 AM EDT documented as of this encounter Care Teams Dairy Science Teacher Relationship Specialty Start Date End Date Ann-Marie Camacho MD [address] [place] [address] PCP - General Internal Medicine 02/23/21 documented as of this encounter
--- OUTSIDE RECORDS SUMMARY | 2025-04-20 14:46 | XMS_ITS | Clinical Summary ---
Author Organization [facility] Facility Address [address] [address] Care Team Providers Care Insulation Worker Name Role Phone Ann-Marie Camacho MD Primary Care Provider [phone] Allergies Active Allergy Reactions Criticality Noted Date Comments Carbamazepine 01/02/2022 Cariprazine 01/02/2022 Lamotrigine Rash Low 01/02/2022 [place] Other (see comments) 01/02/2022 Penicillins Shortness of [...] Colorectal Cancer Screening: Sigmoidoscopy 2024 Influenza Vaccine (#1) 2025 Insurance Generic Commercial [facility] Medicare Generic Commercial Care Teams Insulation Worker Relationship Specialty Start Date End Date Ann-Marie Camacoh MD [address] [place] [address] PCP - General Internal Medicine 07/14/21
--- OUTSIDE RECORDS SUMMARY | 2025-04-20 14:46 | XMS_ITS | Encounter Summary ---
Author Organization [employer] Address [address] [place] [address] 7 [place] [address] Care Team Providers Care Zinc Skimmer Name Role Phone Ann-Marie Camacho MD Primary Care Provider [phone] Reason for Visit * Reason Onset Date Comments Error 10/22/2023 Encounter Details Date Type Department Care Team (Late st Contact Info) Description 10/22/2023 Telephone [facility] MEDICINE [address] [place] [address] Ann-Marie Camacho MD [address] [place], [place] [phone] Error Social History Tobacco Use Types Packs/Day [...] documented as of this encounter Care Teams Zinc Skimmer Relationship Specialty Start Date End Date Ann-Marie Camacho MD [address] [place] [address] PCP - General Internal Medicine 02/23/21 documented as of this encounter
--- OUTSIDE RECORDS SUMMARY | 2025-04-20 14:46 | XMS_ITS | Encounter Summary ---
Author Organization [employer] Address [address] [facility] 7t [place] [address] Care Team Providers Care Manufacturing Inspector Name Role Phone An-nMarie Camacho MD Primary Care Provider [phone] Reason for Visit * Reason Comments Med Refill Encounter Details Date Type Department Care Team ([facility] st Contact Info) Description 12/17/2022 Refill [facility] CH[facility] MED & PEDS [address] [place], [place] [phone] Ann-Marie Camacho MD [address] [place] [address] Social History Tobacco Use Types Packs/Day Years [...] documented as of this encounter Care Teams Manufacturing Inspector Relationship Specialty Start Date End Date Ann-Marie Camacho MD [address] [place] [address] PCP - General Internal Medicine 02/23/21 documented as of this encounter
--- OUTSIDE RECORDS SUMMARY | 2025-04-20 14:46 | XMS_ITS | Encounter Summary ---
Author Organization [employer] Address [address] [facility] 7t [place] [address] Care Team Providers Care Purchasing/Receiving Name Role Phone Ann-Marie Camacho MD Primary Care Provider [phone] Encounter Details Date Type Department Care Team (Latest Contact Info) Description 12/22/2024 Orders Only [facility] CHC MED & PEDS [address] [place], [place] [phone] Ann-Marie Camacho MD [address] [place], [place] [phone] Transaminitis (Primary Dx); Pure hypercholesterolemia Social History Tobacco Use Types Packs/Day Years [...] as of this encounter Plan of Treatment Scheduled Orders Name Type Priority Associated Diagnoses Orde r Schedule Hepatic Function Panel Lab Routine Transaminitis Pure hypercholesterolemia Expected: 12/22/2024 (Approximate), Expires: 12/22/2025 Smooth Muscle Antibody with Reflex to Titer Lab Routine Transaminitis Expected: 12/22/2024 (Approximate), Expires: 12/22/2025 Immunoglobulins Panel, Serum Lab Routine Transaminitis Expected: 12/22/2024 (Approximate), Expires: 12/22/2025 Ferritin Lab Routine Transaminitis Expected: 12/22/2024, Expires: 12/22/2025 IVANA Screen,IFA, with Reflex to Titer and Pattern Lab Routine Transaminitis Expected: 12/22/2024 (Approximate), Expires: 12/22/2025 Lipid Panel, Standard Lab Routine Transaminitis Expected: 12/22/2024 (Approximate), Expires: 12/22/2025 Iron And Total Iron Binding Capacity Lab Routine Transaminitis Expected: 12/22/2024, Expires: 12/22/2025 documented as of this encounter Visit Diagnoses Diagnosis Transaminitis- Primary Nonspecific elevation of levels of transaminase or lactic acid dehydrogenase (LDH) Pure hypercholesterolemia documented in this encounter Additional Health Concerns Assessment Noted Time PHQ-9 Depression Total Score: 0 11/27/19 25 11:30 AM EDT documented as of this encounter Care Teams Purchasing/Receiving Relationship Specialty Start Date End Date Ann-Marie Camacho MD [address] [place] [address] [place] [address] PCP - General Internal Medicine 02/23/21 documented as of this encounter
--- OUTSIDE RECORDS SUMMARY | 2025-04-20 14:46 | XMS_ITS | Encounter Summary ---
Author Organization [employer] Address [address] [facility] [address] [place] [address] Care Team Providers Care Director Digital Communications Name Role Phone Ann-Marie Camacho MD Primary Care Provider [phone] Reason for Visit * Reason Onset Date Comments Results 01/15/2024 FYI 01/15/2024 Encounter Details Date Type Department Care Team ([facility] st Contact Info) Description 01/15/2024 Telephone [facility] MEDICINE [address] [place] [address] Ann-Marie Camacho MD [address] [place], [place] [phone] Results; Social History Tobacco Use Types Packs/Day Years [...] as of this encounter Care Teams Director Digital Communications Relationship Specialty Start Date End Date Ann-Marie Camacho MD [address] [place] [address] PCP - General Internal Medicine 02/23/21 documented as of this encounter
--- OUTSIDE RECORDS SUMMARY | 2025-04-20 14:46 | XMS_ITS | Encounter Summary ---
Author Organization [employer] Address [address] [facility] 7t [place] [address] Care Team Providers Care Babbitt Spinner Name Role Phone Ann-Marie Camacho MD Primary Care Provider [phone] Encounter Details Date Type Department Care Team (Latest Contact Info) Description 07/13/2024 Orders Only [facility] CH[facility] MED & PEDS [address] [place], [place] [phone] Ann-Marie Camacho MD [address] [place], [place] [phone] Pure hypercholesterolemia (Primary Dx) Social History Tobacco [...] documented as of this encounter Care Teams Babbitt Spinner Relationship Specialty Start Date End Date Ann-Marie Camacho MD [address] [place] [address] PCP - General Internal Medicine 02/23/21 documented as of this encounter
--- OUTSIDE RECORDS SUMMARY | 2025-04-20 14:46 | XMS_ITS | Encounter Summary ---
Author Organization [employer] Address [address] [facility] 7t [place] [address] Care Team Providers Care Aeronautical Engineering Professor Name Role Phone Ann-Marie Camacho MD Primary Care Provider [phone] Encounter Details Date Type Department Care Team ([facility] st Contact Info) Description 12/05/2022 Abstract [facility] MED & PEDS [address] [place], [place] [phone] Ann-Marie Camacho MD [address] [place] [address] Social History Tobacco Use Types Packs/Day Years [...] Procedure Name Priority Date/Time Associated Diagnosis Comments HM PAP/HPV Routine 11/16/2022 documented in this encounter Results * Pap Smear (11/16/2022) Pap smear PERFORMED us Historical Provider HEALTH MAINTENANCE Final Result documented in this encounter Visit Diagnoses Not on filedocumented in this encounter Additional Health Concerns Assessment Noted Time PHQ-9 Depression Total Score: 6 09/03/19 23 1:13 PM EST documented as of this encounter Care Teams Aeronautical Engineering Professor Relationship Specialty Start Date End Date Ann-Marie Camacho MD [address] [place] [address] PCP - General Internal Medicine 02/23/21 documented as of this encounter
--- OUTSIDE RECORDS SUMMARY | 2025-04-20 14:46 | XMS_ITS | Encounter Summary ---
Author Organization [employer] Address [address] [facility] 7t [place] [address] Care Team Providers Care Business Process Coordinator Name Role Phone Ann-Marie Camacho MD Primary Care Provider [phone] Encounter Details Date Type Department Care Team ([facility] st Contact Info) Description 11/26/2024 Orders Only [facility] CHC MED & PEDS [address] [place], [place] [phone] Ann-Marie Camacho MD [address] [place], [place] [phone] Type 2 diabetes mellitus without complication, without long-term current use of insulin (CMS/[facility]) (Primary Dx) Social History Tobacco Use Types [...] AM EDT documented as of this encounter Functional Status * Over the past 2 weeks, how often have you been bothered by any of the following problems? Question Answer Date of Assessment Author Patient Health Questionnaire-2 Score 0 10/2024 11:30 AM EDT Ivet Rosa [place] * Little interest or pleasure in doing things Answer Date of Assessment Author Not at all 11/26/2024 11:30 AM EDT Inocente Rosa [place] * Feeling down, depressed, or hopeless Answer Date of Assessment Author Not at all 11/26/2024 11:30 AM EDT Inocente Rosa [place] * Trouble falling or staying asleep, or sleeping too much Answer Date of Assessment Author Not at all 11/26/2024 11:30 AM EDT Inocente Rosa [place] * Feeling tired or having little energy Answer Date of Assessment Author Not at all 11/26/2024 11:30 AM EDT Inocente Rosa [place] * Poor appetite or overeating Answer Date of Assessment Author Not at all 11/26/2024 11:30 AM EDT Inocente Rosa [place] * Feeling bad about yourself - or that you are a failure or have let yourself or your family down Answer Date of Assessment Author Not at all 11/26/2024 11:30 AM [place] Inocente Rosa [place] * Trouble concentrating on things, such as reading the newspaper or watching television Answer Date of Assessment Author Not at all 11/26/2024 11:30 AM EDT Inocente Rosa [place] * Moving or speaking so slowly that other people could have noticed? Or the opposite - being so fidgety or restless that you have been moving around a lot more than usual. Answer Date of Assessment Author Not at all 11/26/2024 11:30 AM EDT Inocente Rosa [place] * Thoughts that you would be better off or hurting yourself in some way Answer Date of Assessment Author Not at all 11/26/2024 11:30 AM EDT Inocente Rosa [place] * Patient Health Questionnaire-9 Score Answer Date of Assessment Author 0 11/26/2024 11:30 AM EDT Inocente Rosa [place] documented as of this encounter Plan of Treatment Not on file documented as of this encounter Visit Diagnoses Diagnosis Type 2 diabetes mellitus without complication, without long-term current use of insulin ([facility])- Primary documented in this encounter Additional Health Concerns Assessment Noted Time PHQ-9 Depression Total Score: 0 11/27/19 25 11:30 AM EDT documented as of this encounter Care Teams Business Process Coordinator Relationship Specialty Start Date End Date Ann-Marie Camacho MD [address] [place] [address] [place] [address] PCP - General Internal Medicine 02/23/21 documented as of this encounter
--- OUTSIDE RECORDS SUMMARY | 2025-04-20 14:46 | XMS_ITS | Encounter Summary ---
Author Organization [employer] Address [address] [facility] 7t [place] [address] Care Team Providers Care Grounds Maintenance Supervisor Name Role Phone Ann-Marie Camacho MD Primary Care Provider [phone] Encounter Details Date Type Department Care Team (Late st Contact Info) Description 06/25/2024 Orders Only [facility] [address] [place] [address] ProviderRoseanna MD Social History Tobacco Use Types [...] documented as of this encounter Care Teams Grounds Maintenance Supervisor Relationship Specialty Start Date End Date Ann-Marie Camacho MD [address] [place] [address] PCP - General Internal Medicine 02/23/21 documented as of this encounter
--- OUTSIDE RECORDS SUMMARY | 2025-04-20 14:46 | XMS_ITS | Encounter Summary ---
Author Organization [employer] Address [address] [facility] 7t [place] [address] Care Team Providers Care Operator Bearer Systems Name Role Phone Ann-Marie Camacho MD Primary Care Provider [phone] Encounter Details Date Type Department Care Team (Late st Contact Info) Description 01/21/2025 Orders Only [facility] [address] [place] [address] ProviderRoseanna MD Social History Tobacco Use Types [...] Date/Time Associated Diagnosis Comments CT ABDOMEN PELVIS W CONTRAST Routine 01/21/2025 2:26 PM EDT documented in this encounter Results * CT Abdomen Pelvis w/ Contrast (01/21/2025 2:26 PM EDT) Anatomical Region Laterality Modality Body, Pelvis, Abdomen Computed T omography Historical Provider MD ELIAS CT PROCEDURES Final R esult documented in this encounter Visit Diagnoses Not on filedocumented in this encounter Additional Health Concerns Assessment Noted Time PHQ-9 Depression Total Score: 0 11/27/19 25 11:30 AM EDT documented as of this encounter Care Teams Operator Bearer Systems Relationship Specialty Start Date End Date Ann-Marie Camacho MD [address] [place] [address] PCP - General Internal Medicine 02/23/21 documented as of this encounter
--- OUTSIDE RECORDS SUMMARY | 2025-04-20 14:46 | XMS_ITS | Encounter Summary ---
Author Organization [employer] Address [address] [facility] 7 [place] [address] Care Team Providers Care Recreational Facilities Motel Manager Name Role Phone Ann-Marie Camacho MD Primary Care Provider [phone] Reason for Visit * Reason Comments Med Refill Encounter Details Date Type Department Care Team ([facility] st Contact Info) Description 10/23/2022 Refill [facility] MEDICINE [address] [place] [address] Ann-Marie Camacho MD [address] [place], [place] [phone] Type 2 diabetes mellitus without complication, without [...] documented as of this encounter Care Teams Recreational Facilities Motel Manager Relationship Specialty Start Date End Date Ann-Marie Camacho MD [address] [place] [address] PCP - General Internal Medicine 02/23/21 documented as of this encounter
--- OUTSIDE RECORDS SUMMARY | 2025-04-20 14:46 | XMS_ITS | Clinical Summary ---
Author Organization [employer] Address [address] [facility] [address] [place] [address] Care Team Providers Care Autopsy Pathologist Name Role Phone Ann-Marie Camacho MD Primary Care Provider [phone]- [phone] Allergies Active Allergy Reactions Criticality Noted Date Comments Wound Dressings 08/15/2022 Other reaction(s): adhesive on patches-skin irritations Carbamazepine 01/02/2022 Other Reaction(s): MIGRAINES Cariprazine 01/02/2022 Other Reaction(s): LEG CRAMPS Clindamycin Other 11/19/2024 Reports when taking feels like throat enriquez Cynara Scolymus (Artichoke) Rash Low 08/15/2022 artichoke Dicyclomine Hallucinations 09/16/2024 Fentanyl Rash Low 03/20/2023 Lamotrigine Rash Low 01/02/2022 Hardy Other High 01/02/2022 Other reaction(s): bad reaction Other Reaction(s): tremor and falls Penicillins Shortness of breath,Anaphylaxis High 02/23/2021 Other reaction(s): can't breathe, Difficulty breathing, Vomiting Wound Dressing Adhesive Rash Low 03/20/2023 Medications * This document contains information received from the source organization and may not represent a complete record from that organization. butalbital-aceta minophen-caffein e (Fioricet) 50-300-40 MG capsule TAKE 1 CAPSULE BY MOUTH EVERY 6 HOURS NEEDED FOR HEADACHE 2 Active clonazePAM (KlonoPIN) 1 MG tablet TAKE 1 TABLET BY MOUTH TWICE DAILY NEEDED. MAY USE 1 ADDITIONAL FOR ANXIETY. 30 DAY SUPPLY 2 Active glucose 4 g chewable tablet 2 Active Linzess 290 MCG capsule Take 290 mcg by mouth in the morning. 2 Active Myrbetriq 50 MG 24 hr tablet Take 50 mg by mouth in the morning. 2 Active ondansetron (Zofran) 4 MG tablet Take 1 tablet by mouth every 8 (eight) hours. 2 Active pantoprazole (ProtoNix) 40 MG EC tablet 2 Active tiZANidine (Zanaflex) 4 MG tabletIndication s:Acute pain of right shoulder Take 1 tablet (4 mg) by mouth every 6 (six) hours if needed for muscle spasms for up to 10 days. 30 tablet 3 Active baclofen (Lioresal) 10 MG tabletIndication s:Muscle spasm Take 1 tablet (10 mg) by mouth 3 times daily for 10 days. 30 tablet 3 Active lisinopril 40 MG tablet TAKE 1 TABLET BY MOUTH EVERY DAY 30 tablet 11 4 Active albuterol 108 (90 Base) MCG/ACT inhalerIndicatio ns:Bronchitis Inhale 2 puffs every 6 (six) hours [...] 1 4 Active fluconazole (Diflucan) 150 MG tabletIndication s:PV (pityriasis versicolor) 2 tabs once a week x 2 weeks. 4 tablet 4 Active metoprolol succinate XL (Toprol XL) 100 MG 24 hr tabletIndication s:Hypertension, unspecified type Take 1 tablet (100 mg) by mouth Once per day. Do not crush or chew. 30 tablet 11 4 11/01/20 25 Active metFORMIN (Glucophage) 1000 MG tabletIndication s:Type 2 diabetes mellitus without complication, without long-term current use of insulin ([facility]) TAKE 1 TABLET(1000 MG) BY MOUTH EVERY 12 HOURS 180 tablet 1 5 Active acetaminophen (Tylenol) 500 MG tablet Take 1 tablet (500 mg) by mouth every 6 (six) hours if needed for mild pain for up to 20 doses. 20 tablet 5 Active azithromycin (Zithromax) 250 MG tablet Take (2) tabs 1st day; take (1) tab next 4 days. 6 tablet 5 Active cloZAPine (Clozaril) 200 MG tablet 5 Active chlorhexidine (Peridex) 0.12 % solution Swish 15 mL morning and night for 1 minute. Spit, do not swallow. Do not eat or drink for 30 minutes following use. 473 mL 5 Active acetaminophen (Tylenol) 500 MG tablet Take 1 tablet (500 mg) by mouth every 6 (six) hours if needed for moderate pain or mild pain for up to 15 doses. 15 tablet 5 Active Blood Glucose Monitoring Suppl (FreeStyle [place] Lite) w/Device kitIndications:T ype 2 diabetes mellitus without complication, without long-term current use of insulin ([facility]) Use to test blood sugar 1 times daily 1 kit 5 Active Alcohol Swabs 70 % padsIndications: Type 2 diabetes mellitus without complication, without long-term current use of insulin ([facility]) Use to test blood sugar 1 times daily 100 each 11 5 Active FREESTYLE LITE test stripIndications :Type 2 diabetes mellitus without complication, without long-term current use of insulin ([facility]) Use to test blood sugar 1 times daily 100 each 12 5 11/27/19 26 Active Lancets miscIndications: Type 2 diabetes mellitus without complication, without long-term current use of insulin ([facility]) Use to test blood sugar 1 times daily 100 each 5 Active Blood Glucose Monitoring Suppl (FreeStyle [place] Lite) w/Device kitIndications:T ype 2 diabetes mellitus without complication, without long-term current use of insulin ([facility]) Use to test blood sugar 1 times daily 1 kit 5 Active empagliflozin (Jardiance) 10 MGIndications:Ty pe 2 diabetes mellitus without complication, without long-term current use of insulin ([facility]) Take 1 tablet (10 mg) by mouth Once per day. 30 tablet 11 5 11/27/19 26 Active glucose blood test stripIndications :Type 2 diabetes mellitus without complication, without long-term current use of insulin ([facility]) To use once a day 100 each 12 5 11/27/19 26 Active Lancet Devices (Autolet) lancing deviceIndication s:Type 2 diabetes mellitus without complication, without long-term current use of insulin ([facility]) 1 each by Other route Once per day. 1 each 5 11/27/19 Active Blood Glucose Monitoring Suppl (GetOne Rewardsuch Verio) w/Device kitIndications:T ype 2 diabetes mellitus without complication, without long-term current use of insulin ([facility]) 1 Units Once per day. 1 kit 5 Active lisinopril 40 MG tablet TAKE 1 TABLET BY MOUTH EVERY DAY 30 tablet 11 5 Active Diclofenac Sodium 1 % gelIndications:M uscle ache To apply to the affected area 3 times a day 100 g 5 Active Active Problems Problem Noted Date Diagnosed [...] to a therapist and psychiatrist thru [facility]. At this time Nani Sears meets criteria [...] Encounters Date Type Department Care Team Description 04/20/2025 Orders Only GENERIC EXTERNAL DATA DEPARTMENT Provider, Generic External Data 03/24/2025 Telephone [facility] [address] [place] [address] Ann-Marie Camacho MD No Show 03/23/2025 Telephone [facility] [address] [place] [address] Ann-Marie Camacho MD Chart Prep 03/17/2025 Patient Outreach [facility] [address] [place] [address] Ann-Marie Camacho MD Pre-visit Planning (Pre visit planning LVM ) 01/27/2025 Telephone [facility] [address] [place] [address] Ann-Marie Camacho MD ER Follow-up 01/21/2025 Orders Only [facility] [address] [place] [address] Provider, MD Roseanna from Last 3 Months Immunizations Immunization Administration Dates Next Due Influenza, seasonal, injectable, preservative fr ee 06/26/2024 Moderna Covid-19 Vaccine 12+ 01/12/2021,12/15/19 21 PPD Test 04/09/2003 Pneumococcal Conjugate PCV 20 06/26/2024 Tdap 05/10/2020 [...] 78 12/22/2024 10:26 AM EDT Temperature 36.6 C (97.8 F) 12/22/2024 10:26 AM EDT Respiratory Rate 20 12/22/2024 10:26 AM EDT Oxygen Saturation 97% 12/22/2024 10:26 AM EDT Inhaled Oxygen Concentration - - Weight 134 kg (296 lb) 12/22/2024 10:26 AM EDT Height 170.2 cm (5' 7 ) 12/22/2024 10:26 AM EDT Body Mass Index 46.36 12/22/2024 10:26 AM EDT Plan of Treatment Health Maintenance Due Date Last Done Comments CT Colonography 1975 Dental Prophylaxis 1975 FIT DNA/Cologuard 1975 FIT 1975 FOBT 1975 HIV Screening 1975 Sigmoidoscopy 1975 Family Planning (PISQ) 1990 Diabetes: Urine Protein Screening 1994 Hepatitis B Vaccines (1 of 3 - 19+ 3-dose series) 1994 Dental Oral Exam 04/27/2022 10/24/2021 Diabetes: Foot Exam 05/01/2023 COVID-19 Vaccine (2023- season) 2024 01/12/2021, 12/14/2020 Dental X-Ray: Full Mouth 10/25/2024 10/24/2021 Diabetes: Hemoglobin A1C 02/25/2025 04/2 025, 08/31/2024, 05/12/2024, Additional history exists Influenza Vaccine (#1) 2025 06/26/2024 Zoster Vaccines (1 of 2) 2025 Alcohol/Substance Use Screening 11/05/2025 11/05/2024 Disability Screening 11/05/2025 11/05/2024 SDOH Screening 11/05/2025 11/05/2024 Dental X-Ray: Bitewings 11/17/2025 11/17/19, 10/06/2024, 10/24/2021 Depression Screening 11/26/2025 11/26/2024, 11/27/19 Lipid Panel 12/22/2025 12/22/2024, 06/26, 01/12/2022 Tobacco Screening 12/22/2025 12/22/2024 Mammogram 07/03/2026 07/03/2024 Eye Exam 12/22/2026 12/22/2024, 11/25, 12/22/2024, Additional history exists Cervical Cancer Screening 07/14/2029 HPV/Cotest 07/14/2029 07/14/2024 Pap Smear 07/14/2029 07/14/2024, 11/16/2022 Colonoscopy 09/28/2029 09/28/2019 Colorectal Cancer Screening 09/28/2029 DTaP/Tdap/Td Vaccines (2 - Td or Tdap) 05/10/2030 05/10/2020 RSV Patients and Patients Aged 60 years or older (1 - 1-dose 75+ series) 2050 Pneumococcal Vaccine: Pediatrics (0 to 5 Years) and At-Risk Patients (6 to 49) Years Completed 06/26/2024 Hepatitis C Screening Completed 07/13/2024 [...] Procedure Name Priority Date/Time Associated Diagnosis Comments DRUG MONITOR, PANEL 1, SCREEN, URINE Routine 04/20/2025 1:20 PM EDT ETHANOL Routine 04/20/2025 1:11 PM EDT COMPREHENSIVE METABOLIC PANEL Routine 04/20/2025 1:11 PM EDT HCG, TOTAL, QN Routine 04/20/2025 1:11 PM EDT CBC WITH AUTO DIFFERENTIAL Routine 04/20/2025 1:[address] ABDOMEN PELVIS W CONTRAST Routine 01/21/2025 2:26 PM EDT LIPID PANEL, STANDARD Routine 12/22/2024 11:04 AM EDT Pure hypercholesterolemia POCT GLYCATED HEMOGLOBIN, TOTAL Routine 11/26/2024 12:00 PM EDT Type 2 diabetes mellitus without complication, without long-term current use of insulin (CMS/HCC) BITEWING - SINGLE RADIOGRAPHIC IMAGE Routine 11/16/2024 2:00 PM EDT PAP SMEAR Routine 07/14/2024 10:44 AM EST [...] Recently Relevant to Health Maintenance Results * (ABNORMAL) Drug Monitoring, Panel 1, Screen, Urine (04/20/2025 1:20 PM EDT) Pathologist [facility] Opiate Screen Urine Not Detected Not Detect [facility] Comment:Opiate cut-off is 30 0 ng/mL.Positive results are unconfirmed and should not be used fornon-medical purposes. Barbiturates, Urine Not Detected Not Detect [facility] Comment:Barbiturate cut-off is 200 ng/mL.Positive results are unconfirmed and should not be used fornon-medical purposes. Phencyclidine Screen Urine Not Detected Not Detect [facility] Comment:Phencyclidine cut-of f is 25 ng/mL.Positive results are unconfirmed and should not be used fornon-medical purposes. Amphetamine Screen Urine Not Detected Not Detect [facility] Comment:Amphetamine cut-off is 1000 ng/mL.Positive results are unconfirmed and should not be used fornon-medical purposes. Benzodiazepines Screen Urine Not Detected Not Detect [facility] Comment:Benzodiazepine cut-o ff is 200 ng/mL.Positive results are unconfirmed and should not be used fornon-medical purposes. Cocaine Screen Urine Not Detected Not Detect [facility] Comment:Cocaine cut-off is 3 00 ng/mL.Positive results are unconfirmed and should not be used fornon-medical purposes. Cannabinoid Screen Urine POSITIVE(A) Not Detect [facility] Comment:Cannabinoid cut-off is 50 ng/mL.Positive results are unconfirmed and should not be used fornon-medical purposes. Methadone Screen, Urine Not Detected Not Detect ng/mL [facility] Comment:Methadone cut-off is 300 ng/mL.Positive results are unconfirmed and should not be used fornon-medical purposes. FENTANYL URINE Not Detected Not Detect [facility] Comment:Fentanyl cut-off is 1 ng/mL.Positive results are unconfirmed and should not be used fornon-medical purposes. Oxycodone Urine Screen Not Detected Not Detect ng/mL [facility] Comment:Oxycodone cut-off is 100 ng/mL.Positive results are unconfirmed and should not be used fornon-medical purposes. Buprenorphine Screen Not Detected Not Detect ng/mL [facility] Comment:Buprenorphine cut-of f is 5 ng/mL.Positive results are unconfirmed and should not be used fornon-medical purposes. 04/20/2025 1:20 PM EDT 04/20/2025 1:26 PM EDT Generic External Data Provider LAB URINE ORDERAB LES Final Result Performing Organization Address [facility] de Phone Number [facility] [address] [place] [phone] * Ethanol (04/20/2025 1:11 PM EDT) [facility] ETHANOL (MG/DL) IN SER/PLAS <10 mg/dL [facility] Comment:Serum/plasma ethanol results are to be used formedical/treatment purposes only. 04/20/2025 1:11 PM EDT 04/20/2025 1:13 PM EDT Generic External Data Provider LAB BLOOD ORDERAB LES Final Result Performing Organization Address [facility] de Phone Number [facility] [address] [place] [phone] * (ABNORMAL) CBC auto differential (04/20/2025 1:11 PM EDT) [facility] White Blood Count 10.5 4.8 - 10.8 X10*3/uL [facility] Red Blood Count 4.17(L) 4.20 - 5.50 X10*6/uL [facility] Hemoglobin 12.6 12.0 - 16.0 g/dl [facility] Hematocrit 38.0 37.0 - 47.0 % [facility] Mean Corpuscular Volume 91.1 80.0 - 98.0 fL [facility] Mean Corpuscular Hemoglobin 30.2 27.0 - 33.0 pg [facility] Mean Corpuscular HGB Conc 33.2 31.0 - 35.0 g/dl [facility] Red Cell Distribution Width 13.1 11.0 - 16.0 % [facility] Platelet Count 223 160 - 400 X10*3/uL [facility] Mean Platelet Volume 9.3(L) 9.4 - 12.3 fL [facility] Neutrophils Percent Auto 73.4(H) 45 - 73 % [facility] Imm Gran Pct Auto 0.5(H) 0.0 - 0.4 % [facility] Lymphocytes Percent Auto 22.2 20 - 40 % [facility] Monocytes Percent Auto 3.8 2 - 11 % [facility] Eosinophils Percent Auto 0.0 0 - 4 % [facility] Basophils Percent Auto 0.1 0 - 2 % [facility] NRBC Pct Auto 0.0 0.0 - 0.2 /100WBC [facility] Neutrophils Absolute Auto 7.7 2.0 - 8.3 x10*3/uL [facility] Imm Gran Abs Auto 0.05(H) 0.00 - 0.03 X10*3/uL [facility] Lymphocytes Absolute Auto 2.3 1.2 - 4.9 X10*3/uL [facility] Monocytes Absolute Auto 0.4 0.1 - 1.2 X10*3/uL [facility] Eosinophils Absolute Auto 0.0 0.0 - 0.4 X10*3/uL [facility] Basophils Absolute Auto 0.0 0.0 - 0.2 X10*3/uL [facility] NRBC Abs Auto 0.000 0.0 - 0.012 X10*3/uL [facility] 04/20/2025 1:11 PM EDT 04/20/2025 1:13 PM EDT us Generic External Data Provider LAB BLOOD ORDERAB LES Final Result [facility] [address] [place], [place] [phone] * hCG, Total, Quantitative (04/20/2025 1:11 PM EDT) HCG Quantitative 5 mIU/mL [facility] Comment:Weeks post LMP Appro ximate hCG(Last Menstrual Period) Range (mIU/ml)3 - 4 weeks 9 - 1304 - 5 weeks 75 - 2,6005 - 6 weeks 850 - 20,8006 - 7 weeks 4000 - 100,2007 - 12 weeks 11,500 - 289,13715 - 16 weeks 18,300 - 137,68719 - 29 weeks (2nd trimester) 1,400 - 53,93460 - 41 weeks (3rd trimester) 940 - 60,000The [place] B- hCG assay is used for the early detection ofpregnancy; it cannot be used to diagnose any conditionunrelated to . If a B-hCG level is not supportedby the clinical evidence, results should be confirmed by analternative method (qualitative urine hCG, for example). 04/20/2025 1:11 PM EDT 04/20/2025 1:13 PM EDT us Generic External Data Provider LAB BLOOD ORDERAB LES Final Result [facility] [address] [place] [phone] * (ABNORMAL) Comprehensive Metabolic Panel (04/20/2025 1:11 PM EDT) Sodium 141 135 - 145 mmol/L [facility] Potassium 3.8 3.3 - 5.1 mmol/L [facility] Chloride 106 96 - 108 mmol/L [facility] Carbon Dioxide 23 22 - 29 mmol/L [facility] Anion Gap 16 12 - 20 [facility] Urea Nitrogen (BUN) 13 9 - 16 mg/dL [facility] Creatinine, Serum 0.70 0.5 - 1.4 mg/dL [facility] Creatinine Clr Calc Pharmacy 137.7 [facility] Comment:Provided height and weight: 170.18 cm,131.995 kg.eGFR (calculated from the MDRD study equation) and eCrCl(calculated from the Cockcroft-Gault equation) are based ondifferent parameters and may not yield comparable results.If eCrCl result is absurd, please check patient'sheight/weight. Estimated Glomerular Filt Rate >60 [facility] Comment:Chronic Kidney Disea se: Estimated GFR < 60 mL/min/1.45g7Zyhhct Kidney Disease: Estimated GFR < 15 mL/min/1.73m2 Glucose 170(H) 60 - 115 mg/dL [facility] Calcium 9.2 8.4 - 10.2 mg/dL [facility] Bilirubin, Total 0.2 0.0 - 1.0 mg/dL [facility] Aspartate Amino Transferase 21 5 - 31 U/L [facility] Alanine Aminotransferase 34(H) 0 - 31 U/L [facility] Total Protein 6.7 6.5 - 8.0 g/dL [facility] Albumin Level 4.3 3.5 - 5.0 g/dL [facility] Alkaline Phosphatase 63 39 - 117 U/L [facility] 04/20/2025 1:11 PM EDT 04/20/2025 1:13 PM EDT us Generic External Data Provider LAB BLOOD ORDERAB LES Final Result [facility] [address] [place] [phone] * CT Abdomen Pelvis w/ Contrast (01/21/2025 2:26 PM EDT) Anatomical Region Laterality Modality Body, Pelvis, Abdomen Computed T omography Historical Provider MD ELIAS CT PROCEDURES Final R esult * (ABNORMAL) Lipid Panel, Standard (12/22/2024 11:04 AM EDT) Triglycerides 436(H) <150 mg/dL [facility] Comment:Desirable Triglyceri de: less than 150 mg/dLBorderline High Triglyceride 150-199 mg/dLHigh Triglyceride: 200-499 mg/dLVery High Triglyceride: greater than or equal to 5OO mg/dL Cholesterol 258(H) <200 mg/dL [facility] Comment:Desirable Cholestero l: less than 200 mg/dLBorderline High Cholesterol: 200-239 mg/dLHigh Cholesterol: greater than 239 mg/dL LDL Cholesterol Calculated TNP <100 mg/dL [facility] Comment:Unable to calculate the LDL. The formula of Friedwald,Kothari, and Audrey is only valid if the triglycerides areless than 400 mg/dl. HDL Cholesterol 34(L) >40 mg/dL [facility] Comment:Desirable HDL: great er than 40 mg/dL Note: This HDL assay may give artificially low results in patients with liver disease. Blood Venous blood specimen / Unknown 12/22/2024 11:04 AM EDT 12/22/2024 2:20 PM EDT us Ann-Marie Camacho MD LAB BLOOD ORDERABLES Final Result [facility] [address] [place] [phone] * (ABNORMAL) POCT HGB A1C (11/26/2024 12:00 PM EDT) Pathologist [facility] Hemoglobin A1C 7.0(A) 4.0 - 6.0 % QC Media Lot # [id number] Lot# Expiration Date [id number] Blood 11/26/2024 12:0 0 PM EDT Ann-Marie Camacho MD POINT OF CARE TEST ENTER/ED IT ORDERABLES Final Result * Pap Smear (07/14/2024 10:44 AM EST) Swab 07/14/2024 10:4 4 AM EST 07/15/2024 9:15 AM EST Narrative [facility] - 07/17/2024 9:28 AM EST ----- ------- Name: Nani Sears/Sex: 49/F : 1975 Unit#: [id number] Attend Dr: Dulce Marvin MD Re07/14/24 Status: DEP REF Location: HO.LNP Disch: ----- ------- SPEC : [id number] RECD: 07/15/24 STATUS: REAGAN MARTINEZ NUM: [id number] CANDELARIO: 07/14/24-[address] [facility] [address]: Dulce Marvin MD ENTERED: 07/15/24-1105 SP TYPE: Pap Smr OTHR DR: ORDERED: Pap Smear Interpretation Satisfactory for evaluation. Negative for intraepithelial lesion or malignancy. HPV High Risk: Negative HPV Genotyping 16: Negative HPV Genotyping 18: Negative Clinical Information LMP: Postmenopausal Previous PAP test: Unknown date, +hrHPV Material Received ThinPrep-Cervical ----- ------- Signed (signature on file) EVGENY Muñoz (ASC) 07/17/24 0928 ----- ------- END OF REPORT Dulce Marvin MD LAB CYTOLOGY ORDERABLES Final Result Performing Organization Address [facility] Co de Phone Number [facility] [address] [place] [phone] * HPV mRNA E6/E7 w/Reflex to HPV Genotypes 16, 18/45 (07/14/2024 12:00 AM EST) Historical Provider LAB CYTOLOGY ORDERABLES F inal Result Performing Organization Address [facility] Co de Phone Number [facility] [address] [place] [phone] * Hepatitis C Antibody with Reflex to HCV, RNA, Quantitative, Real-Time PCR (07/13/2024 11:36 AM EST) Hepatitis C Antibody Nonreactive Nonreactive [facility] Comment:Antibodies to HCV no t detected; does not exclude early acuteHCV infection. Blood Venous blood specimen / Unknown 07/13/2024 11:36 AM EST 07/13/2024 11:36 AM EST Ann-Marie Camacho MD LAB BLOOD ORDERABLES Final Result Performing Organization Address [facility] de Phone Number [facility] [address] [place] [phone] * BI Mammogram Screening Tomosynthesis Bilateral [...] sigmoid : hyperplastic poly on Path report. Historical Provider ENDOSCOPY PROCEDURE ORDER LUCRECIA Final Result from Last 3 Months or Most Recently Relevant to Health Maintenance [facility] MEDICARE REPLACEMENT [facility] [place] Care Teams Autopsy Pathologist Relationship Specialty Start Date End Date Ann-Marie Camacho MD [address] [place] [address] LEILA Kam [phone] PCP - General Internal Medicine 02/23/21
--- OUTSIDE RECORDS SUMMARY | 2025-04-20 14:46 | XMS_ITS | Clinical Summary ---
Author Organization [facility] Address [address] [place] [address] Phone Care Team Providers Care Supervisor Finishing Department Name Role Phone Unavailable Primary Care Provider Unavailabl e Social History Tobacco Use Types Packs/Day Years Used Date Smoking Tobacco: Never Assessed Education Answer Date Recorded Are you interested in more education? Not on alli e 12/21/2022 Are you concerned about learning? Not on file 12/21/2022 No 12/21/2022 No 12/21/2022 Digital Access Answer Date Recorded No 01/21/2023 No 01/21/2023 No 01/21/2023 Reliable internet access at home? Not on file 01/21/2023 Device with a working camera? Not on file Comments Unknown Sex and Gender Information Value Date Recorded Sex Assigned at Not on file Legal Sex Female 9:28 PM EDT Gender Identity Not on file Sexual Orientation Not on file Plan of Treatment Not on file Medical Devices Not on file Additional Source Comments The information contained in this document represents components of the legal health record. It is not the complete legal health record.[facility]
--- OUTSIDE RECORDS SUMMARY | 2025-04-20 14:46 | XMS_ITS | Encounter Summary ---
Author Organization [employer] Address [address] [facility] 7t [place] [address] Care Team Providers Care Sales Marketing Coordinator Name Role Phone Ann-Marie Camacho MD Primary Care Provider [phone] Encounter Details Date Type Department Care Team (Latest Contact Info) Description 10/24/2021 Abstract [facility] CONVERSIONS Dental, Provider, DDS Social History Tobacco [...] on filedocumented in this encounter Care Teams Sales Marketing Coordinator Relationship Specialty Start Date End Date Ann-Marie Camacho MD [address] [facility] [place] [address] PCP - General Internal Medicine 02/23/21 documented as of this encounter
--- OUTSIDE RECORDS SUMMARY | 2025-04-20 14:46 | XMS_ITS | Encounter Summary ---
Author Organization [employer] Address [address] [facility] [address] [place] [address] Care Team Providers Care Evp Global Product Leadership Name Role Phone Ann-Marie Camacho MD Primary Care Provider [phone] Encounter Details Date Type Department Care Team (Late st Contact Info) Description 04/20/2025 Orders Only GENERIC EXTERNAL DATA [...] EDT ETHANOL Routine 04/20/2025 1:11 PM EDT CBC WITH AUTO DIFFERENTIAL Routine 04/20/2025 1:11 PM EDT HCG, TOTAL, QN Routine 04/20/2025 1:11 PM EDT COMPREHENSIVE METABOLIC PANEL Routine 04/20/2025 1:11 PM EDT documented in this encounter Results * (ABNORMAL) Drug Monitoring, Panel 1, Screen, Urine (04/20/2025 1:20 PM EDT) Opiate Screen Urine Not Detected Not Detect [facility] Comment:Opiate cut-off is 30 0 ng/mL.Positive results are unconfirmed and should not be used fornon-medical purposes. Barbiturates, Urine Not Detected Not Detect [facility] Comment:Barbiturate cut-off is 200 ng/mL.Positive results are unconfirmed and should not be used fornon-medical purposes. Phencyclidine Screen Urine Not Detected Not Detect [facility] Comment:Phencyclidine cut-of f is 25 ng/mL.Positive results are unconfirmed and should not be used fornon-medical purposes. Amphetamine Screen Urine Not Detected Not Detect [facility] Comment:Amphetamine cut-off is 1000 ng/mL.Positive results are unconfirmed and should not be used fornon-medical purposes. Benzodiazepines Screen Urine Not Detected Not Detect [facility] Comment:Benzodiazepine cut-o ff is 200 ng/mL.Positive results are unconfirmed and should not be used fornon-medical purposes. Cocaine Screen Urine Not Detected Not Detect [facility] Comment:Cocaine cut-off is 3 00 ng/mL.Positive results are unconfirmed and should not be used fornon-medical purposes. Cannabinoid Screen Urine POSITIVE(A) Not Detect [facility] Comment:Cannabinoid cut-off is 50 ng/mL.Positive results are unconfirmed and should not be used fornon-medical purposes. Methadone Screen, Urine Not Detected Not Detect ng/mL [facility] Comment:Methadone cut-off is 300 ng/mL.Positive results are unconfirmed and should not be used fornon-medical purposes. FENTANYL URINE Not Detected Not Detect [facility] Comment:Fentanyl cut-off is 1 ng/mL.Positive results are unconfirmed and should not be used fornon-medical purposes. Oxycodone Urine Screen Not Detected Not Detect ng/mL [facility] Comment:Oxycodone cut-off is 100 ng/mL.Positive results are unconfirmed and should not be used fornon-medical purposes. Buprenorphine Screen Not Detected Not Detect ng/mL [facility] Comment:Buprenorphine cut-of f is 5 ng/mL.Positive results are unconfirmed and should not be used fornon-medical purposes. 04/20/2025 1:20 PM EDT 04/20/2025 1:26 PM EDT Generic External Data Provider LAB URINE ORDERAB LES Final Result [facility] [address] [place] [address] [phone] * Ethanol (04/20/2025 1:11 PM EDT) ETHANOL (MG/DL) IN SER/PLAS <10 mg/dL [facility] Comment:Serum/plasma ethanol results are to be used formedical/treatment purposes only. 04/20/2025 1:11 PM EDT 04/20/2025 1:13 PM EDT us Generic External Data Provider LAB BLOOD ORDERAB LES Final Result [facility] [address] [place] [address] [phone] * (ABNORMAL) Comprehensive Metabolic Panel (04/20/2025 1:11 PM EDT) Sodium 141 135 - 145 mmol/L [facility] Potassium 3.8 3.3 - 5.1 mmol/L [facility] Chloride 106 96 - 108 mmol/L [facility] Carbon Dioxide 23 22 - 29 mmol/L [facility] Anion Gap 16 12 - 20 [facility] Urea Nitrogen (BUN) 13 9 - 16 mg/dL [facility] Creatinine, Serum 0.70 0.5 - 1.4 mg/dL [facility] Creatinine Clr Calc Pharmacy 137.7 [facility] Comment:Provided height and weight: 170.18 cm,131.995 kg.eGFR (calculated from the MDRD study equation) and eCrCl(calculated from the Cockcroft-Gault equation) are based ondifferent parameters and may not yield comparable results.If eCrCl result is absurd, please check patient'sheight/weight. Estimated Glomerular Filt Rate >60 [facility] Comment:Chronic Kidney Disea se: Estimated GFR < 60 mL/min/1.49f0Tquwtw Kidney Disease: Estimated GFR < 15 mL/min/1.73m2 Glucose 170(H) 60 - 115 mg/dL [facility] Calcium 9.2 8.4 - 10.2 mg/dL [facility] Bilirubin, Total 0.2 0.0 - 1.0 mg/dL [facility] Aspartate Amino Transferase 21 5 - 31 U/L [facility] Alanine Aminotransferase 34(H) 0 - 31 U/L [facility] Total Protein 6.7 6.5 - 8.0 g/dL [facility] Albumin Level 4.3 3.5 - 5.0 g/dL [facility] Alkaline Phosphatase 63 39 - 117 U/L [facility] 04/20/2025 1:11 PM EDT 04/20/2025 1:13 PM EDT us Generic External Data Provider LAB BLOOD ORDERAB LES Final Result [facility] [address] [place] [address] [phone] * hCG, Total, Quantitative (04/20/2025 1:11 PM EDT) HCG Quantitative 5 mIU/mL [facility] Comment:Weeks post LMP Appro ximate hCG(Last Menstrual Period) Range (mIU/ml)3 - 4 weeks 9 - 1304 - 5 weeks 75 - 2,6005 - 6 weeks 850 - 20,8006 - 7 weeks 4000 - 100,2007 - 12 weeks 11,500 - 289,43646 - 16 weeks 18,300 - 137,34849 - 29 weeks (2nd trimester) 1,400 - 53,13700 - 41 weeks (3rd trimester) 940 - [...] Provider LAB BLOOD ORDERAB LES Final Result [facility] [address] [place] [address] [phone] * (ABNORMAL) CBC auto differential (04/20/2025 1:11 PM EDT) White Blood Count 10.5 4.8 - 10.8 X10*3/uL [facility] Red Blood Count 4.17(L) 4.20 - 5.50 X10*6/uL [facility] Hemoglobin 12.6 12.0 - 16.0 g/dl [facility] Hematocrit 38.0 37.0 - 47.0 % [facility] Mean Corpuscular Volume 91.1 80.0 - 98.0 fL [facility] Mean Corpuscular Hemoglobin 30.2 27.0 - 33.0 pg [facility] Mean Corpuscular HGB Conc 33.2 31.0 - 35.0 g/dl [facility] Red Cell Distribution Width 13.1 11.0 - 16.0 % [facility] Platelet Count 223 160 - 400 X10*3/uL [facility] Mean Platelet Volume 9.3(L) 9.4 - 12.3 fL [facility] Neutrophils Percent Auto 73.4(H) 45 - 73 % [facility] Imm Gran Pct Auto 0.5(H) 0.0 - 0.4 % [facility] Lymphocytes Percent Auto 22.2 20 - 40 % [facility] Monocytes Percent Auto 3.8 2 - 11 % [facility] Eosinophils Percent Auto 0.0 0 - 4 % [facility] Basophils Percent Auto 0.1 0 - 2 % [facility] NRBC Pct Auto 0.0 0.0 - 0.2 /100WBC [facility] Neutrophils Absolute Auto 7.7 2.0 - 8.3 x10*3/uL [facility] Imm Gran Abs Auto 0.05(H) 0.00 - 0.03 X10*3/uL [facility] Lymphocytes Absolute Auto 2.3 1.2 - 4.9 X10*3/uL [facility] Monocytes Absolute Auto 0.4 0.1 - 1.2 X10*3/uL [facility] Eosinophils Absolute Auto 0.0 0.0 - 0.4 X10*3/uL [facility] Basophils Absolute Auto 0.0 0.0 - 0.2 X10*3/uL [facility] NRBC Abs Auto 0.000 0.0 - 0.012 X10*3/uL [facility] 04/20/2025 1:11 PM EDT 04/20/2025 1:13 PM EDT us Generic External Data Provider LAB BLOOD ORDERAB LES Final Result [facility] [address] [place] [address] [phone] documented in this encounter Visit Diagnoses Not on filedocumented in this encounter Additional Health Concerns Assessment Noted Time PHQ-9 Depression Total Score: 0 11/27/19 25 11:30 AM EDT documented as of this encounter Care Teams Evp Global Product Leadership Relationship Specialty Start Date End Date Ann-Marie Camacho MD [address] [place] [phone] PCP - General Internal Medicine 02/23/21 documented as of this encounter
--- OUTSIDE RECORDS SUMMARY | 2025-04-20 14:46 | XMS_ITS | Encounter Summary ---
Author Organization [employer] Address [address] [facility] 7t [place] [address] Care Team Providers Care Electric Arc Furnace Operator Name Role Phone Ann-Marie Camacho MD Primary Care Provider [phone] Encounter Details Date Type Department Care Team ([facility] st Contact Info) Description 11/22/2022 Orders Only [facility] MED & PEDS [address] [place], [place] [phone] Ann-Marie Camacho MD [address] [place], [place] [phone] Acute pain of right shoulder (Primary Dx) [...] documented as of this encounter Care Teams Electric Arc Furnace Operator Relationship Specialty Start Date End Date Ann-Marie Camacho MD [address] [place] [address] PCP - General Internal Medicine 02/23/21 documented as of this encounter
--- NOTE | 2025-04-20 16:22 | PC.NURSE ---
med rec completed with patient
[2025-04-20 18:28] VITALS: BP 136/74; PULSE 87; RESP 16; O2SAT 96
== END 2025-04-20 18:31 | disposition home or self-care (01) ==
PROVIDERS: Physician Assistant; Emergency Provider Emergency Medicine Emergency Medical Services; PCP Internal Medicine
DX: F41.9 Anxiety disorder, unspecified (principal); R45.851 Suicidal ideations; R45.850 Homicidal ideations; Z72.0 Tobacco use
CPT/HCPCS: 36415; 80053; 80307; 84702; 85025; 99284; 99285; S9485

== ENCOUNTER 2025-04-29 13:42 | Outpatient (REF) | payer BC, MEDICARE, SELFPAY ==
--- OUTSIDE RECORDS SUMMARY | 2024-06-24 11:46 | XMS_ITS | Encounter Summary ---
Author Organization [facility] Address [address] [place] [address] Care Team Providers Care Bullet Assembly Press Setter Operator Name Role Phone Don Hudson MD Primary Care Provider Unavail able Encounter Details Date Type Department Care Team (Late st Contact Info) Description 06/24/2024 11:46 AM EDT Hospital Encounter TH HISTORIC ENCOUNTERS EASTERN CONVERSION ONLY Harsh Proctor MD [address] [place] [address] Social History Tobacco Use Types Packs/Day Years [...] Orientation Straight 06/24/2024 11 :24 AM EDT documented as of this encounter Plan of [...] AM EDT Narrative 06/24/2024 2:43 PM EDT [facility] Diagnostic Imaging Department [address] [place] [address] Patient: FELICIA SEARS /Age/Sex: 1975 - 49 - F Unit#: [id number] Location/Status: SPDIGEN/REG CLI Mnemonic[facility] Ordering Physician: HARSH PROCTOR MD DR Abdomen [...] Sign date/Time: 06/24/24 1443 Procedure Note Anirudh Adikns MD - 06/27/2024 [facility] Diagnostic Imaging Department [address] [place], [place] [id number] Patient: FELICIA SEARS /Age/Sex: 1975 - 49 - F Unit#: [id number] Location/Status: SPDIGEN/REG CLI Mnemonic[facility] Ordering Physician: HARSH PROCTOR MD DR Abdomen [...] Date/Time: 06/24/24 1441 Sign date/Time: 06/24/24 1443 Harsh Proctor MD IMG XR PROCEDURES Final Result documented in this encounter Visit Diagnoses Not on filedocumented in this encounter Additional Health Concerns Infection Onset Date Last Indicated Resolved Time Respiratory Rule-Out 11/16/2024 11/16/2024 025 4:50 PM EDT COVID-19 Rule-Out 11/16/2024 11/16/2024 11/16/2024 4:50 PM EDT documented as of this encounter Care Teams Bullet Assembly Press Setter Operator Relationship Specialty Start Date End Date Don Hudson MD PCP - General 03/30/02 11/15/24 documented as of this encounter
--- OUTSIDE RECORDS SUMMARY | 2025-04-29 13:00 | XMS_ITS | Encounter Summary ---
Author Organization [employer] Address [address] [facility] 7t [place] [address] Care Team Providers Care Manufacturing Engineering Technologist Name Role Phone Ann-Marie Camacho MD Primary Care Provider [phone] Encounter Details Date Type Department Care Team ([facility] st Contact Info) Description 04/29/2025 1:00 PM EDT Office Visit [facility] [address] [place], [place] [phone] Ann-Marie Camacho MD [address] [place], [place] [phone] Irritable bowel syndrome with constipation (Primary Dx); Discharge from wound; PV (pityriasis versicolor) Social History Tobacco Use Types Packs/Day Years [...] your housing situation today? I have kat sing 05/12/[address] you li [...] Sign Reading Time Taken Comments Blood Pressure 154/87 04/29/2025 1:18 PM EDT Pulse 84 04/29/2025 1:18 PM EDT Temperature 36.4 C (97.6 F) 04/29/2025 1:18 PM EDT Respiratory Rate 20 04/29/2025 1:18 PM EDT Oxygen Saturation 97% 04/29/2025 1:18 PM EDT Inhaled Oxygen Concentration - - Weight 137 kg (301 lb) 04/29/2025 1:18 PM EDT Height 170.2 cm (5' 7 ) 04/29/2025 1:18 PM EDT Body Mass Index 47.14 04/29/2025 1:18 PM EDT documented in this encounter Progress Notes * Ann-Marie Camacho MD - 04/29/2025 1:00 PM EDT EPHRAIM Fletcher is a 49 y.o. female who presents for No chief complaint on file.. HPI The note from triage was reviewed: Triage call Pt reports golf ball sized skin lump in left groin. Pt reports this has been growing for a month. Pt reports , I get the goup out of it but, it doesn't go away . Pt reports redness, verytender and has a dark spot in the middle. Pt is advised to apply moist heat and wash hands before and after touching the area. History confirmed. Has followed the nurse recommendation and the lesion has drained pus and blood. Pt feels better. Less tender. No fever. Otherwise Ms Felicia Fletcher is c/o constipation. Had to be at the ED x 2 treated w/ an enema. Currently using 1 senna at night. She feels that she is not completely empty despite that regimen. Problem List[1] Allergies[2] Medications Ordered Prior to Encounter[3] Review of Systems Constitutional: Negative for appetite change, chills and diaphoresis. Respiratory: Negative for cough, choking and shortness of breath. Gastrointestinal: Positive for constipation. Musculoskeletal: Negative for back pain and gait problem. OBJECTIVE There were no vitals filed for this visit. Physical Exam Constitutional: General: She is not in acute distress. Appearance: Normal appearance. She is obese. She is not ill-appearing, toxic- appearing or diaphoretic. Cardiovascular: Rate and Rhythm: Normal rate. Pulmonary: Effort: Pulmonary effort is normal. Abdominal: Palpations: Abdomen is soft. Skin: Comments: 4 x 4 cm erythematous and tender area of the left rubia w/ a central crater still draininga yellowish clear secretion. No fluctuance. Neurological: Mental Status: She is alert. Assessment/Plan Assessment/Plan Diagnoses and all orders for this visit: Irritable bowel syndrome with constipation Comments: Advised to remain well hydrated Lynzess is not tolerated TO increase senna to 2 tab in the evening MS Felicia Fletcher is to call the office if no improvement. Orders: - senna (Senokot) 8.6 MG tablet; Take 1 tablet (8.6 mg) by mouth at bedtime. Discharge from wound Comments: A culture was sent Pt is to continue w/ the compresses Start Bactrim as directed. Orders: - Wound Culture - sulfamethoxazole-trimethoprim (Bactrim DS) 800-160 MG tablet; Take 1 tablet by mouth 2 times daily for 7 days. PV (pityriasis versicolor) - fluconazole (Diflucan) 150 MG tablet; 2 tabs once a week x 2 weeks. [1] Patient Active Problem List Diagnosis Abscess Acute pancreatitis Benign essential hypertension Bipolar disorder (CMS/HCC) Chronic back pain Complex renal cyst Type 2 diabetes mellitus (CMS/HCC) Disease due to severe acute respiratory syndrome coronavirus 2 (SARS-CoV-2) Gastroesophageal reflux disease Hyperlipidemia Hypertension Irritable bowel syndrome Major depressive disorder Migraine headache Obstructive sleep apnea syndrome Polycystic ovary syndrome Psychogenic pain Severe obesity ([facility]) Somatization disorder Acute pain of right [...] to underlying condition w oth circulatory comp ([facility]) [2] Allergies Allergen Reactions [place] Other Other reaction(s): bad reaction Other Reaction(s): [...] Rash Lamotrigine Rash Wound Dressing Adhesive Rash [3] Current Outpatient Medications on File Prior to [...] g 1 Blood Glucose Monitoring Suppl (FreeStyle [place] Lite) w/Device kit Use to test blood sugar 1 times daily 1 kit 0 Blood Glucose Monitoring Suppl (FreeStyle [place] Lite) w/Device kit Use to test blood sugar 1 times daily 1 kit 0 Blood Glucose Monitoring Suppl (OneTouch Verio) w/Device kit 1 Units Once per day. 1 kit 0 wqbojlwapj-yiffbujevsqhm-hlibptbi (Fioricet) 50-300-40 MG capsule TAKE 1 CAPSULE [...] Once per day. 1 each 0 [facility] Use to test blood sugar 1 times [...] facility-administered medications on file prior to visit. documented in this encounter Plan of Treatment Scheduled Orders Name Type Priority Associated Diagnoses Orde r Schedule Wound Culture Microbiology Routine Discharge from wound Ordered: 04/29/2025 documented as of this encounter Visit Diagnoses Diagnosis Irritable bowel syndrome with constipation- Primary Irritable bowel syndrome Discharge from wound PV (pityriasis versicolor) Pityriasis versicolor documented in this encounter Additional Health Concerns Assessment Noted Time PHQ-9 Depression Total Score: 0 11/27/19 25 11:30 AM EDT documented as of this encounter Care Teams Manufacturing Engineering Technologist Relationship Specialty Start Date End Date Ann-Marie Camacho MD [address] [place] [phone] PCP - General Internal Medicine 02/23/21 documented as of this encounter
--- OUTSIDE RECORDS SUMMARY | 2025-04-29 14:59 | XMS_ITS | Encounter Summary ---
Author Organization [employer] Address [address] [facility] [address]t [place] [address] Care Team Providers Care Pediatric Dietician Name Role Phone Ann-Marie Camacho MD Primary Care Provider [phone] Reason for Visit * Reason Onset Date Comments Nurse Triage 04/28/2025 Encounter Details Date Type Department Care Team (Late st Contact Info) Description 04/28/2025 Telephone [facility] [address] [place] [address] Ann-Marie Camacho MD [address] [place], [place] [phone] Nurse Triage Social History Tobacco Use Types [...] encounter Miscellaneous Notes * Telephone Encounter - Carli Perez RN - 04/28/2025 3:38 PM EDT Triage call Pt reports golf ball sized [...] hands before and after touching the area. Pt agrees with home care advised. ASK apt with PCP 04/29/25 @ 100pm. Insurance is verified as active prior to booking. Protocol Used: Boil (Skin Abscess) (Adult) Protocol-Based Disposition: See in Office or Video Visit Today or Tomorrow Video visit not offered Positive Triage Questions: * Boil overlying a joint * Patient wants to be seen * All higher-acuity triage questions were negative Care Advice Discussed: * Reassurance and Education - Boil * Treatment for a Boil - Moist Heat * Preventing Spread to Yourself and Others * Reasons To Call Back - Severe pain or fever occurs - Widespread rash occurs - You become worse * Telephone Encounter - Kymberly Kessler - 04/28/2025 3:24 PM EDT Symptom: Skin Lump Outcome: Schedule an urgent appointment (within 4 hours) or talk to a nurse or provider soon Reason: Red and larger than 1 inch The caller accepted this outcome. Contact pt at [phone] documented in this encounter Plan of Treatment Not on file documented as of this encounter Visit Diagnoses Not on filedocumented in this encounter Additional Health Concerns Assessment Noted Time PHQ-9 Depression Total Score: 0 11/27/19 25 11:30 AM EDT documented as of this encounter Care Teams Pediatric Dietician Relationship Specialty Start Date End Date Ann-aMrie Camacho MD [address] [place] [id number] PCP - General Internal Medicine 02/23/21 documented as of this encounter
--- OUTSIDE RECORDS SUMMARY | 2025-04-29 14:59 | XMS_ITS | Encounter Summary ---
Author Organization [employer] Address [address] [facility] [address]t [place] [address] Care Team Providers Care Gold Wheel Blocker And Polisher Name Role Phone Ann-Marie Camacho MD Primary Care Provider [phone] Encounter Details Date Type Department Care Team (Late st Contact Info) Description 01/21/2025 Orders Only [facility] [address] [place] [address] ProviderRoseanna MD Social History Tobacco Use Types [...] documented as of this encounter Care Teams Gold Wheel Blocker And Polisher Relationship Specialty Start Date End Date Ann-Marie Camacho MD [address] [place] [phone] PCP - General Internal Medicine 02/23/21 documented as of this encounter
--- OUTSIDE RECORDS SUMMARY | 2025-04-29 14:59 | XMS_ITS | Encounter Summary ---
Author Organization [employer] Address [address] [facility] [address] [place] [address] Care Team Providers Care Uc Architect Name Role Phone Ann-Marie Camacho MD Primary Care Provider [phone] Encounter Details Date Type Department Care Team (Latest Contact Info) Description 04/29/2025 Travel Social History Tobacco Use Types Packs/Day [...] documented as of this encounter Care Teams Uc Architect Relationship Specialty Start Date End Date Ann-Marie Camacho MD [address] [place] [address] PCP - General Internal Medicine 02/23/21 documented as of this encounter
--- OUTSIDE RECORDS SUMMARY | 2025-04-29 14:59 | XMS_ITS | Encounter Summary ---
Author Organization [employer] Address 75 [facility] [address]t [place] [address] Care Team Providers Care Certified Medical Records Coder Name Role Phone Ann-Marie Camacho MD Primary Care Provider [phone] Encounter Details Date Type Department Care Team ([facility] st Contact Info) Description 11/26/2024 Orders Only [facility] MED & PEDS [address] [place], [place] [phone] Ann-Marie Camacho MD [address] [place], [place] [phone] Type 2 diabetes mellitus without complication, without long-term current use of insulin (CMS/HCC) (Primary Dx) Social History Tobacco Use Types [...] complication, without long-term current use of insulin ([facility])- Primary documented in this encounter Additional Health Concerns Assessment Noted Time PHQ-9 Depression Total Score: 0 11/27/19 25 11:30 AM EDT documented as of this encounter Care Teams Certified Medical Records Coder Relationship Specialty Start Date End Date Ann-Marie Camacho MD [address] [place] [address] [place] [address] PCP - General Internal Medicine 02/23/21 documented as of this encounter
--- OUTSIDE RECORDS SUMMARY | 2025-04-29 14:59 | XMS_ITS | Encounter Summary ---
Author Organization [employer] Address [address] [facility] 7t [place] [address] Care Team Providers Care Urban Sociologist Name Role Phone Ann-Marie Camacho MD Primary Care Provider [phone] Reason for Visit * Reason Comments Med Refill Encounter Details Date Type Department Care Team ([facility] st Contact Info) Description 12/17/2022 Refill [facility] MED & PEDS [address] [place], [place] [phone] Ann-Marie Camacho MD [address] [place] [address] Social History Tobacco Use Types Packs/Day Years [...] documented as of this encounter Care Teams Urban Sociologist Relationship Specialty Start Date End Date Ann-Marie Camacho MD [address] [place] [id number] PCP - General Internal Medicine 02/23/21 documented as of this encounter
--- OUTSIDE RECORDS SUMMARY | 2025-04-29 14:59 | XMS_ITS | Encounter Summary ---
Author Organization [employer] Address [address] [place] [address] 7 [place] [address] Care Team Providers Care Nuclear Plant Operator Name Role Phone Ann-Marie Camacho MD Primary Care Provider [phone] Reason for Visit * Reason Comments Med Refill Encounter Details Date Type Department Care Team ([facility] st Contact Info) Description 03/17/2023 Refill [facility] MED & PEDS [address] [place], [place] [phone] Ann-Marie Camacho MD [address] [place] [address] Social History Tobacco Use Types Packs/Day Years [...] documented as of this encounter Care Teams Nuclear Plant Operator Relationship Specialty Start Date End Date Ann-Marie Camacho MD [address] [place] [address] PCP - General Internal Medicine 02/23/21 documented as of this encounter
--- OUTSIDE RECORDS SUMMARY | 2025-04-29 14:59 | XMS_ITS | Clinical Summary ---
Author Organization [facility] Facility Address [address] [address] Care Team Providers Care Health Information Administrator Name Role Phone Ann-Marie Camacho MD Primary Care Provider [phone] Allergies Active Allergy Reactions Criticality Noted Date Comments Carbamazepine 01/02/2022 Cariprazine 01/02/2022 Lamotrigine Rash Low 01/02/2022 Myra Other (see comments) 01/02/2022 Penicillins Shortness of [...] Influenza Vaccine (#1) 2025 Insurance Generic Commercial [facility] Medicare Generic Commercial Care Teams Health Information Administrator Relationship Specialty Start Date End Date Ann-Marie Camacho MD [address] [place] [address] PCP - General Internal Medicine 07/14/21
--- OUTSIDE RECORDS SUMMARY | 2025-04-29 14:59 | XMS_ITS | Encounter Summary ---
Author Organization [employer] Address [address] [facility] 7t [place] [address] Care Team Providers Care Flatcar Whacker Name Role Phone Ann-Marie Camacho MD Primary Care Provider [phone] Encounter Details Date Type Department Care Team (Latest Contact Info) Description 10/24/2021 Abstract [facility] CONVERSIONS Dental, Provider, DDS Social History Tobacco [...] on filedocumented in this encounter Care Teams Flatcar Whacker Relationship Specialty Start Date End Date Ann-Marie Camacho MD [address] [place] [address] PCP - General Internal Medicine 02/23/21 documented as of this encounter
--- OUTSIDE RECORDS SUMMARY | 2025-04-29 14:59 | XMS_ITS | Encounter Summary ---
Author Organization [employer] Address [address] [facility] [address]t [place] [address] Care Team Providers Care Vice President Planning Name Role Phone Ann-Marie Camacho MD Primary Care Provider [phone] Encounter Details Date Type Department Care Team (Latest Contact Info) Description 12/22/2024 Orders Only [facility] CHC MED & PEDS [address] [place], [place] [phone] Ann-Marie Camacho MD [address] [place], [place] [phone] Transaminitis (Primary Dx); Pure hypercholesterolemia Social History [...] documented as of this encounter Care Teams Vice President Planning Relationship Specialty Start Date End Date Ann-Marie Camacho MD [address] [place] [address] [place] [address] PCP - General Internal Medicine 02/23/21 documented as of this encounter
--- OUTSIDE RECORDS SUMMARY | 2025-04-29 14:59 | XMS_ITS | Clinical Summary ---
Author Organization [facility] Address [address] [place] [address] Phone Care Team Providers Care Solution Designer Name Role Phone Unavailable Primary Care Provider [...] It is not the complete legal health record.[facility]
--- OUTSIDE RECORDS SUMMARY | 2025-04-29 14:59 | XMS_ITS | Encounter Summary ---
Author Organization [employer] Address [address] [facility] 7t [place] [address] Care Team Providers Care Mrb Engineer Name Role Phone Ann-Marie Camacho MD Primary Care Provider [phone] Encounter Details Date Type Department Care Team (Late st Contact Info) Description 06/25/2024 Orders Only [facility] [address] [place] [address] ProviderRoseanna MD Social History Tobacco Use Types [...] documented as of this encounter Care Teams Mrb Engineer Relationship Specialty Start Date End Date Ann-Marie Camacho MD [address] [place] [address] PCP - General Internal Medicine 02/23/21 documented as of this encounter
--- OUTSIDE RECORDS SUMMARY | 2025-04-29 14:59 | XMS_ITS | Encounter Summary ---
Author Organization [employer] Address [address] [facility] [place] [address] Care Team Providers Care Research Chemical Engineer Name Role Phone Ann-Marie Camacho MD Primary Care Provider [phone] Encounter Details Date Type Department Care Team ([facility] st Contact Info) Description 12/22/2024 Orders Only [facility] CHC MED & PEDS [address] [place] [address] Laura Wan Social History Tobacco Use Types [...] Provider LAB CYTOLOGY ORDERABLES F inal Result [facility] [address] [place] [address] [phone] documented in this encounter Visit Diagnoses Not on filedocumented in this encounter Additional Health Concerns Assessment Noted Time PHQ-9 Depression Total Score: 0 11/27/19 25 11:30 AM EDT documented as of this encounter Care Teams Research Chemical Engineer Relationship Specialty Start Date End Date Ann-Marie Camacho MD [address] [place] [address] PCP - General Internal Medicine 02/23/21 documented as of this encounter
--- OUTSIDE RECORDS SUMMARY | 2025-04-29 14:59 | XMS_ITS | Encounter Summary ---
Author Organization [employer] Address [address] [facility] 7 [place] [address] Care Team Providers Care Special Education Preschool Teacher Name Role Phone Ann-Marie Camacho MD Primary Care Provider [phone] Reason for Visit * Reason Comments Med Refill Encounter Details Date Type Department Care Team ([facility] st Contact Info) Description 10/23/2022 Refill [facility] [address] [place] [address] Ann-Marie Camacho MD [address] [place], [place] [phone] Type 2 diabetes mellitus without complication, without [...] documented as of this encounter Care Teams Special Education Preschool Teacher Relationship Specialty Start Date End Date Ann-Marie Camacho MD [address] [place] [address] PCP - General Internal Medicine 02/23/21 documented as of this encounter
--- OUTSIDE RECORDS SUMMARY | 2025-04-29 14:59 | XMS_ITS | Clinical Summary ---
Author Organization [employer] Address [address] [facility] [address] [place] [address] Care Team Providers Care Pizza Chef Name Role Phone Ann-Marie Camacho MD Primary Care Provider [phone] Allergies Active Allergy Reactions Criticality Noted Date Comments Wound Dressings 08/15/2022 Other reaction(s): adhesive on patches-skin irritations Carbamazepine 01/02/2022 Other Reaction(s): MIGRAINES Cariprazine 01/02/2022 Other Reaction(s): LEG CRAMPS Clindamycin Other 11/19/2024 Reports when taking feels like throat enriquez Cynara Scolymus (Artichoke) Rash Low 08/15/2022 artichoke Dicyclomine Hallucinations 09/16/2024 Fentanyl Rash Low 03/20/2023 Lamotrigine Rash Low 01/02/2022 [place] Other High 01/02/2022 Other reaction(s): bad reaction Other Reaction(s): tremor and falls Penicillins Shortness of breath,Anaphylaxis High 02/23/2021 Other reaction(s): can't breathe, Difficulty breathing, Vomiting Wound Dressing Adhesive Rash Low 03/20/2023 Medications * This document contains information received from the source organization and may not represent a complete record from that organization. butalbital-acet aminophen-caffe ine (Fioricet) 50-300-40 MG capsule TAKE 1 CAPSULE BY MOUTH EVERY 6 HOURS NEEDED FOR HEADACHE 05/24/20 22 Active clonazePAM (KlonoPIN) 1 MG tablet TAKE 1 TABLET BY MOUTH TWICE DAILY NEEDED. MAY USE 1 ADDITIONAL FOR ANXIETY. 30 DAY SUPPLY 07/25/20 22 Active glucose 4 g chewable tablet 06/11/20 22 Active Myrbetriq 50 MG 24 hr tablet Take 50 mg by mouth in the morning. 05/21/20 22 Active ondansetron (Zofran) 4 MG tablet Take 1 tablet by mouth every 8 (eight) hours. 02/14/20 22 Active pantoprazole (ProtoNix) 40 MG EC tablet 07/05/20 22 Active lisinopril 40 MG tablet TAKE 1 TABLET BY MOUTH EVERY DAY 30 tablet 11 11/25/19 24 Active albuterol 108 (90 Base) MCG/ACT inhalerIndicati ons:Bronchitis Inhale 2 puffs every 6 (six) hours if needed for wheezing. 18 g 01/30/20 24 Active cetirizine (ZyrTEC) 10 MG tablet Take 1 tablet (10 mg) by mouth Once per day. 30 tablet 5 02/04/20 24 Active Beclomethasone Diprop HFA (Qvar) 80 MCG/ACT inhaler Inhale 1 Inhalation. in the morning and at bedtime. Rinse mouth with water after use to reduce aftertaste and incidence of candidiasis. Do not swallow. 10.6 g 1 02/04/20 24 Active metoprolol succinate XL (Toprol XL) 100 MG 24 hr tabletIndicatio ns:Hypertension , unspecified type Take 1 tablet (100 mg) by mouth Once per day. Do not crush or chew. 30 tablet 11 06/26/20 24 025 Active metFORMIN (Glucophage) 1000 MG tabletIndicatio ns:Type 2 diabetes mellitus without complication, without long-term current use of insulin ([facility]) TAKE 1 TABLET(1000 MG) BY MOUTH EVERY 12 HOURS 180 tablet 1 10/20/19 25 Active acetaminophen (Tylenol) 500 MG tablet Take 1 tablet (500 mg) by mouth every 6 (six) hours if needed for mild pain for up to 20 doses. 20 tablet 11/12/19 25 Active cloZAPine (Clozaril) 200 MG tablet 11/08/19 25 Active chlorhexidine (Peridex) 0.12 % solution Swish 15 mL morning and night for 1 minute. Spit, do not swallow. Do not eat or drink for 30 minutes following use. 473 mL 11/17/19 25 Active acetaminophen (Tylenol) 500 MG tablet Take 1 tablet (500 mg) by mouth every 6 (six) hours if needed for moderate pain or mild pain for up to 15 doses. 15 tablet 11/17/19 25 Active Blood Glucose Monitoring Suppl (FreeStyle [place] Lite) w/Device kitIndications: Type 2 diabetes mellitus without complication, without long-term current use of insulin ([facility]) Use to test blood sugar 1 times daily 1 kit 11/27/19 25 Active Alcohol Swabs 70 % padsIndications :Type 2 diabetes mellitus without complication, without long-term current use of insulin ([facility]) Use to test blood sugar 1 times daily 100 each 11 11/27/19 25 Active FREESTYLE LITE test stripIndication s:Type 2 diabetes mellitus without complication, without long-term current use of insulin ([facility]) Use to test blood sugar 1 times daily 100 each 11/27/19 25 026 Active Lancets miscIndications :Type 2 diabetes mellitus without complication, without long-term current use of insulin ([facility]) Use to test blood sugar 1 times daily 100 each 11/27/19 25 Active Blood Glucose Monitoring Suppl (FreeStyle [place] Lite) w/Device kitIndications: Type 2 diabetes mellitus without complication, without long-term current use of insulin ([facility]) Use to test blood sugar 1 times daily 1 kit 11/27/19 25 Active empagliflozin (Jardiance) 10 MGIndications:T ype 2 diabetes mellitus without complication, without long-term current use of insulin ([facility]) Take 1 tablet (10 mg) by mouth Once per day. 30 tablet 11/27/19 25 026 Active glucose blood test stripIndication s:Type 2 diabetes mellitus without complication, without long-term current use of insulin ([facility]) To use once a day 100 each 11/27/19 25 026 Active Lancet Devices (Autolet) lancing deviceIndicatio ns:Type 2 diabetes mellitus without complication, without long-term current use of insulin ([facility]) 1 each by Other route Once per day. 1 each 11/27/19 25 026 Active Blood Glucose Monitoring Suppl (OneTouch Verio) w/Device kitIndications: Type 2 diabetes mellitus without complication, without long-term current use of insulin ([facility]) 1 Units Once per day. 1 kit 11/27/19 25 Active Diclofenac Sodium 1 % gelIndications: Muscle ache To apply to the affected area 3 times a day 100 g 12/23/19 25 Active sulfamethoxazol e-trimethoprim (Bactrim DS) 800-160 MG tabletIndicatio ns:Discharge from wound Take 1 tablet by mouth 2 times daily for 7 days. 14 tablet 04/29/20 25 025 Active senna (Senokot) 8.6 MG tabletIndicatio ns:Irritable bowel syndrome with constipation Take 1 tablet (8.6 mg) by mouth at bedtime. 120 tablet 1 04/29/20 25 Active fluconazole (Diflucan) 150 MG tabletIndicatio ns:PV (pityriasis versicolor) 2 tabs once a week x 2 weeks. 4 tablet 04/29/20 25 Active Linzess 290 MCG capsule Take 290 mcg by mouth in the morning. 03/23/20 22 025 Discontinued(T herapy completed) tiZANidine (Zanaflex) 4 MG tabletIndicatio ns:Acute pain of right shoulder Take 1 tablet (4 mg) by mouth every 6 (six) hours if needed for muscle spasms for up to 10 days. 30 tablet 11/22/19 025 Discontinued(T herapy completed) baclofen (Lioresal) 10 MG tabletIndicatio ns:Muscle spasm Take 1 tablet (10 mg) by mouth 3 times daily for 10 days. 30 tablet 12/19/19 23 025 Discontinued(T herapy completed) nicotine (Nicoderm CQ) 21 MG/24HR patch Place 1 patch on the skin 1 (one) time each day at the same time. 30 patch 3 02/04/20 24 025 Discontinued(T herapy completed) fluconazole (Diflucan) 150 MG tabletIndicatio ns:PV (pityriasis versicolor) 2 tabs once a week x 2 weeks. 4 tablet 02/24/20 24 025 Discontinued(R eorder (will not trigger notification to Pharmacy)) azithromycin (Zithromax) 250 MG tablet Take (2) tabs 1st day; take (1) tab next 4 days. 6 tablet 11/12/19 25 025 Discontinued(T herapy completed) lisinopril 40 MG tablet TAKE 1 TABLET BY MOUTH EVERY DAY 30 tablet 11 12/03/19 25 025 Discontinued(O ther) Active Problems Problem Noted Date Diagnosed Date [...] a therapist and psychiatrist thru [facility]. At this time Nani Sears meets criteria for Visit Diagnoses: Problem List Items Addressed This Visit Other Major depressive disorder Anxiety disorder, unspecified Patient ready to address current needs Yes Patient has services in place. Strengths include her usage of coping skills PLAN: 1. Follow up with [facility]: Not recommended for follow-up 2. Patient goal [...] Encounters Date Type Department Care Team Description 04/29/2025 1:00 PM EDT Office Visit [facility] [address] [place] [address] Ann-Marie Camacho MD Irritable bowel syndrome with constipation (Primary Dx); Discharge from wound; PV (pityriasis versicolor) 04/29/2025 Travel 04/28/2025 Telephone [facility] [address] [place] [phone] Ann-Marie Camacho MD Nurse Triage 04/20/2025 Orders Only GENERIC EXTERNAL DATA DEPARTMENT Provider, Generic External Data 03/24/2025 Telephone [facility] [address] [place] [address] Ann-Marie Camacho MD No Show 03/23/2025 Telephone [facility] [address] [place] [address] Ann-Marie Camacho MD Chart Prep 03/17/2025 Patient Outreach [address] [address] Ann-Marie Camacho MD Pre-visit Planning (Pre visit planning LVM ) 01/27/2025 Telephone [facility] [address] [place] [address] Ann-Marie Camacho MD ER Follow-up from Last 3 Months Immunizations Immunization Administration [...] Mass Index 47.14 04/29/2025 1:18 PM EDT Plan of Treatment Health Maintenance Due Date Last Done Comments CT Colonography 1975 Dental Prophylaxis 1975 FIT DNA/Cologuard 1975 FIT 1975 FOBT 1975 HIV Screening 1975 Sigmoidoscopy 1975 Family Planning (PISQ) 1990 Diabetes: Urine Protein Screening 1994 Hepatitis B Vaccines (1 of 3 - 19+ 3-dose series) 1994 Dental Oral Exam 04/27/2022 10/24/2021 Diabetes: Foot Exam 05/01/2023 Dental X-Ray: Full Mouth 10/25/2024 10/24/2021 Diabetes: Hemoglobin A1C 02/25/2025 025, 08/31/2024, 05/12/2024, Additional history exists COVID-19 Vaccine ( season) 2025 01/12/2021, 12/14/2020 Influenza Vaccine (#1) 2025 06/26/2024 Zoster Vaccines (1 of 2) 2025 Alcohol/Substance Use Screening 11/05/2025 11/05/2024 Disability Screening 11/05/2025 11/05/2024 SDOH Screening 11/05/2025 11/05/2024 Dental X-Ray: Bitewings 11/17/2025 11/17/19 25, 10/06/2024, 10/24/2021 Depression Screening 11/26/2025 11/26/2024, 11/27/19 Lipid Panel 12/22/2025 12/22/2024, 06/26, 01/12/2022 Tobacco Screening 04/29/2026 04/29/2025 Mammogram 07/03/2026 07/03/2024 Eye Exam 12/22/2026 12/22/2024, 04/2 04/2025, 12/22/2024, Additional history exists Cervical Cancer Screening [...] AUTO DIFFERENTIAL Routine 04/20/2025 1:11 PM EDT LIPID PANEL, STANDARD Routine 12/22/2024 [...] Opiate Screen Urine Not Detected Not Detect [facility] Comment:Opiate cut-off is 30 0 ng/mL.Positive results are unconfirmed and should not be used fornon-medical purposes. Barbiturates, Urine Not Detected Not Detect [facility] Comment:Barbiturate cut-off is 200 ng/mL.Positive results are unconfirmed and should not be used fornon-medical purposes. Phencyclidine Screen Urine Not Detected Not Detect [facility] Comment:Phencyclidine cut-of f is 25 ng/mL.Positive results are unconfirmed and should not be used fornon-medical purposes. Amphetamine Screen Urine Not Detected Not Detect [facility] Comment:Amphetamine cut-off is 1000 ng/mL.Positive results are unconfirmed and should not be used fornon-medical purposes. Benzodiazepines Screen Urine Not Detected Not Detect [facility] Comment:Benzodiazepine cut-o ff is 200 ng/mL.Positive results are unconfirmed and should not be used fornon-medical purposes. Cocaine Screen Urine Not Detected Not Detect [facility] Comment:Cocaine cut-off is 3 00 ng/mL.Positive results are unconfirmed and should not be used fornon-medical purposes. Cannabinoid Screen Urine POSITIVE(A) Not Detect [facility] Comment:Cannabinoid cut-off is 50 ng/mL.Positive results are unconfirmed and should not be used fornon-medical purposes. Methadone Screen, Urine Not Detected Not Detect ng/mL [facility] Comment:Methadone cut-off is 300 ng/mL.Positive results are unconfirmed and should not be used fornon-medical purposes. FENTANYL URINE Not Detected Not Detect [facility] Comment:Fentanyl cut-off is 1 ng/mL.Positive results are unconfirmed and should not be used fornon-medical purposes. Oxycodone Urine Screen Not Detected Not Detect ng/mL [facility] Comment:Oxycodone cut-off is 100 ng/mL.Positive results are unconfirmed and should not be used fornon-medical purposes. Buprenorphine Screen Not Detected Not Detect ng/mL [facility] Comment:Buprenorphine cut-of f is 5 ng/mL.Positive results are unconfirmed and should not be used fornon-medical purposes. 04/20/2025 1:20 PM EDT 04/20/2025 1:26 PM EDT Generic External Data Provider LAB URINE ORDERAB LES Final Result [facility] [address] [place] [address] [phone] * Ethanol (04/20/2025 1:11 PM EDT) ETHANOL (MG/DL) IN SER/PLAS <10 mg/dL [facility] Comment:Serum/plasma ethanol results are to be used formedical/treatment purposes only. 04/20/2025 1:11 PM EDT 04/20/2025 1:13 PM EDT us Generic External Data Provider LAB BLOOD ORDERAB LES Final Result [facility] [address] [place] [address] [phone] * (ABNORMAL) CBC auto differential (04/20/2025 1:11 PM EDT) White Blood Count 10.5 4.8 - 10.8 X10*3/uL [facility] Red Blood Count 4.17(L) 4.20 - 5.50 X10*6/uL [facility] Hemoglobin 12.6 12.0 - 16.0 g/dl [facility] Hematocrit 38.0 37.0 - 47.0 % [facility] Mean Corpuscular Volume 91.1 80.0 - 98.0 fL [facility] Mean Corpuscular Hemoglobin 30.2 27.0 - 33.0 pg [facility] Mean Corpuscular HGB Conc 33.2 31.0 - 35.0 g/dl [facility] Red Cell Distribution Width 13.1 11.0 - 16.0 % [facility] Platelet Count 223 160 - 400 X10*3/uL [facility] Mean Platelet Volume 9.3(L) 9.4 - 12.3 fL [facility] Neutrophils Percent Auto 73.4(H) 45 - 73 % [facility] Imm Gran Pct Auto 0.5(H) 0.0 - 0.4 % [facility] Lymphocytes Percent Auto 22.2 20 - 40 % [facility] Monocytes Percent Auto 3.8 2 - 11 % [facility] Eosinophils Percent Auto 0.0 0 - 4 % [facility] Basophils Percent Auto 0.1 0 - 2 % [facility] NRBC Pct Auto 0.0 0.0 - 0.2 /100WBC [facility] Neutrophils Absolute Auto 7.7 2.0 - 8.3 x10*3/uL [facility] Imm Gran Abs Auto 0.05(H) 0.00 - 0.03 X10*3/uL [facility] Lymphocytes Absolute Auto 2.3 1.2 - 4.9 X10*3/uL [facility] Monocytes Absolute Auto 0.4 0.1 - 1.2 X10*3/uL [facility] Eosinophils Absolute Auto 0.0 0.0 - 0.4 X10*3/uL [facility] Basophils Absolute Auto 0.0 0.0 - 0.2 X10*3/uL [facility] NRBC Abs Auto 0.000 0.0 - 0.012 X10*3/uL [facility] 04/20/2025 1:11 PM EDT 04/20/2025 1:13 PM EDT Generic External Data Provider LAB BLOOD ORDERAB LES Final Result [facility] [address] [place] [phone] * hCG, Total, Quantitative (04/20/2025 1:11 PM EDT) HCG Quantitative 5 mIU/mL [facility] Comment:Weeks post LMP Appro ximate hCG(Last Menstrual Period) Range (mIU/ml)3 - 4 weeks 9 - 1304 - 5 weeks 75 - 2,6005 - 6 weeks 850 - 20,8006 - 7 weeks 4000 - 100,2007 - 12 weeks 11,500 - 289,09659 - 16 weeks 18,300 - 137,76920 - 29 weeks (2nd trimester) 1,400 - 53,03397 - 41 weeks (3rd trimester) 940 - [...] Provider LAB BLOOD ORDERAB LES Final Result [facility] [address] [place] [address] [phone] * (ABNORMAL) Comprehensive Metabolic Panel (04/20/2025 1:11 PM EDT) Sodium 141 135 - 145 mmol/L [facility] Potassium 3.8 3.3 - 5.1 mmol/L [facility] Chloride 106 96 - 108 mmol/L [facility] Carbon Dioxide 23 22 - 29 mmol/L [facility] Anion Gap 16 12 - 20 [facility] Urea Nitrogen (BUN) 13 9 - 16 mg/dL [facility] Creatinine, Serum 0.70 0.5 - 1.4 mg/dL [facility] Creatinine Clr Calc Pharmacy 137.7 [facility] Comment:Provided height and weight: 170.18 cm,131.995 kg.eGFR (calculated from the MDRD study equation) and eCrCl(calculated from the Cockcroft-Gault equation) are based ondifferent parameters and may not yield comparable results.If eCrCl result is absurd, please check patient'sheight/weight. Estimated Glomerular Filt Rate >60 [facility] Comment:Chronic Kidney Disea se: Estimated GFR < 60 mL/min/1.32m3Gnrpjd Kidney Disease: Estimated GFR < 15 mL/min/1.73m2 Glucose 170(H) 60 - 115 mg/dL [facility] Calcium 9.2 8.4 - 10.2 mg/dL [facility] Bilirubin, Total 0.2 0.0 - 1.0 mg/dL [facility] Aspartate Amino Transferase 21 5 - 31 U/L [facility] Alanine Aminotransferase 34(H) 0 - 31 U/L [facility] Total Protein 6.7 6.5 - 8.0 g/dL [facility] Albumin Level 4.3 3.5 - 5.0 g/dL [facility] Alkaline Phosphatase 63 39 - 117 U/L [facility] 04/20/2025 1:11 PM EDT 04/20/2025 1:13 PM EDT us Generic External Data Provider LAB BLOOD ORDERAB LES Final Result Performing Organization Address [facility]/ZIP Co de Phone Number [facility] [address] [place] [phone] [phone] * (ABNORMAL) Lipid Panel, Standard (12/22/2024 11:04 AM EDT) Triglycerides 436(H) <150 mg/dL [facility] Comment:Desirable Triglyceri de: less than 150 mg/dLBorderline High Triglyceride 150-199 mg/dLHigh Triglyceride: 200-499 mg/dLVery High Triglyceride: greater than or equal to 5OO mg/dL Cholesterol 258(H) <200 mg/dL [facility] Comment:Desirable Cholestero l: less than 200 mg/dLBorderline High Cholesterol: 200-239 mg/dLHigh Cholesterol: greater than 239 mg/dL LDL Cholesterol Calculated TNP <100 mg/dL [facility] Comment:Unable to calculate the LDL. The formula of Friedwald,Kothari, and Audrey is only valid if the triglycerides areless than 400 mg/dl. HDL Cholesterol 34(L) >40 mg/dL [facility] Comment:Desirable HDL: great er than 40 mg/dL Note: This HDL assay may give artificially low results in patients with liver disease. Blood Venous blood specimen / Unknown 12/22/2024 11:04 AM EDT 12/22/2024 2:20 PM EDT us Ann-Marie Camacho MD LAB BLOOD ORDERABLES Final Result Performing Organization Address [facility]/ZIP Co de Phone Number [facility] [address] [place] [address] [phone] * (ABNORMAL) POCT HGB A1C (11/26/2024 12:00 PM EDT) Hemoglobin A1C 7.0(A) 4.0 - 6.0 % QC Media Lot # [id number] Lot# Expiration Date [id number] Blood 11/26/2024 12:0 0 PM EDT us Ann-Marie Camacho MD POINT OF CARE TEST ENTER/ED IT ORDERABLES Final Result * Pap Smear (07/14/2024 10:44 AM EST) Swab 07/14/2024 10:4 4 AM EST 07/15/2024 9:15 AM EST Narrative [facility] - 07/17/2024 9:28 AM EST ----- ------- Name: ChanceOrlandoNani Caryn Age/Sex: 49/F : 1975 Unit#: [id number] Attend Dr: Dulce Marvin MD Re07/14/24 Status: DEP REF Location: [facility] Disch: ----- ------- SPEC : [id number] RECD: 07/15/24 STATUS: REAGAN MARTINEZ NUM: [id number] CANDELARIO: 07/14/24-[address]: Dulce Marvin MD ENTERED: 07/15/24-1105 SP TYPE: Pap Smr OTHR DR: ORDERED: Pap Smear Interpretation Satisfactory for evaluation. Negative for intraepithelial lesion or malignancy. HPV High Risk: Negative HPV Genotyping 16: Negative HPV Genotyping 18: Negative Clinical Information LMP: Postmenopausal Previous PAP test: Unknown date, +hrHPV Material Received ThinPrep-Cervical ----- ------- Signed (signature on file) EVGENY Muñoz (ASCP) 07/17/24 0928 ----- ------- END OF REPORT Dulce Marvin MD LAB CYTOLOGY ORDERABLES Final Result Performing Organization Address [facility] de Phone Number [facility] [address] [place] [phone] * HPV mRNA E6/E7 w/Reflex to HPV Genotypes 16, 18/45 (07/14/2024 12:00 AM EST) Historical Provider MD LAB CYTOLOGY ORDERABLES F inal Result Performing Organization Address [facility] Co de Phone Number [facility] [address] [place] [phone] * Hepatitis C Antibody with Reflex to HCV, RNA, Quantitative, Real-Time PCR (07/13/2024 11:36 AM EST) Hepatitis C Antibody Nonreactive Nonreactive [facility] Comment:Antibodies to HCV no t detected; does not exclude early acuteHCV infection. Blood Venous blood specimen / Unknown 07/13/2024 11:36 AM EST 07/13/2024 11:36 AM EST us Ann-Marie Camacho MD LAB BLOOD ORDERABLES Final Result [facility] [address] [place] [phone] * BI Mammogram Screening Tomosynthesis Bilateral [...] Most Recently Relevant to Health Maintenance Insurance [facility] MEDICARE REPLACEMENT [place] [facility] OF IN Care Teams Pizza Chef Relationship Specialty Start Date End Date Ann-Marie Camacho MD [address] [facility] LEILA Kam PCP - General Internal Medicine 02/23/21
--- OUTSIDE RECORDS SUMMARY | 2025-04-29 14:59 | XMS_ITS | Encounter Summary ---
Author Organization [employer] Address [address] [facility] [address] [place] [address] Care Team Providers Care Breaker Unit Assembler Name Role Phone Ann-Marie Camacho MD Primary Care Provider [phone] Encounter Details Date Type Department Care Team (Latest Contact Info) Description 07/13/[address] [facility] [address] [place], [place] [phone] Ann-Marie Camacho MD [address] [place], [place] [phone] Pure hypercholesterolemia (Primary Dx) Social History Tobacco [...] documented as of this encounter Care Teams Breaker Unit Assembler Relationship Specialty Start Date End Date Ann-Marie Camacho MD [address] [place] [phone] PCP - General Internal Medicine 02/23/21 documented as of this encounter
--- OUTSIDE RECORDS SUMMARY | 2025-04-29 14:59 | XMS_ITS | Encounter Summary ---
Author Organization [employer] Address [address] [facility] [address] [place] [address] Care Team Providers Care In Store Demonstrator Name Role Phone Ann-Marie Camacho MD Primary Care Provider [phone] Encounter Details Date Type Department Care Team ([facility] st Contact Info) Description 12/05/2022 Abstract [facility] [address] [place], [place] [phone] Ann-Marie Camacho MD [address] [place] [address] Social History Tobacco Use Types Packs/Day Years [...] documented as of this encounter Care Teams In Store Demonstrator Relationship Specialty Start Date End Date Ann-Marie Camacho MD [address] [place] [phone] PCP - General Internal Medicine 02/23/21 documented as of this encounter
--- OUTSIDE RECORDS SUMMARY | 2025-04-29 14:59 | XMS_ITS | Encounter Summary ---
Author Organization [employer] Address [address] [facility] [address] [place] [address] Care Team Providers Care Casing Inspector Name Role Phone Ann-Marie Camacho MD Primary Care Provider [phone] Reason for Visit * Reason Onset Date Comments Results 01/15/2024 FYI 01/15/2024 Encounter Details Date Type Department Care Team ([facility] st Contact Info) Description 01/15/2024 Telephone [facility] [address] [place] [address] Ann-Marie Camacho MD [address] [place], [place] [phone] Results; Social History Tobacco Use Types Packs/Day [...] documented as of this encounter Care Teams Casing Inspector Relationship Specialty Start Date End Date Ann-Marie Camacho MD [address] [place] [phone] PCP - General Internal Medicine 02/23/21 documented as of this encounter
--- OUTSIDE RECORDS SUMMARY | 2025-04-29 14:59 | XMS_ITS | Encounter Summary ---
Author Organization [employer] Address [address] [facility] 7t [place] [address] Care Team Providers Care Front Office Java Developer Name Role Phone Ann-Marie Camacho MD Primary Care Provider [phone] Encounter Details Date Type Department Care Team ([facility] st Contact Info) Description 11/22/2022 Orders Only [facility] CHC MED & PEDS [address] [place], [place] [phone] Ann-Marie Camacho MD [address] [place], [place] [phone] Acute pain of right shoulder (Primary Dx) [...] documented as of this encounter Care Teams Front Office Java Developer Relationship Specialty Start Date End Date Ann-Marie Camacho MD [address] [place] [phone] PCP - General Internal Medicine 02/23/21 documented as of this encounter
--- OUTSIDE RECORDS SUMMARY | 2025-04-29 14:59 | XMS_ITS | Clinical Summary ---
Author Organization [facility] [place] [address] Phone Care Team Providers Care Sizer Machine Name Role Phone Ann-Marie Camacho MD Primary Care Provider [phone] Allergies Active Allergy Reactions Criticality Noted Date Comments Adhesive Rash Low 03/20/2023 Other Reaction(s): adhesive on patches-skin irritations Artichoke Rash Low 08/15/2022 artichoke Carbamazepine 01/02/2022 Other Reaction(s): MIGRAINES Cariprazine 01/02/2022 Other Reaction(s): LEG CRAMPS Clindamycin Other 11/19/2024 Reports when taking feels like throat enriquez Dicyclomine Hallucinations 09/16/2024 Fentanyl Rash Low 03/20/2023 Lamotrigine Rash Low 01/02/2022 Humble Other High 01/02/2022 Other Reaction(s): bad reaction [...] to 5 days. 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 (CMS/HCC V24, CMS/HCC V28) 11/16/2024 Dyspnea on exertion 11/16/2024 Mid back pain on left side 11/16/2024 Nausea vomiting and diarrhea 11/16/2024 Near syncope 11/16/2024 Palpitation 11/16/2024 Thrombosed external hemorrhoid 11/16/2024 Overactive bladder 08/31/2024 Anxiety disorder, unspecified 05/09/2023 Acute pain of right shoulder 08/21/2022 Abscess 08/15/2022 Benign essential hypertension 08/15/2022 Bipolar disorder ([facility] V24, [facility] V28) 122 08/2021 Hyperlipidemia 08/15/2022 Major depressive disorder 08/15/2022 Irritable [...] syndrome 08/15/2022 Psychogenic pain 08/15/2022 Severe obesity ([facility] V24, [facility] V28) 2021 Somatization disorder 08/15/2022 [...] EDT - 03/20/2025 6:45 PM EDT Emergency [facility] Emergency [address] [place] [address] Tyrese Grover MD Fecal impaction ([facility] V24, [facility] V28) (Primary Dx) Discharge Disposition: Home or Self Care 03/14/2025 5:14 PM EDT - 03/14/2025 7:38 PM EDT Emergency [facility] Emergency [address] [place] [address] Indra Tejeda MD Intractable migraine without aura and with status migrainosus (Primary Dx) Discharge Disposition: Home or Self Care 01/27/2025 1:30 PM EDT Office Visit Gastroenterology - [address] [facility] [address] [facility] [address] [place] [address] Jim Martinez MD Irritable bowel syndrome with both constipation and diarrhea (Primary Dx); Gastroparesis from Last 3 Months Immunizations Name Administration [...] Medical History Date Comments Hypertension Diabetes mellitus ([facility] V24, [facility] V28) Hypercholesteremia Depression Anxiety Gastroparesis [...] Influencers of Health Screening 07/24/2022 Depression Screening 08/26/2024 Diabetes: Annual Urine Albumin-Creatinine Ratio (uACR) 11/17/2024 COVID-19 Vaccine ( season) 2025 01/12/2021, 12/14/2020 Influenza Vaccine (#1) 2025 06/26/2024 Diabetes: Blood [...] EDT COLONOSCOPY Routine 03/02/2025 9:37 AM EDT from Last 3 Months Results * CBC auto differential (03/14/2025 5:29 PM EDT) WBC 10.4 4.8 - 10.8 K/mcL LAB HEMETOLOGY METHOD 03/14/2025 5:[address] [facility] RBC 4.40 3.80 - 4.80 M/mcL LAB HEMETOLOGY METHOD 03/14/2025 5:[address] [facility] Hemoglobin 13.3 11.5 - 16.0 g/dL LAB HEMETOLOGY METHOD 03/14/2025 5:[address] [facility] Hematocrit 39.7 35.0 - 47.0 % LAB HEMETOLOGY METHOD 03/14/2025 5:[address] [facility] MCV 90.4 79.0 - 98.0 FL LAB HEMETOLOGY METHOD 03/14/2025 5:[address] [facility] MCH 30.3 27.0 - 32.0 pcg LAB HEMETOLOGY METHOD 03/14/2025 5:[address] [facility] MCHC 33.5 32.0 - 37.0 g/dL LAB HEMETOLOGY METHOD 03/14/2025 5:[address] [facility] RDW 13.2 11.0 - 15.0 % LAB HEMETOLOGY METHOD 03/14/2025 5:[address] [facility] Platelets 234 130 - 400 K/mcL LAB HEMETOLOGY METHOD 03/14/2025 5:[address] [facility] MPV 10.1 7.0 - 11.0 FL LAB HEMETOLOGY METHOD 03/14/2025 5:[address] [facility] NRBC 0.0 <1.0 % LAB HEMETOLOGY METHOD 03/14/2025 5:[address] [facility] NRBC Absolute 0.00 <0.10 K/mcL LAB HEMETOLOGY METHOD 03/14/2025 5:[address] [facility] Neutrophils Relative 62.3 % LAB HEMETOLOGY METHOD 03/14/2025 5:[address] [facility] Lymphocytes Relative 32.3 % LAB HEMETOLOGY METHOD 03/14/2025 5:[address] [facility] Monocytes Relative 4.9 % LAB HEMETOLOGY METHOD 03/14/2025 5:[address] [facility] Eosinophils Relative 0.1 % LAB HEMETOLOGY METHOD 03/14/2025 5:[address] [facility] Basophils Relative 0.1 % LAB HEMETOLOGY METHOD 03/14/2025 5:[address] [facility] Immature Granulocytes Relative 0.3 % LAB HEMETOLOGY METHOD 03/14/2025 5:[address] [facility] Neutrophils Absolute 6.45 1.50 - 7.00 K/mcL LAB HEMETOLOGY METHOD 03/14/2025 5:[address] [facility] Lymphocytes Absolute 3.35 1.00 - 5.00 K/mcL LAB HEMETOLOGY METHOD 03/14/2025 5:[address] [facility] Monocytes Absolute 0.51 0.20 - 1.00 K/mcL LAB HEMETOLOGY METHOD 03/14/2025 5:[address] [facility] Eosinophils Absolute 0.01 0.00 - 0.50 K/mcL LAB HEMETOLOGY METHOD 03/14/2025 5:[address] [facility] Basophils Absolute 0.01 0.00 - 0.20 K/mcL LAB HEMETOLOGY METHOD 03/14/2025 5:[address] [facility] Immature Granulocytes Absolute 0.03 0.00 - 0.03 K/mcL LAB HEMETOLOGY METHOD 03/14/2025 5:[address] [facility] Blood Venous blood specimen / Unknown Venipuncture / Unknown 03/14/2025 5:29 PM EDT 03/14/2025 5:33 PM EDT us Indra Tejeda MD LAB BLOOD ORDERABLES Final Resul t [facility] [address] [place] [address], * (ABNORMAL) Comprehensive metabolic panel (03/14/2025 5:29 PM EDT) Sodium 141 133 - 145 mmol/L LAB CHEMISTRY METHOD 03/14/2025 6:[address] [facility] Potassium 3.8 3.5 - 5.5 mmol/L LAB CHEMISTRY METHOD 03/14/2025 6:[address] [facility] Chloride 109 96 - 110 mmol/L LAB CHEMISTRY METHOD 03/14/2025 6:[address] [facility] CO2 25 21 - 32 mmol/L LAB CHEMISTRY METHOD 03/14/2025 6:[address] [facility] Anion Gap 7 3 - 11 LAB CHEMISTRY METHOD 03/14/2025 6:[address] [facility] Glucose 120(H) 70 - 100 mg/dL LAB CHEMISTRY METHOD 03/14/2025 6:[address] [facility] BUN 16 5 - 25 mg/dL LAB CHEMISTRY METHOD 03/14/2025 6:[address] [facility] Creatinine 0.77 0.50 - 1.10 mg/dL LAB CHEMISTRY METHOD 03/14/2025 6:[address] [facility] eGFR 95 >=60 mL/min/1. 73m2 LAB CHEMISTRY METHOD 03/14/2025 6:[address] [facility] Comment:Calculation based on the Chronic Kidney Disease Epidemiology Collaboration (CKD-EPI) equation refit without adjustment for race. BUN/Creatinine Ratio 20.8 LAB CHEMISTRY METHOD 03/14/2025 6:[address] [facility] Calcium 9.0 8.5 - 10.5 mg/dL LAB CHEMISTRY METHOD 03/14/2025 6:[address] [facility] AST (SGOT) 23 10 - 42 unit/L LAB CHEMISTRY METHOD 03/14/2025 6:[address] [facility] ALT (SGPT) 39 10 - 60 unit/L LAB CHEMISTRY METHOD 03/14/2025 6:[address] [facility] Alkaline Phosphatase 67 42 - 121 unit/L LAB CHEMISTRY METHOD 03/14/2025 6:[address] [facility] Total Protein 7.0 6.0 - 8.0 g/dL LAB CHEMISTRY METHOD 03/14/2025 6:[address] [facility] Albumin 3.8 3.2 - 5.0 g/dL LAB CHEMISTRY METHOD 03/14/2025 6:[address] [facility] Total Bilirubin 0.2 0.0 - 1.4 mg/dL LAB CHEMISTRY METHOD 03/14/2025 6:[address] [facility] Blood Venous blood specimen / Unknown Venipuncture / Unknown 03/14/2025 5:29 PM EDT 03/14/2025 5:33 PM EDT Indra Tejeda MD LAB BLOOD ORDERABLES Final Resul t Performing Organization Address City/State/[facility] Co de Phone Number [facility] [address] [place] [address], [place] [phone] * COLONOSCOPY (03/02/2025 9:37 AM EDT) Anatomical Region Laterality Modality Endoscopy Historical Provider GI~PROCEDURE ORDERABLES F inal Result from Last 3 Months Insurance [facility] [place] [address] [facility] Care Teams Sizer Machine Relationship Specialty Start Date End Date Ann-Marie Camacho MD [address] [place] [address] [place] [id number] PCP - General Internal Medicine 11/16/24
--- OUTSIDE RECORDS SUMMARY | 2025-04-29 15:00 | XMS_ITS | Encounter Summary ---
Author Organization [employer] Address [address] [place] [address] [address] [place] [address] Care Team Providers Care Silk Screen Printer Name Role Phone Ann-Marie Camacho MD Primary Care Provider [phone] Reason for Visit * Reason Onset Date Comments Error 10/22/2023 Encounter Details Date Type Department Care Team (Late st Contact Info) Description 10/22/2023 Telephone [facility] [address] [place] [address] Ann-Marie Camacho MD [address] [place], [place] [phone] Error Social History Tobacco Use Types Packs/Day [...] documented as of this encounter Care Teams Silk Screen Printer Relationship Specialty Start Date End Date Ann-Marie Camacho MD [address] [place] [address] PCP - General Internal Medicine 02/23/21 documented as of this encounter
[2025-04-29 18:46] LABS: Ferritin 32 ng/mL (10-250)
[2025-04-29 18:49] LABS: Alanine Aminotransferase 28 U/L (0-31); Albumin Level 4.6 g/dL (3.5-5.0); Alkaline Phosphatase 66 U/L (39-117); Aspartate Amino Transferase 44 U/L (5-31); Cholesterol 263 mg/dL (<200); HDL Cholesterol 34 mg/dL (>40); Iron 55 mcg/dL (30-160); Percent Iron Saturation 23 % (15-50); Total Iron Binding Capacity 235 mcg/dL (228-428); Total Protein 7.3 g/dL (6.5-8.0); Triglycerides 544 mg/dL (<150); Unsaturated Iron Binding 180 ug/dL
[2025-04-29 18:57] LABS: Appearance Urine Clear; Glucose Urine UA Negative (Negative); PH 7.5 (5.0-9.0); Specific Gravity - Urine <= 1.005 (1.005-1.025)
[2025-05-04 10:59] LABS: Anti Nuclear Antibody Screen NEGATIVE (NEGATIVE)
== END 2025-04-29 13:43 | disposition home or self-care (01) ==
LOC: HO.CHCLDS 13:42
PROVIDERS: Visit Provider Internal Medicine
DX: R74.01 Elevation of levels of liver transaminase levels (principal); E78.00 Pure hypercholesterolemia, unspecified; R10.84 Generalized abdominal pain; T14.8XXD Other injury of unspecified body region, subsequent encounter
CPT/HCPCS: 36415; 80061; 80076; 81001; 82728; 82784; 83540; 86038; 87070; 87147; 87205

== ENCOUNTER 2025-05-03 11:47 | Outpatient (REF) | payer BC, MEDICARE, SELFPAY ==
--- OUTSIDE RECORDS SUMMARY | 2024-06-24 11:46 | XMS_ITS | Encounter Summary ---
Author Organization [facility] Address [address] [place] [address] Care Team Providers Care Warehouse Selector Name Role Phone Don Hudson MD Primary [...] as of this encounter Plan of Treatment Upcoming Encounters Date Type Department Care Team (Late st Contact Info) Description 2025 8:00 AM EDT Appointment [facility] Ultrasound [address] [place] [address] 2025 8:30 AM EDT Appointment [facility] Ultrasound [address] [place] [address] documented as of this encounter Procedures Procedure Name Priority Date/Time Associated Diagnosis Comments ABDOMEN FLAT AND ERECT Routine 06/24/2024 2:43 PM EDT documented in this encounter Results * ABDOMEN FLAT AND ERECT (06/24/2024 2:43 PM EDT) Anatomical Region Laterality Modality Radiographic Naila ging 06/24/2024 11:5 0 AM EDT Narrative 06/24/2024 2:43 PM EDT [facility] Diagnostic Imaging Department [address] [place] [address] Patient: FELICIA SEARS /Age/Sex: 1975 - 49 - F Unit#: [id number] Location/Status: SPDIGEN/REG CLI Mnemonic/Ordering Site: [facility] Ordering Physician: HARSH PROCTOR MD DR Abdomen [...] Procedure Note Anirudh Adkins MD - 06/27/2024 [facility] Diagnostic Imaging Department [address] [place] [address] Patient: FELICIA SEARS Caryn /Age/Sex: 1975 - 49 - F Unit#: [id number] Location/Status: SPDIGEN/REG CLI Mnemonic/Ordering Site: [facility] Ordering Physician: HARSH PROCTOR MD DR Abdomen [...] documented as of this encounter Care Teams Warehouse Selector Relationship Specialty Start Date End Date Don Hudson MD PCP - General 03/30/02 11/15/24 documented as of this encounter
--- OUTSIDE RECORDS SUMMARY | 2025-04-29 13:00 | XMS_ITS | Encounter Summary ---
Author Organization [employer] Address [address] [facility] 7t [place] [address] Care Team Providers Care Psychological Aide Name Role Phone Ann-Marie Camacho MD Primary Care Provider [phone] Encounter Details Date Type Department Care Team ([facility] st Contact Info) Description 04/29/2025 1:00 PM EDT Office Visit [facility] [address] [place], [place] [phone] Ann-Marie Camacho MD [address] [place], [place] [phone] Irritable bowel syndrome with constipation (Primary Dx); [...] Polycystic ovary syndrome Psychogenic pain Severe obesity ([facility]) Somatization disorder Acute pain of right shoulder [...] to underlying condition w oth circulatory comp ([facility]) [2] Allergies Allergen Reactions [place] Other Other reaction(s): bad reaction Other Reaction(s): [...] g 1 Blood Glucose Monitoring Suppl (FreeStyle [place] Lite) w/Device kit Use to test blood sugar 1 times daily 1 kit 0 Blood Glucose Monitoring Suppl (FreeStyle [place] Lite) w/Device kit Use to test blood sugar 1 times daily 1 kit 0 Blood Glucose Monitoring Suppl (OneTouch Verio) w/Device kit 1 Units Once per day. 1 kit 0 nqrhrxcoba-twhyrhxkjthkh-rngguwfh (Fioricet) 50-300-40 MG capsule TAKE 1 CAPSULE [...] Once per day. 1 each 0 Lancets [facility] Use to test blood sugar 1 times [...] documented as of this encounter Care Teams Psychological Aide Relationship Specialty Start Date End Date Ann-Marie Camacho MD [address] [place] [id number] PCP - General Internal Medicine 02/23/21 documented as of this encounter
--- OUTSIDE RECORDS SUMMARY | 2025-05-03 14:23 | XMS_ITS | Encounter Summary ---
Author Organization [employer] Address [address] [facility] [address] [place] [address] Care Team Providers Care Patient Registration Rep Name Role Phone Ann-Marie Camacho MD Primary Care Provider [phone] Encounter Details Date Type Department Care Team ([facility] st Contact Info) Description 04/29/2025 Orders Only [facility] CHC MED & PEDS [address] [place], [place] [phone] Ann-Marie Camacho MD [address] [place] [address] Social History Tobacco Use Types Packs/Day Years [...] Procedure Name Priority Date/Time Associated Diagnosis Comments GRAM STAIN RESULT (NON ORDERABLE) Routine 04/29/2025 1:26 PM EDT documented in this encounter Results * Gram Stain Result (04/29/2025 1:26 PM EDT) 04/29/2025 1:26 PM EDT 04/29/2025 5:37 PM EDT Comment:Groin Narrative [facility] - 05/01/2025 1:01 PM EDT Gram stain results: 4+ polys 3+ epithelial cells 3+ red blood cells 1+ Gram-positive rods Routine Culture Report - external Routine Culture 3+ Mixed skin liam Strep agalactiae (Grp B) Quant Org ID 2+ Susc N/A Susceptibility not routinely performed on this isolate. Specimen Source: Groin us Ann-Marie Camacho MD HISTORICAL/NON ORDERABLE MARILEE HUDDLE[place]ON Final Result [facility] [address] [place] [phone] documented in this encounter Visit Diagnoses Not on filedocumented in this encounter Additional Health Concerns Assessment Noted Time PHQ-9 Depression Total Score: 0 11/27/19 25 11:30 AM EDT documented as of this encounter Care Teams Patient Registration Rep Relationship Specialty Start Date End Date Ann-Marie Camacho MD [address] [place] [phone] PCP - General Internal Medicine 02/23/21 documented as of this encounter
--- OUTSIDE RECORDS SUMMARY | 2025-05-03 14:23 | XMS_ITS | Encounter Summary ---
Author Organization [employer] Address [address] [facility] [address] 7[address] [place] [address] Care Team Providers Care Professor Of Art History Name Role Phone Ann-Marie Camacho MD Primary Care Provider [phone] Encounter Details Date Type Department Care Team ([facility] st Contact Info) Description 12/22/2024 Orders Only [facility] CHC MED & PEDS [address] [place] [address] Laura Wan Social History Tobacco Use Types [...] Provider LAB CYTOLOGY ORDERABLES F inal Result [facility] [address] [place] [address] [phone] documented in this encounter Visit Diagnoses Not on filedocumented in this encounter Additional Health Concerns Assessment Noted Time PHQ-9 Depression Total Score: 0 11/27/19 25 11:30 AM EDT documented as of this encounter Care Teams Professor Of Art History Relationship Specialty Start Date End Date Ann-Marie Camacho MD [address] [place] [phone] PCP - General Internal Medicine 02/23/21 documented as of this encounter
--- OUTSIDE RECORDS SUMMARY | 2025-05-03 14:23 | XMS_ITS | Clinical Summary ---
Author Organization [employer] Address [address] [address] [place] [address] Care Team Providers Care Special Technical Operations Officer Name Role Phone Ann-Marie Camacho MD Primary Care Provider [phone] Allergies Active Allergy Reactions Criticality Noted Date Comments Wound Dressings 08/15/2022 Other reaction(s): adhesive on patches-skin irritations Carbamazepine 01/02/2022 Other Reaction(s): MIGRAINES Cariprazine 01/02/2022 Other Reaction(s): LEG CRAMPS Clindamycin Other 11/19/2024 Reports when taking feels like throat enriquez Cynara Scolymus ([place]ichoke) Rash Low 08/15/2022 artichoke Dicyclomine Hallucinations 09/16/2024 Fentanyl Rash Low 03/20/2023 Lamotrigine Rash Low 01/02/2022 [place] Other High 01/02/2022 Other reaction(s): bad reaction Other Reaction(s): tremor and falls Penicillins Shortness of breath,Anaphylaxis High 02/23/2021 Other reaction(s): can't breathe, Difficulty breathing, Vomiting Wound Dressing Adhesive Rash Low 03/20/2023 Medications * This document contains information received from the source organization and may not represent a complete record from that organization. butalbital-acetaminoph en-caffeine (Fioricet) 50-300-40 MG capsule TAKE 1 CAPSULE BY MOUTH EVERY 6 HOURS NEEDED FOR HEADACHE Active clonazePAM (KlonoPIN) 1 MG tablet TAKE 1 TABLET BY MOUTH TWICE DAILY NEEDED. MAY USE 1 ADDITIONAL FOR ANXIETY. 30 DAY SUPPLY Active glucose 4 g chewable tablet Active Myrbetriq 50 MG 24 hr tablet Take 50 mg by mouth in the morning. Active ondansetron (Zofran) 4 MG tablet Take 1 tablet by mouth every 8 (eight) hours. Active pantoprazole (ProtoNix) 40 MG EC tablet Active lisinopril 40 MG tablet TAKE 1 TABLET BY MOUTH EVERY DAY 30 tablet 11 Active albuterol 108 (90 Base) MCG/ACT inhalerIndications:Bro nchitis Inhale 2 puffs every 6 (six) hours if needed for wheezing. 18 g Active cetirizine (ZyrTEC) 10 MG tablet Take 1 tablet (10 mg) by mouth Once per day. 30 tablet 5 Active Beclomethasone Diprop HFA (Qvar) 80 MCG/ACT inhaler Inhale 1 Inhalation. in the morning and at bedtime. Rinse mouth with water after use to reduce aftertaste and incidence of candidiasis. Do not swallow. 10.6 g 1 Active metoprolol succinate XL (Toprol XL) 100 MG 24 hr tabletIndications:Hype rtension, unspecified type Take 1 tablet (100 mg) by mouth Once per day. Do not crush or chew. 30 tablet 06/26 Active metFORMIN (Glucophage) 1000 MG tabletIndications:Type 2 diabetes mellitus without complication, without long-term current use of insulin ([facility]) TAKE 1 TABLET(1000 MG) BY MOUTH EVERY 12 HOURS 180 tablet 1 Active acetaminophen (Tylenol) 500 MG tablet Take 1 tablet (500 mg) by mouth every 6 (six) hours if needed for mild pain for up to 20 doses. 20 tablet Active cloZAPine (Clozaril) 200 MG tablet Active chlorhexidine (Peridex) 0.12 % solution Swish 15 mL morning and night for 1 minute. Spit, do not swallow. Do not eat or drink for 30 minutes following use. 473 mL Active acetaminophen (Tylenol) 500 MG tablet Take 1 tablet (500 mg) by mouth every 6 (six) hours if needed for moderate pain or mild pain for up to 15 doses. 15 tablet Active Blood Glucose Monitoring Suppl (FreeStyle [place] Lite) w/Device kitIndications:Type 2 diabetes mellitus without complication, without long-term current use of insulin ([facility]) Use to test blood sugar 1 times daily 1 kit Active Alcohol Swabs 70 % padsIndications:Type 2 diabetes mellitus without complication, without long-term current use of insulin ([facility]) Use to test blood sugar 1 times daily 100 each 11 Active FREESTYLE LITE test stripIndications:Type 2 diabetes mellitus without complication, without long-term current use of insulin ([facility]) Use to test blood sugar 1 times daily 100 each 025 11/26 Active Lancets miscIndications:Type 2 diabetes mellitus without complication, without long-term current use of insulin ([facility]) Use to test blood sugar 1 times daily 100 each Active Blood Glucose Monitoring Suppl (FreeStyle [place] Lite) w/Device kitIndications:Type 2 diabetes mellitus without complication, without long-term current use of insulin ([facility]) Use to test blood sugar 1 times daily 1 kit Active empagliflozin (Jardiance) 10 MGIndications:Type 2 diabetes mellitus without complication, without long-term current use of insulin ([facility]) Take 1 tablet (10 mg) by mouth Once per day. 30 tablet 025 11/26 Active glucose blood test stripIndications:Type 2 diabetes mellitus without complication, without long-term current use of insulin ([facility]) To use once a day 100 each 12 025 11/26 Active Lancet Devices (Autolet) lancing deviceIndications:Type 2 diabetes mellitus without complication, without long-term current use of insulin ([facility]) 1 each by Other route Once per day. 1 each 025 11/26 Active Blood Glucose Monitoring Suppl (OneTouch Verio) w/Device kitIndications:Type 2 diabetes mellitus without complication, without long-term current use of insulin ([facility]) 1 Units Once per day. 1 kit Active Diclofenac Sodium 1 % gelIndications:Muscle ache To apply to the affected area 3 times a day 100 g Active sulfamethoxazole-trime thoprim (Bactrim DS) 800-160 MG tabletIndications:Disc harge from wound Take 1 tablet by mouth 2 times daily for 7 days. 14 tablet 025 05/06 Active senna (Senokot) 8.6 MG tabletIndications:Irri table bowel syndrome with constipation Take 1 tablet (8.6 mg) by mouth at bedtime. 120 tablet 1 Active fluconazole (Diflucan) 150 MG tabletIndications:PV (pityriasis versicolor) 2 tabs once a week x 2 weeks. 4 tablet Active Icosapent Ethyl (Vascepa) 1 g capsuleIndications:Pur e hypercholesterolemia Take 2 capsules (2 g) by mouth with breakfast and with evening meal. 120 capsule 11 025 04/30 Active Linzess 290 MCG capsule Take 290 mcg by mouth in the morning. 022 04/29 Discontinued( Therapy completed) tiZANidine (Zanaflex) 4 MG tabletIndications:Acut e pain of right shoulder Take 1 tablet (4 mg) by mouth every 6 (six) hours if needed for muscle spasms for up to 10 days. 30 tablet 023 04/29 Discontinued( Therapy completed) baclofen (Lioresal) 10 MG tabletIndications:Musc le spasm Take 1 tablet (10 mg) by mouth 3 times daily for 10 days. 30 tablet 023 04/29 Discontinued( Therapy completed) nicotine (Nicoderm CQ) 21 MG/24HR patch Place 1 patch on the skin 1 (one) time each day at the same time. 30 patch 3 024 04/29 Discontinued( Therapy completed) fluconazole (Diflucan) 150 MG tabletIndications:PV (pityriasis versicolor) 2 tabs once a week x 2 weeks. 4 tablet 024 04/29 Discontinued( Reorder (will not trigger notification to Pharmacy)) azithromycin (Zithromax) 250 MG tablet Take (2) tabs 1st day; take (1) tab next 4 days. 6 tablet 025 04/29 Discontinued( Therapy completed) lisinopril 40 MG tablet TAKE 1 TABLET BY MOUTH EVERY DAY 30 tablet 11 025 04/29 Discontinued( Other) Active Problems Problem Noted Date Diagnosed Date [...] connected to a therapist and psychiatrist thru [facility]. At this time Nani Sears meets criteria for Visit Diagnoses: Problem List Items Addressed This Visit Other Major depressive disorder Anxiety disorder, unspecified Patient ready to address current needs Yes Patient has services in place. Strengths include her usage of coping skills PLAN: 1. Follow up with [facility] [place]: Not recommended for follow-up 2. Patient goal [...] Encounters Date Type Department Care Team Description 05/03/2025 Results Follow-Up [facility] [address] [place] [address] Joselin Reed RN Gram Stain Result 05/01/[address] [facility] [address] [place] [address] Ann-Marie Camacho MD Hypertension, unspecified type 04/30/2025 Results Follow-Up [facility] [address] [place] [address] Anay Schwartz RN Hepatic Function Panel, Ferritin, Lipid Panel, Standard, Additional followed-up results: 2 04/30/[address] [facility] [address] [place] [address] Ann-Marie Camacho MD Transaminitis (Primary Dx); Pure hypercholesterolemia 04/29/2025 1:00 PM EDT Office Visit [facility] [address] [place] [address] Ann-Marie Camacho MD Irritable bowel syndrome with constipation (Primary Dx); Discharge from wound; PV (pityriasis versicolor) 04/29/[address] [facility] [address] [place] [address] Ann-Marie Camacho MD 04/29/2025 Travel 04/28/2025 Telephone [facility] [address] [place] [address] Ann-Marie Camacho MD Nurse Triage 04/20/2025 Orders Only GENERIC EXTERNAL DATA DEPARTMENT Provider, Generic External Data 03/24/[address] [facility] [address] [place] [address] Ann-Marie Camacho MD No Show 03/23/[address] [facility] [address] [place] [address] Ann-Marie Camacho MD Chart Prep 03/17/2025 Patient Outreach [facility] [address] [place] [address] Ann-Marie Camacho MD Pre-visit Planning (Pre visit planning LVM ) from Last 3 Months Immunizations Immunization Administration [...] Mouth 10/25/2024 10/24/2021 Diabetes: Hemoglobin A1C 02/25/2025 04 025, 08/31/2024, 05/12/2024, Additional history exists COVID-19 Vaccine (2024- season) 2025 01/12/2021, 12/14/2020 Influenza Vaccine (#1) 2025 06/26/2024 Zoster Vaccines (1 of 2) 2025 Alcohol/Substance Use Screening 11/05/2025 11/05/2024 Disability Screening 11/05/2025 11/05/2024 SDOH Screening 11/05/2025 11/05/2024 Dental X-Ray: Bitewings 11/17/2025 11/17/19 25, 10/06/2024, 10/24/2021 Depression Screening 11/26/2025 11/26/2024, 11/27/19 Lipid Panel 04/29/2026 04/29/2025, 11/25, 07/13/2024, Additional history exists Tobacco Screening 04/29/2026 04/29/2025 Mammogram 07/03/2026 07/03/2024 [...] Procedure Name Priority Date/Time Associated Diagnosis Comments URINALYSIS, COMPLETE, WITH REFLEX TO CULTURE Routine 04/29/2025 1:50 PM EDT Generalized abdominal pain IRON AND TOTAL IRON BINDING CAPACITY Routine 04/29/2025 1:45 PM EDT Transaminitis LIPID PANEL, STANDARD Routine 04/29/2025 1:45 PM EDT Transaminitis FERRITIN Routine 04/29/2025 1:45 PM EDT Transaminitis IMMUNOGLOBULINS, QUANTITATIVE, IGA, IGG, IGM Routine 04/29/2025 1:45 PM EDT Transaminitis HEPATIC FUNCTION PANEL Routine 04/29/2025 1:45 PM EDT Transaminitis Pure hypercholesterolemia GRAM STAIN RESULT (NON ORDERABLE) Routine 04/29/2025 1:26 PM EDT DRUG MONITOR, PANEL 1, SCREEN, URINE Routine 04/20/2025 1:20 PM EDT ETHANOL Routine 04/20/2025 1:11 PM EDT COMPREHENSIVE METABOLIC PANEL Routine 04/20/2025 1:11 PM EDT HCG, TOTAL, QN Routine 04/20/2025 1:11 PM EDT CBC WITH AUTO DIFFERENTIAL Routine 04/20/2025 1:11 PM EDT POCT GLYCATED HEMOGLOBIN, TOTAL Routine 11/26/2024 12:00 PM EDT Type 2 diabetes mellitus without complication, without long-term current use of insulin ([facility]) BITEWING - SINGLE RADIOGRAPHIC IMAGE Routine 11/16/2024 [...] Recently Relevant to Health Maintenance Results * Urinalysis, Complete, with Reflex to Culture (04/29/2025 1:50 PM EDT) Color Urine Yellow [facility] Appearance Urine Clear [facility] PH 7.5 5.0 - 9.0 [facility] Glucose Urine UA Negative Negative mg/dL [facility] Urine Blood Negative Negative [facility] Specific [place] - Urine <=1.005 1.005 - 1.025 [facility] Urine Protein Negative Neg-Trace mg/dL [facility] Urine Ketones Negative Negative mg/dL [facility] Nitrite Urine Negative Negative [facility] Leukocyte Esterase Urine Negative Negative [facility] RBC Urine 0-2 0 - 2 /HPF [facility] Urine WBC 0-5 0 - 5 /HPF [facility] Urine Squamous Epithelial Cell 0-2 0 - 2 /HPF [facility] Urine Bacteria None Seen None Seen [facility] Hyaline Casts, Urine 0-2 0 - 2 /LPF [facility] Urine 04/29/2025 1:50 PM EDT 04/29/2025 5:37 PM EDT Narrative [facility] - 04/29/2025 7:03 PM EDT 1343Urine, Clean Catch us Ann-Marie Camacho MD LAB URINE ORDERABLES Final Result Performing Organization Address [facility] Co de Phone Number [facility] [address] [place] [phone] * Iron And Total Iron Binding Capacity (04/29/2025 1:45 PM EDT) Pathologist [facility] Iron 55 30 - 160 mcg/dL [facility] Total Iron Binding Capacity 235 228 - 428 mcg/dL [facility] Percent Iron Saturation 23 15 - 50 % [facility] Unsaturated Iron Binding 180 ug/dL [facility] Blood Venous blood specimen / Unknown 04/29/2025 1:45 PM EDT 04/29/2025 5:52 PM EDT us Ann-Marie Camacho MD LAB BLOOD ORDERABLES Final Result Performing Organization Address [facility] de Phone Number [facility] [address] [place] [phone] * (ABNORMAL) Immunoglobulins Panel, Serum (04/29/2025 1:45 PM EDT) Pathologist [facility] IMMUNOGLOBULIN G 904 600 - 1640 mg/dL [facility] IMMUNOGLOBULIN A 225 47 - 310 mg/dL [facility] Immunoglobulin M 19(A) 50 - 300 mg/dL [facility] Comment:THIS TEST WAS PERFOR MED AT:[facility] [place] [phone] FOSS MD Blood Venous blood specimen / Unknown 04/29/2025 1:45 PM EDT 04/29/2025 5:52 PM EDT us Ann-Marie Camacho MD LAB BLOOD ORDERABLES Final Result Performing Organization Address [facility] Co de Phone Number [facility] [address] [place] [phone] * Ferritin (04/29/2025 1:45 PM EDT) Ferritin 32 10 - 250 ng/mL [facility] Blood Venous blood specimen / Unknown 04/29/2025 1:45 PM EDT 04/29/2025 5:52 PM EDT us Ann-Marie Camacho MD LAB BLOOD ORDERABLES Final Result [facility] [address] [place] [phone] * (ABNORMAL) Hepatic Function Panel (04/29/2025 1:45 PM EDT) Pathologist [facility] Bilirubin, Total 0.2 0.0 - 1.0 mg/dL [facility] Bilirubin, Direct <0.2 0.0 - 0.5 mg/dL [facility] Aspartate Amino Transferase 44(H) 5 - 31 U/L [facility] Alanine Aminotransferase 28 0 - 31 U/L [facility] Total Protein 7.3 6.5 - 8.0 g/dL [facility] Albumin Level 4.6 3.5 - 5.0 g/dL [facility] Alkaline Phosphatase 66 39 - 117 U/L [facility] Blood Venous blood specimen / Unknown 04/29/2025 1:45 PM EDT 04/29/2025 5:52 PM EDT us Ann-Marie Camacho MD LAB BLOOD ORDERABLES Final Result Performing Organization Address City/[facility]/ZIP Co de Phone Number [facility] [address] [place] [phone] * (ABNORMAL) Lipid Panel, Standard (04/29/2025 1:45 PM EDT) Triglycerides 544(H) <150 mg/dL [facility] Comment:Desirable Triglyceri de: less than 150 mg/dLBorderline High Triglyceride 150-199 mg/dLHigh Triglyceride: 200-499 mg/dLVery High Triglyceride: greater than or equal to 5OO mg/dL Cholesterol 263(H) <200 mg/dL [facility] Comment:Desirable Cholestero l: less than 200 mg/dLBorderline High Cholesterol: 200-239 mg/dLHigh Cholesterol: greater than 239 mg/dL LDL Cholesterol Calculated TNP <100 mg/dL [facility] Comment:Unable to calculate the LDL. The formula of Friedwald,Kothari, and Audrey is only valid if the triglycerides areless than 400 mg/dl. HDL Cholesterol 34(L) >40 mg/dL [facility] Comment:Desirable HDL: great er than 40 mg/dL Note: This HDL assay may give artificially low results in patients with liver disease. Blood Venous blood specimen / Unknown 04/29/2025 1:45 PM EDT 04/29/2025 5:52 PM EDT us Ann-Marie Camacho MD LAB BLOOD ORDERABLES Final Result Performing Organization Address [facility] Co de Phone Number [facility] [address] [place] [address] [phone] * Gram Stain Result (04/29/2025 1:26 PM EDT) 04/29/2025 1:26 PM EDT 04/29/2025 5:37 PM EDT Comment:Groin Narrative [facility] - 05/01/2025 1:01 PM EDT Gram stain results: 4+ polys 3+ epithelial cells 3+ red blood cells 1+ Gram-positive rods Routine Culture Report - external Routine Culture 3+ Mixed skin liam Strep agalactiae (Grp B) Quant Org ID 2+ Susc N/A Susceptibility not routinely performed on this isolate. Specimen Source: Groin us Ann-Marie Camacho MD HISTORICAL/NON ORDERABLE LA BS Final Result Performing Organization Address [facility] Co de Phone Number [facility] [address] [place] [phone] * (ABNORMAL) Drug Monitoring, Panel 1, Screen, Urine (04/20/2025 1:20 PM EDT) Opiate Screen Urine Not Detected Not Detect [facility] Comment:Opiate cut-off is 30 0 ng/mL.Positive results are unconfirmed and should not be used fornon-medical purposes. Barbiturates, Urine Not Detected Not Detect [facility] Comment:Barbiturate cut-off is 200 ng/mL.Positive results are unconfirmed and should not be used fornon-medical purposes. Phencyclidine Screen Urine Not Detected Not Detect [facility] Comment:Phencyclidine cut-of f is 25 ng/mL.Positive results are unconfirmed and should not be used fornon-medical purposes. Amphetamine Screen Urine Not Detected Not Detect [facility] Comment:Amphetamine cut-off is 1000 ng/mL.Positive results are unconfirmed and should not be used fornon-medical purposes. Benzodiazepines Screen Urine Not Detected Not Detect [facility] Comment:Benzodiazepine cut-o ff is 200 ng/mL.Positive results are unconfirmed and should not be used fornon-medical purposes. Cocaine Screen Urine Not Detected Not Detect [facility] Comment:Cocaine cut-off is 3 00 ng/mL.Positive results are unconfirmed and should not be used fornon-medical purposes. Cannabinoid Screen Urine POSITIVE(A) Not Detect [facility] Comment:Cannabinoid cut-off is 50 ng/mL.Positive results are unconfirmed and should not be used fornon-medical purposes. Methadone Screen, Urine Not Detected Not Detect ng/mL [facility] Comment:Methadone cut-off is 300 ng/mL.Positive results are unconfirmed and should not be used fornon-medical purposes. FENTANYL URINE Not Detected Not Detect [facility] Comment:Fentanyl cut-off is 1 ng/mL.Positive results are unconfirmed and should not be used fornon-medical purposes. Oxycodone Urine Screen Not Detected Not Detect ng/mL [facility] Comment:Oxycodone cut-off is 100 ng/mL.Positive results are unconfirmed and should not be used fornon-medical purposes. Buprenorphine Screen Not Detected Not Detect ng/mL [facility] Comment:Buprenorphine cut-of f is 5 ng/mL.Positive results are unconfirmed and should not be used fornon-medical purposes. 04/20/2025 1:20 PM EDT 04/20/2025 1:26 PM EDT Generic External Data Provider LAB URINE ORDERAB LES Final Result Performing Organization Address City/[facility]/ZIP Co de Phone Number [facility] [address] [place] [phone] * Ethanol (04/20/2025 1:11 PM EDT) ETHANOL (MG/DL) IN SER/PLAS <10 mg/dL [facility] Comment:Serum/plasma ethanol results are to be used formedical/treatment purposes only. 04/20/2025 1:11 PM EDT 04/20/2025 1:13 PM EDT Generic External Data Provider LAB BLOOD ORDERAB LES Final Result Performing Organization Address [facility] Co de Phone Number [facility] [address] [place] [phone] * (ABNORMAL) CBC auto differential (04/20/2025 1:11 PM EDT) White Blood Count 10.5 4.8 - 10.8 X10*3/uL [facility] Red Blood Count 4.17(L) 4.20 - 5.50 X10*6/uL [facility] Hemoglobin 12.6 12.0 - 16.0 g/dl [facility] Hematocrit 38.0 37.0 - 47.0 % [facility] Mean Corpuscular Volume 91.1 80.0 - 98.0 fL [facility] Mean Corpuscular Hemoglobin 30.2 27.0 - 33.0 pg [facility] Mean Corpuscular HGB Conc 33.2 31.0 - 35.0 g/dl [facility] Red Cell Distribution Width 13.1 11.0 - 16.0 % [facility] Platelet Count 223 160 - 400 X10*3/uL [facility] Mean Platelet Volume 9.3(L) 9.4 - 12.3 fL [facility] Neutrophils Percent Auto 73.4(H) 45 - 73 % [facility] Imm Gran Pct Auto 0.5(H) 0.0 - 0.4 % [facility] Lymphocytes Percent Auto 22.2 20 - 40 % [facility] Monocytes Percent Auto 3.8 2 - 11 % [facility] Eosinophils Percent Auto 0.0 0 - 4 % [facility] Basophils Percent Auto 0.1 0 - 2 % [facility] NRBC Pct Auto 0.0 0.0 - 0.2 /100WBC [facility] Neutrophils Absolute Auto 7.7 2.0 - 8.3 x10*3/uL [facility] Imm Gran Abs Auto 0.05(H) 0.00 - 0.03 X10*3/uL [facility] Lymphocytes Absolute Auto 2.3 1.2 - 4.9 X10*3/uL [facility] Monocytes Absolute Auto 0.4 0.1 - 1.2 X10*3/uL [facility] Eosinophils Absolute Auto 0.0 0.0 - 0.4 X10*3/uL [facility] Basophils Absolute Auto 0.0 0.0 - 0.2 X10*3/uL [facility] NRBC Abs Auto 0.000 0.0 - 0.012 X10*3/uL [facility] 04/20/2025 1:11 PM EDT 04/20/2025 1:13 PM EDT us Generic External Data Provider LAB BLOOD ORDERAB LES Final Result [facility] [address] [place] [phone] * hCG, Total, Quantitative (04/20/2025 1:11 PM EDT) Pathologist [facility] HCG Quantitative 5 mIU/mL [facility] Comment:Weeks post LMP Appro ximate hCG(Last Menstrual Period) Range (mIU/ml)3 - 4 weeks 9 - 1304 - 5 weeks 75 - 2,6005 - 6 weeks 850 - 20,8006 - 7 weeks 4000 - 100,2007 - 12 weeks 11,500 - 289,[phone] - 16 weeks 18,300 - 137,91839 - 29 weeks (2nd trimester) 1,400 - 53,47189 - 41 weeks (3rd trimester) 940 - [...] Provider LAB BLOOD ORDERAB LES Final Result [facility] [address] [place] [phone] * (ABNORMAL) Comprehensive Metabolic Panel (04/20/2025 1:11 PM EDT) Sodium 141 135 - 145 mmol/L [facility] Potassium 3.8 3.3 - 5.1 mmol/L [facility] Chloride 106 96 - 108 mmol/L [facility] Carbon Dioxide 23 22 - 29 mmol/L [facility] Anion Gap 16 12 - 20 [facility] Urea Nitrogen (BUN) 13 9 - 16 mg/dL [facility] Creatinine, Serum 0.70 0.5 - 1.4 mg/dL [facility] Creatinine Clr Calc Pharmacy 137.7 [facility] Comment:Provided height and weight: 170.18 cm,131.995 kg.eGFR (calculated from the MDRD study equation) and eCrCl(calculated from the Cockcroft-Gault equation) are based ondifferent parameters and may not yield comparable results.If eCrCl result is absurd, please check patient'sheight/weight. Estimated Glomerular Filt Rate >60 [facility] Comment:Chronic Kidney Disea se: Estimated GFR < 60 mL/min/1.71t9Fayrbj Kidney Disease: Estimated GFR < 15 mL/min/1.73m2 Glucose 170(H) 60 - 115 mg/dL [facility] Calcium 9.2 8.4 - 10.2 mg/dL [facility] Bilirubin, Total 0.2 0.0 - 1.0 mg/dL [facility] Aspartate Amino Transferase 21 5 - 31 U/L [facility] Alanine Aminotransferase 34(H) 0 - 31 U/L [facility] Total Protein 6.7 6.5 - 8.0 g/dL [facility] Albumin Level 4.3 3.5 - 5.0 g/dL [facility] Alkaline Phosphatase 63 39 - 117 U/L [facility] 04/20/2025 1:11 PM EDT 04/20/2025 1:13 PM EDT us Generic External Data Provider LAB BLOOD ORDERAB LES Final Result Performing Organization Address City/State/[facility] Co de Phone Number [facility] [address] [place] [phone] * (ABNORMAL) POCT HGB A1C (11/26/2024 12:00 PM EDT) Hemoglobin A1C 7.0(A) 4.0 - 6.0 % QC Media Lot # [id number] Lot# Expiration Date [id number] Blood 11/26/2024 12:0 0 PM EDT us Ann-Marie Camacho MD POINT OF CARE TEST ENTER/ED IT ORDERABLES Final Result * Pap Smear (07/14/2024 10:44 AM EST) Swab 07/14/2024 10:4 4 AM EST 07/15/2024 9:15 AM EST Narrative [facility] - 07/17/2024 9:28 AM EST ----- ------- Name: Nani Sears Age/Sex: 49/F : 1975 Unit#: [id number] Attend Dr: Dulce Marvin MD Re07/14/24 Status: [facility] REF Location: [facility] Disch: ----- ------- SPEC : [id number] RECD: 07/15/24 STATUS: REAGAN MARTINEZ NUM: [id number] CANDELARIO: 07/14/24-[address] [facility] [address]: Dulce Marvin MD ENTERED: 07/15/24-1106 SP TYPE: Pap Smr OT DR: ORDERED: Pap Smear Interpretation Satisfactory for evaluation. Negative for intraepithelial lesion or malignancy. HPV High Risk: Negative HPV Genotyping 16: Negative HPV Genotyping 18: Negative Clinical Information LMP: Postmenopausal Previous PAP test: Unknown date, +hrHPV Material Received ThinPrep-Cervical ----- ------- Signed (signature on file) EVGENY Muñoz (ASCP) 07/17/24 0928 ----- ------- END OF REPORT us Dulce Marvin MD LAB CYTOLOGY ORDERABLES Final Result Performing Organization Address [facility] de Phone Number [facility] [address] [place] [address] [phone] * HPV mRNA E6/E7 w/Reflex to HPV Genotypes 16, 18/45 (07/14/2024 12:00 AM EST) Historical Provider LAB CYTOLOGY ORDERABLES F inal Result Performing Organization Address [facility] de Phone Number [facility] [address] [place] [address] [phone] * Hepatitis C Antibody with Reflex to HCV, RNA, Quantitative, Real-Time PCR (07/13/2024 11:36 AM EST) Hepatitis C Antibody Nonreactive Nonreactive [facility] Comment:Antibodies to HCV no t detected; does not exclude early acuteHCV infection. Blood Venous blood specimen / Unknown 07/13/2024 11:36 AM EST 07/13/2024 11:36 AM EST us Ann-Marie Camacho MD LAB BLOOD ORDERABLES Final Result Performing Organization Address [facility] de Phone Number [facility] [address] [place] [address] [phone] * BI Mammogram Screening Tomosynthesis Bilateral [...] Most Recently Relevant to Health Maintenance Insurance [facility] PPO [facility] MEDICARE REPLACEMENT [facility] Care Teams Special Technical Operations Officer Relationship Specialty Start Date End Date Ann-Marie Camacho MD [address] [place] [address] LEILA Kam [phone] PCP - General Internal Medicine 02/23/21
--- OUTSIDE RECORDS SUMMARY | 2025-05-03 14:23 | XMS_ITS | Encounter Summary ---
Author Organization [employer] Address [address] [facility] 7t [place] [address] Care Team Providers Care Sleeve Setter Name Role Phone Ann-Marie Camacho MD Primary Care Provider [phone] Reason for Visit * Reason Onset Date Comments Results 05/03/2025 Encounter Details Date Type Department Care Team ([facility] st Contact Info) Description 05/03/2025 Results Follow-Up [facility] [address] [place], [place] [phone] Joselin Reed RN Gram Stain Result Social History Tobacco Use Types Packs/Day Years [...] encounter Miscellaneous Notes * Telephone Encounter - Joselin Reed RN - 05/03/2025 9:41 AM EDT TC to pt to review results. Pt stated that wound is getting better, is draining serous to serosanguinous drainage, denies purulent drainage. Per provider recommendation, advised for pt to discontinueABT and use warm compresses. Advised pt to contact office if wound worsens. Pt verbalized understanding and agreement with plan. * Telephone Encounter - Joselin Reed RN - 05/03/2025 9:41 AM EDT ----- Message from Ann-Marie Camacho MD sent at 05/01/2025 3:41 PM EDT ----- Please call. The specimen shows mixed skin liam. Please find out if patient is doing better. If the lesion of the groin has improved, she can stop the antibiotics and just continue with the warm compresses. ----- Message ----- From: Interface, Lab Results In Sent: 04/30/2025 10:06 AM EDT To: Ann-Marie Camacho MD documented in this encounter Plan of Treatment Not on file documented as of this encounter Visit Diagnoses Not on filedocumented in this encounter Additional Health Concerns Assessment Noted Time PHQ-9 Depression Total Score: 0 11/27/19 25 11:30 AM EDT documented as of this encounter Care Teams Sleeve Setter Relationship Specialty Start Date End Date Ann-Marie Camacho MD [address] [place] [address] PCP - General Internal Medicine 02/23/21 documented as of this encounter
--- OUTSIDE RECORDS SUMMARY | 2025-05-03 14:23 | XMS_ITS | Encounter Summary ---
Author Organization [employer] Address [address] [facility] 7t [place] [address] Care Team Providers Care Microsoft Bi Architect Name Role Phone Ann-Marie Camacho MD Primary Care Provider [phone] Encounter Details Date Type Department Care Team (Late st Contact Info) Description 01/21/2025 Orders Only [facility] [address] [place] [address] ProviderRoseanna MD Social History Tobacco Use Types [...] documented as of this encounter Care Teams Microsoft Bi Architect Relationship Specialty Start Date End Date Ann-Marie Camacho MD [address] [place] [address] PCP - General Internal Medicine 02/23/21 documented as of this encounter
--- OUTSIDE RECORDS SUMMARY | 2025-05-03 14:23 | XMS_ITS | Encounter Summary ---
Author Organization [employer] Address 75 [facility] 7 [place] [address] Care Team Providers Care Bonding Supervisor Name Role Phone Ann-Marie Camacho MD Primary Care Provider [phone] Reason for Referral * Imaging (Routine) - Authorized Specialty Diagnoses / Procedures Referred By Millicent moore Referred To Contact Radiology Diagnoses Transaminitis Procedures US Abdomen Comp w elastography Ann-Marie Camacho MD [address] [place] [address] Phone: tel: fax: [address] Phone: tel: fax: Referral ID Status Reason Start Date Expiration Date V isits Requested Visits Authorized [id number] Authorized 04/30/2025 04/30/2026 1 1 Encounter Details Date Type Department Care Team (Latest Contact Info) Description 04/30/2025 Orders Only [facility] [address] [place], [place] [phone] Ann-Marie Camacho MD [address] [place], [place] [phone] Transaminitis (Primary Dx); Pure hypercholesterolemia Social History [...] Type Priority Associated Diagnoses Orde r Schedule Hepatitis B Surface Antibody, Qualitative Lab Routine Transaminitis Expected: 04/30/2025 (Approximate), Expires: 04/30/2026 US Abdomen Comp w elastography Imaging Routine Transaminitis Expected: 04/30/2025, Expires: 04/30/2026 Smooth Muscle Antibody with Reflex to Titer Lab Routine Transaminitis Expected: 04/30/2025 (Approximate), Expires: 04/30/2026 Immunoglobulins, Quantitative, IgA, IgG, IgM Lab Routine Transaminitis Expected: 04/30/2025 (Approximate), Expires: 04/30/2026 Prothrombin Time-INR Lab Routine Transaminitis Expected: 04/30/2025, Expires: 04/30/2026 Alpha 1 Antitrypsin Lab Routine Transaminitis Expected: 04/30/2025 (Approximate), Expires: 04/30/2026 Hepatitis C Antibody with Reflex to HCV, RNA, Quantitative, Real-Time PCR Lab Routine Transaminitis Expected: 04/30/2025, Expires: 04/30/2026 documented as of this encounter Visit Diagnoses Diagnosis Transaminitis- Primary Nonspecific elevation of levels of transaminase or lactic acid dehydrogenase (LDH) Pure hypercholesterolemia documented in this encounter Additional Health Concerns Assessment Noted Time PHQ-9 Depression Total Score: 0 11/27/19 25 11:30 AM EDT documented as of this encounter Care Teams Bonding Supervisor Relationship Specialty Start Date End Date Ann-Marie Camacho MD [address] [place] [phone] PCP - General Internal Medicine 02/23/21 documented as of this encounter
--- OUTSIDE RECORDS SUMMARY | 2025-05-03 14:23 | XMS_ITS | Encounter Summary ---
Author Organization [employer] Address [address] [facility] 7 [place] [address] Care Team Providers Care Steam Engineer Name Role Phone Ann-Marie Camacho MD Primary Care Provider [phone] Reason for Visit * Reason Comments Med Refill Encounter Details Date Type Department Care Team ([facility] st Contact Info) Description 10/23/2022 Refill [facility] [address] [place] [address] Ann-Marie Camacho MD [address] [place], [place] [phone] Type 2 diabetes mellitus without complication, without [...] documented as of this encounter Care Teams Steam Engineer Relationship Specialty Start Date End Date Ann-Marie Camacho MD [address] [place] [phone] PCP - General Internal Medicine 02/23/21 documented as of this encounter
--- OUTSIDE RECORDS SUMMARY | 2025-05-03 14:23 | XMS_ITS | Encounter Summary ---
Author Organization [employer] Address [address] [facility] 7t [place] [address] Care Team Providers Care Hazardous Material Technician Name Role Phone Ann-Marie Camacho MD Primary Care Provider [phone] Reason for Visit * Reason Comments Med Refill Encounter Details Date Type Department Care Team ([facility] Contact Info) Description 05/01/[address] [facility] [address] [place], [place] [phone] Ann-Marie Camacho MD [address] [place], [place] [phone] Hypertension, unspecified type Social History Tobacco Use Types Packs/Day Years [...] as of this encounter Visit Diagnoses Diagnosis Hypertension, unspecified type documented in this encounter Additional Health Concerns Assessment Noted Time PHQ-9 Depression Total Score: 0 11/27/19 25 11:30 AM EDT documented as of this encounter Care Teams Hazardous Material Technician Relationship Specialty Start Date End Date Ann-Marie Camacho MD [address] [place] [address] PCP - General Internal Medicine 02/23/21 documented as of this encounter
--- OUTSIDE RECORDS SUMMARY | 2025-05-03 14:23 | XMS_ITS | Encounter Summary ---
Author Organization [employer] Address [address] [facility] 7t [place] [address] Care Team Providers Care Reporting Developer Name Role Phone Ann-Marie Camacho MD Primary Care Provider [phone] Encounter Details Date Type Department Care Team ([facility] st Contact Info) Description 11/22/2022 Orders Only [facility] [address] [place], [place] [phone] Ann-Marie Camacho MD [address] [place], [place] [phone] Acute pain of right shoulder (Primary Dx) [...] documented as of this encounter Care Teams Reporting Developer Relationship Specialty Start Date End Date Ann-Marie Camacho MD [address] [place] [address] PCP - General Internal Medicine 02/23/21 documented as of this encounter
--- OUTSIDE RECORDS SUMMARY | 2025-05-03 14:23 | XMS_ITS | Encounter Summary ---
Author Organization [employer] Address [address] [facility] 7t [place] [address] Care Team Providers Care Personal Care Attendant Name Role Phone Ann-Marie Camacho MD Primary Care Provider [phone] Encounter Details Date Type Department Care Team (Latest Contact Info) Description 12/22/2024 Orders Only [facility] [address] [place], [place] [phone] Ann-Marie Camacho MD [address] [place], [place] [phone] Transaminitis (Primary Dx); Pure hypercholesterolemia Social History [...] Type Priority Associated Diagnoses Orde r Schedule Smooth Muscle Antibody with Reflex to Titer Lab Routine Transaminitis Expected: 12/22/2024 (Approximate), Expires: 12/22/2025 IVANA Screen,IFA, with Reflex to Titer and Pattern Lab Routine Transaminitis Expected: 12/22/2024 (Approximate), Expires: 12/22/2025 documented as of this encounter Procedures Procedure Name Priority Date/Time Associated Diagnosis Comments IRON AND TOTAL IRON BINDING CAPACITY Routine 04/29/2025 1:45 PM EDT Transaminitis IMMUNOGLOBULINS, QUANTITATIVE, IGA, IGG, IGM Routine 04/29/2025 1:45 PM EDT Transaminitis FERRITIN Routine 04/29/2025 1:45 PM EDT Transaminitis HEPATIC FUNCTION PANEL Routine 04/29/2025 1:45 PM EDT Transaminitis Pure hypercholesterolemia LIPID PANEL, STANDARD Routine 04/29/2025 1:45 PM EDT Transaminitis documented in this encounter Results * Iron And Total Iron Binding Capacity (04/29/2025 1:45 PM EDT) Iron 55 30 - 160 mcg/dL [facility] Total Iron Binding Capacity 235 228 - 428 mcg/dL [facility] Percent Iron Saturation 23 15 - 50 % [facility] Unsaturated Iron Binding 180 ug/dL [facility] Blood Venous blood specimen / Unknown 04/29/2025 1:45 PM EDT 04/29/2025 5:52 PM EDT us Ann-Marie Camacho MD LAB BLOOD ORDERABLES Final Result Performing Organization Address City/[facility]/ZIP Co de Phone Number [facility] [address] [place] [phone] * (ABNORMAL) Lipid Panel, Standard (04/29/2025 1:45 PM EDT) Triglycerides 544(H) <150 mg/dL [facility] Comment:Desirable Triglyceri de: less than 150 mg/dLBorderline High Triglyceride 150-199 mg/dLHigh Triglyceride: 200-499 mg/dLVery High Triglyceride: greater than or equal to 5OO mg/dL Cholesterol 263(H) <200 mg/dL [facility] Comment:Desirable Cholestero l: less than 200 mg/dLBorderline High Cholesterol: 200-239 mg/dLHigh Cholesterol: greater than 239 mg/dL LDL Cholesterol Calculated TNP <100 mg/dL [facility] Comment:Unable to calculate the LDL. The formula of Friedwald,Kothari, and Audrey is only valid if the triglycerides areless than 400 mg/dl. HDL Cholesterol 34(L) >40 mg/dL [facility] Comment:Desirable HDL: great er than 40 mg/dL Note: This HDL assay may give artificially low results in patients with liver disease. Blood Venous blood specimen / Unknown 04/29/2025 1:45 PM EDT 04/29/2025 5:52 PM EDT us Ann-Marie Camacho MD LAB BLOOD ORDERABLES Final Result Performing Organization Address [facility]/ZIP Co de Phone Number [facility] [address] [place] [phone] * Ferritin (04/29/2025 1:45 PM EDT) Pathologist [facility] Ferritin 32 10 - 250 ng/mL [facility] Blood Venous blood specimen / Unknown 04/29/2025 1:45 PM EDT 04/29/2025 5:52 PM EDT Ann-Marie Camacho MD LAB BLOOD ORDERABLES Final Result Performing Organization Address [facility] Co de Phone Number [facility] [address] [place] [phone] * (ABNORMAL) Immunoglobulins Panel, Serum (04/29/2025 1:45 PM EDT) [facility] IMMUNOGLOBULIN G 904 600 - 1640 mg/dL [facility] IMMUNOGLOBULIN A 225 47 - 310 mg/dL [facility] Immunoglobulin M 19(A) 50 - 300 mg/dL [facility] Comment:THIS TEST WAS PERFOR MED AT:[employer] [place] [phone] FOSS MD Blood Venous blood specimen / Unknown 04/29/2025 1:45 PM EDT 04/29/2025 5:52 PM EDT us Ann-Marie Camacho MD LAB BLOOD ORDERABLES Final Result Performing Organization Address [facility] de Phone Number [facility] [address] [place] [phone] * (ABNORMAL) Hepatic Function Panel (04/29/2025 1:45 PM EDT) Pathologist [facility] Bilirubin, Total 0.2 0.0 - 1.0 mg/dL [facility] Bilirubin, Direct <0.2 0.0 - 0.5 mg/dL [facility] Aspartate Amino Transferase 44(H) 5 - 31 U/L [facility] Alanine Aminotransferase 28 0 - 31 U/L [facility] Total Protein 7.3 6.5 - 8.0 g/dL [facility] Albumin Level 4.6 3.5 - 5.0 g/dL [facility] Alkaline Phosphatase 66 39 - 117 U/L [facility] Blood Venous blood specimen / Unknown 04/29/2025 1:45 PM EDT 04/29/2025 5:52 PM EDT Ann-Marie Camacho MD LAB BLOOD ORDERABLES Final Result [facility] [address] [place] [phone] documented in this encounter Visit Diagnoses Diagnosis Transaminitis- Primary Nonspecific elevation of levels of transaminase or lactic acid dehydrogenase (LDH) Pure hypercholesterolemia documented in this encounter Additional Health Concerns Assessment Noted Time PHQ-9 Depression Total Score: 0 11/27/19 25 11:30 AM EDT documented as of this encounter Care Teams Personal Care Attendant Relationship Specialty Start Date End Date Ann-Marie Camacho MD [address] [place] [phone] PCP - General Internal Medicine 02/23/21 documented as of this encounter
--- OUTSIDE RECORDS SUMMARY | 2025-05-03 14:23 | XMS_ITS | Clinical Summary ---
Author Organization [facility] Facility Address [address] [address] Care Team Providers Care Supervisor Blood Name Role Phone Ann-Marie Camacho MD Primary Care Provider [phone] Allergies Active Allergy Reactions Criticality Noted Date Comments Carbamazepine 01/02/2022 Cariprazine 01/02/2022 Lamotrigine Rash Low 01/02/2022 Ney Other (see comments) 01/02/2022 Penicillins Shortness of [...] Influenza Vaccine (#1) 2025 Insurance Generic Commercial [facility] Medicare Generic Commercial Care Teams Supervisor Blood Relationship Specialty Start Date End Date Ann-Marie Camacho MD [address] [place] [address] PCP - General Internal Medicine 07/14/21
--- OUTSIDE RECORDS SUMMARY | 2025-05-03 14:23 | XMS_ITS | Encounter Summary ---
Author Organization [employer] Address [address] [place] [address] 7 [place] [address] Care Team Providers Care Route Driver Name Role Phone Ann-Marie Camacho MD Primary Care Provider [phone] Reason for Referral * Consultation (Routine) - Authorized Specialty Diagnoses / Procedures Referred By Millicent moore Referred To Contact Nutrition Diagnoses Type 2 diabetes mellitus without complication, without long-term current use of insulin ([facility]) Mixed hyperlipidemia Ann-Marie Camacho MD [address] [place] [address] Phone: tel: fax: Referral ID Status Reason Start Date Expiration Date Visits Requested Visits Authorized [id number] Authorized Consult and Treat 04/30/2025 04/30/2026 1 1 Reason for Visit * Reason Onset Date Comments Results 04/30/2025 Lab Orders 04/30/2025 Referral 04/30/2025 Encounter Details Date Type Department Care Team ([facility] Contact Info) Description 04/30/2025 Results Follow-Up [facility] CH[facility] MED & PEDS [address] [place], [place] [phone] Anay Schwartz RN Hepatic Function Panel, Ferritin, Lipid Panel, Standard, Additional followed-up results: 2 Social History Tobacco Use Types Packs/Day Years [...] encounter Miscellaneous Notes * Telephone Encounter - Peyton Taylor RN - 05/03/2025 9:26 AM EDT I recommend Vascepa. The mainstay of the treatment is to decrease the use of refined sugar and to remain as active as tolerated. TC placed to pt who states she is coming to the health center today to repeat some labs however pt has not picked up Rx for Vascepa. Encouraged pt to lease picker medication, decrease sugar intake and increase exercise. * Telephone Encounter - Peyton Taylor RN - 05/03/2025 9:24 AM EDT ----- Message from Ann-Marie Camacho MD sent at 04/30/2025 4:38 PM EDT ----- ----- Message ----- From: Interface, Lab Results In Sent: 04/29/2025 6:47 PM EDT To: Ann-Marie Camacho MD * Telephone Encounter - Anay Schwartz RN - 04/30/2025 11:50 AM EDT TC to pt. RN explained message below. Pt verbalized understanding and states she will come to [facility] for the blood work. Pt states that she has been told she has a fatty liver in the past, if that is a reason that could elevate her enzymes. RN educated pt that it could be a reason, but it is best to check everything out. Pt worried about her sugar levels and triglycerides, as she can see her blood work on Mychart. Pt would like to know if there was a way that she could have a referral to dietitian because she is allergic to statins and already taking red yeast rice. RN states she can make that referral and goes over lifestyle changes and low cholesterol diet with pt. Pt verbalized understanding and agreement with the plan of care. ----- Message from Ann-Marie Camacho MD sent at 04/30/2025 9:46 AM EDT ----- Please inform Mrs. Felicia Fletcher that she has mild elevation of 1 liver enzymes. Needs a liver elastography for further characterization. She also needs to complete the workup for her transaminitis. ----- Message ----- From: Interface, Lab Results In Sent: 04/29/2025 6:47 PM EDT To: Ann-Marie Camacho MD documented in this encounter Plan of Treatment Scheduled Referrals Name Type Priority Associated Diagnoses Orde r Schedule Referral to Nutrition Therapy Outpatient Referral Routine Type 2 diabetes mellitus without complication, without long-term current use of insulin ([facility]) Mixed hyperlipidemia Expected: 04/30/2025 (Approximate), Expires: 04/30/2026 documented as of this encounter Visit Diagnoses Diagnosis Mixed hyperlipidemia- Primary Type 2 diabetes mellitus without complication, without long-term current use of insulin ([facility]) documented in this encounter Additional Health Concerns Assessment Noted Time PHQ-9 Depression Total Score: 0 11/27/19 25 11:30 AM EDT documented as of this encounter Care Teams Route Driver Relationship Specialty Start Date End Date Ann-Marie Camacho MD [address] [place] [address] PCP - General Internal Medicine 02/23/21 documented as of this encounter
--- OUTSIDE RECORDS SUMMARY | 2025-05-03 14:23 | XMS_ITS | Encounter Summary ---
Author Organization [employer] Address [address] [facility] 7t [place] [address] Care Team Providers Care Locksmith Apprentice Name Role Phone Ann-Marie Camacho MD Primary Care Provider [phone] Encounter Details Date Type Department Care Team (Latest Contact Info) Description 10/24/2021 Abstract [facility] CONVERSIONS Dental, Provider, DDS Social History [...] on filedocumented in this encounter Care Teams Locksmith Apprentice Relationship Specialty Start Date End Date Ann-Marie Camacho MD [address] [place] [address] PCP - General Internal Medicine 02/23/21 documented as of this encounter
--- OUTSIDE RECORDS SUMMARY | 2025-05-03 14:23 | XMS_ITS | Encounter Summary ---
Author Organization [employer] Address [address] [facility] 7t [place] [address] Care Team Providers Care Two Needle Machine Operator Name Role Phone Ann-Marie Camacho MD Primary Care Provider [phone] Encounter Details Date Type Department Care Team ([facility] st Contact Info) Description 11/26/2024 Orders Only [facility] CHC MED & PEDS [address] [place], [place] [phone] Ann-Marie Camacho MD [address] [place], [place] [phone] Type 2 diabetes mellitus without complication, without [...] complication, without long-term current use of insulin ([facility])- Primary documented in this encounter Additional Health Concerns Assessment Noted Time PHQ-9 Depression Total Score: 0 11/27/19 25 11:30 AM EDT documented as of this encounter Care Teams Two Needle Machine Operator Relationship Specialty Start Date End Date Ann-Marie Camacho MD [address] [place] [address] [place] [address] PCP - General Internal Medicine 02/23/21 documented as of this encounter
--- OUTSIDE RECORDS SUMMARY | 2025-05-03 14:24 | XMS_ITS | Encounter Summary ---
Author Organization [employer] Address [address] [facility] 7t [place] [address] Care Team Providers Care Flavoring Maker Name Role Phone Ann-Marie Camacho MD Primary Care Provider [phone] Encounter Details Date Type Department Care Team (Late st Contact Info) Description 06/25/2024 Orders Only [facility] [address] [place] [address] ProviderRoseanna MD Social History Tobacco Use Types [...] documented as of this encounter Care Teams Flavoring Maker Relationship Specialty Start Date End Date Ann-Marie Camacho MD [address] [place] [address] PCP - General Internal Medicine 02/23/21 documented as of this encounter
--- OUTSIDE RECORDS SUMMARY | 2025-05-03 14:24 | XMS_ITS | Encounter Summary ---
Author Organization [employer] Address [address] [facility] 7 [place] [address] Care Team Providers Care Customer Success Associate Name Role Phone Ann-Marie Camacho MD Primary Care Provider [phone] Reason for Visit * Reason Onset Date Comments Results 01/15/2024 FYI 01/15/2024 Encounter Details Date Type Department Care Team ([facility] st Contact Info) Description 01/15/2024 Telephone [facility] MEDICINE [address] [place] [address] Ann-Marie Camacho MD [address] [place], [place] [phone] Results; Social History Tobacco Use Types Packs/Day [...] as of this encounter Care Teams Customer Success Associate Relationship Specialty Start Date End Date Ann-Marie Camacho MD [address] [place] [address] PCP - General Internal Medicine 02/23/21 documented as of this encounter
--- OUTSIDE RECORDS SUMMARY | 2025-05-03 14:24 | XMS_ITS | Encounter Summary ---
Author Organization [employer] Address [address] [facility] 7t [place] [address] Care Team Providers Care Bird Cage Assembler Name Role Phone Ann-Marie Camacho MD Primary Care Provider [phone] Reason for Visit * Reason Comments Med Refill Encounter Details Date Type Department Care Team ([facility] st Contact Info) Description 12/17/2022 Refill [facility] CHC MED & PEDS [address] [place], [place] [phone] Ann-Marie Camacho MD [address] [place] [address] Social History Tobacco Use Types Packs/Day Years [...] documented as of this encounter Care Teams Bird Cage Assembler Relationship Specialty Start Date End Date Ann-Marie Camacho MD [address] [place] [address] PCP - General Internal Medicine 02/23/21 documented as of this encounter
--- OUTSIDE RECORDS SUMMARY | 2025-05-03 14:24 | XMS_ITS | Encounter Summary ---
Author Organization [employer] Address [address] [place] [address] 7 [place] [address] Care Team Providers Care Sane Rn Name Role Phone Ann-Marie Camacho MD Primary Care Provider [phone] Reason for Visit * Reason Onset Date Comments Error 10/22/2023 Encounter Details Date Type Department Care Team (Late st Contact Info) Description 10/22/2023 Telephone [facility] MEDICINE [address] [place] [address] Ann-Marie Camacho MD [address] [place], [place] [phone] Error Social History Tobacco Use Types Packs/Day [...] documented as of this encounter Care Teams Sane Rn Relationship Specialty Start Date End Date Ann-Marie Camacho MD [address] [place] [address] PCP - General Internal Medicine 02/23/21 documented as of this encounter
--- OUTSIDE RECORDS SUMMARY | 2025-05-03 14:24 | XMS_ITS | Clinical Summary ---
Author Organization [facility] [place] [address] Phone Care Team Providers Care Commercial Relief Driver Name Role Phone Ann-Marie Camacho MD Primary Care Provider [phone] Allergies Active Allergy Reactions Criticality Noted Date Comments Adhesive Rash Low 03/20/2023 Other Reaction(s): adhesive on patches-skin irritations Artichoke Rash Low 08/15/2022 artichoke Carbamazepine 01/02/2022 Other Reaction(s): MIGRAINES Cariprazine 01/02/2022 Other Reaction(s): LEG CRAMPS Clindamycin Other 11/19/2024 Reports when taking feels like throat enriquez Dicyclomine Hallucinations 09/16/2024 Fentanyl Rash Low 03/20/2023 Lamotrigine Rash Low 01/02/2022 Myrtle Other High 01/02/2022 Other Reaction(s): bad reaction [...] 08/15/2022 Benign essential hypertension 08/15/2022 Bipolar disorder ([facility] V24, [facility] V28) 122 08/2021 Hyperlipidemia 08/15/2022 Major depressive [...] syndrome 08/15/2022 Psychogenic pain 08/15/2022 Severe obesity ([facility] V24, [facility] V28) 2021 Somatization disorder 08/15/2022 Disease due [...] EDT - 03/20/2025 6:45 PM EDT Emergency [facility] Emergency [address] [place] [address] Tyrese Grover MD Fecal impaction ([facility] V24, [facility] V28) (Primary Dx) Discharge Disposition: Home or Self Care 03/14/2025 5:14 PM EDT - 03/14/2025 7:38 PM EDT Emergency [facility] Emergency [address] [place] [address] Indra Tejeda MD Intractable migraine without aura and with status migrainosus (Primary Dx) Discharge Disposition: Home or Self Care from Last 3 Months Immunizations Name Administration [...] Medical History Date Comments Hypertension Diabetes mellitus ([facility] V24, [facility] V28) Hypercholesteremia Depression Anxiety Gastroparesis Migraine Social [...] 03/20/2025 3:35 PM EDT Plan of Treatment Upcoming Encounters Date Type Department Care Team (Late st Contact Info) Description 2025 8:00 AM EDT Appointment [facility] Ultrasound [address] [place] [phone] 2025 8:30 AM EDT Appointment [facility] Ultrasound [address] [place] [phone] Health Maintenance Due Date Last Done Comments [...] LAB HEMETOLOGY METHOD 03/14/2025 5:48 PM EDT [facility] RBC 4.40 3.80 - 4.80 M/mcL LAB HEMETOLOGY METHOD 03/14/2025 5:48 PM EDT [facility] Hemoglobin 13.3 11.5 - 16.0 g/dL LAB HEMETOLOGY METHOD 03/14/2025 5:48 PM EDT [facility] Hematocrit 39.7 35.0 - 47.0 % LAB HEMETOLOGY METHOD 03/14/2025 5:48 PM EDT [facility] MCV 90.4 79.0 - 98.0 FL LAB HEMETOLOGY METHOD 03/14/2025 5:48 PM EDT [facility] MCH 30.3 27.0 - 32.0 pcg LAB HEMETOLOGY METHOD 03/14/2025 5:48 PM EDT [facility] MCHC 33.5 32.0 - 37.0 g/dL LAB HEMETOLOGY METHOD 03/14/2025 5:48 PM EDT [facility] RDW 13.2 11.0 - 15.0 % LAB HEMETOLOGY METHOD 03/14/2025 5:48 PM EDT [facility] Platelets 234 130 - 400 K/mcL LAB HEMETOLOGY METHOD 03/14/2025 5:48 PM EDT [facility] MPV 10.1 7.0 - 11.0 FL LAB HEMETOLOGY METHOD 03/14/2025 5:48 PM EDT [facility] NRBC 0.0 <1.0 % LAB HEMETOLOGY METHOD 03/14/2025 5:48 PM EDT [facility] NRBC Absolute 0.00 <0.10 K/mcL LAB HEMETOLOGY METHOD 03/14/2025 5:48 PM EDT [facility] Neutrophils Relative 62.3 % LAB HEMETOLOGY METHOD 03/14/2025 5:48 PM EDT [facility] Lymphocytes Relative 32.3 % LAB HEMETOLOGY METHOD 03/14/2025 5:48 PM EDT [facility] Monocytes Relative 4.9 % LAB HEMETOLOGY METHOD 03/14/2025 5:48 PM EDT [facility] Eosinophils Relative 0.1 % LAB HEMETOLOGY METHOD 03/14/2025 5:48 PM EDT [facility] Basophils Relative 0.1 % LAB HEMETOLOGY METHOD 03/14/2025 5:48 PM EDT [facility] Immature Granulocytes Relative 0.3 % LAB HEMETOLOGY METHOD 03/14/2025 5:48 PM EDT [facility] Neutrophils Absolute 6.45 1.50 - 7.00 K/mcL LAB HEMETOLOGY METHOD 03/14/2025 5:48 PM EDT [facility] Lymphocytes Absolute 3.35 1.00 - 5.00 K/mcL LAB HEMETOLOGY METHOD 03/14/2025 5:48 PM EDT [facility] Monocytes Absolute 0.51 0.20 - 1.00 K/mcL LAB HEMETOLOGY METHOD 03/14/2025 5:48 PM EDT [facility] Eosinophils Absolute 0.01 0.00 - 0.50 K/mcL LAB HEMETOLOGY METHOD 03/14/2025 5:48 PM EDT [facility] Basophils Absolute 0.01 0.00 - 0.20 K/mcL LAB HEMETOLOGY METHOD 03/14/2025 5:48 PM EDT [facility] Immature Granulocytes Absolute 0.03 0.00 - 0.03 K/mcL LAB HEMETOLOGY METHOD 03/14/2025 5:48 PM EDT [facility] Blood Venous blood specimen / Unknown Venipuncture / Unknown 03/14/2025 5:29 PM EDT 03/14/2025 5:33 PM EDT us Indra Tejeda MD LAB BLOOD ORDERABLES Final Resul t [facility] [address] [place] [address], * (ABNORMAL) Comprehensive metabolic panel (03/14/2025 5:29 PM EDT) Sodium 141 133 - 145 mmol/L LAB CHEMISTRY METHOD 03/14/2025 6:02 PM [facility] Potassium 3.8 3.5 - 5.5 mmol/L LAB CHEMISTRY METHOD 03/14/2025 6:02 PM [facility] Chloride 109 96 - 110 mmol/L LAB CHEMISTRY METHOD 03/14/2025 6:02 PM [facility] CO2 25 21 - 32 mmol/L LAB CHEMISTRY METHOD 03/14/2025 6:02 PM [facility] Anion Gap 7 3 - 11 LAB CHEMISTRY METHOD 03/14/2025 6:02 PM [facility] Glucose 120(H) 70 - 100 mg/dL LAB CHEMISTRY METHOD 03/14/2025 6:02 PM [facility] BUN 16 5 - 25 mg/dL LAB CHEMISTRY METHOD 03/14/2025 6:02 PM [facility] Creatinine 0.77 0.50 - 1.10 mg/dL LAB CHEMISTRY METHOD 03/14/2025 6:02 PM [facility] eGFR 95 >=60 mL/min/1. 73m2 LAB CHEMISTRY METHOD 03/14/2025 6:02 PM [facility] Comment:Calculation based on the Chronic Kidney Disease Epidemiology Collaboration (CKD-EPI) equation refit without adjustment for race. BUN/Creatinine Ratio 20.8 LAB CHEMISTRY METHOD 03/14/2025 6:02 PM [facility] Calcium 9.0 8.5 - 10.5 mg/dL LAB CHEMISTRY METHOD 03/14/2025 6:02 PM [facility] AST (SGOT) 23 10 - 42 unit/L LAB CHEMISTRY METHOD 03/14/2025 6:02 PM [facility] ALT (SGPT) 39 10 - 60 unit/L LAB CHEMISTRY METHOD 03/14/2025 6:02 PM EDT [facility] Alkaline Phosphatase 67 42 - 121 unit/L LAB CHEMISTRY METHOD 03/14/2025 6:02 PM EDT [facility] Total Protein 7.0 6.0 - 8.0 g/dL LAB CHEMISTRY METHOD 03/14/2025 6:02 PM EDT [facility] Albumin 3.8 3.2 - 5.0 g/dL LAB CHEMISTRY METHOD 03/14/2025 6:02 PM EDT [facility] Total Bilirubin 0.2 0.0 - 1.4 mg/dL LAB CHEMISTRY METHOD 03/14/2025 6:02 PM EDT [facility] Blood Venous blood specimen / Unknown Venipuncture / Unknown 03/14/2025 5:29 PM EDT 03/14/2025 5:33 PM EDT Indra Tejeda MD LAB BLOOD ORDERABLES Final Resul t [facility] [address] [place] [address], * COLONOSCOPY (03/02/2025 9:37 AM EDT) Anatomical Region Laterality Modality Endoscopy Historical Provider GI~PROCEDURE ORDERABLES F inal Result from Last 3 Months Insurance [employer] MEDICARE [facility] Care Teams Commercial Relief Driver Relationship Specialty Start Date End Date Ann-Marie Camacho MD [address] [place] [address] [place] [address] PCP - General Internal Medicine 11/16/24
--- OUTSIDE RECORDS SUMMARY | 2025-05-03 14:24 | XMS_ITS | Encounter Summary ---
Author Organization [employer] Address [address] [facility] 7t [place] [address] Care Team Providers Care Printing Machinist Name Role Phone Ann-Marie Camacho MD Primary Care Provider [phone] Encounter Details Date Type Department Care Team (Latest Contact Info) Description 07/13/[address] [facility] CHC MED & PEDS [address] [place], [place] [phone] Ann-Marie Camacho MD [address] [place], [place] [phone] Pure hypercholesterolemia (Primary Dx) Social History Tobacco [...] documented as of this encounter Care Teams Printing Machinist Relationship Specialty Start Date End Date Ann-Marie Camacho MD [address] [place] [address] PCP - General Internal Medicine 02/23/21 documented as of this encounter
--- OUTSIDE RECORDS SUMMARY | 2025-05-03 14:24 | XMS_ITS | Encounter Summary ---
Author Organization [employer] Address [address] [facility] 7t [place] [address] Care Team Providers Care Insurance Advisor Name Role Phone Ann-Marie Camacho MD Primary Care Provider [phone] Reason for Visit * Reason Onset Date Comments Nurse Triage 04/28/2025 Encounter Details Date Type Department Care Team (Late st Contact Info) Description 04/28/2025 Telephone [facility] MEDICINE [address] [place] [address] Ann-Marie Camacho MD [address] [place], [place] [phone] Nurse Triage Social History Tobacco Use Types [...] caller accepted this outcome. Contact pt at [phone] documented in this encounter Plan of Treatment Not on file documented as of this encounter Visit Diagnoses Not on filedocumented in this encounter Additional Health Concerns Assessment Noted Time PHQ-9 Depression Total Score: 0 11/27/19 25 11:30 AM EDT documented as of this encounter Care Teams Insurance Advisor Relationship Specialty Start Date End Date Ann-Marie Camacho MD [address] [place] [address] PCP - General Internal Medicine 02/23/21 documented as of this encounter
--- OUTSIDE RECORDS SUMMARY | 2025-05-03 14:24 | XMS_ITS | Clinical Summary ---
Author Organization [facility] Address [address] [place] [address] Phone Care Team Providers Care Spinning Supervisor Name Role Phone Unavailable Primary Care Provider [...] It is not the complete legal health record.[facility]
--- OUTSIDE RECORDS SUMMARY | 2025-05-03 14:24 | XMS_ITS | Encounter Summary ---
Author Organization [employer] Address [address] [facility] [address] 7t [place] [address] Care Team Providers Care Production Tech Name Role Phone Ann-Marie Camacho MD Primary Care Provider [phone] Encounter Details Date Type Department Care Team [...] as of this encounter Care Teams Production Tech Relationship Specialty Start Date End Date Ann-Marie Camacho MD [address] [place] [address] PCP - General Internal Medicine 02/23/21 documented as of this encounter
--- OUTSIDE RECORDS SUMMARY | 2025-05-03 14:24 | XMS_ITS | Encounter Summary ---
Author Organization [employer] Address [address] [place] [address] 7 [place] [address] Care Team Providers Care Basket Maker Name Role Phone Ann-Marie Camacho MD Primary Care Provider [phone] Reason for Visit * Reason Comments Med Refill Encounter Details Date Type Department Care Team ([facility] st Contact Info) Description 03/17/2023 Refill [facility] CHC MED & PEDS [address] [place], [place] [phone] Ann-Marie Camacho MD [address] [place] [address] Social History Tobacco Use Types Packs/Day Years [...] documented as of this encounter Care Teams Basket Maker Relationship Specialty Start Date End Date Ann-Marie Camacho MD [address] [place] [address] PCP - General Internal Medicine 02/23/21 documented as of this encounter
--- OUTSIDE RECORDS SUMMARY | 2025-05-03 14:24 | XMS_ITS | Encounter Summary ---
Author Organization [employer] Address [address] [facility] 7t [place] [address] Care Team Providers Care Television Program Director Name Role Phone Ann-Marie Camacho MD Primary Care Provider [phone] Encounter Details Date Type Department Care Team ([facility] st Contact Info) Description 12/05/2022 Abstract [facility] MED & PEDS [address] [place], [place] [phone] Ann-Marie Camacho MD [address] [place] [address] Social History Tobacco Use Types Packs/Day Years [...] documented as of this encounter Care Teams Television Program Director Relationship Specialty Start Date End Date Ann-Marie Camacho MD [address] [place] [address] PCP - General Internal Medicine 02/23/21 documented as of this encounter
[2025-05-03 15:34] LABS: INTERNATIONAL NORM RATIO 0.9 (0.9-1.1); Prothrombin Time 10.2 SEC (10.9-12.4)
[2025-05-04 04:22] LABS: HBS Num1 21.47 mIU/mL (0-7.99); ~HepC Num1 0.04 S/CO (0.00-0.79); ~Hepatitis B Surface Antibody REACTIVE (Nonreactive); ~Hepatitis C Antibody Nonreactive (Nonreactive)
== END 2025-05-03 11:48 | disposition home or self-care (01) ==
LOC: HO.CHCLDS 11:47
PROVIDERS: Visit Provider Internal Medicine
DX: R74.01 Elevation of levels of liver transaminase levels (principal); Z51.81 Encounter for therapeutic drug level monitoring; Z11.59 Encounter for screening for other viral diseases
CPT/HCPCS: 36415; 82784; 85610; 86706; 86803

== ENCOUNTER 2025-05-07 11:21 | Outpatient (REF) | payer BC, MEDICARE, SELFPAY | END 2025-05-07 11:22 | disposition home or self-care (01) | LOC: HO.CHCLDS 11:21 | PROVIDERS: PCP Internal Medicine; Visit Provider Internal Medicine | DX: R74.01 Elevation of levels of liver transaminase levels (principal) | CPT/HCPCS: 36415; 82103; 86015 ==

== ENCOUNTER 2025-05-21 16:15 | Outpatient (REF) | payer BC, MEDICARE, SELFPAY ==
--- OUTSIDE RECORDS SUMMARY | 2024-06-24 11:46 | XMS_ITS | Encounter Summary ---
Author Organization [facility] Address [address] [place] [address] Care Team Providers Care Reservations Clerk Name Role Phone Don Hudson MD Primary Care Provider Unavail able Encounter Details Date Type Department Care Team (Late st Contact Info) Description 06/24/2024 11:46 AM EDT Hospital Encounter TH HISTORIC ENCOUNTERS EASTERN CONVERSION ONLY Harsh Proctor MD Need updated address, phone and fax Social History Tobacco Use Types Packs/Day Years [...] AM EDT Narrative 06/24/2024 2:43 PM EDT [facility] Diagnostic Imaging Department [address] [place] [address] Patient: FELICIA SEARS /Age/Sex: 1975 - 49 - F Unit#: [id number] Location/Status: SPDIGEN/REG CLI Mnemonic/Ordering Site: [facility] Ordering [...] Procedure Note Anirudh Adkins MD - 06/27/2024 [facility] Diagnostic Imaging Department [address] [place] [id number] Patient: FELICIA SEARS /Age/Sex: 1975 - 49 - F Unit#: [id number] Location/Status: SPDIGEN/REG CLI Mnemonic/Ordering Site: [facility] Ordering Physician: HARSH PROCTOR MD DR [...] documented as of this encounter Care Teams Reservations Clerk Relationship Specialty Start Date End Date Don Hudson MD PCP - General 03/30/02 11/15/24 documented as of this encounter
--- OUTSIDE RECORDS SUMMARY | 2025-05-17 10:00 | XMS_ITS | Encounter Summary ---
Author Organization [employer] Address [address] [place] [address] Care Team Providers Care Fire Fighters Dispatcher Name Role Phone Ann-Marie Camacho MD Primary Care Provider [phone] Reason for Visit * Reason Comments Routine Cleaning Dental Exam Encounter Details Date Type Department Care Team ([facility] st Contact Info) Description 05/17/2025 10:00 AM EDT Office Visit [facility] ADULT [facility] [address] [place] [address] Chad Camacho Dental caries (Primary Dx) Social History Tobacco Use Types [...] Sign Reading Time Taken Comments Blood Pressure 136/76 05/17/2025 10:06 AM EDT Pulse 78 05/17/2025 10:06 AM EDT Temperature - - Respiratory Rate - - Oxygen Saturation - - Inhaled Oxygen Concentration - - Weight - - Height - - Body Mass Index - - documented in this encounter Progress Notes * Chad Camacho - 05/17/2025 10:00 AM EDT Patient ID: Felicia Fletcher is a 50 y.o. female. Time Out: Timeout Date: 05/17/25, Timeout Time: 1006 Location: [facility] Tooth: Maxilla and Mandible Procedure: Exam, X-rays, and Prophylaxis Verified the above with patient, housekeeper/laundry assistant, and provider. Confirmed via patient's chart, intraorally and by radiographs. Quality Engineer Medical Device: not applicable Medical Hx: Vitals: Blood pressure 136/76, pulse 78. Medications, Med Hx reviewed with patient and updated in chart. Treatment Provided Dental procedures in this visit D1110 - PROPHYLAXIS - ADULT (Completed) Service provider: Chad Camacho Billing provider: Sivakumar Carvalho DMD D1330 - ORAL HYGIENE INSTRUCTIONS (Completed) Service provider: Chad Camacho Billing provider: Sivakumar Carvalho DMD D9450 - CASE PRESENTATION, DETAILED AND EXTENSIVE TREATMENT PLANNING (Completed) Service provider: Chad Camacho Billing provider: Sivakumar Carvalho DMD D0210 - INTRAORAL - COMPLETE SERIES OF RADIOGRAPHIC IMAGES (Completed) Service provider: Chad Camacho Billing provider: Sivakumar Carvalho DMD Instruments Used: Ultrasonic Scalers and Prophy angle Fluoride: N/A Oral Cancer Screening: No lesions Head/Neck Exam: No Lesions Calculus: Moderate and Generalized Plaque: Light and Generalized Stain: Light and Generalized Bleeding: Light and Generalized Gingiva: Perio Charting Completed and Bleeding on probing OH: Poor Perio Chart: Completed Oral hygiene instructions provided to patient including brushing technique and flossing. Dental exam done by . Recommendations: Mustang two times daily, modified weaver technique, Floss daily Recall Frequency: 6 mo NV: ken Hygienist: Chad Camacho RDH * Sivakumar Carvalho DMD - 05/17/2025 10:00 AM EDT Dental procedures in this visit D1110 - PROPHYLAXIS - ADULT (Completed) Service provider: Chad Camacho Billing provider: Sivakumar Carvalho DMD D1330 - ORAL HYGIENE INSTRUCTIONS (Completed) Service provider: Chad Camacho Billing provider: Sivakumar Carvalho DMD D9450 - CASE PRESENTATION, DETAILED AND EXTENSIVE TREATMENT PLANNING (Completed) Service provider: Chad Camacho Billing provider: Sivakumar Carvalho DMD D0210 - INTRAORAL - COMPLETE SERIES OF RADIOGRAPHIC IMAGES (Completed) Service provider: Chad Camacho Billing provider: Sivakumar Carvalho DMD D0120 - PERIODIC ORAL EVALUATION - ESTABLISHED PATIENT (Completed) Service provider: Sivakumar Carvalho DMD Billing provider: Sivakumar Carvalho DMD Patient ID: Felicia Fletcher is a 50 y.o. female. Time Out: Timeout Date: 05/17/25, Timeout Time: 1007 Location: [facility] Tooth: all Procedure: Exam Verified the above with patient, housekeeper/laundry assistant, and provider. Confirmed via patient's chart, intraorally and by radiographs. Quality Engineer Medical Device: not applicable Chief Complaint Patient presents with Routine Cleaning Dental Exam Medical Hx: Vitals: Blood pressure 136/76, pulse 78. Medical History[1] Medications: Encounter Medications[2] Objective HPI: pt concerned about edentulous space in UL Denies pain, but reports challenges with mastication OHI reviewed as pt has multiple cervical caries - pt states she brushes 1x/day in AM Stressed importance of brushing 2x/day with fluoridated toothpaste to prevent decay Stressed importance of homecare for maintaining dentition Rx written for Prevident and counseled pt on use Soft Tissue Exam No findings documented this visit Head and Neck Exam: all structures examined Details: no swellings, ulcerations or lymphadenopathies OCS: negative Dental Exam Missing #1,3,4,5,12,16-19,30-32 #2 - large existing amalgam with recurrent decay, advise core BU and crown #7-DL decay #8- F recurrent decay #11-x-13 prepped for bridge but prosthesis has been dislodged. Not small decay present on abutment teeth. Advise reprepping for new FPD #14 - large MODL amalgam with recurrent decay, advise core BU and crown to restore form and function #15 - advise EXT, supraerupted, unopposed and recurrent decay #20-B decay, DO fracture - may be able to be incorporated as rest seat for partial #21-B decay #22-F decay #23-28 facial and buccal cervical decay #29-DOB5 decay Advise max and jovi cast partials to restore posterior occlusion Informed pt of findings, treatment options and recommendations. All questions answered. Radiographic Interpretation: Associated radiographs for today's visit were reviewed and finding(s) were discussed with the patient. Findings include: see above Hard Tissue Exam: Decay noted - see charting and treatment plan Perio Dx: Generalized Chronic Periodontitis Stage: I Grade: B Reference tooth chart for additional findings. Oral Cancer Risk: Low Risk Oral Hygiene Instructions: Mustang two times daily, modified weaver technique, Floss daily, Electric toothbrush, Soft bristle toothbrush, Mustang Tongue, Anti- sensitivity toothpaste, Prevident Caries Risk Assessment: High- two or more risk factors Assessment/Plan Caries control New FPD #11-x-13 Fixed prosth #2,14 Partials Max and Jovi Maintenance and recare Patient tolerated procedure well, all questions answered and expressed understanding. Dismissed in good condition. NV: start caries control Social Work Msw: Chad Camacho Dentist: Sivakumar Carvalho DMD [1] Past Medical History: Diagnosis Date Anxiety disorder, unspecified 05/09/2023 Benign paroxysmal positional vertigo 11/16/2024 Bronchitis 11/16/2024 Diabetes mellitus ([facility]) GERD (gastroesophageal reflux disease) 11/16/2024 HLD (hyperlipidemia) Hyperlipidemia 08/15/2022 Hypertension Major depression 11/16/2024 Somatization disorder 08/15/2022 Type 2 diabetes mellitus ([facility]) 08/15/2022 [2] Outpatient Encounter Medications as of 05/17/2025 Medication Sig Dispense Refill acetaminophen (Tylenol) 500 [...] sugar 1 times daily 100 each 11 Beclomethasone Diprop HFA (Qvar) 80 MCG/ACT inhaler Inhale 1 Inhalation. in the morning and at bedtime. Rinse mouth with water after use to reduce aftertaste and incidence of candidiasis. Do not swallow. 10.6 g 1 Blood Glucose Monitoring Suppl (FreeStyle Concord Lite) w/Device kit Use to test blood sugar 1 times daily 1 kit 0 Blood Glucose Monitoring Suppl (FreeStyle Concord Lite) w/Device kit Use to test blood sugar 1 times daily 1 kit 0 Blood Glucose Monitoring Suppl (OneTouch Verio) w/Device kit 1 Units Once per day. 1 kit 0 ztkayjoqql-qjidyaufstzxo-hymhkxug (Fioricet) 50-300-40 MG capsule TAKE 1 CAPSULE [...] use once a day 100 each 12 Icosapent Ethyl (Vascepa) 1 g capsule Take 2 capsules (2 g) by mouth with breakfast and with evening meal. 120 capsule 11 Lancet Devices (Autolet) lancing device 1 each by Other route Once per day. 1 each 0 Lancets [facility] Use to test blood sugar 1 times daily 100 each 0 lisinopril 40 MG tablet TAKE 1 TABLET BY MOUTH EVERY DAY 30 tablet 11 metFORMIN (Glucophage) 1000 MG tablet TAKE 1 TABLET(1000 MG) BY MOUTH EVERY 12 HOURS 180 tablet 1 metoprolol succinate XL (Toprol-XL) 100 MG 24 hr tablet TAKE 1 TABLET(100 MG) BY MOUTH DAILY. DO NOT CRUSH OR CHEW 30 tablet 11 Myrbetriq 50 MG 24 hr tablet Take 50 mg by mouth in the morning. ondansetron (Zofran) 4 MG tablet Take 2 tablets (8 mg) by mouth every 8 (eight) hours. 20 tablet 1 ondansetron ODT (Zofran-ODT) 4 MG disintegrating tablet TAKE 1 TABLET BY MOUTH EVERY 8 HOURS 20 tablet 1 pantoprazole (ProtoNix) 40 MG EC tablet senna (Senokot) 8.6 MG tablet Take 1 tablet (8.6 mg) by mouth at bedtime. 120 tablet 1 Sodium Fluoride 1.1 % cream Mustang teeth for 2 minutes, morning and night. Spit, do not rinse. Do not eat or drink anything for 30 minutes following use. 112 g 3 No facility-administered encounter medications on file as of 05/17/2025. documented in this encounter Plan of Treatment Upcoming Encounters Date Type Department Care Team ([facility] st Contact Info) Description 06/02/2025 10:00 AM EDT Office Visit [facility] ADULT [facility] [address] [place] [address] Sivakumar Carvalho, DMD [address] [place] [address] Scheduled Orders Name Type Priority Associated Diagnoses Orde r Schedule 2 2 CROWN - PORCELAIN/CERAMIC Dental Routine 1 Occurrences starting 05/17/2025 7 DL 7 DL RESIN-BASED COMPOSITE - 2 SURF, ANTERIOR Dental Routine 1 Occurrences [place]05/17/2025 8 F 8 F RESIN-BASED COMPOSITE - 1 SURF, ANTERIOR Dental Routine 1 Occurrences [place]05/17/2025 14 14 CROWN - PORCELAIN/CERAMIC Dental Routine 1 Occurrences starting 05/17/2025 15 15 EXTRACTION, ERUPTED TOOTH OR EXPOSED ROOT (ELEVATION/FORCEPS REMOVAL) Dental Routine 1 Occurrences 05/17/2025 20 B 20 B RESIN-BASED COMPOSITE - 1 SURF, POSTERIOR Dental Routine 1 Occurrences 05/17/2025 21 B 21 B RESIN-BASED COMPOSITE - 1 SURF, POSTERIOR Dental Routine 1 Occurrences 05/17/2025 22 F 22 F RESIN-BASED COMPOSITE - 1 SURF, ANTERIOR Dental Routine 1 Occurrences 05/17/2025 23 F 23 F RESIN-BASED COMPOSITE - 1 SURF, ANTERIOR Dental Routine 1 Occurrences 05/17/2025 24 F 24 F RESIN-BASED COMPOSITE - 1 SURF, ANTERIOR Dental Routine 1 Occurrences 05/17/2025 26 F 26 F RESIN-BASED COMPOSITE - 1 SURF, ANTERIOR Dental Routine 1 Occurrences 05/17/2025 27 F 27 F RESIN-BASED COMPOSITE - 1 SURF, ANTERIOR Dental Routine 1 Occurrences 05/17/2025 28 B 28 B RESIN-BASED COMPOSITE - 1 SURF, POSTERIOR Dental Routine 1 Occurrences 05/17/2025 3,4,5,15 3,4,5,15 MAXILLARY PARTIAL DENTURE - CAST METAL FRAMEWORK WITH RESIN DENTURE BASES (INCLUDING RETENTIVE/CLASPING MATERIALS, RESTS AND TEETH) Dental Routine 1 Occurrences 05/17/2025 18,19,30,31 18,19,30,31 MANDIBULAR PARTIAL DENTURE - CAST METAL FRAMEWORK WITH RESIN DENTURE BASES (INCLUDING RETENTIVE/CLASPING MATERIALS, RESTS AND TEETH) Dental Routine 1 Occurrences 05/17/2025 11 11 RETAINER CROWN - PORCELAIN/CERAMIC Dental Routine 1 Occurrences starting 05/17/2025 13 13 RETAINER CROWN - PORCELAIN/CERAMIC Dental Routine 1 Occurrences starting 05/17/2025 12 12 PONTIC - PORCELAIN/CERAMIC Dental Routine 1 Occurrences starting 05/17/2025 29 DOBL 29 DOBL RESIN-BASED COMPOSITE - 4+ SURF, POSTERIOR Dental Routine 1 Occurrences starting 05/17/2025 2 2 CORE BUILDUP, INCL ANY PINS WHEN REQ Dental Routine 1 Occurrences starting 05/17/2025 14 14 CORE BUILDUP, INCL ANY PINS WHEN REQ Dental Routine 1 Occurrences starting 05/17/2025 CROWN PREP Dental Routine 1 Occurrences starting 05/17/2025 CROWN PREP Dental Routine 1 Occurrences starting 05/17/2025 BRIDGE PREP Dental Routine 1 Occurrences starting 05/17/2025 UL UL PERIODONTAL SCALING AND ROOT PLANING - 4 OR MORE TEETH PER QUADRANT Dental Routine [address] [place] 05/17/2025 UR UR PERIODONTAL SCALING AND ROOT PLANING - 1 TO 3 TEETH PER QUADRANT Dental Routine [address] [place] 05/17/2025 LR LR PERIODONTAL SCALING AND ROOT PLANING - 1 TO 3 TEETH PER QUADRANT Dental Routine [address] [place] 05/17/2025 documented as of this encounter Procedures Procedure Name Priority Date/Time Associated Diagnosis Comments PROPHYLAXIS - ADULT Routine 05/17/2025 1 0:00 AM EDT Dental caries PERIODIC ORAL EVALUATION - ESTABLISHED PATIENT Routine 05/17/2025 10:00 AM EDT Dental caries ORAL HYGIENE INSTRUCTIONS Routine 2024 10:00 AM EDT Dental caries INTRAORAL - COMPLETE SERIES OF RADIOGRAPHIC IMAGES Routine 05/17/2025 10:00 AM EDT Dental caries CASE PRESENTATION, DETAILED AND EXTENSIVE TREATMENT PLANNING Routine 05/17/2025 10:00 AM EDT Dental caries 10 CROWN - PORCELAIN/CERAMIC Routine 05/17/2025 12:00 AM EDT 6 F(V) COMPOSITE FILLING Routine 025 12:00 AM EDT 15 LO AMALGAM FILLING Routine 05/17/2025 12:00 AM EDT 14 MODL AMALGAM FILLING Routine 05/17/20 25 12:00 AM EDT 2 LO AMALGAM FILLING Routine 05/17/2025 12:00 AM EDT 10 ROOT CANAL Routine 05/17/2025 12:00 AM EDT documented in this encounter Visit Diagnoses Diagnosis Dental caries- Primary Unspecified dental caries documented in this encounter Additional Health Concerns Assessment Noted Time PHQ-9 Depression Total Score: 0 11/27/19 25 11:30 AM EDT documented as of this encounter Care Teams Fire Fighters Dispatcher Relationship Specialty Start Date End Date Ann-Marie Camacho MD [address] [place] [phone] PCP - General Internal Medicine 02/23/21 documented as of this encounter
--- OUTSIDE RECORDS SUMMARY | 2025-05-21 15:45 | XMS_ITS | Encounter Summary ---
Author Organization [employer] Address [address] [place] [address] Care Team Providers Care Carbon Grinder Name Role Phone Ann-Marie Camacho MD Primary Care Provider [phone] Encounter Details Date Type Department Care Team (Latest Contact Info) Description 05/21/2025 3:45 PM EDT Office Visit [facility] P[facility] [address] [place], [place] [phone] Ann-Marie Camacho MD [address] [place], [place] [phone] Pure hypercholesterolemia (Primary Dx); Other fatigue Social History Tobacco Use Types Packs/Day Years [...] Sign Reading Time Taken Comments Blood Pressure 148/88 05/21/2025 3:59 PM EDT Pulse 88 05/21/2025 3:59 PM EDT Temperature 36.8 C (98.3 F) 05/21/2025 3:59 PM EDT Respiratory Rate 20 05/21/2025 3:59 PM EDT Oxygen Saturation - - Inhaled Oxygen Concentration - - Weight 137 kg (302 lb) 05/21/2025 3:59 PM EDT Height - - Body Mass Index 47.3 04/29/2025 1:18 PM EDT documented in this encounter Plan of Treatment Upcoming Encounters Date Type Department Care Team (Late st Contact Info) Description 06/02/2025 10:00 AM EDT Office Visit [facility] ADULT DENTAL [address] [place] [address] Sivakumar Carvalho, DMD [address] [place] [address] Scheduled Orders Name Type Priority Associated Diagnoses Orde r Schedule CBC auto differential Lab Routine Other fatigue Expected: 05/21/2025 (Approximate), Expires: 05/21/2026 Basic Metabolic Panel Lab Routine Other fatigue Expected: 05/21/2025 (Approximate), Expires: 05/21/2026 TSH W/Reflex to FT4 Lab Routine Other fatigue Expected: 05/21/2025 (Approximate), Expires: 05/21/2026 documented as of this encounter Visit Diagnoses Diagnosis Pure hypercholesterolemia- Primary Other fatigue documented in this encounter Additional Health Concerns Assessment Noted Time PHQ-9 Depression Total Score: 0 11/27/19 25 11:30 AM EDT documented as of this encounter Care Teams Carbon Grinder Relationship Specialty Start Date End Date Ann-Marie Camacho MD [address] [place] [phone] PCP - General Internal Medicine 02/23/21 documented as of this encounter
--- OUTSIDE RECORDS SUMMARY | 2025-05-21 16:18 | XMS_ITS | Clinical Summary ---
Author Organization [facility] Address [address] [place] [address] Phone Care Team Providers Care Customer Insight Analyst Name Role Phone Unavailable Primary Care Provider [...] It is not the complete legal health record.[facility]
--- OUTSIDE RECORDS SUMMARY | 2025-05-21 16:18 | XMS_ITS | Encounter Summary ---
Author Organization [employer] Address [address] [facility] [address] [facility] [address] [place] [address] Care Team Providers Care Mechanical Engineering Officer Name Role Phone Ann-Marie Camacho MD Primary Care Provider [phone] Encounter Details Date Type Department Care Team (Latest Contact Info) Description 12/22/2024 Orders Only [facility] [address] [place], [place] [phone] Ann-Marie Camacho MD [address] [place], [place] [phone] Transaminitis (Primary Dx); Pure hypercholesterolemia Social History [...] Upcoming Encounters Date Type Department Care Team ([facility] st Contact Info) Description 06/02/2025 10:00 AM EDT Office Visit [facility] ADULT DENTAL [address] [place] [address] Sivakumar Carvalho, DMD [address] [place] [address] Scheduled Orders Name Type Priority Associated Diagnoses Orde r Schedule Smooth Muscle Antibody with Reflex to Titer Lab Routine Transaminitis Expected: 12/22/2024 (Approximate), Expires: 12/22/2025 documented as of this encounter Procedures Procedure Name Priority Date/Time Associated Diagnosis Comments IRON AND TOTAL IRON BINDING CAPACITY Routine 04/29/2025 1:45 PM EDT Transaminitis IMMUNOGLOBULINS, QUANTITATIVE, IGA, IGG, IGM Routine 04/29/2025 1:45 PM EDT Transaminitis IVANA SCREEN, IFA, W/REFL TITER AND PATTERN Routine 04/29/2025 1:45 PM EDT Transaminitis FERRITIN Routine 04/29/2025 1:45 PM EDT Transaminitis HEPATIC FUNCTION PANEL Routine 04/29/2025 1:45 PM EDT Transaminitis Pure hypercholesterolemia LIPID PANEL, STANDARD Routine 04/29/2025 1:45 PM EDT Transaminitis documented in this encounter Results * Iron And Total Iron Binding Capacity (04/29/2025 1:45 PM EDT) Iron 55 30 - 160 mcg/dL [facility] Total Iron Binding Capacity 235 228 - 428 mcg/dL [facility] Percent Iron Saturation 23 15 - 50 % [facility] Unsaturated Iron Binding 180 ug/dL [facility] Blood Venous blood specimen / Unknown 04/29/2025 1:45 PM EDT 04/29/2025 5:52 PM EDT us Ann-Marie Camacho MD LAB BLOOD ORDERABLES Final Result [facility] [address] [place] [phone] * (ABNORMAL) Lipid Panel, Standard (04/29/2025 1:45 PM EDT) Triglycerides 544(H) <150 mg/dL [facility] Comment:Desirable Triglyceri de: less than 150 mg/dLBorderline High Triglyceride 150-199 mg/dLHigh Triglyceride: 200-499 mg/dLVery High Triglyceride: greater than or equal to 5OO mg/dL Cholesterol 263(H) <200 mg/dL [facility] Comment:Desirable Cholestero l: less than 200 mg/dLBorderline High Cholesterol: 200-239 mg/dLHigh Cholesterol: greater than 239 mg/dL LDL Cholesterol Calculated TNP <100 mg/dL [facility] Comment:Unable to calculate the LDL. The formula of Friedwald,Kothari, and Audrey is only valid if the triglycerides areless than 400 mg/dl. HDL Cholesterol 34(L) >40 mg/dL [facility] Comment:Desirable HDL: great er than 40 mg/dL Note: This HDL assay may give artificially low results in patients with liver disease. Blood Venous blood specimen / Unknown 04/29/2025 1:45 PM EDT 04/29/2025 5:52 PM EDT us Ann-Marie Camacho MD LAB BLOOD ORDERABLES Final Result Performing Organization Address [facility]/ZIP Co de Phone Number [facility] [address] [place] [address] [phone] * IVANA Screen,IFA, with Reflex to Titer and Pattern (04/29/2025 1:45 PM EDT) Anti Nuclear Antibody Screen NEGATIVE NEGATIVE [facility] Comment:IVANA IFA is a first l ine screen for detecting thepresence of up to approximately 150 autoantibodies invarious autoimmune diseases. A negative IVANA IFA resultsuggests an IVANA-associated autoimmune disease is notpresent at this time, but is not definitive. If thereis high clinical suspicion for Sjogren's syndrome,testing for anti-SS-A/Ro antibody should be considered.Anti-Sulema-1 antibody should be considered for clinicallysuspected inflammatory myopathies.AC-0: NegativeInternational Consensus on IVANA Patterns(https://doi.org/10.1515/kvku-9880-3199)For additional information, please refer tohttp://education.World Vital Records/faq/TOR201(This link is being provided for informational/educational purposes only.)THIS TEST WAS PERFORMED AT:[employer] [place] [phone] FOSS MD IVANA Titer TNP [facility] IVANA Pattern TNP [facility] IVANA TITER 2 (REF LAB) [facility] IVANA Pattern 2 [facility] TITER 3 [facility] IVANA PATTERN 3 [facility] Blood Venous blood specimen / Unknown 04/29/2025 1:45 PM EDT 04/29/2025 5:52 PM EDT us Ann-Marie Camacho MD LAB BLOOD ORDERABLES Final Result [facility] [address] [place] [address] [phone] * Ferritin (04/29/2025 1:45 PM EDT) [facility] Ferritin 32 10 - 250 ng/mL [facility] Blood Venous blood specimen / Unknown 04/29/2025 1:45 PM EDT 04/29/2025 5:52 PM EDT Ann-Marie Camacho MD LAB BLOOD ORDERABLES Final Result Performing Organization Address City/[facility] Co de Phone Number [facility] [address] [place] [address] [phone] * (ABNORMAL) Immunoglobulins Panel, Serum (04/29/2025 1:45 PM EDT) [facility] IMMUNOGLOBULIN G 904 600 - 1640 mg/dL [facility] IMMUNOGLOBULIN A 225 47 - 310 mg/dL [facility] Immunoglobulin M 19(A) 50 - 300 mg/dL [facility] Comment:THIS TEST WAS PERFOR MED AT:[employer] [address] [phone] FOSS MD Blood Venous blood specimen / Unknown 04/29/2025 1:45 PM EDT 04/29/2025 5:52 PM EDT us Ann-Marie Camacho MD LAB BLOOD ORDERABLES Final Result [facility] [address] [place] [address] [phone] * (ABNORMAL) Hepatic Function Panel (04/29/2025 1:45 PM EDT) [facility] Bilirubin, Total 0.2 0.0 - 1.0 mg/dL [facility] Bilirubin, Direct <0.2 0.0 - 0.5 mg/dL [facility] Aspartate Amino Transferase 44(H) 5 - 31 U/L [facility] Alanine Aminotransferase 28 0 - 31 U/L [facility] Total Protein 7.3 6.5 - 8.0 g/dL [facility] Albumin Level 4.6 3.5 - 5.0 g/dL [facility] Alkaline Phosphatase 66 39 - 117 U/L [facility] Blood Venous blood specimen / Unknown 04/29/2025 1:45 PM EDT 04/29/2025 5:52 PM EDT us Ann-Marie Camacho MD LAB BLOOD ORDERABLES Final Result [facility] [address] [place] [phone] documented in this encounter Visit Diagnoses Diagnosis Transaminitis- Primary Nonspecific elevation of levels of transaminase or lactic acid dehydrogenase (LDH) Pure hypercholesterolemia documented in this encounter Additional Health Concerns Assessment Noted Time PHQ-9 Depression Total Score: 0 11/27/19 25 11:30 AM EDT documented as of this encounter Care Teams Mechanical Engineering Officer Relationship Specialty Start Date End Date Ann-Marie Camacho MD [address] [place] [phone] PCP - General Internal Medicine 02/23/21 documented as of this encounter
--- OUTSIDE RECORDS SUMMARY | 2025-05-21 16:18 | XMS_ITS | Encounter Summary ---
Author Organization [employer] Address [address] [facility] 7t [place] [address] Care Team Providers Care Technical Administrative Assistant Name Role Phone Ann-Marie Camacho MD Primary Care Provider [phone] Encounter Details Date Type Department Care Team (Late Contact Info) Description 11/22/2022 Orders Only [facility] MED & PEDS [address] [place], [place] [phone] Ann-Marie Camahco MD [address] [place], [place] [phone] Acute pain of right shoulder (Primary Dx) [...] Department Care Team (Late Contact Info) Description 06/02/2025 10:00 AM EDT Office Visit [facility] ADULT DENTAL [address] [place] [address] Sivakumar Carvalho, LOIS [address] [place] [address] documented as of this encounter Visit Diagnoses Diagnosis Acute pain of right shoulder- Primary documented in this encounter Additional Health Concerns Assessment Noted Time PHQ-9 Depression Total Score: 6 09/03/19 23 1:13 PM EST documented as of this encounter Care Teams Technical Administrative Assistant Relationship Specialty Start Date End Date Ann-Marie Camacho MD [address] [place] [address] PCP - General Internal Medicine 02/23/21 documented as of this encounter
--- OUTSIDE RECORDS SUMMARY | 2025-05-21 16:18 | XMS_ITS | Clinical Summary ---
Author Organization [facility] Facility Address [address] [address] Care Team Providers Care Tank Filler Name Role Phone Ann-Marie Camacho MD Primary Care Provider [phone] Allergies Active Allergy Reactions Criticality Noted Date Comments Carbamazepine 01/02/2022 Cariprazine 01/02/2022 Lamotrigine Rash Low 01/02/2022 Rufus Other (see comments) 01/02/2022 Penicillins Shortness of [...] Last Done Comments Breast Cancer Screening 1975 Hepatitis B Vaccine (1 of 3 - 19+ 3-dose series) 05/11 Pneumococcal Vaccine: 50+ Years (1 of 2 - PCV) 994 Diabetes: Hemoglobin A1C 11/21/2021 Diabetes: Ophthalmology Exam 11/21/2021 Diabetes: Pedal Pulse Checked 11/21/2021 Diabetes: Sensory Foot Exam 11/21/2021 Diabetes: Visual Foot Exam 11/21/2021 Colorectal Cancer Screening: Annual FOBT 2024 Colorectal Cancer Screening: Colonoscopy 2024 Colorectal Cancer Screening: Sigmoidoscopy 2024 Influenza Vaccine (#1) 2025 Insurance [facility] Medicare Generic Commercial [facility] Medicare Generic Commercial Care Teams Tank Filler Relationship Specialty Start Date End Date Ann-Marie Camacho MD [address] [place] [id number] PCP - General Internal Medicine 07/14/21
--- OUTSIDE RECORDS SUMMARY | 2025-05-21 16:18 | XMS_ITS | Encounter Summary ---
Author Organization [employer] Address [address] [facility] 7t [place] [address] Care Team Providers Care Specialty Department Supervisor Name Role Phone Ann-Marie Camacho MD Primary Care Provider [phone] Reason for Visit * Reason Comments Med Refill Encounter Details Date Type Department Care Team (Late Contact Info) Description 12/17/2022 Refill [facility] [address] [place], [place] [phone] Ann-Marie Camacho MD [address] [place] [address] Social History Tobacco Use Types Packs/Day Years [...] Description 06/02/2025 10:00 AM EDT Office Visit [facility] ADULT [facility] [address] [place] [address] Sivakumar Carvalho, DMD [address] [place] [address] documented as of this encounter Visit Diagnoses Not on filedocumented in this encounter Additional Health Concerns Assessment Noted Time PHQ-9 Depression Total Score: 6 09/03/19 23 1:13 PM EST documented as of this encounter Care Teams Specialty Department Supervisor Relationship Specialty Start Date End Date Ann-Marie Camacho MD [address] [place] [address] PCP - General Internal Medicine 02/23/21 documented as of this encounter
--- OUTSIDE RECORDS SUMMARY | 2025-05-21 16:18 | XMS_ITS | Encounter Summary ---
Author Organization [employer] Address [address] [facility] 7t [place] [address] Care Team Providers Care Senior Patrol Agent Name Role Phone Ann-Marie Camacho MD Primary Care Provider [phone]- [phone] Encounter Details Date Type Department Care Team (Late Contact Info) Description 12/05/2022 Abstract [facility] MED & PEDS [address] [place], [place] [phone] Ann-Marie Camacho MD [address] [place], [place] [phone] Social History Tobacco Use Types Packs/Day Years [...] 10:00 AM EDT Office Visit [facility] ADULT DENTAL [address] [place] [address] Deven Sivakumar, DMD [address] [place] [address] documented as of this encounter Procedures Procedure [...] as of this encounter Care Teams Senior Patrol Agent Relationship Specialty Start Date End Date Ann-Marie Camacho MD [address] [place] [address] PCP - General Internal Medicine 02/23/21 documented as of this encounter
--- OUTSIDE RECORDS SUMMARY | 2025-05-21 16:18 | XMS_ITS | Encounter Summary ---
Author Organization [employer] Address [address] [place] [address] [address] [place] [address] Care Team Providers Care Conductor And Engineer Name Role Phone Ann-Marie Camacho MD Primary Care Provider [phone] Reason for Visit * Reason Comments Med Refill Encounter Details Date Type Department Care Team (Late Contact Info) Description 03/17/2023 Refill [facility] MED & PEDS [address] [place], [place] [phone] Ann-Marie Camacho MD [address] [place] [address] Social History Tobacco Use Types Packs/Day Years [...] Upcoming Encounters Date Type Department Care Team ([facility] Contact Info) Description 06/02/2025 10:00 AM EDT Office Visit [facility] ADULT DENTAL [address] [place] [address] Sivakumra Carvalho, LOIS [address] [place], [place] [phone] documented as of this encounter Visit Diagnoses Not on filedocumented in this encounter Additional Health Concerns Assessment Noted Time PHQ-9 Depression Total Score: 6 09/03/19 23 1:13 PM EST documented as of this encounter Care Teams Conductor And Engineer Relationship Specialty Start Date End Date Ann-Marie Camacho MD [address] [place] [id number] PCP - General Internal Medicine 02/23/21 documented as of this encounter
--- OUTSIDE RECORDS SUMMARY | 2025-05-21 16:18 | XMS_ITS | Encounter Summary ---
Author Organization [employer] Address [address] [facility] 7[address] [place] [address] Care Team Providers Care Ed Educational Aide Name Role Phone Ann-Marie Camacho MD Primary Care Provider [phone] Encounter Details Date Type Department Care Team ([facility] st Contact Info) Description 11/26/2024 Orders Only [facility] MED & PEDS [address] [place], [place] [phone] Ann-Marie Camacho MD [address] [place], [place] [phone] Type 2 diabetes mellitus without complication, without long-term current use of insulin ([facility]) (Primary Dx) Social History Tobacco [...] Description 06/02/2025 10:00 AM EDT Office Visit [facility] ADULT DENTAL [address] [place] [address] Sivakumar Carvalho DMD [address] [place] [address] documented as of this encounter Visit Diagnoses Diagnosis Type 2 diabetes mellitus without complication, without long-term current use of insulin ([facility])- Primary documented in this encounter Additional Health Concerns Assessment Noted Time PHQ-9 Depression Total Score: 0 11/27/19 25 11:30 AM EDT documented as of this encounter Care Teams Ed Educational Aide Relationship Specialty Start Date End Date Ann-Marie Camacho MD [address] [place] [address] PCP - General Internal Medicine 02/23/21 documented as of this encounter
--- OUTSIDE RECORDS SUMMARY | 2025-05-21 16:18 | XMS_ITS | Encounter Summary ---
Author Organization [employer] Address [address] [facility] [address] [place] [address] Care Team Providers Care Catalyst Recovery Operator Name Role Phone Ann-Marie Camacho MD Primary Care Provider [phone]- [phone] Encounter Details Date Type Department Care Team (Latest Contact Info) Description 10/24/2021 Abstract [facility] CONVERSIONS Dental, Provider, DDS Social History Tobacco [...] Description 06/02/2025 10:00 AM EDT Office Visit [facility] ADULT [facility] [address] [place] [address] Sivakumar Carvalho, DMD [address] [place] [address] documented as of this encounter Visit Diagnoses Not on filedocumented in this encounter Care Teams Catalyst Recovery Operator Relationship Specialty Start Date End Date Ann-Marie Camacho MD [address] [place] [address] PCP - General Internal Medicine 02/23/21 documented as of this encounter
--- OUTSIDE RECORDS SUMMARY | 2025-05-21 16:18 | XMS_ITS | Clinical Summary ---
Author Organization [employer] Address [address] [facility] [address] [place] [address] Care Team Providers Care Staff Design Engineer Name Role Phone Ann-Marie Camacho MD Primary Care Provider [phone] Allergies Active Allergy Reactions Criticality Noted Date Comments Wound Dressings 08/15/2022 Other reaction(s): adhesive on patches-skin irritations Carbamazepine 01/02/2022 Other Reaction(s): MIGRAINES Cariprazine 01/02/2022 Other Reaction(s): LEG CRAMPS Clindamycin Other 11/19/2024 Reports when taking feels like throat enriquez Cynara Scolymus (Artichoke) Rash Low 08/15/2022 artichoke Dicyclomine Hallucinations 09/16/2024 Fentanyl Rash Low 03/20/2023 Lamotrigine Rash Low 01/02/2022 [place] Other High 01/02/2022 Other reaction(s): bad reaction [...] 50 mg by mouth in the morning. 022 Active pantoprazole (ProtoNix) 40 MG EC tablet 022 Active lisinopril 40 MG tablet TAKE 1 TABLET BY MOUTH EVERY DAY 30 tablet 11 024 Active albuterol 108 (90 Base) MCG/ACT inhalerIndications:Bro nchitis Inhale 2 puffs every 6 (six) hours if needed for wheezing. 18 g 024 Active cetirizine (ZyrTEC) 10 MG tablet Take 1 tablet (10 mg) by mouth Once per day. 30 tablet 5 024 Active Beclomethasone Diprop HFA (Qvar) 80 MCG/ACT inhaler Inhale 1 Inhalation. in the morning and at bedtime. Rinse mouth with water after use to reduce aftertaste and incidence of candidiasis. Do not swallow. 10.6 g 1 024 Active acetaminophen (Tylenol) 500 MG tablet Take 1 tablet (500 mg) by mouth every 6 (six) hours if needed for mild pain for up to 20 doses. 20 tablet 025 Active cloZAPine (Clozaril) 200 MG [...] 025 Active Blood Glucose Monitoring Suppl (FreeStyle [place] Lite) w/Device kitIndications:Type 2 diabetes mellitus without complication, without long-term current use of insulin ([facility]) Use to test blood sugar 1 times daily 1 kit 025 Active Alcohol Swabs 70 % padsIndications:Type 2 diabetes mellitus without complication, without long-term current use of insulin ([facility]) Use to test blood sugar 1 times daily 100 each 11 025 Active FREESTYLE LITE test stripIndications:Type 2 diabetes mellitus without complication, without long-term current use of insulin ([facility]) Use to test blood sugar 1 times daily 100 each 12 025 11/26 Active Lancets miscIndications:Type 2 diabetes mellitus without complication, without long-term current use of insulin ([facility]) Use to test blood sugar 1 times daily 100 each 025 Active Blood Glucose Monitoring Suppl (FreeStyle [place] Lite) w/Device kitIndications:Type 2 diabetes mellitus without complication, without long-term current use of insulin ([facility]) Use to test blood sugar 1 times daily 1 kit Active empagliflozin (Jardiance) 10 MGIndications:Type 2 diabetes mellitus without complication, without long-term current use of insulin ([facility]) Take 1 tablet (10 mg) by mouth Once per day. 30 tablet 11 025 11/26 Active glucose blood test stripIndications:Type 2 diabetes mellitus without complication, without long-term current use of insulin ([facility]) To use once a day 100 each 12 025 11/26 Active Lancet Devices (Autolet) lancing deviceIndications:Type 2 diabetes mellitus without complication, without long-term current use of insulin ([facility]) 1 each by Other route Once per day. 1 each 025 11/26 Active Blood Glucose Monitoring Suppl (OneTouch Verio) w/Device kitIndications:Type 2 diabetes mellitus without complication, without long-term current use of insulin ([facility]) 1 Units Once per day. 1 kit Active Diclofenac Sodium 1 % gelIndications:Muscle ache To apply to the affected area 3 times a day 100 g Active senna (Senokot) 8.6 MG tabletIndications:Irri table [...] meal. 120 capsule 11 025 04/30 Active metoprolol succinate XL (Toprol-XL) 100 MG 24 hr tabletIndications:Hype rtension, unspecified type TAKE 1 TABLET(100 MG) BY MOUTH DAILY. DO NOT CRUSH OR CHEW 30 tablet 11 025 Active ondansetron ODT (Zofran-ODT) 4 MG disintegrating tablet TAKE 1 TABLET BY MOUTH EVERY 8 HOURS 20 tablet 1 025 Active ondansetron (Zofran) 4 MG tabletIndications:Naus ea Take 2 tablets (8 mg) by mouth every 8 (eight) hours. 20 tablet 1 025 Active Sodium Fluoride 1.1 % creamIndications:Denta l caries [place] teeth for 2 minutes, morning and night. Spit, do not rinse. Do not eat or drink anything for 30 minutes following use. 112 g 3 025 Active metFORMIN (Glucophage) 1000 MG tabletIndications:Type 2 diabetes mellitus without complication, without long-term current use of insulin (CMS/HCC) TAKE 1 TABLET(1000 MG) BY MOUTH EVERY 12 HOURS 180 tablet 1 025 Active fish oil ([place]-3) 500 MG capsuleIndications:Pur e hypercholesterolemia Take 1 capsule (500 mg) by mouth Once per day. 60 capsule 2 025 Active Linzess 290 MCG capsule Take 290 mcg by mouth in the morning. 022 04/29 Discontinued( Therapy completed) ondansetron (Zofran) 4 MG tablet Take 1 tablet by mouth every 8 (eight) hours. 022 05/04 Discontinued( Reorder (will not trigger notification to Pharmacy)) tiZANidine (Zanaflex) 4 MG tabletIndications:Acut e pain [...] Reorder (will not trigger notification to Pharmacy)) metoprolol succinate XL (Toprol XL) 100 MG 24 hr tabletIndications:Hype rtension, unspecified type Take 1 tablet (100 mg) by mouth Once per day. Do not crush or chew. 30 tablet 11 024 05/03 Discontinued metFORMIN (Glucophage) 1000 MG tabletIndications:Type 2 diabetes mellitus without complication, without long-term current use of insulin ([facility]) TAKE 1 TABLET(1000 MG) BY MOUTH EVERY 12 HOURS 180 tablet 1 025 05/20 Discontinued azithromycin (Zithromax) 250 MG tablet Take (2) tabs 1st day; take (1) tab next 4 days. 6 tablet 025 04/29 Discontinued( Therapy completed) lisinopril 40 MG tablet TAKE 1 TABLET BY MOUTH EVERY DAY 30 tablet 11 025 04/29 Discontinued( Other) sulfamethoxazole-trime thoprim (Bactrim DS) 800-160 MG tabletIndications:Disc harge from wound Take 1 tablet by mouth 2 times daily for 7 days. 14 tablet 025 05/06 ondansetron (Zofran) 4 MG tabletIndications:Naus ea Take 1 tablet (4 mg) by mouth every 8 (eight) hours. 20 tablet 1 025 05/10 Discontinued( Reorder (will not trigger notification to Pharmacy)) Active [...] coping skills PLAN: 1. Follow up with [facility]: Not recommended for follow-up 2. Patient goal [...] Encounters Date Type Department Care Team Description 05/21/2025 3:45 PM EDT Office Visit [facility] [address] [place] [address] Ann-Marie Camacho MD Pure hypercholesterolemia (Primary Dx); Other fatigue 05/21/2025 Travel 05/19/2025 Refill [facility] [address] [place] [address] Ann-Marie Camacho MD Type 2 diabetes mellitus without complication, without long-term current use of insulin ([facility]) 05/17/2025 10:00 AM EDT Office Visit [facility] [address] [place] [address] Chad Camacho Dental caries (Primary Dx) 05/07/2025 Orders Only [facility] [address] [place] [address] Ann-Marie Camacho MD 05/07/2025 Telephone [facility] [address] [place] [phone] Ann-Marie Camacho MD 05/04/2025 Refill [facility] [address] [place] [phone] Ann-Marie Camacho MD 05/04/2025 Telephone [facility] [address] [place] [phone] Ann-Marie Camacho MD Nurse Triage 05/03/2025 Results Follow-Up [facility] [address] [place] [phone] Joselin Reed RN Gram Stain Result 05/01/2025 Refill [facility] [address] [place] [phone] Ann-Marie Camacho MD Hypertension, unspecified type 04/30/2025 Results Follow-Up [facility] [address] [place] [phone] Anay Schwartz, RODY Hepatic Function Panel, Ferritin, Lipid Panel, Standard, Additional followed-up results: 2 04/30/2025 Orders Only [facility] [address] [place] [phone] Ann-Marie Camacho MD Transaminitis (Primary Dx); Pure hypercholesterolemia; Nausea 04/29/2025 1:00 PM EDT Office Visit [facility] [address] [place] [phone] Ann-Marie Camacho MD Irritable bowel syndrome with constipation (Primary Dx); Discharge from wound; PV (pityriasis versicolor) 04/29/2025 Orders Only [facility] [address] [place] [address] Ann-Marie Camacho MD 04/29/2025 Travel 04/28/[address] [address] Ann-Marie Camacho MD Nurse Triage 04/20/2025 Orders Only GENERIC EXTERNAL DATA DEPARTMENT Provider, Generic External Data 03/24/2025 Telephone [facility] [address] [place] [address] Ann-Marie Camacho MD No Show 03/23/2025 Telephone [facility] [address] [place] [address] Ann-Marie Camacho MD Chart Prep 03/17/2025 Patient Outreach [address] [address] Ann-Marie Camacho MD Pre-visit Planning (Pre visit [...] 20 05/21/2025 3:59 PM EDT Oxygen Saturation 97% 04/29/2025 1:18 PM EDT Inhaled Oxygen Concentration - - Weight 137 kg (302 lb) 05/21/2025 3:59 PM EDT Height 170.2 cm (5' 7 ) 04/29/2025 1:18 PM EDT Body Mass Index 47.3 04/29/2025 1:18 PM EDT Plan of Treatment Upcoming Encounters Date Type Department Care Team (Late st Contact Info) Description 06/02/2025 10:00 AM EDT Office Visit [facility] [address] [place] [address] Sivakumar Carvalho, DMD [address] [place] [address] Health Maintenance Due Date Last Done Comments CT Colonography 1975 FIT DNA/Cologuard 1975 FIT 1975 FOBT 1975 HIV Screening 1975 Sigmoidoscopy 1975 Family Planning (PISQ) 1990 Diabetes: Urine Protein Screening 1994 Hepatitis B Vaccines (1 of 3 - 19+ 3-dose series) 1994 Diabetes: Foot Exam 05/01/2023 Diabetes: Hemoglobin A1C 02/25/2025 025, 08/31/2024, 05/12/2024, Additional history exists COVID-19 Vaccine ( season) 2025 01/12/2021, 12/14/2020 Influenza Vaccine (#1) 2025 06/26/2024 Zoster Vaccines (1 of 2) 2025 Alcohol/Substance Use Screening 11/05/2025 11/05/2024 Disability Screening 11/05/2025 11/05/2024 SDOH Screening 11/05/2025 11/05/2024 Dental Oral Exam 11/15/2025 05/17/2025, 10/24/2021 Dental Prophylaxis 11/15/2025 05/17/2025 Depression Screening 11/26/2025 11/26/2024, 11/27/19 Lipid Panel 04/29/2026 04/29/2025, 11/25, 07/13/2024, Additional history exists Dental X-Ray: Bitewings 05/18/2026 05/17/20 25, 11/16/2024, 10/06/2024, Additional history exists Tobacco Screening 05/21/2026 05/21/2025 Mammogram 07/03/2026 07/03/2024 Eye Exam 12/22/2026 12/22/2024, 11/25, 12/22/2024, Additional history exists Dental X-Ray: Full Mouth 05/18/2028 05/17/2025, 03/0 08/2021 Cervical Cancer Screening 07/14/2029 HPV/Cotest 07/14/2029 07/14/2024 Pap Smear 07/14/2029 07/14/2024, 11/16/2022 Colonoscopy 09/28/2029 09/28/2019 Colorectal Cancer Screening 09/28/2029 DTaP/Tdap/Td Vaccines (2 - Td or Tdap) 05/10/2030 05/10/2020 RSV Patients and Patients Aged 60 years or older (1 - 1-dose 75+ series) 2050 Pneumococcal Vaccine: 50+ Years Completed 06/26/2024 Hepatitis C Screening Completed 05/03/2025, 024 HIB Vaccines Aged Out No longer eligi [...] Procedure Name Priority Date/Time Associated Diagnosis Comments PERIODIC ORAL EVALUATION - ESTABLISHED PATIENT Routine 05/17/2025 10:00 AM EDT Dental caries CASE PRESENTATION, DETAILED AND EXTENSIVE TREATMENT PLANNING Routine 05/17/2025 10:00 AM EDT Dental caries ORAL HYGIENE INSTRUCTIONS Routine 05/17/2025 10:00 AM EDT Dental caries PROPHYLAXIS - ADULT Routine 05/17/2025 10:00 AM EDT Dental caries INTRAORAL - COMPLETE SERIES OF RADIOGRAPHIC IMAGES Routine 05/17/2025 10:00 AM EDT Dental caries 6 F(V) COMPOSITE FILLING Routine 05/17/2025 12:00 AM EDT 15 LO AMALGAM FILLING Routine 05/17/2025 12:00 AM EDT 14 MODL AMALGAM FILLING Routine 05/17/2025 12:00 AM EDT 10 ROOT CANAL Routine 05/17/2025 12:00 AM EDT 2 LO AMALGAM FILLING Routine 05/17/2025 12:00 AM EDT 10 CROWN - PORCELAIN/CERAMIC Routine 05/17/2025 12:00 AM EDT US ABDOMEN COMPLETE WITH ELASTOGRAPHY Routine 2025 Transaminitis ACTIN (SMOOTH MUSCLE) ANTIBODY (IGG) Routine 05/07/2025 11:24 AM EDT [id number] QN Routine 05/07/2025 11:24 AM EDT HEPATITIS C AB W/REFL TO HCV RNA, QN, PCR Routine 05/03/2025 11:50 AM EDT Transaminitis PROTHROMBIN TIME-INR Routine 05/03/2025 11:50 AM EDT Transaminitis IMMUNOGLOBULINS, QUANTITATIVE, IGA, IGG, IGM Routine 05/03/2025 11:50 AM EDT Transaminitis HEPATITIS B SURFACE ANTIBODY, QUALITATIVE Routine 05/03/2025 11:50 AM EDT Transaminitis URINALYSIS, COMPLETE, WITH REFLEX TO CULTURE Routine 04/29/2025 1:50 PM EDT Generalized abdominal pain IRON AND TOTAL IRON BINDING CAPACITY Routine 04/29/2025 1:45 PM EDT Transaminitis LIPID PANEL, STANDARD Routine 04/29/2025 1:45 PM EDT Transaminitis IVANA [...] complication, without long-term current use of insulin ([facility]) PAP SMEAR Routine 07/14/2024 10:44 AM EST Cervical cancer screening HPV MRNA E6/E7 REFLEX TO HPV 16, 18/45 Routine 07/14/2024 12:00 AM EST BI MAMMOGRAM SCREENING TOMOSYNTHESIS BILATERAL Routine 07/03/2024 Encounter for screening mammogram for malignant neoplasm of breast COLONOSCOPY Routine 09/28/2019 from Last 3 Months or Most Recently Relevant to Health Maintenance Results * US Abdomen Comp w elastography (2025) Anatomical Region Laterality Modality Abdomen Ultrasound us Ann-Marie Camacho MD IMG US PROCEDURES Final Res ult * Actin (Smooth Muscle) Antibody (IgG) (05/07/2025 11:24 AM EDT) Smooth Muscle Antibody <20 <20 U [facility] Comment:Reference Range: <20 U: Negative>or=20 U: PositiveAntibodies recognizing actin are the main componentof smooth muscle antibodies associated with auto- immune liver disease. Actin antibodies are found inapproximately 75% of patients with autoimmunehepatitis (AIH) type 1, approximately 65% of patientswith autoimmune cholangitis, approximately 30% ofpatients with primary biliary cirrhosis andapproximately 2% of healthy controls. High values areclosely correlated with AIH type 1.THIS TEST WAS PERFORMED AT:[id number] [place] [address]JSAASAWMARLENA DE SANTIAGO MD,PHD 05/07/2025 11:2 4 AM EDT 05/07/2025 2:25 PM EDT us Ann-Marie Camacho MD LAB BLOOD ORDERABLES Final Result Performing Organization Address [facility] Co de Phone Number [facility] [address] [place] [phone] * Bflsm-3-Usqwojvvdiu, Quantitative (05/07/2025 11:24 AM EDT) Izfoo-4-Rmnqavfr sin QN 122 83 - 199 mg/dL [facility] Comment:THIS TEST WAS PERFOR MED AT:[facility] [address] [id number] FOSS MD 05/07/2025 11:2 4 AM EDT 05/07/2025 2:25 PM EDT us Ann-Marie Camacho MD LAB BLOOD ORDERABLES Final Result Performing Organization Address [facility] Co de Phone Number [facility] [address] [place] [phone] * Hepatitis C Antibody with Reflex to HCV, RNA, Quantitative, Real-Time PCR (05/03/2025 11:50 AM EDT) Hepatitis C Antibody Nonreactive Nonreactive [facility] Comment:Antibodies to HCV no t detected; does not exclude early acuteHCV infection. Blood Venous blood specimen / Unknown 05/03/2025 11:50 AM EDT 05/03/2025 2:52 PM EDT Ann-Marie Camacho MD LAB BLOOD ORDERABLES Final Result Performing Organization Address [facility] de Phone Number [facility] [address] [place] [phone] * Hepatitis B Surface Antibody, Qualitative (05/03/2025 11:50 AM EDT) ~Hepatitis B Surface Antibody REACTIVE Nonreactive [facility] Comment:REACTIVE: > 11.99 mI U/mL Blood Venous blood specimen / Unknown 05/03/2025 11:50 AM EDT 05/03/2025 2:52 PM EDT Ann-Marie Camacho MD LAB BLOOD ORDERABLES Final Result Performing Organization Address [facility] Phone Number [facility] [address] [place] [phone] * (ABNORMAL) Prothrombin Time-INR (05/03/2025 11:50 AM EDT) Prothrombin Time 10.2(L) 10.9 - 12.4 SEC [facility] INTERNATIONAL NORM RATIO 0.9 0.9 - 1.1 [facility] Comment:INTERNATIONAL NORMAL IZED RATIO (INR) REFERENCE RANGES Reference RangeFor patients not on anticoagulant therapy: 0.9 - 1.1INR ranges for oral anticoagulanttherapy:For prevention and treatment of venous thrombosis and pulmonary embolism: 2.0 - 3.0For acute myocardial infarction with aspirin therapy: 2.0 - 3.0For acute myocardial infarction without aspirin therapy: 3.0 - 4.0For patients with mechanical prosthetic heart valves: 2.5 - 3.5 Blood Venous blood specimen / Unknown 05/03/2025 11:50 AM EDT 05/03/2025 2:52 PM EDT Ann-Marie Camacho MD LAB BLOOD ORDERABLES Final Result Performing Organization Address City/[facility]/ZIP Co de Phone Number [facility] [address] [place] [phone] * (ABNORMAL) Immunoglobulins, Quantitative, IgA, IgG, IgM (05/03/2025 11:50 AM EDT) Only the most recent of2 resultswithin the time period is included. IMMUNOGLOBULIN G 889 600 - 1640 mg/dL [facility] IMMUNOGLOBULIN A 224 47 - 310 mg/dL [facility] Immunoglobulin M 19(A) 50 - 300 mg/dL [facility] Comment:THIS TEST WAS PERFOR MED AT:[employer] [place] [id number] FOSS MD Blood Venous blood specimen / Unknown 05/03/2025 11:50 AM EDT 05/03/2025 2:52 PM EDT us Ann-Marie Camacho MD LAB BLOOD ORDERABLES Final Result Performing Organization Address City/[facility]/ZIP Co de Phone Number [facility] [address] [place] [phone] * Urinalysis, Complete, with Reflex to Culture (04/29/2025 1:50 PM EDT) Color Urine Yellow [facility] Appearance Urine Clear [facility] PH 7.5 5.0 - 9.0 [facility] Glucose Urine UA Negative Negative mg/dL [facility] Urine Blood Negative Negative [facility] Specific [place] - Urine <=1.005 1.005 - 1.025 [facility] Urine Protein Negative Neg-Trace mg/dL [facility] Urine Ketones Negative Negative mg/dL [facility] Nitrite Urine Negative Negative [facility] Leukocyte Esterase Urine Negative Negative [facility] RBC Urine 0-2 0 - 2 /HPF [facility] Urine WBC 0-5 0 - 5 /HPF [facility] Urine Squamous Epithelial Cell 0-2 0 - 2 /HPF [facility] Urine Bacteria None Seen None Seen [facility] Hyaline Casts, Urine 0-2 0 - 2 /LPF [facility] Urine 04/29/2025 1:50 PM EDT 04/29/2025 5:37 PM EDT Narrative [facility] - 04/29/2025 7:03 PM EDT 1343Urine, Clean Catch us Ann-Marie Camacho MD LAB URINE ORDERABLES Final Result Performing Organization Address [facility]/ZIP Co de Phone Number [facility] [address] [place] [phone] * Iron And Total Iron Binding Capacity (04/29/2025 1:45 PM EDT) Iron 55 30 - 160 mcg/dL [facility] Total Iron Binding Capacity 235 228 - 428 mcg/dL [facility] Percent Iron Saturation 23 15 - 50 % [facility] Unsaturated Iron Binding 180 ug/dL [facility] Blood Venous blood specimen / Unknown 04/29/2025 1:45 PM EDT 04/29/2025 5:52 PM EDT us Ann-Marie Camacho MD LAB BLOOD ORDERABLES Final Result Performing Organization Address [facility] Co de Phone Number [facility] [address] [place] [phone] * IVANA Screen,IFA, with Reflex to Titer and Pattern (04/29/2025 1:45 PM EDT) Anti Nuclear Antibody Screen NEGATIVE NEGATIVE [facility] Comment:IVANA IFA is a first l [...] clinicallysuspected inflammatory myopathies.AC-0: NegativeInternational Consensus on IVANA Patterns(https://doi.org/10.1515/rjuo-4913-2762)For additional information, please refer tohttp://education.MOG/faq/QAS523(This link is being provided for informational/educational purposes only.)THIS TEST WAS PERFORMED AT:[employer] [place] [id number] FOSS MD IVANA Titer TNP [facility] IVANA Pattern TNP [facility] IVANA TITER 2 (REF LAB) [facility] IVANA Pattern 2 [facility] IV[facility] TITER 3 [facility] IVANA PATTERN 3 [facility] Blood Venous blood specimen / Unknown 04/29/2025 1:45 PM EDT 04/29/2025 5:52 PM EDT us Ann-Marie Camacho MD LAB BLOOD ORDERABLES Final Result Performing Organization Address [facility] Co de Phone Number [facility] [address] [place] [phone] * Ferritin (04/29/2025 1:45 PM EDT) Ferritin 32 10 - 250 ng/mL [facility] Blood Venous blood specimen / Unknown 04/29/2025 1:45 PM EDT 04/29/2025 5:52 PM EDT Ann-Marie Camacho MD LAB BLOOD ORDERABLES Final Result Performing Organization Address [facility] Co de Phone Number [facility] [address] [place] [phone] * (ABNORMAL) Hepatic Function Panel (04/29/2025 1:45 PM EDT) Bilirubin, Total 0.2 0.0 - 1.0 mg/dL [facility] Bilirubin, Direct <0.2 0.0 - 0.5 mg/dL [facility] Aspartate Amino Transferase 44(H) 5 - 31 U/L [facility] Alanine Aminotransferase 28 0 - 31 U/L [facility] Total Protein 7.3 6.5 - 8.0 g/dL [facility] Albumin Level 4.6 3.5 - 5.0 g/dL [facility] Alkaline Phosphatase 66 39 - 117 U/L [facility] Blood Venous blood specimen / Unknown 04/29/2025 1:45 PM EDT 04/29/2025 5:52 PM EDT us Ann-Marie Camacho MD LAB BLOOD ORDERABLES Final Result [facility] [address] [place] [phone] * (ABNORMAL) Lipid Panel, Standard (04/29/2025 1:45 PM EDT) Triglycerides 544(H) <150 mg/dL [facility] Comment:Desirable Triglyceri de: less than 150 mg/dLBorderline High Triglyceride 150-199 mg/dLHigh Triglyceride: 200-499 mg/dLVery High Triglyceride: greater than or equal to 5OO mg/dL Cholesterol 263(H) <200 mg/dL [facility] Comment:Desirable Cholestero l: less than 200 mg/dLBorderline High Cholesterol: 200-239 mg/dLHigh Cholesterol: greater than 239 mg/dL LDL Cholesterol Calculated TNP <100 mg/dL [facility] Comment:Unable to calculate the LDL. The formula of Friedwald,Kothari, and Audrey is only valid if the triglycerides areless than 400 mg/dl. HDL Cholesterol 34(L) >40 mg/dL [facility] Comment:Desirable HDL: great er than 40 mg/dL Note: This HDL assay may give artificially low results in patients with liver disease. Blood Venous blood specimen / Unknown 04/29/2025 1:45 PM EDT 04/29/2025 5:52 PM EDT us Ann-Marie Camacho MD LAB BLOOD ORDERABLES Final Result Performing Organization Address [facility] [facility]/ZIP Co de Phone Number [facility] [address] [place] [phone] * Gram Stain Result (04/29/2025 1:26 PM EDT) 04/29/2025 1:26 PM EDT 04/29/2025 5:37 PM EDT Comment:Groin Narrative [facility] - 05/01/2025 1:01 PM EDT Gram [...] LA BS Final Result Performing Organization Address [facility] Co de Phone Number [facility] [address] [place] [phone] * (ABNORMAL) Drug Monitoring, Panel 1, Screen, Urine (04/20/2025 1:20 PM EDT) Pathologist [facility] Opiate Screen Urine Not Detected Not Detect [facility] Comment:Opiate cut-off is 30 0 ng/mL.Positive results are unconfirmed and should not be used fornon-medical purposes. Barbiturates, Urine Not Detected Not Detect [facility] Comment:Barbiturate cut-off is 200 ng/mL.Positive results are unconfirmed and should not be used fornon-medical purposes. Phencyclidine Screen Urine Not Detected Not Detect [facility] Comment:Phencyclidine cut-of f is 25 ng/mL.Positive results are unconfirmed and should not be used fornon-medical purposes. Amphetamine Screen Urine Not Detected Not Detect [facility] Comment:Amphetamine cut-off is 1000 ng/mL.Positive results are unconfirmed and should not be used fornon-medical purposes. Benzodiazepines Screen Urine Not Detected Not Detect [facility] Comment:Benzodiazepine cut-o ff is 200 ng/mL.Positive results are unconfirmed and should not be used fornon-medical purposes. Cocaine Screen Urine Not Detected Not Detect [facility] Comment:Cocaine cut-off is 3 00 ng/mL.Positive results are unconfirmed and should not be used fornon-medical purposes. Cannabinoid Screen Urine POSITIVE(A) Not Detect [facility] Comment:Cannabinoid cut-off is 50 ng/mL.Positive results are unconfirmed and should not be used fornon-medical purposes. Methadone Screen, Urine Not Detected Not Detect ng/mL [facility] Comment:Methadone cut-off is 300 ng/mL.Positive results are unconfirmed and should not be used fornon-medical purposes. FENTANYL URINE Not Detected Not Detect [facility] Comment:Fentanyl cut-off is 1 ng/mL.Positive results are unconfirmed and should not be used fornon-medical purposes. Oxycodone Urine Screen Not Detected Not Detect ng/mL [facility] Comment:Oxycodone cut-off is 100 ng/mL.Positive results are unconfirmed and should not be used fornon-medical purposes. Buprenorphine Screen Not Detected Not Detect ng/mL [facility] Comment:Buprenorphine cut-of f is 5 ng/mL.Positive results are unconfirmed and should not be used fornon-medical purposes. 04/20/2025 1:20 PM EDT 04/20/2025 1:26 PM EDT us Generic External Data Provider LAB URINE ORDERAB LES Final Result [facility] [address] [place] [address] [phone] * Ethanol (04/20/2025 1:11 PM EDT) ETHANOL (MG/DL) IN SER/PLAS <10 mg/dL [facility] Comment:Serum/plasma ethanol results are to be used formedical/treatment purposes only. 04/20/2025 1:11 PM EDT 04/20/2025 1:13 PM EDT us Generic External Data Provider LAB BLOOD ORDERAB LES Final Result [facility] [address] [place], [place] [phone] * (ABNORMAL) CBC auto differential (04/20/2025 1:11 PM EDT) White Blood Count 10.5 4.8 - 10.8 X10*3/uL [facility] Red Blood Count 4.17(L) 4.20 - 5.50 X10*6/uL [facility] Hemoglobin 12.6 12.0 - 16.0 g/dl [facility] Hematocrit 38.0 37.0 - 47.0 % [facility] Mean Corpuscular Volume 91.1 80.0 - 98.0 fL [facility] Mean Corpuscular Hemoglobin 30.2 27.0 - 33.0 pg [facility] Mean Corpuscular HGB Conc 33.2 31.0 - 35.0 g/dl [facility] Red Cell Distribution Width 13.1 11.0 - 16.0 % [facility] Platelet Count 223 160 - 400 X10*3/uL [facility] Mean Platelet Volume 9.3(L) 9.4 - 12.3 fL [facility] Neutrophils Percent Auto 73.4(H) 45 - 73 % [facility] Imm Gran Pct Auto 0.5(H) 0.0 - 0.4 % [facility] Lymphocytes Percent Auto 22.2 20 - 40 % [facility] Monocytes Percent Auto 3.8 2 - 11 % [facility] Eosinophils Percent Auto 0.0 0 - 4 % [facility] Basophils Percent Auto 0.1 0 - 2 % [facility] NRBC Pct Auto 0.0 0.0 - 0.2 /100WBC [facility] Neutrophils Absolute Auto 7.7 2.0 - 8.3 x10*3/uL [facility] Imm Gran Abs Auto 0.05(H) 0.00 - 0.03 X10*3/uL [facility] Lymphocytes Absolute Auto 2.3 1.2 - 4.9 X10*3/uL [facility] Monocytes Absolute Auto 0.4 0.1 - 1.2 X10*3/uL [facility] Eosinophils Absolute Auto 0.0 0.0 - 0.4 X10*3/uL [facility] Basophils Absolute Auto 0.0 0.0 - 0.2 X10*3/uL [facility] NRBC Abs Auto 0.000 0.0 - 0.012 X10*3/uL [facility] 04/20/2025 1:11 PM EDT 04/20/2025 1:13 PM EDT us Generic External Data Provider LAB BLOOD ORDERAB LES Final Result Performing Organization Address City/State/[facility] Co de Phone Number [facility] [address] [place] [phone] * hCG, Total, Quantitative (04/20/2025 1:11 PM EDT) HCG Quantitative 5 mIU/mL [facility] Comment:Weeks post LMP Appro ximate hCG(Last Menstrual Period) Range (mIU/ml)3 - 4 weeks 9 - 1304 - 5 weeks 75 - 2,6005 - 6 weeks 850 - 20,8006 - 7 weeks 4000 - 100,2007 - 12 weeks 11,500 - 289,92104 - 16 weeks 18,300 - 137,94782 - 29 weeks (2nd trimester) 1,400 - 53,97149 - 41 weeks (3rd trimester) 940 - [...] Provider LAB BLOOD ORDERAB LES Final Result [facility] [address] [place] [address] [phone] * (ABNORMAL) Comprehensive Metabolic Panel (04/20/2025 1:11 PM EDT) Sodium 141 135 - 145 mmol/L [facility] Potassium 3.8 3.3 - 5.1 mmol/L [facility] Chloride 106 96 - 108 mmol/L [facility] Carbon Dioxide 23 22 - 29 mmol/L [facility] Anion Gap 16 12 - 20 [facility] Urea Nitrogen (BUN) 13 9 - 16 mg/dL [facility] Creatinine, Serum 0.70 0.5 - 1.4 mg/dL [facility] Creatinine Clr Calc Pharmacy 137.7 [facility] Comment:Provided height and weight: 170.18 cm,131.995 kg.eGFR (calculated from the MDRD study equation) and eCrCl(calculated from the Cockcroft-Gault equation) are based ondifferent parameters and may not yield comparable results.If eCrCl result is absurd, please check patient'sheight/weight. Estimated Glomerular Filt Rate >60 [facility] Comment:Chronic Kidney Disea se: Estimated GFR < 60 mL/min/1.50w7Fsfwfh Kidney Disease: Estimated GFR < 15 mL/min/1.73m2 Glucose 170(H) 60 - 115 mg/dL [facility] Calcium 9.2 8.4 - 10.2 mg/dL [facility] Bilirubin, Total 0.2 0.0 - 1.0 mg/dL [facility] Aspartate Amino Transferase 21 5 - 31 U/L [facility] Alanine Aminotransferase 34(H) 0 - 31 U/L [facility] Total Protein 6.7 6.5 - 8.0 g/dL [facility] Albumin Level 4.3 3.5 - 5.0 g/dL [facility] Alkaline Phosphatase 63 39 - 117 U/L [facility] 04/20/2025 1:11 PM EDT 04/20/2025 1:13 PM EDT us Generic External Data Provider LAB BLOOD ORDERAB LES Final Result [facility] [address] [place] [phone] * (ABNORMAL) POCT HGB A1C (11/26/2024 12:00 PM EDT) Hemoglobin A1C 7.0(A) 4.0 - 6.0 % QC Media Lot # [id number] Lot# Expiration Date 220 Blood 11/26/2024 12:0 0 PM EDT us Ann-Marie Camacho MD POINT OF CARE TEST ENTER/ED IT ORDERABLES Final Result * Pap Smear (07/14/2024 10:44 AM EST) Swab 07/14/2024 10:4 4 AM EST 07/15/2024 9:15 AM EST Narrative [facility] - 07/17/2024 9:28 AM EST ----- ------- Name: Nani Sears Caryn Age/Sex: 49/F : 1975 Unit#: [id number] Attend Dr: Dulce Marvin MD Re07/14/24 Status: DEP REF Location: [facility] Disch: ----- ------- SPEC : [id number] RECD: 07/15/24 STATUS: REAGAN MARTINEZ NUM: [id number] CANDELARIO: 07/14/24 [facility] DR: Dulce Marvin MD ENTERED: 07/15/24 SP TYPE: Pap Smr OTHR DR: ORDERED: [...] Marvin MD LAB CYTOLOGY ORDERABLES Final Result [facility] [address] [place] [phone] * HPV mRNA E6/E7 w/Reflex to HPV Genotypes 16, 18/45 (07/14/2024 12:00 AM EST) Historical Provider LAB CYTOLOGY ORDERABLES F inal Result [facility] [address] [place] [phone] [phone] * BI Mammogram Screening Tomosynthesis Bilateral [...] Most Recently Relevant to Health Maintenance Insurance [facility] PPO [facility] MEDICARE REPLACEMENT [facility] Care Teams Staff Design Engineer Relationship Specialty Start Date End Date Ann-Marie Camacho MD [address] [facility] LEILA Kam13 PCP - General Internal Medicine 02/23/21
--- OUTSIDE RECORDS SUMMARY | 2025-05-21 16:18 | XMS_ITS | Encounter Summary ---
Author Organization [employer] Address [address] [place] [address] Care Team Providers Care Spine Specialist Name Role Phone Ann-Marie Camacho MD Primary Care Provider [phone] Encounter Details Date Type Department Care Team ([facility] st Contact Info) Description 12/22/2024 Orders Only [facility] CHC MED & PEDS [address] [place] [address] Laura Wan Social History Tobacco Use Types [...] Description 06/02/2025 10:00 AM EDT Office Visit [facility] CHC ADULT DENTAL [address] [place], [place] [phone] Sivakumar Carvalho, LOIS [address] [place] [address] documented as of this encounter Procedures Procedure Name Priority Date/Time Associated Diagnosis Comments HPV MRNA E6/E7 REFLEX TO HPV 16, 18/45 Routine 07/14/2024 12:00 AM EST documented in this encounter Results * HPV mRNA E6/E7 w/Reflex to HPV Genotypes 16, 18/45 (07/14/2024 12:00 AM EST) us Historical Provider LAB CYTOLOGY ORDERABLES F inal Result [facility] [address] [place] [phone] documented in this encounter Visit Diagnoses Not on filedocumented in this encounter Additional Health Concerns Assessment Noted Time PHQ-9 Depression Total Score: 0 11/27/19 25 11:30 AM EDT documented as of this encounter Care Teams Spine Specialist Relationship Specialty Start Date End Date Ann-Marie Camacho MD [address] [place] [address] PCP - General Internal Medicine 02/23/21 documented as of this encounter
--- OUTSIDE RECORDS SUMMARY | 2025-05-21 16:18 | XMS_ITS | Encounter Summary ---
Author Organization [employer] Address [address] [place] [address] [address] [place] [address] Care Team Providers Care Mechanist Name Role Phone Ann-Marie Camacho MD Primary Care Provider [phone] Reason for Referral * Imaging (Routine) - Closed Specialty Diagnoses / Procedures Referred By Millicent moore Referred To Contact Radiology Diagnoses Transaminitis Procedures US Abdomen Comp w elastography Ann-Marie Camacho MD [address] [place] [address] Phone: tel: fax: [address] Phone: tel: fax: Referral ID Status Reason Start Date Expiration Date Visits Re quested Visits Authorized [id number] Closed 04/30/2025 04/30/2026 1 1 Encounter Details Date Type Department Care Team (Late st Contact Info) Description 04/30/2025 Orders Only [facility] CHC MED & PEDS [address] [place], [place] [phone] Ann-Marie Camacho MD [address] [place], [place] [phone] Transaminitis (Primary Dx); Pure hypercholesterolemia; Nausea Social History Tobacco Use Types Packs/Day [...] Upcoming Encounters Date Type Department Care Team ([facility] st Contact Info) Description 06/02/2025 10:00 AM EDT Office Visit [facility] CHC ADULT DENTAL [address] [place] [address] Sivakumar Carvalho, LOIS [address] [place] [address] Scheduled Orders Name Type Priority Associated Diagnoses Orde r Schedule Smooth Muscle Antibody with Reflex to Titer Lab Routine Transaminitis Expected: 04/30/2025 (Approximate), Expires: 04/30/2026 Alpha 1 Antitrypsin Lab Routine Transaminitis Expected: 04/30/2025 (Approximate), Expires: 04/30/2026 documented as of this encounter Procedures Procedure Name Priority Date/Time Associated Diagnosis Comments US ABDOMEN COMPLETE WITH ELASTOGRAPHY Routine 2025 Transaminitis HEPATITIS C AB W/REFL TO HCV RNA, QN, PCR Routine 05/03/2025 11:50 AM EDT Transaminitis HEPATITIS B SURFACE ANTIBODY, QUALITATIVE Routine 05/03/2025 11:50 AM EDT Transaminitis PROTHROMBIN TIME-INR Routine 05/03/2025 11:50 AM EDT Transaminitis IMMUNOGLOBULINS, QUANTITATIVE, IGA, IGG, IGM Routine 05/03/2025 11:50 AM EDT Transaminitis documented in this encounter Results * US Abdomen Comp w elastography (2025) Anatomical Region Laterality Modality Abdomen Ultrasound us Ann-Marie Camacho MD IMG US PROCEDURES Final Res ult * Hepatitis C Antibody with Reflex to HCV, RNA, Quantitative, Real-Time PCR (05/03/2025 11:50 AM EDT) Hepatitis C Antibody Nonreactive Nonreactive [facility] Comment:Antibodies to HCV no t detected; does not exclude early acuteHCV infection. Blood Venous blood specimen / Unknown 05/03/2025 11:50 AM EDT 05/03/2025 2:52 PM EDT us Ann-Marie Camacho MD LAB BLOOD ORDERABLES Final Result [facility] [address] [place] [phone] * (ABNORMAL) Prothrombin Time-INR (05/03/2025 11:50 AM EDT) Prothrombin Time 10.2(L) 10.9 - 12.4 SEC [facility] INTERNATIONAL NORM RATIO 0.9 0.9 - 1.1 [facility] Comment:INTERNATIONAL NORMAL IZED RATIO (INR) REFERENCE [...] BLOOD ORDERABLES Final Result Performing Organization Address [facility] Phone Number [facility] [address] [place] [phone] * (ABNORMAL) Immunoglobulins, Quantitative, IgA, IgG, IgM (05/03/2025 11:50 AM EDT) Pathologist [facility] IMMUNOGLOBULIN G 889 600 - 1640 mg/dL [facility] IMMUNOGLOBULIN A 224 47 - 310 mg/dL [facility] Immunoglobulin M 19(A) 50 - 300 mg/dL [facility] Comment:THIS TEST WAS PERFOR MED AT:[employer] [address] [phone] FOSS MD Blood Venous blood specimen / Unknown 05/03/2025 11:50 AM EDT 05/03/2025 2:52 PM EDT us Ann-Marie Camacho MD LAB BLOOD ORDERABLES Final Result Performing Organization Address [facility] de Phone Number [facility] [address] [place] [phone] * Hepatitis B Surface Antibody, Qualitative (05/03/2025 11:50 AM EDT) Pathologist [facility] ~Hepatitis B Surface Antibody REACTIVE Nonreactive [facility] Comment:REACTIVE: > 11.99 mI U/mL Blood Venous blood specimen / Unknown 05/03/2025 11:50 AM EDT 05/03/2025 2:52 PM EDT us Ann-Marie Camacho MD LAB BLOOD ORDERABLES Final Result [facility] [address] [place] [address] [phone] documented in this encounter Visit Diagnoses Diagnosis Transaminitis- Primary Nonspecific elevation of levels of transaminase or lactic acid dehydrogenase (LDH) Pure hypercholesterolemia Nausea Nausea alone documented in this encounter Additional Health Concerns Assessment Noted Time PHQ-9 Depression Total Score: 0 11/27/19 25 11:30 AM EDT documented as of this encounter Care Teams Mechanist Relationship Specialty Start Date End Date Ann-Marie Camacho MD [address] [place] [phone] PCP - General Internal Medicine 02/23/21 documented as of this encounter
--- OUTSIDE RECORDS SUMMARY | 2025-05-21 16:18 | XMS_ITS | Encounter Summary ---
Author Organization [employer] Address [address] [facility] [address] [place] [address] Care Team Providers Care Email Deployment Specialist Name Role Phone Ann-Marie Camacho MD Primary Care Provider [phone] Encounter Details Date Type Department Care Team (Late st Contact Info) Description 01/21/2025 Orders Only [facility] [address] [place] [address] ProviderRoseanna MD Social History Tobacco Use Types [...] 10:00 AM EDT Office Visit [facility] ADULT DENTAL [address] [place], [place] [phone] Sivakumar Carvalho, LOIS [address] [place] [address] documented as of this encounter Procedures Procedure Name Priority Date/Time Associated Diagnosis Comments CT ABDOMEN PELVIS W CONTRAST Routine 01/21/2025 2:26 PM EDT documented in this encounter Results * CT Abdomen Pelvis w/ Contrast (01/21/2025 2:26 PM EDT) Anatomical Region Laterality Modality Body, Pelvis, Abdomen Computed T omography us Historical Provider MD ELIAS CT PROCEDURES Final R esult documented in this encounter Visit Diagnoses Not on filedocumented in this encounter Additional Health Concerns Assessment Noted Time PHQ-9 Depression Total Score: 0 11/27/19 25 11:30 AM EDT documented as of this encounter Care Teams Email Deployment Specialist Relationship Specialty Start Date End Date Ann-Marie Camacho MD [address] [place], [place] [phone] PCP - General Internal Medicine 02/23/21 documented as of this encounter
--- OUTSIDE RECORDS SUMMARY | 2025-05-21 16:18 | XMS_ITS | Encounter Summary ---
Author Organization [employer] Address [address] [facility] [address] [place] [address] Care Team Providers Care Guide Cruise Name Role Phone Ann-Marie Camacho MD Primary Care Provider [phone] Reason for Visit * Reason Comments Med Refill Encounter Details Date Type Department Care Team (Late Contact Info) Description 10/23/2022 Refill [facility] [address] [place], [place] [phone] Ann-Marie Camacho MD [address] [place], [place] [phone] Type 2 diabetes mellitus without complication, without long-term current use of insulin ([facility]) Social History Tobacco Use Types Packs/Day Years [...] Description 06/02/2025 10:00 AM EDT Office Visit [facility]ULT D[facility] [address] [place], [place] [phone] Sivakumar Carvalho DMD [address] [place] [address] documented as of this encounter Visit Diagnoses Diagnosis Type 2 diabetes mellitus without complication, without long-term current use of insulin ([facility]) documented in this encounter Additional Health Concerns Assessment Noted Time PHQ-9 Depression Total Score: 6 09/03/19 23 1:13 PM EST documented as of this encounter Care Teams Guide Cruise Relationship Specialty Start Date End Date Ann-Marie Camacho MD [address] [place] [address] PCP - General Internal Medicine 02/23/21 documented as of this encounter
--- OUTSIDE RECORDS SUMMARY | 2025-05-21 16:19 | XMS_ITS | Encounter Summary ---
Author Organization [employer] Address [address] [facility] [address] [place] [address] Care Team Providers Care Mail Clerks Supervisor Name Role Phone Ann-Marie Camacho MD Primary Care Provider [phone] Encounter Details Date Type Department Care Team ([facility] Contact Info) Description 05/07/2025 Telephone [facility] CHC MED & PEDS [address] [place], [place] [phone] Ann-Marie Camacho MD [address] [place] [address] Social History Tobacco Use Types Packs/Day Years [...] encounter Miscellaneous Notes * Telephone Encounter - Millie Brice RN - 05/07/2025 11:36 AM EDT Patient walk-in requesting lab results. Will route to provider for review. documented in this encounter Plan of Treatment Upcoming Encounters Date Type Department Care Team (Late st Contact Info) Description 06/02/2025 10:00 AM EDT Office Visit [facility] CHC ADULT DENTAL [address] [place] [address] Sivakumar Carvalho, LOIS [address] [place] [address] documented as of this encounter Visit Diagnoses Not on filedocumented in this encounter Additional Health Concerns Assessment Noted Time PHQ-9 Depression Total Score: 0 11/27/19 25 11:30 AM EDT documented as of this encounter Care Teams Mail Clerks Supervisor Relationship Specialty Start Date End Date Ann-Marie Camacho MD [address] [place] [address] PCP - General Internal Medicine 02/23/21 documented as of this encounter
--- OUTSIDE RECORDS SUMMARY | 2025-05-21 16:19 | XMS_ITS | Encounter Summary ---
Author Organization [employer] Address [address] [place] [address] Care Team Providers Care Green Prize Packer Name Role Phone Ann-Marie Camacho MD Primary Care Provider [phone] Encounter Details Date Type Department Care Team (Latest Contact Info) Description 05/21/2025 Travel Social History Tobacco Use Types Packs/Day [...] Description 06/02/2025 10:00 AM EDT Office Visit [facility] CHC ADULT DENTAL [address] [place] [address] Sivakumar Carvalho DMD [address] [place] [address] documented as of this encounter Visit Diagnoses Not on filedocumented in this encounter Additional Health Concerns Assessment Noted Time PHQ-9 Depression Total Score: 0 11/27/19 25 11:30 AM EDT documented as of this encounter Care Teams Green Prize Packer Relationship Specialty Start Date End Date Ann-Marie Camacho MD [address] [place] [address] PCP - General Internal Medicine 02/23/21 documented as of this encounter
--- OUTSIDE RECORDS SUMMARY | 2025-05-21 16:19 | XMS_ITS | Clinical Summary ---
Author Organization [facility] [place] [address] Phone Care Team Providers Care Employer Relations Representative Name Role Phone Ann-Marie Camacho MD Primary Care Provider [phone] Allergies Active Allergy Reactions Criticality Noted Date Comments Adhesive Rash Low 03/20/2023 Other Reaction(s): adhesive on patches-skin irritations Artichoke Rash Low 08/15/2022 artichoke Carbamazepine 01/02/2022 Other Reaction(s): MIGRAINES Cariprazine 01/02/2022 Other Reaction(s): LEG CRAMPS Clindamycin Other 11/19/2024 Reports when taking feels like throat enriquez Dicyclomine Hallucinations 09/16/2024 Fentanyl Rash Low 03/20/2023 Lamotrigine Rash Low 01/02/2022 Realitos Other High 01/02/2022 Other Reaction(s): bad reaction [...] Benign essential hypertension 08/15/2022 Bipolar disorder ([facility] V24, [facility] V28) 122 08/2021 Hyperlipidemia 08/15/2022 [...] 08/15/2022 Psychogenic pain 08/15/2022 Severe obesity ([facility] V24, [facility] V28) 2021 Somatization disorder 08/15/2022 [...] Encounters Date Type Department Care Team Description 2025 7:38 AM EDT - 2025 11:59 PM EDT Hospital Encounter [facility] Ultrasound [address] [place] [id number] Transaminitis Discharge Disposition: Home or Self Care 2025 7:34 AM EDT - 2025 11:59 PM EDT Hospital Encounter [facility] Ultrasound [address] [place] [phone] Transaminitis Discharge Disposition: Home or Self Care 03/20/2025 5:18 PM EDT - 03/20/2025 6:45 PM EDT Emergency [facility] Emergency [address] [place] [phone] Tyrese Grover MD Fecal impaction ([facility] V24, [facility] V28) (Primary Dx) Discharge Disposition: Home or Self Care 03/14/2025 5:14 PM EDT - 03/14/2025 7:38 PM EDT Emergency [facility] Emergency [address] [place] [phone] Indra Tejeda MD Intractable migraine without aura [...] History Date Comments Hypertension Diabetes mellitus ([facility] V24, [facility] V28) Hypercholesteremia Depression Anxiety Gastroparesis [...] 06/26/2024 Zoster Vaccines (1 of 2) 2025 Diabetes: Blood Sugar Control Test (HGBA1C) 05/28/2025 11/26/2024, 08/31/2024 Diabetes: Annual Retina Eye Exam 10/27/2025 10/27/2024 Diabetes: Annual GFR (Glomerular Filtration Rate) 04/20/2026 04/20/2025, 03/14/2025, 01/21/2025, Additional history exists Hypertension/CHF/CAD Annual BMP Blood Test 04/20/2026 04/20/2025, 03/14/2025, 01/21/2025, Additional history exists Cervical Cancer Screening: Pap Smear 07/14/2027 07/14/2024 Cholesterol Screening (Lipid Panel) 04/29/2030 04/29/2025, 12/22/2024, 07/13/2024 DTaP,Tdap,and Td Vaccines (2 - Td or Tdap) 05/10/2030 05/10/2020 Colorectal Cancer Screening: Colonoscopy 03/02/2035 03/02/2025 RSV Immunization Adult Patients (1 - 1-dose 75+ series) 2050 Pneumococcal [...] Priority Date/Time Associated Diagnosis Comments US ABDOMEN LIMITED Routine 2025 8: 05 AM EDT Transaminitis CBC WITH AUTO DIFFERENTIAL STAT 03/14/2025 5:29 PM EDT COMPREHENSIVE METABOLIC PANEL STAT 03/14/2025 5:29 PM EDT CBC AND DIFFERENTIAL STAT 03/14/2025 5:29 PM EDT COLONOSCOPY Routine 03/02/2025 9:37 AM EDT from Last 3 Months Results * US Abdomen Limited (2025 8:05 AM EDT) Anatomical Region Laterality Modality Body Ultrasound 05/13/2025 3:41 PM EDT Impressions 05/13/2025 3:45 PM EDT Echogenic hepatic parenchyma suggestive of steatosis. Cholecystectomy. Hepatic elastography performed, with a Vmean of 1.5 cm/s. Hepatic elastography measurements: Vmean less than 1.3 m/s: High probability of being normal. Vmean 1.3-1.7 m/s: In the absence of other known clinical signs, rules out compensated advanced chronic liver disease. If there are clinical signs, may need further testing for confirmation. Vmean 1.7-2.1 m/s: suggestive of compensated advanced chronic liver disease but further testing needed for confirmation. Vmean 2.1-2.4 m/s: rules in compensated advanced chronic liver disease. Vmean greater than 2.4 m/s: suggestive of clinically significant portal hypertension. -------- FINAL REPORT -------- Dictated By: Weston Frias Dictated Date: 05/13/2025 15:41 ET Assigned Physician: Weston Frias Reviewed and Electronically Signed By: Weston Frias Signed Date: 05/13/2025 15:45 ET Workstation ID: [id number] Transcribed By: Self Edit Transcribed Date: 05/13/2025 15:41 ET Narrative 05/13/2025 3:45 PM EDT PROCEDURE: Right upper quadrant ultrasound. HISTORY: transaminitis. COMPARISON: CT dated 01/21/2025. TECHNIQUE: Grayscale, color Doppler, and spectral Doppler ultrasound evaluation of the right upper quadrant of the abdomen. FINDINGS: LIVER: Echogenic parenchyma. Residual septated cyst in the left lobe measuring 1.7 x 1.8 x 1.8 cm.. Normal flow in the main portal vein. Hepatic elastography performed, with a Vmean of 1.5 m/s. BILIARY: Cholecystectomy. The common duct is mildly prominent, measuring 6 mm. This is likely due to a postcholecystectomy reservoir effect. No visible ductal filling defect. PANCREAS: Visualized portions are normal. RIGHT KIDNEY: Normal size and echotexture. No hydronephrosis or focal lesion. Procedure Note Weston Frias MD - 05/13/2025 PROCEDURE: Right upper quadrant ultrasound. HISTORY: transaminitis. COMPARISON: CT dated 01/21/2025. TECHNIQUE: Grayscale, color Doppler, and spectral Doppler ultrasoundevaluation of the right upper quadrant of the abdomen. FINDINGS: LIVER: Echogenic parenchyma. Residual septated cyst in the left lobemeasuring 1.7 x 1.8 x 1.8 cm.. Normal flow in the main portal vein.Hepatic elastography performed, with a Vmean of 1.5 m/s. BILIARY: Cholecystectomy. The common duct is mildly prominent, measuring6 mm. This is likely due to a postcholecystectomy reservoir effect. Novisible ductal filling defect. PANCREAS: Visualized portions are normal. RIGHT KIDNEY: Normal size and echotexture. No hydronephrosis or focallesion. IMPRESSION: Echogenic hepatic parenchyma suggestive of steatosis. Cholecystectomy. Hepatic elastography performed, with a Vmean of 1.5 cm/s. Hepatic elastography measurements: Vmean less than 1.3 m/s: High probability of being normal. Vmean 1.3-1.7 m/s: In the absence of other known clinical signs, rules outcompensated advanced chronic liver disease. If there are clinical signs,may need further testing for confirmation. Vmean 1.7-2.1 m/s: suggestive of compensated advanced chronic liverdisease but further testing needed for confirmation. Vmean 2.1-2.4 m/s: rules in compensated advanced chronic liver disease. Vmean greater than 2.4 m/s: suggestive of clinically significant portalhypertension. -------- FINAL REPORT -------- Dictated By: Weston Frias Dictated Date: 05/13/2025 15:41 ET Assigned Physician: Weston Frias Reviewed and Electronically Signed By: Weston Frias Signed Date: 05/13/2025 15:45 ET Workstation ID: [id number] Transcribed By: Self Edit Transcribed Date: 05/13/2025 15:41 ET us Ann-Marie Camacho MD [facility] US PROCEDURES Final R esult * CBC auto differential (03/14/2025 5:29 PM EDT) [facility] WBC 10.4 4.8 - 10.8 K/mcL LAB HEMETOLOGY METHOD 03/14/2025 5:48 PM EDT [facility] RBC 4.40 3.80 - 4.80 M/mcL LAB HEMETOLOGY METHOD 03/14/2025 5:48 PM EDT [facility] Hemoglobin 13.3 11.5 - 16.0 g/dL LAB HEMETOLOGY METHOD 03/14/2025 5:48 PM EDT [facility] Hematocrit 39.7 35.0 - 47.0 % LAB HEMETOLOGY METHOD 03/14/2025 5:48 PM EDT [facility] MCV 90.4 79.0 - 98.0 FL LAB HEMETOLOGY METHOD 03/14/2025 5:48 PM EDT [facility] MCH 30.3 27.0 - 32.0 pcg LAB HEMETOLOGY METHOD 03/14/2025 5:48 PM EDT [facility] MCHC 33.5 32.0 - 37.0 g/dL LAB HEMETOLOGY METHOD 03/14/2025 5:48 PM EDT [facility] RDW 13.2 11.0 - 15.0 % LAB HEMETOLOGY METHOD 03/14/2025 5:48 PM EDT [facility] Platelets 234 130 - 400 K/mcL LAB HEMETOLOGY METHOD 03/14/2025 5:48 PM EDT [facility] MPV 10.1 7.0 - 11.0 FL LAB HEMETOLOGY METHOD 03/14/2025 5:48 PM EDT [facility] NRBC 0.0 <1.0 % LAB HEMETOLOGY METHOD 03/14/2025 5:48 PM EDT [facility] NRBC Absolute 0.00 <0.10 K/mcL LAB HEMETOLOGY METHOD 03/14/2025 5:48 PM EDT [facility] Neutrophils Relative 62.3 % LAB HEMETOLOGY METHOD 03/14/2025 5:48 PM EDT [facility] Lymphocytes Relative 32.3 % LAB HEMETOLOGY METHOD 03/14/2025 5:48 PM EDT [facility] Monocytes Relative 4.9 % LAB HEMETOLOGY METHOD 03/14/2025 5:48 PM EDT [facility] Eosinophils Relative 0.1 % LAB HEMETOLOGY METHOD 03/14/2025 5:48 PM EDT [facility] Basophils Relative 0.1 % LAB [facility]OLOGY [facility] Immature Granulocytes Relative 0.3 % LAB HEMETOLOGY METHOD [facility]/14[facility]25 [facility] Neutrophils Absolute 6.45 1.50 - 7.00 K/mcL LAB HEMETOLOGY METHOD 03/14[facility]2025 5[facility] Lymphocytes Absolute 3.35 1.00 - 5.00 K/mcL LAB HEMETOLOGY METHOD 03/14/2025 5:[facility] Monocytes Absolute 0.51 0.20 - 1.00 K/mcL LAB HEMETOLOGY METHOD 03/14/2025 5:48 PM EDT [facility] Eosinophils Absolute 0.01 0.00 - 0.50 K/mcL LAB HEMETOLOGY METHOD 03/14/2025 5:48 PM EDT [facility] Basophils Absolute 0.01 0.00 - 0.20 K/mcL LAB HEMETOLOGY METHOD 03/14/2025 5[facility] Immature Granulocytes Absolute 0.03 0.00 - 0.03 K/mcL LAB HEMETOLOGY METHOD 03/14/2025 5:48 PM [facility] Blood Venous blood specimen / Unknown Venipuncture / Unknown 03/14/2025 5:29 PM EDT 03/14/2025 5:33 PM EDT us Indra Tejeda MD LAB BLOOD ORDERABLES Final Resul t [facility] [address] [place] [address], [place] [phone] * (ABNORMAL) Comprehensive metabolic panel (03/14/2025 5:29 PM EDT) Sodium 141 133 - 145 mmol/L LAB CHEMISTRY METHOD 03/14/2025 6:02 PM [facility] Potassium 3.8 3.5 - 5.5 mmol/L LAB CHEMISTRY METHOD 03/14/2025 6:02 PM [facility] Chloride 109 96 - 110 mmol/L LAB CHEMISTRY METHOD 03/14/2025 6:02 PM [facility] CO2 25 21 - 32 mmol/L LAB CHEMISTRY METHOD 03/14/2025 6:02 PM [facility] Anion Gap 7 3 - 11 LAB CHEMISTRY METHOD 03/14/2025 6:02 PM [facility] Glucose 120(H) 70 - 100 mg/dL LAB CHEMISTRY METHOD 03/14/2025 6:02 PM [facility] BUN 16 5 - 25 mg/dL LAB CHEMISTRY METHOD 03/14/2025 6:02 PM [facility] Creatinine 0.77 0.50 - 1.10 mg/dL LAB CHEMISTRY METHOD 03/14/2025 6:02 PM [facility] eGFR 95 >=60 mL/min/1. 73m2 LAB CHEMISTRY METHOD 03/14/2025 6:02 PM [facility] Comment:Calculation based on the Chronic Kidney Disease Epidemiology Collaboration (CKD-EPI) equation refit without adjustment for race. BUN/Creatinine Ratio 20.8 LAB CHEMISTRY METHOD 03/14/2025 6:02 PM [facility] Calcium 9.0 8.5 - 10.5 mg/dL LAB CHEMISTRY METHOD 03/14/2025 6:02 PM [facility] AST (SGOT) 23 10 - 42 unit/L LAB CHEMISTRY METHOD 03/14/2025 6:02 PM [facility] ALT (SGPT) 39 10 - 60 unit/L LAB CHEMISTRY METHOD 03/14/2025 6:02 PM [facility] Alkaline Phosphatase 67 42 - 121 unit/L LAB CHEMISTRY METHOD 03/14/2025 6:02 PM [facility] Total Protein 7.0 6.0 - 8.0 g/dL LAB CHEMISTRY METHOD 03/14/2025 6:02 PM [facility] Albumin 3.8 3.2 - 5.0 g/dL LAB CHEMISTRY METHOD 03/14/2025 6:02 PM [facility] Total Bilirubin 0.2 0.0 - 1.4 mg/dL LAB CHEMISTRY METHOD 03/14/2025 6:02 PM [facility] Blood Venous blood specimen / Unknown Venipuncture / Unknown 03/14/2025 5:29 PM EDT 03/14/2025 5:33 PM EDT Indra Tejeda MD LAB BLOOD ORDERABLES Final Resul t [facility] [address] [place] [address], * COLONOSCOPY (03/02/2025 9:37 AM EDT) Anatomical Region Laterality Modality Endoscopy us Historical Provider GI~PROCEDURE ORDERABLES F inal Result from Last 3 Months Insurance [employer] MEDICARE [facility]) Care Teams Employer Relations Representative Relationship Specialty Start Date End Date Ann-Marie Camacho MD [address] [facility] [place] [address] PCP - General Internal Medicine 11/16/24
--- OUTSIDE RECORDS SUMMARY | 2025-05-21 16:19 | XMS_ITS | Encounter Summary ---
Author Organization [employer] Address [address] [facility] 7t [place] [address] Care Team Providers Care Secondary School Teacher Librarian Name Role Phone Ann-Marie Camacho MD Primary Care Provider [phone] Reason for Visit * Reason Onset Date Comments Nurse Triage 04/28/2025 Encounter Details Date Type Department Care Team (Late st Contact Info) Description 04/28/2025 Telephone [facility] MEDICINE [address] [place] [address] Ann-Marie Camacho MD [address] [place], [place] [phone] Nurse Triage Social History Tobacco Use Types [...] caller accepted this outcome. Contact pt at [phone] documented in this encounter Plan of Treatment Upcoming Encounters Date Type Department Care Team ([facility] st Contact Info) Description 06/02/2025 10:00 AM EDT Office Visit [facility] ADULT DENTAL [address] [place] [address] Sivakumar Carvalho, DMD [address] [place] [address] documented as of this encounter Visit Diagnoses Not on filedocumented in this encounter Additional Health Concerns Assessment Noted Time PHQ-9 Depression Total Score: 0 11/27/19 25 11:30 AM EDT documented as of this encounter Care Teams Secondary School Teacher Librarian Relationship Specialty Start Date End Date Ann-Marie Camacho MD [address] [place] [address] PCP - General Internal Medicine 02/23/21 documented as of this encounter
--- OUTSIDE RECORDS SUMMARY | 2025-05-21 16:19 | XMS_ITS | Encounter Summary ---
Author Organization [employer] Address [address] [facility] [address] [place] [address] Care Team Providers Care Chemical Etch Operator Name Role Phone Ann-Marie Camacho MD Primary Care Provider [phone] Reason for Visit * Reason Comments Med Refill Encounter Details Date Type Department Care Team ([facility] Contact Info) Description 05/19/2025 Refill [facility] CHC MED & PEDS [address] [place], [place] [phone] Ann-Marie Camacho MD [address] [place], [place] [phone] Type 2 diabetes mellitus without complication, without long-term current use of insulin ([facility]) Social History Tobacco Use Types Packs/Day Years [...] Description 06/02/2025 10:00 AM EDT Office Visit [facility] CHC ADULT DENTAL [address] [place] [address] Sivakumar Carvalho, DMD [address] [place] [address] documented as of this encounter Visit Diagnoses Diagnosis Type 2 diabetes mellitus without complication, without long-term current use of insulin ([facility]) documented in this encounter Additional Health Concerns Assessment Noted Time PHQ-9 Depression Total Score: 0 11/27/19 25 11:30 AM EDT documented as of this encounter Care Teams Chemical Etch Operator Relationship Specialty Start Date End Date Ann-Marie Camacho MD [address] [place] [address] PCP - General Internal Medicine 02/23/21 documented as of this encounter
--- OUTSIDE RECORDS SUMMARY | 2025-05-21 16:19 | XMS_ITS | Encounter Summary ---
Author Organization [employer] Address [address] [facility] [address] [place] [address] Care Team Providers Care Intensive Care Nurse Name Role Phone Ann-Marie Camacho MD Primary Care Provider [phone] Reason for Visit * Reason Onset Date Comments Results 01/15/2024 FYI 01/15/2024 Encounter Details Date Type Department Care Team ([facility] st Contact Info) Description 01/15/2024 Telephone [facility] MEDICINE [address] [place], [place] [phone] Ann-Marie Camacho MD [address] [place], [place] [phone] Results; Social History Tobacco Use Types Packs/Day [...] Description 06/02/2025 10:00 AM EDT Office Visit [facility] ADULT DENTAL [address] [place] [address] Sivakumar Carvalho, LOIS [address] [place] [address] documented as of this encounter Visit Diagnoses Not on filedocumented in this encounter Additional Health Concerns Assessment Noted Time PHQ-9 Depression Total Score: 6 09/03/19 23 1:13 PM EST documented as of this encounter Care Teams Intensive Care Nurse Relationship Specialty Start Date End Date Ann-Marie Camacho MD [address] [place] [address] PCP - General Internal Medicine 02/23/21 documented as of this encounter
--- OUTSIDE RECORDS SUMMARY | 2025-05-21 16:19 | XMS_ITS | Encounter Summary ---
Author Organization [employer] Address [address] [place] [address] [address] [place] [address] Care Team Providers Care Watch Caser Name Role Phone Ann-Marie Camacho MD Primary Care Provider [phone] Reason for Visit * Reason Onset Date Comments Error 10/22/2023 Encounter Details Date Type Department Care Team ([facility] Contact Info) Description 10/22/2023 Telephone [facility] MEDICINE [address] [place], [place] [phone] Ann-Marie Camacho MD [address] [place], [place] [phone] Error Social History Tobacco Use Types Packs/Day [...] Upcoming Encounters Date Type Department Care Team ([facility] Contact Info) Description 06/02/2025 10:00 AM EDT Office Visit [facility] CHC ADULT DENTAL [address] [place], [place] [phone] Sivakumar Carvalho DMD [address] [place], [place] [phone] documented as of this encounter Visit Diagnoses Not on filedocumented in this encounter Additional Health Concerns Assessment Noted Time PHQ-9 Depression Total Score: 6 09/03/19 23 1:13 PM EST documented as of this encounter Care Teams Watch Caser Relationship Specialty Start Date End Date Ann-Marie Camacho MD [address] [place] [address] PCP - General Internal Medicine 02/23/21 documented as of this encounter
--- OUTSIDE RECORDS SUMMARY | 2025-05-21 16:19 | XMS_ITS | Encounter Summary ---
Author Organization [employer] Address [address] [facility] [address] [address] Care Team Providers Care Compacting Machine Operator/Tender Name Role Phone Ann-Marie Camacho MD Primary Care Provider [phone] Encounter Details Date Type Department Care Team (Late st Contact Info) Description 06/25/2024 Orders Only [facility] [address] [place] [address] ProviderRoseanna MD Social History Tobacco Use Types [...] Description 06/02/2025 10:00 AM EDT Office Visit [facility] ADULT DENTAL [address] [place] [address] Sivakumar Carvalho, LOIS [address] [place], [place] [phone] documented as of this encounter Procedures Procedure [...] documented as of this encounter Care Teams Compacting Machine Operator/Tender Relationship Specialty Start Date End Date Ann-Marie Camacho MD [address] [place] [address] PCP - General Internal Medicine 02/23/21 documented as of this encounter
--- OUTSIDE RECORDS SUMMARY | 2025-05-21 16:19 | XMS_ITS | Encounter Summary ---
Author Organization [email or web address] Address [address] [facility] [address] [place] [address] Care Team Providers Care Account Auditor Name Role Phone Ann-Marie Camacho MD Primary Care Provider [phone] Encounter Details Date Type Department Care Team (Latest Contact Info) Description 07/13/2024 Orders Only [facility] CHC MED & PEDS [address] [place], [place] [phone] Ann-Marie Camacho MD [address] [place], [place] [phone] Pure hypercholesterolemia (Primary Dx) Social History Tobacco [...] Description 06/02/2025 10:00 AM EDT Office Visit [facility] CHC ADULT DENTAL [address] [place] [address] Sivakumar Carvalho DMD [address] [place] [address] documented as of this encounter Visit Diagnoses Diagnosis Pure hypercholesterolemia- Primary documented in this encounter Additional Health Concerns Assessment Noted Time PHQ-9 Depression Total Score: 6 09/03/19 23 1:13 PM EST documented as of this encounter Care Teams Account Auditor Relationship Specialty Start Date End Date Ann-Marie Camacho MD [address] [place] [address] PCP - General Internal Medicine 02/23/21 documented as of this encounter
--- OUTSIDE RECORDS SUMMARY | 2025-05-21 16:19 | XMS_ITS | Encounter Summary ---
Author Organization [employer] Address [address] [facility] [address] [place] [address] Care Team Providers Care First Aid Instructor Name Role Phone Ann-Marie Camacho MD Primary Care Provider [phone] Reason for Visit * Reason Onset Date Comments Nurse Triage 05/04/2025 Encounter Details Date Type Department Care Team (Late st Contact Info) Description 05/04/2025 Telephone [facility] MEDICINE [address] [place] [address] Ann-Marie Camacho MD [address] [place], [place] [phone] Nurse Triage Social History Tobacco Use Types [...] encounter Miscellaneous Notes * Telephone Encounter - Tonya Guerrero RN - 05/04/2025 12:01 PM EDT Called pt. She states that she has been feeling run down, tired, vomiting x 2 days. Pt. Did Covid test this am- NEGATIVE. Pt. Is wondering what Dr. Camacho's thoughts are about her labs that came back abnormal. Pt. States she had Blood work at [facility] last week which showed low platelets, abnormal PTT, abnormal Immunoglobulins and abnormal hepatic function panel. Pt. States she does have an upcomingUS of Abdomen as she is taking a medication that can affect her liver and lower her immune system. Pt. Has not noticed any bruising on body. Pt. Would like a call back explaining what her lab tests are revealing. Please advise and have CH[facility] team nurse call pt. Back or PCP call pt. Back to discuss. Protocol Used: Weakness (Generalized) and Fatigue (Adult) Protocol-Based Disposition: See in Office or Video Visit within 2 Weeks Positive Triage Questions: * Weakness is a chronic symptom (recurrent or ongoing AND lasting > 4 weeks) * Fatigue is a chronic symptom (recurrent or ongoing AND present > 4 weeks) * All higher-acuity triage questions were negative * Telephone Encounter - Leonardo Anderson - 05/04/2025 11:43 AM EDT Symptom: COVID-19 Exposure (No Symptoms) Outcome: Schedule a same-day appointment or talk to a nurse or provider today Reason: This is the only possible outcome for this symptom Please contact pt at [phone]. documented in this encounter Plan of Treatment Upcoming Encounters Date Type Department Care Team ([facility] st Contact Info) Description 06/02/2025 10:00 AM EDT Office Visit [facility] ADULT DENTAL [address] [place] [address] Sivakumar Carvalho, DMD [address] [place], [place] [phone] documented as of this encounter Visit Diagnoses Not on filedocumented in this encounter Additional Health Concerns Assessment Noted Time PHQ-9 Depression Total Score: 0 11/27/19 25 11:30 AM EDT documented as of this encounter Care Teams First Aid Instructor Relationship Specialty Start Date End Date Ann-Marie Camacho MD [address] [place] [address] PCP - General Internal Medicine 02/23/21 documented as of this encounter
[2025-05-21 18:04] LABS: MANUAL DIFF FLAG NO
[2025-05-21 18:13] LABS: Hematocrit 39.2 % (37.0-47.0); Hemoglobin 13.2 g/dl (12.0-16.0); Imm Gran Abs Auto 0.03 X10*3/uL (0.00-0.03); Imm Gran Pct Auto 0.3 % (0.0-0.4); Lymphocytes Absolute Auto 3.3 X10*3/uL (1.2-4.9); Mean Corpuscular HGB Conc 33.7 g/dl (31.0-35.0); Mean Corpuscular Hemoglobin 30.7 pg (27.0-33.0); Mean Corpuscular Volume 91.2 fL (80.0-98.0); NRBC Abs Auto 0.000 X10*3/uL (0.0-0.012); NRBC Pct Auto 0.0 /100WBC (0.0-0.2); Platelet Count 256 X10*3/uL (160-400); Red Blood Count 4.30 X10*6/uL (4.20-5.50); White Blood Count 9.8 X10*3/uL (4.8-10.8)
[2025-05-21 18:36] LABS: Anion Gap 14 (12-20); Blood Urea Nitrogen 9 mg/dL (9-16); Calcium 9.2 mg/dL (8.4-10.2); Carbon Dioxide 26 mmol/L (22-29); Chloride 107 mmol/L (96-108); Estimated Glomerular Filt Rate > 60; Potassium 3.6 mmol/L (3.3-5.1); Sodium 143 mmol/L (135-145)
== END 2025-05-21 16:16 | disposition home or self-care (01) ==
LOC: HO.CHCLDS 16:15
PROVIDERS: Visit Provider Internal Medicine
DX: R53.83 Other fatigue (principal)
CPT/HCPCS: 36415; 80048; 84443; 85025